=== PATIENT | female | born 1965 | race Caucasian/White ===

== ENCOUNTER → 2017-01-03 | Outpatient (CLI) | payer OTHER ==
[~2017-01-03] MED LIST: ATV/1 PO; CHLO25CA10 PO; CLBCRM30 EXT; CLOB-85 TOP; CYAN100073 PO; CYAN100T PO; CYM/30 PO; DSY100 PO; DSY50 PO; DULO60CA44 PO; FLUT0.15 NAE; FLV1 PO; GABA-113 PO; LEVO25TA5 PO; MULTTAB5 PO; NALT50TA16 PO; NRN100 PO; POTA10TA32 PO; RANITAB6 PO
[2017-01-03 14:45] LABS: BASO % 0.6 %; BASO ABS # 0.04 K/uL (0-0.2); COMPLETE YES; EOS % 10.4 %; HEMATOCRIT 35.8 % (37-47); IG% 0.1 %; LYMPH % 29.5 %; LYMPH ABS # 1.98 K/uL (1.2-3.4); MEAN CELL VOLUME 86.1 fL (80-100); MEAN CORPUSCULAR HEMOGLOBIN 28.4 pg (25-34); MEAN PLATELET VOLUME 9.8 fL (7.4-10.4); MONO % 8.9 %; NEUT % 50.5 %; PLATELET COUNT 247 K/uL (130-400); RED BLOOD COUNT 4.16 M/uL (4.2-5.4); WHITE BLOOD COUNT 6.71 K/uL (4.8-10.8)
[2017-01-03 15:01] LABS: ALT/SGPT 25 U/L (12-78); BLOOD UREA NITROGEN 6 mg/dl (7-18); BUN/CREATININE RATIO 8.1 (10-20); CARBON DIOXIDE 29 mmol/L (21-32); CHLORIDE 104 mmol/L (98-107); CREATININE 0.75 mg/dl (0.60-1.20); GLUCOSE 104 mg/dl (70-99); POTASSIUM 4.2 mmol/L (3.5-5.1); SODIUM 139 mmol/L (136-145)
[2017-01-03 15:11] LABS: ALB/GLOB RATIO 1.1 (0.9-2); ALKALINE PHOSPHATASE 92 U/L (45-117); AST/SGOT 20 U/L (15-37)
== END | disposition home or self-care (01) ==
LOC: C.LAB1850 12:28
PROVIDERS: ATTEND Internal Medicine
DX: E03.9 Hypothyroidism, unspecified (principal); E55.9 Vitamin D deficiency, unspecified; G62.9 Polyneuropathy, unspecified; M21.961 Unspecified acquired deformity of right lower leg

== ENCOUNTER → 2017-01-07 | Outpatient (CLI) | payer OTHER | END | disposition home or self-care (01) | LOC: C.LAB 15:52 | DX: Z02.83 Encounter for blood-alcohol and blood-drug test (principal) ==

== ENCOUNTER → 2017-01-09 | Outpatient (CLI) | payer OTHER ==
--- NOTE | 2017-01-09 13:26 | DIAGNOSTIC IMAGING REPORT ---
Soft tissue neck ULTRASOUND HISTORY: Nodule mass COMPARISON: None. FINDINGS: Relatively large a radiographic area of isoechoic echogenicity measures approximate 14 x 3 cm. This is at the site of clinically palpable nodularity. It is suggestive of lipoma. IMPRESSION: Lipoma of the posterior neck Electronically signed by: Jalen Farah M.D. 01/09/2017 1:24 PM Dictated Date/Time: 01/09/2017 1:18 PM
== END | disposition home or self-care (01) ==
PROVIDERS: ATTEND Internal Medicine
DX: D17.0 Benign lipomatous neoplasm of skin and subcutaneous tissue of head, face and neck (principal)

== ENCOUNTER 2017-01-31 21:11 | Emergency (ER) | payer OTHER ==
[~2017-01-31] VITALS: Ht 165.1 cm; Wt 62.9 kg
[~2017-01-31 21:11] MED LIST changes: -ATV/1 PO; -CHLO25CA10 PO; -CYAN100073 PO; -CYM/30 PO; -DSY50 PO; -NRN100 PO; -RANITAB6 PO
[2017-01-31 21:29] VITALS: TEMP 36.8
[2017-01-31] MEDS ORDERED: SODIUM CHLORIDE 0.9% 1000ML 1,000 ML IV STA (21:53)
--- NOTE | 2017-01-31 21:54 | EMERGENCY ROOM VISIT NOTE ---
History Report prepared by Marcelloibtabatha: Zackery Carrera Under the Supervision of: Dr. Franky Vizcarra D.O. First contact with patient: 21:48 Chief Complaint: ALCOHOL OVERDOSE Stated Complaint: ALCOHOL Nursing Triage Summary: Arrived via ALS. Patient crying. Info received from EMS who received info from patients mother who is no longer able to care for patient. Patient has been in several rehabs and came back home to live with mother recently. Patient bought alcohol on friday and has not been out of her bedroom since. Patient appears to be intoxicated currently. History of Present Illness The patient is a 51 year old female who presents to the Emergency Room with complaints of an acute alcohol overdose that occurred tonight. Nursing notes indicate that the patient came to the ED because her mother can no longer take care of her. The patient has a history of alcoholism and has been in rehab numerous times. The patient refuses to answer further questions. History is limited secondary to noncooperation. Source of History: nursing staff History Limited By: other (noncooperation) Onset: tonight Position: other (global) Quality: other (alcohol overdose) Timing: other (acute) Review of Systems ROS is limited secondary to noncooperation. Past Medical & Surgical Medical Problems: (1) Alcohol use disorder (2) Alcoholism (3) Anxiety (4) Hypothyroidism (5) Major depressive disorder, recurrent episode with anxious distress (6) Neuropathy (7) Nicotine dependence (8) Psoriasis (9) Urinary tract infection (10) Vitamin D deficiency Family History FH: cancer FH: heart disease Hypertension Social History Smoking Status: Current Every Day Smoker Alcohol Use: heavy Marital Status: Occupation Status: unemployed Current/Historical Medications Unable to Obtain Active Prescriptions or Reported Meds Allergies Coded Allergies: Haloperidol (Verified Allergy, Severe, MAKES PT ACT OUT,EFFECTS PERSONALITY, 08/15/16) Lorazepam (Verified Allergy, Severe, AFFECTS THE WAY SHE ACTS, 08/15/16) Physical Exam Vital Signs Date Time Temp Pulse Resp B/P Pulse Ox O2 Delivery O2 Flow Rate FiO2 01/31/17 22:22 108 128/99 112 146/86 01/31/17 22:06 96 Room Air 01/31/17 22:06 95 Room Air 01/31/17 21:29 36.8 109 15 148/98 96 Room Air 01/31/17 21:27 103 Physical Exam GENERAL: Avoidant, nonconversant, noncooperative. Smells of alcohol. HENT: Normocephalic, atraumatic. Oropharynx unremarkable. EYES: Normal conjunctiva. Sclera non-icteric. NECK: Supple. No nuchal rigidity. FROM. No JVD. RESPIRATORY: Clear to auscultation. CARDIAC: Tachycardic, normal rhythm. Extremities warm and well perfused. Pulses equal. ABDOMEN: Soft, non-distended. No tenderness to palpation. No rebound or guarding. No masses. RECTAL: Deferred. MUSCULOSKELETAL: Chest examination reveals no tenderness. The back is symmetrical on inspection without obvious abnormality. There is no CVA tenderness to palpation. No joint edema. LOWER EXTREMITIES: Calves are equal size bilaterally and non-tender. No edema. No discoloration. NEURO: Normal sensorium. No sensory or motor deficits noted. SKIN: No rash or jaundice noted. Medical Decision & Procedures Laboratory Results 01/31/17 20:56 Red Blood Count 5.34, Mean Corpuscular Volume 83.1, Mean Corpuscular Hemoglobin 28.7, Mean Corpuscular Hemoglobin Concent 34.5, Mean Platelet Volume 8.4, Neutrophils (%) (Auto) 44.2, Lymphocytes (%) (Auto) 47.8, Monocytes (%) (Auto) 5.1, Eosinophils (%) (Auto) 1.2, Basophils (%) (Auto) 1.4, Neutrophils # (Auto) 4.35, Lymphocytes # (Auto) 4.71, Monocytes # (Auto) 0.50, Eosinophils # (Auto) 0.12, Basophils # (Auto) 0.14 01/31/17 20:56 Test 01/31/17 20:56 01/31/17 22:09 01/31/17 22:30 White Blood Count 9.85 K/uL (4.8-10.8) Red Blood Count 5.34 M/uL (4.2-5.4) Hemoglobin 15.3 g/dL (12.0-16.0) Hematocrit 44.4 % (37-47) Mean Corpuscular Volume 83.1 fL (80-100) Mean Corpuscular Hemoglobin 28.7 pg (25-34) Mean Corpuscular Hemoglobin Concent 34.5 g/dl (32-36) Platelet Count 309 K/uL (130-400) Mean Platelet Volume 8.4 fL (7.4-10.4) Neutrophils (%) (Auto) 44.2 % Lymphocytes (%) (Auto) 47.8 % Monocytes (%) (Auto) 5.1 % Eosinophils (%) (Auto) 1.2 % Basophils (%) (Auto) 1.4 % Neutrophils # (Auto) 4.35 K/uL (1.4-6.5) Lymphocytes # (Auto) 4.71 K/uL (1.2-3.4) Monocytes # (Auto) 0.50 K/uL (0.11-0.59) Eosinophils # (Auto) 0.12 K/uL (0-0.5) Basophils # (Auto) 0.14 K/uL (0-0.2) RDW Standard Deviation 49.0 fL (36.4-46.3) RDW Coefficient of Variation 16.3 % (11.5-14.5) Immature Granulocyte % (Auto) 0.3 % Immature Granulocyte # (Auto) 0.03 K/uL (0.00-0.02) Anion Gap 16.0 mmol/L (3-11) Est Creatinine Clear Calc Drug Dose 78.8 ml/min Estimated GFR () 105.3 Estimated GFR (Non- 90.8 BUN/Creatinine Ratio 14.5 (10-20) Calcium Level 8.9 mg/dl (8.5-10.1) Total Bilirubin 0.6 mg/dl (0.2-1) Direct Bilirubin 0.2 mg/dl (0-0.2) Aspartate Amino Transf (AST/SGOT) 26 U/L (15-37) Alanine Aminotransferase (ALT/SGPT) 22 U/L (12-78) Alkaline Phosphatase 124 U/L (45-117) Total Protein 8.0 gm/dl (6.4-8.2) Albumin 3.9 gm/dl (3.4-5.0) Bedside Glucose 82 mg/dl (70-90) Ethyl Alcohol mg/dL 320.0 mg/dl (0-3) Laboratory results reviewed by me Medications Administered Medications (Trade) Dose Ordered Sig/Gisselle Route Start Time Stop Time Status Last Admin Dose Admin Sodium Chloride (Nss 1000ml) 1,000 ml @ 999 mls/hr Q1H1M STAT IV 01/31/17 21:53 01/31/17 22:53 DC 01/31/17 22:31 999 MLS/HR ECG Indication: tachycardia Rate (beats per minute): 105 Rhythm: sinus tachycardia Findings: no acute ischemic change, no ectopy, other (normal axis normal intervals) ED Course 2149: The patient was evaluated in room A4b. A complete history and physical exam was performed. 2152: NSS 1000 ml @ 999 mls/hr. 0030: Patient was seen by the manager case management. She does not wish to go to rehab but is willing to see a drug and alcohol counselor. 0038: Per manager case management, the patient did not give permission to call her mother or . 0045: Checked on the patient and discussed her options. Medical Decision Differential diagnosis includes psychiatric, alcohol intoxication, alcohol abuse , drug abuse. Patient in no current distress no suicidal or homicidal ideation. Reassessment patient is now alert speaking to me has called her mother and her mother will take her back home. Patient will follow-up with alcohol rehabilitation counselor on Friday. Patient has been seen by Judith our manager case management Impression Primary Impression: Alcohol use disorder Additional Impressions: Alcohol abuse Alcohol use with intoxication Scribe Attestation The scribe's documentation has been prepared under my direction and personally reviewed by me in its entirety. I confirm that the note above accurately reflects all work, treatment, procedures, and medical decision making performed by me. Departure Information Dispostion Home / Self-Care Prescriptions Unable to Obtain Active Prescriptions or Reported Meds Referrals RV. Mobley MD (PCP) Patient Instructions Alcohol Abuse - [facility], Alcohol Intoxication - [facility], [facility] Health Problem Qualifiers
[2017-01-31 22:05] VITALS: Ht 165.1 cm; Wt 62.9 kg
[2017-01-31 22:06] VITALS: O2SAT 96
[2017-01-31 22:18] LABS: BASO % 1.4 %; BASO ABS # 0.14 K/uL (0-0.2); COMPLETE YES; EOS % 1.2 %; HEMATOCRIT 44.4 % (37-47); IG% 0.3 %; LYMPH % 47.8 %; LYMPH ABS # 4.71 K/uL (1.2-3.4); MEAN CELL VOLUME 83.1 fL (80-100); MEAN CORPUSCULAR HEMOGLOBIN 28.7 pg (25-34); MEAN CORPUSCULAR HGB CONC 34.5 g/dl (32-36); MEAN PLATELET VOLUME 8.4 fL (7.4-10.4); MONO % 5.1 %; NEUT % 44.2 %; PLATELET COUNT 309 K/uL (130-400); RED BLOOD COUNT 5.34 M/uL (4.2-5.4); WHITE BLOOD COUNT 9.85 K/uL (4.8-10.8)
[2017-01-31 22:23] LABS: BUN/CREATININE RATIO 14.5 (10-20); CREATININE 0.76 mg/dl (0.60-1.20); POTASSIUM 3.6 mmol/L (3.5-5.1)
[2017-01-31 22:54] LABS: CALCIUM 8.9 mg/dl (8.5-10.1)
[2017-02-01 01:13] VITALS: BP 139/91; PULSE 117; O2SAT 93
== END 2017-02-01 01:15 | disposition home or self-care (01) ==
LOC: EDBD 21:11 → C.EDA 21:12
DX: F10.129 Alcohol abuse with intoxication, unspecified (principal); Y90.8 Blood alcohol level of 240 mg/100 ml or more; R00.0 Tachycardia, unspecified; E03.9 Hypothyroidism, unspecified; F32.9 Major depressive disorder, single episode, unspecified; F41.9 Anxiety disorder, unspecified; F17.200 Nicotine dependence, unspecified, uncomplicated; Z87.440 Personal history of urinary (tract) infections; Z88.8 Allergy status to other drugs, medicaments and biological substances; Z80.9 Family history of malignant neoplasm, unspecified; Z82.49 Family history of ischemic heart disease and other diseases of the circulatory system

== ENCOUNTER 2017-06-13 21:22 | Inpatient (IN) | payer OTHER ==
[~2017-06-13] VITALS: Ht 167.6 cm; Wt 61.5 kg
[2017-06-13] MEDS ORDERED: LORAZEPAM 2 MG/ML 1 ML VIAL IV ONE ×2 (21:25)
--- NOTE | 2017-06-13 22:13 | EMERGENCY ROOM VISIT NOTE ---
History Report prepared by Eliot: August Rod Under the Supervision of: Dr. Franky Vizcarra D.O. First contact with patient: 22:04 Chief Complaint: MENTAL HEALTH EVALUATION Stated Complaint: ALCOHOL OVERDOSE/SUICIDAL STATEMENTS History of Present Illness The patient is a 51 year old female who presents to the Emergency Room for a mental health evaluation. This HPI is limited secondary to the patient's intoxication. She has a past medical history of alcoholism with a past 3 month stay in [facility]. Tonight, she had 3 glasses of chardonnay and asked her mother to take her to the ER. She wants to stop drinking because she believes that she is drinking too much and wants to drink all the time. She notes a suicidal ideation 1 year ago, but she denies any tonight as well as homicidal ideations. She denies any drug use. Source of History: patient History Limited By: intoxication Onset: this evening Position: other (Mental Health) Symptom Intensity: moderate (intoxication) Quality: other (Mental health evaluation) Timing: constant Note: She denies any homicidal ideation or suicidal ideation. Review of Systems ROS is limited secondary to the patient's intoxication. Past Medical & Surgical Medical Problems: (1) Alcohol use disorder (2) Alcoholism (3) Anxiety (4) Hypothyroidism (5) Major depressive disorder, recurrent episode with anxious distress (6) Neuropathy (7) Nicotine dependence (8) Psoriasis (9) Urinary tract infection (10) Vitamin D deficiency Family History FH: cancer FH: heart disease Hypertension Social History Smoking Status: Current Every Day Smoker Alcohol Use: heavy Marital Status: Occupation Status: unemployed Current/Historical Medications Unable to Obtain Active Prescriptions or Reported Meds Allergies Coded Allergies: Haloperidol (Verified Allergy, Severe, MAKES PT ACT OUT,EFFECTS PERSONALITY, 08/15/16) Lorazepam (Verified Allergy, Severe, AFFECTS THE WAY SHE ACTS, 08/15/16) Physical Exam Vital Signs Date Time Temp Pulse Resp B/P (MAP) Pulse Ox O2 Delivery O2 Flow Rate FiO2 06/14/17 02:38 95 18 138/71 96 Room Air 06/14/17 00:30 110 18 142/82 94 Room Air 06/13/17 21:37 89 06/13/17 21:33 37.0 97 14 148/103 94 Room Air Physical Exam GENERAL: Awake, alert, intoxicated-appearing, in no distress HENT: Normocephalic, atraumatic. Oropharynx unremarkable. EYES: Normal conjunctiva. Sclera non-icteric. NECK: Supple. No nuchal rigidity. FROM. No JVD. RESPIRATORY: Clear to auscultation. CARDIAC: Regular rate, normal rhythm. Extremities warm and well perfused. Pulses equal. ABDOMEN: Soft, non-distended. No tenderness to palpation. No rebound or guarding. No masses. RECTAL: Deferred. MUSCULOSKELETAL: Chest examination reveals no tenderness. The back is symmetrical on inspection without obvious abnormality. There is no CVA tenderness to palpation. No joint edema. LOWER EXTREMITIES: Calves are equal size bilaterally and non-tender. No edema. No discoloration. NEURO: Normal sensorium. No sensory or motor deficits noted. SKIN: No rash or jaundice noted. PSYCH: Notes SI 1 year ago, mildly anxious, does not make direct eye contact, alcohol on breath. Medical Decision & Procedures Laboratory Results 06/13/17 22:35 Red Blood Count 4.67, Mean Corpuscular Volume 88.4, Mean Corpuscular Hemoglobin 30.6, Mean Corpuscular Hemoglobin Concent 34.6, Mean Platelet Volume 9.8, Neutrophils (%) (Auto) 64.3, Lymphocytes (%) (Auto) 27.6, Monocytes (%) (Auto) 5.4, Eosinophils (%) (Auto) 0.8, Basophils (%) (Auto) 1.5, Neutrophils # (Auto) 3.08, Lymphocytes # (Auto) 1.32, Monocytes # (Auto) 0.26, Eosinophils # (Auto) 0.04, Basophils # (Auto) 0.07 06/13/17 22:35 Test 06/13/17 00:00 06/13/17 22:35 Urine Color YELLOW Urine Appearance CLOUDY (CLEAR) Urine pH 5.5 (4.5-7.5) Urine Specific Carbon 1.014 (1.000-1.030) Urine Protein 1+ (NEG) Urine Glucose (UA) NEG (NEG) Urine Ketones NEG (NEG) Urine Occult Blood NEG (NEG) Urine Nitrite NEG (NEG) Urine Bilirubin NEG (NEG) Urine Urobilinogen NEG (NEG) Urine Leukocyte Esterase NEG (NEG) Urine WBC (Auto) 1-5 /hpf (0-5) Urine RBC (Auto) 0-4 /hpf (0-4) Urine Hyaline Casts (Auto) 0 /lpf (0-5) Urine Epithelial Cells (Auto) >30 /lpf (0-5) Urine Bacteria (Auto) NEG (NEG) Urine Opiates Screen NEG (NEG) Urine Methadone, Qualitative NEG (NEG) Urine Barbiturates NEG (NEG) Urine Phencyclidine (PCP) Level NEG (NEG) Ur Amphetamine/Methamphetamine NEG (NEG) MDMA (Ecstasy) Screen NEG (NEG) Urine Benzodiazepines Screen NEG (NEG) Urine Cocaine Metabolite NEG (NEG) Urine Marijuana (THC) NEG (NEG) White Blood Count 4.79 K/uL (4.8-10.8) Red Blood Count 4.67 M/uL (4.2-5.4) Hemoglobin 14.3 g/dL (12.0-16.0) Hematocrit 41.3 % (37-47) Mean Corpuscular Volume 88.4 fL (80-100) Mean Corpuscular Hemoglobin 30.6 pg (25-34) Mean Corpuscular Hemoglobin Concent 34.6 g/dl (32-36) Platelet Count 94 K/uL (130-400) Mean Platelet Volume 9.8 fL (7.4-10.4) Neutrophils (%) (Auto) 64.3 % Lymphocytes (%) (Auto) 27.6 % Monocytes (%) (Auto) 5.4 % Eosinophils (%) (Auto) 0.8 % Basophils (%) (Auto) 1.5 % Neutrophils # (Auto) 3.08 K/uL (1.4-6.5) Lymphocytes # (Auto) 1.32 K/uL (1.2-3.4) Monocytes # (Auto) 0.26 K/uL (0.11-0.59) Eosinophils # (Auto) 0.04 K/uL (0-0.5) Basophils # (Auto) 0.07 K/uL (0-0.2) RDW Standard Deviation 59.7 fL (36.4-46.3) RDW Coefficient of Variation 18.6 % (11.5-14.5) Immature Granulocyte % (Auto) 0.4 % Immature Granulocyte # (Auto) 0.02 K/uL (0.00-0.02) Platelet Estimate DECREASED Red Blood Cell Morphology Unremarkable Anion Gap 14.0 mmol/L (3-11) Est Creatinine Clear Calc Drug Dose 90.2 ml/min Estimated GFR () 116.8 Estimated GFR (Non- 100.8 BUN/Creatinine Ratio 12.9 (10-20) Calcium Level 8.8 mg/dl (8.5-10.1) Total Bilirubin 0.7 mg/dl (0.2-1) Aspartate Amino Transf (AST/SGOT) 191 U/L (15-37) Alanine Aminotransferase (ALT/SGPT) 95 U/L (12-78) Alkaline Phosphatase 169 U/L (45-117) Total Protein 7.8 gm/dl (6.4-8.2) Albumin 3.9 gm/dl (3.4-5.0) Globulin 3.9 gm/dl (2.5-4.0) Albumin/Globulin Ratio 1.0 (0.9-2) Thyroid Stimulating Hormone (TSH) 1.770 uIu/ml (0.300-4.500) Salicylates Level 2.0 mg/dl (2.8-20) Acetaminophen Level < 2 ug/ml (10-30) Ethyl Alcohol mg/dL 371.0 mg/dl (0-3) Laboratory results reviewed by me Medications Administered Medications (Trade) Dose Ordered Sig/Gisselle Route Start Time Stop Time Status Last Admin Dose Admin Ondansetron HCl (Zofran Odt) 4 mg STK-MED ONCE .ROUTE 06/14/17 02:15 06/14/17 02:16 DC 06/14/17 02:16 4 MG ED Course 2204: The patient was evaluated in room A10. A complete history and physical exam was performed. 0215: Ordered Ondansetron HCl 4 mg .ROUTE 0630: The patient was signed out to Dr. Marlow at the change in shifts. Medical Decision Differential diagnoses include alcohol intoxication, alcohol abuse, substance abuse, dehydration, suicidal ideation, and psychiatric disorder. Remained stable condition throughout out emergency room evaluation 5:45 AM resting in no distress. Patient will be evaluated by the crisis counselor for further treatment Medication Reconcilliation Current Medication List: was personally reviewed by me Blood Pressure Screening Patient's blood pressure: Elevated blood pressure Blood pressure disposition: Elevated BP felt to be situational Impression Primary Impression: Alcohol use disorder Additional Impression: Depression Scribe Attestation The scribe's documentation has been prepared under my direction and personally reviewed by me in its entirety. I confirm that the note above accurately reflects all work, treatment, procedures, and medical decision making performed by me. Departure Information Dispostion Still a Patient Prescriptions Unable to Obtain Active Prescriptions or Reported Meds Referrals RV. Mobley MD (PCP) Forms HOME CARE DOCUMENTATION FORM, IMPORTANT VISIT INFORMATION Patient Instructions [facility] Health Problem Qualifiers
[2017-06-13 23:18] LABS: BUN/CREATININE RATIO 12.9 (10-20); CALCIUM 8.8 mg/dl (8.5-10.1); CREATININE 0.69 mg/dl (0.60-1.20); POTASSIUM 3.9 mmol/L (3.5-5.1)
[2017-06-13 23:27] LABS: HEMATOCRIT 41.3 % (37-47); MEAN CELL VOLUME 88.4 fL (80-100); MEAN CORPUSCULAR HEMOGLOBIN 30.6 pg (25-34); MEAN CORPUSCULAR HGB CONC 34.6 g/dl (32-36); MEAN PLATELET VOLUME 9.8 fL (7.4-10.4); PLATELET COUNT 94 K/uL (130-400); RED BLOOD COUNT 4.67 M/uL (4.2-5.4); WHITE BLOOD COUNT 4.79 K/uL (4.8-10.8)
[2017-06-13 23:29] LABS: THYROID STIMULATING HORMONE 1.77 uIu/ml (0.300-4.500)
[2017-06-13 23:30] LABS: ACETAMINOPHEN < 2 ug/ml (10-30); BASO % 1.5 %; BASO ABS # 0.07 K/uL (0-0.2); COMPLETE YES; EOS % 0.8 %; IG% 0.4 %; LYMPH % 27.6 %; LYMPH ABS # 1.32 K/uL (1.2-3.4); MONO % 5.4 %; NEUT % 64.3 %; PLT ESTIMATE DECREASED
[2017-06-13 23:58] LABS: MANUAL MICROSCOPIC REQUIRED? NO; REVIEW REQ? NO; URINE APPEARANCE CLOUDY (CLEAR); URINE BILIRUBIN NEG (NEG); URINE COLOR YELLOW; URINE EPITHELIAL CELL AUTO >30 /lpf (0-5); URINE NITRITE NEG (NEG); URINE PH 5.5 (4.5-7.5); URINE SPECIFIC GRAVITY 1.014 (1.000-1.030); UROBILINOGEN NEG (NEG); ZZUR CULT IF INDIC CLEAN CATCH NO
[2017-06-14 00:17] LABS: BENZODIAZEPINE, URINE NEG (NEG); COCAINE,URINE NEG (NEG); PHENCYCLIDINE, URINE NEG (NEG)
[2017-06-14] MEDS ORDERED: ONDANSETRON 4MG OD TAB ONE ×2 (02:15→06:29)
[2017-06-14] MEDS ORDERED: GABA-113 PO (07:37)
[2017-06-14] MEDS ORDERED: LORAZEPAM 1 MG TAB SL STA (07:40)
--- NOTE | 2017-06-14 08:13 | EMERGENCY ROOM VISIT NOTE ---
ED Visit Note First contact with patient: 07:40 51-year-old female with depression was signed off to me from Dr. Vizcarra at change of shift. I reexamined the patient at 08:00. The patient remains depressed but denies suicidal or homicidal ideation. The patient complains of nausea and anxiety. The patient was given Ativan and Zofran. Patient is awaiting further psychiatric evaluation and possible admission. The patient was reevaluated at 2:15. The patient is not suicidal or homicidal. She understands that she needs some help with alcohol and has agreed to a search for a rehabilitation program. The patient was signed out to Dr. Beltrán at change of shift.
[2017-06-14] MEDS ORDERED: ONDANSETRON 4MG OD TAB PO ONE (08:15)
[2017-06-14] MEDS ORDERED: NICOTINE 21 MG/24 HR TDSY ONE (11:14)
[2017-06-14] MEDS ORDERED: PROMETHAZINE HCL 25 MG TAB PO ONE (12:30)
[2017-06-14] MEDS ORDERED: ONDANSETRON 4 MG TAB PO ONE (15:15)
[2017-06-14] MEDS ORDERED: LORAZEPAM 2 MG/ML 1 ML VIAL IV ONE (15:23)
[2017-06-14] MEDS ORDERED: LORAZEPAM 2 MG/ML 1 ML VIAL IV STA (15:23)
[2017-06-14] MEDS ORDERED: MULTI-VITAMIN INFUSION INJ 10 ML, FoLIC ACID INJ 1 MG, THIAMINE HCL INJ 100 MG in SODIU... IV STA (15:53)
--- NOTE | 2017-06-14 15:53 | EMERGENCY ROOM VISIT NOTE ---
ED Visit Note This patient was signed out to me by Dr. Marlow on around 3 PM, at the end of his shift. The patient was awaiting placement at a alcohol and drug rehabilitation facility. The patient, shortly after he left had a tonic-clonic seizure. She was treated with 2 mg of IV Ativan. She was given a banana bag. She will be admitted to the medical service. I spoke with Dr. Leyva about the patient. The patient did not suffer any adverse consequence related to the seizure. She was not injured.
[2017-06-14] MEDS ORDERED: MAGNESIUM HYDROXIDE SUSP 30 ML UDC PO PRN (17:00)
[2017-06-14] MEDS ORDERED: ONDANSETRON INJ 2 MG/ML 2 ML VIAL IV PRN (17:00)
[2017-06-14] MEDS ORDERED: ALUMINUM/MAGNESIUM/SIMETH (MAALOX MAX) 30 ML UDC PO PRN (17:00)
[2017-06-14] MEDS ORDERED: POLYETHYLENE (MIRALAX) 17 GM PACK PO PRN (17:00)
--- NOTE | 2017-06-14 17:29 | History and Physical ---
History & Physical Date & Time of Service: Jun 14, 2017 at 17:09 Chief Complaint: Alcohol Overdose/Suicidal Statements Primary Care Physician: RV. Mobley MD History of Present Illness Source: patient 51 y/o F extensive Hx of ETOH abuse, hypothyroid, neuropathy and possible hep C and uterine CA. Transported to hospital at [facility] due to ETOH abuse, depression and reported suicidal ideation. The pt was assigned to mental health and had stayed in the ER for an extended period as placement was attempted. Several hours after arrival however, she had a witnessed generalized seizure. Admission to medicine was then requested. She denied any current medical issues aside form alcohol abuse and neuropathy. She is a poor historian. She does not recall having a seizure and denies any current symptoms. She admits depression but denies any suicidal ideation. Past Medical/Surgical History Medical Problems: (1) Alcoholism Status: Chronic (2) Anxiety Status: Chronic (3) Neuropathy Status: Chronic (4) Psoriasis Status: Chronic (5) Urinary tract infection Status: Resolved Family History FH: cancer FH: heart disease Hypertension Social History Smoking Status: Current Every Day Smoker Marital Status: Occupational Status: unemployed Allergies Coded Allergies: No Known Allergies (Unverified , 06/14/17) Home Medications Unable to Obtain Active Prescriptions or Reported Meds Review of Systems Constitutional: No fever, No chills, No sweats Eyes: No worsening of vision ENT: No hearing loss, No unusual epistaxis, No nasal symptoms Respiratory: No cough, No sputum, No wheezing Cardiovascular: No chest pain, No orthopnea, No PND Abdomen: No pain, No nausea, No vomiting Musculoskeletal: No joint pain Genitourinary - Female: No dysuria, No urinary frequency Neurologic: + problem reported (Witnessed weizure as above), No memory loss, No paralysis, No weakness Psychiatric: + depression symptoms, + anhedonism, + anxiety, + insomnia, + substance abuse Endocrine: No fatigue Hematologic / Lymphatic: No abnormal bleeding/bruising Integumentary: No rash Allergic / Immunologic: No environmental allergies Physical Exam Vital Signs Date Time Temp Pulse Resp B/P (MAP) Pulse Ox O2 Delivery O2 Flow Rate FiO2 06/14/17 16:30 109 18 131/89 94 Room Air 06/14/17 16:00 109 22 139/94 95 Room Air 06/14/17 15:26 106 18 175/98 99 Nasal Cannula 1.0 06/14/17 15:26 107 06/14/17 14:00 103 18 98 Room Air 06/14/17 12:11 105 20 122/82 99 Room Air 06/14/17 10:46 110 06/14/17 09:49 120 18 141/91 98 Room Air 06/14/17 06:35 80 18 125/76 99 Room Air 06/14/17 04:30 87 18 118/78 98 Room Air 06/14/17 02:38 95 18 138/71 96 Room Air 06/14/17 00:30 110 18 142/82 94 Room Air 06/13/17 21:37 89 06/13/17 21:33 37.0 97 14 148/103 94 Room Air General Appearance: WD/WN, no apparent distress Head: normocephalic Eyes: normal inspection ENT: normal ENT inspection, pharynx normal Neck: supple, no JVD Respiratory/Chest: chest non-tender, lungs clear, normal breath sounds Cardiovascular: regular rate, rhythm, no edema, no gallop Abdomen/GI: normal bowel sounds, non tender, soft Back: normal inspection, no CVA tenderness, no muscle spasm, normal range of motion Extremities/Musculoskelatal: normal inspection Neurologic/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: 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 tested, no motor/sensory deficits, alert, normal mood/affect, normal reflexes, oriented x 3 Skin: normal color, warm/dry, no rash Diagnostics Laboratory Results Results Past 24 Hours Test 06/13/17 22:35 06/14/17 15:29 06/14/17 17:05 Range/Units White Blood Count 4.79 4.8-10.8 K/uL Red Blood Count 4.67 4.2-5.4 M/uL Hemoglobin 14.3 12.0-16.0 g/dL Hematocrit 41.3 37-47 % Mean Corpuscular Volume 88.4 80-100 fL Mean Corpuscular Hemoglobin 30.6 25-34 pg Mean Corpuscular Hemoglobin Concent 34.6 32-36 g/dl Platelet Count 94 130-400 K/uL Mean Platelet Volume 9.8 7.4-10.4 fL Neutrophils (%) (Auto) 64.3 % Lymphocytes (%) (Auto) 27.6 % Monocytes (%) (Auto) 5.4 % Eosinophils (%) (Auto) 0.8 % Basophils (%) (Auto) 1.5 % Neutrophils # (Auto) 3.08 1.4-6.5 K/uL Lymphocytes # (Auto) 1.32 1.2-3.4 K/uL Monocytes # (Auto) 0.26 0.11-0.59 K/uL Eosinophils # (Auto) 0.04 0-0.5 K/uL Basophils # (Auto) 0.07 0-0.2 K/uL RDW Standard Deviation 59.7 36.4-46.3 fL RDW Coefficient of Variation 18.6 11.5-14.5 % Immature Granulocyte % (Auto) 0.4 % Immature Granulocyte # (Auto) 0.02 0.00-0.02 K/uL Platelet Estimate DECREASED Red Blood Cell Morphology Unremarkable Sodium Level 137 136-145 mmol/L Potassium Level 3.9 3.5-5.1 mmol/L Chloride Level 99 98-107 mmol/L Carbon Dioxide Level 24 21-32 mmol/L Anion Gap 14.0 3-11 mmol/L Blood Urea Nitrogen 9 7-18 mg/dl Creatinine 0.69 0.60-1.20 mg/dl Est Creatinine Clear Calc Drug Dose 90.2 ml/min Estimated GFR () 116.8 Estimated GFR (Non- 100.8 BUN/Creatinine Ratio 12.9 10-20 Random Glucose 99 70-99 mg/dl Calcium Level 8.8 8.5-10.1 mg/dl Total Bilirubin 0.7 0.2-1 mg/dl Aspartate Amino Transf (AST/SGOT) 191 15-37 U/L Alanine Aminotransferase (ALT/SGPT) 95 12-78 U/L Alkaline Phosphatase 169 45-117 U/L Total Protein 7.8 6.4-8.2 gm/dl Albumin 3.9 3.4-5.0 gm/dl Globulin 3.9 2.5-4.0 gm/dl Albumin/Globulin Ratio 1.0 0.9-2 Thyroid Stimulating Hormone (TSH) 1.770 0.300-4.500 uIu/ml Salicylates Level 2.0 2.8-20 mg/dl Acetaminophen Level < 2 10-30 ug/ml Ethyl Alcohol mg/dL 371.0 0-3 mg/dl Bedside Glucose 197 70-90 mg/dl Impression Assessment and Plan 51 y/o F extensive Hx of ETOH abuse, hypothyroid, neuropathy and possible hep C and uterine CA. Transported to hospital at [facility] due to ETOH abuse, depression and reported suicidal ideation. The pt was assigned to mental health and had stayed in the ER for an extended period as placement was attempted. Several hours after arrival however, she had a witnessed generalized seizure. Admission to medicine was then requested. She denied any current medical issues aside form alcohol abuse and neuropathy. She is a poor historian. She does not recall having a seizure and denies any current symptoms. She admits depression but denies any suicidal ideation. Per family, she has not complied with any medications recently 1) ETOH withdrawal with seizure. Pt placed on TID Librium, Ativan as needed. Will receive IVF, daily banana bag. Will likely need placement for inpatient therapy. We have restarted her Rosa Isela as abrupt cessation may have contributed to her withdrawal. 2) Suicidal ideation - as reported by family. Pt placed on 1 to 1 - mental health eval pending. 3) Hypothyroidism is reported on previous admission - TSH is WNL - can f/u as outpt. 4) Neuropathy - restarted Gabapentin at 100 TID 5) Reported uterine CA and Hep C per family - does not appear on previous records - will be screened and can f/u with PCP on discharge. 6) High glu - may be result of seizure - check A1c - Q6h POC without coverage requested as we have not placed glu in IVF and she is at risk of hypoglycemia. Full code - SCDs Total time for this admit including review of labs, meds, records - discussion with pt and ER attending - 34 min Level of Care Telemetry Resuscitation Status FULL RESUSCITATION VTE Prophylaxis VTE Risk Assessment Done? Y/N: Yes Risk Level: Low Given or contraindicated: SCD's
[2017-06-14 18:15] VITALS: BP 132/87; PULSE 106; TEMP 38.3; O2SAT 94
[2017-06-14 18:24] VITALS: BP 132/87; PULSE 106; TEMP 38.3; O2SAT 94; Ht 167.6 cm; Wt 61.5 kg
[2017-06-14] MEDS ORDERED: NSS + 20MEQ KCL 1000ML 1,000 ML IV SCH (19:00)
[2017-06-14] MEDS: LORAZEPAM 2 MG/ML 1 ML VIAL IV PRN ×2 (19:33→22:35)
[2017-06-14] MEDS ORDERED: IV FLUIDS COMPLETED PRN (20:30)
[2017-06-14] MEDS: CHLORDIAZEPOXIDE 10 MG CAP PO SCH (20:37)
[2017-06-14] MEDS: GABAPENTIN 100 MG CAP PO SCH (20:37)
[2017-06-14 22:58] VITALS: BP 128/93; PULSE 110; TEMP 37.1; O2SAT 95
[2017-06-15 03:07] VITALS: BP 127/83; PULSE 111; TEMP 37.3; O2SAT 96
[2017-06-15] MEDS ORDERED: GABAPENTIN 100 MG CAP PO STA (03:11)
[2017-06-15 07:04] VITALS: BP 132/90; PULSE 95; TEMP 37; O2SAT 97
[2017-06-15] MEDS: CHLORDIAZEPOXIDE 10 MG CAP PO SCH ×3 (07:29→20:19)
[2017-06-15] MEDS: GABAPENTIN 100 MG CAP PO SCH ×3 (07:30→20:09)
[2017-06-15] MEDS ORDERED: NICOTINE 21 MG/24 HR TDSY TD SCH (09:00)
[2017-06-15] MEDS: LORAZEPAM 2 MG/ML 1 ML VIAL IV PRN ×4 (09:27→23:40)
[2017-06-15] MEDS: ACETAMINOPHEN 325 MG TAB PO PRN ×2 (09:27→15:15)
[2017-06-15] MEDS: MULTI-VITAMIN INFUSION INJ 10 ML, THIAMINE HCL INJ 100 MG, FoLIC ACID INJ 1 MG in SODIU... IV SCH (09:30)
[2017-06-15] MEDS: NICOTINE 21 MG/24 HR TDSY TD SCH (10:10)
[2017-06-15 11:09] VITALS: BP 128/88; PULSE 97; TEMP 36.8; O2SAT 98
--- NOTE | 2017-06-15 13:31 | Progress Note ---
Subjective Date of Service: Jun 15, 2017. Subjective pt is awake and alert and non shakey , she is looking for support and help and agreeable to speak to psychiatry, no focal complaints requests nicotine patch Problem List Medical Problems: (1) Alcohol abuse Status: Acute (2) Alcohol use with intoxication Status: Acute (3) Alcoholism Status: Chronic (4) Anxiety Status: Chronic (5) Depression Status: Acute (6) Medication refill Status: Acute (7) Mood disorder Status: Acute (8) Psoriasis Status: Chronic (9) Suicidal thoughts Status: Acute Review of Systems Constitutional: No fever, No chills Respiratory: No cough, No shortness of breath, No dyspnea on exertion Cardiac: No chest pain, No orthopnea Objective Vital Signs Date Time Temp Pulse Resp B/P (MAP) Pulse Ox O2 Delivery O2 Flow Rate FiO2 06/15/17 07:04 37.0 95 16 132/90 (104) 97 Room Air 06/15/17 04:03 Room Air 06/15/17 03:07 37.3 111 16 127/83 (98) 96 Room Air 06/15/17 00:00 Room Air 06/14/17 22:58 37.1 110 16 128/93 (105) 95 Room Air 06/14/17 20:00 Room Air 06/14/17 18:24 38.3 106 22 132/87 94 Room Air 06/14/17 18:15 38.3 106 22 132/87 (102) 94 Room Air 06/14/17 17:49 101 19 143/88 95 06/14/17 16:30 109 18 131/89 94 Room Air 06/14/17 16:00 109 22 139/94 95 Room Air 06/14/17 15:26 106 18 175/98 99 Nasal Cannula 1.0 06/14/17 15:26 107 06/14/17 14:00 103 18 98 Room Air 06/14/17 12:11 105 20 122/82 99 Room Air 06/14/17 10:46 110 06/14/17 09:49 120 18 141/91 98 Room Air Physical Exam General Appearance: WD/WN, no apparent distress Eyes: PERRL, EOMI Respiratory/Chest: chest non-tender, lungs clear, normal breath sounds Cardiovascular: regular rate, rhythm, no murmur Abdomen: normal bowel sounds, non tender, soft Extremities: no pedal edema, no calf tenderness Laboratory Results Last 24 Hours Test 06/14/17 15:29 06/14/17 17:05 06/14/17 19:51 06/15/17 06:38 Bedside Glucose 197 mg/dl 106 mg/dl 133 mg/dl Assessment and Plan 51 y/o F extensive Hx of ETOH abuse here at request of family for help with detox and support during withdrawal, had seizure in ER, hypothyroid, neuropathy and possible hep C and uterine CA. ETOH withdrawal with seizure. TID Librium, Ativan for breakthru symptoms. gabapentin also Suicidal ideation - as reported by family. - mental health eval pending. pt 9/ 10 says she was just talking nonsense Hypothyroidism is reported on previous admission - TSH is WNL - f/u as outpt. Neuropathy - restarted Gabapentin at 100 TIDalso will help with withdrawal symptoms and Sz Reported uterine CA and Hep C per family - does not appear on previous records - will be screened High glu - may be result of seizure -follow
[2017-06-15 16:00] VITALS: BP 146/102; PULSE 89; TEMP 36.9; O2SAT 100
--- NOTE | 2017-06-15 17:17 | Psychiatric Progress Notes ---
Psychiatric Progress Note Date of Service Jun 15, 2017. Notes please see dictated consult Dx: etoh use d/o; etoh induced mood disorder, provisional recs: - pt denying SI but clearly poorly functioning at home and primacy intervention should be etoh cessation. she agrees to inpatient rehab but stipulates (rather illogically and concretely) that she will only go to a program in [place]. - minicog evidenced likely cognitive impairment and she showed visuospatial deficit and executive dysfunction on interview. may be consequence of long standing etoh abuse, post ictal delirium, or etoh withdrawal. - please consider AWSS gabapentin protocol
[2017-06-15 20:03] VITALS: BP 158/107; PULSE 102; TEMP 37; O2SAT 100
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
[2017-06-15] MEDS ORDERED: DiphenhydrAMINE HCL 50 MG/ML VIAL IV STA (23:04)
[2017-06-15 23:37] VITALS: BP 145/98; PULSE 84; TEMP 37.1; O2SAT 99
[2017-06-16] VITALS (7 sets, daily range): BP systolic 129–154; BP diastolic 90–107; PULSE 81–95; TEMP 36.3–37; O2SAT 99–100
[2017-06-16] MEDS: ACETAMINOPHEN 325 MG TAB PO PRN (00:31)
--- NOTE | 2017-06-16 04:56 | Progress Note ---
Progress Note Date of Service Jun 16, 2017. Progress Note Called by RN as patient is having right sided chest pain. EKG and CXR ordered before arrival. Subjective: Pain right sided only, severity 8/10, worse on inspiration and palpation, very painful when she moves, no radiation, no diaphoresis, shortness of breath (although struggling to take a deep breath in. Objective: Vital signs reviewed and within normal limits. She has not desaturated since the start of the pain. CTA, HS1+2, no murmurs, pain is reproducible on palpation (no skin changes or bruising) CXR - no pneumothorax, consolidation or rib fracture seen on the right side. Suspect old rib fractures on left side as patient not having pain there. EKG: similar to previous, RR 82 bpm Assessment & Plan MSK chest pain (likely as a result of trauma during seizure) - treat with ibuprofen, acetaminophen as required. Monitor - if getting worse consider workup for PE but currently no desaturation , calves SNT b/l and not tachycardic
[2017-06-16 06:18] LABS: HEMATOCRIT 31.5 % (37-47); MEAN CELL VOLUME 92.9 fL (80-100); MEAN CORPUSCULAR HEMOGLOBIN 30.1 pg (25-34); MEAN CORPUSCULAR HGB CONC 32.4 g/dl (32-36); MEAN PLATELET VOLUME 9.9 fL (7.4-10.4); PLATELET COUNT 30 K/uL (130-400); RED BLOOD COUNT 3.39 M/uL (4.2-5.4)
[2017-06-16 06:19] LABS: BASO % 0.8 %; BASO ABS # 0.02 K/uL (0-0.2); COMPLETE YES; EOS % 3.6 %; IG% 0.4 %; LARGE PLATELETS 3+; MONO % 6.4 %; NEUT % 60.8 %; PLT ESTIMATE DECREASED
[2017-06-16 06:29] LABS: BUN/CREATININE RATIO 6.7 (10-20); CALCIUM 8.3 mg/dl (8.5-10.1); CREATININE 0.86 mg/dl (0.60-1.20); POTASSIUM 3.3 mmol/L (3.5-5.1)
--- NOTE | 2017-06-16 06:34 | DIAGNOSTIC IMAGING REPORT ---
CHEST ONE VIEW PORTABLE CLINICAL HISTORY: Atypical chest pain COMPARISON STUDY: 08/15/2016 FINDINGS: The cardiac and mediastinal contours are normal. There is no evidence of focal pulmonary consolidation. There is no evidence of failure. No pleural effusions are visualized.[Old left-sided rib fractures are evident. IMPRESSION: No active disease in the chest. Electronically signed by: Blas Schuler M.D. 06/16/2017 6:33 AM Dictated Date/Time: 06/16/2017 6:32 AM
--- NOTE | 2017-06-16 06:47 | DIAGNOSTIC IMAGING REPORT ---
RIGHT RIBS UNILATERAL 4 VIEWS CLINICAL HISTORY: Right-sided rib pain COMPARISON STUDY: No previous studies for comparison. FINDINGS: There is acute fracture of the right ninth posterior lateral rib. There is a right second rib deformity which likely is old. Old healed fractures of the right 10th and 11th and 12th ribs are also evident. No pneumothorax is visualized. There are upper abdominal calcifications. The distribution raises the possibility of chronic pancreatitis. IMPRESSION: 1. Acute fracture of the right ninth rib. No evidence of pneumothorax. 2. Upper abdominal calcifications is a distribution raising the possibility of chronic pancreatitis. Electronically signed by: Blas Schuler M.D. 06/16/2017 6:46 AM Dictated Date/Time: 06/16/2017 6:42 AM
[2017-06-16 06:49] LABS: ESTIMATED AVERAGE GLUCOSE 108 mg/dl; HA1C FLAG Normal (Normal)
--- NOTE | 2017-06-16 08:14 | Hospitalist Progress Note ---
Hospitalist Progress Note Date of Service Jun 16, 2017. (Alba Fall, CECIL) Subjective Pt evaluation today including: conversation w/ patient, physical exam, chart review, lab review, review of studies, review of inpatient medication list Patient seen and evaluated. NSR with occ. PVCs on monitor. No further seizure activity or anxiousness/tremors. When she wakes up she answers appropriately and verbalizes no needs. Reports that the CP from this AM is better but more on her side. She easily falls back asleep. Possibly related to Librium? Would like to go to [place] for rehab. Additional Comments: Limited ROS due to falling asleep. Reports R rib/side pain. Denies N/V. (Alba Fall, CECIL) Medications Current Inpatient Medications Medications (Trade) Dose Ordered Sig/Gisselle Route Start Time Stop Time Status Last Admin Dose Admin Gabapentin (Neurontin Cap) 100 mg TID PO 06/14/17 21:00 07/14/17 20:59 06/16/17 09:32 100 MG Acetaminophen (Tylenol Tab) 650 mg Q4H PRN PO 06/14/17 17:00 07/14/17 16:59 06/16/17 00:31 650 MG Al Hydrox/Mg Hydrox/Simethicone (Maalox Max Susp) 15 ml Q4H PRN PO 06/14/17 17:00 07/14/17 16:59 06/14/17 22:35 15 ML Magnesium Hydroxide (Milk Of Magnesia Susp) 30 ml Q12H PRN PO 06/14/17 17:00 07/14/17 16:59 Ondansetron HCl (Zofran Inj) 4 mg Q6H PRN IV 06/14/17 17:00 07/14/17 16:59 Polyethylene (Miralax Powder Packet) 17 gm DAILY PRN PO 06/14/17 17:00 07/14/17 16:59 Lorazepam (Ativan Inj) 1 mg Q2H PRN IV 06/14/17 17:00 07/14/17 16:59 06/15/17 23:40 1 MG Lorazepam (Ativan Inj) 2 mg Q2H PRN IV 06/14/17 17:00 07/14/17 16:59 06/15/17 20:19 2 MG Multivitamins 10 ml/Thiamine HCl 100 mg/Folic Acid 1 mg/Sodium Chloride 1,011.2 ml @ 200 mls/ hr DAILY IV 06/15/17 09:00 07/15/17 08:59 06/16/17 09:33 200 MLS/HR Miscellaneous (Iv Fluids Completed) 1 ea PRN PRN N/A 06/14/17 20:30 06/14/18 20:29 Nicotine (Nicoderm Cq 21MG Patch) 1 patch QAM TD 06/15/17 09:45 07/15/17 09:44 06/16/17 09:33 1 PATCH Miscellaneous (Remove Nicoderm Patch) 1 ea HS N/A 06/15/17 21:00 07/15/17 20:59 06/15/17 20:19 1 EA Chlordiazepoxide (Librium Cap) 10 mg BID PO 06/16/17 21:00 07/14/17 20:59 UNV (Alba Fall PA-C) Objective Vital Signs Date Time Temp Pulse Resp B/P (MAP) Pulse Ox O2 Delivery O2 Flow Rate FiO2 06/16/17 07:36 36.6 95 20 140/97 (111) 99 Room Air 06/16/17 04:00 Room Air 06/16/17 03:56 37.0 83 17 129/93 (105) 99 Room Air 06/16/17 00:01 Room Air 06/15/17 23:37 37.1 84 17 145/98 (114) 99 Room Air 06/15/17 20:03 37.0 102 18 158/107 (124) 100 Room Air 06/15/17 20:00 Room Air 06/15/17 16:00 36.9 89 18 146/102 (117) 100 Room Air 06/15/17 16:00 Room Air 06/15/17 12:00 Room Air 06/15/17 11:09 36.8 97 20 128/88 (101) 98 Room Air (Alba Fall PA-C) Physical Exam General Appearance: no apparent distress Eyes: sclerae normal ENT: hearing grossly normal Neck: supple, no JVD, trachea midline Respiratory/Chest: lungs clear, normal breath sounds, no respiratory distress, no accessory muscle use Cardiovascular: regular rate, rhythm, no gallop, no murmur Abdomen: normal bowel sounds, non tender, soft Neurologic/Psychiatric: alert, oriented x 3, + pertinent finding (sleepy) Skin: normal color, warm/dry (Alba Fall PA-C) Laboratory Results Last 24 Hours Test 06/16/17 05:23 White Blood Count 2.50 K/uL Red Blood Count 3.39 M/uL Hemoglobin 10.2 g/dL Hematocrit 31.5 % Mean Corpuscular Volume 92.9 fL Mean Corpuscular Hemoglobin 30.1 pg Mean Corpuscular Hemoglobin Concent 32.4 g/dl Platelet Count 30 K/uL Mean Platelet Volume 9.9 fL Neutrophils (%) (Auto) 60.8 % Lymphocytes (%) (Auto) 28.0 % Monocytes (%) (Auto) 6.4 % Eosinophils (%) (Auto) 3.6 % Basophils (%) (Auto) 0.8 % Neutrophils # (Auto) 1.52 K/uL Lymphocytes # (Auto) 0.70 K/uL Monocytes # (Auto) 0.16 K/uL Eosinophils # (Auto) 0.09 K/uL Basophils # (Auto) 0.02 K/uL RDW Standard Deviation 59.2 fL RDW Coefficient of Variation 17.6 % Immature Granulocyte % (Auto) 0.4 % Immature Granulocyte # (Auto) 0.01 K/uL Platelet Estimate DECREASED Large Platelets 3+ Sodium Level 140 mmol/L Potassium Level 3.3 mmol/L Chloride Level 106 mmol/L Carbon Dioxide Level 25 mmol/L Anion Gap 9.0 mmol/L Blood Urea Nitrogen 6 mg/dl Creatinine 0.86 mg/dl Est Creatinine Clear Calc Drug Dose 72.4 ml/min Estimated GFR () 90.7 Estimated GFR (Non- 78.2 BUN/Creatinine Ratio 6.7 Random Glucose 229 mg/dl Calcium Level 8.3 mg/dl Total Bilirubin 1.0 mg/dl Direct Bilirubin 0.4 mg/dl Aspartate Amino Transf (AST/SGOT) 133 U/L Alanine Aminotransferase (ALT/SGPT) 85 U/L Alkaline Phosphatase 144 U/L Total Protein 6.2 gm/dl Albumin 3.1 gm/dl (Alba Fall PA-C) Assessment and Plan Ms. Chiu is a 51 y/o female with PMHx of ETOH Abuse with request for detox and withdrawal support, Hypothyroidism, Neuropathy, Possible Hep C, and Possible Uterine CA. Had witnessed withdrawal seizure in ED ETOH Withdrawal with Seizure: - Daily banana bag - Librium 10 mg BID and taper down with Ativan PRN Suicidal Ideation: - Currently denying SI Thrombocytopenia: - Platelets dropped to 30 with repeat 38 - denies known issues with this - No active bleeding, petechiae, or purpura observed - Possibly from ETOH/Liver disease - no U/S present for liver evaluation - is anemic but fits normocytic/normochromic but given ETOH use may be B12/folate deficiency Hypothyroidism: - Seen on previous admission - TSH now WNL - monitor as outpatient Neuropathy: - Gabapentin 100 mg TID Hyperglycemia: - Random glucose 229 today with A1c 5.4 - continue to monitor DVT Prophylaxis: No chemical means given thrombocytopenia Code Status: FULL RESUSCITATION Disposition: - Per behavioral health - patient now stating she would like to return home - is poorly functioning at home - [address] [facility] stay due to: other (ETOH rehab) Discharge planning: other (ETOH rehab) (Alba Fall, PADeirdreC) Reviewed: Pt Seen/Exam by Me (Trista Swartz, ) History Pt is very anxious and paces the room per nursing. Pt denies feeling any soft of withdrawal. Tolerating PO without issue. Pt had no issues with inpt rehab in [place] during our discussion, however seen by CM just after and is now stating that she wants to go home Agree with HPI/ROS as noted. (Trista Swartz, DO) General Appearance: WD/WN, no apparent distress Respiratory: normal breath sounds, no respiratory distress Cardiovascular: normal peripheral pulses, regular rate, rhythm Gastrointestinal: non tender, soft Neurologic/Psychiatric: alert, oriented x 3 Skin Characteristics: normal color, warm/dry (Trista Swartz, ) Assessment/Plan Agree with plan as outlined above Alcohol related seizures, has not had any since Pt initially requested inpt rehab in [place], however had declined this to CM after agreeing to it with me just prior Psych feels that if pt is not agreeable to inpt rehab, she will need to have inpt psych tx (Trista Swartz, DO)
[2017-06-16] MEDS ORDERED: POTASSIUM CHLORIDE 10 MEQ TABCR PO ONE (08:45)
--- NOTE | 2017-06-16 09:14 | Psychiatric Progress Notes ---
Psychiatric Progress Note Date of Service Jun 16, 2017. Notes ID: Patient reviewed with liaison nurse. Reviewed initial consultation by Dr. Sharma dated 06/15 and 302 petitioning statement no chart from medic. CC: "I just want to go home" HPI: Reviewed with patient that she had made suicidal statements in the context of intoxication and that a decision will need to be made re: disposition when she is medically cleared. Currently her H&H and platelets have dropped from admission and she remains on Librium. Reviewed with patient Dr. Sharma's recommendation for inpatient ETOH rehab and she is not agreeable to that at this time. Reviewed with her that if she is not being discharged to a structured inpatient treatment program, team recommendation will likely be for a few days of inpatient monitoring on a psychiatry unit, preferably on a voluntary commitment. She agains denies SI and shows no evidence of cutting on her arms (old scar). ROS: denies tremors/anxiety, sleep was disrupted, taking PO Vital Signs Past 12 Hours Date Time Temp Pulse Resp B/P (MAP) Pulse Ox O2 Delivery O2 Flow Rate FiO2 06/16/17 07:36 36.6 95 20 140/97 (111) 99 Room Air 06/16/17 04:00 Room Air 06/16/17 03:56 37.0 83 17 129/93 (105) 99 Room Air 06/16/17 00:01 Room Air 06/15/17 23:37 37.1 84 17 145/98 (114) 99 Room Air MSE: alert, somewhat guarded, affect appears depressed, disheveled, minimizing her drinking and the fact she seized. Indifference re: finding out she has a rib fracture, unsure if fell or bumped into counter. Thoughts processes are concrete. 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 There is no evidence of psychosis. Current Inpatient Medications Medications (Trade) Dose Ordered Sig/Gisselle Route Start Time Stop Time Status Last Admin Dose Admin Gabapentin (Neurontin Cap) 100 mg TID PO 06/14/17 21:00 07/14/17 20:59 06/15/17 20:09 100 MG Acetaminophen (Tylenol Tab) 650 mg Q4H PRN PO 06/14/17 17:00 07/14/17 16:59 9/11/17 00:31 650 MG Al Hydrox/Mg Hydrox/Simethicone (Maalox Max Susp) 15 ml Q4H PRN PO 06/14/17 17:00 07/14/17 16:59 06/14/17 22:35 15 ML Magnesium Hydroxide (Milk Of Magnesia Susp) 30 ml Q12H PRN PO 06/14/17 17:00 07/14/17 16:59 Ondansetron HCl (Zofran Inj) 4 mg Q6H PRN IV 06/14/17 17:00 07/14/17 16:59 Polyethylene (Miralax Powder Packet) 17 gm DAILY PRN PO 06/14/17 17:00 07/14/17 16:59 Chlordiazepoxide (Librium Cap) 10 mg TID PO 06/14/17 21:00 07/14/17 20:59 06/15/17 20:19 10 MG Lorazepam (Ativan Inj) 1 mg Q2H PRN IV 06/14/17 17:00 07/14/17 16:59 06/15/17 23:40 1 MG Lorazepam (Ativan Inj) 2 mg Q2H PRN IV 06/14/17 17:00 07/14/17 16:59 06/15/17 20:19 2 MG Multivitamins 10 ml/Thiamine HCl 100 mg/Folic Acid 1 mg/Sodium Chloride 1,011.2 ml @ 200 mls/ hr DAILY IV 06/15/17 09:00 07/15/17 08:59 06/15/17 09:30 200 MLS/HR Miscellaneous (Iv Fluids Completed) 1 ea PRN PRN N/A 06/14/17 20:30 06/14/18 20:29 Nicotine (Nicoderm Cq 21MG Patch) 1 patch QAM TD 06/15/17 09:45 07/15/17 09:44 06/15/17 10:10 1 PATCH Miscellaneous (Remove Nicoderm Patch) 1 ea HS N/A 06/15/17 21:00 07/15/17 20:59 06/15/17 20:19 1 EA Dx: etoh use d/o; etoh induced mood disorder recs: - pt denying SI but clearly poorly functioning at home and primacy intervention should be etoh cessation. She is inconsistent regarding going to rehab as says "this is rehab", reviewed that she is being detox'd on telemetry. I do not anticipate patient would be medically cleared today given review of labs. She is agreeable to our service communicating with her mother as family input important to determination of whether or not she is ultimately commitable. She should not be allowed to leave the hospital AMA as 302 petition remains on chart and dispo uncertain.
[2017-06-16] MEDS: CHLORDIAZEPOXIDE 10 MG CAP PO SCH ×2 (09:32→19:45)
[2017-06-16] MEDS: GABAPENTIN 100 MG CAP PO SCH ×3 (09:32→19:46)
[2017-06-16] MEDS: MULTI-VITAMIN INFUSION INJ 10 ML, THIAMINE HCL INJ 100 MG, FoLIC ACID INJ 1 MG in SODIU... IV SCH (09:33)
[2017-06-16] MEDS: NICOTINE 21 MG/24 HR TDSY TD SCH (09:33)
[2017-06-16 09:50] LABS: HEMATOCRIT 31.5 % (37-47); MEAN CELL VOLUME 93.2 fL (80-100); MEAN CORPUSCULAR HEMOGLOBIN 30.2 pg (25-34); MEAN CORPUSCULAR HGB CONC 32.4 g/dl (32-36); RED BLOOD COUNT 3.38 M/uL (4.2-5.4); WHITE BLOOD COUNT 2.52 K/uL (4.8-10.8)
[2017-06-16 09:53] LABS: MEAN PLATELET VOLUME 11.2 fL (7.4-10.4); PLATELET COUNT 38 K/uL (130-400)
[2017-06-16 10:03] LABS: INR 0.9 (0.9-1.1)
[2017-06-16] MEDS: LORAZEPAM 2 MG/ML 1 ML VIAL IV PRN (13:58)
[2017-06-16] MEDS ORDERED: NURSING VERBAL MED ORDER ONE (17:30)
[2017-06-16] MEDS ORDERED: LOPERAMIDE HCL 2 MG CAP PO SCH (17:30)
[2017-06-17] MEDS ORDERED: LORAZEPAM INJ 2 MG in SYRINGE 1 ML IV PRN (00:30)
[2017-06-17] MEDS: ACETAMINOPHEN 325 MG TAB PO PRN ×3 (00:32→13:31)
[2017-06-17] MEDS: LORAZEPAM INJ 1 MG in SYRINGE 0.5 ML IV PRN ×2 (00:39→20:02)
[2017-06-17 07:37] LABS: HEMATOCRIT 35.3 % (37-47); MEAN CELL VOLUME 93.4 fL (80-100); MEAN CORPUSCULAR HEMOGLOBIN 29.9 pg (25-34); MEAN PLATELET VOLUME 10.1 fL (7.4-10.4); PLATELET COUNT 68 K/uL (130-400); RED BLOOD COUNT 3.78 M/uL (4.2-5.4)
[2017-06-17 08:08] LABS: BUN/CREATININE RATIO 8.4 (10-20); CALCIUM 9.5 mg/dl (8.5-10.1); CREATININE 0.63 mg/dl (0.60-1.20); POTASSIUM 3.5 mmol/L (3.5-5.1)
[2017-06-17] MEDS: GABAPENTIN 100 MG CAP PO SCH ×3 (08:22→19:59)
[2017-06-17] MEDS: CHLORDIAZEPOXIDE 10 MG CAP PO SCH ×2 (08:23→19:59)
[2017-06-17] MEDS: NICOTINE 21 MG/24 HR TDSY TD SCH (08:23)
[2017-06-17 08:29] VITALS: BP 117/84; PULSE 89; TEMP 36.4; O2SAT 99
[2017-06-17] MEDS: MULTI-VITAMIN INFUSION INJ 10 ML, THIAMINE HCL INJ 100 MG, FoLIC ACID INJ 1 MG in SODIU... IV SCH (09:58)
--- NOTE | 2017-06-17 14:58 | Hospitalist Progress Note ---
Hospitalist Progress Note Date of Service Jun 17, 2017. (Alba Fall PA-C) Subjective Pt evaluation today including: conversation w/ patient, physical exam, chart review, lab review, review of studies, conversation w/ curriculum consultant (Psych liasion ), review of inpatient medication list Patient seen and evaluated. No acute events overnight. Ambulating halls and verbalizes no complaints. Appears calm, denies anxiety, and is without tremor. No seizure activity noted. Had a long conversation about care outside of the hospital. Is still adamant about no ETOH rehab. Expresses understanding that she has not been taking care of herself and hasn't been eating well at home. She denies SI. States she feels well and understands drinking is a problem and would like to stop. Patient is competent to make decisions for herself. She does have a POA and co- POA who want her to have treatment. Discussed with patient that she should discuss with her family about options if they are supportive. Unsure if she has good relationships with her family. Did ask the patient if she would like me to talk to her family and give them an update and she stated "I will have to think about it". Constitutional: No fever, No chills, No fatigue Respiratory: No shortness of breath Cardiovascular: No chest pain Abdomen: No pain, No nausea, No vomiting, No diarrhea, No constipation Female : No dysuria Psychiatric: + substance abuse, No anxiety Heme: No abnormal bleeding/bruising Skin: No rash, No bleeding (Alba Fall, SKYLERC) Medications Current Inpatient Medications Medications (Trade) Dose Ordered Sig/Gisselle Route Start Time Stop Time Status Last Admin Dose Admin Gabapentin (Neurontin Cap) 100 mg TID PO 06/14/17 21:00 07/14/17 20:59 06/17/17 13:33 100 MG Acetaminophen (Tylenol Tab) 650 mg Q4H PRN PO 06/14/17 17:00 07/14/17 16:59 06/17/17 13:31 650 MG Al Hydrox/Mg Hydrox/Simethicone (Maalox Max Susp) 15 ml Q4H PRN PO 06/14/17 17:00 07/14/17 16:59 06/14/17 22:35 15 ML Magnesium Hydroxide (Milk Of Magnesia Susp) 30 ml Q12H PRN PO 06/14/17 17:00 07/14/17 16:59 Ondansetron HCl (Zofran Inj) 4 mg Q6H PRN IV 06/14/17 17:00 07/14/17 16:59 Polyethylene (Miralax Powder Packet) 17 gm DAILY PRN PO 06/14/17 17:00 07/14/17 16:59 Lorazepam (Ativan Inj) 1 mg Q2H PRN IV 06/14/17 17:00 07/14/17 16:59 06/15/17 23:40 1 MG Lorazepam (Ativan Inj) 2 mg Q2H PRN IV 06/14/17 17:00 07/14/17 16:59 06/16/17 13:58 2 MG Multivitamins 10 ml/Thiamine HCl 100 mg/Folic Acid 1 mg/Sodium Chloride 1,011.2 ml @ 200 mls/ hr DAILY IV 06/15/17 09:00 07/15/17 08:59 06/17/17 09:58 200 MLS/HR Miscellaneous (Iv Fluids Completed) 1 ea PRN PRN N/A 06/14/17 20:30 06/14/18 20:29 Nicotine (Nicoderm Cq 21MG Patch) 1 patch QAM TD 06/15/17 09:45 07/15/17 09:44 06/17/17 08:23 1 PATCH Miscellaneous (Remove Nicoderm Patch) 1 ea HS N/A 06/15/17 21:00 07/15/17 20:59 06/16/17 21:26 1 EA Chlordiazepoxide (Librium Cap) 10 mg BID PO 06/16/17 20:00 07/14/17 20:59 06/17/17 08:23 10 MG Lorazepam 1 mg/ Syringe 1 ml @ 1 mls/min Q2H PRN IV 06/17/17 00:30 07/17/17 00:29 06/17/17 00:39 1 MLS/MIN Lorazepam 2 mg/ Syringe 2 ml @ 1 mls/min Q2H PRN IV 06/17/17 00:30 07/17/17 00:29 (Alba Fall, CECIL) Objective Vital Signs Date Time Temp Pulse Resp B/P (MAP) Pulse Ox O2 Delivery O2 Flow Rate FiO2 06/17/17 10:29 Room Air 06/17/17 08:29 36.4 89 16 117/84 (95) 99 Room Air 06/17/17 00:00 Room Air 06/16/17 23:19 36.4 84 18 140/90 (107) 100 06/16/17 17:32 36.3 85 16 141/93 (109) 100 Room Air 06/16/17 17:09 36.4 81 18 100 1.0 06/16/17 16:00 Room Air 06/16/17 15:34 36.4 81 18 154/107 (123) 100 Room Air (Alba Fall PA-C) Physical Exam General Appearance: no apparent distress, + thin Eyes: sclerae normal ENT: hearing grossly normal Neck: supple, no JVD, trachea midline Respiratory/Chest: lungs clear, normal breath sounds, no respiratory distress, no accessory muscle use Cardiovascular: regular rate, rhythm, no gallop, no murmur Abdomen: normal bowel sounds, non tender, soft Extremities: no pedal edema Neurologic/Psychiatric: alert, oriented x 3 Skin: normal color, warm/dry, no rash (Alba Fall, SKYLERC) Laboratory Results Last 24 Hours Test 06/17/17 06:58 White Blood Count 4.00 K/uL Red Blood Count 3.78 M/uL Hemoglobin 11.3 g/dL Hematocrit 35.3 % Mean Corpuscular Volume 93.4 fL Mean Corpuscular Hemoglobin 29.9 pg Mean Corpuscular Hemoglobin Concent 32.0 g/dl RDW Standard Deviation 59.1 fL RDW Coefficient of Variation 17.3 % Platelet Count 68 K/uL Mean Platelet Volume 10.1 fL Sodium Level 141 mmol/L Potassium Level 3.5 mmol/L Chloride Level 109 mmol/L Carbon Dioxide Level 26 mmol/L Anion Gap 6.0 mmol/L Blood Urea Nitrogen 5 mg/dl Creatinine 0.63 mg/dl Est Creatinine Clear Calc Drug Dose 98.8 ml/min Estimated GFR () 120.4 Estimated GFR (Non- 103.9 BUN/Creatinine Ratio 8.4 Random Glucose 106 mg/dl Calcium Level 9.5 mg/dl (Alba Fall PA-C) Assessment and Plan Ms. Chiu is a 51 y/o female with PMHx of ETOH Abuse with request for detox and withdrawal support, Hypothyroidism, Neuropathy, Possible Hep C, and Possible Uterine CA. Had witnessed withdrawal seizure in ED ETOH Withdrawal with Seizure: - Daily banana bag - Librium 10 mg BID and taper down with Ativan PRN Suicidal Ideation: - Currently denying SI Pancytopenic: - Platelets slowly improving - No active bleeding, petechiae, or purpura observed - Likely from ETOH/Liver disease - no U/S present for liver evaluation - is anemic but fits normocytic/normochromic but given ETOH use may be B12/folate deficiency Hypothyroidism: - Seen on previous admission - TSH now WNL - monitor as outpatient Neuropathy: - Gabapentin 100 mg TID Hyperglycemia: - Random glucose 229 today with A1c 5.4 - continue to monitor DVT Prophylaxis: No chemical means given thrombocytopenia Code Status: FULL RESUSCITATION Disposition: - Medically is optimal for D/C with recheck CBC in next few days - Socially - patient refuses inpatient ETOH rehab and is not suicidal and is competent to make decisions but family requesting treatment Discharge planning: uncertain (Alba Fall, PADeirdreC) Reviewed: Pt Seen/Exam by Me (Trista Swartz, ) History Pt is feeling much improved. She has been ambulating in the halls all day and "eating like a pig". No further diarrhea. No shaking. Anxiety is better. "I' ve got it together, girl." Denies that her SI threats on admission were of true intent. Does not want to pursue inpt rehab due to perception that it did not help her in the past. Does not feel she needs inpt psych care. (Trista Swartz, DO) General Appearance: WD/WN, no apparent distress Respiratory: normal breath sounds, no respiratory distress Cardiovascular: normal peripheral pulses, regular rate, rhythm Gastrointestinal: non tender, soft Extremities: non-tender, no pedal edema Neurologic/Psychiatric: alert, normal mood/affect, oriented x 3 Skin Characteristics: normal color, warm/dry (Trista Swartz, ) Assessment/Plan Agree with plan as outlined above Alcohol related seizures, has not had any since Pt initially requested inpt rehab in [place], however now declines this and inpt psych tx Psych is assessing pt in the AM Diarrhea yesterday has resolved, cdiff neg Pt advised that only 1 person can be designated POA and that the most recently signed paperwork is that which will be honored. Requesting new forms and nursing to provide. Advised her to discuss this with her sister and mother so that people are aware of status. (Trista Swartz, DO)
[2017-06-17 15:07] VITALS: BP 139/98; PULSE 78; TEMP 36.8; O2SAT 99
--- NOTE | 2017-06-17 18:39 | Psychiatric Progress Notes ---
Psychiatric Progress Note Date of Service Jun 17, 2017. Notes ID: Patient reviewed with liaison nurse. Reviewed initial consultation by Dr. Sharma dated 06/15 and 302 petitioning statement no chart from medic. CC: "I need to move away from my family" HPI: Days on her spoke with patient's family. Patient's mother is not willing to have patient return home. Patient continues to be unwilling to agree to our recommendation of inpatient ETOH rehab. Patient continues to deny suicidal ideation. She denies any history of suicide attempts. She does admit that she does not recall things that happened when she is intoxicated. Patient reports that she had seen Dr. Parra for psychiatric treatment however she does not remember the last time she was there and does not have a follow-up appointment. Patient reports that he prescribed gabapentin. She agreed to sign a release for Dr. Parra. He minimizes any symptoms of depression she deflects blame to her family and talks about their alcohol abuse instead of her own. Strongly encouraged her to consider inpatient treatment as she is unlikely to be successful in her attempt at sobriety if she returns home. She is also not willing for inpatient mental health treatment and states "I do not want any inpatient treatment of any kind." She agains denies SI and shows no evidence of cutting on her arms (old scar). Reviewed with patient that her mother told our liaison nurse that she is not willing to have the patient return to her home. Patient say she will live with a friend, Kya, but says that friend does not know she is in the hospital and doesn't know if she is willing to have patient stay at her home. ROS: denies tremors/anxiety, sleep was disrupted, taking PO, ambulating in the johnson. Date Time Temp Pulse Resp B/P (MAP) Pulse Ox O2 Delivery O2 Flow Rate FiO2 06/17/17 16:00 Room Air 06/17/17 15:07 36.8 78 18 139/98 (112) 99 Room Air 06/17/17 10:29 Room Air 06/17/17 08:29 36.4 89 16 117/84 (95) 99 Room Air 06/17/17 00:00 Room Air 06/16/17 23:19 36.4 84 18 140/90 (107) 100 MSE: alert, very guarded, affect flat, disheveled, minimizing her drinking and the fact she seized. Indifference re: finding out she has a rib fracture, unsure if fell or bumped into counter. Thoughts processes are concrete and appear slow. 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 There is no evidence of psychosis. Insight and judgement are impaired. Current Inpatient Medications Medications (Trade) Dose Ordered Sig/Gisselle Route Start Time Stop Time Status Last Admin Dose Admin Gabapentin (Neurontin Cap) 100 mg TID PO 06/14/17 21:00 07/14/17 20:59 06/17/17 13:33 100 MG Acetaminophen (Tylenol Tab) 650 mg Q4H PRN PO 06/14/17 17:00 07/14/17 16:59 06/17/17 13:31 650 MG Al Hydrox/Mg Hydrox/Simethicone (Maalox Max Susp) 15 ml Q4H PRN PO 06/14/17 17:00 07/14/17 16:59 06/14/17 22:35 15 ML Magnesium Hydroxide (Milk Of Magnesia Susp) 30 ml Q12H PRN PO 06/14/17 17:00 07/14/17 16:59 Ondansetron HCl (Zofran Inj) 4 mg Q6H PRN IV 06/14/17 17:00 07/14/17 16:59 Polyethylene (Miralax Powder Packet) 17 gm DAILY PRN PO 06/14/17 17:00 07/14/17 16:59 Lorazepam (Ativan Inj) 1 mg Q2H PRN IV 06/14/17 17:00 07/14/17 16:59 06/15/17 23:40 1 MG Lorazepam (Ativan Inj) 2 mg Q2H PRN IV 06/14/17 17:00 07/14/17 16:59 06/16/17 13:58 2 MG Multivitamins 10 ml/Thiamine HCl 100 mg/Folic Acid 1 mg/Sodium Chloride 1,011.2 ml @ 200 mls/ hr DAILY IV 06/15/17 09:00 07/15/17 08:59 06/17/17 09:58 200 MLS/HR Miscellaneous (Iv Fluids Completed) 1 ea PRN PRN N/A 06/14/17 20:30 9/9/18 20:29 Nicotine (Nicoderm Cq 21MG Patch) 1 patch QAM TD 06/15/17 09:45 07/15/17 09:44 06/17/17 08:23 1 PATCH Miscellaneous (Remove Nicoderm Patch) 1 ea HS N/A 06/15/17 21:00 07/15/17 20:59 06/16/17 21:26 1 EA Chlordiazepoxide (Librium Cap) 10 mg BID PO 06/16/17 20:00 07/14/17 20:59 06/17/17 08:23 10 MG Lorazepam 1 mg/ Syringe 1 ml @ 1 mls/min Q2H PRN IV 06/17/17 00:30 07/17/17 00:29 06/17/17 00:39 1 MLS/MIN Lorazepam 2 mg/ Syringe 2 ml @ 1 mls/min Q2H PRN IV 06/17/17 00:30 07/17/17 00:29 Dx: etoh use d/o; etoh induced mood disorder Impression: Patient is minimizing the extent of her alcohol use and the problems it has caused in her life. He will not answer questions about the quantity. She answers questions by talking about others alcohol use including her mother's sister and . She expresses the desire to stop using alcohol but has no plan as to how she will manage this. recs: - pt denying SI but clearly poorly functioning at home and primacy intervention should be etoh cessation. She is denying depression or suicidality. Recommend a family meeting including mother, sister, medical team and social work to encourage patient to follow recommendation for inpatient ETOH rehab. She did agree to sign an CARRIE for Dr. Parra who she has seen since living in [place] although she didn't remember when she last there and it is unclear if she remains an active patient of his. She should not be allowed to leave the hospital AMA as 302 petition remains on chart and dispo uncertain.
[2017-06-17 23:14] VITALS: BP 150/92; PULSE 72; TEMP 37; O2SAT 100
[2017-06-18] MEDS: LORAZEPAM INJ 1 MG in SYRINGE 0.5 ML IV PRN (00:16)
[2017-06-18] MEDS: GABAPENTIN 100 MG CAP PO SCH ×3 (08:33→20:28)
[2017-06-18] MEDS: NICOTINE 21 MG/24 HR TDSY TD SCH (08:35)
[2017-06-18] MEDS: CHLORDIAZEPOXIDE 10 MG CAP PO SCH (08:38)
[2017-06-18] MEDS: MULTI-VITAMIN INFUSION INJ 10 ML, THIAMINE HCL INJ 100 MG, FoLIC ACID INJ 1 MG in SODIU... IV SCH (08:38)
[2017-06-18 09:00] VITALS: BP 149/96; PULSE 83; TEMP 36.6; O2SAT 100
--- NOTE | 2017-06-18 12:16 | Psychiatric Progress Notes ---
Psychiatric Progress Note Date of Service Jun 18, 2017. Notes ID: Case reviewed with psychiatric liaison nurse, records reviewed, and discussed with Dr. Swartz. CC: "Just tired." Interval History: Patient continues to receive both chlordiazepoxide and lorazepam for alcohol withdrawal. Her mother spoke with the liaison nurse yesterday and reported that the patient has been living with her since December after a stint in rehab for alcohol, as she had nowhere to go after leaving rehab. The rest of the family is expressing anger/frustration that mother took the patient in. It went well at [facility], but then the patient began sneaking around, hiding alcohol around the house, and has been drinking heavily for the past several months. Her mother stated that on , the patient stated that she wanted to cut her wrists, and that the patient had taken a steak knife from the kitchen, which she later found in the bathroom. The patient has been seen by multiple psychiatric clinicians daily for the past 3 days, and has consistently denied symptoms of depression and SI. She admitted to Dr. Sharma on 06/15 that she made suicidal statements to her mother, but says she was just trying to upset her mother, denied plan or intent to harm herself, and showed her wrists which had not lacerations or bush on them. Today, she says her mood is "good," denies feeling depressed, and denies SI. She tells me she is in the hospital for "malnutrition, and I hit my head." When informed that she is being treated for alcohol withdrawal, she acts surprised. She was informed of her alcohol withdrawal symptoms and treatments thus far, as well as the recommendations for inpatient rehab for her alcoholism, and the reasoning for that. She continues to refuse this, and refuses IOP as well. She is willing to return to see Dr. Parra. She does not think she needs inpatient mental health treatment and is not interested in that. She is aware that she cannot return to live with her mother, but has not talked to her about it. She says she plans to get her things from her mother's house and maybe stay with a friend. ROS: denies depression, anxiety, charan, psychosis; sleep was disrupted. MSE: WNWD WF appearing stated age. Awoken from sleep, but alert and able to answer questions, although not a reliable historian. Affect stable, tired appearing, congruent with stated mood. Denies SI, HI, AVH, paranoia. Thoughts are goal directed, concrete. Insight and judgement are impaired. Diagnoses: Alcohol use disorder (primary) Rule out alcohol induced mood disorder Impression: Patient is minimizing the extent of her alcohol use and the problems it has caused in her life. There may also be an element of cognitive dysfunction as a result of her drinking and/or past head injuries. She demonstrates extremely poor insight into her substance abuse, but has capacity to refuse treatment recommendations for rehab. She has consistently denied mood symptoms and SI for 4 days in a row, and is unlikely to benefit from an inpatient psychiatric admission, as the primary goal would be to get her to rehab, which she continues to refuse. She does not have a good discharge plan, and would recommend a family meeting with primary team, older adult social work specialist, and her family to address this. We have requested records from Dr. Parra but have not yet received them. She is willing to return to see him, and will ask the liaison nurse to contact his office and determine if an appointment can be scheduled.
[2017-06-18] MEDS ORDERED: LORAZEPAM INJ 0.5 MG in SYRINGE 0.75 ML IV PRN (14:30)
[2017-06-18] MEDS ORDERED: LORAZEPAM 2 MG/ML 1 ML VIAL IV PRN (14:30)
[2017-06-18] MEDS ORDERED: LORAZEPAM IV PRN (14:30)
[2017-06-18 14:45] VITALS: BP 133/85; PULSE 83; TEMP 36.6; O2SAT 100
--- NOTE | 2017-06-18 16:53 | Hospitalist Progress Note ---
Hospitalist Progress Note Date of Service Jun 18, 2017. (Alba Fall PA-C) Subjective Pt evaluation today including: conversation w/ patient, conversation w/ family , physical exam, chart review, lab review, review of studies, review of inpatient medication list Patient seen and evaluated. Permission given to discuss everything with her mother. Patient is calm, without tremor, no seizure activity, and stable. Will check ammonia levels given ETOH use. Will continue taper of Librium. Patient states she feels "sid" and feels great. Emphasized that she should reach out to her mother and friend that she states she would stay with. Had a 45 minute conversation with her mother Joan James over the phone. Mother is extremely upset and frustrated and struggling to deal with her daughters ETOH problem. Mother feels that she cannot have her return to her house and expresses that her daughter is causing a lot of issues for her between damage to the house and causing her to not see family due to them not wanting to bring their children around the patient. Explained that patient is competent to make her own decisions, whether good or bad, and cannot be forced into treatment. Explained that POA is only active if patient cannot make that decision or is deemed incompetent. Verbalized understanding but is concerned for patient's well -being. Patient is stable from a medical standpoint to be discharge tomorrow vs the next day. May be reasonable to keep while tapering Librium to reduce abuse. Constitutional: No fever, No chills, No fatigue Respiratory: No shortness of breath Cardiovascular: No chest pain, No palpitations Abdomen: No pain, No nausea, No vomiting, No diarrhea Female : No dysuria Psychiatric: + substance abuse, No depression symptoms, No anxiety Heme: No abnormal bleeding/bruising (Alba Fall PA-C) Medications Current Inpatient Medications Medications (Trade) Dose Ordered Sig/Gisselle Route Start Time Stop Time Status Last Admin Dose Admin Gabapentin (Neurontin Cap) 100 mg TID PO 06/14/17 21:00 07/14/17 20:59 06/18/17 14:15 100 MG Acetaminophen (Tylenol Tab) 650 mg Q4H PRN PO 06/14/17 17:00 07/14/17 16:59 06/17/17 13:31 650 MG Al Hydrox/Mg Hydrox/Simethicone (Maalox Max Susp) 15 ml Q4H PRN PO 06/14/17 17:00 07/14/17 16:59 06/14/17 22:35 15 ML Magnesium Hydroxide (Milk Of Magnesia Susp) 30 ml Q12H PRN PO 06/14/17 17:00 07/14/17 16:59 Ondansetron HCl (Zofran Inj) 4 mg Q6H PRN IV 06/14/17 17:00 07/14/17 16:59 Polyethylene (Miralax Powder Packet) 17 gm DAILY PRN PO 06/14/17 17:00 07/14/17 16:59 Lorazepam (Ativan Inj) 1 mg Q2H PRN IV 06/14/17 17:00 07/14/17 16:59 06/15/17 23:40 1 MG Lorazepam (Ativan Inj) 2 mg Q2H PRN IV 06/14/17 17:00 07/14/17 16:59 06/16/17 13:58 2 MG Multivitamins 10 ml/Thiamine HCl 100 mg/Folic Acid 1 mg/Sodium Chloride 1,011.2 ml @ 200 mls/ hr DAILY IV 06/15/17 09:00 07/15/17 08:59 06/18/17 08:38 200 MLS/HR Miscellaneous (Iv Fluids Completed) 1 ea PRN PRN N/A 06/14/17 20:30 06/14/18 20:29 Nicotine (Nicoderm Cq 21MG Patch) 1 patch QAM TD 06/15/17 09:45 07/15/17 09:44 06/18/17 08:35 1 PATCH Miscellaneous (Remove Nicoderm Patch) 1 ea HS N/A 06/15/17 21:00 07/15/17 20:59 06/17/17 20:42 1 EA Lorazepam 2 mg/ Syringe 2 ml @ 1 mls/min Q2H PRN IV 06/17/17 00:30 07/17/17 00:29 Chlordiazepoxide (Librium Cap) 5 mg BID PO 06/18/17 20:00 07/14/17 20:59 Lorazepam (Ativan Inj) 0.5 mg Q4H PRN IV 06/18/17 14:30 07/18/17 14:29 Lorazepam 0.5 mg/ Syringe 1 ml @ 1 mls/min Q4H PRN IV 06/18/17 14:30 07/18/17 14:29 (Alba Fall PA-C) Objective Vital Signs Date Time Temp Pulse Resp B/P (MAP) Pulse Ox O2 Delivery O2 Flow Rate FiO2 06/18/17 16:00 Room Air 06/18/17 14:45 36.6 83 20 133/85 (101) 100 Room Air 06/18/17 09:00 36.6 83 18 149/96 (113) 100 Room Air 06/18/17 08:30 Room Air 06/18/17 00:00 Room Air 06/17/17 23:14 37.0 72 18 150/92 (111) 100 Room Air (Alba Fall PA-C) Physical Exam General Appearance: no apparent distress, + thin, + pertinent finding (calm; no tremor) Eyes: sclerae normal ENT: hearing grossly normal Respiratory/Chest: lungs clear, normal breath sounds, no respiratory distress, no accessory muscle use Cardiovascular: regular rate, rhythm, no gallop, no murmur Abdomen: normal bowel sounds, non tender, soft Extremities: no pedal edema, no calf tenderness Neurologic/Psychiatric: alert, oriented x 3 Skin: normal color, warm/dry (Alba Fall PA-C) Laboratory Results Last 24 Hours Test 06/18/17 16:22 06/18/17 16:23 (Alba Fall PA-C) Assessment and Plan Ms. Chiu is a 51 y/o female with PMHx of ETOH Abuse with request for detox and withdrawal support, Hypothyroidism, Neuropathy, Possible Hep C, and Possible Uterine CA. Had witnessed withdrawal seizure in ED ETOH Withdrawal with Seizure: - Daily banana bag - Librium 5 mg BID and taper down with Ativan PRN - recommend avoiding further Ativan Suicidal Ideation: - Currently denying SI Pancytopenic: - Platelets slowly improving - No active bleeding, petechiae, or purpura observed - Likely from ETOH/Liver disease - no U/S present for liver evaluation - is anemic but fits normocytic/normochromic but given ETOH use may be B12/folate deficiency Hypothyroidism: - Seen on previous admission - TSH now WNL - monitor as outpatient Neuropathy: - Gabapentin 100 mg TID Hyperglycemia: - Random glucose 229 today with A1c 5.4 - continue to monitor DVT Prophylaxis: No chemical means given thrombocytopenia Code Status: FULL RESUSCITATION Disposition: - Medically is optimal for D/C would be reasonable to keep while finishing Librium taper to prevent misuse - Socially - patient refuses inpatient ETOH rehab and is not suicidal and is competent to make decisions but family requesting treatment - Discussed with mother (permission given today by patient) - stated she is medically suitable; mother expressed concern which is reasonably founded - Patient does not appear to be realistic about her problems and minimalizes them but is not a direct harm to herself or others and can decide for herself - should give resources of shelters in case she has nowhere to go Discharge planning: home (Alba Fall PA-C) Reviewed: Pt Seen/Exam by Me (Trista Swartz DO) History Pt is ambulating well. Ongoing PO intake. Feels well. Still declining rehab. Agree with HPI/ROS as noted. (Trista Swartz DO) General Appearance: WD/WN, no apparent distress Respiratory: normal breath sounds, no respiratory distress Cardiovascular: normal peripheral pulses, regular rate, rhythm Gastrointestinal: non tender, soft Extremities: non-tender, no pedal edema Neurologic/Psychiatric: alert, oriented x 3 Skin Characteristics: normal color, warm/dry (Trista Swartz DO) Assessment/Plan Agree with plan as outlined above Alcohol related seizures, has not had any since Pt initially requested inpt rehab in [place], however now declines this and inpt psych tx Psych feels she needs inpt rehab, but does not meet for involuntary inpt psych care and pt will not consent to voluntary Diarrhea yesterday has resolved, cdiff neg Pt advised that only 1 person can be designated POA and that the most recently signed paperwork is that which will be honored. Requesting new forms and nursing to provide. Advised her to discuss this with her sister and mother so that people are aware of status. After discussing with psych earlier, it is noted to me that pt seems to have higher level of cognitive impairment that waxes and wanes. Ammonia WNL LFTs WNL B12, folate, B1 WNL Thrombocytopenia: appears chronic ?? HIV, will need to discuss testing with pt (Trista Swartz DO)
[2017-06-18] MEDS: CHLORDIAZEPOXIDE 5 MG CAP PO SCH (20:28)
[2017-06-18] MEDS ORDERED: LORAZEPAM 2 MG/ML 1 ML VIAL IV STA (20:42)
[2017-06-18] MEDS ORDERED: LORAZEPAM INJ 0.5 MG in SYRINGE 0.75 ML IV STA (20:49)
[2017-06-18 23:56] VITALS: BP 161/108; PULSE 75; TEMP 37; O2SAT 100
[2017-06-19 00:10] VITALS: BP 159/97
[2017-06-19 07:20] VITALS: BP 148/99; PULSE 93; TEMP 36.8; O2SAT 97
[2017-06-19 08:30] VITALS: O2SAT 97
[2017-06-19] MEDS: GABAPENTIN 100 MG CAP PO SCH (08:33)
[2017-06-19] MEDS: MULTI-VITAMIN INFUSION INJ 10 ML, THIAMINE HCL INJ 100 MG, FoLIC ACID INJ 1 MG in SODIU... IV SCH (08:33)
[2017-06-19] MEDS: NICOTINE 21 MG/24 HR TDSY TD SCH (08:33)
[2017-06-19] MEDS: CHLORDIAZEPOXIDE 5 MG CAP PO SCH (08:37)
[2017-06-19] MEDS ORDERED: BENZOCAINE 20% (ORAJEL) 11.9 GM TUBE MT PRN (12:00)
[2017-06-19] MEDS ORDERED: CYM/30 PO (12:37)
[2017-06-19] MEDS ORDERED: NRN100 PO (12:37)
[2017-06-19] MEDS ORDERED: CYAN100073 PO (12:43)
[2017-06-19] MEDS ORDERED: FLV1 PO (12:43)
--- NOTE | 2017-06-19 12:47 | Discharge Instructions ---
Discharge Instructions Date of Service Jun 19, 2017. Admission Reason for Admission: Alcohol Withdrawal, Suicidal Ideation Discharge Discharge Diagnosis / Problem: Alcohol Withdrawal and Seizure Discharge Goals Goal(s): Decrease discomfort, Improve function, Increase independence Activity Recommendations Activity Limitations: resume your previous activity Driving or Machine Use: Do not drive while drinking alcohol or other substances . Instructions / Follow-Up Instructions / Follow-Up Alcohol Abuse: - Please sustain from all alcohol or other substances. Please contact the resources provided to get into rehab and programs to help you be successful. - You are also supplied with a number for [facility] who can help you if needed. - Please get re-established with your psychiatrist and keep your appointments - See your family doctor in 7-10 days. - Do not drink or drive. - Avoid places that serve alcohol or when others are drinking to help reduce temptation to drink. - Remember to take care of yourself and to eat well and to talk with someone to help you be successful. Suicidal Thoughts: - If you have thoughts of harming yourself please call CRISIS or 911 and get help. Current Hospital Diet Patient's current hospital diet: Regular Diet Discharge Diet Recommended Diet: Regular Diet Pending Studies Studies pending at discharge: no Laboratory Results Hemoglobin A1c Test 06/13/17 22:35 Range/Units Estimated Average Glucose 108 mg/dl Hemoglobin A1c 5.4 4.5-5.6 % Medical Emergencies . Who to Call and When: Medical Emergencies: If at any time you feel your situation is an emergency, please call 911 immediately. . Non-Emergent Contact Non-Emergency issues call your: Primary Care Provider Call Non-Emergent contact if: you have a fever, your pain is concerning you, you have any medication questions . . "Provider Documentation" section prepared by Alba Fall. . VTE Core Measure Inpt VTE Proph given/why not?: SCD's
[2017-06-19 13:14] VITALS: BP 148/99; PULSE 93; TEMP 36.8; O2SAT 97
--- NOTE | 2017-06-19 16:59 | Discharge Summary ---
Discharge Summary Date of Service Jun 19, 2017. (Alba Fall PA-C) Discharge Summary Admission Date: Jun 16, 2017 at 10:24 Discharge Date: Jun 19, 2017 Principal Diagnosis: Alcohol Withdrawal with Seizure; Suicidal Ideation Problems/Secondary Diagnoses: 1. ETOH Abuse 2. ETOH Withdrawal with Seizure 3. Elevated LFTs 2/2 ETOH Use 4. Pancytopenia Procedures: CHEST ONE VIEW PORTABLE FINDINGS: The cardiac and mediastinal contours are normal. There is no evidence of focal pulmonary consolidation. There is no evidence of failure. No pleural effusions are visualized.[Old left-sided rib fractures are evident. IMPRESSION: No active disease in the chest. RIGHT RIBS UNILATERAL 4 VIEWS FINDINGS: There is acute fracture of the right ninth posterior lateral rib. There is a right second rib deformity which likely is old. Old healed fractures of the right 10th and 11th and 12th ribs are also evident. No pneumothorax is visualized. There are upper abdominal calcifications. The distribution raises the possibility of chronic pancreatitis. IMPRESSION: 1. Acute fracture of the right ninth rib. No evidence of pneumothorax. 2. Upper abdominal calcifications is a distribution raising the possibility of chronic pancreatitis. Consultations: 1. Psychiatry (Alba Fall PA-C) Medication Reconciliation New Medications: Cyanocobalamin (B12) 1,000 Mcg Tab 1 TAB PO DAILY for 14 Days Folic Acid (Folic Acid) 1 Mg Tab 1 MG PO DAILY for 14 Days Continued Medications: Duloxetine HCl (Cymbalta) 30 Mg Cap 60 MG PO DAILY, CAP 5 Refills Gabapentin (Gabapentin) 100 Mg Cap 300 MG PO TID Discharge Exam Review of Systems: Constitutional: No fever, No chills Eyes: No worsening of vision ENT: + problem reported (sore on L side of tongue), No nasal symptoms, No sore throat, No trouble swallowing Respiratory: No cough, No shortness of breath Cardiovascular: No chest pain, No palpitations Abdomen: No pain, No nausea, No vomiting, No diarrhea, No constipation Musculoskeletal: No swelling, No calf pain Genitourinary - Female: No dysuria Psychiatric: + substance abuse, No depression symptoms, No anxiety Hematologic / Lymphatic: No abnormal bleeding/bruising Integumentary: No rash Physical Exam: General Appearance: no apparent distress, + thin, + pertinent finding ( disheveled) Eyes: sclerae normal ENT: hearing grossly normal Neck: supple, no JVD, trachea midline Respiratory/Chest: lungs clear, normal breath sounds, no respiratory distress, no accessory muscle use Cardiovascular: regular rate, rhythm, no gallop, no murmur Abdomen / GI: normal bowel sounds, non tender, soft Extremities: no calf tenderness, no pedal edema Neurologic/Psychiatric: alert, normal mood/affect, oriented x 3 Skin: normal color, warm/dry (Alba Fall, CECIL) Hospital Course ADMISSION: 51 y/o F extensive Hx of ETOH abuse, hypothyroid, neuropathy and possible hep C and uterine CA. Transported to hospital at [facility] due to ETOH abuse, depression and reported suicidal ideation. The pt was assigned to mental [facility] and had stayed in the ER for an extended period as placement was attempted. Several hours after arrival however, she had a witnessed generalized seizure. Admission to medicine was then requested. She denied any current medical issues aside form alcohol abuse and neuropathy. She is a poor historian. She does not recall having a seizure and denies any current symptoms. She admits depression but denies any suicidal ideation. HOSPITAL COURSE: Ms. Chiu was admitted due to ETOH abuse with witnessed withdrawal seizure in the ED. Patient was initiated on Librium with subsequent taper prior to discharge. Ativan IV was implemented for increased agitation/ withdrawal symptoms. No further seizure activity occurred. Psychiatry was consulted for additional assistance. During intoxication, patient made suicidal comments and gestures but upon sobriety has denied these feelings. She have been visited by multiple psychiatric and medical providers and has not expressed further suicidal thoughts or actions. For her safety she was placed on 1:1 observation which was able to be lifted prior to D/C. Initially, patient stated she had to think about letting us talk to family members. She finally granted permission and a long discussion was had with her mother Joan James. Patient did initially request inpatient ETOH abuse but later decided against this. Patient's sister is POA however patient has capacity to make decisions regardless of her substance abuse or poor judgment. This was expressed to the family. Psychiatry's input is that the patient is minimizing her problems and question some cognitive dysfunction in the setting of her drinking and previous TBI. She does appear to have poor insight and judgment but the capacity to refuse further treatment. On day of D/C, patient is calm without evidence of withdrawal and is pleasant. She did speak to her mother who agreed to pick her up from the hospital. Patient expressed desire to change and to enter rehab but not from our facility. Patient is optimal for discharge from a medical standpoint. Medical recommendations of ETOH rehab was discussed on numerous occasions and would be the ideal intervention. Again, patient is currently no harm to self or directly of others and has capacity to refuse further intervention. The current plan was discussed with her mother Joan James who expressed fear and reasonable concern. Patient is at high risk for readmission given her substance abuse and a possible chance of not following through with outpatient treatment. DISPOSITION: - She would largely benefit from inpatient alcohol treatment - she was provided with contact information for facilities and [facility]. -- Prior to D/C patient was calling the numbers provided to her and expressed she wanted to discuss with her mother and also have her mother accompany her to these facilities. She ultimately did not want to go from the hospital to a facility. - Patient may benefit from further imaging of her liver. This was not performed in-hospital and patient's ammonia level was WNL and does not appear to be contributing to her condition at this time - She is to get re-established with Dr. Parra if possible or another behavioral health specialist. - Follow-up appointment was established with her PCP -- Of note, patient reporting a painful sore on the L side of her tongue that she believes she burnt her tongue - it is non-bleeding and may be from B12/ folate deficiency - would recommend monitoring - Recommendations for possible neuropsychiatric evaluation in setting of previous TBI or further evaluation of cognitive abilities Total Time Spent: Greater than 30 minutes This includes examination of the patient, discharge planning, medication reconciliation, and communication with other providers. (Alba Fall, SKYLERC) Discharge Instructions Please refer to the electronic Patient Visit Report (Discharge Instructions) for additional information. (Alba Fall PA-C) Follow-Up I reviewed above note and examined patient. Physical Exam: General Appearance: no apparent distress, + thin, + pertinent finding ( disheveled) Eyes: sclerae normal ENT: hearing grossly normal Neck: supple, no JVD, trachea midline Respiratory/Chest: lungs clear, normal breath sounds, no respiratory distress, no accessory muscle use Cardiovascular: regular rate, rhythm, no gallop, no murmur Abdomen / GI: normal bowel sounds, non tender, soft Extremities: no calf tenderness, no pedal edema Neurologic/Psychiatric: alert, normal mood/affect, oriented x 3 Skin: normal color, warm/dry I agree with the above note done by APC. Case was discussed with APC and patient. (Barrett Martinez M.D.) Additional Copies To RV. Mobley MD; Avinash Parra M.D.
[2017-06-24 10:33] LABS: SYNTHETIC CANNABINOIDS QL URIN NEGATIVE (Negative)
== END 2017-06-19 13:55 | disposition home or self-care (01) | DRG 897 ==
LOC: EDBD 21:22 → C.EDA 21:24 → C.2E 06-14 17:04 → EDBEDREQ 06-14 17:14 → ENRESERV 06-14 17:25 → OBSVTOIN 06-16 10:24 → CANRESERV 06-16 16:41 → ENRESERV 06-16 16:41 → CANRESERV 06-16 16:43 → ENRESERV 06-16 16:43 → C.4E 06-16 17:18
PROVIDERS: ADMIT Internal Medicine; ATTEND Family Medicine
DX: F10.239 Alcohol dependence with withdrawal, unspecified (principal); G40.89 Other seizures; D61.818 Other pancytopenia; R45.851 Suicidal ideations; F33.9 Major depressive disorder, recurrent, unspecified; F10.24 Alcohol dependence with alcohol-induced mood disorder; R07.89 Other chest pain; R73.9 Hyperglycemia, unspecified; G62.9 Polyneuropathy, unspecified; E03.9 Hypothyroidism, unspecified; F17.200 Nicotine dependence, unspecified, uncomplicated; Z79.899 Other long term (current) drug therapy; Z82.49 Family history of ischemic heart disease and other diseases of the circulatory system; Z87.440 Personal history of urinary (tract) infections; Z81.1 Family history of alcohol abuse and dependence

== ENCOUNTER 2017-06-26 14:10 | Inpatient (IN) | payer OTHER ==
[~2017-06-26] VITALS: Ht 168.9 cm; Wt 64.1 kg
[~2017-06-26 14:10] MED LIST changes: -CLBCRM30 EXT; -CLOB-85 TOP; +CYAN100073 PO; -CYAN100T PO; +CYM/30 PO; -DSY100 PO; -DULO60CA44 PO; -FLUT0.15 NAE; -GABA-113 PO; -LEVO25TA5 PO; -MULTTAB5 PO; -NALT50TA16 PO; +NRN100 PO; -POTA10TA32 PO
[2017-06-26] MEDS ORDERED: SODIUM CHLORIDE 0.9% 500ML 500 ML IV STA (14:43)
[2017-06-26] MEDS ORDERED: MULTI-VITAMIN INFUSION INJ 10 ML, THIAMINE HCL INJ 100 MG, FoLIC ACID INJ 1 MG in SODIU... IV ONE (14:45)
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
[2017-06-26 14:56] LABS: BASO % 3.2 %; BASO ABS # 0.16 K/uL (0-0.2); COMPLETE YES; EOS % 1.4 %; HEMATOCRIT 49.7 % (37-47); IG% 0.4 %; LYMPH % 32.1 %; LYMPH ABS # 1.62 K/uL (1.2-3.4); MEAN CELL VOLUME 92.4 fL (80-100); MEAN CORPUSCULAR HEMOGLOBIN 30.3 pg (25-34); MEAN CORPUSCULAR HGB CONC 32.8 g/dl (32-36); MEAN PLATELET VOLUME 8.9 fL (7.4-10.4); MONO % 4.2 %; NEUT % 58.7 %; PLATELET COUNT 486 K/uL (130-400); RED BLOOD COUNT 5.38 M/uL (4.2-5.4); WHITE BLOOD COUNT 5.04 K/uL (4.8-10.8)
[2017-06-26] MEDS ORDERED: OPTIRAY 320 IV PRN (15:00)
[2017-06-26 15:06] LABS: PROTHROMBIN TIME (PATIENT) 10.5 SECONDS (9.0-12.0)
--- NOTE | 2017-06-26 15:07 | DIAGNOSTIC IMAGING REPORT ---
SINGLE VIEW CHEST CLINICAL HISTORY: Alcohol intoxication. Suspected aspiration. FINDINGS: An AP, portable, upright chest radiograph is compared to study dated 06/16/2017. The examination is degraded by portable technique and patient rotation. The cardiomediastinal silhouette is unremarkable. The lungs and pleural spaces are clear. No pneumothorax is seen. There are healed left-sided rib fractures. IMPRESSION: No acute cardiopulmonary abnormality. Electronically signed by: Lauro Nj M.D. 06/26/2017 3:05 PM Dictated Date/Time: 06/26/2017 3:01 PM
[2017-06-26 15:18] LABS: ACETAMINOPHEN < 2 ug/ml (10-30)
[2017-06-26 15:23] LABS: BLOOD UREA NITROGEN 11 mg/dl (7-18); CALCIUM 9.3 mg/dl (8.5-10.1); CARBON DIOXIDE 26 mmol/L (21-32); CHLORIDE 99 mmol/L (98-107); CREATININE 0.74 mg/dl (0.60-1.20); GLUCOSE 81 mg/dl (70-99); MAGNESIUM 2.3 mg/dl (1.8-2.4); SODIUM 141 mmol/L (136-145)
[2017-06-26 15:43] LABS: ALKALINE PHOSPHATASE 234 U/L (45-117); ALT/SGPT 107 U/L (12-78); AST/SGOT 91 U/L (15-37)
--- NOTE | 2017-06-26 16:14 | DIAGNOSTIC IMAGING REPORT ---
CT HEAD WITHOUT CONTRAST (CT) CLINICAL HISTORY: Head pain status post trauma COMPARISON STUDY: No previous studies for comparison. TECHNIQUE: Axial CT of the brain is performed from the vertex to the skull base. IV contrast was not administered for this examination. A dose lowering technique was utilized adhering to the principles of ALARA. CT DOSE: FINDINGS: No intra or extra-axial mass lesions are visualized. There is no CT evidence of acute cortical infarction. There is no evidence of midline shift. There is no acute hemorrhage. No calvarial fractures are visualized. There is a nonspecific 8 mm dural based calcification within the anterior aspect of the right middle cranial fossa. There is also a 8 mm dural based calcification within the right frontal region. Old tiny calcified meningiomas cannot be excluded. There is no evidence of pathologic ventricular dilatation. There is no evidence of acute sinusitis IMPRESSION: 1. No acute intracranial findings 2. No evidence of acute intracranial injury 3. Nonspecific subcentimeter dural-based calcifications within the right anterior temporal region and right frontal region. Electronically signed by: Blas Schuler M.D. 06/26/2017 4:13 PM Dictated Date/Time: 06/26/2017 4:10 PM
--- NOTE | 2017-06-26 16:22 | DIAGNOSTIC IMAGING REPORT ---
CT ABD/PELVIS IV CONTRAST ONLY CLINICAL HISTORY: Abdominal pain status post trauma. Ethanol intoxication. COMPARISON STUDY: None. TECHNIQUE: Following the IV administration of 120 mL of Optiray-320, CT scan of the abdomen and pelvis was performed from the lung bases to the proximal femurs. Images are reviewed in the axial, sagittal, and coronal planes. IV contrast was administered without complication. A dose lowering technique was utilized adhering to the principles of ALARA. CT DOSE: 847.61 mGy.cm FINDINGS: Lower chest: There are minor basilar atelectatic changes Liver: There is mild hepatic steatosis. No focal masses are visualized. There is no evidence of acute hepatic injury. Gallbladder: There is mild hyperenhancement of the gallbladder wall. No focal masses are visualized. Spleen: Normal in size and attenuation. Pancreas: There are pancreatic calcifications suggesting chronic pancreatitis. There is mild dilatation of the pancreatic duct within the head and neck. This a nonspecific finding which could be secondary to chronic pancreatitis. There are 2 cystic lesions within the uncinate process measuring 10 mm and 8 mm respectively. These likely represent either IPMNs, or the sequela of pancreatitis. 12 month follow-up is recommended. Adrenal glands: Unremarkable. Kidneys: There is symmetric renal cortical enhancement. The kidneys are normal in size without hydronephrosis. Bowel: There are no transition zones to indicate bowel obstruction. There is colonic diverticulosis. There are no acute inflammatory changes. There is no mesenteric fluid. There are no extraluminal air collections. Peritoneum: There is minimal pelvic fluid. No free air is visualized. Vasculature: The abdominal aorta is normal in course and caliber. Adenopathy: None. Pelvic viscera: The bladder, and pelvic viscera are unremarkable. Skeletal structures: There are age-indeterminate fractures of the right 10th and 11th and 12th ribs. IMPRESSION: 1. Nondisplaced fractures of the right 10th 11th and 12th ribs, possibly old 2. No evidence of solid organ injury 3. Pancreatic calcifications consistent with chronic pancreatitis. 4. Mild dilatation of pancreatic duct within the head and neck. 2 cystic lesions within the uncinate process measuring 10 mm and 8 mm respectively. These likely represent either IPMNs or the sequela of pancreatitis. 12 month follow-up is recommended. 5. Hepatic steatosis Electronically signed by: Blas Schuler M.D. 06/26/2017 4:21 PM Dictated Date/Time: 06/26/2017 4:15 PM
[2017-06-26 16:24] LABS: BENZODIAZEPINE, URINE POS (NEG); COCAINE,URINE NEG (NEG); PHENCYCLIDINE, URINE NEG (NEG)
[2017-06-26 16:40] LABS: URINE APPEARANCE CLEAR (CLEAR); URINE BILIRUBIN NEG (NEG); URINE COLOR DK YELLOW; URINE NITRITE NEG (NEG); URINE PH 5.5 (4.5-7.5); URINE SPECIFIC GRAVITY 1.024 (1.000-1.030); UROBILINOGEN NEG (NEG)
[2017-06-26 16:42] LABS: MANUAL MICROSCOPIC REQUIRED? NO; REVIEW REQ? NO
[2017-06-26] MEDS ORDERED: LORAZEPAM 2 MG/ML 1 ML VIAL IV STA (17:53)
[2017-06-26] MEDS ORDERED: CHLORDIAZEPOXIDE 25 MG CAP PO ONE (18:00)
[2017-06-26] MEDS: ONDANSETRON INJ 2 MG/ML 2 ML VIAL IV PRN (18:36)
[2017-06-26] MEDS ORDERED: IV FLUIDS COMPLETED PRN (19:00)
--- NOTE | 2017-06-26 19:33 | History and Physical ---
History & Physical Date & Time of Service: Jun 26, 2017 at 18:34 Chief Complaint: Alcohol Overdose Primary Care Physician: RV. Mobley MD History of Present Illness Source: patient Pt is a 51 yo female with a history of alcoholism who presents to the ER with complaints of an alcohol overdose. Pt was reported to be found by housekeeping passed out in her room at the [facility] where she has been staying since she had a fight with her mom last week and was kicked out. Pt states she has been depressed since her divorce this past year. She was recently admitted for alcohol abuse where she also had a withdrawal seizure. Pt was instructed to seek out rehab but never complied. Upon questioning pt denies having any alcohol, and reports her last drink was over a month ago. Pt denies any fevers, chills, abd pain, chest pain or shortness of breath. Past Medical/Surgical History Medical Problems: (1) Alcoholism Status: Chronic (2) Anxiety Status: Chronic (3) Neuropathy Status: Chronic (4) Psoriasis Status: Chronic (5) Urinary tract infection Status: Resolved Family History FH: cancer FH: heart disease Hypertension Social History Smoking Status: Current Every Day Smoker Alcohol Use: heavy Drug Use: none Marital Status: Housing status: lives alone Occupational Status: unemployed Allergies Coded Allergies: No Known Allergies (Unverified , 06/14/17) Home Medications Scheduled Gabapentin (Gabapentin), 300 MG PO TID Review of Systems Constitutional: + weakness, + fatigue, No fever, No chills Eyes: No worsening of vision, No eye pain, No redness, No discharge Respiratory: No cough, No sputum, No wheezing, No shortness of breath, No dyspnea on exertion Cardiovascular: No chest pain, No orthopnea, No PND, No edema Abdomen: No pain, No nausea, No vomiting, No diarrhea Genitourinary - Female: No dysuria, No urinary frequency, No urinary urgency, No urinary incontinence Neurologic: No memory loss, No paralysis, No weakness, No numbness/tingling Psychiatric: No depression symptoms, No anhedonism, No anxiety, No insomnia Endocrine: No fatigue, No excessive thirst, No excessive urination Integumentary: No rash, No itch Allergic / Immunologic: No environmental allergies, No seasonal allergies Physical Exam Vital Signs Date Time Temp Pulse Resp B/P (MAP) Pulse Ox O2 Delivery O2 Flow Rate FiO2 06/26/17 18:01 103 129/78 06/26/17 17:45 93 15 96 06/26/17 17:01 121/75 06/26/17 16:45 99 15 06/26/17 16:15 94 14 107/64 96 Room Air 06/26/17 16:12 107/64 06/26/17 15:45 102 14 97 06/26/17 15:40 101 19 97 06/26/17 15:10 100 21 98 06/26/17 14:40 100 15 93 06/26/17 14:34 93 Room Air 06/26/17 14:24 36.6 104 14 111/92 96 Room Air 06/26/17 14:22 105 06/26/17 14:20 111/92 General Appearance: WD/WN, no apparent distress Head: normocephalic, atraumatic Eyes: normal inspection, PERRL, EOMI, sclerae normal Neck: supple, no adenopathy, thyroid normal, no JVD Respiratory/Chest: chest non-tender, lungs clear, normal breath sounds, no respiratory distress Cardiovascular: no edema, no gallop, no JVD, + tachycardia Abdomen/GI: normal bowel sounds, non tender, soft, no organomegaly Back: normal inspection, no CVA tenderness, no muscle spasm, normal range of motion Extremities/Musculoskelatal: normal inspection, no calf tenderness, normal capillary refill, no pedal edema Neurologic/Psych: alert, normal mood/affect, normal reflexes, oriented x 3 Skin: normal color, warm/dry, no rash Lymphatic: no adenopathy Diagnostics Laboratory Results Results Past 24 Hours Test 06/26/17 14:29 06/26/17 15:40 06/26/17 15:45 06/26/17 18:14 Range/Units White Blood Count 5.04 4.8-10.8 K/uL Red Blood Count 5.38 4.2-5.4 M/uL Hemoglobin 16.3 12.0-16.0 g/dL Hematocrit 49.7 37-47 % Mean Corpuscular Volume 92.4 80-100 fL Mean Corpuscular Hemoglobin 30.3 25-34 pg Mean Corpuscular Hemoglobin Concent 32.8 32-36 g/dl Platelet Count 486 130-400 K/uL Mean Platelet Volume 8.9 7.4-10.4 fL Neutrophils (%) (Auto) 58.7 % Lymphocytes (%) (Auto) 32.1 % Monocytes (%) (Auto) 4.2 % Eosinophils (%) (Auto) 1.4 % Basophils (%) (Auto) 3.2 % Neutrophils # (Auto) 2.96 1.4-6.5 K/uL Lymphocytes # (Auto) 1.62 1.2-3.4 K/uL Monocytes # (Auto) 0.21 0.11-0.59 K/uL Eosinophils # (Auto) 0.07 0-0.5 K/uL Basophils # (Auto) 0.16 0-0.2 K/uL RDW Standard Deviation 59.4 36.4-46.3 fL RDW Coefficient of Variation 17.6 11.5-14.5 % Immature Granulocyte % (Auto) 0.4 % Immature Granulocyte # (Auto) 0.02 0.00-0.02 K/uL Prothrombin Time 10.5 9.0-12.0 SECONDS Prothromb Time International Ratio 1.0 0.9-1.1 Activated Partial Thromboplast Time 26.9 21.0-31.0 SECONDS Partial Thromboplastin Ratio 1.0 Sodium Level 141 136-145 mmol/L Potassium Level 4.0 3.5-5.1 mmol/L Chloride Level 99 98-107 mmol/L Carbon Dioxide Level 26 21-32 mmol/L Anion Gap 16.0 3-11 mmol/L Blood Urea Nitrogen 11 7-18 mg/dl Creatinine 0.74 0.60-1.20 mg/dl Est Creatinine Clear Calc Drug Dose 84.1 ml/min Estimated GFR () 108.7 Estimated GFR (Non- 93.8 BUN/Creatinine Ratio 15.0 10-20 Random Glucose 81 70-99 mg/dl Calcium Level 9.3 8.5-10.1 mg/dl Magnesium Level 2.3 1.8-2.4 mg/dl Total Bilirubin 0.5 0.2-1 mg/dl Direct Bilirubin 0.2 0-0.2 mg/dl Aspartate Amino Transf (AST/SGOT) 91 15-37 U/L Alanine Aminotransferase (ALT/SGPT) 107 12-78 U/L Alkaline Phosphatase 234 45-117 U/L Total Creatine Kinase 40 26-192 U/L Troponin I < 0.015 0-0.045 ng/ml Total Protein 8.7 6.4-8.2 gm/dl Albumin 4.1 3.4-5.0 gm/dl Lipase 58 73-393 U/L Thyroid Stimulating Hormone (TSH) 0.550 0.300-4.500 uIu/ml Free Thyroxine 0.81 0.80-1.60 ng/dl Salicylates Level 1.9 2.8-20 mg/dl Acetaminophen Level < 2 10-30 ug/ml Ethyl Alcohol mg/dL 403.0 0-3 mg/dl Urine Color DK YELLOW Urine Appearance CLEAR CLEAR Urine pH 5.5 4.5-7.5 Urine Specific [place] 1.024 1.000-1.030 Urine Protein 1+ NEG Urine Glucose (UA) NEG NEG Urine Ketones 1+ NEG Urine Occult Blood NEG NEG Urine Nitrite NEG NEG Urine Bilirubin NEG NEG Urine Urobilinogen NEG NEG Urine Leukocyte Esterase NEG NEG Urine WBC (Auto) 0 0-5 /hpf Urine RBC (Auto) 0-4 0-4 /hpf Urine Hyaline Casts (Auto) 0 0-5 /lpf Urine Epithelial Cells (Auto) 10-20 0-5 /lpf Urine Bacteria (Auto) NEG NEG Urine Opiates Screen NEG NEG Urine Methadone, Qualitative NEG NEG Urine Barbiturates NEG NEG Urine Phencyclidine (PCP) Level NEG NEG Ur Amphetamine/Methamphetamine NEG NEG MDMA (Ecstasy) Screen NEG NEG Urine Benzodiazepines Screen POS NEG Urine Cocaine Metabolite NEG NEG Urine Marijuana (THC) NEG NEG Ammonia 29.0 11-32 umol/L Impression Assessment and Plan Pt is a 51 yo female who presents to ER with alcohol intoxication, worsening confusion Metabolic encephalopathy secondary to alcohol intoxication - Will place on obs tele at this time due to withdrawal seizure on last admission. Alcohol level noted to be 403. Will start on librium 25 mg PO TID in addition to ativan per protocol. Banana bag given in ER. Will also check B12, folate. Pt denies any active suicidal ideation. Pt states she will look into detox programs. Case management consulted for discharge planning. Depression with substance abuse - Will consult psychiatry Neuropathy - Cont on neurontin Pt is FULL CODE VTE Prophylaxis VTE Risk Assessment Done? Y/N: Yes Risk Level: Moderate
[2017-06-26 20:00] VITALS: BP 115/70; PULSE 106; TEMP 36.6; O2SAT 94; Ht 168.9 cm; Wt 64.1 kg
[2017-06-26] MEDS: GABAPENTIN 300 MG CAP PO SCH (21:14)
[2017-06-26] MEDS: CHLORDIAZEPOXIDE 25 MG CAP PO SCH (21:14)
[2017-06-26] MEDS: LORAZEPAM 2 MG/ML 1 ML VIAL IV PRN ×2 (21:19→23:23)
[2017-06-26 23:00] VITALS: BP 115/74; PULSE 109; TEMP 37.2; O2SAT 93
[2017-06-27] VITALS (7 sets, daily range): BP systolic 119–149; BP diastolic 75–93; PULSE 66–115; TEMP 36.6–37; O2SAT 93–97
[2017-06-27] MEDS ORDERED: NURSING VERBAL MED ORDER ONE (00:45)
[2017-06-27] MEDS ORDERED: LORAZEPAM 2 MG/ML 1 ML VIAL IV STA (00:47)
[2017-06-27] MEDS: ONDANSETRON INJ 2 MG/ML 2 ML VIAL IV PRN (00:54)
[2017-06-27 07:08] LABS: BASO % 0.8 %; BASO ABS # 0.03 K/uL (0-0.2); COMPLETE YES; EOS % 1.1 %; HEMATOCRIT 32.6 % (37-47); IG% 0.3 %; LYMPH % 19.2 %; LYMPH ABS # 0.71 K/uL (1.2-3.4); MEAN CELL VOLUME 90.6 fL (80-100); MEAN CORPUSCULAR HEMOGLOBIN 30.8 pg (25-34); MEAN PLATELET VOLUME 8.9 fL (7.4-10.4); MONO % 5.4 %; NEUT % 73.2 %; PLATELET COUNT 281 K/uL (130-400); WHITE BLOOD COUNT 3.69 K/uL (4.8-10.8)
[2017-06-27 07:23] LABS: BUN/CREATININE RATIO 11.2 (10-20); CALCIUM 8.3 mg/dl (8.5-10.1); CREATININE 0.84 mg/dl (0.60-1.20); POTASSIUM 3.7 mmol/L (3.5-5.1)
[2017-06-27] MEDS: GABAPENTIN 300 MG CAP PO SCH ×3 (07:59→20:36)
[2017-06-27] MEDS: CHLORDIAZEPOXIDE 25 MG CAP PO SCH ×3 (07:59→20:36)
[2017-06-27] MEDS: LORAZEPAM 2 MG/ML 1 ML VIAL IV PRN (08:00)
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
[2017-06-27] MEDS ORDERED: EUCERIN CR 120 GM JAR EXT ONE (16:13)
--- NOTE | 2017-06-27 16:33 | Progress Note ---
Subjective Date of Service: Jun 27, 2017. Subjective Pt evaluation today including: conversation w/ patient, physical exam, chart review, lab review, conversation w/ information security consultant, review of inpatient medication list feeling better not shaky no racing heart no anxiety denies SI. notes to me that she was sober for probably months before this episode (records and psychiatry recollection of recent events of course show this to not be the case) notes she's worried about if her won't take her back. notes that he drinks too "and at least i've admitted that i have a problem, he's just rum-coke -rum-coke and doesn't think he has anything wrong" when asked about goals she notes that she wants to get back to her house in [place] and that she would then be busy doing laundry, taking care of the pool, playing tennis with friends etc. when asked about if that were not able to happen, her back up plan is that she would hope her would buy her a house so she could have a place to live. later after discussions with psych and case management, she is amenable to rehab Problem List Medical Problems: (1) Alcohol abuse Status: Acute (2) Alcohol abuse Status: Acute (3) Alcohol use with intoxication Status: Acute (4) Alcoholism Status: Chronic (5) Anxiety Status: Chronic (6) Change in mental status Status: Acute (7) Dehydration Status: Acute (8) Depression Status: Acute (9) History of seizures Status: Acute (10) Medication refill Status: Acute (11) Mood disorder Status: Acute (12) Psoriasis Status: Chronic (13) Suicidal thoughts Status: Acute Review of Systems related to nursing that her skin was itchy, otherwise all other ROS otherwise negative except for as above Objective Vital Signs Date Time Temp Pulse Resp B/P (MAP) Pulse Ox O2 Delivery O2 Flow Rate FiO2 06/27/17 15:15 36.6 66 18 144/90 (108) 97 Room Air 06/27/17 11:34 36.8 86 16 133/83 (100) 97 Room Air 06/27/17 11:18 36.9 94 16 97 06/27/17 08:00 Room Air 06/27/17 07:47 36.9 94 16 128/81 (97) 97 Room Air 06/27/17 04:00 36.9 115 16 119/75 (90) 93 Room Air 06/27/17 04:00 Room Air 06/26/17 23:59 Room Air 06/26/17 23:00 37.2 109 18 115/74 (88) 93 Room Air 06/26/17 20:00 36.6 106 18 115/70 94 Room Air 06/26/17 18:01 103 129/78 06/26/17 17:45 93 15 96 06/26/17 17:01 121/75 06/26/17 16:45 99 15 Physical Exam General Appearance: no apparent distress Eyes: EOMI ENT: hearing grossly normal Neck: trachea midline Respiratory/Chest: no respiratory distress, no accessory muscle use Extremities: normal range of motion Neurologic/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: 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, alert Skin: normal color, + pertinent finding (fairly dry) Laboratory Results Last 24 Hours Test 06/26/17 20:24 06/27/17 06:14 Vitamin B12 Level 939 pg/mL Folate > 24.00 ng/mL White Blood Count 3.69 K/uL Red Blood Count 3.60 M/uL Hemoglobin 11.1 g/dL Hematocrit 32.6 % Mean Corpuscular Volume 90.6 fL Mean Corpuscular Hemoglobin 30.8 pg Mean Corpuscular Hemoglobin Concent 34.0 g/dl Platelet Count 281 K/uL Mean Platelet Volume 8.9 fL Neutrophils (%) (Auto) 73.2 % Lymphocytes (%) (Auto) 19.2 % Monocytes (%) (Auto) 5.4 % Eosinophils (%) (Auto) 1.1 % Basophils (%) (Auto) 0.8 % Neutrophils # (Auto) 2.70 K/uL Lymphocytes # (Auto) 0.71 K/uL Monocytes # (Auto) 0.20 K/uL Eosinophils # (Auto) 0.04 K/uL Basophils # (Auto) 0.03 K/uL RDW Standard Deviation 57.1 fL RDW Coefficient of Variation 17.2 % Immature Granulocyte % (Auto) 0.3 % Immature Granulocyte # (Auto) 0.01 K/uL Sodium Level 135 mmol/L Potassium Level 3.7 mmol/L Chloride Level 98 mmol/L Carbon Dioxide Level 29 mmol/L Anion Gap 8.0 mmol/L Blood Urea Nitrogen 9 mg/dl Creatinine 0.84 mg/dl Est Creatinine Clear Calc Drug Dose 75.6 ml/min Estimated GFR () 93.3 Estimated GFR (Non- 80.5 BUN/Creatinine Ratio 11.2 Random Glucose 199 mg/dl Calcium Level 8.3 mg/dl Assessment and Plan Pt is a 51 yo female who presents to ER with alcohol intoxication, worsening confusion Metabolic encephalopathy secondary to alcohol intoxication - -improved. no signs of withdrawal -- although if she has been binging more lately than chronic drinking, lower risk for withdrawal; conversely if she has been drinking heavily/frequently again it would be too soon for withdrawal -willing and desirous of going to rehab --> case management working on assistance. because she expresses a desire to get/stay sober, and with her frail social support situation, it does not appear in her best interest to dc home w continued work on rehab as outpt --> this appears quite likely for failure. keep inpatient for now, although stable for med/surg alcohol overdose -due to stress + chronic pattern of behavior. repeatedly (and reliably) denies SI Depression with substance abuse - for rehab Neuropathy - Cont on neurontin dry skin - eucerin DVT proph - ambulation
[2017-06-27] MEDS: EUCERIN CR 120 GM JAR EXT SCH ×3 (16:39→20:36)
[2017-06-27] MEDS: NICOTINE 14 MG/24 HR TDSY TD SCH (21:40)
[2017-06-27] MEDS ORDERED: hydrOXYzine HCL 10 MG TAB PO STA (22:25)
[2017-06-28 05:21] VITALS: PULSE 112
[2017-06-28 07:33] VITALS: BP 115/77; PULSE 89; TEMP 36.4; O2SAT 100
[2017-06-28 09:00] VITALS: O2SAT 100
[2017-06-28] MEDS: EUCERIN CR 120 GM JAR EXT SCH ×4 (09:24→20:40)
[2017-06-28] MEDS: GABAPENTIN 300 MG CAP PO SCH ×3 (09:24→20:40)
[2017-06-28] MEDS: NICOTINE 14 MG/24 HR TDSY TD SCH (09:25)
[2017-06-28] MEDS: CHLORDIAZEPOXIDE 25 MG CAP PO SCH ×3 (09:34→20:39)
[2017-06-28] MEDS ORDERED: LORAZEPAM 1 MG TAB PO STA (12:07)
[2017-06-28 14:49] VITALS: BP 133/87; PULSE 76; TEMP 36.3; O2SAT 100
--- NOTE | 2017-06-28 17:19 | Progress Note ---
Subjective Date of Service: Jun 28, 2017. Subjective Pt evaluation today including: conversation w/ patient, physical exam, chart review, review of inpatient medication list feeling tearful and depressed today. wants to make a change, just scared. wants to go to rehab, hasn't called yet because she's tearful and scared and deosnt wnt to break down crying during phone interview no other new complaints not shaky, not tachycardic Problem List Medical Problems: (1) Alcohol abuse Status: Acute (2) Alcohol abuse Status: Acute (3) Alcohol use with intoxication Status: Acute (4) Alcoholism Status: Chronic (5) Anxiety Status: Chronic (6) Change in mental status Status: Acute (7) Dehydration Status: Acute (8) Depression Status: Acute (9) History of seizures Status: Acute (10) Medication refill Status: Acute (11) Mood disorder Status: Acute (12) Psoriasis Status: Chronic (13) Suicidal thoughts Status: Acute Review of Systems all other ROS otherwise negative except for as above Objective Vital Signs Date Time Temp Pulse Resp B/P (MAP) Pulse Ox O2 Delivery O2 Flow Rate FiO2 06/28/17 14:49 36.3 76 18 133/87 (102) 100 Room Air 06/28/17 09:00 100 Room Air 06/28/17 07:33 36.4 89 18 115/77 (90) 100 Room Air 06/27/17 23:58 37.0 80 18 149/93 (111) 97 Room Air 06/27/17 23:20 Room Air Physical Exam General Appearance: no apparent distress Eyes: EOMI ENT: hearing grossly normal Neck: trachea midline Respiratory/Chest: no respiratory distress, no accessory muscle use 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 no signs of withdrawal -willing and desirous of going to rehab -->encouraged her to call. stable for rehab once set up alcohol overdose -due to stress + chronic pattern of behavior. repeatedly (and reliably) denies SI Depression with substance abuse - for rehab, for now, gave empathy and support Neuropathy - Cont on neurontin dry skin - eucerin has helped DVT proph - ambulation
[2017-06-28] MEDS: LORAZEPAM 1MG IV PHA DISPENSED IV PRN ×2 (20:01→23:59)
[2017-06-28 22:41] VITALS: BP 144/93; PULSE 87; TEMP 37; O2SAT 99
[2017-06-29 07:21] VITALS: BP 121/85; PULSE 86; TEMP 36.6; O2SAT 98
[2017-06-29] MEDS: CHLORDIAZEPOXIDE 25 MG CAP PO SCH ×3 (07:45→20:30)
[2017-06-29] MEDS: EUCERIN CR 120 GM JAR EXT SCH ×4 (07:46→20:30)
[2017-06-29] MEDS: GABAPENTIN 300 MG CAP PO SCH ×3 (07:46→20:30)
[2017-06-29] MEDS: NICOTINE 14 MG/24 HR TDSY TD SCH (07:47)
[2017-06-29 08:00] VITALS: O2SAT 98
[2017-06-29 14:58] VITALS: BP 143/92; PULSE 86; TEMP 36.7; O2SAT 96
[2017-06-29 17:00] VITALS: O2SAT 98
[2017-06-29] MEDS: TRAZODONE HCL 50 MG TAB PO SCH (20:31)
[2017-06-29 20:35] LABS: HYDROXYETHYLFLURAZEPAM CONF NEGATIVE NG/ML (CUTOFF=50); HYDROXYMIDAZOLAM NEGATIVE NG/ML (CUTOFF=50); HYDROXYTRIAZOLAM CONF NEGATIVE NG/ML (CUTOFF=50); TEMAZEPAM CONF NEGATIVE NG/ML (CUTOFF=50)
[2017-06-29 22:34] VITALS: BP 147/95; PULSE 78; TEMP 36.8; O2SAT 98
[2017-06-29] MEDS: LORAZEPAM 1MG IV PHA DISPENSED IV PRN (23:38)
[2017-06-30 07:59] VITALS: BP 124/80; PULSE 82; TEMP 36.4; O2SAT 94
[2017-06-30] MEDS: EUCERIN CR 120 GM JAR EXT SCH ×4 (08:25→20:55)
[2017-06-30] MEDS: NICOTINE 14 MG/24 HR TDSY TD SCH (08:25)
[2017-06-30] MEDS: CHLORDIAZEPOXIDE 25 MG CAP PO SCH ×3 (08:25→20:54)
[2017-06-30] MEDS: GABAPENTIN 300 MG CAP PO SCH ×3 (08:25→20:54)
[2017-06-30 11:02] VITALS: O2SAT 94
[2017-06-30] MEDS: LORAZEPAM 1MG IV PHA DISPENSED IV PRN (13:43)
[2017-06-30 14:30] VITALS: BP 121/84; PULSE 86; TEMP 36.4; O2SAT 100
[2017-06-30] MEDS ORDERED: ATV/1 PO (16:32)
[2017-06-30] MEDS ORDERED: CHLO25CA10 PO ×2 (16:32)
[2017-06-30] MEDS ORDERED: DSY50 PO (16:32)
--- NOTE | 2017-06-30 16:40 | Discharge Instructions ---
Discharge Instructions Date of Service Jun 30, 2017. Admission Reason for Admission: Alcohol Abuse, Change In Mental Status Discharge Discharge Diagnosis / Problem: Alcohol abuse Discharge Goals Goal(s): Decrease discomfort, Improve function, Diagnostic testing, Therapeutic intervention Activity Recommendations Activity Level: Up Ad Malia . Additional Information Patient informed of condition: Yes Advance Directives: No DNR: No Level of Care: Other (Substance abuse rehab) Communicable Disease: No Prognosis: Stable Instructions / Follow-Up Instructions / Follow-Up The patient was admitted to the hospital after being found in her hotel room with an alcohol overdose. The patient was started on Librium 25 mg by mouth three times a day and as needed Ativan. The patient did not have any seizures and did not have any withdrawal symptoms aside from anxiety. The patient was evaluated by psychiatry but did not meet inpatient psych criteria. She is medically stable and ready for discharge to [facility]. Medications: *Continue Librium taper with Librium 25 mg by mouth twice daily for 2 days, then 25 mg by mouth once daily for 1 day, then stop. *Ativan 1 mg by mouth up to every 6 hours as needed for anxiety. *Trazodone 50 by mouth at bedtime as needed for insomnia. *Continue home gabapentin 300 mg by mouth three times a day. Follow up: *Abdomen/pelvis CT scan had revealed cystic lesions on the pancreas. Follow up with gastroenterology and a follow up MRI of the pancreas in 12 months is recommended. *Follow up with primary care provider in 1 week regarding hospital stay. Please seek medical attention if the patient experiences fevers, chills, sweats , seizures, chest pain, shortness of breath, nausea, vomiting, numbness or tingling. Current Hospital Diet Patient's current hospital diet: Regular Diet Discharge Diet Recommended Diet: Regular Diet Pending Studies Studies pending at discharge: no Laboratory Results Hemoglobin A1c Test 06/13/17 22:35 Range/Units Estimated Average Glucose 108 mg/dl Hemoglobin A1c 5.4 4.5-5.6 % Medical Emergencies . Who to Call and When: Medical Emergencies: If at any time you feel your situation is an emergency, please call 911 immediately. . Non-Emergent Contact Non-Emergency issues call your: Primary Care Provider Call Non-Emergent contact if: you have a fever, you have any medication questions . Past History Medical & Surgical History: (1) Alcohol abuse (2) Neuropathy . "Provider Documentation" section prepared by Sharlene Prado. . Core Measure Problem Core Measures: None
--- NOTE | 2017-06-30 16:51 | Hospitalist Progress Note ---
Hospitalist Progress Note Date of Service Jun 30, 2017. (Sharlene Prado ., SKYLERC) Subjective Pt evaluation today including: conversation w/ patient, physical exam, chart review, lab review, review of inpatient medication list Pain: None PO Intake: Tolerating PO diet Voiding: no voiding problems Patient is very anxious. She is attempting to track down her personal items that were left at her hotel but was told that someone else had picked up her belongings, and now she does not know where they could be. She denies any physical complaints, but complains of "being emotional" and anxious today. The patient denies fevers, chills, sweats, chest pain, palpitations, claudication, cough, wheezing, shortness of breath, nausea, vomiting, abdominal pain, dysuria , hematuria, urinary retention, paralysis, weakness, numbness and tingling. Additional Comments: See HPI for pertinent positives and negatives. All other systems reviewed and negative. (Sharlene Prado ., ISSA-C) Objective Vital Signs Date Time Temp Pulse Resp B/P (MAP) Pulse Ox O2 Delivery O2 Flow Rate FiO2 06/30/17 14:30 36.4 86 18 121/84 (96) 100 Room Air 06/30/17 11:02 94 Room Air 06/30/17 08:30 Room Air 06/30/17 07:59 36.4 82 18 124/80 (95) 94 Room Air 06/30/17 00:47 Room Air 06/29/17 22:34 36.8 78 16 147/95 (112) 98 Room Air 06/29/17 21:24 Room Air 06/29/17 17:00 98 Room Air (Sharlene Prado, ISSA-C) Physical Exam Notes: General appearance: Well-developed, well-nourished, no apparent distress Head: Normocephalic, atraumatic Eyes: Normal inspection, PERRL, EOMI ENT: Normal ENT inspection, hearing grossly normal, pharynx normal Neck: Supple, no JVD, trachea midline Respiratory/Chest: Lungs clear to auscultation, normal breath sounds, no respiratory distress Cardiovascular: Regular rate & rhythm, no gallop, no murmur Abdomen/GI: Normal bowel sounds, non-tender, soft Extremities/Musculoskeletal: Normal inspection, no calf tenderness, no pedal edema Neurological/Psych: +Anxious, at times tearful. Alert, oriented x 3 Skin: Normal color, warm/dry, no rash (Sharlene Prado ., SKYLERC) Assessment and Plan 51 y/o female with a history of alcohol abuse and neuropathy who presents to ER with alcohol intoxication, worsening confusion. Metabolic encephalopathy secondary to alcohol intoxication--resolved -Admit to telemetry due to h/o seizure previous admission. Stable, transferred to med/surg -No s/s of withdrawal except anxiety which is directed towards her being able to get a hold of her belongings, phone, money, etc. -Accepted to inpt rehab at [facility]. Transport tomorrow Alcohol overdose -Due to stress + chronic pattern of behavior. Denies SI -Taper Librium to 25 mg PO BID x 2 days, then 25 mg PO qd x 1 day, then stop -D/C IV Ativan -Ativan 1 mg PO q6h prn anxiety. Will discharge w/3 day supply -Repeat LFTs in am. Likely elevated due to ETOH Depression with substance abuse, insomnia -Trazodone 50 mg PO qhs prn insomnia Neuropathy -Continue gabapentin 300 mg PO TID Cystic lesions on pancreas -Shown on a/p CT. 2 cystic lesions likely either IPMNs or sequela of pancreatitis. 12 month follow up with pancreas MRI recommend, as well as GI follow up DVT prophylaxis -Encourage ambulation Code Status -Level I, FULL RESUSCITATION STATUS (Sharlene Prado ., SKYLERC) Reviewed: Pt Seen/Exam by Me (Becca Irby MD) History Physician Operations Program Manager Supervision Note: I interviewed and examined the patient. Discussed with ISSA Prado and agree with findings and plan as documented in the note. Any exceptions or clarifications are listed here: Pt anxious about going to rehab as she has none of her personal belongings, but says she is committed to going. No tremors, no other signs of withdrawal. Vitals reviewed Anxious, NAD, AAOx3 RRR no mgr CTAB no wcr Abd +BS soft NT ND Ext no edema 51 yo female with EtOH dependence, h/o seizures from EtOH withdrawal, here for EtOH detox and plans for rehab placement tomorrow -taper down Librium, ativan prn use -continue gabapentin as chronic med -encouraged smoking cessation Documented By: Becca Irby (Becca Irby MD)
[2017-06-30] MEDS: LORAZEPAM 1 MG TAB PO PRN (20:54)
[2017-06-30] MEDS: TRAZODONE HCL 50 MG TAB PO SCH (20:55)
[2017-06-30 23:46] VITALS: BP 118/76; PULSE 84; TEMP 36.6; O2SAT 93
[2017-07-01] MEDS: LORAZEPAM 1 MG TAB PO PRN (07:18)
[2017-07-01] MEDS: ONDANSETRON INJ 2 MG/ML 2 ML VIAL IV PRN (07:18)
[2017-07-01 08:00] VITALS: BP 113/80; PULSE 91; TEMP 36.6; O2SAT 95
[2017-07-01] MEDS ORDERED: RANITAB6 PO (08:35)
[2017-07-01] MEDS: EUCERIN CR 120 GM JAR EXT SCH (09:00)
[2017-07-01] MEDS ORDERED: RANITIDINE HCL 150 MG TAB PO SCH (09:00)
[2017-07-01] MEDS: CHLORDIAZEPOXIDE 25 MG CAP PO SCH (09:33)
[2017-07-01] MEDS: NICOTINE 14 MG/24 HR TDSY TD SCH (09:34)
[2017-07-01] MEDS: GABAPENTIN 300 MG CAP PO SCH (09:34)
[2017-07-01 09:54] VITALS: BP 113/80; PULSE 91; TEMP 36.6; O2SAT 95
--- NOTE | 2017-07-01 23:18 | Discharge Summary ---
"Discharge Summary Date of Service Jul 01, 2017. Discharge Summary Admission Date: Jun 30, 2017 at 13:42 Discharge Date: Jul 01, 2017 Discharge Disposition: Rehab (Alcohol rehab) Principal Diagnosis: Alcohol withdrawal/detoxification Problems/Secondary Diagnoses: Alcohol dependence with h/o seizure Anxiety Psoriasis Peripheral neuropathy Toxic encephalopathy secondary to alcohol intoxication Alcohol overdose Depression insomnia Cystic lesions on pancreas- likely either IPMNs or sequelae of pancreatitis Current smoker Hepatic steatosis Elevated transaminases Procedures: 1) CT ABD/PELVIS IV CONTRAST ONLY CLINICAL HISTORY: Abdominal pain status post trauma. Ethanol intoxication. COMPARISON STUDY: None. TECHNIQUE: Following the IV administration of 120 mL of Optiray-320, CT scan of the abdomen and pelvis was performed from the lung bases to the proximal femurs. Images are reviewed in the axial, sagittal, and coronal planes. IV contrast was administered without complication. A dose lowering technique was utilized adhering to the principles of ALARA. CT DOSE: 847.61 mGy.cm FINDINGS: Lower chest: There are minor basilar atelectatic changes Liver: There is mild hepatic steatosis. No focal masses are visualized. There is no evidence of acute hepatic injury. Gallbladder: There is mild hyperenhancement of the gallbladder wall. No focal masses are visualized. Spleen: Normal in size and attenuation. Pancreas: There are pancreatic calcifications suggesting chronic pancreatitis. There is mild dilatation of the pancreatic duct within the head and neck. This a nonspecific finding which could be secondary to chronic pancreatitis. There are 2 cystic lesions within the uncinate process measuring 10 mm and 8 mm respectively. These likely represent either IPMNs, or the sequela of pancreatitis. 12 month follow-up is recommended. Adrenal glands: Unremarkable. Kidneys: There is symmetric renal cortical enhancement. The kidneys are normal in size without hydronephrosis. Bowel: There are no transition zones to indicate bowel obstruction. There is colonic diverticulosis. There are no acute inflammatory changes. There is no mesenteric fluid. There are no extraluminal air collections. Peritoneum: There is minimal pelvic fluid. No free air is visualized. Vasculature: The abdominal aorta is normal in course and caliber. Adenopathy: None. Pelvic viscera: The bladder, and pelvic viscera are unremarkable. Skeletal structures: There are age-indeterminate fractures of the right 10th and 11th and 12th ribs. IMPRESSION: 1. Nondisplaced fractures of the right 10th 11th and 12th ribs, possibly old 2. No evidence of solid organ injury 3. Pancreatic calcifications consistent with chronic pancreatitis. 4. Mild dilatation of pancreatic duct within the head and neck. 2 cystic lesions within the uncinate process measuring 10 mm and 8 mm respectively. These likely represent either IPMNs or the sequela of pancreatitis. 12 month follow-up is recommended. 5. Hepatic steatosis Consultations: Psychiatry Medication Reconciliation New Medications: Chlordiazepoxide (Librium) 25 Mg Cap 25 MG PO BID for 2 Days, #4 CAP Chlordiazepoxide (Librium) 25 Mg Cap 25 MG PO DAILY for 1 Day, #1 CAP Take on 07/03 Lorazepam (Ativan) 1 Mg Tab 1 MG PO Q6H PRN for Anxiety for 3 Days, #12 TAB Ranitidine Hcl (Zantac 150 Maximum Streng) 150 Mg Tab 1 TAB PO BID for 30 Days, #60 TAB Trazodone HCl (Trazodone HCl) 50 Mg Tab 50 MG PO HS PRN for Insomnia for 30 Days, #30 TAB Continued Medications: Gabapentin (Gabapentin) 100 Mg Cap 300 MG PO TID Referrals At Discharge Follow up Referrals: Family Practice Referral - Within 1 Week with RV. Mobley MD Discharge Exam Pt feeling excited to go to rehab. No complaints. Physical Exam|: Vitals reviewed NAD, AAOx3 RRR no mgr CTAB no wcr Abd +BS soft NT ND Ext no edema Review of Systems: Constitutional: No fever, No chills Eyes: No problem reported ENT: No problem reported Respiratory: No shortness of breath Cardiovascular: No chest pain Abdomen: + problem reported (mild dyspepsia with anxiety about leaving today ), No pain, No nausea, No vomiting Musculoskeletal: No problem reported Genitourinary - Female: No problem reported Neurologic: No problem reported Psychiatric: + anxiety, + substance abuse Hematologic / Lymphatic: No problem reported Integumentary: No problem reported Hospital Course This pt is a 51 y/o female with a history of alcohol dependence and withdrawal seizures, anxiety disorder, and peripheral neuropathy who presents to ER with alcohol intoxication, worsening confusion. Acute toxic encephalopathy secondary to alcohol intoxication--resolved -Admitted to telemetry due to h/o seizure previous admission. Stable, transferred to med/surg -No s/s of withdrawal except anxiety -Seen by Psychiatry and no inpatient Psychiatric stay is necessary -Accepted to inpt rehab at [facility] Alcohol overdose, Elevated transaminases, Hepatic steatosis -Due to stress + chronic pattern of behavior. Denies SI -Taper Librium to 25 mg PO BID x 2 days, then 25 mg PO qd x 1 day, then stop -Ativan 1 mg PO q6h prn anxiety. Will discharge w/3 day supply -Repeat LFTs trending downward with abstinence from EtOH-likely from alcohol- induced hepatitis Depression with substance abuse, insomnia -started Trazodone 50 mg PO qhs prn insomnia Neuropathy-stable -Continue gabapentin 300 mg PO TID Cystic lesions on pancreas -Shown on CT Abd/pel- 2 cystic lesions likely either IPMNs or sequelae of chronic pancreatitis. 12 month follow up with pancreas MRI recommend, as well as GI follow up Current Smoker -encouraged smoking cessation, nicotine patch prn Discharged to inpatient rehab Total Time Spent: Greater than 30 minutes This includes examination of the patient, discharge planning, medication reconciliation, and communication with other providers. Discharge Instructions Please refer to the electronic Patient Visit Report (Discharge Instructions) for additional information. Follow-Up PCP within 1 week after discharge from rehab Additional Copies To RV. Mobley MD"
== END 2017-07-01 11:05 | DRG 917 ==
LOC: EDBD 14:10 → C.EDC 14:16 → C.2T 18:14 → ENRESERV 18:40 → EDBEDREQ 18:41 → ENRESERV 06-27 11:01 → C.MS2W 06-27 11:37 → OBSVTOIN 06-30 13:42
PROVIDERS: ADMIT Hospitalist; ATTEND Family Medicine
DX: T51.0X1A Toxic effect of ethanol, accidental (unintentional), initial encounter (principal); G92 Toxic encephalopathy; F10.220 Alcohol dependence with intoxication, uncomplicated; E03.9 Hypothyroidism, unspecified; G62.9 Polyneuropathy, unspecified; F32.9 Major depressive disorder, single episode, unspecified; Z79.899 Other long term (current) drug therapy; F17.200 Nicotine dependence, unspecified, uncomplicated; K76.0 Fatty (change of) liver, not elsewhere classified; G47.00 Insomnia, unspecified

== ENCOUNTER → 2017-09-01 | Outpatient (CLI) | payer OTHER ==
[~2017-09-01] MED LIST changes: -CYAN100073 PO; -CYM/30 PO; +DSY50 PO; -FLV1 PO
[2017-09-01 13:39] LABS: BASO % 0.4 %; BASO ABS # 0.02 K/uL (0-0.2); COMPLETE YES; EOS % 5.5 %; HEMATOCRIT 37.2 % (37-47); IG% 0.2 %; LYMPH ABS # 1.46 K/uL (1.2-3.4); MEAN CELL VOLUME 89.9 fL (80-100); MEAN CORPUSCULAR HEMOGLOBIN 29.5 pg (25-34); MEAN CORPUSCULAR HGB CONC 32.8 g/dl (32-36); MEAN PLATELET VOLUME 10.3 fL (7.4-10.4); MONO % 8.4 %; NEUT % 55.5 %; PLATELET COUNT 217 K/uL (130-400); RED BLOOD COUNT 4.14 M/uL (4.2-5.4); WHITE BLOOD COUNT 4.87 K/uL (4.8-10.8)
[2017-09-01 13:56] LABS: ALT/SGPT 29 U/L (12-78); AMYLASE 34 U/L (25-115); BLOOD UREA NITROGEN 6 mg/dl (7-18); BUN/CREATININE RATIO 8.3 (10-20); CALCIUM 9.3 mg/dl (8.5-10.1); CARBON DIOXIDE 23 mmol/L (21-32); CHLORIDE 105 mmol/L (98-107); CHOLESTEROL 190 mg/dl (0-200); CREATININE 0.74 mg/dl (0.60-1.20); GLUCOSE 117 mg/dl (70-99); POTASSIUM 3.9 mmol/L (3.5-5.1); SODIUM 138 mmol/L (136-145); TRIGLYCERIDES 119 mg/dl (0-150); VERY LOW DENSITY LIPOPROT CALC 24 mg/dl
[2017-09-01 14:05] LABS: ALKALINE PHOSPHATASE 118 U/L (45-117); AST/SGOT 23 U/L (15-37); CHOLESTEROL/HDL RATIO 3.7; HDL CHOLESTEROL 52 mg/dl; LDL CHOLESTEROL CALCULATED 114 mg/dl
== END | disposition home or self-care (01) ==
LOC: C.LAB1850 10:00
PROVIDERS: ATTEND Physician Assistant
DX: R94.6 Abnormal results of thyroid function studies (principal); E55.9 Vitamin D deficiency, unspecified

== ENCOUNTER 2017-11-27 00:03 | Inpatient (IN) | payer OTHER ==
[~2017-11-27] VITALS: Ht 167.6 cm; Wt 67.1 kg
[2017-11-27] VITALS (18 sets, daily range): BP systolic 102–149; BP diastolic 56–81; PULSE 95–129; TEMP 36.6–37.1; O2SAT 95–100; Ht 167.6 cm; Wt 67.1 kg
[2017-11-27] MEDS ORDERED: SODIUM CHLORIDE 0.9% 1000ML 1,000 ML IV STA (00:11)
[2017-11-27] MEDS ORDERED: SODIUM CHLORIDE 0.9% 1000ML 2,000 ML IV STA (00:11)
[2017-11-27] MEDS ORDERED: OCTREOTIDE IV BOLUS & DRIP IV STA (00:21)
[2017-11-27] MEDS ORDERED: THIAMINE HCL INJ 200 MG in SODIUM CHLORIDE 0.9% 50ML 50 ML IV STA (00:28)
[2017-11-27] MEDS ORDERED: PANTOprazole INJ 80 MG in DEXTROSE 5% 100ML IV STA (00:31)
[2017-11-27] MEDS ORDERED: OCTREOTIDE BOLUS FROM BAG IV STA (00:32)
[2017-11-27 00:38] LABS: ISTAT CREATININE 2.8 mg/dl (0.6-1.3); ISTAT IONIZED CALCIUM 0.86 mmol/l (1.12-1.32); ISTAT POTASSIUM 6.5 mEq/L (3.3-5.0)
[2017-11-27] MEDS ORDERED: OCTREOTIDE ACETATE INJ 500 MCG in NSS 100ML IV SCH (00:45)
[2017-11-27] MEDS: PANTOprazole INJ 40 MG in DEXTROSE 5% 100ML IV SCH ×2 (00:47→06:25)
[2017-11-27 00:48] LABS: HEMATOCRIT 43.3 % (37-47); HEMOGLOBIN 14.8 g/dL (12.0-16.0); MEAN CELL VOLUME 85.6 fL (80-100); MEAN CORPUSCULAR HEMOGLOBIN 29.2 pg (25-34); MEAN CORPUSCULAR HGB CONC 34.2 g/dl (32-36); MEAN PLATELET VOLUME 9.5 fL (7.4-10.4); PLATELET COUNT 236 K/uL (130-400); RED CELL DISTRIBUTION WIDTH CV 16.3 % (11.5-14.5); RED CELL DISTRIBUTION WIDTH SD 51.1 fL (36.4-46.3); WHITE BLOOD COUNT 16.89 K/uL (4.8-10.8)
[2017-11-27 00:58] LABS: PTT PATIENT 23.4 SECONDS (21.0-31.0)
[2017-11-27] MEDS ORDERED: PIPERACILLIN/TAZOBACTAM 4.5 GM/100ML D5W IV STA (01:00)
[2017-11-27] MEDS ORDERED: NovoLIN-R INSULIN PER UNIT CHARGE IV STA (01:03)
[2017-11-27] MEDS ORDERED: DEXTROSE 50% 50 ML SYR IV STA (01:03)
[2017-11-27] MEDS ORDERED: HYDR25CA PO (01:07)
[2017-11-27] MEDS ORDERED: BISM262S7 PO (01:08)
[2017-11-27 01:10] LABS: ALBUMIN 3.6 gm/dl (3.4-5.0); ALKALINE PHOSPHATASE 204 U/L (45-117); ALT/SGPT 91 U/L (12-78); BLOOD UREA NITROGEN 35 mg/dl (7-18); CALCIUM 8.1 mg/dl (8.5-10.1); CARBON DIOXIDE 11 mmol/L (21-32); CREATININE 2.87 mg/dl (0.60-1.20); GLUCOSE 136 mg/dl (70-99); LIPASE 280 U/L (73-393); TOTAL PROTEIN 7.8 gm/dl (6.4-8.2)
[2017-11-27 01:19] LABS: BASO % 0.2 %; BASO ABS # 0.03 K/uL (0-0.2); EOS % 0.1 %; EOS ABS # 0.01 K/uL (0-0.5); IG# 0.12 K/uL (0.00-0.02); LYMPH % 10.3 %; LYMPH ABS # 1.74 K/uL (1.2-3.4); MONO % 5.3 %; NEUT % 83.4 %; NEUT ABS # 14.09 K/uL (1.4-6.5)
[2017-11-27 01:25] LABS: POTASSIUM 4.4 mmol/L (3.5-5.1); SODIUM 139 mmol/L (136-145)
[2017-11-27 01:30] LABS: AST/SGOT 211 U/L (15-37)
[2017-11-27 01:58] LABS: CKMB 28.8 ng/ml (0.5-3.6)
[2017-11-27] MEDS ORDERED: ALBUT/IPRATROP 3MG/0.5MG NEB 3 ML VIAL INH PRN (02:45)
[2017-11-27] MEDS ORDERED: ICU PROTOCOL FOR HYPERGLYCEMIA PRN (02:45)
[2017-11-27] MEDS ORDERED: DEXTROSE 50% 50 ML SYR IV PRN (02:45)
[2017-11-27] MEDS ORDERED: GLUCOSE 40% GEL 15 GM TUBE PO PRN (02:45)
[2017-11-27] MEDS ORDERED: GLUCAGON FOR INJ 1 MG VIAL SQ PRN (02:45)
[2017-11-27] MEDS ORDERED: ACETAMINOPHEN 325 MG TAB PO PRN (02:45)
[2017-11-27] MEDS ORDERED: GLUCOSE 10 TABS/TUBE PO PRN (02:45)
[2017-11-27] MEDS ORDERED: LORAZEPAM 2 MG/ML 1 ML VIAL IV PRN (02:45)
[2017-11-27] MEDS ORDERED: PIPERACILL/TAZOBAC CONSULT ACTIVE PRN (03:15)
[2017-11-27 03:53] LABS: HEMATOCRIT 36.6 % (37-47); HEMOGLOBIN 12.2 g/dL (12.0-16.0); MEAN CELL VOLUME 86.1 fL (80-100); MEAN CORPUSCULAR HEMOGLOBIN 28.7 pg (25-34); MEAN CORPUSCULAR HGB CONC 33.3 g/dl (32-36); MEAN PLATELET VOLUME 9.6 fL (7.4-10.4); PLATELET COUNT 151 K/uL (130-400); RED CELL DISTRIBUTION WIDTH CV 15.8 % (11.5-14.5); RED CELL DISTRIBUTION WIDTH SD 50.1 fL (36.4-46.3); WHITE BLOOD COUNT 16.22 K/uL (4.8-10.8)
[2017-11-27] MEDS ORDERED: MULTI-VITAMIN INFUSION INJ 10 ML, THIAMINE HCL INJ 100 MG, FoLIC ACID INJ 1 MG in SODIU... IV ONE (04:00)
[2017-11-27 04:18] LABS: BASO % 0.1 %; BASO ABS # 0.02 K/uL (0-0.2); IG# 0.09 K/uL (0.00-0.02); LYMPH % 11.5 %; LYMPH ABS # 1.87 K/uL (1.2-3.4); MONO % 6.4 %; MONO ABS # 1.04 K/uL (0.11-0.59); NEUT % 81.4 %
--- NOTE | 2017-11-27 04:19 | Critical Care Consultation ---
Critical Care Consultation Date of Consultation: Nov 27, 2017. Attending Physician: Adelso Younger M.D. Reason for Consultation: 51-year-old female with history of chronic alcohol abuse presenting with concerns for hematemesis currently receiving octreotide and Protonix drips. Concern for aspiration event with hypoxia in the emergency department. History of Present Illness Patient is a 51-year-old female with a significant past medical history of chronic alcohol abuse, anxiety, and depression presenting to the emergency department after reportedly being found laying in her bedroom covered with dark brown emesis. Patient is a known alcoholic with previously unsuccessful cessation interventions. She was evaluated in the emergency department for concerns for possible upper GI bleed. She received Protonix drip and bolus, octreotide drip, IV Zosyn, 2 L normal saline, thiamine, and supplemental O2 as there was concern for aspiration as she did develop some hypoxia while in the emergency department requiring nonrebreather. Patient was found to have an elevated white blood cell count of greater than 16,000. Her H&H was stable. Initial [id number] potassium was found to be elevated at 6.5. Provider noted concerns for peak T waves on EKG. Because of this, the patient received 10 units of IV insulin and an amp of D50. GI was consult by phone and his agreement with treatment plan and close monitoring. Upon my evaluation in the emergency department, the patient is visibly intoxicated and smells of alcohol. She reports that she has been drinking for the past 2-3 years fairly heavily. She reports that it is related to a divorce. She reports that she drinks approximately 3-4 glasses of wine per day. This evening, she admits to drinking one half of a fifth of vodka. She admits to drinking straight. When questioned if she was drinking heavily in an attempt to harm herself, specifically kill herself, she reports adamantly that she was not attempting to kill herself. After taking this evening, she reports that her mother sat down with her to have an extensive conversation that was very involved. She became nauseous and started vomiting. At that point, the patient's mother elected to call EMS against the patient's wishes. Patient was concerned for her insurance coverage for ambulance ride. Regardless, the patient had vomited multiple times and was found with brown vomit on herself. She was also found to be incontinent of urine. Patient reports that she does remember vomiting and describes the vomit as brown. She reports that she also had drank a Slim fast today which she reports is a staple of her diet. She denies any ongoing GI symptoms for the last few days. She denies falling or striking her head. She reports no discomfort at this time. She currently denies any headaches, blurry vision, chest pain, palpitations, shortness of breath, pleuritic pain, cesar hematemesis, hematochezia, melena, hematuria, or dysuria. Patient is an alcoholic who is been seen in this facility on multiple occasions. She has had withdrawal seizures in the past. She denies any other illicit substance use. She lives with her mother. Past Medical/Surgical History Medical Problems: (1) Alcohol use disorder (2) Alcohol withdrawal (3) Alcohol withdrawal seizure (4) Alcoholism (5) Anxiety (6) Hematemesis without nausea (7) Hypothyroidism (8) Major depressive disorder, recurrent episode with anxious distress (9) Neuropathy (10) Nicotine dependence (11) Psoriasis (12) Suicidal ideation (13) Urinary tract infection (14) Vitamin D deficiency Family History FH: cancer FH: heart disease Hypertension Noncontributory Social History Smoking Status: Current Every Day Smoker Smokeless Tobacco Use: No Alcohol Use: heavy Drug Use: none Marital Status: Housing Status: lives with family Occupation Status: unemployed Allergies Coded Allergies: No Known Allergies (Unverified , 06/14/17) Home Medications Scheduled Gabapentin (Gabapentin), 300 MG PO TID Scheduled PRN Bismuth Subsalicylate (Pepto-Bismol), 15 ML PO TID PRN for GI Upset Hydroxyzine Pamoate (Vistaril), 1 CAP PO TID PRN for Anxiety Current Inpatient Medications Current Inpatient Medications Medications (Trade) Dose Ordered Sig/Gisselle Route Start Time Stop Time Status Last Admin Dose Admin Pantoprazole Sodium 40 mg/ Dextrose 100 ml @ 20 mls/hr Q5H IV 11/27/17 00:45 12/27/17 00:44 11/27/17 00:47 20 MLS/HR Acetaminophen (Tylenol Tab) 650 mg Q4H PRN PO 11/27/17 02:45 12/27/17 02:44 Albuterol/ Ipratropium (Duoneb) 3 ml Q6R PRN INH 11/27/17 02:45 12/27/17 02:44 Miscellaneous Information (Icu Protocol For Hyperglycemia) 1 ea PRN PRN N/A 11/27/17 02:45 11/29/17 02:44 Glucose (Glucose 40% Gel) 15-30 GRAMS 15 GRAMS... UD PRN PO 11/27/17 02:45 12/27/17 02:44 Glucose (Glucose Chew Tab) 4-8 Tablets 4 Tabl... UD PRN PO 11/27/17 02:45 12/27/17 02:44 Dextrose (Dextrose 50% 50ML Syringe) 25-50ML OF 50% DW IV FOR... UD PRN IV 11/27/17 02:45 12/27/17 02:44 Glucagon (Glucagon Inj) 1 mg UD PRN SQ 11/27/17 02:45 12/27/17 02:44 Multivitamins 10 ml/Thiamine HCl 100 mg/Folic Acid 1 mg/Sodium Chloride 1,011.2 ml @ 500 mls/ hr Q2H2M ONCE IV 11/27/17 04:00 11/27/17 06:01 Thiamine HCl 100 mg/Syringe 10 ml @ 2 mls/min Q24H IV 11/28/17 02:00 12/28/17 01:59 Lorazepam (Ativan Inj) 1 mg ONE PRN IV 11/27/17 02:45 Piperacillin Sod/ Tazobactam Sod 3.375 gm/Dextrose 115 ml @ 28.75 mls/ hr Q8H IV 11/27/17 08:00 12/04/17 07:59 Miscellaneous Information (Consult) 1 ea UD PRN N/A 11/27/17 03:15 12/27/17 03:14 Review of Systems A complete 10-point Review of Systems was discussed with the patient, with pertinent positives and negatives listed in the History of Present Illness. All remaining Review of Systems questions can be considered negative unless otherwise specified. Physical Exam Date Time Temp Pulse Resp B/P (MAP) Pulse Ox O2 Delivery O2 Flow Rate FiO2 11/27/17 02:22 117 15 100 Nasal Cannula 4.0 11/27/17 02:16 114/66 11/27/17 02:15 Nasal Cannula 4.0 11/27/17 02:07 122 14 100 11/27/17 02:02 128/44 11/27/17 01:56 125 25 97 Non-Rebreather 12.0 11/27/17 01:45 106/58 11/27/17 01:41 116 19 99 11/27/17 01:31 91/60 11/27/17 01:26 117 19 100 11/27/17 01:17 100/61 11/27/17 01:11 119 12 98 11/27/17 01:06 90/64 11/27/17 01:03 118 21 97 Non-Rebreather 12.0 11/27/17 00:59 36.7 117 28 94/64 95 Nasal Cannula 2.0 11/27/17 00:53 106 15 97 Nasal Cannula 5.0 11/27/17 00:50 Non-Rebreather 12.0 11/27/17 00:43 111 19 83 11/27/17 00:35 Nasal Cannula 5.0 11/27/17 00:33 112 14 83 Room Air 11/27/17 00:23 117 23 98 Room Air 11/27/17 00:15 Nasal Cannula 2.0 11/27/17 00:15 117 11/27/17 00:10 94/64 VITAL SIGNS - Vital signs and nursing notes were reviewed. GENERAL - 51-year-old female appearing older than her stated age who is in no acute distress. Smells of alcohol. Slurred speech, but communicates well with provider and answers questions appropriately. SKIN - Without rashes, erythema, or ecchymosis. HEAD - NC/AT. EYES - PERRL with EOMI bilaterally. Sclera anicteric. Palpebral conjunctiva pink and moist with no injection noted. EARS - No deformities of external structures noted on gross examination bilaterally. NOSE - Midline and without cyanosis. MOUTH/OROPHARYNX - Without perioral cyanosis. Buccal mucosa pink and moist and without leukoplakia. Good dentition noted. NECK - Neck with FROM. Supple to palpation. No lymphadenopathy noted. No nuchal rigidity. LUNGS - Chest wall symmetric without accessory muscle use, intercostals retractions, or central cyanosis. Normal vesicular breath sounds CTA B/L. No wheezes, rales, or rhonchi appreciated. CARDIAC - RRR with S1/S2. No murmur, rubs, or gallops appreciated. ABDOMEN - Abdominal contour flat without pulsations or visible masses. BS normoactive all four quadrants. No tenderness, palpable masses, hepatosplenomegaly, or ascites noted. EXTREMITIES - No clubbing or peripheral cyanosis. No pretibial edema present. +3 /5 radial and dorsalis pedis pulses palpated throughout. +5/5 strength noted in UE/LE bilaterally. NEUROLOGIC - Cranial nerves II through XII grossly intact. PSYCH - A&Ox3 and cooperates fully with examiner despite obvious state of intoxication. Pt is very pleasant and interacts well with examiner. Denies any suicidal or homicidal ideations at this point. Laboratory Results Last 24 Hours Test 11/27/17 00:23 11/27/17 00:26 11/27/17 01:36 11/27/17 02:44 White Blood Count 16.89 K/uL Red Blood Count 5.06 M/uL Hemoglobin 14.8 g/dL Hematocrit 43.3 % Mean Corpuscular Volume 85.6 fL Mean Corpuscular Hemoglobin 29.2 pg Mean Corpuscular Hemoglobin Concent 34.2 g/dl Platelet Count 236 K/uL Mean Platelet Volume 9.5 fL Neutrophils (%) (Auto) 83.4 % Lymphocytes (%) (Auto) 10.3 % Monocytes (%) (Auto) 5.3 % Eosinophils (%) (Auto) 0.1 % Basophils (%) (Auto) 0.2 % Neutrophils # (Auto) 14.09 K/uL Lymphocytes # (Auto) 1.74 K/uL Monocytes # (Auto) 0.90 K/uL Eosinophils # (Auto) 0.01 K/uL Basophils # (Auto) 0.03 K/uL RDW Standard Deviation 51.1 fL RDW Coefficient of Variation 16.3 % Immature Granulocyte % (Auto) 0.7 % Immature Granulocyte # (Auto) 0.12 K/uL Prothrombin Time 10.3 SECONDS Prothromb Time International Ratio 1.0 Activated Partial Thromboplast Time 23.4 SECONDS Partial Thromboplastin Ratio 0.9 Sodium Level 139 mmol/L Potassium Level 4.4 mmol/L Chloride Level 93 mmol/L Carbon Dioxide Level 11 mmol/L Anion Gap 35.0 mmol/L 29.0 mmol/L Blood Urea Nitrogen 35 mg/dl Creatinine 2.87 mg/dl Estimated GFR () 21.1 Estimated GFR (Non- 18.2 BUN/Creatinine Ratio 12.3 Random Glucose 136 mg/dl Calcium Level 8.1 mg/dl Magnesium Level 2.8 mg/dl Total Bilirubin 1.0 mg/dl Direct Bilirubin 0.6 mg/dl Aspartate Amino Transf (AST/SGOT) 211 U/L Alanine Aminotransferase (ALT/SGPT) 91 U/L Alkaline Phosphatase 204 U/L Total Creatine Kinase 1230 U/L Creatine Kinase MB 28.8 ng/ml Creatine Kinase MB Ratio 2.3 Troponin I < 0.015 ng/ml Total Protein 7.8 gm/dl Albumin 3.6 gm/dl Lipase 280 U/L Ethyl Alcohol mg/dL 333.4 mg/dl Bedside Hemoglobin 16.7 g/dl Bedside Hematocrit 49 % Bedside Sodium 136 mEq/L Bedside Potassium 6.5 mEq/L Bedside Chloride 100 mEq/L Bedside Total CO2 16 mEq/l Bedside Blood Urea Nitrogen 53 mg/dl Bedside Creatinine 2.8 mg/dl Bedside Glucose (other) 126 mg/dl Bedside Ionized Calcium (Bri) 0.86 mmol/l Diagnostic Results Radiological imaging and reports were reviewed by myself. Assessment & Plan (1) Anxiety (2) Depression (3) Alcohol dependence with acute alcoholic intoxication with complication (4) Hematemesis (5) Acute alcohol intoxication (6) High anion gap metabolic acidosis (7) LIAM (acute kidney injury) (8) Alcohol use disorder (9) Neuropathy (10) Alcohol withdrawal seizure Reason Critically Ill: 51-year-old female with history of chronic alcohol abuse presenting with concerns for hematemesis currently receiving octreotide and Protonix drips. Concern for aspiration event with hypoxia in the emergency department. Neuro - * CAM ICU: NEGATIVE * Alcohol Dependence with Acute Intoxication: * EtOH 333.4 mg/dL * History of withdraw seizure during previous visit. * Will institute CIWA protocols. * Daily Banana bag/Thiamine/Folate * Will restart Gabapentin when more alert. * Ativan PRN withdraw s/s. * Anxiety/Depression: * Adamant that she did not drink in an effort to harm, specifically kill, herself. * Continue home medications. * Assess from a psych standpoint when less intoxicated. Cardiac - * No h/o Cardiac disease. * Will monitor on telemetry in the setting of ??UGIB. Respiratory - * Hypoxia in the setting of EtOH intoxication and vomiting: * Presumed to be aspiration pneumonitis. * Received IV Zosyn in the ED. Will continue. * Supplemental O2 PRN. * Serial CXRs. * Nebs GI - * Possible Hematemesis in an intoxicated patient: * Noted to have dark brown emesis present by EMS. * Rectal exam was Hemoccult NEGATIVE. * Per ED provider, Guaiac study of dried brown vomit on patient's shoulder was Hemoccult POSITIVE. * Started on Octreotide gtt and Protonix bolus/gtt - will continue until GI able to evaluated. * No known h/o varices. * Will US liver w/ attention to the portal system and liver density. * Notes suggestive of possible h/o Hep C, however was unable to assess this in the records. Did add Hepatitis panel for completion. * In treating down the path of UGIB w/ current emphasis on ??Variceal bleed, will continue Zosyn which should prophylactically cover for SBP pending further evaluation. * Will guaiac all stools. * Appreciate GI consultation. RENAL/LYTES - * Hyperkalemia: * Point of care testing demonstrated K+ of 6.5. ED provider with concerns of peaked T's on EKG. Treated with insulin/glucose. * Lab K+ drawn at a similar time found to be 4.4. * Will repeat PRPs q4h in the acute phase. * Will watch K+ closely 2/2 aggressive treatment in the ED and risk for Hypokalemia and subsequent dysrhythmias. * Acute Kidney Injury: * Likely 2/2 dehydration, poor diet, vomiting, etc. * Will hydrate aggressively. * Will recheck PRP prior to IVFs 2/2 c/o need to replace K+ * High Anion Gap Metabolic Acidosis: * Likely 2/2 acute alcohol intoxication. * Will confirm w/ addition of labs - osmolality, lactic acid, salicylates, etc. * Plan to rule out other possible sources as well, particularly in a mentally fragile individual w/ prior h/o suicidality. - * No Campos at this point. Will consider if necessary. ENDO - * No h/o DM. * Reported h/o Hypothyroidism, however no medications on record: * Will check TSH. HEME - * Stable H&H: * Will trend q4h in the setting of ??UGIB/variceal bleed. ID - * Possible aspiration event: * Zosyn. Will continue with this for dual coverage for SBP prophylaxis. * Added blood cultures for completeness. * Will check ProCal. * Lactate likely unhelpful in the acute setting as this is expected to be elevated from EtOH in High Anion Gap Metabolic Acidosis. LINES/IV ACCESS - * PIVs intact. * Will assess need for CVL in the event that patient requires pressors or more gtts. DVT PROPHYLAXIS - * Hold on chemoprophylaxis in the setting of ??UGIB. * SCDs. I have personally spent 45 minutes of critical care time in the direct management of this patient. This is a life/limb threatening event. This includes time spent evaluating patient, direct bedside care, chart review, placing orders, interpretation of diagnostic studies, discussion with consultants, patient, and family members, as well as other required patient management activities. This time is exclusive of all separately billable procedures, and teaching time and separate from and in addition to any other critical care service time. Thank you for this consultation allow us to be part of this patient's care. Please refer to my attending physician's documentation for any further recommendations. Attending addendum, The patient was seen, examined independently, for further details refer to my colleague noted above, agree with assessment and plan my colleague Michael De Santiago. Physical exam revealed a middle-age female, somewhat apprehended, denies any shortness of breath, no pain, waxing and waning in confusion, no tremor, S1-S2 regular rate and rhythm, lungs are clear, abdomen is benign, no edema. Neurologically she is oriented but tremulous. Tachycardia noted. Labs were reviewed as well as imaging. Impression: #1 DT. Although the patient denies being in withdrawal in the past but she does have seizures related to alcohol withdrawal in the past. #2 depression. #3 persistent nausea and vomiting. Related to recent alcohol ingestion. Plan: #1 continue with IV hydration. #2 oral intake was tolerable. #3 I will start the patient on phenobarbital and stated of benzodiazepine. #4 no need for GI bleeding workup as patient hematocrit has been stable and no evidence of GI bleed. #5 continue GI prophylaxis only and DVT prophylaxis as well. #6 case discussed with psychiatric, appreciate their input, the patient refused their assessment and plan. We'll monitor the patient for additional 24 hours and then transfer her to regular floor. Case discussed with the staff on rounds and details. Critical care time spent with the patient was 60 minutes. Problem Qualifiers (1) Hematemesis: Nausea presence: unspecified Qualified Codes: K92.0 - Hematemesis (2) Acute alcohol intoxication: Complication of substance-induced condition: with unspecified complication Qualified Codes: F10.929 - Alcohol use, unspecified with intoxication, unspecified (3) Alcohol withdrawal seizure: Complication of substance-induced condition: with unspecified complication Qualified Codes: F10.239 - Alcohol dependence with withdrawal, unspecified; R56.9 - Unspecified convulsions
--- NOTE | 2017-11-27 04:23 | EMERGENCY ROOM VISIT NOTE ---
History First contact with patient: 00:05 Chief Complaint: RESPIRATORY DISTRESS Stated Complaint: ALCOHOL USE DISORDER, HEMATEMESIS WITHOUT NAUSEA Nursing Triage Summary: Pt is recovering alcoholic, started drinking again a week ago. EMS was called and pt was found lying in bedroom covered in possible emesis, dark brown. Pt alert and oriented but confused to events, she states she hasn't drank alcohol, other fluids, or eaten in 4-5 days. Periphery cold to touch. Incontinent of urine. EMS reports orthostatic dizziness and systolic BP in 80's en route. Pt complains of thirst. History of Present Illness The patient is a 51 year old female who presents to the Emergency Room with complaints of vomiting with alcohol intoxication. Patient states she has been drinking heavily for years. Patient was sober for a few weeks but then has been drinking again these past few days heavily. Patient states she was vomiting and felt weak and called EMS. Patient states her emesis was dark brown in nature. Patient denies any blood in her emesis or black or bloody stools. Patient states she has not been eating much. She has had withdrawal seizures from alcohol in the past. No known esophageal varices. Patient denies chest pain, dyspnea, abdominal pain, back pain, fever, chills. Patient states she feels quite weak. EMS states that the patient was found covered in dark brown emesis and there was more in the household and bathroom. They report the odor of alcohol. Review of Systems An 10 system review of systems was completed with positives and pertinent negatives listed in the HPI. Past Medical/Surgical History Medical Problems: (1) Acute alcohol intoxication (2) LIAM (acute kidney injury) (3) Alcohol dependence with acute alcoholic intoxication with complication (4) Alcohol use disorder (5) Alcohol withdrawal (6) Alcohol withdrawal seizure (7) Alcoholism (8) Anxiety (9) Anxiety (10) Depression (11) Hematemesis (12) Hematemesis without nausea (13) High anion gap metabolic acidosis (14) Hypothyroidism (15) Major depressive disorder, recurrent episode with anxious distress (16) Neuropathy (17) Nicotine dependence (18) Psoriasis (19) Suicidal ideation (20) Urinary tract infection (21) Vitamin D deficiency Family History FH: cancer FH: heart disease Hypertension Social History Smoking Status: Current Every Day Smoker Alcohol Use: heavy Drug Use: none Marital Status: Housing Status: lives with family Occupation Status: unemployed Current/Historical Medications Scheduled Gabapentin (Gabapentin), 300 MG PO TID Scheduled PRN Bismuth Subsalicylate (Pepto-Bismol), 15 ML PO TID PRN for GI Upset Hydroxyzine Pamoate (Vistaril), 1 CAP PO TID PRN for Anxiety Physical Exam Vital Signs Date Time Temp Pulse Resp B/P (MAP) Pulse Ox O2 Delivery O2 Flow Rate FiO2 11/27/17 02:02 128/44 11/27/17 01:56 125 25 97 Non-Rebreather 12.0 11/27/17 01:45 106/58 11/27/17 01:41 116 19 99 11/27/17 01:31 91/60 11/27/17 01:26 117 19 100 11/27/17 01:17 100/61 11/27/17 01:11 119 12 98 11/27/17 01:06 90/64 11/27/17 01:03 118 21 97 Non-Rebreather 12.0 11/27/17 00:59 36.7 117 28 94/64 95 Nasal Cannula 2.0 11/27/17 00:53 106 15 97 Nasal Cannula 5.0 11/27/17 00:50 Non-Rebreather 12.0 11/27/17 00:43 111 19 83 11/27/17 00:35 Nasal Cannula 5.0 11/27/17 00:33 112 14 83 Room Air 11/27/17 00:23 117 23 98 Room Air 11/27/17 00:15 Nasal Cannula 2.0 11/27/17 00:15 117 11/27/17 00:10 94/64 Physical Exam VITALS: Vitals are noted on the nurse's note and reviewed by myself. Vital signs hypotensive and tachycardic GENERAL: White female pale with dark brown emesis covering her shirt and face with EtOH odor, in acute distress SKIN: The skin was without rashes, erythema, edema, or bruising. There is no tenting of the skin. Capillary reflex less than 2 seconds. HEAD: Normocephalic atraumatic. EARS: External auditory canals clear, tympanic membranes pearly song without erythema or effusion bilaterally. EYES: Pupils equal round and reactive to light and accommodation. Conjunctivae with injection, sclerae without icterus. Extraocular movements intact. NOSE: Patent, turbinates without inflammation or discharge. No sinus tenderness. MOUTH: Mucous membranes dry without erythema or exudate. Uvula midline. Airway patent. Tongue does not deviate. NECK: Supple without nuchal rigidity. No lymphadenopathy. No thyromegaly. Cervical spine is nontender. No JVD. HEART: Tachycardic rate and rhythm LUNGS: Clear to auscultation bilaterally without wheezes, rales or rhonchi. No retractions or accessory muscle use. ABDOMEN: Positive bowel sounds x 4. Normal tympanic percussion. Soft, nontender, without masses or organomegaly. Christopher sign negative. No guarding or rebound tenderness. MUSCULOSKELETAL: No muscle atrophy, erythema, or edema noted. Full range of motion without joint tenderness in all extremities. No tenderness to palpation. Normal gait. Strength 5/5 throughout. NEURO: Patient was alert and oriented to person place and time. No focal neurological deficits. Medical Decision & Procedures Laboratory Results Test 11/27/17 00:23 11/27/17 00:26 11/27/17 01:36 Immature Granulocyte % (Auto) 0.7 % White Blood Count 16.89 K/uL (4.8-10.8) Red Blood Count 5.06 M/uL (4.2-5.4) Hemoglobin 14.8 g/dL (12.0-16.0) Hematocrit 43.3 % (37-47) Mean Corpuscular Volume 85.6 fL (80-100) Mean Corpuscular Hemoglobin 29.2 pg (25-34) Mean Corpuscular Hemoglobin Concent 34.2 g/dl (32-36) Platelet Count 236 K/uL (130-400) Mean Platelet Volume 9.5 fL (7.4-10.4) Neutrophils (%) (Auto) 83.4 % Lymphocytes (%) (Auto) 10.3 % Monocytes (%) (Auto) 5.3 % Eosinophils (%) (Auto) 0.1 % Basophils (%) (Auto) 0.2 % Neutrophils # (Auto) 14.09 K/uL (1.4-6.5) Lymphocytes # (Auto) 1.74 K/uL (1.2-3.4) Monocytes # (Auto) 0.90 K/uL (0.11-0.59) Eosinophils # (Auto) 0.01 K/uL (0-0.5) Basophils # (Auto) 0.03 K/uL (0-0.2) Immature Granulocyte # (Auto) 0.12 K/uL (0.00-0.02) Prothrombin Time 10.3 SECONDS (9.0-12.0) Prothromb Time International Ratio 1.0 (0.9-1.1) Activated Partial Thromboplast Time 23.4 SECONDS (21.0-31.0) Partial Thromboplastin Ratio 0.9 Total Bilirubin 1.0 mg/dl (0.2-1) Direct Bilirubin 0.6 mg/dl (0-0.2) Aspartate Amino Transf (AST/SGOT) 211 U/L (15-37) Alanine Aminotransferase (ALT/SGPT) 91 U/L (12-78) Alkaline Phosphatase 204 U/L (45-117) Total Creatine Kinase 1230 U/L (26-192) Creatine Kinase MB 28.8 ng/ml (0.5-3.6) Troponin I < 0.015 ng/ml (0-0.045) Total Protein 7.8 gm/dl (6.4-8.2) Albumin 3.6 gm/dl (3.4-5.0) Ethyl Alcohol mg/dL 333.4 mg/dl (0-3) Bedside Hemoglobin 16.7 g/dl (12.0-16.0) Bedside Hematocrit 49 % (37-47) Bedside Sodium 136 mEq/L (135-144) Bedside Potassium 6.5 mEq/L (3.3-5.0) Bedside Chloride 100 mEq/L (101-112) Bedside Total CO2 16 mEq/l (24-31) Bedside Blood Urea Nitrogen 53 mg/dl (7-18) Bedside Creatinine 2.8 mg/dl (0.6-1.3) Bedside Glucose (other) 126 mg/dl (70-99) Bedside Ionized Calcium (Bri) 0.86 mmol/l (1.12-1.32) Creatine Kinase MB Ratio (0-3.0) Medications Administered Medications (Trade) Dose Ordered Sig/Gisselle Route Start Time Stop Time Status Last Admin Dose Admin Sodium Chloride 2,000 ml @ 999 mls/hr Q2H1M STAT IV 11/27/17 00:11 11/27/17 02:11 DC 11/27/17 00:30 999 MLS/HR Sodium Chloride 1,000 ml @ 125 mls/hr Q8H STAT IV 11/27/17 00:11 11/27/17 03:26 DC 11/27/17 01:29 125 MLS/HR Octreotide Acetate (Sandostatin Iv Bolus & Drip) 1 ea NOW STAT IV 11/27/17 00:21 11/27/17 00:23 DC 11/27/17 00:21 1 EA Pantoprazole Sodium 80 mg/ Dextrose 120 ml @ 480 mls/hr NOW STAT IV 11/27/17 00:31 11/27/17 00:45 DC 11/27/17 00:47 480 MLS/HR Pantoprazole Sodium 40 mg/ Dextrose 100 ml @ 20 mls/hr Q5H IV 11/27/17 00:45 12/27/17 00:44 11/27/17 00:47 20 MLS/HR Thiamine HCl 200 mg/Sodium Chloride 52 ml @ 208 mls/hr NOW STAT IV 11/27/17 00:28 11/27/17 00:42 DC 11/27/17 00:55 208 MLS/HR Octreotide Acetate 500 mcg/ Sodium Chloride 105 ml @ 10 mls/hr [id number] IV 11/27/17 00:45 11/27/17 03:27 DC 11/27/17 00:46 10 MLS/HR Piperacillin Sod/ Tazobactam Sod (Zosyn Iv) 4.5 gm NOW STAT IV 11/27/17 01:00 11/27/17 01:01 DC 11/27/17 01:29 4.5 GM Insulin Human Regular (novoLIN-R U-100 PER UNIT) 10 units NOW STAT IV 11/27/17 01:03 11/27/17 01:06 DC 11/27/17 01:21 10 UNITS Dextrose (Dextrose 50% 50ML Syringe) 50 ml NOW STAT IV 11/27/17 01:03 11/27/17 01:06 DC 11/27/17 01:27 50 ML ED Course Prior records/ancillary studies reviewed. Triage Nursing notes reviewed. Additional history obtained from the EMS. The patient's history was concerning for possible gastrointestinal bleeding. Differential diagnosis: Etiologies such as diverticulosis, AVM, coagulopathy, colitis, inflammatory bowel disease, malignancy, Lupe-Celaya tear, esophagitis, peptic ulcer disease , variceal bleed, gastritis, epistaxis, fissure, hemorrhoids, as well as others were entertained. Physical exam: As above. The patients vital signs were hypotensive and tachycardic. ER treatment provided: 3 IVs were initiated, 2 L of normal saline, Protonix drip, octreotide, thiamine , insulin, glucose On reassessment the patient felt better. Diagnostics interpreted by me: ECG: Normal sinus, normal intervals, mild hyperacute T waves in the lateral leads, no QRS widening, rate of 111. Impression sinus tachycardia with mild hyperacute T waves in the lateral leads interpreted by myself and my attending The labs revealed i-STAT potassium was 6.5 creatinine was 2.8. Repeat blood work showed improved potassium after IV fluids are initiated and blood work was drawn from a different IV site Alcohol 334 Normal coags. Leukocytosis. Stable H&H Patient was typed and crossmatched and consented to blood transfusion if needed Imaging studies: Chest x-ray with no acute consolidation, pneumothorax Frear my interpretation Consultation: A consultation was placed with the rn otolaryngology Michael PARSONS and he came and evaluated the patient. The patient was admitted to Dr. Younger, hospitalist. The case was discussed and diagnostics were reviewed. The patient was evaluated in the ER for further treatment. I also consulted GI, Dr. Smith, and agrees with current treatment and will evaluate the patient in the morning. He approves of the Protonix, octreotide, IV fluids and transfusion if warranted. This appears to be consistent with acute GI bleed with acute renal failure with alcohol intoxication who was hypotensive and tachycardic. Patient also had initial hyperkalemia and was treated with hydration and insulin and glucose. Patient was also hypoxic. There was concern of possible aspiration. She is given Zosyn. Patient had great improvement after being medicated as above. She became more alert. Vital signs did improve. Patient was reassessed multiple times. Prior charts were reviewed. Patient has been here multiple times for alcohol overdose. She is a known alcoholic. She was typed and crossmatched for blood if needed for the hematemesis. Initial H&H are stable. Patient does not have acute abdomen on exam. Patient denies any chest pain or dyspnea. By the evaluation outlined above emergent etiologies such as esophageal perforation, coagulopathy, gastritis, epistaxis, malignancy, inflammatory bowel disease, as well as others were deemed relatively unlikely. My attending also did evaluate this patient as I made him aware of how ill this patient was immediately. The pt informed about the findings as listed above. All questions were answered and pleased with the treatment. case reviewed with my Attending. Medical Decision As above Medication Reconcilliation Current Medication List: was personally reviewed by me Blood Pressure Screening Patient's blood pressure: Low blood pressure Impression Primary Impression: Upper GI bleed Additional Impressions: Alcohol dependence with acute alcoholic intoxication with complication Acute renal failure Dehydration Hyperkalemia Critical Care I have personally spent greater than 30 minutes of critical care time in the direct management of this patient. This includes bedside care, interpretation of diagnostic studies, and testing, discussion with consultants, patient, and family members, and other required patient management activities. This 30 minutes is in excess of all separately billable procedures. Departure Information Dispostion Still a Patient Condition FAIR Referrals RV. Mobley MD (PCP) Forms HOME CARE DOCUMENTATION FORM, IMPORTANT VISIT INFORMATION Patient Instructions COPD - [facility], Croup - [facility], Asthma - [facility], My [facility] Health Problem Qualifiers
[2017-11-27 04:35] LABS: CALCIUM 6.7 mg/dl (8.5-10.1); CREATININE 2.12 mg/dl (0.60-1.20); PHOSPHORUS 5.9 mg/dl (2.5-4.9); POTASSIUM 3.9 mmol/L (3.5-5.1)
--- NOTE | 2017-11-27 06:17 | DIAGNOSTIC IMAGING REPORT ---
CHEST ONE VIEW PORTABLE CLINICAL HISTORY: gi bleed dysphagia COMPARISON STUDY: 06/26/2017 FINDINGS: The bones soft tissues and hemidiaphragms are normal. The cardiomediastinal silhouette is normal. The lungs are clear. The pulmonary vasculature is normal. Linear density lateral aspect right hemithorax felt to represent overlap artifact IMPRESSION: Negative chest. The above report was generated using voice recognition software. It may contain grammatical, syntax or spelling errors. Electronically signed by: Jalen Farah M.D. 11/27/2017 6:16 AM Dictated Date/Time: 11/27/2017 6:15 AM
[2017-11-27] MEDS ORDERED: ONDANSETRON INJ 2 MG/ML 2 ML VIAL ONE (06:22)
[2017-11-27] MEDS ORDERED: ONDANSETRON INJ 2 MG/ML 2 ML VIAL IV PRN (06:30)
--- NOTE | 2017-11-27 06:38 | DIAGNOSTIC IMAGING REPORT ---
(LIVER) ABDOMEN LIMITED CLINICAL HISTORY: eval portal vein, liver density in EtOH pt pain. Nausea. TECHNIQUE: Ultrasound COMPARISON STUDY: CT 06/26/2017 FINDINGS: Heterogeneous liver suggesting fatty infiltration possibly of early cirrhotic change. Mild distention of the gallbladder. Trace amount of gallbladder sludge. No shadowing gallstones. Poor visibility of the pancreas due to overlying bowel content. Right kidney is negative for process. IMPRESSION: 1. Nonvisualization of the pancreas due to overlying bowel content. 2. Heterogeneous liver suggesting mild fatty infiltration behind with potential early cirrhotic change. 3. Hepatic and portal venous structures are patent. 4. Mild gallbladder distention with a trace amount of gallbladder sludge. The above report was generated using voice recognition software. It may contain grammatical, syntax or spelling errors. Electronically signed by: Jalen Farah M.D. 11/27/2017 6:37 AM Dictated Date/Time: 11/27/2017 6:33 AM
[2017-11-27] MEDS: NORMOSOL R 1,000 ML IV SCH ×3 (07:16→20:55)
[2017-11-27] MEDS ORDERED: PIPERACILL/TAZOBAC IV 3.375 GM in DEXTROSE 5% 100ML 100 ML IV SCH (08:00)
[2017-11-27] MEDS ORDERED: PROCHLORPERAZINE INJ 10 MG in SYRINGE 8 ML IV PRN (08:30)
[2017-11-27 08:40] LABS: HEP C IGG 13 YRS+OLDER_RFLX NEG (NEG)
[2017-11-27 08:51] LABS: HEMATOCRIT 31.3 % (37-47); HEMOGLOBIN 10.7 g/dL (12.0-16.0)
[2017-11-27] MEDS ORDERED: FoLIC ACID INJ 1 MG in SYRINGE 9.8 ML IV SCH (09:00)
[2017-11-27 09:15] LABS: CALCIUM 6.6 mg/dl (8.5-10.1); CREATININE 1.6 mg/dl (0.60-1.20); POTASSIUM 4.2 mmol/L (3.5-5.1)
[2017-11-27] MEDS: PANTOprazole INJ 40 MG in SYRINGE 0 ML IV SCH ×2 (10:36→20:54)
[2017-11-27] MEDS: PHENOBARBITAL SOD IV SCH ×3 (10:36→20:54)
--- NOTE | 2017-11-27 10:42 | Gastrointestinal Consultation ---
Gastrointestinal Consultation Date of Consultation: Nov 27, 2017 Attending Physician: Dr. Hoover Consulting Physician: Dr. Causey Reason for Consultation: question UGI bleed in alcoholic patient History of Present Illness Patient is a 51 year old female patient who is a [place], lives in the [facility] and is currently staying with her mother during a divorce. She admits to intermittent drinking too much, including recently. She was brought to [facility] at the insistence of her mother, because she was intoxicated and weak. She was also having vomiting and dry heaves which continue after admission. She vomited brown liquid which she attributes to having drank chocolate Slim Fast. She denies any epigastric pain, hematemesis, melena or hematochezia. She has never had a GI bleed and has never undergone any endoscopy procedures. She denies frequent NSAID use. On arrival, Hb was 14, and today is 12. BUN on arrival was 35, today 27. Creatinine on arrival was 2.87 and today is 1.6. She is seen and examined in the ICU. She is awake, alert, oriented, a detailed historian. She is tachycardic in the 120's and is dry heaving. She asks to eat and drink, telling me that in the she has had similar nausea/vomiting when withdrawing from alcohol and eating/drinking helps the nausea. Past Medical/Surgical History Medical Problems: (1) Acute alcohol intoxication Status: Acute (2) Acute renal failure Status: Acute (3) LIAM (acute kidney injury) Status: Acute (4) Alcohol abuse Status: Acute (5) Alcohol abuse Status: Acute (6) Alcohol dependence with acute alcoholic intoxication with complication Status: Acute (7) Alcohol use disorder Status: Chronic (8) Alcohol use with intoxication Status: Acute (9) Alcoholism Status: Chronic (10) Anxiety Status: Chronic (11) Anxiety Status: Chronic (12) Change in mental status Status: Acute (13) Dehydration Status: Acute (14) Dehydration Status: Acute (15) Depression Status: Acute (16) Depression Status: Chronic (17) Hematemesis Status: Acute (18) High anion gap metabolic acidosis Status: Acute (19) History of seizures Status: Acute (20) Hyperkalemia Status: Acute (21) Medication refill Status: Acute (22) Mood disorder Status: Acute (23) Neuropathy Status: Chronic (24) Psoriasis Status: Chronic (25) Suicidal thoughts Status: Acute (26) Upper GI bleed Status: Acute Past Medical History: Increased alcohol intake. Peripheral neuropathy, prescribed Gabapentin. Past Surgical History: Dental surgery Family History FH: cancer FH: heart disease Hypertension Social History Smoking Status: Current Every Day Smoker Alcohol Use: heavy Drug Use: none Marital Status: Housing Status: lives with family Occupation Status: unemployed Allergies Coded Allergies: No Known Allergies (Unverified , 06/14/17) Current Medications Home Meds and Scripts Medications Dose Route/Sig Max Daily Dose Days Date Category Pepto-Bismol (Bismuth Subsalicylate) 262 Mg/15 Ml Leonela 15 Ml PO TID PRN 11/27/17 Reported Vistaril (Hydroxyzine Pamoate) 25 Mg Cap 1 Cap PO TID PRN 30 11/27/17 Reported Gabapentin 100 Mg Cap 300 Mg PO TID 06/19/17 Reported Review of Systems Constitutional: + weakness, + fatigue, No fever, No chills, No sweats, No weight loss Eyes: No eye pain, No redness ENT: No sore throat, No trouble swallowing, No pain on swallowing Respiratory: No cough, No wheezing, No shortness of breath, No dyspnea on exertion Cardiac: No chest pain, No edema, No palpitations Abdomen: + see HPI, + nausea, + vomiting Female : No dysuria Neuro: No memory loss, No weakness, No numbness/tingling, No vertigo, No balance problems Psych: No depression symptoms, No anxiety, No insomnia Heme: No abnormal bleeding/bruising, No night sweats Endo: + fatigue, No excessive thirst, No excessive urination Skin: + problem reported (open areas on her heels from wearing ill fitting shoes), No rash, No itch, No new/changing skin lesions, No jaundice Physical Exam Date Time Temp Pulse Resp B/P (MAP) Pulse Ox O2 Delivery O2 Flow Rate FiO2 11/27/17 10:10 122 18 124/64 (84) 95 Room Air 2.0 11/27/17 10:10 122 14 124/68 95 11/27/17 09:04 129 18 112/62 11/27/17 08:00 Room Air 11/27/17 08:00 95 Room Air 11/27/17 08:00 37.0 127 20 111/81 95 11/27/17 08:00 37.0 127 20 111/81 (91) 95 Room Air 11/27/17 07:00 118 20 95 11/27/17 05:00 120 22 102/66 (78) 97 Room Air 11/27/17 04:00 120 22 109/56 (73) 99 Room Air 11/27/17 04:00 99 Room Air 11/27/17 03:00 120 20 102/62 (75) 100 Room Air 2.0 11/27/17 02:50 37.1 115 18 102/62 100 Nasal Cannula 2.0 11/27/17 02:22 117 15 100 Nasal Cannula 4.0 11/27/17 02:16 114/66 11/27/17 02:15 Nasal Cannula 4.0 11/27/17 02:07 122 14 100 11/27/17 02:02 128/44 11/27/17 01:56 125 25 97 Non-Rebreather 12.0 11/27/17 01:45 106/58 11/27/17 01:41 116 19 99 11/27/17 01:31 91/60 11/27/17 01:26 117 19 100 11/27/17 01:17 100/61 11/27/17 01:11 119 12 98 11/27/17 01:06 90/64 11/27/17 01:03 118 21 97 Non-Rebreather 12.0 11/27/17 00:59 36.7 117 28 94/64 95 Nasal Cannula 2.0 11/27/17 00:53 106 15 97 Nasal Cannula 5.0 11/27/17 00:50 Non-Rebreather 12.0 11/27/17 00:43 111 19 83 11/27/17 00:35 Nasal Cannula 5.0 11/27/17 00:33 112 14 83 Room Air 11/27/17 00:23 117 23 98 Room Air 11/27/17 00:15 Nasal Cannula 2.0 11/27/17 00:15 117 11/27/17 00:10 94/64 General Appearance: + mild distress Eyes: normal inspection, EOMI Neck: supple, no adenopathy, thyroid normal Respiratory/Chest: chest non-tender, lungs clear, normal breath sounds, no accessory muscle use, + decreased breath sounds (at the bases) Cardiovascular: regular rate, rhythm, no JVD, no murmur Abdomen: normal bowel sounds, non tender, soft, no organomegaly Extremities: normal inspection, no pedal edema, normal capillary refill Neurologic/Psych: alert, normal mood/affect, oriented x 3 Skin: normal color, no jaundice, warm/dry, no rash, + pertinent finding ( dressings over her heals) Laboratory Results Last 24 Hours Test 11/27/17 00:23 11/27/17 00:26 11/27/17 01:36 11/27/17 03:30 White Blood Count 16.89 K/uL Red Blood Count 5.06 M/uL Hemoglobin 14.8 g/dL Hematocrit 43.3 % Mean Corpuscular Volume 85.6 fL Mean Corpuscular Hemoglobin 29.2 pg Mean Corpuscular Hemoglobin Concent 34.2 g/dl Platelet Count 236 K/uL Mean Platelet Volume 9.5 fL Neutrophils (%) (Auto) 83.4 % Lymphocytes (%) (Auto) 10.3 % Monocytes (%) (Auto) 5.3 % Eosinophils (%) (Auto) 0.1 % Basophils (%) (Auto) 0.2 % Neutrophils # (Auto) 14.09 K/uL Lymphocytes # (Auto) 1.74 K/uL Monocytes # (Auto) 0.90 K/uL Eosinophils # (Auto) 0.01 K/uL Basophils # (Auto) 0.03 K/uL RDW Standard Deviation 51.1 fL RDW Coefficient of Variation 16.3 % Immature Granulocyte % (Auto) 0.7 % Immature Granulocyte # (Auto) 0.12 K/uL Prothrombin Time 10.3 SECONDS Prothromb Time International Ratio 1.0 Activated Partial Thromboplast Time 23.4 SECONDS Partial Thromboplastin Ratio 0.9 Sodium Level 139 mmol/L Potassium Level 4.4 mmol/L Chloride Level 93 mmol/L Carbon Dioxide Level 11 mmol/L Anion Gap 35.0 mmol/L 29.0 mmol/L Blood Urea Nitrogen 35 mg/dl Creatinine 2.87 mg/dl Estimated GFR () 21.1 Estimated GFR (Non- 18.2 BUN/Creatinine Ratio 12.3 Random Glucose 136 mg/dl Calcium Level 8.1 mg/dl Magnesium Level 2.8 mg/dl Total Bilirubin 1.0 mg/dl Direct Bilirubin 0.6 mg/dl Aspartate Amino Transf (AST/SGOT) 211 U/L Alanine Aminotransferase (ALT/SGPT) 91 U/L Alkaline Phosphatase 204 U/L Total Creatine Kinase 1230 U/L Creatine Kinase MB 28.8 ng/ml Creatine Kinase MB Ratio 2.3 Troponin I < 0.015 ng/ml Total Protein 7.8 gm/dl Albumin 3.6 gm/dl Lipase 280 U/L Ethyl Alcohol mg/dL 333.4 mg/dl Bedside Hemoglobin 16.7 g/dl Bedside Hematocrit 49 % Bedside Sodium 136 mEq/L Bedside Potassium 6.5 mEq/L Bedside Chloride 100 mEq/L Bedside Total CO2 16 mEq/l Bedside Blood Urea Nitrogen 53 mg/dl Bedside Creatinine 2.8 mg/dl Bedside Glucose (other) 126 mg/dl Bedside Ionized Calcium (Bri) 0.86 mmol/l Lactic Acid Level 6.0 mmol/L Hepatitis B Surface Antigen NEG Hepatitis C Antibody NEG Test 11/27/17 03:40 11/27/17 04:17 11/27/17 06:17 11/27/17 08:44 White Blood Count 16.22 K/uL Red Blood Count 4.25 M/uL Hemoglobin 12.2 g/dL 10.7 g/dL Hematocrit 36.6 % 31.3 % Mean Corpuscular Volume 86.1 fL Mean Corpuscular Hemoglobin 28.7 pg Mean Corpuscular Hemoglobin Concent 33.3 g/dl Platelet Count 151 K/uL Mean Platelet Volume 9.6 fL Neutrophils (%) (Auto) 81.4 % Lymphocytes (%) (Auto) 11.5 % Monocytes (%) (Auto) 6.4 % Eosinophils (%) (Auto) 0.0 % Basophils (%) (Auto) 0.1 % Neutrophils # (Auto) 13.20 K/uL Lymphocytes # (Auto) 1.87 K/uL Monocytes # (Auto) 1.04 K/uL Eosinophils # (Auto) 0.00 K/uL Basophils # (Auto) 0.02 K/uL RDW Standard Deviation 50.1 fL RDW Coefficient of Variation 15.8 % Immature Granulocyte % (Auto) 0.6 % Immature Granulocyte # (Auto) 0.09 K/uL Sodium Level 139 mmol/L 139 mmol/L Potassium Level 3.9 mmol/L 4.2 mmol/L Chloride Level 101 mmol/L 106 mmol/L Carbon Dioxide Level 14 mmol/L 12 mmol/L Anion Gap 24.0 mmol/L 21.0 mmol/L Blood Urea Nitrogen 33 mg/dl 27 mg/dl Creatinine 2.12 mg/dl 1.60 mg/dl Est Creatinine Clear Calc Drug Dose 29.4 ml/min 38.9 ml/min Estimated GFR () 30.5 42.8 Estimated GFR (Non- 26.3 36.9 BUN/Creatinine Ratio 15.4 16.6 Random Glucose 204 mg/dl 192 mg/dl Osmolality 367 mOsm/kg Calcium Level 6.7 mg/dl 6.6 mg/dl Phosphorus Level 5.9 mg/dl Magnesium Level 2.1 mg/dl Lipase 285 U/L Vitamin B12 Level 639 pg/mL Folate > 24.00 ng/mL Thyroid Stimulating Hormone (TSH) 0.438 uIu/ml Chemistry Specimen Hemolysis Salicylates Level 2.2 mg/dl Acetaminophen Level < 2 ug/ml Blood Gas Sample Site L Radial Bedside Blood Gas pH (LAB) 7.26 Bedside Blood Gas pCO2 (LAB) 26 mmHg Bedside Blood Gas pO2 (LAB) 110 mmHg Bedside Blood Gas HCO3 (LAB) 12 meq/L Bedside Blood Gas Total CO2 12 mEq/l Bedside Blood Gas Base Excess (LAB) -16.0 meq/L Bedside Blood Gas O2 Saturation 98.0 % Archie Test Pass Oxygen Delivery Device Cannula Bedside Glucose 207 mg/dl Lactic Acid Level 2.8 mmol/L RUQ US 11/26/17: 1. Nonvisualization of the pancreas due to overlying bowel content. 2. Heterogeneous liver suggesting mild fatty infiltration behind with potential early cirrhotic change. 3. Hepatic and portal venous structures are patent. 4. Mild gallbladder distention with a trace amount of gallbladder sludge Impression Patient is a 51 year old female who is detoxing from alcohol. She has nausea/ vomiting. It is likely that she has alcoholic gastritis and/or esophagitis which sometimes cause small amts of gastric bleeding, however it is unlikely that she has a significant GI bleed (hemoglobin remains in the normal range; there is a compensatory raise in Cr as well as the mild increase in the BUN; denies melena). Plan 1. BID PPI. 2. Clear liquids po. 3. Monitor Hb/Hct daily. 4. Regarding possible cirrhosis on US, normal blood indices argues against this , however, for long term care pharmacist survival, most important is for her to completely abstain from alcohol. After she is able to abstain for several months, then she should establish care with a medical charge entry specialist or scrap metal burner to follow her fatty liver disease and w/u for possible cirrhosis. I performed a history and physical examination of the patient. I have discussed the patient's case, impression and plan with UBALDO Rojas. Her note reflects my findings and plan. No signs of active GI bleeding. Endoscopy will not add to her care at this point. Connor Causey MD
[2017-11-27 10:52] LABS: HEMATOCRIT 31.9 % (37-47); HEMOGLOBIN 10.9 g/dL (12.0-16.0)
[2017-11-27] MEDS ORDERED: THIAMINE HCL IV SCH (11:00)
[2017-11-27] MEDS ORDERED: SODIUM CHLORIDE 0.9% IV SCH (11:00)
[2017-11-27] MEDS ORDERED: FOLIC ACID IV SCH (11:00)
[2017-11-27 11:15] LABS: CALCIUM 6.8 mg/dl (8.5-10.1); CREATININE 1.52 mg/dl (0.60-1.20); POTASSIUM 3.9 mmol/L (3.5-5.1)
[2017-11-27 11:29] LABS: CKMB 76.5 ng/ml (0.5-3.6)
--- NOTE | 2017-11-27 11:38 | Psychiatric Consultation ---
Consultation Date of Consultation Nov 27, 2017. Identifying Data 51-year-old female with a long history of alcohol dependence and depression as well as treatment noncompliance who is admitted to the ICU with alcohol intoxication and vomiting. Psychiatry was consulted for depression. Chief Complaint "I'm not depressed ". History of Present Illness The patient is well known to us from multiple previous consultations, last seen in June 2017 when she was also admitted medically for alcohol withdrawal. She was also briefly on our behavioral health unit in 2016 for depression and suicidality in the context of severe alcohol abuse. She was started on antidepressants and referred for outpatient follow-up, but was not compliant with medications or treatment. At the time of her last consultation, recommendations were to treat her alcohol withdrawal and then go to inpatient rehab, which she refused. She has never been compliant with mental health treatment or medications, and continues to drink heavily. She presented to the emergency room overnight after her mother found her in her room covered in brown vomit. She is admitted to the ICU, and has been seen by GI. On admission , white blood cells were elevated, she was hyperkalemic, and alcohol level was 333.4. Unfortunately, a drug screen was not obtained, so it is not known if there are other substances contributing to her intoxication. Past Psychiatric History Current OP Treatment: no current treatment Prior OP Treatment: psychiatrist, therapist Prior Psych Hospitalizations: [facility] (One brief admission in 2016 for depression and suicidality in the context of alcohol abuse) Past Medication Trials Include but not limited to duloxetine, gabapentin, trazodone, naltrexone Allergies Allergies: Coded Allergies: No Known Allergies (Unverified , 06/14/17) Home Medications Scheduled Gabapentin (Gabapentin), 300 MG PO TID Scheduled PRN Bismuth Subsalicylate (Pepto-Bismol), 15 ML PO TID PRN for GI Upset Hydroxyzine Pamoate (Vistaril), 1 CAP PO TID PRN for Anxiety Family History FH: cancer FH: heart disease Hypertension History of Suicide: No History of Substance Abuse: Yes (Mother with history of alcoholism) Psychiatric History: No Alcohol Use Alcohol Use In Past 12 Months: Yes Long history of heavy drinking, with multiple admissions for alcohol intoxication/withdrawal, withdrawal seizures and DTs. Has had several inpatient rehabs, unclear if she completed any of them. Smoking Use Smoking Status: Current Every Day Smoker Substance History Unknown, no drug screen available. In the past, has used cannabis and NyQuil. Personal History Lives in: [place] with mother Childhood: Oldest of 5 children. Siblings live in [place], [place], and [place]. 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 Examination Vital Signs Vital Signs Past 12 Hours Date Time Temp Pulse Resp B/P (MAP) Pulse Ox O2 Delivery O2 Flow Rate FiO2 11/27/17 10:10 122 18 124/64 (84) 95 Room Air 2.0 11/27/17 10:10 122 14 124/68 95 11/27/17 09:04 129 18 112/62 11/27/17 08:00 Room Air 11/27/17 08:00 95 Room Air 11/27/17 08:00 37.0 127 20 111/81 95 11/27/17 08:00 37.0 127 20 111/81 (91) 95 Room Air 11/27/17 07:00 118 20 95 11/27/17 05:00 120 22 102/66 (78) 97 Room Air 11/27/17 04:00 120 22 109/56 (73) 99 Room Air 11/27/17 04:00 99 Room Air 11/27/17 03:00 120 20 102/62 (75) 100 Room Air 2.0 11/27/17 02:50 37.1 115 18 102/62 100 Nasal Cannula 2.0 11/27/17 02:22 117 15 100 Nasal Cannula 4.0 11/27/17 02:16 114/66 11/27/17 02:15 Nasal Cannula 4.0 11/27/17 02:07 122 14 100 11/27/17 02:02 128/44 11/27/17 01:56 125 25 97 Non-Rebreather 12.0 11/27/17 01:45 106/58 11/27/17 01:41 116 19 99 11/27/17 01:31 91/60 11/27/17 01:26 117 19 100 11/27/17 01:17 100/61 11/27/17 01:11 119 12 98 11/27/17 01:06 90/64 11/27/17 01:03 118 21 97 Non-Rebreather 12.0 11/27/17 00:59 36.7 117 28 94/64 95 Nasal Cannula 2.0 11/27/17 00:53 106 15 97 Nasal Cannula 5.0 11/27/17 00:50 Non-Rebreather 12.0 11/27/17 00:43 111 19 83 11/27/17 00:35 Nasal Cannula 5.0 11/27/17 00:33 112 14 83 Room Air 11/27/17 00:23 117 23 98 Room Air 11/27/17 00:15 Nasal Cannula 2.0 11/27/17 00:15 117 11/27/17 00:10 94/64 Laboratory Results Last 24 Hours Test 11/27/17 00:23 11/27/17 00:26 11/27/17 01:36 11/27/17 03:30 White Blood Count 16.89 K/uL Red Blood Count 5.06 M/uL Hemoglobin 14.8 g/dL Hematocrit 43.3 % Mean Corpuscular Volume 85.6 fL Mean Corpuscular Hemoglobin 29.2 pg Mean Corpuscular Hemoglobin Concent 34.2 g/dl Platelet Count 236 K/uL Mean Platelet Volume 9.5 fL Neutrophils (%) (Auto) 83.4 % Lymphocytes (%) (Auto) 10.3 % Monocytes (%) (Auto) 5.3 % Eosinophils (%) (Auto) 0.1 % Basophils (%) (Auto) 0.2 % Neutrophils # (Auto) 14.09 K/uL Lymphocytes # (Auto) 1.74 K/uL Monocytes # (Auto) 0.90 K/uL Eosinophils # (Auto) 0.01 K/uL Basophils # (Auto) 0.03 K/uL RDW Standard Deviation 51.1 fL RDW Coefficient of Variation 16.3 % Immature Granulocyte % (Auto) 0.7 % Immature Granulocyte # (Auto) 0.12 K/uL Prothrombin Time 10.3 SECONDS Prothromb Time International Ratio 1.0 Activated Partial Thromboplast Time 23.4 SECONDS Partial Thromboplastin Ratio 0.9 Sodium Level 139 mmol/L Potassium Level 4.4 mmol/L Chloride Level 93 mmol/L Carbon Dioxide Level 11 mmol/L Anion Gap 35.0 mmol/L 29.0 mmol/L Blood Urea Nitrogen 35 mg/dl Creatinine 2.87 mg/dl Estimated GFR () 21.1 Estimated GFR (Non- 18.2 BUN/Creatinine Ratio 12.3 Random Glucose 136 mg/dl Calcium Level 8.1 mg/dl Magnesium Level 2.8 mg/dl Total Bilirubin 1.0 mg/dl Direct Bilirubin 0.6 mg/dl Aspartate Amino Transf (AST/SGOT) 211 U/L Alanine Aminotransferase (ALT/SGPT) 91 U/L Alkaline Phosphatase 204 U/L Total Creatine Kinase 1230 U/L Creatine Kinase MB 28.8 ng/ml Creatine Kinase MB Ratio 2.3 Troponin I < 0.015 ng/ml Total Protein 7.8 gm/dl Albumin 3.6 gm/dl Lipase 280 U/L Ethyl Alcohol mg/dL 333.4 mg/dl Bedside Hemoglobin 16.7 g/dl Bedside Hematocrit 49 % Bedside Sodium 136 mEq/L Bedside Potassium 6.5 mEq/L Bedside Chloride 100 mEq/L Bedside Total CO2 16 mEq/l Bedside Blood Urea Nitrogen 53 mg/dl Bedside Creatinine 2.8 mg/dl Bedside Glucose (other) 126 mg/dl Bedside Ionized Calcium (Bri) 0.86 mmol/l Lactic Acid Level 6.0 mmol/L Hepatitis B Surface Antigen NEG Hepatitis C Antibody NEG Test 11/27/17 03:40 11/27/17 04:17 11/27/17 06:17 11/27/17 08:44 White Blood Count 16.22 K/uL Red Blood Count 4.25 M/uL Hemoglobin 12.2 g/dL 10.7 g/dL Hematocrit 36.6 % 31.3 % Mean Corpuscular Volume 86.1 fL Mean Corpuscular Hemoglobin 28.7 pg Mean Corpuscular Hemoglobin Concent 33.3 g/dl Platelet Count 151 K/uL Mean Platelet Volume 9.6 fL Neutrophils (%) (Auto) 81.4 % Lymphocytes (%) (Auto) 11.5 % Monocytes (%) (Auto) 6.4 % Eosinophils (%) (Auto) 0.0 % Basophils (%) (Auto) 0.1 % Neutrophils # (Auto) 13.20 K/uL Lymphocytes # (Auto) 1.87 K/uL Monocytes # (Auto) 1.04 K/uL Eosinophils # (Auto) 0.00 K/uL Basophils # (Auto) 0.02 K/uL RDW Standard Deviation 50.1 fL RDW Coefficient of Variation 15.8 % Immature Granulocyte % (Auto) 0.6 % Immature Granulocyte # (Auto) 0.09 K/uL Sodium Level 139 mmol/L 139 mmol/L Potassium Level 3.9 mmol/L 4.2 mmol/L Chloride Level 101 mmol/L 106 mmol/L Carbon Dioxide Level 14 mmol/L 12 mmol/L Anion Gap 24.0 mmol/L 21.0 mmol/L Blood Urea Nitrogen 33 mg/dl 27 mg/dl Creatinine 2.12 mg/dl 1.60 mg/dl Est Creatinine Clear Calc Drug Dose 29.4 ml/min 38.9 ml/min Estimated GFR () 30.5 42.8 Estimated GFR (Non- 26.3 36.9 BUN/Creatinine Ratio 15.4 16.6 Random Glucose 204 mg/dl 192 mg/dl Osmolality 367 mOsm/kg Calcium Level 6.7 mg/dl 6.6 mg/dl Phosphorus Level 5.9 mg/dl Magnesium Level 2.1 mg/dl Lipase 285 U/L Vitamin B12 Level 639 pg/mL Folate > 24.00 ng/mL Thyroid Stimulating Hormone (TSH) 0.438 uIu/ml Chemistry Specimen Hemolysis Salicylates Level 2.2 mg/dl Acetaminophen Level < 2 ug/ml Blood Gas Sample Site L Radial Bedside Blood Gas pH (LAB) 7.26 Bedside Blood Gas pCO2 (LAB) 26 mmHg Bedside Blood Gas pO2 (LAB) 110 mmHg Bedside Blood Gas HCO3 (LAB) 12 meq/L Bedside Blood Gas Total CO2 12 mEq/l Bedside Blood Gas Base Excess (LAB) -16.0 meq/L Bedside Blood Gas O2 Saturation 98.0 % Archie Test Pass Oxygen Delivery Device Cannula Bedside Glucose 207 mg/dl Lactic Acid Level 2.8 mmol/L Test 11/27/17 10:41 Hemoglobin 10.9 g/dL Hematocrit 31.9 % Sodium Level 137 mmol/L Potassium Level 3.9 mmol/L Chloride Level 103 mmol/L Carbon Dioxide Level 14 mmol/L Anion Gap 20.0 mmol/L Blood Urea Nitrogen 25 mg/dl Creatinine 1.52 mg/dl Est Creatinine Clear Calc Drug Dose 41.0 ml/min Estimated GFR () 45.5 Estimated GFR (Non- 39.3 BUN/Creatinine Ratio 16.5 Random Glucose 189 mg/dl Calcium Level 6.8 mg/dl Creatine Kinase MB Ratio Mental Examination During interview pt is: cooperative, other (Alert, oriented Hospital himself) Appearance: other (Naked, covered in feces) Eye contact is: good Motor behavior is: no abnormal motor movements Speech: normal in rate, rhythm & volume Affect: euthymic Mood is: other ("I am fine, I just drank") Thought process: goal directed Thought content: reality based without delusions Suicidal thought are: denied Homicidal thoughts are: denied Hallucinations: denies auditory, denies visual Cognition: language grossly intact Intelligence estimated to be: average Insight: impaired Judgement: impaired Impression / Recommendations Impression 51-year-old white female with a long history of severe alcohol dependence as well as depression and noncompliance with treatment who is admitted for intoxication and vomiting. She is denying symptoms of depression and does not want psychiatric intervention. Her primary problem continues to be her severe alcoholism and refusal to get treatment or stop drinking. Unfortunately, she cannot be forced into treatment for this, and she is not interested in seeking help for her substance abuse at this time. She denies depression, doesn't want to follow up with outpatient mental health care, and has never been compliant with treatment. She gives no indication that she is willing to change her behavior. Recommendations (1) Major depressive disorder, recurrent episode with anxious distress Patient denies current depressive symptoms, and does not want psychiatric intervention at this time. I will ask the liaison nurse to contact her mother, whom she lives with, for collateral information about her mood and substance abuse. I encouraged the patient to notify staff if she changes her mind and would like to pursue psychiatric treatment. She does not meet any criteria for inpatient behavioral health admission. (2) Acute alcohol intoxication Severe alcohol use disorder, with a history of withdrawal, DTs, and seizures. Medical treatment of withdrawal per the primary team. Would recommend getting a drug screen, to ensure that there are not other substances in her system that may be affected by treatment for withdrawal or place her at risk for other medical complications. Primary recommendation is for inpatient rehab, which she is refusing. She is a high risk of from her alcoholism if she continues to drink in this manner, and may benefit from ongoing education by all of her physicians about the negative effects of her drinking on her body and the likely outcomes. Unfortunately in [place], it is not possible to involuntarily commit people to rehab or any other form of substance abuse treatment.
[2017-11-27 16:09] LABS: HEMATOCRIT 31.2 % (37-47); HEMOGLOBIN 10.6 g/dL (12.0-16.0)
[2017-11-27 16:29] LABS: CREATININE 1.56 mg/dl (0.60-1.20); POTASSIUM 3.6 mmol/L (3.5-5.1)
[2017-11-27 19:53] LABS: CKMB 83.2 ng/ml (0.5-3.6)
--- NOTE | 2017-11-27 20:22 | Progress Note ---
Progress Note Date of Service Nov 27, 2017. Progress Note seen in f/u from early am admit doing much better eating feeling hollie notes only relapsed with drinking for a short time EtOH abuse - supportive care follow for any significant withdrawal since she wants to quit again otherwise as per Dr Mckenna/Dr Romero
[2017-11-27] MEDS: GABAPENTIN 300 MG CAP PO SCH (20:53)
[2017-11-27] MEDS: CHLORDIAZEPOXIDE 25 MG CAP PO SCH (20:53)
--- NOTE | 2017-11-27 22:14 | Family Medicine Progress Note ---
Progress Note Date of Service Nov 27, 2017. Subjective Pt evaluation today including: conversation w/ patient, physical exam, chart review, lab review, review of studies Pain: No pain reported this morning Voiding: no voiding problems, no incontinence Patient evaluated in the afternoon and states that she had only resumed drinking for a few weeks. She denies any agitation, anxiety, or tremor at this time and would like to stop drinking. She says she does not want to throw her life away and dwell over her ex-. Constitutional: No fever, No chills, No fatigue Respiratory: No cough, No wheezing, No shortness of breath Cardiovascular: No chest pain, No palpitations Abdomen: No pain, No nausea, No vomiting, No diarrhea, No constipation Neurologic: + numbness/tingling Medications Current Inpatient Medications Medications (Trade) Dose Ordered Sig/Gisselle Route Start Time Stop Time Status Last Admin Dose Admin Acetaminophen (Tylenol Tab) 650 mg Q4H PRN PO 11/27/17 02:45 12/27/17 02:44 Albuterol/ Ipratropium (Duoneb) 3 ml Q6R PRN INH 11/27/17 02:45 12/27/17 02:44 Miscellaneous Information ([facility] Protocol For Hyperglycemia) 1 ea PRN PRN N/A 11/27/17 02:45 11/29/17 02:44 Glucose (Glucose 40% Gel) 15-30 GRAMS 15 GRAMS... UD PRN PO 11/27/17 02:45 12/27/17 02:44 Glucose (Glucose Chew Tab) 4-8 Tablets 4 Tabl... UD PRN PO 11/27/17 02:45 12/27/17 02:44 Dextrose (Dextrose 50% 50ML Syringe) 25-50ML OF 50% DW IV FOR... UD PRN IV 11/27/17 02:45 12/27/17 02:44 Glucagon (Glucagon Inj) 1 mg UD PRN SQ 11/27/17 02:45 12/27/17 02:44 Lorazepam (Ativan Inj) 1 mg ONE PRN IV 11/27/17 02:45 Parenteral Electrolyte Solution 1,000 ml @ 200 mls/hr Q5H IV 11/27/17 05:00 12/27/17 04:59 11/27/17 20:55 200 MLS/HR Ondansetron HCl (Zofran Inj) 4 mg Q6H PRN IV 11/27/17 06:30 12/27/17 06:29 Phenobarbital Sodium 65 mg/ Syringe 5 ml @ 1.667 mls/ min Q6H IV 11/27/17 10:00 12/27/17 09:59 11/27/17 20:54 1.667 MLS/MIN Prochlorperazine Edisylate 10 mg/ Syringe 10 ml @ 5 mls/min Q4H PRN IV 11/27/17 08:30 12/27/17 08:29 11/27/17 09:23 5 MLS/MIN Thiamine HCl 500 mg/Folic Acid 1 mg/Sodium Chloride 55.2 ml @ 110 mls/hr Q24H IV 11/27/17 11:00 12/27/17 10:59 11/27/17 12:42 110 MLS/HR Pantoprazole Sodium 40 mg/ Syringe 10 ml @ 5 mls/min DAILY@ IV 11/27/17 10:00 12/27/17 09:59 11/27/17 20:54 5 MLS/MIN Chlordiazepoxide (Librium Cap) 50 mg BID PO 11/27/17 21:00 12/27/17 20:59 11/27/17 20:53 50 MG Gabapentin (Neurontin Cap) 300 mg TID PO 11/27/17 21:00 12/27/17 20:59 11/27/17 20:53 300 MG Objective Vital Signs Date Time Temp Pulse Resp B/P (MAP) Pulse Ox O2 Delivery O2 Flow Rate FiO2 11/27/17 20:00 98 Room Air 11/27/17 20:00 37.0 103 20 149/78 (101) 98 Room Air 11/27/17 17:00 102 20 140/76 (97) 98 Room Air 11/27/17 16:00 97 Room Air 11/27/17 16:00 37.1 111 18 147/73 (97) 97 Room Air 11/27/17 15:01 107 16 131/77 (99) 97 11/27/17 15:00 112 21 97 11/27/17 14:00 105 18 97 11/27/17 14:00 36.9 113 31 132/75 (94) 97 Room Air 11/27/17 13:00 109 2/22/18 12:00 36.6 100 25 137/74 95 11/27/17 12:00 99 Room Air 11/27/17 12:00 36.6 100 20 137/74 (95) 100 Room Air 11/27/17 11:00 107 11/27/17 10:10 122 18 124/64 (84) 95 Room Air 2.0 11/27/17 10:10 122 14 124/68 95 11/27/17 09:04 129 18 112/62 11/27/17 08:00 Room Air 11/27/17 08:00 95 Room Air 11/27/17 08:00 37.0 127 20 111/81 95 11/27/17 08:00 37.0 127 20 111/81 (91) 95 Room Air 11/27/17 07:00 118 20 95 11/27/17 05:00 120 22 102/66 (78) 97 Room Air 11/27/17 04:00 120 22 109/56 (73) 99 Room Air 11/27/17 04:00 99 Room Air 11/27/17 03:00 120 20 102/62 (75) 100 Room Air 2.0 11/27/17 02:50 37.1 115 18 102/62 100 Nasal Cannula 2.0 11/27/17 02:22 117 15 100 Nasal Cannula 4.0 11/27/17 02:16 114/66 11/27/17 02:15 Nasal Cannula 4.0 11/27/17 02:07 122 14 100 11/27/17 02:02 128/44 11/27/17 01:56 125 25 97 Non-Rebreather 12.0 11/27/17 01:45 106/58 11/27/17 01:41 116 19 99 11/27/17 01:31 91/60 11/27/17 01:26 117 19 100 11/27/17 01:17 100/61 11/27/17 01:11 119 12 98 11/27/17 01:06 90/64 11/27/17 01:03 118 21 97 Non-Rebreather 12.0 11/27/17 00:59 36.7 117 28 94/64 95 Nasal Cannula 2.0 11/27/17 00:53 106 15 97 Nasal Cannula 5.0 11/27/17 00:50 Non-Rebreather 12.0 11/27/17 00:43 111 19 83 11/27/17 00:35 Nasal Cannula 5.0 11/27/17 00:33 112 14 83 Room Air 11/27/17 00:23 117 23 98 Room Air 11/27/17 00:15 Nasal Cannula 2.0 11/27/17 00:15 117 11/27/17 00:10 94/64 Physical Exam General Appearance: no apparent distress, + pertinent finding (disheveled) Eyes: normal inspection, sclerae normal Respiratory/Chest: chest non-tender, lungs clear, normal breath sounds, no respiratory distress, no accessory muscle use Cardiovascular: regular rate, rhythm, no edema, no murmur Abdomen: normal bowel sounds, non tender, soft Extremities: no calf tenderness Neurologic/Psychiatric: alert, normal mood/affect, oriented x 3 Laboratory Results Results Past 24 Hours Test 11/27/17 00:23 11/27/17 00:26 11/27/17 01:36 11/27/17 03:30 Range/Units White Blood Count 16.89 4.8-10.8 K/uL Red Blood Count 5.06 4.2-5.4 M/uL Hemoglobin 14.8 12.0-16.0 g/dL Hematocrit 43.3 37-47 % Mean Corpuscular Volume 85.6 80-100 fL Mean Corpuscular Hemoglobin 29.2 25-34 pg Mean Corpuscular Hemoglobin Concent 34.2 32-36 g/dl Platelet Count 236 130-400 K/uL Mean Platelet Volume 9.5 7.4-10.4 fL Neutrophils (%) (Auto) 83.4 % Lymphocytes (%) (Auto) 10.3 % Monocytes (%) (Auto) 5.3 % Eosinophils (%) (Auto) 0.1 % Basophils (%) (Auto) 0.2 % Neutrophils # (Auto) 14.09 1.4-6.5 K/uL Lymphocytes # (Auto) 1.74 1.2-3.4 K/uL Monocytes # (Auto) 0.90 0.11-0.59 K/uL Eosinophils # (Auto) 0.01 0-0.5 K/uL Basophils # (Auto) 0.03 0-0.2 K/uL RDW Standard Deviation 51.1 36.4-46.3 fL RDW Coefficient of Variation 16.3 11.5-14.5 % Immature Granulocyte % (Auto) 0.7 % Immature Granulocyte # (Auto) 0.12 0.00-0.02 K/uL Prothrombin Time 10.3 9.0-12.0 SECONDS Prothromb Time International Ratio 1.0 0.9-1.1 Activated Partial Thromboplast Time 23.4 21.0-31.0 SECONDS Partial Thromboplastin Ratio 0.9 Sodium Level 139 136-145 mmol/L Potassium Level 4.4 3.5-5.1 mmol/L Chloride Level 93 98-107 mmol/L Carbon Dioxide Level 11 21-32 mmol/L Anion Gap 35.0 29.0 16-25 mmol/L Blood Urea Nitrogen 35 7-18 mg/dl Creatinine 2.87 0.60-1.20 mg/dl Estimated GFR () 21.1 Estimated GFR (Non- 18.2 BUN/Creatinine Ratio 12.3 10-20 Random Glucose 136 70-99 mg/dl Calcium Level 8.1 8.5-10.1 mg/dl Magnesium Level 2.8 1.8-2.4 mg/dl Total Bilirubin 1.0 0.2-1 mg/dl Direct Bilirubin 0.6 0-0.2 mg/dl Aspartate Amino Transf (AST/SGOT) 211 15-37 U/L Alanine Aminotransferase (ALT/SGPT) 91 12-78 U/L Alkaline Phosphatase 204 45-117 U/L Total Creatine Kinase 1230 26-192 U/L Creatine Kinase MB 28.8 0.5-3.6 ng/ml Creatine Kinase MB Ratio 2.3 0-3.0 Troponin I < 0.015 0-0.045 ng/ml Total Protein 7.8 6.4-8.2 gm/dl Albumin 3.6 3.4-5.0 gm/dl Lipase 280 73-393 U/L Ethyl Alcohol mg/dL 333.4 0-3 mg/dl Bedside Hemoglobin 16.7 12.0-16.0 g/dl Bedside Hematocrit 49 37-47 % Bedside Sodium 136 135-144 mEq/L Bedside Potassium 6.5 3.3-5.0 mEq/L Bedside Chloride 100 101-112 mEq/L Bedside Total CO2 16 24-31 mEq/l Bedside Blood Urea Nitrogen 53 7-18 mg/dl Bedside Creatinine 2.8 0.6-1.3 mg/dl Bedside Glucose (other) 126 70-99 mg/dl Bedside Ionized Calcium (Bri) 0.86 1.12-1.32 mmol/l Lactic Acid Level 6.0 0.4-2.0 mmol/L Hepatitis B Surface Antigen NEG NEG Hepatitis C Antibody NEG NEG Test 11/27/17 03:40 11/27/17 04:17 11/27/17 06:17 11/27/17 08:44 Range/Units White Blood Count 16.22 4.8-10.8 K/uL Red Blood Count 4.25 4.2-5.4 M/uL Hemoglobin 12.2 10.7 12.0-16.0 g/dL Hematocrit 36.6 31.3 37-47 % Mean Corpuscular Volume 86.1 80-100 fL Mean Corpuscular Hemoglobin 28.7 25-34 pg Mean Corpuscular Hemoglobin Concent 33.3 32-36 g/dl Platelet Count 151 130-400 K/uL Mean Platelet Volume 9.6 7.4-10.4 fL Neutrophils (%) (Auto) 81.4 % Lymphocytes (%) (Auto) 11.5 % Monocytes (%) (Auto) 6.4 % Eosinophils (%) (Auto) 0.0 % Basophils (%) (Auto) 0.1 % Neutrophils # (Auto) 13.20 1.4-6.5 K/uL Lymphocytes # (Auto) 1.87 1.2-3.4 K/uL Monocytes # (Auto) 1.04 0.11-0.59 K/uL Eosinophils # (Auto) 0.00 0-0.5 K/uL Basophils # (Auto) 0.02 0-0.2 K/uL RDW Standard Deviation 50.1 36.4-46.3 fL RDW Coefficient of Variation 15.8 11.5-14.5 % Immature Granulocyte % (Auto) 0.6 % Immature Granulocyte # (Auto) 0.09 0.00-0.02 K/uL Sodium Level 139 139 136-145 mmol/L Potassium Level 3.9 4.2 3.5-5.1 mmol/L Chloride Level 101 106 98-107 mmol/L Carbon Dioxide Level 14 12 21-32 mmol/L Anion Gap 24.0 21.0 3-11 mmol/L Blood Urea Nitrogen 33 27 7-18 mg/dl Creatinine 2.12 1.60 0.60-1.20 mg/dl Est Creatinine Clear Calc Drug Dose 29.4 38.9 ml/min Estimated GFR () 30.5 42.8 Estimated GFR (Non- 26.3 36.9 BUN/Creatinine Ratio 15.4 16.6 10-20 Random Glucose 204 192 70-99 mg/dl Osmolality 367 280-300 mOsm/kg Calcium Level 6.7 6.6 8.5-10.1 mg/dl Phosphorus Level 5.9 2.5-4.9 mg/dl Magnesium Level 2.1 1.8-2.4 mg/dl Lipase 285 73-393 U/L Vitamin B12 Level 639 211-911 pg/mL Folate > 24.00 >5.38 ng/mL Thyroid Stimulating Hormone (TSH) 0.438 0.300-4.500 uIu/ml Chemistry Specimen Hemolysis Salicylates Level 2.2 2.8-20 mg/dl Acetaminophen Level < 2 10-30 ug/ml Blood Gas Sample Site L Radial Bedside Blood Gas pH (LAB) 7.26 7.35-7.45 Bedside Blood Gas pCO2 (LAB) 26 35-46 mmHg Bedside Blood Gas pO2 (LAB) 110 80-95 mmHg Bedside Blood Gas HCO3 (LAB) 12 19-24 meq/L Bedside Blood Gas Total CO2 12 24-31 mEq/l Bedside Blood Gas Base Excess (LAB) -16.0 -9-1.8 meq/L Bedside Blood Gas O2 Saturation 98.0 90-95 % Archie Test Pass Oxygen Delivery Device Cannula Bedside Glucose 207 70-90 mg/dl Lactic Acid Level 2.8 0.4-2.0 mmol/L Test 11/27/17 10:09 11/27/17 10:41 11/27/17 15:44 11/27/17 18:35 Range/Units Bedside Glucose 210 70-90 mg/dl Hemoglobin 10.9 10.6 12.0-16.0 g/dL Hematocrit 31.9 31.2 37-47 % Sodium Level 137 135 136-145 mmol/L Potassium Level 3.9 3.6 3.5-5.1 mmol/L Chloride Level 103 101 98-107 mmol/L Carbon Dioxide Level 14 17 21-32 mmol/L Anion Gap 20.0 17.0 3-11 mmol/L Blood Urea Nitrogen 25 20 7-18 mg/dl Creatinine 1.52 1.56 0.60-1.20 mg/dl Est Creatinine Clear Calc Drug Dose 41.0 39.9 ml/min Estimated GFR () 45.5 44.1 Estimated GFR (Non- 39.3 38.1 BUN/Creatinine Ratio 16.5 12.9 10-20 Random Glucose 189 342 70-99 mg/dl Calcium Level 6.8 7.0 8.5-10.1 mg/dl Total Creatine Kinase 3105 4156 26-192 U/L Creatine Kinase MB 76.5 83.2 0.5-3.6 ng/ml Creatine Kinase MB Ratio 2.5 2.0 0-3.0 Troponin I 0.036 0.064 0-0.045 ng/ml Beta-Hydroxybutyric Acid 45.55 0.2-2.81 mg/dL Test 11/27/17 19:40 11/27/17 19:44 Range/Units Urine Opiates Screen NEG NEG Urine Methadone, Qualitative NEG NEG Urine Barbiturates POS NEG Urine Phencyclidine (PCP) Level NEG NEG Ur Amphetamine/Methamphetamine NEG NEG MDMA (Ecstasy) Screen NEG NEG Urine Benzodiazepines Screen NEG NEG Urine Cocaine Metabolite NEG NEG Urine Marijuana (THC) NEG NEG Microbiology Results 11/27/17 Blood Culture, Received Pending 11/27/17 Blood Culture, Received Pending 11/27/17 MRSA DNA Surveillance Screen - Final, Complete Specimen Negative for MRSA by DNA Probe Assessment and Plan GI Bleed/ Hematemesis - EMS initially reported dark brown vomitus and when vomit was tested on Hemoccult test strip it was positive - Hemoglobin has remained stable since admission and no signs of GI bleeding at this time - Protonix drip - Octreotide discontinued - Zofran as needed for nausea - Hemoccult pending - Daily CBC Aspiration Pneumonitis - CXR: No acute findings - 1 dose of Zosyn in ICU - Satting well on room air with no respiratory distress Chronic Alcoholism/ Alcohol withdrawal - Ethyl Alcohol 333.4 - Librium 50mg PO BID - Phenobarbital - Daily Banana Bag - Thiamine 500mg - Folic Acid 1mg - Liver US: Heterogeneous liver suggesting mild fatty infiltration behind with potential early cirrhotic change - AST/ALT 211/91, Alk phos 204 - B12 wnl - History of withdrawal seizures - [facility] protocol - Librium 50mg TID Hypokalemia/ Hypochloremia --> Resolved - K initially 6.5 --> Currently 3.6 - Given Insulin and Dextrose in the ED to correct - Chloride initially 91 --> Currently 103 - Parenteral Electrolyte Solution @ 200mls/hr Lactic Acidosis - 2/2 Alcohol Intake - Lactic Acid 6.0 on presentation --> Improved to 2.8 - Bicarbonate of 11 on presentation --> Improved to 17 - Beta Hydroxybutyric Acid - 45.44 (elevated) - Parenteral Electrolyte Solution @ 200mls/hr LIAM - Creatinine on presentation 2.87 --> Improved to 1.56 with hydration - Parenteral Electrolyte Solution @ 200mls/hr Major Depressive Disorder - Previous suicide attempts with inpatient psychiatric admission at [facility] - Non compliant with medications after discharge - Previously on Cymbalta and Trazodone in the past - Psych liaison contacted and will get involved with treatment after withdrawal is compete DVT - SCDs Code Status - Full Resuscitation Resident Tracking Resident Involvement: Resident Care Provided Care Provided: Adult Hospital Medicine
[2017-11-28] VITALS (9 sets, daily range): BP systolic 123–138; BP diastolic 75–94; PULSE 72–97; TEMP 36.9–37; O2SAT 96–100
[2017-11-28] MEDS: NORMOSOL R 1,000 ML IV SCH ×2 (01:25→06:48)
[2017-11-28] MEDS ORDERED: THIAMINE HCL INJ 100 MG in SYRINGE 9 ML IV SCH (02:00)
[2017-11-28] MEDS: PHENOBARBITAL SOD IV SCH (04:09)
[2017-11-28 05:08] LABS: HEPATITIS A IGM TC 51813E NON-REACTIVE (NON-REACTIVE); HEPATITIS B CORE IGM TC51854R NON-REACTIVE (NON-REACTIVE)
[2017-11-28 06:22] LABS: INR 0.9 (0.9-1.1); PTT PATIENT 23.8 SECONDS (21.0-31.0)
[2017-11-28] MEDS ORDERED: PHARMACY GLYCEMIC MGMT CONSULT STA (06:35)
[2017-11-28 06:36] LABS: HEMATOCRIT 30.6 % (37-47); HEMOGLOBIN 10.6 g/dL (12.0-16.0); MEAN CELL VOLUME 83.2 fL (80-100); MEAN CORPUSCULAR HEMOGLOBIN 28.8 pg (25-34); MEAN CORPUSCULAR HGB CONC 34.6 g/dl (32-36); MEAN PLATELET VOLUME 9.3 fL (7.4-10.4); PLATELET COUNT 81 K/uL (130-400); RED CELL DISTRIBUTION WIDTH CV 15.7 % (11.5-14.5); RED CELL DISTRIBUTION WIDTH SD 47.9 fL (36.4-46.3); WHITE BLOOD COUNT 5.05 K/uL (4.8-10.8)
[2017-11-28 06:37] LABS: BASO % 0.2 %; BASO ABS # 0.01 K/uL (0-0.2); EOS % 0.6 %; EOS ABS # 0.03 K/uL (0-0.5); IG# 0.01 K/uL (0.00-0.02); LYMPH % 22.6 %; LYMPH ABS # 1.14 K/uL (1.2-3.4); MONO % 4.6 %; MONO ABS # 0.23 K/uL (0.11-0.59); NEUT % 71.8 %; NEUT ABS # 3.63 K/uL (1.4-6.5)
[2017-11-28] MEDS ORDERED: DEXTROSE 50% 50 ML SYR IV PRN (06:45)
[2017-11-28] MEDS ORDERED: GLUCOSE 40% GEL 15 GM TUBE PO PRN (06:45)
[2017-11-28] MEDS ORDERED: GLUCAGON FOR INJ 1 MG VIAL SQ PRN (06:45)
[2017-11-28] MEDS ORDERED: GLUCOSE 10 TABS/TUBE PO PRN (06:45)
[2017-11-28 06:55] LABS: ALBUMIN 2.8 gm/dl (3.4-5.0); CALCIUM 7.9 mg/dl (8.5-10.1); CREATININE 1.36 mg/dl (0.60-1.20); PHOSPHORUS 0.7 mg/dl (2.5-4.9); POTASSIUM 2.7 mmol/L (3.5-5.1); TOTAL PROTEIN 6.1 gm/dl (6.4-8.2)
[2017-11-28] MEDS ORDERED: POTASSIUM CHLORIDE 10 MEQ TABCR PO STA (07:27)
[2017-11-28] MEDS: GABAPENTIN 300 MG CAP PO SCH ×3 (07:28→21:56)
[2017-11-28] MEDS: CHLORDIAZEPOXIDE 25 MG CAP PO SCH (07:29)
[2017-11-28] MEDS: PANTOprazole INJ 40 MG in SYRINGE 0 ML IV SCH ×2 (07:29→22:18)
--- NOTE | 2017-11-28 07:29 | Family Medicine Progress Note ---
Progress Note Date of Service Nov 28, 2017. Subjective Pt evaluation today including: conversation w/ patient, physical exam Voiding: no voiding problems, no incontinence No issues Wants to eat more solid foods Has not been sleeping well due to hunger Denies agitation, tremors, seizures No nursing concerns overnight Additional Comments: A 10 point review of systems was negative unless stated above. Medications Current Inpatient Medications Medications (Trade) Dose Ordered Sig/Gisselle Route Start Time Stop Time Status Last Admin Dose Admin Acetaminophen (Tylenol Tab) 650 mg Q4H PRN PO 11/27/17 02:45 12/27/17 02:44 Albuterol/ Ipratropium (Duoneb) 3 ml Q6R PRN INH 11/27/17 02:45 12/27/17 02:44 Miscellaneous Information ([facility] Protocol For Hyperglycemia) 1 ea PRN PRN N/A 11/27/17 02:45 11/29/17 02:44 Glucose (Glucose 40% Gel) 15-30 GRAMS 15 GRAMS... UD PRN PO 11/27/17 02:45 12/27/17 02:44 Glucose (Glucose Chew Tab) 4-8 Tablets 4 Tabl... UD PRN PO 11/27/17 02:45 12/27/17 02:44 Dextrose (Dextrose 50% 50ML Syringe) 25-50ML OF 50% DW IV FOR... UD PRN IV 11/27/17 02:45 12/27/17 02:44 Glucagon (Glucagon Inj) 1 mg UD PRN SQ 11/27/17 02:45 12/27/17 02:44 Lorazepam (Ativan Inj) 1 mg ONE PRN IV 11/27/17 02:45 Ondansetron HCl (Zofran Inj) 4 mg Q6H PRN IV 11/27/17 06:30 12/27/17 06:29 Prochlorperazine Edisylate 10 mg/ Syringe 10 ml @ 5 mls/min Q4H PRN IV 11/27/17 08:30 12/27/17 08:29 11/27/17 09:23 5 MLS/MIN Thiamine HCl 500 mg/Folic Acid 1 mg/Sodium Chloride 55.2 ml @ 110 mls/hr Q24H IV 11/27/17 11:00 12/27/17 10:59 11/27/17 12:42 110 MLS/HR Pantoprazole Sodium 40 mg/ Syringe 10 ml @ 5 mls/min DAILY@09,21 IV 11/27/17 10:00 12/27/17 09:59 11/28/17 07:29 5 MLS/MIN Gabapentin (Neurontin Cap) 300 mg TID PO 11/27/17 21:00 12/27/17 20:59 11/28/17 07:28 300 MG Insulin Aspart (novoLOG ASPART) SLIDING SCALE If C... ACHS SC 11/28/17 11:00 12/28/17 10:59 Phenobarbital (Phenobarbital Tab) 32.4 mg TID PO 11/28/17 09:00 12/28/17 08:59 11/28/17 08:50 32.4 MG Potassium Phosphate 30 mmol/ Sodium Chloride 510 ml @ 88 mls/hr Q8H IV 11/28/17 08:30 11/29/17 06:18 11/28/17 08:38 88 MLS/HR Sodium Chloride 1,000 ml @ 200 mls/hr Q5H IV 11/28/17 09:00 12/28/17 08:59 11/28/17 09:00 200 MLS/HR Objective Vital Signs Date Time Temp Pulse Resp B/P (MAP) Pulse Ox O2 Delivery O2 Flow Rate FiO2 11/28/17 10:00 83 18 129/90 (103) Room Air 11/28/17 08:00 Room Air 11/28/17 08:00 72 18 136/92 (107) 96 Room Air 11/28/17 06:23 79 20 131/76 (94) 98 Room Air 11/28/17 04:00 Room Air 11/28/17 04:00 36.9 80 20 136/84 (101) 100 Room Air 11/28/17 02:00 97 18 123/75 (91) 98 Room Air 11/28/17 00:01 37.0 93 20 124/84 (97) 98 Room Air 11/27/17 23:59 Room Air 11/27/17 22:00 37.0 95 22 137/73 (94) 97 Room Air 11/27/17 20:00 98 Room Air 11/27/17 20:00 37.0 103 20 149/78 (101) 98 Room Air 11/27/17 17:00 102 20 140/76 (97) 98 Room Air 11/27/17 16:00 97 Room Air 11/27/17 16:00 37.1 111 18 147/73 (97) 97 Room Air 11/27/17 15:01 107 16 131/77 (99) 97 11/27/17 15:00 112 21 97 11/27/17 14:00 105 18 97 11/27/17 14:00 36.9 113 31 132/75 (94) 97 Room Air 11/27/17 13:00 109 11/27/17 12:00 36.6 100 25 137/74 95 11/27/17 12:00 99 Room Air 11/27/17 12:00 36.6 100 20 137/74 (95) 100 Room Air Physical Exam General Appearance: WD/WN, no apparent distress, + pertinent finding (slightly nervous appearing) Eyes: normal inspection, EOMI ENT: hearing grossly normal, pharynx normal Neck: supple, no adenopathy, no JVD Respiratory/Chest: lungs clear, no respiratory distress Cardiovascular: regular rate, rhythm, no gallop, no murmur Abdomen: normal bowel sounds, non tender, soft Extremities: non-tender, no pedal edema Neurologic/Psychiatric: alert, normal mood/affect, oriented x 3 Skin: normal color, warm/dry, no rash Lymphatic: no adenopathy Laboratory Results Last 24 Hours Test 11/27/17 15:44 11/27/17 18:35 11/27/17 19:40 11/28/17 05:30 Hemoglobin 10.6 g/dL Hematocrit 31.2 % Sodium Level 135 mmol/L Potassium Level 3.6 mmol/L Chloride Level 101 mmol/L Carbon Dioxide Level 17 mmol/L Anion Gap 17.0 mmol/L Blood Urea Nitrogen 20 mg/dl Creatinine 1.56 mg/dl Est Creatinine Clear Calc Drug Dose 39.9 ml/min Estimated GFR () 44.1 Estimated GFR (Non- 38.1 BUN/Creatinine Ratio 12.9 Random Glucose 342 mg/dl Calcium Level 7.0 mg/dl Beta-Hydroxybutyric Acid 45.55 mg/dL Total Creatine Kinase 4156 U/L Creatine Kinase MB 83.2 ng/ml Creatine Kinase MB Ratio 2.0 Troponin I 0.064 ng/ml Urine Opiates Screen NEG Urine Methadone, Qualitative NEG Urine Barbiturates POS Urine Phencyclidine (PCP) Level NEG Ur Amphetamine/Methamphetamine NEG MDMA (Ecstasy) Screen NEG Urine Benzodiazepines Screen NEG Urine Cocaine Metabolite NEG Urine Marijuana (THC) NEG Stool Occult Blood NEGATIVE Test 11/28/17 05:47 11/28/17 06:18 11/28/17 08:01 White Blood Count 5.05 K/uL Red Blood Count 3.68 M/uL Hemoglobin 10.6 g/dL Hematocrit 30.6 % Mean Corpuscular Volume 83.2 fL Mean Corpuscular Hemoglobin 28.8 pg Mean Corpuscular Hemoglobin Concent 34.6 g/dl Platelet Count 81 K/uL Mean Platelet Volume 9.3 fL Neutrophils (%) (Auto) 71.8 % Lymphocytes (%) (Auto) 22.6 % Monocytes (%) (Auto) 4.6 % Eosinophils (%) (Auto) 0.6 % Basophils (%) (Auto) 0.2 % Neutrophils # (Auto) 3.63 K/uL Lymphocytes # (Auto) 1.14 K/uL Monocytes # (Auto) 0.23 K/uL Eosinophils # (Auto) 0.03 K/uL Basophils # (Auto) 0.01 K/uL RDW Standard Deviation 47.9 fL RDW Coefficient of Variation 15.7 % Immature Granulocyte % (Auto) 0.2 % Immature Granulocyte # (Auto) 0.01 K/uL Platelet Estimate DECREASED Prothrombin Time 9.9 SECONDS Prothromb Time International Ratio 0.9 Activated Partial Thromboplast Time 23.8 SECONDS Partial Thromboplastin Ratio 0.9 Sodium Level 137 mmol/L Potassium Level 2.7 mmol/L Chloride Level 100 mmol/L Carbon Dioxide Level 26 mmol/L Anion Gap 11.0 mmol/L Blood Urea Nitrogen 8 mg/dl Creatinine 1.36 mg/dl Est Creatinine Clear Calc Drug Dose 45.8 ml/min Estimated GFR () 52.1 Estimated GFR (Non- 44.9 BUN/Creatinine Ratio 6.1 Random Glucose 258 mg/dl Estimated Average Glucose 157 mg/dl Hemoglobin A1c 7.1 % Calcium Level 7.9 mg/dl Phosphorus Level 0.7 mg/dl Magnesium Level 2.3 mg/dl Total Bilirubin 0.9 mg/dl Direct Bilirubin 0.3 mg/dl Aspartate Amino Transf (AST/SGOT) 236 U/L Alanine Aminotransferase (ALT/SGPT) 105 U/L Alkaline Phosphatase 126 U/L Total Protein 6.1 gm/dl Albumin 2.8 gm/dl Lipase 85 U/L Bedside Glucose 299 mg/dl Total Creatine Kinase 3702 U/L Troponin I 0.031 ng/ml Assessment and Plan 51 year old female with chronic alcoholism, who presents with suspected GI bleed. Hb is stable without intervention. Patient is currently being observed for withdrawal symptoms. Last drink suspected to have been 2-3 days ago. Upper GI Bleed/ Hematemesis - Per GI, unlikely upper GI bleed or if so likely self-limited. Endoscopy has been deferred. Source not definite In the setting of EtOH abuse, would highly suspect gastritis - Hb 14 on arrival; has dropped down to 10 but is remaining stable without intervention - No new episodes of vomiting, or melena - Continue Protonix BID; continue IV today; start PO tomorrow - Zofran as needed for nausea - Continue trending CBC Chronic Alcoholism/ Alcohol withdrawal, with previous Hx of DTs - Ethyl Alcohol 333.4 on arrival - Thiamine 500mg; Folic Acid 1mg; Multivitamin daily - Liver US: Heterogeneous liver suggesting mild fatty infiltration behind with potential early cirrhotic change - AST/ALT 211/91; reflective of EtOH related hepatitis - Lorazepam per CIWA protocol; Librium not given due to transaminitis - Last drink 2-3 days ago: is still well within window of alcoholic hallucinosis , seizures and delirium tremens Hypokalemia - K 2.7 - 30 mmol KPhos x 3 ordered by ICU - Will repeat BMP in PM Rhabdomyolysis - Very mild; CK 3000 today; slightly improved from 4000 yesterday - Continue to follow; No evidence of worsening LIAM, in fact it is improving - Possibly due to immobility prior finding Thrombocytopenia - 80s today - Likely multifactorial: EtOH abuse, acute illness - Trend - No evidence of bleeding Hyperglycemia / New diagnosis of Type 2 Diabetes mellitus - Noted BSGs in the 200-300 - HbA1c checked 7.1; new evidence of T2DM - Will add SSI - Consider discharge on Metformin vs Lifestyle modification x 3 months and re- assessment Elevated Troponin - Transient elevation at 0.06, has come down to 0.03 - Never reports having had chest pain - Suspect supply/demand Acute Kidney Injury - Continues to improve; down to 1.3 today; still elevated compared to baseline 0.7 - Continue gentle IV hydration with NSS at 75; will also encourage PO fluid intake - Follow daily BMP Transaminitis with Fatty Liver with Cirrhosis - AST > ALT - Noted on Liver U/S - Likely due to fatty liver - Negative Viral Hepatitis Panel - Trend Major Depressive Disorder - Psych liaison contacted and will get involved with treatment after withdrawal is compete DVT - SCDs - Hold pharmacological prophylaxis given suspected bleed and thrombocytopenia Code Status - Full Resuscitation Disposition - Transfer out of ICU to Med/Surg Resident Physician Supervision Note: I interviewed and examined the patient. Discussed with Dr. Stephen and agree with findings and plan as documented in the note. Any exceptions or clarifications are listed here: None Documented By: Jelani Gabriel eating feeling better no shakes vitals noted nad breathing unlabored EtOH abuse/ intoxication - appearing more stable from all of above, no s/s withdrawal, replace lytes hopefully home tomorrow Continued [facility] stay due to: other (monitor for withdrawals) Discharge planning: home, uncertain
--- NOTE | 2017-11-28 08:08 | DIAGNOSTIC IMAGING REPORT ---
SINGLE VIEW CHEST CLINICAL HISTORY: GI bleeding. FINDINGS: An AP, portable, upright chest radiograph is compared to study dated 11/27/2017. The examination is degraded by portable technique and patient rotation. The cardiomediastinal silhouette is unremarkable. There is minimal bibasilar atelectasis. The lungs and pleural spaces are otherwise clear. No pneumothorax is seen. The skeletal structures appear osteopenic. There are healed left-sided rib fractures. IMPRESSION: No acute cardiopulmonary abnormality and no significant change from yesterday. Electronically signed by: Lauro Nj M.D. 11/28/2017 8:07 AM Dictated Date/Time: 11/28/2017 8:05 AM
[2017-11-28] MEDS: POTASSIUM PHOSPHATE INJ 30 MMOL in SODIUM CHLORIDE 0.9% 500ML 500 ML IV SCH ×3 (08:38→23:22)
[2017-11-28] MEDS: PHENOBARBITAL 32.4 MG TAB PO SCH ×2 (08:50→14:37)
[2017-11-28] MEDS ORDERED: SODIUM CHLORIDE 0.9% 1000ML 1,000 ML IV SCH (09:00)
--- NOTE | 2017-11-28 10:03 | Gastroenterology Progress Note ---
Progress Note Date of Service: Nov 28, 2017 Subjective Pt evaluation today including: conversation w/ patient, physical exam, chart review, lab review, review of studies, review of inpatient medication list Ms. Chiu is a 51 yr old admitted with alcohol intoxication. GI was consulted for ? hematemesis which pt maintains was vomiting up chocolate Slim Fast. Hb on arrival 12.2, today 10.2, w/o any blood transfusions. Cr was 2.8 yesterday , 1.3 today. US with fatty liver, possible early cirrhosis, no evidence of obstruction. Trasaminases yesterday and today moderately elevated with AST>ALT consistent with alcoholic liver disease. This morning she is awake, alert, sitting up in a chair at the bedside. The agitation present yesterday seems to be resolved today. She has not had vomiting since yesterday. She reports one formed brown BM since yesterday. She ate a regular diet this morning. Review of Systems Constitutional: No fever ENT: No hearing loss Respiratory: No cough Cardiac: No chest pain Abdomen: No pain, No nausea, No vomiting, No diarrhea, No constipation, No GI bleeding, No dysphagia, No odynophagia Musculoskeletal: No joint pain Female : No dysuria Neuro: No memory loss Psych: No depression symptoms Heme: No abnormal bleeding/bruising Endo: No fatigue Skin: No rash Medications Current Inpatient Medications Medications (Trade) Dose Ordered Sig/Gisselle Route Start Time Stop Time Status Last Admin Dose Admin Acetaminophen (Tylenol Tab) 650 mg Q4H PRN PO 11/27/17 02:45 12/27/17 02:44 Albuterol/ Ipratropium (Duoneb) 3 ml Q6R PRN INH 11/27/17 02:45 12/27/17 02:44 Miscellaneous Information (Icu Protocol For Hyperglycemia) 1 ea PRN PRN N/A 11/27/17 02:45 11/29/17 02:44 Glucose (Glucose 40% Gel) 15-30 GRAMS 15 GRAMS... UD PRN PO 11/27/17 02:45 12/27/17 02:44 Glucose (Glucose Chew Tab) 4-8 Tablets 4 Tabl... UD PRN PO 11/27/17 02:45 12/27/17 02:44 Dextrose (Dextrose 50% 50ML Syringe) 25-50ML OF 50% DW IV FOR... UD PRN IV 11/27/17 02:45 12/27/17 02:44 Glucagon (Glucagon Inj) 1 mg UD PRN SQ 11/27/17 02:45 12/27/17 02:44 Lorazepam (Ativan Inj) 1 mg ONE PRN IV 11/27/17 02:45 Ondansetron HCl (Zofran Inj) 4 mg Q6H PRN IV 11/27/17 06:30 12/27/17 06:29 Prochlorperazine Edisylate 10 mg/ Syringe 10 ml @ 5 mls/min Q4H PRN IV 11/27/17 08:30 12/27/17 08:29 11/27/17 09:23 5 MLS/MIN Thiamine HCl 500 mg/Folic Acid 1 mg/Sodium Chloride 55.2 ml @ 110 mls/hr Q24H IV 11/27/17 11:00 12/27/17 10:59 11/27/17 12:42 110 MLS/HR Pantoprazole Sodium 40 mg/ Syringe 10 ml @ 5 mls/min DAILY@ IV 11/27/17 10:00 12/27/17 09:59 11/28/17 07:29 5 MLS/MIN Gabapentin (Neurontin Cap) 300 mg TID PO 11/27/17 21:00 12/27/17 20:59 11/28/17 07:28 300 MG Insulin Aspart (novoLOG ASPART) SLIDING SCALE If C... ACHS SC 11/28/17 06:45 12/28/17 06:44 UNV Glucose (Glucose 40% Gel) 15-30 GRAMS 15 GRAMS... UD PRN PO 11/28/17 06:45 12/28/17 06:44 Glucose (Glucose Chew Tab) 4-8 Tablets 4 Tabl... UD PRN PO 11/28/17 06:45 12/28/17 06:44 Dextrose (Dextrose 50% 50ML Syringe) 25-50ML OF 50% DW IV FOR... UD PRN IV 11/28/17 06:45 12/28/17 06:44 Glucagon (Glucagon Inj) 1 mg UD PRN SQ 11/28/17 06:45 12/28/17 06:44 Phenobarbital (Phenobarbital Tab) 32.4 mg TID PO 11/28/17 09:00 12/28/17 08:59 11/28/17 08:50 32.4 MG Potassium Phosphate 30 mmol/ Sodium Chloride 510 ml @ 88 mls/hr Q8H IV 11/28/17 08:30 11/29/17 06:18 11/28/17 08:38 88 MLS/HR Sodium Chloride 1,000 ml @ 200 mls/hr Q5H IV 11/28/17 09:00 12/28/17 08:59 Objective Vital Signs Date Time Temp Pulse Resp B/P (MAP) Pulse Ox O2 Delivery O2 Flow Rate FiO2 11/28/17 06:23 79 20 131/76 (94) 98 Room Air 11/28/17 04:00 Room Air 11/28/17 04:00 36.9 80 20 136/84 (101) 100 Room Air 11/28/17 02:00 97 18 123/75 (91) 98 Room Air 11/28/17 00:01 37.0 93 20 124/84 (97) 98 Room Air 11/27/17 23:59 Room Air 11/27/17 22:00 37.0 95 22 137/73 (94) 97 Room Air 11/27/17 20:00 98 Room Air 11/27/17 20:00 37.0 103 20 149/78 (101) 98 Room Air 11/27/17 17:00 102 20 140/76 (97) 98 Room Air 11/27/17 16:00 97 Room Air 11/27/17 16:00 37.1 111 18 147/73 (97) 97 Room Air 11/27/17 15:01 107 16 131/77 (99) 97 11/27/17 15:00 112 21 97 11/27/17 14:00 105 18 97 11/27/17 14:00 36.9 113 31 132/75 (94) 97 Room Air 11/27/17 13:00 109 11/27/17 12:00 36.6 100 25 137/74 95 11/27/17 12:00 99 Room Air 11/27/17 12:00 36.6 100 20 137/74 (95) 100 Room Air 11/27/17 11:00 107 11/27/17 10:10 122 18 124/64 (84) 95 Room Air 2.0 11/27/17 10:10 122 14 124/68 95 Physical Exam General Appearance: no apparent distress ENT: pharynx normal Neck: no JVD Respiratory/Chest: lungs clear Cardiovascular: regular rate, rhythm, no JVD, no murmur Abdomen: normal bowel sounds, non tender, soft Extremities: non-tender Neurologic/Psych: alert, normal mood/affect, oriented x 3 Skin: normal color, no jaundice, warm/dry, no rash Laboratory Results Last 24 Hours Test 11/27/17 10:09 11/27/17 10:41 11/27/17 15:44 11/27/17 18:35 Bedside Glucose 210 mg/dl Hemoglobin 10.9 g/dL 10.6 g/dL Hematocrit 31.9 % 31.2 % Sodium Level 137 mmol/L 135 mmol/L Potassium Level 3.9 mmol/L 3.6 mmol/L Chloride Level 103 mmol/L 101 mmol/L Carbon Dioxide Level 14 mmol/L 17 mmol/L Anion Gap 20.0 mmol/L 17.0 mmol/L Blood Urea Nitrogen 25 mg/dl 20 mg/dl Creatinine 1.52 mg/dl 1.56 mg/dl Est Creatinine Clear Calc Drug Dose 41.0 ml/min 39.9 ml/min Estimated GFR () 45.5 44.1 Estimated GFR (Non- 39.3 38.1 BUN/Creatinine Ratio 16.5 12.9 Random Glucose 189 mg/dl 342 mg/dl Calcium Level 6.8 mg/dl 7.0 mg/dl Total Creatine Kinase 3105 U/L 4156 U/L Creatine Kinase MB 76.5 ng/ml 83.2 ng/ml Creatine Kinase MB Ratio 2.5 2.0 Troponin I 0.036 ng/ml 0.064 ng/ml Beta-Hydroxybutyric Acid 45.55 mg/dL Test 11/27/17 19:40 11/28/17 05:30 11/28/17 05:47 11/28/17 06:18 Urine Opiates Screen NEG Urine Methadone, Qualitative NEG Urine Barbiturates POS Urine Phencyclidine (PCP) Level NEG Ur Amphetamine/Methamphetamine NEG MDMA (Ecstasy) Screen NEG Urine Benzodiazepines Screen NEG Urine Cocaine Metabolite NEG Urine Marijuana (THC) NEG Stool Occult Blood NEGATIVE White Blood Count 5.05 K/uL Red Blood Count 3.68 M/uL Hemoglobin 10.6 g/dL Hematocrit 30.6 % Mean Corpuscular Volume 83.2 fL Mean Corpuscular Hemoglobin 28.8 pg Mean Corpuscular Hemoglobin Concent 34.6 g/dl Platelet Count 81 K/uL Mean Platelet Volume 9.3 fL Neutrophils (%) (Auto) 71.8 % Lymphocytes (%) (Auto) 22.6 % Monocytes (%) (Auto) 4.6 % Eosinophils (%) (Auto) 0.6 % Basophils (%) (Auto) 0.2 % Neutrophils # (Auto) 3.63 K/uL Lymphocytes # (Auto) 1.14 K/uL Monocytes # (Auto) 0.23 K/uL Eosinophils # (Auto) 0.03 K/uL Basophils # (Auto) 0.01 K/uL RDW Standard Deviation 47.9 fL RDW Coefficient of Variation 15.7 % Immature Granulocyte % (Auto) 0.2 % Immature Granulocyte # (Auto) 0.01 K/uL Platelet Estimate DECREASED Prothrombin Time 9.9 SECONDS Prothromb Time International Ratio 0.9 Activated Partial Thromboplast Time 23.8 SECONDS Partial Thromboplastin Ratio 0.9 Sodium Level 137 mmol/L Potassium Level 2.7 mmol/L Chloride Level 100 mmol/L Carbon Dioxide Level 26 mmol/L Anion Gap 11.0 mmol/L Blood Urea Nitrogen 8 mg/dl Creatinine 1.36 mg/dl Est Creatinine Clear Calc Drug Dose 45.8 ml/min Estimated GFR () 52.1 Estimated GFR (Non- 44.9 BUN/Creatinine Ratio 6.1 Random Glucose 258 mg/dl Calcium Level 7.9 mg/dl Phosphorus Level 0.7 mg/dl Magnesium Level 2.3 mg/dl Total Bilirubin 0.9 mg/dl Direct Bilirubin 0.3 mg/dl Aspartate Amino Transf (AST/SGOT) 236 U/L Alanine Aminotransferase (ALT/SGPT) 105 U/L Alkaline Phosphatase 126 U/L Total Protein 6.1 gm/dl Albumin 2.8 gm/dl Lipase 85 U/L Bedside Glucose 299 mg/dl Test 11/28/17 08:01 11/28/17 09:45 Total Creatine Kinase 3702 U/L Troponin I 0.031 ng/ml Assessment and Plan Ms. Chiu is a 51 yr old female detoxing from alcohol. Imaging and LFTs are consistent with fatty liver/fibrosis vs. early cirrhosis. Her relatively stable Hb 12.2 ->10.9 and lack of further questionable hematemesis suggested no active or no significant active GI bleeding. Plan: 1. Would defer endoscopy. 2. Alcohol cessation. Pt indicates she is ready to stop drinking, that it is "poison, and not a good poison." Encouraged formal counselling and support such as AA. 3. Pt encouraged to make an OP GI f/u (after alcohol cessation) to w/u for cirrhosis including setting up for OP EGD, she is unsure if she would like to do this here in [place] or in [place]. I performed a history and physical examination of the patient. I have discussed the patient's case, impression and plan with UBALDO Rojas. Her note reflects my findings and plan. The most important thing she can do is to stop ETOH. Connor Causey MD
[2017-11-28 10:21] LABS: HEMOGLOBIN A1C 7.1 % (4.5-5.6)
[2017-11-28] MEDS ORDERED: THIAMINE HCL 100 MG TAB PO ONE (11:20)
[2017-11-28] MEDS ORDERED: FLINTSTONES COMPLETE CHEWABLE TAB PO ONE (11:20)
[2017-11-28] MEDS: INSULIN ASPART 100 UNITS/ML 3 ML PEN SC SCH ×3 (12:29→22:14)
[2017-11-28] MEDS ORDERED: POTASSIUM PHOS 3 MMOL/1 ML INFUSION IV SCH (14:00)
[2017-11-28 15:42] LABS: CALCIUM 8.1 mg/dl (8.5-10.1); POTASSIUM 3.1 mmol/L (3.5-5.1)
[2017-11-28 17:07] LABS: CREATININE 0.95 mg/dl (0.60-1.20); PHOSPHORUS 1.8 mg/dl (2.5-4.9)
--- NOTE | 2017-11-28 18:02 | Critical Care Progress Note ---
Critical Care Progress Note Date of Service Nov 28, 2017. Attending Dr. Ryan Subjective The patient continued to improve, she is more alert following commands, her chief complaint is her neuropathy in the lower extreme it is, no events overnight, no seizures, and no tremor. She is ambulatory. And tolerating oral intake. Objective Physical exam on 11/28/2017, stable vital signs, no fever, lungs are clear, heart examination S1 and S2 regular rate and rhythm, abdomen is benign, no tremor, neurologically she is nonfocal. A data reviewed which are consistent with improving rhabdomyolysis with declining CPK, improved renal function, resolved acidosis, no new imaging. Assessment & Plan #1 DT, improving. #2 peripheral neuropathy secondary to EtOH abuse. #3 alcoholism. #4 stress-related binge alcohol drinking according to the patient. #5 history of seizure disorder possibly related to alcohol, not on treatment and no recurrence. #6 rhabdomyolysis, etiology is possibly immobility when she was obtunded. #7 new onset diabetes. Plan: #1 I will change phenobarbital to oral 32 mg 3 times a day. Taper accordingly by half a dose or by frequency every day. #2 continue with thiamine and folic acid for total of 5 days. #3 continue with IV fluid until CPK is normalized. #4 oral intake. #5 physical therapy. #6 DVT and GI prophylaxis. #7 stop Librium. #8 diabetes education. #9 glucose control. #10 discussed with the staff on rounds and details. #[address] Stephen input, acceptance of this case earlier floor. #12 the patient needs significant counseling given her social stress and recurrence of alcohol binge drinking. Thank you, will follow as needed. Data Medications: Current Inpatient Medications Medications (Trade) Dose Ordered Sig/Gisselle Route Start Time Stop Time Status Last Admin Dose Admin Acetaminophen (Tylenol Tab) 650 mg Q4H PRN PO 11/27/17 02:45 12/27/17 02:44 Albuterol/ Ipratropium (Duoneb) 3 ml Q6R PRN INH 11/27/17 02:45 12/27/17 02:44 Miscellaneous Information ([facility] Protocol For Hyperglycemia) 1 ea PRN PRN N/A 11/27/17 02:45 11/29/17 02:44 Glucose (Glucose 40% Gel) 15-30 GRAMS 15 GRAMS... UD PRN PO 11/27/17 02:45 3/24/18 02:44 Glucose (Glucose Chew Tab) 4-8 Tablets 4 Tabl... UD PRN PO 11/27/17 02:45 12/27/17 02:44 Dextrose (Dextrose 50% 50ML Syringe) 25-50ML OF 50% DW IV FOR... UD PRN IV 11/27/17 02:45 12/27/17 02:44 Glucagon (Glucagon Inj) 1 mg UD PRN SQ 11/27/17 02:45 12/27/17 02:44 Lorazepam (Ativan Inj) 1 mg ONE PRN IV 11/27/17 02:45 Ondansetron HCl (Zofran Inj) 4 mg Q6H PRN IV 11/27/17 06:30 12/27/17 06:29 Prochlorperazine Edisylate 10 mg/ Syringe 10 ml @ 5 mls/min Q4H PRN IV 11/27/17 08:30 12/27/17 08:29 11/27/17 09:23 5 MLS/MIN Pantoprazole Sodium 40 mg/ Syringe 10 ml @ 5 mls/min DAILY@ IV 11/27/17 10:00 11/28/17 23:59 11/28/17 07:29 5 MLS/MIN Gabapentin (Neurontin Cap) 300 mg TID PO 11/27/17 21:00 12/27/17 20:59 11/28/17 14:37 300 MG Insulin Aspart (novoLOG ASPART) SLIDING SCALE If C... ACHS SC 11/28/17 11:00 12/28/17 10:59 11/28/17 12:29 6 UNITS Potassium Phosphate 30 mmol/ Sodium Chloride 510 ml @ 88 mls/hr Q8H IV 11/28/17 08:30 11/29/17 08:00 11/28/17 16:12 88 MLS/HR Folic Acid (Folvite Tab) 1 mg QAM PO 11/29/17 09:00 12/29/17 08:59 Thiamine HCl (Vitamin B-1 Tab) 100 mg QAM PO 11/29/17 09:00 12/29/17 08:59 Multivitamins (Flintstones Complete Tab) 1 tab QAM PO 11/29/17 09:00 12/29/17 08:59 Pantoprazole Sodium (Protonix Tab) 40 mg BID PO 11/29/17 09:00 12/29/17 08:59 I & O: 24-Hour Column 11/29/17 07:59 Intake Total 2232 ml Balance 2232 ml Vital Signs: Date Time Temp Pulse Resp B/P (MAP) Pulse Ox O2 Delivery O2 Flow Rate FiO2 11/28/17 16:00 78 18 Room Air 11/28/17 16:00 Room Air 11/28/17 12:38 75 18 138/94 (109) Room Air 11/28/17 12:00 Room Air 11/28/17 10:00 83 18 129/90 (103) Room Air 11/28/17 08:00 Room Air 11/28/17 08:00 Room Air 11/28/17 08:00 72 18 136/92 (107) 96 Room Air 11/28/17 06:23 79 20 131/76 (94) 98 Room Air 11/28/17 04:00 Room Air 11/28/17 04:00 36.9 80 20 136/84 (101) 100 Room Air 11/28/17 02:00 97 18 123/75 (91) 98 Room Air 11/28/17 00:01 37.0 93 20 124/84 (97) 98 Room Air 11/27/17 23:59 Room Air 11/27/17 22:00 37.0 95 22 137/73 (94) 97 Room Air 11/27/17 20:00 98 Room Air 11/27/17 20:00 37.0 103 20 149/78 (101) 98 Room Air Laboratory Results: Last 24 Hours Test 11/27/17 18:35 11/27/17 19:40 11/28/17 05:30 11/28/17 05:47 Total Creatine Kinase 4156 U/L Creatine Kinase MB 83.2 ng/ml Creatine Kinase MB Ratio 2.0 Troponin I 0.064 ng/ml Urine Opiates Screen NEG Urine Methadone, Qualitative NEG Urine Barbiturates POS Urine Phencyclidine (PCP) Level NEG Ur Amphetamine/Methamphetamine NEG MDMA (Ecstasy) Screen NEG Urine Benzodiazepines Screen NEG Urine Cocaine Metabolite NEG Urine Marijuana (THC) NEG Stool Occult Blood NEGATIVE White Blood Count 5.05 K/uL Red Blood Count 3.68 M/uL Hemoglobin 10.6 g/dL Hematocrit 30.6 % Mean Corpuscular Volume 83.2 fL Mean Corpuscular Hemoglobin 28.8 pg Mean Corpuscular Hemoglobin Concent 34.6 g/dl Platelet Count 81 K/uL Mean Platelet Volume 9.3 fL Neutrophils (%) (Auto) 71.8 % Lymphocytes (%) (Auto) 22.6 % Monocytes (%) (Auto) 4.6 % Eosinophils (%) (Auto) 0.6 % Basophils (%) (Auto) 0.2 % Neutrophils # (Auto) 3.63 K/uL Lymphocytes # (Auto) 1.14 K/uL Monocytes # (Auto) 0.23 K/uL Eosinophils # (Auto) 0.03 K/uL Basophils # (Auto) 0.01 K/uL RDW Standard Deviation 47.9 fL RDW Coefficient of Variation 15.7 % Immature Granulocyte % (Auto) 0.2 % Immature Granulocyte # (Auto) 0.01 K/uL Platelet Estimate DECREASED Prothrombin Time 9.9 SECONDS Prothromb Time International Ratio 0.9 Activated Partial Thromboplast Time 23.8 SECONDS Partial Thromboplastin Ratio 0.9 Sodium Level 137 mmol/L Potassium Level 2.7 mmol/L Chloride Level 100 mmol/L Carbon Dioxide Level 26 mmol/L Anion Gap 11.0 mmol/L Blood Urea Nitrogen 8 mg/dl Creatinine 1.36 mg/dl Est Creatinine Clear Calc Drug Dose 45.8 ml/min Estimated GFR () 52.1 Estimated GFR (Non- 44.9 BUN/Creatinine Ratio 6.1 Random Glucose 258 mg/dl Estimated Average Glucose 157 mg/dl Hemoglobin A1c 7.1 % Calcium Level 7.9 mg/dl Phosphorus Level 0.7 mg/dl Magnesium Level 2.3 mg/dl Total Bilirubin 0.9 mg/dl Direct Bilirubin 0.3 mg/dl Aspartate Amino Transf (AST/SGOT) 236 U/L Alanine Aminotransferase (ALT/SGPT) 105 U/L Alkaline Phosphatase 126 U/L Total Protein 6.1 gm/dl Albumin 2.8 gm/dl Lipase 85 U/L Test 11/28/17 06:18 11/28/17 08:01 11/28/17 11:29 11/28/17 14:55 Bedside Glucose 299 mg/dl 255 mg/dl Total Creatine Kinase 3702 U/L Troponin I 0.031 ng/ml Sodium Level 140 mmol/L Potassium Level 3.1 mmol/L Chloride Level 102 mmol/L Carbon Dioxide Level 29 mmol/L Anion Gap 9.0 mmol/L Blood Urea Nitrogen 5 mg/dl Creatinine 0.95 mg/dl Est Creatinine Clear Calc Drug Dose 65.5 ml/min Estimated GFR () 80.4 Estimated GFR (Non- 69.4 BUN/Creatinine Ratio 5.6 Random Glucose 93 mg/dl Calcium Level 8.1 mg/dl Phosphorus Level 1.8 mg/dl Test 11/28/17 16:09 Bedside Glucose 99 mg/dl
[2017-11-29 00:01] VITALS: BP 122/71; PULSE 69; TEMP 36.2; O2SAT 100
[2017-11-29 07:18] VITALS: BP_SYST 150; BP_SYST 158; BP_DIAS 83; BP_DIAS 90; PULSE 66; TEMP 36.3; O2SAT 99
--- NOTE | 2017-11-29 07:25 | DIAGNOSTIC IMAGING REPORT ---
CHEST ONE VIEW PORTABLE CLINICAL HISTORY: Dehydration. Follow-up possible pneumonia. COMPARISON STUDY: Chest radiograph November 28, 2017. FINDINGS: Lung volumes are normal. No pneumothorax or pleural effusion is noted. Pulmonary vascularity is normal. Cardiac size is normal. Mediastinal contours are normal. There are multiple old left rib fractures. IMPRESSION: No acute cardiopulmonary findings. Electronically signed by: Bola Ivey M.D. 11/29/2017 7:23 AM Dictated Date/Time: 11/29/2017 7:22 AM
[2017-11-29] MEDS: GABAPENTIN 300 MG CAP PO SCH ×3 (07:58→20:36)
[2017-11-29] MEDS: PANTOprazole SOD 40 MG TAB PO SCH ×2 (07:58→20:37)
[2017-11-29] MEDS: THIAMINE HCL 100 MG TAB PO SCH (07:59)
[2017-11-29] MEDS: FLINTSTONES COMPLETE CHEWABLE TAB PO SCH (07:59)
[2017-11-29 08:26] VITALS: O2SAT 99
[2017-11-29 08:36] LABS: WHITE BLOOD COUNT 4.12 K/uL (4.8-10.8)
[2017-11-29 08:37] LABS: HEMATOCRIT 32.8 % (37-47); HEMOGLOBIN 11.3 g/dL (12.0-16.0); MEAN CELL VOLUME 82.8 fL (80-100); MEAN CORPUSCULAR HEMOGLOBIN 28.5 pg (25-34); RED CELL DISTRIBUTION WIDTH CV 15.6 % (11.5-14.5)
[2017-11-29 08:39] LABS: ALBUMIN 3.3 gm/dl (3.4-5.0); ALT/SGPT 125 U/L (12-78); BLOOD UREA NITROGEN 4 mg/dl (7-18); CALCIUM 7.9 mg/dl (8.5-10.1); CARBON DIOXIDE 29 mmol/L (21-32); CREATININE 0.84 mg/dl (0.60-1.20); GLUCOSE 184 mg/dl (70-99); POTASSIUM 3.4 mmol/L (3.5-5.1); SODIUM 136 mmol/L (136-145)
[2017-11-29 08:47] LABS: ALKALINE PHOSPHATASE 143 U/L (45-117); AST/SGOT 218 U/L (15-37); CKMB 18.3 ng/ml (0.5-3.6); PHOSPHORUS 2.9 mg/dl (2.5-4.9); TOTAL PROTEIN 6.7 gm/dl (6.4-8.2)
[2017-11-29 08:53] LABS: MEAN CORPUSCULAR HGB CONC 34.5 g/dl (32-36); MEAN PLATELET VOLUME 9.4 fL (7.4-10.4); PLATELET COUNT 62 K/uL (130-400)
[2017-11-29] MEDS: INSULIN ASPART 100 UNITS/ML 3 ML PEN SC SCH ×4 (08:56→20:40)
--- NOTE | 2017-11-29 09:18 | Family Medicine Progress Note ---
Progress Note Date of Service Nov 29, 2017. Subjective Pt evaluation today including: conversation w/ patient, physical exam, chart review, lab review, review of studies, review of inpatient medication list Pain: None No acute events overnight. No question or concerns. No chest pain, abdominal pain, nausea or vomiting. Having regular normal BM, no melena or blood. No tremors, agitation, sweating. She notes a generalized underlying anxiety. Having problems with sleeping but no worse than usual. Unaware of sleep hygiene. Medications Current Inpatient Medications Medications (Trade) Dose Ordered Sig/Gisselle Route Start Time Stop Time Status Last Admin Dose Admin Acetaminophen (Tylenol Tab) 650 mg Q4H PRN PO 11/27/17 02:45 12/27/17 02:44 Albuterol/ Ipratropium (Duoneb) 3 ml Q6R PRN INH 11/27/17 02:45 12/27/17 02:44 Glucose (Glucose 40% Gel) 15-30 GRAMS 15 GRAMS... UD PRN PO 11/27/17 02:45 12/27/17 02:44 Glucose (Glucose Chew Tab) 4-8 Tablets 4 Tabl... UD PRN PO 11/27/17 02:45 12/27/17 02:44 Dextrose (Dextrose 50% 50ML Syringe) 25-50ML OF 50% DW IV FOR... UD PRN IV 11/27/17 02:45 12/27/17 02:44 Glucagon (Glucagon Inj) 1 mg UD PRN SQ 11/27/17 02:45 12/27/17 02:44 Lorazepam (Ativan Inj) 1 mg ONE PRN IV 11/27/17 02:45 Ondansetron HCl (Zofran Inj) 4 mg Q6H PRN IV 11/27/17 06:30 12/27/17 06:29 Prochlorperazine Edisylate 10 mg/ Syringe 10 ml @ 5 mls/min Q4H PRN IV 11/27/17 08:30 12/27/17 08:29 11/27/17 09:23 5 MLS/MIN Gabapentin (Neurontin Cap) 300 mg TID PO 11/27/17 21:00 12/27/17 20:59 11/29/17 07:58 300 MG Insulin Aspart (novoLOG ASPART) SLIDING SCALE If C... ACHS SC 11/28/17 11:00 12/28/17 10:59 11/29/17 08:56 4 UNITS Folic Acid (Folvite Tab) 1 mg QAM PO 11/29/17 08:00 12/29/17 08:59 11/29/17 07:59 1 MG Thiamine HCl (Vitamin B-1 Tab) 100 mg QAM PO 11/29/17 08:00 12/29/17 08:59 11/29/17 07:59 100 MG Multivitamins (Flintstones Complete Tab) 1 tab QAM PO 11/29/17 08:00 12/29/17 08:59 11/29/17 07:59 1 TAB Pantoprazole Sodium (Protonix Tab) 40 mg BID PO 11/29/17 08:00 12/29/17 08:59 11/29/17 07:58 40 MG Objective Vital Signs Date Time Temp Pulse Resp B/P (MAP) Pulse Ox O2 Delivery O2 Flow Rate FiO2 11/29/17 08:26 99 Room Air 11/29/17 07:18 36.3 66 18 158/90 (112) 99 Room Air 150/83 (105) 11/29/17 00:01 36.2 69 22 122/71 (88) 100 Room Air 11/28/17 18:00 36.9 78 18 96 11/28/17 16:00 78 18 Room Air 11/28/17 16:00 Room Air 11/28/17 12:38 75 18 138/94 (109) Room Air 11/28/17 12:00 Room Air 11/28/17 10:00 83 18 129/90 (103) Room Air Physical Exam General Appearance: WD/WN, no apparent distress Eyes: PERRL, EOMI Respiratory/Chest: chest non-tender, lungs clear, normal breath sounds, no respiratory distress Cardiovascular: regular rate, rhythm, no murmur Abdomen: normal bowel sounds, non tender, soft Extremities: no pedal edema, no calf tenderness Neurologic/Psychiatric: alert, oriented x 3, + pertinent finding (no tremor, sweating or agitation) Skin: normal color, warm/dry, no rash Laboratory Results 11/29/17 08:18 11/29/17 07:42 Test 11/29/17 07:42 11/29/17 07:46 11/29/17 08:18 Anion Gap 7.0 mmol/L (3-11) Est Creatinine Clear Calc Drug Dose 74.1 ml/min Estimated GFR () 93.3 Estimated GFR (Non- 80.5 BUN/Creatinine Ratio 4.5 (10-20) Calcium Level 7.9 mg/dl (8.5-10.1) Phosphorus Level 2.9 mg/dl (2.5-4.9) Magnesium Level 1.8 mg/dl (1.8-2.4) Total Bilirubin 0.9 mg/dl (0.2-1) Direct Bilirubin 0.3 mg/dl (0-0.2) Aspartate Amino Transf (AST/SGOT) 218 U/L (15-37) Alanine Aminotransferase (ALT/SGPT) 125 U/L (12-78) Alkaline Phosphatase 143 U/L (45-117) Creatine Kinase MB 18.3 ng/ml (0.5-3.6) Creatine Kinase MB Ratio (0-3.0) Troponin I < 0.015 ng/ml (0-0.045) Total Protein 6.7 gm/dl (6.4-8.2) Albumin 3.3 gm/dl (3.4-5.0) Bedside Glucose 209 mg/dl (70-90) Red Blood Count 3.96 M/uL (4.2-5.4) Mean Corpuscular Volume 82.8 fL (80-100) Mean Corpuscular Hemoglobin 28.5 pg (25-34) Mean Corpuscular Hemoglobin Concent 34.5 g/dl (32-36) RDW Standard Deviation 47.0 fL (36.4-46.3) RDW Coefficient of Variation 15.6 % (11.5-14.5) Mean Platelet Volume 9.4 fL (7.4-10.4) Assessment and Plan 51 year old female with chronic alcoholism, who presents with suspected GI bleed. Hgb stable without intervention. Patient is currently being observed for withdrawal symptoms. Alcohol 333 on admission. Upper GI Bleed/ Hematemesis - Per GI, unlikely upper GI bleed or if so likely self-limited. Endoscopy has been deferred. Source not definite - In the setting of EtOH abuse, would highly suspect gastritis - No new episodes of vomiting, or melena - Continue pantoprazole 40 mg PO BID - Zofran as needed for nausea Chronic Alcoholism/ Alcohol withdrawal, with previous Hx of DTs - Ethyl Alcohol 333.4 on arrival - Thiamine 100mg; stop Folic Acid due to elevated levels; Multivitamin daily - Lorazepam per [facility] protocol; Librium not given due to transaminitis Hypokalemia - replace as needed, repeat as outpatient in 1 week Thrombocytopenia - 61 today - secondary to alcohol, continue to trend as outpatient (occurred on previous admission plt down to 30) - Trend as outpatient in 1-2 days post discharge Rhabdomyolysis - very mild - repeat in 1 week or if symptomatic as outpatient on discharge Type 2 Diabetes mellitus - new diagnosis, HbA1C 7.1 - Start metformin 500mg PO daily - insulin sliding scale while in hospital Elevated Troponin - Transient elevation at 0.06, has come down to 0.03 - Not ACS - no chest pain Acute Kidney Injury - resolved Transaminitis with Fatty Liver with Cirrhosis - Negative Viral Hepatitis Panel - repeat as outpatient in 1 week Major Depressive Disorder - Psych liaison contacted and will get involved with treatment after withdrawal is compete. Follow up with PCP. Will hold off trazodone at present given lower seizure threshold. DVT - SCDs - Hold pharmacological prophylaxis given suspected bleed and thrombocytopenia Code Status - Full Resuscitation Disposition - Medically stable for discharge. However currently homeless therefore will work with psych liaison and case management Resident Physician Supervision Note: I interviewed and examined the patient. Discussed with Dr. Willis and agree with findings and plan as documented in the note. Any exceptions or clarifications are listed here: None Documented By: Jelani Garbiel phsyically feeling better worried about where she'll go, encouraged her to reach out to mother vitals noted nad breathing unlabored no pallor or icterus EtOH intoxication - improved, no withdrawal, stable for discharge but can't ethically discharge to homelessness - awaiting further input from case management/psych nurse and encouraged her to call mother. hopefully home today Resident Tracking Resident Involvement: Resident Care Provided Care Provided: Adult Hospital Medicine
[2017-11-29] MEDS ORDERED: FLV1 PO (12:25)
[2017-11-29] MEDS ORDERED: THM100 PO (12:25)
[2017-11-29] MEDS ORDERED: GLC/500 PO (12:25)
[2017-11-29] MEDS ORDERED: PANT40TA PO (12:25)
--- NOTE | 2017-11-29 12:43 | Discharge Instructions ---
Discharge Instructions Date of Service Nov 29, 2017. Admission Reason for Admission: Alcohol Use Disorder, Hematemesis Without Nausea Discharge Discharge Diagnosis / Problem: Alcohol overdose, blood in vomit Discharge Goals Goal(s): Improve disease control Activity Recommendations Activity Limitations: resume your previous activity Lifting Limitations: none . Instructions / Follow-Up Instructions / Follow-Up You were admitted in [facility] from to 29 October after vomiting and heavy alcohol drinking. The vomit tested positive for blood however your hemoglobin levels have been stable. No endoscopy was performed. You have been started on a medication to reduce your stomach acid and protect your stomach lining ( pantoprazole). Please follow up with your primary care provider regarding this to see whether it needs to continue beyond 14 days. Alcohol intoxication - no withdrawal symptoms. Follow up with outpatient rehabilitation ([place]). Type 2 diabetes - incidentally you blood glucose levels were noticed to be elevated and subsequent HbA1C showed you have diabetes. You have been started on metformin for this. Please gradually increase the dose as prescribed. If you have an diarrhea, abdominal pain or nausea this may be due to the metformin and you should call your primary care provider for further advice. Major depressive disorder - you were evaluated by psychiatry regarding this, no medications recommend while mia through withdrawal. Follow up with your primary care provider. Current Hospital Diet Patient's current hospital diet: Diabetes Type 2 Diet Discharge Diet Recommended Diet: Diabetes Type 2 Diet Pending Studies Studies pending at discharge: no Laboratory Results Hemoglobin A1c Test 11/28/17 05:47 Range/Units Estimated Average Glucose 157 mg/dl Hemoglobin A1c 7.1 H 4.5-5.6 % Lipid Panel Test 09/01/17 10:56 Range/Units Triglycerides Level 119 0-150 mg/dl Cholesterol Level 190 0-200 mg/dl HDL Cholesterol 52 mg/dl Cholesterol/HDL Ratio 3.7 LDL Cholesterol, Calculated 114 mg/dl Medical Emergencies . Who to Call and When: Medical Emergencies: If at any time you feel your situation is an emergency, please call 911 immediately. . Non-Emergent Contact Non-Emergency issues call your: Primary Care Provider . . "Provider Documentation" section prepared by Alfonso Willis. . VTE Core Measure Inpt VTE Proph given/why not?: Contraindicated (hematemesis)
[2017-11-29 16:00] VITALS: O2SAT 99
[2017-11-29 16:07] VITALS: BP_SYST 152; BP_SYST 173; BP_DIAS 108; BP_DIAS 98; PULSE 73; TEMP 36.3; O2SAT 98
[2017-11-29] MEDS ORDERED: POTASSIUM CHLORIDE 20 MEQ TABCR PO ONE (18:30)
[2017-11-29 23:49] VITALS: BP 135/96; PULSE 84; TEMP 36.6; O2SAT 98
[2017-11-30] MEDS: FLINTSTONES COMPLETE CHEWABLE TAB PO SCH (07:52)
[2017-11-30] MEDS: PANTOprazole SOD 40 MG TAB PO SCH (07:52)
[2017-11-30] MEDS: GABAPENTIN 300 MG CAP PO SCH ×2 (07:52→14:02)
[2017-11-30] MEDS: THIAMINE HCL 100 MG TAB PO SCH (07:52)
[2017-11-30 07:54] VITALS: BP 123/89; PULSE 76; TEMP 36.6; O2SAT 100
[2017-11-30] MEDS ORDERED: POTASSIUM CHLORIDE 20 MEQ TABCR PO SCH (08:00)
[2017-11-30 08:06] LABS: HEMATOCRIT 35.7 % (37-47); HEMOGLOBIN 12.4 g/dL (12.0-16.0); MEAN CELL VOLUME 84.6 fL (80-100); MEAN CORPUSCULAR HEMOGLOBIN 29.4 pg (25-34); MEAN CORPUSCULAR HGB CONC 34.7 g/dl (32-36); RED CELL DISTRIBUTION WIDTH CV 15.6 % (11.5-14.5); RED CELL DISTRIBUTION WIDTH SD 48.4 fL (36.4-46.3); WHITE BLOOD COUNT 4.78 K/uL (4.8-10.8)
[2017-11-30 08:09] LABS: MEAN PLATELET VOLUME 9.9 fL (7.4-10.4); PLATELET COUNT 66 K/uL (130-400)
[2017-11-30 08:45] LABS: ALBUMIN 3.3 gm/dl (3.4-5.0); CALCIUM 8.8 mg/dl (8.5-10.1); CREATININE 0.77 mg/dl (0.60-1.20); PHOSPHORUS 2.6 mg/dl (2.5-4.9); POTASSIUM 4.1 mmol/L (3.5-5.1); TOTAL PROTEIN 6.8 gm/dl (6.4-8.2)
[2017-11-30] MEDS: INSULIN ASPART 100 UNITS/ML 3 ML PEN SC SCH ×2 (08:58→12:30)
--- NOTE | 2017-11-30 09:24 | Family Medicine Progress Note ---
Progress Note Date of Service Nov 30, 2017. Subjective Pt evaluation today including: conversation w/ patient, physical exam, chart review, lab review, review of studies, review of inpatient medication list Voiding: no voiding problems No acute issues overnight. Having problems sleeping but this is a chronic issue. No question or concerns. She called her mother last night and she will come and pick her up today around 3pm. All Other Systems: Reviewed and Negative Medications Current Inpatient Medications Medications (Trade) Dose Ordered Sig/Gisselle Route Start Time Stop Time Status Last Admin Dose Admin Acetaminophen (Tylenol Tab) 650 mg Q4H PRN PO 11/27/17 02:45 12/27/17 02:44 Albuterol/ Ipratropium (Duoneb) 3 ml Q6R PRN INH 11/27/17 02:45 12/27/17 02:44 Glucose (Glucose 40% Gel) 15-30 GRAMS 15 GRAMS... UD PRN PO 11/27/17 02:45 12/27/17 02:44 Glucose (Glucose Chew Tab) 4-8 Tablets 4 Tabl... UD PRN PO 11/27/17 02:45 12/27/17 02:44 Dextrose (Dextrose 50% 50ML Syringe) 25-50ML OF 50% DW IV FOR... UD PRN IV 11/27/17 02:45 12/27/17 02:44 Glucagon (Glucagon Inj) 1 mg UD PRN SQ 11/27/17 02:45 12/27/17 02:44 Lorazepam (Ativan Inj) 1 mg ONE PRN IV 11/27/17 02:45 Ondansetron HCl (Zofran Inj) 4 mg Q6H PRN IV 11/27/17 06:30 12/27/17 06:29 Prochlorperazine Edisylate 10 mg/ Syringe 10 ml @ 5 mls/min Q4H PRN IV 11/27/17 08:30 12/27/17 08:29 11/27/17 09:23 5 MLS/MIN Gabapentin (Neurontin Cap) 300 mg TID PO 11/27/17 21:00 12/27/17 20:59 11/30/17 07:52 300 MG Insulin Aspart (novoLOG ASPART) SLIDING SCALE If C... ACHS SC 11/28/17 11:00 12/28/17 10:59 11/30/17 08:58 3 UNITS Thiamine HCl (Vitamin B-1 Tab) 100 mg QAM PO 11/29/17 08:00 12/29/17 08:59 11/30/17 07:52 100 MG Multivitamins (Flintstones Complete Tab) 1 tab QAM PO 11/29/17 08:00 12/29/17 08:59 11/30/17 07:52 1 TAB Pantoprazole Sodium (Protonix Tab) 40 mg BID PO 11/29/17 08:00 12/29/17 08:59 11/30/17 07:52 40 MG Potassium Chloride (Klor-Con Tab) 20 meq QAM PO 11/30/17 08:00 12/30/17 07:59 11/30/17 07:52 20 MEQ Objective Vital Signs Date Time Temp Pulse Resp B/P (MAP) Pulse Ox O2 Delivery O2 Flow Rate FiO2 11/30/17 07:54 36.6 76 21 123/89 (100) 100 Room Air 11/29/17 23:49 36.6 84 18 135/96 (109) 98 Room Air 11/29/17 23:25 Room Air 11/29/17 16:07 36.3 73 16 173/108 (129) 98 Room Air 152/98 (116) 11/29/17 16:00 99 Room Air Physical Exam General Appearance: WD/WN, no apparent distress Eyes: normal inspection Respiratory/Chest: no respiratory distress, no accessory muscle use Cardiovascular: regular rate, rhythm, no murmur Abdomen: normal bowel sounds, non tender, soft Extremities: no pedal edema, no calf tenderness Neurologic/Psychiatric: no motor/sensory deficits (grossly normal, no tremors) , alert, oriented x 3 Laboratory Results 11/30/17 07:51 11/30/17 07:51 Test 11/29/17 17:30 11/30/17 07:51 11/30/17 08:05 Stool Occult Blood NEGATIVE (NEGATIVE) Red Blood Count 4.22 M/uL (4.2-5.4) Mean Corpuscular Volume 84.6 fL (80-100) Mean Corpuscular Hemoglobin 29.4 pg (25-34) Mean Corpuscular Hemoglobin Concent 34.7 g/dl (32-36) RDW Standard Deviation 48.4 fL (36.4-46.3) RDW Coefficient of Variation 15.6 % (11.5-14.5) Mean Platelet Volume 9.9 fL (7.4-10.4) Anion Gap 8.0 mmol/L (3-11) Est Creatinine Clear Calc Drug Dose 80.9 ml/min Estimated GFR () 103.6 Estimated GFR (Non- 89.4 BUN/Creatinine Ratio 8.4 (10-20) Calcium Level 8.8 mg/dl (8.5-10.1) Phosphorus Level 2.6 mg/dl (2.5-4.9) Magnesium Level 2.1 mg/dl (1.8-2.4) Total Bilirubin 1.0 mg/dl (0.2-1) Direct Bilirubin 0.3 mg/dl (0-0.2) Aspartate Amino Transf (AST/SGOT) 122 U/L (15-37) Alanine Aminotransferase (ALT/SGPT) 113 U/L (12-78) Alkaline Phosphatase 147 U/L (45-117) Total Creatine Kinase 666 U/L (26-192) Total Protein 6.8 gm/dl (6.4-8.2) Albumin 3.3 gm/dl (3.4-5.0) Bedside Glucose 178 mg/dl (70-90) Assessment and Plan 51 year old female with chronic alcoholism, who presents with suspected GI bleed. Hgb stable without intervention. Patient is currently being observed for withdrawal symptoms. Alcohol 333 on admission. Upper GI Bleed/ Hematemesis - Per GI, unlikely upper GI bleed or if so likely self-limited. Endoscopy has been deferred. Source not definite - In the setting of EtOH abuse, would highly suspect gastritis - No new episodes of vomiting, or melena - Continue pantoprazole 40 mg PO BID - Zofran as needed for nausea Chronic Alcoholism/ Alcohol withdrawal, with previous Hx of DTs - Ethyl Alcohol 333.4 on arrival - Thiamine 100mg; stop Folic Acid due to elevated levels; Multivitamin daily - Lorazepam per [facility] protocol Hypokalemia - replace as needed, repeat as outpatient in 1 week Thrombocytopenia - 66 today - secondary to alcohol, continue to trend as outpatient (occurred on previous admission plt down to 30) - Trend as outpatient in 1 week. Rhabdomyolysis - very mild - resolved Type 2 Diabetes mellitus - new diagnosis, HbA1C 7.1 - Start metformin 500mg PO daily - insulin sliding scale while in hospital Elevated Troponin - Transient elevation at 0.06, has come down to 0.03 - Not ACS - no chest pain Acute Kidney Injury - resolved Transaminitis with Fatty Liver with Cirrhosis - Negative Viral Hepatitis Panel - trend is down, repeat as outpatient in 1 week Major Depressive Disorder - Psych liaison contacted and will get involved with treatment after withdrawal is compete. Follow up with PCP. Will hold off trazodone at present given lower seizure threshold. DVT - SCDs - Hold pharmacological prophylaxis given suspected bleed and thrombocytopenia Code Status - Full Resuscitation Disposition - Medically stable for discharge. Plan home later this afternoon.
[2017-11-30 11:12] VITALS: BP 123/89; PULSE 76; TEMP 36.6; O2SAT 100
--- NOTE | 2017-11-30 14:40 | Discharge Summary ---
Discharge Summary Date of Service Nov 30, 2017. Discharge Summary Admission Date: Nov 27, 2017 at 02:04 Discharge Date: Nov 29, 2017 Discharge Disposition: Home Principal Diagnosis: Hematemesis, alcohol intoxication Problems/Secondary Diagnoses: (1) Alcohol use disorder Status: Chronic (2) Alcoholism Status: Chronic (3) Anxiety Status: Chronic (4) Anxiety Status: Chronic (5) Depression Status: Chronic (6) Neuropathy Status: Chronic (7) Psoriasis Status: Chronic Consultations: Gastroenterology Medication Reconciliation New Medications: Metformin Hcl (Glucophage) 500 Mg Tab 500 MG PO UD for 21 Days, #42 TAB 1 tab daily for 1 week then 1 tab BID for 1 week then 2 tabs QAM and 1 tab QPM for 1 week Pantoprazole (Protonix) 40 Mg Tab 40 MG PO DAILY, #14 TAB Folic Acid (Folic Acid) 1 Mg Tab 1 MG PO QAM for 30 Days, #30 TAB Thiamine HCl (Vitamin B-1) 100 Mg Tab 100 MG PO QAM for 30 Days, #30 TAB Continued Medications: Bismuth Subsalicylate (Pepto-Bismol) 262 Mg/15 Ml Leonela 15 ML PO TID PRN for GI Upset Gabapentin (Gabapentin) 100 Mg Cap 300 MG PO TID Hydroxyzine Pamoate (Vistaril) 25 Mg Cap 1 CAP PO TID PRN for Anxiety for 30 Days, #90 CAP Discharge Exam please see note from 11/30/17 Hospital Course 51 year old female with chronic alcoholism, who presents with suspected GI bleed. Hgb stable without intervention. Alcohol 333 on admission. Refused inpatient rehabilitation. [facility] Upper GI Bleed/ Hematemesis - Per GI, unlikely upper GI bleed or if so likely self-limited. Endoscopy has been deferred. Source not definite - In the setting of EtOH abuse, would highly suspect gastritis - No new episodes of vomiting, or melena - Continue pantoprazole 40 mg PO daily for 14 days and follow up with primary care provider Chronic Alcoholism/ Alcohol withdrawal, with previous Hx of DTs - Ethyl Alcohol 333.4 on arrival - Thiamine 100mg; stop Folic Acid due to elevated levels; Multivitamin daily - no signs of withdrawal on discharge. Outpatient rehabilitation information given. Hypokalemia - replace as needed, recommend repeat as outpatient in 1 week Thrombocytopenia - 66 today - secondary to alcohol, continue to trend as outpatient (occurred on previous admission plt down to 30) - Trend is up. Recommend repeating in 1 week after discharge Rhabdomyolysis - very mild - resolved. No follow up labs required Type 2 Diabetes mellitus - new diagnosis, HbA1C 7.1 - Start metformin 500mg PO daily and up titrate as outpatient - insulin sliding scale while in hospital, now stopped Elevated Troponin - Transient elevation at 0.06, has come down to 0.03 - Not ACS - no chest pain Acute Kidney Injury - resolved Transaminitis with Fatty Liver with sign of early cirrhosis on US - Negative Viral Hepatitis Panel - trend is down, repeat as outpatient in 1 week Major Depressive Disorder - Psych liaison contacted and will get involved with treatment after withdrawal is compete. Follow up with PCP. Will hold off trazodone at present given lower seizure threshold. Total Time Spent: Less than 30 minutes This includes examination of the patient, discharge planning, medication reconciliation, and communication with other providers. Discharge Instructions Please refer to the electronic Patient Visit Report (Discharge Instructions) for additional information. Follow-Up PCP within the next week. Additional Copies To RV. Mobley MD
[2017-11-30] MEDS ORDERED: NRN300 PO (15:11)
[2017-11-30] MEDS ORDERED: NAPR1TAB9 PO (15:11)
--- NOTE | 2017-12-09 06:47 | History and Physical ---
History & Physical Date & Time of Service: Dec 09, 2017 at 06:45 Chief Complaint: Alcohol Use Disorder, Hematemesis Without Nausea Primary Care Physician: RV. Mobley MD History of Present Illness Source: patient, hospital records The patient was admitted by communication from emergency department staff to ICU staff for alcohol use disorder and withdrawal. Family History FH: cancer FH: heart disease Hypertension Social History Smoking Status: Current Every Day Smoker Smokeless Tobacco Use: No Alcohol Use: heavy Drug Use: none Marital Status: Housing status: lives alone Occupational Status: unemployed Allergies Coded Allergies: No Known Allergies (Unverified , 06/14/17) Home Medications Scheduled Gabapentin (Gabapentin), 300 MG PO TID Metformin Hcl (Glucophage), 500 MG PO UD Pantoprazole (Protonix), 40 MG PO DAILY Thiamine HCl (Vitamin B-1), 100 MG PO QAM Scheduled PRN Bismuth Subsalicylate (Pepto-Bismol), 15 ML PO TID PRN for GI Upset Hydroxyzine Pamoate (Vistaril), 1 CAP PO TID PRN for Anxiety Naproxen (Aleve), 220 MG PO BID PRN for Pain Physical Exam Performed by the emergency department staff and ICU staff. Impression Assessment and Plan The patient was admitted a direct communication from the emergency department staff to ICU staff. Complete care of the patient was undertaken by ICU staff. Consultation by ICU ISSA De Santiago will serve as H&P. Advanced Directives Existing Advance Directive: No Existing Living Will: No Existing Power of Handle Sewer: No Resuscitation Status VTE Prophylaxis Will order VTE Prophylaxis: Yes
== END 2017-11-30 15:36 | disposition home or self-care (01) | DRG 896 ==
LOC: EDBD 00:03 → C.EDB 00:05 → C.MSICU 02:04 → ENRESERV 02:09 → C.4E 11-28 18:07
PROVIDERS: ADMIT Hospitalist; ATTEND Family Medicine
DX: F10.239 Alcohol dependence with withdrawal, unspecified (principal); K29.21 Alcoholic gastritis with bleeding; J69.0 Pneumonitis due to inhalation of food and vomit; N17.9 Acute kidney failure, unspecified; E87.2 Acidosis; K92.0 Hematemesis; F33.9 Major depressive disorder, recurrent, unspecified; M62.82 Rhabdomyolysis; E11.9 Type 2 diabetes mellitus without complications; E03.9 Hypothyroidism, unspecified; F41.9 Anxiety disorder, unspecified; F17.200 Nicotine dependence, unspecified, uncomplicated; L40.9 Psoriasis, unspecified; E86.0 Dehydration; E87.5 Hyperkalemia; Y90.8 Blood alcohol level of 240 mg/100 ml or more; E87.6 Hypokalemia; E87.8 Other disorders of electrolyte and fluid balance, not elsewhere classified; D69.6 Thrombocytopenia, unspecified; R74.0 Nonspecific elevation of levels of transaminase and lactic acid dehydrogenase [LDH]; Z80.9 Family history of malignant neoplasm, unspecified; Z82.49 Family history of ischemic heart disease and other diseases of the circulatory system

== ENCOUNTER 2018-02-11 10:32 | Inpatient (IN) | payer OTHER ==
[~2018-02-11] VITALS: Ht 167.6 cm; Wt 66.8 kg
[~2018-02-11 10:32] MED LIST changes: +BISM262S7 PO; -DSY50 PO; +HYDR25CA PO; -NRN100 PO; +NRN300 PO; +PANT40TA PO; +THM100 PO
[2018-02-11] MEDS ORDERED: MULTI-VITAMIN INFUSION INJ 10 ML, THIAMINE HCL INJ 100 MG, FoLIC ACID INJ 1 MG in SODIU... IV STA (10:52)
--- NOTE | 2018-02-11 10:52 | EMERGENCY ROOM VISIT NOTE ---
History Report prepared by Eliot: Ky Alexander Under the Supervision of: Dr. Patrice Becerra M.D. First contact with patient: 10:47 Chief Complaint: LETHARGIC Stated Complaint: MENTAL HEALTH History of Present Illness This HPI is limited due to the altered mental status. The patient is a 52 year old female who presents to the Emergency Room with concerns over her mental status. Per hospital nursing staff, the patient's mother states that she has not eaten in over 3 days. The mother is concerned about the patient's depression. She is currently on house arrest, and the mother found the patient with an empty bottle of alcohol this morning. The patient makes no complaints of pain at this time. Source of History: EMS, nursing staff History Limited By: AMS Position: head Quality: other (AMS) Review of Systems See HPI for pertinent positives & negatives. A total of 10 systems reviewed and were otherwise negative. Past Medical & Surgical Medical Problems: (1) Alcohol use disorder (2) Alcohol withdrawal (3) Alcohol withdrawal seizure (4) Alcoholism (5) Anxiety (6) Anxiety (7) Depression (8) Hematemesis without nausea (9) Hypothyroidism (10) Major depressive disorder, recurrent episode with anxious distress (11) Neuropathy (12) Nicotine dependence (13) Psoriasis (14) Suicidal ideation (15) Urinary tract infection (16) Vitamin D deficiency Family History FH: cancer FH: heart disease Hypertension Social History Smoking Status: Current Every Day Smoker Alcohol Use: heavy Drug Use: none Marital Status: Housing Status: lives with family Occupation Status: unemployed Current/Historical Medications Scheduled B-Complex Vitamins (Vitamin B Complex), 1 TAB PO DAILY Duloxetine Hcl (Cymbalta), 60 MG PO DAILY Folic Acid (Folic Acid), 1 MG PO DAILY Gabapentin (Neurontin), 300 MG PO TID Metformin HCl (Metformin HCl), 500 MG PO BID Pancrelipase (Lipase-Protease- (Zenpep), 1 CAP PO TIDM Pantoprazole (Protonix), 40 MG PO DAILY Scheduled PRN Hydroxyzine Pamoate (Vistaril), 50 MG PO BID PRN for Anxiety Allergies Coded Allergies: No Known Allergies (Unverified , 02/11/18) Physical Exam Vital Signs Date Time Temp Pulse Resp B/P (MAP) Pulse Ox O2 Delivery O2 Flow Rate FiO2 02/11/18 16:00 110 16 147/101 95 Room Air 02/11/18 14:18 97 16 127/74 95 Room Air 02/11/18 13:26 105 02/11/18 11:00 96 Room Air 02/11/18 10:46 36.9 93 18 119/93 98 Room Air 02/11/18 10:45 93 Physical Exam GENERAL: Awake, alert, well-appearing, in no acute distress HENT: Normocephalic, atraumatic. Oropharynx unremarkable. EYES: Normal conjunctiva. Sclera non-icteric. NECK: Supple. No nuchal rigidity. FROM. No JVD. RESPIRATORY: Clear to auscultation. CARDIAC: Regular rate, normal rhythm. Extremities warm and well perfused. Pulses equal. ABDOMEN: Soft, non-distended. No tenderness to palpation. No rebound or guarding. No masses. RECTAL: Deferred. MUSCULOSKELETAL: Chest examination reveals no tenderness. The back is symmetrical on inspection without obvious abnormality. There is no CVA tenderness to palpation. No joint edema. LOWER EXTREMITIES: Calves are equal size bilaterally and non-tender. No edema. No discoloration. NEURO: Normal sensorium. No sensory or motor deficits noted. SKIN: No rash or jaundice noted. Medical Decision & Procedures ER Provider Diagnostic Interpretation: Radiology results as stated below per my review and radiologist interpretation: CHEST ONE VIEW PORTABLE CLINICAL HISTORY: Pt c/o AMS dyspnea COMPARISON STUDY: 11/29/2017 FINDINGS: The bones soft tissues and hemidiaphragms are normal. The cardiomediastinal silhouette is normal. The lungs are clear. The pulmonary vasculature is normal. IMPRESSION: Negative chest. The above report was generated using voice recognition software. It may contain grammatical, syntax or spelling errors. Electronically signed by: Jalen Farah M.D. 02/11/2018 11:30 AM Dictated Date/Time: 02/11/2018 11:29 AM L HAND MIN 3 VIEWS ROUTINE HISTORY: 52 years-old Female Pt c/o left hand pain acute left hand pain COMPARISON: None available TECHNIQUE: 3 views of the left hand FINDINGS: The bones appear mildly demineralized. Corticated bone fragment measuring 5 mm is seen within the expected region of the ulnar styloid suggesting healed remote fracture. There is mild radiocarpal with mild to moderate triscaphe and first carpometacarpal osteoarthritis. Mild degenerative changes are seen throughout the metacarpophalangeal and interphalangeal joints. There is no acute fracture, dislocation or opaque foreign body. Mildly diminutive size of the fifth middle phalanx incidentally noted. IMPRESSION: 1. No acute fracture or dislocation. 2. Degenerative changes as above. The above report was generated using voice recognition software. It may contain grammatical, syntax or spelling errors. Electronically signed by: Joseph Rich M.D. 02/11/2018 11:18 AM Dictated Date/Time: 02/11/2018 11:16 AM Laboratory Results 02/11/18 11:15 Red Blood Count 5.47, Mean Corpuscular Volume 87.8, Mean Corpuscular Hemoglobin 30.5, Mean Corpuscular Hemoglobin Concent 34.8, Mean Platelet Volume 8.9, Neutrophils (%) (Auto) 50.3, Lymphocytes (%) (Auto) 40.7, Monocytes (%) (Auto) 3.6, Eosinophils (%) (Auto) 4.3, Basophils (%) (Auto) 0.9, Neutrophils # (Auto) 2.21, Lymphocytes # (Auto) 1.79, Monocytes # (Auto) 0.16, Eosinophils # (Auto) 0.19, Basophils # (Auto) 0.04 Test 02/11/18 00:00 02/11/18 11:15 02/11/18 16:11 Urine Color DK YELLOW Urine Appearance CLEAR (CLEAR) Urine pH 6.5 (4.5-7.5) Urine Specific [place] 1.025 (1.000-1.030) Urine Protein 2+ (NEG) Urine Glucose (UA) NEG (NEG) Urine Ketones 1+ (NEG) Urine Occult Blood NEG (NEG) Urine Nitrite NEG (NEG) Urine Bilirubin NEG (NEG) Urine Urobilinogen NEG (NEG) Urine Leukocyte Esterase NEG (NEG) Urine WBC (Auto) 1-5 /hpf (0-5) Urine RBC (Auto) 0-4 /hpf (0-4) Urine Hyaline Casts (Auto) 1-5 /lpf (0-5) Urine Epithelial Cells (Auto) >30 /lpf (0-5) Urine Bacteria (Auto) NEG (NEG) Urine Opiates Screen NEG (NEG) Urine Methadone, Qualitative NEG (NEG) Urine Barbiturates NEG (NEG) Urine Phencyclidine (PCP) Level NEG (NEG) Ur Amphetamine/Methamphetamine NEG (NEG) MDMA (Ecstasy) Screen NEG (NEG) Urine Benzodiazepines Screen NEG (NEG) Urine Cocaine Metabolite NEG (NEG) Urine Marijuana (THC) NEG (NEG) White Blood Count 4.40 K/uL (4.8-10.8) Red Blood Count 5.47 M/uL (4.2-5.4) Hemoglobin 16.7 g/dL (12.0-16.0) Hematocrit 48.0 % (37-47) Mean Corpuscular Volume 87.8 fL (80-100) Mean Corpuscular Hemoglobin 30.5 pg (25-34) Mean Corpuscular Hemoglobin Concent 34.8 g/dl (32-36) Platelet Count 164 K/uL (130-400) Mean Platelet Volume 8.9 fL (7.4-10.4) Neutrophils (%) (Auto) 50.3 % Lymphocytes (%) (Auto) 40.7 % Monocytes (%) (Auto) 3.6 % Eosinophils (%) (Auto) 4.3 % Basophils (%) (Auto) 0.9 % Neutrophils # (Auto) 2.21 K/uL (1.4-6.5) Lymphocytes # (Auto) 1.79 K/uL (1.2-3.4) Monocytes # (Auto) 0.16 K/uL (0.11-0.59) Eosinophils # (Auto) 0.19 K/uL (0-0.5) Basophils # (Auto) 0.04 K/uL (0-0.2) RDW Standard Deviation 54.4 fL (36.4-46.3) RDW Coefficient of Variation 16.8 % (11.5-14.5) Immature Granulocyte % (Auto) 0.2 % Immature Granulocyte # (Auto) 0.01 K/uL (0.00-0.02) Prothrombin Time 10.0 SECONDS (9.0-12.0) Prothromb Time International Ratio 1.0 (0.9-1.1) Activated Partial Thromboplast Time 25.7 SECONDS (21.0-31.0) Partial Thromboplastin Ratio 1.0 Total Bilirubin 0.4 mg/dl (0.2-1) Direct Bilirubin 0.1 mg/dl (0-0.2) Aspartate Amino Transf (AST/SGOT) 38 U/L (15-37) Alanine Aminotransferase (ALT/SGPT) 29 U/L (12-78) Alkaline Phosphatase 120 U/L (45-117) Total Creatine Kinase 65 U/L (26-192) Total Protein 8.6 gm/dl (6.4-8.2) Albumin 4.5 gm/dl (3.4-5.0) Lipase 45 U/L (73-393) Salicylates Level 3.4 mg/dl (2.8-20) Acetaminophen Level < 2 ug/ml (10-30) Ethyl Alcohol mg/dL 265.0 mg/dl (0-3) Labs reviewed by ED physician. Medications Administered Medications (Trade) Dose Ordered Sig/Gisselle Route Start Time Stop Time Status Last Admin Dose Admin Multivitamins 10 ml/Thiamine HCl 100 mg/Folic Acid 1 mg/Sodium Chloride 1,011.2 ml @ 500 mls/ hr Q2H2M STAT IV 02/11/18 10:52 02/11/18 12:53 DC 02/11/18 12:03 500 MLS/HR Clonidine HCl (Teoevpxh-Iml-7 0.1mg/24hr Patch) 1 patch NOW STAT TD 02/11/18 10:59 02/11/18 11:00 DC 02/11/18 12:03 1 PATCH Thiamine HCl (Vitamin B-1 Inj) 100 mg NOW STAT IM 02/11/18 14:31 02/11/18 15:15 DC 02/11/18 16:32 100 MG Acetaminophen (Tylenol Tab) 650 mg Q4H PRN PO 02/11/18 14:45 03/13/18 14:44 02/12/18 07:35 650 MG Al Hydrox/Mg Hydrox/Simethicone (Maalox Max Susp) 15 ml Q4H PRN PO 02/11/18 14:45 03/13/18 14:44 02/12/18 10:25 15 ML Ondansetron HCl (Zofran Inj) 4 mg Q6H PRN IV 02/11/18 14:45 03/13/18 14:44 02/12/18 07:43 4 MG Lorazepam (Ativan Inj) 1 mg Q2H PRN IV 02/11/18 14:45 03/13/18 14:44 02/12/18 10:26 1 MG Lorazepam 1 mg/ Syringe 1 ml @ 1 mls/min Q2H PRN IV 02/11/18 16:15 03/13/18 16:14 02/12/18 01:54 1 MLS/MIN ECG Per My Interpretation Indication: altered mental status Rate (beats per minute): 95 Rhythm: normal sinus Findings: other (Normal axis, No RAMON/STD) ED Course 1049: Past medical records reviewed. The patient was evaluated in room A4B. A complete history and physical examination was performed. 1052: Ordered Banana Bad 1011.2 mL IV 1059: Ordered Clonidine HCl 1 patch TD. 1325: Dr. Alireza Leyva was made aware of the patient for admission. Medical Decision Differential diagnosis: Etiologies such as mood disorder, infection, hypoglycemia, electrolyte abnormalities, cardiac sources, intracerebral event, toxicologic, neurologic, as well as others were entertained. This is a 52-year-old female who presents the emergency department complaining of altered mental status. The patient's mother believes that the patient was try to kill herself with alcohol this morning. She was found to have an alcohol level of over 400. For this reason the patient was given a banana bag. As this patient has a history of acute alcohol withdrawal with seizures she was placed on a clonidine patch and discussed with the hospitalist service. Mother was in agreement with the treatment plan. Medication Reconcilliation Current Medication List: was personally reviewed by me Blood Pressure Screening Patient's blood pressure: Normal blood pressure Consults Consulting Physician: Dr. Le[place] [facility] [place]. Alireza Leyva was made aware of the patient for admission. Impression Primary Impression: Alcohol abuse Scribe Attestation The scribe's documentation has been prepared under my direction and personally reviewed by me in its entirety. I confirm that the note above accurately reflects all work, treatment, procedures, and medical decision making performed by me. Departure Information Dispostion Being Evaluated By Hospitalist RV. Gonzalez MD (PCP) Patient Instructions [facility]
[2018-02-11] MEDS ORDERED: HYDR50CA2 PO (10:55)
[2018-02-11] MEDS ORDERED: FLV1 PO (10:55)
[2018-02-11] MEDS ORDERED: DULO60CA44 PO (10:55)
[2018-02-11] MEDS ORDERED: B-COTAB18 PO (10:55)
[2018-02-11] MEDS ORDERED: GABA-1218 PO (10:55)
[2018-02-11] MEDS ORDERED: PANC1CAP16 PO (10:55)
[2018-02-11] MEDS ORDERED: GLC500 PO (10:55)
[2018-02-11] MEDS ORDERED: PANT40TA PO (10:55)
[2018-02-11] MEDS ORDERED: CLONIDINE HCL 0.1 MG/24 HR TRANSDERM SYS TD STA (10:59)
--- NOTE | 2018-02-11 11:19 | DIAGNOSTIC IMAGING REPORT ---
L HAND MIN 3 VIEWS ROUTINE HISTORY: 52 years-old Female Pt c/o left hand pain acute left hand pain COMPARISON: None available TECHNIQUE: 3 views of the left hand FINDINGS: The bones appear mildly demineralized. Corticated bone fragment measuring 5 mm is seen within the expected region of the ulnar styloid suggesting healed remote fracture. There is mild radiocarpal with mild to moderate triscaphe and first carpometacarpal osteoarthritis. Mild degenerative changes are seen throughout the metacarpophalangeal and interphalangeal joints. There is no acute fracture, dislocation or opaque foreign body. Mildly diminutive size of the fifth middle phalanx incidentally noted. IMPRESSION: 1. No acute fracture or dislocation. 2. Degenerative changes as above. The above report was generated using voice recognition software. It may contain grammatical, syntax or spelling errors. Electronically signed by: Joseph Rich M.D. 02/11/2018 11:18 AM Dictated Date/Time: 02/11/2018 11:16 AM
--- NOTE | 2018-02-11 11:31 | DIAGNOSTIC IMAGING REPORT ---
CHEST ONE VIEW PORTABLE CLINICAL HISTORY: Pt c/o AMS dyspnea COMPARISON STUDY: 11/29/2017 FINDINGS: The bones soft tissues and hemidiaphragms are normal. The cardiomediastinal silhouette is normal. The lungs are clear. The pulmonary vasculature is normal. IMPRESSION: Negative chest. The above report was generated using voice recognition software. It may contain grammatical, syntax or spelling errors. Electronically signed by: Jalen Farah M.D. 02/11/2018 11:30 AM Dictated Date/Time: 02/11/2018 11:29 AM
[2018-02-11 11:34] LABS: BASO % 0.9 %; BASO ABS # 0.04 K/uL (0-0.2); EOS % 4.3 %; EOS ABS # 0.19 K/uL (0-0.5); HEMOGLOBIN 16.7 g/dL (12.0-16.0); IG# 0.01 K/uL (0.00-0.02); LYMPH % 40.7 %; LYMPH ABS # 1.79 K/uL (1.2-3.4); MEAN CELL VOLUME 87.8 fL (80-100); MEAN CORPUSCULAR HEMOGLOBIN 30.5 pg (25-34); MEAN CORPUSCULAR HGB CONC 34.8 g/dl (32-36); MEAN PLATELET VOLUME 8.9 fL (7.4-10.4); MONO % 3.6 %; MONO ABS # 0.16 K/uL (0.11-0.59); NEUT % 50.3 %; NEUT ABS # 2.21 K/uL (1.4-6.5); PLATELET COUNT 164 K/uL (130-400); RED CELL DISTRIBUTION WIDTH CV 16.8 % (11.5-14.5); RED CELL DISTRIBUTION WIDTH SD 54.4 fL (36.4-46.3)
[2018-02-11 11:44] LABS: PTT PATIENT 25.7 SECONDS (21.0-31.0)
[2018-02-11 12:00] LABS: ALBUMIN 4.5 gm/dl (3.4-5.0); CREATININE 0.92 mg/dl (0.60-1.20)
[2018-02-11 12:03] LABS: TOTAL PROTEIN 8.6 gm/dl (6.4-8.2)
--- NOTE | 2018-02-11 13:00 | DIAGNOSTIC IMAGING REPORT ---
HEAD CT NONCONTRAST CT DOSE: 537.48 mGy.cm HISTORY: Altered mental status. TECHNIQUE: Multiaxial CT images of the head were performed without the use of intravenous contrast. Automated exposure control was utilized for this study. A dose lowering technique was utilized adhering to the principles of ALARA. Comparison: Head CT 06/26/2017. Findings: A few scattered small dural calcifications remain unchanged. This is of doubtful clinical significance. The paranasal sinuses and mastoid air cells are clear. The calvarium and skull base are intact. There is a 2 cm focus of encephalomalacia within the right temporal lobe on image 8. This is similar to the prior study and likely represents sequela of an old infarct or old trauma. There is no mass, hematoma, midline shift, or acute infarct. Impression: No significant change compared to the prior study. No acute intracranial abnormality. Electronically signed by: Delano Murry M.D. 02/11/2018 12:59 PM Dictated Date/Time: 02/11/2018 12:53 PM
[2018-02-11] MEDS ORDERED: THIAMINE HCL 100 MG/ML 2 ML VIAL IM STA (14:31)
[2018-02-11] MEDS ORDERED: POLYETHYLENE (MIRALAX) 17 GM PACK PO PRN (14:45)
[2018-02-11] MEDS ORDERED: MAGNESIUM HYDROXIDE SUSP 30 ML UDC PO PRN (14:45)
[2018-02-11] MEDS ORDERED: ALUMINUM/MAGNESIUM/SIMETH (MAALOX MAX) 30 ML UDC PO PRN (14:45)
[2018-02-11] MEDS ORDERED: LORAZEPAM 2 MG/ML 1 ML VIAL IV PRN (14:45)
--- NOTE | 2018-02-11 15:28 | History and Physical ---
History & Physical Date & Time of Service: February 11, 2018 at 15:27 Chief Complaint: Mental Health Primary Care Physician: RV. Mobley MD History of Present Illness Source: patient 51 y/o F extensive Hx of ETOH abuse, withdrawal seizures, neuropathy, uterine CA , pancreatic insufficiency, possibly hep C, DM II. She has been admitted multiple times for alcohol intoxication. She presents via EMS as she was found essentially unconscious by her mother. She was lying on the floor next to an empty bottle of an unspecified alcoholic beverage. Her mother states that she believes that the pt was attempting suicide by alcohol, however, the pt herself regained her mentation after a few hours in the ER and denies any suicidal ideation. She has vomited a few times in the ER. She denies additional symptoms of CP, SOB, dysuria, KEENE or fever. No abnormalities are noted on initial labs aside form an alcohol level 450. Past Medical/Surgical History 1) ETOH dependence and abuse 2) Pancreatic insufficiency 3) DM II 4) Alcohol withdrawal seizures 5) Major depressive disorder 6) Hepatitis C 7) Uterine CA Family History FH: cancer FH: heart disease Hypertension Mother with history of alcoholism Social History Smokes 10 cigarettes daily Drinks excessive quantities of alcohol daily Smoking Status: Current Every Day Smoker Drug Use: none Marital Status: Housing status: lives alone Occupational Status: unemployed Allergies Coded Allergies: No Known Allergies (Unverified , 02/11/18) Home Medications Scheduled B-Complex Vitamins (Vitamin B Complex), 1 TAB PO DAILY Duloxetine Hcl (Cymbalta), 60 MG PO DAILY Folic Acid (Folic Acid), 1 MG PO DAILY Gabapentin (Neurontin), 300 MG PO TID Metformin HCl (Metformin HCl), 500 MG PO BID Pancrelipase (Lipase-Protease- (Zenpep), 1 CAP PO TIDM Pantoprazole (Protonix), 40 MG PO DAILY Scheduled PRN Hydroxyzine Pamoate (Vistaril), 50 MG PO BID PRN for Anxiety Review of Systems Constitutional: No fever, No chills, No sweats Eyes: No worsening of vision ENT: No hearing loss, No unusual epistaxis, No nasal symptoms Respiratory: No cough, No wheezing Cardiovascular: No chest pain, No orthopnea, No PND Abdomen: No pain, No vomiting Musculoskeletal: No joint pain Genitourinary - Female: No dysuria, No urinary frequency, No urinary urgency Neurologic: + problem reported (Poorly responsive on arrival to the ER) Psychiatric: + depression symptoms Endocrine: No fatigue Hematologic / Lymphatic: No abnormal bleeding/bruising Integumentary: No rash Allergic / Immunologic: No environmental allergies Physical Exam Vital Signs Date Time Temp Pulse Resp B/P (MAP) Pulse Ox O2 Delivery O2 Flow Rate FiO2 02/11/18 14:18 97 16 127/74 95 Room Air 02/11/18 13:26 105 02/11/18 11:00 96 Room Air 02/11/18 10:46 36.9 93 18 119/93 98 Room Air 02/11/18 10:45 93 General Appearance: WD/WN, no apparent distress, + pertinent finding (Slightly tremerous, middle-aged F - cooperative) Head: normocephalic Eyes: normal inspection ENT: normal ENT inspection, pharynx normal Neck: supple, no JVD Respiratory/Chest: chest non-tender, lungs clear, normal breath sounds Cardiovascular: regular rate, rhythm, no edema, no gallop Abdomen/GI: normal bowel sounds, non tender, soft Back: normal inspection, no CVA tenderness Extremities/Musculoskelatal: normal inspection, no calf tenderness, normal capillary refill Neurologic/Psych: game artist II-XII nml as tested, no motor/sensory deficits, alert Skin: normal color Diagnostics Laboratory Results Results Past 24 Hours Test 02/11/18 10:52 02/11/18 11:15 Range/Units White Blood Count 4.40 4.8-10.8 K/uL Red Blood Count 5.47 4.2-5.4 M/uL Hemoglobin 16.7 12.0-16.0 g/dL Hematocrit 48.0 37-47 % Mean Corpuscular Volume 87.8 80-100 fL Mean Corpuscular Hemoglobin 30.5 25-34 pg Mean Corpuscular Hemoglobin Concent 34.8 32-36 g/dl Platelet Count 164 130-400 K/uL Mean Platelet Volume 8.9 7.4-10.4 fL Neutrophils (%) (Auto) 50.3 % Lymphocytes (%) (Auto) 40.7 % Monocytes (%) (Auto) 3.6 % Eosinophils (%) (Auto) 4.3 % Basophils (%) (Auto) 0.9 % Neutrophils # (Auto) 2.21 1.4-6.5 K/uL Lymphocytes # (Auto) 1.79 1.2-3.4 K/uL Monocytes # (Auto) 0.16 0.11-0.59 K/uL Eosinophils # (Auto) 0.19 0-0.5 K/uL Basophils # (Auto) 0.04 0-0.2 K/uL RDW Standard Deviation 54.4 36.4-46.3 fL RDW Coefficient of Variation 16.8 11.5-14.5 % Immature Granulocyte % (Auto) 0.2 % Immature Granulocyte # (Auto) 0.01 0.00-0.02 K/uL Prothrombin Time 10.0 9.0-12.0 SECONDS Prothromb Time International Ratio 1.0 0.9-1.1 Activated Partial Thromboplast Time 25.7 21.0-31.0 SECONDS Partial Thromboplastin Ratio 1.0 Sodium Level 140 136-145 mmol/L Potassium Level 4.0 3.5-5.1 mmol/L Chloride Level 99 98-107 mmol/L Carbon Dioxide Level 32 21-32 mmol/L Anion Gap 9.0 3-11 mmol/L Blood Urea Nitrogen 10 7-18 mg/dl Creatinine 0.92 0.60-1.20 mg/dl Est Creatinine Clear Calc Drug Dose 66.9 ml/min Estimated GFR () 83.0 Estimated GFR (Non- 71.6 BUN/Creatinine Ratio 10.6 10-20 Random Glucose 109 70-99 mg/dl Calcium Level 9.0 8.5-10.1 mg/dl Total Bilirubin 0.4 0.2-1 mg/dl Direct Bilirubin 0.1 0-0.2 mg/dl Aspartate Amino Transf (AST/SGOT) 38 15-37 U/L Alanine Aminotransferase (ALT/SGPT) 29 12-78 U/L Alkaline Phosphatase 120 45-117 U/L Total Creatine Kinase 65 26-192 U/L Total Protein 8.6 6.4-8.2 gm/dl Albumin 4.5 3.4-5.0 gm/dl Lipase 45 73-393 U/L Salicylates Level 3.4 2.8-20 mg/dl Acetaminophen Level < 2 10-30 ug/ml Ethyl Alcohol mg/dL 449.1 0-3 mg/dl Impression Assessment and Plan 51 y/o F extensive Hx of ETOH abuse, withdrawal seizures, neuropathy, uterine CA , pancreatic insufficiency, possibly hep C, DM II. She has been admitted multiple times for alcohol intoxication. She presents via EMS as she was found essentially unconscious by her mother. She was lying on the floor next to an empty bottle of an unspecified alcoholic beverage. Her mother states that she believes that the pt was attempting suicide by alcohol, however, the pt herself regained her mentation after a few hours in the ER and denies any suicidal ideation. She has vomited a few times in the ER. She denies additional symptoms of CP, SOB, dysuria, KEENE or fever. No abnormalities are noted on initial labs aside form an alcohol level of 450. 1) Alcohol intoxication - the pt is AAO x 3 and we are currently pending a mental health eval and a repeat ETOH level. The pt does not want to be hospitalized and is not interested in rehab. Should she remain we will provided aggresive IVF, thiamine, folate, PO Librium and IV Ativan as needed for withdrawal. 2) DM - placed on SS only as she is at risk of hypoglycemia 3) Pancreatic insufficiency - cont supplemental enzymes with meals 4) Neuropathy - cont Gabapentin, Cymbalta Full code - SCDs Total time for this admit including review of labs, meds, imaging, records - discussion with pt and ER attending - 36 min Resuscitation Status VTE Prophylaxis Will order VTE Prophylaxis: Yes Reason no Mechanical VTE Order: Treatment not indicated
[2018-02-11] MEDS ORDERED: GLUCOSE 40% GEL 15 GM TUBE PO PRN (16:15)
[2018-02-11] MEDS ORDERED: LORAZEPAM INJ 1 MG in SYRINGE 0.5 ML IV PRN (16:15)
[2018-02-11] MEDS ORDERED: LORAZEPAM INJ 2 MG in SYRINGE 1 ML IV PRN (16:15)
[2018-02-11] MEDS ORDERED: GLUCOSE 10 TABS/TUBE PO PRN (16:15)
[2018-02-11] MEDS ORDERED: CARBOHYDRATES FOR HYPOGLYCEMIA PO PRN (16:15)
[2018-02-11] MEDS ORDERED: DEXTROSE 50% 50 ML SYR IV PRN (16:15)
[2018-02-11] MEDS ORDERED: GLUCAGON FOR INJ 1 MG VIAL IM PRN (16:15)
[2018-02-11] MEDS: LORAZEPAM 2 MG/ML 1 ML VIAL IV PRN ×2 (16:16→20:05)
[2018-02-11] MEDS: ONDANSETRON INJ 2 MG/ML 2 ML VIAL IV PRN (16:16)
[2018-02-11] MEDS ORDERED: IV FLUIDS COMPLETED PRN (17:00)
[2018-02-11] MEDS ORDERED: CHLORDIAZEPOXIDE 25 MG CAP PO ONE (17:15)
[2018-02-11 17:40] VITALS: BP 142/84; PULSE 93; TEMP 37.6; O2SAT 96; BMI 21.0
[2018-02-11] MEDS: NSS + 20MEQ KCL 1000ML 1,000 ML IV SCH (18:33)
[2018-02-11] MEDS: INSULIN ASPART 100 UNITS/ML 3 ML PEN SC SCH ×2 (18:37→23:56)
[2018-02-11 19:25] VITALS: BP 129/90; PULSE 119; O2SAT 95
[2018-02-11 20:00] VITALS: O2SAT 95
[2018-02-11] MEDS: PANCREAZE (LIPASE 10,500U) CAP PO SCH (20:05)
[2018-02-11] MEDS: GABAPENTIN 300 MG CAP PO SCH (20:53)
[2018-02-11] MEDS: CHLORDIAZEPOXIDE 25 MG CAP PO SCH (22:40)
[2018-02-12] VITALS (10 sets, daily range): BP systolic 147–166; BP diastolic 95–108; PULSE 89–105; TEMP 36.7–37.3; O2SAT 92–99; Ht 167.6 cm; Wt 66.8 kg
[2018-02-12] MEDS: NSS + 20MEQ KCL 1000ML 1,000 ML IV SCH (00:40)
[2018-02-12] MEDS: ACETAMINOPHEN 325 MG TAB PO PRN ×2 (01:54→07:35)
[2018-02-12] MEDS: INSULIN ASPART 100 UNITS/ML 3 ML PEN SC SCH ×4 (05:42→22:03)
[2018-02-12 07:07] LABS: CALCIUM 7.8 mg/dl (8.5-10.1); CREATININE 0.77 mg/dl (0.60-1.20); POTASSIUM 3.8 mmol/L (3.5-5.1)
[2018-02-12] MEDS: PANCREAZE (LIPASE 10,500U) CAP PO SCH ×3 (07:34→17:01)
[2018-02-12] MEDS: GABAPENTIN 300 MG CAP PO SCH ×2 (07:36→14:10)
[2018-02-12] MEDS: ONDANSETRON INJ 2 MG/ML 2 ML VIAL IV PRN (07:43)
[2018-02-12] MEDS: DULOXETINE HCL 60 MG CAP PO SCH (08:50)
[2018-02-12] MEDS: PANTOprazole SOD 40 MG TAB PO SCH (08:50)
[2018-02-12] MEDS: CHLORDIAZEPOXIDE 25 MG CAP PO SCH ×3 (08:50→21:18)
[2018-02-12] MEDS: VITAMIN B COMPLEX TAB PO SCH (08:50)
[2018-02-12] MEDS ORDERED: THIAMINE HCL 100 MG/ML 2 ML VIAL IM SCH (09:00)
[2018-02-12] MEDS: FoLIC ACID INJ 1 MG in SYRINGE 9.8 ML IV SCH (09:04)
--- NOTE | 2018-02-12 10:16 | Hospitalist Progress Note ---
Hospitalist Progress Note Date of Service February 12, 2018. (Pamela Sosa ., UBALDO) Subjective Pt evaluation today including: conversation w/ patient, physical exam, chart review, lab review, conversation w/ senior telecommunications consultant (Dr. Frances from psych), review of inpatient medication list Voiding: no voiding problems Ms. Chiu is alert and oriented. She denies any tremors. She has been feeling very depressed, going through a divorce and moving in with her mother as well as a number of other stressors. She says that she binge drinks when she is stressed and that she drinks anywhere from a couple glasses to a bottle of wine per day. She denies any suicidal feelings or intent to harm herself. She said she would like to stop drinking. She requests to see mental health and would like to establish outpatient. She has been in an outpatient program for DUI. She also requests to see the outreach educator. She is complaining of painful bilateral lower extremity neuropathy. ROS Constitutional: no chills, aches, sweats or fever Respiratory: no sob,cough, sputum, or wheezing Cardiac: no chest pain, palpitations, edema, orthopnea or lightheadedness GI: no abdominal pain, nausea, vomiting, diarrhea or constipation : no dysuria or hesitancy Extremities: see HPI Skin: no rash All other systems reviewed and negative (Pamela Sosa .UBALDO) Medications Medications Administered Medications (Trade) Dose Ordered Sig/Gisselle Route Start Time Stop Time Status Last Admin Dose Admin Multivitamins 10 ml/Thiamine HCl 100 mg/Folic Acid 1 mg/Sodium Chloride 1,011.2 ml @ 500 mls/ hr Q2H2M STAT IV 02/11/18 10:52 02/11/18 12:53 DC 02/11/18 12:03 500 MLS/HR Clonidine HCl (Qbcedrav-Wii-7 0.1mg/24hr Patch) 1 patch NOW STAT TD 02/11/18 10:59 02/11/18 11:00 DC 02/11/18 12:03 1 PATCH Duloxetine HCl (Cymbalta Cap) 60 mg DAILY PO 02/12/18 09:00 03/14/18 08:59 02/12/18 08:50 60 MG Gabapentin (Neurontin Cap) 300 mg TID PO 02/11/18 21:00 03/13/18 20:59 02/12/18 07:36 300 MG Pantoprazole Sodium (Protonix Tab) 40 mg DAILY PO 02/12/18 09:00 03/14/18 08:59 02/12/18 08:50 40 MG Vitamin B Complex (Vitamin B Complex) 1 tab DAILY PO 02/12/18 09:00 03/14/18 08:59 02/12/18 08:50 1 TAB Amylase/Lipase/ Protease (Pancreaze (Lipase 10,500U) Cap) 1 cap TIDM PO 02/11/18 18:30 03/13/18 18:29 02/12/18 07:34 1 CAP Potassium Chloride/Sodium Chloride 1,000 ml @ 150 mls/hr Q6H40M IV 02/11/18 18:00 02/12/18 07:19 DC 02/12/18 00:40 150 MLS/HR Thiamine HCl (Vitamin B-1 Inj) 100 mg QAM IM 02/12/18 09:00 03/14/18 08:59 02/12/18 08:51 100 MG Thiamine HCl (Vitamin B-1 Inj) 100 mg NOW STAT IM 02/11/18 14:31 02/11/18 15:15 DC 02/11/18 16:32 100 MG Folic Acid 1 mg/ Syringe 10 ml @ 5 mls/min QAM IV 02/12/18 09:00 03/14/18 08:59 02/12/18 09:04 5 MLS/MIN Acetaminophen (Tylenol Tab) 650 mg Q4H PRN PO 02/11/18 14:45 03/13/18 14:44 02/12/18 07:35 650 MG Ondansetron HCl (Zofran Inj) 4 mg Q6H PRN IV 02/11/18 14:45 03/13/18 14:44 02/12/18 07:43 4 MG Lorazepam (Ativan Inj) 1 mg Q2H PRN IV 02/11/18 14:45 03/13/18 14:44 02/11/18 20:05 1 MG Lorazepam 1 mg/ Syringe 1 ml @ 1 mls/min Q2H PRN IV 02/11/18 16:15 03/13/18 16:14 02/12/18 01:54 1 MLS/MIN Chlordiazepoxide (Librium Cap) 25 mg NOW ONCE PO 02/11/18 17:15 02/11/18 17:29 DC 02/11/18 18:33 25 MG Chlordiazepoxide (Librium Cap) 25 mg TID PO 02/11/18 21:00 03/13/18 20:59 02/12/18 08:50 25 MG (Pamela Sosa CRNP) Objective Vital Signs Date Time Temp Pulse Resp B/P (MAP) Pulse Ox O2 Delivery O2 Flow Rate FiO2 02/12/18 07:48 37.1 91 20 147/95 (112) 92 Room Air 02/12/18 04:17 37.0 89 18 154/96 (115) 95 Room Air 02/12/18 04:00 95 Room Air 02/12/18 00:17 37.3 102 18 159/97 (117) 95 Room Air 02/12/18 00:01 95 Room Air 02/11/18 20:00 95 Room Air 02/11/18 19:25 119 16 129/90 (103) 95 Room Air 02/11/18 17:40 37.6 93 20 142/84 96 Room Air 02/11/18 17:17 107 16 156/100 96 02/11/18 16:00 110 16 147/101 95 Room Air 02/11/18 14:18 97 16 127/74 95 Room Air 02/11/18 13:26 105 02/11/18 11:00 96 Room Air 02/11/18 10:46 36.9 93 18 119/93 98 Room Air 02/11/18 10:45 93 (Pamela Sosa CRNP) Physical Exam Notes: General: no distress Eyes: normal inspection, PERLL Respiratory: chest non tender, clear to auscultation, normal breath sounds, no respiratory distress, no accessory muscle use Cardiac: regular rate and rhythm, no rub or gallop, no murmur, no edema, no jvd GI/: active bowel sounds, no abd pain or tenderness, soft, non distended Extremities: normal range of motion, normal strength, non tender Neuro/Psych: alert and oriented x 3, normal mood and affect Skin: normal color, dry, flaking skin over scalp and ears, large soft protrusion over upper spine that is non tender to palpation (Pamela Sosa CRNP) Laboratory Results Last 24 Hours Test 02/11/18 11:15 02/11/18 16:11 02/11/18 18:36 02/11/18 20:31 White Blood Count 4.40 K/uL Red Blood Count 5.47 M/uL Hemoglobin 16.7 g/dL Hematocrit 48.0 % Mean Corpuscular Volume 87.8 fL Mean Corpuscular Hemoglobin 30.5 pg Mean Corpuscular Hemoglobin Concent 34.8 g/dl Platelet Count 164 K/uL Mean Platelet Volume 8.9 fL Neutrophils (%) (Auto) 50.3 % Lymphocytes (%) (Auto) 40.7 % Monocytes (%) (Auto) 3.6 % Eosinophils (%) (Auto) 4.3 % Basophils (%) (Auto) 0.9 % Neutrophils # (Auto) 2.21 K/uL Lymphocytes # (Auto) 1.79 K/uL Monocytes # (Auto) 0.16 K/uL Eosinophils # (Auto) 0.19 K/uL Basophils # (Auto) 0.04 K/uL RDW Standard Deviation 54.4 fL RDW Coefficient of Variation 16.8 % Immature Granulocyte % (Auto) 0.2 % Immature Granulocyte # (Auto) 0.01 K/uL Prothrombin Time 10.0 SECONDS Prothromb Time International Ratio 1.0 Activated Partial Thromboplast Time 25.7 SECONDS Partial Thromboplastin Ratio 1.0 Sodium Level 140 mmol/L Potassium Level 4.0 mmol/L Chloride Level 99 mmol/L Carbon Dioxide Level 32 mmol/L Anion Gap 9.0 mmol/L Blood Urea Nitrogen 10 mg/dl Creatinine 0.92 mg/dl Est Creatinine Clear Calc Drug Dose 66.9 ml/min Estimated GFR () 83.0 Estimated GFR (Non- 71.6 BUN/Creatinine Ratio 10.6 Random Glucose 109 mg/dl Calcium Level 9.0 mg/dl Total Bilirubin 0.4 mg/dl Direct Bilirubin 0.1 mg/dl Aspartate Amino Transf (AST/SGOT) 38 U/L Alanine Aminotransferase (ALT/SGPT) 29 U/L Alkaline Phosphatase 120 U/L Total Creatine Kinase 65 U/L Total Protein 8.6 gm/dl Albumin 4.5 gm/dl Lipase 45 U/L Salicylates Level 3.4 mg/dl Acetaminophen Level < 2 ug/ml Ethyl Alcohol mg/dL 449.1 mg/dl 265.0 mg/dl Bedside Glucose 162 mg/dl 259 mg/dl Test 02/11/18 23:55 02/12/18 05:40 02/12/18 06:01 Bedside Glucose 154 mg/dl 112 mg/dl Sodium Level 140 mmol/L Potassium Level 3.8 mmol/L Chloride Level 103 mmol/L Carbon Dioxide Level 30 mmol/L Anion Gap 7.0 mmol/L Blood Urea Nitrogen 10 mg/dl Creatinine 0.77 mg/dl Est Creatinine Clear Calc Drug Dose 81.4 ml/min Estimated GFR () 102.9 Estimated GFR (Non- 88.8 BUN/Creatinine Ratio 13.3 Random Glucose 105 mg/dl Calcium Level 7.8 mg/dl Magnesium Level 1.9 mg/dl (Pamela Sosa ., UBALDO) Assessment and Plan 51 y/o F extensive Hx of ETOH abuse, withdrawal seizures, neuropathy, uterine CA , pancreatic insufficiency, possibly hep C, DM II. She has been admitted multiple times for alcohol intoxication. She presents via EMS as she was found essentially unconscious by her mother. She was lying on the floor next to an empty bottle of an unspecified alcoholic beverage. Her mother states that she believes that the pt was attempting suicide by alcohol, however, the pt herself regained her mentation after a few hours in the ER and denies any suicidal ideation. Alcohol intoxication, withdrawal, depression - on admission, patient's blood alcohol was 449 the pt is AAO x 3 - patient's mother filled out a 302 request however no 302 warrant was issued - will keep on file in case necessary later in detox process - patient reports that she "wants everything to be fixed". She agrees to further treatment and expresses wish to stop drinking. - continue IVF, thiamine, folate, PO Librium and IV Ativan as needed for withdrawal. - Consult psych - will add gabapentin withdrawal protocol per psych rec as patient has history of seizure with withdrawal, reduce lorazepam to 1mg q4h prn, continue Libium DM II without insulin use - placed on SS only as she is at risk of hypoglycemia - continue to hold home metformin - outreach educator per patient request - last A1c in November was 7.1 Pancreatic insufficiency - cont supplemental enzymes with meals Neuropathy - cont Gabapentin, Cymbalta Psoriasis - patient was taking clobetasol at home but that is non formulary - will provide topical betamethasone daily Full code - SCDs Total time for this admit including review of labs, meds, imaging, records - discussion with pt and ER attending - 36 min (Pamela Sosa, UBALDO) Reviewed: Pt Seen/Exam by Me (Becca Irby MD) History LOGISTICS ADMINISTRATOR supervision Note: I interviewed and examined the patient. Discussed with UBALDO Sosa and agree with findings and plan as documented in the note. Any exceptions or clarifications are listed here: Patient has no complaints. She denies anxiety or tremor. No nausea or vomiting. Telemetry was sinus tachycardia Vitals reviewed Gen: AAOx3, NAD HEENT: anicteric sclerae, EOMI CV: RRR no mgr nl S1S2 Pulm: CTAB no wcr Abd: +BS soft NT ND no masses or hernias Ext: no edema, 2+ DP pulses Skin: warm/dry This patient is a 52-year-old female with history of alcohol dependence with history of seizures, anxiety and major depressive disorder, psoriasis, peripheral neuropathy, multiple admissions for alcohol intoxication and detoxification, chronic pancreatitis and pancreatic insufficiency, pancreatic cysts, alcoholic fatty liver, and diabetes mellitus type 2, here with alcohol intoxication and toxic encephalopathy, here for alcohol detox. -We will increase as needed Ativan to every 2 hours as needed given her significant dependence on alcohol and history of withdrawal seizures -Continue Librium and taper down -Continue gabapentin and taper down -For her diabetes, metformin may not be the best choice for her, likely secondary to chronic pancreatitis from alcohol use-will tighten down her correction factor and add on carbohydrate coverage with sliding scale and calculate need for long-term insulin given her pancreatic insufficiency -Peripheral neuropathy-fairly significant and long-standing, will check B12 level -Alcoholic fatty liver and mild elevation of LFTs-follow LFTs, encourage alcohol cessation, check folate level, continue thiamine, folate supplementation -Appreciate psychiatric consultation Documented By: Becca Irby (Becca Irby MD)
[2018-02-12] MEDS: LORAZEPAM 2 MG/ML 1 ML VIAL IV PRN ×2 (10:26→18:29)
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
[2018-02-12] MEDS ORDERED: GABAPENTIN 600 MG TAB PO SCH (14:45)
[2018-02-12] MEDS ORDERED: LORAZEPAM 2 MG/ML 1 ML VIAL IV PRN (14:45)
[2018-02-12] MEDS ORDERED: GABAPENTIN 1200MG LOADING DOSE PO SCH (16:00)
[2018-02-12] MEDS: GABAPENTIN 600MG Q6H DOSE PO SCH (21:59)
[2018-02-13] VITALS (7 sets, daily range): BP systolic 137–172; BP diastolic 92–112; PULSE 83–98; TEMP 36.4–36.9; O2SAT 93–100
[2018-02-13] MEDS: LORAZEPAM 2 MG/ML 1 ML VIAL IV PRN ×3 (00:23→21:42)
[2018-02-13] MEDS: GABAPENTIN 600MG Q6H DOSE PO SCH (05:32)
[2018-02-13 07:34] LABS: HEMOGLOBIN 12.2 g/dL (12.0-16.0); MEAN CELL VOLUME 89.6 fL (80-100); MEAN CORPUSCULAR HEMOGLOBIN 29.5 pg (25-34); MEAN PLATELET VOLUME 9.5 fL (7.4-10.4); PLATELET COUNT 63 K/uL (130-400); RED CELL DISTRIBUTION WIDTH CV 16.4 % (11.5-14.5); RED CELL DISTRIBUTION WIDTH SD 53.9 fL (36.4-46.3); WHITE BLOOD COUNT 2.43 K/uL (4.8-10.8)
[2018-02-13 07:35] LABS: BASO % 0.4 %; BASO ABS # 0.01 K/uL (0-0.2); EOS % 4.9 %; EOS ABS # 0.12 K/uL (0-0.5); LYMPH % 26.3 %; LYMPH ABS # 0.64 K/uL (1.2-3.4); MONO % 3.7 %; MONO ABS # 0.09 K/uL (0.11-0.59); NEUT % 64.7 %; NEUT ABS # 1.57 K/uL (1.4-6.5)
[2018-02-13 08:12] LABS: ALBUMIN 3.3 gm/dl (3.4-5.0); CALCIUM 8.2 mg/dl (8.5-10.1); CREATININE 0.86 mg/dl (0.60-1.20); POTASSIUM 3.7 mmol/L (3.5-5.1); TOTAL PROTEIN 6.8 gm/dl (6.4-8.2)
[2018-02-13] MEDS: FoLIC ACID INJ 1 MG in SYRINGE 9.8 ML IV SCH (08:16)
[2018-02-13] MEDS: CHLORDIAZEPOXIDE 25 MG CAP PO SCH ×3 (08:16→20:15)
[2018-02-13] MEDS: DULOXETINE HCL 60 MG CAP PO SCH (08:17)
[2018-02-13] MEDS: VITAMIN B COMPLEX TAB PO SCH (08:17)
[2018-02-13] MEDS: PANCREAZE (LIPASE 10,500U) CAP PO SCH ×3 (08:17→16:07)
[2018-02-13] MEDS: PANTOprazole SOD 40 MG TAB PO SCH (08:18)
[2018-02-13] MEDS: BETAMETHASONE DIP AUG (DIPROLENE) 0.05% OINT 15 GM TUBE EXT SCH (08:19)
[2018-02-13] MEDS: INSULIN ASPART 100 UNITS/ML 3 ML PEN SC SCH ×4 (08:23→20:16)
[2018-02-13] MEDS ORDERED: THIAMINE HCL 100 MG/ML 2 ML VIAL IV SCH (09:00)
[2018-02-13] MEDS ORDERED: THIAMINE HCL INJ 100 MG in SYRINGE 9 ML IV SCH (09:00)
--- NOTE | 2018-02-13 11:22 | Psychiatric Progress Notes ---
Psychiatric Progress Note Date of Service February 13, 2018. Notes ID: Patient reviewed with liaison nurse. Initial consult reviewed, seen by Dr. Frances on 02/12. Known to me from previous admissions for ETOH detox CC: "I just need to talk" HPI: patient remains resistant to rehab but recognizes depression as contributing factor to her self-medicating. significant risk factors given divorce, somewhat conflictual relationship with mother, lack of housing options. ROS: denies tremor, hx of withdrawal seizure, reports hyperglycemia Vital Signs Past 12 Hours Date Time Temp Pulse Resp B/P (MAP) Pulse Ox O2 Delivery O2 Flow Rate FiO2 02/13/18 08:05 Room Air 02/13/18 06:43 36.9 89 21 162/103 (122) 93 Room Air 02/13/18 05:29 36.8 96 19 162/106 (124) 97 Room Air 02/13/18 04:00 Room Air 02/12/18 23:59 Room Air 02/12/18 23:27 37.1 92 19 156/102 (120) 97 Room Air 155/100 (118) MSE: alert, cooperative, depressed and tearful, thoughts organized. Although denies suicidal ideation currently admits that life lacks structure and support and has difficulty coping without drinking. No johnson/del. Insight and judgement vary. Last 24 Hours Test 02/12/18 11:20 02/12/18 16:22 02/12/18 21:00 02/13/18 06:42 Bedside Glucose 187 mg/dl 152 mg/dl 188 mg/dl White Blood Count 2.43 K/uL Red Blood Count 4.13 M/uL Hemoglobin 12.2 g/dL Hematocrit 37.0 % Mean Corpuscular Volume 89.6 fL Mean Corpuscular Hemoglobin 29.5 pg Mean Corpuscular Hemoglobin Concent 33.0 g/dl Platelet Count 63 K/uL Mean Platelet Volume 9.5 fL Neutrophils (%) (Auto) 64.7 % Lymphocytes (%) (Auto) 26.3 % Monocytes (%) (Auto) 3.7 % Eosinophils (%) (Auto) 4.9 % Basophils (%) (Auto) 0.4 % Neutrophils # (Auto) 1.57 K/uL Lymphocytes # (Auto) 0.64 K/uL Monocytes # (Auto) 0.09 K/uL Eosinophils # (Auto) 0.12 K/uL Basophils # (Auto) 0.01 K/uL RDW Standard Deviation 53.9 fL RDW Coefficient of Variation 16.4 % Immature Granulocyte % (Auto) 0.0 % Immature Granulocyte # (Auto) 0.00 K/uL Platelet Estimate DECREASED Sodium Level 136 mmol/L Potassium Level 3.7 mmol/L Chloride Level 102 mmol/L Carbon Dioxide Level 28 mmol/L Anion Gap 6.0 mmol/L Blood Urea Nitrogen 5 mg/dl Creatinine 0.86 mg/dl Est Creatinine Clear Calc Drug Dose 71.6 ml/min Estimated GFR () 90.0 Estimated GFR (Non- 77.7 BUN/Creatinine Ratio 5.9 Random Glucose 238 mg/dl Calcium Level 8.2 mg/dl Total Bilirubin 0.9 mg/dl Aspartate Amino Transf (AST/SGOT) 73 U/L Alanine Aminotransferase (ALT/SGPT) 49 U/L Alkaline Phosphatase 115 U/L Total Protein 6.8 gm/dl Albumin 3.3 gm/dl Globulin 3.5 gm/dl Albumin/Globulin Ratio 0.9 Vitamin B12 Level 457 pg/mL Folate > 24.00 ng/mL Test 02/13/18 07:09 Bedside Glucose 258 mg/dl Imp: major depressive disorder and ETOH dependence admit with ALICE >400, currently on Neurontin loading for hospital detox protocol Plan: I agree with Dr. Frances's assessment that cannot be committed under [place] mental health law for statements made while intoxicated. She would benefit from inpatient mental health admission and seems agreeable to a 201 when medically cleared. 302 petition can remain on chart. I agree that patient should not be allowed to leave the hospital AMA without safety planning/ outpatient therapy follow-up if ultimately changes her mind re: inpatient care.
--- NOTE | 2018-02-13 12:49 | Hospitalist Progress Note ---
Hospitalist Progress Note Date of Service February 13, 2018. (Pamela Sosa ., UBALDO) Subjective Pt evaluation today including: conversation w/ patient, physical exam, chart review, lab review, review of inpatient medication list Voiding: no voiding problems Ms. Chiu has no complaints though she says she does not know how she was feeling because she just woke up. She denies any tremors. ROS Constitutional: no chills, aches, sweats or fever Respiratory: no sob,cough, sputum, or wheezing Cardiac: no chest pain, palpitations, edema, orthopnea or lightheadedness GI: no abdominal pain, nausea, vomiting, diarrhea or constipation : no dysuria or hesitancy Extremities: no joint pain or weakness Skin: no rash All other systems reviewed and negative (Pamela Sosa .UBALDO) Medications Medications Administered Medications (Trade) Dose Ordered Sig/Gisselle Route Start Time Stop Time Status Last Admin Dose Admin Multivitamins 10 ml/Thiamine HCl 100 mg/Folic Acid 1 mg/Sodium Chloride 1,011.2 ml @ 500 mls/ hr Q2H2M STAT IV 02/11/18 10:52 02/11/18 12:53 DC 02/11/18 12:03 500 MLS/HR Clonidine HCl (Btcilkat-Dmy-9 0.1mg/24hr Patch) 1 patch NOW STAT TD 02/11/18 10:59 02/11/18 11:00 DC 02/11/18 12:03 1 PATCH Duloxetine HCl (Cymbalta Cap) 60 mg DAILY PO 02/12/18 09:00 03/14/18 08:59 02/13/18 08:17 60 MG Gabapentin (Neurontin Cap) 300 mg TID PO 02/11/18 21:00 03/13/18 20:59 Future Hold 02/12/18 14:10 300 MG Pantoprazole Sodium (Protonix Tab) 40 mg DAILY PO 02/12/18 09:00 03/14/18 08:59 02/13/18 08:18 40 MG Vitamin B Complex (Vitamin B Complex) 1 tab DAILY PO 02/12/18 09:00 03/14/18 08:59 02/13/18 08:17 1 TAB Amylase/Lipase/ Protease (Pancreaze (Lipase 10,500U) Cap) 1 cap TIDM PO 02/11/18 18:30 03/13/18 18:29 02/13/18 11:50 1 CAP Potassium Chloride/Sodium Chloride 1,000 ml @ 150 mls/hr Q6H40M IV 02/11/18 18:00 02/12/18 07:19 DC 02/12/18 00:40 150 MLS/HR Thiamine HCl (Vitamin B-1 Inj) 100 mg QAM IM 02/12/18 09:00 02/12/18 17:16 DC 02/12/18 08:51 100 MG Thiamine HCl (Vitamin B-1 Inj) 100 mg NOW STAT IM 02/11/18 14:31 02/11/18 15:15 DC 02/11/18 16:32 100 MG Folic Acid 1 mg/ Syringe 10 ml @ 5 mls/min QAM IV 02/12/18 09:00 03/14/18 08:59 02/13/18 08:16 5 MLS/MIN Acetaminophen (Tylenol Tab) 650 mg Q4H PRN PO 02/11/18 14:45 03/13/18 14:44 02/12/18 07:35 650 MG Al Hydrox/Mg Hydrox/Simethicone (Maalox Max Susp) 15 ml Q4H PRN PO 02/11/18 14:45 03/13/18 14:44 02/12/18 10:25 15 ML Ondansetron HCl (Zofran Inj) 4 mg Q6H PRN IV 02/11/18 14:45 03/13/18 14:44 02/12/18 07:43 4 MG Lorazepam (Ativan Inj) 1 mg Q2H PRN IV 02/11/18 14:45 02/12/18 14:43 DC 02/12/18 10:26 1 MG Lorazepam 1 mg/ Syringe 1 ml @ 1 mls/min Q2H PRN IV 02/11/18 16:15 02/12/18 14:43 DC 02/12/18 01:54 1 MLS/MIN Chlordiazepoxide (Librium Cap) 25 mg NOW ONCE PO 02/11/18 17:15 02/11/18 17:29 DC 02/11/18 18:33 25 MG Chlordiazepoxide (Librium Cap) 25 mg TID PO 02/11/18 21:00 03/13/18 20:59 02/13/18 08:16 25 MG Betamethasone Dipropion Augmented (Diprolene .05% Oint) 1 appln DAILY EXT 02/13/18 09:00 03/15/18 08:59 02/13/18 08:19 1 APPLN Gabapentin (Neurontin Tab) 1,200 mg TODAY@1600 PO 02/12/18 16:00 02/12/18 16:01 DC 02/12/18 16:05 1,200 MG Gabapentin (Neurontin Tab) 600 mg 0600,2200 PO 02/12/18 22:00 02/13/18 06:01 DC 02/13/18 05:32 600 MG Lorazepam (Ativan Inj) 1 mg Q2H PRN IV 02/12/18 17:30 03/14/18 14:44 02/13/18 00:23 1 MG Insulin Aspart (novoLOG ASPART) SLIDING SCALE G... ACHS SC 02/12/18 21:00 03/13/18 17:59 02/13/18 08:23 4 UNITS Thiamine HCl 100 mg/Syringe 10 ml @ 2 mls/min QAM IV 02/13/18 09:00 03/15/18 08:59 02/13/18 08:17 2 MLS/MIN (Pamela Sosa, UBALDO) Objective Vital Signs Date Time Temp Pulse Resp B/P (MAP) Pulse Ox O2 Delivery O2 Flow Rate FiO2 02/13/18 12:00 Room Air 02/13/18 11:41 36.7 98 20 157/92 (113) 99 Room Air 02/13/18 08:05 Room Air 02/13/18 06:43 36.9 89 21 162/103 (122) 93 Room Air 02/13/18 05:29 36.8 96 19 162/106 (124) 97 Room Air 02/13/18 04:00 Room Air 02/12/18 23:59 Room Air 02/12/18 23:27 37.1 92 19 156/102 (120) 97 Room Air 155/100 (118) 02/12/18 20:00 Room Air 02/12/18 19:33 36.7 105 20 147/96 (113) 99 Room Air 02/12/18 16:01 37.1 99 20 166/95 (118) 95 Room Air 02/12/18 16:00 95 Room Air (Pamela Sosa CRNP) Physical Exam Notes: General: no distress Eyes: normal inspection, PERLL Respiratory: chest non tender, clear to auscultation, normal breath sounds, no respiratory distress, no accessory muscle use Cardiac: regular rate and rhythm, no rub or gallop, no murmur, no edema, no jvd GI/: active bowel sounds, no abd pain or tenderness, soft, non distended Extremities: normal range of motion, normal strength, non tender Neuro/Psych: alert and oriented x 3, normal mood and affect Skin: normal color, dry, psoriatic scalp (Pamela Sosa CRNP) Laboratory Results Last 24 Hours Test 02/12/18 16:22 02/12/18 21:00 02/13/18 06:42 02/13/18 07:09 Bedside Glucose 152 mg/dl 188 mg/dl 258 mg/dl White Blood Count 2.43 K/uL Red Blood Count 4.13 M/uL Hemoglobin 12.2 g/dL Hematocrit 37.0 % Mean Corpuscular Volume 89.6 fL Mean Corpuscular Hemoglobin 29.5 pg Mean Corpuscular Hemoglobin Concent 33.0 g/dl Platelet Count 63 K/uL Mean Platelet Volume 9.5 fL Neutrophils (%) (Auto) 64.7 % Lymphocytes (%) (Auto) 26.3 % Monocytes (%) (Auto) 3.7 % Eosinophils (%) (Auto) 4.9 % Basophils (%) (Auto) 0.4 % Neutrophils # (Auto) 1.57 K/uL Lymphocytes # (Auto) 0.64 K/uL Monocytes # (Auto) 0.09 K/uL Eosinophils # (Auto) 0.12 K/uL Basophils # (Auto) 0.01 K/uL RDW Standard Deviation 53.9 fL RDW Coefficient of Variation 16.4 % Immature Granulocyte % (Auto) 0.0 % Immature Granulocyte # (Auto) 0.00 K/uL Platelet Estimate DECREASED Sodium Level 136 mmol/L Potassium Level 3.7 mmol/L Chloride Level 102 mmol/L Carbon Dioxide Level 28 mmol/L Anion Gap 6.0 mmol/L Blood Urea Nitrogen 5 mg/dl Creatinine 0.86 mg/dl Est Creatinine Clear Calc Drug Dose 71.6 ml/min Estimated GFR () 90.0 Estimated GFR (Non- 77.7 BUN/Creatinine Ratio 5.9 Random Glucose 238 mg/dl Calcium Level 8.2 mg/dl Total Bilirubin 0.9 mg/dl Aspartate Amino Transf (AST/SGOT) 73 U/L Alanine Aminotransferase (ALT/SGPT) 49 U/L Alkaline Phosphatase 115 U/L Total Protein 6.8 gm/dl Albumin 3.3 gm/dl Globulin 3.5 gm/dl Albumin/Globulin Ratio 0.9 Vitamin B12 Level 457 pg/mL Folate > 24.00 ng/mL Test 02/13/18 11:06 Bedside Glucose 78 mg/dl (Pamela Sosa ., UBALDO) Assessment and Plan 51 y/o F extensive Hx of ETOH abuse, withdrawal seizures, neuropathy, uterine CA , pancreatic insufficiency, possibly hep C, DM II. She has been admitted multiple times for alcohol intoxication. She presents via EMS as she was found essentially unconscious by her mother. She was lying on the floor next to an empty bottle of an unspecified alcoholic beverage. Her mother states that she believes that the pt was attempting suicide by alcohol, however, the pt herself regained her mentation after a few hours in the ER and denies any suicidal ideation. Alcohol intoxication, withdrawal, depression, htn - on admission, patient's blood alcohol was 449 the pt is AAO x 3 - patient's mother filled out a 302 request however no 302 warrant was issued - will keep on file in case necessary later in detox process - psych was in contact with patient's chief investment officer with patient's permission - patient reported that she "wants everything to be fixed". She agrees to further treatment and expresses wish to stop drinking. - continue IVF, thiamine, folate, PO Librium and IV Ativan as needed for withdrawal. - Consult psych - continue gabapentin withdrawal protocol per psych rec as patient has history of seizure with withdrawal, lorazepam to 1mg q2h prn, and Libium - prn clonidine for SBP > 180 or DBP > 100 DM II without insulin use - ss, bsgs ac & hs - continue to hold home metformin - unit educator per patient request - last A1c in November was 7.1 Pancreatic insufficiency - cont supplemental enzymes with meals Neuropathy - cont Gabapentin, Cymbalta Psoriasis - patient was taking clobetasol at home but that is non formulary - will provide topical betamethasone daily Full code - SCDs (Pamela Sosa ., UBALDO) Reviewed: Pt Seen/Exam by Me (Becca Irby MD) History OFFICE SERVICES ASSOCIATE supervision Note: I interviewed and examined the patient. Discussed with UBALDO Sosa and agree with findings and plan as documented in the note. Any exceptions or clarifications are listed here: Patient has no complaints. She denies anxiety or tremor. No nausea or vomiting. Blood pressures have been elevated today. She is asking about follow -up psychiatry care Telemetry was sinus tachycardia Vitals reviewed Gen: AAOx3, NAD HEENT: anicteric sclerae, EOMI CV: RRR no mgr nl S1S2 Pulm: CTAB no wcr Abd: +BS soft NT ND no masses or hernias Ext: no edema, 2+ DP pulses Skin: Severe seborrheic dermatitis of the scalp and face This patient is a 52-year-old female with history of alcohol dependence with history of seizures, anxiety and major depressive disorder, psoriasis, peripheral neuropathy, multiple admissions for alcohol intoxication and detoxification, chronic pancreatitis and pancreatic insufficiency, pancreatic cysts, alcoholic fatty liver, and diabetes mellitus type 2, here with alcohol intoxication and toxic encephalopathy, here for alcohol detox. -Continue Ativan to every 2 hours as needed given her significant dependence on alcohol and history of withdrawal seizures -Continue Librium and taper down eventually, continue at current dose given hypertension and tachycardia -Continue gabapentin and taper down as per protocol -For her diabetes, metformin may not be the best choice for her, likely secondary to chronic pancreatitis from alcohol use-will tighten down her correction factor and add on carbohydrate coverage with sliding scale and calculate need for long-term insulin given her pancreatic insufficiency -Peripheral neuropathy-fairly significant and long-standing, B12 level is normal -Alcoholic fatty liver and mild elevation of LFTs, thrombocytopenia- transaminases continue to be mildly elevated, platelets have now dropped to 62k which has occurred previously. She has evidence of early cirrhosis by imaging and alcoholic fatty liver but no splenomegaly on CT scan from 6 months ago-we will continue to follow LFTs and CBC, encourage alcohol cessation, continue thiamine, folate supplementation -Appreciate psychiatric consultation-possible plan for inpatient psychiatry when medically stable -Clonidine added for as needed use, continue benzodiazepines as needed -Severe seborrheic dermatitis of the scalp and face-add on ketoconazole cream, ketoconazole shampoo is not available here but would recommend dandruff shampoo -Expect discharge in likely 2 days Documented By: Becca Irby (Becca Irby MD)
[2018-02-13] MEDS ORDERED: CLONIDINE HCL 0.1 MG TAB PO PRN ×2 (13:30→17:30)
[2018-02-13] MEDS: GABAPENTIN 600MG Q8H DOSE PO SCH ×2 (14:31→20:15)
[2018-02-13] MEDS ORDERED: KETOCONAZOLE 2% CR 15 GM TUBE EXT ONE (18:33)
[2018-02-13] MEDS: ACETAMINOPHEN 325 MG TAB PO PRN (23:35)
[2018-02-14] VITALS (7 sets, daily range): BP systolic 143–170; BP diastolic 93–116; PULSE 74–87; TEMP 36.3–36.6; O2SAT 98–100
[2018-02-14] MEDS: ACETAMINOPHEN 325 MG TAB PO PRN (03:48)
[2018-02-14] MEDS: GABAPENTIN 600MG Q8H DOSE PO SCH (05:23)
[2018-02-14 06:40] LABS: HEMATOCRIT 37.1 % (37-47); HEMOGLOBIN 12.5 g/dL (12.0-16.0); MEAN CELL VOLUME 89.2 fL (80-100); MEAN CORPUSCULAR HGB CONC 33.7 g/dl (32-36); RED CELL DISTRIBUTION WIDTH CV 16.3 % (11.5-14.5); RED CELL DISTRIBUTION WIDTH SD 53.3 fL (36.4-46.3); WHITE BLOOD COUNT 3.52 K/uL (4.8-10.8)
[2018-02-14 06:46] LABS: MEAN PLATELET VOLUME 10.3 fL (7.4-10.4); PLATELET COUNT 74 K/uL (130-400)
[2018-02-14 07:05] LABS: ALBUMIN 3.8 gm/dl (3.4-5.0); CREATININE 0.83 mg/dl (0.60-1.20); POTASSIUM 4.1 mmol/L (3.5-5.1)
[2018-02-14 07:08] LABS: TOTAL PROTEIN 7.9 gm/dl (6.4-8.2)
[2018-02-14 07:38] LABS: BASO % 0.6 %; BASO ABS # 0.02 K/uL (0-0.2); EOS % 4.8 %; EOS ABS # 0.17 K/uL (0-0.5); IG# 0.01 K/uL (0.00-0.02); LYMPH % 34.1 %; MONO % 5.7 %; NEUT % 54.5 %; NEUT ABS # 1.92 K/uL (1.4-6.5)
[2018-02-14] MEDS: CHLORDIAZEPOXIDE 25 MG CAP PO SCH ×2 (07:49→13:40)
[2018-02-14] MEDS: PANTOprazole SOD 40 MG TAB PO SCH (07:49)
[2018-02-14] MEDS: INSULIN ASPART 100 UNITS/ML 3 ML PEN SC SCH ×2 (07:49→11:00)
[2018-02-14] MEDS: PANCREAZE (LIPASE 10,500U) CAP PO SCH ×2 (07:50→11:45)
[2018-02-14] MEDS: VITAMIN B COMPLEX TAB PO SCH (07:50)
[2018-02-14] MEDS: DULOXETINE HCL 60 MG CAP PO SCH (07:50)
[2018-02-14] MEDS: BETAMETHASONE DIP AUG (DIPROLENE) 0.05% OINT 15 GM TUBE EXT SCH (07:51)
[2018-02-14] MEDS ORDERED: KETOCONAZOLE 2% CR 15 GM TUBE EXT SCH (09:00)
[2018-02-14] MEDS ORDERED: DEXTROSE 5% IV SCH (09:00)
[2018-02-14] MEDS ORDERED: THIAMINE HCL IV SCH (09:00)
[2018-02-14] MEDS ORDERED: CEROVITE ADV FORMULA TAB PO SCH (09:00)
[2018-02-14] MEDS: FoLIC ACID INJ 1 MG in SYRINGE 9.8 ML IV SCH (09:12)
[2018-02-14] MEDS: LORAZEPAM 2 MG/ML 1 ML VIAL IV PRN (11:15)
[2018-02-14] MEDS ORDERED: NRN400 PO (16:24)
[2018-02-14] MEDS ORDERED: LBR25 PO (16:24)
[2018-02-14] MEDS ORDERED: THM100 PO (16:24)
--- NOTE | 2018-02-14 16:42 | Discharge Instructions ---
Discharge Instructions Date of Service February 14, 2018. Admission Reason for Admission: Alcohol Dependence with Alcohol Intoxication Discharge Discharge Diagnosis / Problem: Alcohol dependence Discharge Goals Goal(s): Learn about illness, Diagnostic testing, Therapeutic intervention Activity Recommendations Activity Limitations: resume your previous activity . Instructions / Follow-Up Instructions / Follow-Up 1. The healthcare team strongly recommends that you stop drinking all forms of alcohol. 100% abstinence is recommended. 2. You will likely develop cirrhosis of the liver from ongoing alcohol use if you are unable to quit/abstain. 3. We support your desire to pursue outpatient counseling for your alcohol problem; a list of services in the [facility] has been provided to you. 4. We have INCREASED your gabapentin to 400mg three times a day. This will help your neuropathy and also prevent alcohol withdrawal. New prescription provided. 5. The metformin for your diabetes is ONLY safe if you are not drinking alcohol. Please discontinue the metformin if you continue to drink alcohol. If you stop the metformin please see your family doctor right away to discuss alternative medications. 6. To prevent alcohol withdrawal we have been giving you librium ( Chlordiazepoxide) in the hospital. If you remain sober please complete a "librium taper." Start this TONIGHT, 02/14/18. Take 1 tablet three times a day for 3 days, then 1 tablet twice a day for 3 days , then 1 tablet once a day for 3 days, then stop. If you relapse and begin drinking alcohol again please STOP the librium immediately. 7. DO NOT DRINK AND DRIVE; DO NOT DRINK AND OPERATE HEAVY MACHINERY. 8. We recommend thiamine supplementation for 1 month to replenish your vitamin levels. 9. DO NOT TAKE PQOT-GMK-ITDRDLD TYLENOL AT ANY TIME. 10. Follow-up - see Dr. Hoover within 3 days of discharge 11. Return to [facility] if - * you desire inpatient mental health treatment and/or inpatient alcohol treatment * you have severe alcohol withdrawal symptoms that are not responding to your medications (severe tremors, severe anxiety, profuse sweating, diarrhea, palpitations/tachycardia, etc) * fever over 100.4 degrees * yellow color of your skin or eyes * severe abdominal pain * any other concerns Current Hospital Diet Patient's current hospital diet: Diabetes Type 2 Diet Discharge Diet Recommended Diet: Diabetes Type 2 Diet Procedures Procedures Performed: CAT scan of the brain chest x-ray hand x-ray, left - no fractures seen Pending Studies Studies pending at discharge: no Laboratory Results Hemoglobin A1c Test 11/28/17 05:47 Range/Units Estimated Average Glucose 157 mg/dl Hemoglobin A1c 7.1 H 4.5-5.6 % Medical Emergencies . Who to Call and When: Medical Emergencies: If at any time you feel your situation is an emergency, please call 911 immediately. . Non-Emergent Contact Non-Emergency issues call your: Primary Care Provider Call Non-Emergent contact if: temperature is above 100.5, your pain is not controlled, your pain is worsening, your pain is unusual for you, your pain is concerning you, you have any medication questions . . "Provider Documentation" section prepared by Alfonso Valencia. .
[2018-02-14] MEDS ORDERED: GABAPENTIN 600MG Q12H DOSE PO SCH (18:00)
--- NOTE | 2018-02-14 18:18 | Discharge Summary ---
Discharge Summary Date of Service February 14, 2018. Discharge Summary Admission Date: February 11, 2018 at 17:11 Discharge Date: February 14, 2018 Discharge Disposition: Acute care facility ([facility] ) Principal Diagnosis: alcohol intoxication Problems/Secondary Diagnoses: 1. alcohol-induced pancytopenia 2. abnormal LFTs 2nd to alcohol 3. alcohol dependence 4. h/o alcohol withdrawal seizures 5. pancreatic insufficiency 6. diabetes mellitus, type 1 vs type 2 7. h/o uterine cancer 8. h/o major depression 9. peripheral neuropathy, question alcohol-induced 10. toxic encephalopathy - resolved 11. mild alcohol withdrawal 12. psoriasis Procedures: 1. CT head - Findings: A few scattered small dural calcifications remain unchanged. This is of doubtful clinical significance. The paranasal sinuses and mastoid air cells are clear. The calvarium and skull base are intact. There is a 2 cm focus of encephalomalacia within the right temporal lobe on image 8. This is similar to the prior study and likely represents sequela of an old infarct or old trauma. There is no mass, hematoma, midline shift, or acute infarct. Impression: No significant change compared to the prior study. No acute intracranial abnormality. 2. left hand x-rays negative for fracture 3. chest x-ray without infiltrates Consultations: psychiatry Medication Reconciliation New Medications: Thiamine HCl (Vitamin B-1) 100 Mg Tab 200 MG PO BID for 30 Days, #120 TABS 0 Refills Chlordiazepoxide (Chlordiazepoxide HCl) 25 Mg Cap 25 MG PO DIRECTED, #18 CAP 0 Refills 1 capsule TID x 3 days, then 1 capsule BID x 3 days, then 1 capsule daily x 3 days. Changed Medications: Gabapentin (Gabapentin) 400 Mg Cap 400 MG PO TID, #90 CAP 0 Refills (Changed from: Gabapentin (Neurontin) 300 Mg Cap 300 Mg PO TID) Continued Medications: B-Complex Vitamins (Vitamin B Complex) 1 Tab Tab 1 TAB PO DAILY Duloxetine Hcl (Cymbalta) 60 Mg Cap 60 MG PO DAILY, CAP Folic Acid (Folic Acid) 1 Mg Tab 1 MG PO DAILY Hydroxyzine Pamoate (Vistaril) 50 Mg Cap 50 MG PO BID PRN for Anxiety, CAP PRN ITCH Metformin HCl (Metformin HCl) 500 Mg Tab 500 MG PO BID Pancrelipase (Lipase-Protease- (Zenpep) 1 Cap Cap 1 CAP PO TIDM Pantoprazole (Protonix) 40 Mg Tab 40 MG PO DAILY, #30 TAB Discharge Exam Physical Exam: General Appearance: no apparent distress, + pertinent finding (looks older than stated age; no signs of withdrawal or intoxication) ENT: pharynx normal Neck: no JVD Respiratory/Chest: lungs clear, no respiratory distress, no accessory muscle use Cardiovascular: regular rate, rhythm, no gallop, no murmur, normal peripheral pulses Abdomen / GI: normal bowel sounds, non tender, soft, + hepatomegaly (mild, about 2cm below costal margin; but nontender) Extremities: no pedal edema Neurologic/Psychiatric: alert, normal mood/affect, oriented x 3, + pertinent finding (no tremors) Skin: + rash (seborrhea of scalp) Hospital Course HISTORY OF PRESENT ILLNESS: 51 y/o F extensive Hx of ETOH abuse, withdrawal seizures, neuropathy, uterine CA , pancreatic insufficiency, DM II. She has been admitted multiple times for alcohol intoxication. She presents via EMS as she was found essentially unconscious by her mother. She was lying on the floor next to an empty bottle of an unspecified alcoholic beverage. Her mother states that she believes that the pt was attempting suicide by alcohol, however, the pt herself regained her mentation after a few hours in the ER and denies any suicidal ideation. She has vomited a few times in the ER. She denies additional symptoms of CP, SOB, dysuria, KEENE or fever. No abnormalities are noted on initial labs aside form an alcohol level 450. HOSPITAL COURSE: The patient was given supportive care for her alcohol intoxication. She had toxic encephalopathy related to the alcohol which resolved quickly after admission. She was seen by psychiatry for her depression and her mother's concern that she was trying to attempt suicide by alcohol. However, after much discussion, the patient was NOT suicidal and denied any recent suicidal/homicidal ideation or attempt. The patient was placed on gabapentin for alcohol withdrawal prophylaxis, librium , ativan PRN, and multivitamin/thiamine/folic acid. The patient had mild, at worst, alcohol withdrawal symptoms during her stay. Ms. Chiu initially was agreeable to voluntary admission to the inpatient psychiatric unit following her medical stay. She also initially voiced that she wished to quit alcohol use. On 02/14/18 the patient changed her mind about voluntary admission to the psychiatric unit. She reported she was ready to be discharged. There were also no grounds to file a 302 involuntary commitment. The patient was alert, oriented, and appeared to be of sound mind & with capacity. During this stay the patient had consented for the psychiatric team to contact her donor relations officer. Apparently the patient had violated her probation in the recent past. Thus, on the afternoon of 02/14/18, the donor relations officer was contacted and at that time a warrant for her arrest was submitted. The patient was subsequently discharged into the custody of her probation officers. At discharge the following were recommended - 1. increase in her gabapentin to 400mg TID (had been taking 300mg TID for neuropathy) 2. STOPPING the metformin if she were to resume alcohol consumption and speaking with her PCP about alternatives 3. librium taper 4. thiamine 200mg BID x 1 month 5. 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 These stayed stable during her stay. She also had pancytopenia likely also due to her drinking alcohol. LFTs and CBC will need to be checked at time of hospital follow-up. Total Time Spent: Greater than 30 minutes This includes examination of the patient, discharge planning, medication reconciliation, and communication with other providers. Discharge Instructions Please refer to the electronic Patient Visit Report (Discharge Instructions) for additional information. Follow-Up see Dr. Hoover within 3 days Additional Copies To RV. Mobley MD
[2018-02-14] MEDS ORDERED: THIAMINE HCL INJ 200 MG in SODIUM CHLORIDE 0.9% 50ML 50 ML IV SCH (21:00)
[2018-02-16] MEDS ORDERED: GABAPENTIN 600MG X1 DOSE PO SCH (06:00)
== END 2018-02-14 17:39 | disposition home or self-care (01) | DRG 896 ==
LOC: EDBD 10:32 → C.EDA 10:33 → ENRESERV 15:03 → C.2T 17:11
PROVIDERS: ADMIT Internal Medicine; ATTEND Internal Medicine
DX: F10.220 Alcohol dependence with intoxication, uncomplicated (principal); G92 Toxic encephalopathy; F33.9 Major depressive disorder, recurrent, unspecified; K86.1 Other chronic pancreatitis; D61.818 Other pancytopenia; F41.9 Anxiety disorder, unspecified; E03.9 Hypothyroidism, unspecified; F17.200 Nicotine dependence, unspecified, uncomplicated; Y90.8 Blood alcohol level of 240 mg/100 ml or more; E11.9 Type 2 diabetes mellitus without complications; K86.89 Other specified diseases of pancreas; G62.9 Polyneuropathy, unspecified; F10.239 Alcohol dependence with withdrawal, unspecified; L40.9 Psoriasis, unspecified; K70.0 Alcoholic fatty liver; Z91.19 Patient's noncompliance with other medical treatment and regimen; Z87.440 Personal history of urinary (tract) infections; Z85.54 Personal history of malignant neoplasm of ureter; Z79.84 Long term (current) use of oral hypoglycemic drugs; Z80.9 Family history of malignant neoplasm, unspecified; Z82.49 Family history of ischemic heart disease and other diseases of the circulatory system

== ENCOUNTER 2019-03-04 13:21 | Inpatient (IN) ==
[2019-03-04] MEDS ORDERED: PROPOFOL IV EMULSION 10 MG/ML 20 ML VIAL IV ONE ×2 (13:27→16:40)
[2019-03-04] MEDS ORDERED: fentaNYL citrate 100 MCG/2 ML VIAL IV STA (13:29)
[2019-03-04] MEDS ORDERED: PROPOFOL IV EMULSION 10 MG/ML 20 ML VIAL IV STA (13:29)
[2019-03-04] MEDS ORDERED: fentaNYL citrate 100 MCG/2 ML VIAL ONE ×3 (13:29→17:14)
[2019-03-04] MEDS ORDERED: SODIUM CHLORIDE 0.9% 1000ML 1,000 ML IV SCH ×2 (13:30→20:29)
[2019-03-04] MEDS ORDERED: ONDANSETRON INJ 2 MG/ML 2 ML VIAL ONE ×2 (13:33→16:40)
[2019-03-04] MEDS ORDERED: CEFAZOLIN 1000MG 1,000 MG/7.5 ML SYR IV STA ×2 (13:36→14:02)
--- NOTE | 2019-03-04 13:52 | XRay Report ---
XR ankle LT 2V CLINICAL HISTORY: ankle fx dislocation trauma. Pain. COMPARISON: None. DISCUSSION: Fracture dislocation left ankle. The talus is displaced medially. There is also medial di splacement of the fibula in relation to the talus. The inferior aspect of the fibula is immediately superior to the talar dome. Considerable soft tissue edema IMPRESSION: Bimalleolar fracture dislocation The above report was generated using voice recognition software. It may contain grammatical, syntax or spelling errors. Electronically signed by: Jalen Farah M.D. 03/04/2019 1:50 PM
[2019-03-04] MEDS ORDERED: HYDROmorphone INJ 1 MG/ML SYRINGE ONE (14:00)
[2019-03-04] MEDS ORDERED: DIPHTHERIA/TETANUS/PERTUSSIS 0.5 ML SYR/VIAL IM ONE (14:02)
[2019-03-04] MEDS ORDERED: LORazepam 2 MG/4 ML VIAL ONE (14:02)
[2019-03-04] MEDS ORDERED: LORazepam 1 MG/2 ML VIAL IV STA (14:03)
[2019-03-04] MEDS ORDERED: HYDROmorphone INJ 1 MG/ML SYRINGE IV STA (14:03)
[2019-03-04 14:32] LABS: Basophils # (auto) 0.02 K/uL (0-0.2); Basophils % (auto) 0.2 %; Hematocrit (blood only) 31.7 % (37-47); Hemoglobin 11.1 g/dL (12.0-16.0); Immature Granulocytes # (auto) 0.04 K/uL (0.00-0.02); Immature Granulocytes % (auto) 0.4 %; Lymphocytes # (auto) 0.73 K/uL (1.2-3.4); Lymphocytes % (auto) 7.2 %; Mean Corpuscular Volume 84.3 fL (80-100); Mean Platelet Volume 8.9 fL (7.4-10.4); Monocytes # (auto) 0.76 K/uL (0.11-0.59); Monocytes % (auto) 7.5 %; Neutrophils # (auto) 8.58 K/uL (1.4-6.5); Neutrophils % (auto) 84.7 %; Platelet Count 254 K/uL (130-400); RDW Coefficient of Variation 16.3 % (11.5-14.5); RDW Standard Deviation 49.8 fL (36.4-46.3); Red Blood Count 3.76 M/uL (4.2-5.4); White Blood Count 10.13 K/uL (4.8-10.8)
--- NOTE | 2019-03-04 14:46 | XRay Report ---
LEFT ANKLE 3 VIEWS CLINICAL HISTORY: Postreduction examination. FINDINGS: 3 views of the left ankle are compared to study performed earlier the same day 03/04/2019. T he skeletal structures are well mineralized. The examination is performed through a cast, obscuring f ine bony detail. Again seen is a comminuted and distracted oblique fracture through the lateral malle olus. There is approximately 1.5 cm of lateral distraction of the talus at the tibiotalar articulatio n. There is also dorsal subluxation of the talus. There is also likely a posterior malleolar fracture of the tibia. There is a joint effusion. Soft tissue edema is present around the ankle. Subcutaneous emphysema suggesting open fracture. IMPRESSION: Again seen is fracture/dislocation at the ankle joint, with significantly improved align ment status post reduction. See above. Electronically signed by: Lauro Nj M.D. 03/04/2019 2:45 PM
[2019-03-04 14:48] LABS: Partial Thromboplastin Ratio 0.9; Partial Thromboplastin Time 25.1 Seconds (21.0-31.0); Prothrombin Time 9.9 Seconds (9.0-12.0)
[2019-03-04] MEDS ORDERED: LORazepam 2 MG/4 ML VIAL IV STA (15:20)
[2019-03-04] MEDS ORDERED: IOVERSOL 100ml IV PRN (15:22)
[2019-03-04] MEDS ORDERED: MULTI-VITAMIN INFUSION 10 ML, THIAMINE HCL 100 MG, FOLIC ACID 1 MG in SODIUM CHLORIDE 0... IV SCH (15:30)
--- NOTE | 2019-03-04 15:30 | Emergency Department Note ---
ED Visit Note I was asked by Dr. Garcia to perform reduction of this patient's open left ankle fracture. Please see her notes for further details regarding the patient's visit. Sedation was performed by Dr. Garcia. When the patient was appropriately sedated, saline was used to flush the wound to remove large foreign bodies and debris. Traction was then applied to the left foot in order to reduce the joint into anatomical alignment. Postreduction x-rays were performed and did show interval reduction of the joint. Ortho-Glass splint was applied by the ED liquified natural gas technician while the joint was held in alignment by myself. Patient tolerated the procedure well and there were no complications. : Bimalleolar ankle fracture Qualifiers: Encounter type: initial encounter Fracture type: open Laterality: left
--- NOTE | 2019-03-04 15:37 | CT Scan Report ---
HEAD CT NONCONTRAST CT DOSE: HISTORY: trauma TECHNIQUE: Multiaxial CT images of the head were performed without the use of intravenous contrast. A utomated exposure control was utilized for this study. A dose lowering technique was utilized adheri ng to the principles of ALARA. Comparison: Head CT 02/11/2018. Findings: The paranasal sinuses and mastoid air cells are clear. The calvarium and skull base are int act. The ventricles and sulci are within normal limits. There is no mass, hematoma, midline shift, or acute infarct. Focal area of encephalomalacia within the right temporal lobe remains unchanged. Impression: No significant change compared to the prior study. No acute intracranial abnormality. Electronically signed by: Delano Murry M.D. 03/04/2019 3:35 PM
--- NOTE | 2019-03-04 15:38 | CT Scan Report ---
CT SCAN OF THE CERVICAL SPINE CLINICAL HISTORY: Trauma. COMPARISON STUDY: No priors. TECHNIQUE: CT scan of the cervical spine is performed from the skull base to the upper thoracic spine . Images are reviewed in the axial, sagittal, and coronal planes. IV contrast was not administered fo r this examination. A dose lowering technique was utilized adhering to the principles of ALARA. CT DOSE: 1965.14 mGy.cm FINDINGS: Skeletal structures: The skeletal structures are osteopenic. There is no evidence of fracture or subl uxation involving the cervical spine. Vertebral body height and alignment are maintained. There is st raightening of the cervical lordosis with mild reversal centered at C4. Anterior osteophytes are seen throughout. The odontoid process and lateral masses are intact. The atlantoaxial articulation is pre served noting productive degenerative change. The spinous processes appear intact. There is mild to m oderate multilevel cervical spondylosis. Uncovertebral and facet arthropathy contribute to neural for aminal narrowing at several levels. There is a minimal and age indeterminant superior endplate compre ssion deformity of T1. Intervertebral discs: There is moderate disc space narrowing at C5-C6. Mild disc space narrowing is s een at the remaining cervical levels. Central canal: A posterior disc osteophyte complex at C5-C6 may contribute to mild acquired compromis e of the central canal. Soft tissues: The prevertebral and paraspinous soft tissues are within normal limits. There is athero sclerotic calcification of the carotid bulbs. Calvarium: The visualized calvarium at the skull base appears intact. Brain parenchyma: Partially visualized brain parenchyma the skull base is within normal limits. Sinuses and mastoids: The visualized paranasal sinuses are clear. The mastoid air cells are well pneu matized. Lung apices: Clear as visualized. IMPRESSION: 1. There is no evidence of fracture or subluxation involving the cervical spine. 2. There is a minimal and age indeterminant superior endplate compression deformity of T1. Correlate for point tenderness. 3. Osteopenia and spondylotic change as above. Electronically signed by: Lauro Nj M.D. 03/04/2019 3:36 PM
--- NOTE | 2019-03-04 15:46 | CT Scan Report ---
CHEST CT WITH CONTRAST CT DOSE: HISTORY: trauma TECHNIQUE: Multiaxial CT images of the chest were performed following the intravenous administration of contrast. A dose lowering technique was utilized adhering to the principles of ALARA. COMPARISON: None. FINDINGS: The central airways are patent. No pneumothorax. No pleural effusions. No focal lung consol idations. Multiple old, healed bilateral rib fractures. No acute fractures identified within the ches t. No mediastinal hematoma. The heart is normal in size. Small hiatus hernia. Mild thickening of the distal esophagus. No mediastinal or hilar lymphadenopathy. The main pulmonary arteries are patent. No rmal caliber thoracic aorta. Mild superior endplate compression deformities at T1, T6, T9. These are technically age-indeterminate but likely old given the lack of paravertebral soft tissue swelling. IMPRESSION: 1. Mild superior endplate compression deformities at T1, T6, T9. These are technically age-indetermi eric but likely old given the lack of paravertebral soft tissue swelling. 2. Otherwise, no acute process within the chest. 3. Small hiatus hernia with mild thickening of the distal esophagus. This may represent a nonspecific esophagitis. Electronically signed by: Delano Murry M.D. 03/04/2019 3:45 PM
--- NOTE | 2019-03-04 15:51 | CT Scan Report ---
CT SCAN OF THE ABDOMEN AND PELVIS WITH IV CONTRAST CLINICAL HISTORY: Trauma. COMPARISON STUDY: Abdominal CT dated 06/26/2017. TECHNIQUE: Following the IV administration of 95 cc of Optiray 320, CT scan of the abdomen and pelvi s is performed from the lung bases to the proximal femora. Images are reviewed in the axial, sagittal , and coronal planes. IV contrast was administered without complication. A dose lowering technique wa s utilized adhering to the principles of ALARA. FINDINGS: Lung bases: The heart is normal in size and without pericardial effusion. There are coronary artery c alcifications. A small hiatal hernia is noted. There are circumferential wall thickening in the dista l esophagus. No airspace consolidation, pleural effusion, or pneumothorax is seen at the lung bases. Liver: The contrast-enhanced liver is normal in size and contour. The liver demonstrates diffusely di minished attenuation consistent with hepatic steatosis. There is no intrahepatic biliary ductal dilat ation. The hepatic veins and portal veins are patent. Gallbladder: Unremarkable. Spleen: Normal in size and attenuation. Pancreas: The pancreas is atrophic. There is diffuse parenchymal calcification consistent with chroni c pancreatitis. There is also chronic dilatation of the pancreatic duct. Adrenal glands: Unremarkable. Kidneys: The contrast enhanced kidneys demonstrate mild cortical atrophy and are without hydronephros is. The kidneys enhance symmetrically. Abdominal vasculature: The abdominal aorta is normal in course and caliber noting moderate to advance d atherosclerotic calcification. Bowel: There is mild colonic diverticulosis without CT evidence of acute diverticulitis. No bowel obs truction is seen. The appendix is well-visualized and normal. There are tethered loops of adjacent l eft colon identified in the left lower quadrant on image #[id number]. This is unchanged from 06/26/2017, and may represent postinflammatory change with colocolonic fistula secondary to previous diverticulitis. Peritoneum: There is no intraperitoneal free air or abdominal ascites. Lymphadenopathy: None. Pelvic viscera: The bladder is decompressed around a Campos catheter and not well evaluated. Foci of i ntraluminal gas are likely related to instrumentation. The uterus is normal as imaged. A 5.3 cm cyst is noted in the right ovary on image #[id number]. Additional follicles are seen bilaterally. A dilated tubul ar structure in the right adnexa may represent hydrosalpinx. Skeletal structures: The skeletal structures are osteopenic. The lumbosacral spine and bony pelvis ap pear intact. There is a mild and age indeterminant superior endplate compression deformity of T9. The re are healed bilateral rib fractures. No lytic or blastic lesions are seen. IMPRESSION: 1. There is no evidence of solid organ injury in the abdomen or pelvis. 2. There is mild colonic diverticulosis without CT evidence of acute diverticulitis. 3. There are tethered loops of the left colon identified in the left lower quadrant, likely represent postinflammatory change with possible colocolonic fistula. This is unchanged from 06/26/2017 and may be related to previous diverticulitis. Nonemergent GI follow-up is recommended. 4. A dilated tubular structure in the right adnexa likely represents hydrosalpinx. 5. There is a 5.3 cm simple appearing right ovarian cyst. 6. Changes of chronic pancreatitis are similar to previous. 7. There is a small hiatal hernia, with circumferential wall thickening seen in the distal esophagus. Correlate clinically for evidence of esophagitis. 8. Hepatic steatosis. 9. Additional findings as above. Electronically signed by: Lauro Nj M.D. 03/04/2019 3:49 PM
--- NOTE | 2019-03-04 16:00 | CT Scan Report ---
CT SCAN OF THE LEFT ANKLE WITHOUT IV CONTRAST CLINICAL HISTORY: Left ankle fracture/dislocation. COMPARISON STUDY: Radiographs of left ankle dated 03/04/2019. TECHNIQUE: CT scan of the left ankle is performed from the distal tibia and fibula to the foot. Imag es are reviewed in the axial, sagittal, and coronal planes. IV contrast was not administered for this examination. 3-D reformats are created and assessed. A dose lowering technique was utilized adherin g to the principles of ALARA. CT DOSE: 165.84 mGy.cm FINDINGS: The examination is performed through a cast. The skeletal structures are well mineralized. There is a comminuted spiral fracture of the lateral malleolus with numerous distracted fragments. Th ere are avulsed fracture fragments arising from the posterolateral aspect aspect of the posterior tib ial plafond. There may also be tiny avulsed fragments arising from the medial malleolus, with numerou s small fragments identified within the joint space. There is 1.4 cm of lateral distraction of the ta sravanthi at the tibiotalar articulation. The talus and calcaneus appear intact. There is an ankle joint ef fusion. Significant soft tissue edema is present around the ankle and the hindfoot. There are numerou s foci of superficial and deep soft tissue gas, likely representing open fracture. The Achilles tendo n is intact as imaged. No large hematoma is identified. IMPRESSION: 1. Left ankle fracture/dislocation as above. 2. Numerous foci of subcutaneous gas suggest open fracture. Electronically signed by: Lauro Nj M.D. 03/04/2019 3:59 PM
--- NOTE | 2019-03-04 16:00 | Orthopedic Consultation ---
Date of Consultation March 04, 2019 Assessment & Plan (1) Bimalleolar ankle fracture: The patient sustained a fracture dislocation of the left ankle. She had a 12 cm dorsal laceration on the medial side ankle and the ankle joint was open to the environment for unknown period of time. Per the patient it was this morning but with her known alcohol abuse this information is unreliable as uncertain how long she was trying with her fracture dislocation. The ankle was irrigated by the emergency room attending physician and then ankle was reduced and splinted. The surgical plan will be for irrigation debridement of the ankle joint closure of the laceration and then spanning external fixation. I would recommend extremity sensation at this time as we are uncertain how long the wound was open we will want to ensure there is not any contamination and placement of any screws. She will need staged fixation at a later date. Risk benefits alternatives of surgery were discussed with the patient and her mother and they wish to proceed. History of Present Illness Reason for Consultation: Open left ankle fracture History of Present Illness The patient is a 53-year-old female with known history of alcohol abuse. Her mother checks on her daily. She was checked on yesterday and was okay. The mother checked on the patient again this afternoon and found the patient with a fractured and dislocated ankle block on the floor. Patient states that she tripped over her dog tripped over the stairs. She was unable to call for help as her cell phone apparently had . It is unknown how long she was actually down and the injury actually open. Allergies Allergy/AdvReac Type Severity Reaction Status Date / Time No Known Allergies Allergy Verified 03/04/19 14:51 Home Medications Home Medications Medication Instructions Recorded Confirmed Type duloxetine [Cymbalta] 60 mg PO QAM 08/13/18 03/04/19 History folic acid 1 mg PO QAM 08/13/18 03/04/19 History gabapentin 300 mg PO TID 08/13/18 03/04/19 History hydroxyzine pamoate [Vistaril] 50 mg PO BID PRN 08/13/18 03/04/19 History vitamin B complex 1 tab PO QAM 08/13/18 03/04/19 History ascorbic acid (vitamin C) [Vitamin 100 mg PO QAM 02/22/19 03/04/19 History C] cholecalciferol (vitamin D3) 5,000 unit PO QAM 02/22/19 03/04/19 History [Vitamin D3] cyanocobalamin (vitamin B-12) 1,000 mcg PO QAM 02/22/19 03/04/19 History [Vitamin B-12] duloxetine 20 mg PO DAILY 02/22/19 03/04/19 History ergocalciferol (vitamin D2) 50,000 unit PO WK 02/22/19 03/04/19 History [Vitamin D2] [id number] [Creon] 1 cap PO TIDM 02/22/19 03/04/19 History Patient History Medical History Anxiety (Chronic) HAS UPCOMING LALA WITH PSYCH Depression (Chronic) HAS UPCOMING LALA WITH PSYCH Neuropathy (Chronic) OF FEET Nicotine dependence (Chronic) Alcohol withdrawal seizure (Resolved) NOT REPORTED BY PATIENT AT TIME OF PAT CALL - NOTED IN EMR PREVIOUSLY Abnormal TSH Abnormal blood sugar A1C LEVELS FLUCTUATE Bowel habit changes STARTED 1 YR AGO/LOOSE STOOLS AFTER EATING Chronic pancreatitis Cirrhosis of liver "COMPROMISED LIVER" Diabetes mellitus TYPE 2 "SECONDARY" History of alcohol consumption History of dizziness 2 WEEKS AGO, DIZZINESS AND NAUSEA, DENIES FEVER - HAS FULLY RESOLVED/EDU PROVIDED History of fracture TAILBONE - FLARES UP WITH WEATHER CHANGES IPMN (intraductal papillary mucinous neoplasm) Insomnia Lipoma No family history of adverse response to anesthesia Pancreatic insufficiency Polycystic ovarian syndrome Vitamin D deficiency Surgical History History of tooth extraction Family History Other Family history of breast cancer in mother Family history of breast cancer in sister Social History Preferred Language: Ukrainian Communication Ability: Effective Beliefs That Will Affect Care: None marital status: Current Living Situation: Alone Feels Safe at Home: Yes Smoking Status: Current every day smoker Tobacco Type: cigarettes Cigarettes Per Day: 1PPD - ADVISED NPO Hx Alcohol Use: Yes Alcohol type: wine Hx Substance Use: No Physical Exam Constitutional: She is awake and responding to questions Eyes: PERRL, conjunctivae normal, anicteric sclerae Neck: Supple Respiratory: Clear Cardiovascular: Regular rate and rhythm Musculoskeletal: Left lower extremity: The ankle is splinted. Light touch sensation in the large and small toes was intact. Cap refill is less than 2 seconds. She is able to wiggle the toes. There is a dressed wound on the medial side. Measures about 12 cm in size Results & Data Vital Signs (Past 12 Hours) Vital Signs Temp Pulse Resp BP Pulse Ox 03/04/19 15:50 105 H 164/97 H 97 03/04/19 15:45 106 H 179/101 H 98 03/04/19 15:41 106 H 99 03/04/19 15:40 106 H 187/103 H 99 03/04/19 15:35 105 H 169/94 H 96 03/04/19 15:32 107 H 165/102 H 95 03/04/19 15:31 117 H 03/04/19 15:00 111 H 168/100 H 98 03/04/19 14:55 108 H 177/100 H 100 03/04/19 14:51 105 H 100 03/04/19 14:50 107 H 170/100 H 100 03/04/19 14:46 103 H 167/97 H 100 03/04/19 14:41 105 H 100 03/04/19 14:40 102 H 177/106 H 100 03/04/19 14:35 103 H 178/100 H 100 03/04/19 14:31 101 H 100 03/04/19 14:30 105 H 180/124 H 100 03/04/19 14:25 101 H 174/98 H 100 03/04/19 14:21 104 H 100 03/04/19 14:20 103 H 176/109 H 100 03/04/19 14:16 103 H 175/110 H 100 03/04/19 14:11 108 H 167/101 H 100 03/04/19 14:10 109 H 100 03/04/19 14:05 113 H 166/107 H 03/04/19 14:01 106 H 99 03/04/19 14:00 112 H 158/100 H 62 L 03/04/19 13:55 119 H 163/103 H 98 03/04/19 13:51 128 H 72 L 03/04/19 13:50 105 H 144/92 H 96 03/04/19 13:45 114 H 172/113 H 03/04/19 13:41 109 H 03/04/19 13:40 103 H 175/105 H 03/04/19 13:35 108 H 158/115 H 03/04/19 13:34 113 H 148/115 H 03/04/19 13:32 112 H 03/04/19 13:31 116 H 21 172/136 H 03/04/19 13:26 118 H 20 150/112 H 03/04/19 13:20 37.3 C 117 H 24 150/112 H 93 (1) Bimalleolar ankle fracture Encounter type: initial encounter Fracture type: open Laterality: left
[2019-03-04] MEDS ORDERED: BACITRACIN INJ 50,000 UNIT VIAL ONE (16:23)
--- NOTE | 2019-03-04 16:24 | Anesthesiology Consultation ---
Date of Service March 04, 2019 Assessment & Plan (1) Encounter for pre-operative examination: Chart Review Chart Review: Acceptable Risk for Surgery and Patient NOT seen in Pre Admission Testing Consults Requested none History Surgery Operation Date: 03/04/19 14:40 Proposed Procedures p Left Ankle Incision and Drainage, Exfix Application - Riki Dao MD s External Fixator Application - Riki Dao MD Height/Weight Height: 5 ft 6 in Weight: 65 kg Allergies Allergy/AdvReac Type Severity Reaction Status Date / Time No Known Allergies Allergy Verified 03/04/19 14:51 Medications Home Medications Medication Instructions Recorded Confirmed Last Taken duloxetine [Cymbalta] 60 mg PO QAM 08/13/18 03/04/19 03/04/19 folic acid 1 mg PO QAM 08/13/18 03/04/19 03/03/19 gabapentin 300 mg PO TID 08/13/18 03/04/19 03/03/19 hydroxyzine pamoate [Vistaril] 50 mg PO BID PRN 08/13/18 03/04/19 Unknown vitamin B complex 1 tab PO QAM 08/13/18 03/04/19 03/03/19 ascorbic acid (vitamin C) [Vitamin 100 mg PO QAM 02/22/19 03/04/19 03/03/19 C] cholecalciferol (vitamin D3) 5,000 unit PO QAM 02/22/19 03/04/19 03/03/19 [Vitamin D3] cyanocobalamin (vitamin B-12) 1,000 mcg PO QAM 02/22/19 03/04/19 03/03/19 [Vitamin B-12] duloxetine 20 mg PO DAILY 02/22/19 03/04/19 03/03/19 ergocalciferol (vitamin D2) 50,000 unit PO WK 02/22/19 03/04/19 02/26/19 [Vitamin D2] [id number] [Creon] 1 cap PO TIDM 02/22/19 03/04/19 03/03/19 Active Medications Generic Name Dose Route Start Last Admin Trade Name Freq PRN Reason Stop Dose Admin Ioversol 95 ml 03/04/19 15:22 03/04/19 15:22 Optiray 320 100ml IV 03/08/19 15:21 95 ml ONCE PRN Administration Interaction Checking Past Medical History Medical History Anxiety (Chronic) HAS UPCOMING LALA WITH PSYCH Depression (Chronic) HAS UPCOMING LALA WITH PSYCH Neuropathy (Chronic) OF FEET Nicotine dependence (Chronic) Alcohol withdrawal seizure (Resolved) NOT REPORTED BY PATIENT AT TIME OF PAT CALL - NOTED IN EMR PREVIOUSLY Abnormal TSH Abnormal blood sugar A1C LEVELS FLUCTUATE Bowel habit changes STARTED 1 YR AGO/LOOSE STOOLS AFTER EATING Chronic pancreatitis Cirrhosis of liver "COMPROMISED LIVER" Diabetes mellitus TYPE 2 "SECONDARY" History of alcohol consumption History of dizziness 2 WEEKS AGO, DIZZINESS AND NAUSEA, DENIES FEVER - HAS FULLY RESOLVED/EDU PROVIDED History of fracture TAILBONE - FLARES UP WITH WEATHER CHANGES IPMN (intraductal papillary mucinous neoplasm) Insomnia Lipoma No family history of adverse response to anesthesia Pancreatic insufficiency Polycystic ovarian syndrome Vitamin D deficiency Exercise / Class Metabolic Activity III < 4 Walking/Shop/Light housework Past Family History Family History Other Family history of breast cancer in mother Family history of breast cancer in sister Past Surgical History Surgical History History of tooth extraction Past Anesthesia History No Hx of Anesthesia Complications and No Family Hx of Anesthesia Complications History of PONV No Hx of PONV and No Hx of Motion Sickness Social History Smoking Status: Current every day smoker tobacco type: cigarettes Smoking cigarettes per day: 1PPD - ADVISED NPO Hx Alcohol Use: Yes Alcohol type: wine Hx Substance Use: No substance use type: does not use Physical Exam Vital Signs Last Vital Signs Temp 37.3 C 03/04/19 13:20 Pulse 105 H 03/04/19 15:50 Resp 21 03/04/19 13:31 BP 164/97 H 03/04/19 15:50 Pulse Ox 97 03/04/19 15:50 Testing Laboratory Results 03/04/19 14:24 03/04/19 03/04/19 03/04/19 14:24 14:24 14:54 PT 9.9 INR 1.0 APTT 25.1 Blood Type Cancelled B Negative Antibody Screen Cancelled NEGATIVE Electrocardiogram Date: 03/04/19 Findings: + ST @ (108) Poor data quality, interpretation may be adversely affected Sinus tachycardia Possible Left atrial enlargement Nonspecific ST abnormality Abnormal ECG When compared with ECG of 13-AUG-2018 14:22, No significant change was found Other Testing March 04, 2019. CHEST CT WITH CONTRAST CT DOSE: HISTORY: trauma TECHNIQUE: Multiaxial CT images of the chest were performed following the intravenous administration of contrast. A dose lowering technique was utilized adhering to the principles of ALARA. COMPARISON: None. FINDINGS: The central airways are patent. No pneumothorax. No pleural effusions. No focal lung consolidations. Multiple old, healed bilateral rib fractures. No acute fractures identified within the chest. No mediastinal hematoma. The heart is normal in size. Small hiatus hernia. Mild thickening of the distal esophagus. No mediastinal or hilar lymphadenopathy. The main pulmonary arteries are patent. Normal caliber thoracic aorta. Mild superior endplate compression deformities at T1, T6, T9. These are technically age-indeterminate but likely old given the lack of paravertebral soft tissue swelling. IMPRESSION: 1. Mild superior endplate compression deformities at T1, T6, T9. These are technically age-indeterminate but likely old given the lack of paravertebral sof t tissue swelling. 2. Otherwise, no acute process within the chest. 3. Small hiatus hernia with mild thickening of the distal esophagus. This may represent a nonspecific esophagitis.
--- NOTE | 2019-03-04 16:26 | Emergency Department Note ---
Entered by Aileen Nuñez acting as a scribe for History of Present Illness General Chief complaint: Fall Stated complaint: fall/ open ankle fx Source: patient, family and EMS Mode of arrival: EMS Limitations: no limitations History of Present Illness Provider complaint: fall Onset (ago): hour(s) (last night) Location: ankle and left Pain Consistency: + other (episode) Quality: + other (tripped) Associated symptoms: + other (ankle injury) Treatments prior to arrival: other (Fentanyl and Zofran) The patient is a 53 year old female with a past medical history of alcohol abuse that presents to the ER via EMS following a fall that occurred last night. The patient reports that she tripped over her dog and fell down her stairs at home, injuring her left ankle. She states that her cellphone had no battery so she was unable to call for help. EMS notes that the patient was found lying on the floor by her mother. EMS also reports that they gave the patient Fentanyl and Zofran en route. The patient states that she had some crackers and water earlier today. The mother notes that the patient has a history of alcohol abuse and has not drank alcohol for 2 days. Mother believes that the incident did occur approximately 12 to 15 hours ago. She does not believe she fell down the stairs rather tripped over the dog at the bottom of the stairs and landed there. Mother states there is a good amount of blood throughout the house. Home Medications Home Medications Medication Instructions Recorded Confirmed Type duloxetine [Cymbalta] 60 mg PO QAM 08/13/18 03/04/19 History folic acid 1 mg PO QAM 08/13/18 03/04/19 History gabapentin 300 mg PO TID 08/13/18 03/04/19 History hydroxyzine pamoate [Vistaril] 50 mg PO BID PRN 08/13/18 03/04/19 History vitamin B complex 1 tab PO QAM 08/13/18 03/04/19 History ascorbic acid (vitamin C) [Vitamin 100 mg PO QAM 02/22/19 03/04/19 History C] cholecalciferol (vitamin D3) 5,000 unit PO QAM 02/22/19 03/04/19 History [Vitamin D3] cyanocobalamin (vitamin B-12) 1,000 mcg PO QAM 02/22/19 03/04/19 History [Vitamin B-12] duloxetine 20 mg PO DAILY 02/22/19 03/04/19 History ergocalciferol (vitamin D2) 50,000 unit PO WK 02/22/19 03/04/19 History [Vitamin D2] [id number] [Creon] 1 cap PO TIDM 02/22/19 03/04/19 History Allergies Allergy/AdvReac Type Severity Reaction Status Date / Time No Known Allergies Allergy Verified 03/04/19 14:51 Past Med/Surg History Medical History Anxiety (Chronic) HAS UPCOMING LALA WITH PSYCH Depression (Chronic) HAS UPCOMING LALA WITH PSYCH Neuropathy (Chronic) OF FEET Nicotine dependence (Chronic) Alcohol withdrawal seizure (Resolved) NOT REPORTED BY PATIENT AT TIME OF PAT CALL - NOTED IN EMR PREVIOUSLY Abnormal TSH Abnormal blood sugar A1C LEVELS FLUCTUATE Bowel habit changes STARTED 1 YR AGO/LOOSE STOOLS AFTER EATING Chronic pancreatitis Cirrhosis of liver "COMPROMISED LIVER" Diabetes mellitus TYPE 2 "SECONDARY" History of alcohol consumption History of dizziness 2 WEEKS AGO, DIZZINESS AND NAUSEA, DENIES FEVER - HAS FULLY RESOLVED/EDU PROVIDED History of fracture TAILBONE - FLARES UP WITH WEATHER CHANGES IPMN (intraductal papillary mucinous neoplasm) Insomnia Lipoma No family history of adverse response to anesthesia Pancreatic insufficiency Polycystic ovarian syndrome Vitamin D deficiency Surgical History History of tooth extraction Family History Other Family history of breast cancer in mother Family history of breast cancer in sister Social History Preferred Language: Ukrainian Communication Ability: Effective Beliefs That Will Affect Care: None marital status: Current Living Situation: Alone Other Information That Helps Us Care for You: No Feels Safe at Home: Yes Smoking Status: Current every day smoker Tobacco Type: cigarettes Cigarettes Per Day: 1PPD - ADVISED NPO Do You Dip or Chew Tobacco: No Second Hand Exposure: Yes Tobacco Cessation Education Requested by Patient: No Hx Alcohol Use: Yes Alcohol type: wine Hx Substance Use: No Review of Systems See HPI for pertinent positives & negatives. and A total of 10 systems reviewed and were otherwise negative Physical Exam Vital Signs Vital Signs - 24 hr 03/04/19 15:31 03/04/19 15:32 03/04/19 15:35 Temperature Temperature Source End-Tidal CO2 Pulse Rate 117 H 107 H 105 H Pulse Rate [Apical] Pulse Rate from SpO2 Sensor 108 H 105 H Pulse Rhythm [Apical] Respiratory Rate Respiratory Effort / Characteristics Respiratory Depth Respiratory Pattern Blood Pressure 165/102 H 169/94 H Blood Pressure [Right Arm] Blood Pressure Mean 123 119 Blood Pressure Mean [Right Arm] Blood Pressure Position [Right Arm] Pulse Oximetry 95 96 Oxygen Delivery Method Room Air Room Air Oxygen Flow Rate 03/04/19 15:40 03/04/19 15:41 03/04/19 15:45 Temperature Temperature Source End-Tidal CO2 Pulse Rate 106 H 106 H 106 H Pulse Rate [Apical] Pulse Rate from SpO2 Sensor 106 H 106 H 106 H Pulse Rhythm [Apical] Respiratory Rate Respiratory Effort / Characteristics Respiratory Depth Respiratory Pattern Blood Pressure 187/103 H 179/101 H Blood Pressure [Right Arm] Blood Pressure Mean 131 127 Blood Pressure Mean [Right Arm] Blood Pressure Position [Right Arm] Pulse Oximetry 99 99 98 Oxygen Delivery Method Room Air Room Air Room Air Oxygen Flow Rate 03/04/19 15:50 03/04/19 16:30 03/04/19 18:32 Temperature 36.4 C L 36.2 C L Temperature Source Temporal Artery Scan Temporal Artery Scan End-Tidal CO2 20 Pulse Rate 105 H Pulse Rate [Apical] 106 H 85 Pulse Rate from SpO2 Sensor 106 H Pulse Rhythm [Apical] Regular Regular Respiratory Rate 18 12 Respiratory Effort / Characteristics Non-Labored Non-Labored Respiratory Depth Normal Normal Respiratory Pattern Regular Regular Blood Pressure 164/97 H Blood Pressure [Right Arm] 170/102 H 170/100 H Blood Pressure Mean 119 Blood Pressure Mean [Right Arm] 124 123 Blood Pressure Position [Right Arm] Sitting Lying Pulse Oximetry 97 98 100 Oxygen Delivery Method Room Air Room Air Oxymask Oxygen Flow Rate 5 03/04/19 18:40 03/04/19 18:50 03/04/19 19:00 Temperature Temperature Source End-Tidal CO2 Pulse Rate Pulse Rate [Apical] 83 79 75 Pulse Rate from SpO2 Sensor Pulse Rhythm [Apical] Regular Regular Regular Respiratory Rate 14 16 16 Respiratory Effort / Characteristics Non-Labored Non-Labored Non-Labored Respiratory Depth Normal Normal Normal Respiratory Pattern Regular Regular Regular Blood Pressure Blood Pressure [Right Arm] 171/107 H 177/105 H 158/103 H Blood Pressure Mean Blood Pressure Mean [Right Arm] 128 129 121 Blood Pressure Position [Right Arm] Lying Lying Lying Pulse Oximetry 100 97 94 Oxygen Delivery Method Oxymask Oxymask Oxymask Oxygen Flow Rate 5 5 5 03/04/19 19:10 03/04/19 19:20 Temperature Temperature Source End-Tidal CO2 Pulse Rate Pulse Rate [Apical] 75 82 Pulse Rate from SpO2 Sensor Pulse Rhythm [Apical] Regular Regular Respiratory Rate 16 16 Respiratory Effort / Characteristics Non-Labored Non-Labored Respiratory Depth Normal Normal Respiratory Pattern Regular Regular Blood Pressure Blood Pressure [Right Arm] 168/125 H 168/93 H Blood Pressure Mean Blood Pressure Mean [Right Arm] 139 118 Blood Pressure Position [Right Arm] Lying Lying Pulse Oximetry 96 96 Oxygen Delivery Method Oxymask Oxymask Oxygen Flow Rate 5 5 Vital signs reviewed. General: Thin and malnoursihed appearing. HEENT: No scleral icterus, PERRLA, neck supple. Atraumatic. Cardiovascular: Regular rate and rhythm, no extra sounds. Pulmonary: Clear to auscultation bilaterally, normal work of breathing. Abdomen: Soft, nontender, nondistended, positive bowel sounds. Musculoskeletal: No peripheral edema. Gross deformity with open fracture of the left ankle, 12 cm medial malleolus laceration with the mortise exposed. No palpable pulse over the dorsalis pedis but toes are pink and foot is warm. Neurologic: Patient awake alert and oriented x 3, full strength in all 4 extremities. Cranial nerves 2 through 12 grossly intact. Skin: Warm, dry, no rash Procedures Procedural Sedation Indication: fracture/dislocation reduction ASA Class: II (ETOH dependent) Time of Last PO Intake: 07:00 (somewhat unclear, but many hours since crackers and water) Preparation: child monitor applied, pulse oximeter, capnometry used, supplemental O2 applied, suction/airway equipment at bedside and IV secured Fentanyl: IV IV Propofol dose (mg): 250 Patient Tolerated Procedure: well Complications: none Course 1323: Past medical records reviewed. The patient was evaluated in room A2. A complete history and physical examination was performed. 1340: Fracture reduction performed. 1356: I discussed the patient's case with Dr. Erickson - Orthopedic Surgery. 1411: I reviewed the patient's case with Shivam Talbert PA-C [facility]. 1430: I discussed the patient's case with Dr. Dao Orthopedic Surgery. 1500: I reviewed the patient's case with Dr. Carrillo - [facility] Hospitalist. Administered Medications Acetaminophen (Tylenol) 1,000 mg PO Q8 ARPIT Stop: 04/03/19 21:59 Last Admin: 03/05/19 06:10 Dose: 1,000 mg Documented by: [id number] Admin: 03/04/19 21:38 Dose: 1,000 mg Documented by: [id number] Lipase/Protease/Amylase (Pancreaze (Lipase 4200u)) 1 cap PO AC ARPIT Stop: 04/03/19 20:59 Last Admin: 03/05/19 12:21 Dose: 1 cap Documented by: [id number] Admin: 03/05/19 08:28 Dose: 1 cap Documented by: [id number] Admin: 03/04/19 21:38 Dose: 1 cap Documented by: [id number] Aspirin (Ecotrin Ectab) 81 mg PO BID ARPIT Stop: 04/04/19 08:59 Last Admin: 03/05/19 08:35 Dose: 81 mg Documented by: [id number] Docusate Sodium (Colace) 100 mg PO BID ARPIT Stop: 04/03/19 20:59 Last Admin: 03/05/19 08:28 Dose: 100 mg Documented by: [id number] Admin: 03/04/19 21:38 Dose: 100 mg Documented by: [id number] Duloxetine HCl (Cymbalta) 60 mg PO QAM ARPIT Stop: 04/04/19 08:59 Last Admin: 03/05/19 08:28 Dose: 60 mg Documented by: [id number] Folic Acid (Folvite) 1 mg PO QAM ARPIT Stop: 04/04/19 08:59 Last Admin: 03/05/19 08:28 Dose: 1 mg Documented by: [id number] Gabapentin (Neurontin) 300 mg PO TID ARPIT Stop: 04/03/19 20:59 Last Admin: 03/05/19 08:28 Dose: 300 mg Documented by: [id number] Admin: 03/04/19 21:38 Dose: 300 mg Documented by: [id number] Hydromorphone HCl (Dilaudid) 0.5 mg IV Q4H PRN PRN Reason: Pain Stop: 03/18/19 20:28 Last Admin: 03/04/19 21:07 Dose: 0.5 mg Documented by: [id number] Multivitamins (Multivitamin Tab) 1 tab PO QAM [facility] Stop: 04/04/19 08:59 Last Admin: 03/05/19 08:28 Dose: 1 tab Documented by: [id number] Oxycodone HCl (Roxicodone Immediate Rel) 5 - 10 mg PO Q4H PRN PRN Reason: Pain Stop: 03/18/19 20:28 Last Admin: 03/05/19 04:58 Dose: 10 mg Documented by: [id number] Sennosides (Senokot) 17.2 mg PO HS [facility] Stop: 04/03/19 20:59 Last Admin: 03/04/19 21:38 Dose: 17.2 mg Documented by: [id number] Discontinued Medications Bacitracin (Bacitracin) Confirm Administered Dose 100,000 units .ROUTE .STK-MED ONE Stop: 03/04/19 16:24 Last Admin: 03/04/19 17:40 Dose: 100,000 units Documented by: [id number] Diphtheria/Pertussis/Tetanus Vacc (Adacel) 0.5 ml IM .ONCE ONE Stop: 03/04/19 14:03 Last Admin: 03/04/19 14:43 Dose: 0.5 ml Documented by: [id number] Fentanyl Citrate (Fentanyl Citrate) Confirm Administered Dose 100 mcg .ROUTE .STK-MED ONE Stop: 03/04/19 13:30 Last Admin: 03/04/19 14:40 Dose: 100 mcg Documented by: [id number] Fentanyl Citrate (Fentanyl Citrate) 100 mcg IV NOW STA Stop: 03/04/19 13:30 Last Admin: 03/04/19 14:41 Dose: Not Given Documented by: [id number] Gentamicin Sulfate (Garamycin) Confirm Administered Dose 40 mg .ROUTE .STK-MED ONE Stop: 03/04/19 17:30 Last Admin: 03/04/19 17:30 Dose: 80 mg Documented by: [id number] Hydralazine HCl (Hydralazine Hcl) 5 mg IV NOW ONE Stop: 03/04/19 19:10 Last Admin: 03/04/19 19:12 Dose: 5 mg Documented by: [id number] Hydralazine HCl (Hydralazine Hcl) Confirm Administered Dose 20 mg .ROUTE .STK- MED ONE Stop: 03/04/19 19:10 Last Admin: 03/04/19 21:01 Dose: Not Given Documented by: [id number] Hydromorphone HCl (Dilaudid) Confirm Administered Dose 1 mg .ROUTE .STK-MED ONE Stop: 03/04/19 14:01 Last Admin: 03/04/19 14:42 Dose: 1 mg Documented by: [id number] Hydromorphone HCl (Dilaudid) 1 mg IV NOW STA Stop: 03/04/19 14:04 Last Admin: 03/04/19 15:00 Dose: 1 mg Documented by: [id number] Sodium Chloride (Nss 1000ml) 1,000 mls @ 999 mls/hr IV .Q1H1M ARPIT Stop: 03/04/19 14:30 Last Infusion: 03/04/19 23:44 Dose: 0 mls/hr Documented by: [id number] Admin: 03/04/19 14:41 Dose: 999 mls/hr Documented by: [id number] Cefazolin Sodium (Ancef 1000mg) 1,000 mg in 7.5 mls @ 2.5 mls/min IV NOW STA Stop: 03/04/19 13:38 Last Admin: 03/04/19 14:42 Dose: 2.5 mls/min Documented by: [id number] Lorazepam (Ativan) 1 mg in 2 mls @ 2 mls/min IV NOW STA Stop: 03/04/19 14:04 Last Admin: 03/04/19 14:44 Dose: 1 mls/min Documented by: [id number] Cefazolin Sodium (Ancef 1000mg) 1,000 mg in 7.5 mls @ 2.5 mls/min IV NOW STA Stop: 03/04/19 14:04 Last Admin: 03/04/19 14:44 Dose: 2.5 mls/min Documented by: [id number] Lorazepam (Ativan) 2 mg in 4 mls @ 4 mls/min IV NOW STA Stop: 03/04/19 15:21 Last Admin: 03/04/19 16:04 Dose: 4 mls/min Documented by: [id number] Multivitamins 10 ml/ Thiamine HCl 100 mg/ Folic Acid 1 mg/Sodium Chloride 1,011.2 mls @ 1,011.2 mls/hr IV .Q1H ARPIT Stop: 03/04/19 16:29 Last Admin: 03/04/19 21:00 Dose: Not Given Documented by: [id number] Cefazolin Sodium (Ancef 1000mg) 1,000 mg in 7.5 mls @ 2.5 mls/min IV ONCE ONE Stop: 03/04/19 17:40 Last Admin: 03/04/19 17:10 Dose: 2.5 mls/min Documented by: [id number] Cefazolin Sodium (Ancef 1000mg) 1,000 mg in 7.5 mls @ 2.5 mls/min IV Q8H ARPIT; Protocol Stop: 03/05/19 10:02 Last Admin: 03/05/19 10:45 Dose: 2.5 mls/min Documented by: [id number] Admin: 03/05/19 01:33 Dose: 2.5 mls/min Documented by: [id number] Sodium Chloride (Nss 1000ml) 1,000 mls @ 100 mls/hr IV .Q10H ARPIT Stop: 03/05/19 17:28 Last Infusion: 03/05/19 10:08 Dose: 0 mls/hr Documented by: [id number] Admin: 03/04/19 21:07 Dose: 100 mls/hr Documented by: [id number] Ioversol (Optiray 320 100ml) 95 ml IV ONCE PRN PRN Reason: Interaction Checking Stop: 03/08/19 15:21 Last Admin: 03/04/19 15:22 Dose: 95 ml Documented by: [id number] Labetalol HCl (Normodyne) 5 mg IV Q5M PRN PRN Reason: PACU Use-SBP>160 or DBP>100 Stop: 03/04/19 22:07 Last Admin: 03/04/19 18:57 Dose: 5 mg Documented by: [id number] Cosigned by: [id number] Admin: 03/04/19 18:52 Dose: 5 mg Documented by: [id number] Cosigned by: [id number] Admin: 03/04/19 18:47 Dose: 5 mg Documented by: [id number] Cosigned by: [id number] Lorazepam (Ativan) Confirm Administered Dose 2 mg .ROUTE .STK-MED ONE Stop: 03/04/19 14:03 Last Admin: 03/04/19 14:47 Dose: Not Given Documented by: [id number] Ondansetron HCl (Zofran) Confirm Administered Dose 4 mg .ROUTE .STK-MED ONE Stop: 03/04/19 13:34 Last Admin: 03/04/19 14:42 Dose: 4 mg Documented by: [id number] Propofol (Diprivan) Confirm Administered Dose 200 mg IV .STK-MED ONE Stop: 03/04/19 13:28 Last Admin: 03/04/19 14:39 Dose: 200 mg Documented by: [id number] Cosigned by: [id number] Propofol (Diprivan) 100 mg IV NOW STA Stop: 03/04/19 13:30 Last Admin: 03/04/19 14:40 Dose: 100 mg Documented by: [id number] Cosigned by: [id number] Medical Decision Making Differential Diagnosis Differential diagnosis includes: fracture, dislocation, neurovascular compromise, compartment syndrome, soft tissue injury, as well as others were entertained. Medical Records Attestation: I reviewed the patient's medical records. Home Medications Current Medication List: was personally reviewed by me Laboratory Data Attestation: I reviewed the patient's lab results. Result diagrams: 03/05/19 06:46 03/05/19 06:46 Lab Results 03/04/19 03/04/19 03/04/19 Range/Units 14:24 14:24 14:24 WBC 10.13 (4.8-10.8) K/uL RBC 3.76 L (4.2-5.4) M/uL Hgb 11.1 L (12.0-16.0) g/dL Hct 31.7 L (37-47) % MCV 84.3 (80-100) fL MCH 29.5 (25-34) pg MCHC 35.0 (32-36) g/dL RDW Std Deviation 49.8 H (36.4-46.3) fL RDW Coeff of Ethel 16.3 H (11.5-14.5) % Plt Count 254 (130-400) K/uL MPV 8.9 (7.4-10.4) fL Immature Gran % (Auto) 0.4 % Neut % (Auto) 84.7 % Lymph % (Auto) 7.2 % [place] % (Auto) 7.5 % Eos % (Auto) 0.0 % Baso % (Auto) 0.2 % Immature Gran # (Auto) 0.04 H (0.00-0.02) K/uL Neut # (Auto) 8.58 H (1.4-6.5) K/uL Lymph # (Auto) 0.73 L (1.2-3.4) K/uL [place] # (Auto) 0.76 H (0.11-0.59) K/uL Eos # (Auto) 0.00 (0-0.5) K/uL Baso # (Auto) 0.02 (0-0.2) K/uL PT 9.9 (9.0-12.0) Seconds INR 1.0 (0.9-1.1) APTT 25.1 (21.0-31.0) Seconds PTT Ratio 0.9 Blood Type Cancelled Antibody Screen Cancelled 03/04/19 Range/Units 14:54 WBC (4.8-10.8) K/uL RBC (4.2-5.4) M/uL Hgb (12.0-16.0) g/dL Hct (37-47) % MCV (80-100) fL MCH (25-34) pg MCHC (32-36) g/dL RDW Std Deviation (36.4-46.3) fL RDW Coeff of Ethel (11.5-14.5) % Plt Count (130-400) K/uL MPV (7.4-10.4) fL Immature Gran % (Auto) % Neut % (Auto) % Lymph % (Auto) % [place] % (Auto) % Eos % (Auto) % Baso % (Auto) % Immature Gran # (Auto) (0.00-0.02) K/uL Neut # (Auto) (1.4-6.5) K/uL Lymph # (Auto) (1.2-3.4) K/uL [place] # (Auto) (0.11-0.59) K/uL Eos # (Auto) (0-0.5) K/uL Baso # (Auto) (0-0.2) K/uL PT (9.0-12.0) Seconds INR (0.9-1.1) APTT (21.0-31.0) Seconds PTT Ratio Blood Type B Negative Antibody Screen NEGATIVE Imaging Data Radiologist's Impression: Radiology results as stated below per my review and the radiologist's interpretation: XR ankle LT 2V CLINICAL HISTORY: ankle fx dislocation trauma. Pain. COMPARISON: None. DISCUSSION: Fracture dislocation left ankle. The talus is displaced medially. There is also medial displacement of the fibula in relation to the talus. The inferior aspect of the fibula is immediately superior to the talar dome. Considerable soft tissue edema IMPRESSION: Bimalleolar fracture dislocation The above report was generated using voice recognition software. It may contain grammatical, syntax or spelling errors. Electronically signed by: Jalen Farah M.D. 03/04/2019 1:50 PM LEFT ANKLE 3 VIEWS CLINICAL HISTORY: Postreduction examination. FINDINGS: 3 views of the left ankle are compared to study performed earlier the same day 03/04/2019. The skeletal structures are well mineralized. The ex amination is performed through a cast, obscuring fine bony detail. Again seen is a comminuted and distracted oblique fracture through the lateral malleolus. There is approximately 1.5 cm of lateral distraction of the talus at the tibiotalar articulation. There is also dorsal subluxation of the talus. There is also likely a posterior malleolar fracture of the tibia. There is a joint effusion. Soft tissue edema is present around the ankle. Subcutaneous emphysema suggesting open fracture. IMPRESSION: Again seen is fracture/dislocation at the ankle joint, with significantly improved alignment status post reduction. See above. Electronically signed by: Lauro Nj M.D. 03/04/2019 2:[address] SCAN OF THE ABDOMEN AND PELVIS WITH IV CONTRAST CLINICAL HISTORY: Trauma. COMPARISON STUDY: Abdominal CT dated 06/26/2017. TECHNIQUE: Following the IV administration of 95 cc of Optiray 320, CT scan of the abdomen and pelvis is performed from the lung bases to the proximal femora. Images are reviewed in the axial, sagittal, and coronal planes. IV contrast was administered without complication. A dose lowering technique was utilized adhering to the principles of ALARA. FINDINGS: Lung bases: The heart is normal in size and without pericardial effusion. There are coronary artery calcifications. A small hiatal hernia is noted. There are circumferential wall thickening in the distal esophagus. No airspace consolidation, pleural effusion, or pneumothorax is seen at the lung bases. Liver: The contrast-enhanced liver is normal in size and contour. The liver demonstrates diffusely diminished attenuation consistent with hepatic steatosis. There is no intrahepatic biliary ductal dilatation. The hepatic veins and portal veins are patent. Gallbladder: Unremarkable. Spleen: Normal in size and attenuation. Pancreas: The pancreas is atrophic. There is diffuse parenchymal calcification consistent with chronic pancreatitis. There is also chronic dilatation of the pancreatic duct. Adrenal glands: Unremarkable. Kidneys: The contrast enhanced kidneys demonstrate mild cortical atrophy and are without hydronephrosis. The kidneys enhance symmetrically. Abdominal vasculature: The abdominal aorta is normal in course and caliber noting moderate to advanced atherosclerotic calcification. Bowel: There is mild colonic diverticulosis without CT evidence of acute diverticulitis. No bowel obstruction is seen. The appendix is well-visualized and normal. There are tethered loops of adjacent left colon identified in the left lower quadrant on image #[id number]. This is unchanged from 06/26/2017, and may represent postinflammatory change with colocolonic fistula secondary to previous diverticulitis. Peritoneum: There is no intraperitoneal free air or abdominal ascites. Lymphadenopathy: None. Pelvic viscera: The bladder is decompressed around a Campos catheter and not well evaluated. Foci of intraluminal gas are likely related to instrumentation. The uterus is normal as imaged. A 5.3 cm cyst is noted in the right ovary on image #[id number]. Additional follicles are seen bilaterally. A dilated tubular structure in the right adnexa may represent hydrosalpinx. Skeletal structures: The skeletal structures are osteopenic. The lumbosacral spine and bony pelvis appear intact. There is a mild and age indeterminant superior endplate compression deformity of T9. There are healed bilateral rib fractures. No lytic or blastic lesions are seen. IMPRESSION: 1. There is no evidence of solid organ injury in the abdomen or pelvis. 2. There is mild colonic diverticulosis without CT evidence of acute diverticulitis. 3. There are tethered loops of the left colon identified in the left lower quadrant, likely represent postinflammatory change with possible colocolonic fistula. This is unchanged from 06/26/2017 and may be related to previous diverticulitis. Nonemergent GI follow-up is recommended. 4. A dilated tubular structure in the right adnexa likely represents hydrosalpinx. 5. There is a 5.3 cm simple appearing right ovarian cyst. 6. Changes of chronic pancreatitis are similar to previous. 7. There is a small hiatal hernia, with circumferential wall thickening seen in the distal esophagus. Correlate clinically for evidence of esophagitis. 8. Hepatic steatosis. 9. Additional findings as above. Electronically signed by: Lauro Nj M.D. 03/04/2019 3:49 PM Dictated: 03/04/19 1536 Transcribed: 03/04/[address] SCAN OF THE CERVICAL SPINE CLINICAL HISTORY: Trauma. COMPARISON STUDY: No priors. TECHNIQUE: CT scan of the cervical spine is performed from the skull base to the upper thoracic spine. Images are reviewed in the axial, sagittal, and coronal planes. IV contrast was not administered for this examination. A dose lowering technique was utilized adhering to the principles of ALARA. CT DOSE: 1965.14 mGy.cm FINDINGS: Skeletal structures: The skeletal structures are osteopenic. There is no evidence of fracture or subluxation involving the cervical spine. Vertebral body height and alignment are maintained. There is straightening of the cervical lo rdosis with mild reversal centered at C4. Anterior osteophytes are seen throughout. The odontoid process and lateral masses are intact. The atlantoaxial articulation is preserved noting productive degenerative change. The spinous processes appear intact. There is mild to moderate multilevel cervical spondylosis. Uncovertebral and facet arthropathy contribute to neural foraminal narrowing at several levels. There is a minimal and age indeterminant superior endplate compression deformity of T1. Intervertebral discs: There is moderate disc space narrowing at C5-C6. Mild disc space narrowing is seen at the remaining cervical levels. Central canal: A posterior disc osteophyte complex at C5-C6 may contribute to mild acquired compromise of the central canal. Soft tissues: The prevertebral and paraspinous soft tissues are within normal limits. There is atherosclerotic calcification of the carotid bulbs. Calvarium: The visualized calvarium at the skull base appears intact. Brain parenchyma: Partially visualized brain parenchyma the skull base is within normal limits. Sinuses and mastoids: The visualized paranasal sinuses are clear. The mastoid air cells are well pneumatized. Lung apices: Clear as visualized. IMPRESSION: 1. There is no evidence of fracture or subluxation involving the cervical spine. 2. There is a minimal and age indeterminant superior endplate compression de formity of T1. Correlate for point tenderness. 3. Osteopenia and spondylotic change as above. Electronically signed by: Lauro Nj M.D. 03/04/2019 3:36 PM Dictated: 03/04/19 1531 Transcribed: 03/04/[address] WITH CONTRAST CT DOSE: HISTORY: trauma TECHNIQUE: Multiaxial CT images of the chest were performed following the intravenous administration of contrast. A dose lowering technique was utilized adhering to the principles of ALARA. COMPARISON: None. FINDINGS: The central airways are patent. No pneumothorax. No pleural effusions. No focal lung consolidations. Multiple old, healed bilateral rib fractures. No acute fractures identified within the chest. No mediastinal hematoma. The heart is normal in size. Small hiatus hernia. Mild thickening of the distal esophagus. No mediastinal or hilar lymphadenopathy. The main pulmonary arteries are patent. Normal caliber thoracic aorta. Mild superior endplate compression deformities at T1, T6, T9. These are technically age-indeterminate but likely old given the lack of paravertebral soft tissue swelling. IMPRESSION: 1. Mild superior endplate compression deformities at T1, T6, T9. These are technically age-indeterminate but likely old given the lack of paravertebral soft tissue swelling. 2. Otherwise, no acute process within the chest. 3. Small hiatus hernia with mild thickening of the distal esophagus. This may represent a nonspecific esophagitis. Electronically signed by: Delano Murry M.D. 03/04/2019 3:[address]AST CT DOSE: HISTORY: trauma TECHNIQUE: Multiaxial CT images of the head were performed without the use of intravenous contrast. Automated exposure control was utilized for this study. A dose lowering technique was utilized adhering to the principles of ALARA. Comparison: Head CT 02/11/2018. Findings: The paranasal sinuses and mastoid air cells are clear. The calvarium and skull base are intact. The ventricles and sulci are within normal limits. T here is no mass, hematoma, midline shift, or acute infarct. Focal area of encephalomalacia within the right temporal lobe remains unchanged. Impression: No significant change compared to the prior study. No acute intracranial abnormality. Electronically signed by: Delano Murry M.D. 03/04/2019 3:35 PM Dictated: 03/04/19 1530 Transcribed: 03/04/[address] SCAN OF THE LEFT ANKLE WITHOUT IV CONTRAST CLINICAL HISTORY: Left ankle fracture/dislocation. COMPARISON STUDY: Radiographs of left ankle dated 03/04/2019. TECHNIQUE: CT scan of the left ankle is performed from the distal tibia and fibula to the foot. Images are reviewed in the axial, sagittal, and coronal planes. IV contrast was not administered for this examination. 3-D reformats are created and assessed. A dose lowering technique was utilized adhering to the principles of ALARA. CT DOSE: 165.84 mGy.cm FINDINGS: The examination is performed through a cast. The skeletal structures are well mineralized. There is a comminuted spiral fracture of the lateral malleolus with numerous distracted fragments. There are avulsed fracture fragments arising from the posterolateral aspect aspect of the posterior tibial plafond. There may also be tiny avulsed fragments arising from the medial malleolus, with numerous small fragments identified within the joint space. There is 1.4 cm of lateral distraction of the talus at the tibiotalar articulation. The talus and calcaneus appear intact. There is an ankle joint effusion. Significant soft tissue edema is present around the ankle and the hindfoot. There are numerous foci of superficial and deep soft tissue gas, likely representing open fracture. The Achilles tendon is intact as imaged. No large hematoma is identified. IMPRESSION: 1. Left ankle fracture/dislocation as above. 2. Numerous foci of subcutaneous gas suggest open fracture. Electronically signed by: Lauro Nj M.D. 03/04/2019 3:59 PM Dictated: 03/04/19 1552 Transcribed: 03/04/19 1552 ECG Data Attestation: I personally reviewed and interpreted this ECG as follows: Indication: tachycardia Rate (beats per minute): 108 Rhythm: sinus rhythm Findings: no acute ischemic change and no ectopy Blood Pressure Blood Pressure Findings: Elevated blood pressure Blood Pressure Disposition: further management by hospitalist SAMY Owens This patient was evaluated and appeared to be in no significant distress. IV access was obtained and laboratory work was drawn. The patient was placed on the child monitor and found to be slightly tachycardic and hypertensive. Patient has gross deformity of the left ankle with 90 degrees of angulation and the entire mortise is exposed. Apparently this has been situation for about 12 hours. A call to orthopedics was placed but not returned quickly. The patient's status was felt to be acute and would benefit from reduction. Patient's tetanus status is updated, she was given 2 g of IV Ancef. Patient was sedated, the ankle was irrigated at bedside and large debris removed. The ankle was reduced by Margarita Willams PA-C as I performed the conscious sedation. Please see my notes for documentation. Patient was placed in a sugar tong and posterior splint. Postreduction films were obtained. Patient will obviously need definitive management in the operating room. Orthopedics did return the call, Dr. Erickson. Dr. Dao and Shivam Talbert PA-C responded to the patient's bedside. Patient did receive multiple doses of IV narcotic medication including fentanyl and Dilaudid for pain. She did receive IV Ativan for apparent alcohol withdrawal as well as a banana bag. Internal medicine service was also consulted for the patient's medical management. Patient was transferred to the operating room. CT imaging of the head, C-spine, chest, abdomen pelvis reveals age-indeterminate endplate fractures in the spine but no evidence of solid organ injury. I did have a discussion with the patient's mother regarding the patient's status. She is aware of the plan and agrees. Impression & Plan Bimalleolar ankle fracture, Open ankle fracture, Alcohol dependence Critical Care Time I have personally spent greater than 30 minutes of critical care time in the direct management of this patient. This includes bedside care, interpretation of diagnostic studies, and testing, discussion with consultants, patient, and family members, and other required patient management activities. This 30 minutes is in excess of all separately billable procedures. Critical Care Time: Yes Discharge Plan Visit Data *Final* Discharge Date/Time: 03/04/19 16:12 Chief Complaint: Fall Stated Complaint: fall/ open ankle fx ED Provider: Kaila Garcia Discharge Problem: Bimalleolar ankle fracture, Open ankle fracture, Alcohol dependence Patient Disposition: Admitted As Inpatient Discharge Instructions Interventions: ED Discharge Assessment Last Done: 03/04/19 16:12 The scribe's documentation has been prepared under my direction and personally reviewed by me in its entirety. I confirm that the note above accurately reflects all work, treatment, procedures, and medical decision making performed by me.
--- NOTE | 2019-03-04 16:30 | History & Physical Report ---
Date of Service March 04, 2019 Assessment & Plan (1) Depression: Continue Cymbalta 80 mg a day (2) Pancreatic insufficiency: Consider pancreatic replacement enzymes (3) Bimalleolar ankle fracture: Patient is taken emergently to the OR for washout orthopedics will direct the need for antibiotics and DVT prevention (4) Alcohol use: Patient has had previous alcohol withdrawal in the past reportedly she is not a daily drinker and only occasional drinker however clinical intuition is concerned that this may be under reported. We will continue to watch the patient in a monitored setting due to some hypertension present on presentation using PRN medications such as clonidine to blunt her hypertensive response. If she appears to enter into withdrawal she is currently on Neurontin we will add escalating doses of benzodiazepines. History of Present Illness Primary Care Provider: Ana Lilia Madrid MD Patient presents with an open fracture dislocation of her left ankle. Reportedly she was struck by her pet dog and was on the ground for period of time. There is some mention from different providers this may benefit 2 days although her mother corroborates this is just been today. Patient has a history of alcohol abuse she says she still does drink but not to excess. She states she is able to have a day or 2 without drinking without any withdrawal signs or symptoms. She typically drinks 1 to 2 glasses of wine a day. She has a previou s history of pancreatic insufficiency which she takes supplementation and hepatic steatosis. Also been mentions of some diabetes in the past although she is not on any formal treatment at this time. She does suffer from depression taking duloxetine Currently she is being evaluated for possible washout of her open fracture dislocation of her left ankle. Likely this will be a two-stage procedure first with washout and then secondarily will possibly be for stabilization with hardware once the risk of infection has been reduced Allergies Allergy/AdvReac Type Severity Reaction Status Date / Time No Known Allergies Allergy Verified 03/04/19 14:51 Home Medications Home Medications Medication Instructions Recorded Confirmed Type duloxetine [Cymbalta] 60 mg PO QAM 08/13/18 03/04/19 History folic acid 1 mg PO QAM 08/13/18 03/04/19 History gabapentin 300 mg PO TID 08/13/18 03/04/19 History hydroxyzine pamoate [Vistaril] 50 mg PO BID PRN 08/13/18 03/04/19 History vitamin B complex 1 tab PO QAM 08/13/18 03/04/19 History ascorbic acid (vitamin C) [Vitamin 100 mg PO QAM 02/22/19 03/04/19 History C] cholecalciferol (vitamin D3) 5,000 unit PO QAM 02/22/19 03/04/19 History [Vitamin D3] cyanocobalamin (vitamin B-12) 1,000 mcg PO QAM 02/22/19 03/04/19 History [Vitamin B-12] duloxetine 20 mg PO DAILY 02/22/19 03/04/19 History ergocalciferol (vitamin D2) 50,000 unit PO WK 02/22/19 03/04/19 History [Vitamin D2] [id number] [Creon] 1 cap PO TIDM 02/22/19 03/04/19 History Past Med/Surg History Medical History Anxiety (Chronic) HAS UPCOMING LALA WITH PSYCH Depression (Chronic) HAS UPCOMING LALA WITH PSYCH Neuropathy (Chronic) OF FEET Nicotine dependence (Chronic) Alcohol withdrawal seizure (Resolved) NOT REPORTED BY PATIENT AT TIME OF PAT CALL - NOTED IN EMR PREVIOUSLY Abnormal TSH Abnormal blood sugar A1C LEVELS FLUCTUATE Bowel habit changes STARTED 1 YR AGO/LOOSE STOOLS AFTER EATING Chronic pancreatitis Cirrhosis of liver "COMPROMISED LIVER" Diabetes mellitus TYPE 2 "SECONDARY" History of alcohol consumption History of dizziness 2 WEEKS AGO, DIZZINESS AND NAUSEA, DENIES FEVER - HAS FULLY RESOLVED/EDU PROVIDED History of fracture TAILBONE - FLARES UP WITH WEATHER CHANGES IPMN (intraductal papillary mucinous neoplasm) Insomnia Lipoma No family history of adverse response to anesthesia Pancreatic insufficiency Polycystic ovarian syndrome Vitamin D deficiency Surgical History History of tooth extraction Family History Other Family history of breast cancer in mother Family history of breast cancer in sister Social History Preferred Language: Croatian Communication Ability: Effective Beliefs That Will Affect Care: None marital status: Current Living Situation: Alone Other Information That Helps Us Care for You: No Feels Safe at Home: Yes Smoking Status: Current every day smoker Tobacco Type: cigarettes Cigarettes Per Day: 1PPD - ADVISED NPO Do You Dip or Chew Tobacco: No Second Hand Exposure: Yes Tobacco Cessation Education Requested by Patient: No Hx Alcohol Use: Yes Alcohol type: wine Hx Substance Use: No Review of Systems Review of Systems: ROS: Patient has been sedated for her fracture reduction. He is covered with scratches on her arms and legs No double vision blurry vision Some does have some slurring of speech which is likely from medications used to reduce her fracture No palpitations, chest pain or pressure No Wheezing or breathing issues No abdominal pain nausea vomiting diarrhea changes in appetite or weight No burning urine urine frequency or changes in color Significant left ankle pain Large laceration of her left lateral ankle No unusual bruising or bleeding Some minor chronic daily back pain but no numbness or loss of strength No changes in memory or confusion Physical Exam Physical Exam: The patient appeared altered for medications Vital signs as documented. Head exam is unremarkable. normocephalic, atraumatic Neck is without jugular venous distension, thyromegaly, or lymphademopathy Lungs are clear to auscultation and percussion. Cardiac exam reveals Rhythm is regular. First and second heart sounds normal. Abdominal exam reveals normal bowel sounds, no masses, no organomegaly Extremities are scratches about her arms and legs. There is a form foot brace or splint on her left ankle Neurologic exam is A&Ox3, she is somewhat sedated from medications. She is able to wiggle her left toes she claims to have good sensation on that side also Skin is warm Dry with various scratches and open areas plus crusted blood on her right foot likely from her left foot Results & Data Vital Signs (Past 12 Hours) Vital Signs Temp Pulse Resp BP Pulse Ox 03/04/19 15:50 105 H 164/97 H 97 03/04/19 15:45 106 H 179/101 H 98 03/04/19 15:41 106 H 99 03/04/19 15:40 106 H 187/103 H 99 03/04/19 15:35 105 H 169/94 H 96 03/04/19 15:32 107 H 165/102 H 95 03/04/19 15:31 117 H 03/04/19 15:00 111 H 168/100 H 98 03/04/19 14:55 108 H 177/100 H 100 03/04/19 14:51 105 H 100 03/04/19 14:50 107 H 170/100 H 100 03/04/19 14:46 103 H 167/97 H 100 03/04/19 14:41 105 H 100 03/04/19 14:40 102 H 177/106 H 100 03/04/19 14:35 103 H 178/100 H 100 03/04/19 14:31 101 H 100 03/04/19 14:30 105 H 180/124 H 100 03/04/19 14:25 101 H 174/98 H 100 03/04/19 14:21 104 H 100 03/04/19 14:20 103 H 176/109 H 100 03/04/19 14:16 103 H 175/110 H 100 03/04/19 14:11 108 H 167/101 H 100 03/04/19 14:10 109 H 100 03/04/19 14:05 113 H 166/107 H 03/04/19 14:01 106 H 99 03/04/19 14:00 112 H 158/100 H 62 L 03/04/19 13:55 119 H 163/103 H 98 03/04/19 13:51 128 H 72 L 03/04/19 13:50 105 H 144/92 H 96 03/04/19 13:45 114 H 172/113 H 03/04/19 13:41 109 H 03/04/19 13:40 103 H 175/105 H 03/04/19 13:35 108 H 158/115 H 03/04/19 13:34 113 H 148/115 H 03/04/19 13:32 112 H 03/04/19 13:31 116 H 21 172/136 H 03/04/19 13:26 118 H 20 150/112 H 03/04/19 13:20 37.3 C 117 H 24 150/[address] scan of her head is unremarkable CT scan of her chest shows T1 6 and 9 indeterminate thoracic compression fractures, hiatal hernia, CT abdomen pelvis shows a 5.3 cm right ovarian cyst right hydrosalpinx and steatosis. (1) Bimalleolar ankle fracture Encounter type: initial encounter Fracture type: open Laterality: left
[2019-03-04] MEDS ORDERED: PHENYLEPHRINE 100MCG/ML 5ML SYR ONE (16:40)
[2019-03-04] MEDS ORDERED: ePHEDrine sulfate 50 MG/ML SYR ONE (16:40)
[2019-03-04] MEDS ORDERED: DEXAMETHASONE SOD INJ 4 MG/ML VIAL ONE (16:40)
[2019-03-04] MEDS ORDERED: NEOSTIGMINE METHYLSULFATE 5 MG/5 ML SYR ONE (16:40)
[2019-03-04] MEDS ORDERED: ROCURONIUM BROMIDE 10 MG/ML 5 ML VIAL ONE (16:40)
[2019-03-04] MEDS ORDERED: GLYCOPYRROLATE 0.2 MG/ML VIAL ONE (16:40)
[2019-03-04] MEDS ORDERED: LIDOCAINE HCL 2% 2 ML VIAL/AMP(20MG/ML) INFIL ONE (16:40)
[2019-03-04] MEDS ORDERED: LARYING-O-JET KIT (LTA) ONE (16:41)
[2019-03-04] MEDS ORDERED: ATROPINE SULFATE 0.1 MG/ML 10ML SYR IV PRN (17:06)
[2019-03-04] MEDS ORDERED: HYDROmorphone INJ 1 MG/ML SYRINGE IV PRN (17:06)
[2019-03-04] MEDS ORDERED: ONDANSETRON INJ 2 MG/ML 2 ML VIAL IV PRN ×2 (17:06→20:29)
[2019-03-04] MEDS ORDERED: CEFAZOLIN 250 MG/ML 1 GM VIAL ONE (17:17)
[2019-03-04] MEDS ORDERED: GENTAMICIN SULFATE 40 MG/ML 2 ML VIAL ONE (17:29)
[2019-03-04] MEDS ORDERED: CEFAZOLIN 1000MG 1,000 MG/7.5 ML SYR IV ONE (17:38)
--- NOTE | 2019-03-04 18:40 | Operative Report ---
Post Operative Report Pre & Post Diagnosis Operation Date: 03/04/19 14:40 Pre-Op Diagnosis: Open Left bimalleolar ankle Fracture, complex laceration medially Post-Op Diagnosis: Open Left bimalleolar ankle Fracture, complex laceration medially measuring 12 cm Procedure Operation Date: 03/04/19 14:40 Actual Procedures p Left Ankle irrigation and debridement, External Fixator Application(Left) bimalleolar ankle fracture, repair 12 cm laceration- Riki Dao MD Surgeon Riki Dao MD Regulatory Affairs Portfolio Leader Glen Sharma PA-C Estimated Blood Loss 5 Findings Consistent with Post-Op Diagnosis Specimens None Drains None Anesthesia Type General Complications none Disposition Accompanied Patient To Recovery: No Disposition: Recovery Room Indications The patient is a 53-year-old female who has a known history of alcohol abuse. Her mother checks on her daily. Mother checked on her yesterday and the patient was okay. She checked on her again this afternoon and found the patient down with a open fracture dislocation of the ankle. Is unknown how long patient was down. Patient herself states that happened earlier this morning after tripping over her dog and tripping over onto the stairs. Given the nature of the injury and the indeterminate timeframe of the open wound we elected to proceed with irrigation debridement and placement of external fixator Description of Procedure Risks benefits and alternatives of surgery including but not limited to infection, DVT, pain, stiffness, nonunion, need for revision surgery, damage to blood vessels damage to nerves or risks of anesthesia were discussed with the patient and she wished to proceed. Patient was identified in the laterality was confirmed and marked. A well-padded tourniquet was applied and then the limb was prepped and draped in standard manner with Betadine. The limb was exsanguinated and the tourniquet was inflated. There was a transverse laceration over the distal aspect of the ankle over the medial malleolus. The medial malleolus itself was exposed out of the wound. There was subluxation of the posterior tibialis tendon into the joint space. The deltoid ligament was torn and appeared to be contaminated with hair. The patient has a known dog and it may be from the dog. This region was thoroughly debrided sharply down to the level of bone. The wound edges were freshened with a knife. Any other particulate debris was sharply debrided out down to level of bone. There was some scattered hair and dirt type debris in various places along the medial malleolus. I redislocated the ankle to ensure there was not any particulate matter within the joint itself and I did not see anything like that. The wound was then thoroughly irrigated with bacitracin impregnated pulse lavage will total of 9 L of saline. The ankle was then reduced taking care to move the tendon structures back out of the joint in order to get appropriate reduction. Then under fluoroscopic guidance I placed a 6-0calcaneal pin through the calcaneus through a stab incision and then placed to. I confirmed placement on AP and lateral fluoroscopy views. I then placed 5-0 2 pins into the tibia through stab incisions. Pin clamps were then placed onto the pins proximally. I then connected a bar on the lateral side of the tibia to the calcaneal pin laterally. I then reduce the ankle and locked the pins and clamps into place. The laceration was then repaired with interrupted 2-0 nylon. I then placed an additional bar onto the medial side secured in the same fashion. I confirmed reduction of the ankle with AP, mortise, lateral views with fluoroscopy. The stab incisions were closed with interrupted 3-0 nylon suture. A sterile dressing was applied. All needle and sponge counts were correct at the end of the procedure. The patient was transferred to the PACU in stable condition without apparent complication. The PA-C was necessary for assistance with procedure for assistance in positioning, prepping, draping, retraction and closure. I attest to the content of the Intraoperative Record and any orders documented therein. Any exceptions are noted below.
[2019-03-04] MEDS: LABETALOL HCL IV 5 MG/ML 20ML IV PRN ×3 (18:47→18:57)
[2019-03-04] MEDS ORDERED: HydrALAZINE HCL 20 MG/ML VIAL ONE (19:09)
[2019-03-04] MEDS ORDERED: HydrALAZINE HCL 20 MG/ML VIAL IV ONE (19:09)
--- NOTE | 2019-03-04 19:37 | Fluoroscopy Report ---
FL ankle LT 2V CLINICAL HISTORY: LEFT ANKLE FX COMPARISON STUDY: 03/04/2019 FLUOROSCOPY TIME: 20 seconds. NUMBER OF FLUOROSCOPIC IMAGES: 3 FINDINGS: 3 intraoperative fluoroscopic spot images are provided for interpretation. There is an exte rnal fixator device. There is a calcaneal pain. There is a distal fibular fracture. The ankle mortise appears in near-anatomic alignment. IMPRESSION: Fluoroscopic spot images demonstrating interval reduction of the ankle subluxation. Ther e is been placement of a calcaneal pin as part of an external fixation device. Electronically signed by: Blas Schuler M.D. 03/04/2019 7:35 PM
--- NOTE | 2019-03-04 19:37 | Anesthesiology Progress Note ---
Date of Service March 04, 2019 Anesthesia Post Procedure Vital Signs Vital Signs: Temp Pulse Pulse Resp BP BP Pulse Ox 03/04/19 19:30 94 H 16 169/101 H 96 03/04/19 19:20 82 16 168/93 H 96 03/04/19 19:10 75 16 168/125 H 96 03/04/19 19:00 75 16 158/103 H 94 03/04/19 18:50 79 16 177/105 H 97 03/04/19 18:40 83 14 171/107 H 100 03/04/19 18:32 36.2 C L 85 12 170/100 H 100 03/04/19 16:30 36.4 C L 106 H 18 170/102 H 98 03/04/19 15:50 105 H 164/97 H 97 03/04/19 15:45 106 H 179/101 H 98 03/04/19 15:41 106 H 99 03/04/19 15:40 106 H 187/103 H 99 03/04/19 15:35 105 H 169/94 H 96 03/04/19 15:32 107 H 165/102 H 95 03/04/19 15:31 117 H 03/04/19 15:00 111 H 168/100 H 98 03/04/19 14:55 108 H 177/100 H 100 03/04/19 14:51 105 H 100 03/04/19 14:50 107 H 170/100 H 100 03/04/19 14:46 103 H 167/97 H 100 03/04/19 14:41 105 H 100 03/04/19 14:40 102 H 177/106 H 100 03/04/19 14:35 103 H 178/100 H 100 03/04/19 14:31 101 H 100 03/04/19 14:30 105 H 180/124 H 100 03/04/19 14:25 101 H 174/98 H 100 03/04/19 14:21 104 H 100 03/04/19 14:20 103 H 176/109 H 100 03/04/19 14:16 103 H 175/110 H 100 03/04/19 14:11 108 H 167/101 H 100 03/04/19 14:10 109 H 100 03/04/19 14:05 113 H 166/107 H 98 03/04/19 14:01 106 H 99 03/04/19 14:00 112 H 158/100 H 98 03/04/19 13:55 119 H 163/103 H 98 03/04/19 13:51 128 H 99 03/04/19 13:50 105 H 144/92 H 96 03/04/19 13:45 114 H 172/113 H 99 03/04/19 13:41 109 H 99 03/04/19 13:40 103 H 22 175/105 H 94 03/04/19 13:35 108 H 158/115 H 99 03/04/19 13:34 113 H 148/115 H 94 03/04/19 13:32 112 H 03/04/19 13:31 116 H 21 172/136 H 03/04/19 13:26 118 H 20 150/112 H 03/04/19 13:20 37.3 C 117 H 24 150/112 H 93 Pain Intensity Left Ankle: Pain Intensity: 4 Transfer of Care Handoff Completed per policy Notes Mental Status: alert / awake / arousable Patient Amnestic to Procedure: Yes Nausea / Vomiting: adequately controlled Pain: adequately controlled Airway Patency, RR, SpO2: stable & adequate BP & HR: stable & adequate Hydration State: stable & adequate Anesthetic Complications: no major complications apparent
[2019-03-04] MEDS ORDERED: MAGNESIUM HYDROXIDE SUSP 30 ML UDC PO PRN (20:29)
[2019-03-04] MEDS ORDERED: cloNIDine HCl 0.1 MG TAB PO PRN (20:29)
[2019-03-04] MEDS ORDERED: HydrALAZINE HCL 20 MG/ML VIAL IV PRN (20:29)
[2019-03-04] MEDS ORDERED: NALOXONE HCL 0.4 MG/1 ML VIAL/CARP IV PRN (20:29)
[2019-03-04] MEDS ORDERED: LORazepam 0.5 MG/1 ML VIAL IV PRN (20:29)
[2019-03-04] MEDS ORDERED: BISACODYL 10 MG SUPP PR PRN (20:29)
[2019-03-04] MEDS: HYDROmorphone INJ 0.5 MG/0.5 ML SYR IV PRN (21:07)
[2019-03-04] MEDS: SODIUM CHLORIDE 0.9% 1000ML 1,000 ML IV SCH (21:07)
[2019-03-04] MEDS: GABAPENTIN 300 MG CAP PO SCH (21:38)
[2019-03-04] MEDS: PANCREAZE (LIPASE 4,200U) CAP PO SCH (21:38)
[2019-03-04] MEDS: DOCUSATE SODIUM 100 MG CAP PO SCH (21:38)
[2019-03-04] MEDS: SENNA 8.6 MG TAB PO SCH (21:38)
[2019-03-04] MEDS: ACETAMINOPHEN 500 MG TAB PO SCH (21:38)
[2019-03-05] MEDS: CEFAZOLIN 1000MG 1,000 MG/7.5 ML SYR IV SCH ×2 (01:33→10:45)
[2019-03-05] MEDS: OXYCODONE HCL IR 5 MG TAB (IMMEDIATE RELEASE) PO PRN ×2 (04:58→17:01)
[2019-03-05] MEDS: ACETAMINOPHEN 500 MG TAB PO SCH ×3 (06:10→21:54)
[2019-03-05 07:10] LABS: Hemoglobin 9.9 g/dL (12.0-16.0); Mean Corpuscular Hgb Conc 34.1 g/dL (32-36); Mean Corpuscular Volume 86.3 fL (80-100); Mean Platelet Volume 9.5 fL (7.4-10.4); Platelet Count 171 K/uL (130-400); RDW Coefficient of Variation 16.7 % (11.5-14.5); RDW Standard Deviation 52.8 fL (36.4-46.3); Red Blood Count 3.36 M/uL (4.2-5.4); White Blood Count 11.44 K/uL (4.8-10.8)
--- NOTE | 2019-03-05 07:11 | Orthopedic Progress Note ---
Date of Service March 05, 2019 Assessment & Plan (1) Bimalleolar ankle fracture: POD#1 Ankle irrigation and debridement, External Fixator Application(Left) bimalleolar ankle fracture, repair 12 cm laceration -Pain management -PT/OT- NWB LLE -DVT prophylaxis-SCDs, Aspirin 81mg BID Subjective Patient is POD#1 from I&D and Ex fix application. Doing well, pain is controlled. No other complaints. Denies chest pain, sob, dizziness. Review of Systems Review of Systems: All systems reviewed & are unremarkable except as noted in HPI & below Physical Exam Physical Exam: Dressing is c/d/i. Toes are mobile. Sensation is intact. Cap refill <3s. Results & Data Vital Signs (Past 12 Hours) Vital Signs Temp Pulse Pulse Pulse Resp BP BP 03/05/19 04:00 36.8 C 92 H 18 159/83 H 03/05/19 00:00 36.8 C 88 19 153/92 H 03/04/19 21:59 92 H 155/91 H 03/04/19 21:30 91 H 157/93 H 03/04/19 20:59 93 H 138/88 03/04/19 20:50 95 H 03/04/19 20:33 36.9 C 93 H 14 169/102 H 03/04/19 19:50 88 16 159/96 H 03/04/19 19:40 36.5 C 85 16 161/102 H 03/04/19 19:30 94 H 16 169/101 H 03/04/19 19:20 82 16 168/93 H 03/04/19 19:10 75 16 168/125 H Pulse Ox 03/05/19 04:00 100 03/05/19 00:00 98 03/04/19 21:59 96 03/04/19 21:30 98 03/04/19 20:59 90 03/04/19 20:50 03/04/19 20:33 100 03/04/19 19:50 96 03/04/19 19:40 96 03/04/19 19:30 96 03/04/19 19:20 96 03/04/19 19:10 96 (1) Bimalleolar ankle fracture Encounter type: initial encounter Fracture type: open Laterality: left
[2019-03-05 07:42] LABS: BUN Creatinine Ratio 14.2 (10-20); Calcium 8.2 mg/dl (8.5-10.1); Creatinine Clr Calc Pharmacy 76.1 ml/min; Est GFR (African American) 97.6; Est GFR (Non-African American) 84.2; Potassium 3.8 mmol/L (3.5-5.1)
[2019-03-05] MEDS: PANCREAZE (LIPASE 4,200U) CAP PO SCH ×3 (08:28→16:02)
[2019-03-05] MEDS: MULTIVITAMIN TAB PO SCH (08:28)
[2019-03-05] MEDS: FOLIC ACID 1 MG TAB PO SCH (08:28)
[2019-03-05] MEDS: DOCUSATE SODIUM 100 MG CAP PO SCH ×2 (08:28→20:40)
[2019-03-05] MEDS: DULOXETINE HCL 60 MG CAP PO SCH (08:28)
[2019-03-05] MEDS: GABAPENTIN 300 MG CAP PO SCH ×3 (08:28→20:40)
[2019-03-05] MEDS: ASPIRIN 81 MG ECTAB PO SCH ×2 (08:35→20:40)
--- NOTE | 2019-03-05 15:25 | Emergency Department Note ---
Pre Sedation Assessment Vital Signs Temp Pulse Pulse Resp BP BP Pulse Ox 03/04/19 19:20 82 16 168/93 H 96 03/04/19 19:10 75 16 168/125 H 96 03/04/19 19:00 75 16 158/103 H 94 03/04/19 18:50 79 16 177/105 H 97 03/04/19 18:40 83 14 171/107 H 100 03/04/19 18:32 36.2 C L 85 12 170/100 H 100 03/04/19 16:30 36.4 C L 106 H 18 170/102 H 98 03/04/19 15:50 105 H 164/97 H 97 03/04/19 15:45 106 H 179/101 H 98 03/04/19 15:41 106 H 99 03/04/19 15:40 106 H 187/103 H 99 03/04/19 15:35 105 H 169/94 H 96 03/04/19 15:32 107 H 165/102 H 95 03/04/19 15:31 117 H Pre-Sedation Airway Assessment Smoking Status: Current every day smoker Hx Sleep Apnea: No Short, Thick Neck: No Thyromental Distance: > or= 3.5 Finger Breadths Mallampati Class: II ASA: ASA2 NPO Status Date of Last Intake of Fluids: 03/03/19 Last Oral Intake of Fluids Comment: can not recall but thinks > 12h Notes The planned sedation has been discussed with the patient. Informed Consent was obtained. I have identified the patient, determined the appropriateness of sedation and have assessed the patient immediately prior to the procedure. All medicine(s) and interventions are by my order. : Bimalleolar ankle fracture Qualifiers: Encounter type: initial encounter Fracture type: open Open fracture type: open type III Laterality: left Qualified Code(s): S82.842C - Displaced bimalleolar fracture of left lower leg, initial encounter for open fracture type IIIA, IIIB, or IIIC Open ankle fracture Qualifiers: Encounter type: initial encounter Open fracture type: open type III Laterality: left Qualified Code(s): S82.892C - Other fracture of left lower leg, initial encounter for open fracture type IIIA, IIIB, or IIIC Alcohol dependence Qualifiers: Substance use status: other alcohol-induced disorder Qualified Code(s): F10.288 - Alcohol dependence with other alcohol-induced disorder
[2019-03-05] MEDS: DULOXETINE HCL 20 MG CAP PO SCH (15:26)
--- NOTE | 2019-03-05 15:26 | Emergency Department Note ---
Post Sedation Assessment Vital Signs Temp Pulse Pulse Resp BP BP Pulse Ox 03/04/19 19:20 82 16 168/93 H 96 03/04/19 19:10 75 16 168/125 H 96 03/04/19 19:00 75 16 158/103 H 94 03/04/19 18:50 79 16 177/105 H 97 03/04/19 18:40 83 14 171/107 H 100 03/04/19 18:32 36.2 C L 85 12 170/100 H 100 03/04/19 16:30 36.4 C L 106 H 18 170/102 H 98 03/04/19 15:50 105 H 164/97 H 97 03/04/19 15:45 106 H 179/101 H 98 03/04/19 15:41 106 H 99 03/04/19 15:40 106 H 187/103 H 99 03/04/19 15:35 105 H 169/94 H 96 03/04/19 15:32 107 H 165/102 H 95 03/04/19 15:31 117 H Recovery Score Activity: Moves 4 extremities Respiration: Deep Breath/Cough Circulation: +/-20% PreAnes Value Consciousness: Arouseable (by name) Oxygen Saturation: O2 needed for >90% Post Anesthesia Score: 8 Discharge Sedation Level of Care: Phase I Unexpected Event: None Post Sedation Plan On clinical assessment, the patient appears to have tolerated the sedation without complications. Patient is recovering as anticipated. Patient was evaluated by orthopedic surgery and require the operating room for definitive management. Sedation Data Sedation Times Sedation Start Date: 03/04/19 Procedure Times Procedure Start Time:: 13:45 Procedure End Time: 14:08 Specimens Specimens Obtained: No : Bimalleolar ankle fracture Qualifiers: Encounter type: initial encounter Fracture type: open Open fracture type: open type III Laterality: left Qualified Code(s): S82.842C - Displaced bimalleolar fracture of left lower leg, initial encounter for open fracture type IIIA, IIIB, or IIIC Open ankle fracture Qualifiers: Encounter type: initial encounter Open fracture type: open type III Laterality: left Qualified Code(s): S82.892C - Other fracture of left lower leg, initial encounter for open fracture type IIIA, IIIB, or IIIC Alcohol dependence Qualifiers: Substance use status: other alcohol-induced disorder Qualified Code(s): F10.288 - Alcohol dependence with other alcohol-induced disorder
[2019-03-05] MEDS: HYDROmorphone INJ 0.5 MG/0.5 ML SYR IV PRN ×3 (15:27→20:34)
--- NOTE | 2019-03-05 16:59 | Hospitalist Progress Note ---
Date of Service March 05, 2019 Assessment & Plan (1) Depression: Continue Cymbalta 80 mg a day (2) Pancreatic insufficiency: Consider pancreatic replacement enzymes (3) Bimalleolar ankle fracture: Patient was taken emergently to the OR for washout orthopedics External fixator device is in place the patient was on aspirin for DVT prevention (4) Alcohol use: Patient has had previous alcohol withdrawal in the past reportedly she is not a daily drinker and only occasional drinker however clinical intuition is concerned that this may be under reported. Patient is tremulous and tachycardic although not hypertensive will begin low- dose chlordiazepoxide at this time and follow for overt withdrawal. She remains on gabapentin with PRN hydralazine and clonidine for blood pressure control Subjective Patient is slightly tremulous however overall she is in physical condition her hypertension is resolved still unclear whether she is tremulous based upon her overall psychological make-up that she is recently had a fairly significant stressor event being and moving back to [place]. Or this could be the beginnings of alcohol withdrawal. She is not hypertensive as mentioned but she is slightly tachycardic there is an external fixator device on her leg her laceration has been closed Review of Systems Review of Systems: ROS: Tremulous and shaky at times No double vision blurry vision No problems with speech or swallowing No palpitations, chest pain or pressure No Wheezing or breathing issues No abdominal pain nausea vomiting diarrhea changes in appetite or weight No burning urine urine frequency or changes in color Significant left lower leg pain No skin rashes or oral lesions laceration repair Catching bruising about her arms and legs No focused back pain or numbness or loss of strength No changes in memory or confusion Physical Exam Physical Exam: The patient appeared tremulous Vital signs as documented. Head exam is unremarkable. normocephalic, atraumatic Neck is without jugular venous distension, thyromegaly, or lymphademopathy Lungs are clear to auscultation and percussion. Cardiac exam reveals Rhythm is regular. First and second heart sounds normal. Abdominal exam reveals normal bowel sounds, no masses, no organomegaly Extremities left leg with external fixator device upon that she can wiggle her toes and sensation her leg is uncomfortable Neurologic exam is A&Ox3, no focal deficits, strength is equal bilateral she has some tremor Psychologically seems neither anxious or depressed Skin is warm Dry with various bruises of different ages about her arms and legs consistent with scratching she states from her pets Results & Data Vital Signs (Past 12 Hours) Vital Signs Temp Pulse Resp BP Pulse Ox 03/05/19 15:04 36.6 C 106 H 18 119/75 96 03/05/19 12:49 100 03/05/19 12:00 108 H 28 H 122/87 100 03/05/19 08:42 36.9 C 92 H 22 100 03/05/19 08:25 36.9 C (1) Bimalleolar ankle fracture Encounter type: initial encounter Fracture type: open Laterality: left Open fracture type: open type III Qualified Code(s): S82.842C - Displaced bimalleolar fracture of left lower leg, initial encounter for open fracture type IIIA, IIIB, or IIIC
[2019-03-05] MEDS: SENNA 8.6 MG TAB PO SCH (20:40)
[2019-03-05] MEDS: ONDANSETRON INJ 2 MG/ML 2 ML VIAL IV PRN (23:45)
[2019-03-06] MEDS: OXYCODONE HCL IR 5 MG TAB (IMMEDIATE RELEASE) PO PRN ×3 (00:53→15:52)
[2019-03-06] MEDS ORDERED: PROMETHAZINE HCL 6.25 MG in SODIUM CHLORIDE 0.9% 50 ML IV STA (03:17)
[2019-03-06] MEDS ORDERED: LORazepam 2 MG/4 ML VIAL IV PRN (03:24)
[2019-03-06] MEDS ORDERED: LORazepam 3 MG/6 ML VIAL IV PRN (03:24)
[2019-03-06] MEDS ORDERED: LORazepam 1 MG/2 ML VIAL IV PRN (03:24)
[2019-03-06] MEDS ORDERED: ATIVAN IV ALCOHOL WITHDRAWL IV SCH (03:30)
[2019-03-06] MEDS: THIAMINE HCL 100 MG TAB PO SCH (03:53)
[2019-03-06 04:14] LABS: Hematocrit (blood only) 28.9 % (37-47); Hemoglobin 9.6 g/dL (12.0-16.0); Mean Corpuscular Hgb Conc 33.2 g/dL (32-36); Mean Corpuscular Volume 88.1 fL (80-100); Mean Platelet Volume 9.1 fL (7.4-10.4); Platelet Count 171 K/uL (130-400); RDW Coefficient of Variation 16.3 % (11.5-14.5); RDW Standard Deviation 52.8 fL (36.4-46.3); Red Blood Count 3.28 M/uL (4.2-5.4)
[2019-03-06 04:32] LABS: BUN Creatinine Ratio 12.2 (10-20); Calcium 8.4 mg/dl (8.5-10.1); Creatinine Clr Calc Pharmacy 64.8 ml/min; Est GFR (African American) 80.3; Est GFR (Non-African American) 69.3; Potassium 3.2 mmol/L (3.5-5.1)
[2019-03-06] MEDS: ACETAMINOPHEN 500 MG TAB PO SCH ×4 (05:50→21:29)
[2019-03-06] MEDS: HYDROmorphone INJ 0.5 MG/0.5 ML SYR IV PRN ×2 (05:55→12:04)
[2019-03-06] MEDS: PANCREAZE (LIPASE 4,200U) CAP PO SCH ×3 (08:04→16:42)
[2019-03-06] MEDS: DULOXETINE HCL 60 MG CAP PO SCH (08:05)
[2019-03-06] MEDS: ASPIRIN 81 MG ECTAB PO SCH ×2 (08:05→21:29)
[2019-03-06] MEDS: DOCUSATE SODIUM 100 MG CAP PO SCH ×2 (08:05→21:30)
[2019-03-06] MEDS: FOLIC ACID 1 MG TAB PO SCH ×2 (08:06→09:19)
[2019-03-06] MEDS: MULTIVITAMIN TAB PO SCH (08:07)
[2019-03-06] MEDS: GABAPENTIN 300 MG CAP PO SCH ×3 (08:07→21:30)
--- NOTE | 2019-03-06 08:17 | Orthopedic Progress Note ---
Date of Service March 06, 2019 Assessment & Plan (1) Bimalleolar ankle fracture: POD#2 Ankle irrigation and debridement, External Fixator Application(Left) bimalleolar ankle fracture, repair 12 cm laceration -Pain management -PT/OT- NWB LLE -DVT prophylaxis-SCDs, Aspirin 81mg BID -Will discuss case with Dr. Erickson as far as plan of care and need for additional surgery in the future. Subjective Patient seen resting in bed comfortably. She notes intermittent pain to her left ankle. No calf pain. Denies other complaints at this time. Review of Systems Review of Systems: All systems reviewed & are unremarkable except as noted in HPI & below Physical Exam Physical Exam: Dressing and external fixator in place, c/d/i. Toes are mobile and sensation intact. Cap refill <3s. No calf tenderness Results & Data Vital Signs (Past 12 Hours) Vital Signs Temp Pulse Pulse Resp BP Pulse Ox 03/06/19 06:58 36.8 C 109 H 18 151/94 H 96 03/06/19 03:50 37.1 C 101 H 20 138/87 03/06/19 00:00 101 H 03/05/19 23:52 36.9 C 111 H 136/82 94 (1) Bimalleolar ankle fracture Encounter type: initial encounter Fracture type: open Laterality: left Open fracture type: open type III Qualified Code(s): S82.842C - Displaced bimalleolar fracture of left lower leg, initial encounter for open fracture type IIIA, IIIB, or IIIC
[2019-03-06] MEDS: chlordiazePOXIDE HCl 25 MG CAP PO SCH ×3 (09:18→21:29)
[2019-03-06] MEDS: ONDANSETRON INJ 2 MG/ML 2 ML VIAL IV PRN (11:47)
[2019-03-06] MEDS ORDERED: METOPROLOL TARTRATE 25 MG TAB PO ONE (13:21)
--- NOTE | 2019-03-06 13:25 | Hospitalist Progress Note ---
Date of Service March 06, 2019 Assessment & Plan (1) Depression: Continue Cymbalta 80 mg a day (2) Pancreatic insufficiency: Consider pancreatic replacement enzymes (3) Bimalleolar ankle fracture: Patient was taken emergently to the OR for washout orthopedics External fixator device is in place the patient was on aspirin for DVT prevention (4) Alcohol use: Patient has had previous alcohol withdrawal in the past reportedly she is not a daily drinker and only occasional drinker however clinical intuition is concerned that this may be under reported. Patient is tremulous and tachycardic and hypertensive will begin chlordiazepoxidel. She remains on gabapentin with PRN hydralazine and we will add metoprolol scheduled but continue as needed clonidine for blood pressure control (5) Anemia: Patient's anemia is likely multifactorial not overtly macrocytic but RDW is significant for could have a mixed picture of iron deficiency and vitamin deficiency. Along with some postoperative acute blood loss anemia. Patient will have iron B12 folic acid level checked in the morning Subjective Patient looks much better after having some Librium. Although there was some discussion whether she truly was a chronic daily alcohol use or it seems like she was going through some mild withdrawal. Despite the improvement of her tremor she still remains tachycardic and hypertensive we will add a beta-erica on a scheduled dose on 03/06 Review of Systems Review of Systems: ROS: well nourished well developed. No double vision blurry vision No problems with speech or swallowing No palpitations, chest pain or pressure No Wheezing or breathing issues No abdominal pain nausea vomiting diarrhea changes in appetite or weight No burning urine urine frequency or changes in color Having some significant left-sided leg pain she is icteric external fixator device on No skin rashes or oral lesions No unusual bruising or bleeding No focused back pain or numbness or loss of strength Her tremor has improved with the addition of Librium Physical Exam Physical Exam: The patient appeared well nourished and normally developed. Vital signs as documented. Head exam is unremarkable. normocephalic, atraumatic Neck is without jugular venous distension, thyromegaly, or lymphademopathy Lungs are clear to auscultation and percussion. Cardiac exam reveals Rhythm is regular. First and second heart sounds normal. Abdominal exam reveals normal bowel sounds, no masses, no organomegaly Extremities her left extremity is wrapped there is external fixative device seen. She is good distal sensation and movement of her toes with intact capillary refill Neurologic exam is A&Ox3, no focal deficits, strength is equal bilateral Psychologically seems anxious Skin is warm Dry without bruises or lesions Results & Data Vital Signs (Past 12 Hours) Vital Signs Temp Pulse Resp BP Pulse Ox Pulse Ox 03/06/19 11:09 37.6 C H 116 H 18 142/95 H 97 03/06/19 08:40 123 H 18 133/88 95 03/06/19 08:39 95 03/06/19 06:58 36.8 C 109 H 18 151/94 H 96 03/06/19 03:50 37.1 C 101 H 20 138/87 (1) Bimalleolar ankle fracture Encounter type: initial encounter Fracture type: open Laterality: left Open fracture type: open type III Qualified Code(s): S82.842C - Displaced bimalleolar fracture of left lower leg, initial encounter for open fracture type IIIA, IIIB, or IIIC
[2019-03-06] MEDS: POTASSIUM CHLORIDE 20 MEQ TABCR PO SCH ×2 (13:41→21:30)
[2019-03-06] MEDS: DULOXETINE HCL 20 MG CAP PO SCH (13:42)
[2019-03-06] MEDS: CALCIUM CARBONATE 500 MG CHEWABLE TAB PO PRN (15:52)
[2019-03-06] MEDS: SENNA 8.6 MG TAB PO SCH (21:29)
[2019-03-06] MEDS: PANTOprazole 40 MG TAB PO SCH (21:51)
[2019-03-07] MEDS: ONDANSETRON INJ 2 MG/ML 2 ML VIAL IV PRN ×2 (00:43→09:15)
[2019-03-07] MEDS: HYDROmorphone INJ 0.5 MG/0.5 ML SYR IV PRN ×3 (02:23→21:47)
[2019-03-07] MEDS: ACETAMINOPHEN 500 MG TAB PO SCH ×3 (05:25→21:47)
[2019-03-07 05:51] LABS: Hematocrit (blood only) 29.4 % (37-47); Hemoglobin 9.8 g/dL (12.0-16.0); Mean Corpuscular Hgb Conc 33.3 g/dL (32-36); Mean Corpuscular Volume 87.8 fL (80-100); Mean Platelet Volume 9.5 fL (7.4-10.4); Platelet Count 192 K/uL (130-400); RDW Standard Deviation 51.5 fL (36.4-46.3); Red Blood Count 3.35 M/uL (4.2-5.4); White Blood Count 9.34 K/uL (4.8-10.8)
[2019-03-07 06:23] LABS: BUN Creatinine Ratio 11.6 (10-20); Calcium 9.2 mg/dl (8.5-10.1); Creatinine Clr Calc Pharmacy 77.1 ml/min; Est GFR (African American) 99.1; Est GFR (Non-African American) 85.5; Potassium 3.1 mmol/L (3.5-5.1)
[2019-03-07] MEDS: PANCREAZE (LIPASE 4,200U) CAP PO SCH ×3 (08:10→17:48)
[2019-03-07] MEDS ORDERED: VANCOMYCIN CONSULT ACTIVE PRN (08:42)
[2019-03-07] MEDS: MULTIVITAMIN TAB PO SCH (09:08)
[2019-03-07] MEDS: FOLIC ACID 1 MG TAB PO SCH ×2 (09:09→10:20)
[2019-03-07] MEDS: THIAMINE HCL 100 MG TAB PO SCH (09:09)
[2019-03-07] MEDS: POTASSIUM CHLORIDE 20 MEQ TABCR PO SCH ×3 (09:10→22:40)
[2019-03-07] MEDS: GABAPENTIN 300 MG CAP PO SCH ×3 (09:11→21:47)
[2019-03-07] MEDS: chlordiazePOXIDE HCl 25 MG CAP PO SCH ×3 (09:13→21:46)
[2019-03-07] MEDS: DOCUSATE SODIUM 100 MG CAP PO SCH ×2 (09:13→21:47)
[2019-03-07] MEDS: CALCIUM CARBONATE 500 MG CHEWABLE TAB PO PRN (09:14)
[2019-03-07] MEDS ORDERED: VANCOMYCIN HCL 1,500 MG in SODIUM CHLORIDE 0.9% 500 ML IV ONE (09:15)
[2019-03-07] MEDS: FERROUS SULFATE 325 MG TAB PO SCH ×2 (09:18→17:48)
[2019-03-07] MEDS: DULOXETINE HCL 60 MG CAP PO SCH (09:22)
[2019-03-07] MEDS: PANTOprazole 40 MG TAB PO SCH ×2 (09:29→21:46)
--- NOTE | 2019-03-07 10:17 | Orthopedic Progress Note ---
Date of Service March 07, 2019 Assessment & Plan (1) Bimalleolar ankle fracture: POD#3 Ankle irrigation and debridement, External Fixator Application(Left) bimalleolar ankle fracture, repair 12 cm laceration -Pain management -PT/OT- NWB LLE -DVT prophylaxis-SCDs, Aspirin 81mg BID -Will discuss case with Dr. Erickson. Patient does have a seroma that has formed medial aspect of calcaneus. Having increased erythema in her foot. Was started on Cefepime by Med service. New dressing applied today. Subjective POD#3 left ankle I&D and application of ex fix. Doing well overall, however having increased erythema of foot. Was nauseous earlier. Started on Cefepime. Review of Systems Review of Systems: All systems reviewed & are unremarkable except as noted in HPI & below Physical Exam Physical Exam: Dressing removed with moderate serous drainage. Has developed fluid collection medial ankle fracture blister vs seroma. Increasing erythema in foot. Laceration is well approximated with mild drainage and minimal purulence. Toes mobile, sensation and n/v status intact. No calf tenderness. Results & Data Vital Signs (Past 12 Hours) Vital Signs Temp Pulse Pulse Resp BP Pulse Ox 03/07/19 07:42 37.3 C 103 H 16 133/83 95 03/07/19 03:42 37.1 C 95 H 14 127/84 95 03/06/19 23:34 92 H 03/06/19 22:58 37.5 C 94 H 14 133/84 94 (1) Bimalleolar ankle fracture Encounter type: initial encounter Fracture type: open Laterality: left Open fracture type: open type III Qualified Code(s): S82.842C - Displaced bimalleolar fracture of left lower leg, initial encounter for open fracture type IIIA, IIIB, or IIIC
[2019-03-07] MEDS: ASPIRIN 81 MG ECTAB PO SCH ×2 (10:23→21:47)
[2019-03-07] MEDS: CEFEPIME 2,000 MG in SYRINGE 7.5 ML IV SCH ×2 (10:24→17:51)
--- NOTE | 2019-03-07 10:49 | Pharmacy Report ---
Pharmacy Abx Initial Consult - Date of Service March 07, 2019 - Pharmacy Dosing Scope Date of Consult: 03/07/19 Consultation requested by: Dr. Capps Pharmacy is consulted to initiate Vancomycin IV dosing therapy, order appropriate labs and adjust drug dose/frequency. - Subjective The patient is a 53 year old F admitted on 03/04/19 19:23. - Objective Height: 5 ft 6 in Weight: 65.4 kg Vital Signs (Past 12hrs): Vital Signs Temp Pulse Pulse Resp BP Pulse Ox 03/07/19 07:42 37.3 C 103 H 16 133/83 95 03/07/19 03:42 37.1 C 95 H 14 127/84 95 03/06/19 23:34 92 H 03/06/19 22:58 37.5 C 94 H 14 133/84 94 Lab Results (24hrs): Laboratory Tests (24 Hours) 03/07/19 03/07/19 05:19 05:19 WBC 9.34 Creatinine 0.79 Est Cr Clr Drug Dosing 77.1 Micro Results: 03/07/19 10:09 Aerobic Blood Culture - Pending Blood Anaerobic Blood Culture - Pending - Assessment & Plan Assessment 53 year old F admitted for open ankle fracture on 03/04. * Renal function at baseline * Blood culture pending * ID consulted Plan Vancomycin for treatment of SST Vancomycin IV * Estimated PK Parameters: Vd 0.7 L/kg, Deejay 0.068 hr-1, t1/2 10 hr * Loading dose: 1500 mg (23 mg/kg) * Maintenance dose: 1000 mg IV (15 mg/kg) every 12 hours * Goal trough level : 15 to 20 mcg/mL * Trough/Random level ordered for 03/09/19 @0730 Pt also on Cefepime 2gm q8h Pharmacy will continue to follow and will adjust dose/frequency as necessary. Thank you.
[2019-03-07] MEDS: SODIUM CHLORIDE 0.9% 1000ML 1,000 ML IV SCH (11:16)
--- NOTE | 2019-03-07 13:43 | Hospitalist Progress Note ---
Date of Service March 07, 2019 Assessment & Plan (1) Bimalleolar ankle fracture: Patient was taken emergently to the OR for washout orthopedics External fixator device is in place the patient was on aspirin for DVT prevention Decreasing pain in the morning of 03/07 the patient was instituted on vancomycin and cefepime. Blood cultures were obtained. I do not believe intraoperative wound cultures were obtained if the surgery to drain any fluid regarding the seroma near her ankle wound culture would be beneficial (2) Depression: Continue Cymbalta 80 mg a day because of anxiety Librium scheduled dosing was also added (3) Pancreatic insufficiency: Consider pancreatic replacement enzymes if issues at time of discharge (4) Alcohol use: Patient has had previous alcohol withdrawal in the past reportedly she is not a daily drinker and only occasional drinker however clinical intuition is concerned that this may be under reported. Patient's tremulousness and tachycardia have improved with the institution of Librium She remains on gabapentin with PRN hydralazine and we did add metoprolol scheduled plus continue as needed clonidine for blood pressure contr ol (5) Anemia: Patient's anemia is likely multifactorial not overtly macrocytic but RDW is significant for could have a mixed picture of iron deficiency and vitamin deficiency. Along with some postoperative acute blood loss anemia. Patient will have iron B12 folic acid level checked in the morning (6) DVT prophylaxis: Surgery is chosen twice daily aspirin for DVT prevention Subjective She is complaining of increasing left foot and ankle pain. The patient has had progression of discoloration of her foot concerning for infection. Patient does not have elevation of her white count but local signs and symptoms of the site were consideration and antibiotics were initiated and escalated. Her vital signs remained more stable she remains on scheduled benzodiazepines at this time Review of Systems Review of Systems: ROS: well nourished well developed. No double vision blurry vision No problems with speech or swallowing No palpitations, chest pain or pressure No Wheezing or breathing issues No abdominal pain nausea vomiting diarrhea changes in appetite or weight No burning urine urine frequency or changes in color Increasing pain of her left foot and discoloration of the skin No unusual bruising or bleeding No focused back pain or numbness or loss of strength No changes in memory or confusion Physical Exam Physical Exam: The patient appeared well nourished and normally developed. Less tremulous and anxious appearing Vital signs as documented. Head exam is unremarkable. normocephalic, atraumatic Neck is without jugular venous distension, thyromegaly, or lymphademopathy Lungs are clear to auscultation and percussion. Cardiac exam reveals Rhythm is regular. First and second heart sounds normal. Abdominal exam reveals normal bowel sounds, no masses, no organomegaly Extremities discoloration spreading of the dorsum of her left foot orthopedics did undress the foot and there is a seroma at the surgical site and bruising and erythema about the foot Neurologic exam is A&Ox3, no focal deficits, strength is equal bilateral Psychologically seems anxious Results & Data Vital Signs (Past 12 Hours) Vital Signs Temp Pulse Resp BP Pulse Ox 03/07/19 11:14 37.6 C H 104 H 20 114/76 96 03/07/19 07:42 37.3 C 103 H 16 133/83 95 03/07/19 03:42 37.1 C 95 H 14 127/84 95 (1) Bimalleolar ankle fracture Encounter type: initial encounter Fracture type: open Laterality: left Open fracture type: open type III Qualified Code(s): S82.842C - Displaced bimalleolar fracture of left lower leg, initial encounter for open fracture type IIIA, IIIB, or IIIC
[2019-03-07] MEDS: DULOXETINE HCL 20 MG CAP PO SCH (15:12)
[2019-03-07] MEDS: VANCOMYCIN HCL 1,000 MG in SODIUM CHLORIDE 0.9% 250 ML IV SCH (19:11)
[2019-03-07] MEDS: SENNA 8.6 MG TAB PO SCH (21:46)
[2019-03-08] MEDS: CEFEPIME 2,000 MG in SYRINGE 7.5 ML IV SCH ×3 (03:00→17:14)
[2019-03-08] MEDS: ONDANSETRON INJ 2 MG/ML 2 ML VIAL IV PRN ×2 (03:46→18:44)
[2019-03-08 05:52] LABS: Hematocrit (blood only) 28.8 % (37-47); Hemoglobin 9.6 g/dL (12.0-16.0); Mean Corpuscular Hgb Conc 33.3 g/dL (32-36); Mean Corpuscular Volume 88.3 fL (80-100); Mean Platelet Volume 9.1 fL (7.4-10.4); Platelet Count 172 K/uL (130-400); RDW Coefficient of Variation 16.4 % (11.5-14.5); RDW Standard Deviation 52.9 fL (36.4-46.3); Red Blood Count 3.26 M/uL (4.2-5.4); White Blood Count 6.43 K/uL (4.8-10.8)
[2019-03-08] MEDS: ACETAMINOPHEN 500 MG TAB PO SCH ×3 (06:04→22:06)
[2019-03-08 06:34] LABS: BUN Creatinine Ratio 15.6 (10-20); Calcium 9.5 mg/dl (8.5-10.1); Creatinine Clr Calc Pharmacy 65.5 ml/min; Est GFR (African American) 81.3; Est GFR (Non-African American) 70.2; Potassium 2.9 mmol/L (3.5-5.1)
[2019-03-08] MEDS: PANCREAZE (LIPASE 4,200U) CAP PO SCH ×3 (07:36→17:11)
[2019-03-08] MEDS: PANTOprazole 40 MG TAB PO SCH ×2 (07:36→19:53)
[2019-03-08] MEDS: VANCOMYCIN HCL 1,000 MG in SODIUM CHLORIDE 0.9% 250 ML IV SCH ×2 (07:36→19:45)
[2019-03-08] MEDS ORDERED: POTASSIUM CHLORIDE 20 MEQ TABCR PO STA ×2 (08:09→18:02)
[2019-03-08] MEDS ORDERED: PROMETHAZINE HCL 12.5 MG in SODIUM CHLORIDE 0.9% 50 ML IV PRN (08:51)
[2019-03-08] MEDS: POTASSIUM CHLORIDE 40 MEQ in SODIUM CHLORIDE 0.9% 1000ML 1,000 ML IV SCH ×2 (09:25→19:45)
[2019-03-08] MEDS: POTASSIUM CHLORIDE / WTR 10 MEQ/100 ML PLCT IV SCH ×2 (09:25→14:20)
--- NOTE | 2019-03-08 10:45 | Infectious Disease Consult ---
Date of Consultation March 08, 2019 Assessment & Plan (1) Open ankle fracture: would continue IV abx for now, pending cultures, if negative would give 10 days Augmentin post d/c due to open fracture. ? low grade fever due to etoh dependence also. (2) Alcohol dependence: History of Present Illness Attending Physician: Becca Irby MD pt admitted due to fall and open fracture left ankle. was taken to OR for fixa tion, tolerated well. walking in halls with PT prior to my eval. overall states she is doing well. pain is improving. no f/c. no drainage or bleeding from wound. eating well. denies cp, sob, cough, no n/v/d, no abd pain, no gu symptoms. had temp 37.6 on 03/06, 37.7 on 03/07, placed on emperic cefepime and vanco due to open fracture. blood cultures obtained on 03/07, pending, no OR cultures. Ct abd, head, chest, c spine all negative. wbc initially 11, now 6. overall feeling better, has h/o etoh abuse Allergies Allergy/AdvReac Type Severity Reaction Status Date / Time No Known Allergies Allergy Verified 03/04/19 14:51 Home Medications Home Medications Medication Instructions Recorded Confirmed Type duloxetine [Cymbalta] 60 mg PO QAM 08/13/18 03/04/19 History folic acid 1 mg PO QAM 08/13/18 03/04/19 History gabapentin 300 mg PO TID 08/13/18 03/04/19 History hydroxyzine pamoate [Vistaril] 50 mg PO BID PRN 08/13/18 03/04/19 History vitamin B complex 1 tab PO QAM 08/13/18 03/04/19 History ascorbic acid (vitamin C) [Vitamin 100 mg PO QAM 02/22/19 03/04/19 History C] cholecalciferol (vitamin D3) 5,000 unit PO QAM 02/22/19 03/04/19 History [Vitamin D3] cyanocobalamin (vitamin B-12) 1,000 mcg PO QAM 02/22/19 03/04/19 History [Vitamin B-12] duloxetine 20 mg PO DAILY 02/22/19 03/04/19 History ergocalciferol (vitamin D2) 50,000 unit PO WK 02/22/19 03/04/19 History [Vitamin D2] [id number] [Creon] 1 cap PO TIDM 02/22/19 03/04/19 History Patient History Medical History Anxiety (Chronic) HAS UPCOMING LALA WITH PSYCH Depression (Chronic) HAS UPCOMING LALA WITH PSYCH Neuropathy (Chronic) OF FEET Nicotine dependence (Chronic) Alcohol withdrawal seizure (Resolved) NOT REPORTED BY PATIENT AT TIME OF PAT CALL - NOTED IN EMR PREVIOUSLY Abnormal TSH Abnormal blood sugar A1C LEVELS FLUCTUATE Bowel habit changes STARTED 1 YR AGO/LOOSE STOOLS AFTER EATING Chronic pancreatitis Cirrhosis of liver "COMPROMISED LIVER" Diabetes mellitus TYPE 2 "SECONDARY" History of alcohol consumption History of dizziness 2 WEEKS AGO, DIZZINESS AND NAUSEA, DENIES FEVER - HAS FULLY RESOLVED/EDU PROVIDED History of fracture TAILBONE - FLARES UP WITH WEATHER CHANGES IPMN (intraductal papillary mucinous neoplasm) Insomnia Lipoma No family history of adverse response to anesthesia Pancreatic insufficiency Polycystic ovarian syndrome Vitamin D deficiency Surgical History History of tooth extraction Family History Other Family history of breast cancer in mother Family history of breast cancer in sister Social History Preferred Language: [place] Communication Ability: Effective Beliefs That Will Affect Care: None marital status: Current Living Situation: Alone Other Information That Helps Us Care for You: No Feels Safe at Home: Yes Smoking Status: Current every day smoker Tobacco Type: cigarettes Cigarettes Per Day: 1PPD - ADVISED NPO Do You Dip or Chew Tobacco: No Second Hand Exposure: Yes Tobacco Cessation Education Requested by Patient: No Hx Alcohol Use: Yes Alcohol type: wine Hx Substance Use: No Review of Systems Review of Systems: All systems reviewed & are unremarkable except as noted in HPI & below Physical Exam Constitutional: WD/WN, vitals as above Eyes: PERRL, conjunctivae normal, anicteric sclerae ENMT: external ear and nose normal, oropharynx normal Neck: normal visual inspection Respiratory: normal respiratory effort, lungs clear to auscultation Cardiovascular: RRR, no murmur, no edema Gastrointestinal (Abdomen): normal bowel sounds, soft, nontender, no hepatosplenomegaly Musculoskeletal: no cyanosis or clubbing, extremities motor strength 5/5 Skin: no rashes, warm and dry lle dressing c/d/i Psychiatric: A+Ox3, euthymic affect Results & Data Vital Signs (Past 12 Hours) Vital Signs Temp Pulse Pulse Resp BP BP Pulse Ox 03/08/19 07:43 37.5 C 102 H 16 114/74 94 03/08/19 04:09 37.0 C 110 H 16 119/78 93 03/07/19 23:29 37.0 C 117 H 16 117/76 95 03/07/19 23:07 113 H (1) Alcohol dependence Substance use status: other alcohol-induced disorder Qualified Code(s): F10.288 - Alcohol dependence with other alcohol-induced disorder (2) Open ankle fracture Encounter type: initial encounter Laterality: left Open fracture type: open type III Qualified Code(s): S82.892C - Other fracture of left lower leg, initial encounter for open fracture type IIIA, IIIB, or IIIC
--- NOTE | 2019-03-08 12:58 | Hospitalist Progress Note ---
Date of Service March 08, 2019 Assessment & Plan (1) Bimalleolar ankle fracture: - Following fall at home; s/p ankle irrigation and debridement, external fixator application bimalleolar ankle fracture and repair of 12 cm laceration. - Blood cultures were negative; did have open wound -- wound culture was not obtained intraoperatively. - Continue Cefepime/Vancomycin for empiric coverage - will likely need to complete 7-10 day course. - NWB as tolerated on LLE. - DVT ppx: Asprin 81 mg BID. - PT/OT -- pt. will need rehab placement; discharge to rehab pending improvement in labs. (2) Anemia: - B12 level WNL, folate level was 18.68. - Iron studies c/w iron deficiency anemia. - Continue folic acid, thiamine and ferrous sulfate. - Monitor CBC closely, transfuse for hgb <7. (3) Metabolic alkalosis: - Likely related to severe nausea/vomiting. - Started NS + 40 mEq KCl at 100 cc/hr. - Zofran and Phenergan prn N/V (monitor QTc closely with serial EKGs) - Repeat BMP is pending at 5 pm. (4) Alcohol use: - H/o ETOH withdrawal during previous admissions; most recently reports she is only an occasional drinker. - ETOH level was not obtained at admission. - No evidence of severe withdrawal but pt. is tachycardic and tremulous. - Librium 25 mg TID, Gabapentin 300 mg TID scheduled. - Clonidine and Hydralazine prn ETOH induced HTN; Ativan prn. - Continue thiamine and folic acid. (5) Depression: - Continue Cymbalta as prescribed. (6) Pancreatic insufficiency: - Pancreatic enzyme replacement AC. (7) Electrolyte abnormality: - K level 2.9 in setting of N/V -- ordered KCl 40 mEq PO. - NS + 40 mEq KCl at 100 cc/hr. - Repeat labs this evening. (8) DVT prophylaxis: - Aspirin 81 mg BID. Dispo: PCU in post op period; will remain inpt, continue IV abx and PT/OT. Discharge to rehab following clinical improvement -- will need close follow up with orthopedics. Supervising Physician Co-Signing Physician Notes PA Supervision Note: I did not personally see or examine the patient today, but I verified all jay points of [facility] Kelley's assessment and plan with the following exceptions/addit ions: None Subjective Pt is doing well this morning during rounds. She states pain in left foot is well controlled, rates it as a 5/10 on pain scale. Pt. was nauseous this morning, stated that she has had persistent N/V throughout course of this admission. Has been receiving Zofran prn with minimal improvement. Refused morning meds due to nausea. Nurse administered tums followed by episode of vomiting. Pt. did take Protonix without difficulty. Nausea resolved by rounds (around 10 am) and she took the rest of her PO AM meds. The overnight nurse did report that the patient was gagging herself in an attempt to vomit. ?Psych history -- consider psych consult if necessary. She is having regular BMs. Denies chest pain, SOB, abd pain. Review of Systems Review of Systems: All systems reviewed & are unremarkable except as noted in HPI & below Constitutional: no fever, no chills, no fatigue, no weakness and no anorexia Respiratory: no cough, no dyspnea, no dyspnea on exertion and no wheezing Cardiovascular: no chest pain, no palpitations and no edema Gastrointestinal: + nausea and + vomiting; no abdominal pain, no constipation and no diarrhea/loose stools Genitourinary: no difficulty urinating Musculoskeletal: + joint pain; no back pain Integumentary: no non-healing lesions Allergy / Immunological: no rash Physical Exam Physical Exam: General: Resting comfortably in no apparent distress HEENT: NC/AT; PERRLA with EOMI; [place] conjunctiva, MMM. No erythema of posterior pharynx Neck: Supple and nontender Cardiac: RRR Lungs: CTA bilaterally Abdomen: Bowel normoactive X 4; Nontender to palpation Extremities: Warm. No edema present Neuro: No focal weakness Skin: No rash; did not visualize surgical site, dressing in place. Results & Data Vital Signs (Past 12 Hours) Vital Signs Temp Pulse Pulse Resp BP BP Pulse Ox 03/08/19 12:06 105 H 03/08/19 11:47 37.1 C 101 H 17 118/78 91 03/08/19 07:43 37.5 C 102 H 16 114/74 94 03/08/19 04:09 37.0 C 110 H 16 119/78 93 Laboratory Results 03/08/19 03/08/19 03/08/19 Range/Units 05:32 05:32 05:32 WBC 6.43 (4.8-10.8) K/uL RBC 3.26 L (4.2-5.4) M/uL Hgb 9.6 L (12.0-16.0) g/dL Hct 28.8 L (37-47) % MCV 88.3 (80-100) fL MCH 29.4 (25-34) pg MCHC 33.3 (32-36) g/dL RDW Std Deviation 52.9 H (36.4-46.3) fL RDW Coeff of Ethel 16.4 H (11.5-14.5) % Plt Count 172 (130-400) K/uL MPV 9.1 (7.4-10.4) fL Sodium 131 L (136-145) mmol/L Potassium 2.9 L (3.5-5.1) mmol/L Chloride 85 L (98-107) mmol/L Carbon Dioxide 42 H* (21-32) mmol/L Anion Gap 4.0 (3-11) BUN 15 D (7-18) mg/dl Creatinine 0.93 (0.6-1.2) mg/dl Est Cr Clr Drug Dosing 65.5 ml/min Est GFR ( Amer) 81.3 Est GFR (Non-Af Amer) 70.2 BUN/Creatinine Ratio 15.6 (10-20) Glucose 182 H (70-99) mg/dl Calcium 9.5 (8.5-10.1) mg/dl Magnesium 2.3 (1.8-2.4) mg/dl (1) Bimalleolar ankle fracture Encounter type: initial encounter Fracture type: open Laterality: left Open fracture type: open type III Qualified Code(s): S82.842C - Displaced bimalleolar fracture of left lower leg, initial encounter for open fracture type IIIA, IIIB, or IIIC
[2019-03-08] MEDS ORDERED: POTASSIUM CHLORIDE 20 MEQ TABCR PO ONE ×3 (13:00→21:00)
--- NOTE | 2019-03-08 13:24 | Orthopedic Progress Note ---
Date of Service March 08, 2019 Assessment & Plan (1) Bimalleolar ankle fracture: POD#4 Ankle irrigation and debridement, External Fixator Application(Left) bimalleolar ankle fracture, repair 12 cm laceration -Pain management -PT/OT- NWB LLE -DVT prophylaxis-SCDs, Aspirin 81mg BID -Dressing changed today. Fx blister at the medial ankle was ruptured. No obvious signs of worsening infection today. Discussed later removal of ex fix and ORIF of the bimalleolar ankle fx with the patient and with medicine. -D/C planning--may hold on D/C to continue IV antibiotics and prepare for ORIF if the procedure can be done this week. Subjective Left ankle pain is still significant but states over the past few hours in the AM, her pain was improved. Physical Exam Constitutional: WD/WN, vitals as above Musculoskeletal: Left ankle: ex fix in place. Mild erythema of the dorsal foot. Medial ankle fx blister measuring ~6 cm. The area was prepped with betadine x 2 and the distal aspect was ruptured to express the serosanguinous fluid. Skin over the blister kept in place. The Medial ankle laceration is well approximated. No erythema. No drainage. Psychiatric: A+Ox3, euthymic affect Results & Data Vital Signs (Past 12 Hours) Vital Signs Temp Pulse Pulse Resp BP BP Pulse Ox 03/08/19 12:06 105 H 03/08/19 11:47 37.1 C 101 H 17 118/78 91 03/08/19 07:43 37.5 C 102 H 16 114/74 94 03/08/19 04:09 37.0 C 110 H 16 119/78 93 (1) Bimalleolar ankle fracture Encounter type: initial encounter Fracture type: open Laterality: left Open fracture type: open type III Qualified Code(s): S82.842C - Displaced bimalleolar fracture of left lower leg, initial encounter for open fracture type IIIA, IIIB, or IIIC
[2019-03-08] MEDS: HYDROmorphone INJ 0.5 MG/0.5 ML SYR IV PRN ×2 (13:34→20:07)
[2019-03-08] MEDS: DULOXETINE HCL 60 MG CAP PO SCH (14:18)
[2019-03-08] MEDS: POTASSIUM CHLORIDE 20 MEQ TABCR PO SCH (14:19)
[2019-03-08] MEDS: chlordiazePOXIDE HCl 25 MG CAP PO SCH ×3 (14:29→19:53)
[2019-03-08] MEDS: GABAPENTIN 300 MG CAP PO SCH ×3 (14:29→19:53)
[2019-03-08] MEDS: THIAMINE HCL 100 MG TAB PO SCH (14:30)
[2019-03-08] MEDS: FOLIC ACID 1 MG TAB PO SCH (14:30)
[2019-03-08] MEDS: MULTIVITAMIN TAB PO SCH (14:31)
[2019-03-08] MEDS: ASPIRIN 81 MG ECTAB PO SCH ×2 (14:31→19:54)
[2019-03-08] MEDS: DOCUSATE SODIUM 100 MG CAP PO SCH ×2 (14:31→19:53)
[2019-03-08] MEDS: DULOXETINE HCL 20 MG CAP PO SCH (14:31)
[2019-03-08] MEDS: FERROUS SULFATE 325 MG TAB PO SCH ×2 (14:32→17:11)
[2019-03-08 17:56] LABS: BUN Creatinine Ratio 18.5 (10-20); Calcium 8.9 mg/dl (8.5-10.1); Creatinine Clr Calc Pharmacy 67.7 ml/min; Est GFR (African American) 84.6
[2019-03-08 18:09] LABS: Ferritin 103.5 ng/ml (8-388)
[2019-03-08] MEDS: SENNA 8.6 MG TAB PO SCH (19:53)
[2019-03-09] MEDS: CEFEPIME 2,000 MG in SYRINGE 7.5 ML IV SCH ×3 (00:49→18:12)
[2019-03-09] MEDS: ONDANSETRON INJ 2 MG/ML 2 ML VIAL IV PRN ×2 (00:49→14:33)
[2019-03-09] MEDS: POTASSIUM CHLORIDE 40 MEQ in SODIUM CHLORIDE 0.9% 1000ML 1,000 ML IV SCH ×2 (05:30→15:47)
[2019-03-09] MEDS: ACETAMINOPHEN 500 MG TAB PO SCH ×3 (06:30→21:25)
[2019-03-09] MEDS ORDERED: VANCOMYCIN TROUGH ONE (07:30)
[2019-03-09 07:57] LABS: Hematocrit (blood only) 27.8 % (37-47); Hemoglobin 9.1 g/dL (12.0-16.0); Mean Corpuscular Hgb Conc 32.7 g/dL (32-36); Mean Corpuscular Volume 88.5 fL (80-100); Mean Platelet Volume 9.6 fL (7.4-10.4); Platelet Count 232 K/uL (130-400); RDW Coefficient of Variation 16.3 % (11.5-14.5); Red Blood Count 3.14 M/uL (4.2-5.4); White Blood Count 4.04 K/uL (4.8-10.8)
[2019-03-09 08:37] LABS: BUN Creatinine Ratio 17.5 (10-20); Calcium 9.3 mg/dl (8.5-10.1); Creatinine Clr Calc Pharmacy 69.2 ml/min; Est GFR (African American) 86.9; Magnesium 2.3 mg/dl (1.8-2.4); Potassium 3.7 mmol/L (3.5-5.1)
[2019-03-09] MEDS: THIAMINE HCL 100 MG TAB PO SCH (08:55)
[2019-03-09] MEDS: MULTIVITAMIN TAB PO SCH (08:56)
[2019-03-09] MEDS: GABAPENTIN 300 MG CAP PO SCH ×3 (08:56→20:11)
[2019-03-09] MEDS: chlordiazePOXIDE HCl 25 MG CAP PO SCH ×3 (08:56→20:14)
[2019-03-09] MEDS: PANTOprazole 40 MG TAB PO SCH ×2 (08:56→20:11)
[2019-03-09] MEDS: FERROUS SULFATE 325 MG TAB PO SCH ×2 (08:57→18:11)
[2019-03-09] MEDS: DOCUSATE SODIUM 100 MG CAP PO SCH ×2 (08:57→20:11)
[2019-03-09] MEDS: ASPIRIN 81 MG ECTAB PO SCH ×2 (08:57→20:11)
[2019-03-09] MEDS: DULOXETINE HCL 60 MG CAP PO SCH (08:57)
[2019-03-09] MEDS: PANCREAZE (LIPASE 4,200U) CAP PO SCH ×3 (08:57→15:47)
[2019-03-09] MEDS: VANCOMYCIN HCL 1,000 MG in SODIUM CHLORIDE 0.9% 250 ML IV SCH ×2 (08:58→21:25)
[2019-03-09] MEDS: FOLIC ACID 1 MG TAB PO SCH (08:59)
[2019-03-09] MEDS: OXYCODONE HCL IR 5 MG TAB (IMMEDIATE RELEASE) PO PRN ×3 (09:02→23:33)
[2019-03-09] MEDS: CALCIUM CARBONATE 500 MG CHEWABLE TAB PO PRN ×2 (11:22→21:45)
[2019-03-09] MEDS: HYDROmorphone INJ 0.5 MG/0.5 ML SYR IV PRN ×2 (11:22→18:18)
--- NOTE | 2019-03-09 12:17 | Hospitalist Progress Note ---
Date of Service March 09, 2019 Assessment & Plan (1) Bimalleolar ankle fracture: - Following fall at home; s/p ankle irrigation and debridement, external fixator application bimalleolar ankle fracture and repair of 12 cm laceration. - Blood cultures negative; did have open wound -- wound culture was not obtained intraoperatively. - Dilaudid IV and Oxycodone prn pain. - Cefepime/Vancomycin for empiric coverage; will convert to PO Keflex if MRSA swab is negative. - DVT ppx with Asprin 81 mg BID. - NWB on LLE; PT/OT recommending inpt rehab as pt lives alone. - deli department manager is following, plan for rehab placement over next 24-48 hours. (2) Nausea and vomiting: - May be self-induced related to underlying psych issues (gags herself at night after eating large amount of food) vs. medication induced vs. GI related. - Per pt, she is scheduled for an outpatient EGD this summer. Will need to f/u for procedure after resolution of acute issues. - Ativan, Zofran and Phenergan prn N/V. - IV fluids at 100 cc/hr. - PPI BID. - Consider GI consult if N/V is persistent; can also consider psych consult if there is high concern for eating disorder, otherwise should be addressed as outpatient. (3) Metabolic alkalosis: - Likely related to severe nausea/vomiting; now improving. - NS + 40 mEq KCl at 100 cc/hr. - Monitor repeat BMP at 16:00. (4) Anemia: - B12 level WNL, folate level was 18.68. - Iron studies c/w iron deficiency anemia. - Continue folic acid, thiamine and ferrous sulfate. - Monitor CBC frequently. (5) Alcohol use: - H/o ETOH withdrawal during previous admissions; most recently reports she is an occasional drinker. - ETOH level was not obtained at admission. - No evidence of severe withdrawal; tachycardia and tremors improved. - Librium 25 mg TID scheduled. - Clonidine and Hydralazine prn ETOH induced HTN; Ativan prn. - Continue thiamine and folic acid. (6) Depression: - Continue Cymbalta as prescribed. (7) Pancreatic insufficiency: - Pancreatic enzyme replacement AC. (8) Electrolyte abnormality: - No additional replacement required; continue IV fluids with KCl 40 mEq. - Monitor labs daily. (9) DVT prophylaxis: - Aspirin 81 mg BID. Dispo: Downgrade to med/surg, no indication for telemetry; discharge to rehab pending placement, likely over next 24-48 hours. Supervising Physician Co-Signing Physician Notes PA Supervision Note: I did not personally see or examine the patient today, but I verified all jay p oints of [facility] Kelley's assessment and plan with the following exceptions/additions: None Subjective Pt. had nausea overnight with vomiting. Nurse reported that patient was gagging herself to initiate vomiting. Nausea had improved throughout the day yesterday then returned overnight. Nurse also reported that patient was eating large amounts of food in the room. She initially denied nausea at home but later reported that she has an EGD scheduled this month due to N/V at home. Pain in foot is uncontrolled this morning, received Oxycodone with minimal relief. Plan for rehab placement -- discussed with registered nurse hh case manager. Review of Systems Review of Systems: All systems reviewed & are unremarkable except as noted in HPI & below Constitutional: no fever, no chills, no fatigue, no weakness and no anorexia Respiratory: no cough, no dyspnea, no dyspnea on exertion and no wheezing Cardiovascular: no chest pain, no palpitations and no edema Gastrointestinal: + nausea and + vomiting; no abdominal pain, no constipation and no diarrhea/loose stools Genitourinary: no difficulty urinating Musculoskeletal: + joint pain (Left foot ); no back pain Integumentary: no non-healing lesions Allergy / Immunological: no rash Physical Exam Physical Exam: General: Resting comfortably in no apparent distress HEENT: NC/AT; PERRLA with EOMI; [place] conjunctiva, MMM. No erythema of posterior pharynx Neck: Supple and nontender Cardiac: RRR Lungs: CTA bilaterally Abdomen: Bowel normoactive X 4; Nontender to palpation Extremities: Warm. No edema present Neuro: No focal weakness Skin: No rash; surgical site with dressing in place. Results & Data Vital Signs (Past 12 Hours) Vital Signs Temp Pulse Resp BP BP Pulse Ox 03/09/19 11:32 37.6 C H 102 H 16 122/80 99 03/09/19 07:13 37.0 C 102 H 17 124/83 97 03/09/19 04:00 37.3 C 100 H 16 123/83 93 Laboratory Results 03/09/19 03/09/19 03/09/19 Range/Units 07:21 07:21 07:21 WBC 4.04 L (4.8-10.8) K/uL RBC 3.14 L (4.2-5.4) M/uL Hgb 9.1 L (12.0-16.0) g/dL Hct 27.8 L (37-47) % MCV 88.5 (80-100) fL MCH 29.0 (25-34) pg MCHC 32.7 (32-36) g/dL RDW Std Deviation 53.0 H (36.4-46.3) fL RDW Coeff of Etehl 16.3 H (11.5-14.5) % Plt Count 232 (130-400) K/uL MPV 9.6 (7.4-10.4) fL Sodium 135 L (136-145) mmol/L Potassium 3.7 D (3.5-5.1) mmol/L Chloride 92 L (98-107) mmol/L Carbon Dioxide 37 H (21-32) mmol/L Anion Gap 6.0 (3-11) BUN 15 (7-18) mg/dl Creatinine 0.88 (0.6-1.2) mg/dl Est Cr Clr Drug Dosing 69.2 ml/min Est GFR ( Amer) 86.9 Est GFR (Non-Af Amer) 75.0 BUN/Creatinine Ratio 17.5 (10-20) Glucose 171 H (70-99) mg/dl Calcium 9.3 (8.5-10.1) mg/dl Magnesium 2.3 (1.8-2.4) mg/dl Iron (35-150) mcg/dl Transferrin (200-360) mg/dl Transferrin % Sat (15-50) % Ferritin (8-388) ng/ml Vancomycin Trough 12.9 (See Comment) mcg/ml 03/08/19 Range/Units 17:16 WBC (4.8-10.8) K/uL RBC (4.2-5.4) M/uL Hgb (12.0-16.0) g/dL Hct (37-47) % MCV (80-100) fL MCH (25-34) pg MCHC (32-36) g/dL RDW Std Deviation (36.4-46.3) fL RDW Coeff of Ethel (11.5-14.5) % Plt Count (130-400) K/uL MPV (7.4-10.4) fL Sodium 132 L (136-145) mmol/L Potassium 3.0 L (3.5-5.1) mmol/L Chloride 87 L (98-107) mmol/L Carbon Dioxide 41 H* (21-32) mmol/L Anion Gap 4.0 (3-11) BUN 17 (7-18) mg/dl Creatinine 0.90 (0.6-1.2) mg/dl Est Cr Clr Drug Dosing 67.7 ml/min Est GFR ( Amer) 84.6 Est GFR (Non-Af Amer) 73.0 BUN/Creatinine Ratio 18.5 (10-20) Glucose 167 H (70-99) mg/dl Calcium 8.9 (8.5-10.1) mg/dl Magnesium (1.8-2.4) mg/dl Iron 14 L (35-150) mcg/dl Transferrin 186 L (200-360) mg/dl Transferrin % Sat 5 L (15-50) % Ferritin 103.5 (8-388) ng/ml Vancomycin Trough (See Comment) mcg/ml (1) Bimalleolar ankle fracture Encounter type: initial encounter Fracture type: open Laterality: left Open fracture type: open type III Qualified Code(s): S82.842C - Displaced bimalleolar fracture of left lower leg, initial encounter for open fracture type IIIA, IIIB, or IIIC
--- NOTE | 2019-03-09 13:28 | Pharmacy Report ---
Pharmacy Abx Dose Short Note - Date of Service March 09, 2019 - Assessment & Plan Assessment 53 year old F receiving vancomycin for treatment of SST- open ankle fracture Day # 3 of antimicrobial therapy. Plan Vancomycin * Trough level of 12.9 mcg/mL is therapeutic for SST, however given open fracture would like to aim for higher trough of at least 15 * Change dose to 1000 mg q10 H * Goal trough level for 15-20 mcg/mL * Trough ordered for 03/11 @0230 Pharmacy will continue to follow and will adjust dose/frequency as necessary. Thank you.
[2019-03-09] MEDS: DULOXETINE HCL 20 MG CAP PO SCH (15:47)
[2019-03-09 16:40] LABS: BUN Creatinine Ratio 16.8 (10-20); Calcium 8.7 mg/dl (8.5-10.1); Creatinine Clr Calc Pharmacy 74.3 ml/min; Est GFR (African American) 94.7; Est GFR (Non-African American) 81.7; Potassium 3.9 mmol/L (3.5-5.1)
--- NOTE | 2019-03-09 19:23 | Orthopedic Progress Note ---
Date of Service March 09, 2019 Assessment & Plan (1) Bimalleolar ankle fracture: POD#5 Ankle irrigation and debridement, External Fixator Application(Left) bimalleolar ankle fracture, repair 12 cm laceration -Pain management -PT/OT- NWB LLE -DVT prophylaxis-SCDs, Aspirin 81mg BID -Ice/elevation -Dressing changed today. Fx blister at the medial ankle was ruptured. No obvious signs of worsening infection today. -Wound care recs appreciated for blood blisters -D/C planning Subjective Post Operative Progress Note Patient seen sitting in chair at bedside, comfortable, denies complaints, pain well controlled, no acute issues. Review of Systems Review of Systems: All systems reviewed & are unremarkable except as noted in HPI & below Constitutional: as per Subjective / HPI Physical Exam Physical Exam: LLE NVSI +EHL/FHL SILT grossly, +2 DP pulse, compartments soft NT, dressing cdi. Constitutional: WD/WN, vitals as above Results & Data Vital Signs (Past 12 Hours) Vital Signs Temp Pulse Resp BP BP Pulse Ox 03/09/19 16:21 36.9 C 105 H 16 115/80 96 03/09/19 13:55 95 H 16 124/83 92 03/09/19 11:32 37.6 C H 102 H 16 122/80 99 (1) Bimalleolar ankle fracture Encounter type: initial encounter Fracture type: open Laterality: left Open fracture type: open type III Qualified Code(s): S82.842C - Displaced bimalleolar fracture of left lower leg, initial encounter for open fracture type IIIA, IIIB, or IIIC
[2019-03-09] MEDS: SENNA 8.6 MG TAB PO SCH (20:11)
[2019-03-10] MEDS: POTASSIUM CHLORIDE 40 MEQ in SODIUM CHLORIDE 0.9% 1000ML 1,000 ML IV SCH ×3 (01:29→22:25)
[2019-03-10] MEDS: CEFEPIME 2,000 MG in SYRINGE 7.5 ML IV SCH ×3 (01:29→18:22)
[2019-03-10] MEDS: ACETAMINOPHEN 500 MG TAB PO SCH ×2 (06:12→14:21)
[2019-03-10] MEDS: VANCOMYCIN HCL 1,000 MG in SODIUM CHLORIDE 0.9% 250 ML IV SCH ×2 (06:12→18:22)
[2019-03-10] MEDS: OXYCODONE HCL IR 5 MG TAB (IMMEDIATE RELEASE) PO PRN ×2 (06:13→10:47)
[2019-03-10 07:54] LABS: Hematocrit (blood only) 25.5 % (37-47); Hemoglobin 8.4 g/dL (12.0-16.0); Mean Corpuscular Hgb Conc 32.9 g/dL (32-36); Mean Corpuscular Volume 87.6 fL (80-100); Platelet Count 208 K/uL (130-400); RDW Coefficient of Variation 15.8 % (11.5-14.5); RDW Standard Deviation 51.1 fL (36.4-46.3); Red Blood Count 2.91 M/uL (4.2-5.4); White Blood Count 4.18 K/uL (4.8-10.8)
[2019-03-10 08:21] LABS: BUN Creatinine Ratio 17.5 (10-20); Calcium 8.5 mg/dl (8.5-10.1); Creatinine Clr Calc Pharmacy 77.1 ml/min; Est GFR (African American) 99.1; Est GFR (Non-African American) 85.5; Magnesium 1.9 mg/dl (1.8-2.4); Potassium 4.7 mmol/L (3.5-5.1)
[2019-03-10] MEDS: HYDROmorphone INJ 0.5 MG/0.5 ML SYR IV PRN ×3 (08:22→23:42)
[2019-03-10] MEDS: PANCREAZE (LIPASE 4,200U) CAP PO SCH ×3 (08:22→17:33)
[2019-03-10] MEDS: FERROUS SULFATE 325 MG TAB PO SCH ×2 (08:22→17:33)
[2019-03-10] MEDS: THIAMINE HCL 100 MG TAB PO SCH (09:06)
[2019-03-10] MEDS: PANTOprazole 40 MG TAB PO SCH (09:06)
[2019-03-10] MEDS: DOCUSATE SODIUM 100 MG CAP PO SCH (09:06)
[2019-03-10] MEDS: MULTIVITAMIN TAB PO SCH (09:06)
[2019-03-10] MEDS: GABAPENTIN 300 MG CAP PO SCH ×2 (09:06→14:21)
[2019-03-10] MEDS: DULOXETINE HCL 60 MG CAP PO SCH (09:06)
[2019-03-10] MEDS: FOLIC ACID 1 MG TAB PO SCH (09:07)
[2019-03-10] MEDS: ASPIRIN 81 MG ECTAB PO SCH (09:07)
[2019-03-10] MEDS: chlordiazePOXIDE HCl 25 MG CAP PO SCH ×2 (09:07→14:21)
[2019-03-10] MEDS ORDERED: COUGH DROP (SUGAR FREE) LOZ 24 LOZ/1 BOX BUCCAL PRN (11:36)
--- NOTE | 2019-03-10 13:03 | XRay Report ---
XR KUB/Abdomen 1 view CLINICAL HISTORY: 53 years-old Female presenting with abdominal distension. TECHNIQUE: Single supine view of the abdomen was obtained. COMPARISON: CT from 03/04/2019. FINDINGS: Marked stool burden in the left colon. Pathologically distended small bowel in the right mid abdomen with an apparent diameter of up to 5.6 cm though this is likely affected by magnification. Pancreatic calcifications likely indicate a history of chronic pancreatitis. Osseous structures normal. Lung bases clear. IMPRESSION: 1. Findings highly suspicious for small bowel obstruction. Recommend CT for further violation. 2. Marked stool burden in the left colon. 3. This appearance is markedly different than the most recent CT. The report will be called/faxed according to standard departmental protocol. Electronically signed by: Riki Escobedo M.D. 03/10/2019 1:02 PM
--- NOTE | 2019-03-10 14:05 | Orthopedic Progress Note ---
Date of Service March 10, 2019 Assessment & Plan (1) Bimalleolar ankle fracture: POD#6 Ankle irrigation and debridement, External Fixator Application(Left) bimalleolar ankle fracture, repair 12 cm laceration -Pain management -PT/OT- NWB LLE -DVT prophylaxis-SCDs, Aspirin 81mg BID -Ice/elevation -Daily dressing changes. Will need to continue to watch the wound for skin necrosis/infection. Plans will be for continued elevation/wound checks. -Wound care recs appreciated for blisters -Continue IV antibx. Subjective POD 6 Pt lying in bed awake and alert. Currently having pin care and dressing change by the nursing staff. States she has a lot of abdominal distention over the last few day. States last BM was 2 + days ago? Foot pain controlled currently. Having some burning pain at the site of the incision. No other complaints. Physical Exam Physical Exam: Pin sites appear benign. Ankle/Foot with swelling. Mild erythema at the incision. Mild serous drainage noted. Proximal portion of the incision appears to be demarcating. Large skin blister noted below the wound that is mostly translucent with some bloody serum in the posterior portion. Moving the toes well. Cap refill less than 2 seconds. Has decreased sensation in the toes at this time. Results & Data Vital Signs (Past 12 Hours) Vital Signs Temp Pulse Resp BP Pulse Ox 03/10/19 07:50 37 C 90 18 140/90 98 (1) Bimalleolar ankle fracture Encounter type: initial encounter Fracture type: open Laterality: left Open fracture type: open type III Qualified Code(s): S82.842C - Displaced bim alleolar fracture of left lower leg, initial encounter for open fracture type IIIA, IIIB, or IIIC
[2019-03-10] MEDS: DULOXETINE HCL 20 MG CAP PO SCH (14:20)
--- NOTE | 2019-03-10 14:29 | Hospitalist Progress Note ---
Date of Service March 10, 2019 Assessment & Plan (1) Bimalleolar ankle fracture: - Following fall at home; s/p ankle irrigation and debridement, external fixator application bimalleolar ankle fracture and repair of 12 cm laceration. - Blood cultures negative; did have open wound -- wound culture was not obtained intraoperatively. - Dilaudid IV and Oxycodone prn pain. - Cefepime/Vancomycin for empiric coverage; convert to Augmentin per ID rec at dc - DVT ppx with Asprin 81 mg BID - will need to use alternative while NPO for SBO - hold ASA and use enoxaparin for now - NWB on LLE; PT/OT recommending inpt rehab as pt lives alone. - industrial safety and health manager is following, plan for rehab placement - per surgery - patient with significant drainage from blistering. Will need to monitor skin for necrosis. Will likely need to return to the OR on Friday as she will probably still be here due to new SBO (2) SBO (small bowel obstruction): As seen on KUB today, follow up CT 03/10 ordered showing: IMPRESSION: 1. Findings are consistent with a small bowel obstruction. A transition point is identified in the mid pelvis, and this is likely on the basis of adhesions. 2. No intraperitoneal free air is seen. No focally thick walled bowel loops are identified, and there is no pneumatosis intestinalis or portal venous gas. 3. Again seen are are tethered loops of the left colon identified in the left lower quadrant, likely representing postinflammatory change with possible colocolonic fistula. This is unchanged from 06/26/2017 and may be related to previous diverticulitis. Nonemergent GI follow-up is again recommended. 4. A dilated tubular structure in the right adnexa likely represents hydrosalpinx. 5. Changes of chronic pancreatitis are similar to previous. 6. There is trace perihepatic fluid and a trace left pleural effusion. -Could have had previous diverticulitis with possible fistula formation seen on CT with subsequent adhesive disease - NG tube to LIS - Surgical consult appreciated -Continue IV fluids -Hold all oral medications and replace with IV when able to (3) Nausea and vomiting: - May have an element of underlying psych issues (gags herself at night after eating large amount of food), however, today found to have SBO - Per pt, she is scheduled for an outpatient EGD this summer. Will need to f/u for procedure after resolution of acute issues. - Ativan, Zofran and Phenergan prn N/V. - NSS 40K at 100 cc/hr. - PPI BID - will change to famotidine IV push due to NPO status (4) Metabolic alkalosis: - Likely related to severe nausea/vomiting; now improving. - NS + 40 mEq KCl at 100 cc/hr. - labs am (5) Anemia: - B12 level WNL, folate level was 18.68. - Iron studies c/w iron deficiency anemia. - Continue folic acid, thiamine and ferrous sulfate when able to take po, could change to IV if necessary - Monitor CBC frequently. (6) Alcohol use: - H/o ETOH withdrawal during previous admissions; most recently reports she is an occasional drinker. - ETOH level was not obtained at admission. - No evidence of severe withdrawal; tachycardia and tremors improved. - Librium 25 mg TID scheduled - npo due to SBO, can utilize prn ativan if necessary - Clonidine and Hydralazine prn ETOH induced HTN; Ativan prn. - Thiamine and Folic acid replacement held for now for npo status (7) Depression: - Continue Cymbalta as prescribed. (8) Pancreatic insufficiency: - Pancreatic enzyme replacement AC. (9) Electrolyte abnormality: - No additional replacement required; continue IV fluids with KCl 40 mEq. - Monitor labs daily. (10) DVT prophylaxis: - Hold Aspirin 81 mg BID while NPO and give enoxaparin Supervising Physician Co-Signing Physician Notes UBALDO Supervision note: I have personally seen and examined the patient and discussed and verified the jay points of the history and physical along with the plan with UBALDO Sosa with the following exceptions and/or additions: Patient seen today in conjunction with the general surgeon on-call and discussed her case at length with the patient and her mother at bedside. NG tube took a while to get in as per nursing as the patient had persistent vomiting of green fluid. As I was standing in the room talking with the patient and her mother along with the surgeon, she filled a 1 L canister from her NG tube to low intermittent suction within a 10-minute period. Patient had relief of her nausea with placement of the tube and had no further abdominal distention. She is also complaining of dry mouth and pain in the foot that had surgery in it. Vitals reviewed Ill-appearing, pale Hypoactive bowel sounds, soft nontender nondistended, NG tube in place draining copious thick bilious fluid Extremities with left ankle with dressing in place and external fixator in place, 2+ nonpitting edema of the dorsum of the left foot 53-year-old female with history of alcohol dependence, chronic pancreatic insufficiency, here with open left bimalleolar ankle fracture requiring surgical washout and fixation, now with SBO -Appreciate general surgery consultation -I have held all of her oral medications, start banana bag daily, Librium should suffice as a has a long half-life for alcohol withdrawal but can give Ativan as needed, change vancomycin and cefepime to Unasyn for narrower coverage (plan was to switch to p.o. Augmentin anyway), duloxetine cannot be replaced with an IV medicine-watch for withdrawal from this medication -Follow clinically for resolution of SBO, may end up needing surgery if does not resolve on its own All care discussed at length with the patient and her mother at bedside for 30 minutes Subjective Ms. Chiu is feeling very bloated and that her belly is distended today. No nausea or vomiting. She is a bit concerned about the drainage around her surgic al site. She denies any numbness or tingling around the foot. Review of Systems Review of Systems: All systems reviewed & are unremarkable except as noted in HPI & below Physical Exam Physical Exam: General: no distress Eyes: normal inspection, PERLL Respiratory: chest non tender, clear to auscultation, normal breath sounds, no respiratory distress, no accessory muscle use Cardiac: regular rate and rhythm, no rub or gallop, no murmur, no edema, no jvd GI/: active bowel sounds, tender, distended abdomen Extremities: normal range of motion, normal strength, non tender Neuro/Psych: alert and oriented x 3, normal mood and affect Skin: normal color, dry Results & Data Vital Signs (Past 12 Hours) Vital Signs Temp Pulse Resp BP Pulse Ox 03/10/19 07:50 37 C 90 18 140/90 98 (1) Bimalleolar ankle fracture Encounter type: initial encounter Fracture type: open Laterality: left Open fracture type: open type III Qualified Code(s): S82.842C - Displaced bimalleolar fracture of left lower leg, initial encounter for open fracture type IIIA, IIIB, or IIIC
--- NOTE | 2019-03-10 14:42 | Surgery Consultation ---
Date of Consultation March 10, 2019 Assessment & Plan (1) SBO (small bowel obstruction): Ms. Chiu is a 53 yo female with incomplete prior history available, but likely alcoholic cirrhosis, chronic pancreatitis and likely pancreatic insufficiency who was admitted with an orthopedic injury and now has a small bowel obstruction. Though she has no prior surgical history, which in most circumstances would be concerning for malignancy as the cause, she does have findings consistent with chronic pancreatitis, which raises the possibility of adhesions from a prior episode of severe pancreatitis. 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 In review of the CT scan today there appears to be an SBO, but also the stomach is very greatly enlarged and given other chronic symptoms should keep gastroparesis in the differential as well as partial gastric outlet obstruction - Attempt conservative management of SBO with strict NPO, NGT to suction, and IVF - Pt was evaluated later this evening at the time NGT was inserted, and she had an episode of emesis prior which was at least 200 ml and NGT immediately had 1200 ml of thicken output. - Will need GI evaluation (possibly as an outpatient) for possible cirrhosis, chronic pancreatitis, and possible pancreatic insufficiency - If she needed surgery would request risk stratification/evaluation of potential severity of cirrhosis prior to proceeding with surgery - Recommend colonoscopy (in this situation I believe Cologuard is insufficient in evaluation of underlying etiologies), and likely EGD and EUS once this acute issue has resolved - Recommend SCDs and VTE chemoprophylaxis History of Present Illness Reason for Consultation: Concern for SBO Attending Physician: Becca Irby MD History of Present Illness The patient is a 53 yo female with suspected alcoholic cirrhosis (she has not completed workup), continued alcohol use (though states this has decreased compared to the past, does not drink every night but when she does can be as much as a bottle of wine) and is difficult to piece all information together as she is seen at multiple locations, who was admitted with and underwent surgery for a bimalleolar ankle fracture. Over the past couple of days she has had emesis. She would binge eat and then vomit, sometimes forcefully and other times spontaneously. She does have a history of bulimia. She describes emesis as a "forest green." Her last BM was 2 days ago and was normal. She also reports a 1 month history of nausea and sometimes vomits at home. She also has a BM 10-15 min after most meals. She states she is scheduled for an EUS and EGD. She has never had a colonoscopy but recently sent stool for Cologuard testing. She does take creon. Uncertain if she has had any pancreatic testing and she does not know of any prior episodes of pancreatitis. Though given the above description and reviewing imaging of her pancreas is atrophic and has calcifications consistent with chronic pancreatitis and prior MRI shows IPMNs. KUB was obtained and shows markedly distended bowel concerning for an obstruction. The patient has no prior abdominal surgeries. No known history of diverticulitis. Prior CT scans have shown "tethered loops of the left colon identified in the left lower quadrant, likely representing postinflammatory change with possible colocolonic fistula." Allergies Allergy/AdvReac Type Severity Reaction Status Date / Time No Known Allergies Allergy Verified 03/04/19 14:51 Home Medications Home Medications Medication Instructions Recorded Confirmed Type duloxetine [Cymbalta] 60 mg PO QAM 08/13/18 03/04/19 History folic acid 1 mg PO QAM 08/13/18 03/04/19 History gabapentin 300 mg PO TID 08/13/18 03/04/19 History hydroxyzine pamoate [Vistaril] 50 mg PO BID PRN 08/13/18 03/04/19 History vitamin B complex 1 tab PO QAM 08/13/18 03/04/19 History ascorbic acid (vitamin C) [Vitamin 100 mg PO QAM 02/22/19 03/04/19 History C] cholecalciferol (vitamin D3) 5,000 unit PO QAM 02/22/19 03/04/19 History [Vitamin D3] cyanocobalamin (vitamin B-12) 1,000 mcg PO QAM 02/22/19 03/04/19 History [Vitamin B-12] duloxetine 20 mg PO DAILY 02/22/19 03/04/19 History ergocalciferol (vitamin D2) 50,000 unit PO WK 02/22/19 03/04/19 History [Vitamin D2] [id number] [Creon] 1 cap PO TIDM 02/22/19 03/04/19 History Patient History Medical History Anxiety (Chronic) HAS UPCOMING LALA WITH PSYCH Depression (Chronic) HAS UPCOMING LALA WITH PSYCH Neuropathy (Chronic) OF FEET Nicotine dependence (Chronic) Alcohol withdrawal seizure (Resolved) NOT REPORTED BY PATIENT AT TIME OF PAT CALL - NOTED IN EMR PREVIOUSLY Abnormal TSH Abnormal blood sugar A1C LEVELS FLUCTUATE Bowel habit changes STARTED 1 YR AGO/LOOSE STOOLS AFTER EATING Chronic pancreatitis Cirrhosis of liver "COMPROMISED LIVER" Diabetes mellitus TYPE 2 "SECONDARY" History of alcohol consumption History of dizziness 2 WEEKS AGO, DIZZINESS AND NAUSEA, DENIES FEVER - HAS FULLY RESOLVED/EDU PROVIDED History of fracture TAILBONE - FLARES UP WITH WEATHER CHANGES IPMN (intraductal papillary mucinous neoplasm) Insomnia Lipoma No family history of adverse response to anesthesia Pancreatic insufficiency Polycystic ovarian syndrome Vitamin D deficiency Surgical History History of tooth extraction Family History Other Family history of breast cancer in mother Family history of breast cancer in sister Social History Preferred Language: Lebanese Communication Ability: Effective Tube Fitter Required: No Beliefs That Will Affect Care: None marital status: Current Living Situation: Alone Other Information That Helps Us Care for You: No Feels Safe at Home: Yes Smoking Status: Current every day smoker Tobacco Type: cigarettes Cigarettes Per Day: 1PPD - ADVISED NPO Second Hand Exposure: Yes Hx Alcohol Use: Yes Alcohol type: wine Hx Substance Use: No Review of Systems Constitutional: no fever and no chills Ear, Nose, Mouth, Throat: "hoarse voice" Respiratory: no cough and no dyspnea Cardiovascular: no chest pain and no dyspnea Gastrointestinal: See HPI Genitourinary: no dysuria Physical Exam Constitutional: no acute distress Eyes: PERRL, conjunctivae normal, anicteric sclerae ENMT: external ear and nose normal, oropharynx normal Neck: normal visual inspection Respiratory: normal respiratory effort Cardiovascular: Rate/Rhythm: regular rate and regular rhythm Gastrointestinal (Abdomen): Distended, firm (R>L), diffuse tenderness, no rebound or guarding Musculoskeletal: LLE in ex fix, edematous foot Neurologic: alert Results & Data Vital Signs (Past 12 Hours) Vital Signs Temp Pulse Resp BP Pulse Ox 03/10/19 07:50 37 C 90 18 140/90 98 Laboratory Results 03/10/19 03/10/19 Range/Units 07:31 07:31 WBC 4.18 L (4.8-10.8) K/uL RBC 2.91 L (4.2-5.4) M/uL Hgb 8.4 L (12.0-16.0) g/dL Hct 25.5 L (37-47) % MCV 87.6 (80-100) fL MCH 28.9 (25-34) pg MCHC 32.9 (32-36) g/dL RDW Std Deviation 51.1 H (36.4-46.3) fL RDW Coeff of Ethel 15.8 H (11.5-14.5) % Plt Count 208 (130-400) K/uL MPV 9.0 (7.4-10.4) fL Sodium 135 L (136-145) mmol/L Potassium 4.7 D (3.5-5.1) mmol/L Chloride 103 (98-107) mmol/L Carbon Dioxide 27 (21-32) mmol/L Anion Gap 5.0 (3-11) BUN 14 (7-18) mg/dl Creatinine 0.79 (0.6-1.2) mg/dl Est Cr Clr Drug Dosing 77.1 ml/min Est GFR ( Amer) 99.1 Est GFR (Non-Af Amer) 85.5 BUN/Creatinine Ratio 17.5 (10-20) Glucose 108 H (70-99) mg/dl Calcium 8.5 (8.5-10.1) mg/dl Magnesium 1.9 (1.8-2.4) mg/dl Diagnostic Findings (03/10/19) KUB: FINDINGS: Marked stool burden in the left colon. Pathologically distended small bowel in the right mid abdomen with an apparent diameter of up to 5.6 cm though this is likely affected by magnification. Pancreatic calcifications likely indicate a history of chronic pancreatitis. Osseous structures normal. Lung bases clear. IMPRESSION: 1. Findings highly suspicious for small bowel obstruction. Recommend CT for further violation. 2. Marked stool burden in the left colon. 3. This appearance is markedly different than the most recent CT. (03/10/19) CT Abdomen/Pelvis with PO Contrast: FINDINGS: Lung bases: The heart is normal in size and without pericardial effusion. There are coronary artery calcifications. A small hiatal hernia is noted. There is mild circumferential wall thickening in the distal esophagus. There is a trace left pleural effusion with associated left basilar atelectasis. Liver: The contrast-enhanced liver is normal in size, contour, and attenuation. There is no intrahepatic biliary ductal dilatation. The hepatic veins and portal veins are patent. Gallbladder: Unremarkable. Spleen: Normal in size and attenuation. Pancreas: The pancreas is atrophic. There is diffuse parenchymal calcification consistent with chronic pancreatitis. There is also chronic dilatation of the pancreatic duct. Adrenal glands: Unremarkable. Kidneys: The contrast enhanced kidneys demonstrate mild cortical atrophy and are without hydronephrosis. The kidneys enhance symmetrically. Abdominal vasculature: The abdominal aorta is normal in course and caliber noting moderate to advanced atherosclerotic calcification. Bowel: The stomach and proximal small bowel are distended and fluid-filled. Small bowel loops measure up to 4.5 cm in diameter. There is a focal transition point identified in the pelvic midline on image #305, and the appearance is consistent with a small bowel obstruction. The distal small bowel is decompressed. No focally thick walled bowel loops are identified. There is no pneumatosis intestinalis or portal venous gas. There is mild colonic diverticulosis without CT evidence of acute diverticulitis. The appendix is well-visualized and normal. There are tethered loops of adjacent left colon identified in the left lower quadrant on image #311. This is unchanged from 06/26/2017, and may represent postinflammatory change with colocolonic fistula secondary to previous diverticulitis. Peritoneum: There is trace perihepatic fluid. No intraperitoneal free air is seen. Lymphadenopathy: None. Pelvic viscera: There is gas within the bladder lumen. The bladder is otherwise normal as imaged. The uterus is normal as imaged. There is a 5. 7 cm cystic structure within or adjacent to the right ovary with adjacent tubular structures. Small follicles are seen in the left ovary. Skeletal structures: The skeletal structures are osteopenic. The lumbosacral spine and bony pelvis appear intact. There is a mild and age indeterminant sup erior endplate compression deformity of T9. There are healed bilateral rib fractures. No lytic or blastic lesions are seen. IMPRESSION: 1. Findings are consistent with a small bowel obstruction. A transition point is identified in the mid pelvis, and this is likely on the basis of adhesions. 2. No intraperitoneal free air is seen. No focally thick walled bowel loops are identified, and there is no pneumatosis intestinalis or portal venous gas. 3. Again seen are are tethered loops of the left colon identified in the left lower quadrant, likely representing postinflammatory change with possible colocolonic fistula. This is unchanged from 06/26/2017 and may be related to previous diverticulitis. Nonemergent GI follow-up is again recommended. 4. A dilated tubular structure in the right adnexa likely represents hydrosalpinx. 5. Changes of chronic pancreatitis are similar to previous. 6. There is trace perihepatic fluid and a trace left pleural effusion. 7. Additional findings as above.
[2019-03-10] MEDS ORDERED: IOVERSOL 100ml IV PRN (16:03)
--- NOTE | 2019-03-10 16:25 | CT Scan Report ---
CT SCAN OF THE ABDOMEN AND PELVIS WITH IV CONTRAST CLINICAL HISTORY: Generalized abdominal pain. Nausea. COMPARISON STUDY: Abdominal CT dated scans dated 03/10/2019 and 06/26/2017. TECHNIQUE: Following the IV administration of 90 cc of Optiray 320, CT scan of the abdomen and pelvi s is performed from the lung bases to the proximal femora. Images are reviewed in the axial, sagittal , and coronal planes. IV contrast was administered without complication. Oral contrast was utilized. A dose lowering technique was utilized adhering to the principles of ALARA. FINDINGS: Lung bases: The heart is normal in size and without pericardial effusion. There are coronary artery c alcifications. A small hiatal hernia is noted. There is mild circumferential wall thickening in the d istal esophagus. There is a trace left pleural effusion with associated left basilar atelectasis. Liver: The contrast-enhanced liver is normal in size, contour, and attenuation. There is no intrahepa tic biliary ductal dilatation. The hepatic veins and portal veins are patent. Gallbladder: Unremarkable. Spleen: Normal in size and attenuation. Pancreas: The pancreas is atrophic. There is diffuse parenchymal calcification consistent with chroni c pancreatitis. There is also chronic dilatation of the pancreatic duct. Adrenal glands: Unremarkable. Kidneys: The contrast enhanced kidneys demonstrate mild cortical atrophy and are without hydronephros is. The kidneys enhance symmetrically. Abdominal vasculature: The abdominal aorta is normal in course and caliber noting moderate to advance d atherosclerotic calcification. Bowel: The stomach and proximal small bowel are distended and fluid-filled. Small bowel loops measure up to 4.5 cm in diameter. There is a focal transition point identified in the pelvic midline on imag e #305, and the appearance is consistent with a small bowel obstruction. The distal small bowel is de compressed. No focally thick walled bowel loops are identified. There is no pneumatosis intestinalis or portal venous gas. There is mild colonic diverticulosis without CT evidence of acute diverticuliti s. The appendix is well-visualized and normal. There are tethered loops of adjacent left colon ident ified in the left lower quadrant on image #311. This is unchanged from 06/26/2017, and may represent p ostinflammatory change with colocolonic fistula secondary to previous diverticulitis. Peritoneum: There is trace perihepatic fluid. No intraperitoneal free air is seen. Lymphadenopathy: None. Pelvic viscera: There is gas within the bladder lumen. The bladder is otherwise normal as imaged. The uterus is normal as imaged. There is a 5. 7 cm cystic structure within or adjacent to the right ovar y with adjacent tubular structures. Small follicles are seen in the left ovary. Skeletal structures: The skeletal structures are osteopenic. The lumbosacral spine and bony pelvis ap pear intact. There is a mild and age indeterminant superior endplate compression deformity of T9. The re are healed bilateral rib fractures. No lytic or blastic lesions are seen. IMPRESSION: 1. Findings are consistent with a small bowel obstruction. A transition point is identified in the mi d pelvis, and this is likely on the basis of adhesions. 2. No intraperitoneal free air is seen. No focally thick walled bowel loops are identified, and there is no pneumatosis intestinalis or portal venous gas. 3. Again seen are are tethered loops of the left colon identified in the left lower quadrant, likely representing postinflammatory change with possible colocolonic fistula. This is unchanged from 017 and may be related to previous diverticulitis. Nonemergent GI follow-up is again recommended. 4. A dilated tubular structure in the right adnexa likely represents hydrosalpinx. 5. Changes of chronic pancreatitis are similar to previous. 6. There is trace perihepatic fluid and a trace left pleural effusion. 7. Additional findings as above. Electronically signed by: Lauro Nj M.D. 03/10/2019 4:24 PM
[2019-03-10] MEDS ORDERED: ENOXAPARIN INJ 40 MG/0.4 ML SYR SQ SCH (17:15)
[2019-03-10] MEDS ORDERED: SODIUM CHLORIDE 0.9% 1000ML 1,000 ML IV SCH (17:15)
[2019-03-10] MEDS: ONDANSETRON INJ 2 MG/ML 2 ML VIAL IV PRN (18:38)
[2019-03-10] MEDS ORDERED: CHLORASEPTIC 1.4% SOLN 180 ML BTL MT PRN (20:06)
[2019-03-10] MEDS: FAMOTIDINE 20 MG in SYRINGE 3 ML IV SCH (21:49)
[2019-03-10] MEDS: BETAMETHASONE VAL 0.1% CR 15 GM EXT SCH (21:49)
[2019-03-10] MEDS: AMPICILLIN/SULBACTAM SOD 3,000 MG in 0.9 % SODIUM CHLORIDE 100 ML IV SCH (21:49)
[2019-03-11] MEDS ORDERED: MoRPHine SULFATE 4 MG/ML 1 ML CARP\\VIAL IV PRN (02:02)
[2019-03-11] MEDS: POTASSIUM CHLORIDE 40 MEQ in SODIUM CHLORIDE 0.9% 1000ML 1,000 ML IV SCH ×2 (02:09→15:30)
[2019-03-11] MEDS ORDERED: VANCOMYCIN TROUGH ONE (02:30)
[2019-03-11] MEDS: AMPICILLIN/SULBACTAM SOD 3,000 MG in 0.9 % SODIUM CHLORIDE 100 ML IV SCH ×4 (03:51→21:54)
[2019-03-11] MEDS: HYDROmorphone INJ 0.5 MG/0.5 ML SYR IV PRN ×5 (06:39→21:54)
[2019-03-11] MEDS ORDERED: ACETAMINOPHEN 65 ML IV ONE (07:15)
[2019-03-11 07:35] LABS: Hematocrit (blood only) 29.5 % (37-47); Hemoglobin 9.5 g/dL (12.0-16.0); Mean Corpuscular Hgb Conc 32.2 g/dL (32-36); Mean Corpuscular Volume 87.8 fL (80-100); Mean Platelet Volume 9.2 fL (7.4-10.4); Platelet Count 360 K/uL (130-400); RDW Coefficient of Variation 16.3 % (11.5-14.5); Red Blood Count 3.36 M/uL (4.2-5.4); White Blood Count 8.92 K/uL (4.8-10.8)
[2019-03-11 08:01] LABS: Albumin Level 2.2 gm/dl (3.4-5.0); BUN Creatinine Ratio 12.5 (10-20); Bilirubin Direct 0.1 mg/dl (0-0.2); Calcium 8.5 mg/dl (8.5-10.1); Creatinine Clr Calc Pharmacy 68.4 ml/min; Est GFR (African American) 85.8; Magnesium 1.8 mg/dl (1.8-2.4); Potassium 4.3 mmol/L (3.5-5.1)
[2019-03-11 08:04] LABS: Bilirubin,Total 0.5 mg/dl (0.2-1); Phosphorus 2.7 mg/dl (2.5-4.9); Total Protein 6.1 gm/dl (6.4-8.2)
[2019-03-11] MEDS: MULTI-VITAMIN INFUSION 10 ML, THIAMINE HCL 100 MG, FOLIC ACID 1 MG in SODIUM CHLORIDE 0... IV SCH (08:51)
[2019-03-11] MEDS: FAMOTIDINE 20 MG in SYRINGE 3 ML IV SCH ×2 (08:51→21:55)
[2019-03-11] MEDS ORDERED: MULTI-VITAMIN INFUSION 10 ML, THIAMINE HCL 100 MG, FOLIC ACID 1 MG in SODIUM CHLORIDE 0... IV SCH (09:00)
[2019-03-11] MEDS ORDERED: FAMOTIDINE 20MG/5ML IV PUSH IV SCH (09:00)
[2019-03-11] MEDS ORDERED: FAMOTIDINE 20 MG in SYRINGE 3 ML IV SCH (09:00)
[2019-03-11] MEDS: BETAMETHASONE VAL 0.1% CR 15 GM EXT SCH ×2 (09:13→21:55)
[2019-03-11] MEDS ORDERED: LORazepam 0.5 MG/1 ML VIAL IV PRN (09:58)
--- NOTE | 2019-03-11 10:54 | Psychiatric Consultation ---
Date of Consultation March 11, 2019 Impression / Recommendations (1) Depression: Gem is a 53 year old female with a PMH of peripheral neuropathy, depression, alcohol abuse and chronic pancreatitis that presented to [facility] after experiencing a fall at home. She suffered a fracture of her left ankle which has been surgically stabilized and now she has a SBO post operatively. We were asked to see her due to her history of depression and alcohol dependence. Patient currently is not conveying any symptoms of SI and or worsening depression. She does note that her mood is worse since being in the hospital but she has insight in understanding that this is secondary to her current medical s ituation. She does convey symptoms of intermittent charan but due to her current heavy alcohol abuse it would not meet criteria for bipolar disorder. She likely does have a component of a substance induced mood disorder and the mainstay of treatment for this would be cessation of the substance being abused. When spoken to this morning she refuses any suggestions of going to alcohol rehab after her medical conditions are stabilized. I also suggested AA which she notes "is a waste of time." At this point we do not suggest making any alterations to her medication regimen. Her duloxetine does not come in IV form and unfortunately there are no IV antidepressant medications. Symptoms of cymbalta discontinuation include worsening anxiety, irritability, dizziness, headaches and electric shock like sensations in the brain. It would be advisable to restart the patient on her home cymbalta regimen as soon as she is able to tolerate oral medication. She can continue the ativan 0.5mg IV q6 for anxiety symptoms but we would suggest not sending her on this when discharged from the hospital secondary to her heavy alcohol use. We suggest that the patient continue to follow up with her PCP and therapist upon discharge. Please don't hesitate to contact the psychiatry team with any further questions. I discussed this case with Dr. Frances. She helped in coordinating the management plan for the patient above. Psych History Chief Complaint "I am just feeling very overwhelmed". History of Present Illness Gem is a 53 year old female with a PMH of peripheral neuropathy, depression, alcohol abuse and chronic pancreatitis that presented to [facility] after experiencing a fall at home. She suffered a fracture of her left ankle which has been surgically stabilized and now she has a SBO post operatively. We were asked to see her due to her history of depression and alcohol dependence. When speaking to the patient this morning she says her mood had been "generally pretty good" prior to this ankle fracture she had. She says her mood has been lower than usual since being in the hospital but she says "this is for obvious reasons." She notes she has difficulty sleeping and only sleeps 3 hours a night as she has trouble falling asleep as well as staying asleep but notes she has been like this for most of her adult life. She does deny any SI or attempts at harming herself in the past. She notes that she does have difficulty concentrating when trying to do tasks at home as she feels like her mind is constantly racing. She doesn't have many hobbies but notes she has a good support network in [place] whom she stays in contact with. She is close to her mother who lives 7 minute walk from her. She notes that over the past few months she has been feeling overwhelmed by having to do basic household/financial tasks as she never had to do any of these things prior to her divorce. She specifies difficulty with balancing finances. She notes she used to have panic attacks many years ago but has not had them since moving to [place]. Every few weeks she says she feels that she has a ton of energy and is able to do a lot of chores around the house and is able to stay for days at a time without any need for sleep. She says she has been like this since her divorce and she wonders if she is manic depressive. She denies any hallucinations, phobias, or delusions. Her current stressors include the fact that she he is currently on probation due to a DUI and she is scheduled to see a counsellor once a month and see her DUI officer once a week. She is no longer able to drive and therefore has trouble getting to and from her therapy appointments which are located in [place]. She says she hates living in [place] but originally moved here due to the fact that her mother was sick and needed more support. According to the patients records she has been seen in consult for psychiatric illness approximately 3 times in the past 3 years for depression and alcohol abuse. She has been admitted to the [facility] on one occasion. She was being planned to go to alcohol rehab but refused to go at the last minute and was therefore discharge with outpatient follow up. The patient notes that she has been to [facility] for one month but she says that being there did not help her at all because "they focused more on drug abuse problems and not as much on alcohol." She has never seen an outpatient psychiatrist and she has been prescribed cymbalta by her PCP. She says she takes 60mg in the morning and 20mg in the afternoon. She has never been on any other psychiatric medication except for hydroxyzine which she takes on a prn basis 2-3 times a week. She notes that her mother was an alcoholic but denies any significant family history of mental health problems. She denies any family hx of suicide. The patient grew up in [place]. She ended up marrying her high school sweet-heart and they moved to [place] in there . She notes that the lived a "high-flying libertarian lifestyle". 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 He filed for divorce three years ago and the divorce became official in July 2019. She says this was a shock to her and did not see it coming. She denies any hx of physical abuse, sexual abuse ore extramarital affairs. They both have always been heavy drinkers and says that when they lived together they would both be drinking every single day but they were never "the type of people to wake up and have a drink". She notes that she only drinks wine and will drink anywhere from 2 glasses a day up to 2 bottles a day. She denies any hx of drug use and she smokes 1/2 pack of cigarettes. She has never had any children but tried to conceive in her late thirties but was unable to due to PCOS and she did not want to try IVF. Allergies Allergy/AdvReac Type Severity Reaction Status Date / Time No Known Allergies Allergy Verified 03/04/19 14:51 Home Medications Home Medications Medication Instructions Recorded Confirmed Type duloxetine [Cymbalta] 60 mg PO QAM 08/13/18 03/04/19 History folic acid 1 mg PO QAM 08/13/18 03/04/19 History gabapentin 300 mg PO TID 08/13/18 03/04/19 History hydroxyzine pamoate [Vistaril] 50 mg PO BID PRN 08/13/18 03/04/19 History vitamin B complex 1 tab PO QAM 08/13/18 03/04/19 History ascorbic acid (vitamin C) [Vitamin 100 mg PO QAM 02/22/19 03/04/19 History C] cholecalciferol (vitamin D3) 5,000 unit PO QAM 02/22/19 03/04/19 History [Vitamin D3] cyanocobalamin (vitamin B-12) 1,000 mcg PO QAM 02/22/19 03/04/19 History [Vitamin B-12] duloxetine 20 mg PO DAILY 02/22/19 03/04/19 History ergocalciferol (vitamin D2) 50,000 unit PO WK 02/22/19 03/04/19 History [Vitamin D2] [id number] [Creon] 1 cap PO TIDM 02/22/19 03/04/19 History Personal History Beliefs That Will Affect Care: None Patient History Medical History Anxiety (Chronic) HAS UPCOMING LALA WITH PSYCH Depression (Chronic) HAS UPCOMING LALA WITH PSYCH Neuropathy (Chronic) OF FEET Nicotine dependence (Chronic) Alcohol withdrawal seizure (Resolved) NOT REPORTED BY PATIENT AT TIME OF PAT CALL - NOTED IN EMR PREVIOUSLY Abnormal TSH Abnormal blood sugar A1C LEVELS FLUCTUATE Bowel habit changes STARTED 1 YR AGO/LOOSE STOOLS AFTER EATING Chronic pancreatitis Cirrhosis of liver "COMPROMISED LIVER" Diabetes mellitus TYPE 2 "SECONDARY" History of alcohol consumption History of dizziness 2 WEEKS AGO, DIZZINESS AND NAUSEA, DENIES FEVER - HAS FULLY RESOLVED/EDU PROVIDED History of fracture TAILBONE - FLARES UP WITH WEATHER CHANGES IPMN (intraductal papillary mucinous neoplasm) Insomnia Lipoma No family history of adverse response to anesthesia Pancreatic insufficiency Polycystic ovarian syndrome Vitamin D deficiency Surgical History History of tooth extraction Family History Other Family history of breast cancer in mother Family history of breast cancer in sister Social History Preferred Language: American Communication Ability: Effective Kitchen Runner Required: No Beliefs That Will Affect Care: None marital status: Current Living Situation: Alone Other Information That Helps Us Care for You: No Feels Safe at Home: Yes Smoking Status: Current every day smoker Tobacco Type: cigarettes Cigarettes Per Day: 1PPD - ADVISED NPO Second Hand Exposure: Yes Hx Alcohol Use: Yes Alcohol type: wine Hx Substance Use: No Physical Exam Mental Examination: Appearance: Unkempt Eye Contact: Maintains Eye Contact Motor Behavior: Unremarkable Speech: Normal Mood: Sad Thought Process: Intact Thought Content: Intact Hallucinations: None Insight: Good Judgement: Fair Vital Signs (Past 24 Hours): Last Vital Signs Temp 37.2 C 03/11/19 07:34 Pulse 108 H 03/11/19 07:34 Resp 16 03/11/19 07:34 BP 126/80 03/11/19 07:34 Pulse Ox 98 03/11/19 07:34 Review of Systems All systems reviewed & are unremarkable except as noted in HPI & below Results & Data Medications Administered Lipase/Protease/Amylase (Pancreaze (Lipase 4200u)) 1 cap PO AC ARPIT Stop: 04/03/19 20:59 Last Admin: 03/10/19 17:33 Dose: Not Given Documented by: [id number] Admin: 03/10/19 11:28 Dose: 1 cap Documented by: [id number] Admin: 03/10/19 08:22 Dose: 1 cap Documented by: [id number] Admin: 03/09/19 15:47 Dose: 1 cap Documented by: [id number] Admin: 03/09/19 11:23 Dose: 1 cap Documented by: [id number] Admin: 03/09/19 08:57 Dose: 1 cap Documented by: [id number] Admin: 03/08/19 17:11 Dose: 1 cap Documented by: [id number] Admin: 03/08/19 14:20 Dose: Not Given Documented by: [id number] Admin: 03/08/19 07:36 Dose: 1 cap Documented by: [id number] Admin: 03/07/19 17:48 Dose: 1 cap Documented by: [id number] Admin: 03/07/19 12:38 Dose: 1 cap Documented by: [id number] Admin: 03/07/19 08:10 Dose: 1 cap Documented by: [id number] Admin: 03/06/19 16:42 Dose: 1 cap Documented by: [id number] Admin: 03/06/19 13:41 Dose: 1 cap Documented by: [id number] Admin: 03/06/19 08:04 Dose: 1 cap Documented by: [id number] Admin: 03/05/19 16:02 Dose: 1 cap Documented by: [id number] Admin: 03/05/19 12:21 Dose: 1 cap Documented by: [id number] Admin: 03/05/19 08:28 Dose: 1 cap Documented by: [id number] Admin: 03/04/19 21:38 Dose: 1 cap Documented by: [id number] Aspirin (Ecotrin Ectab) 81 mg PO BID ARPIT Stop: 04/04/19 08:59 Last Admin: 03/10/19 09:07 Dose: 81 mg Documented by: [id number] Admin: 03/09/19 20:11 Dose: 81 mg Documented by: [id number] Admin: 03/09/19 08:57 Dose: 81 mg Documented by: [id number] Admin: 03/08/19 19:54 Dose: 81 mg Documented by: [id number] Admin: 03/08/19 14:31 Dose: 81 mg Documented by: [id number] Admin: 03/07/19 21:47 Dose: 81 mg Documented by: [id number] Admin: 03/07/19 10:23 Dose: 81 mg Documented by: [id number] Admin: 03/06/19 21:29 Dose: 81 mg Documented by: [id number] Admin: 03/06/19 08:05 Dose: 81 mg Documented by: [id number] Admin: 03/05/19 20:40 Dose: 81 mg Documented by: [id number] Admin: 03/05/19 08:35 Dose: 81 mg Documented by: [id number] Betamethasone Valerate (Valisone 0.1%) 1 appln EXT BID ARPIT Stop: 03/20/19 20:59 Last Admin: 03/11/19 09:13 Dose: 1 appln Documented by: [id number] Admin: 03/10/19 21:49 Dose: 1 appln Documented by: [id number] Calcium Carbonate (Tums) 1,000 mg PO Q6H PRN PRN Reason: Indigestion Stop: 04/05/19 13:44 Last Admin: 03/09/19 21:45 Dose: 1,000 mg Documented by: [id number] Admin: 03/09/19 11:22 Dose: 1,000 mg Documented by: [id number] Admin: 03/07/19 09:14 Dose: 1,000 mg Documented by: [id number] Admin: 03/06/19 15:52 Dose: 1,000 mg Documented by: [id number] Chlordiazepoxide HCl (Librium) 25 mg PO TID ARPIT Stop: 04/05/19 08:59 Last Admin: 03/10/19 14:21 Dose: Not Given Documented by: [id number] Admin: 03/10/19 09:07 Dose: 25 mg Documented by: [id number] Admin: 03/09/19 20:14 Dose: 25 mg Documented by: [id number] Admin: 03/09/19 14:33 Dose: 25 mg Documented by: [id number] Admin: 03/09/19 08:56 Dose: 25 mg Documented by: [id number] Admin: 03/08/19 19:53 Dose: 25 mg Documented by: [id number] Admin: 03/08/19 14:31 Dose: 25 mg Documented by: [id number] Admin: 03/08/19 14:29 Dose: Not Given Documented by: [id number] Admin: 03/07/19 21:46 Dose: 25 mg Documented by: [id number] Admin: 03/07/19 15:11 Dose: 25 mg Documented by: [id number] Admin: 03/07/19 09:13 Dose: 25 mg Documented by: [id number] Admin: 03/06/19 21:29 Dose: 25 mg Documented by: [id number] Admin: 03/06/19 13:51 Dose: 25 mg Documented by: [id number] Admin: 03/06/19 09:18 Dose: 25 mg Documented by: [id number] Docusate Sodium (Colace) 100 mg PO BID ARPIT Stop: 04/03/19 20:59 Last Admin: 03/10/19 09:06 Dose: 100 mg Documented by: [id number] Admin: 03/09/19 20:11 Dose: 100 mg Documented by: [id number] Admin: 03/09/19 08:57 Dose: 100 mg Documented by: [id number] Admin: 03/08/19 19:53 Dose: 100 mg Documented by: [id number] Admin: 03/08/19 14:31 Dose: 100 mg Documented by: [id number] Admin: 03/07/19 21:47 Dose: 100 mg Documented by: [id number] Admin: 03/07/19 09:13 Dose: 100 mg Documented by: [id number] Admin: 03/06/19 21:30 Dose: 100 mg Documented by: [id number] Admin: 03/06/19 08:05 Dose: 100 mg Documented by: [id number] Admin: 03/05/19 20:40 Dose: 100 mg Documented by: [id number] Admin: 03/05/19 08:28 Dose: 100 mg Documented by: [id number] Admin: 03/04/19 21:38 Dose: 100 mg Documented by: [id number] Duloxetine HCl (Cymbalta) 20 mg PO DAILY@1400 [facility] Stop: 04/04/19 13:59 Last Admin: 03/10/19 14:20 Dose: Not Given Documented by: [id number] Admin: 03/09/19 15:47 Dose: 20 mg Documented by: [id number] Admin: 03/08/19 14:31 Dose: 20 mg Documented by: [id number] Admin: 03/07/19 15:12 Dose: 20 mg Documented by: [id number] Admin: 03/06/19 13:42 Dose: 20 mg Documented by: [id number] Admin: 03/05/19 15:26 Dose: 20 mg Documented by: [id number] Duloxetine HCl (Cymbalta) [facility] Stop: 04/04/19 08:59 Last Admin: 03/10/19 09:06 Dose: 60 mg Documented by: [id number] Admin: 03/09/19 08:57 Dose: 60 mg Documented by: [id number] Admin: 03/08/19 14:18 Dose: Not Given Documented by: [id number] Admin: 03/07/19 09:22 Dose: 60 mg Documented by: [id number] Admin: 03/06/19 08:05 Dose: 60 mg Documented by: [id number] Admin: 03/05/19 08:28 Dose: 60 mg Documented by: [id number] Enoxaparin Sodium (Lovenox) [facility] Stop: 04/09/19 17:14 Last Admin: 03/10/19 18:45 Dose: 40 mg Documented by: [id number] Ferrous Sulfate (Feosol) 325 mg PO BIDM [facility] Stop: 04/06/19 07:59 Last Admin: 03/10/19 17:33 Dose: Not Given Documented by: [id number] Admin: 03/10/19 08:22 Dose: 325 mg Documented by: [id number] Admin: 03/09/19 18:11 Dose: 325 mg Documented by: [id number] Admin: 03/09/19 08:57 Dose: 325 mg Documented by: [id number] Admin: 03/08/19 17:11 Dose: 325 mg Documented by: [id number] Admin: 03/08/19 14:32 Dose: Not Given Documented by: [id number] Admin: 03/07/19 17:48 Dose: 325 mg Documented by: [id number] Admin: 03/07/19 09:18 Dose: 325 mg Documented by: [id number] Folic Acid (Folvite) 1 mg PO QAM ARPIT Stop: 04/04/19 08:59 Last Admin: 03/10/19 09:07 Dose: 1 mg Documented by: [id number] Admin: 03/09/19 08:59 Dose: 1 mg Documented by: [id number] Admin: 03/08/19 14:30 Dose: 1 mg Documented by: [id number] Admin: 03/07/19 09:09 Dose: 1 mg Documented by: [id number] Admin: 03/06/19 08:06 Dose: 1 mg Documented by: [id number] Admin: 03/05/19 08:28 Dose: 1 mg Documented by: [id number] Gabapentin (Neurontin) 300 mg PO TID ARPIT Stop: 04/03/19 20:59 Last Admin: 03/10/19 14:21 Dose: Not Given Documented by: [id number] Admin: 03/10/19 09:06 Dose: 300 mg Documented by: [id number] Admin: 03/09/19 20:11 Dose: 300 mg Documented by: [id number] Admin: 03/09/19 14:33 Dose: 300 mg Documented by: [id number] Admin: 03/09/19 08:56 Dose: 300 mg Documented by: [id number] Admin: 03/08/19 19:53 Dose: 300 mg Documented by: [id number] Admin: 03/08/19 14:30 Dose: 300 mg Documented by: [id number] Admin: 03/08/19 14:29 Dose: Not Given Documented by: [id number] Admin: 03/07/19 21:47 Dose: 300 mg Documented by: [id number] Admin: 03/07/19 15:11 Dose: 300 mg Documented by: [id number] Admin: 03/07/19 09:11 Dose: 300 mg Documented by: [id number] Admin: 03/06/19 21:30 Dose: 300 mg Documented by: [id number] Admin: 03/06/19 13:42 Dose: 300 mg Documented by: [id number] Admin: 03/06/19 08:07 Dose: 300 mg Documented by: [id number] Admin: 03/05/19 20:40 Dose: 300 mg Documented by: [id number] Admin: 03/05/19 15:26 Dose: 300 mg Documented by: [id number] Admin: 03/05/19 08:28 Dose: 300 mg Documented by: [id number] Admin: 03/04/19 21:38 Dose: 300 mg Documented by: [id number] Hydromorphone HCl (Dilaudid) 0.5 mg IV Q3H PRN PRN Reason: Pain Stop: 03/18/19 20:28 Last Admin: 03/11/19 10:44 Dose: 0.5 mg Documented by: [id number] Promethazine HCl 12.5 mg/ (Sodium Chloride) 50.5 mls @ 202 mls/hr IV Q6H PRN PRN Reason: Nausea And Vomiting Stop: 04/07/19 08:50 Last Infusion: 03/08/19 19:57 Dose: 0 mls/hr Documented by: [id number] Admin: 03/08/19 19:30 Dose: 202 mls/hr Documented by: [id number] Potassium Chloride 40 meq/ (Sodium Chloride) 1,020 mls @ 100 mls/hr IV .[id number] ARPIT Stop: 04/07/19 08:59 Last Infusion: 03/11/19 10:43 Dose: 100 mls/hr Documented by: [id number] Infusion: 03/11/19 08:51 Dose: 0 mls/hr Documented by: [id number] Infusion: 03/11/19 04:35 Dose: 100 mls/hr Documented by: [id number] Infusion: 03/11/19 03:52 Dose: 0 mls/hr Documented by: [id number] Admin: 03/11/19 02:09 Dose: 100 mls/hr Documented by: [id number] Infusion: 03/11/19 01:09 Dose: 100 mls/hr Documented by: [id number] Infusion: 03/10/19 23:40 Dose: 100 mls/hr Documented by: [id number] Admin: 03/10/19 22:25 Dose: Not Given Documented by: [id number] Infusion: 03/10/19 21:49 Dose: 0 mls/hr Documented by: [id number] Infusion: 03/10/19 17:00 Dose: 100 mls/hr Documented by: [id number] Infusion: 03/10/19 15:50 Dose: 0 mls/hr Documented by: [id number] Admin: 03/10/19 11:56 Dose: 100 mls/hr Documented by: [id number] Infusion: 03/10/19 11:41 Dose: 100 mls/hr Documented by: [id number] Admin: 03/10/19 01:29 Dose: 100 mls/hr Documented by: [id number] Infusion: 03/10/19 01:29 Dose: 100 mls/hr Documented by: [id number] Admin: 03/09/19 15:47 Dose: 100 mls/hr Documented by: [id number] Infusion: 03/09/19 15:42 Dose: 100 mls/hr Documented by: [id number] Admin: 03/09/19 05:30 Dose: 100 mls/hr Documented by: [id number] Infusion: 03/09/19 05:30 Dose: 100 mls/hr Documented by: [id number] Admin: 03/08/19 19:45 Dose: 100 mls/hr Documented by: [id number] Infusion: 03/08/19 19:37 Dose: 100 mls/hr Documented by: [id number] Admin: 03/08/19 09:25 Dose: 100 mls/hr Documented by: [id number] Famotidine 20 mg/ Syringe 5 mls @ 2.5 mls/min IV BID ARPIT Stop: 04/09/19 20:59 Last Admin: 03/11/19 08:51 Dose: 2.5 mls/min Documented by: [id number] Admin: 03/10/19 21:49 Dose: 2.5 mls/min Documented by: [id number] Ampicillin Sodium/Sulbactam Sodium 3,000 mg/ Sodium Chloride 108 mls @ 200 mls/hr IV Q6H ARPIT; Protocol Stop: 03/20/19 20:59 Last Infusion: 03/11/19 09:25 Dose: 0 mls/hr Documented by: [id number] Admin: 03/11/19 08:52 Dose: 200 mls/hr Documented by: [id number] Infusion: 03/11/19 04:35 Dose: 0 mls/hr Documented by: [id number] Admin: 03/11/19 03:51 Dose: 200 mls/hr Documented by: [id number] Infusion: 03/10/19 23:39 Dose: 0 mls/hr Documented by: [id number] Admin: 03/10/19 21:49 Dose: 200 mls/hr Documented by: [id number] Multivitamins 10 ml/ Thiamine HCl 100 mg/ Folic Acid 1 mg/Sodium Chloride 1,011.2 mls @ 999 mls/hr IV Q24H ARPIT Stop: 03/17/19 10:01 Last Infusion: 03/11/19 09:52 Dose: 0 mls/hr Documented by: [id number] Admin: 03/11/19 08:51 Dose: 999 mls/hr Documented by: [id number] Ioversol (Optiray 320 100ml) 90 ml IV ONCE PRN PRN Reason: Interaction Checking Stop: 03/14/19 16:02 Last Admin: 03/10/19 16:04 Dose: 90 ml Documented by: [id number] Multivitamins (Multivitamin Tab) 1 tab PO QAM ARPIT Stop: 04/04/19 08:59 Last Admin: 03/10/19 09:06 Dose: 1 tab Documented by: [id number] Admin: 03/09/19 08:56 Dose: 1 tab Documented by: [id number] Admin: 03/08/19 14:31 Dose: 1 tab Documented by: [id number] Admin: 03/07/19 09:08 Dose: 1 tab Documented by: [id number] Admin: 03/06/19 08:07 Dose: 1 tab Documented by: [id number] Admin: 03/05/19 08:28 Dose: 1 tab Documented by: [id number] Ondansetron HCl (Zofran) 4 mg IV Q6H PRN PRN Reason: Nausea Stop: 04/03/19 20:28 Last Admin: 03/10/19 18:38 Dose: 4 mg Documented by: [id number] Admin: 03/09/19 14:33 Dose: 4 mg Documented by: [id number] Admin: 03/09/19 00:49 Dose: 4 mg Documented by: [id number] Admin: 03/08/19 18:44 Dose: 4 mg Documented by: [id number] Admin: 03/08/19 03:46 Dose: 4 mg Documented by: [id number] Admin: 03/07/19 09:15 Dose: 4 mg Documented by: [id number] Admin: 03/07/19 00:43 Dose: 4 mg Documented by: [id number] Admin: 03/06/19 11:47 Dose: 4 mg Documented by: [id number] Admin: 03/05/19 23:45 Dose: 4 mg Documented by: [id number] Pantoprazole Sodium (Protonix) 40 mg PO BID ARPIT Stop: 04/05/19 20:59 Last Admin: 03/10/19 09:06 Dose: 40 mg Documented by: [id number] Admin: 03/09/19 20:11 Dose: 40 mg Documented by: [id number] Admin: 03/09/19 08:56 Dose: 40 mg Documented by: [id number] Admin: 03/08/19 19:53 Dose: 40 mg Documented by: [id number] Admin: 03/08/19 07:36 Dose: 40 mg Documented by: [id number] Admin: 03/07/19 21:46 Dose: 40 mg Documented by: [id number] Admin: 03/07/19 09:29 Dose: 40 mg Documented by: [id number] Admin: 03/06/19 21:51 Dose: 40 mg Documented by: [id number] Phenol (Chloraseptic 1.4% [place]) 2 sprays MT Q2H PRN PRN Reason: Sore Throat Stop: 04/09/19 20:05 Last Admin: 03/10/19 21:07 Dose: 2 sprays Documented by: [id number] Sennosides (Senokot) 17.2 mg PO HS ARPIT Stop: 04/03/19 20:59 Last Admin: 03/09/19 20:11 Dose: 17.2 mg Documented by: [id number] Admin: 03/08/19 19:53 Dose: 17.2 mg Documented by: [id number] Admin: 03/07/19 21:46 Dose: 17.2 mg Documented by: [id number] Admin: 03/06/19 21:29 Dose: 17.2 mg Documented by: [id number] Admin: 03/05/19 20:40 Dose: 17.2 mg Documented by: [id number] Admin: 03/04/19 21:38 Dose: 17.2 mg Documented by: [id number] Thiamine HCl (Vitamin B-1) 100 mg PO QAM ARPIT Stop: 04/05/19 03:23 Last Admin: 03/10/19 09:06 Dose: 100 mg Documented by: [id number] Admin: 03/09/19 08:55 Dose: 100 mg Documented by: [id number] Admin: 03/08/19 14:30 Dose: 100 mg Documented by: [id number] Admin: 03/07/19 09:09 Dose: 100 mg Documented by: [id number] Admin: 03/06/19 03:53 Dose: 100 mg Documented by: [id number]
--- NOTE | 2019-03-11 11:44 | Surgery Progress Note ---
Date of Service March 11, 2019 Assessment & Plan (1) SBO (small bowel obstruction): Ms. Chiu is a 53 yo female with incomplete prior history available, but likely alcoholic cirrhosis, chronic pancreatitis and likely pancreatic insufficiency who was admitted with an orthopedic injury and now has a small bowel obstruction. Though she has no prior surgical history, which in most circumstances would be concerning for malignancy as the cause, she does have findings consistent with chronic pancreatitis, which raises the possibility of adhesions from a prior episode of severe pancreatitis. 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 -afebrile, vss - NGT with 1750 cc output since placement - abdomen is soft, nondistended on today's examination - abdominal pain resolved Plan: continue conservative management of SBO with strict NPO, NGT to suction, and IVF Will need GI evaluation (possibly as an outpatient) for possible cirrhosis, chronic pancreatitis, and possible pancreatic insufficiency - If she needed surgery would request risk stratification/evaluation of potential severity of cirrhosis prior to proceeding with surgery - Recommend colonoscopy (in this situation I believe Cologuard is insufficient in evaluation of underlying etiologies), and likely EGD and EUS once this acute issue has resolved - Recommend SCDs and VTE chemoprophylaxis Dr. Conley has seen and examined pt, agrees with above Supervising Physician Co-Signing Physician Notes I have seen and evaluated the patient and reviewed the medical record. I agree with the documentation as provided in this note by Trista Bruner PA-C. Subjective feeling better today no abdominal pain, no nausea passed small amount of gas this morning, no bowel movement sinus pressure and headache, worse with NG tube "starving" Physical Exam Constitutional: WD/WN, vitals as above Respiratory: normal respiratory effort; no respiratory distress Gastrointestinal (Abdomen): Inspection/Auscultation: abdomen normal to inspection; abdomen not distended Percussion/Palpation: abdomen soft; abdomen nontender, no guarding and abdomen not rigid NGT with thick bilious/brown output Skin: no rashes, warm and dry Psychiatric: A+Ox3, euthymic affect Results & Data Vital Signs (Past 12 Hours) Vital Signs Temp Pulse Resp BP Pulse Ox 06/06/19 07:34 37.2 C 108 H 16 126/80 98 03/11/19 07:02 36.7 C 120 H 18 132/79 97 Laboratory Results 03/11/19 03/11/19 03/11/19 Range/Units 07:15 07:15 07:15 WBC 8.92 (4.8-10.8) K/uL RBC 3.36 L (4.2-5.4) M/uL Hgb 9.5 L (12.0-16.0) g/dL Hct 29.5 L (37-47) % MCV 87.8 (80-100) fL MCH 28.3 (25-34) pg MCHC 32.2 (32-36) g/dL RDW Std Deviation 52.0 H (36.4-46.3) fL RDW Coeff of Ethel 16.3 H (11.5-14.5) % Plt Count 360 D (130-400) K/uL MPV 9.2 (7.4-10.4) fL Sodium 136 (136-145) mmol/L Potassium 4.3 (3.5-5.1) mmol/L Chloride 103 (98-107) mmol/L Carbon Dioxide 24 (21-32) mmol/L Anion Gap 8.0 (3-11) BUN 11 (7-18) mg/dl Creatinine 0.89 (0.6-1.2) mg/dl Est Cr Clr Drug Dosing 68.4 ml/min Est GFR ( Amer) 85.8 Est GFR (Non-Af Amer) 74.0 BUN/Creatinine Ratio 12.5 (10-20) Glucose 114 H (70-99) mg/dl Lactate 1.0 (0.4-2.0) mmol/L Calcium 8.5 (8.5-10.1) mg/dl Phosphorus 2.7 (2.5-4.9) mg/dl Magnesium 1.8 (1.8-2.4) mg/dl Total Bilirubin 0.5 (0.2-1) mg/dl Direct Bilirubin 0.1 (0-0.2) mg/dl AST 11 L (15-37) U/L ALT 14 (12-78) U/L Alkaline Phosphatase 85 (45-117) U/L Total Protein 6.1 L (6.4-8.2) gm/dl Albumin 2.2 L (3.4-5.0) gm/dl
--- NOTE | 2019-03-11 11:51 | Hospitalist Progress Note ---
Date of Service March 11, 2019 Assessment & Plan (1) Bimalleolar ankle fracture: - Following fall at home; s/p ankle irrigation and debridement, external fixator application bimalleolar ankle fracture and repair of 12 cm laceration on 03/04/19. - Blood cultures were negative. - Dilaudid 0.5 mg IV q3hr prn pain. - Unasyn IV for empiric coverage (also for abd coverage in setting of SBO) - DVT ppx: Lovenox; Holding Aspirin due to NPO status. - NWB on LLE; will need rehab placement at discharge. - Per orthopedics, will likely need to return to the OR on Friday for surgery. (2) SBO (small bowel obstruction): - CT A/P showed SBO with transition point in the mid pelvis -- likely related to adhesions. - General surgery consulted, appreciate input. - NG tube placed to low intermittent suction. - Strict NPO; IV fluids at 100 cc/hr. - Unasyn IV for empiric coverage. - Holding all oral medications; IV meds ordered if possible. (3) Nausea and vomiting: - May have an element of underlying bulimia nervosa; acute nausea/vomiting is related to small bowel obstruction. - Will need GI evaluation as outpatient, including EGD/EUS and colonoscopy. - Ativan, Zofran and Phenergan prn N/V. - IV fluids at 100 cc/hr; strict NPO. (4) Metabolic alkalosis: - Likely related to severe nausea/vomiting; now resolved. - IV fluids at 100 cc/hr. (5) Facial pain: - Likely related to NG tube placement. - CT of sinuses negative for acute abnormalities. - Dilaudid IV prn pain. - Encouraged pt. to keep NG tube in place and utilize pain medication if needed. (6) Anemia: - B12 WNL; Folate 18.68. - Iron studies c/w iron deficiency anemia. - Continue folic acid, thiamine and ferrous sulfate -- holding for now due to NPO status. (7) Alcohol use: - H/o ETOH withdrawal during previous admissions; most recently reports she is an occasional drinker. - No evidence of withdrawal; tachycardia is mild, tremors resolved. - Holding Librium due to NPO status; Ativan IV prn. - Holding Thiamine/Folic acid due to NPO status; Banana bag q24hr IV. (8) Depression: - Holding Cymbalta due to NPO status. (9) Pancreatic insufficiency: - Pancreatic enzyme replacement on hold due to NPO status. - Will need GI work up as outpatient. (10) Chronic pancreatitis: - Noted on CT A/P; will need outpatient GI work up with EGD/EUS. (11) Electrolyte abnormality: - IV fluids with KCl 40 mEq; no additional replacement required. (12) DVT prophylaxis: - Holding Aspirin due to NPO status; Lovenox also on hold for possible procedure on 03/12/19. Dispo: Med/surg; low threshold to re-upgrade to telemetry due to tachycardia. Ortho following, may require re-intervention. General surgery also following for SBO. Supervising Physician Co-Signing Physician Notes PA Supervision Note: I did not personally see or examine the patient today, but I verified all jay points of ISSA Kelley's assessment and plan with the following exceptions/additions: None Subjective Pt. complains of severe pain in bilateral sinuses following NG tube insertion. She also has mild pain in throat/esophagus related to NG tube. Denies abdominal pain; is passing gas but has not had a BM yet. Has increased NG tube output, will monitor. General surgery following, appreciate input. Review of Systems Review of Systems: All systems reviewed & are unremarkable except as noted in HPI & below Constitutional: no fever, no chills, no fatigue and no weakness Respiratory: no cough, no dyspnea, no dyspnea on exertion and no wheezing Cardiovascular: no chest pain, no palpitations and no edema Gastrointestinal: + constipation; no abdominal pain, no nausea, no vomiting and no diarrhea/loose stools Genitourinary: no difficulty urinating Musculoskeletal: no back pain and no joint pain Integumentary: no non-healing lesions Allergy / Immunological: no rash Physical Exam Physical Exam: General: Resting comfortably in no apparent distress HEENT: NC/AT; PERRLA with EOMI; [place] conjunctiva, MMM. +Right sided NG tube, dark brown output. Neck: Supple and nontender Cardiac: Tachycardic, regular rhythm. Lungs: CTA bilaterally Abdomen: Bowel normoactive X 4; Nontender to palpation Extremities: Warm. No edema present Neuro: No focal weakness Skin: No rash Results & Data Vital Signs (Past 12 Hours) Vital Signs Temp Pulse Resp BP BP Pulse Ox 03/11/19 07:34 37.2 C 108 H 16 126/80 98 03/11/19 07:02 36.7 C 120 H 18 132/79 97 03/10/19 23:34 36.9 C 114 H 14 157/90 H 97 Laboratory Results 03/11/19 03/11/19 03/11/19 Range/Units 07:15 07:15 07:15 WBC 8.92 (4.8-10.8) K/uL RBC 3.36 L (4.2-5.4) M/uL Hgb 9.5 L (12.0-16.0) g/dL Hct 29.5 L (37-47) % MCV 87.8 (80-100) fL MCH 28.3 (25-34) pg MCHC 32.2 (32-36) g/dL RDW Std Deviation 52.0 H (36.4-46.3) fL RDW Coeff of Ethel 16.3 H (11.5-14.5) % Plt Count 360 D (130-400) K/uL MPV 9.2 (7.4-10.4) fL Sodium 136 (136-145) mmol/L Potassium 4.3 (3.5-5.1) mmol/L Chloride 103 (98-107) mmol/L Carbon Dioxide 24 (21-32) mmol/L Anion Gap 8.0 (3-11) BUN 11 (7-18) mg/dl Creatinine 0.89 (0.6-1.2) mg/dl Est Cr Clr Drug Dosing 68.4 ml/min Est GFR ( Amer) 85.8 Est GFR (Non-Af Amer) 74.0 BUN/Creatinine Ratio 12.5 (10-20) Glucose 114 H (70-99) mg/dl Lactate 1.0 (0.4-2.0) mmol/L Calcium 8.5 (8.5-10.1) mg/dl Phosphorus 2.7 (2.5-4.9) mg/dl Magnesium 1.8 (1.8-2.4) mg/dl Total Bilirubin 0.5 (0.2-1) mg/dl Direct Bilirubin 0.1 (0-0.2) mg/dl AST 11 L (15-37) U/L ALT 14 (12-78) U/L Alkaline Phosphatase 85 (45-117) U/L Total Protein 6.1 L (6.4-8.2) gm/dl Albumin 2.2 L (3.4-5.0) gm/dl (1) Bimalleolar ankle fracture Encounter type: initial encounter Fracture type: open Laterality: left Open fracture type: open type III Qualified Code(s): S82.842C - Displaced bimalleolar fracture of left lower leg, initial encounter for open fracture type IIIA, IIIB, or IIIC
--- NOTE | 2019-03-11 14:17 | Orthopedic Progress Note ---
Date of Service March 11, 2019 Assessment & Plan (1) Bimalleolar ankle fracture: POD#7 Ankle irrigation and debridement, External Fixator Application(Left) bimalleolar ankle fracture, repair 12 cm laceration -Pain management -PT/OT- NWB LLE -DVT prophylaxis-SCDs, Aspirin 81mg BID -Ice/elevation -Daily dressing changes. Will need to continue to watch the wound for skin necrosis/infection. Plans will be for continued elevation/wound checks. -Wound care recs appreciated for blisters -Continue IV antibx. -Question for need of an irrigation and debridement. We will have Dr. Erickson review the wound. Continue n.p.o. status Subjective Patient awake and alert. Nursing staff currently present doing pin care and changing dressing. Wound care team also present to document with photos and to redress wound. Patient was recently developed SBO being treated conservatively. She states she feels much better today. States that her distention in her belly has gone down quite a bit. No bowel movement yet but she is passing flatus. She states that her pain is about the same today in the left ankle. No new complaints with this. Physical Exam Physical Exam: Ex-fix in place. Pin sites look benign. Sutured wound line continues to remain intact. Small area near the suture at the anterior portion that has a pinpoint area of purulence. Wound care swabbed the area and is planning to send for culture. The skin blister below the incision appears about the same. Continues with moderate swelling of the dorsum of the foot but is still able to move her toes well without discomfort. She continues to have some decreased sensation to the toes. Small skin blisters on the superior side of the wound are unchanged. Superior portion of the wound border does not appear to be getting any darker at this time. Results & Data Vital Signs (Past 12 Hours) Vital Signs Temp Pulse Resp BP BP Pulse Ox 03/11/19 11:51 36.9 C 99 H 16 139/86 99 03/11/19 07:34 37.2 C 108 H 16 126/80 98 03/11/19 07:02 36.7 C 120 H 18 132/79 97 (1) Bimalleolar ankle fracture Encounter type: initial encounter Fracture type: open Laterality: left Open fracture type: open type III Qualified Code(s): S82.842C - Displaced bimalleolar fracture of left lower leg, initial encounter for open fracture type IIIA, IIIB, or IIIC
--- NOTE | 2019-03-11 15:00 | Infectious Disease Progress Nt ---
Date of Service March 11, 2019 Assessment & Plan (1) Open ankle fracture: would continue IV abx for now, pending cultures, if negative would give 10 days Augmentin post d/c due to open fracture. If patient requires OR, please send culture. (2) Alcohol dependence: Subjective remains on emperic unasyn, ? need for additional OR, daily wound checks continue, has developed SBO as well. surgery following, blood cultures negative, afebrile. wbc nml. Results & Data Vital Signs (Past 12 Hours) Vital Signs Temp Pulse Resp BP BP Pulse Ox 03/11/19 11:51 36.9 C 99 H 16 139/86 99 03/11/19 07:34 37.2 C 108 H 16 126/80 98 03/11/19 07:02 36.7 C 120 H 18 132/79 97 Laboratory Results Microbiology 03/07/19 10:09 Blood Aerobic Blood Culture - Preliminary No growth in Aerobic bottle after 48 hours. 03/07/19 10:09 Blood Anaerobic Blood Culture - Preliminary No growth in Anaerobic bottle after 48 hours. 03/07/19 10:40 Blood Aerobic Blood Culture - Preliminary No growth in Aerobic bottle after 48 hours. 03/07/19 10:40 Blood Anaerobic Blood Culture - Preliminary No growth in Anaerobic bottle after 48 hours. (1) Alcohol dependence Substance use status: other alcohol-induced disorder Qualified Code(s): F1 0.288 - Alcohol dependence with other alcohol-induced disorder (2) Open ankle fracture Encounter type: initial encounter Laterality: left Open fracture type: open type III Qualified Code(s): S82.892C - Other fracture of left lower leg, initial encounter for open fracture type IIIA, IIIB, or IIIC
--- NOTE | 2019-03-11 15:29 | CT Scan Report ---
CT SCAN OF THE PARANASAL SINUSES CLINICAL HISTORY: Sinus pain and congestion. COMPARISON STUDY: CT of the brain dated 03/04/2019. TECHNIQUE: High-resolution CT scan of the paranasal sinuses is performed. Images are reviewed in the axial, sagittal, and coronal planes. IV contrast was not administered for this examination. A dose lowering technique was utilized adhering to the principles of ALARA. CT DOSE: 635.79 mGy.cm FINDINGS: An enteric tube is in place. Maxillary antra: Trace dependent mucosal thickening is seen within the maxillary antra. Anterior ethmoid sinuses: Clear. Posterior ethmoid sinuses: Clear. Sphenoid sinuses: Clear. Frontal sinuses: Clear. Ostiomeatal complexes: Patent bilaterally. Frontoethmoidal and sphenoethmoidal recesses: Patent bilaterally. Carotid arteries: The carotid arteries are covered and without septal attachments. Ethmoid roofs: The ethmoid roofs are symmetric. Nasal turbinates: Normal in appearance. Nasal septum: There is leftward deviation of the bony nasal septum. Optic nerves: Covered. Orbits: The bony orbits are intact. Orbital contents are normal in appearance. Calvarium: The imaged calvarium is normal in appearance Mastoid air cells: Well pneumatized. Brain parenchyma: Partially visualized brain parenchyma is within normal limits. IMPRESSION: No paranasal sinus disease is identified. This is unchanged from the 03/04/2019 CT of the brain. Electronically signed by: Lauro Nj M.D. 03/11/2019 3:27 PM
[2019-03-11] MEDS: ENOXAPARIN INJ 40 MG/0.4 ML SYR SQ SCH (15:32)
[2019-03-12] MEDS: HYDROmorphone INJ 0.5 MG/0.5 ML SYR IV PRN ×7 (01:23→22:17)
[2019-03-12] MEDS: AMPICILLIN/SULBACTAM SOD 3,000 MG in 0.9 % SODIUM CHLORIDE 100 ML IV SCH ×4 (03:36→20:40)
[2019-03-12] MEDS: POTASSIUM CHLORIDE 40 MEQ in SODIUM CHLORIDE 0.9% 1000ML 1,000 ML IV SCH ×2 (03:36→18:45)
[2019-03-12 06:48] LABS: Hematocrit (blood only) 25.4 % (37-47); Hemoglobin 8.2 g/dL (12.0-16.0); Mean Corpuscular Hgb Conc 32.3 g/dL (32-36); Mean Corpuscular Volume 87.9 fL (80-100); Mean Platelet Volume 8.9 fL (7.4-10.4); Platelet Count 301 K/uL (130-400); RDW Coefficient of Variation 16.5 % (11.5-14.5); RDW Standard Deviation 53.1 fL (36.4-46.3); Red Blood Count 2.89 M/uL (4.2-5.4); White Blood Count 8.06 K/uL (4.8-10.8)
[2019-03-12 07:24] LABS: BUN Creatinine Ratio 9.2 (10-20); Calcium 8.1 mg/dl (8.5-10.1); Creatinine Clr Calc Pharmacy 98.2 ml/min; Est GFR (African American) 119.3; Est GFR (Non-African American) 102.9; Magnesium 1.7 mg/dl (1.8-2.4); Potassium 4.2 mmol/L (3.5-5.1)
[2019-03-12] MEDS: FAMOTIDINE 20 MG in SYRINGE 3 ML IV SCH ×2 (08:52→20:40)
[2019-03-12] MEDS: ENOXAPARIN INJ 40 MG/0.4 ML SYR SQ SCH (08:53)
[2019-03-12] MEDS: BETAMETHASONE VAL 0.1% CR 15 GM EXT SCH ×2 (08:55→20:33)
[2019-03-12] MEDS: MULTI-VITAMIN INFUSION 10 ML, THIAMINE HCL 100 MG, FOLIC ACID 1 MG in SODIUM CHLORIDE 0... IV SCH (09:49)
[2019-03-12] MEDS: MAGNESIUM SULFATE / D5W 1 GM/100 ML BAG IV SCH ×2 (10:20→12:17)
--- NOTE | 2019-03-12 12:24 | XRay Report ---
KUB HISTORY: Follow-up small bowel obstruction. COMPARISON: KUB 03/10/2019. FINDINGS: Multiple mildly dilated gas-filled loops of small bowel are seen within the abdomen consist ent with a small bowel obstruction. This has improved. The bowel is dilated up to 4.2 cm. Nasogastric tube is curled within the proximal stomach. No renal calculi. No ureteral calculi. No pneumoperiton eum or pneumatosis. IMPRESSION: 1. Improving small bowel obstruction. 2. Nasogastric tube curled within the proximal stomach. Electronically signed by: Delano Murry M.D. 03/12/2019 12:23 PM
--- NOTE | 2019-03-12 12:43 | Orthopedic Progress Note ---
Date of Service March 12, 2019 Assessment & Plan (1) Bimalleolar ankle fracture: POD#8 Ankle irrigation and debridement, External Fixator Application(Left) bimalleolar ankle fracture, repair 12 cm laceration -Pain management -PT/OT- NWB LLE -DVT prophylaxis-SCDs, Aspirin 81mg BID -Ice/elevation -Daily dressing changes. Will need to continue to watch the wound for skin necrosis/infection. Plans will be for continued elevation/wound checks. -Wound care recs appreciated for blisters -Continue IV antibx. -Continue NPO status. Dressing changed with wound nurse and optifoam dressings placed on the laceration and blisters for ease of evaluating wounds. Will discuss case with Dr. Erickson for possible repeat I & D of the medial ankle laceration. Subjective remains on emperic unasyn States her left ankle is stable. No increase in pain. Her concern today is the NG tube and wanting to have it removed. Physical Exam Constitutional: WD/WN, vitals as above Musculoskeletal: Left ankle: Ex fix in place. Pin sites are clean and dry. Medial ankle has a large fx blister. No purulence. The sutured laceration is stable and well approximated. There is mild purulence from the central portion of the wound. Psychiatric: A+Ox3, euthymic affect Results & Data Vital Signs (Past 12 Hours) Vital Signs Temp Pulse Resp BP Pulse Ox 03/12/19 06:52 36.8 C 96 H 16 143/88 H 99 03/12/19 03:49 36.8 C 100 H 16 143/89 H 97 (1) Bimalleolar ankle fracture Encounter type: initial encounter Fracture type: open Laterality: left Open fracture type: open type III Qualified Code(s): S82.842C - Displaced bimalleolar fracture of left lower leg, initial encounter for open fracture type IIIA, IIIB, or IIIC
--- NOTE | 2019-03-12 12:51 | Hospitalist Progress Note ---
Date of Service March 12, 2019 Assessment & Plan (1) Bimalleolar ankle fracture: - Following fall at home; s/p ankle irrigation and debridement, external fixator application bimalleolar ankle fracture and repair of 12 cm laceration on 03/04/19. - Blood cultures negative; wound culture from 03/11/19 is positive for gram negative bacilli. - Dilaudid 0.5 mg IV q3hr prn pain. - Unasyn IV (also for abd coverage in setting of SBO) - DVT ppx: Lovenox; Holding Aspirin due to NPO status. - NWB on LLE; plan for rehab placement once medically stable. - Ortho following; will be re-evaluated by Dr. Erickson today to determine if pt. will require repeat intervention. (2) SBO (small bowel obstruction): - CT A/P showed SBO with transition point in the mid pelvis -- likely related to adhesions. - Had large BMs this morning, abd pain improved. KUB showed improving SBO. - General surgery consulted, appreciate input. - NG tube - will clamp tube and remove later today if pt. is tolerating. - Strict NPO; IV fluids at 100 cc/hr. - Unasyn IV for empiric coverage. - Holding all oral medications. (3) Nausea and vomiting: - May have an element of underlying bulimia nervosa; acute nausea/vomiting is related to small bowel obstruction. - Will need GI evaluation as outpatient, including EGD/EUS and colonoscopy. - Ativan, Zofran and Phenergan prn N/V. - IV fluids at 100 cc/hr; strict NPO. (4) Metabolic alkalosis: - Likely related to severe nausea/vomiting; now completely resolved. - IV fluids at 100 cc/hr. (5) Facial pain: - Likely related to NG tube placement. - CT of sinuses negative. - Encouraged pt. to utilize pain medication if needed. (6) Anemia: - Trend frequently as inpatient. - Iron studies c/w iron deficiency anemia. - Continue folic acid, thiamine and ferrous sulfate -- holding for now due to NPO status. (7) Alcohol use: - H/o ETOH withdrawal during previous admissions; most recently reports she is an occasional drinker. - No evidence of withdrawal. - Holding Librium due to NPO status; Ativan IV prn. - Holding Thiamine/Folic acid due to NPO status; Banana bag q24hr IV. (8) Depression: - Holding Cymbalta due to NPO status. (9) Pancreatic insufficiency: - Pancreatic enzyme replacement on hold due to NPO status. - Will need GI work up as outpatient. (10) Chronic pancreatitis: - Noted on CT A/P; will need outpatient GI work up with EGD/EUS. (11) Hydrosalpinx: - Noted on CT A/P. - Follow up as outpatient. (12) Electrolyte abnormality: - IV fluids with KCl 40 mEq. - Mag level 1.7 -- ordered Mag sulfate 2 gm IV. (13) DVT prophylaxis: - Holding Aspirin due to NPO status; Lovenox q24hr. Dispo: Med/surg; Ortho following, may require re-intervention. General surgery also following for SBO. Supervising Physician Co-Signing Physician Notes PA Supervision Note: I did not personally see or examine the patient today, but I verified all jay points of ISSA Kelley's assessment and plan with the following exceptions/additions: None Subjective Pt. is stable overall. She has NG tube in place -- is very irritated by NG tube presence and insisting on having it removed. Pt. is threatening to pull NG tube out if it is not removed today. Pain from NG tube is located in her sinuses along with throat. Denies abd pain, nausea. She did have 5 large BMs this morning. Discussed with surgery, will clamp NG tube then remove later today. Right foot is stable, orthopedics following. If no repeat intervention is planned within near future, will be discharged to rehab. Review of Systems Review of Systems: All systems reviewed & are unremarkable except as noted in HPI & below Constitutional: no fever, no chills, no fatigue and no weakness Ear, Nose, Mouth, Throat: + facial pain (Related to NG tube ) and + sinus pain/pressure Respiratory: no cough, no dyspnea, no dyspnea on exertion and no wheezing Cardiovascular: no chest pain, no palpitations and no edema Gastrointestinal: no abdominal pain, no nausea, no vomiting and no constipation Genitourinary: no difficulty urinating Musculoskeletal: + joint pain; no back pain Integumentary: no non-healing lesions Allergy / Immunological: no rash Physical Exam Physical Exam: General: Resting comfortably in no apparent distress HEENT: NC/AT; PERRLA with EOMI; [place] conjunctiva, MMM. +Right sided NG tube. Neck: Supple and nontender Cardiac: RRR Lungs: CTA bilaterally Abdomen: Bowel normoactive X 4; Nontender to palpation Extremities: Warm. No edema present. Ex fix in place on LLE, did not visualize skin under dressing. Neuro: No focal weakness Skin: Mild erythema noted on left jang area -- will monitor. Results & Data Vital Signs (Past 12 Hours) Vital Signs Temp Pulse Resp BP Pulse Ox 03/12/19 06:52 36.8 C 96 H 16 143/88 H 99 03/12/19 03:49 36.8 C 100 H 16 143/89 H 97 Laboratory Results 03/12/19 03/12/19 Range/Units 06:28 06:28 WBC 8.06 (4.8-10.8) K/uL RBC 2.89 L (4.2-5.4) M/uL Hgb 8.2 L (12.0-16.0) g/dL Hct 25.4 L (37-47) % MCV 87.9 (80-100) fL MCH 28.4 (25-34) pg MCHC 32.3 (32-36) g/dL RDW Std Deviation 53.1 H (36.4-46.3) fL RDW Coeff of Ethel 16.5 H (11.5-14.5) % Plt Count 301 (130-400) K/uL MPV 8.9 (7.4-10.4) fL Sodium 139 (136-145) mmol/L Potassium 4.2 (3.5-5.1) mmol/L Chloride 108 H (98-107) mmol/L Carbon Dioxide 24 (21-32) mmol/L Anion Gap 7.0 (3-11) BUN 6 L D (7-18) mg/dl Creatinine 0.62 (0.6-1.2) mg/dl Est Cr Clr Drug Dosing 98.2 ml/min Est GFR ( Amer) 119.3 Est GFR (Non-Af Amer) 102.9 BUN/Creatinine Ratio 9.2 L (10-20) Glucose 84 (70-99) mg/dl Calcium 8.1 L (8.5-10.1) mg/dl Magnesium 1.7 L (1.8-2.4) mg/dl (1) Bimalleolar ankle fracture Encounter type: initial encounter Fracture type: open Laterality: left Open fracture type: open type III Qualified Code(s): S82.842C - Displaced bimalleolar fracture of left lower leg, initial encounter for open fracture type IIIA, IIIB, or IIIC
--- NOTE | 2019-03-12 15:45 | Surgery Progress Note ---
Date of Service March 12, 2019 Assessment & Plan (1) SBO (small bowel obstruction): Ms. Chiu is a 53 yo female with incomplete prior history available, but likely alcoholic cirrhosis, chronic pancreatitis and likely pancreatic insufficiency who was admitted with an orthopedic injury and now has a small bowel obstruction. Though she has no prior surgical history, which in most circumstances would be concerning for malignancy as the cause, she does have findings consistent with chronic pancreatitis, which raises the possibility of adhesions from a prior episode of severe pancreatitis. 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 SBO - resolved - afebrile, vss - NGT with 1200cc last 24 hours, 50 cc in last shift - abdomen is soft, nondistended on today's examination - abdominal pain resolved - return of bowel function Plan: Okay from surgical standpoint for clear liquid diet once cleared by ortho (possibly for procedure today) Once tolerates clear liquids advance as tolerated Will need GI evaluation (possibly as an outpatient) for possible cirrhosis, chronic pancreatitis, and possible pancreatic insufficiency - Recommend colonoscopy (in this situation I believe Cologuard is insufficient in evaluation of underlying etiologies), and likely EGD and EUS once this acute issue has resolved - Recommend SCDs and VTE chemoprophylaxis - Continue medical management Dr. Conley has seen and examined pt, agrees with above Supervising Physician Co-Signing Physician Notes I have seen and evaluated the patient and reviewed the medical record. I agree with the documentation as provided in this note by Trista Bruner PA-C. Subjective feeling good, NGT just removed passing gas and having multiple formed bowel movements no nausea or vomiting "Starving" Physical Exam Constitutional: WD/WN, vitals as above no acute distress and not ill appearing Respiratory: normal respiratory effort; no respiratory distress Gastrointestinal (Abdomen): Inspection/Auscultation: abdomen normal to inspection; abdomen not distended Percussion/Palpation: abdomen soft; abdomen nontender, no guarding and abdomen not rigid Skin: no rashes, warm and dry Psychiatric: A+Ox3, euthymic affect Results & Data Vital Signs (Past 12 Hours) Vital Signs Temp Pulse Pulse Resp BP BP Pulse Ox 03/12/19 15:18 36.8 C 102 H 18 133/85 99 03/12/19 13:08 36.5 C 92 H 16 125/84 98 03/12/19 06:52 36.8 C 96 H 16 143/88 H 99 03/12/19 03:49 36.8 C 100 H 16 143/89 H 97 Laboratory Results 03/12/19 03/12/19 Range/Units 06:28 06:28 WBC 8.06 (4.8-10.8) K/uL RBC 2.89 L (4.2-5.4) M/uL Hgb 8.2 L (12.0-16.0) g/dL Hct 25.4 L (37-47) % MCV 87.9 (80-100) fL MCH 28.4 (25-34) pg MCHC 32.3 (32-36) g/dL RDW Std Deviation 53.1 H (36.4-46.3) fL RDW Coeff of Ethel 16.5 H (11.5-14.5) % Plt Count 301 (130-400) K/uL MPV 8.9 (7.4-10.4) fL Sodium 139 (136-145) mmol/L Potassium 4.2 (3.5-5.1) mmol/L Chloride 108 H (98-107) mmol/L Carbon Dioxide 24 (21-32) mmol/L Anion Gap 7.0 (3-11) BUN 6 L D (7-18) mg/dl Creatinine 0.62 (0.6-1.2) mg/dl Est Cr Clr Drug Dosing 98.2 ml/min Est GFR ( Amer) 119.3 Est GFR (Non-Af Amer) 102.9 BUN/Creatinine Ratio 9.2 L (10-20) Glucose 84 (70-99) mg/dl Calcium 8.1 L (8.5-10.1) mg/dl Magnesium 1.7 L (1.8-2.4) mg/dl
[2019-03-12] MEDS ORDERED: HYDROmorphone INJ 0.5 MG/0.5 ML SYR IV STA (22:05)
[2019-03-12] MEDS ORDERED: COUGH DROP (SUGAR FREE) LOZ 24 LOZ/1 BOX BUCCAL PRN (22:39)
[2019-03-13] MEDS: POTASSIUM CHLORIDE 40 MEQ in SODIUM CHLORIDE 0.9% 1000ML 1,000 ML IV SCH ×2 (00:52→05:59)
[2019-03-13] MEDS: HYDROmorphone INJ 0.5 MG/0.5 ML SYR IV PRN ×4 (01:24→15:45)
[2019-03-13] MEDS: AMPICILLIN/SULBACTAM SOD 3,000 MG in 0.9 % SODIUM CHLORIDE 100 ML IV SCH (03:37)
[2019-03-13 07:28] LABS: Hematocrit (blood only) 25.8 % (37-47); Hemoglobin 8.3 g/dL (12.0-16.0); Mean Corpuscular Hgb Conc 32.2 g/dL (32-36); Mean Corpuscular Volume 87.5 fL (80-100); Mean Platelet Volume 9.1 fL (7.4-10.4); Platelet Count 359 K/uL (130-400); RDW Coefficient of Variation 16.7 % (11.5-14.5); RDW Standard Deviation 52.9 fL (36.4-46.3); Red Blood Count 2.95 M/uL (4.2-5.4); White Blood Count 9.01 K/uL (4.8-10.8)
[2019-03-13 07:56] LABS: BUN Creatinine Ratio 2.3 (10-20); Calcium 7.8 mg/dl (8.5-10.1); Creatinine Clr Calc Pharmacy 83.4 ml/min; Magnesium 1.9 mg/dl (1.8-2.4); Potassium 4.2 mmol/L (3.5-5.1)
--- NOTE | 2019-03-13 08:09 | Surgery Progress Note ---
Date of Service March 13, 2019 Assessment & Plan (1) SBO (small bowel obstruction): SBO completely resolved Can begin to advance diet with n.p.o. status as determined by orthopedic plans for additional surgical intervention Subjective Denies abdominal pain Has had multiple bowel movements and passing flatus Denies nausea and vomiting Tolerating clear liquids Physical Exam Gastrointestinal (Abdomen): Inspection/Auscultation: abdomen normal to inspection; abdomen not distended Percussion/Palpation: abdomen soft; abdomen nontender Results & Data Vital Signs (Past 12 Hours) Vital Signs Temp Pulse Resp BP BP Pulse Ox 03/13/19 07:12 36.8 C 86 16 149/88 H 99 03/12/19 23:15 36.8 C 102 H 155/81 H 99
[2019-03-13] MEDS ORDERED: PANTOprazole 40 MG TAB PO SCH (09:00)
--- NOTE | 2019-03-13 10:17 | Orthopedic Progress Note ---
Date of Service March 13, 2019 Assessment & Plan (1) Bimalleolar ankle fracture: POD#9 Ankle irrigation and debridement, External Fixator Application(Left) bimalleolar ankle fracture, repair 12 cm laceration -Pain management -PT/OT- NWB LLE -DVT prophylaxis-SCDs, Aspirin 81mg BID -Ice/elevation -Daily dressing changes. Will need to continue to watch the wound for skin necrosis/infection. Plans will be for continued elevation/wound checks. -Wound care recs appreciated for blisters -Continue IV antibx. -Dressing change today. Patient may eat today but will have her NPO after midnight tonight for possible I & D of the laceration tomorrow. Subjective Denies abdominal pain Has had multiple bowel movements and passing flatus Denies nausea and vomiting Tolerating clear liquids Left ankle pain is stable. No significant complaints. Physical Exam Constitutional: WD/WN, vitals as above Musculoskeletal: Left ankle: ex fix in place. The optifoam dressing appears to have held in moisture from the wound. Will have nursing change dressing to adaptic and gauze. No gross purulence at this time, but there may be some from the central aspect of the laceration wound. No erythema. Most of the drainage appears to be serous. Psychiatric: A+Ox3, euthymic affect Results & Data Vital Signs (Past 12 Hours) Vital Signs Temp Pulse Resp BP BP Pulse Ox 03/13/19 07:12 36.8 C 86 16 149/88 H 99 03/12/19 23:15 36.8 C 102 H 155/81 H 99 (1) Bimalleolar ankle fracture Encounter type: initial encounter Fracture type: open Laterality: left Open fracture type: open type III Qualified Code(s): S82.842C - Displaced bimalleolar fracture of left lower leg, initial encounter for open fracture type IIIA, IIIB, or IIIC
[2019-03-13] MEDS: CEFEPIME 2,000 MG in SYRINGE 7.5 ML IV SCH ×2 (11:45→17:04)
[2019-03-13] MEDS: BETAMETHASONE VAL 0.1% CR 15 GM EXT SCH ×2 (11:45→21:32)
[2019-03-13] MEDS: PANTOprazole 40 MG TAB PO SCH ×2 (12:51→21:37)
[2019-03-13] MEDS: ASPIRIN 81 MG ECTAB PO SCH (12:51)
[2019-03-13] MEDS: PANCREAZE (LIPASE 4,200U) CAP PO SCH ×2 (12:51→15:52)
[2019-03-13] MEDS: FOLIC ACID 1 MG TAB PO SCH (12:51)
[2019-03-13] MEDS: GABAPENTIN 300 MG CAP PO SCH ×3 (12:51→21:36)
[2019-03-13] MEDS: MULTIVITAMIN TAB PO SCH (12:51)
[2019-03-13] MEDS: DULOXETINE HCL 60 MG CAP PO SCH (12:51)
[2019-03-13] MEDS: THIAMINE HCL 100 MG TAB PO SCH (12:51)
[2019-03-13] MEDS: OXYCODONE HCL IR 5 MG TAB (IMMEDIATE RELEASE) PO PRN ×2 (13:58→21:52)
--- NOTE | 2019-03-13 15:14 | Hospitalist Progress Note ---
Date of Service March 13, 2019 Assessment & Plan (1) Bimalleolar ankle fracture: - Following fall at home; s/p ankle irrigation and debridement, external fixator application bimalleolar ankle fracture and repair of 12 cm laceration on 03/04/19. - Blood cultures negative; wound culture from 03/11/19 +Klebsiella and Enterobacter. - Convert Unasyn to Cefepime per wound culture sensitivities. - DVT ppx: Aspirin 81 mg BID - hold for procedure. - Dilaudid IV and Oxycodone prn pain. - NWB on LLE; plan for rehab placement once medically stable. - Ortho following, plan for I&D of laceration on Friday03/14/19. (2) SBO (small bowel obstruction): - CT A/P showed SBO with transition point in the mid pelvis -- likely related to adhesions. - NG tube removed on 03/12; having regular BMs, SBO resolved. - General surgery consulted, appreciate input. - Advance to regular diet this evening. - Resumed PO meds. (3) Nausea and vomiting: - Acute nausea/vomiting was related to small bowel obstruction. - Will need GI evaluation as outpatient, including EGD/EUS and colonoscopy. - May also have a component of underlying bulimia nervosa per family member. - Now resolved, tolerating diet. (4) Metabolic alkalosis: - Related to severe nausea/vomiting; now completely resolved. (5) Anemia: - Trend frequently. - Iron studies c/w iron deficiency anemia. - Continue folic acid, thiamine and ferrous sulfate. (6) Alcohol use: - H/o ETOH withdrawal during previous admissions; most recently reports she is an occasional drinker. - No evidence of acute withdrawal. - Ativan IV prn. - Thiamine/Folic acid. (7) Depression: - Continue Cymbalta as prescribed. (8) Pancreatic insufficiency: - Pancreatic enzyme replacement. - Will need GI work up as outpatient. (9) Chronic pancreatitis: - Noted on CT A/P; will need outpatient GI work up with EGD/EUS. 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 - Follow up as outpatient. (11) Electrolyte abnormality: - Monitor daily, replace as needed. (12) DVT prophylaxis: - Aspirin -- holding for procedure on 03/14/19. Dispo: Med/surg; Ortho following, plan for I&D on 03/14. Will need rehab placement at discharge. Subjective Pt. is doing well. Has had multiple large BMs -- denies abd distention, pain, nausea/vomiting. Tolerating diet -- will advance to regular diet for dinner. Has pain in left foot, plan for repeat procedure on 03/14/19 per ortho. Review of Systems Review of Systems: All systems reviewed & are unremarkable except as noted in HPI & below Constitutional: no fever, no chills, no fatigue, no weakness and no anorexia Respiratory: no cough, no dyspnea, no dyspnea on exertion and no wheezing Cardiovascular: no chest pain, no palpitations and no edema Gastrointestinal: no abdominal pain, no nausea, no vomiting, no constipation and no diarrhea/loose stools Genitourinary: no difficulty urinating Musculoskeletal: + joint pain; no back pain Integumentary: + non-healing lesions (Left foot lesions ) Allergy / Immunological: no rash Physical Exam Physical Exam: General: Resting comfortably in no apparent distress HEENT: NC/AT; PERRLA with EOMI; [place] conjunctiva, MMM. Neck: Supple and nontender Cardiac: RRR Lungs: CTA bilaterally Abdomen: Bowel normoactive X 4; Nontender to palpation Extremities: Warm. No edema present. Ex fix in place on LLE. Neuro: No focal weakness Skin: No rash noted. Results & Data Vital Signs (Past 12 Hours) Vital Signs Temp Pulse Resp BP Pulse Ox 03/13/19 07:12 36.8 C 86 16 149/88 H 99 Laboratory Results 03/13/19 03/13/19 Range/Units 06:57 06:57 WBC 9.01 (4.8-10.8) K/uL RBC 2.95 L (4.2-5.4) M/uL Hgb 8.3 L (12.0-16.0) g/dL Hct 25.8 L (37-47) % MCV 87.5 (80-100) fL MCH 28.1 (25-34) pg MCHC 32.2 (32-36) g/dL RDW Std Deviation 52.9 H (36.4-46.3) fL RDW Coeff of Ethel 16.7 H (11.5-14.5) % Plt Count 359 (130-400) K/uL MPV 9.1 (7.4-10.4) fL Sodium 135 L (136-145) mmol/L Potassium 4.2 (3.5-5.1) mmol/L Chloride 106 (98-107) mmol/L Carbon Dioxide 22 (21-32) mmol/L Anion Gap 7.0 (3-11) BUN 2 L (7-18) mg/dl Creatinine 0.73 (0.6-1.2) mg/dl Est Cr Clr Drug Dosing 83.4 ml/min Est GFR ( Amer) 109.0 Est GFR (Non-Af Amer) 94.0 BUN/Creatinine Ratio 2.3 L (10-20) Glucose 141 H (70-99) mg/dl Calcium 7.8 L (8.5-10.1) mg/dl Magnesium 1.9 (1.8-2.4) mg/dl (1) Bimalleolar ankle fracture Encounter type: initial encounter Fracture type: open Laterality: left Open fracture type: open type III Qualified Code(s): S82.842C - Displaced bimalleolar fracture of left lower leg, initial encounter for open fracture type IIIA, IIIB, or IIIC
[2019-03-13] MEDS: DULOXETINE HCL 20 MG CAP PO SCH (15:51)
[2019-03-13] MEDS: FERROUS SULFATE 325 MG TAB PO SCH (15:52)
[2019-03-14] MEDS: HYDROmorphone INJ 0.5 MG/0.5 ML SYR IV PRN ×4 (01:31→19:33)
[2019-03-14] MEDS: CEFEPIME 2,000 MG in SYRINGE 7.5 ML IV SCH ×3 (01:32→17:37)
[2019-03-14 06:49] LABS: Hematocrit (blood only) 25.9 % (37-47); Hemoglobin 8.5 g/dL (12.0-16.0); Mean Corpuscular Hgb Conc 32.8 g/dL (32-36); Mean Corpuscular Volume 87.2 fL (80-100); Mean Platelet Volume 8.8 fL (7.4-10.4); Platelet Count 393 K/uL (130-400); RDW Coefficient of Variation 17.1 % (11.5-14.5); RDW Standard Deviation 53.8 fL (36.4-46.3); Red Blood Count 2.97 M/uL (4.2-5.4); White Blood Count 9.92 K/uL (4.8-10.8)
[2019-03-14 07:13] LABS: BUN Creatinine Ratio 4.5 (10-20); Calcium 8.3 mg/dl (8.5-10.1); Creatinine Clr Calc Pharmacy 82.3 ml/min; Est GFR (African American) 107.2; Est GFR (Non-African American) 92.5; Magnesium 1.7 mg/dl (1.8-2.4); Potassium 4.2 mmol/L (3.5-5.1)
--- NOTE | 2019-03-14 08:02 | Orthopedic Progress Note ---
Date of Service March 14, 2019 Assessment & Plan (1) Bimalleolar ankle fracture: POD#10 Ankle irrigation and debridement, External Fixator Application(Left) bimalleolar ankle fracture, repair 12 cm laceration -Pain management -PT/OT- NWB LLE -DVT prophylaxis-SCDs, Aspirin 81mg BID -Ice/elevation -Daily dressing changes. Will need to continue to watch the wound for skin necrosis/infection. Plans will be for continued elevation/wound checks. -Wound care recs appreciated for blisters -Continue IV antibx. -Plan for I & D today. Subjective Denies abdominal pain Has had multiple bowel movements and passing flatus Denies nausea and vomiting Tolerating clear liquids Worsened ankle pain last night. States she had a bad night. Physical Exam Constitutional: WD/WN, vitals as above Musculoskeletal: Left ankle: Stable ex fix. The medial ankle laceration is stable. Some improvement from yesterday but I believe the dressing change from Optifoam helped. Some central purulence noted. Psychiatric: A+Ox3, euthymic affect Results & Data Vital Signs (Past 12 Hours) Vital Signs Temp Pulse Pulse Resp BP Pulse Ox 03/14/19 06:50 36.7 C 92 H 19 123/80 98 03/13/19 23:03 36.7 C 98 H 16 126/79 99 (1) Bimalleolar ankle fracture Encounter type: initial encounter Fracture type: open Laterality: left Open fracture type: open type III Qualified Code(s): S82.842C - Displaced bimalleolar fracture of left lower leg, initial encounter for open fracture type IIIA, IIIB, or IIIC
[2019-03-14] MEDS: PANCREAZE (LIPASE 4,200U) CAP PO SCH ×3 (08:16→15:18)
[2019-03-14] MEDS: GABAPENTIN 300 MG CAP PO SCH ×3 (08:16→21:14)
[2019-03-14] MEDS: FERROUS SULFATE 325 MG TAB PO SCH ×2 (08:16→17:38)
[2019-03-14] MEDS ORDERED: MAGNESIUM OXIDE 400 MG TAB PO ONE (08:25)
[2019-03-14] MEDS ORDERED: MAGNESIUM SULFATE / D5W 1 GM/100 ML BAG IV ONE (08:31)
--- NOTE | 2019-03-14 08:35 | Anesthesiology Consultation ---
Date of Service March 14, 2019 Assessment & Plan (1) Encounter for pre-operative examination: Chart Review Chart Review: Acceptable Risk for Surgery and Patient NOT seen in Pre Admission Testing Consults Requested none ASA ASA3 Proposed Anesthesia Anesthesia Type: General Risk / Benefits Reviewed With: PT / POA / Parent / Guardian, Accepts Plan and Informed Consent Obtained History Surgery Operation Date: 03/04/19 14:40 Proposed Procedures p Left Ankle Incision and Drainage, Exfix Application - Riki Dao MD s External Fixator Application - Riki Dao MD Operation Date: 03/13/19 10:00 Proposed Procedures p Incision and Drainage Left Ankle(Left) - Farhan Erickson DO Operation Date: 03/14/19 10:00 Proposed Procedures p Incision and Drainage Left Ankle(Left) - Farhan Erickson DO Height/Weight Height: 5 ft 6 in Weight: 64 kg Allergies Allergy/AdvReac Type Severity Reaction Status Date / Time No Known Allergies Allergy Verified 03/04/19 14:51 Medications Home Medications Medication Instructions Recorded Confirmed Last Taken duloxetine [Cymbalta] 60 mg PO QAM 08/13/18 03/04/19 03/04/19 folic acid 1 mg PO QAM 08/13/18 03/04/19 03/03/19 gabapentin 300 mg PO TID 08/13/18 03/04/19 03/03/19 hydroxyzine pamoate [Vistaril] 50 mg PO BID PRN 08/13/18 03/04/19 Unknown vitamin B complex 1 tab PO QAM 08/13/18 03/04/19 03/03/19 ascorbic acid (vitamin C) [Vitamin 100 mg PO QAM 02/22/19 03/04/19 03/03/19 C] cholecalciferol (vitamin D3) 5,000 unit PO QAM 02/22/19 03/04/19 03/03/19 [Vitamin D3] cyanocobalamin (vitamin B-12) 1,000 mcg PO QAM 02/22/19 03/04/19 03/03/19 [Vitamin B-12] duloxetine 20 mg PO DAILY 02/22/19 03/04/19 03/03/19 ergocalciferol (vitamin D2) 50,000 unit PO WK 05/20/19 05/30/19 05/24/19 [Vitamin D2] [id number] [Creon] 1 cap PO TIDM 02/22/19 03/04/19 03/03/19 Active Medications Generic Name Dose Route Start Last Admin Trade Name Freq PRN Reason Stop Dose Admin Lipase/Protease/Amylase 1 cap 03/04/19 21:00 03/14/19 08:16 Pancreaze (Lipase 4200u) PO 04/03/19 20:59 Not Given AC ARPIT Aspirin 81 mg 03/05/19 09:00 03/13/19 12:51 Ecotrin Ectab PO 04/04/19 08:59 81 mg BID ARPIT Administration Betamethasone Valerate 1 appln 03/10/19 21:00 03/13/19 21:32 Valisone 0.1% EXT 03/20/19 20:59 Not Given BID ARPIT Calcium Carbonate 1,000 mg 03/06/19 13:45 03/09/19 21:45 Tums PO 04/05/19 13:44 1,000 mg Q6H PRN Administration Indigestion Chlordiazepoxide HCl 25 mg 03/06/19 09:00 03/10/19 14:21 Librium PO 04/05/19 08:59 Not Given TID ARPIT Duloxetine HCl 20 mg 03/05/19 14:00 03/13/19 15:51 Cymbalta PO 04/04/19 13:59 Not Given DAILY@1400 ARPIT Duloxetine HCl 60 mg 03/05/19 09:00 03/13/19 12:51 Cymbalta PO 04/04/19 08:59 60 mg QAM ARPIT Administration Ferrous Sulfate 325 mg 03/07/19 08:00 03/14/19 08:16 Feosol PO 04/06/19 07:59 Not Given BIDM ARPIT Folic Acid 1 mg 03/05/19 09:00 03/13/19 12:51 Folvite PO 04/04/19 08:59 1 mg QAM ARPIT Administration Gabapentin 300 mg 03/04/19 21:00 03/14/19 08:16 Neurontin PO 04/03/19 20:59 Not Given TID ARPIT Hydromorphone HCl 0.5 mg 03/11/19 09:57 03/14/19 09:16 Dilaudid IV 03/18/19 20:28 0.5 mg Q3H PRN Administration Pain Promethazine HCl 12.5 mg/ 50.5 mls @ 202 mls/hr 03/08/19 08:51 03/08/19 19:57 Sodium Chloride IV 04/07/19 08:50 Infused Q6H PRN Infusion Nausea And Vomiting Lorazepam 0.5 mg in 1 mls @ 0.5 mls/min 03/11/19 09:58 03/12/19 23:58 Ativan IV 04/10/19 09:57 0.5 mls/min Q6H PRN Administration Anxiety Cefepime HCl 2,000 mg/ Syringe 20 mls @ 5.5 mls/min 03/13/19 10:00 03/14/19 01:32 IV 03/23/19 09:59 5.5 mls/min Q8H ARPIT Administration Protocol Ioversol 90 ml 03/10/19 16:03 03/10/19 16:04 Optiray 320 100ml IV 03/14/19 16:02 90 ml ONCE PRN Administration Interaction Checking Multivitamins 1 tab 03/05/19 09:00 03/13/19 12:51 Multivitamin Tab PO 04/04/19 08:59 1 tab QAM ARPIT Administration Ondansetron HCl 4 mg 03/04/19 20:29 03/10/19 18:38 Zofran IV 04/03/19 20:28 4 mg Q6H PRN Administration Nausea Oxycodone HCl 5 mg 03/13/19 08:58 03/13/19 21:52 Roxicodone Immediate Rel PO 03/27/19 08:57 5 mg Q6H PRN Administration Pain Pantoprazole Sodium 40 mg 03/06/19 21:00 03/13/19 21:37 Protonix PO 04/05/19 20:59 40 mg BID ARPIT Administration Phenol 2 sprays 03/10/19 20:06 03/10/19 21:07 Chloraseptic 1.4% [place] 04/09/19 20:05 2 sprays Q2H PRN Administration Sore Throat Thiamine HCl 100 mg 03/06/19 03:24 03/13/19 12:51 Vitamin B-1 PO 04/05/19 03:23 100 mg QAM ARPIT Administration NPO Date Last Intake of Fluids: 03/13/19 Time Last Intake of Fluids: 23:55 Date Last Intake of Solids: 03/13/19 Time Last Intake of Solids: 23:55 Past Medical History Medical History Hydrosalpinx Chronic pancreatitis SBO (small bowel obstruction) (Resolved) Resolving Bimalleolar ankle fracture (Acute) Anxiety (Chronic) HAS UPCOMING LALA WITH PSYCH Chronic pancreatitis (Chronic) Cirrhosis of liver (Chronic) "COMPROMISED LIVER" Depression (Chronic) HAS UPCOMING LALA WITH PSYCH Diabetes mellitus (Chronic) TYPE 2 "SECONDARY" History of alcohol consumption (Chronic) Neuropathy (Chronic) OF FEET Nicotine dependence (Chronic) Pancreatic insufficiency (Chronic) Polycystic ovarian syndrome (Chronic) Alcohol withdrawal seizure (Resolved) NOT REPORTED BY PATIENT AT TIME OF PAT CALL - NOTED IN EMR PREVIOUSLY Abnormal TSH Abnormal blood sugar A1C LEVELS FLUCTUATE Bowel habit changes STARTED 1 YR AGO/LOOSE STOOLS AFTER EATING History of dizziness 2 WEEKS AGO, DIZZINESS AND NAUSEA, DENIES FEVER - HAS FULLY RESOLVED/EDU PROVIDED History of fracture TAILBONE - FLARES UP WITH WEATHER CHANGES IPMN (intraductal papillary mucinous neoplasm) Insomnia Lipoma Vitamin D deficiency Exercise / Class Metabolic Activity III < 4 Walking/Shop/Light housework Past Family History Family History Other Family history of breast cancer in mother Family history of breast cancer in sister Past Surgical History Surgical History History of ankle surgery 02/2019 left ankle ex fix, grade 2 view with MAC 3 and 7.0 ETT History of tooth extraction No family history of adverse response to anesthesia Past Anesthesia History No Hx of Anesthesia Complications and No Family Hx of Anesthesia Complications History of PONV No Hx of PONV and No Hx of Motion Sickness Social History Smoking Status: Current every day smoker tobacco type: cigarettes Smoking cigarettes per day: 1PPD - ADVISED NPO Do You Dip or Chew Tobacco: No Hx Alcohol Use: Yes Alcohol type: wine alcohol intake frequency: other Alcohol Intake Frequency Comment: binge drinker Hx Substance Use: No substance use type: does not use Review of Systems Patient denies active symptoms of GERD. Denies sx of n/v Negative for chest pain or shortness of breath. Physical Exam Vital Signs Last Vital Signs Temp 36.7 C 03/14/19 06:50 Pulse 92 H 03/14/19 06:50 Resp 19 03/14/19 06:50 BP 123/80 03/14/19 06:50 Pulse Ox 98 03/14/19 06:50 Constitutional not obese ENMT Mouth: no TMJ abnormality and oral opening not small Thyromental Distance: > or= 3.5 Finger Breadths Mallampati Class: II Mouth / Teeth: 1. Chipped 2. Implant Neck normal visual inspection; neck extension not limited Respiratory normal respiratory effort Auscultation: lungs clear to auscultation bilaterally Cardiovascular Rate/Rhythm: regular rate and regular rhythm Heart Sounds: no murmur Neurologic moves all extremities Motor/Sensory: no sensory deficit Psychiatric Orientation: alert and oriented x 3 Testing Laboratory Results 03/14/19 06:16 03/14/19 06:16 03/11/19 14:10 Gram Stain - Final Ankle,Left Wound Culture - Final Klebsiella oxytoca Enterobacter cloacae 03/07/19 10:09 Aerobic Blood Culture - Final Blood No growth in Aerobic bottle after 5 days. Anaerobic Blood Culture - Final No growth in Anaerobic bottle after 5 days. 03/07/19 10:40 Aerobic Blood Culture - Final Blood No growth in Aerobic bottle after 5 days. Anaerobic Blood Culture - Final No growth in Anaerobic bottle after 5 days. Electrocardiogram Date: 03/04/19 Findings: + ST @ (108) Poor data quality, interpretation may be adversely affected Sinus tachycar hilario Possible Left atrial enlargement Nonspecific ST abnormality Abnormal ECG When compared with ECG of 13-AUG-2018 14:22, No significant change was found Other Testing March 04, 2019. CHEST CT WITH CONTRAST CT DOSE: HISTORY: trauma TECHNIQUE: Multiaxial CT images of the chest were performed following the intravenous administration of contrast. A dose lowering technique was utilized adhering to the principles of ALARA. COMPARISON: None. FINDINGS: The central airways are patent. No pneumothorax. No pleural effusions. No focal lung consolidations. Multiple old, healed bilateral rib fractures. No acute fractures identified within the chest. No mediastinal hematoma. The heart is normal in size. Small hiatus hernia. Mild thickening of the distal esophagus. No mediastinal or hilar lymphadenopathy. The main pulmonary arteries are p atent. Normal caliber thoracic aorta. Mild superior endplate compression deformities at T1, T6, T9. These are technically age-indeterminate but likely old given the lack of paravertebral soft tissue swelling. IMPRESSION: 1. Mild superior endplate compression deformities at T1, T6, T9. These are technically age-indeterminate but likely old given the lack of paravertebral soft tissue swelling. 2. Otherwise, no acute process within the chest. 3. Small hiatus hernia with mild thickening of the distal esophagus. This may represent a nonspecific esophagitis.
[2019-03-14] MEDS ORDERED: SUCCINYLCHOLINE CHLORIDE 20 MG/ML 10 ML VIAL ONE (09:48)
[2019-03-14] MEDS ORDERED: ROCURONIUM BROMIDE 10 MG/ML 5 ML VIAL ONE (09:48)
[2019-03-14] MEDS ORDERED: MIDAZOLAM HCL 1 MG/ML 2ML VIAL ONE (09:49)
[2019-03-14] MEDS ORDERED: PROPOFOL IV EMULSION 10 MG/ML 20 ML VIAL IV ONE (09:49)
[2019-03-14] MEDS ORDERED: ONDANSETRON INJ 2 MG/ML 2 ML VIAL ONE (09:49)
[2019-03-14] MEDS ORDERED: LIDOCAINE HCL 2% 2 ML VIAL/AMP(20MG/ML) INFIL ONE (09:49)
[2019-03-14] MEDS ORDERED: fentaNYL citrate 100 MCG/2 ML VIAL ONE (09:49)
[2019-03-14] MEDS ORDERED: BACITRACIN INJ 50,000 UNIT VIAL ONE (09:58)
[2019-03-14] MEDS ORDERED: BUPIVACAINE 0.5 % 5 MG/1 ML MPF 30ML VIAL ONE (09:58)
[2019-03-14] MEDS ORDERED: ATROPINE SULFATE 0.1 MG/ML 10ML SYR IV PRN (11:06)
[2019-03-14] MEDS ORDERED: ePHEDrine sulfate 50 MG/ML AMP IV PRN (11:06)
[2019-03-14] MEDS ORDERED: ONDANSETRON INJ 2 MG/ML 2 ML VIAL IV PRN (11:06)
[2019-03-14] MEDS ORDERED: HYDROmorphone INJ 1 MG/ML SYRINGE IV PRN (11:06)
[2019-03-14] MEDS ORDERED: fentaNYL citrate 100 MCG/2 ML VIAL IV PRN (11:06)
--- NOTE | 2019-03-14 11:13 | Post Operative Brief Note ---
Immediate Post Op Note v1 Date of Surgery March 14, 2019 Pre & Post Diagnosis Operation Date: 03/04/19 14:40 Pre-Op Diagnosis: Open Left Ankle Fracture Post-Op Diagnosis: Open Left Ankle Fracture Operation Date: 03/13/19 10:00 <No data on this case meets the specified criteria> Operation Date: 03/14/19 10:00 Pre-Op Diagnosis: Left ankle infection Post-Op Diagnosis: Left ankle infection Procedure Operation Date: 03/04/19 14:40 Actual Procedures p Left Ankle Incision and Drainage, External Fixator Application(Left) - Riki Dao MD Operation Date: 03/13/19 10:00 <No data on this case meets the specified criteria> Operation Date: 03/14/19 10:00 Actual Procedures p Incision and Drainage Left Ankle, Application of Wound Vac(Left) - James Gonsales MD Surgeon James Gonsales MD General Cargo Clerk Glen Sharma PA-C Estimated Blood Loss 0 Findings Consistent with Post-Op Diagnosis Anesthesia Type General
--- NOTE | 2019-03-14 11:49 | Surgery Progress Note ---
Date of Service March 14, 2019 Assessment & Plan (1) SBO (small bowel obstruction): Small bowel obstruction if present has now completely resolved Tolerating regular diet having bowel movements We will sign off. Please let us know if we can be of further assistance Subjective Denies abdominal pain Denies nausea and vomiting Tolerating regular diet Physical Exam Gastrointestinal (Abdomen): Inspection/Auscultation: normal bowel sounds; abdomen not distended Percussion/Palpation: abdomen soft; abdomen nontender Results & Data Vital Signs (Past 12 Hours) Vital Signs Temp Pulse Pulse Resp BP BP Pulse Ox 03/14/19 11:40 74 19 137/91 100 03/14/19 11:30 74 14 126/85 100 03/14/19 11:21 36.4 C L 74 14 114/82 100 03/14/19 06:50 36.7 C 92 H 19 123/80 98
--- NOTE | 2019-03-14 12:24 | Anesthesiology Progress Note ---
Date of Service March 14, 2019 Anesthesia Post Procedure Vital Signs Vital Signs: Temp Pulse Pulse Pulse Resp BP BP 03/14/19 11:52 36.4 C L 81 14 121/72 03/14/19 11:40 74 19 137/91 03/14/19 11:30 74 14 126/85 03/14/19 11:21 36.4 C L 74 14 114/82 03/14/19 06:50 36.7 C 92 H 19 123/80 03/13/19 23:03 36.7 C 98 H 16 126/79 03/13/19 15:14 36.6 C 84 16 135/74 Pulse Ox 03/14/19 11:52 99 03/14/19 11:40 100 03/14/19 11:30 100 03/14/19 11:21 100 03/14/19 06:50 98 03/13/19 23:03 99 03/13/19 15:14 98 Pain Intensity Left Ankle: Pain Intensity: 3 Left Arm: Pain Intensity: 0 Left Leg: Pain Intensity: 5 Transfer of Care Handoff Completed per policy Notes Mental Status: alert / awake / arousable and participated in evaluation Patient Amnestic to Procedure: Yes Nausea / Vomiting: adequately controlled Pain: adequately controlled Airway Patency, RR, SpO2: stable & adequate BP & HR: stable & adequate Hydration State: stable & adequate Anesthetic Complications: no major complications apparent and Pt Satisfied with anesthetic care
[2019-03-14] MEDS: PANTOprazole 40 MG TAB PO SCH ×2 (13:27→21:14)
[2019-03-14] MEDS: THIAMINE HCL 100 MG TAB PO SCH (13:28)
[2019-03-14] MEDS: FOLIC ACID 1 MG TAB PO SCH (13:28)
[2019-03-14] MEDS: DULOXETINE HCL 20 MG CAP PO SCH ×2 (13:28→14:41)
[2019-03-14] MEDS: MULTIVITAMIN TAB PO SCH (13:28)
[2019-03-14] MEDS: DULOXETINE HCL 60 MG CAP PO SCH (13:29)
[2019-03-14] MEDS: BETAMETHASONE VAL 0.1% CR 15 GM EXT SCH ×2 (13:29→22:03)
[2019-03-14] MEDS: OXYCODONE HCL IR 5 MG TAB (IMMEDIATE RELEASE) PO PRN ×2 (13:37→17:41)
[2019-03-14] MEDS: chlordiazePOXIDE HCl 25 MG CAP PO SCH ×2 (13:38→22:03)
--- NOTE | 2019-03-14 14:52 | Ultrasound Report ---
US venous doppler LE LT HISTORY: 53 years-old Female Rule out DVT acute pain and swelling of the left lower extremity COMPARISON: None available TECHNIQUE: Multiple real-time sonographic images of the left lower extremity the venous structures we re obtained assessing grayscale appearance, color and spectral flow FINDINGS: Normal flow, compressibility, phasicity and augmentation of the left lower extremity the venous struc tures. Moderate subcutaneous edema IMPRESSION: No sonographic evidence of deep venous thrombosis. The above report was generated using voice recognition software. It may contain grammatical, syntax o r spelling errors. Electronically signed by: Joseph Rich M.D. 03/14/2019 2:49 PM
--- NOTE | 2019-03-14 16:35 | Hospitalist Progress Note ---
Date of Service March 14, 2019 Assessment & Plan (1) Bimalleolar ankle fracture: - Following fall at home; s/p left ankle irrigation and debridement, external fixator application bimalleolar ankle fracture and repair of 12 cm laceration on 03/04/19. - S/p I&D this morning by orthopedics, repeat intra op wound cultures pending. - C/o LLE pain and edema -- doppler was negative for DVT. - Blood cultures negative; wound culture from 03/11/19 +Klebsiella and Enterobacter. - Continue Cefepime per wound culture sensitivities. - DVT ppx: Aspirin 81 mg BID - Dilaudid IV and Oxycodone prn pain. - NWB on LLE; plan for rehab placement over next few days (?[facility]) (2) SBO (small bowel obstruction): - CT A/P showed SBO with transition point in the mid pelvis -- likely related to adhesions. - NG tube removed on 03/12; SBO now resolved. - General surgery consulted, appreciate input. - Tolerating regular diet, resumed PO meds. (3) Nausea and vomiting: - Acute nausea/vomiting was related to small bowel obstruction. - Will need GI evaluation including EGD/EUS and colonoscopy as outpatient. - May also have a component of underlying bulimia nervosa per family member. - Now resolved, tolerating diet. (4) Metabolic alkalosis: - Related to severe nausea/vomiting; now completely resolved. (5) Anemia: - Trend frequently. - Iron studies c/w iron deficiency anemia. - Continue folic acid, thiamine and ferrous sulfate. (6) Alcohol use: - H/o ETOH withdrawal during previous admissions; most recently reports she is an occasional drinker. - No evidence of acute withdrawal. - Ativan IV prn. - Thiamine/Folic acid. (7) Depression: - Continue Cymbalta as prescribed. (8) Pancreatic insufficiency: - Pancreatic enzyme replacement. - Will need GI work up as outpatient. (9) Chronic pancreatitis: - Noted on CT A/P; will need outpatient GI work up with EGD/EUS. 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 - Follow up as outpatient. (11) Electrolyte abnormality: - Monitor daily, replace as needed. - Mag level 1.7 -- received mag sulfate 1 gm IV. (12) DVT prophylaxis: - Aspirin BID. Dispo: Med/surg; s/p I&D today. Pt. will likely be stable for discharge to acute rehab over next 1-2 days. Supervising Physician Co-Signing Physician Notes PA Supervision Note: I did not personally see or examine the patient today, but I verified all jay points of ISSA Kelley's assessment and plan with the following exceptions/additions: None Subjective Pt. is doing well s/p I&D this morning. Is having regular BMs -- multiple large BMs yesterday. Denies N/V, abd distention. Pt. does complain of pain and swelling in left leg, specifically in the left calf and thigh area. Doppler was negative for DVT. Review of Systems Review of Systems: All systems reviewed & are unremarkable except as noted in HPI & below Constitutional: no fever, no chills, no fatigue, no weakness and no anorexia Respiratory: no cough, no dyspnea, no dyspnea on exertion and no wheezing Cardiovascular: + edema (L leg ) and + calf pain (L leg ); no chest pain and no palpitations Gastrointestinal: no abdominal pain, no nausea, no vomiting and no constipation Genitourinary: no difficulty urinating Musculoskeletal: + swelling (Left leg ); no back pain and no joint pain Integumentary: no non-healing lesions Allergy / Immunological: no rash Physical Exam Physical Exam: General: Resting comfortably in no apparent distress HEENT: NC/AT; PERRLA with EOMI; [place] conjunctiva, MMM. Neck: Supple and nontender Cardiac: RRR Lungs: CTA bilaterally Abdomen: Bowel normoactive X 4; Nontender to palpation Extremities: Warm. No edema present. Ex fix in place on LLE, dressing was not removed for exam. Neuro: No focal weakness Skin: No rash noted. Results & Data Vital Signs (Past 12 Hours) Vital Signs Temp Pulse Pulse Pulse Pulse Resp BP 03/14/19 14:37 36.4 C L 112 H 20 131/74 03/14/19 13:44 75 16 133/86 03/14/19 12:49 36.6 C 75 18 112/77 03/14/19 12:20 36.7 C 94 H 18 03/14/19 11:52 36.4 C L 81 14 03/14/19 11:40 74 19 06/09/19 11:30 74 14 03/14/19 11:21 36.4 C L 74 14 03/14/19 06:50 36.7 C 92 H 19 BP BP Pulse Ox 03/14/19 14:37 96 03/14/19 13:44 100 03/14/19 12:49 100 03/14/19 12:20 162/79 H 97 03/14/19 11:52 121/72 99 03/14/19 11:40 137/91 100 03/14/19 11:30 126/85 100 03/14/19 11:21 114/82 100 03/14/19 06:50 123/80 98 Laboratory Results 03/14/19 03/14/19 Range/Units 06:16 06:16 WBC 9.92 (4.8-10.8) K/uL RBC 2.97 L (4.2-5.4) M/uL Hgb 8.5 L (12.0-16.0) g/dL Hct 25.9 L (37-47) % MCV 87.2 (80-100) fL MCH 28.6 (25-34) pg MCHC 32.8 (32-36) g/dL RDW Std Deviation 53.8 H (36.4-46.3) fL RDW Coeff of Ethel 17.1 H (11.5-14.5) % Plt Count 393 (130-400) K/uL MPV 8.8 (7.4-10.4) fL Sodium 139 (136-145) mmol/L Potassium 4.2 (3.5-5.1) mmol/L Chloride 106 (98-107) mmol/L Carbon Dioxide 29 (21-32) mmol/L Anion Gap 4.0 (3-11) BUN 3 L (7-18) mg/dl Creatinine 0.74 (0.6-1.2) mg/dl Est Cr Clr Drug Dosing 82.3 ml/min Est GFR ( Amer) 107.2 Est GFR (Non-Af Amer) 92.5 BUN/Creatinine Ratio 4.5 L (10-20) Glucose 101 H (70-99) mg/dl Calcium 8.3 L (8.5-10.1) mg/dl Magnesium 1.7 L (1.8-2.4) mg/dl (1) Bimalleolar ankle fracture Encounter type: initial encounter Fracture type: open Laterality: left Open fracture type: open type III Qualified Code(s): S82.842C - Displaced bimalleolar fracture of left lower leg, initial encounter for open fracture type IIIA, IIIB, or IIIC
[2019-03-14] MEDS: ONDANSETRON INJ 2 MG/ML 2 ML VIAL IV PRN (21:07)
[2019-03-14] MEDS: ASPIRIN 81 MG ECTAB PO SCH (22:03)
[2019-03-15] MEDS: CEFEPIME 2,000 MG in SYRINGE 7.5 ML IV SCH ×3 (02:22→17:43)
[2019-03-15] MEDS: OXYCODONE HCL IR 5 MG TAB (IMMEDIATE RELEASE) PO PRN ×4 (02:47→23:41)
[2019-03-15] MEDS: HYDROmorphone INJ 0.5 MG/0.5 ML SYR IV PRN ×3 (03:47→17:52)
[2019-03-15] MEDS: CALCIUM CARBONATE 500 MG CHEWABLE TAB PO PRN (04:02)
[2019-03-15 06:27] LABS: Hematocrit (blood only) 27.3 % (37-47); Hemoglobin 8.9 g/dL (12.0-16.0); Mean Corpuscular Hgb Conc 32.6 g/dL (32-36); Mean Corpuscular Volume 87.5 fL (80-100); Platelet Count 424 K/uL (130-400); RDW Coefficient of Variation 17.5 % (11.5-14.5); RDW Standard Deviation 54.9 fL (36.4-46.3); Red Blood Count 3.12 M/uL (4.2-5.4); White Blood Count 10.05 K/uL (4.8-10.8)
[2019-03-15 06:57] LABS: BUN Creatinine Ratio 8.4 (10-20); Calcium 8.6 mg/dl (8.5-10.1); Creatinine Clr Calc Pharmacy 69.2 ml/min; Est GFR (African American) 86.9; Magnesium 1.8 mg/dl (1.8-2.4); Potassium 4.4 mmol/L (3.5-5.1)
--- NOTE | 2019-03-15 07:17 | Operative Report ---
DATE OF OPERATION: 03/14/2019 PREOPERATIVE DIAGNOSIS: Left ankle infection. POSTOPERATIVE DIAGNOSES: Left ankle infection plus left ankle necrotic skin. PROCEDURE: 1. Left ankle irrigation and debridement and infection. 2. Left ankle excisional debridement of skin. 3. Left ankle application of VAC. SURGEON: Artemio Gonsales MD. HUMAN RESOURCES SUPERVISOR: None. ANESTHESIA: General. FINDINGS: 1. A 3 x 2 area of necrotic skin. 2. Mild amount of drainage from the ankle joint, but no evidence of gross purulence in the ankle joint. 3. The patient had subcutaneous fluid pocket separate from the area of necrotic skin, 2 cm inferior to the open wound. INDICATIONS: Female, status post I and D of ankle fracture. She presents with persistent drainage and worsening of wound. She presents for irrigation and debridement, other work as indicated. The risks and benefits have been discussed including, but not limited to, risk of infection, nerve injury, stiffness, loss of motion, failure to improve, etc. Reasonable outcomes and options of treatment were discussed. An explanation of appropriate alternatives to the procedure that may be advantageous were discussed and their risks and benefits, as well as the risks and benefits of not proceeding with treatment. I offered to answer any additional inquiries concerning the treatment involved. All the patient's questions were answered. The patient is agreeable, understanding of the treatment plan and alternatives, and wishes to proceed with the treatment plan. DESCRIPTION OF OPERATION: I removed the patient's sutures, open wound was inspected. There was evidence of superficial skin necrosis of an area about 3 x 2 cm. This was mostly superior to the previous open wound. I performed excisional debridement of skin and subcutaneous tissue with a knife and scalpel, removing devitalized tissue. I then opened the previous wound and inspected the deeper tissues. I bluntly probed into the ankle joint. There was evidence of small amount of fluid, but no gross pus into the ankle joint. I did send the fluid in the ankle joint region for cultures. This is the first set of cultures that I set. The patient had area of subcutaneous fluctuance 2 cm distal to the open incision. I put a small poke hole in that area and drained out fluid. This did appear to have an infectious quality and was sent for cultures, this was a second set of cultures I took. I partially closed the skin over the lateral aspect of the previous incision and I elected to proceed with excisional debridment. about 3 x 2 cm. A VAC sponge was cut to fit and I placed a VAC adherent over the sponge and then I placed a VAC on 125 mmHg of suction. This resulted in a good suction with a low leak. I placed a soft dressing on the second more superficial area to allow this to drain. The patient was placed in soft dressings and sent to PACU in stable condition. Postoperative plan will be continued VAC changes by wound care. We will monitor cultures. I attest to the content of the Intraoperative Record and any orders documented therein. Any exceptions are noted below. JESSICAD
[2019-03-15] MEDS: GABAPENTIN 300 MG CAP PO SCH ×3 (08:35→20:34)
[2019-03-15] MEDS: PANTOprazole 40 MG TAB PO SCH ×2 (08:35→20:34)
[2019-03-15] MEDS: PANCREAZE (LIPASE 4,200U) CAP PO SCH ×3 (08:35→17:43)
[2019-03-15] MEDS: THIAMINE HCL 100 MG TAB PO SCH (08:36)
[2019-03-15] MEDS: FERROUS SULFATE 325 MG TAB PO SCH ×2 (08:36→17:43)
[2019-03-15] MEDS: ASPIRIN 81 MG ECTAB PO SCH ×2 (08:36→20:35)
[2019-03-15] MEDS: FOLIC ACID 1 MG TAB PO SCH (08:36)
[2019-03-15] MEDS: MULTIVITAMIN TAB PO SCH (08:36)
[2019-03-15] MEDS: BETAMETHASONE VAL 0.1% CR 15 GM EXT SCH ×2 (08:36→20:35)
[2019-03-15] MEDS: DULOXETINE HCL 60 MG CAP PO SCH (08:36)
[2019-03-15] MEDS: chlordiazePOXIDE HCl 25 MG CAP PO SCH ×2 (08:38→20:37)
--- NOTE | 2019-03-15 11:39 | Hospitalist Progress Note ---
Date of Service March 15, 2019 Assessment & Plan (1) Bimalleolar ankle fracture: - S/P fall at home; S/P L I&D, external fixator application for bimalleolar ankle fx and repair of 12 cm laceration on 03/04 and now S/P I&D on 03/14 - Initial cx with klebsiella oxytoca and enterobacter cloacae with cx from 02/11 with gram neg organisms; BCx NGTD - Continues with LLE edema - doppler neg for DVT - Continue Cefepime at current time - await repeat Cx for any Abx adjustments - DVT prophylaxis: ASA 81 mg BID - Pain control - NWB on LLE - planning on rehab possibly at [facility] - Orthopedics following - appreciate input and surgical management Present on Admission?: Yes (2) SBO (small bowel obstruction): - CT with SBO with transition point in mid pelvis - likely secondary to adhesions - NGT removed 03/12; SBO now resolved and tolerating diet - If ongoing issues could have GI evaluation with EGD/EUS/Colonoscopy as outpatient; family mentioned possible element of bulimia nervosa - Gen Surg consulted - appreciate input - did S/O at this time Present on Admission?: Yes (3) Metabolic alkalosis: - Related to severe nausea/vomiting; now completely resolved. (4) Anemia: - STABLE - Iron studies support FAYE; likely though multifactorial given ETOH use - Continue folic acid, thiamine and ferrous sulfate. Present on Admission?: Yes (5) Alcohol use: - 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; reports she is an occasional drinker - No signs of active withdrawal at this time; Ativan PRN; Thiamine/Folic acid - Will begin Librium taper - will do 25 mg BID and likely can go to daily on 03/16 and taper further Present on Admission?: Yes (6) Depression: - Continue Cymbalta 60 mg daily Present on Admission?: Yes (7) Chronic pancreatitis: - With pancreatic insufficiency; should have GI F/U as outpatient - could ocnsider EGD/EUS - Continue pancreatic enzymes Present on Admission?: Yes (8) Hydrosalpinx: - Noted on CT; F/U as outpatient (9) DVT prophylaxis: - Aspirin BID. Disposition: Await any further orthopedic needs and repeat cx development; possible to [facility] this week Subjective Reports feeling well this morning. Continues with intermittent pain but controlled. Ambulating the hallways this AM with therapy. In good spirits today. States she feels well but is having intermittent diarrhea but denies cramping sensation or ill feeling. States she isn't sure why her heart rate is staying elevated as she doesn't feel anxious and feels about her normal self. Review of Systems Constitutional: no fever, no chills, no fatigue and no weakness Respiratory: no cough and no dyspnea Cardiovascular: + edema (L foot); no chest pain Gastrointestinal: + diarrhea/loose stools; no abdominal pain, no nausea, no vomiting and no constipation Genitourinary: no dysuria Musculoskeletal: + joint pain (L ankle) Integumentary: no rash Neurologic: no loss of sensation Physical Exam Constitutional: WD/WN, vitals as above Eyes: + anicteric sclerae Neck: trachea midline Respiratory: normal respiratory effort, lungs clear to auscultation Cardiovascular: Rate/Rhythm: regular rhythm and + tachycardic Heart Sounds: no murmur Extremities: + pedal edema (L) Gastrointestinal (Abdomen): Inspection/Auscultation: normal bowel sounds Percussion/Palpation: abdomen soft; abdomen nontender Musculoskeletal: Head/Neck/Chest: normocephalic and head atraumatic LLE with external fixation device attaching inferior to knee and into L ankle. JOHANNY wrap applied with wound vac in place; cap refill immediate; evidence of pedal edema Skin: no rashes, warm and dry Neurologic: moves all extremities Psychiatric: A+Ox3, euthymic affect Results & Data Vital Signs (Past 12 Hours) Vital Signs Temp Pulse Pulse Resp BP Pulse Ox 03/15/19 10:47 106 H 03/15/19 07:40 37.1 C 116 H 116 H 20 110/76 100 (1) Bimalleolar ankle fracture Encounter type: initial encounter Fracture type: open Laterality: left Open fracture type: open type III Qualified Code(s): S82.842C - Displaced bimalleolar fracture of left lower leg, initial encounter for open fracture type IIIA, IIIB, or IIIC
[2019-03-15] MEDS: DULOXETINE HCL 20 MG CAP PO SCH (12:27)
--- NOTE | 2019-03-15 12:40 | Orthopedic Progress Note ---
Date of Service March 15, 2019 Assessment & Plan (1) Bimalleolar ankle fracture: POD#11 Ankle irrigation and debridement, External Fixator Application(Left) bimalleolar ankle fracture, repair 12 cm laceration -Pain management -PT/OT- NWB LLE -DVT prophylaxis-SCDs, Aspirin 81mg BID -Ice/elevation -Wound care recs appreciated for blisters -Continue IV antibx. POD #1 s/p repeat I & D left ankle, application wound vac. --await final cultures of new cultures during second procedure. Patient seen and examined, agree with above assessment and plan. Subjective Doing better today. No new complaints. Physical Exam Constitutional: WD/WN, vitals as above Musculoskeletal: Ankle: + skin erythema (mild left ankle erythema around the medial laceration--improved); no ecchymosis left ankle: ex fix in place. Wound vac in place and functioning. Improved swelling. Psychiatric: A+Ox3, euthymic affect Results & Data Vital Signs (Past 12 Hours) Vital Signs Temp Pulse Pulse Resp BP Pulse Ox 03/15/19 10:47 106 H 03/15/19 07:40 37.1 C 116 H 116 H 20 110/76 100 (1) Bimalleolar ankle fracture Encounter type: initial encounter Fracture type: open Laterality: left Open fracture type: open type III Qualified Code(s): S82.842C - Displaced bimalleolar fracture of left lower leg, initial encounter for open fracture type IIIA, IIIB, or IIIC
--- NOTE | 2019-03-15 13:37 | Infectious Disease Progress Nt ---
Date of Service March 15, 2019 Assessment & Plan (1) Open ankle fracture: continue cefepime for now, await OR culture results, suspect will be the same on 03/11 cultures. continue wound care. (2) Alcohol dependence: Subjective pt s/p OR, cultures growing gnr x 2. superficial culture done on 03/11 grew Enterobacter and K. oxytoca, I to augmentin, now on cefepime, tolerating well. afebrile. vac in place. wbc 10 Results & Data Vital Signs (Past 12 Hours) Vital Signs Temp Pulse Pulse Resp BP Pulse Ox 03/15/19 10:47 106 H 03/15/19 07:40 37.1 C 116 H 116 H 20 110/76 100 Laboratory Results Microbiology 03/14/19 10:45 Ankle,Left Gram Stain - Final 03/14/19 10:45 Ankle,Left Aerobic and Anaerobic Culture - Preliminary Gram negative bacilli Gram negative bacilli#2 03/14/19 11:04 Ankle,Left Gram Stain - Final 03/14/19 11:04 Ankle,Left Aerobic and Anaerobic Culture - Preliminary Gram negative bacilli 03/11/19 14:10 Ankle,Left Gram Stain - Final 03/11/19 14:10 Ankle,Left Wound Culture - Final Klebsiella oxytoca Enterobacter cloacae 03/07/19 10:09 Blood Aerobic Blood Culture - Final No growth in Aerobic bottle after 5 days. 03/07/19 10:09 Blood Anaerobic Blood Culture - Final No growth in Anaerobic bottle after 5 days. 03/07/19 10:40 Blood Aerobic Blood Culture - Final No growth in Aerobic bottle after 5 days. 03/07/19 10:40 Blood Anaerobic Blood Culture - Final No growth in Anaerobic bottle after 5 days. (1) Alcohol dependence Substance use status: other alcohol-induced disorder Qualified Code(s): F10.288 - Alcohol dependence with other alcohol-induced disorder (2) Open ankle fracture Encounter type: initial encounter Laterality: left Open fracture type: open type III Qualified Code(s): S82.892C - Other fracture of left lower leg, initial encounter for open fracture type IIIA, IIIB, or IIIC
[2019-03-16] MEDS: CEFEPIME 2,000 MG in SYRINGE 7.5 ML IV SCH (01:56)
[2019-03-16] MEDS: HYDROmorphone INJ 0.5 MG/0.5 ML SYR IV PRN ×4 (02:04→23:51)
[2019-03-16] MEDS: THIAMINE HCL 100 MG TAB PO SCH (09:39)
[2019-03-16] MEDS: PANCREAZE (LIPASE 4,200U) CAP PO SCH ×3 (09:39→18:12)
[2019-03-16] MEDS: FERROUS SULFATE 325 MG TAB PO SCH ×2 (09:39→18:12)
[2019-03-16] MEDS: chlordiazePOXIDE HCl 25 MG CAP PO SCH (09:39)
[2019-03-16] MEDS: ASPIRIN 81 MG ECTAB PO SCH ×2 (09:39→21:05)
[2019-03-16] MEDS: FOLIC ACID 1 MG TAB PO SCH (09:39)
[2019-03-16] MEDS: DULOXETINE HCL 60 MG CAP PO SCH (09:40)
[2019-03-16] MEDS: GABAPENTIN 300 MG CAP PO SCH ×3 (09:40→21:04)
[2019-03-16] MEDS: PANTOprazole 40 MG TAB PO SCH ×2 (09:40→21:04)
[2019-03-16] MEDS: MULTIVITAMIN TAB PO SCH (09:40)
[2019-03-16] MEDS: BETAMETHASONE VAL 0.1% CR 15 GM EXT SCH ×2 (09:40→21:04)
--- NOTE | 2019-03-16 09:42 | Orthopedic Progress Note ---
Date of Service March 16, 2019 Assessment & Plan (1) Bimalleolar ankle fracture: POD#12 Ankle irrigation and debridement, External Fixator Application(Left) bimalleolar ankle fracture, repair 12 cm laceration -Pain management -PT/OT- NWB LLE -DVT prophylaxis-SCDs, Aspirin 81mg BID -Ice/elevation -Wound care recs appreciated for blisters -Continue IV antibx. POD #2 s/p repeat I & D left ankle, application wound vac. --await final cultures of new cultures during second procedure. due to increase in her posterior calf/thigh pain will order repeat US to eval for DVT prior to ordering any type of muscle relaxers. Subjective having c/o pain in her calf and posterior thigh. states they are "like muscle spasms" Physical Exam Physical Exam: Vital Signs Temp Pulse Resp BP BP Pulse Ox 03/16/19 08:20 36.7 C 92 H 19 105/70 99 03/15/19 23:21 36.8 C 102 H 16 117/72 98 03/15/19 15:58 37 C 116 H 16 121/79 96 03/15/19 10:47 106 H Intake and Output 03/15/19 03/16/19 03/16/19 22:59 06:59 14:59 Intake Total 600 / 1420 300 / 300 Balance 600 / 1419 300 / 300 Intake: Oral 600 / 1420 300 / 300 Other: # Unmeasured Voi ds 2 1 Constitutional: WD/WN, vitals as above no acute distress Musculoskeletal: Left Ankle: + erythema, ex fix in place no signs of drainage from pin sites. Wound vac in place and functioning. Improved swelling. has tightness posterior calf and posterior thigh. she is able to wiggle her toes and sensation intact to light touch, moderate swelling dorsum of her foot. Psychiatric: Orientation: alert and oriented x 3 Results & Data Vital Signs (Past 12 Hours) Vital Signs Temp Pulse Resp BP Pulse Ox 03/16/19 08:20 36.7 C 92 H 19 105/70 99 03/15/19 23:21 36.8 C 102 H 16 117/72 98 (1) Bimalleolar ankle fracture Encounter type: initial encounter Fracture type: open Laterality: left Open fracture type: open type III Qualified Code(s): S82.842C - Displaced bimalleolar fracture of left lower leg, initial encounter for open fracture type IIIA, IIIB, or IIIC
[2019-03-16] MEDS: OXYCODONE HCL IR 5 MG TAB (IMMEDIATE RELEASE) PO PRN ×2 (10:54→21:15)
[2019-03-16] MEDS: ERTAPENEM SODIUM 1,000 MG in SODIUM CHLORIDE 0.9% 50 ML IV SCH (10:55)
--- NOTE | 2019-03-16 12:57 | Ultrasound Report ---
US venous doppler LE LT HISTORY: 53 years-old Female calf pain acute pain and swelling of the left lower leg COMPARISON: Duplex venous Doppler study 03/14/2019 TECHNIQUE: Multiple real-time sonographic images of the left lower extremity deep venous structures w ere obtained assessing grayscale appearance, color and spectral flow FINDINGS: Moderate edema of the subcutaneous tissues. Normal flow, compressibility, phasicity and augmentation of the left lower extremity deep venous structures. IMPRESSION: No sonographic evidence of deep venous thrombosis. The above report was generated using voice recognition software. It may contain grammatical, syntax o r spelling errors. Electronically signed by: Joseph Rich M.D. 03/16/2019 12:56 PM
[2019-03-16] MEDS: DULOXETINE HCL 20 MG CAP PO SCH (13:31)
--- NOTE | 2019-03-16 13:50 | Infectious Disease Progress Nt ---
Date of Service March 16, 2019 Assessment & Plan (1) Open ankle fracture: agree with change to ertapenem, will need picc line, blood cultures negative. would give 4 weeks with likelyhood of bone involvement. will need weekly cbc,cmp,esr while on abx. (2) Alcohol dependence: Subjective pt seen in followup, changed from cefepime to ertapenem today due to OR cultures growing ESBL+ K. oxytoca. she previously had sensitive klebsiella and enter obacter growing from superficial culture, both sensitive to cefepime. afebrile. min pain in ankle, ORIF, dressing intact ,vac in place. no abd pain, no n/v/d, no cp, sob, cough. blood cultures from admission negative to date. Review of Systems Review of Systems: All systems reviewed & are unremarkable except as noted in HPI & below Physical Exam Constitutional: WD/WN, vitals as above Eyes: PERRL, conjunctivae normal, anicteric sclerae ENMT: external ear and nose normal, oropharynx normal Neck: normal visual inspection Respiratory: normal respiratory effort, lungs clear to auscultation Cardiovascular: RRR, no murmur, no edema Gastrointestinal (Abdomen): normal bowel sounds, soft, nontender, no hepatosplenomegaly Musculoskeletal: no cyanosis or clubbing, extremities motor strength 5/5 Skin: no rashes, warm and dry Psychiatric: A+Ox3, euthymic affect Results & Data Vital Signs (Past 12 Hours) Vital Signs Temp Pulse Resp BP Pulse Ox 03/16/19 08:20 36.7 C 92 H 19 105/70 99 Laboratory Results Microbiology 03/14/19 11:04 Ankle,Left Gram Stain - Final 03/14/19 11:04 Ankle,Left Aerobic and Anaerobic Culture - Preliminary Klebsiella oxytoca 03/14/19 10:45 Ankle,Left Gram Stain - Final 03/14/19 10:45 Ankle,Left Aerobic and Anaerobic Culture - Preliminary Enterobacter cloacae Klebsiella oxytoca ESBL 03/11/19 14:10 Ankle,Left Gram Stain - Final 03/11/19 14:10 Ankle,Left Wound Culture - Final Klebsiella oxytoca Enterobacter cloacae 03/07/19 10:09 Blood Aerobic Blood Culture - Final No growth in Aerobic bottle after 5 days. 03/07/19 10:09 Blood Anaerobic Blood Culture - Final No growth in Anaerobic bottle after 5 days. 03/07/19 10:40 Blood Aerobic Blood Culture - Final No growth in Aerobic bottle after 5 days. 03/07/19 10:40 Blood Anaerobic Blood Culture - Final No growth in Anaerobic bottle after 5 days. (1) Alcohol dependence Substance use status: other alcohol-induced disorder Qualified Code(s): F10.288 - Alcohol dependence with other alcohol-induced disorder (2) Open ankle fracture Encounter type: initial encounter Laterality: left Open fracture type: open type III Qualified Code(s): S82.892C - Other fracture of left lower leg, initial encounter for open fracture type IIIA, IIIB, or IIIC
--- NOTE | 2019-03-16 14:57 | Hospitalist Progress Note ---
Date of Service March 16, 2019 Assessment & Plan (1) Bimalleolar ankle fracture: - S/P fall at home; S/P L I&D, external fixator application for bimalleolar ankle fx and repair of 12 cm laceration on 03/04 and now S/P I&D on 03/14 - Initial cx with klebsiella oxytoca and enterobacter cloacae with cx from 02/11 with klebsiella oxytoca and a ESBL Klebsiella oxytoca; BCx NGTD - Continues with LLE edema - doppler neg for DVT - Convert Cefepime to Ertapenem given MDR Klebsiella - will ultimately need PICC and approx. 4 weeks ABx as discussed with ID - DVT prophylaxis: ASA 81 mg BID - Pain control - NWB on LLE - planning on rehab possibly at [facility] - Orthopedics following - appreciate input and surgical management (2) SBO (small bowel obstruction): - CT with SBO with transition point in mid pelvis - likely secondary to adhesions - NGT removed 03/12; SBO now resolved and tolerating diet - If ongoing issues could have GI evaluation with EGD/EUS/Colonoscopy as outpatient; family mentioned possible element of bulimia nervosa - Gen Surg consulted - appreciate input - did S/O at this time (3) Metabolic alkalosis: - Related to severe nausea/vomiting; now completely resolved. (4) Anemia: - STABLE - Iron studies support FAYE; likely though multifactorial given ETOH use - Continue folic acid, thiamine and ferrous sulfate. (5) Alcohol use: - 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; reports she is an occasional drinker - No signs of active withdrawal at this time; Ativan PRN; Thiamine/Folic acid - Will begin Librium taper - will do 25 mg BID and likely can go to daily on 03/16 and taper further (6) Depression: - Continue Cymbalta 60 mg daily (7) Chronic pancreatitis: - With pancreatic insufficiency; should have GI F/U as outpatient - could ocnsider EGD/EUS - Continue pancreatic enzymes (8) Hydrosalpinx: - Noted on CT; F/U as outpatient (9) DVT prophylaxis: - Aspirin BID. Disposition: Await any further orthopedic needs and repeat cx development; possible to [facility] this week Subjective Reports feeling well today. Reports some spasm-like pain in the L thigh and feelings of knots. U/S did not reveal DVT. Wound Cx now with ESBL Klebsiella and converted Abx to Ertapenem. Verbalizes no other complaints. Review of Systems Constitutional: no fever and no chills Respiratory: no cough and no dyspnea Cardiovascular: no chest pain Gastrointestinal: no abdominal pain, no nausea, no vomiting, no constipation and no diarrhea/loose stools Genitourinary: no dysuria Musculoskeletal: + joint pain (L ankle/foot) and + swelling (LLE) + spasm- like pain in L thigh Physical Exam Constitutional: WD/WN, vitals as above Eyes: + anicteric sclerae Neck: trachea midline Respiratory: normal respiratory effort, lungs clear to auscultation Cardiovascular: Rate/Rhythm: regular rate and regular rhythm Heart Sounds: no murmur Extremities: + pedal edema (L) Gastrointestinal (Abdomen): Inspection/Auscultation: normal bowel sounds Percussion/Palpation: abdomen soft; abdomen nontender Musculoskeletal: Head/Neck/Chest: normocephalic and head atraumatic L ankle and lower extremity with external fixator in place with wound vac placement; pedal edema and edema extending to knee; able to move toes Skin: no rashes, warm and dry Neurologic: moves all extremities Psychiatric: A+Ox3, euthymic affect Results & Data Vital Signs (Past 12 Hours) Vital Signs Temp Pulse Resp BP Pulse Ox 03/16/19 08:20 36.7 C 92 H 19 105/70 99 (1) Bimalleolar ankle fracture Encounter type: initial encounter Fracture type: open Laterality: left Open fracture type: open type III Qualified Code(s): S82.842C - Displaced bimalleolar fracture of left lower leg, initial encounter for open fracture type IIIA, IIIB, or IIIC
--- NOTE | 2019-03-16 16:48 | Psychiatric Progress Note ---
Date of Service March 16, 2019 Impression / Recommendations (1) Depression: 53-year-old female seen initially on psychiatric consult service on 03/11/19 to evaluate for depression and alcohol abuse. Pt was maintained on her current medication regimen as there was no significant change in symptoms reported. Inpatient D&A rehabilitation was recommended to the patient who was not interested. This provider reviewed the patient's current medication regimen - which includes home prescription for hydroxyzine. Pt was agreeable to resuming the medication as needed for anxiety. Pt was also agreeable to a small titration of her duloxetine to 60mg qAM and 30mg in the afternoon. Risks and benefits were reviewed. Pt verbalized understanding and was agreeable to changes discussed. We reviewed areas these medication changes may be beneficial; however, patient was encouraged to pursue recommendations for outpatient therapy and psychiatric medication management. Pt denies SI or other acute psychiatric concerns. No indication for inpatient psychiatric hospitalization. Dr. Nora Frances was directly involved in review and discussion of the patient's case and participated in medical decision making regarding treatment recommendations. Interval History Identifying Information 53-year-old female with PMH of peripheral neuropathy, depression, alcohol abuse, and chronic pancreatitis who presented to the ED with a bimalleolar ankle fracture now s/p irrigation, debridement, and external fixator application. Psychiatric consultation initially completed on 03/11/19 for depression and alcohol dependence. Seen today for follow-up visit. Chief Complaint "Oh yeah, I had called and asked for someone to come see me. Now you're here." Review of Systems Notes Constitutional: reports anxiety and restlessness Cardiovascular: denied Respiratory: denied Gastrointestinal: denied Neurological: denied Musculoskeletal: reports left lower leg pain Psychiatric: denies symptoms other than stated above Total of at least 10 systems reviewed, pertinent positives as above and in HPI. Subjective Subjective Patient case was reviewed and discussed with psychiatric nurse liaison and supervising psychiatrist. It was reported that patient had called the [facility] unit phone around midnight last evening and requested to schedule an appointment with psychiatry - stating her mood was "flexing". She was informed that we have been following along with her case and that someone would meet with her today. Pt was seen today to discuss her concerns and review medications. Pt states that she has been feeling somewhat overwhelmed. She states she had been feeling she was turning her life around after her divorce, becoming more independent, and is now frustrated that her injury will limit her from pursuing this progress further. Reviewed medication history with the patient, who was agreeable to small titration of her duloxetine to 90mg from her current 80mg dose. She is also prescribed hydroxyzine at home for anxiety, but uses it minimally. She does believe it is helpful for anxiety. Reviewed our plan to provide patient with outpatient resources for therapy and psychiatric providers - as it will be difficult to schedule appointments when she will be completing physical rehabilitation as an inpatient. Pt was pleased to hear that she would be connected with these resources, and recognized that some of her concerns may be better addressed in the therapy setting. Pt denies SI/HI or other acute psychiatric concerns. She denies other needs at this time. Procedures Performed Operation Date: 03/04/19 14:40 Actual Procedures p Left Ankle Incision and Drainage, External Fixator Application(Left) - Riki Dao MD Operation Date: 03/13/19 10:00 <No data on this case meets the specified criteria> Operation Date: 03/14/19 10:00 Actual Procedures p Incision and Drainage Left Ankle, Application of Wound Vac(Left) - James Gonsales MD Physical Exam Psychiatric Orientation: alert, oriented x 3 and cooperative Apperance: appropriately dressed (in hospital gown) and appropriately groomed Eye Contact: good eye contact Motor Behavior: no abnormal motor movements observed while sitting up in bed Speech: normal rate/rhythm/volume of speech Affect is mildly labile - overall euthymic affect, but some episodes of tearfulness with reviewing her relationship history with this provider "Just overwhelmed, I'm not even sure" Thought Process: goal directed thought process and clear/coherent thought process Thought Content: reality based without delusions Suicidal Thoughts: denies suicidal thoughts Homicidal Thoughts: denies homicidal thoughts Hallucinations: no auditory hallucinations and no visual hallucinations Cognition: remote memory grossly intact, attention grossly intact and language grossly intact Estimated Intelligence: consistent with education level Insight: + fair insight Judgement: + fair judgement Vital Signs (Past 24 Hours) Last Vital Signs Temp 36.8 C 03/16/19 16:05 Pulse 92 H 03/16/19 16:05 Resp 16 03/16/19 16:05 BP 113/72 03/16/19 16:05 Pulse Ox 99 03/16/19 16:05 Results & Data Current Inpatient Medications Current Inpatient Medications: Current Inpatient Medications Lipase/Protease/Amylase (Pancreaze (Lipase 4200u)) 1 cap PO AC [facility] Stop: 04/03/19 20:59 Last Admin: 03/16/19 13:31 Dose: 1 cap Documented by: Aspirin (Ecotrin Ectab) 81 mg PO BID [facility] Stop: 04/04/19 08:59 Last Admin: 03/16/19 09:39 Dose: 81 mg Documented by: Baclofen (Lioresal) 10 mg PO TID PRN PRN Reason: Muscle Spasm Stop: 04/15/19 13:59 Betamethasone Valerate (Valisone 0.1%) 1 appln EXT BID [facility] Stop: 03/20/19 20:59 Last Admin: 03/16/19 09:40 Dose: 1 appln Documented by: Bisacodyl (Dulcolax) 10 mg LA DAILY PRN PRN Reason: Constipation Stop: 04/03/19 20:28 Calcium Carbonate (Tums) 1,000 mg PO Q6H PRN PRN Reason: Indigestion Stop: 04/05/19 13:44 Last Admin: 03/15/19 04:02 Dose: 1,000 mg Documented by: Chlordiazepoxide HCl (Librium) 25 mg PO BID [facility] Stop: 04/14/19 20:59 Last Admin: 03/16/19 09:39 Dose: 25 mg Documented by: Duloxetine HCl (Cymbalta) 20 mg PO DAILY@1400 [facility] Stop: 04/04/19 13:59 Last Admin: 03/16/19 13:31 Dose: 20 mg Documented by: Duloxetine HCl (Cymbalta) 60 mg PO QAM [facility] Stop: 04/04/19 08:59 Last Admin: 03/16/19 09:40 Dose: 60 mg Documented by: Ferrous Sulfate (Feosol) 325 mg PO BIDM [facility] Stop: 04/06/19 07:59 Last Admin: 03/16/19 09:39 Dose: 325 mg Documented by: Folic Acid (Folvite) 1 mg PO QAM [facility] Stop: 04/04/19 08:59 Last Admin: 03/16/19 09:39 Dose: 1 mg Documented by: Gabapentin (Neurontin) 300 mg PO TID [facility] Stop: 04/03/19 20:59 Last Admin: 03/16/19 13:31 Dose: 300 mg Documented by: Hydromorphone HCl (Dilaudid) 0.5 mg IV Q3H PRN PRN Reason: Pain Stop: 03/18/19 20:28 Last Admin: 03/16/19 06:47 Dose: 0.5 mg Documented by: Promethazine HCl 12.5 mg/ (Sodium Chloride) 50.5 mls @ 202 mls/hr IV Q6H PRN PRN Reason: Nausea And Vomiting Stop: 04/07/19 08:50 Last Infusion: 03/08/19 19:57 Dose: Infused Documented by: Lorazepam (Ativan) 0.5 mg in 1 mls @ 0.5 mls/min IV Q6H PRN PRN Reason: Anxiety Stop: 04/10/19 09:57 Last Admin: 03/12/19 23:58 Dose: 0.5 mls/min Documented by: Ertapenem 1,000 mg/ Sodium (Chloride) 60 mls @ 100 mls/hr IV Q24H [facility]; Protocol Stop: 03/26/19 09:59 Last Infusion: 03/16/19 12:12 Dose: Infused Documented by: Menthol (Nice) 1 ramiro BUCCAL PRN PRN PRN Reason: Cough Stop: 04/11/19 22:38 Multivitamins (Multivitamin Tab) 1 tab PO [facility] Stop: 04/04/19 08:59 Last Admin: 03/16/19 09:40 Dose: 1 tab Documented by: Ondansetron HCl (Zofran) 4 mg IV Q6H PRN PRN Reason: Nausea Stop: 04/03/19 20:28 Last Admin: 03/14/19 21:07 Dose: 4 mg Documented by: Oxycodone HCl (Roxicodone Immediate Rel) 5 mg PO Q6H PRN PRN Reason: Pain Stop: 03/27/19 08:57 Last Admin: 03/16/19 10:54 Dose: 5 mg Documented by: Pantoprazole Sodium (Protonix) 40 mg PO BID [facility] Stop: 04/05/19 20:59 Last Admin: 03/16/19 09:40 Dose: 40 mg Documented by: Phenol (Chloraseptic 1.4% Jackson) 2 sprays MT Q2H PRN PRN Reason: Sore Throat Stop: 04/09/19 20:05 Last Admin: 03/10/19 21:07 Dose: 2 sprays Documented by: Thiamine HCl (Vitamin B-1) 100 mg PO [facility] Stop: 04/05/19 03:23 Last Admin: 03/16/19 09:39 Dose: 100 mg Documented by: CPT Code CPT Code 57656
[2019-03-17] MEDS: OXYCODONE HCL IR 5 MG TAB (IMMEDIATE RELEASE) PO PRN ×3 (03:36→21:53)
[2019-03-17 07:42] LABS: Hematocrit (blood only) 28.2 % (37-47); Hemoglobin 9.1 g/dL (12.0-16.0); Mean Corpuscular Hgb Conc 32.3 g/dL (32-36); Mean Corpuscular Volume 87.3 fL (80-100); Mean Platelet Volume 8.6 fL (7.4-10.4); Platelet Count 486 K/uL (130-400); RDW Standard Deviation 54.4 fL (36.4-46.3); Red Blood Count 3.23 M/uL (4.2-5.4); White Blood Count 9.02 K/uL (4.8-10.8)
[2019-03-17] MEDS: HYDROmorphone INJ 0.5 MG/0.5 ML SYR IV PRN ×2 (07:46→18:06)
[2019-03-17 08:21] LABS: Calcium 8.8 mg/dl (8.5-10.1); Creatinine Clr Calc Pharmacy 71.7 ml/min; Est GFR (African American) 90.7; Est GFR (Non-African American) 78.2; Potassium 3.7 mmol/L (3.5-5.1)
[2019-03-17] MEDS ORDERED: chlordiazePOXIDE HCl 25 MG CAP PO SCH (09:00)
[2019-03-17] MEDS: FERROUS SULFATE 325 MG TAB PO SCH ×2 (09:12→17:11)
[2019-03-17] MEDS: ASPIRIN 81 MG ECTAB PO SCH ×2 (09:12→21:41)
[2019-03-17] MEDS: PANCREAZE (LIPASE 4,200U) CAP PO SCH ×3 (09:13→17:11)
[2019-03-17] MEDS: FOLIC ACID 1 MG TAB PO SCH (09:13)
[2019-03-17] MEDS: DULOXETINE HCL 60 MG CAP PO SCH (09:13)
[2019-03-17] MEDS: MULTIVITAMIN TAB PO SCH (09:14)
[2019-03-17] MEDS: PANTOprazole 40 MG TAB PO SCH ×2 (09:14→21:41)
[2019-03-17] MEDS: GABAPENTIN 300 MG CAP PO SCH ×3 (09:14→21:40)
[2019-03-17] MEDS: THIAMINE HCL 100 MG TAB PO SCH (09:14)
[2019-03-17] MEDS: ERTAPENEM SODIUM 1,000 MG in SODIUM CHLORIDE 0.9% 50 ML IV SCH (11:02)
[2019-03-17] MEDS: BETAMETHASONE VAL 0.1% CR 15 GM EXT SCH ×2 (11:07→21:40)
[2019-03-17] MEDS: BACLOFEN 10 MG TAB PO PRN (12:14)
--- NOTE | 2019-03-17 12:44 | Orthopedic Progress Note ---
Date of Service March 17, 2019 Assessment & Plan (1) Bimalleolar ankle fracture: POD#13 Ankle irrigation and debridement, External Fixator Application(Left) bimalleolar ankle fracture, repair 12 cm laceration -Pain management -PT/OT- NWB LLE -DVT prophylaxis-SCDs, Aspirin 81mg BID -elevation -Continue wound care per Wound Care Team -Continue IV antibx. POD #3 s/p repeat I & D left ankle, application wound vac. --Follow Culture results. Antibx as per ID/Med team Repeat US neg for DVT Pt now questioning why she needs to go to [facility] rehab. Feels she is getting around well and could do all of her daily ADL's herself etc. Will have to discuss with PT/OT and Med service. No further surgery needed at this time. Will need to continue daily dressing changes and follow up with wound care regularly. Plan for f/u with Dr Erickson next week. Dr Patrick to see patient later today. Subjective Pt sitting up in bed at the bedside. No new complaints. Pain controlled. Denies SOB,CP,LH. Stating she would rather not go to rehab facility. Feels she is doing well enough to go home and receive IV antibx, services for dressing changes/wound checks. Physical Exam Physical Exam: Dressings C/D/I. No overt erythema noted of the foot and proximal to the ankle. No overt erythema around pin sites. Wound images noted from this AM done by Wound Care nursing. Wound vac removed and left off due to skin maceration. Wound cleansed and redressed at that time. Wound area looks better overall. No overt pururlence. Obvious skin loss from I&D that was needed. Skin blister that was distal to the incision was removed. Results & Data Vital Signs (Past 12 Hours) Vital Signs Temp Pulse Resp BP Pulse Ox 03/17/19 07:53 36.4 C L 94 H 18 103/72 96 Laboratory Results [address] [place] [address] / Director: Riki Norwood M.D. Clinical Laboratory Report Name: NANCY CORREA Acct: [id number] Status: ADM IN : 1965 [facility] Date: 03/04/19 Age: 53 Sex: F Dis Date: Loc: Medical/Surgical/Ortho [address] [place] [address]/Bed: N378-2 Spec: [id number] Collected: 03/14/19 Received: 03/14/19-[address]: Artemio Gonsales MD Copy To: Brenden Mayo MD Covaleski, Thomas E., MD Tussey, Natalie B., MD Barter, Bradley A., D.O. Pell, Melissa C., MD Self, Referred Yolanda Conley MD Source: Ankle,Left OV Order: Ordered: Aer/Dahiana Cult/Sm Comments: Reason for Exam Surgical Procedure Comment Microbiology #1& #2- Left ankle culture Procedure Result Verified Site Gram Stain Final 03/15/19 Gram Stain Result Moderate WBCs Seen No Organisms Seen Aero/Dahiana Cult Preliminary 03/17/19-899 Organism 1 Enterobacter cloacae Quantity Few Sens Sensitivities to Follow +MixWound Plus Low Counts of Probable Skin Yasmin Organism 2 Klebsiella oxytoca ESBL Quantity Few Sens Sensitivities to Follow Sensitivity results indicate an organism with an Extended Spectrum Beta Lactamase. This is considered a Multidrug Resistant Organism. Phoned to PHAN Laurent on 03/16/19 at 0920 by Alba Workman. Results were verbalized back. E cloacae ESBL K oxy RX M.I.C. RX [facility].I[facility]C. --- --------- --- --------- Amikacin S <=16 S <=16 Ampicillin R >16 Amp/Sul R >16/8 Cefazolin R >16 Cefepime S <=4 R >16 Cefotaxime S <=2 R >32 Cefoxitin S <=8 Ceftriaxone S <=1 R >32 Cefuroxime R >16 Ciprofloxacin S <=1 S <=1 Ertapenem S <=1 S <=1 Gentamicin S <=4 S <=4 Imipenem S <=1 S <=1 Levofloxacin S <=2 S <=2 Tobramycin S <=4 S <=4 Trimeth/Sulfa S <=2/38 S <=2/38 Pip/Tazo S <=16 R >64 S = SENSITIVE I = INTERMEDIATE R = RESISTANT me: NANCY CORREA Acct: [id number] Status: ADM IN : 1965 [facility] Date: 03/04/19 Age: 53 Sex: F Dis Date: Loc: Medical/Surgical/Ortho [address] [place] [address] Rm/Bed: N378-2 Spec: [id number] Collected: 03/11/19 Received: 03/11/[address]: Shivam Talbert, PADeirdreC Copy To: Brenden Mayo MD Covaleski, Thomas E., Becca Kaiser, MD Erickson, Cherelle Clark Melissa C., Self, Yolanda Gonzalez MD Source: Ankle,Left OV Order: Ordered: Surf Wnd Cul/Sm Comments: Reason for Exam PURULENT DRAINAGE Procedure Result Verified Site Gram Stain Final 03/12/19075 Gram Stain Result Many WBCs Seen No Organisms Seen Surface Wound Culture Final 03/13/19-1236 Organism 1 Klebsiella oxytoca Quantity Few Sens Sensitivities to Follow +MixWound Plus Low Counts of Probable Skin Yasmin Organism 2 Enterobacter cloacae Quantity Few Sens Sensitivities to Follow Kleb oxyto E cloacae RX M.I.C. RX M.I.C. --- --------- --- --------- Amikacin S <=16 S <=16 Amp/Sul I 16/8 Cefazolin R >16 Cefepime S <=4 S <=4 Cefotaxime S <=2 I 32 Cefoxitin S <=8 Ceftriaxone S <=1 R 32 Cefuroxime S <=4 Ciprofloxacin S <=1 S <=1 Ertapenem S <=1 S <=1 Gentamicin S <=4 S <=4 Imipenem S <=1 S <=1 Levofloxacin S <=2 S <=2 Tobramycin S <=4 S <=4 Trimeth/Sulfa S <=2/38 S <=2/38 Pip/Tazo S <=16 S <=16 S = SENSITIVE I = INTERMEDIATE R = RESISTANT (1) Bimalleolar ankle fracture Encounter type: initial encounter Fracture type: open Laterality: left Open fracture type: open type III Qualified Code(s): S82.842C - Displaced bimalleolar fracture of left lower leg, initial encounter for open fracture type IIIA, IIIB, or IIIC
[2019-03-17] MEDS: DULOXETINE HCL 30 MG CAP PO SCH (13:31)
--- NOTE | 2019-03-17 16:23 | Hospitalist Progress Note ---
Date of Service March 17, 2019 Assessment & Plan (1) Bimalleolar ankle fracture: - S/P fall at home; S/P L I&D, external fixator application for bimalleolar ankle fx and repair of 12 cm laceration on 03/04 and now S/P I&D on 03/14 - Initial cx with klebsiella oxytoca and enterobacter cloacae with cx from 02/11 with klebsiella oxytoca and a ESBL Klebsiella oxytoca; BCx NGTD - Continues with LLE edema - doppler neg for DVT - Convert Cefepime to Ertapenem given MDR Klebsiella - will ultimately need PICC and approx. 4 weeks ABx as discussed with ID - DVT prophylaxis: ASA 81 mg BID - Pain control - NWB on LLE - planning on rehab possibly at [facility] vs home with services -- Insurance policy requires daily nurse visits which may not be possible due to staffing of agencies, may need rehab vs SNF for medication abilities - Orthopedics following - appreciate input and surgical management - discussed with Shivam Talbert - currently no plans for further surgical intervention until improvement with skin pending assessment tomorrow, when skin improves will have further intervention (2) SBO (small bowel obstruction): - CT with SBO with transition point in mid pelvis - likely secondary to adhesions - NGT removed 03/12; SBO now resolved and tolerating diet - If ongoing issues could have GI evaluation with EGD/EUS/Colonoscopy as outpatient; family mentioned possible element of bulimia nervosa - Gen Surg consulted - appreciate input - did S/O at this time (3) Metabolic alkalosis: - Related to severe nausea/vomiting; now completely resolved. (4) Anemia: - STABLE - Iron studies support FAYE; likely though multifactorial given ETOH use - Continue folic acid, thiamine and ferrous sulfate. (5) Alcohol use: - 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; reports she is an occasional drinker - No signs of active withdrawal at this time; Ativan PRN; Thiamine/Folic acid - Librium utilized and now discontinued - monitor for any rebound issues while now off this medication (6) Depression: - Continue Cymbalta 60 mg daily; additional dose of 30 mg added; Vistaril PRN - Discussed concerns with her mother today - there has been difficulty finding a good therapist/psychiatrist the patient can continue with and mother feels that she really needs ETOH help -- Patient continue to decline ETOH rehab and this may be difficult to arrange at this time due to her medical issues however would definitely benefit from therapy/rehab/close follow-up (7) Chronic pancreatitis: - With pancreatic insufficiency; should have GI F/U as outpatient - could consider EGD/EUS - Continue pancreatic enzymes (8) Hydrosalpinx: - Noted on CT; F/U as outpatient (9) DVT prophylaxis: - Aspirin BID. Disposition: Pending wound assessment tomorrow likely will not need further surgical intervention at this time under wound heals; rehab vs SNF vs home - will need PICC line and close wound follow-up regardless of location. Could consider MTU for daily Abx but not convenient for family or patient; Given her ETOH abuse history disposition is difficult in general given the level of injury she sustained and the need for prolonged IV Abx Subjective Patient is more sleepy today. Does wake up to answer questions but then falls back asleep. States her leg is less spasm-like today. Patient gave permission to talk with mother yesterday and did call her today since I could not reach her yesterday. Updated on current plan. Discussed with orthopedics today in regards to their plan. Review of Systems Review of Systems: ROS limited due to sedation/sleepiness. Reports less spasm- like pain in the L thigh. Pain intermittent in foot but pain medication controlling. States her mood seems to fluctuate some. Physical Exam Constitutional: WD/WN, vitals as above Eyes: + anicteric sclerae Neck: trachea midline Respiratory: normal respiratory effort, lungs clear to auscultation Cardiovascular: Rate/Rhythm: regular rate and regular rhythm Heart Sounds: no murmur Extremities: + pedal edema (L) Gastrointestinal (Abdomen): Inspection/Auscultation: normal bowel sounds Percussion/Palpation: abdomen soft; abdomen nontender Musculoskeletal: Head/Neck/Chest: normocephalic and head atraumatic ex ternal fixator device on LLE Skin: no rashes, warm and dry (other than in MS section) Neurologic: moves all extremities Psychiatric: A+Ox3, euthymic affect Results & Data Vital Signs (Past 12 Hours) Vital Signs Temp Pulse Resp BP BP Pulse Ox 03/17/19 15:30 36.4 C L 105 H 18 111/78 100 03/17/19 07:53 36.4 C L 94 H 18 103/72 96 (1) Bimalleolar ankle fracture Encounter type: initial encounter Fracture type: open Laterality: left Open fracture type: open type III Qualified Code(s): S82.842C - Displaced bimalleolar fracture of left lower leg, initial encounter for open fracture type IIIA, IIIB, or IIIC
[2019-03-18] MEDS: HYDROmorphone INJ 0.5 MG/0.5 ML SYR IV PRN ×3 (00:10→19:09)
[2019-03-18] MEDS: OXYCODONE HCL IR 5 MG TAB (IMMEDIATE RELEASE) PO PRN ×3 (07:05→22:30)
[2019-03-18] MEDS: PANCREAZE (LIPASE 4,200U) CAP PO SCH ×3 (08:50→16:56)
[2019-03-18] MEDS: FERROUS SULFATE 325 MG TAB PO SCH ×2 (08:51→16:55)
[2019-03-18] MEDS: ASPIRIN 81 MG ECTAB PO SCH ×2 (08:52→20:50)
[2019-03-18] MEDS: DULOXETINE HCL 60 MG CAP PO SCH (08:52)
[2019-03-18] MEDS: GABAPENTIN 300 MG CAP PO SCH ×3 (08:53→20:50)
[2019-03-18] MEDS: BETAMETHASONE VAL 0.1% CR 15 GM EXT SCH ×2 (08:53→20:51)
[2019-03-18] MEDS: MULTIVITAMIN TAB PO SCH (08:53)
[2019-03-18] MEDS: PANTOprazole 40 MG TAB PO SCH ×2 (08:53→20:49)
[2019-03-18] MEDS: FOLIC ACID 1 MG TAB PO SCH (08:53)
[2019-03-18] MEDS: THIAMINE HCL 100 MG TAB PO SCH (08:54)
[2019-03-18] MEDS: ERTAPENEM SODIUM 1,000 MG in SODIUM CHLORIDE 0.9% 50 ML IV SCH (10:19)
[2019-03-18] MEDS: DULOXETINE HCL 30 MG CAP PO SCH (13:18)
--- NOTE | 2019-03-18 13:19 | Orthopedic Progress Note ---
Date of Service March 18, 2019 Assessment & Plan (1) Bimalleolar ankle fracture: POD#14 Ankle irrigation and debridement, External Fixator Application(Left) bimalleolar ankle fracture, repair 12 cm laceration -Pain management -PT/OT- NWB LLE -DVT prophylaxis-SCDs, Aspirin 81mg BID -elevation -Continue wound care per Wound Care Team -Continue IV antibx. POD #4 s/p repeat I & D left ankle, application wound vac. --Follow Culture results. Antibx as per ID/Med team Will discuss with Dr Erickson/Feliberto. Question need for second I&D of the ankle wound. Repeat US neg for DVT Pt now questioning why she needs to go to [facility]. Feels she is getting around well and could do all of her daily ADL's herself etc. Will have to discuss with PT/OT and Med service. No further surgery needed at this time. Will need to continue daily dressing changes and follow up with wound care reg ularly. Plan for f/u with Dr Erickson next week. Dr Patrick to see patient later today. Subjective Pt lying in bed awake, alert. No overt complaints. Wound Care Team present to do dressing change. Physical Exam Physical Exam: Dressings taken down. Noted by WC team that there was a fair amount of drainage noted. Noted area that was debrided with some yellow slough in areas. Area along the original suture line now with increased swelling and softness/drainage and small amount of purulence. Erythema noted aournd the portion of the open wound. Continues with foot swelling but seems less tender. Results & Data Vital Signs (Past 12 Hours) Vital Signs Temp Pulse Resp BP Pulse Ox 03/18/19 08:05 36.6 C 92 H 16 116/82 96 (1) Bimalleolar ankle fracture Encounter type: initial encounter Fracture type: open Laterality: left Open fracture type: open type III Qualified Code(s): S82.842C - Displaced bimalleolar fracture of left lower leg, initial encounter for open fracture type IIIA, IIIB, or IIIC
--- NOTE | 2019-03-18 17:38 | Hospitalist Progress Note ---
Date of Service March 18, 2019 Assessment & Plan (1) Bimalleolar ankle fracture: - S/P fall at home; S/P L I&D, external fixator application for bimalleolar ankle fx and repair of 12 cm laceration on 03/04 and now S/P I&D on 03/14; now may require additional washout - Initial cx with klebsiella oxytoca and enterobacter cloacae with cx from 02/11 with klebsiella oxytoca and a ESBL Klebsiella oxytoca; BCx NGTD - Continues with LLE edema - doppler neg for DVT - Continue Ertapenem given MDR Klebsiella - will ultimately need PICC and approx. 4 weeks ABx as discussed with ID (approx. April 13) - DVT prophylaxis: ASA 81 mg BID - Pain control - NWB on LLE - Orthopedics following - appreciate input and surgical management - discussed with Shivam Talbert - possible further washout and placed NPO at midnight (2) SBO (small bowel obstruction): - CT with SBO with transition point in mid pelvis - likely secondary to adhesions - NGT removed 03/12; SBO resolved and tolerating diet - If ongoing issues could have GI evaluation with EGD/EUS/Colonoscopy as outpa tient; family mentioned possible element of bulimia nervosa - Gen Surg consulted - appreciate input - did S/O at this time (3) Anemia: - STABLE - Iron studies support FAYE; likely though multifactorial given ETOH use - Continue folic acid, thiamine and ferrous sulfate. (4) Alcohol use: - 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; reports she is an occasional drinker - No signs of active withdrawal at this time; Ativan PRN; Thiamine/Folic acid - Librium utilized and now discontinued - monitor for any rebound issues while now off this medication (5) Depression: - Continue Cymbalta 60 mg daily; additional dose of 30 mg added; Vistaril PRN - Discussed concerns with her mother on 03/17 - there has been difficulty finding a good therapist/psychiatrist the patient can continue with and mother feels that she really needs ETOH help -- Patient continue to decline ETOH rehab and this may be difficult to arrange at this time due to her medical issues however would definitely benefit from therapy/rehab/close follow-up - Psychiatry provided patient with list of outpatient providers (6) Pancreatic insufficiency: - Pancreatic enzyme replacement. - Will need GI work up as outpatient. (7) Chronic pancreatitis: - With pancreatic insufficiency; should have GI F/U as outpatient - could consider EGD/EUS - Continue pancreatic enzymes (8) Hydrosalpinx: - Noted on CT; F/U as outpatient (9) DVT prophylaxis: - Aspirin BID. Disposition: Possible repeat washout maybe tomorrow - will need PICC line and close wound follow-up - likely will need SNF for treatment -- Could consider MTU for daily Abx but not convenient for family or patient; Given her ETOH abuse history disposition is difficult in general given the level of injury she sustained and the need for prolonged IV Abx Subjective Reports doing well but intermittent pain in the foot. States the oral medication doesn't work as well as the IV medications and may need to make adjustments to the orals to maximize pain to reduce IV medication. Given her ETOH use/addiction will need to monitor overuse of medications. Reports she does want to go to rehab and understands the likely long road ahead. Possible will need washout again. Review of Systems Constitutional: no fever and no chills Respiratory: no cough and no dyspnea Cardiovascular: no chest pain and no palpitations Gastrointestinal: no abdominal pain, no nausea, no vomiting, no constipation and no diarrhea/loose stools Genitourinary: no dysuria Musculoskeletal: + joint pain (L ankle/foot) and + swelling (LLE) + spasm- like pain in L thigh Integumentary: continued wound due to open fracture Physical Exam Constitutional: WD/WN, vitals as above Eyes: + anicteric sclerae Neck: trachea midline Respiratory: normal respiratory effort, lungs clear to auscultation Cardiovascular: Rate/Rhythm: regular rate and regular rhythm Heart Sounds: no murmur Extremities: + pedal edema (L) Gastrointestinal (Abdomen): Inspection/Auscultation: normal bowel sounds Percussion/Palpation: abdomen soft; abdomen nontender Musculoskeletal: Head/Neck/Chest: normocephalic and head atraumatic open fracture site with [address] at approximated aspect of laceration; visible vein in opened area of incision without bleeding; no necrosis but yellow sloughing Skin: no rashes, warm and dry (other than in MS section) Neurologic: moves all extremities Psychiatric: A+Ox3, euthymic affect Results & Data Vital Signs (Past 12 Hours) Vital Signs Temp Pulse Resp BP BP Pulse Ox 03/18/19 15:29 36.7 C 96 H 19 127/83 95 03/18/19 08:05 36.6 C 92 H 16 116/82 96 PG Care Time/CCT Total # of Minutes Spent Total Time Spent with Patient: Total time spent is greater than 50% in coordination of care (as documented) at patient's floor/unit and/or counseling patient: (1) Bimalleolar ankle fracture Encounter type: initial encounter Fracture type: open Laterality: left Open fracture type: open type III Qualified Code(s): S82.842C - Displaced bimalleolar fracture of left lower leg, initial encounter for open fracture type IIIA, IIIB, or IIIC
[2019-03-19] MEDS: MoRPHine SULFATE 4 MG/ML 1 ML CARP\\VIAL IV PRN (02:00)
[2019-03-19] MEDS: OXYCODONE HCL IR 5 MG TAB (IMMEDIATE RELEASE) PO PRN ×3 (06:45→23:42)
[2019-03-19] MEDS: DULOXETINE HCL 60 MG CAP PO SCH (07:40)
[2019-03-19] MEDS: FOLIC ACID 1 MG TAB PO SCH (07:40)
[2019-03-19] MEDS: FERROUS SULFATE 325 MG TAB PO SCH ×2 (07:40→18:16)
[2019-03-19] MEDS: PANCREAZE (LIPASE 4,200U) CAP PO SCH ×3 (07:40→17:18)
[2019-03-19] MEDS: ASPIRIN 81 MG ECTAB PO SCH ×2 (07:40→20:49)
[2019-03-19] MEDS: MULTIVITAMIN TAB PO SCH (07:41)
[2019-03-19] MEDS: GABAPENTIN 300 MG CAP PO SCH ×3 (07:41→20:49)
[2019-03-19] MEDS: PANTOprazole 40 MG TAB PO SCH ×2 (07:41→20:48)
[2019-03-19] MEDS: THIAMINE HCL 100 MG TAB PO SCH (07:42)
[2019-03-19] MEDS: BETAMETHASONE VAL 0.1% CR 15 GM EXT SCH ×2 (07:42→20:48)
[2019-03-19] MEDS: ERTAPENEM SODIUM 1,000 MG in SODIUM CHLORIDE 0.9% 50 ML IV SCH (10:59)
--- NOTE | 2019-03-19 12:08 | History & Physical Bridge Note ---
Date of Service March 19, 2019 History & Physical Bridge Note I have examined the patient, reviewed the History & Physical and in the interval since the performance of the History & Physical I have noted the following changes of clinical significance: no changes noted
--- NOTE | 2019-03-19 13:24 | Anesthesiology Consultation ---
Date of Service March 19, 2019 Assessment & Plan Chart Review Chart Review: Acceptable Risk for Surgery and Patient NOT seen in Pre Admission Testing Consults Requested none ASA ASA4 Proposed Anesthesia Anesthesia Type: General Risk / Benefits Reviewed With: PT / POA / Parent / Guardian, Accepts Plan and Informed Consent Obtained History Surgery Operation Date: 03/04/19 14:40 Proposed Procedures p Left Ankle Incision and Drainage, Exfix Application - Riki Dao MD s External Fixator Application - Riki Dao MD Operation Date: 03/13/19 10:00 Proposed Procedures p Incision and Drainage Left Ankle(Left) - Farhan Erickson DO Operation Date: 03/14/19 10:00 Proposed Procedures p Incision and Drainage Left Ankle(Left) - Farhan Erickson DO Operation Date: 03/19/19 14:10 Proposed Procedures p Repeat Incision and Drainage of Left Ankle Wound - Riki Dao MD Height/Weight Height: 5 ft 6 in Weight: 64 kg Allergies Allergy/AdvReac Type Severity Reaction Status Date / Time No Known Allergies Allergy Verified 03/04/19 14:51 Medications Home Medications Medication Instructions Recorded Confirmed Last Taken duloxetine [Cymbalta] 60 mg PO QAM 08/13/18 03/04/19 03/04/19 folic acid 1 mg PO QAM 08/13/18 03/04/19 03/03/19 gabapentin 300 mg PO TID 08/13/18 03/04/19 03/03/19 hydroxyzine pamoate [Vistaril] 50 mg PO BID PRN 08/13/18 03/04/19 Unknown vitamin B complex 1 tab PO QAM 08/13/18 03/04/19 03/03/19 ascorbic acid (vitamin C) [Vitamin 100 mg PO QAM 02/22/19 03/04/19 03/03/19 C] cholecalciferol (vitamin D3) 5,000 unit PO QAM 02/22/19 03/04/19 03/03/19 [Vitamin D3] cyanocobalamin (vitamin B-12) 1,000 mcg PO QAM 02/22/19 03/04/19 03/03/19 [Vitamin B-12] duloxetine 20 mg PO DAILY 02/22/19 03/04/19 03/03/19 ergocalciferol (vitamin D2) 50,000 unit PO WK 02/22/19 03/04/19 02/26/19 [Vitamin D2] [id number] [Creon] 1 cap PO TIDM 02/22/19 03/04/19 03/03/19 naproxen sodium 220 mg tablet PO tab 03/16/19 03/16/19 Unknown Active Medications Generic Name Dose Route Start Last Admin Trade Name Freq PRN Reason Stop Dose Admin Lipase/Protease/Amylase 1 cap 03/04/19 21:00 03/19/19 10:58 Pancreaze (Lipase 4200u) PO 04/03/19 20:59 Not Given AC ARPIT Aspirin 81 mg 03/05/19 09:00 03/19/19 07:40 Ecotrin Ectab PO 04/04/19 08:59 81 mg BID ARPIT Administration Baclofen 10 mg 03/16/19 13:53 03/17/19 12:14 Lioresal PO 04/15/19 13:59 10 mg TID PRN Administration Muscle Spasm Betamethasone Valerate 1 appln 03/10/19 21:00 03/19/19 07:42 Valisone 0.1% EXT 03/20/19 20:59 Not Given BID ARPIT Calcium Carbonate 1,000 mg 03/06/19 13:45 03/15/19 04:02 Tums PO 04/05/19 13:44 1,000 mg Q6H PRN Administration Indigestion Duloxetine HCl 60 mg 03/05/19 09:00 03/19/19 07:40 Cymbalta PO 04/04/19 08:59 60 mg QAM ARPIT Administration Duloxetine HCl 30 mg 03/17/19 14:00 03/18/19 13:18 Cymbalta PO 04/16/19 13:59 30 mg DAILY@1400 ARPIT Administration Ferrous Sulfate 325 mg 03/07/19 08:00 03/19/19 07:40 Feosol PO 04/06/19 07:59 Not Given BIDM ARPIT Folic Acid 1 mg 03/05/19 09:00 03/19/19 07:40 Folvite PO 04/04/19 08:59 1 mg QAM ARPIT Administration Gabapentin 300 mg 03/04/19 21:00 03/19/19 07:41 Neurontin PO 04/03/19 20:59 300 mg TID ARPIT Administration Promethazine HCl 12.5 mg/ 50.5 mls @ 202 mls/hr 03/08/19 08:51 03/08/19 19:57 Sodium Chloride IV 04/07/19 08:50 Infused Q6H PRN Infusion Nausea And Vomiting Lorazepam 0.5 mg in 1 mls @ 0.5 mls/min 03/11/19 09:58 03/12/19 23:58 Ativan IV 04/10/19 09:57 0.5 mls/min Q6H PRN Administration Anxiety Ertapenem 1,000 mg/ Sodium 60 mls @ 100 mls/hr 03/16/19 10:00 03/19/19 11:37 Chloride IV 03/26/19 09:59 Infused Q24H ARPIT Infusion Protocol Morphine Sulfate 4 mg 03/19/19 00:20 03/19/19 02:00 Morphine Sulfate IV 04/02/19 00:19 4 mg Q3H PRN Administration Pain Multivitamins 1 tab 03/05/19 09:00 03/19/19 07:41 Multivitamin Tab PO 04/04/19 08:59 1 tab QAM ARPIT Administration Ondansetron HCl 4 mg 03/04/19 20:29 03/14/19 21:07 Zofran IV 04/03/19 20:28 4 mg Q6H PRN Administration Nausea Oxycodone HCl 5 - 10 mg 03/18/19 15:26 03/19/19 06:45 Roxicodone Immediate Rel PO 03/27/19 08:57 10 mg Q6H PRN Administration Pain Pantoprazole Sodium 40 mg 03/06/19 21:00 03/19/19 07:41 Protonix PO 04/05/19 20:59 40 mg BID ARPIT Administration Phenol 2 sprays 03/10/19 20:06 03/10/19 21:07 Chloraseptic 1.4% [place] 04/09/19 20:05 2 sprays Q2H PRN Administration Sore Throat Thiamine HCl 100 mg 03/06/19 03:24 03/19/19 07:42 Vitamin B-1 PO 04/05/19 03:23 100 mg QAM ARPIT Administration NPO Date Last Intake of Fluids: 03/18/19 Time Last Intake of Fluids: 23:00 Last Intake of Fluids Comment: sips of water with pills this am Date Last Intake of Solids: 03/18/19 Time Last Intake of Solids: 23:00 Past Medical History Medical History Abnormal TSH (Acute) Deformity of both feet (Acute) Depression with anxiety (Acute) Dizziness (Acute) Encephalomalacia (Acute) Exocrine pancreatic insufficiency (Acute) IPMN (intraductal papillary mucinous neoplasm) (Acute) Insomnia (Acute) Lipoma (Acute) Liver cirrhosis, alcoholic (Acute) Loose bowel movement (Acute) Peripheral neuropathy (Acute) Psoriasis (Acute) Secondary diabetes mellitus (Acute) Vitamin D deficiency (Acute) Hydrosalpinx Chronic pancreatitis (Chronic) SBO (small bowel obstruction) (Resolved) Resolving Bimalleolar ankle fracture (Acute) Anxiety (Chronic) HAS UPCOMING LALA WITH PSYCH Chronic pancreatitis (Chronic) Cirrhosis of liver (Chronic) "COMPROMISED LIVER" Depression (Chronic) HAS UPCOMING LALA WITH PSYCH Diabetes mellitus (Chronic) TYPE 2 "SECONDARY" History of alcohol consumption (Chronic) Neuropathy (Chronic) OF FEET Nicotine dependence (Chronic) Pancreatic insufficiency (Chronic) Polycystic ovarian syndrome (Chronic) Alcohol withdrawal seizure (Resolved) NOT REPORTED BY PATIENT AT TIME OF PAT CALL - NOTED IN EMR PREVIOUSLY Abnormal TSH Abnormal blood sugar A1C LEVELS FLUCTUATE Bowel habit changes STARTED 1 YR AGO/LOOSE STOOLS AFTER EATING History of dizziness 2 WEEKS AGO, DIZZINESS AND NAUSEA, DENIES FEVER - HAS FULLY RESOLVED/EDU PROVIDED History of fracture TAILBONE - FLARES UP WITH WEATHER CHANGES IPMN (intraductal papillary mucinous neoplasm) Insomnia Lipoma Vitamin D deficiency Exercise / Class Metabolic Activity IV < 2 Limit ADL/Bedbound Past Family History Family History Other Family history of breast cancer in mother Family history of breast cancer in sister Past Surgical History Surgical History History of ankle surgery 02/2019 left ankle ex fix, grade 2 view with MAC 3 and 7.0 ETT History of tooth extraction No family history of adverse response to anesthesia Past Anesthesia History No Hx of Anesthesia Complications and No Family Hx of Anesthesia Complications History of PONV No Hx of PONV and No Hx of Motion Sickness Social History Smoking Status: Current every day smoker tobacco type: cigarettes Smoking cigarettes per day: 1PPD - ADVISED NPO Do You Dip or Chew Tobacco: No Hx Alcohol Use: Yes Alcohol type: wine alcohol intake frequency: other Alcohol Intake Frequency Comment: binge drinker Hx Substance Use: No substance use type: does not use Physical Exam Vital Signs Last Vital Signs Temp 36.6 C 03/19/19 11:55 Pulse 88 03/19/19 11:55 Resp 20 03/19/19 11:55 BP 121/82 03/19/19 11:55 Pulse Ox 94 03/19/19 11:55 Constitutional not obese ENMT Mouth: + poor dentition Thyromental Distance: > or= 3.5 Finger Breadths Mallampati Class: II Neck normal visual inspection and trachea midline; neck extension not limited Respiratory normal respiratory effort Auscultation: lungs clear to auscultation bilaterally Cardiovascular Rate/Rhythm: regular rate and regular rhythm Heart Sounds: no murmur Vessels: no carotid bruit Musculoskeletal Spine: normal cervical ROM Neurologic moves all extremities Motor/Sensory: no sensory deficit Psychiatric Orientation: alert and oriented x 3 Testing Laboratory Results 03/17/19 07:23 03/17/19 07:23 03/14/19 11:04 Gram Stain - Final Ankle,Left Aerobic and Anaerobic Culture - Final Klebsiella oxytoca 03/14/19 10:45 Gram Stain - Final Ankle,Left Aerobic and Anaerobic Culture - Preliminary Enterobacter cloacae Klebsiella oxytoca ESBL 03/11/19 14:10 Gram Stain - Final Ankle,Left Wound Culture - Final Klebsiella oxytoca Enterobacter cloacae 03/07/19 10:09 Aerobic Blood Culture - Final Blood No growth in Aerobic bottle after 5 days. Anaerobic Blood Culture - Final No growth in Anaerobic bottle after 5 days. 03/07/19 10:40 Aerobic Blood Culture - Final Blood No growth in Aerobic bottle after 5 days. Anaerobic Blood Culture - Final No growth in Anaerobic bottle after 5 days. Electrocardiogram Date: 03/08/19 Findings: + ST @ (107)
--- NOTE | 2019-03-19 13:36 | Hospitalist Progress Note ---
Date of Service March 19, 2019 Assessment & Plan (1) Bimalleolar ankle fracture: - S/P fall at home; S/P L I&D, external fixator application for bimalleolar ankle fx and repair of 12 cm laceration on 03/04 and now S/P I&D on 03/14; possibly addition washout on 03/19 - Initial cx with klebsiella oxytoca and enterobacter cloacae with cx from 02/11 with klebsiella oxytoca and a ESBL Klebsiella oxytoca; BCx NGTD - Continues with LLE edema - doppler neg for DVT - Continue Ertapenem given MDR Klebsiella - will ultimately need PICC and approx. 4 weeks ABx as discussed with ID (approx. April 13) - DVT prophylaxis: ASA 81 mg BID - Pain control - NWB on LLE - Orthopedics following - appreciate input and surgical management (2) SBO (small bowel obstruction): - CT with SBO with transition point in mid pelvis - likely secondary to adhesions - NGT removed 03/12; SBO resolved and tolerating diet - If ongoing issues could have GI evaluation with EGD/EUS/Colonoscopy as outpatient; family mentioned possible element of bulimia nervosa - Gen Surg consulted - appreciate input - did S/O (3) Anemia: - STABLE - Iron studies support FAYE; likely though multifactorial given ETOH use - Continue folic acid, thiamine and ferrous sulfate (4) Alcohol use: - 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; reports she is an occasional drinker - No signs of active withdrawal at this time; Ativan PRN; Thiamine/Folic acid - Librium utilized and now discontinued - monitor for any rebound issues while now off this medication (5) Depression: - Continue Cymbalta 60 mg daily; additional dose of 30 mg added; Vistaril PRN - Discussed concerns with her mother on 03/17 - there has been difficulty finding a good therapist/psychiatrist the patient can continue with and mother feels that she really needs ETOH help -- Patient continue to decline ETOH rehab and this may be difficult to arrange at this time due to her medical issues however would definitely benefit from therapy/rehab/close follow-up - Psychiatry provided patient with list of outpatient providers (6) Pancreatic insufficiency: - Pancreatic enzyme replacement. - Will need GI work up as outpatient. (7) Hydrosalpinx: - Noted on CT; F/U as outpatient (8) DVT prophylaxis: - Aspirin BID. Disposition: Possible repeat washout maybe today - will need PICC line and close wound follow-up - likely will need SNF for treatment -- Could consider [facility]U for daily Abx but not convenient for family or patient; Given her ETOH abuse history disposition is difficult in general given the level of injury she sustained and the need for prolonged IV Abx Subjective Patient for possible surgery today for washout of ankle/foot. Reports feeling fatigued due to NPO status. States she didn't eat in 2 days by choice? but now is hungry Reports ongoing pain in the foot. States she is nauseous from not having food but denies vomiting. Moving her bowels and passing flatus. Review of Systems Review of Systems: ROS limited due to sedation/sleepiness. Reports less spasm- like pain in the L thigh. Pain intermittent in foot but pain medication controlling. States her mood seems to fluctuate some. Constitutional: + fatigue; no fever and no chills Respiratory: no cough and no dyspnea Cardiovascular: no chest pain, no palpitations and no lightheadedness Gastrointestinal: + nausea; no abdominal pain, no vomiting, no constipation and no diarrhea/loose stools Genitourinary: no dysuria Musculoskeletal: + joint pain (L ankle/foot) and + swelling (LLE) Integumentary: continued wound due to open fracture - L foot Physical Exam Constitutional: WD/WN, vitals as above Eyes: + anicteric sclerae Neck: trachea midline Respiratory: normal respiratory effort, lungs clear to auscultation Cardiovascular: Rate/Rhythm: regular rate and regular rhythm Heart Sounds: no murmur Extremities: + pedal edema (L) Gastrointestinal (Abdomen): Inspection/Auscultation: normal bowel sounds Percussion/Palpation: abdomen soft; abdomen nontender Musculoskeletal: Head/Neck/Chest: normocephalic and head atraumatic dressing applied to L foot - reviewed wound photo from 03/19 with yellow slough present Skin: no rashes, warm and dry (other than in MS section) Neurologic: moves all extremities Psychiatric: A+Ox3, euthymic affect Results & Data Vital Signs (Past 12 Hours) Vital Signs Temp Pulse Pulse Resp BP BP Pulse Ox 03/19/19 11:55 36.6 C 88 20 121/82 94 03/19/19 07:44 36.7 C 100 H 16 102/71 98 PG Care Time/CCT Total # of Minutes Spent Total Time Spent with Patient: Total time spent is greater than 50% in coordination of care (as documented) at patient's floor/unit and/or counseling patient: (1) Bimalleolar ankle fracture Encounter type: initial encounter Fracture type: open Laterality: left Open fracture type: open type III Qualified Code(s): S82.842C - Displaced bimalleolar fracture of left lower leg, initial encounter for open fracture type IIIA, IIIB, or IIIC
[2019-03-19] MEDS: DULOXETINE HCL 30 MG CAP PO SCH (13:53)
[2019-03-19] MEDS ORDERED: ONDANSETRON INJ 2 MG/ML 2 ML VIAL IV PRN ×3 (14:46→16:57)
[2019-03-19] MEDS ORDERED: HYDROmorphone INJ 1 MG/ML SYRINGE IV PRN ×2 (14:46→16:01)
[2019-03-19] MEDS ORDERED: ATROPINE SULFATE 0.1 MG/ML 10ML SYR IV PRN ×2 (14:46→16:01)
[2019-03-19] MEDS ORDERED: PROMETHAZINE HCL 12.5 MG in SODIUM CHLORIDE 0.9% 50 ML IV PRN (14:46)
[2019-03-19] MEDS ORDERED: LABETALOL HCL IV 5 MG/ML 20ML IV PRN ×2 (14:46→16:01)
[2019-03-19] MEDS ORDERED: FLUMAZENIL 0.1 MG/1 ML 10 ML VIAL IV PRN (14:46)
[2019-03-19] MEDS ORDERED: NALOXONE HCL 0.4 MG/1 ML VIAL/CARP IV PRN (14:46)
[2019-03-19] MEDS: VANCOMYCIN HCL 1,000 MG/270 ML BAG IV SCH (14:46)
[2019-03-19] MEDS ORDERED: ePHEDrine sulfate 50 MG/ML AMP IV PRN (14:46)
[2019-03-19] MEDS ORDERED: BACITRACIN INJ 50,000 UNIT VIAL ONE (15:03)
[2019-03-19] MEDS ORDERED: VANCOMYCIN CONSULT ACTIVE PRN (15:18)
--- NOTE | 2019-03-19 15:46 | Operative Report ---
Post Operative Report Pre & Post Diagnosis Operation Date: 03/19/19 14:10 Pre-Op Diagnosis: infected left ankle wound Post-Op Diagnosis: infected left ankle wound Procedure Operation Date: 03/19/19 14:10 Actual Procedures p Repeat Incision and Drainage of Left Ankle Wound(Left) - Riki Dao MD Surgeon Riki Dao MD [employer] Sh[employer] PA-C Estimated Blood Loss 2 Findings Consistent with Post-Op Diagnosis Specimens Wound culture Drains None Anesthesia Type General Complications none Disposition Accompanied Patient To Recovery: No Disposition: Recovery Room Indications The patient is a 53-year-old female approximately 2 weeks ago sustained an open fracture dislocation of the left ankle. It is uncertain how long she was down before she was found. It is supposed it was at least 8 to 12 hours. At the time of her initial presentation she underwent irrigation treatment and external fixation placement. At the time of debridement there is found felt to be a dog hair in the wound. She suddenly developed worsening infection in the left ankle wound and she went underwent irrigation and debridement last weekend. She has grown resistant Klebsiella from her wound. Despite IV antibiotic treatment she has been having worsening of the wound. She presents for irrigation debridement once again. Description of Procedure Risks benefits and alternatives of surgery including but not limited to infection, DVT, pain, stiffness, need for revision surgery, damage to blood vessels damage to nerves or risks of anesthesia were discussed with the patient and she wished to proceed. Patient was identified in the laterality was confirmed and marked. A well-padded tourniquet was applied and then the limb was prepped and draped in standard manner with Betadine. The limb was exsanguinated and the tourniquet was inflated. We kept her in her external fixator. The wound appeared to be infected particularly distally. The previous suture material was removed. The region where previously had open injury a fair amount of her skin has sloughed off and . Some of the veins are visible including the saphenous vein. There was some purulent material on the more distal aspect of the wound that was sharply debrided down to the level of bone. The bone of the medial malleolus is exposed and periosteum is visible. The joint is exposed and visible as well. I used a knife to sharply debride some of the wound edges to establish a bleeding response. I sent some tissue for culture as well as a swab of the joint for culture. The wound was then thoroughly irrigated with 9 mL of saline with Pulsavac. The more anterior portion of the wound was closed once again with interrupted 2- 0 nylon but the vast majority of the wound was open and and Acticoat dressing was placed. Sterile dressings applied and the tourniquet was released. All needle and sponge counts were correct at the end of the procedure patient was transferred to the PACU in stable condition without apparent complication. The PA-C was necessary for assistance with procedure for assistance in positioning, prepping, draping, retraction and closure. I attest to the content of the Intraoperative Record and any orders documented therein. Any exceptions are noted below.
--- NOTE | 2019-03-19 16:39 | Anesthesiology Progress Note ---
Date of Service March 19, 2019 Anesthesia Post Procedure Vital Signs Vital Signs: Temp Pulse Pulse Pulse Resp BP BP 03/19/19 16:30 36.4 C L 94 H 20 116/85 03/19/19 16:20 96 H 16 140/96 03/19/19 16:10 95 H 24 133/102 H 03/19/19 16:00 89 17 118/99 03/19/19 15:50 89 17 135/92 03/19/19 15:40 89 17 131/89 03/19/19 15:36 36.2 C L 95 H 16 140/92 03/19/19 11:55 36.6 C 88 20 121/82 03/19/19 07:44 36.7 C 100 H 16 102/71 03/18/19 23:28 36.7 C 98 H 18 136/86 Pulse Ox 03/19/19 16:30 94 03/19/19 16:20 94 03/19/19 16:10 96 03/19/19 16:00 97 03/19/19 15:50 97 03/19/19 15:40 97 03/19/19 15:36 97 03/19/19 11:55 94 03/19/19 07:44 98 03/18/19 23:28 98 Pain Intensity Left Ankle: Pain Intensity: 3 Left Arm: Pain Intensity: 0 Left Leg: Pain Intensity: 6 Left Foot: Pain Intensity: 3 Transfer of Care Handoff Completed per policy Notes Mental Status: alert / awake / arousable Patient Amnestic to Procedure: Yes Nausea / Vomiting: adequately controlled Pain: adequately controlled Airway Patency, RR, SpO2: stable & adequate BP & HR: stable & adequate Hydration State: stable & adequate Anesthetic Complications: no major complications apparent
[2019-03-19] MEDS ORDERED: MAGNESIUM HYDROXIDE SUSP 30 ML UDC PO PRN (16:57)
[2019-03-19] MEDS ORDERED: METOCLOPRAMIDE HCL INJ 5 MG/ML 2 ML VIAL IV PRN (16:57)
[2019-03-19] MEDS ORDERED: BISACODYL 10 MG SUPP PR PRN (16:57)
[2019-03-19] MEDS: SODIUM CHLORIDE 0.9% 1000ML 1,000 ML IV SCH (17:32)
[2019-03-19] MEDS ORDERED: VANCOMYCIN HCL 1000MG/20ML VIAL IV ONE (19:59)
[2019-03-19] MEDS ORDERED: fentaNYL citrate 100 MCG/2 ML VIAL IV ONE (19:59)
[2019-03-19] MEDS ORDERED: BACITRACIN INJ 50,000 UNIT VIAL IM ONE (19:59)
[2019-03-19] MEDS ORDERED: MIDAZOLAM HCL 1 MG/ML 2ML VIAL IV ONE (19:59)
[2019-03-19] MEDS ORDERED: ONDANSETRON INJ 2 MG/ML 2 ML VIAL IV ONE (19:59)
[2019-03-19] MEDS ORDERED: PROPOFOL IV EMULSION 10 MG/ML 20 ML VIAL IV ONE (19:59)
[2019-03-19] MEDS ORDERED: LIDOCAINE HCL 2% 2 ML VIAL/AMP(20MG/ML) INFIL ONE (19:59)
[2019-03-19] MEDS: SENNA 8.6 MG TAB PO SCH (20:48)
[2019-03-19] MEDS: DOCUSATE SODIUM 100 MG CAP PO SCH (20:48)
[2019-03-19] MEDS: BACLOFEN 10 MG TAB PO PRN (23:44)
[2019-03-20] MEDS: SODIUM CHLORIDE 0.9% 1000ML 1,000 ML IV SCH (03:54)
[2019-03-20 05:23] LABS: Hematocrit (blood only) 28.5 % (37-47); Hemoglobin 8.8 g/dL (12.0-16.0); Mean Corpuscular Hgb Conc 30.9 g/dL (32-36); Mean Corpuscular Volume 89.3 fL (80-100); Mean Platelet Volume 8.6 fL (7.4-10.4); Platelet Count 535 K/uL (130-400); RDW Coefficient of Variation 16.6 % (11.5-14.5); RDW Standard Deviation 54.9 fL (36.4-46.3); Red Blood Count 3.19 M/uL (4.2-5.4); White Blood Count 7.84 K/uL (4.8-10.8)
[2019-03-20 06:02] LABS: BUN Creatinine Ratio 11.2 (10-20); Calcium 7.4 mg/dl (8.5-10.1); Creatinine Clr Calc Pharmacy 82.3 ml/min; Est GFR (African American) 107.2; Est GFR (Non-African American) 92.5; Potassium 3.7 mmol/L (3.5-5.1)
[2019-03-20] MEDS: VANCOMYCIN HCL 1,000 MG/270 ML BAG IV SCH (06:04)
[2019-03-20] MEDS: OXYCODONE HCL IR 5 MG TAB (IMMEDIATE RELEASE) PO PRN ×3 (06:15→20:56)
[2019-03-20] MEDS: MoRPHine SULFATE 4 MG/ML 1 ML CARP\\VIAL IV PRN ×2 (07:32→16:02)
[2019-03-20] MEDS: MULTIVITAMIN TAB PO SCH (08:26)
[2019-03-20] MEDS: DOCUSATE SODIUM 100 MG CAP PO SCH ×2 (08:26→20:54)
[2019-03-20] MEDS: PANTOprazole 40 MG TAB PO SCH ×2 (08:26→20:55)
[2019-03-20] MEDS: ASPIRIN 81 MG ECTAB PO SCH ×2 (08:26→20:55)
[2019-03-20] MEDS: THIAMINE HCL 100 MG TAB PO SCH (08:26)
[2019-03-20] MEDS: FOLIC ACID 1 MG TAB PO SCH (08:26)
[2019-03-20] MEDS: PANCREAZE (LIPASE 4,200U) CAP PO SCH ×3 (08:26→17:21)
[2019-03-20] MEDS: DULOXETINE HCL 60 MG CAP PO SCH (08:26)
[2019-03-20] MEDS: FERROUS SULFATE 325 MG TAB PO SCH ×2 (08:26→17:21)
[2019-03-20] MEDS: GABAPENTIN 300 MG CAP PO SCH ×3 (08:26→20:54)
[2019-03-20] MEDS: BETAMETHASONE VAL 0.1% CR 15 GM EXT SCH (08:27)
--- NOTE | 2019-03-20 08:41 | Orthopedic Progress Note ---
Date of Service March 20, 2019 Assessment & Plan (1) Bimalleolar ankle fracture: POD#15 Ankle irrigation and debridement, External Fixator Application(Left) bimalleolar ankle fracture, repair 12 cm laceration -Pain management -PT/OT- NWB LLE -DVT prophylaxis-SCDs, Aspirin 81mg BID -elevation -Continue wound care per Wound Care Team -Continue IV antibx. POD #5 s/p repeat I & D left ankle, application wound vac. POD#1 s/p repeat I&D left ankle (Third washout) - bone of medial malleolus is now becoming exposed, joint is exposed. I discussed the case with Plastics and they stated wound would likely need a free flap and that cannot be done here. She will need to be transfered to tertiary care facilitity for definitive wound closure - continue IV abx Will discuss with Dr Erickson/Feliberto. Question need for second I&D of the ankle wound. Repeat US neg for DVT Pt now questioning why she needs to go to [facility]. Feels she is getting around well and could do all of her daily ADL's herself etc. Will have to discuss with PT/OT and Med service. No further surgery needed at this time. Will need to continue daily dressing changes and follow up with wound care regularly. Plan for f/u with Dr Erickson next week. Dr Patrick to see patient later today. Physical Exam Physical Exam: dressing in tact exfix stable, toes warm, pink cr<2 Results & Data Vital Signs (Past 12 Hours) Vital Signs Temp Pulse Pulse Resp BP Pulse Ox 03/20/19 07:47 37.2 C 98 H 15 102/66 98 03/20/19 04:00 37.1 C 106 H 14 112/72 100 03/19/19 23:25 36.6 C 103 H 14 121/77 100 (1) Bimalleolar ankle fracture Encounter type: initial encounter Fracture type: open Laterality: left Open fracture type: open type III Qualified Code(s): S82.842C - Displaced bimalleolar fracture of left lower leg, initial encounter for open fracture type IIIA, IIIB, or IIIC
[2019-03-20] MEDS ORDERED: MULTIVITAMIN TAB PO SCH (09:00)
[2019-03-20] MEDS: ERTAPENEM SODIUM 1,000 MG in SODIUM CHLORIDE 0.9% 50 ML IV SCH (09:51)
[2019-03-20] MEDS: BACLOFEN 10 MG TAB PO PRN (10:45)
[2019-03-20] MEDS: DULOXETINE HCL 30 MG CAP PO SCH (12:57)
--- NOTE | 2019-03-20 14:11 | Hospitalist Progress Note ---
Date of Service March 20, 2019 Assessment & Plan (1) Bimalleolar ankle fracture: - S/P fall at home; S/P L I&D, external fixator application for bimalleolar ankle fx and repair of 12 cm laceration on 03/04 and now S/P I&D on 03/14 and again on 03/19 - Initial cx with klebsiella oxytoca and enterobacter cloacae with cx from 02/11 with klebsiella oxytoca and a ESBL Klebsiella oxytoca; Cx from 03/19 with gram neg bacilli; BCx NGTD - Continues with LLE edema - doppler neg for DVT - Continue Ertapenem given MDR Klebsiella - will ultimately need PICC and approx. 4 weeks ABx as discussed with ID (approx. April 13) - DVT prophylaxis: ASA 81 mg BID - Pain control - NWB on LLE - Orthopedics following - appreciate input and surgical management - will require flap for skin closure due to debridement to bone - will need transfer to tertiary care facility (2) SBO (small bowel obstruction): - This was likely in the setting of adhesions; treated conservatively with NGT/bowel rest; Remains resolved and tolerating diet - If ongoing issues could have GI evaluation with EGD/EUS/Colonoscopy as outpatient; family mentioned possible element of bulimia nervosa - Gen Surg consulted - appreciate input - did S/O (3) Anemia: - STABLE - Iron studies support FAYE; likely though multifactorial given ETOH use - Continue folic acid, thiamine and ferrous sulfate (4) Alcohol use: - 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; reports she is an occasional drinker - No signs of active withdrawal at this time; Ativan PRN; Thiamine/Folic acid - Librium utilized and now discontinued - monitor for any rebound issues while now off this medication (5) Depression: - Continue Cymbalta 60 mg daily; additional dose of 30 mg added; Vistaril PRN - Discussed concerns with her mother on 03/17 - there has been difficulty finding a good therapist/psychiatrist the patient can continue with and mother feels that she really needs ETOH help -- Patient continue to decline ETOH rehab and this may be difficult to arrange at this time due to her medical issues however would definitely benefit from therapy/rehab/close follow-up - Had a lengthy discussion with patient about mental health and she states she feels like she is a calm individual without anxiety or depression however she experiences "monkey brain" where her thoughts seem to swing back and forth - Psychiatry provided patient with list of outpatient providers (6) Pancreatic insufficiency: - Pancreatic enzyme replacement. - Will need GI work up as outpatient. (7) Hydrosalpinx: - Noted on CT; F/U as outpatient (8) DVT prophylaxis: - Aspirin BID. Disposition: Will need PICC line and close wound follow-up after flap closure - likely will need SNF for treatment ue to insurance limitations -- Due to the need of a flap she will need to transfer to tertiary care for this - will explore which facilities can accommodate and will transfer to tertiary care Subjective Reports continued pain in the ankle. Had a long discussion about pain medications as the goal to avoid Diluadid use as she states it helps her pain but is helping her relax too and would be safer to use her Vistaril for anxiety/depression than Dilaudid. Unfortunately pain is going to be an ongoing issue for her. Otherwise feeling well today, ambulating well. She does express some frustration with the length of recovery needs and states she wishes she could just have her foot amputated. Review of Systems Constitutional: no fever and no chills Respiratory: no cough and no dyspnea Cardiovascular: no chest pain and no palpitations Gastrointestinal: no abdominal pain, no nausea, no vomiting, no constipation and no diarrhea/loose stools Genitourinary: no dysuria Musculoskeletal: + joint pain (L ankle/foot) and + swelling (LLE) spasm- like pain in L thigh Neurologic: no tingling and no numbness Physical Exam Constitutional: WD/WN, vitals as above Eyes: + anicteric sclerae Neck: trachea midline Respiratory: normal respiratory effort, lungs clear to auscultation Cardiovascular: Rate/Rhythm: regular rate and regular rhythm Heart Sounds: no murmur Extremities: + pedal edema (L) Gastrointestinal (Abdomen): Inspection/Auscultation: normal bowel sounds Percussion/Palpation: abdomen soft; abdomen nontender Musculoskeletal: Head/Neck/Chest: normocephalic and head atraumatic LLE with external fixator placed and JOHANNY wrap C/D/I to open wound region. Skin: no rashes, warm and dry (other than in MS section) Neurologic: moves all extremities Psychiatric: A+Ox3, euthymic affect Results & Data Vital Signs (Past 12 Hours) Vital Signs Temp Pulse Pulse Resp BP Pulse Ox 03/20/19 12:02 37.1 C 88 15 118/80 100 03/20/19 07:47 37.2 C 98 H 15 102/66 98 03/20/19 04:00 37.1 C 106 H 14 112/72 100 PG Care Time/CCT Total # of Minutes Spent Total Time Spent with Patient: Total time spent is greater than 50% in coordination of care (as documented) at patient's floor/unit and/or counseling patient: (1) Bimalleolar ankle fracture Encounter type: initial encounter Fracture type: open Laterality: left Open fracture type: open type III Qualified Code(s): S82.842C - Displaced bimalleolar fracture of left lower leg, initial encounter for open fracture type IIIA, IIIB, or IIIC
[2019-03-20] MEDS: SENNA 8.6 MG TAB PO SCH (20:56)
[2019-03-21] MEDS: MoRPHine SULFATE 4 MG/ML 1 ML CARP\\VIAL IV PRN ×2 (00:57→16:38)
[2019-03-21] MEDS: ASPIRIN 81 MG ECTAB PO SCH (08:40)
[2019-03-21] MEDS: MULTIVITAMIN TAB PO SCH (08:40)
[2019-03-21] MEDS: FERROUS SULFATE 325 MG TAB PO SCH ×2 (08:40→16:01)
[2019-03-21] MEDS: FOLIC ACID 1 MG TAB PO SCH (08:40)
[2019-03-21] MEDS: PANCREAZE (LIPASE 4,200U) CAP PO SCH ×3 (08:40→16:00)
[2019-03-21] MEDS: DULOXETINE HCL 60 MG CAP PO SCH (08:40)
[2019-03-21] MEDS: DOCUSATE SODIUM 100 MG CAP PO SCH (08:40)
[2019-03-21] MEDS: GABAPENTIN 300 MG CAP PO SCH ×2 (08:40→12:52)
[2019-03-21] MEDS: PANTOprazole 40 MG TAB PO SCH (08:40)
[2019-03-21] MEDS: THIAMINE HCL 100 MG TAB PO SCH (08:40)
[2019-03-21] MEDS: ERTAPENEM SODIUM 1,000 MG in SODIUM CHLORIDE 0.9% 50 ML IV SCH (09:33)
[2019-03-21] MEDS: OXYCODONE HCL IR 5 MG TAB (IMMEDIATE RELEASE) PO PRN ×2 (09:59→16:00)
--- NOTE | 2019-03-21 12:10 | Orthopedic Progress Note ---
Date of Service March 21, 2019 Assessment & Plan (1) Bimalleolar ankle fracture: POD#17 Ankle irrigation and debridement, External Fixator Application(Left) bimalleolar ankle fracture, repair 12 cm laceration -Pain management -PT/OT- NWB LLE -DVT prophylaxis-SCDs, Aspirin 81mg BID -elevation -Continue wound care per Wound Care Team -Continue IV antibx. POD #7 s/p repeat I & D left ankle, application wound vac. POD#2 s/p repeat I&D left ankle (Third washout) - bone of medial malleolus is now becoming exposed, joint is exposed. I discussed the case with Plastics and they stated wound would likely need a free flap and that cannot be done here. She will need to be transfered to tertiary care [facility] for definitive wound closure - continue IV abx -She had a fall out of bed this morning. There was some increased bloody drainage from the wound. I inspected the region. She may have had a slight shifting to the reduction as the medial malleolus is a little bit more prominent through the wound and it was previously. The only way to address this would be to take her to the operating room and revise the placement of the external fixator but it would not change the management necessary which is flap coverage over the wound itself. Currently the wound appears to be relatively clean there is some mild bloody drainage from the distal aspect of the wound at this time the periosteum of the medial malleolus is exposed and some of the fibers of the deltoid ligament are visible through the wound. She is being set up for transfer to [place] for flap coverage and will be transferred either today or tomorrow. No changes in her care for now. Will discuss with Dr Erickson/Feliberto. Question need for second I&D of the ankle wound. Repeat US neg for DVT Pt now questioning why she needs to go to [facility]. Feels she is getting around well and could do all of her daily ADL's herself etc. Will have to discuss with PT/OT and Med service. No further surgery needed at this time. Will need to continue daily dressing changes and follow up with wound care regularly. Plan for f/u with Dr Erickson next week. Dr Patrick to see patient later today. Subjective Pt lying in bed awake, alert. The patient fell out of bed. She states that she was having a couple coffee and she spilled it onto herself and was startled from hot coffee try to place it on the tray balance on her bedside table which slid out from on her and she fell out of bed. She has had some increased pain and bleeding from her wound Physical Exam Physical Exam: Left ankle wound: The medial malleolus is slightly more prominent than was previously. The surrounding wound is relatively clean. There is some mild granulation tissue. There is increased bloody drainage from the more distal aspect of the wound. It appears as though the reduction may have shifted slightly. Results & Data Vital Signs (Past 12 Hours) Vital Signs Temp Pulse Pulse Resp BP Pulse Ox 03/21/19 07:22 36.5 C 93 H 17 107/73 98 03/21/19 06:23 36.7 C 102 H 18 124/83 95 (1) Bimalleolar ankle fracture Encounter type: initial encounter Fracture type: open Laterality: left Open fracture type: open type III Qualified Code(s): S82.842C - Displaced bimalleolar fracture of left lower leg, initial encounter for open fracture type IIIA, IIIB, or IIIC
[2019-03-21] MEDS: DULOXETINE HCL 30 MG CAP PO SCH (12:52)
[2019-03-21] MEDS: BACLOFEN 10 MG TAB PO PRN (15:41)
[2019-03-21] MEDS ORDERED: HYDROmorphone INJ 0.5 MG/0.5 ML SYR IV ONE (16:54)
--- NOTE | 2019-03-21 17:30 | Discharge Summary ---
Date of Service March 21, 2019 Admission HPI Per Admitting Provider Patient presents with an open fracture dislocation of her left ankle. Reportedly she was struck by her pet dog and was on the ground for period of time. There is some mention from different providers this may benefit 2 days although her mother corroborates this is just been today. Patient has a history of alcohol abuse she says she still does drink but not to excess. She states she is able to have a day or 2 without drinking without any withdrawal signs or symptoms. She typically drinks 1 to 2 glasses of wine a day. She has a previous history of pancreatic insufficiency which she takes supplementation and hepatic steatosis. Also been mentions of some diabetes in the past although she is not on any formal treatment at this time. She does suffer from depression taking duloxetine Currently she is being evaluated for possible washout of her open fracture dislocation of her left ankle. Likely this will be a two-stage procedure first with washout and then secondarily will possibly be for stabilization with hardware once the risk of infection has been reduced Principal Diagnosis Open L Ankle Fracture with Delayed Healing and Multiple Organisms to include MDR Klebsiella oxytoca Discharge Exam Constitutional WD/WN, vitals as above Eyes + anicteric sclerae Neck trachea midline Respiratory normal respiratory effort, lungs clear to auscultation Cardiovascular Rate/Rhythm: regular rate and regular rhythm Heart Sounds: no murmur Extremities: + pedal edema (L) Gastrointestinal (Abdomen) Inspection/Auscultation: normal bowel sounds Percussion/Palpation: abdomen soft; abdomen nontender Musculoskeletal Head/Neck/Chest: normocephalic and head atraumatic external fixator in place with JOHANNY wrap to wound which was not removed by myself Skin no rashes, warm and dry (other than in MS section) Neurologic moves all extremities Psychiatric A+Ox3, euthymic affect Discharge Data Allergies Allergy/AdvReac Type Severity Reaction Status Date / Time No Known Allergies Allergy Verified 03/04/19 14:51 Consultations 03/04/19 13:57 Consult Orthopedic Surgery Stat 03/04/19 15:41 ED Decision to Admit Stat 03/04/19 20:29 Consult Case Management - Discharge Planning Routine Consult Case Management - Discharge Planning Routine 03/07/19 08:44 Consult Infectious Diseases Routine 03/10/19 13:30 Consult General Surgery Routine 03/10/19 19:58 Consult Psychiatry Routine 03/19/19 16:57 Consult Case Management - Discharge Planning Routine 03/21/19 15:35 Burn CD for patient Routine Procedures Performed Operation Date: 03/04/19 14:40 Actual Procedures p Left Ankle Incision and Drainage, External Fixator Application(Left) - Riki Dao MD Operation Date: 03/13/19 10:00 <No data on this case meets the specified criteria> Operation Date: 03/14/19 10:00 Actual Procedures p Incision and Drainage Left Ankle, Application of Wound Vac(Left) - James Gonsales MD Operation Date: 03/19/19 14:10 Actual Procedures p Repeat Incision and Drainage of Left Ankle Wound(Left) - Riki Dao MD Ordered Studies 03/04/19 FL ankle LT 2V Routine FL fluoroscopy <1hr Routine 03/04/19 14:06 CT abd pelvis IV con only Stat CT cervical spine wo con Stat CT chest w con Stat CT head/brain wo con Stat 03/04/19 14:07 CT tib/fib LT wo con Stat 03/10/19 13:33 CT abd pelvis oral and IV con Routine 03/11/19 13:40 CT sinus wo con Routine 03/14/19 13:37 US venous doppler LE LT Urgent 03/16/19 09:39 US venous doppler LE LT Urgent Hospital Course (1) Bimalleolar ankle fracture: - S/P fall at home; S/P L I&D, external fixator application for bimalleolar ankle fx and repair of 12 cm laceration on 03/04 and now S/P I&D on 03/14 and again on 03/19 - Initial cx with klebsiella oxytoca and enterobacter cloacae with cx from 02/11 with klebsiella oxytoca and a ESBL Klebsiella oxytoca; Cx from 03/19 now with additional enterococcus; BCx NGTD - Continues with LLE edema - doppler neg for DVT - Continue Ertapenem given MDR Klebsiella - did relay the new Cx results in [facility] instructions as this populated on day of D/C and Ertapenem would not be good coverage for the now Enterococcus and will need to add a penicillin/vanco/dapto alternative - will ultimately need PICC and approx. 4 weeks ABx as discussed with ID (approx. April 13) - DVT prophylaxis: ASA 81 mg BID - NWB on LLE - Orthopedics followed - will require free flap for skin closure due to debridement to bone - will transfer to [facility] and discussed with Plastics Dr. Glen Garcia who will also contact trauma ortho (2) SBO (small bowel obstruction): - This was likely in the setting of adhesions; treated conservatively with NGT/bowel rest; Remains resolved and tolerating diet - If ongoing issues could have GI evaluation with EGD/EUS/Colonoscopy as outpatient; family mentioned possible element of bulimia nervosa - Gen Surg consulted - no surgical intervention was necessary (3) Anemia: - STABLE (baseline 8.3-9.6) - Iron studies support FAYE; likely though multifactorial given ETOH use - Continue folic acid, thiamine and ferrous sulfate (4) Alcohol use: - 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; reports she is an occasional drinker - No signs of active withdrawal at this time; Ativan PRN; Thiamine/Folic acid - Librium utilized and now discontinued (5) Depression: - Continue Cymbalta 60 mg daily; additional dose of 30 mg added; Vistaril PRN - Discussed concerns with her mother on 03/17 - there has been difficulty finding a good therapist/psychiatrist the patient can continue with and mother feels that she really needs ETOH help -- Patient continue to decline ETOH rehab and this may be difficult to arrange at this time due to her medical issues however would definitely benefit from therapy/rehab/close follow-up - Had a lengthy discussion with patient about mental health and she states she feels like she is a calm individual without anxiety or depression however she experiences "monkey brain" where her thoughts seem to swing back and forth - Psychiatry provided patient with list of outpatient providers (6) Pancreatic insufficiency: - Pancreatic enzyme replacement. - Will need GI work up as outpatient. (7) Hydrosalpinx: - Noted on CT; F/U as outpatient (8) DVT prophylaxis: - Aspirin BID. Disposition: Will need PICC line and close wound follow-up after flap closure - likely will need SNF for treatment due to insurance limitations in regards to IV infusions -- She will transfer to [facility] for free flap vs other intervention and upon wound improvement ultimate removal of external fixator and fracture repair Total Time Total Time Spent Total Time Spent (In Minutes): Greater than 30 minutes Discharge Plan Discharge Items Patient Disposition: Transfer Acute Care Hospital Reason For Visit: OPEN ANKLE DISLOCATION,POSSIBLE ALCOHOL WITHDRAWAL Discharge Diagnosis: Open Ankle Fracture Discharge Goals: Decrease discomfort, Improve function and Prevent disease Activity: Per 'Additional Instructions' section Weightbearing: Left non-weightbearing Non-emergency contact: Primary Care Provider and Surgeon Call non-emergency contact if: you have any medication questions, your symptoms worsen and you have a fever Follow-up/Referrals: Ana Lilia Madrid MD [Primary Care Provider] - Farhan Erickson DO [Surgeon] - Diet: Regular Addtl Provider Instructions: Bimalleolar ankle fracture: - S/P fall at home possible 8-12 hours open fracture before seeking care some dog hair was found in wound; S/P L I&D, external fixator application for bimalleolar ankle fx and repair of 12 cm laceration on 03/04 and now S/P I&D on 03/14 and again on 03/19 - Initial cx with klebsiella oxytoca and enterobacter cloacae with cx from 02/11 with klebsiella oxytoca and a ESBL Klebsiella oxytoca; Cx from 03/19 with gram neg bacilli and gram + cocci - so far one with streptococcus awaiting further sensitivities; BCx NGTD - Continues with LLE edema - doppler neg for DVT - Initially treated with Cefepime but converted to Ertapenem given MDR Klebsiella and awaiting sensitivities for gram + organism which if pansensitive the Ertapenem should cover - will ultimately need PICC and approx. 4 weeks ABx as discussed with ID (approx. April 13) - maybe longer pending course of skin grafting - DVT prophylaxis: ASA 81 mg BID - Pain control - had a long discussion about Dilaudid as this has been the most beneficial but states this also helps her relax and she does express concerns of addition and does have ETOH addiction - difficulty is likely pain will be an ongoing issue but would like to reduce addiction potential - NWB on LLE - Orthopedics following -- will require free flap for skin closure due to debridement to bone - further intervention per Plastics/Trauma Ortho - On 03/21 patient slid out of bed after spilling coffee on her self and using the bedside table to stop her which rolled out from her. Orthopedics assessed and there may be some slight shifting to the reduction as the medial malleolus is a bit more prominent through the wound - however they report the management would not change at this time as the first plan is for the flap then to repair the injury and remove external fixator pending wound improvement - New wound cultures from washout on 03/19 - show enterobacter cloacae and streptococcus species and the other culture with enterococcus faecalis which Ertapenem may only have limited or no activity against enterococci and may need further antibiotic adjustments - pansensitive on cx - could consider penicillins/vanc/dapto SBO (small bowel obstruction): - This was likely in the setting of adhesions; treated conservatively with NGT/bowel rest; Remains resolved and tolerating diet - If ongoing issues could have GI evaluation with EGD/EUS/Colonoscopy as out patient; family mentioned possible element of bulimia nervosa and she has dealt with this in the past - Gen Surg consulted - - did S/O as no surgical needs present Anemia: - STABLE (Baseline 8.3-9.6) - Iron studies support FAYE; likely though multifactorial given ETOH use - Continue folic acid, thiamine and ferrous sulfate (4) Alcohol use: - 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; reports she is an occasional drinker now -- Discussion with family suggests this is still more prevalent of an issue than patient expresses - No signs of active withdrawal at this time and is more than 2 weeks from last drink; Can use Ativan PRN; Thiamine/Folic acid - Librium utilized and now discontinued during hospital stay Depression: - Continue Cymbalta 60 mg daily with recent additional dose of 30 mg added per psychiatry; Vistaril PRN - Discussed concerns with her mother on 03/17 - there has been difficulty finding a good therapist/psychiatrist the patient can continue with and mother feels that she really needs ETOH help -- Patient continue to decline ETOH rehab and this may be difficult to arrange at this time due to her medical issues however would definitely benefit from therapy/rehab/close follow-up - Had a lengthy discussion with patient about mental health and she states she feels like she is a calm individual without anxiety or depression however she experiences "monkey brain" where her thoughts seem to swing back and forth - unfortunately her ETOH abuse has likely impeded true diagnosis of mental health conditions and maybe with sobriety this can be more thoroughly assessed as acute medical issues stabilize - Psychiatry provided patient with list of outpatient providers in area Pancreatic insufficiency/Chronic Pancreatitis: - No acute issues - Pancreatic enzyme replacement. - Will need GI work up as outpatient. Hydrosalpinx: - Noted on CT; F/U as outpatient DVT prophylaxis: - Aspirin BID. Disposition: Will need PICC line and close wound follow-up after flap closure - likely will need SNF for treatment due to insurance limitations -- Insurance policy states she needs a visiting nurse daily for IV infusions at home which most nursing agencies cannot accommodate; She could use our medical treatment unit however this is inconvenient and a risk given ETOH abuse; [facility] cannot accept patient; her other choice was [facility] which may be able to accommodate, for now she will transfer to [facility] for free skin flap Prescriptions: New ferrous sulfate 325 mg (65 mg iron) Tablet,Delayed Release (Dr/Ec) 325 mg PO BIDM Qty: 0 RF: 0 thiamine HCl (vitamin B1) [Vitamin B-1] 100 mg Tablet 100 mg PO QAM Qty: 0 RF: 0 aspirin [Ecotrin Low Strength] 81 mg Tablet,Delayed Release (Dr/Ec) 81 mg PO BID Qty: 0 RF: 0 Continued hydroxyzine pamoate [Vistaril] 50 mg Capsule 50 mg PO BID PRN (Reason: Anxiety) RF: 0 gabapentin 300 mg Capsule 300 mg PO TID RF: 0 vitamin B complex Tablet 1 tab PO QAM RF: 0 folic acid 1 mg Tablet 1 mg PO QAM RF: 0 duloxetine [Cymbalta] 60 mg Capsule,Delayed Release(Dr/Ec) 60 mg PO QAM RF: 0 Creon 6,000-19,000 -30,000 unit Capsule,Delayed Release(Dr/Ec) 1 cap PO TIDM RF: 0 cyanocobalamin (vitamin B-12) [Vitamin B-12] 1,000 mcg Tablet 1,000 mcg PO QAM RF: 0 Vitamin C 100 mg Tablet 100 mg PO QAM RF: 0 ergocalciferol (vitamin D2) [Vitamin D2] 50,000 unit Capsule 50,000 unit PO WK RF: 0 cholecalciferol (vitamin D3) [Vitamin D3] 5,000 unit Tablet 5,000 unit PO QAM RF: 0 Changed duloxetine 20 mg Capsule,Delayed Release(Dr/Ec) 30 mg PO DAILY Qty: 0 RF: 0 Discontinued naproxen sodium 220 mg tablet PO RF: 0 Stand-Alone Forms: [facility] Discharge Orders: Discharge Order (Routine); Ordered 03/21/19 Ordered By: Alba Fall Admission Data Admit Date/Time: 03/04/19 19:23 Attending Provider: Ritchie Mckeon Admit Provider: Mike Capps Primary Care Provider: Ana Lilia Madrdi V. Other Providers: Yolanda Conley ; Nora Frances ; Brenden Mayo ; Mike Capps ; Farhan Erickson Service: Telemetry Other Interventions: Discharge Summary Assessment (RN) Last Done: 03/21/19 16:29 Pending Studies at Discharge: No
[2019-03-21] MEDS ORDERED: HYDROmorphone INJ 0.5 MG/0.5 ML SYR ONE (19:41)
== END 2019-03-21 20:00 | disposition short-term general hospital (02) | DRG 493 ==
LOC: ED 13:21 → OR 16:12 → SUATTDRO 19:23 → 2S 19:23 → 3N 03-09 12:15

== ENCOUNTER 2019-08-12 16:31 | Inpatient (IN) ==
[2019-08-12 17:19] LABS: Basophils # (auto) 0.06 K/uL (0-0.2); Basophils % (auto) 0.9 %; Eosinophils # (auto) 0.04 K/uL (0-0.5); Eosinophils % (auto) 0.6 %; Hematocrit (blood only) 43.7 % (37-47); Hemoglobin 15.4 g/dL (12.0-16.0); Immature Granulocytes # (auto) 0.02 K/uL (0.00-0.02); Immature Granulocytes % (auto) 0.3 %; Lymphocytes % (auto) 33.8 %; Mean Corpuscular Hemoglobin 30.7 pg (25-34); Mean Corpuscular Hgb Conc 35.2 g/dL (32-36); Mean Corpuscular Volume 87.1 fL (80-100); Mean Platelet Volume 9.3 fL (7.4-10.4); Monocytes # (auto) 0.28 K/uL (0.11-0.59); Monocytes % (auto) 4.3 %; Neutrophils % (auto) 60.1 %; Platelet Count 236 K/uL (130-400); RDW Coefficient of Variation 16.2 % (11.5-14.5); RDW Standard Deviation 51.8 fL (36.4-46.3); Red Blood Count 5.02 M/uL (4.2-5.4)
--- NOTE | 2019-08-12 17:22 | XRay Report ---
XR chest 1V portable CLINICAL HISTORY: Acute change in mental status COMPARISON STUDY: 02/11/2018 FINDINGS: The cardiac and mediastinal contours are normal. There is no evidence of focal pulmonary co nsolidation. There is no evidence of failure. No pleural effusions are visualized.[There is minor rig ht medial basilar atelectasis/scarring. There are old left-sided rib fractures. IMPRESSION: No active disease in the chest. Electronically signed by: Blas Schuler M.D. 08/12/2019 5:20 PM
--- NOTE | 2019-08-12 17:23 | XRay Report ---
XR pelvis 1-2V routine CLINICAL HISTORY: Pelvic pain status post trauma COMPARISON: None. DISCUSSION: No fractures or dislocations are visualized. There is no SI joint diastases. There is no symphysis diastases. IMPRESSION: No fractures identified. Electronically signed by: Blas Schuler M.D. 08/12/2019 5:21 PM
[2019-08-12 17:43] LABS: Alanine Aminotransferase 34 U/L (12-78); Albumin Level 3.8 gm/dl (3.4-5.0); Aspartate Aminotransferase 42 U/L (15-37); BUN Creatinine Ratio 12.8 (10-20); Blood Urea Nitrogen 10 mg/dl (7-18); Calcium 9.3 mg/dl (8.5-10.1); Carbon Dioxide 24 mmol/L (21-32); Chloride 97 mmol/L (98-107); Est GFR (African American) 102.2; Est GFR (Non-African American) 88.2; Glucose 128 mg/dl (70-99); Lipase 40 U/L (73-393); Potassium 3.8 mmol/L (3.5-5.1); Sodium 136 mmol/L (136-145)
[2019-08-12 17:45] LABS: Acetaminophen < 2 ug/ml (10-30)
[2019-08-12 17:46] LABS: Salicylate 2.8 mg/dl (2.8-20)
[2019-08-12 17:54] LABS: Albumin Globulin Ratio 0.9 (0.9-2); Alkaline Phosphatase 131 U/L (45-117); Bilirubin,Total 0.5 mg/dl (0.2-1); Creatine Kinase 40 U/L (26-192); Globulin 4.2 gm/dl (2.5-4.0); Magnesium 2.3 mg/dl (1.8-2.4)
[2019-08-12 17:55] LABS: Pregnancy Test, Serum Negative (Negative)
--- NOTE | 2019-08-12 18:01 | CT Scan Report ---
CT head/brain wo con CLINICAL HISTORY: Acute change in mental status COMPARISON STUDY: 03/04/2019 TECHNIQUE: Axial CT of the brain is performed from the vertex to the skull base. IV contrast was not administered for this examination. A dose lowering technique was utilized adhering to the principles of ALARA. CT DOSE: FINDINGS: No intra or extra-axial mass lesions are visualized. There is no CT evidence of acute cortical infarc tion. There is no evidence of midline shift. There is no acute hemorrhage. No calvarial fractures ar e visualized. There are minimal white matter hypodensities likely on a small vessel basis. There is no evidence of pathologic ventricular dilatation. There is no evidence of acute sinusitis IMPRESSION: No acute intracranial findings Electronically signed by: Blas Schuler M.D. 08/12/2019 6:00 PM
--- NOTE | 2019-08-12 18:03 | CT Scan Report ---
CT OF THE CERVICAL SPINE CLINICAL HISTORY: Acute change in mental status. Neck pain. Possible trauma. COMPARISON STUDY: 03/04/2019 CT DOSE: 935.32 mGy.cm TECHNIQUE: CT scan of the cervical spine was performed from the skull base to the thoracic inlet. Aisha ges are reviewed in the axial, sagittal, and coronal planes. IV contrast was not administered for thi s examination. A dose lowering technique was utilized adhering to the principles of ALARA. FINDINGS: The visualized portions of the lung apices reveal no evidence of pneumothorax. The prevertebral soft tissues are normal. No fractures or subluxations are visualized. There are multilevel degenerative changes IMPRESSION: No evidence of acute fracture or traumatic subluxation. Electronically signed by: Blas Schuler M.D. 08/12/2019 6:02 PM
[2019-08-12] MEDS ORDERED: ONDANSETRON INJ 2 MG/ML 2 ML VIAL ONE (19:52)
[2019-08-12] MEDS ORDERED: DiphenhydrAMINE HCL 50 MG/ML VIAL IV STA (20:47)
[2019-08-12] MEDS ORDERED: METOCLOPRAMIDE HCL INJ 5 MG/ML 2 ML VIAL IV ONE (20:47)
[2019-08-12] MEDS ORDERED: SODIUM CHLORIDE 0.9% 1000ML 1,000 ML IV ONE (21:22)
[2019-08-12] MEDS ORDERED: LORazepam 1 MG/2 ML VIAL IV STA (21:22)
[2019-08-13 00:02] LABS: Appearance Urine Turbid (Clear); Bacteria Urine Automated 4+ (Negative); Bilirubin Urine Negative (Negative); Blood Urine 2+ (Negative); Color Urine Yellow; Epithelial Cell Urine Auto >30 /lpf (0-5); Glucose Urine UA 1+ (Negative); Ketones Urine 1+ (Negative); Leukocyte Esterase Urine 3+ (Negative); Nitrite Urine Negative (Negative); Protein Urine 2+ (Negative); Urobilinogen Urine Negative (Negative); WBC Urine Automated >30 /hpf (0-5); pH Urine 5.5 (4.5-7.5)
[2019-08-13 00:16] LABS: Amphetamines+Metham, Urine Neg (Neg); Barbiturates, Urine Neg (Neg); Benzodiazepine, Urine Neg (Neg); Cocaine, Urine Neg (Neg); MDMA (Ecstacy), Urine Neg (Neg); Methadone, Urine Neg (Neg); Opiate, Urine Neg (Neg); Phencyclidine, Urine Neg (Neg)
[2019-08-13 00:19] LABS: Cast Urine Automated 0 /lpf (0-5); RBC Urine Automated 0-4 /hpf (0-4)
--- NOTE | 2019-08-13 00:36 | Emergency Department Note ---
Entered by Nelly Valle acting as a scribe for Sohan Barcenas History of Present Illness General Chief complaint: Mental Health Evaluation Stated complaint: OVERDOSE, INTENTIONAL Time Seen by Provider: 08/12/19 16:40 Source: patient and EMS History of Present Illness Onset (ago): minute(s) (prior to arrival) Location: head (general) Pain Consistency: + other (episode) Quality: + other (suicide attempt) Associated symptoms: + other (drug overdose, alcohol use, left leg pain) The patient is a 53 year old female who presents to the Emergency Room following an episode of a suicide attempt occurring just prior to arrival. EMS reports the patient's mother called 911 because she had not heard from her. EMS reports the patient recently either got or broke up with her boyfriend. EMS reports they found the patient sitting on the couch, intoxicated, covered in urine and vomit, and surrounded by burned cigarette buds. EMS states the patient kept repeating she wanted to . EMS notes the patient states she was going to kill herself by drinking a bunch of ammonia. The patient states she tried to overdose on her gabapentin. She notes she was drinking alcohol. The patient reports left leg pain. The patient's pills brought from home included hydroxyzine, trazodone, Mobic, Duloxetine, cyclobenzaprine, Pantoprazole, and Jardiance. Home Medications Home Medications Medication Instructions Recorded Confirmed Type duloxetine 20 mg capsule,delayed 20 mg PO DAILY cap 06/13/19 08/12/19 History release duloxetine 60 mg capsule,delayed 60 mg PO QAM 06/13/19 08/12/19 History release trazodone 50 mg tablet 50 mg PO HS #30 tab 06/18/19 08/12/19 Rx cholecalciferol (vitamin D3) 1,000 1,000 units PO DAILY 06/23/19 08/12/19 History unit capsule cyclobenzaprine 10 mg tablet 10 mg PO BID PRN tab 06/23/19 08/12/19 History ferrous sulfate 325 mg (65 mg 325 mg PO Q OTHER DAY tab 06/23/19 08/12/19 History iron) tablet,delayed release folic acid 400 mcg tablet 400 mcg PO DAILY 06/23/19 08/12/19 History multivitamin tablet 1 tab PO DAILY 06/23/19 08/12/19 History vitamin E (dl, acetate) 400 unit 400 units PO DAILY 06/23/19 08/12/19 History capsule hydroxyzine pamoate 25 mg capsule 25 mg PO DAILY PRN #20 cap 06/24/19 08/12/19 History empagliflozin 10 mg tablet 10 mg PO DAILY #30 tab 06/25/19 08/12/19 Rx gabapentin 300 mg capsule 300 mg PO TID #270 cap 07/19/19 08/12/19 Rx cyanocobalamin (vitamin B-12) 1,000 mcg PO DAILY 08/12/19 08/12/19 History [Vitamin B-12] [id number] [Creon] 1 cap PO TIDM 08/12/19 08/12/19 History pantoprazole [Protonix] 40 mg PO DAILY PRN 08/12/19 08/12/19 History Allergies Allergy/AdvReac Type Severity Reaction Status Date / Time haloperidol [From Haldol] AdvReac Unknown Verified 08/12/19 19:33 Past Med/Surg History Medical History Abnormal TSH (Acute) Depression with anxiety (Acute) Dizziness (Chronic) Encephalomalacia (Acute) Exocrine pancreatic insufficiency (Acute) IPMN (intraductal papillary mucinous neoplasm) (Acute) Insomnia (Acute) Lipoma (Acute) Liver cirrhosis, alcoholic (Acute) Loose bowel movement (Acute) Peripheral neuropathy (Acute) Psoriasis (Acute) Secondary diabetes mellitus (Acute) Vitamin D deficiency (Acute) Hydrosalpinx Chronic pancreatitis (Chronic) Anxiety (Chronic) HAS UPCOMING LALA WITH PSYCH Chronic pancreatitis (Chronic) Cirrhosis of liver (Chronic) "COMPROMISED LIVER" Depression (Chronic) HAS UPCOMING LALA WITH PSYCH Diabetes mellitus (Chronic) TYPE 2 "SECONDARY" History of alcohol consumption (Chronic) Neuropathy (Chronic) OF FEET Nicotine dependence (Chronic) Pancreatic insufficiency (Chronic) Polycystic ovarian syndrome (Chronic) Alcohol withdrawal seizure (Resolved) NOT REPORTED BY PATIENT AT TIME OF PAT CALL - NOTED IN EMR PREVIOUSLY Bimalleolar ankle fracture (Resolved) Deformity of both feet (Resolved) SBO (small bowel obstruction) (Resolved) Resolving Abnormal TSH Abnormal blood sugar A1C LEVELS FLUCTUATE Bowel habit changes STARTED 1 YR AGO/LOOSE STOOLS AFTER EATING History of dizziness 2 WEEKS AGO, DIZZINESS AND NAUSEA, DENIES FEVER - HAS FULLY RESOLVED/EDU PROVIDED History of fracture TAILBONE - FLARES UP WITH WEATHER CHANGES IPMN (intraductal papillary mucinous neoplasm) Insomnia Lipoma Vitamin D deficiency Surgical History History of ankle surgery 02/2019 left ankle ex fix, grade 2 view with MAC 3 and 7.0 ETT History of tooth extraction No family history of adverse response to anesthesia Family History Other Family history of breast cancer in mother Family history of breast cancer in sister Social History Preferred Language: Tristanian Communication Ability: Effective [employer]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 and A total of 10 systems reviewed and were otherwise negative Physical Exam Vital Signs Vital Signs - 24 hr 08/12/19 16:35 08/12/19 17:11 08/12/19 17:30 Temperature 37 C Temperature Source Oral Sepsis Recent Fever Within 48 Hours No Sepsis New/Unexplained Change in Mental Status No Sepsis Action Taken by Nursing No Action Required Pulse Rate 104 H 105 H 106 H Pulse Rate [Apical] Pulse Rhythm Regular Pulse Rhythm [Apical] Pulse Strength Normal Pulse Strength [Apical] Respiratory Rate 18 16 20 Respiratory Effort / Characteristics Non-Labored Spontaneous Respiratory Depth Normal Respiratory Pattern Regular Blood Pressure 148/94 H 126/91 154/101 H Blood Pressure [Right Arm] Blood Pressure Mean 112 102 118 Blood Pressure Mean [Right Arm] Blood Pressure Position Sitting Blood Pressure Position [Right Arm] Pulse Oximetry 95 Oxygen Delivery Method Room Air 08/12/19 17:57 08/12/19 18:00 08/12/19 18:02 Temperature Temperature Source Sepsis Recent Fever Within 48 Hours Sepsis New/Unexplained Change in Mental Status Sepsis Action Taken by Nursing Pulse Rate 110 H 111 H 111 H Pulse Rate [Apical] Pulse Rhythm Pulse Rhythm [Apical] Pulse Strength Pulse Strength [Apical] Respiratory Rate 20 14 Respiratory Effort / Characteristics Respiratory Depth Respiratory Pattern Blood Pressure 150/98 H 150/101 H Blood Pressure [Right Arm] Blood Pressure Mean 115 117 Blood Pressure Mean [Right Arm] Blood Pressure Position Blood Pressure Position [Right Arm] Pulse Oximetry 95 94 Oxygen Delivery Method 08/12/19 18:18 08/12/19 19:06 08/12/19 19:39 Temperature Temperature Source Sepsis Recent Fever Within 48 Hours Sepsis New/Unexplained Change in Mental Status Sepsis Action Taken by Nursing Pulse Rate 137 H Pulse Rate [Apical] 101 H 117 H Pulse Rhythm Pulse Rhythm [Apical] Regular Pulse Strength Pulse Strength [Apical] Normal Respiratory Rate 22 16 Respiratory Effort / Characteristics Non-Labored Spontaneous Respiratory Depth Normal Respiratory Pattern Regular Blood Pressure Blood Pressure [Right Arm] 151/101 H 149/94 H Blood Pressure Mean Blood Pressure Mean [Right Arm] 117 112 Blood Pressure Position Blood Pressure Position [Right Arm] Sitting Pulse Oximetry 97 97 Oxygen Delivery Method Room Air 08/12/19 19:41 08/12/19 20:00 08/12/19 20:30 Temperature Temperature Source Sepsis Recent Fever Within 48 Hours Sepsis New/Unexplained Change in Mental Status Sepsis Action Taken by Nursing Pulse Rate 120 H 116 H 141 H Pulse Rate [Apical] Pulse Rhythm Pulse Rhythm [Apical] Pulse Strength Pulse Strength [Apical] Respiratory Rate 15 13 17 Respiratory Effort / Characteristics Respiratory Depth Respiratory Pattern Blood Pressure 149/94 H 142/97 H 162/121 H Blood Pressure [Right Arm] Blood Pressure Mean 112 112 134 Blood Pressure Mean [Right Arm] Blood Pressure Position Blood Pressure Position [Right Arm] Pulse Oximetry Oxygen Delivery Method 08/12/19 21:00 08/12/19 21:30 08/12/19 21:35 Temperature Temperature Source Sepsis Recent Fever Within 48 Hours Sepsis New/Unexplained Change in Mental Status Sepsis Action Taken by Nursing Pulse Rate 123 H 115 H 118 H Pulse Rate [Apical] Pulse Rhythm Pulse Rhythm [Apical] Pulse Strength Pulse Strength [Apical] Respiratory Rate 18 18 17 Respiratory Effort / Characteristics Respiratory Depth Respiratory Pattern Blood Pressure 156/104 H Blood Pressure [Right Arm] Blood Pressure Mean 121 Blood Pressure Mean [Right Arm] Blood Pressure Position Blood Pressure Position [Right Arm] Pulse Oximetry 96 Oxygen Delivery Method 08/12/19 22:40 Temperature Temperature Source Sepsis Recent Fever Within 48 Hours Sepsis New/Unexplained Change in Mental Status Sepsis Action Taken by Nursing Pulse Rate Pulse Rate [Apical] 118 H Pulse Rhythm Pulse Rhythm [Apical] Regular Pulse Strength Pulse Strength [Apical] Normal Respiratory Rate 16 Respiratory Effort / Characteristics Non-Labored Spontaneous Respiratory Depth Normal Respiratory Pattern Regular Blood Pressure Blood Pressure [Right Arm] 134/97 Blood Pressure Mean Blood Pressure Mean [Right Arm] 109 Blood Pressure Position Blood Pressure Position [Right Arm] Pulse Oximetry 96 Oxygen Delivery Method Room Air GENERAL: She is dirty, unkempt, and crying. HENT: Exam performed. Head: Normocephalic and atraumatic. Right Ear: External ear normal. No mastoid tenderness. Left Ear: External ear normal. No mastoid tenderness. Mouth/Throat: The oropharynx is clear and moist. No trismus in the jaw. No dental abscesses or uvula swelling. No oropharyngeal exudate or tonsillar abscesses. EYES: Conjunctivae and EOM are normal. Pupils are equal, round, and reactive to light. Right eye exhibits no discharge. Left eye exhibits no discharge. No scleral icterus. NECK: Normal range of motion. Neck supple. No JVD present. No spinous process tenderness present. No carotid bruit present. No rigidity. No tracheal deviation and normal range of motion present. No Brudzinski's sign and no Kernig's sign noted. CV: Tachycardic rate, regular rhythm, normal heart sounds and intact distal pulses. There is no peripheral edema. Palpable radial pulses bue. PULM/CHEST: Effort normal and breath sounds normal. No respiratory distress. No stridor. She has no wheezes. She has no rales. Chest Wall: She exhibits no tenderness. ABD: The abdomen is soft. Bowel sounds are normal. She has no distension. No mass is present. There is no tenderness. There is no rebound, no guarding, no Christopher's sign and no tenderness at McBurney's point. Rovsig negative MUSC/SKEL: Left-sided BKA. Normal range of motion. There is no peripheral edema, tenderness or deformity. LYMPH: No cervical adenopathy. NEURO: She is alert and oriented to person, place, and time. She has normal s trength. No cranial nerve deficit or sensory deficit. Coordination and gait normal. GCS eye subscore is 4. GCS verbal subscore is 5. GCS motor subscore is 6. cerbellar tests wnl. SKIN: Skin is warm and dry. She is not diaphoretic. PSYCH: She is crying, with a flat affect. She has positive SI. Course 1650: Past medical records reviewed. The patient was evaluated in room B07. A complete history and physical exam was performed. 1720: I spoke with Mikaela from [employer]. She states if the QRS interval is greater than 120 to give the patient 2 amps of bicarb, and if the QTC is greater than 500 give 2 grams of magnesium. Administered Medications Discontinued Medications Diphenhydramine HCl (Benadryl) 25 mg IV NOW STA Stop: 08/12/19 20:48 Last Admin: 08/12/19 20:53 Dose: 25 mg Documented by: [id number] Lorazepam (Ativan) 1 mg in 2 mls @ 2 mls/min IV NOW STA Stop: 08/12/19 21:23 Last Admin: 08/12/19 21:35 Dose: 2 mls/min Documented by: [id number] Sodium Chloride (Nss 1000ml) 1,000 mls @ 999 mls/hr IV .Q1H1M ONE Stop: 08/12/19 22:22 Last Infusion: 08/12/19 22:26 Dose: 0 mls/hr Documented by: [id number] Admin: 08/12/19 21:35 Dose: 999 mls/hr Documented by: [id number] Metoclopramide HCl (Reglan) 5 mg IV ONE ONE Stop: 08/12/19 20:48 Last Admin: 08/12/19 20:53 Dose: 5 mg Documented by: [id number] Ondansetron HCl (Zofran) Confirm Administered Dose 4 mg .ROUTE .STK-MED ONE Stop: 08/12/19 19:53 Last Admin: 08/12/19 19:54 Dose: 4 mg Documented by: [id number] Medical Decision Making Medical Records Attestation: I reviewed the patient's medical records. Home Medications Current Medication List: was personally reviewed by me Laboratory Data Attestation: I reviewed the patient's lab results. Result diagrams: 08/12/19 17:06 08/12/19 17:05 Lab Results 08/12/19 08/12/19 08/12/19 Range/Units 17:05 17:05 17:05 WBC (4.8-10.8) K/uL RBC (4.2-5.4) M/uL Hgb (12.0-16.0) g/dL Hct (37-47) % MCV (80-100) fL MCH (25-34) pg MCHC (32-36) g/dL RDW Std Deviation (36.4-46.3) fL RDW Coeff of Ethel (11.5-14.5) % Plt Count (130-400) K/uL MPV (7.4-10.4) fL Immature Gran % (Auto) % Neut % (Auto) % Lymph % (Auto) % [place] % (Auto) % Eos % (Auto) % Baso % (Auto) % Immature Gran # (Auto) (0.00-0.02) K/uL Neut # (Auto) (1.4-6.5) K/uL Lymph # (Auto) (1.2-3.4) K/uL [place] # (Auto) (0.11-0.59) K/uL Eos # (Auto) (0-0.5) K/uL Baso # (Auto) (0-0.2) K/uL Sodium 136 (136-145) mmol/L Potassium 3.8 (3.5-5.1) mmol/L Chloride 97 L (98-107) mmol/L Carbon Dioxide 24 (21-32) mmol/L Anion Gap 15.0 H (3-11) BUN 10 (7-18) mg/dl Creatinine 0.77 (0.6-1.2) mg/dl Est Cr Clr Drug Dosing Not Reportable Est GFR ( Amer) 102.2 Est GFR (Non-Af Amer) 88.2 BUN/Creatinine Ratio 12.8 (10-20) Glucose 128 H (70-99) mg/dl POC Glucose (70-99) Calcium 9.3 (8.5-10.1) mg/dl Magnesium 2.3 (1.8-2.4) mg/dl Total Bilirubin 0.5 (0.2-1) mg/dl AST 42 H (15-37) U/L ALT 34 (12-78) U/L Alkaline Phosphatase 131 H (45-117) U/L Ammonia (11-32) umol/L Total Creatine Kinase 40 Cancelled (26-192) U/L Total Protein 8.0 (6.4-8.2) gm/dl Albumin 3.8 (3.4-5.0) gm/dl Globulin 4.2 H (2.5-4.0) gm/dl Albumin/Globulin Ratio 0.9 (0.9-2) Lipase 40 L (73-393) U/L TSH 1.270 (0.300-4.500) uIu/ml HCG, Qual Negative (Negative) Urine Color Urine Appearance (Clear) Urine pH (4.5-7.5) Ur Specific [place] (1.000-1.030) Urine Protein (Negative) Urine Glucose (UA) (Negative) Urine Ketones (Negative) Urine Blood (Negative) Urine Nitrite (Negative) Urine Bilirubin (Negative) Urine Urobilinogen (Negative) Ur Leukocyte Esterase (Negative) Urine WBC (Auto) (0-5) /hpf Urine RBC (Auto) (0-4) /hpf U Hyaline Cast (Auto) (0-5) /lpf U Epithel Cells (Auto) (0-5) /lpf Urine Bacteria (Auto) (Negative) Urine Yeast Salicylates (2.8-20) mg/dl Urine Opiates Screen (Neg) Ur Methadone, Qual (Neg) Acetaminophen (10-30) ug/ml Urine Barbiturates (Neg) Ur Phencyclidine (PCP) (Neg) U Amphetamin/Meth Scrn (Neg) MDMA (Ecstasy) Screen (Neg) U Benzodiazepines Scrn (Neg) Ur Cocaine Metabolite (Neg) U Marijuana (THC) Screen (Neg) Ethyl Alcohol mg/dL (0-3) mg/dl 08/12/19 08/12/19 08/12/19 Range/Units 17:05 17:06 17:06 WBC 6.50 (4.8-10.8) K/uL RBC 5.02 (4.2-5.4) M/uL Hgb 15.4 (12.0-16.0) g/dL Hct 43.7 (37-47) % MCV 87.1 (80-100) fL MCH 30.7 (25-34) pg MCHC 35.2 (32-36) g/dL RDW Std Deviation 51.8 H (36.4-46.3) fL RDW Coeff of Ethel 16.2 H (11.5-14.5) % Plt Count 236 (130-400) K/uL MPV 9.3 (7.4-10.4) fL Immature Gran % (Auto) 0.3 % Neut % (Auto) 60.1 % Lymph % (Auto) 33.8 % [place] % (Auto) 4.3 % Eos % (Auto) 0.6 % Baso % (Auto) 0.9 % Immature Gran # (Auto) 0.02 (0.00-0.02) K/uL Neut # (Auto) 3.90 (1.4-6.5) K/uL Lymph # (Auto) 2.20 (1.2-3.4) K/uL [place] # (Auto) 0.28 (0.11-0.59) K/uL Eos # (Auto) 0.04 (0-0.5) K/uL Baso # (Auto) 0.06 (0-0.2) K/uL Sodium (136-145) mmol/L Potassium (3.5-5.1) mmol/L Chloride (98-107) mmol/L Carbon Dioxide (21-32) mmol/L Anion Gap (3-11) BUN (7-18) mg/dl Creatinine (0.6-1.2) mg/dl Est Cr Clr Drug Dosing Est GFR ( Amer) Est GFR (Non-Af Amer) BUN/Creatinine Ratio (10-20) Glucose (70-99) mg/dl POC Glucose (70-99) Calcium (8.5-10.1) mg/dl Magnesium Cancelled (1.8-2.4) mg/dl Total Bilirubin (0.2-1) mg/dl AST (15-37) U/L ALT (12-78) U/L Alkaline Phosphatase (45-117) U/L Ammonia (11-32) umol/L Total Creatine Kinase (26-192) U/L Total Protein (6.4-8.2) gm/dl Albumin (3.4-5.0) gm/dl Globulin (2.5-4.0) gm/dl Albumin/Globulin Ratio (0.9-2) Lipase (73-393) U/L TSH (0.300-4.500) uIu/ml HCG, Qual (Negative) Urine Color Urine Appearance (Clear) Urine pH (4.5-7.5) Ur Specific [place] (1.000-1.030) Urine Protein (Negative) Urine Glucose (UA) (Negative) Urine Ketones (Negative) Urine Blood (Negative) Urine Nitrite (Negative) Urine Bilirubin (Negative) Urine Urobilinogen (Negative) Ur Leukocyte Esterase (Negative) Urine WBC (Auto) (0-5) /hpf Urine RBC (Auto) (0-4) /hpf U Hyaline Cast (Auto) (0-5) /lpf U Epithel Cells (Auto) (0-5) /lpf Urine Bacteria (Auto) (Negative) Urine Yeast Salicylates 2.8 (2.8-20) mg/dl Urine Opiates Screen (Neg) Ur Methadone, Qual (Neg) Acetaminophen < 2 L (10-30) ug/ml Urine Barbiturates (Neg) Ur Phencyclidine (PCP) (Neg) U Amphetamin/Meth Scrn (Neg) MDMA (Ecstasy) Screen (Neg) U Benzodiazepines Scrn (Neg) Ur Cocaine Metabolite (Neg) U Marijuana (THC) Screen (Neg) Ethyl Alcohol mg/dL (0-3) mg/dl 08/12/19 08/12/19 08/12/19 Range/Units 17:06 17:06 20:31 WBC (4.8-10.8) K/uL RBC (4.2-5.4) M/uL Hgb (12.0-16.0) g/dL Hct (37-47) % MCV (80-100) fL MCH (25-34) pg MCHC (32-36) g/dL RDW Std Deviation (36.4-46.3) fL RDW Coeff of Ethel (11.5-14.5) % Plt Count (130-400) K/uL MPV (7.4-10.4) fL Immature Gran % (Auto) % Neut % (Auto) % Lymph % (Auto) % [place] % (Auto) % Eos % (Auto) % Baso % (Auto) % Immature Gran # (Auto) (0.00-0.02) K/uL Neut # (Auto) (1.4-6.5) K/uL Lymph # (Auto) (1.2-3.4) K/uL [place] # (Auto) (0.11-0.59) K/uL Eos # (Auto) (0-0.5) K/uL Baso # (Auto) (0-0.2) K/uL Sodium (136-145) mmol/L Potassium (3.5-5.1) mmol/L Chloride (98-107) mmol/L Carbon Dioxide (21-32) mmol/L Anion Gap (3-11) BUN (7-18) mg/dl Creatinine (0.6-1.2) mg/dl Est Cr Clr Drug Dosing Est GFR ( Amer) Est GFR (Non-Af Amer) BUN/Creatinine Ratio (10-20) Glucose (70-99) mg/dl POC Glucose 166 H (70-99) Calcium (8.5-10.1) mg/dl Magnesium (1.8-2.4) mg/dl Total Bilirubin (0.2-1) mg/dl AST (15-37) U/L ALT (12-78) U/L Alkaline Phosphatase (45-117) U/L Ammonia 22.0 (11-32) umol/L Total Creatine Kinase (26-192) U/L Total Protein (6.4-8.2) gm/dl Albumin (3.4-5.0) gm/dl Globulin (2.5-4.0) gm/dl Albumin/Globulin Ratio (0.9-2) Lipase (73-393) U/L TSH (0.300-4.500) uIu/ml HCG, Qual (Negative) Urine Color Urine Appearance (Clear) Urine pH (4.5-7.5) Ur Specific [place] (1.000-1.030) Urine Protein (Negative) Urine Glucose (UA) (Negative) Urine Ketones (Negative) Urine Blood (Negative) Urine Nitrite (Negative) Urine Bilirubin (Negative) Urine Urobilinogen (Negative) Ur Leukocyte Esterase (Negative) Urine WBC (Auto) (0-5) /hpf Urine RBC (Auto) (0-4) /hpf U Hyaline Cast (Auto) (0-5) /lpf U Epithel Cells (Auto) (0-5) /lpf Urine Bacteria (Auto) (Negative) Urine Yeast Salicylates (2.8-20) mg/dl Urine Opiates Screen (Neg) Ur Methadone, Qual (Neg) Acetaminophen (10-30) ug/ml Urine Barbiturates (Neg) Ur Phencyclidine (PCP) (Neg) U Amphetamin/Meth Scrn (Neg) MDMA (Ecstasy) Screen (Neg) U Benzodiazepines Scrn (Neg) Ur Cocaine Metabolite (Neg) U Marijuana (THC) Screen (Neg) Ethyl Alcohol mg/dL 417.2 H (0-3) mg/dl 08/12/19 08/12/19 Range/Units 23:45 23:45 WBC (4.8-10.8) K/uL RBC (4.2-5.4) M/uL Hgb (12.0-16.0) g/dL Hct (37-47) % MCV (80-100) fL MCH (25-34) pg MCHC (32-36) g/dL RDW Std Deviation (36.4-46.3) fL RDW Coeff of Ethel (11.5-14.5) % Plt Count (130-400) K/uL MPV (7.4-10.4) fL Immature Gran % (Auto) % Neut % (Auto) % Lymph % (Auto) % [place] % (Auto) % Eos % (Auto) % Baso % (Auto) % Immature Gran # (Auto) (0.00-0.02) K/uL Neut # (Auto) (1.4-6.5) K/uL Lymph # (Auto) (1.2-3.4) K/uL [place] # (Auto) (0.11-0.59) K/uL Eos # (Auto) (0-0.5) K/uL Baso # (Auto) (0-0.2) K/uL Sodium (136-145) mmol/L Potassium (3.5-5.1) mmol/L Chloride (98-107) mmol/L Carbon Dioxide (21-32) mmol/L Anion Gap (3-11) BUN (7-18) mg/dl Creatinine (0.6-1.2) mg/dl Est Cr Clr Drug Dosing Est GFR ( Amer) Est GFR (Non-Af Amer) BUN/Creatinine Ratio (10-20) Glucose (70-99) mg/dl POC Glucose (70-99) Calcium (8.5-10.1) mg/dl Magnesium (1.8-2.4) mg/dl Total Bilirubin (0.2-1) mg/dl AST (15-37) U/L ALT (12-78) U/L Alkaline Phosphatase (45-117) U/L Ammonia (11-32) umol/L Total Creatine Kinase (26-192) U/L Total Protein (6.4-8.2) gm/dl Albumin (3.4-5.0) gm/dl Globulin (2.5-4.0) gm/dl Albumin/Globulin Ratio (0.9-2) Lipase (73-393) U/L TSH (0.300-4.500) uIu/ml HCG, Qual (Negative) Urine Color Yellow Urine Appearance Turbid A (Clear) Urine pH 5.5 (4.5-7.5) Ur Specific [place] 1.020 (1.000-1.030) Urine Protein 2+ H (Negative) Urine Glucose (UA) 1+ H (Negative) Urine Ketones 1+ H (Negative) Urine Blood 2+ H (Negative) Urine Nitrite Negative (Negative) Urine Bilirubin Negative (Negative) Urine Urobilinogen Negative (Negative) Ur Leukocyte Esterase 3+ H (Negative) Urine WBC (Auto) >30 H (0-5) /hpf Urine RBC (Auto) 0-4 (0-4) /hpf U Hyaline Cast (Auto) 0 (0-5) /lpf U Epithel Cells (Auto) >30 H (0-5) /lpf Urine Bacteria (Auto) 4+ H (Negative) Urine Yeast Not Reportable Salicylates (2.8-20) mg/dl Urine Opiates Screen Neg (Neg) Ur Methadone, Qual Neg (Neg) Acetaminophen (10-30) ug/ml Urine Barbiturates Neg (Neg) Ur Phencyclidine (PCP) Neg (Neg) U Amphetamin/Meth Scrn Neg (Neg) MDMA (Ecstasy) Screen Neg (Neg) U Benzodiazepines Scrn Neg (Neg) Ur Cocaine Metabolite Neg (Neg) U Marijuana (THC) Screen Neg (Neg) Ethyl Alcohol mg/dL (0-3) mg/dl Imaging Data Radiologist's Impression: Radiology results as stated below per my review and the radiologist's interpretation: CT OF THE CERVICAL SPINE CLINICAL HISTORY: Acute change in mental status. Neck pain. Possible trauma. COMPARISON STUDY: 03/04/2019 CT DOSE: 935.32 mGy.cm TECHNIQUE: CT scan of the cervical spine was performed from the skull base to the thoracic inlet. Images are reviewed in the axial, sagittal, and coronal planes. IV contrast was not administered for this examination. A dose lowering technique was utilized adhering to the principles of ALARA. FINDINGS: The visualized portions of the lung apices reveal no evidence of pneumothorax. The prevertebral soft tissues are normal. No fractures or subluxations are visualized. There are multilevel degenerative changes IMPRESSION: No evidence of acute fracture or traumatic subluxation. Electronically signed by: Blas Schuler M.D. 08/12/2019 6:[address] head/brain wo con CLINICAL HISTORY: Acute change in mental status COMPARISON STUDY: 03/04/2019 TECHNIQUE: Axial CT of the brain is performed from the vertex to the skull base. IV contrast was not administered for this examination. A dose lowering technique was utilized adhering to the principles of ALARA. CT DOSE: FINDINGS: No intra or extra-axial mass lesions are visualized. There is no CT evidence of acute cortical infarction. There is no evidence of midline shift. There is no acute hemorrhage. No calvarial fractures are visualized. There are minimal white matter hypodensities likely on a small vessel basis. There is no evidence of pathologic ventricular dilatation. There is no evidence of acute sinusitis IMPRESSION: No acute intracranial findings Electronically signed by: Blas Schuler M.D. 08/12/2019 6:00 PM XR chest 1V portable CLINICAL HISTORY: Acute change in mental status COMPARISON STUDY: 02/11/2018 FINDINGS: The cardiac and mediastinal contours are normal. There is no evidence of focal pulmonary consolidation. There is no evidence of failure. No pleural effusions are visualized.[There is minor right medial basilar atelectasis/scarring. There are old left-sided rib fractures. IMPRESSION: No active disease in the chest. Electronically signed by: Blas Schuler M.D. 08/12/2019 5:20 PM XR pelvis 1-2V routine CLINICAL HISTORY: Pelvic pain status post trauma COMPARISON: None. DISCUSSION: No fractures or dislocations are visualized. There is no SI joint diastases. There is no symphysis diastases. IMPRESSION: No fractures identified. Electronically signed by: Blas Schuler M.D. 08/12/2019 5:21 PM ECG Data Attestation: I personally reviewed and interpreted this ECG as follows: Indication: + other (overdose) Rate (beats per minute): 104 Rhythm: + sinus rhythm ECG ST segments: no ST depression and no ST elevation ECG Findings: + Other (CO, QRS, and QTC intervals are within normal limits) Blood Pressure Blood Pressure Findings: Elevated blood pressure Blood Pressure Disposition: Referred to patients primary care provider SAMY Narrative Observation note: Indication: Alcohol intoxication Patient, with past medical history of BKA, diabetes, depression, fibromyalgia, was seen in the emergency department for alcohol intoxication, depression, suicidal ideation was first seen at 1650 hrs and the observation time began at 1730 hrs and was necessary in order to determine sobriety and avoid unnecessary admission . 2100: Patient having multiple episodes of vomiting in the emergency department. Multiple rounds of antibiotics given in the emergency department. 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 Case signed out to Dr. Garcia. Patient will be sober at approximately 6 AM. Impression & Plan Alcohol use, Depression Discharge Plan Visit Data Chief Complaint: Mental Health Evaluation Stated Complaint: OVERDOSE, INTENTIONAL ED Provider: Sohan Barcenas Discharge Problem: Alcohol use, Depression Patient Disposition: Still a Patient Forms Stand Alone Forms: [facility], Suicide Prevention Resources Prescriptions Prescriptions: No Action Jardiance 10 mg tablet 10 mg PO DAILY Qty: 30 RF: 5 gabapentin 300 mg capsule 300 mg PO TID Qty: 270 RF: 1 duloxetine 20 mg capsule,delayed release(DR/EC) 20 mg PO DAILY RF: 0 trazodone 50 mg tablet 50 mg PO HS Qty: 30 RF: 5 hydroxyzine pamoate 25 mg capsule 25 mg PO DAILY PRN (Reason: anxiety/itchiness) Qty: 20 RF: 0 ferrous sulfate 325 mg (65 mg iron) tablet,delayed release (DR/EC) 325 mg PO Q OTHER DAY RF: 0 cholecalciferol (vitamin D3) 1,000 unit capsule 1,000 units PO DAILY RF: 0 folic acid 400 mcg tablet 400 mcg PO DAILY RF: 0 vitamin E (dl, acetate) 400 unit capsule 400 units PO DAILY RF: 0 multivitamin tablet 1 tab PO DAILY RF: 0 cyclobenzaprine 10 mg tablet 10 mg PO BID PRN (Reason: muscle spasm) RF: 0 duloxetine [Cymbalta] 60 mg capsule,delayed release(DR/EC) 60 mg PO QAM RF: 0 pantoprazole [Protonix] 40 mg tablet,delayed release (DR/EC) 40 mg PO DAILY PRN (Reason: Acid Reflux) RF: 0 Creon 6,000-19,000 -30,000 unit capsule,delayed release(DR/EC) 1 cap PO TIDM RF: 0 cyanocobalamin (vitamin B-12) [Vitamin B-12] 1,000 mcg Tablet 1,000 mcg PO DAILY RF: 0 Referrals Referrals: Ana Lilia Madrid MD [Primary Care Provider] - The scribe's documentation has been prepared under my direction and personally reviewed by me in its entirety. I confirm that the note above accurately reflects all work, treatment, procedures, and medical decision making performed by me.
[2019-08-13] MEDS ORDERED: DiphenhydrAMINE HCL 50 MG/ML VIAL IV STA (02:56)
[2019-08-13] MEDS ORDERED: LORazepam 1 MG/2 ML VIAL IV STA ×2 (02:56→09:58)
[2019-08-13] MEDS ORDERED: METOCLOPRAMIDE HCL INJ 5 MG/ML 2 ML VIAL IV ONE (02:56)
--- NOTE | 2019-08-13 03:42 | Emergency Department Note ---
ED Visit Note I received this patient in signout at the change of shift from Dr. Barcenas, pending a more sober state for mental health evaluation. Patient was given additional IV Benadryl, IV Ativan and IV Reglan for continued vomiting. Patient was first seen at 1440 in observation began at 1500 and was necessary in order to determine sobriety. Patient did receive additional 2 mg of IV Ativan for persistent tachycardia/alcohol withdrawal. Upon reevaluation, 16 hours of observation revealed that the patient should be medically clear for mental health assessment. Case was signed out to Dr. Umaña at the change of shift pending final disposition. .
[2019-08-13] MEDS ORDERED: LORazepam 2 MG/4 ML VIAL IV STA (05:50)
[2019-08-13] MEDS ORDERED: MULTI-VITAMIN INFUSION 10 ML, THIAMINE HCL 100 MG, FOLIC ACID 1 MG in SODIUM CHLORIDE 0... IV ONE (09:58)
[2019-08-13] MEDS ORDERED: THIAMINE HCL 100 MG in SYRINGE 9 ML IV STA (09:58)
[2019-08-13] MEDS ORDERED: cefTRIAXone SODIUM 2,000 MG/70 ML BAG IV STA (10:00)
--- NOTE | 2019-08-13 10:06 | History & Physical Report ---
Date of Service August 13, 2019 Assessment & Plan (1) Alcohol use: (2) Alcohol withdrawal: (3) Depression: (4) Suicidal ideations: -Admit to [facility] with telemetry -Sinus tachycardic on EKG and at bedside, monitor for signs of alcohol withdrawal -Ativan withdrawal protocol in place -Patient has received Ativan IV times several doses (total of 5 mg IV) since being in the ER overnight for anxiety/withdrawal. At this point the patient tells me that she does not feel diaphoretic, anxious, cardiac palpitations, nauseous or have other symptoms. Patient notes that her main complaint is the phantom pain s/p amputation -Suicidal precautions, one-to-one bedside sitter -Psychiatry evaluation requested while admitted. -States she follows with counselor, Pili, as outpatient however has not seen her in several weeks due to social situations. Patient cannot recall psychiatrist name. -Continue Cymbalta 80 mg daily, trazodone 50 mg HS, hydroxyzine 25 daily prn (5) Liver cirrhosis, alcoholic: -Chronic secondary to EtOH use/abuse (6) Diabetes mellitus type 2 in nonobese: -DM diet - Last A1C in Jun 2019, =7.5, no need to recheck -Hold Jardiance -Monitor glucose with repeat BMP now, has been elevated since admission, no morning meds administered. -ISS with Accu-Cheks ACHS pending results (7) Exocrine pancreatic insufficiency: -Continue Creon 1 P.o. TID (8) Chronic pancreatitis: - Stable, no abdominal complaints, tolerating PO intake at bedside without difficulty (9) Peripheral neuropathy: -Allow gabapentin in hospital setting, threat to overdose prior to arrival was made to overdose on this medication. Psychiatry to eval as above. (10) Psoriasis: - Stable (11) UTI (urinary tract infection): - UA appears infected, await UCx, started on ceftriaxone IV, await sensitivities and transition to p.o. antibiotic as appropriate -No urinary tract symptoms (12) DVT prophylaxis: -teds, ambulatory with nursing supervision CODE: Full Dispo: From home, lives with mother who is currently admitted to our facility, medical clearance prior to possible d/c to psychiatry service pending their eval. Will require close psych follow up as outpatient. History of Present Illness Primary Care Provider: Ana Lilia Madrid,MD This is a 53 yo F with PMHx of anemia, depression, anxiety and alcohol abuse who presented to the ER on 08/12, and was kept overnight due to an elevated ALICE over 400. She was found by EMS yesterday after her mother called 911 because she had not heard from her. Her mother is currently hospitalized here at our facility for other medical reasons. Patient notes that she drank an entire box of wine yesterday, because she wanted to forget about everything and needed a break. She reports she has been in very stressful family situations recently with an impending divorce and court hearings, buying a town home, not being able to drive her own stick shift car due to her recent amputation of the LLE and attempting to sell it, as well as chronic phantom pain from this surgery. She reports yesterday she did vomit and smokes cigarettes occasionally, up to 1 ppd when she is feeling stressed out. She reports that the LLE phantom pain and RLE neuropathy is significant and that nobody will give her pain medication for this. Per ER documentation, EMS report indicated that the patient "just wanted to "and was going to kill herself by drinking ammonia. Documentation also notes that she stated she tried to overdose on gabapentin. The patient is being admitted for alcohol withdrawal as she is tachycardic and has an elevated BP of 150/102. Allergies Allergy/AdvReac Type Severity Reaction Status Date / Time haloperidol [From Haldol] AdvReac Unknown Verified 08/12/19 19:33 Home Medications Home Medications Medication Instructions Recorded Confirmed Type duloxetine 20 mg capsule,delayed 20 mg PO DAILY cap 06/13/19 08/12/19 History release duloxetine 60 mg capsule,delayed 60 mg PO QAM 06/13/19 08/12/19 History release trazodone 50 mg tablet 50 mg PO HS #30 tab 06/18/19 08/12/19 Rx cholecalciferol (vitamin D3) 1,000 1,000 units PO DAILY 06/23/19 08/12/19 History unit capsule cyclobenzaprine 10 mg tablet 10 mg PO BID PRN tab 06/23/19 08/12/19 History ferrous sulfate 325 mg (65 mg 325 mg PO Q OTHER DAY tab 06/23/19 08/12/19 History iron) tablet,delayed release folic acid 400 mcg tablet 400 mcg PO DAILY 06/23/19 08/12/19 History multivitamin tablet 1 tab PO DAILY 06/23/19 08/12/19 History vitamin E (dl, acetate) 400 unit 400 units PO DAILY 06/23/19 08/12/19 History capsule hydroxyzine pamoate 25 mg capsule 25 mg PO DAILY PRN #20 cap 06/24/19 08/12/19 History empagliflozin 10 mg tablet 10 mg PO DAILY #30 tab 06/25/19 08/12/19 Rx gabapentin 300 mg capsule 300 mg PO TID #270 cap 07/19/19 08/12/19 Rx cyanocobalamin (vitamin B-12) 1,000 mcg PO DAILY 08/12/19 08/12/19 History [Vitamin B-12] [id number] [Creon] 1 cap PO TIDM 08/12/19 08/12/19 History pantoprazole [Protonix] 40 mg PO DAILY PRN 08/12/19 08/12/19 History Past Med/Surg History Medical History Abnormal TSH (Acute) Depression with anxiety (Acute) Dizziness (Chronic) Encephalomalacia (Acute) Exocrine pancreatic insufficiency (Acute) IPMN (intraductal papillary mucinous neoplasm) (Acute) Insomnia (Acute) Lipoma (Acute) Liver cirrhosis, alcoholic (Acute) Loose bowel movement (Acute) Peripheral neuropathy (Acute) Psoriasis (Acute) Secondary diabetes mellitus (Acute) Vitamin D deficiency (Acute) Hydrosalpinx Chronic pancreatitis (Chronic) Anxiety (Chronic) HAS UPCOMING LALA WITH PSYCH Chronic pancreatitis (Chronic) Cirrhosis of liver (Chronic) "COMPROMISED LIVER" Depression (Chronic) HAS UPCOMING LALA WITH PSYCH Diabetes mellitus (Chronic) TYPE 2 "SECONDARY" History of alcohol consumption (Chronic) Neuropathy (Chronic) OF FEET Nicotine dependence (Chronic) Pancreatic insufficiency (Chronic) Polycystic ovarian syndrome (Chronic) Alcohol withdrawal seizure (Resolved) NOT REPORTED BY PATIENT AT TIME OF PAT CALL - NOTED IN EMR PREVIOUSLY Bimalleolar ankle fracture (Resolved) Deformity of both feet (Resolved) SBO (small bowel obstruction) (Resolved) Resolving Abnormal TSH Abnormal blood sugar A1C LEVELS FLUCTUATE Bowel habit changes STARTED 1 YR AGO/LOOSE STOOLS AFTER EATING History of dizziness 2 WEEKS AGO, DIZZINESS AND NAUSEA, DENIES FEVER - HAS FULLY RESOLVED/EDU PROVIDED History of fracture TAILBONE - FLARES UP WITH WEATHER CHANGES IPMN (intraductal papillary mucinous neoplasm) Insomnia Lipoma Vitamin D deficiency Surgical History History of ankle surgery 02/2019 left ankle ex fix, grade 2 view with MAC 3 and 7.0 ETT History of tooth extraction No family history of adverse response to anesthesia Family History Other Family history of breast cancer in mother Family history of breast cancer in sister Social History Preferred Language: [place] Communication Ability: Effective Proteomics Scientist Required: No marital status: Current Living Situation: Parent Feels Safe at Home: Yes Safety Concerns: Feels Safe At This Time Smoking Status: Current every day smoker Tobacco Type: cigarettes ; Cigarettes Per Day: 10 ; Second Hand Exposure: Yes ; Tobacco Cessation Education Requested by Patient: No Hx Alcohol Use: Yes Alcohol type: wine Hx Substance Use: No Review of Systems Review of Systems: Constitutional: No fever, sweats or chills Eyes: No diplopia, no worsening or blurred vision ENT: normal hearing, no trouble swallowing Respiratory: No cough, sputum, dyspnea at rest or on exertion Cardiovascular: No chest pain, tightness or palpitations Abdomen: No pain, nausea, vomiting, diarrhea or constipation Musculoskeletal: Pain as per HPI, no calf pain, swelling Neurologic: No weakness, numbness/tingling, + neuropathy as per HPI, phantom pain as per HPI, no balance problems Psychiatric: Hx of anxiety and depression on medication Skin: No rash or itch Physical Exam Physical Exam: General: awake, alert, no apparent distress, + diaphoretic to touch, smells of alcohol Head: Normocephalic, atraumatic ENT: PERRL, EOMI, no pharyngeal exudate, mucous membranes moist Chest: Clear to auscultation, on room air, no adventitious breath sounds Cardiac: Sinus tach, HR = 101 at bedside, no murmur, no JVD, normal peripheral pulses, good capillary refill Abdominal: NABS x 4 quadrants, soft, nontender to palpation, no rebound, guarding or tenderness Extremities: RLE BKA, otherwise no peripheral edema or erythema, L calf nontender to palpation Psych: Depressed mood and dulled affect Neuro: AAO x 3, no gross motor deficits, speech is clear, no peripheral sensory deficits Skin: no rash or erythema Constitutional: WD/WN, vitals as above Eyes: normal visual mcgraw by confrontation and + anicteric sclerae Neck: normal visual inspection and trachea midline Respiratory: normal respiratory effort, lungs clear to auscultation Cardiovascular: Rate/Rhythm: regular rate and regular rhythm Gastrointestinal (Abdomen): Inspection/Auscultation: abdomen not distended Percussion/Palpation: abdomen soft; abdomen nontender Musculoskeletal: Head/Neck/Chest: normocephalic and head atraumatic Neg for peripheral LE edema, + pedal pulses Skin: no rashes, warm and dry Neurologic: awake; not confused Speech / Cognition: normal speech Psychiatric: A+Ox3, euthymic affect Very pleasant and conversant, smiling Lymphatic: Exam as done by Trista Swartz, Results & Data Vital Signs (Past 12 Hours) Vital Signs Pulse Resp BP Pulse Ox 08/13/19 07:27 107 H 20 150/102 H 95 08/13/19 05:02 106 H 16 137/96 95 08/13/19 03:15 113 H 18 128/97 95 08/13/19 01:44 105 H 18 145/84 H 95 08/12/19 22:40 118 H 16 134/97 96 ECG Additional Comments: 12-AUG-2019 17:25:23 [facility]-EDSTAT ROUTINE RETRIEVAL Sinus tachycardia Otherwise normal ECG When compared with ECG of 08-MAR-2019 09:00, No significant change was found 25mm/s 10mm/mV 150Hz 9.0.9 12SL 241 SIDDHARTHA: 3 Referred by: REFERRED SELF Unconfirmed Vent. rate 104 BPM MD interval 134 ms QRS duration 84 ms QT/QTc 352/462 ms P-R-T axes 70 72 75 Code Status & VTE Plan Code Status Full code Supervising Physician Co-Signing Physician Notes Pt seen and examined by me. Denies chest pain or SOB. Tolerating PO without issue. She states she is feeling much better than earlier today. She is hungry and awaiting dinner. Denies UTI sx. Agree with HPI/ROS as noted by PA See above for my exam in PE section Agree with plan as outlined above SI vs SA (unclear) with + EtOH levels on arrival Psych eval pending UA noted, pt is asx Started on ceftriaxone in the ED, will hold pending cx given asx with + leuk est and neg nitrites PG Care Time/CCT Total # of Minutes Spent Total Time Spent with Patient: Total time spent is greater than 50% in coordination of care (as documented) at patient's floor/unit and/or counseling patient:
[2019-08-13] MEDS ORDERED: ONDANSETRON INJ 2 MG/ML 2 ML VIAL IV PRN (10:12)
[2019-08-13] MEDS ORDERED: ACETAMINOPHEN 325 MG TAB PO PRN (10:12)
[2019-08-13] MEDS ORDERED: ATIVAN IV ALCOHOL WITHDRAWL IV SCH (10:15)
[2019-08-13] MEDS ORDERED: LORAZEPAM 1MG IV ACTIVE PROTOCOL IV PRN (11:15)
[2019-08-13] MEDS ORDERED: FOLIC ACID 400 MCG TAB PO SCH (11:15)
[2019-08-13] MEDS ORDERED: MULTIVITAMIN TAB PO SCH (11:15)
[2019-08-13] MEDS ORDERED: LORAZEPAM 2MG IV ACTIVE PROTOCOL IV PRN (11:15)
[2019-08-13] MEDS ORDERED: LORAZEPAM 3MG IV ACTIVE PROTOCOL IV PRN (11:15)
[2019-08-13] MEDS ORDERED: PANTOprazole 40 MG TAB PO PRN (11:17)
[2019-08-13] MEDS ORDERED: CARBOHYDRATES FOR HYPOGLYCEMIA PO PRN (11:17)
[2019-08-13] MEDS ORDERED: GLUCAGON FOR INJ 1 MG VIAL SQ PRN (11:17)
[2019-08-13] MEDS ORDERED: GLUCOSE 40% GEL 15 GM TUBE PO PRN (11:17)
[2019-08-13] MEDS ORDERED: CYCLOBENZAPRINE HCL 10 MG TAB PO PRN (11:17)
[2019-08-13] MEDS ORDERED: DEXTROSE 50% 50 ML SYRINGE IV PRN (11:17)
[2019-08-13] MEDS ORDERED: GLUCOSE 10 TABS/TUBE PO PRN (11:17)
[2019-08-13] MEDS ORDERED: NON-FORMULARY MEDICATION (Empagliflozin [Jardiance] 10 MG) PO SCH (11:17)
[2019-08-13 11:32] LABS: Basophils # (auto) 0.02 K/uL (0-0.2); Basophils % (auto) 0.3 %; Eosinophils # (auto) 0.02 K/uL (0-0.5); Eosinophils % (auto) 0.3 %; Hematocrit (blood only) 39.2 % (37-47); Hemoglobin 13.8 g/dL (12.0-16.0); Lymphocytes # (auto) 0.88 K/uL (1.2-3.4); Lymphocytes % (auto) 12.7 %; Mean Corpuscular Hemoglobin 30.7 pg (25-34); Mean Corpuscular Hgb Conc 35.2 g/dL (32-36); Mean Corpuscular Volume 87.1 fL (80-100); Mean Platelet Volume 9.4 fL (7.4-10.4); Monocytes # (auto) 0.35 K/uL (0.11-0.59); Monocytes % (auto) 5.1 %; Neutrophils # (auto) 5.65 K/uL (1.4-6.5); Neutrophils % (auto) 81.6 %; Platelet Count 154 K/uL (130-400); RDW Coefficient of Variation 15.9 % (11.5-14.5); RDW Standard Deviation 51.5 fL (36.4-46.3); White Blood Count 6.92 K/uL (4.8-10.8)
[2019-08-13 11:47] LABS: BUN Creatinine Ratio 15.6 (10-20); Calcium 9.5 mg/dl (8.5-10.1); Creatinine Clr Calc Pharmacy 74.8 ml/min; Est GFR (African American) 93.3; Est GFR (Non-African American) 80.5; Potassium 3.6 mmol/L (3.5-5.1)
[2019-08-13] MEDS: THIAMINE HCL 100 MG TAB PO SCH (12:36)
[2019-08-13] MEDS: GABAPENTIN 300 MG CAP PO SCH ×2 (12:48→20:09)
[2019-08-13] MEDS: PANCREAZE (LIPASE 10,500U) CAP PO SCH ×2 (12:48→18:09)
[2019-08-13] MEDS: DULOXETINE HCL 20 MG CAP PO SCH (12:48)
[2019-08-13] MEDS ORDERED: DULOXETINE HCL 20 MG CAP PO STA (13:12)
[2019-08-13] MEDS: INSULIN ASPART 100 UNITS/ML 3 ML PEN SC SCH ×3 (14:01→21:43)
--- NOTE | 2019-08-13 15:40 | Psychiatric Consultation ---
Date of Consultation August 13, 2019 Impression / Recommendations Impression 53-year-old female admitted medically on 08/13/18 after being brought to the ED by police with a blood alcohol of 417. It is reported that patient's mother, who is reportedly also admitted to the hospital, had not heard from the patient in a period of time and requested the police perform a wellness check. Patient was found at home, intoxicated, and had reportedly verbalized suicidal ideation with a specific plan. After patient had been declared sober, her blood pressure and pulse are concerning for possible alcohol withdrawal. Patient was admitted medically for continued observation. Psychiatric consultation is requested to evaluate the patient for alcohol withdrawal and depression. She was last seen on our service on 03/16/2019 for similar concerns. Patient has a long history of alcohol abuse, and admits that she had too much to drink last evening due to "just wanting to feel heartbroken about a breakup" and "I needed to uncheck for a day." Patient denies any suicidal or homicidal ideation, stating that she is not having any thoughts to harm herself or end her life. Patient denies any significant symptoms of depression or anxiety, and feels that her current medication regimen has been effective for management of the symptoms. She states that her psychiatric medications are prescribed by her PCP, and that she needs with a therapist on an outpatient basis. We will attempt to see if patient is agreeable to signing a release for her therapist, to gather collateral information. Patient states that her mother expressed initial concern, but is unwilling to sign a release for us to gather collateral from her mother. At this point time, patient feels that there is nothing that we can offer her from a psychiatric standpoint. She is declining inpatient drug and alcohol rehabilitation as well as outpatient D&A counseling. It is unclear if patient is minimizing symptoms or is being entirely truthful with these reports; however, she herself is not verbalizing concerns that would warrant an inpatient psychiatric admission at this time. We will continue to follow and the patient's case, and gather information as able. At this time, there does not seem to be grounds to uphold the 302 warrant, as she is denying SI/HI, A/V hallucinations, and symptoms of acute psychosis. Dr. Franky Rodrigues was directly involved in review and discussion of the patient's case and participated in medical decision making regarding treatment recommendations. Psych History Identifying Data 53-year-old female admitted medically on 08/13/2019 for medical treatment of alcohol withdrawal. Patient had police sent to her home for a wellness check last evening, and was found intoxicated. BAL was 417 in the ED on arrival. Psychiatric consultation is requested to evaluate the patient for alcohol withdrawal and depression. Information is gathered from hospital documentation, 302 petitioning statement, and the patient herself. Chief Complaint "I am doing good. I am just still in a lot of pain." History of Present Illness Gem Chiu is a 53-year-old female admitted medically on 08/13/2019. It is reported that patient's mother is currently hospitalized as well, and when she had not heard from her daughter, she requested a wellness check. Police arrived on the scene, to find the patient intoxicated. It is reported the patient had verbalized suicidal ideation with plan to "drink ammonia." [address] warrant was completed by an officer in order to bring patient for hospital evaluation. Pt was found to be hypertensive and tachycardic in the ED, and was admitted medically due to concern for alcohol withdrawal. Pt was last seen on psychiatric consult service on 03/16/19 for similar concerns. Psychiatric consultation is requested to evaluate patient for alcohol withdrawal and depression. Patient's reliability is unclear, as it is possible she may be minimizing both her alcohol use and the severity of her mental health symptoms. 302 Petitioning statement reads: "On 08/12/2019 @1545 hrs, I was dispatched to check the welfare of Gem Chiu. On scene, I was presented with an intoxicated female on a couch sitting in her own urine and vomit. Apple admitted to drinking alcohol and taking pills as well. Apple stated 4 times she wanted to . When I asked her how she was going to do it, Apple stated, "I'm going to drink ammonia." Apple admitted to not eating for 3 days. Due to her physical state and statement of self-harm, I believe the patient needs treatment." On presentation to the ED, patient's blood alcohol level was 417. Patient is cooperative with psychiatric evaluation, and tells this provider that she is "I am good, just still in a lot of pain." Patient shares with this provider that "I got drunk and my mom called to do a wellness check." The patient states that she was drinking prior to being brought to the hospital, as she had recently broken up with her boyfriend due to his involvement in a "bad court situation, I did it for the kids." Patient states "I just needed to uncheck for a while, let my heart be broken." She denies to this provider intent to harm herself or end her life when she began drinking alcohol. She denies knowledge of any suicidal ideation while intoxicated, and is denying suicidal or homicidal ideation at this time. Patient states that she has had a few stressful situations occur recently. She states that her mother is admitted to the hospital presently, and that she also has been in the middle of a move. Patient states that she bought a house, and is planning to live independently. Patient feels this will be a positive experience for her; however, states that her mood has been somewhat stressful. Patient states she returned to alcohol use in order to "take the edge off, and be able to sleep." Patient states that yesterday was the first time she had consumed alcohol in "several weeks." Patient denies feeling as though her alcohol consumption has been a problem recently, and denies feeling as though any formal drug or alcohol inpatient or outpatient treatment is necessary at this time. Patient states that her family doctor prescribes her medications, and that she meets with a therapist on a routine basis. Patient denies any perceived safety concerns surrounding the idea of returning home after medical clearance. Patient feels that her medications have been working effectively to manage her mood and anxiety, and denies feeling as though adjustments need to be made at this time. Patient states that she takes hydroxyzine for anxiety, "I have not even really needed it." Patient's only physical concern at this time is "phantom limb" pain. Pt denies SI, HI, SIB, A/V hallucinations, paranoia, charan/hypomania, other symptoms more suggestive of a bipolar presentation, OCD, PTSD, eating disorder, and other specific psychiatric symptoms. Past Psychiatric History Current Psychiatric Diagnosis: Alcohol abuse, depression Outpatient Services: Reports seeing a therapist - Pili - at [facility] Previous Psych Admissions: Reportedly has one previous psychiatric admission Allergies Allergy/AdvReac Type Severity Reaction Status Date / Time haloperidol [From Haldol] AdvReac Unknown Verified 08/12/19 19:33 Home Medications Home Medications Medication Instructions Recorded Confirmed Type duloxetine 20 mg capsule,delayed 20 mg PO DAILY cap 06/13/19 08/12/19 History release duloxetine 60 mg capsule,delayed 60 mg PO QAM 06/13/19 08/12/19 History release trazodone 50 mg tablet 50 mg PO HS #30 tab 06/18/19 08/12/19 Rx cholecalciferol (vitamin D3) 1,000 1,000 units PO DAILY 06/23/19 08/12/19 History unit capsule cyclobenzaprine 10 mg tablet 10 mg PO BID PRN tab 06/23/19 08/12/19 History ferrous sulfate 325 mg (65 mg 325 mg PO Q OTHER DAY tab 06/23/19 08/12/19 History iron) tablet,delayed release folic acid 400 mcg tablet 400 mcg PO DAILY 06/23/19 08/12/19 History multivitamin tablet 1 tab PO DAILY 06/23/19 08/12/19 History vitamin E (dl, acetate) 400 unit 400 units PO DAILY 06/23/19 08/12/19 History capsule hydroxyzine pamoate 25 mg capsule 25 mg PO DAILY PRN #20 cap 06/24/19 08/12/19 History empagliflozin 10 mg tablet 10 mg PO DAILY #30 tab 06/25/19 08/12/19 Rx gabapentin 300 mg capsule 300 mg PO TID #270 cap 07/19/19 08/12/19 Rx cyanocobalamin (vitamin B-12) 1,000 mcg PO DAILY 08/12/19 08/12/19 History [Vitamin B-12] [id number] [Creon] 1 cap PO TIDM 08/12/19 08/12/19 History pantoprazole [Protonix] 40 mg PO DAILY PRN 08/12/19 08/12/19 History Substance Abuse History Pt states, prior to last evening, she had not consumed alcohol in several weeks. She reports having consumed a box of wine. States she has not been drinking alcohol routinely. Denies any concerns related to drug or alcohol use Personal History Living Arrangements: Home (living with mother, stating she is moving soon) Employment Status: Disabled Marital Status: Single Patient History Medical History Abnormal TSH (Acute) Depression with anxiety (Acute) Dizziness (Chronic) Encephalomalacia (Acute) Exocrine pancreatic insufficiency (Acute) IPMN (intraductal papillary mucinous neoplasm) (Acute) Insomnia (Acute) Lipoma (Acute) Liver cirrhosis, alcoholic (Acute) Loose bowel movement (Acute) Peripheral neuropathy (Acute) Psoriasis (Acute) Secondary diabetes mellitus (Acute) Vitamin D deficiency (Acute) Hydrosalpinx Chronic pancreatitis (Chronic) Anxiety (Chronic) HAS UPCOMING LALA WITH PSYCH Chronic pancreatitis (Chronic) Cirrhosis of liver (Chronic) "COMPROMISED LIVER" Depression (Chronic) HAS UPCOMING LALA WITH PSYCH Diabetes mellitus (Chronic) TYPE 2 "SECONDARY" History of alcohol consumption (Chronic) Neuropathy (Chronic) OF FEET Nicotine dependence (Chronic) Pancreatic insufficiency (Chronic) Polycystic ovarian syndrome (Chronic) Alcohol withdrawal seizure (Resolved) NOT REPORTED BY PATIENT AT TIME OF PAT CALL - NOTED IN EMR PREVIOUSLY Bimalleolar ankle fracture (Resolved) Deformity of both feet (Resolved) SBO (small bowel obstruction) (Resolved) Resolving Abnormal TSH Abnormal blood sugar A1C LEVELS FLUCTUATE Bowel habit changes STARTED 1 YR AGO/LOOSE STOOLS AFTER EATING History of dizziness 2 WEEKS AGO, DIZZINESS AND NAUSEA, DENIES FEVER - HAS FULLY RESOLVED/EDU PROVIDED History of fracture TAILBONE - FLARES UP WITH WEATHER CHANGES IPMN (intraductal papillary mucinous neoplasm) Insomnia Lipoma Vitamin D deficiency Surgical History History of ankle surgery 02/2019 left ankle ex fix, grade 2 view with MAC 3 and 7.0 ETT History of tooth extraction No family history of adverse response to anesthesia Family History Other Family history of breast cancer in mother Family history of breast cancer in sister Social History Preferred Language: Bermudian Communication Ability: Effective Reference Services Head Required: No marital status: Current Living Situation: Parent Feels Safe at Home: Yes Safety Concerns: Feels Safe At This Time Smoking Status: Current every day smoker Tobacco Type: cigarettes ; Cigarettes Per Day: 10 ; Second Hand Exposure: Yes ; Tobacco Cessation Education Requested by Patient: No Hx Alcohol Use: Yes Alcohol type: wine Hx Substance Use: No Physical Exam Psychiatric: Orientation: alert, oriented x 3 and cooperative (Superficially) Apperance: appropriately dressed (Wearing hospital gown), + disheveled and appeared stated age; + inappropriately groomed (Hair appears greasy and messy) Eye Contact: good eye contact Motor Behavior: no abnormal motor movements (Observed while laying in bed) Speech: normal rate/rhythm/volume of speech (Pleasant tone) Affect: + blunted affect (But smiling appropriately at times, appearing superficially pleasant) Mood: no depressed mood and no anxious mood "I have been fine, it was a breakup. I just needed a chance to be a little sad." Thought Process: goal directed thought process, clear/coherent thought process and thought association intact Thought Content: reality based without delusions; no hopelessness and no worthlessness Suicidal Thoughts: denies suicidal thoughts, denies suicidal plan and denies suicidal intent Homicidal Thoughts: denies homicidal thoughts Hallucinations: no auditory hallucinations and no visual hallucinations Cognition: remote memory grossly intact, attention grossly intact and language grossly intact Insight: + fair insight Judgement: + fair judgement Vital Signs (Past 24 Hours): Last Vital Signs Temp 37.1 C 08/13/19 12:06 Pulse 110 H 08/13/19 13:36 Resp 20 08/13/19 13:36 BP 140/67 08/13/19 13:36 Pulse Ox 95 08/13/19 13:36 Review of Systems Constitutional: denied Cardiovascular: denied Respiratory: denied Gastrointestinal: denied Neurological: reporting "phantom limb" pain of amputated left leg Psychiatric: denies symptoms other than stated above Total of at least 10 systems reviewed, pertinent positives as above and in HPI. Results & Data Medications Administered Lipase/Protease/Amylase (Pancreaze (Lipase 10,500u)) 1 cap PO TIDM [facility] Stop: 09/12/19 11:59 Last Admin: 08/13/19 12:48 Dose: 1 cap Documented by: [id number] Duloxetine HCl (Cymbalta) 20 mg PO DAILY@1400 ARPIT Stop: 09/12/19 13:59 Last Admin: 08/13/19 12:48 Dose: 20 mg Documented by: [id number] Gabapentin (Neurontin) 300 mg PO TID [facility] Stop: 09/12/19 13:59 Last Admin: 08/13/19 12:48 Dose: 300 mg Documented by: [id number] Insulin Aspart (Novolog Flexpen) 0 units SC ACHS [facility] Stop: 09/12/19 11:29 Last Admin: 08/13/19 14:01 Dose: Not Given Documented by: [id number] Cosigned by: [id number] Thiamine HCl (Vitamin B-1) 100 mg PO [facility] Stop: 09/12/19 11:14 Last Admin: 08/13/19 12:36 Dose: 100 mg Documented by: [id number] Coding Level of Care Code 76687 [facility] [[email or web address]] Intl Hosp Care Lvl 2
[2019-08-13] MEDS ORDERED: TRAZODONE HCL 50 MG TAB PO SCH (21:00)
[2019-08-13] MEDS ORDERED: IBUPROFEN 200 MG TAB PO PRN (21:33)
--- NOTE | 2019-08-14 03:03 | Emergency Department Note ---
ED Visit Note The patient was taken in signout from Radha at the change of shift. Patient was seen initially by Dr. Barcenas. Please see that note for details. The patient was pending clinical sobriety for psychiatry evaluation and placement for suicidal statements. However, patient was evaluated by 3s and concerned for high risk of etoh withdrawal. Recommending medical admission for stabilization of etoh withdrawal prior to psychiatric evaluation/treatment. Case was discussed with ALEJANDRINA Benavides PAC, who will evaluate the patient for admission. .
[2019-08-14 06:15] LABS: Hematocrit (blood only) 38.1 % (37-47); Hemoglobin 12.7 g/dL (12.0-16.0); Mean Corpuscular Hemoglobin 30.1 pg (25-34); Mean Corpuscular Hgb Conc 33.3 g/dL (32-36); Mean Corpuscular Volume 90.3 fL (80-100); Mean Platelet Volume 10.2 fL (7.4-10.4); Platelet Count 121 K/uL (130-400); RDW Coefficient of Variation 15.7 % (11.5-14.5); RDW Standard Deviation 51.8 fL (36.4-46.3); Red Blood Count 4.22 M/uL (4.2-5.4); White Blood Count 3.81 K/uL (4.8-10.8)
[2019-08-14 06:44] LABS: Albumin Level 3.2 gm/dl (3.4-5.0); BUN Creatinine Ratio 17.2 (10-20); Calcium 9.2 mg/dl (8.5-10.1); Est GFR (African American) 84.6; Potassium 3.6 mmol/L (3.5-5.1)
[2019-08-14 06:52] LABS: Albumin Globulin Ratio 0.9 (0.9-2); Globulin 3.6 gm/dl (2.5-4.0); Total Protein 6.8 gm/dl (6.4-8.2)
[2019-08-14] MEDS: GABAPENTIN 300 MG CAP PO SCH ×2 (07:54→14:03)
[2019-08-14] MEDS: THIAMINE HCL 100 MG TAB PO SCH (07:54)
[2019-08-14] MEDS: PANCREAZE (LIPASE 10,500U) CAP PO SCH ×2 (07:54→12:11)
[2019-08-14] MEDS: INSULIN ASPART 100 UNITS/ML 3 ML PEN SC SCH ×2 (07:59→12:11)
[2019-08-14] MEDS ORDERED: CYANOCOBALAMIN 500 MCG TABLET (VITAMIN B-12) PO SCH (09:00)
[2019-08-14] MEDS ORDERED: DULOXETINE HCL 60 MG CAP PO SCH (09:00)
[2019-08-14] MEDS ORDERED: CHOLECALCIFEROL 1,000 UNITS TAB PO SCH (09:00)
[2019-08-14] MEDS ORDERED: TOCOPHERYL, DL-ALPHA 400 UNITS CAP PO SCH (09:00)
[2019-08-14] MEDS ORDERED: MULTIVITAMIN TAB PO SCH (09:00)
[2019-08-14] MEDS ORDERED: EMPAGLIFLOZIN PO SCH (09:00)
[2019-08-14] MEDS ORDERED: FOLIC ACID 400 MCG TAB PO SCH (09:00)
[2019-08-14] MEDS ORDERED: FERROUS SULFATE 325 MG TAB PO SCH (09:00)
[2019-08-14 12:19] VITALS: BP 145/94; PULSE 98; TEMP 98.2; O2SAT 97
[2019-08-14] MEDS: DULOXETINE HCL 20 MG CAP PO SCH (14:03)
--- NOTE | 2019-08-14 20:16 | Discharge Summary ---
Date of Service August 14, 2019 Admission HPI Per Admitting Provider Gem Chiu is a 53-year-old female admitted medically on 08/13/2019. It is reported that patient's mother is currently hospitalized as well, and when she had not heard from her daughter, she requested a wellness check. Police arrived on the scene, to find the patient intoxicated. It is reported the patient had verbalized suicidal ideation with plan to "drink ammonia." [address] warrant was completed by an officer in order to bring patient for hospital evaluation. Pt was found to be hypertensive and tachycardic in the ED, and was admitted medically due to concern for alcohol withdrawal. Pt was last seen on psychiatric consult service on 03/16/19 for similar concerns. Psychiatric consultation is requested to evaluate patient for alcohol withdrawal and depression. Patient's reliability is unclear, as it is possible she may be minimizing both her alcohol use and the severity of her mental health symptoms. 302 Petitioning statement reads: "On 08/12/2019 @1545 hrs, I was dispatched to check the welfare of Gem Chiu. On scene, I was presented with an intoxicated female on a couch sitting in her own urine and vomit. Apple admitted to drinking alcohol and taking pills as well. Apple stated 4 times she wanted to . When I asked her how she was going to do it, Apple stated, "I'm going to drink ammonia." Apple admitted to not eating for 3 days. Due to her physical state and statement of self-harm, I believe the patient needs treatment." On presentation to the ED, patient's blood alcohol level was 417. Patient is cooperative with psychiatric evaluation, and tells this provider that she is "I am good, just still in a lot of pain." Patient shares with this provider that "I got drunk and my mom called to do a wellness check." The patient states that she was drinking prior to being brought to the hospital, as she had recently broken up with her boyfriend due to his involvement in a "bad court situation, I did it for the kids." Patient states "I just needed to uncheck for a while, let my heart be broken." She denies to this provider intent to harm herself or end her life when she began drinking alcohol. She denies knowledge of any suicidal ideation while intoxicated, and is denying suicidal or homicidal ideation at this time. Patient states that she has had a few stressful situations occur recently. She states that her mother is admitted to the hospital presently, and that she also has been in the middle of a move. Patient states that she bought a house, and is planning to live independently. Patient feels this will be a positive experience for her; however, states that her mood has been somewhat stressful. Patient states she returned to alcohol use in order to "take the edge off, and be able to sleep." Patient states that yesterday was the first time she had consumed alcohol in "several weeks." Patient denies feeling as though her alcohol consumption has been a problem recently, and denies feeling as though any formal drug or alcohol inpatient or outpatient treatment is necessary at this time. Patient states that her family doctor prescribes her medications, and that she meets with a therapist on a rout ine basis. Patient denies any perceived safety concerns surrounding the idea of returning home after medical clearance. Patient feels that her medications have been working effectively to manage her mood and anxiety, and denies feeling as though adjustments need to be made at this time. Patient states that she takes hydroxyzine for anxiety, "I have not even really needed it." Patient's only ph ysical concern at this time is "phantom limb" pain. Pt denies SI, HI, SIB, A/V hallucinations, paranoia, charan/hypomania, other symptoms more suggestive of a bipolar presentation, OCD, PTSD, eating disorder, and other specific psychiatric symptoms. Admission Exam Per Admitting Provider Physical Exam: General: awake, alert, no apparent distress, + diaphoretic to touch, smells of alcohol Head: Normocephalic, atraumatic ENT: PERRL, EOMI, no pharyngeal exudate, mucous membranes moist Chest: Clear to auscultation, on room air, no adventitious breath sounds Cardiac: Sinus tach, HR = 101 at bedside, no murmur, no JVD, normal peripheral pulses, good capillary refill Abdominal: NABS x 4 quadrants, soft, nontender to palpation, no rebound, guarding or tenderness Extremities: RLE BKA, otherwise no peripheral edema or erythema, L calf nontender to palpation Psych: Depressed mood and dulled affect Neuro: AAO x 3, no gross motor deficits, speech is clear, no peripheral sensory deficits Skin: no rash or erythema Constitutional: WD/WN, vitals as above Eyes: normal visual mcgraw by confrontation and + anicteric sclerae Neck: normal visual inspection and trachea midline Respiratory: normal respiratory effort, lungs clear to auscultation Cardiovascular: Rate/Rhythm: regular rate and regular rhythm Gastrointestinal (Abdomen): Inspection/Auscultation: abdomen not distended Percussion/Palpation: abdomen soft; abdomen nontender Musculoskeletal: Head/Neck/Chest: normocephalic and head atraumatic Neg for peripheral LE edema, + pedal pulses Skin: no rashes, warm and dry Neurologic: awake; not confused Speech / Cognition: normal speech Psychiatric: A+Ox3, euthymic affect Very pleasant and conversant, smiling Principal Diagnosis Alcohol use Alcohol withdrawal Depression Suicidal ideation liver cirrhosis exocrine pancreatic insufficiency chronic pancreatitis Peripheral neuropathy Psoraisis Discharge Exam Constitutional: lying in bed, NAD Neuro: Alert and oriented CV: RRR, s1 s2 nl, no m/r/g Resp: CTAB Abd: soft nTTP, +BS Skin: w/d/i Ext: left leg amputation well healed scar Discharge Data Allergies Allergy/AdvReac Type Severity Reaction Status Date / Time haloperidol [From Haldol] AdvReac Unknown Verified 08/12/19 19:33 Consultations 08/13/19 10:00 ED Decision to Admit Stat 08/13/19 10:13 Consult Case Management - Discharge Planning Routine Consult Psychiatry Routine 08/13/19 13:53 Consult Behavioral Health Liaison Routine Ordered Studies 08/12/19 16:55 CT head/brain wo con Stat No intra or extra-axial mass lesions are visualized. There is no CT evidence of acute cortical infarction. There is no evidence of midline shift. There is no acute hemorrhage. No calvarial fractures are visualized. There are minimal white matter hypodensities likely on a small vessel basis. There is no evidence of pathologic ventricular dilatation. There is no evidence of acute sinusitis IMPRESSION: No evidence of acute intracranial abnormalities. 08/12/19 16:56 CT cervical spine wo con Stat FINDINGS: The visualized portions of the lung apices reveal no evidence of pneumothorax. The prevertebral soft tissues are normal. No fractures or subluxations are visualized. There are multilevel degenerative changes IMPRESSION: No evidence of acute fracture or traumatic subluxation. Hospital Course (1) Suicidal ideations: 53 yo F w/ PMHx. anemia, depression, anxiety, alcohol abuse with ALICE >400 and suicidal ideation with a plan Suicidal ideation with a plan - While intoxicated the patient was asked by the officer who came to her house if she had a plan for suicide and she disclosed that she was going to drink ammonia. - [address], initiated by campus police officer responding to wellness check request - Patient was not suicidal while inpatient as explained to the psychiatric team: Patient has a long history of alcohol abuse, and admits that she had too much to drink last evening due to "just wanting to feel heartbroken about a breakup" and "I needed to uncheck for a day." Patient denies any suicidal or homicidal ideation, stating that she is not having any thoughts to harm herself or end her life. Patient denies any significant symptoms of depression or anxiety, and feels that her current medication regimen has been effective for management of the symptoms. - Patient is followed by her PCP and has outpatient therapist. - Follow up with outpatient therapist 08/19 Alcohol use disorder - patient has liver cirrhosis and chronic pancreatitis likely 2/2 chronic alcohol use disorder - The Ativan protocol was in place for the patient when they were admitted - On day of discharge, AWSS scores 1 and 0. Did not require ativan and was no longer in active withdrawal. Diabetes mellitus type II - A1c 7.5 in June - home empagliflozin held while admitted. Blood sugars well controlled here. Restart empagliflozin on discharge. Psoriasis - patient had active lesions on her head - discussed outpatient evaluation and treatment with dermatology given that she has failed multiple topical treatments, contact information given for local dermatology practices. (2) Depression with anxiety: (3) Alcohol use: (4) Alcohol withdrawal: (5) UTI (urinary tract infection): (6) DVT prophylaxis: (7) Diabetes mellitus type 2 in nonobese: (8) Liver cirrhosis, alcoholic: (9) Peripheral neuropathy: (10) Psoriasis: Total Time Total Time Spent Total Time Spent (In Minutes): Discharge Plan Discharge Items Patient Disposition: Home - Self-Care Reason For Visit: ALCOHOL WITHDRAWL Discharge Diagnosis: Alcohol use disorder Activity: Per Instructions section Non-emergency contact: Primary Care Provider Call non-emergency contact if: your symptoms worsen Follow-up/Referrals: Ana Lilia Madrid MD [Primary Care Provider] - Diet: Regular Addtl Attending Provider Instructions: You were admitted to the hospital for excessive drinking and suicidal ideation. While you were in the hospital we monitored to ensure you were not suffering from withdrawal from alcohol. You did not think that inpatient or outpatient therapy was needed at this time. If you feel that you need inpatient or outpatient alcohol treatment it will be important to address this with either your primary care doctor or your therapist. We believe that you should cut down on your alcohol intake, or ideally quit drinking as you are causing serious terminal press operator damage to your body, specifically your liver. While in the hospital you were evaluated by psychiatry, they discussed with you options to address your suicidal ideations. You had stated that you were having a lot of stress including a recent breakup and a move. You would like to continue to follow up with your PCP and therapist in [place] and we support you in doing this. It will be important to see your therapist as soon as possible to address the stresses that you were experiencing and develop a strategy to help you cope. You stated that you have a strong support system and we encourage for you to reach out to those who you feel support you and to come to your PCP, therapist, or the ER if you need to be evaluated further for thoughts of hurting yourself. There are no changes that we made during your hospitalization. You had asked about outpatient Dermatology in the area. The following are numbers to several local Dermatology clinics: - [facility] - [facility] - [facility] You can schedule with them to further evaluate and treat you psoriasis. Return precautions include if you are experiencing thoughts of hurting your self or others. If have any thoughts of suicide you need to return to the emergency room to be evaluated. Pending Studies at Discharge: Yes Studies:: urine culture Stand-Alone Forms: My [facility] [employer]ro[employer], Smoking Cessation, Suicide Prevention Resources Medications and DC Order Prescriptions: Continued Jardiance 10 mg tablet 10 mg PO DAILY Qty: 30 RF: 5 gabapentin 300 mg capsule 300 mg PO TID Qty: 270 RF: 1 duloxetine 20 mg capsule,delayed release(DR/EC) 20 mg PO DAILY RF: 0 trazodone 50 mg tablet 50 mg PO HS Qty: 30 RF: 5 hydroxyzine pamoate 25 mg capsule 25 mg PO DAILY PRN (Reason: anxiety/itchiness) Qty: 20 RF: 0 ferrous sulfate 325 mg (65 mg iron) tablet,delayed release (DR/EC) 325 mg PO Q OTHER DAY RF: 0 cholecalciferol (vitamin D3) 1,000 unit capsule 1,000 units PO DAILY RF: 0 folic acid 400 mcg tablet 400 mcg PO DAILY RF: 0 vitamin E (dl, acetate) 400 unit capsule 400 units PO DAILY RF: 0 multivitamin tablet 1 tab PO DAILY RF: 0 cyclobenzaprine 10 mg tablet 10 mg PO BID PRN (Reason: muscle spasm) RF: 0 duloxetine [Cymbalta] 60 mg capsule,delayed release(DR/EC) 60 mg PO QAM RF: 0 pantoprazole [Protonix] 40 mg tablet,delayed release (DR/EC) 40 mg PO DAILY PRN (Reason: Acid Reflux) RF: 0 Creon 6,000-19,000 -30,000 unit capsule,delayed release(DR/EC) 1 cap PO TIDM RF: 0 cyanocobalamin (vitamin B-12) [Vitamin B-12] 1,000 mcg Tablet 1,000 mcg PO DAILY RF: 0 Discharge Orders: Discharge Order (Routine); Ordered 08/14/19 Ordered By: Jameel Pope Admission Data Admit Date/Time: 08/13/19 10:12 Attending Provider: Love Jay Admit Provider: Trista Swartz Primary Care Provider: Ana Lilia Madrid V. Other Providers: Evelia George ; Trsita Swartz Other Interventions: Discharge Summary Assessment (RN) Last Done: 08/14/19 15:46 DC Date/Time DO NOT enter until pt leaves facility: 08/14/19 17:28 Supervising Physician Co-Signing Physician Notes Patient seen and examined with PGY-1 Dr. Boyer. Agree with history, exam findings, assessment and plan of care as outlined. In brief, Ms. Chiu is a 53 year old female with hx of alcohol use, chronic pancreatic insufficiency, DM, liver cirrhosis, peripheral neuropathy, depression, and anxiety admitted with ETOH intoxication and suicidal ideation. 302 initiated by campus police officer who responded to wellness check requested by patient's mother. On day of discharge, she does not endorse SI and is not actively withdrawing from ETOH. She was seen and evaluated by psych liaison. Does not require inpatient psychiatric treatment. She has an appt with therapist on . Her chronic issues were stable. Home medications continued. Follow up with PCP within 1-2 weeks. 45 minutes spent discharge planning/coordinating care for this patient. Resident Activity Tracking Resident Involvement: Resident Care Provided Care Provided: [facility]
== END 2019-08-14 17:28 | disposition home or self-care (01) | DRG 897 ==
LOC: ED 16:31 → 2N 08-13 10:12 → SUATTDRO 08-13 10:12 → 2N 08-13 10:48

== ENCOUNTER 2019-12-27 13:22 | Inpatient (IN) ==
[2019-12-27] MEDS ORDERED: ONDANSETRON INJ 2 MG/ML 2 ML VIAL IV STA (13:43)
[2019-12-27] MEDS ORDERED: SODIUM CHLORIDE 0.9% 1000ML 1,000 ML IV SCH (13:45)
--- NOTE | 2019-12-27 13:56 | Emergency Department Note ---
ED Provider Note NAME: NANCY CORREA AGE: 54 SEX: F : 1965 ARRIVES VIA: Ambulance INFORMANT: [Patient][ems] ED PROVIDER(S): [Lauro Porter MD] CHIEF COMPLAINT: Confusion HISTORY OF PRESENT ILLNESS: The patient is a 54-year-old female who presents by EMS for confusion. She was last seen 2 days ago. She does carry a history of alcoholism. She was found slumped over and was confused. The patient denies any pain, she complains of being thirsty. She denies being short of breath. No further history obtainable as the patient is a very poor historian and appears to have an altered mental state. REVIEW OF SYSTEMS: Unobtainable given the mental state. PMHx/PSHx: See Below SOCIAL HISTORY: See Below. PHYSICAL EXAM: GENERAL: Patient is in mild distress. HEENT: No acute trauma, normocephalic atraumatic, mucous membranes dry, there is some dark vomitus on the left side of her mouth, no nasal congestion, no scleral icterus. NECK: No stridor, no adenopathy, no meningismus, trachea is midline. LUNGS: Clear to auscultation bilaterally, no wheeze, no rhonchi, breath sounds equal. HEART: Mildly tachycardic, regular rhythm, no murmur. ABDOMEN: Soft, nontender, bowel sounds positive, no hernias, no peritonitis. EXTREMITIES: No cyanosis or edema, left below the knee amputation. No evidence for gross deformities to any of the extremities. NEUROLOGIC: Confused, awake, does follow some simple commands and is able to answer some simple questions. Moves all extremities. SKIN: No rash, no jaundice, no diaphoresis. Pale. DIFFERENTIAL DIAGNOSIS: Infection, dehydration, metabolic abnormality, hypo/hyperglycemia, electrolyte disturbance, anemia, hypoxia, cardiac sources, intracerebral event, toxicologic, neurologic, as well as other pathologies. EMERGENCY DEPARTMENT COURSE/PROCEDURES: ECG: Indication is confusion and possible syncope. EKG shows a sinus tachycardia with a rate of 109. The QTc is 511. There is some artifact present. No ST elevation, no PVCs. Continuous Cardiac Monitoring: An order was placed for continuous cardiac monitoring. The monitor shows a rate of 102 with sinus tachycardia. Critical Care Note: I have personally spent greater than 54 minutes of critical care time in the direct management of this patient. This includes bedside care, interpretation of diagnostic studies, and testing, discussion with consultants, patient, and family members, and other required patient management activities. This 54 minutes is in excess of all separately billable procedures. MEDICAL DECISION MAKING: There is a moderate leukocytosis, this could be consistent with infection or just the stress of her presentation. There is a normal hemoglobin. Platelet count is normal. No coagulopathy. ABG shows a metabolic acidosis with a pH of 7.12. Bicarb was 4. Renal panel testing shows a low sodium, low potassium, low CO2. She has a blood sugar elevated 830. Creatinine is high at 1.73 consistent with dehydration. Lactic acid level is still pending. There were a few subtle liver enzyme elevations. Total CK was only 239, no significant rhabdomyolysis. The patient appeared to be in a euthyroid state. Alcohol level was undetectable. EKG showed a sinus tachycardia, no acute ischemia. Cardiac enzyme testing x1 is not consistent with acute cardiac injury. Urinalysis is pending. Brain CT shows no acute bleed or mass-effect. Chest film shows a possible pneumonia versus some atelectasis. The patient presents dehydrated, she has been vomiting. She was confused, she was tachycardic. The patient was aggressively managed. She received IV saline, 1 L. She was given 1 L of IV lactated Ringer's. She was given oral potassium, 2 bags of potassium were given IV. She received IV Zofran for nausea, she was given IV Zosyn as antibiotic coverage. The patient is in need of a hospital stay. She is quite ill. I did speak with the ICU attending, I spoke with case management. I talked to the patient about the need for a hospital stay. The on-call hospitalist has been consulted. In short, the patient has a metabolic acidosis, she is quite dehydrated. She has multiple electrolyte abnormalities that require correction. She may have a pneumonia. The mental status change is from her metabolic abnormalities. Impression & Plan Metabolic acidosis, Acute hyperglycemia, Hypokalemia, Altered mental status, Acute dehydration, Vomiting Past Med/Surg History Medical History Abnormal blood sugar A1C LEVELS FLUCTUATE Abnormal TSH Alcohol intoxication (Inactive) RESOLVED PER PATIENT Alcohol withdrawal seizure (Resolved) NOT REPORTED BY PATIENT AT TIME OF PAT CALL - LAST EPISODE OVER A YEAR AGO Anxiety (Chronic) Unable to establish regular follow-up with psychiatry Bimalleolar ankle fracture (Resolved) Bowel habit changes RESOLVED Chronic pancreatitis (Chronic) Cirrhosis of liver (Chronic) "COMPROMISED LIVER" Depression (Chronic) Unable to establish regular follow-up with psychiatry Diabetes mellitus (Chronic) TYPE 2 "SECONDARY" Encephalomalacia (Acute) Exocrine pancreatic insufficiency (Acute) History of alcohol consumption (Chronic) History of dizziness NOT CURRENTLY History of fracture TAILBONE - FLARES UP WITH WEATHER CHANGES Hydrosalpinx PT UNAWARE Hypothyroidism told this 10 yrs ago> no meds Insomnia IPMN (intraductal papillary mucinous neoplasm) Lipoma NECK Liver cirrhosis, alcoholic (Acute) Nausea & vomiting (Inactive) RESOLVED Neuropathy (Chronic) OF FOOT Nicotine dependence (Chronic) Pancreatic insufficiency (Chronic) Peripheral neuropathy (Acute) RESOLVING PER PATIENT Polycystic ovarian syndrome (Chronic) Psoriasis (Acute) SBO (small bowel obstruction) (Resolved) Resolved Vitamin D deficiency Surgical History Amputation of left lower extremity TO APPROX MID CALF History of ankle surgery 02/2019 left ankle ex fix, grade 2 view with MAC 3 and 7.0 ETT History of tooth extraction Family History Uncle Diabetes Mother Breast cancer Sister Breast cancer Father Prostate cancer Other Family history of breast cancer in mother Family history of breast cancer in sister Denies family history of Ovarian cancer Myocardial infarction Colorectal cancer Social History Preferred Language: Uzbek Communication Ability: Effective Visual Impairment: No Limitations Contract Negotiation Manager Required: No Beliefs That Will Affect Care: None marital status: Current Living Situation: Alone Feels Safe at Home: Yes Smoking Status: Current every day smoker Tobacco Type: cigarettes ; packs per day: 0.75 ; Cigarettes Per Day: 15 CIGS PER DAY ; Second Hand Exposure: Yes ; Hx Alcohol Use: Yes Alcohol type: wine Hx Substance Use: No Results & Data (ED) Vital Signs Vital Signs - 24 hr 12/27/19 13:30 12/27/19 13:56 12/27/19 14:16 Temperature 36.8 C Temperature Source Rectal Pulse Rate 110 H Pulse Rate [Finger] 109 H Respiratory Rate 21 26 H Respiratory Effort / Characteristics Non-Labored Respiratory Depth Normal Blood Pressure 114/94 Blood Pressure [Right Arm] 106/72 Blood Pressure Mean 100 Blood Pressure Mean [Right Arm] 83 Pulse Oximetry 100 100 100 Oxygen Delivery Method Room Air Room Air Room Air Sepsis Recent Fever Within 48 Hours No Sepsis New/Unexplained Change in Mental Status No Sepsis Action Taken by Nursing No Action Required 12/27/19 15:00 12/27/19 15:16 12/27/19 16:00 Temperature Temperature Source Pulse Rate Pulse Rate [Finger] 106 H 106 H 102 H Respiratory Rate 30 H 26 H 20 Respiratory Effort / Characteristics Non-Labored Respiratory Depth Normal Blood Pressure Blood Pressure [Right Arm] 121/86 115/89 119/86 Blood Pressure Mean Blood Pressure Mean [Right Arm] 97 97 97 Pulse Oximetry 100 100 100 Oxygen Delivery Method Room Air Room Air Sepsis Recent Fever Within 48 Hours Sepsis New/Unexplained Change in Mental Status Sepsis Action Taken by Assisted Medications Current Medication List: was personally reviewed by me Laboratory Data Attestation: I reviewed the patient's lab results. Result diagrams: 12/27/19 13:53 12/27/19 13:53 Lab Results 12/27/19 12/27/19 12/27/19 Range/Units 13:53 13:53 13:53 WBC 14.11 H (4.8-10.8) K/uL RBC 4.15 L (4.2-5.4) M/uL Hgb 13.1 (12.0-16.0) g/dL Hct 39.8 (37-47) % MCV 95.9 (80-100) fL MCH 31.6 (25-34) pg MCHC 32.9 (32-36) g/dL RDW Std Deviation 47.2 H (36.4-46.3) fL RDW Coeff of Ethel 13.4 (11.5-14.5) % Plt Count 235 (130-400) K/uL MPV 10.2 (7.4-10.4) fL Immature Gran % (Auto) 0.4 % Neut % (Auto) 90.8 % Lymph % (Auto) 2.6 % Preble % (Auto) 6.1 % Eos % (Auto) 0.0 % Baso % (Auto) 0.1 % Immature Gran # (Auto) 0.05 H (0.00-0.02) K/uL Neut # (Auto) 12.83 H (1.4-6.5) K/uL Lymph # (Auto) 0.36 L (1.2-3.4) K/uL Preble # (Auto) 0.86 H (0.11-0.59) K/uL Eos # (Auto) 0.00 (0-0.5) K/uL Baso # (Auto) 0.01 (0-0.2) K/uL Absolute Nucleated RBC 0.02 H (0-0) K/uL Nucleated RBC % (auto) 0.2 % PT 10.1 (9.0-12.0) Seconds INR 1.0 (0.9-1.1) APTT 27.5 (21.0-31.0) Seconds PTT Ratio 1.0 ABG pH (7.35-7.45) ABG pCO2 (35-46) mmHg ABG pO2 (80-95) mmHg ABG HCO3 (19-24) mmol/L ABG O2 Saturation (90-95) % ABG Base Excess (-9-1.8) mEq/L Archie Test (Pos) Barometric Pressure mm/Hg Oxygen Given Sodium 122 L (136-145) mmol/L Potassium 2.6 L (3.5-5.1) mmol/L Chloride 75 L (98-107) mmol/L Carbon Dioxide 6 L* (21-32) mmol/L Anion Gap 41.0 H (3-11) BUN 52 H (7-18) mg/dl Creatinine 1.73 H (0.6-1.2) mg/dl Est Cr Clr Drug Dosing 33.5 ml/min Est GFR ( Amer) 38.1 Est GFR (Non-Af Amer) 32.9 BUN/Creatinine Ratio 30.2 H (10-20) Glucose 830 H* (70-99) mg/dl POC Glucose (70-99) mg/dl Lactate Calcium 8.6 (8.5-10.1) mg/dl Magnesium 3.0 H (1.8-2.4) mg/dl Total Bilirubin 0.9 (0.2-1) mg/dl AST 19 (15-37) U/L ALT 30 (12-78) U/L Alkaline Phosphatase 126 H (45-117) U/L Total Creatine Kinase 239 H (26-192) U/L Troponin I < 0.015 (0-0.045) ng/ml Total Protein 7.3 (6.4-8.2) gm/dl Albumin 3.3 L (3.4-5.0) gm/dl Globulin 4.0 (2.5-4.0) gm/dl Albumin/Globulin Ratio 0.8 L (0.9-2) Beta-Hydroxybutyric Acd (0.2-2.81) mg/dl TSH 0.859 (0.300-4.500) uIu/ml Ethyl Alcohol mg/dL (0-3) mg/dl 12/27/19 12/27/19 12/27/19 Range/Units 13:53 14:39 14:52 WBC (4.8-10.8) K/uL RBC (4.2-5.4) M/uL Hgb (12.0-16.0) g/dL Hct (37-47) % MCV (80-100) fL MCH (25-34) pg MCHC (32-36) g/dL RDW Std Deviation (36.4-46.3) fL RDW Coeff of Ethel (11.5-14.5) % Plt Count (130-400) K/uL MPV (7.4-10.4) fL Immature Gran % (Auto) % Neut % (Auto) % Lymph % (Auto) % Preble % (Auto) % Eos % (Auto) % Baso % (Auto) % Immature Gran # (Auto) (0.00-0.02) K/uL Neut # (Auto) (1.4-6.5) K/uL Lymph # (Auto) (1.2-3.4) K/uL Preble # (Auto) (0.11-0.59) K/uL Eos # (Auto) (0-0.5) K/uL Baso # (Auto) (0-0.2) K/uL Absolute Nucleated RBC (0-0) K/uL Nucleated RBC % (auto) % PT (9.0-12.0) Seconds INR (0.9-1.1) APTT (21.0-31.0) Seconds PTT Ratio ABG pH 7.12 L* (7.35-7.45) ABG pCO2 12 L (35-46) mmHg ABG pO2 125 H (80-95) mmHg ABG HCO3 4 L (19-24) mmol/L ABG O2 Saturation 98.1 H (90-95) % ABG Base Excess -23.4 L (-9-1.8) mEq/L Archie Test Pos (Pos) Barometric Pressure 733.4 mm/Hg Oxygen Given ROOM AIR Sodium (136-145) mmol/L Potassium (3.5-5.1) mmol/L Chloride (98-107) mmol/L Carbon Dioxide (21-32) mmol/L Anion Gap (3-11) BUN (7-18) mg/dl Creatinine (0.6-1.2) mg/dl Est Cr Clr Drug Dosing ml/min Est GFR ( Amer) Est GFR (Non-Af Amer) BUN/Creatinine Ratio (10-20) Glucose (70-99) mg/dl POC Glucose (70-99) mg/dl Lactate Cancelled Calcium (8.5-10.1) mg/dl Magnesium (1.8-2.4) mg/dl Total Bilirubin (0.2-1) mg/dl AST (15-37) U/L ALT (12-78) U/L Alkaline Phosphatase (45-117) U/L Total Creatine Kinase (26-192) U/L Troponin I (0-0.045) ng/ml Total Protein (6.4-8.2) gm/dl Albumin (3.4-5.0) gm/dl Globulin (2.5-4.0) gm/dl Albumin/Globulin Ratio (0.9-2) Beta-Hydroxybutyric Acd (0.2-2.81) mg/dl TSH (0.300-4.500) uIu/ml Ethyl Alcohol mg/dL < 3.0 (0-3) mg/dl 12/27/19 Range/Units 16:02 WBC (4.8-10.8) K/uL RBC (4.2-5.4) M/uL Hgb (12.0-16.0) g/dL Hct (37-47) % MCV (80-100) fL MCH (25-34) pg MCHC (32-36) g/dL RDW Std Deviation (36.4-46.3) fL RDW Coeff of Ethel (11.5-14.5) % Plt Count (130-400) K/uL MPV (7.4-10.4) fL Immature Gran % (Auto) % Neut % (Auto) % Lymph % (Auto) % Preble % (Auto) % Eos % (Auto) % Baso % (Auto) % Immature Gran # (Auto) (0.00-0.02) K/uL Neut # (Auto) (1.4-6.5) K/uL Lymph # (Auto) (1.2-3.4) K/uL Preble # (Auto) (0.11-0.59) K/uL Eos # (Auto) (0-0.5) K/uL Baso # (Auto) (0-0.2) K/uL Absolute Nucleated RBC (0-0) K/uL Nucleated RBC % (auto) % PT (9.0-12.0) Seconds INR (0.9-1.1) APTT (21.0-31.0) Seconds PTT Ratio ABG pH (7.35-7.45) ABG pCO2 (35-46) mmHg ABG pO2 (80-95) mmHg ABG HCO3 (19-24) mmol/L ABG O2 Saturation (90-95) % ABG Base Excess (-9-1.8) mEq/L Archie Test (Pos) Barometric Pressure mm/Hg Oxygen Given Sodium (136-145) mmol/L Potassium (3.5-5.1) mmol/L Chloride (98-107) mmol/L Carbon Dioxide (21-32) mmol/L Anion Gap (3-11) BUN (7-18) mg/dl Creatinine (0.6-1.2) mg/dl Est Cr Clr Drug Dosing ml/min Est GFR ( Amer) Est GFR (Non-Af Amer) BUN/Creatinine Ratio (10-20) Glucose (70-99) mg/dl POC Glucose > 600 H* (70-99) mg/dl Lactate Calcium (8.5-10.1) mg/dl Magnesium (1.8-2.4) mg/dl Total Bilirubin (0.2-1) mg/dl AST (15-37) U/L ALT (12-78) U/L Alkaline Phosphatase (45-117) U/L Total Creatine Kinase (26-192) U/L Troponin I (0-0.045) ng/ml Total Protein (6.4-8.2) gm/dl Albumin (3.4-5.0) gm/dl Globulin (2.5-4.0) gm/dl Albumin/Globulin Ratio (0.9-2) Beta-Hydroxybutyric Acd (0.2-2.81) mg/dl TSH (0.300-4.500) uIu/ml Ethyl Alcohol mg/dL (0-3) mg/dl Administered Medications Discontinued Medications Sodium Chloride (Nss 1000ml) 1,000 mls @ 999 mls/hr IV .Q1H1M ARPIT Stop: 12/27/19 14:45 Last Infusion: 12/27/19 15:20 Dose: 0 mls/hr Documented by: [id number] Admin: 12/27/19 14:20 Dose: 999 mls/hr Documented by: [id number] Piperacillin Sod/Tazobactam Sod (Zosyn) 4.5 gm in 120 mls @ 240 mls/hr IV NOW ONE Stop: 12/27/19 14:43 Last Infusion: 12/27/19 15:20 Dose: 0 mls/hr Documented by: [id number] Admin: 12/27/19 14:48 Dose: 240 mls/hr Documented by: [id number] Lactated Ringer's (Lr) 1,000 mls @ 999 mls/hr IV .Q1H1M STA Stop: 12/27/19 15:45 Last Infusion: 12/27/19 16:02 Dose: 0 mls/hr Documented by: [id number] Admin: 12/27/19 14:58 Dose: 999 mls/hr Documented by: [id number] Potassium Chloride (K Cory / Wtr) 10 meq in 100 mls @ 100 mls/hr IV ONE ONE Stop: 12/27/19 15:44 Last Infusion: 12/27/19 15:59 Dose: 0 mls/hr Documented by: [id number] Admin: 12/27/19 14:58 Dose: 100 mls/hr Documented by: [id number] Potassium Chloride (K Cory / Wtr) 10 meq in 100 mls @ 100 mls/hr IV ONE ONE Stop: 12/27/19 15:45 Last Infusion: 12/27/19 16:02 Dose: 0 mls/hr Documented by: [id number] Admin: 12/27/19 15:05 Dose: 100 mls/hr Documented by: [id number] Ondansetron HCl (Zofran) 4 mg IV NOW STA Stop: 12/27/19 13:44 Last Admin: 12/27/19 14:58 Dose: 4 mg Documented by: [id number] Potassium Chloride (Kisha Ciel Elix) 40 meq PO NOW STA Stop: 12/27/19 15:02 Last Admin: 12/27/19 15:06 Dose: 40 meq Documented by: [id number] Imaging Data Radiologist's Impression: XR chest 1V portable HISTORY: 54 years-old Female weakness acute weakness COMPARISON: Chest radiograph 08/12/2019 TECHNIQUE: Portable AP view of the chest FINDINGS: Cardiomediastinal and hilar silhouettes are within normal limits. No pn eumothorax, pleural effusion or overt pulmonary edema. Degenerative changes of the shoulders and spine. Healed remote left-sided rib fractures. Ill-defined opacities project over the lateral left lung base including a 1.2 cm nodular focus. IMPRESSION: Ill-defined opacities of the left lung base including a 1.2 cm nodular focus are new from comparison and may reflect an infectious or inflammatory pneumonitis. A one month follow-up chest radiograph is recommended to document resolution. CT head/brain wo con CLINICAL HISTORY: 54 years-old Female presenting with confusion. TECHNIQUE: Multidetector CT imaging of the head was performed without the use of intravenous contrast. IV contrast: None. One or more dose lowering techniques were used consistent with the principles of ALARA (as low as reasonably achievable), including automatic exposure control, mA or kV adjustment to individual patient size, and/or use of iterative reconstruction. COMPARISON: 08/22/2019. CT DOSE (mGy.cm): The estimated cumulative dose is 537.48 mGy.cm. FINDINGS: Demand Equipment Repairer topogram: Unremarkable. Ventricles and sulci normal in size. No hemorrhage. Brain parenchyma normal in appearance with preserved song-white differentiation. No acute territorial infarct. No mass effect or midline shift. No extra-axial fluid collection. Paranasal sinuses and mastoid air cells clear. Calvarium intact. IMPRESSION: 1. No acute intracranial abnormality. Blood Pressure Blood Pressure Findings: Normal blood pressure Blood Pressure Disposition: further management by hospitalist Discharge Plan Visit Data Chief Complaint: Illness ED Provider: Lauro Porter Discharge Problem: Metabolic acidosis, Acute hyperglycemia, Hypokalemia, Altered mental status, Acute dehydration, Vomiting Patient Disposition: Being Evaluated by Hospitalist Condition: Serious Forms Stand Alone Forms: [facility] Prescriptions Prescriptions: No Action gabapentin 300 mg capsule 300 mg PO TID Qty: 270 RF: 1 cyclobenzaprine 10 mg tablet 10 mg PO BID PRN (Reason: muscle spasm) Qty: 20 RF: 0 duloxetine [Cymbalta] 60 mg capsule,delayed release(DR/EC) 60 mg PO QAM Qty: 30 RF: 5 Creon 6,000-19,000 -30,000 unit capsule,delayed release(DR/EC) 1 cap PO TID Qty: 90 RF: 1 clobetasol 0.05 % foam 1 appln TOP BID Qty: 100 RF: 1 guselkumab [Tremfya] 100 mg/mL auto-injector See Rx Instructions .ROUTE .COMPLEX Qty: 1 RF: 0 trazodone 50 mg tablet 50 mg PO HS Qty: 30 RF: 5 buspirone 5 mg tablet 5 mg PO BID Qty: 60 RF: 5 ferrous sulfate 325 mg (65 mg iron) tablet,delayed release (DR/EC) 325 mg PO Q OTHER DAY RF: 0 cholecalciferol (vitamin D3) 1,000 unit capsule 1,000 units PO PM RF: 0 folic acid 400 mcg tablet 400 mcg PO PM RF: 0 vitamin E (dl, acetate) 400 unit capsule 400 units PO PM RF: 0 multivitamin tablet 1 tab PO PM RF: 0 cephalexin [Keflex] 500 mg capsule 500 mg PO QID 10 Days Qty: 40 RF: 0 nystatin 100,000 unit/gram ointment 1 appln TOP TID Qty: 30 RF: 0 clobetasol 0.05 % shampoo 1 appln TOP DAILY PRN (Reason: Rash) RF: 0 Jardiance 10 mg tablet 10 mg PO QAM RF: 0 hydroxyzine pamoate [Vistaril] 25 mg capsule 25 mg PO DAILY PRN (Reason: anxiety/itchiness) RF: 0 duloxetine [Cymbalta] 20 mg capsule,delayed release(DR/EC) 20 mg PO QPM RF: 0 pantoprazole [Protonix] 40 mg tablet,delayed release (DR/EC) 40 mg PO DAILY PRN (Reason: Acid Reflux) RF: 0 cyanocobalamin (vitamin B-12) [Vitamin B-12] 1,000 mcg Tablet 1,000 mcg PO PM RF: 0 ondansetron 4 mg tablet,disintegrating 4 mg PO Q6 PRN (Reason: nausea and vomiting) Qty: 14 RF: 0 Referrals Referrals: Ana Lilia Madrid MD [Primary Care Provider] - Discharge Problem: Altered mental status Qualifiers: Altered mental status type: unspecified Qualified Code(s): R41.82 - Altered mental status, unspecified Vomiting Qualifiers: Vomiting type: unspecified Vomiting Intractability: non-intractable Nausea presence: unspecified Qualified Code(s): R11.10 - Vomiting, unspecified
[2019-12-27 14:11] LABS: Hematocrit (blood only) 39.8 % (37-47); Hemoglobin 13.1 g/dL (12.0-16.0); Mean Corpuscular Hemoglobin 31.6 pg (25-34); Mean Corpuscular Hgb Conc 32.9 g/dL (32-36); Mean Corpuscular Volume 95.9 fL (80-100); Mean Platelet Volume 10.2 fL (7.4-10.4); Nucleated RBC # (auto) 0.02 K/uL (0-0); Nucleated RBC % (auto) 0.2 %; Platelet Count 235 K/uL (130-400); RDW Coefficient of Variation 13.4 % (11.5-14.5); RDW Standard Deviation 47.2 fL (36.4-46.3); Red Blood Count 4.15 M/uL (4.2-5.4); White Blood Count 14.11 K/uL (4.8-10.8)
--- NOTE | 2019-12-27 14:12 | XRay Report ---
XR chest 1V portable HISTORY: 54 years-old Female weakness acute weakness COMPARISON: Chest radiograph 08/12/2019 TECHNIQUE: Portable AP view of the chest FINDINGS: Cardiomediastinal and hilar silhouettes are within normal limits. No pneumothorax, pleural effusion o r overt pulmonary edema. Degenerative changes of the shoulders and spine. Healed remote left-sided ri b fractures. Ill-defined opacities project over the lateral left lung base including a 1.2 cm nodular focus. IMPRESSION: Ill-defined opacities of the left lung base including a 1.2 cm nodular focus are new from comparison and may reflect an infectious or inflammatory pneumonitis. A one month follow-up chest ra diograph is recommended to document resolution. ACT 112: Negative or not required by law. The above report was generated using voice recognition software. It may contain grammatical, syntax o r spelling errors. Electronically signed by: Joseph Rich M.D. 12/27/2019 2:11 PM
[2019-12-27] MEDS ORDERED: PIPERACILL/TAZOBAC CONSULT ACTIVE PRN ×2 (14:14→17:41)
[2019-12-27] MEDS ORDERED: PIPERACILLIN/TAZOBACTAM 4.5 GM/120 ML BAG IV ONE (14:14)
--- NOTE | 2019-12-27 14:17 | CT Scan Report ---
CT head/brain wo con CLINICAL HISTORY: 54 years-old Female presenting with confusion. TECHNIQUE: Multidetector CT imaging of the head was performed without the use of intravenous contrast . IV contrast: None. One or more dose lowering techniques were used consistent with the principles of ALARA (as low as reasonably achievable), including automatic exposure control, mA or kV adjustment t o individual patient size, and/or use of iterative reconstruction. COMPARISON: 08/22/2019. CT DOSE (mGy.cm): The estimated cumulative dose is 537.48 mGy.cm. FINDINGS: Recreation Aide topogram: Unremarkable. Ventricles and sulci normal in size. No hemorrhage. Brain parenchyma normal in appearance with preser sharan song-white differentiation. No acute territorial infarct. No mass effect or midline shift. No ext ra-axial fluid collection. Paranasal sinuses and mastoid air cells clear. Calvarium intact. IMPRESSION: 1. No acute intracranial abnormality. ACT 112: Negative or not required by law. Electronically signed by: Riki Escobedo M.D. 12/27/2019 2:16 PM
[2019-12-27 14:20] LABS: Partial Thromboplastin Time 27.5 Seconds (21.0-31.0); Prothrombin Time 10.1 Seconds (9.0-12.0)
[2019-12-27 14:32] LABS: Basophils # (auto) 0.01 K/uL (0-0.2); Basophils % (auto) 0.1 %; Immature Granulocytes # (auto) 0.05 K/uL (0.00-0.02); Immature Granulocytes % (auto) 0.4 %; Lymphocytes # (auto) 0.36 K/uL (1.2-3.4); Lymphocytes % (auto) 2.6 %; Monocytes # (auto) 0.86 K/uL (0.11-0.59); Monocytes % (auto) 6.1 %; Neutrophils # (auto) 12.83 K/uL (1.4-6.5); Neutrophils % (auto) 90.8 %
[2019-12-27 14:37] LABS: Alanine Aminotransferase 30 U/L (12-78); Albumin Globulin Ratio 0.8 (0.9-2); Albumin Level 3.3 gm/dl (3.4-5.0); Alkaline Phosphatase 126 U/L (45-117); Aspartate Aminotransferase 19 U/L (15-37); BUN Creatinine Ratio 30.2 (10-20); Bilirubin,Total 0.9 mg/dl (0.2-1); Blood Urea Nitrogen 52 mg/dl (7-18); Calcium 8.6 mg/dl (8.5-10.1); Carbon Dioxide 6 mmol/L (21-32); Chloride 75 mmol/L (98-107); Creatine Kinase 239 U/L (26-192); Creatinine Clr Calc Pharmacy 33.5 ml/min; Est GFR (African American) 38.1; Est GFR (Non-African American) 32.9; Glucose 830 mg/dl (70-99); Potassium 2.6 mmol/L (3.5-5.1); Sodium 122 mmol/L (136-145); Thyroid Stimulating Hormone 0.859 uIu/ml (0.300-4.500); Total Protein 7.3 gm/dl (6.4-8.2); Troponin I < 0.015 ng/ml (0-0.045)
[2019-12-27] MEDS ORDERED: POTASSIUM CHLORIDE / WTR 10 MEQ/100 ML PLCT IV ONE ×3 (14:45→16:01)
[2019-12-27] MEDS ORDERED: LACTATED RINGER'S 1,000 ML IV STA (14:45)
[2019-12-27] MEDS ORDERED: POTASSIUM CHLORIDE 20 MEQ/15 ML UDC PO STA (15:01)
[2019-12-27 15:08] LABS: Base Excess ABG -23.4 mEq/L (-9-1.8); HCO3 ABG 4 mmol/L (19-24); Oxygen Saturation ABG 98.1 % (90-95); PCO2 ABG 12 mmHg (35-46); PO2 ABG 125 mmHg (80-95)
[2019-12-27 15:14] LABS: Allen Test Pos (Pos)
[2019-12-27 15:16] LABS: pH ABG 7.12 (7.35-7.45)
[2019-12-27] MEDS ORDERED: THIAMINE HCL 200 MG in SODIUM CHLORIDE 0.9% 50 ML IV STA (16:03)
--- NOTE | 2019-12-27 16:08 | History & Physical Report ---
Date of Service December 27, 2019 Assessment & Plan (1) DKA (diabetic ketoacidoses): Labs and clinical presentation all c/w severe DKA. Patient with known chronic pancreatitis/pancreatic insufficiency all c/w T1DM. s/p 2 L of boluses in ER; 2 additional boluses given in ER prior to transfer to ICU. Following such will give fluids at a rate at least 1.5 maintenance. Replete low K. Serial BMP, pH, mag, phos q4h. Start insulin infusion per protocol. Check A1c. D/c all prior DM meds. Will need dividend clerk and DM education during this admission. The importance of etoh abstinence will be needed in light of T1DM. No obvious infectious cause of DKA but will check flu PCR and follow blood cultures. Zosyn empirically while awaiting blood cx's. Check u/a once colbert is placed. Will Rx her DKA in the ICU; care d/w Dr Tobias. (2) Acute kidney injury: 2nd to massive volume depletion in setting of DKA. Serial BMPs. Place colbert. IVF as above. (3) Hyponatremia: corrected Na level ~134 based on high blood sugars [id number] is significantly volume depleted at presentation s/p volume resuscitation in ER serial labs IV fluids - defer selection of such to ICU attending (4) Metabolic encephalopathy: 2nd to DKA. Cannot rule out other toxins (medications, illicit drugs, etc). Check tox screen. HOLD gabapentin. HOLD trazodone. Treat DKA. (5) Hypokalemia: severe. received 40meq PO KCL in ER. received 20meq IV KCL in ER. give additional 10meq of IV KCL now. Check BMPs serially. add KCL to fluids. (6) Metabolic acidosis: 2nd to DKA. awaiting lactic acid level. etoh level undetectable. serial pH levels and BMP. (7) History of left below knee amputation: 2nd to foot infection several years ago (8) Depression with anxiety: HOLD po meds from home due to altered MS (9) Exocrine pancreatic insufficiency: once taking a diet resume pancrease (10) Liver cirrhosis, alcoholic: by report check ammonia level in light of altered mental status (11) Psoriasis: on biological agent chronically for such, per med list this places her even more immunocompromised above and beyond her chronic alcohol use, T1DM, etc. (12) Alcohol dependence: per mother no alcohol in 1-2 months? place on etoh withdrawal protocol as precautionary measure. thiamine 200mg IV now followed by 200mg IV BID. folic acid daily. (13) Tobacco dependence: nicoderm patch (14) DVT prophylaxis: suggest heparin 5000 units SC BID total critical care time 70 minutes pt's mother updated by phone History of Present Illness Chief Complaint: altered mental status Primary Care Provider: Ana Lilia Madrid MD 54yo female with alcoholism, tobacco dependence, chronic pancreatitis/pancreatic insufficiency, ?cirrhosis, and diabetes mellitus who presents from home after being found by police with altered mental status and covered with vomit. The patient's mother lives in the [place] area and hadn't heard from the patient in 2 days. Thus, the patient's mother called the police to investigate. Upon arrival to [facility] ER the patient was altered and found to have significant metabolic derangements including severe metabolic acidosis and evidence of DKA. She was also hyponatremic and severely hypokalemic with acute kidney injury. The patient was too altered to provide any meaningful history or ROS. Following admission I contacted the patient's mother who provided some basic information. Patient's mother confirmed that she continues to smoke - possibly 1 ppd or more. She was drinking alcohol up until 1-2 months ago but is uncertain if she is currently drinking. Allergies Allergy/AdvReac Type Severity Reaction Status Date / Time haloperidol [From Haldol] AdvReac Unknown Verified 12/17/19 09:26 Home Medications Home Medications Medication Instructions Recorded Confirmed Type trazodone 50 mg tablet 50 mg PO HS #30 tab 06/18/19 12/17/19 Rx cholecalciferol (vitamin D3) 25 1,000 units PO PM 06/23/19 12/17/19 History mcg (1,000 unit) capsule ferrous sulfate 325 mg (65 mg 325 mg PO Q OTHER DAY tab 06/23/19 12/17/19 History iron) tablet,delayed release folic acid 400 mcg tablet 400 mcg PO PM 06/23/19 12/17/19 History multivitamin 1 tab PO PM 06/23/19 12/17/19 History vitamin E (dl, acetate) 400 unit 400 units PO PM 06/23/19 12/17/19 History capsule gabapentin 300 mg capsule 300 mg PO TID #270 cap 07/19/19 12/17/19 Rx cyanocobalamin (vitamin B-12) 1,000 mcg PO PM 08/12/19 12/17/19 History [Vitamin B-12] pantoprazole [Protonix] 40 mg PO DAILY PRN 08/12/19 12/17/19 History cyclobenzaprine 10 mg tablet 10 mg PO BID PRN #20 tab 08/30/19 12/17/19 Rx duloxetine 60 mg capsule,delayed 60 mg PO QAM #30 cap 08/30/19 12/17/19 Rx release idqavs-uqejwdle-zgwamzm 1 cap PO TID #90 cap 08/30/19 12/17/19 Rx 6,000-19,000-30,000 unit capsule,delayed rel ondansetron 4 mg PO Q6 PRN #14 tab 10/15/19 12/17/19 Rx buspirone 5 mg tablet 5 mg PO BID #60 tab 10/19/19 12/17/19 Rx Jardiance 10 mg PO QAM 10/29/19 12/17/19 History clobetasol 1 appln TOP DAILY PRN 10/29/19 12/17/19 History clobetasol 0.05 % topical foam 1 appln TOP BID #100 gm 11/01/19 12/17/19 Rx duloxetine [Cymbalta] 20 mg PO QPM 11/05/19 12/17/19 History hydroxyzine pamoate [Vistaril] 25 mg PO DAILY PRN 11/05/19 12/17/19 History guselkumab 100 mg/mL subcutaneous See Rx Instructions .ROUTE 12/03/19 12/17/19 Rx auto-injector .COMPLEX #1 milliliter cephalexin 500 mg capsule 500 mg PO QID 10 Days #40 cap 12/17/19 12/17/19 Rx nystatin 100,000 unit/gram topical 1 appln TOP TID #30 gm 12/17/19 12/17/19 Rx ointment Past Med/Surg History Medical History Abnormal blood sugar A1C LEVELS FLUCTUATE Abnormal TSH Alcohol intoxication (Inactive) RESOLVED PER PATIENT Alcohol withdrawal seizure (Resolved) NOT REPORTED BY PATIENT AT TIME OF PAT CALL - LAST EPISODE OVER A YEAR AGO Anxiety (Chronic) Unable to establish regular follow-up with psychiatry Bimalleolar ankle fracture (Resolved) Bowel habit changes RESOLVED Chronic pancreatitis (Chronic) Cirrhosis of liver (Chronic) "COMPROMISED LIVER" Depression (Chronic) Unable to establish regular follow-up with psychiatry Diabetes mellitus (Chronic) TYPE 2 "SECONDARY" Encephalomalacia (Acute) Exocrine pancreatic insufficiency (Acute) History of alcohol consumption (Chronic) History of dizziness NOT CURRENTLY History of fracture TAILBONE - FLARES UP WITH WEATHER CHANGES Hydrosalpinx PT UNAWARE Hypothyroidism told this 10 yrs ago> no meds Insomnia IPMN (intraductal papillary mucinous neoplasm) Lipoma NECK Liver cirrhosis, alcoholic (Acute) Nausea & vomiting (Inactive) RESOLVED Neuropathy (Chronic) OF FOOT Nicotine dependence (Chronic) Pancreatic insufficiency (Chronic) Peripheral neuropathy (Acute) RESOLVING PER PATIENT Polycystic ovarian syndrome (Chronic) Psoriasis (Acute) SBO (small bowel obstruction) (Resolved) Resolved Vitamin D deficiency Surgical History Amputation of left lower extremity TO APPROX MID CALF History of ankle surgery 02/2019 left ankle ex fix, grade 2 view with MAC 3 and 7.0 ETT History of tooth extraction Family History Uncle Diabetes Mother Breast cancer Sister Breast cancer Father Prostate cancer Other Family history of breast cancer in mother Family history of breast cancer in sister Denies family history of Ovarian cancer Myocardial infarction Colorectal cancer Social History (Updated 12/27/19 @ 19:17 by Alfonso Valencia) Preferred Language: Trinidadian Communication Ability: Impaired Visual Impairment: No Limitations Biomass Production Manager Required: No Beliefs That Will Affect Care: None marital status: marital status details: no children Current Living Situation: Alone current occupational status: disabled Other Information That Helps Us Care for You: No Feels Safe at Home: Declines to Answer Smoking Status: Current every day smoker Tobacco Type: cigarettes ; packs per day: 0.75 ; Cigarettes Per Day: 15 CIGS PER DAY ; Second Hand Exposure: Yes ; Hx Alcohol Use: Yes (uncertain amount ) Alcohol type: wine Hx Substance Use: No Review of Systems Review of Systems: Unobtainable due to cognitive status Physical Exam Constitutional: + acute distress (coughing, even moaning at times ), + ill appearing and + frail appearing; + not well developed and + not well nourished Eyes: + anicteric sclerae and PERRL; no nystagmus ENMT: Mouth: + dry oral mucous membranes and + malodorous breath (fruity odor ) Neck: trachea midline, no thyromegaly Respiratory: normal respiratory effort, lungs clear to auscultation Cardiovascular: Rate/Rhythm: regular rhythm and + tachycardic Heart Sounds: normal S1 and normal S2; no murmur Vessels: no JVD Extremities: + abnormal capillary refill (3 sec or more; cool extremities to touch ) and no edema Gastrointestinal (Abdomen): Inspection/Auscultation: + abdomen distended Percussion/Palpation: abdomen nontender, no guarding and no hepatosplenomegaly Musculoskeletal: left AKA Skin: + pallor Neurologic: + confused; no focal motor deficits Psychiatric: Orientation: + not alert and + not oriented x 3 Results & Data Vital Signs (Past 12 Hours) Vital Signs Temp Pulse Pulse Resp BP BP Pulse Ox 12/27/19 16:00 102 H 20 119/86 100 12/27/19 15:16 106 H 26 H 115/89 100 12/27/19 15:00 106 H 30 H 121/86 100 12/27/19 14:16 109 H 26 H 106/72 100 12/27/19 13:56 100 12/27/19 13:30 36.8 C 110 H 21 114/94 100 Laboratory Results Laboratory Results - last 24 hr 12/27/19 12/27/19 12/27/19 13:53 13:53 13:53 WBC 14.11 H RBC 4.15 L Hgb 13.1 Hct 39.8 MCV 95.9 MCH 31.6 MCHC 32.9 RDW Std Deviation 47.2 H RDW Coeff of Ethel 13.4 Plt Count 235 MPV 10.2 Immature Gran % (Auto) 0.4 Neut % (Auto) 90.8 Lymph % (Auto) 2.6 [place] % (Auto) 6.1 Eos % (Auto) 0.0 Baso % (Auto) 0.1 Immature Gran # (Auto) 0.05 H Neut # (Auto) 12.83 H Lymph # (Auto) 0.36 L [place] # (Auto) 0.86 H Eos # (Auto) 0.00 Baso # (Auto) 0.01 Absolute Nucleated RBC 0.02 H Nucleated RBC % (auto) 0.2 PT 10.1 INR 1.0 APTT 27.5 PTT Ratio 1.0 ABG pH ABG pCO2 ABG pO2 ABG HCO3 ABG O2 Saturation ABG Base Excess Archie Test VBG pH Barometric Pressure Oxygen Given Sodium 122 L Potassium 2.6 L Chloride 75 L Carbon Dioxide 6 L* Anion Gap 41.0 H BUN 52 H Creatinine 1.73 H Est Cr Clr Drug Dosing 33.5 Est GFR ( Amer) 38.1 Est GFR (Non-Af Amer) 32.9 BUN/Creatinine Ratio 30.2 H Glucose 830 H* POC Glucose Estimat Average Glucose Hemoglobin A1c Lactate Calcium 8.6 Phosphorus Magnesium 3.0 H Total Bilirubin 0.9 AST 19 ALT 30 Alkaline Phosphatase 126 H Ammonia Total Creatine Kinase 239 H Troponin I < 0.015 Total Protein 7.3 Albumin 3.3 L Globulin 4.0 Albumin/Globulin Ratio 0.8 L Beta-Hydroxybutyric Acd TSH 0.859 Urine Color Urine Appearance Urine pH Ur Specific Latty Urine Protein Urine Glucose (UA) Urine Ketones Urine Blood Urine Nitrite Urine Bilirubin Urine Urobilinogen Ur Leukocyte Esterase Urine RBC Urine WBC Ur Epithelial Cells Urine Bacteria Hyaline Casts Urine Opiates Screen Ur Methadone, Qual Urine Barbiturates Ur Phencyclidine (PCP) U Amphetamin/Meth Scrn MDMA (Ecstasy) Screen U Benzodiazepines Scrn Ur Cocaine Metabolite U Marijuana (THC) Screen Ethyl Alcohol mg/dL Influenza Type A (PCR) Influenza Type B (PCR) 12/27/19 12/27/19 12/27/19 13:53 13:53 14:39 WBC RBC Hgb Hct MCV MCH MCHC RDW Std Deviation RDW Coeff of Ethel Plt Count MPV Immature Gran % (Auto) Neut % (Auto) Lymph % (Auto) [place] % (Auto) Eos % (Auto) Baso % (Auto) Immature Gran # (Auto) Neut # (Auto) Lymph # (Auto) [place] # (Auto) Eos # (Auto) Baso # (Auto) Absolute Nucleated RBC Nucleated RBC % (auto) PT INR APTT PTT Ratio ABG pH ABG pCO2 ABG pO2 ABG HCO3 ABG O2 Saturation ABG Base Excess Archie Test VBG pH Barometric Pressure Oxygen Given Sodium Potassium Chloride Carbon Dioxide Anion Gap BUN Creatinine Est Cr Clr Drug Dosing Est GFR ( Amer) Est GFR (Non-Af Amer) BUN/Creatinine Ratio Glucose POC Glucose Estimat Average Glucose Pending Hemoglobin A1c Pending Lactate Cancelled Calcium Phosphorus Magnesium Total Bilirubin AST ALT Alkaline Phosphatase Ammonia Total Creatine Kinase Troponin I Total Protein Albumin Globulin Albumin/Globulin Ratio Beta-Hydroxybutyric Acd TSH Urine Color Urine Appearance Urine pH Ur Specific Latty Urine Protein Urine Glucose (UA) Urine Ketones Urine Blood Urine Nitrite Urine Bilirubin Urine Urobilinogen Ur Leukocyte Esterase Urine RBC Urine WBC Ur Epithelial Cells Urine Bacteria Hyaline Casts Urine Opiates Screen Ur Methadone, Qual Urine Barbiturates Ur Phencyclidine (PCP) U Amphetamin/Meth Scrn MDMA (Ecstasy) Screen U Benzodiazepines Scrn Ur Cocaine Metabolite U Marijuana (THC) Screen Ethyl Alcohol mg/dL < 3.0 Influenza Type A (PCR) Influenza Type B (PCR) 12/27/19 12/27/19 12/27/19 14:52 16:02 16:23 WBC RBC Hgb Hct MCV MCH MCHC RDW Std Deviation RDW Coeff of Ethel Plt Count MPV Immature Gran % (Auto) Neut % (Auto) Lymph % (Auto) [place] % (Auto) Eos % (Auto) Baso % (Auto) Immature Gran # (Auto) Neut # (Auto) Lymph # (Auto) [place] # (Auto) Eos # (Auto) Baso # (Auto) Absolute Nucleated RBC Nucleated RBC % (auto) PT INR APTT PTT Ratio ABG pH 7.12 L* ABG pCO2 12 L ABG pO2 125 H ABG HCO3 4 L ABG O2 Saturation 98.1 H ABG Base Excess -23.4 L Archie Test Pos VBG pH Barometric Pressure 733.4 Oxygen Given ROOM AIR Sodium Potassium Chloride Carbon Dioxide Anion Gap BUN Creatinine Est Cr Clr Drug Dosing Est GFR ( Amer) Est GFR (Non-Af Amer) BUN/Creatinine Ratio Glucose POC Glucose > 600 H* Estimat Average Glucose Hemoglobin A1c Lactate Calcium Phosphorus Magnesium Total Bilirubin AST ALT Alkaline Phosphatase Ammonia Total Creatine Kinase Troponin I Total Protein Albumin Globulin Albumin/Globulin Ratio Beta-Hydroxybutyric Acd TSH Urine Color Yellow Urine Appearance Clear Urine pH 5.5 Ur Specific Latty 1.025 Urine Protein 1+ H Urine Glucose (UA) 2+ H Urine Ketones 3+ H Urine Blood 2+ H Urine Nitrite Negative Urine Bilirubin Negative Urine Urobilinogen Negative Ur Leukocyte Esterase Negative Urine RBC 10-30 H Urine WBC 0-5 Ur Epithelial Cells 0-5 Urine Bacteria Negative Hyaline Casts 0-5 Urine Opiates Screen Ur Methadone, Qual Urine Barbiturates Ur Phencyclidine (PCP) U Amphetamin/Meth Scrn MDMA (Ecstasy) Screen U Benzodiazepines Scrn Ur Cocaine Metabolite U Marijuana (THC) Screen Ethyl Alcohol mg/dL Influenza Type A (PCR) Influenza Type B (PCR) 12/27/19 12/27/19 12/27/19 16:23 16:25 16:26 WBC RBC Hgb Hct MCV MCH MCHC RDW Std Deviation RDW Coeff of Ethel Plt Count MPV Immature Gran % (Auto) Neut % (Auto) Lymph % (Auto) [place] % (Auto) Eos % (Auto) Baso % (Auto) Immature Gran # (Auto) Neut # (Auto) Lymph # (Auto) [place] # (Auto) Eos # (Auto) Baso # (Auto) Absolute Nucleated RBC Nucleated RBC % (auto) PT INR APTT PTT Ratio ABG pH ABG pCO2 ABG pO2 ABG HCO3 ABG O2 Saturation ABG Base Excess Archie Test VBG pH Barometric Pressure Oxygen Given Sodium Potassium Chloride Carbon Dioxide Anion Gap BUN Creatinine Est Cr Clr Drug Dosing Est GFR ( Amer) Est GFR (Non-Af Amer) BUN/Creatinine Ratio Glucose POC Glucose Estimat Average Glucose Hemoglobin A1c Lactate Calcium Phosphorus Magnesium Total Bilirubin AST ALT Alkaline Phosphatase Ammonia 36.0 H Total Creatine Kinase Troponin I Total Protein Albumin Globulin Albumin/Globulin Ratio Beta-Hydroxybutyric Acd TSH Urine Color Urine Appearance Urine pH Ur Specific Latty Urine Protein Urine Glucose (UA) Urine Ketones Urine Blood Urine Nitrite Urine Bilirubin Urine Urobilinogen Ur Leukocyte Esterase Urine RBC Urine WBC Ur Epithelial Cells Urine Bacteria Hyaline Casts Urine Opiates Screen Neg Ur Methadone, Qual Neg Urine Barbiturates Neg Ur Phencyclidine (PCP) Neg U Amphetamin/Meth Scrn Neg MDMA (Ecstasy) Screen Neg U Benzodiazepines Scrn Neg Ur Cocaine Metabolite Neg U Marijuana (THC) Screen Neg Ethyl Alcohol mg/dL Influenza Type A (PCR) Neg for Influ A Influenza Type B (PCR) Neg for Influ B 12/27/19 12/27/19 12/27/19 16:26 16:26 18:11 WBC RBC Hgb Hct MCV MCH MCHC RDW Std Deviation RDW Coeff of Ethel Plt Count MPV Immature Gran % (Auto) Neut % (Auto) Lymph % (Auto) [place] % (Auto) Eos % (Auto) Baso % (Auto) Immature Gran # (Auto) Neut # (Auto) Lymph # (Auto) [place] # (Auto) Eos # (Auto) Baso # (Auto) Absolute Nucleated RBC Nucleated RBC % (auto) PT INR APTT PTT Ratio ABG pH ABG pCO2 ABG pO2 ABG HCO3 ABG O2 Saturation ABG Base Excess Archie Test VBG pH Barometric Pressure Oxygen Given Sodium 128 L Potassium 4.0 D Chloride 88 L Carbon Dioxide 6 L* Anion Gap 34.0 H BUN 55 H Creatinine 1.36 H D Est Cr Clr Drug Dosing 42.6 Est GFR ( Amer) 51.0 Est GFR (Non-Af Amer) 44.0 BUN/Creatinine Ratio 40.2 H Glucose 750 H* POC Glucose > 600 H* Estimat Average Glucose Hemoglobin A1c Lactate 1.5 Calcium 7.7 L Phosphorus 5.4 H Magnesium 2.4 Total Bilirubin AST ALT Alkaline Phosphatase Ammonia Total Creatine Kinase Troponin I Total Protein Albumin Globulin Albumin/Globulin Ratio Beta-Hydroxybutyric Acd 161.88 H TSH Urine Color Urine Appearance Urine pH Ur Specific Latty Urine Protein Urine Glucose (UA) Urine Ketones Urine Blood Urine Nitrite Urine Bilirubin Urine Urobilinogen Ur Leukocyte Esterase Urine RBC Urine WBC Ur Epithelial Cells Urine Bacteria Hyaline Casts Urine Opiates Screen Ur Methadone, Qual Urine Barbiturates Ur Phencyclidine (PCP) U Amphetamin/Meth Scrn MDMA (Ecstasy) Screen U Benzodiazepines Scrn Ur Cocaine Metabolite U Marijuana (THC) Screen Ethyl Alcohol mg/dL Influenza Type A (PCR) Influenza Type B (PCR) 12/27/19 12/27/19 12/27/19 18:13 18:13 18:13 WBC RBC Hgb Hct MCV MCH MCHC RDW Std Deviation RDW Coeff of Ethel Plt Count MPV Immature Gran % (Auto) Neut % (Auto) Lymph % (Auto) [place] % (Auto) Eos % (Auto) Baso % (Auto) Immature Gran # (Auto) Neut # (Auto) Lymph # (Auto) [place] # (Auto) Eos # (Auto) Baso # (Auto) Absolute Nucleated RBC Nucleated RBC % (auto) PT INR APTT PTT Ratio ABG pH ABG pCO2 ABG pO2 ABG HCO3 ABG O2 Saturation ABG Base Excess Archie Test VBG pH 7.05 L Barometric Pressure Oxygen Given Sodium Potassium Chloride Carbon Dioxide Anion Gap BUN Creatinine Est Cr Clr Drug Dosing Est GFR ( Amer) Est GFR (Non-Af Amer) BUN/Creatinine Ratio Glucose POC Glucose > 600 H* Estimat Average Glucose Hemoglobin A1c Lactate Calcium Phosphorus 3.7 D Magnesium 2.3 Total Bilirubin AST ALT Alkaline Phosphatase Ammonia Total Creatine Kinase Troponin I Total Protein Albumin Globulin Albumin/Globulin Ratio Beta-Hydroxybutyric Acd TSH Urine Color Urine Appearance Urine pH Ur Specific Latty Urine Protein Urine Glucose (UA) Urine Ketones Urine Blood Urine Nitrite Urine Bilirubin Urine Urobilinogen Ur Leukocyte Esterase Urine RBC Urine WBC Ur Epithelial Cells Urine Bacteria Hyaline Casts Urine Opiates Screen Ur Methadone, Qual Urine Barbiturates Ur Phencyclidine (PCP) U Amphetamin/Meth Scrn MDMA (Ecstasy) Screen U Benzodiazepines Scrn Ur Cocaine Metabolite U Marijuana (THC) Screen Ethyl Alcohol mg/dL Influenza Type A (PCR) Influenza Type B (PCR) 12/27/19 18:13 WBC RBC Hgb Hct MCV MCH MCHC RDW Std Deviation RDW Coeff of Ethel Plt Count MPV Immature Gran % (Auto) Neut % (Auto) Lymph % (Auto) [place] % (Auto) Eos % (Auto) Baso % (Auto) Immature Gran # (Auto) Neut # (Auto) Lymph # (Auto) [place] # (Auto) Eos # (Auto) Baso # (Auto) Absolute Nucleated RBC Nucleated RBC % (auto) PT INR APTT PTT Ratio ABG pH ABG pCO2 ABG pO2 ABG HCO3 ABG O2 Saturation ABG Base Excess Archie Test VBG pH Barometric Pressure Oxygen Given Sodium Potassium Chloride Carbon Dioxide Anion Gap BUN Creatinine Est Cr Clr Drug Dosing Est GFR ( Amer) Est GFR (Non-Af Amer) BUN/Creatinine Ratio Glucose Pending POC Glucose Estimat Average Glucose Hemoglobin A1c Lactate Calcium Phosphorus Magnesium Total Bilirubin AST ALT Alkaline Phosphatase Ammonia Total Creatine Kinase Troponin I Total Protein Albumin Globulin Albumin/Globulin Ratio Beta-Hydroxybutyric Acd TSH Urine Color Urine Appearance Urine pH Ur Specific Latty Urine Protein Urine Glucose (UA) Urine Ketones Urine Blood Urine Nitrite Urine Bilirubin Urine Urobilinogen Ur Leukocyte Esterase Urine RBC Urine WBC Ur Epithelial Cells Urine Bacteria Hyaline Casts Urine Opiates Screen Ur Methadone, Qual Urine Barbiturates Ur Phencyclidine (PCP) U Amphetamin/Meth Scrn MDMA (Ecstasy) Screen U Benzodiazepines Scrn Ur Cocaine Metabolite U Marijuana (THC) Screen Ethyl Alcohol mg/dL Influenza Type A (PCR) Influenza Type B (PCR) Diagnostic Findings cxr - 1.2 nodular density left base EKG - my reading - sinus tachycardia, QTc prolongation, no ST changes flu pending Code Status & VTE Plan Code Status uncertain; full code until we can address with patient VTE Prophylaxis Plan VTE Prophylaxis will be ordered: Yes Critical Care Time Critical Care Time: Yes Total Critical Care Time: 70 PG Care Time/CCT Total # of Minutes Spent Total Time Spent with Patient: Total time spent is greater than 50% in coordination of care (as documented) at patient's floor/unit and/or counseling patient: Critical Care Time: Yes Total Critical Care Time: 70 Coding Level of Care Code None Diagnoses DKA (diabetic ketoacidoses) E10.11 Diabetes mellitus type: type 1 Diabetes mellitus complication detail: with coma Acute kidney injury N17.9 Hyponatremia E87.1 Metabolic encephalopathy G93.41 Hypokalemia E87.6 Metabolic acidosis E87.2 History of left below knee amputation Z89.512 Depression with anxiety F41.8 Exocrine pancreatic insufficiency K86.81 Liver cirrhosis, alcoholic K70.30 Psoriasis L40.9 Alcohol dependence F10.20 Tobacco dependence F17.200 DVT prophylaxis Z29.9 Additional Codes Critical Care Time - Critical Care Time: Yes ([id number]) (1) DKA (diabetic ketoacidoses) Diabetes mellitus type: type 1 Diabetes mellitus complication detail: with coma Qualified Code(s): E10.11 - Type 1 diabetes mellitus with ketoacidosis with coma
[2019-12-27] MEDS ORDERED: NSS + 20MEQ KCL 20 MEQ/1,000 ML BAG IV SCH (16:23)
--- NOTE | 2019-12-27 16:29 | Electrocardiogram Report ---
Test Reason : Blood Pressure : / mmHG Vent. Rate : 109 BPM Atrial Rate : 109 BPM P-R Int : 132 ms QRS Dur : 090 ms QT Int : 380 ms P-R-T Axes : 075 065 071 degrees QTc Int : 511 ms Poor data quality, interpretation may be adversely affected Sinus tachycardia Biatrial enlargement Abnormal ECG When compared with ECG of 15-OCT-2019 13:37, Premature atrial complexes are no longer Present QT has lengthened Confirmed by Artemio Olson ([id number] on 12/27/2019 4:29:38 PM Referred By: Confirmed By:Clive Olson
--- NOTE | 2019-12-27 16:30 | Critical Care Consultation ---
Date of Consultation December 27, 2019 Assessment & Plan (1) Metabolic acidosis: Impression: 54-year-old female with history of diabetes and alcohol abuse admitted with diabetic ketoacidosis, acute renal failure, and severe hypokalemia. Recommendations: 1. Severe DKA: Suspect related to medical noncompliance although with her elevated white count cannot exclude infection. History of pancreatitis in the past. Will check labs. Continue aggressive crystalloid replacement with an additional 2 L. She may require up to 8 L depending on clinical response. Initiate insulin infusion. Continue insulin infusion pending closure of anion gap, resolution of the patient's mental status/encephalopathy, and long-acting insulin initiated. Check hemoglobin A1c and beta hydroxybutyrate. 2. Profound hypokalemia: Continue aggressive repletion protocols. Suspect fairly profound total body potassium deficit given her acidosis. 3. Metabolic acidosis: Secondary to DKA. Lactate is pending. Should improve with correction of the patient's DKA. 4. Acute kidney injury: I suspect related to hypoperfusion and prerenal state. Will follow with fluid resuscitation. If she fails to correct, additional evaluation will be undertaken. She is at risk for ATN and diabetic nephropathy however her baseline creatinine appeared normal. 5. Leukocytosis: Suspect reactive to the patient's underlying DKA. Continue to follow for now. I do not see an indication to continue antimicrobial therapy cu rrently. 6. Noncaloric clears until the patient is off the insulin infusion. 7. Encephalopathy: Suspect toxic metabolic. Continue to follow mental status. No indication for acute imaging or lumbar puncture currently. 8. History of alcohol abuse: According to the patient's primary care notes, she has been free of alcohol products since October. Will observe for signs of alcohol withdrawal. Thiamine and folate replacement. Additional recommendations will based on patient's response to therapy and additional diagnostic data. (2) Acute hyperglycemia: (3) Altered mental status: (4) Renal insufficiency: History of Present Illness History of Present Illness Asked by hospitalist to assist with critical care management of this patient admitted with acute renal insufficiency, DKA/hyperosmolar nonketotic state, acidosis and hypokalemia. History is obtained from review electronic medical record as the patient is obtunded and unable to provide any pertinent history. Patient is a 54-year-old female with a history of type 2 diabetes. She also has an extensive history of alcohol abuse. She apparently was found at home covered in vomitus after a family member called for a police safety evaluation at home. She was brought to the emergency room. She is found to be altered. Blood glucose was markedly elevated and she had a variety of metabolic abnormalities. She was administered antibiotics for presumed pneumonia based on chest x-ray finding. She received 2 L of crystalloid. She was admitted to the hospitalist service. Due to her metabolic disarray, critical care monitoring was recommended for close monitoring of electrolytes and her mental status. She is hemodynamically stable. No family accompanies her and no additional history is available. Allergies Allergy/AdvReac Type Severity Reaction Status Date / Time haloperidol [From Haldol] AdvReac Unknown Verified 12/17/19 09:26 Home Medications Home Medications Medication Instructions Recorded Confirmed Type trazodone 50 mg tablet 50 mg PO HS #30 tab 06/18/19 12/17/19 Rx cholecalciferol (vitamin D3) 25 1,000 units PO PM 06/23/19 12/17/19 History mcg (1,000 unit) capsule ferrous sulfate 325 mg (65 mg 325 mg PO Q OTHER DAY tab 06/23/19 12/17/19 History iron) tablet,delayed release folic acid 400 mcg tablet 400 mcg PO PM 06/23/19 12/17/19 History multivitamin 1 tab PO PM 06/23/19 12/17/19 History vitamin E (dl, acetate) 400 unit 400 units PO PM 06/23/19 12/17/19 History capsule gabapentin 300 mg capsule 300 mg PO TID #270 cap 07/19/19 12/17/19 Rx cyanocobalamin (vitamin B-12) 1,000 mcg PO PM 08/12/19 12/17/19 History [Vitamin B-12] pantoprazole [Protonix] 40 mg PO DAILY PRN 08/12/19 12/17/19 History cyclobenzaprine 10 mg tablet 10 mg PO BID PRN #20 tab 08/30/19 12/17/19 Rx duloxetine 60 mg capsule,delayed 60 mg PO QAM #30 cap 08/30/19 12/17/19 Rx release zmepjc-sefwmvjr-ihidbrn 1 cap PO TID #90 cap 08/30/19 12/17/19 Rx 6,000-19,000-30,000 unit capsule,delayed rel ondansetron 4 mg PO Q6 PRN #14 tab 10/15/19 12/17/19 Rx buspirone 5 mg tablet 5 mg PO BID #60 tab 10/19/19 12/17/19 Rx Jardiance 10 mg PO QAM 10/29/19 12/17/19 History clobetasol 1 appln TOP DAILY PRN 10/29/19 12/17/19 History clobetasol 0.05 % topical foam 1 appln TOP BID #100 gm 11/01/19 12/17/19 Rx duloxetine [Cymbalta] 20 mg PO QPM 11/05/19 12/17/19 History hydroxyzine pamoate [Vistaril] 25 mg PO DAILY PRN 11/05/19 12/17/19 History guselkumab 100 mg/mL subcutaneous See Rx Instructions .ROUTE 12/03/19 12/17/19 Rx auto-injector .COMPLEX #1 milliliter cephalexin 500 mg capsule 500 mg PO QID 10 Days #40 cap 12/17/19 12/17/19 Rx nystatin 100,000 unit/gram topical 1 appln TOP TID #30 gm 12/17/19 12/17/19 Rx ointment Patient History Medical History Abnormal blood sugar A1C LEVELS FLUCTUATE Abnormal TSH Alcohol intoxication (Inactive) RESOLVED PER PATIENT Alcohol withdrawal seizure (Resolved) NOT REPORTED BY PATIENT AT TIME OF PAT CALL - LAST EPISODE OVER A YEAR AGO Anxiety (Chronic) Unable to establish regular follow-up with psychiatry Bimalleolar ankle fracture (Resolved) Bowel habit changes RESOLVED Chronic pancreatitis (Chronic) Cirrhosis of liver (Chronic) "COMPROMISED LIVER" Depression (Chronic) Unable to establish regular follow-up with psychiatry Diabetes mellitus (Chronic) TYPE 2 "SECONDARY" Encephalomalacia (Acute) Exocrine pancreatic insufficiency (Acute) History of alcohol consumption (Chronic) History of dizziness NOT CURRENTLY History of fracture TAILBONE - FLARES UP WITH WEATHER CHANGES Hydrosalpinx PT UNAWARE Hypothyroidism told this 10 yrs ago> no meds Insomnia IPMN (intraductal papillary mucinous neoplasm) Lipoma NECK Liver cirrhosis, alcoholic (Acute) Nausea & vomiting (Inactive) RESOLVED Neuropathy (Chronic) OF FOOT Nicotine dependence (Chronic) Pancreatic insufficiency (Chronic) Peripheral neuropathy (Acute) RESOLVING PER PATIENT Polycystic ovarian syndrome (Chronic) Psoriasis (Acute) SBO (small bowel obstruction) (Resolved) Resolved Vitamin D deficiency Surgical History Amputation of left lower extremity TO APPROX MID CALF History of ankle surgery 02/2019 left ankle ex fix, grade 2 view with MAC 3 and 7.0 ETT History of tooth extraction Family History Uncle Diabetes Mother Breast cancer Sister Breast cancer Father Prostate cancer Other Family history of breast cancer in mother Family history of breast cancer in sister Denies family history of Ovarian cancer Myocardial infarction Colorectal cancer Social History Preferred Language: Icelandic Communication Ability: Effective Visual Impairment: No Limitations Business Management Manager Required: No Beliefs That Will Affect Care: None marital status: Current Living Situation: Alone Feels Safe at Home: Yes Smoking Status: Current every day smoker Tobacco Type: cigarettes ; packs per day: 0.75 ; Cigarettes Per Day: 15 CIGS PER DAY ; Second Hand Exposure: Yes ; Hx Alcohol Use: Yes Alcohol type: wine Hx Substance Use: No Review of Systems Review of Systems: Unobtainable due to reduced consciousness Physical Exam Constitutional: + ill appearing and + thin ENMT: Dry mucous membranes. Neck: trachea midline, no thyromegaly Respiratory: normal respiratory effort, lungs clear to auscultation Cardiovascular: RRR, no murmur, no edema Gastrointestinal (Abdomen): normal bowel sounds, soft, nontender, no hepatosplenomegaly Musculoskeletal: Patient is status post left below the knee amputation Skin: no rashes, warm and dry Neurologic: Nonfocal exam Lymphatic: no cervical lymphadenopathy Results & Data ([facility]) Vital Signs (Past 12 Hours) Vital Signs Temp Pulse Pulse Resp BP BP Pulse Ox 12/27/19 16:00 102 H 20 119/86 100 12/27/19 15:16 106 H 26 H 115/89 100 12/27/19 15:00 106 H 30 H 121/86 100 12/27/19 14:16 109 H 26 H 106/72 100 12/27/19 13:56 100 12/27/19 13:30 36.8 C 110 H 21 114/94 100 Laboratory Results 12/27/19 13:53 12/27/19 13:53 12/27/19 14:52 ABG pH 7.12 L* ABG pCO2 12 L ABG pO2 125 H ABG HCO3 4 L ABG O2 Saturation 98.1 H ABG Base Excess -23.4 L blood alcohol level undetectable Diagnostic Findings Chest x-ray from today was independently reviewed and compared to prior chest x- ray from August 2019. There are nondisplaced posterior rib fractures on the left. A nodular density is identified in the left lower lobe likely representing a nipple shadow. No obvious airspace opacity or pleural effusion or other abnormality identified. Coding Level of Care Code Critical Care 1st 30-74 mins Diagnoses Metabolic acidosis E87.2 Acute hyperglycemia R73.9 Altered mental status R41.82 Altered mental status type: unspecified Renal insufficiency N28.9 Comment 42 minutes critical care time evaluating managing patient with potential life- threatening illness (1) Altered mental status Altered mental status type: unspecified Qualified Code(s): R41.82 - Altered mental status, unspecified
[2019-12-27] MEDS ORDERED: DKA GOAL RANGE 150-250 mg/dl ONE ×2 (16:33→17:41)
[2019-12-27 16:37] LABS: Appearance Urine Clear (Clear); Blood Urine 2+ (Negative); Color Urine Yellow; Glucose Urine UA 2+ (Negative); Ketones Urine 3+ (Negative); Leukocyte Esterase Urine Negative (Negative); Nitrite Urine Negative (Negative); Protein Urine 1+ (Negative); Specific Gravity Urine 1.025 (1.000-1.030); Urobilinogen Urine Negative (Negative); pH Urine 5.5 (4.5-7.5)
[2019-12-27 16:45] LABS: Bilirubin Urine Negative (Negative); Ictotest Urine Negative (Negative)
[2019-12-27 16:46] LABS: Epithelial Cell Urine 0-5 /lpf (0-5); Hyaline Casts Urine 0-5 /lpf (0-5)
[2019-12-27 16:48] LABS: Bacteria Urine Negative (Negative); WBC Urine 0-5 /hpf (0-5)
[2019-12-27] MEDS ORDERED: GLUCOSE 10 TABS/TUBE PO PRN (17:00)
[2019-12-27] MEDS ORDERED: GLUCOSE 40% GEL 15 GM TUBE PO PRN (17:00)
[2019-12-27] MEDS ORDERED: NovoLIN-R BOLUS FROM BAG IV ONE (17:00)
[2019-12-27] MEDS ORDERED: GLUCAGON FOR INJ 1 MG VIAL IM PRN (17:00)
[2019-12-27] MEDS ORDERED: DEXTROSE 50% 50 ML SYRINGE IV PRN (17:00)
[2019-12-27 17:02] LABS: BUN Creatinine Ratio 40.2 (10-20); Calcium 7.7 mg/dl (8.5-10.1); Creatinine Clr Calc Pharmacy 42.6 ml/min; Magnesium 2.4 mg/dl (1.8-2.4); Phosphorus 5.4 mg/dl (2.5-4.9)
[2019-12-27 17:13] LABS: Amphetamines+Metham, Urine Neg (Neg); Barbiturates, Urine Neg (Neg); Benzodiazepine, Urine Neg (Neg); Cocaine, Urine Neg (Neg); MDMA (Ecstacy), Urine Neg (Neg); Methadone, Urine Neg (Neg); Opiate, Urine Neg (Neg); Phencyclidine, Urine Neg (Neg)
[2019-12-27] MEDS: INSULIN REGULAR 250 UNITS in SODIUM CHLORIDE 0.9% 247.5 ML IV SCH ×2 (17:14→17:15)
[2019-12-27 17:21] LABS: Beta-Hydroxybutyrate 161.88 mg/dl (0.2-2.81)
[2019-12-27 17:23] LABS: Influenza A virus by PCR Neg for Influ A (Neg); Influenza B virus by PCR Neg for Influ B (Neg)
[2019-12-27] MEDS ORDERED: INSULIN ASPART 100 UNITS/ML 3 ML PEN SC SCH (17:41)
[2019-12-27] MEDS ORDERED: DC ALL PREVIOUSLY ORDERED DIABETES MEDS ONE (17:41)
[2019-12-27] MEDS ORDERED: INSULIN REGULAR 250 UNITS in SODIUM CHLORIDE 0.9% 247.5 ML IV SCH (17:41)
[2019-12-27] MEDS ORDERED: PHARMACY GLYCEMIC MGMT CONSULT PRN (18:04)
[2019-12-27] MEDS: LACTATED RINGER'S 1,000 ML IV SCH (18:05)
[2019-12-27 18:52] LABS: Magnesium 2.3 mg/dl (1.8-2.4)
[2019-12-27 19:05] LABS: Phosphorus 3.7 mg/dl (2.5-4.9)
[2019-12-27] MEDS: POTASSIUM CHLORIDE PWD 20 MEQ PACK PO SCH ×2 (19:22→22:37)
[2019-12-27] MEDS: PIPERACILLIN/TAZOBACTAM 4.5 GM in DEXTROSE 5% 100 ML IV SCH (19:25)
[2019-12-27] MEDS: NICOTINE 21 MG/24 HR TDSY TD SCH (19:25)
[2019-12-27] MEDS: FOLIC ACID 1 MG in SYRINGE 9.8 ML IV SCH (19:25)
[2019-12-27] MEDS: INSULIN ASPART 100 UNITS/ML 3 ML PEN SC SCH (20:49)
[2019-12-27 21:01] LABS: Beta-Hydroxybutyrate 150.09 mg/dl (0.2-2.81)
[2019-12-27 21:06] LABS: BUN Creatinine Ratio 45.2 (10-20); Calcium 7.8 mg/dl (8.5-10.1); Creatinine Clr Calc Pharmacy 44.2 ml/min; Est GFR (African American) 53.4
[2019-12-27 21:18] LABS: Phosphorus 1.5 mg/dl (2.5-4.9)
[2019-12-27] MEDS: THIAMINE HCL 200 MG in SODIUM CHLORIDE 0.9% 50 ML IV SCH (21:25)
[2019-12-27 21:58] LABS: Magnesium 2.3 mg/dl (1.8-2.4); Potassium 3.6 mmol/L (3.5-5.1)
[2019-12-27] MEDS ORDERED: POTASSIUM PHOS 3 MMOL/1 ML INFUSION IV STA (22:19)
[2019-12-27 22:32] LABS: Beta-Hydroxybutyrate 125.7 mg/dl (0.2-2.81)
[2019-12-27] MEDS: POTASSIUM CHLORIDE / WTR 10 MEQ/100 ML PLCT IV SCH ×2 (22:37→23:43)
[2019-12-27] MEDS ORDERED: POTASSIUM PHOSPHATE 24 MMOL in SODIUM CHLORIDE 0.9% 500 ML IV ONE (22:45)
[2019-12-28] MEDS ORDERED: PIPERACILLIN/TAZOBACTAM 3.375 GM in DEXTROSE 5% 100 ML IV SCH
[2019-12-28] MEDS ORDERED: PANTOprazole 80 MG in DEXTROSE 5% 100 ML IV ONE (00:39)
[2019-12-28] MEDS ORDERED: PANTOPRAZOLE BOLUS/DRIP 1 EA IV STA (00:39)
[2019-12-28] MEDS ORDERED: METOCLOPRAMIDE HCL INJ 5 MG/ML 2 ML VIAL IV ONE (00:44)
[2019-12-28] MEDS ORDERED: SODIUM CHLORIDE 0.9% 250 ML IV PRN ×2 (01:08→04:57)
[2019-12-28 01:09] LABS: BUN Creatinine Ratio 40.6 (10-20); Calcium 7.9 mg/dl (8.5-10.1); Creatinine Clr Calc Pharmacy 38.8 ml/min; Est GFR (African American) 45.7; Est GFR (Non-African American) 39.4; Magnesium 2.1 mg/dl (1.8-2.4); Phosphorus 0.6 mg/dl (2.5-4.9); Potassium 5.6 mmol/L (3.5-5.1)
[2019-12-28 01:11] LABS: Hematocrit (blood only) 18.8 % (37-47); Hemoglobin 6.5 g/dL (12.0-16.0)
[2019-12-28] MEDS: PANTOprazole 40 MG in DEXTROSE 5% 100 ML IV SCH ×5 (01:12→20:13)
--- NOTE | 2019-12-28 01:12 | Communication Note ---
Date of Service: December 28, 2019 At approximately 0030, I was approached by nursing staff and informed the patient had coffee-ground emesis. Upon assessment, the patient does have a smal l amount of coffee-ground emesis on her gown with concerning red tinge around the borders. Patient has been baseline hypotensive throughout the night, but has been maintaining maps to this point. Her blood pressures appear to drop. Heart rate has seemed to escalate into the 120s to 130s. Immediate orders were placed for repeat H&H as well as type and screen. H&H was found to have a substantial drop from 13.1/39.8 to 6.5/18.8. Immediately, orders were placed for transfusion of packed red cells. I did reach out to hospitalist service who presented to the ICU to help obtain blood consent. 0118 -did reach out to the patient's mother who is listed as her point of contact (Joan - [phone]). I informed her of the situation and discussed need for emergent transfusion. She provides consent to myself as well as Dr. Nelson. Additionally, I did discuss further procedures including central line, arterial line, and intubation if necessary. She verbally consents to all emergent procedures as necessary. While waiting for blood to arrive at bedside, orders were placed for albumin as well as crystalloid bolus. Orders were placed for pressors. Patient was provided 2 A of bicarb as well as calcium chloride. Her potassium was previously noted at 5.7. While this may be related to error in drawing as other labs from draw noticed hemolysis, must consider this accurate in the current setting. With the addition of pressors as well as the above-mentioned medications, the patient did have normalization of her hemodynamic status. An arterial line had been placed by myself emergently at bedside. At this point, the patient was noted to be more obtunded and was having bloody secretions from the mouth. I spoke with anesthesia who kindly reported to the bedside. The patient was emergently intubated without issue. She remained hemodynamically stable throughout and did not drop her saturations. Spoke with on-call [facility] city routeman. Explained current situation. He suggests continued resuscitative efforts and he will reassess patient in the next few hours for need for emergent upper endoscopy. I agree that patient still requires some resuscitative efforts prior to performing endoscopy. During intubation, I was able to appreciate coffee-ground material in the epiglottic region. We will continue to resuscitate with blood products. RIGHT IJ CVL was placed by myself. Chest x-ray demonstrates no acute findings post procedure. Orders placed for sedation as well as repeat laboratory assessment. Patient remains hemodynamically stable at this time. I have personally spent 85 minutes of critical care time in the direct management of this patient. This is a life/limb threatening event. This includes time spent evaluating patient, direct bedside care, chart review, placing orders, interpretation of diagnostic studies, discussion with consultants, patient, and family members, as well as other required patient management activities. This time is exclusive of all separately billable procedures, and teaching time and separate from and in addition to any other critical care service time. Coding Level of Care Code Critical Care 1st 30-74 mins Time Spent (min) 85
[2019-12-28 01:15] LABS: Gastric Occult Blood Positive (Negative)
[2019-12-28] MEDS ORDERED: OCTREOTIDE ACETATE 500 MCG in 0.9 % SODIUM CHLORIDE 100 ML IV SCH (01:15)
[2019-12-28] MEDS ORDERED: OCTREOTIDE ACETATE 50 MCG in SYRINGE 9.5 ML IV STA (01:15)
[2019-12-28 01:16] LABS: pH Gastric Fluid 3
[2019-12-28] MEDS ORDERED: PHENYLEPHRINE 100MCG/ML 5ML SYR IV PRN (01:50)
[2019-12-28] MEDS ORDERED: STAT IV Infusion **Titration per Protocol STA ×3 (02:47→05:42)
--- NOTE | 2019-12-28 02:52 | Procedure Note ---
Procedure Note Date of Service December 28, 2019 Procedure: Pin Drafting Machine Operator Indwelling Peripherally Inserted IV Catheter Placement Attending: Dr. Tobias APC: Michael De Santiago PA-C Indication: Need for IV Access, Poor Vascular Access Anesthesia: None Verbal consent was obtained from patient prior to performing the procedure. A time-out was completed verifying correct patient, procedure, site, positioning, and implant(s) or special equipment if applicable. Utilizing bedside ultrasound, vascularity of the LEFT upper extremity was assessed. Vessel size was noted for appropriate catheter selection and skin was marked with gentle pressure. Patients LEFT upper extremity was prepped and draped in the usual sterile fashion utilizing chlorhexidine. Ultrasound guidance was used to aid needle placement. An 18 g Endurance Catheter was introduced into the LEFT brachial vein under direct ultrasound guidance. Guide wire was easily deployed without resistance. Catheter was threaded over the guide wire without resistance and the entire apparatus was removed intact. Good venous blood return was noted in the catheter. The IV catheter was easily flushed with sterile saline flush. Sterile clave was attached to the end of the catheter and good blood return was again noted. Tourniquet was released. StatLock device and sterile dressing were applied. The patient tolerated the procedure well. Blood Loss: Minimal Complications: None Procedural Ultrasound Guidance: Procedure Date: 12/28/2019 Indication: Poor Vascular Access Attending: Dr. Tobias APC: Michael De Santiago PA-C Artery/Veins Identified: YES Access confirmed in Vein with ultrasound: YES Complications: NONE Patient tolerated procedure: WELL Coding
--- NOTE | 2019-12-28 02:53 | Procedure Note ---
Procedure Note Date of Service December 28, 2019 Procedure: Internal Jugular Central Line Placement Attending: Dr. Tobias APC: Michael De Santiago PA-C Indication: Central Drug Administration, Poor Venous Access, Multiple Lab Draws Necessary, etc. Anesthesia: Lidocaine 1% Emergent consent implied in the setting of poor vascular access and need for multiple medications in the upper GI bleed patient as well as patient requiring continued sedation with intubation. Patient's mother verbally consents over the phone for any/all life-saving procedures necessary at this time. A time-out was completed verifying correct patient, procedure, site, positioning, and implants(s) or special equipment if applicable. Patients RIGHT Neck was cleansed and draped in the typical sterile fashion using Chloraprep. The Internal Jugular Vein and Carotid Artery were identified using ultrasound. The superficial tissue was anesthetized using 3.0 mL of 1% lidocaine without epinephrine under direct visualization with the ultrasound. After adequate anesthetization was achieved, the Internal Jugular vein was cannulated under direct ultrasound guidance using an introducer needle on a syringe. Good venous blood return was maintained prior to removal of syringe from introducer needle. Using Seldinger Technique, a guide wire was advanced through the introducer needle without resistance. The introducer needle was removed and ultrasound images were obtained of the guide wire within the Internal Jugular Vein and saved to the patients medical record. The dilator was advanced to the vessel without resistance. No skin ruy was made. The dilator was exchanged for the triple lumen catheter which was advanced into the vessel without resistance. The guide wire was removed intact from the catheter without issue. Claves were placed on each catheter tip with confirmation of good blood flow from each lumen. Each port was easily flushed with sterile saline. The catheter was placed at 15 cm and sutured in place. BioPatch was applied to the catheter and a sterile Tegaderm dressing was applied over the catheter with careful attention to sterility. Patient tolerated procedure well. No immediate complications were met. Post procedure x-ray was completed, placement was appropriate and no pneumothorax was noted. Images obtained are saved for permanent record Procedural Ultrasound Guidance: Procedure Date: 12/28/2019 Indication: Pressors, Multiple Medications, Poor peripheral vascular access, Frequent lab draws Attending: Dr. Tobias APC: Michael De Santiago PA-C Artery AND Vein visualized: YES Compressible Vein: YES Guidewire or Short Catheter seen in vein prior to dilation: YES Line confirmed in Vein with ultrasound: YES Images obtained are saved for permanent record. Coding CPT Codes Tubes, Drains, and Vasc Access - Tubes, Drains, and Vasc Access: [id number] Insertion Of Non-tunneled Catheter Age 5 Yrs> ([id number]) Tubes, Drains, and Vasc Access - Tubes, Drains, and Vasc Access: [id number] Ultrasound Guidance For Vascular ([id number]) [facility] [place] Procedure Codes (Charges) Tubes, Drains, and Vasc Access Procedure 2: Tubes, Drains, and Vasc Access: [id number] Insertion Of Non-tunneled Catheter Age 5 Yrs> Procedure 3: Tubes, Drains, and Vasc Access: [id number] Ultrasound Guidance For Vascular
--- NOTE | 2019-12-28 02:53 | Procedure Note ---
Procedure Note Date of Service December 28, 2019 APC: Michael De Santiago PA-C. Attending: Dr. Tobias A time-out was completed verifying correct patient, procedure, site, positioning. Patient was evaluated and required intubation for airway protection in the setting of UBIG. Sedative agent used: Etomidate Paralysis agent used: Rocuronium Emergent consent was implied given patients rapidly declining clinical status and need for airway protection The patient was prepared in the appropriate fashion. Sedation was achieved utilizing etomidate and rocuronium, per Dr. Morales administration. The patient was easily ventilated using [id number] to achieve adequate oxygenation. A grade 1 view with moderate amounts of coffee-ground material were noted in the oropharynx and occluding the view of the vocal cords. Suctioning was performed with mild improvement of view. A 7.5 Sinhala endotracheal tube was placed using Glidescope to 24 cm at the lip. The stylette was removed and balloon was inflated with 10mL of air. Appropriate Colorimetric change was appreciated. Bilateral breath sounds were heard without air sounds in the abdomen. Dr. Morales was present for the entire procedure. Post Intubation Chest X-ray confirms placement without pneumothorax. Patient tolerated the procedure well and there were no immediate complications. Coding CPT Codes Resuscitation - Resuscitation: [id number] Endotracheal Intubation, emergency ([id number]) [facility] [place] Procedure Codes (Charges) Resuscitation Resuscitation: [id number] Endotracheal Intubation, emergency
--- NOTE | 2019-12-28 02:53 | Procedure Note ---
Procedure Note Date of Service December 28, 2019 Procedure: Arterial Line Placement Attending: Dr. Tobias APC: Michael De Santiago PA-C Indication: Monitoring on Pressors Anesthesia: Lidocaine 1% Emergent consent implied in the setting of rapid decompensation and need for close hemodynamic monitoring in the upper GI bleed patient who is unable to provide consent. Patient's mother is point of contact and provides verbal consent for any/all procedures. A time-out was completed verifying correct patient, procedure, site, positioning, and implant(s) or special equipment if applicable. Allens test was performed to ensure adequate perfusion. Patients RIGHT wrist was prepped and draped in the usual sterile fashion. Ultrasound guidance was used to aid needle placement. A 20g Arrow arterial line was introduced into the RIGHT Radial artery. Catheter was threaded, and the needle was removed with appropriate blood return. Good waveform was observed. The patient tolerated the procedure well. Confirmation of placement with ultrasound. Blood Loss: Minimal Complications: None Procedural Ultrasound Guidance: Procedure Date: 12/28/2019 Indication: Pressors, ABGs, Lab Draws Attending: Dr. Tobias APC: Michael De Santiago PA-C Artery Identified: YES Line confirmed in Artery with ultrasound: YES Complications: NONE Patient tolerated procedure: WELL Coding CPT Codes Tubes, Drains, and Vasc Access - Tubes, Drains, and Vasc Access: [id number] Place Catheter In Artery ([id number]) [facility] [place] Procedure Codes (Charges) Tubes, Drains, and Vasc Access Procedure 1: Tubes, Drains, and Vasc Access: [id number] Place Catheter In Artery
[2019-12-28] MEDS ORDERED: PROPOFOL IV EMULSION 10 MG/ML 100 ML VIAL IV ONE (02:58)
[2019-12-28] MEDS: LACTATED RINGER'S 1,000 ML IV SCH ×4 (03:03→17:19)
[2019-12-28] MEDS: NOREPINEPHRINE (Adult) 8 MG in DEXTROSE 5% 500 ML IV SCH ×2 (03:05→08:54)
[2019-12-28] MEDS: POTASSIUM CHLORIDE PWD 20 MEQ PACK PO SCH ×2 (03:06→08:28)
[2019-12-28] MEDS: propofoL 1,000 MG/100 ML VIAL IV SCH ×3 (03:09→21:49)
[2019-12-28] MEDS ORDERED: PNEUMOCOCCAL Polysaccharide Vaccine 25mcg/0.5mL vial/Syr IM ONE (03:15)
[2019-12-28] MEDS: ALBUMIN 25% 50 ML IV SCH ×2 (03:19→03:20)
[2019-12-28] MEDS: PIPERACILLIN/TAZOBACTAM 4.5 GM in DEXTROSE 5% 100 ML IV SCH ×3 (03:25→20:13)
[2019-12-28] MEDS: fentaNYL citrate 100 MCG/2 ML VIAL IV PRN ×4 (03:54→23:58)
[2019-12-28 04:39] LABS: Base Excess ABG -5.8 mEq/L (-9-1.8); HCO3 ABG 19 mmol/L (19-24); Oxygen Saturation ABG 99.3 % (90-95); PCO2 ABG 32 mmHg (35-46); PO2 ABG 161 mmHg (80-95); pH ABG 7.38 (7.35-7.45)
[2019-12-28 04:41] LABS: INR 1.3 (0.9-1.1)
[2019-12-28 04:43] LABS: Allen Test POS (Pos)
[2019-12-28 04:53] LABS: Hematocrit (blood only) 21.8 % (37-47); Hemoglobin 7.8 g/dL (12.0-16.0); Mean Corpuscular Hgb Conc 35.8 g/dL (32-36); Mean Corpuscular Volume 83.8 fL (80-100); Mean Platelet Volume 9.3 fL (7.4-10.4); Platelet Count 82 K/uL (130-400); RDW Coefficient of Variation 14.4 % (11.5-14.5); RDW Standard Deviation 44.2 fL (36.4-46.3); White Blood Count 5.92 K/uL (4.8-10.8)
[2019-12-28 04:54] LABS: Albumin Level 2.1 gm/dl (3.4-5.0); BUN Creatinine Ratio 49.2 (10-20); Bilirubin Direct 0.4 mg/dl (0-0.2); Bilirubin,Total 1.3 mg/dl (0.2-1); Calcium 8.1 mg/dl (8.5-10.1); Creatinine Clr Calc Pharmacy 45.2 ml/min; Est GFR (African American) 54.9; Est GFR (Non-African American) 47.4; Immature Granulocytes # (auto) 0.01 K/uL (0.00-0.02); Immature Granulocytes % (auto) 0.2 %; Lymphocytes # (auto) 0.74 K/uL (1.2-3.4); Lymphocytes % (auto) 12.5 %; Magnesium 1.7 mg/dl (1.8-2.4); Monocytes # (auto) 0.42 K/uL (0.11-0.59); Monocytes % (auto) 7.1 %; Neutrophils # (auto) 4.75 K/uL (1.4-6.5); Neutrophils % (auto) 80.2 %; Phosphorus 0.7 mg/dl (2.5-4.9); Platelet Estimate Decreased (Normal); Potassium 4.3 mmol/L (3.5-5.1); RBC Morphology Unremarkable
[2019-12-28 04:59] LABS: Total Protein 3.8 gm/dl (6.4-8.2)
[2019-12-28] MEDS: PROPOFOL BOLUS FROM BAG IV PRN ×2 (05:03→06:30)
[2019-12-28] MEDS ORDERED: CALCIUM CHLORIDE 10% 1,000 MG in SODIUM CHLORIDE 0.9% 50 ML IV STA ×2 (05:11→09:03)
[2019-12-28] MEDS ORDERED: VASOPRESSIN 20 UNITS in 0.9 % SODIUM CHLORIDE 100 ML IV SCH (05:15)
[2019-12-28 05:28] LABS: Beta-Hydroxybutyrate 53.24 mg/dl (0.2-2.81)
[2019-12-28 05:57] LABS: Estimated Average Glucose 381 mg/dl; Hemoglobin A1C 14.9 % (4.5-5.6)
[2019-12-28] MEDS: PHENYLEPHRINE HCL 20 MG in DEXTROSE 5% 500 ML IV SCH ×2 (06:05→18:14)
--- NOTE | 2019-12-28 06:17 | Gastrointestinal Consultation ---
Date of Consultation December 28, 2019 Assessment & Plan (1) Hematemesis: Emergent bedside EGD History of Present Illness Attending Physician: Alfonso Valencia 54 yrs old female patient presented with DKA, currently intubated in the ICU on 3 vasopressors, GI consulted for drop in H/H and coffee ground material in NG tube with suspect of massive UGIB. Spoke to her mother and consent obtained for EGD. Allergies Allergy/AdvReac Type Severity Reaction Status Date / Time haloperidol [From Haldol] AdvReac Unknown Verified 12/17/19 09:26 Home Medications Home Medications Medication Instructions Recorded Confirmed Type trazodone 50 mg tablet 50 mg PO HS #30 tab 06/18/19 12/17/19 Rx cholecalciferol (vitamin D3) 25 1,000 units PO PM 06/23/19 12/17/19 History mcg (1,000 unit) capsule ferrous sulfate 325 mg (65 mg 325 mg PO Q OTHER DAY tab 06/23/19 12/17/19 History iron) tablet,delayed release folic acid 400 mcg tablet 400 mcg PO PM 06/23/19 12/17/19 History multivitamin 1 tab PO PM 06/23/19 12/17/19 History vitamin E (dl, acetate) 400 unit 400 units PO PM 06/23/19 12/17/19 History capsule gabapentin 300 mg capsule 300 mg PO TID #270 cap 07/19/19 12/17/19 Rx cyanocobalamin (vitamin B-12) 1,000 mcg PO PM 08/12/19 12/17/19 History [Vitamin B-12] pantoprazole [Protonix] 40 mg PO DAILY PRN 08/12/19 12/17/19 History cyclobenzaprine 10 mg tablet 10 mg PO BID PRN #20 tab 08/30/19 12/17/19 Rx duloxetine 60 mg capsule,delayed 60 mg PO QAM #30 cap 08/30/19 12/17/19 Rx release fhhafd-urrdmgps-pgaglar 1 cap PO TID #90 cap 08/30/19 12/17/19 Rx 6,000-19,000-30,000 unit capsule,delayed rel ondansetron 4 mg PO Q6 PRN #14 tab 10/15/19 12/17/19 Rx buspirone 5 mg tablet 5 mg PO BID #60 tab 10/19/19 12/17/19 Rx Jardiance 10 mg PO QAM 10/29/19 12/17/19 History clobetasol 1 appln TOP DAILY PRN 10/29/19 12/17/19 History clobetasol 0.05 % topical foam 1 appln TOP BID #100 gm 11/01/19 12/17/19 Rx duloxetine [Cymbalta] 20 mg PO QPM 11/05/19 12/17/19 History hydroxyzine pamoate [Vistaril] 25 mg PO DAILY PRN 11/05/19 12/17/19 History guselkumab 100 mg/mL subcutaneous See Rx Instructions .ROUTE 12/03/19 12/17/19 Rx auto-injector .COMPLEX #1 milliliter cephalexin 500 mg capsule 500 mg PO QID 10 Days #40 cap 12/17/19 12/17/19 Rx nystatin 100,000 unit/gram topical 1 appln TOP TID #30 gm 12/17/19 12/17/19 Rx ointment Patient History Medical History Abnormal blood sugar A1C LEVELS FLUCTUATE Abnormal TSH Alcohol intoxication (Inactive) RESOLVED PER PATIENT Alcohol withdrawal seizure (Resolved) NOT REPORTED BY PATIENT AT TIME OF PAT CALL - LAST EPISODE OVER A YEAR AGO Anxiety (Chronic) Unable to establish regular follow-up with psychiatry Bimalleolar ankle fracture (Resolved) Bowel habit changes RESOLVED Chronic pancreatitis (Chronic) Cirrhosis of liver (Chronic) "COMPROMISED LIVER" Depression (Chronic) Unable to establish regular follow-up with psychiatry Diabetes mellitus (Chronic) TYPE 2 "SECONDARY" Encephalomalacia (Acute) Exocrine pancreatic insufficiency (Acute) History of alcohol consumption (Chronic) History of dizziness NOT CURRENTLY History of fracture TAILBONE - FLARES UP WITH WEATHER CHANGES Hydrosalpinx PT UNAWARE Hypothyroidism told this 10 yrs ago> no meds Insomnia IPMN (intraductal papillary mucinous neoplasm) Lipoma NECK Liver cirrhosis, alcoholic (Acute) Nausea & vomiting (Inactive) RESOLVED Neuropathy (Chronic) OF FOOT Nicotine dependence (Chronic) Pancreatic insufficiency (Chronic) Peripheral neuropathy (Acute) RESOLVING PER PATIENT Polycystic ovarian syndrome (Chronic) Psoriasis (Acute) SBO (small bowel obstruction) (Resolved) Resolved Vitamin D deficiency Surgical History Amputation of left lower extremity TO APPROX MID [place] History of ankle surgery 02/2019 left ankle ex fix, grade 2 view with MAC 3 and 7.0 ETT History of tooth extraction Family History Uncle Diabetes Mother Breast cancer Sister Breast cancer Father Prostate cancer Other Family history of breast cancer in mother Family history of breast cancer in sister Denies family history of Ovarian cancer Myocardial infarction Colorectal cancer Social History (Updated 12/27/19 @ 19:17 by Alfonso Valencia) Preferred Language: Greenlandic Communication Ability: Impaired Visual Impairment: No Limitations 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 Internship Required: No Beliefs That Will Affect Care: None marital status: marital status details: no children Current Living Situation: Alone current occupational status: disabled Other Information That Helps Us Care for You: No Feels Safe at Home: Declines to Answer Smoking Status: Current every day smoker Tobacco Type: cigarettes ; packs per day: 0.75 ; Cigarettes Per Day: 15 CIGS PER DAY ; Second Hand Exposure: Yes ; Hx Alcohol Use: Yes (uncertain amount ) Alcohol type: wine Hx Substance Use: No Review of Systems Review of Systems: Unobtainable due to endotracheal tube Physical Exam Respiratory: normal respiratory effort, lungs clear to auscultation Cardiovascular: RRR, no murmur, no edema Gastrointestinal (Abdomen): normal bowel sounds, soft, nontender, no hepatosplenomegaly Results & Data ([facility]) Vital Signs (Past 12 Hours) Vital Signs Temp Pulse Pulse Resp BP Pulse Ox 12/28/19 05:34 134 H 80/61 L 100 12/28/19 05:07 37.7 C H 126 H 28 H 81/53 L 100 12/28/19 05:00 128 H 23 100 12/28/19 04:33 130 H 89/63 L 100 12/28/19 04:32 133 H 72/54 L 100 12/28/19 04:30 126 H 100 12/28/19 04:16 124 H 95/64 L 100 12/28/19 04:05 120 H 92/63 L 100 12/28/19 04:01 118 H 99/62 L 100 12/28/19 04:00 37.7 C H 133 H 28 H 78/53 L 100 12/28/19 03:48 128 H 100 12/28/19 03:47 127 H 84/66 L 100 12/28/19 03:45 130 H 100 12/28/19 03:30 114 H 100 12/28/19 03:15 109 H 100 12/28/19 03:01 121 H 100 12/28/19 03:00 121 H 113/68 100 12/28/19 02:46 125 H 133/75 12/28/19 02:45 126 H 12/28/19 02:44 128 H 147/113 H 12/28/19 02:42 129 H 126/75 12/28/19 02:40 122 H 128/74 12/28/19 02:38 123 H 134/74 12/28/19 02:36 127 H 152/80 H 12/28/19 02:34 121 H 152/86 H 100 12/28/19 02:33 120 H 20 152/86 H 100 12/28/19 02:32 120 H 150/79 H 100 12/28/19 02:31 119 H 100 12/28/19 02:30 116 H 142/80 H 100 12/28/19 02:28 113 H 141/76 H 100 12/28/19 02:26 111 H 138/75 100 12/28/19 02:24 110 H 133/74 100 12/28/19 02:22 110 H 147/77 H 100 12/28/19 02:20 110 H 131/81 100 12/28/19 02:18 111 H 149/82 H 100 12/28/19 02:16 111 H 152/85 H 12/28/19 02:15 111 H 100 12/28/19 02:14 108 H 160/82 H 100 12/28/19 02:12 111 H 145/85 H 100 12/28/19 02:10 112 H 27 H 96/77 L 100 12/28/19 02:08 113 H 25 H 117/73 100 12/28/19 02:06 117 H 23 122/72 12/28/19 02:03 120 H 24 126/73 100 12/28/19 02:02 110 H 29 H 99/69 L 12/28/19 02:01 109 H 21 12/28/19 02:00 109 H 28 H 100/58 L 12/28/19 01:58 110 H 23 98/50 L 12/28/19 01:57 111 H 33 H 77/59 L 97 12/28/19 01:55 112 H 22 77/59 L 12/28/19 01:53 113 H 22 87/52 L 100 12/28/19 01:48 132 H 26 H 72/46 L 100 12/28/19 01:46 122 H 28 H 100 12/28/19 01:45 125 H 30 H 65/47 L 100 12/28/19 01:30 125 H 44 H 88 L 12/28/19 01:15 125 H 40 H 51 L 12/28/19 01:08 127 H 37 H 77/44 L 92 12/28/19 01:00 128 H 41 H 100 12/28/19 00:53 130 H 36 H 84/57 L 95 12/28/19 00:36 125 H 27 H 77/49 L 99 12/28/19 00:28 126 H 22 80/50 L 100 12/28/19 00:25 125 H 22 71/49 L 100 12/28/19 00:22 130 H 15 93/69 L 100 12/28/19 00:21 127 H 26 H 77/54 L 100 12/27/19 23:24 122 H 29 H 83/57 L 100 12/27/19 22:52 118 H 29 H 87/53 L 99 12/27/19 21:29 118 H 28 H 87/56 L 100 12/27/19 20:25 120 H 26 H 83/52 L 100 12/27/19 19:25 114 H 24 83/60 L 98 12/27/19 19:10 114 H 12/27/19 18:27 108 H 20 98 12/27/19 18:26 110 H 24 105/49 L 99 Laboratory Results Laboratory Results - last 24 hr 12/27/19 12/27/19 12/27/19 13:53 13:53 13:53 WBC 14.11 H RBC 4.15 L Hgb 13.1 Hct 39.8 MCV 95.9 MCH 31.6 MCHC 32.9 RDW Std Deviation 47.2 H RDW Coeff of Ethel 13.4 Plt Count 235 MPV 10.2 Immature Gran % (Auto) 0.4 Neut % (Auto) 90.8 Lymph % (Auto) 2.6 Garvin % (Auto) 6.1 Eos % (Auto) 0.0 Baso % (Auto) 0.1 Immature Gran # (Auto) 0.05 H Neut # (Auto) 12.83 H Lymph # (Auto) 0.36 L Garvin # (Auto) 0.86 H Eos # (Auto) 0.00 Baso # (Auto) 0.01 Absolute Nucleated RBC 0.02 H Nucleated RBC % (auto) 0.2 Platelet Estimate RBC Morphology PT 10.1 INR 1.0 APTT 27.5 PTT Ratio 1.0 ABG pH ABG pCO2 ABG pO2 ABG HCO3 ABG O2 Saturation ABG Base Excess Archie Test VBG pH Barometric Pressure Oxygen Given Sodium 122 L Potassium 2.6 L Chloride 75 L Carbon Dioxide 6 L* Anion Gap 41.0 H BUN 52 H Creatinine 1.73 H Est Cr Clr Drug Dosing 33.5 Est GFR ( Amer) 38.1 Est GFR (Non-Af Amer) 32.9 BUN/Creatinine Ratio 30.2 H Glucose 830 H* POC Glucose POC Glucose (other) Estimat Average Glucose Hemoglobin A1c Lactate Calcium 8.6 Phosphorus Magnesium 3.0 H Total Bilirubin 0.9 Direct Bilirubin AST 19 ALT 30 Alkaline Phosphatase 126 H Ammonia Total Creatine Kinase 239 H Troponin I < 0.015 Total Protein 7.3 Albumin 3.3 L Globulin 4.0 Albumin/Globulin Ratio 0.8 L Beta-Hydroxybutyric Acd TSH 0.859 Urine Color Urine Appearance Urine pH Ur Specific Thaxton Urine Protein Urine Glucose (UA) Urine Ketones Urine Blood Urine Nitrite Urine Bilirubin Urine Urobilinogen Ur Leukocyte Esterase Urine RBC Urine WBC Ur Epithelial Cells Urine Bacteria Hyaline Casts Nasal Screen MRSA (PCR) Gastric Fluid pH Gastric Occult Blood Salicylates Urine Opiates Screen Ur Methadone, Qual Acetaminophen Urine Barbiturates Ur Phencyclidine (PCP) U Amphetamin/Meth Scrn MDMA (Ecstasy) Screen U Benzodiazepines Scrn Ur Cocaine Metabolite U Marijuana (THC) Screen Ethyl Alcohol mg/dL Influenza Type A (PCR) Influenza Type B (PCR) Blood Type Antibody Screen Crossmatch 12/27/19 12/27/19 12/27/19 13:53 13:53 14:39 WBC RBC Hgb Hct MCV MCH MCHC RDW Std Deviation RDW Coeff of Ehtel Plt Count MPV Immature Gran % (Auto) Neut % (Auto) Lymph % (Auto) Garvin % (Auto) Eos % (Auto) Baso % (Auto) Immature Gran # (Auto) Neut # (Auto) Lymph # (Auto) Garvin # (Auto) Eos # (Auto) Baso # (Auto) Absolute Nucleated RBC Nucleated RBC % (auto) Platelet Estimate RBC Morphology PT INR APTT PTT Ratio ABG pH ABG pCO2 ABG pO2 ABG HCO3 ABG O2 Saturation ABG Base Excess Archie Test VBG pH Barometric Pressure Oxygen Given Sodium Potassium Chloride Carbon Dioxide Anion Gap BUN Creatinine Est Cr Clr Drug Dosing Est GFR ( Amer) Est GFR (Non-Af Amer) BUN/Creatinine Ratio Glucose POC Glucose POC Glucose (other) Estimat Average Glucose 381 Hemoglobin A1c 14.9 H Lactate Cancelled Calcium Phosphorus Magnesium Total Bilirubin Direct Bilirubin AST ALT Alkaline Phosphatase Ammonia Total Creatine Kinase Troponin I Total Protein Albumin Globulin Albumin/Globulin Ratio Beta-Hydroxybutyric Acd TSH Urine Color Urine Appearance Urine pH Ur Specific Th[place]xton Urine Protein Urine Glucose (UA) Urine Ketones Urine Blood Urine Nitrite Urine Bilirubin Urine Urobilinogen Ur Leukocyte Esterase Urine RBC Urine WBC Ur Epithelial Cells Urine Bacteria Hyaline Casts Nasal Screen MRSA (PCR) Gastric Fluid pH Gastric Occult Blood Salicylates Urine Opiates Screen Ur Methadone, Qual Acetaminophen Urine Barbiturates Ur Phencyclidine (PCP) U Amphetamin/Meth Scrn MDMA (Ecstasy) Screen U Benzodiazepines Scrn Ur Cocaine Metabolite U Marijuana (THC) Screen Ethyl Alcohol mg/dL < 3.0 Influenza Type A (PCR) Influenza Type B (PCR) Blood Type Antibody Screen Crossmatch 12/27/19 12/27/19 12/27/19 14:52 16:02 16:23 WBC RBC Hgb Hct MCV MCH MCHC RDW Std Deviation RDW Coeff of Ethel Plt Count MPV Immature Gran % (Auto) Neut % (Auto) Lymph % (Auto) Garvin % (Auto) Eos % (Auto) Baso % (Auto) Immature Gran # (Auto) Neut # (Auto) Lymph # (Auto) Garvin # (Auto) Eos # (Auto) Baso # (Auto) Absolute Nucleated RBC Nucleated RBC % (auto) Platelet Estimate RBC Morphology PT INR APTT PTT Ratio ABG pH 7.12 L* ABG pCO2 12 L ABG pO2 125 H ABG HCO3 4 L ABG O2 Saturation 98.1 H ABG Base Excess -23.4 L Archie Test Pos VBG pH Barometric Pressure 733.4 Oxygen Given ROOM AIR Sodium Potassium Chloride Carbon Dioxide Anion Gap BUN Creatinine Est Cr Clr Drug Dosing Est GFR ( Amer) Est GFR (Non-Af Amer) BUN/Creatinine Ratio Glucose POC Glucose > 600 H* POC Glucose (other) Estimat Average Glucose Hemoglobin A1c Lactate Calcium Phosphorus Magnesium Total Bilirubin Direct Bilirubin AST ALT Alkaline Phosphatase Ammonia Total Creatine Kinase Troponin I Total Protein Albumin Globulin Albumin/Globulin Ratio Beta-Hydroxybutyric Acd TSH Urine Color Yellow Urine Appearance Clear Urine pH 5.5 Ur Specific Thaxton 1.025 Urine Protein 1+ H Urine Glucose (UA) 2+ H Urine Ketones 3+ H Urine Blood 2+ H Urine Nitrite Negative Urine Bilirubin Negative Urine Urobilinogen Negative Ur Leukocyte Esterase Negative Urine RBC 10-30 H Urine WBC 0-5 Ur Epithelial Cells 0-5 Urine Bacteria Negative Hyaline Casts 0-5 Nasal Screen MRSA (PCR) Gastric Fluid pH Gastric Occult Blood Salicylates Urine Opiates Screen Ur Methadone, Qual Acetaminophen Urine Barbiturates Ur Phencyclidine (PCP) U Amphetamin/Meth Scrn MDMA (Ecstasy) Screen U Benzodiazepines Scrn Ur Cocaine Metabolite U Marijuana (THC) Screen Ethyl Alcohol mg/dL Influenza Type A (PCR) Influenza Type B (PCR) Blood Type Antibody Screen Crossmatch 12/27/19 12/27/19 12/27/19 16:23 16:25 16:26 WBC RBC Hgb Hct MCV MCH MCHC RDW Std Deviation RDW Coeff of Ethel Plt Count MPV Immature Gran % (Auto) Neut % (Auto) Lymph % (Auto) Garvin % (Auto) Eos % (Auto) Baso % (Auto) Immature Gran # (Auto) Neut # (Auto) Lymph # (Auto) Garvin # (Auto) Eos # (Auto) Baso # (Auto) Absolute Nucleated RBC Nucleated RBC % (auto) Platelet Estimate RBC Morphology PT INR APTT PTT Ratio ABG pH ABG pCO2 ABG pO2 ABG HCO3 ABG O2 Saturation ABG Base Excess Archie Test VBG pH Barometric Pressure Oxygen Given Sodium Potassium Chloride Carbon Dioxide Anion Gap BUN Creatinine Est Cr Clr Drug Dosing Est GFR ( Amer) Est GFR (Non-Af Amer) BUN/Creatinine Ratio Glucose POC Glucose POC Glucose (other) Estimat Average Glucose Hemoglobin A1c Lactate Calcium Phosphorus Magnesium Total Bilirubin Direct Bilirubin AST ALT Alkaline Phosphatase Ammonia 36.0 H Total Creatine Kinase Troponin I Total Protein Albumin Globulin Albumin/Globulin Ratio Beta-Hydroxybutyric Acd TSH Urine Color Urine Appearance Urine pH Ur Specific [place]xton Urine Protein Urine Glucose (UA) Urine Ketones Urine Blood Urine Nitrite Urine Bilirubin Urine Urobilinogen Ur Leukocyte Esterase Urine RBC Urine WBC Ur Epithelial Cells Urine Bacteria Hyaline Casts Nasal Screen MRSA (PCR) Gastric Fluid pH Gastric Occult Blood Salicylates Urine Opiates Screen Neg Ur Methadone, Qual Neg Acetaminophen Urine Barbiturates Neg Ur Phencyclidine (PCP) Neg U Amphetamin/Meth Scrn Neg MDMA (Ecstasy) Screen Neg U Benzodiazepines Scrn Neg Ur Cocaine Metabolite Neg U Marijuana (THC) Screen Neg Ethyl Alcohol mg/dL Influenza Type A (PCR) Neg for Influ A Influenza Type B (PCR) Neg for Influ B Blood Type Antibody Screen Crossmatch 12/27/19 12/27/19 12/27/19 16:26 16:26 18:11 WBC RBC Hgb Hct MCV MCH MCHC RDW Std Deviation RDW Coeff of Ethel Plt Count MPV Immature Gran % (Auto) Neut % (Auto) Lymph % (Auto) Garvin % (Auto) Eos % (Auto) Baso % (Auto) Immature Gran # (Auto) Neut # (Auto) Lymph # (Auto) Garvin # (Auto) Eos # (Auto) Baso # (Auto) Absolute Nucleated RBC Nucleated RBC % (auto) Platelet Estimate RBC Morphology PT INR APTT PTT Ratio ABG pH ABG pCO2 ABG pO2 ABG HCO3 ABG O2 Saturation ABG Base Excess Archie Test VBG pH Barometric Pressure Oxygen Given Sodium 128 L Potassium 4.0 D Chloride 88 L Carbon Dioxide 6 L* Anion Gap 34.0 H BUN 55 H Creatinine 1.36 H D Est Cr Clr Drug Dosing 42.6 Est GFR ( Amer) 51.0 Est GFR (Non-Af Amer) 44.0 BUN/Creatinine Ratio 40.2 H Glucose 750 H* POC Glucose > 600 H* POC Glucose (other) Estimat Average Glucose Hemoglobin A1c Lactate 1.5 Calcium 7.7 L Phosphorus 5.4 H Magnesium 2.4 Total Bilirubin Direct Bilirubin AST ALT Alkaline Phosphatase Ammonia Total Creatine Kinase Troponin I Total Protein Albumin Globulin Albumin/Globulin Ratio Beta-Hydroxybutyric Acd 161.88 H TSH Urine Color Urine Appearance Urine pH Ur Specific [place] Urine Protein Urine Glucose (UA) Urine Ketones Urine Blood Urine Nitrite Urine Bilirubin Urine Urobilinogen Ur Leukocyte Esterase Urine RBC Urine WBC Ur Epithelial Cells Urine Bacteria Hyaline Casts Nasal Screen MRSA (PCR) Gastric Fluid pH Gastric Occult Blood Salicylates Urine Opiates Screen Ur Methadone, Qual Acetaminophen Urine Barbiturates Ur Phencyclidine (PCP) U Amphetamin/Meth Scrn MDMA (Ecstasy) Screen U Benzodiazepines Scrn Ur Cocaine Metabolite U Marijuana (THC) Screen Ethyl Alcohol mg/dL Influenza Type A (PCR) Influenza Type B (PCR) Blood Type Antibody Screen Crossmatch 12/27/19 12/27/19 12/27/19 18:13 18:13 18:13 WBC RBC Hgb Hct MCV MCH MCHC RDW Std Deviation RDW Coeff of Ethel Plt Count MPV Immature Gran % (Auto) Neut % (Auto) Lymph % (Auto) Garvin % (Auto) Eos % (Auto) Baso % (Auto) Immature Gran # (Auto) Neut # (Auto) Lymph # (Auto) Garvin # (Auto) Eos # (Auto) Baso # (Auto) Absolute Nucleated RBC Nucleated RBC % (auto) Platelet Estimate RBC Morphology PT INR APTT PTT Ratio ABG pH ABG pCO2 ABG pO2 ABG HCO3 ABG O2 Saturation ABG Base Excess Archie Test VBG pH 7.05 L Barometric Pressure Oxygen Given Sodium Potassium Chloride Carbon Dioxide Anion Gap BUN Creatinine Est Cr Clr Drug Dosing Est GFR ( Amer) Est GFR (Non-Af Amer) BUN/Creatinine Ratio Glucose POC Glucose > 600 H* POC Glucose (other) Estimat Average Glucose Hemoglobin A1c Lactate Calcium Phosphorus 3.7 D Magnesium 2.3 Total Bilirubin Direct Bilirubin AST ALT Alkaline Phosphatase Ammonia Total Creatine Kinase Troponin I Total Protein Albumin Globulin Albumin/Globulin Ratio Beta-Hydroxybutyric Acd TSH Urine Color Urine Appearance Urine pH Ur Specific Th[place] Urine Protein Urine Glucose (UA) Urine Ketones Urine Blood Urine Nitrite Urine Bilirubin Urine Urobilinogen Ur Leukocyte Esterase Urine RBC Urine WBC Ur Epithelial Cells Urine Bacteria Hyaline Casts Nasal Screen MRSA (PCR) Gastric Fluid pH Gastric Occult Blood Salicylates Urine Opiates Screen Ur Methadone, Qual Acetaminophen Urine Barbiturates Ur Phencyclidine (PCP) U Amphetamin/Meth Scrn MDMA (Ecstasy) Screen U Benzodiazepines Scrn Ur Cocaine Metabolite U Marijuana (THC) Screen Ethyl Alcohol mg/dL Influenza Type A (PCR) Influenza Type B (PCR) Blood Type Antibody Screen Crossmatch 12/27/19 12/27/19 12/27/19 18:13 19:15 20:20 WBC RBC Hgb Hct MCV MCH MCHC RDW Std Deviation RDW Coeff of Ethel Plt Count MPV Immature Gran % (Auto) Neut % (Auto) Lymph % (Auto) Garvin % (Auto) Eos % (Auto) Baso % (Auto) Immature Gran # (Auto) Neut # (Auto) Lymph # (Auto) Garvin # (Auto) Eos # (Auto) Baso # (Auto) Absolute Nucleated RBC Nucleated RBC % (auto) Platelet Estimate RBC Morphology PT INR APTT PTT Ratio ABG pH ABG pCO2 ABG pO2 ABG HCO3 ABG O2 Saturation ABG Base Excess Archie Test VBG pH Barometric Pressure Oxygen Given Sodium 136 D Potassium Chloride 99 Carbon Dioxide 7 L* Anion Gap 30.0 H BUN 59 H Creatinine 1.31 H Est Cr Clr Drug Dosing 44.2 Est GFR ( Amer) 53.4 Est GFR (Non-Af Amer) 46.0 BUN/Creatinine Ratio 45.2 H Glucose 673 H* 568 H* POC Glucose POC Glucose (other) Estimat Average Glucose Hemoglobin A1c Lactate Calcium 7.8 L Phosphorus 1.5 L* D Magnesium Total Bilirubin Direct Bilirubin AST ALT Alkaline Phosphatase Ammonia Total Creatine Kinase Troponin I Total Protein Albumin Globulin Albumin/Globulin Ratio Beta-Hydroxybutyric Acd 150.09 H TSH Urine Color Urine Appearance Urine pH Ur Specific [place] Urine Protein Urine Glucose (UA) Urine Ketones Urine Blood Urine Nitrite Urine Bilirubin Urine Urobilinogen Ur Leukocyte Esterase Urine RBC Urine WBC Ur Epithelial Cells Urine Bacteria Hyaline Casts Nasal Screen MRSA (PCR) Negative Gastric Fluid pH Gastric Occult Blood Salicylates Urine Opiates Screen Ur Methadone, Qual Acetaminophen Urine Barbiturates Ur Phencyclidine (PCP) U Amphetamin/Meth Scrn MDMA (Ecstasy) Screen U Benzodiazepines Scrn Ur Cocaine Metabolite U Marijuana (THC) Screen Ethyl Alcohol mg/dL Influenza Type A (PCR) Influenza Type B (PCR) Blood Type Antibody Screen Crossmatch 12/27/19 12/27/19 12/27/19 21:21 21:21 21:44 WBC RBC Hgb Hct MCV MCH MCHC RDW Std Deviation RDW Coeff of Ethel Plt Count MPV Immature Gran % (Auto) Neut % (Auto) Lymph % (Auto) Garvin % (Auto) Eos % (Auto) Baso % (Auto) Immature Gran # (Auto) Neut # (Auto) Lymph # (Auto) Garvin # (Auto) Eos # (Auto) Baso # (Auto) Absolute Nucleated RBC Nucleated RBC % (auto) Platelet Estimate RBC Morphology PT INR APTT PTT Ratio ABG pH ABG pCO2 ABG pO2 ABG HCO3 ABG O2 Saturation ABG Base Excess Archie Test VBG pH 7.29 L Barometric Pressure Oxygen Given Sodium Potassium 3.6 Chloride Carbon Dioxide Anion Gap BUN Creatinine Est Cr Clr Drug Dosing Est GFR ( Amer) Est GFR (Non-Af Amer) BUN/Creatinine Ratio Glucose 495 H* POC Glucose 471 H* POC Glucose (other) Estimat Average Glucose Hemoglobin A1c Lactate Calcium Phosphorus 1.0 L* Magnesium 2.3 Total Bilirubin Direct Bilirubin AST ALT Alkaline Phosphatase Ammonia Total Creatine Kinase Troponin I Total Protein Albumin Globulin Albumin/Globulin Ratio Beta-Hydroxybutyric Acd 125.70 H TSH Urine Color Urine Appearance Urine pH Ur Specific [place] Urine Protein Urine Glucose (UA) Urine Ketones Urine Blood Urine Nitrite Urine Bilirubin Urine Urobilinogen Ur Leukocyte Esterase Urine RBC Urine WBC Ur Epithelial Cells Urine Bacteria Hyaline Casts Nasal Screen MRSA (PCR) Gastric Fluid pH Gastric Occult Blood Salicylates Urine Opiates Screen Ur Methadone, Qual Acetaminophen Urine Barbiturates Ur Phencyclidine (PCP) U Amphetamin/Meth Scrn MDMA (Ecstasy) Screen U Benzodiazepines Scrn Ur Cocaine Metabolite U Marijuana (THC) Screen Ethyl Alcohol mg/dL Influenza Type A (PCR) Influenza Type B (PCR) Blood Type Antibody Screen Crossmatch 12/27/19 12/27/19 12/28/19 22:49 23:45 00:23 WBC RBC Hgb Hct MCV MCH MCHC RDW Std Deviation RDW Coeff of Ethel Plt Count MPV Immature Gran % (Auto) Neut % (Auto) Lymph % (Auto) Garvin % (Auto) Eos % (Auto) Baso % (Auto) Immature Gran # (Auto) Neut # (Auto) Lymph # (Auto) Garvin # (Auto) Eos # (Auto) Baso # (Auto) Absolute Nucleated RBC Nucleated RBC % (auto) Platelet Estimate RBC Morphology PT INR APTT PTT Ratio ABG pH ABG pCO2 ABG pO2 ABG HCO3 ABG O2 Saturation ABG Base Excess Archie Test VBG pH Barometric Pressure Oxygen Given Sodium 136 Potassium 5.6 H D Chloride 101 Carbon Dioxide 11 L Anion Gap 24.0 H BUN 61 H Creatinine 1.49 H Est Cr Clr Drug Dosing 38.8 Est GFR ( Amer) 45.7 Est GFR (Non-Af Amer) 39.4 BUN/Creatinine Ratio 40.6 H Glucose 370 H* POC Glucose 465 H* 439 H* POC Glucose (other) Estimat Average Glucose Hemoglobin A1c Lactate Calcium 7.9 L Phosphorus 0.6 L* Magnesium 2.1 Total Bilirubin Direct Bilirubin AST ALT Alkaline Phosphatase Ammonia Total Creatine Kinase Troponin I Total Protein Albumin Globulin Albumin/Globulin Ratio Beta-Hydroxybutyric Acd TSH Urine Color Urine Appearance Urine pH Ur Specific [place] Urine Protein Urine Glucose (UA) Urine Ketones Urine Blood Urine Nitrite Urine Bilirubin Urine Urobilinogen Ur Leukocyte Esterase Urine RBC Urine WBC Ur Epithelial Cells Urine Bacteria Hyaline Casts Nasal Screen MRSA (PCR) Gastric Fluid pH Gastric Occult Blood Salicylates Urine Opiates Screen Ur Methadone, Qual Acetaminophen Urine Barbiturates Ur Phencyclidine (PCP) U Amphetamin/Meth Scrn MDMA (Ecstasy) Screen U Benzodiazepines Scrn Ur Cocaine Metabolite U Marijuana (THC) Screen Ethyl Alcohol mg/dL Influenza Type A (PCR) Influenza Type B (PCR) Blood Type Antibody Screen Crossmatch 12/28/19 12/28/19 12/28/19 00:23 00:50 00:50 WBC RBC Hgb 6.5 L* D Hct 18.8 L* MCV MCH MCHC RDW Std Deviation RDW Coeff of Ethel Plt Count MPV Immature Gran % (Auto) Neut % (Auto) Lymph % (Auto) Garvin % (Auto) Eos % (Auto) Baso % (Auto) Immature Gran # (Auto) Neut # (Auto) Lymph # (Auto) Garvin # (Auto) Eos # (Auto) Baso # (Auto) Absolute Nucleated RBC Nucleated RBC % (auto) Platelet Estimate RBC Morphology PT INR APTT PTT Ratio ABG pH ABG pCO2 ABG pO2 ABG HCO3 ABG O2 Saturation ABG Base Excess Archie Test VBG pH 7.29 L Barometric Pressure Oxygen Given Sodium Potassium Chloride Carbon Dioxide Anion Gap BUN Creatinine Est Cr Clr Drug Dosing Est GFR ( Amer) Est GFR (Non-Af Amer) BUN/Creatinine Ratio Glucose POC Glucose POC Glucose (other) Estimat Average Glucose Hemoglobin A1c Lactate Calcium Phosphorus Magnesium Total Bilirubin Direct Bilirubin AST ALT Alkaline Phosphatase Ammonia Total Creatine Kinase Troponin I Total Protein Albumin Globulin Albumin/Globulin Ratio Beta-Hydroxybutyric Acd TSH Urine Color Urine Appearance Urine pH Ur Specific Thaxton Urine Protein Urine Glucose (UA) Urine Ketones Urine Blood Urine Nitrite Urine Bilirubin Urine Urobilinogen Ur Leukocyte Esterase Urine RBC Urine WBC Ur Epithelial Cells Urine Bacteria Hyaline Casts Nasal Screen MRSA (PCR) Gastric Fluid pH Gastric Occult Blood Salicylates Urine Opiates Screen Ur Methadone, Qual Acetaminophen Urine Barbiturates Ur Phencyclidine (PCP) U Amphetamin/Meth Scrn MDMA (Ecstasy) Screen U Benzodiazepines Scrn Ur Cocaine Metabolite U Marijuana (THC) Screen Ethyl Alcohol mg/dL Influenza Type A (PCR) Influenza Type B (PCR) Blood Type B Negative Antibody Screen NEGATIVE Crossmatch See Detail 12/28/19 12/28/19 12/28/19 00:50 00:52 02:17 WBC RBC Hgb Hct MCV MCH MCHC RDW Std Deviation RDW Coeff of Ethel Plt Count MPV Immature Gran % (Auto) Neut % (Auto) Lymph % (Auto) Garvin % (Auto) Eos % (Auto) Baso % (Auto) Immature Gran # (Auto) Neut # (Auto) Lymph # (Auto) Garvin # (Auto) Eos # (Auto) Baso # (Auto) Absolute Nucleated RBC Nucleated RBC % (auto) Platelet Estimate RBC Morphology PT INR APTT PTT Ratio ABG pH ABG pCO2 ABG pO2 ABG HCO3 ABG O2 Saturation ABG Base Excess Archie Test VBG pH Barometric Pressure Oxygen Given Sodium Potassium Chloride Carbon Dioxide Anion Gap BUN Creatinine Est Cr Clr Drug Dosing Est GFR ( Amer) Est GFR (Non-Af Amer) BUN/Creatinine Ratio Glucose POC Glucose 396 H* POC Glucose (other) 309 H Estimat Average Glucose Hemoglobin A1c Lactate Calcium Phosphorus Magnesium Total Bilirubin Direct Bilirubin AST ALT Alkaline Phosphatase Ammonia Total Creatine Kinase Troponin I Total Protein Albumin Globulin Albumin/Globulin Ratio Beta-Hydroxybutyric Acd TSH Urine Color Urine Appearance Urine pH Ur Specific Thaxton Urine Protein Urine Glucose (UA) Urine Ketones Urine Blood Urine Nitrite Urine Bilirubin Urine Urobilinogen Ur Leukocyte Esterase Urine RBC Urine WBC Ur Epithelial Cells Urine Bacteria Hyaline Casts Nasal Screen MRSA (PCR) Gastric Fluid pH 3 Gastric Occult Blood Positive A Salicylates Urine Opiates Screen Ur Methadone, Qual Acetaminophen Urine Barbiturates Ur Phencyclidine (PCP) U Amphetamin/Meth Scrn MDMA (Ecstasy) Screen U Benzodiazepines Scrn Ur Cocaine Metabolite U Marijuana (THC) Screen Ethyl Alcohol mg/dL Influenza Type A (PCR) Influenza Type B (PCR) Blood Type Antibody Screen Crossmatch 03/24/20 03/24/20 03/24/20 04:18 04:18 04:18 WBC 5.92 RBC 2.60 L Hgb 7.8 L Hct 21.8 L MCV 83.8 D MCH 30.0 MCHC 35.8 RDW Std Deviation 44.2 RDW Coeff of Ethel 14.4 Plt Count 82 L D MPV 9.3 Immature Gran % (Auto) 0.2 Neut % (Auto) 80.2 Lymph % (Auto) 12.5 Garvin % (Auto) 7.1 Eos % (Auto) 0.0 Baso % (Auto) 0.0 Immature Gran # (Auto) 0.01 Neut # (Auto) 4.75 Lymph # (Auto) 0.74 L Garvin # (Auto) 0.42 Eos # (Auto) 0.00 Baso # (Auto) 0.00 Absolute Nucleated RBC Nucleated RBC % (auto) Platelet Estimate Decreased L RBC Morphology Unremarkable PT INR APTT PTT Ratio ABG pH ABG pCO2 ABG pO2 ABG HCO3 ABG O2 Saturation ABG Base Excess Archie Test VBG pH Barometric Pressure Oxygen Given Sodium 142 Potassium 4.3 D Chloride 109 H Carbon Dioxide 20 L Anion Gap 13.0 H BUN 63 H Creatinine 1.28 H Est Cr Clr Drug Dosing 45.2 Est GFR ( Amer) 54.9 Est GFR (Non-Af Amer) 47.4 BUN/Creatinine Ratio 49.2 H Glucose 335 H* POC Glucose POC Glucose (other) Estimat Average Glucose Hemoglobin A1c Lactate Calcium 8.1 L Phosphorus 0.7 L* Magnesium 1.7 L Total Bilirubin 1.3 H Direct Bilirubin 0.4 H AST 51 H ALT 33 Alkaline Phosphatase 46 Ammonia Total Creatine Kinase Troponin I Total Protein 3.8 L D Albumin 2.1 L Globulin Albumin/Globulin Ratio Beta-Hydroxybutyric Acd 53.24 H TSH Urine Color Urine Appearance Urine pH Ur Specific Thaxton Urine Protein Urine Glucose (UA) Urine Ketones Urine Blood Urine Nitrite Urine Bilirubin Urine Urobilinogen Ur Leukocyte Esterase Urine RBC Urine WBC Ur Epithelial Cells Urine Bacteria Hyaline Casts Nasal Screen MRSA (PCR) Gastric Fluid pH Gastric Occult Blood Salicylates 3.0 Urine Opiates Screen Ur Methadone, Qual Acetaminophen 7 L Urine Barbiturates Ur Phencyclidine (PCP) U Amphetamin/Meth Scrn MDMA (Ecstasy) Screen U Benzodiazepines Scrn Ur Cocaine Metabolite U Marijuana (THC) Screen Ethyl Alcohol mg/dL Influenza Type A (PCR) Influenza Type B (PCR) Blood Type Antibody Screen Crossmatch 12/28/19 12/28/19 12/28/19 04:18 04:18 04:18 WBC RBC Hgb Hct MCV MCH MCHC RDW Std Deviation RDW Coeff of Ethel Plt Count MPV Immature Gran % (Auto) Neut % (Auto) Lymph % (Auto) Garvin % (Auto) Eos % (Auto) Baso % (Auto) Immature Gran # (Auto) Neut # (Auto) Lymph # (Auto) Garvin # (Auto) Eos # (Auto) Baso # (Auto) Absolute Nucleated RBC Nucleated RBC % (auto) Platelet Estimate RBC Morphology PT 14.0 H INR 1.3 H APTT PTT Ratio ABG pH ABG pCO2 ABG pO2 ABG HCO3 ABG O2 Saturation ABG Base Excess Archie Test VBG pH Barometric Pressure Oxygen Given Sodium Potassium Chloride Carbon Dioxide Anion Gap BUN Creatinine Est Cr Clr Drug Dosing Est GFR ( Amer) Est GFR (Non-Af Amer) BUN/Creatinine Ratio Glucose POC Glucose POC Glucose (other) Estimat Average Glucose Hemoglobin A1c Lactate 1.9 Calcium Phosphorus Magnesium Total Bilirubin Direct Bilirubin AST ALT Alkaline Phosphatase Ammonia 101.0 H Total Creatine Kinase Troponin I Total Protein Albumin Globulin Albumin/Globulin Ratio Beta-Hydroxybutyric Acd TSH Urine Color Urine Appearance Urine pH Ur Specific Thaxton Urine Protein Urine Glucose (UA) Urine Ketones Urine Blood Urine Nitrite Urine Bilirubin Urine Urobilinogen Ur Leukocyte Esterase Urine RBC Urine WBC Ur Epithelial Cells Urine Bacteria Hyaline Casts Nasal Screen MRSA (PCR) Gastric Fluid pH Gastric Occult Blood Salicylates Urine Opiates Screen Ur Methadone, Qual Acetaminophen Urine Barbiturates Ur Phencyclidine (PCP) U Amphetamin/Meth Scrn MDMA (Ecstasy) Screen U Benzodiazepines Scrn Ur Cocaine Metabolite U Marijuana (THC) Screen Ethyl Alcohol mg/dL Influenza Type A (PCR) Influenza Type B (PCR) Blood Type Antibody Screen Crossmatch 12/28/19 04:18 WBC RBC Hgb Hct MCV MCH MCHC RDW Std Deviation RDW Coeff of Ethel Plt Count MPV Immature Gran % (Auto) Neut % (Auto) Lymph % (Auto) Garvin % (Auto) Eos % (Auto) Baso % (Auto) Immature Gran # (Auto) Neut # (Auto) Lymph # (Auto) Garvin # (Auto) Eos # (Auto) Baso # (Auto) Absolute Nucleated RBC Nucleated RBC % (auto) Platelet Estimate RBC Morphology PT INR APTT PTT Ratio ABG pH 7.38 ABG pCO2 32 L ABG pO2 161 H ABG HCO3 19 ABG O2 Saturation 99.3 H ABG Base Excess -5.8 Archie Test POS VBG pH Barometric Pressure 734.6 Oxygen Given 40% Sodium Potassium Chloride Carbon Dioxide Anion Gap BUN Creatinine Est Cr Clr Drug Dosing Est GFR ( Amer) Est GFR (Non-Af Amer) BUN/Creatinine Ratio Glucose POC Glucose POC Glucose (other) Estimat Average Glucose Hemoglobin A1c Lactate Calcium Phosphorus Magnesium Total Bilirubin Direct Bilirubin AST ALT Alkaline Phosphatase Ammonia Total Creatine Kinase Troponin I Total Protein Albumin Globulin Albumin/Globulin Ratio Beta-Hydroxybutyric Acd TSH Urine Color Urine Appearance Urine pH Ur Specific Thaxton Urine Protein Urine Glucose (UA) Urine Ketones Urine Blood Urine Nitrite Urine Bilirubin Urine Urobilinogen Ur Leukocyte Esterase Urine RBC Urine WBC Ur Epithelial Cells Urine Bacteria Hyaline Casts Nasal Screen MRSA (PCR) Gastric Fluid pH Gastric Occult Blood Salicylates Urine Opiates Screen Ur Methadone, Qual Acetaminophen Urine Barbiturates Ur Phencyclidine (PCP) U Amphetamin/Meth Scrn MDMA (Ecstasy) Screen U Benzodiazepines Scrn Ur Cocaine Metabolite U Marijuana (THC) Screen Ethyl Alcohol mg/dL Influenza Type A (PCR) Influenza Type B (PCR) Blood Type Antibody Screen Crossmatch
[2019-12-28] MEDS ORDERED: METOCLOPRAMIDE HCL INJ 5 MG/ML 2 ML VIAL IV STA (06:47)
[2019-12-28] MEDS ORDERED: METOCLOPRAMIDE HCL INJ 5 MG/ML 2 ML VIAL ONE (06:48)
--- NOTE | 2019-12-28 07:02 | XRay Report ---
XR chest 1V portable CLINICAL HISTORY: 54 years-old Female presenting with s/p tube/RIGHT IJ. TECHNIQUE: Portable upright AP view of the chest was obtained. COMPARISON: 12/27/2019. FINDINGS: Endotracheal tube now in place terminating over 5 cm from the anastacia. Interval placement of a right i nternal jugular central venous catheter, which terminates at the lower SVC. Numerous overlying snack steward al leads to grating image quality. Cardiomediastinal silhouette normal. Significant interval increase in peripheral and basilar predomin ant left lung opacities. Suture margin is noted at the right lung base and right perihilar region. No pleural effusion or pneumothorax is appreciable. Old posterior left rib fractures. Upper abdomen no rmal. IMPRESSION: 1. Appropriately positioned lines and tubes. 2. Significantly increased left basilar infiltrates concerning for pneumonia. This should be followe d. 3. Postsurgical changes of the right lung base. ACT 112: Negative or not required by law. Electronically signed by: Riki Escobedo M.D. 12/28/2019 7:00 AM
--- NOTE | 2019-12-28 07:05 | Ultrasound Report ---
US duplex portal hepatic veins CLINICAL HISTORY: GI bleed. COMPARISON STUDY: None. FINDINGS: The hepatic and portal veins are patent and demonstrate normal direction of flow. The splen ic vein is not visualized due to overlying bowel gas. IMPRESSION: Patent hepatic and portal veins. ACT 112: Negative or not required by law. Electronically signed by: Delano Murry M.D. 12/28/2019 7:04 AM
--- NOTE | 2019-12-28 07:27 | GI REPORT ---
Patient Name: Gem Chiu Procedure Date: 12/28/2019 5:49 AM Date of : 1965 Admit Type: Inpatient Age: 54 Gender: Female Attending MD: Luis Dodson MD Procedure: Upper GI endoscopy Providers: Luis Dodson MD Referring MD: Alfonso Valencia Indications: Hematemesis, Suspected upper gastrointestinal bleeding Medicines: Propofol per Anesthesia Complications: No immediate complications. Estimated Blood Loss: Estimated blood loss: none. Procedure: Pre-Anesthesia Assessment: - Prior to the procedure, a History and Physical was performed, and patient medications, allergies and sensitivities were reviewed. The patient's tolerance of previous anesthesia was reviewed. - The patient is unable to give consent secondary to the patient's altered mental status. The alternatives, risks and benefits of the procedure were discussed at length with the patient's mother. The patient's proxy verbalized understanding of the risks as well as the alternatives and wished to proceed with the procedure. - Patient identification and proposed procedure were verified prior to the procedure by the physician and the nurse. The procedure was verified in the procedure room. - Pre-procedure physical examination revealed no contraindications to sedation. - Airway Examination: orotracheal intubation. After obtaining informed consent, the endoscope was passed under direct vision. Throughout the procedure, the patient's blood pressure, pulse, and oxygen saturations were monitored continuously. The Endoscope was introduced through the mouth, and advanced to the second part of duodenum. The upper GI endoscopy was accomplished without difficulty. The patient tolerated the procedure well. Findings: Diffuse severe mucosal and submucosal injury from 21 cm to 36 cm from the incisors characterized by black discoloration and sloughing were found in the middle third and lower third of the esophagus. 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 A small hiatal hernia was present. GEJ at 37 cm from the incisors. One superficial esophageal ulcer with active rapid oozing blood was found at the gastroesophageal junction. Area was successfully injected with 3 mL of a 1:10,000 solution of epinephrine for hemostasis. Coagulation for hemostasis using bipolar probe was successful. Hematin (altered blood/zronur-iaojag-bfyp material) and multiple large blood clots found in the gastric fundus. The duodenal bulb and second portion of the duodenum were normal. Impression: - 14 cm segment of black esophagus with superficial (mucosal/submucosal layer) necrosis. This is suggestive of caustic esophagitis or alcohol related injury. - Small hiatal hernia. - Actively bleeding superficial ulcer at the GEJ. Injected with Epi and treated with bipolar cautery with successful control of bleeding.. - Hematin/ Red blood and multiple large blood clots in the gastric fundus. - Normal duodenal bulb and second portion of the duodenum. Recommendation: - ICU for ongoing care. - No NG/OG tube placement for 3-4 days due to risk of perforation. - IV ABx. - IV PPI drip for 3 days then PO BID if patient is extubated otherwise IV pushes. - Close monitoring for sign of progressive injury/ spontaneous perforation. - Repeat EGD in 2-3 months to check healing and evaluate for stricture formation. - EGD every 2-3 years after 10 years from now for cancer surveillance if patient confirms caustic ingestion. Luis Dodson MD 12/28/2019 7:27:05 AM This report has been signed electronically. Note Initiated On: 12/28/2019 5:49 AM Number of Addenda: 0 I attest to the content of the Intraoperative Record and orders documented therein, exceptions below {[id number]}
[2019-12-28] MEDS: NICOTINE 21 MG/24 HR TDSY TD SCH (08:29)
[2019-12-28] MEDS: INSULIN ASPART 100 UNITS/ML 3 ML PEN SC SCH ×4 (08:29→20:15)
[2019-12-28] MEDS: THIAMINE HCL 200 MG in SODIUM CHLORIDE 0.9% 50 ML IV SCH ×2 (08:30→20:14)
--- NOTE | 2019-12-28 08:57 | Critical Care Progress Note ---
Date of Service December 28, 2019 Assessment & Plan (1) Metabolic acidosis: Impression: 54-year-old female with history of diabetes and alcohol abuse admitted with diabetic ketoacidosis, acute renal failure, and severe hypokalemia. 24-hour events: Patient mated to the ICU. She developed hypotension and acute blood loss anemia due to an upper GI bleed during the night. She was intubated. Central and arterial lines were placed. Endoscopy was performed which revealed a bleeding vessel at the GE junction. Findings were also potentially consistent with caustic ingestion with grade 3B esophagitis and distal sloughing. She is continued on antibiotics. She required multiple pressors although these are being significantly weaned. She is currently receiving FFP. Recommendations: 1. Severe DKA: Continue insulin infusion for now. Anion gap is closing. Given the severity of her illness we will continue insulin for now. Suspect etiology was noncompliance. Will transition to long-acting and sliding scale insulin once stable. 2. Profound hypokalemia: Now repleted. Continue to follow 3. Metabolic acidosis: Lactate resolving. 4. Acute kidney injury: Consistent with prerenal state as it is correcting with volume resuscitation 5. GI bleed: Findings on endoscopy were concerning for potential caustic ingestion. We are unable to obtain any pertinent history from the patient. No nasogastric or orogastric tube will be placed due to risk of perforation. Will require repeat endoscopy in 2 to 4 weeks. Continue serial hemoglobin and hematocrit. Will reassess thrombocytopenia. Check fibrinogen as well as repeat coagulation panel. Target hemoglobin between 8 and 10 given acute bleeding, platelets greater than 75,000, and fibrinogen greater than 200 with INR less than 1.4. Will replace calcium. Continue broad-spectrum antibiotics in the form of Zosyn given risk of mediastinitis. We will hold off on antifungal agents currently. If the patient should deteriorate, consideration for surgical evaluation of the mediastinum with potential esophagectomy may be appropriate. If she stabilizes, will consider getting a CT of the chest without contrast to evaluate for potential extension into the mediastinal space 6. History of alcohol abuse: Continue thiamine and folate. Will need to observe for signs and symptoms of alcohol withdrawal. 7. Acute hypoxemic respiratory failure: Secondary to acute blood loss anemia. Continue mechanical ventilation for now. Blood gas is reassuring. 8. Hypovolemic shock due to acute blood loss: We are significantly weaning vasopressors currently. Continue aggressive volume resuscitation currently. Wean mateusz-to off. We will then focus on discontinuing vasopressin and lastly Levophed. Check cortisol. 9. Questionable aspiration pneumonia: Should be covered by Zosyn for now. Follow radiograph Patient is critically ill at this point time with significant possibility of clinical deterioration and loss of life or limb. No family is immediately ranjit ilable. Additional critical care time, 50 minutes (2) Acute hyperglycemia: (3) Altered mental status: (4) Renal insufficiency: Review of Systems Review of Systems: Unobtainable due to endotracheal tube Physical Exam Constitutional: + thin and + mechanically ventilated Intubated and sedated Neck: trachea midline, no thyromegaly Respiratory: normal respiratory effort, lungs clear to auscultation Cardiovascular: RRR, no murmur, no edema Gastrointestinal (Abdomen): normal bowel sounds, soft, nontender, no hepatosplenomegaly Musculoskeletal: Left below the knee amputation Skin: no rashes, warm and dry Lymphatic: no cervical lymphadenopathy Results & Data ([facility]) Vital Signs (Past 12 Hours) Vital Signs Temp Pulse Resp BP Pulse Ox 12/28/19 08:15 37.8 C H 107 H 20 148/68 H 12/28/19 07:47 37.8 C H 110 H 20 134/73 12/28/19 07:30 37.8 C H 113 H 20 131/77 99 12/28/19 07:16 37.8 C H 110 H 26 H 101/72 99 12/28/19 07:14 37.8 C H 120 H 20 101/70 100 12/28/19 07:03 122 H 27 H 98 12/28/19 06:09 37.7 C H 117 H 20 116/75 100 12/28/19 05:39 37.7 C H 121 H 28 H 71/46 L 100 12/28/19 05:34 134 H 80/61 L 100 12/28/19 05:24 37.7 C H 135 H 24 77/57 L 100 12/28/19 05:07 37.7 C H 126 H 28 H 81/53 L 100 12/28/19 05:00 128 H 23 100 12/28/19 04:33 130 H 89/63 L 100 12/28/19 04:32 133 H 72/54 L 100 12/28/19 04:30 126 H 100 12/28/19 04:16 124 H 95/64 L 100 12/28/19 04:05 120 H 92/63 L 100 12/28/19 04:01 118 H 99/62 L 100 12/28/19 04:00 37.7 C H 133 H 28 H 78/53 L 100 12/28/19 03:48 128 H 100 12/28/19 03:47 127 H 84/66 L 100 12/28/19 03:45 130 H 100 12/28/19 03:30 114 H 100 12/28/19 03:15 109 H 100 12/28/19 03:01 121 H 100 12/28/19 03:00 121 H 113/68 100 12/28/19 02:46 125 H 133/75 12/28/19 02:45 126 H 12/28/19 02:44 128 H 147/113 H 12/28/19 02:42 129 H 126/75 12/28/19 02:40 122 H 128/74 12/28/19 02:38 123 H 134/74 12/28/19 02:36 127 H 152/80 H 12/28/19 02:34 121 H 152/86 H 100 12/28/19 02:33 120 H 20 152/86 H 100 12/28/19 02:32 120 H 150/79 H 100 12/28/19 02:31 119 H 100 12/28/19 02:30 116 H 142/80 H 100 12/28/19 02:28 113 H 141/76 H 100 12/28/19 02:26 111 H 138/75 100 12/28/19 02:24 110 H 133/74 100 12/28/19 02:22 110 H 147/77 H 100 12/28/19 02:20 110 H 131/81 100 12/28/19 02:18 111 H 149/82 H 100 12/28/19 02:16 111 H 152/85 H 12/28/19 02:15 111 H 100 12/28/19 02:14 108 H 160/82 H 100 12/28/19 02:12 111 H 145/85 H 100 12/28/19 02:10 112 H 27 H 96/77 L 100 12/28/19 02:08 113 H 25 H 117/73 100 12/28/19 02:06 117 H 23 122/72 12/28/19 02:03 120 H 24 126/73 100 12/28/19 02:02 110 H 29 H 99/69 L 12/28/19 02:01 109 H 21 12/28/19 02:00 109 H 28 H 100/58 L 12/28/19 01:58 110 H 23 98/50 L 12/28/19 01:57 111 H 33 H 77/59 L 97 12/28/19 01:55 112 H 22 77/59 L 12/28/19 01:53 113 H 22 87/52 L 100 12/28/19 01:48 132 H 26 H 72/46 L 100 12/28/19 01:46 122 H 28 H 100 12/28/19 01:45 125 H 30 H 65/47 L 100 12/28/19 01:30 125 H 44 H 88 L 12/28/19 01:15 125 H 40 H 51 L 12/28/19 01:08 127 H 37 H 77/44 L 92 12/28/19 01:00 128 H 41 H 100 12/28/19 00:53 130 H 36 H 84/57 L 95 12/28/19 00:36 125 H 27 H 77/49 L 99 12/28/19 00:28 126 H 22 80/50 L 100 12/28/19 00:25 125 H 22 71/49 L 100 12/28/19 00:22 130 H 15 93/69 L 100 12/28/19 00:21 127 H 26 H 77/54 L 100 12/27/19 23:24 122 H 29 H 83/57 L 100 12/27/19 22:52 118 H 29 H 87/53 L 99 12/27/19 21:29 118 H 28 H 87/56 L 100 Laboratory Results 12/28/19 04:18 12/28/19 04:18 Beta hydroxybutyrate elevated at 50 Lactate 1.9 Calcium 8.1 Albumin 2.1 Diagnostic Findings Chest x-ray from today was independently reviewed. Endotracheal tube is slightly high. Central line appears to be in good position. No pneumothorax. There is progressive airspace opacity at the left lung base without pleural ef fusion. Coding Level of Care Code Critical Care 1st 30-74 mins Diagnoses Metabolic acidosis E87.2 Acute hyperglycemia R73.9 Altered mental status R41.82 Altered mental status type: unspecified Renal insufficiency N28.9 Time Spent (min) 50 Comment 50 minutes critical care time evaluating life-threatening illness (1) Altered mental status Altered mental status type: unspecified Qualified Code(s): R41.82 - Altered mental status, unspecified
[2019-12-28 09:02] LABS: Hematocrit (blood only) 21.7 % (37-47); Hemoglobin 7.9 g/dL (12.0-16.0); Mean Corpuscular Hemoglobin 29.5 pg (25-34); Nucleated RBC # (auto) 0.02 K/uL (0-0); Nucleated RBC % (auto) 0.3 %; RDW Coefficient of Variation 14.8 % (11.5-14.5); RDW Standard Deviation 43.4 fL (36.4-46.3); Red Blood Count 2.68 M/uL (4.2-5.4); White Blood Count 7.39 K/uL (4.8-10.8)
[2019-12-28 09:04] LABS: Mean Corpuscular Hgb Conc 36.4 g/dL (32-36); Mean Platelet Volume 9.6 fL (7.4-10.4); Platelet Count 72 K/uL (130-400)
[2019-12-28] MEDS ORDERED: NORMOSOL-R 2,000 ML IV ONE (09:20)
[2019-12-28 09:25] LABS: INR 1.2 (0.9-1.1); Prothrombin Time 12.3 Seconds (9.0-12.0)
[2019-12-28] MEDS ORDERED: D5W AND LACTATED RINGERS 1,000 ML IV SCH (09:25)
[2019-12-28 09:36] LABS: Basophilic Stippling 1+; Basophils # (auto) 0.01 K/uL (0-0.2); Basophils % (auto) 0.1 %; Hypogranular Neutrophils 1+; Immature Granulocytes # (auto) 0.04 K/uL (0.00-0.02); Immature Granulocytes % (auto) 0.5 %; Lymphocytes # (auto) 1.14 K/uL (1.2-3.4); Lymphocytes % (auto) 15.4 %; Monocytes # (auto) 0.49 K/uL (0.11-0.59); Monocytes % (auto) 6.6 %; Neutrophils # (auto) 5.71 K/uL (1.4-6.5); Neutrophils % (auto) 77.4 %
[2019-12-28] MEDS ORDERED: ICU ELECTROLYTE REPLACEMENT PROTOCOL PRN (09:38)
[2019-12-28 09:42] LABS: BUN Creatinine Ratio 43.3 (10-20); Calcium 8.3 mg/dl (8.5-10.1); Est GFR (African American) 48.8; Est GFR (Non-African American) 42.1; Magnesium 1.6 mg/dl (1.8-2.4); Potassium 3.2 mmol/L (3.5-5.1)
[2019-12-28 09:55] LABS: Phosphorus 0.6 mg/dl (2.5-4.9)
--- NOTE | 2019-12-28 10:34 | Pharmacy Report ---
Glycemic Control Consultation - Date of Service December 28, 2019 - Scope Scope: Glycemic Pharmacist consulted for glycemic control and to write orders per [facility] inpatient glycemic control protocol. - Objective Weight: 57.2 kg Accuchecks BSG (last 24hrs): 12/27/19 12/27/19 12/27/19 13:53 16:02 16:26 Glucose 830 H* 750 H* POC Glucose > 600 H* POC Glucose (other) 12/27/19 12/27/19 12/27/19 18:11 18:13 18:13 Glucose 673 H* POC Glucose > 600 H* > 600 H* POC Glucose (other) 12/27/19 12/27/19 12/27/19 20:20 21:21 21:44 Glucose 568 H* 495 H* POC Glucose 471 H* POC Glucose (other) 12/27/19 12/27/19 12/28/19 22:49 23:45 00:23 Glucose 370 H* POC Glucose 465 H* 439 H* POC Glucose (other) 12/28/19 12/28/19 12/28/19 00:50 02:17 03:40 Glucose POC Glucose 396 H* POC Glucose (other) 309 H 330 H 12/28/19 12/28/19 12/28/19 04:18 05:52 07:27 Glucose 335 H* POC Glucose POC Glucose (other) 294 H 295 H 12/28/19 12/28/19 08:12 08:53 Glucose 259 H POC Glucose POC Glucose (other) 276 H Laboratory Data (last 24hrs): 12/27/19 12/27/19 12/27/19 13:53 16:26 18:13 Potassium 2.6 L 4.0 D Carbon Dioxide 6 L* 6 L* Anion Gap 41.0 H 34.0 H Creatinine 1.73 H 1.36 H D Est Cr Clr Drug Dosing 33.5 42.6 Beta-Hydroxybutyric Acd 161.88 H 150.09 H 12/27/19 12/27/19 12/28/19 20:20 21:21 00:23 Potassium 3.6 5.6 H D Carbon Dioxide 7 L* 11 L Anion Gap 30.0 H 24.0 H Creatinine 1.31 H 1.49 H Est Cr Clr Drug Dosing 44.2 38.8 Beta-Hydroxybutyric Acd 125.70 H 12/28/19 12/28/19 04:18 08:53 Potassium 4.3 D 3.2 L D Carbon Dioxide 20 L 25 Anion Gap 13.0 H 9.0 Creatinine 1.28 H 1.41 H Est Cr Clr Drug Dosing 45.2 41.0 Beta-Hydroxybutyric Acd 53.24 H HbA1c: Hemoglobin A1c 14.9 % (4.5-5.6) H 12/27/19 13:53 - Recent Pertinent Medications Outpatient Anti-diabetic Regimen: * Jardiance 10 mg PO Daily * A1c = 14.9% on 12/27/2019 The patient is currently receiving: * IV insulin infusion: Currently running at 9.2 units/hour * Prandial insulin: Per insulin infusion calculator * Oral Agents: on hold Risk Factors for Insulin Resistance: * Infection: * Zosyn empirically * Pressors: * Levophed @ 0.2 mcg/kg/hr * Sae-synephrine & Vasopressin on hold * IVF: * LR @ 125 cc/hr * Protonix gtt in D5 * Levophed in D5 * Sae-synephrine & Vasopressin on hold * Diet: * NPO * Mechanical Ventilation: * Yes - Assessment & Plan Assessment & Plan: ASSESSMENT: * 54 yo F admitted secondary to DKA, later found to have UGIB and became hypotensive requiring intubation * Upon presentation: BSG 830 mg/dL, Serum Bicarb 6 mmol/L, Anion Gap 41, Potassium 2.6 mmol/L, Beta-hydroxybutyric acid 161.88 mg/dL, ABG 7.12/12/125/98 * Patient's laboratory values have improved following fluid resuscitation, electrolyte replacement and initiation of insulin infusion * Most recent labs show closed anion gap, serum bicarb 25 mmol/L, K 3.2 mmol/L, and BSG 246 mg/dL * Patient is in goal BSG range for DKA of 150-250 mg/dL; however, dextrose containing fluids not started as patient is receiving adequate amounts of dextrose from other gtts, will continue to monitor * Electrolyte supplementation to be guided via ICU electrolyte replacement protocol * With patient to remain NPO for several days secondary to assumed caustic agent ingestion and critical status, will continue with insulin gtt PLAN FOR INPATIENT GLYCEMIC CONTROL: * Continue IV insulin infusion per DKA protocol * ADJUSTED: Goal Range 110 - 180 mg/dl * In the critical care setting, continuous IV insulin infusion has been shown to be the best method for achieving glycemic targets. * Plan to transition patient to SQ basal-bolus insulin once she is more stable *If transition to SQ basal-bolus insulin is needed while glycemic management [facility] is not present, would recommend: * Lantus Scale BID: Please overlap Lantus with insulin drip for 6 hours * 5 units (for BSG < 110 mg/dL) * 10 units (for BSG 110-180 mg/dL) * 14 units (for BSG > 180 mg/dL) * Novolog ACHS (or Q6H if NPO) * Goal Range 120 - 150 mg/dL * Correction Factor: 1 unit for every 40 mg/dL above goal range * Carbohydrate Ratio: 1 unit for every 14 g of CHO * Please note that the plan above was derived based on current level of insulin resistance and hospital stress. These recommendations are appropriate for inpatient admission only. Plan of care upon discharge will need to be reassessed to avoid potential outpatient hypo/hyperglycemia. Thank you.
[2019-12-28] MEDS ORDERED: SODIUM PHOSPHATE 3 MMOL/1 ML 5 ML VIAL IV STA ×2 (10:40→21:37)
[2019-12-28] MEDS ORDERED: SODIUM PHOSPHATE 30 MMOL in SODIUM CHLORIDE 0.9% 500 ML IV ONE (11:00)
[2019-12-28] MEDS: POTASSIUM CHLORIDE / WTR 20 MEQ/100 ML PLCT IV SCH ×6 (11:14→23:58)
[2019-12-28] MEDS: MAGNESIUM SULFATE / D5W 1 GM/100 ML BAG IV SCH ×2 (11:32→12:38)
[2019-12-28 12:55] LABS: iSTAT Art Bld Gas pCO2 Correct 32 mmHg (35-46); iSTAT Art Bld Gas pH Corrected 7.323 (7.35-7.45); iSTAT Arterial Blood Gas HCO3 17 meg/L (19-24); iSTAT Arterial Blood Gas pCO2 32 mmHg (35-46); iSTAT Arterial Blood Gas pH 7.32 (7.35-7.45); iSTAT Arterial Blood Gas pO2 267 mmHg (80-95); iSTAT Arterial Blood Gas pO2 C 266; iSTAT Carbon Dioxide 17 mmol/L (24-31); iSTAT FiO2 60 %; iSTAT Hematocrit < 15 % (37-47); iSTAT Potassium 3.4 mmol/L (3.3-5.0); iSTAT Site Art Line; iSTAT Sodium 139 mmol/L (135-144)
[2019-12-28 12:55] LABS: iSTAT Art Bld Gas pCO2 Correct 15 mmHg (35-46); iSTAT Art Bld Gas pH Corrected 7.339 (7.35-7.45); iSTAT Arterial Blood Gas HCO3 8 meg/L (19-24); iSTAT Arterial Blood Gas pCO2 15 mmHg (35-46); iSTAT Arterial Blood Gas pH 7.34 (7.35-7.45); iSTAT Arterial Blood Gas pO2 150 mmHg (80-95); iSTAT Arterial Blood Gas pO2 C 150; iSTAT Carbon Dioxide 9 mmol/L (24-31); iSTAT Hematocrit < 15 % (37-47); iSTAT Potassium 5.2 mmol/L (3.3-5.0); iSTAT Site Art Line; iSTAT Sodium 133 mmol/L (135-144)
[2019-12-28 13:57] LABS: BUN Creatinine Ratio 42.6 (10-20); Calcium 8.5 mg/dl (8.5-10.1); Creatinine Clr Calc Pharmacy 46.7 ml/min; Est GFR (Non-African American) 49.2; Magnesium 2.5 mg/dl (1.8-2.4); Potassium 3.2 mmol/L (3.5-5.1)
[2019-12-28 14:10] LABS: Phosphorus 1.2 mg/dl (2.5-4.9)
--- NOTE | 2019-12-28 14:56 | CT Scan Report ---
CT chest wo con CT DOSE: 389.11 mGy.cm HISTORY: Pain. Dyspnea. possible caustic ingestion, eval for mediastinitis TECHNIQUE: Multiaxial CT images of the chest were performed without contrast. A dose lowering techni que was utilized adhering to the principles of ALARA. COMPARISON: 03/04/2019 FINDINGS: Mediastinum is unremarkable. No evidence for infiltrative change. Several small reactive no layton are present. I aeration of the lung parenchyma shows ground grass parenchymal infiltrates of the left upper as wel l as left lower lobe regions. This is associated with a small left pleural effusion. There is a trace amount pleural fluid right base associated with mild pleural thickening. There are m inimal peribronchial changes of the right hemithorax. Subtle peripheral groundglass infiltrative pereyra ges right upper lobe are present anteriorly. IMPRESSION: 1. Negative evaluation of the mediastinum. 2. Endotracheal tube 4.5 cm above the anastacia. 3. Diffuse groundglass infiltrates peripheral aspect of the left upper as well as left lower lobes. 4. Minimal groundglass peripheral infiltrative changes anterior aspect right upper lobe. 5. Small left pleural effusion with minimal right pleural effusion. 6. It is of note is made of potential early body wall anasarca. ACT 112: Negative or not required by law. The above report was generated using voice recognition software. It may contain grammatical, syntax or spelling errors. Electronically signed by: Jalen Farah M.D. 12/28/2019 2:54 PM
[2019-12-28] MEDS: INSULIN REGULAR 250 UNITS in SODIUM CHLORIDE 0.9% 247.5 ML IV SCH (17:16)
[2019-12-28] MEDS: FOLIC ACID 1 MG in SYRINGE 9.8 ML IV SCH (18:11)
--- NOTE | 2019-12-28 19:49 | Hospitalist Progress Note ---
Date of Service December 28, 2019 Assessment & Plan (1) Hemorrhagic shock: 2nd to severe caustic esophageal injury. s/p 3 units PRBCs. PPI drip in place. s/p FFP x 1 as well. On pressors (levophed). With fevers cannot rule out component of septic shock but less likely. Cortisol wnl. (2) Acute respiratory failure with hypoxia: 2nd to aspiration? However, patient had cough in ER yesterday during my assessment. Was patient developing respiratory illness even before last pm's events? Remains on IV zosyn. Blood cx's negative to date. s/p intubation last pm - defer vent management to ICU attending. CT chest pending. (3) Acute blood loss anemia: 2nd to upper GI bleeding from esophageal caustic injury (see EGD report). s/p 3 units PRBCs. serial CBCs. supportive care for shock. PPI drip. 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 other?)? 2nd to alcohol abuse? high risk of perforation - no enteric tube. PPI drip. appreciate GI assistance. (5) DKA (diabetic ketoacidoses): severe DKA at presentation. biochemically improved with insulin infusion and ongoing supportive care. defer management to critical care team & pharmacy glycemic team. 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 No obvious infectious cause of DKA but will check flu PCR and follow blood cultures. Zosyn empirically while awaiting blood cx's. Check u/a once colbert is placed. Will Rx her DKA in the ICU; care d/w Dr Tobias. (6) Acute kidney injury: 2nd to massive volume depletion in setting of DKA. Improved. BMP in am. (7) Hyponatremia: resolved was 2nd to massive volume depletion at presentation (8) Metabolic encephalopathy: 2nd to DKA. Cannot rule out other toxins that contributed to hospital presentation (medications, illicit drugs, etc). Cannot rule out component of hepatic encephalopathy as ammonia levels have been high. Now on sedation for vent. (9) Hypokalemia: severe at presentation but improved. (10) Metabolic acidosis: 2nd to DKA. resolved. (11) History of left below knee amputation: 2nd to foot infection several years ago (12) Depression with anxiety: HOLD po meds from home (13) Exocrine pancreatic insufficiency: once taking a diet off the vent resume pancrease (14) Liver cirrhosis, alcoholic: ammonia levels elevated once off the vent likely will need lactulose (15) Psoriasis: on biological agent chronically for such, per med list this places her even more immunocompromised above and beyond her chronic alcohol use, T1DM, etc. (16) Alcohol dependence: per mother no alcohol in 1-2 months? on sedation for vent which will treat any underlying withdrawal, if present. thiamine 200mg IV BID. folic acid daily. (17) Tobacco dependence: nicoderm patch (18) DVT prophylaxis: chemical means contraindicated due to GI bleed SCD on right leg appreciate critical care assistance Admission and Anticipated Discharge Date Admission Date: December 27, 2019 Subjective events of overnight noted. coffee-ground emesis with possible aspiration leading to intubation/mech ventilation. s/p EGD this am - severe caustic injury to large portion of esophagus - etoh? ingestion? now with low-grade fevers, hypotension requiring pressors, need for PRBCs, etc. Review of Systems Review of Systems: Unobtainable due to endotracheal tube Physical Exam Constitutional: + thin and + frail appearing; no acute distress intubated, sedated ENMT: ETT in place Neck: right IJ CVC clean Respiratory: no respiratory distress Auscultation: + diminished lung sounds (b/l bases, otherwise CTA b/l ) Cardiovascular: Rate/Rhythm: regular rhythm and + tachycardic Heart Sounds: normal S1, normal S2 and + murmur (3/6 LLSB ) Vessels: no JVD Extremities: no edema (right leg ) Gastrointestinal (Abdomen): normal bowel sounds, soft, nontender, no hepatosplenomegaly Musculoskeletal: left BKA Skin: + pallor Results & Data ([facility]) Vital Signs (Past 12 Hours) Vital Signs Temp Pulse Pulse Resp BP BP BP 12/28/19 19:00 118 H 20 112/64 12/28/19 16:00 111 H 12/28/19 15:08 123 H 28 H 12/28/19 14:00 123 H 28 H 12/28/19 13:31 120 H 12/28/19 13:30 121 H 84/57 L 12/28/19 13:16 123 H 12/28/19 13:15 124 H 93/61 L 12/28/19 13:01 120 H 12/28/19 13:00 116 H 98/57 L 12/28/19 12:46 115 H 12/28/19 12:45 115 H 106/67 12/28/19 12:31 116 H 12/28/19 12:30 115 H 104/61 12/28/19 12:16 114 H 12/28/19 12:15 114 H 112/60 12/28/19 12:01 112 H 12/28/19 12:00 112 H 104/56 L 12/28/19 11:46 112 H 12/28/19 11:45 111 H 119/64 12/28/19 11:32 114 H 12/28/19 11:30 115 H 116/65 12/28/19 11:16 123 H 108/75 12/28/19 11:15 121 H 12/28/19 11:10 115 H 28 H 12/28/19 11:00 121 H 88/56 L 12/28/19 10:46 121 H 12/28/19 10:45 120 H 110/68 12/28/19 10:31 116 H 12/28/19 10:30 116 H 109/62 12/28/19 10:16 112 H 12/28/19 10:15 112 H 126/67 12/28/19 10:00 116 H 145/76 H 12/28/19 09:46 109 H 12/28/19 09:45 110 H 156/83 H 12/28/19 09:31 113 H 12/28/19 09:30 115 H 140/83 12/28/19 09:16 112 H 12/28/19 09:15 113 H 143/78 H 12/28/19 09:11 37.7 C H 114 H 22 149/82 H 12/28/19 09:01 110 H 12/28/19 09:00 111 H 149/82 H 12/28/19 08:46 109 H 12/28/19 08:45 111 H 154/87 H 12/28/19 08:31 110 H 12/28/19 08:30 112 H 170/90 H 12/28/19 08:15 37.8 C H 105 H 20 148/68 H 12/28/19 08:14 106 H 149/85 H 12/28/19 08:09 107 H 151/83 H 12/28/19 08:04 110 H 150/91 H 12/28/19 08:00 37.8 C H 109 H 117 H 20 126/80 133/72 12/28/19 07:59 109 H 134/79 12/28/19 07:54 110 H 138/84 12/28/19 07:49 111 H 130/83 Pulse Ox 12/28/19 19:00 95 12/28/19 16:00 12/28/19 15:08 99 12/28/19 14:00 99 12/28/19 13:31 100 12/28/19 13:30 100 12/28/19 13:16 100 12/28/19 13:15 100 12/28/19 13:01 100 12/28/19 13:00 100 12/28/19 12:46 100 12/28/19 12:45 100 12/28/19 12:31 100 12/28/19 12:30 100 12/28/19 12:16 100 12/28/19 12:15 100 12/28/19 12:01 100 12/28/19 12:00 100 12/28/19 11:46 100 12/28/19 11:45 100 12/28/19 11:32 100 12/28/19 11:30 100 12/28/19 11:16 100 12/28/19 11:15 100 12/28/19 11:10 99 12/28/19 11:00 100 12/28/19 10:46 100 12/28/19 10:45 100 12/28/19 10:31 100 12/28/19 10:30 100 12/28/19 10:16 100 12/28/19 10:15 100 12/28/19 10:00 100 12/28/19 09:46 100 12/28/19 09:45 100 12/28/19 09:31 100 12/28/19 09:30 100 12/28/19 09:16 100 12/28/19 09:15 100 12/28/19 09:11 99 12/28/19 09:01 100 12/28/19 09:00 100 12/28/19 08:46 100 12/28/19 08:45 100 12/28/19 08:31 100 12/28/19 08:30 100 12/28/19 08:15 100 12/28/19 08:14 100 12/28/19 08:09 100 12/28/19 08:04 100 12/28/19 08:00 100 12/28/19 07:59 100 12/28/19 07:54 100 12/28/19 07:49 100 Laboratory Results Laboratory Results - last 24 hr 12/27/19 12/27/19 12/27/19 13:53 18:13 19:15 WBC RBC Hgb POC Hgb Hct POC Hct MCV MCH MCHC RDW Std Deviation RDW Coeff of Ethel Plt Count MPV Immature Gran % (Auto) Neut % (Auto) Lymph % (Auto) [place] % (Auto) Eos % (Auto) Baso % (Auto) Immature Gran # (Auto) Neut # (Auto) Lymph # (Auto) [place] # (Auto) Eos # (Auto) Baso # (Auto) Absolute Nucleated RBC Nucleated RBC % (auto) Hypogranular Neuts Platelet Estimate RBC Morphology Basophilic Stippling PT INR Sample Site POC pH POC pCO2 POC pO2 POC HCO3 POC Total CO2 POC Base Excess ABG pH ABG pH (Temp Correct) ABG pCO2 ABG pCO2 (Temp Corrct ABG pO2 POC ABG pO2 at Pt Temp ABG HCO3 ABG O2 Saturation ABG Base Excess Archie Test VBG pH Barometric Pressure Oxygen Given O2 Delivery Device POC O2 Rate Minute Ventilation POC FiO2 Tidal Volume PEEP POC Sodium Sodium POC Potassium Potassium Chloride Carbon Dioxide Anion Gap BUN Creatinine Est Cr Clr Drug Dosing Est GFR ( Amer) Est GFR (Non-Af Amer) BUN/Creatinine Ratio Glucose 673 H* POC Glucose POC Glucose (other) Estimat Average Glucose 381 Hemoglobin A1c 14.9 H Lactate Calcium Phosphorus Magnesium Total Bilirubin Direct Bilirubin AST ALT Alkaline Phosphatase Ammonia Total Protein Albumin Beta-Hydroxybutyric Acd 150.09 H Random Cortisol Nasal Screen MRSA (PCR) Negative Gastric Fluid pH Gastric Occult Blood Salicylates Acetaminophen Blood Type Antibody Screen Crossmatch 12/27/19 12/27/19 12/27/19 20:20 21:21 21:21 WBC RBC Hgb POC Hgb Hct POC Hct MCV MCH MCHC RDW Std Deviation RDW Coeff of Ethel Plt Count MPV Immature Gran % (Auto) Neut % (Auto) Lymph % (Auto) [place] % (Auto) Eos % (Auto) Baso % (Auto) Immature Gran # (Auto) Neut # (Auto) Lymph # (Auto) [place] # (Auto) Eos # (Auto) Baso # (Auto) Absolute Nucleated RBC Nucleated RBC % (auto) Hypogranular Neuts Platelet Estimate RBC Morphology Basophilic Stippling PT INR Sample Site POC pH POC pCO2 POC pO2 POC HCO3 POC Total CO2 POC Base Excess ABG pH ABG pH (Temp Correct) ABG pCO2 ABG pCO2 (Temp Corrct ABG pO2 POC ABG pO2 at Pt Temp ABG HCO3 ABG O2 Saturation ABG Base Excess Archie Test VBG pH 7.29 L Barometric Pressure Oxygen Given O2 Delivery Device POC O2 Rate Minute Ventilation POC FiO2 Tidal Volume PEEP POC Sodium Sodium 136 D POC Potassium Potassium 3.6 Chloride 99 Carbon Dioxide 7 L* Anion Gap 30.0 H BUN 59 H Creatinine 1.31 H Est Cr Clr Drug Dosing 44.2 Est GFR ( Amer) 53.4 Est GFR (Non-Af Amer) 46.0 BUN/Creatinine Ratio 45.2 H Glucose 568 H* 495 H* POC Glucose POC Glucose (other) Estimat Average Glucose Hemoglobin A1c Lactate Calcium 7.8 L Phosphorus 1.5 L* D 1.0 L* Magnesium 2.3 Total Bilirubin Direct Bilirubin AST ALT Alkaline Phosphatase Ammonia Total Protein Albumin Beta-Hydroxybutyric Acd 125.70 H Random Cortisol Nasal Screen MRSA (PCR) Gastric Fluid pH Gastric Occult Blood Salicylates Acetaminophen Blood Type Antibody Screen Crossmatch 12/27/19 12/27/19 12/27/19 21:44 22:49 23:45 WBC RBC Hgb POC Hgb Hct POC Hct MCV MCH MCHC RDW Std Deviation RDW Coeff of Ethel Plt Count MPV Immature Gran % (Auto) Neut % (Auto) Lymph % (Auto) [place] % (Auto) Eos % (Auto) Baso % (Auto) Immature Gran # (Auto) Neut # (Auto) Lymph # (Auto) [place] # (Auto) Eos # (Auto) Baso # (Auto) Absolute Nucleated RBC Nucleated RBC % (auto) Hypogranular Neuts Platelet Estimate RBC Morphology Basophilic Stippling PT INR Sample Site POC pH POC pCO2 POC pO2 POC HCO3 POC Total CO2 POC Base Excess ABG pH ABG pH (Temp Correct) ABG pCO2 ABG pCO2 (Temp Corrct ABG pO2 POC ABG pO2 at Pt Temp ABG HCO3 ABG O2 Saturation ABG Base Excess Archie Test VBG pH Barometric Pressure Oxygen Given O2 Delivery Device POC O2 Rate Minute Ventilation POC FiO2 Tidal Volume PEEP POC Sodium Sodium POC Potassium Potassium Chloride Carbon Dioxide Anion Gap BUN Creatinine Est Cr Clr Drug Dosing Est GFR ( Amer) Est GFR (Non-Af Amer) BUN/Creatinine Ratio Glucose POC Glucose 471 H* 465 H* 439 H* POC Glucose (other) Estimat Average Glucose Hemoglobin A1c Lactate Calcium Phosphorus Magnesium Total Bilirubin Direct Bilirubin AST ALT Alkaline Phosphatase Ammonia Total Protein Albumin Beta-Hydroxybutyric Acd Random Cortisol Nasal Screen MRSA (PCR) Gastric Fluid pH Gastric Occult Blood Salicylates Acetaminophen Blood Type Antibody Screen Crossmatch 12/28/19 12/28/19 12/28/19 00:23 00:23 00:50 WBC RBC Hgb POC Hgb Hct POC Hct MCV MCH MCHC RDW Std Deviation RDW Coeff of Ethel Plt Count MPV Immature Gran % (Auto) Neut % (Auto) Lymph % (Auto) [place] % (Auto) Eos % (Auto) Baso % (Auto) Immature Gran # (Auto) Neut # (Auto) Lymph # (Auto) [place] # (Auto) Eos # (Auto) Baso # (Auto) Absolute Nucleated RBC Nucleated RBC % (auto) Hypogranular Neuts Platelet Estimate RBC Morphology Basophilic Stippling PT INR Sample Site POC pH POC pCO2 POC pO2 POC HCO3 POC Total CO2 POC Base Excess ABG pH ABG pH (Temp Correct) ABG pCO2 ABG pCO2 (Temp Corrct ABG pO2 POC ABG pO2 at Pt Temp ABG HCO3 ABG O2 Saturation ABG Base Excess Archie Test VBG pH 7.29 L Barometric Pressure Oxygen Given O2 Delivery Device POC O2 Rate Minute Ventilation POC FiO2 Tidal Volume PEEP POC Sodium Sodium 136 POC Potassium Potassium 5.6 H D Chloride 101 Carbon Dioxide 11 L Anion Gap 24.0 H BUN 61 H Creatinine 1.49 H Est Cr Clr Drug Dosing 38.8 Est GFR ( Amer) 45.7 Est GFR (Non-Af Amer) 39.4 BUN/Creatinine Ratio 40.6 H Glucose 370 H* POC Glucose POC Glucose (other) Estimat Average Glucose Hemoglobin A1c Lactate Calcium 7.9 L Phosphorus 0.6 L* Magnesium 2.1 Total Bilirubin Direct Bilirubin AST ALT Alkaline Phosphatase Ammonia Total Protein Albumin Beta-Hydroxybutyric Acd Random Cortisol Nasal Screen MRSA (PCR) Gastric Fluid pH Gastric Occult Blood Salicylates Acetaminophen Blood Type B Negative Antibody Screen NEGATIVE Crossmatch See Detail 12/28/19 12/28/19 12/28/19 00:50 00:50 00:52 WBC RBC Hgb 6.5 L* D POC Hgb Hct 18.8 L* POC Hct MCV MCH MCHC RDW Std Deviation RDW Coeff of Ethel Plt Count MPV Immature Gran % (Auto) Neut % (Auto) Lymph % (Auto) [place] % (Auto) Eos % (Auto) Baso % (Auto) Immature Gran # (Auto) Neut # (Auto) Lymph # (Auto) [place] # (Auto) Eos # (Auto) Baso # (Auto) Absolute Nucleated RBC Nucleated RBC % (auto) Hypogranular Neuts Platelet Estimate RBC Morphology Basophilic Stippling PT INR Sample Site POC pH POC pCO2 POC pO2 POC HCO3 POC Total CO2 POC Base Excess ABG pH ABG pH (Temp Correct) ABG pCO2 ABG pCO2 (Temp Corrct ABG pO2 POC ABG pO2 at Pt Temp ABG HCO3 ABG O2 Saturation ABG Base Excess Archie Test VBG pH Barometric Pressure Oxygen Given O2 Delivery Device POC O2 Rate Minute Ventilation POC FiO2 Tidal Volume PEEP POC Sodium Sodium POC Potassium Potassium Chloride Carbon Dioxide Anion Gap BUN Creatinine Est Cr Clr Drug Dosing Est GFR ( Amer) Est GFR (Non-Af Amer) BUN/Creatinine Ratio Glucose POC Glucose 396 H* POC Glucose (other) Estimat Average Glucose Hemoglobin A1c Lactate Calcium Phosphorus Magnesium Total Bilirubin Direct Bilirubin AST ALT Alkaline Phosphatase Ammonia Total Protein Albumin Beta-Hydroxybutyric Acd Random Cortisol Nasal Screen MRSA (PCR) Gastric Fluid pH 3 Gastric Occult Blood Positive A Salicylates Acetaminophen Blood Type Antibody Screen Crossmatch 12/28/19 12/28/19 12/28/19 01:45 02:17 02:26 WBC RBC Hgb POC Hgb TNP TNP Hct POC Hct < 15 L* < 15 L* MCV MCH MCHC RDW Std Deviation RDW Coeff of Ethel Plt Count MPV Immature Gran % (Auto) Neut % (Auto) Lymph % (Auto) [place] % (Auto) Eos % (Auto) Baso % (Auto) Immature Gran # (Auto) Neut # (Auto) Lymph # (Auto) [place] # (Auto) Eos # (Auto) Baso # (Auto) Absolute Nucleated RBC Nucleated RBC % (auto) Hypogranular Neuts Platelet Estimate RBC Morphology Basophilic Stippling PT INR Sample Site Art Line Art Line POC pH 7.34 L 7.32 L POC pCO2 15 L 32 L POC pO2 150 H 267 H POC HCO3 8 L 17 L POC Total CO2 9 L* 17 L POC Base Excess -18.0 L -10.0 L ABG pH ABG pH (Temp Correct) 7.339 L 7.323 L ABG pCO2 ABG pCO2 (Temp Corrct 15 L 32 L ABG pO2 POC ABG pO2 at Pt Temp 150 266 ABG HCO3 ABG O2 Saturation ABG Base Excess Archie Test NA NA VBG pH Barometric Pressure Oxygen Given O2 Delivery Device SimpleMask Ventilator POC O2 Rate 20 Minute Ventilation 8.0 POC FiO2 60 Tidal Volume 400 PEEP 5 POC Sodium 133 L 139 Sodium POC Potassium 5.2 H 3.4 Potassium Chloride Carbon Dioxide Anion Gap BUN Creatinine Est Cr Clr Drug Dosing Est GFR ( Amer) Est GFR (Non-Af Amer) BUN/Creatinine Ratio Glucose POC Glucose POC Glucose (other) 309 H Estimat Average Glucose Hemoglobin A1c Lactate Calcium Phosphorus Magnesium Total Bilirubin Direct Bilirubin AST ALT Alkaline Phosphatase Ammonia Total Protein Albumin Beta-Hydroxybutyric Acd Random Cortisol Nasal Screen MRSA (PCR) Gastric Fluid pH Gastric Occult Blood Salicylates Acetaminophen Blood Type Antibody Screen Crossmatch 12/28/19 12/28/19 12/28/19 03:40 04:18 04:18 WBC RBC Hgb POC Hgb Hct POC Hct MCV MCH MCHC RDW Std Deviation RDW Coeff of Ethel Plt Count MPV Immature Gran % (Auto) Neut % (Auto) Lymph % (Auto) [place] % (Auto) Eos % (Auto) Baso % (Auto) Immature Gran # (Auto) Neut # (Auto) Lymph # (Auto) [place] # (Auto) Eos # (Auto) Baso # (Auto) Absolute Nucleated RBC Nucleated RBC % (auto) Hypogranular Neuts Platelet Estimate RBC Morphology Basophilic Stippling PT INR Sample Site POC pH POC pCO2 POC pO2 POC HCO3 POC Total CO2 POC Base Excess ABG pH ABG pH (Temp Correct) ABG pCO2 ABG pCO2 (Temp Corrct ABG pO2 POC ABG pO2 at Pt Temp ABG HCO3 ABG O2 Saturation ABG Base Excess Archie Test VBG pH Barometric Pressure Oxygen Given O2 Delivery Device POC O2 Rate Minute Ventilation POC FiO2 Tidal Volume PEEP POC Sodium Sodium 142 POC Potassium Potassium 4.3 D Chloride 109 H Carbon Dioxide 20 L Anion Gap 13.0 H BUN 63 H Creatinine 1.28 H Est Cr Clr Drug Dosing 45.2 Est GFR ( Amer) 54.9 Est GFR (Non-Af Amer) 47.4 BUN/Creatinine Ratio 49.2 H Glucose 335 H* POC Glucose POC Glucose (other) 330 H Estimat Average Glucose Hemoglobin A1c Lactate Calcium 8.1 L Phosphorus 0.7 L* Magnesium 1.7 L Total Bilirubin 1.3 H Direct Bilirubin 0.4 H AST 51 H ALT 33 Alkaline Phosphatase 46 Ammonia Total Protein 3.8 L D Albumin 2.1 L Beta-Hydroxybutyric Acd 53.24 H Random Cortisol Nasal Screen MRSA (PCR) Gastric Fluid pH Gastric Occult Blood Salicylates 3.0 Acetaminophen 7 L Blood Type Antibody Screen Crossmatch 12/28/19 12/28/19 12/28/19 04:18 04:18 04:18 WBC 5.92 RBC 2.60 L Hgb 7.8 L POC Hgb Hct 21.8 L POC Hct MCV 83.8 D MCH 30.0 MCHC 35.8 RDW Std Deviation 44.2 RDW Coeff of Ethel 14.4 Plt Count 82 L D MPV 9.3 Immature Gran % (Auto) 0.2 Neut % (Auto) 80.2 Lymph % (Auto) 12.5 [place] % (Auto) 7.1 Eos % (Auto) 0.0 Baso % (Auto) 0.0 Immature Gran # (Auto) 0.01 Neut # (Auto) 4.75 Lymph # (Auto) 0.74 L [place] # (Auto) 0.42 Eos # (Auto) 0.00 Baso # (Auto) 0.00 Absolute Nucleated RBC Nucleated RBC % (auto) Hypogranular Neuts Platelet Estimate Decreased L RBC Morphology Unremarkable Basophilic Stippling PT 14.0 H INR 1.3 H Sample Site POC pH POC pCO2 POC pO2 POC HCO3 POC Total CO2 POC Base Excess ABG pH ABG pH (Temp Correct) ABG pCO2 ABG pCO2 (Temp Corrct ABG pO2 POC ABG pO2 at Pt Temp ABG HCO3 ABG O2 Saturation ABG Base Excess Archie Test VBG pH Barometric Pressure Oxygen Given O2 Delivery Device POC O2 Rate Minute Ventilation POC FiO2 Tidal Volume PEEP POC Sodium Sodium POC Potassium Potassium Chloride Carbon Dioxide Anion Gap BUN Creatinine Est Cr Clr Drug Dosing Est GFR ( Amer) Est GFR (Non-Af Amer) BUN/Creatinine Ratio Glucose POC Glucose POC Glucose (other) Estimat Average Glucose Hemoglobin A1c Lactate 1.9 Calcium Phosphorus Magnesium Total Bilirubin Direct Bilirubin AST ALT Alkaline Phosphatase Ammonia Total Protein Albumin Beta-Hydroxybutyric Acd Random Cortisol Nasal Screen MRSA (PCR) Gastric Fluid pH Gastric Occult Blood Salicylates Acetaminophen Blood Type Antibody Screen Crossmatch 12/28/19 12/28/19 12/28/19 04:18 04:18 04:18 WBC RBC Hgb POC Hgb Hct POC Hct MCV MCH MCHC RDW Std Deviation RDW Coeff of Ethel Plt Count MPV Immature Gran % (Auto) Neut % (Auto) Lymph % (Auto) [place] % (Auto) Eos % (Auto) Baso % (Auto) Immature Gran # (Auto) Neut # (Auto) Lymph # (Auto) [place] # (Auto) Eos # (Auto) Baso # (Auto) Absolute Nucleated RBC Nucleated RBC % (auto) Hypogranular Neuts Platelet Estimate RBC Morphology Basophilic Stippling PT INR Sample Site POC pH POC pCO2 POC pO2 POC HCO3 POC Total CO2 POC Base Excess ABG pH 7.38 ABG pH (Temp Correct) ABG pCO2 32 L ABG pCO2 (Temp Corrct ABG pO2 161 H POC ABG pO2 at Pt Temp ABG HCO3 19 ABG O2 Saturation 99.3 H ABG Base Excess -5.8 Archie Test POS VBG pH Barometric Pressure 734.6 Oxygen Given 40% O2 Delivery Device POC O2 Rate Minute Ventilation POC FiO2 Tidal Volume PEEP POC Sodium Sodium POC Potassium Potassium Chloride Carbon Dioxide Anion Gap BUN Creatinine Est Cr Clr Drug Dosing Est GFR ( Amer) Est GFR (Non-Af Amer) BUN/Creatinine Ratio Glucose POC Glucose POC Glucose (other) Estimat Average Glucose Hemoglobin A1c Lactate Calcium Phosphorus Magnesium Total Bilirubin Direct Bilirubin AST ALT Alkaline Phosphatase Ammonia 101.0 H Total Protein Albumin Beta-Hydroxybutyric Acd Random Cortisol 35.78 Nasal Screen MRSA (PCR) Gastric Fluid pH Gastric Occult Blood Salicylates Acetaminophen Blood Type Antibody Screen Crossmatch 12/28/19 12/28/19 12/28/19 05:52 07:27 08:12 WBC RBC Hgb POC Hgb Hct POC Hct MCV MCH MCHC RDW Std Deviation RDW Coeff of Ethel Plt Count MPV Immature Gran % (Auto) Neut % (Auto) Lymph % (Auto) [place] % (Auto) Eos % (Auto) Baso % (Auto) Immature Gran # (Auto) Neut # (Auto) Lymph # (Auto) [place] # (Auto) Eos # (Auto) Baso # (Auto) Absolute Nucleated RBC Nucleated RBC % (auto) Hypogranular Neuts Platelet Estimate RBC Morphology Basophilic Stippling PT INR Sample Site POC pH POC pCO2 POC pO2 POC HCO3 POC Total CO2 POC Base Excess ABG pH ABG pH (Temp Correct) ABG pCO2 ABG pCO2 (Temp Corrct ABG pO2 POC ABG pO2 at Pt Temp ABG HCO3 ABG O2 Saturation ABG Base Excess Archie Test VBG pH Barometric Pressure Oxygen Given O2 Delivery Device POC O2 Rate Minute Ventilation POC FiO2 Tidal Volume PEEP POC Sodium Sodium POC Potassium Potassium Chloride Carbon Dioxide Anion Gap BUN Creatinine Est Cr Clr Drug Dosing Est GFR ( Amer) Est GFR (Non-Af Amer) BUN/Creatinine Ratio Glucose POC Glucose POC Glucose (other) 294 H 295 H 276 H Estimat Average Glucose Hemoglobin A1c Lactate Calcium Phosphorus Magnesium Total Bilirubin Direct Bilirubin AST ALT Alkaline Phosphatase Ammonia Total Protein Albumin Beta-Hydroxybutyric Acd Random Cortisol Nasal Screen MRSA (PCR) Gastric Fluid pH Gastric Occult Blood Salicylates Acetaminophen Blood Type Antibody Screen Crossmatch 12/28/19 12/28/19 12/28/19 08:53 08:53 08:53 WBC 7.39 RBC 2.68 L Hgb 7.9 L POC Hgb Hct 21.7 L POC Hct MCV 81.0 MCH 29.5 MCHC 36.4 H RDW Std Deviation 43.4 RDW Coeff of Ethel 14.8 H Plt Count 72 L MPV 9.6 Immature Gran % (Auto) 0.5 Neut % (Auto) 77.4 Lymph % (Auto) 15.4 [place] % (Auto) 6.6 Eos % (Auto) 0.0 Baso % (Auto) 0.1 Immature Gran # (Auto) 0.04 H Neut # (Auto) 5.71 Lymph # (Auto) 1.14 L [place] # (Auto) 0.49 Eos # (Auto) 0.00 Baso # (Auto) 0.01 Absolute Nucleated RBC 0.02 H Nucleated RBC % (auto) 0.3 Hypogranular Neuts 1+ Platelet Estimate RBC Morphology Basophilic Stippling 1+ PT INR Sample Site POC pH POC pCO2 POC pO2 POC HCO3 POC Total CO2 POC Base Excess ABG pH ABG pH (Temp Correct) ABG pCO2 ABG pCO2 (Temp Corrct ABG pO2 POC ABG pO2 at Pt Temp ABG HCO3 ABG O2 Saturation ABG Base Excess Archie Test VBG pH 7.49 H Barometric Pressure Oxygen Given O2 Delivery Device POC O2 Rate Minute Ventilation POC FiO2 Tidal Volume PEEP POC Sodium Sodium 142 POC Potassium Potassium 3.2 L D Chloride 108 H Carbon Dioxide 25 Anion Gap 9.0 BUN 61 H Creatinine 1.41 H Est Cr Clr Drug Dosing 41.0 Est GFR ( Amer) 48.8 Est GFR (Non-Af Amer) 42.1 BUN/Creatinine Ratio 43.3 H Glucose 259 H POC Glucose POC Glucose (other) Estimat Average Glucose Hemoglobin A1c Lactate Calcium 8.3 L Phosphorus 0.6 L* Magnesium 1.6 L Total Bilirubin Direct Bilirubin AST ALT Alkaline Phosphatase Ammonia Total Protein Albumin Beta-Hydroxybutyric Acd Random Cortisol Nasal Screen MRSA (PCR) Gastric Fluid pH Gastric Occult Blood Salicylates Acetaminophen Blood Type Antibody Screen Crossmatch 12/28/19 12/28/19 12/28/19 09:01 09:02 09:59 WBC RBC Hgb POC Hgb Hct POC Hct MCV MCH MCHC RDW Std Deviation RDW Coeff of Ethel Plt Count MPV Immature Gran % (Auto) Neut % (Auto) Lymph % (Auto) [place] % (Auto) Eos % (Auto) Baso % (Auto) Immature Gran # (Auto) Neut # (Auto) Lymph # (Auto) [place] # (Auto) Eos # (Auto) Baso # (Auto) Absolute Nucleated RBC Nucleated RBC % (auto) Hypogranular Neuts Platelet Estimate RBC Morphology Basophilic Stippling PT 12.3 H INR 1.2 H Sample Site POC pH POC pCO2 POC pO2 POC HCO3 POC Total CO2 POC Base Excess ABG pH ABG pH (Temp Correct) ABG pCO2 ABG pCO2 (Temp Corrct ABG pO2 POC ABG pO2 at Pt Temp ABG HCO3 ABG O2 Saturation ABG Base Excess Archie Test VBG pH Barometric Pressure Oxygen Given O2 Delivery Device POC O2 Rate Minute Ventilation POC FiO2 Tidal Volume PEEP POC Sodium Sodium POC Potassium Potassium Chloride Carbon Dioxide Anion Gap BUN Creatinine Est Cr Clr Drug Dosing Est GFR ( Amer) Est GFR (Non-Af Amer) BUN/Creatinine Ratio Glucose POC Glucose POC Glucose (other) 246 H 183 H Estimat Average Glucose Hemoglobin A1c Lactate Calcium Phosphorus Magnesium Total Bilirubin Direct Bilirubin AST ALT Alkaline Phosphatase Ammonia Total Protein Albumin Beta-Hydroxybutyric Acd Random Cortisol Nasal Screen MRSA (PCR) Gastric Fluid pH Gastric Occult Blood Salicylates Acetaminophen Blood Type Antibody Screen Crossmatch 12/28/19 12/28/19 12/28/19 10:56 12:01 12:58 WBC RBC Hgb POC Hgb Hct POC Hct MCV MCH MCHC RDW Std Deviation RDW Coeff of Ethel Plt Count MPV Immature Gran % (Auto) Neut % (Auto) Lymph % (Auto) [place] % (Auto) Eos % (Auto) Baso % (Auto) Immature Gran # (Auto) Neut # (Auto) Lymph # (Auto) [place] # (Auto) Eos # (Auto) Baso # (Auto) Absolute Nucleated RBC Nucleated RBC % (auto) Hypogranular Neuts Platelet Estimate RBC Morphology Basophilic Stippling PT INR Sample Site POC pH POC pCO2 POC pO2 POC HCO3 POC Total CO2 POC Base Excess ABG pH ABG pH (Temp Correct) ABG pCO2 ABG pCO2 (Temp Corrct ABG pO2 POC ABG pO2 at Pt Temp ABG HCO3 ABG O2 Saturation ABG Base Excess Archie Test VBG pH Barometric Pressure Oxygen Given O2 Delivery Device POC O2 Rate Minute Ventilation POC FiO2 Tidal Volume PEEP POC Sodium Sodium POC Potassium Potassium Chloride Carbon Dioxide Anion Gap BUN Creatinine Est Cr Clr Drug Dosing Est GFR ( Amer) Est GFR (Non-Af Amer) BUN/Creatinine Ratio Glucose POC Glucose 134 H POC Glucose (other) 139 H 117 H Estimat Average Glucose Hemoglobin A1c Lactate Calcium Phosphorus Magnesium Total Bilirubin Direct Bilirubin AST ALT Alkaline Phosphatase Ammonia Total Protein Albumin Beta-Hydroxybutyric Acd Random Cortisol Nasal Screen MRSA (PCR) Gastric Fluid pH Gastric Occult Blood Salicylates Acetaminophen Blood Type Antibody Screen Crossmatch 12/28/19 12/28/19 12/28/19 13:19 13:19 14:02 WBC RBC Hgb POC Hgb Hct POC Hct MCV MCH MCHC RDW Std Deviation RDW Coeff of Ethel Plt Count MPV Immature Gran % (Auto) Neut % (Auto) Lymph % (Auto) [place] % (Auto) Eos % (Auto) Baso % (Auto) Immature Gran # (Auto) Neut # (Auto) Lymph # (Auto) [place] # (Auto) Eos # (Auto) Baso # (Auto) Absolute Nucleated RBC Nucleated RBC % (auto) Hypogranular Neuts Platelet Estimate RBC Morphology Basophilic Stippling PT INR Sample Site POC pH POC pCO2 POC pO2 POC HCO3 POC Total CO2 POC Base Excess ABG pH ABG pH (Temp Correct) ABG pCO2 ABG pCO2 (Temp Corrct ABG pO2 POC ABG pO2 at Pt Temp ABG HCO3 ABG O2 Saturation ABG Base Excess Archie Test VBG pH 7.60 H Barometric Pressure Oxygen Given O2 Delivery Device POC O2 Rate Minute Ventilation POC FiO2 Tidal Volume PEEP POC Sodium Sodium 142 POC Potassium Potassium 3.2 L Chloride 110 H Carbon Dioxide 27 Anion Gap 5.0 BUN 53 H Creatinine 1.24 H Est Cr Clr Drug Dosing 46.7 Est GFR ( Amer) 57.0 Est GFR (Non-Af Amer) 49.2 BUN/Creatinine Ratio 42.6 H Glucose 125 H POC Glucose 127 H POC Glucose (other) Estimat Average Glucose Hemoglobin A1c Lactate Calcium 8.5 Phosphorus 1.2 L* Magnesium 2.5 H Total Bilirubin Direct Bilirubin AST ALT Alkaline Phosphatase Ammonia Total Protein Albumin Beta-Hydroxybutyric Acd Random Cortisol Nasal Screen MRSA (PCR) Gastric Fluid pH Gastric Occult Blood Salicylates Acetaminophen Blood Type Antibody Screen Crossmatch 12/28/19 12/28/19 12/28/19 15:11 16:50 18:04 WBC RBC Hgb POC Hgb Hct POC Hct MCV MCH MCHC RDW Std Deviation RDW Coeff of Ethel Plt Count MPV Immature Gran % (Auto) Neut % (Auto) Lymph % (Auto) [place] % (Auto) Eos % (Auto) Baso % (Auto) Immature Gran # (Auto) Neut # (Auto) Lymph # (Auto) [place] # (Auto) Eos # (Auto) Baso # (Auto) Absolute Nucleated RBC Nucleated RBC % (auto) Hypogranular Neuts Platelet Estimate RBC Morphology Basophilic Stippling PT INR Sample Site POC pH POC pCO2 POC pO2 POC HCO3 POC Total CO2 POC Base Excess ABG pH ABG pH (Temp Correct) ABG pCO2 ABG pCO2 (Temp Corrct ABG pO2 POC ABG pO2 at Pt Temp ABG HCO3 ABG O2 Saturation ABG Base Excess Archie Test VBG pH Barometric Pressure Oxygen Given O2 Delivery Device POC O2 Rate Minute Ventilation POC FiO2 Tidal Volume PEEP POC Sodium Sodium POC Potassium Potassium Chloride Carbon Dioxide Anion Gap BUN Creatinine Est Cr Clr Drug Dosing Est GFR ( Amer) Est GFR (Non-Af Amer) BUN/Creatinine Ratio Glucose POC Glucose 126 H POC Glucose (other) 106 H 99 Estimat Average Glucose Hemoglobin A1c Lactate Calcium Phosphorus Magnesium Total Bilirubin Direct Bilirubin AST ALT Alkaline Phosphatase Ammonia Total Protein Albumin Beta-Hydroxybutyric Acd Random Cortisol Nasal Screen MRSA (PCR) Gastric Fluid pH Gastric Occult Blood Salicylates Acetaminophen Blood Type Antibody Screen Crossmatch PG Care Time/CCT Total # of Minutes Spent Total Time Spent with Patient: Total time spent is greater than 50% in coordination of care (as documented) at patient's floor/unit and/or counseling patient: Coding Level of Care Code 15894 Subseq Hosp Care Lvl 1 Diagnoses Hemorrhagic shock R57.8 Acute respiratory failure with hypoxia J96.01 Acute blood loss anemia D62 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 Encounter type: initial encounter DKA (diabetic ketoacidoses) E10.11 Diabetes mellitus complication detail: with coma Diabetes mellitus type: type 1 Acute kidney injury N17.9 Hyponatremia E87.1 Metabolic encephalopathy G93.41 Hypokalemia E87.6 Metabolic acidosis E87.2 History of left below knee amputation Z89.512 Depression with anxiety F41.8 Exocrine pancreatic insufficiency 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 Liver cirrhosis, alcoholic K70.30 Ascites presence: without ascites Psoriasis L40.9 Alcohol dependence F10.20 Complication of substance-induced condition: uncomplicated Tobacco dependence F17.200 DVT prophylaxis Z29.9 (1) Alcohol dependence Complication of substance-induced condition: uncomplicated (2) DKA (diabetic ketoacidoses) Diabetes mellitus complication detail: with coma Diabetes mellitus type: type 1 Qualified Code(s): E10.11 - Type 1 diabetes mellitus with ketoacidosis with coma (3) Liver cirrhosis, alcoholic Ascites presence: without ascites Qualified Code(s): K70.30 - Alcoholic cirrhosis of liver without ascites (4) Caustic esophageal injury Encounter type: initial encounter Qualified Code(s): T28.6XXA - Corrosion of esophagus, initial encounter
[2019-12-28 21:30] LABS: Calcium 7.9 mg/dl (8.5-10.1); Creatinine Clr Calc Pharmacy 47.8 ml/min; Est GFR (African American) 58.7; Est GFR (Non-African American) 50.7; Hematocrit (blood only) 20.5 % (37-47); Hemoglobin 7.5 g/dL (12.0-16.0); Mean Corpuscular Hgb Conc 36.6 g/dL (32-36); Mean Corpuscular Volume 79.2 fL (80-100); Platelet Count 50 K/uL (130-400); Potassium 3.1 mmol/L (3.5-5.1); RDW Coefficient of Variation 15.6 % (11.5-14.5); Red Blood Count 2.59 M/uL (4.2-5.4); White Blood Count 6.22 K/uL (4.8-10.8)
[2019-12-28 21:33] LABS: Phosphorus 1.8 mg/dl (2.5-4.9)
[2019-12-28 21:41] LABS: Eosinophils # (auto) 0.13 K/uL (0-0.5); Eosinophils % (auto) 2.1 %; Immature Granulocytes # (auto) 0.02 K/uL (0.00-0.02); Immature Granulocytes % (auto) 0.3 %; Lymphocytes # (auto) 0.87 K/uL (1.2-3.4); Monocytes # (auto) 0.25 K/uL (0.11-0.59); Neutrophils # (auto) 4.95 K/uL (1.4-6.5); Neutrophils % (auto) 79.6 %
[2019-12-28] MEDS ORDERED: SODIUM PHOSPHATE 21 MMOL in SODIUM CHLORIDE 0.9% 500 ML IV ONE (21:45)
[2019-12-29] MEDS: fentaNYL citrate 100 MCG/2 ML VIAL IV PRN ×7 (02:51→23:53)
[2019-12-29] MEDS: PANTOprazole 40 MG in DEXTROSE 5% 100 ML IV SCH ×5 (03:09→21:53)
[2019-12-29] MEDS: LACTATED RINGER'S 1,000 ML IV SCH ×3 (03:10→19:24)
[2019-12-29] MEDS: PIPERACILLIN/TAZOBACTAM 4.5 GM in DEXTROSE 5% 100 ML IV SCH ×3 (03:11→19:25)
[2019-12-29 04:37] LABS: Hematocrit (blood only) 18.6 % (37-47); Mean Corpuscular Hgb Conc 37.6 g/dL (32-36); Mean Corpuscular Volume 79.8 fL (80-100); Mean Platelet Volume 9.5 fL (7.4-10.4); Platelet Count 46 K/uL (130-400); RDW Coefficient of Variation 15.8 % (11.5-14.5); RDW Standard Deviation 45.9 fL (36.4-46.3); Red Blood Count 2.33 M/uL (4.2-5.4); White Blood Count 6.86 K/uL (4.8-10.8)
[2019-12-29 04:41] LABS: INR 1.1 (0.9-1.1); Prothrombin Time 11.3 Seconds (9.0-12.0)
[2019-12-29 04:47] LABS: Albumin Level 1.7 gm/dl (3.4-5.0); BUN Creatinine Ratio 34.7 (10-20); Bilirubin Direct 0.4 mg/dl (0-0.2); Calcium 7.5 mg/dl (8.5-10.1); Creatinine Clr Calc Pharmacy 48.6 ml/min; Est GFR (African American) 59.9; Est GFR (Non-African American) 51.7; Potassium 2.9 mmol/L (3.5-5.1)
[2019-12-29 04:53] LABS: Bilirubin,Total 0.7 mg/dl (0.2-1); Total Protein 3.8 gm/dl (6.4-8.2)
[2019-12-29 05:05] LABS: Basophils # (auto) 0.01 K/uL (0-0.2); Basophils % (auto) 0.1 %; Echinocytes 1+; Eosinophils # (auto) 0.15 K/uL (0-0.5); Eosinophils % (auto) 2.2 %; Immature Granulocytes # (auto) 0.03 K/uL (0.00-0.02); Immature Granulocytes % (auto) 0.4 %; Lymphocytes # (auto) 0.95 K/uL (1.2-3.4); Lymphocytes % (auto) 13.8 %; Monocytes # (auto) 0.32 K/uL (0.11-0.59); Monocytes % (auto) 4.7 %; Neutrophils % (auto) 78.8 %
[2019-12-29 05:50] LABS: iSTAT Art Bld Gas pCO2 Correct 27 mmHg (35-46); iSTAT Art Bld Gas pH Corrected 7.507 (7.35-7.45); iSTAT Arterial Blood Gas HCO3 21 meg/L (19-24); iSTAT Arterial Blood Gas pCO2 26 mmHg (35-46); iSTAT Arterial Blood Gas pH 7.52 (7.35-7.45); iSTAT Arterial Blood Gas pO2 75 mmHg (80-95); iSTAT Arterial Blood Gas pO2 C 80; iSTAT Carbon Dioxide 22 mmol/L (24-31); iSTAT FiO2 30 %; iSTAT Hematocrit 16 % (37-47); iSTAT Hemoglobin 5.4 g/dl (12.0-16.0); iSTAT Site Art Line; iSTAT Sodium 142 mmol/L (135-144)
[2019-12-29] MEDS ORDERED: SODIUM CHLORIDE 0.9% 250 ML IV PRN ×4 (05:59→09:47)
[2019-12-29] MEDS: propofoL 1,000 MG/100 ML VIAL IV SCH ×5 (06:23→21:06)
[2019-12-29] MEDS: POTASSIUM CHLORIDE / WTR 20 MEQ/100 ML PLCT IV SCH ×8 (06:24→23:35)
--- NOTE | 2019-12-29 07:05 | XRay Report ---
XR chest 1V portable CLINICAL HISTORY: 54 years-old Female presenting with f/u. TECHNIQUE: Portable upright AP view of the chest was obtained. COMPARISON: 12/28/2019. FINDINGS: Endotracheal tube remains within the upper thoracic trachea terminating approximately 6 cm from the c catherine. Right internal jugular central venous catheter terminates in the lower SVC, unchanged. Numerou s overlying external leads degrade image quality. Cardiomediastinal silhouette normal. Normal lung volumes. Significant interval decrease in left basil ar infiltrate.. No large effusion or pneumothorax. Osseous structures normal. Upper abdomen normal. IMPRESSION: 1. Appropriately positioned line and tube. 2. Significant interval decrease in left basilar infiltrate. Attention on follow-up. ACT 112: Negative or not required by law. Electronically signed by: Riki Escobedo M.D. 12/29/2019 7:04 AM
[2019-12-29] MEDS ORDERED: CALCIUM CHLORIDE 10% 1,000 MG in SODIUM CHLORIDE 0.9% 50 ML IV STA ×3 (08:34→17:47)
--- NOTE | 2019-12-29 08:42 | Critical Care Progress Note ---
Date of Service December 29, 2019 Assessment & Plan (1) Metabolic acidosis: Impression: 54-year-old female with history of diabetes and alcohol abuse admitted with diabetic ketoacidosis, acute renal failure, and severe hypokalemia. 24-hour events: Pressors were weaned off. She has had a slow decrease in hemoglobin and hematocrit and was transfused 1 unit of packed cells early this morning. When sedation is lightened, she becomes tachypneic and restless. Recommendations: 1. Severe DKA: Continue insulin infusion for now. Anion gap is closed. Given the severity of her illness we will continue insulin for now. Suspect etiology was noncompliance. Will transition to long-acting and sliding scale insulin once stable, although somewhat problematic given the fact the patient cannot really have enteric feeding or take p.o. May need to continue while she is on the mechanical ventilator 2. Profound hypokalemia: Replacement protocol initiated. 3. Metabolic acidosis: Lactate resolved. 4. Acute kidney injury: Consistent with prerenal state as it is correcting with volume resuscitation 5. GI bleed: Findings on endoscopy were concerning for potential caustic ingestion although somewhat unclear as typically caustic ingestions would involve the entire esophagus not the distal third. No nasogastric or orogastric tube will be placed due to risk of perforation. Will require repeat endoscopy in 2 to 4 weeks. She continues to have a slow decrease in hemoglobin and hematocrit an additional unit of packed cells will be administered this morning. We will check fibrinogen. Given ongoing bleeding and low platelet count, 1 unit of platelets will also be administered. Continue serial hemoglobin and hematocrit. Target hemoglobin between 8 and 10 given acute bleeding, platelets greater than 50,000, and fibrinogen greater than 200 with INR less than 1.4. Will replace calcium. Continue broad-spectrum antibiotics in the form of Zosyn given risk of mediastinitis. We will hold off on antifungal agents currently. Random cortisol was normal at 35. No indication for replacement steroids. May benefit from albumin support if remains hemodynamically unstable. 6. History of alcohol abuse: Continue thiamine and folate. Will need to observe for signs and symptoms of alcohol withdrawal. 7. Acute hypoxemic respiratory failure: Secondary to acute blood loss anemia and possible aspiration. Continue mechanical ventilation for now. Blood gas shows respiratory alkalosis. Decrease respiratory rate to 15. The arterial line does have some evidence of blistering and unclear if this is a reaction to adhesive tape from the dressing. She is hemodynamically stable, the arterial line will be discontinued. We may need to replace it depending on her stability but will hold off for now. She does have some peripheral parenchymal abnormalities identified on CT scan which could be aspiration or pneumonia. This should be covered by piperacillin and tazobactam 8. Hypovolemic shock due to acute blood loss: Now resolved. She does have a low-grade fever currently. Continue antibiotics for now 9. Questionable aspiration pneumonia: Should be covered by Zosyn for now. Follow radiograph Patient is critically ill at this point time with significant possibility of clinical deterioration and loss of life or limb. No family is immediately available. Critical care time up to this point 47 minutes (2) Acute hyperglycemia: (3) Altered mental status: (4) Renal insufficiency: Subjective Remains intubated and sedated. Review of Systems Review of Systems: Unobtainable due to endotracheal tube Physical Exam Constitutional: + thin and + mechanically ventilated ENMT: Mild oozing from the lips. Neck: trachea midline, no thyromegaly Respiratory: normal respiratory effort, lungs clear to auscultation Cardiovascular: RRR, no murmur, no edema Gastrointestinal (Abdomen): normal bowel sounds, soft, nontender, no hepatosplenomegaly Skin: no rashes, warm and dry Lymphatic: no cervical lymphadenopathy Results & Data ([facility]) Vital Signs (Past 12 Hours) Vital Signs Temp Pulse Resp BP Pulse Ox 12/29/19 07:30 108 H 99 12/29/19 07:15 113 H 98 12/29/19 07:06 105 H 22 99 12/29/19 07:00 109 H 99 12/29/19 06:50 112 H 98/59 L 100 12/29/19 06:45 111 H 98 12/29/19 06:34 38.0 C H 111 H 22 102/63 97 12/29/19 06:30 113 H 99 12/29/19 06:16 113 H 98 12/29/19 06:00 112 H 98 12/29/19 05:50 105 H 102/63 98 12/29/19 05:45 113 H 97 12/29/19 05:40 113 H 20 98 12/29/19 05:30 113 H 97 12/29/19 05:00 112 H 19 97 12/29/19 04:00 105 H 20 116/81 96 12/29/19 02:52 112 H 20 100/58 L 96 12/29/19 02:32 105 H 20 98 12/29/19 02:00 105 H 20 108/62 98 12/29/19 01:00 107 H 20 101/61 98 12/29/19 00:00 113 H 20 109/66 98 12/28/19 23:00 109 H 20 99 12/28/19 22:00 111 H 20 133/73 99 12/28/19 21:00 119 H 20 115/67 98 Laboratory Results 12/29/19 04:21 12/29/19 04:21 Fibrinogen pending. Calcium low Diagnostic Findings Chest x-ray from today was independently reviewed and compared to yesterday's film. The previously noted left basilar airspace opacity appears improved today. Endotracheal tube and internal jugular line remain in good position. No new infiltrates. CT of the chest from 12/28/2019 was reviewed. No mediastinal air or mediastinal abnormality identified. There are some patchy parenchymal opacities in the periphery of the lung. No overt consolidation. Coding Level of Care Code Critical Care 1st 30-74 mins Diagnoses Metabolic acidosis E87.2 Acute hyperglycemia R73.9 Altered mental status R41.82 Altered mental status type: unspecified Renal insufficiency N28.9 Time Spent (min) 47 (1) Altered mental status Altered mental status type: unspecified Qualified Code(s): R41.82 - Altered mental status, unspecified
[2019-12-29] MEDS: THIAMINE HCL 200 MG in SODIUM CHLORIDE 0.9% 50 ML IV SCH ×2 (09:08→21:01)
[2019-12-29] MEDS: INSULIN ASPART 100 UNITS/ML 3 ML PEN SC SCH ×4 (09:08→20:12)
[2019-12-29 10:41] LABS: Fibrinogen 356 mg/dl (184-400)
--- NOTE | 2019-12-29 11:47 | Pharmacy Report ---
Pharmacy Glycemic Short Note 2 - Date of Service December 29, 2019 - Glycemic Short BSG Results (Last 24 hours): 12/28/19 12/28/19 12/28/19 09:01 09:59 10:56 Glucose POC Glucose POC Glucose (other) 246 H 183 H 139 H 12/28/19 12/28/19 12/28/19 12:01 12:58 13:19 Glucose 125 H POC Glucose 134 H POC Glucose (other) 117 H 12/28/19 12/28/19 12/28/19 14:02 15:11 16:50 Glucose POC Glucose 127 H 126 H POC Glucose (other) 106 H 12/28/19 12/28/19 12/28/19 18:04 19:18 20:24 Glucose POC Glucose POC Glucose (other) 99 97 97 12/28/19 12/28/19 12/28/19 21:02 21:58 22:59 Glucose 105 H POC Glucose POC Glucose (other) 105 H 114 H 12/29/19 12/29/19 12/29/19 00:08 01:15 03:17 Glucose POC Glucose POC Glucose (other) 130 H 133 H 131 H 12/29/19 12/29/19 12/29/19 04:21 06:33 08:02 Glucose 140 H POC Glucose 227 H POC Glucose (other) 182 H 12/29/19 12/29/19 12/29/19 09:15 10:09 11:07 Glucose POC Glucose 183 H 183 H 137 H POC Glucose (other) OUTPATIENT ANTIDIABETIC REGIMEN: * Jardiance 10 mg PO Daily * A1c = 14.9% on 12/27/2019 ASSESSMENT: 12/29/19: * Patient remains on mechanical ventilation, DKA has resolved * Given critical status and fact that she is NPO for the next several days, will continue to managed T2DM with insulin infusion * Insulin gtt was fairly consistent at 1.0 units/hr overnight, BSG increased this AM up to 227 mg/dL * Currently, the insulin gtt is running at 0.8 units/hr * Patient remains hypokalemic despite aggressive potassium replacement * Plan to start 40 mEq IV KCl BID in addition to ICU electrolyte replacement protocol 12/28/19: * 54 yo F admitted secondary to DKA, later found to have UGIB and became hypotensive requiring intubation * Upon presentation: BSG 830 mg/dL, Serum Bicarb 6 mmol/L, Anion Gap 41, Potassium 2.6 mmol/L, Beta-hydroxybutyric acid 161.88 mg/dL, ABG 7.12/12/125/98 * Patient's laboratory values have improved following fluid resuscitation, electrolyte replacement and initiation of insulin infusion * Most recent labs show closed anion gap, serum bicarb 25 mmol/L, K 3.2 mmol/L, and BSG 246 mg/dL * Patient is in goal BSG range for DKA of 150-250 mg/dL; however, dextrose containing fluids not started as patient is receiving adequate amounts of dextrose from other gtts, will continue to monitor * Electrolyte supplementation to be guided via ICU electrolyte replacement protocol * With patient to remain NPO for several days secondary to assumed caustic agent ingestion and critical status, will continue with insulin gtt PLAN FOR INPATIENT GLYCEMIC CONTROL: * Hold outpatient oral diabetes medications * Continue IV insulin infusion per insulin infusion calculator *If transition to SQ basal-bolus insulin is needed while glycemic management [facility] is not present, would recommend: * Lantus Scale: Please overlap Lantus with insulin drip for 6 hours (GIVE FULL 24 HR DOSE X 1) * 10 units (for BSG < 110 mg/dL) * 16 units (for BSG 110-180 mg/dL) * 22 units (for BSG > 180 mg/dL) * Novolog ACHS (or Q6H if NPO) * Goal Range 120 - 150 mg/dL * Correction Factor: 1 unit for every 35 mg/dL above goal range * Carbohydrate Ratio: 1 unit for every 11 g of CHO PLAN FOR DISCHARGE: * to be determined
--- NOTE | 2019-12-29 12:37 | Gastroenterology Progress Note ---
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 - Continue IV ABX - Continue close monitoring for signs of progressive injury or spontaneous perforation - Will need repeat EGD in 2-3 months to evaluate for healing and check for stricture formation (2) Acute blood loss anemia: - Trend H&H, transfuse PRN - No overt GIB at present with brown stools (3) Alcohol dependence: - Etiology of elevated transaminases not clear this AM, but given the AST/ALT ratio, may be related to h/o ETOH abuse vs medications (DILI) vs viral etiology - Can check acute hepatitis panel - Trend LFTs, INR, albumin, glucose levels daily - Avoid Tylenol, NSAIDs, ETOH, hepatotoxins (4) Acute respiratory failure with hypoxia: - Management per primary/critical care service Admission and Anticipated Discharge Date Admission Date: December 27, 2019 Supervising Physician Co-Signing Physician Notes Continue high dose PPI. Subjective Pt's chart was reviewed; due to concern over coronavirus pandemic, chart was reviewed but pt not seen. Overnight she's had a slow decrease in HGB and HCT; this AM ordered additional pRBC transfusion along with platelets; BUN is improving. Transaminases noted to be acutely elevated this in with AST/ALT ratio of nearly 2:1 (AST 323, ALT 178); bilirubin 0.4 with normal ALP; renal function improving. Remains hypokalemic. BM this AM was liquid brown; no s/s GIB. She remains critically ill, intubated in the ICU. Tylenol level was noted to be 7 on admission. Results & Data ([facility]) Vital Signs (Past 12 Hours) Vital Signs Temp Pulse Resp BP Pulse Ox 12/29/19 12:03 37.5 C 98 H 16 125/80 99 12/29/19 11:40 37.4 C 97 H 16 127/82 99 12/29/19 11:20 37.5 C 99 H 18 128/82 99 12/29/19 11:15 97 H 18 98 12/29/19 10:50 37.7 C H 100 H 16 119/76 98 12/29/19 10:47 100 H 119/76 98 12/29/19 10:35 37.9 C H 103 H 17 121/80 98 12/29/19 10:32 103 H 121/80 98 12/29/19 10:17 37.9 C H 102 H 23 113/78 98 12/29/19 10:02 101 H 97/73 L 99 12/29/19 09:47 100 H 119/75 99 12/29/19 09:32 102 H 123/76 98 12/29/19 09:17 105 H 105/67 98 12/29/19 09:02 110 H 104/69 97 12/29/19 09:00 38.1 C H 109 H 20 111/70 97 12/29/19 08:50 109 H 111/70 97 12/29/19 08:40 15 12/29/19 08:00 100 H 12/29/19 07:50 110 H 114/70 98 12/29/19 07:30 108 H 99 12/29/19 07:15 113 H 98 12/29/19 07:06 105 H 22 99 12/29/19 07:00 109 H 99 12/29/19 06:50 112 H 98/59 L 100 12/29/19 06:45 111 H 98 12/29/19 06:40 38.0 C H 112 H 19 97/53 L 98 12/29/19 06:34 38.0 C H 111 H 22 102/63 97 12/29/19 06:30 113 H 99 12/29/19 06:16 113 H 98 12/29/19 06:00 112 H 98 12/29/19 05:50 105 H 102/63 98 12/29/19 05:45 113 H 97 12/29/19 05:40 113 H 20 98 12/29/19 05:30 113 H 97 12/29/19 05:00 112 H 19 97 12/29/19 04:00 105 H 20 116/81 96 12/29/19 02:52 112 H 20 100/58 L 96 12/29/19 02:32 105 H 20 98 12/29/19 02:00 105 H 20 108/62 98 12/29/19 01:00 107 H 20 101/61 98 Laboratory Results 12/29/19 12/29/19 12/29/19 Range/Units 12:01 11:07 10:20 WBC (4.8-10.8) K/uL RBC (4.2-5.4) M/uL Hgb (12.0-16.0) g/dL POC Hgb Hct (37-47) % POC Hct (37-47) % MCV (80-100) fL MCH (25-34) pg MCHC (32-36) g/dL RDW Std Deviation (36.4-46.3) fL RDW Coeff of Ethel (11.5-14.5) % Plt Count (130-400) K/uL MPV (7.4-10.4) fL Immature Gran % (Auto) % Neut % (Auto) % Lymph % (Auto) % [place] % (Auto) % Eos % (Auto) % Baso % (Auto) % Immature Gran # (Auto) (0.00-0.02) K/uL Neut # (Auto) (1.4-6.5) K/uL Lymph # (Auto) (1.2-3.4) K/uL [place] # (Auto) (0.11-0.59) K/uL Eos # (Auto) (0-0.5) K/uL Baso # (Auto) (0-0.2) K/uL Echinocytes PT (9.0-12.0) Seconds INR (0.9-1.1) Fibrinogen 356 (184-400) mg/dl Sample Site POC pH (7.35-7.45) POC pCO2 (35-46) mmHg POC pO2 (80-95) mmHg POC HCO3 (19-24) francisco/L POC Total CO2 (24-31) mmol/L POC Base Excess (-9-1.8) francisco/L ABG pH (Temp Correct) (7.35-7.45) ABG pCO2 (Temp Corrct (35-46) mmHg POC ABG pO2 at Pt Temp Archie Test VBG pH (7.36-7.41) O2 Delivery Device POC O2 Rate Minute Ventilation POC FiO2 % Tidal Volume PEEP POC Sodium (135-144) mmol/L Sodium (136-145) mmol/L POC Potassium (3.3-5.0) mmol/L Potassium (3.5-5.1) mmol/L Chloride (98-107) mmol/L Carbon Dioxide (21-32) mmol/L Anion Gap (3-11) BUN (7-18) mg/dl Creatinine (0.6-1.2) mg/dl Est Cr Clr Drug Dosing ml/min Est GFR ( Amer) Est GFR (Non-Af Amer) BUN/Creatinine Ratio (10-20) Glucose (70-99) mg/dl POC Glucose 135 H 137 H (70-99) mg/dl POC Glucose (other) (70-99) mg/dl Calcium (8.5-10.1) mg/dl Phosphorus (2.5-4.9) mg/dl Magnesium (1.8-2.4) mg/dl Total Bilirubin (0.2-1) mg/dl Direct Bilirubin (0-0.2) mg/dl AST (15-37) U/L ALT (12-78) U/L Alkaline Phosphatase (45-117) U/L Ammonia (11-32) umol/L Total Protein (6.4-8.2) gm/dl Albumin (3.4-5.0) gm/dl Blood Type Antibody Screen Crossmatch 12/29/19 12/29/19 12/29/19 Range/Units 10:09 09:15 08:02 WBC (4.8-10.8) K/uL RBC (4.2-5.4) M/uL Hgb (12.0-16.0) g/dL POC Hgb Hct (37-47) % POC Hct (37-47) % MCV (80-100) fL MCH (25-34) pg MCHC (32-36) g/dL RDW Std Deviation (36.4-46.3) fL RDW Coeff of Ethel (11.5-14.5) % Plt Count (130-400) K/uL MPV (7.4-10.4) fL Immature Gran % (Auto) % Neut % (Auto) % Lymph % (Auto) % [place] % (Auto) % Eos % (Auto) % Baso % (Auto) % Immature Gran # (Auto) (0.00-0.02) K/uL Neut # (Auto) (1.4-6.5) K/uL Lymph # (Auto) (1.2-3.4) K/uL [place] # (Auto) (0.11-0.59) K/uL Eos # (Auto) (0-0.5) K/uL Baso # (Auto) (0-0.2) K/uL Echinocytes PT (9.0-12.0) Seconds INR (0.9-1.1) Fibrinogen (184-400) mg/dl Sample Site POC pH (7.35-7.45) POC pCO2 (35-46) mmHg POC pO2 (80-95) mmHg POC HCO3 (19-24) francisco/L POC Total CO2 (24-31) mmol/L POC Base Excess (-9-1.8) francisco/L ABG pH (Temp Correct) (7.35-7.45) ABG pCO2 (Temp Corrct (35-46) mmHg POC ABG pO2 at Pt Temp Archie Test VBG pH (7.36-7.41) O2 Delivery Device POC O2 Rate Minute Ventilation POC FiO2 % Tidal Volume PEEP POC Sodium (135-144) mmol/L Sodium (136-145) mmol/L POC Potassium (3.3-5.0) mmol/L Potassium (3.5-5.1) mmol/L Chloride (98-107) mmol/L Carbon Dioxide (21-32) mmol/L Anion Gap (3-11) BUN (7-18) mg/dl Creatinine (0.6-1.2) mg/dl Est Cr Clr Drug Dosing ml/min Est GFR ( Amer) Est GFR (Non-Af Amer) BUN/Creatinine Ratio (10-20) Glucose (70-99) mg/dl POC Glucose 183 H 183 H 227 H (70-99) mg/dl POC Glucose (other) (70-99) mg/dl Calcium (8.5-10.1) mg/dl Phosphorus (2.5-4.9) mg/dl Magnesium (1.8-2.4) mg/dl Total Bilirubin (0.2-1) mg/dl Direct Bilirubin (0-0.2) mg/dl AST (15-37) U/L ALT (12-78) U/L Alkaline Phosphatase (45-117) U/L Ammonia (11-32) umol/L Total Protein (6.4-8.2) gm/dl Albumin (3.4-5.0) gm/dl Blood Type Antibody Screen Crossmatch 12/29/19 12/29/19 12/29/19 Range/Units 06:33 05:34 04:21 WBC (4.8-10.8) K/uL RBC (4.2-5.4) M/uL Hgb (12.0-16.0) g/dL POC Hgb 5.4 L* Hct (37-47) % POC Hct 16 L* (37-47) % MCV (80-100) fL MCH (25-34) pg MCHC (32-36) g/dL RDW Std Deviation (36.4-46.3) fL RDW Coeff of Ethel (11.5-14.5) % Plt Count (130-400) K/uL MPV (7.4-10.4) fL Immature Gran % (Auto) % Neut % (Auto) % Lymph % (Auto) % [place] % (Auto) % Eos % (Auto) % Baso % (Auto) % Immature Gran # (Auto) (0.00-0.02) K/uL Neut # (Auto) (1.4-6.5) K/uL Lymph # (Auto) (1.2-3.4) K/uL [place] # (Auto) (0.11-0.59) K/uL Eos # (Auto) (0-0.5) K/uL Baso # (Auto) (0-0.2) K/uL Echinocytes PT (9.0-12.0) Seconds INR (0.9-1.1) Fibrinogen (184-400) mg/dl Sample Site Art Line POC pH 7.52 H* (7.35-7.45) POC pCO2 26 L (35-46) mmHg POC pO2 75 L (80-95) mmHg POC HCO3 21 (19-24) francisco/L POC Total CO2 22 L (24-31) mmol/L POC Base Excess -1.0 (-9-1.8) francisco/L ABG pH (Temp Correct) 7.507 H* (7.35-7.45) ABG pCO2 (Temp Corrct 27 L (35-46) mmHg POC ABG pO2 at Pt Temp 80 Archie Test NA VBG pH (7.36-7.41) O2 Delivery Device Ventilator POC O2 Rate 20 Minute Ventilation 8.0 POC FiO2 30 % Tidal Volume 400 PEEP 5 POC Sodium 142 (135-144) mmol/L Sodium (136-145) mmol/L POC Potassium 3.0 L (3.3-5.0) mmol/L Potassium (3.5-5.1) mmol/L Chloride (98-107) mmol/L Carbon Dioxide (21-32) mmol/L Anion Gap (3-11) BUN (7-18) mg/dl Creatinine (0.6-1.2) mg/dl Est Cr Clr Drug Dosing ml/min Est GFR ( Amer) Est GFR (Non-Af Amer) BUN/Creatinine Ratio (10-20) Glucose (70-99) mg/dl POC Glucose (70-99) mg/dl POC Glucose (other) 182 H (70-99) mg/dl Calcium (8.5-10.1) mg/dl Phosphorus (2.5-4.9) mg/dl Magnesium (1.8-2.4) mg/dl Total Bilirubin (0.2-1) mg/dl Direct Bilirubin (0-0.2) mg/dl AST (15-37) U/L ALT (12-78) U/L Alkaline Phosphatase (45-117) U/L Ammonia 21.0 (11-32) umol/L Total Protein (6.4-8.2) gm/dl Albumin (3.4-5.0) gm/dl Blood Type Antibody Screen Crossmatch 12/29/19 12/29/19 12/29/19 Range/Units 04:21 04:21 04:21 WBC 6.86 (4.8-10.8) K/uL RBC 2.33 L (4.2-5.4) M/uL Hgb 7.0 L (12.0-16.0) g/dL POC Hgb Hct 18.6 L* (37-47) % POC Hct (37-47) % MCV 79.8 L (80-100) fL MCH 30.0 (25-34) pg MCHC 37.6 H (32-36) g/dL RDW Std Deviation 45.9 (36.4-46.3) fL RDW Coeff of Ethel 15.8 H (11.5-14.5) % Plt Count 46 L (130-400) K/uL MPV 9.5 (7.4-10.4) fL Immature Gran % (Auto) 0.4 % Neut % (Auto) 78.8 % Lymph % (Auto) 13.8 % [place] % (Auto) 4.7 % Eos % (Auto) 2.2 % Baso % (Auto) 0.1 % Immature Gran # (Auto) 0.03 H (0.00-0.02) K/uL Neut # (Auto) 5.40 (1.4-6.5) K/uL Lymph # (Auto) 0.95 L (1.2-3.4) K/uL [place] # (Auto) 0.32 (0.11-0.59) K/uL Eos # (Auto) 0.15 (0-0.5) K/uL Baso # (Auto) 0.01 (0-0.2) K/uL Echinocytes 1+ PT 11.3 (9.0-12.0) Seconds INR 1.1 (0.9-1.1) Fibrinogen (184-400) mg/dl Sample Site POC pH (7.35-7.45) POC pCO2 (35-46) mmHg POC pO2 (80-95) mmHg POC HCO3 (19-24) franicsco/L POC Total CO2 (24-31) mmol/L POC Base Excess (-9-1.8) francisco/L ABG pH (Temp Correct) (7.35-7.45) ABG pCO2 (Temp Corrct (35-46) mmHg POC ABG pO2 at Pt Temp Archie Test VBG pH (7.36-7.41) O2 Delivery Device POC O2 Rate Minute Ventilation POC FiO2 % Tidal Volume PEEP POC Sodium (135-144) mmol/L Sodium 144 (136-145) mmol/L POC Potassium (3.3-5.0) mmol/L Potassium 2.9 L (3.5-5.1) mmol/L Chloride 114 H (98-107) mmol/L Carbon Dioxide 23 (21-32) mmol/L Anion Gap 7.0 (3-11) BUN 41 H (7-18) mg/dl Creatinine 1.19 (0.6-1.2) mg/dl Est Cr Clr Drug Dosing 48.6 ml/min Est GFR ( Amer) 59.9 Est GFR (Non-Af Amer) 51.7 BUN/Creatinine Ratio 34.7 H (10-20) Glucose 140 H (70-99) mg/dl POC Glucose (70-99) mg/dl POC Glucose (other) (70-99) mg/dl Calcium 7.5 L (8.5-10.1) mg/dl Phosphorus 4.0 D (2.5-4.9) mg/dl Magnesium 2.0 (1.8-2.4) mg/dl Total Bilirubin 0.7 D (0.2-1) mg/dl Direct Bilirubin 0.4 H (0-0.2) mg/dl AST 323 H (15-37) U/L ALT 178 H (12-78) U/L Alkaline Phosphatase 48 (45-117) U/L Ammonia (11-32) umol/L Total Protein 3.8 L (6.4-8.2) gm/dl Albumin 1.7 L (3.4-5.0) gm/dl Blood Type Antibody Screen Crossmatch 12/29/19 12/29/19 12/29/19 Range/Units 03:17 01:15 00:08 WBC (4.8-10.8) K/uL RBC (4.2-5.4) M/uL Hgb (12.0-16.0) g/dL POC Hgb Hct (37-47) % POC Hct (37-47) % MCV (80-100) fL MCH (25-34) pg MCHC (32-36) g/dL RDW Std Deviation (36.4-46.3) fL RDW Coeff of Ethel (11.5-14.5) % Plt Count (130-400) K/uL MPV (7.4-10.4) fL Immature Gran % (Auto) % Neut % (Auto) % Lymph % (Auto) % [place] % (Auto) % Eos % (Auto) % Baso % (Auto) % Immature Gran # (Auto) (0.00-0.02) K/uL Neut # (Auto) (1.4-6.5) K/uL Lymph # (Auto) (1.2-3.4) K/uL [place] # (Auto) (0.11-0.59) K/uL Eos # (Auto) (0-0.5) K/uL Baso # (Auto) (0-0.2) K/uL Echinocytes PT (9.0-12.0) Seconds INR (0.9-1.1) Fibrinogen (184-400) mg/dl Sample Site POC pH (7.35-7.45) POC pCO2 (35-46) mmHg POC pO2 (80-95) mmHg POC HCO3 (19-24) francisco/L POC Total CO2 (24-31) mmol/L POC Base Excess (-9-1.8) francisco/L ABG pH (Temp Correct) (7.35-7.45) ABG pCO2 (Temp Corrct (35-46) mmHg POC ABG pO2 at Pt Temp Archie Test VBG pH (7.36-7.41) O2 Delivery Device POC O2 Rate Minute Ventilation POC FiO2 % Tidal Volume PEEP POC Sodium (135-144) mmol/L Sodium (136-145) mmol/L POC Potassium (3.3-5.0) mmol/L Potassium (3.5-5.1) mmol/L Chloride (98-107) mmol/L Carbon Dioxide (21-32) mmol/L Anion Gap (3-11) BUN (7-18) mg/dl Creatinine (0.6-1.2) mg/dl Est Cr Clr Drug Dosing ml/min Est GFR ( Amer) Est GFR (Non-Af Amer) BUN/Creatinine Ratio (10-20) Glucose (70-99) mg/dl POC Glucose (70-99) mg/dl POC Glucose (other) 131 H 133 H 130 H (70-99) mg/dl Calcium (8.5-10.1) mg/dl Phosphorus (2.5-4.9) mg/dl Magnesium (1.8-2.4) mg/dl Total Bilirubin (0.2-1) mg/dl Direct Bilirubin (0-0.2) mg/dl AST (15-37) U/L ALT (12-78) U/L Alkaline Phosphatase (45-117) U/L Ammonia (11-32) umol/L Total Protein (6.4-8.2) gm/dl Albumin (3.4-5.0) gm/dl Blood Type Antibody Screen Crossmatch 12/28/19 12/28/19 12/28/19 Range/Units 22:59 21:58 21:02 WBC (4.8-10.8) K/uL RBC (4.2-5.4) M/uL Hgb (12.0-16.0) g/dL POC Hgb Hct (37-47) % POC Hct (37-47) % MCV (80-100) fL MCH (25-34) pg MCHC (32-36) g/dL RDW Std Deviation (36.4-46.3) fL RDW Coeff of Ethel (11.5-14.5) % Plt Count (130-400) K/uL MPV (7.4-10.4) fL Immature Gran % (Auto) % Neut % (Auto) % Lymph % (Auto) % [place] % (Auto) % Eos % (Auto) % Baso % (Auto) % Immature Gran # (Auto) (0.00-0.02) K/uL Neut # (Auto) (1.4-6.5) K/uL Lymph # (Auto) (1.2-3.4) K/uL [place] # (Auto) (0.11-0.59) K/uL Eos # (Auto) (0-0.5) K/uL Baso # (Auto) (0-0.2) K/uL Echinocytes PT (9.0-12.0) Seconds INR (0.9-1.1) Fibrinogen (184-400) mg/dl Sample Site POC pH (7.35-7.45) POC pCO2 (35-46) mmHg POC pO2 (80-95) mmHg POC HCO3 (19-24) francisco/L POC Total CO2 (24-31) mmol/L POC Base Excess (-9-1.8) francisco/L ABG pH (Temp Correct) (7.35-7.45) ABG pCO2 (Temp Corrct (35-46) mmHg POC ABG pO2 at Pt Temp Archie Test VBG pH (7.36-7.41) O2 Delivery Device POC O2 Rate Minute Ventilation POC FiO2 % Tidal Volume PEEP POC Sodium (135-144) mmol/L Sodium 144 (136-145) mmol/L POC Potassium (3.3-5.0) mmol/L Potassium 3.1 L (3.5-5.1) mmol/L Chloride 112 H (98-107) mmol/L Carbon Dioxide 25 (21-32) mmol/L Anion Gap 6.0 (3-11) BUN 45 H (7-18) mg/dl Creatinine 1.21 H (0.6-1.2) mg/dl Est Cr Clr Drug Dosing 47.8 ml/min Est GFR ( Amer) 58.7 Est GFR (Non-Af Amer) 50.7 BUN/Creatinine Ratio 37.0 H (10-20) Glucose 105 H (70-99) mg/dl POC Glucose (70-99) mg/dl POC Glucose (other) 114 H 105 H (70-99) mg/dl Calcium 7.9 L (8.5-10.1) mg/dl Phosphorus 1.8 L (2.5-4.9) mg/dl Magnesium 2.0 (1.8-2.4) mg/dl Total Bilirubin (0.2-1) mg/dl Direct Bilirubin (0-0.2) mg/dl AST (15-37) U/L ALT (12-78) U/L Alkaline Phosphatase (45-117) U/L Ammonia (11-32) umol/L Total Protein (6.4-8.2) gm/dl Albumin (3.4-5.0) gm/dl Blood Type Antibody Screen Crossmatch 12/28/19 12/28/19 12/28/19 Range/Units 21:02 20:24 19:18 WBC 6.22 (4.8-10.8) K/uL RBC 2.59 L (4.2-5.4) M/uL Hgb 7.5 L (12.0-16.0) g/dL POC Hgb Hct 20.5 L* (37-47) % POC Hct (37-47) % MCV 79.2 L (80-100) fL MCH 29.0 (25-34) pg MCHC 36.6 H (32-36) g/dL RDW Std Deviation 45.0 (36.4-46.3) fL RDW Coeff of Ethel 15.6 H (11.5-14.5) % Plt Count 50 L (130-400) K/uL MPV 10.0 (7.4-10.4) fL Immature Gran % (Auto) 0.3 % Neut % (Auto) 79.6 % Lymph % (Auto) 14.0 % [place] % (Auto) 4.0 % Eos % (Auto) 2.1 % Baso % (Auto) 0.0 % Immature Gran # (Auto) 0.02 (0.00-0.02) K/uL Neut # (Auto) 4.95 (1.4-6.5) K/uL Lymph # (Auto) 0.87 L (1.2-3.4) K/uL [place] # (Auto) 0.25 (0.11-0.59) K/uL Eos # (Auto) 0.13 (0-0.5) K/uL Baso # (Auto) 0.00 (0-0.2) K/uL Echinocytes PT (9.0-12.0) Seconds INR (0.9-1.1) Fibrinogen (184-400) mg/dl Sample Site POC pH (7.35-7.45) POC pCO2 (35-46) mmHg POC pO2 (80-95) mmHg POC HCO3 (19-24) francisco/L POC Total CO2 (24-31) mmol/L POC Base Excess (-9-1.8) francisco/L ABG pH (Temp Correct) (7.35-7.45) ABG pCO2 (Temp Corrct (35-46) mmHg POC ABG pO2 at Pt Temp Archie Test VBG pH (7.36-7.41) O2 Delivery Device POC O2 Rate Minute Ventilation POC FiO2 % Tidal Volume PEEP POC Sodium (135-144) mmol/L Sodium (136-145) mmol/L POC Potassium (3.3-5.0) mmol/L Potassium (3.5-5.1) mmol/L Chloride (98-107) mmol/L Carbon Dioxide (21-32) mmol/L Anion Gap (3-11) BUN (7-18) mg/dl Creatinine (0.6-1.2) mg/dl Est Cr Clr Drug Dosing ml/min Est GFR ( Amer) Est GFR (Non-Af Amer) BUN/Creatinine Ratio (10-20) Glucose (70-99) mg/dl POC Glucose (70-99) mg/dl POC Glucose (other) 97 97 (70-99) mg/dl Calcium (8.5-10.1) mg/dl Phosphorus (2.5-4.9) mg/dl Magnesium (1.8-2.4) mg/dl Total Bilirubin (0.2-1) mg/dl Direct Bilirubin (0-0.2) mg/dl AST (15-37) U/L ALT (12-78) U/L Alkaline Phosphatase (45-117) U/L Ammonia (11-32) umol/L Total Protein (6.4-8.2) gm/dl Albumin (3.4-5.0) gm/dl Blood Type Antibody Screen Crossmatch 12/28/19 12/28/19 12/28/19 Range/Units 18:04 16:50 15:11 WBC (4.8-10.8) K/uL RBC (4.2-5.4) M/uL Hgb (12.0-16.0) g/dL POC Hgb Hct (37-47) % POC Hct (37-47) % MCV (80-100) fL MCH (25-34) pg MCHC (32-36) g/dL RDW Std Deviation (36.4-46.3) fL RDW Coeff of Ethel (11.5-14.5) % Plt Count (130-400) K/uL MPV (7.4-10.4) fL Immature Gran % (Auto) % Neut % (Auto) % Lymph % (Auto) % [place] % (Auto) % Eos % (Auto) % Baso % (Auto) % Immature Gran # (Auto) (0.00-0.02) K/uL Neut # (Auto) (1.4-6.5) K/uL Lymph # (Auto) (1.2-3.4) K/uL [place] # (Auto) (0.11-0.59) K/uL Eos # (Auto) (0-0.5) K/uL Baso # (Auto) (0-0.2) K/uL Echinocytes PT (9.0-12.0) Seconds INR (0.9-1.1) Fibrinogen (184-400) mg/dl Sample Site POC pH (7.35-7.45) POC pCO2 (35-46) mmHg POC pO2 (80-95) mmHg POC HCO3 (19-24) francisco/L POC Total CO2 (24-31) mmol/L POC Base Excess (-9-1.8) francisco/L ABG pH (Temp Correct) (7.35-7.45) ABG pCO2 (Temp Corrct (35-46) mmHg POC ABG pO2 at Pt Temp Archie Test VBG pH (7.36-7.41) O2 Delivery Device POC O2 Rate Minute Ventilation POC FiO2 % Tidal Volume PEEP POC Sodium (135-144) mmol/L Sodium (136-145) mmol/L POC Potassium (3.3-5.0) mmol/L Potassium (3.5-5.1) mmol/L Chloride (98-107) mmol/L Carbon Dioxide (21-32) mmol/L Anion Gap (3-11) BUN (7-18) mg/dl Creatinine (0.6-1.2) mg/dl Est Cr Clr Drug Dosing ml/min Est GFR ( Amer) Est GFR (Non-Af Amer) BUN/Creatinine Ratio (10-20) Glucose (70-99) mg/dl POC Glucose 126 H (70-99) mg/dl POC Glucose (other) 99 106 H (70-99) mg/dl Calcium (8.5-10.1) mg/dl Phosphorus (2.5-4.9) mg/dl Magnesium (1.8-2.4) mg/dl Total Bilirubin (0.2-1) mg/dl Direct Bilirubin (0-0.2) mg/dl AST (15-37) U/L ALT (12-78) U/L Alkaline Phosphatase (45-117) U/L Ammonia (11-32) umol/L Total Protein (6.4-8.2) gm/dl Albumin (3.4-5.0) gm/dl Blood Type Antibody Screen Crossmatch 12/28/19 12/28/19 12/28/19 Range/Units 14:02 13:19 13:19 WBC (4.8-10.8) K/uL RBC (4.2-5.4) M/uL Hgb (12.0-16.0) g/dL POC Hgb Hct (37-47) % POC Hct (37-47) % MCV (80-100) fL MCH (25-34) pg MCHC (32-36) g/dL RDW Std Deviation (36.4-46.3) fL RDW Coeff of Ethel (11.5-14.5) % Plt Count (130-400) K/uL MPV (7.4-10.4) fL Immature Gran % (Auto) % Neut % (Auto) % Lymph % (Auto) % [place] % (Auto) % Eos % (Auto) % Baso % (Auto) % Immature Gran # (Auto) (0.00-0.02) K/uL Neut # (Auto) (1.4-6.5) K/uL Lymph # (Auto) (1.2-3.4) K/uL [place] # (Auto) (0.11-0.59) K/uL Eos # (Auto) (0-0.5) K/uL Baso # (Auto) (0-0.2) K/uL Echinocytes PT (9.0-12.0) Seconds INR (0.9-1.1) Fibrinogen (184-400) mg/dl Sample Site POC pH (7.35-7.45) POC pCO2 (35-46) mmHg POC pO2 (80-95) mmHg POC HCO3 (19-24) francisco/L POC Total CO2 (24-31) mmol/L POC Base Excess (-9-1.8) francisco/L ABG pH (Temp Correct) (7.35-7.45) ABG pCO2 (Temp Corrct (35-46) mmHg POC ABG pO2 at Pt Temp Archie Test VBG pH 7.60 H (7.36-7.41) O2 Delivery Device POC O2 Rate Minute Ventilation POC FiO2 % [place] Volume PEEP POC Sodium (135-144) mmol/L Sodium 142 (136-145) mmol/L POC Potassium (3.3-5.0) mmol/L Potassium 3.2 L (3.5-5.1) mmol/L Chloride 110 H (98-107) mmol/L Carbon Dioxide 27 (21-32) mmol/L Anion Gap 5.0 (3-11) BUN 53 H (7-18) mg/dl Creatinine 1.24 H (0.6-1.2) mg/dl Est Cr Clr Drug Dosing 46.7 ml/min Est GFR ( Amer) 57.0 Est GFR (Non-Af Amer) 49.2 BUN/Creatinine Ratio 42.6 H (10-20) Glucose 125 H (70-99) mg/dl POC Glucose 127 H (70-99) mg/dl POC Glucose (other) (70-99) mg/dl Calcium 8.5 (8.5-10.1) mg/dl Phosphorus 1.2 L* (2.5-4.9) mg/dl Magnesium 2.5 H (1.8-2.4) mg/dl Total Bilirubin (0.2-1) mg/dl Direct Bilirubin (0-0.2) mg/dl AST (15-37) U/L ALT (12-78) U/L Alkaline Phosphatase (45-117) U/L Ammonia (11-32) umol/L Total Protein (6.4-8.2) gm/dl Albumin (3.4-5.0) gm/dl Blood Type Antibody Screen Crossmatch 12/28/19 12/28/19 12/28/19 Range/Units 12:58 12:01 10:56 WBC (4.8-10.8) K/uL RBC (4.2-5.4) M/uL Hgb (12.0-16.0) g/dL POC Hgb Hct (37-47) % POC Hct (37-47) % MCV (80-100) fL MCH (25-34) pg MCHC (32-36) g/dL RDW Std Deviation (36.4-46.3) fL RDW Coeff of Ethel (11.5-14.5) % Plt Count (130-400) K/uL MPV (7.4-10.4) fL Immature Gran % (Auto) % Neut % (Auto) % Lymph % (Auto) % [place] % (Auto) % Eos % (Auto) % Baso % (Auto) % Immature Gran # (Auto) (0.00-0.02) K/uL Neut # (Auto) (1.4-6.5) K/uL Lymph # (Auto) (1.2-3.4) K/uL [place] # (Auto) (0.11-0.59) K/uL Eos # (Auto) (0-0.5) K/uL Baso # (Auto) (0-0.2) K/uL Echinocytes PT (9.0-12.0) Seconds INR (0.9-1.1) Fibrinogen (184-400) mg/dl Sample Site POC pH (7.35-7.45) POC pCO2 (35-46) mmHg POC pO2 (80-95) mmHg POC HCO3 (19-24) francisco/L POC Total CO2 (24-31) mmol/L POC Base Excess (-9-1.8) francisco/L ABG pH (Temp Correct) (7.35-7.45) ABG pCO2 (Temp Corrct (35-46) mmHg POC ABG pO2 at Pt Temp [place] Test VBG pH (7.36-7.41) O2 Delivery Device POC O2 Rate Minute Ventilation POC FiO2 % [place] Volume PEEP POC Sodium (135-144) mmol/L Sodium (136-145) mmol/L POC Potassium (3.3-5.0) mmol/L Potassium (3.5-5.1) mmol/L Chloride (98-107) mmol/L Carbon Dioxide (21-32) mmol/L Anion Gap (3-11) BUN (7-18) mg/dl Creatinine (0.6-1.2) mg/dl Est Cr Clr Drug Dosing ml/min Est GFR ( Amer) Est GFR (Non-Af Amer) BUN/Creatinine Ratio (10-20) Glucose (70-99) mg/dl POC Glucose 134 H (70-99) mg/dl POC Glucose (other) 117 H 139 H (70-99) mg/dl Calcium (8.5-10.1) mg/dl Phosphorus (2.5-4.9) mg/dl Magnesium (1.8-2.4) mg/dl Total Bilirubin (0.2-1) mg/dl Direct Bilirubin (0-0.2) mg/dl AST (15-37) U/L ALT (12-78) U/L Alkaline Phosphatase (45-117) U/L Ammonia (11-32) umol/L Total Protein (6.4-8.2) gm/dl Albumin (3.4-5.0) gm/dl Blood Type Antibody Screen Crossmatch 12/28/19 12/28/19 12/28/19 Range/Units 09:59 09:01 02:26 WBC (4.8-10.8) K/uL RBC (4.2-5.4) M/uL Hgb (12.0-16.0) g/dL POC Hgb TNP Hct (37-47) % POC Hct < 15 L* (37-47) % MCV (80-100) fL MCH (25-34) pg MCHC (32-36) g/dL RDW Std Deviation (36.4-46.3) fL RDW Coeff of Ethel (11.5-14.5) % Plt Count (130-400) K/uL MPV (7.4-10.4) fL Immature Gran % (Auto) % Neut % (Auto) % Lymph % (Auto) % [place] % (Auto) % Eos % (Auto) % Baso % (Auto) % Immature Gran # (Auto) (0.00-0.02) K/uL Neut # (Auto) (1.4-6.5) K/uL Lymph # (Auto) (1.2-3.4) K/uL [place] # (Auto) (0.11-0.59) K/uL Eos # (Auto) (0-0.5) K/uL Baso # (Auto) (0-0.2) K/uL Echinocytes PT (9.0-12.0) Seconds INR (0.9-1.1) Fibrinogen (184-400) mg/dl Sample Site Art Line POC pH 7.32 L (7.35-7.45) POC pCO2 32 L (35-46) mmHg POC pO2 267 H (80-95) mmHg POC HCO3 17 L (19-24) francisco/L POC Total CO2 17 L (24-31) mmol/L POC Base Excess -10.0 L (-9-1.8) francisco/L ABG pH (Temp Correct) 7.323 L (7.35-7.45) ABG pCO2 (Temp Corrct 32 L (35-46) mmHg POC ABG pO2 at Pt Temp 266 Archie Test NA VBG pH (7.36-7.41) O2 Delivery Device Ventilator POC O2 Rate 20 Minute Ventilation 8.0 POC FiO2 60 % [place] Volume 400 PEEP 5 POC Sodium 139 (135-144) mmol/L Sodium (136-145) mmol/L POC Potassium 3.4 (3.3-5.0) mmol/L Potassium (3.5-5.1) mmol/L Chloride (98-107) mmol/L Carbon Dioxide (21-32) mmol/L Anion Gap (3-11) BUN (7-18) mg/dl Creatinine (0.6-1.2) mg/dl Est Cr Clr Drug Dosing ml/min Est GFR ( Amer) Est GFR (Non-Af Amer) BUN/Creatinine Ratio (10-20) Glucose (70-99) mg/dl POC Glucose (70-99) mg/dl POC Glucose (other) 183 H 246 H (70-99) mg/dl Calcium (8.5-10.1) mg/dl Phosphorus (2.5-4.9) mg/dl Magnesium (1.8-2.4) mg/dl Total Bilirubin (0.2-1) mg/dl Direct Bilirubin (0-0.2) mg/dl AST (15-37) U/L ALT (12-78) U/L Alkaline Phosphatase (45-117) U/L Ammonia (11-32) umol/L Total Protein (6.4-8.2) gm/dl Albumin (3.4-5.0) gm/dl Blood Type Antibody Screen Crossmatch 12/28/19 12/28/19 Range/Units 01:45 00:50 WBC (4.8-10.8) K/uL RBC (4.2-5.4) M/uL Hgb (12.0-16.0) g/dL POC Hgb TNP Hct (37-47) % POC Hct < 15 L* (37-47) % MCV (80-100) fL MCH (25-34) pg MCHC (32-36) g/dL RDW Std Deviation (36.4-46.3) fL RDW Coeff of Ethel (11.5-14.5) % Plt Count (130-400) K/uL MPV (7.4-10.4) fL Immature Gran % (Auto) % Neut % (Auto) % Lymph % (Auto) % [place] % (Auto) % Eos % (Auto) % Baso % (Auto) % Immature Gran # (Auto) (0.00-0.02) K/uL Neut # (Auto) (1.4-6.5) K/uL Lymph # (Auto) (1.2-3.4) K/uL [place] # (Auto) (0.11-0.59) K/uL Eos # (Auto) (0-0.5) K/uL Baso # (Auto) (0-0.2) K/uL Echinocytes PT (9.0-12.0) Seconds INR (0.9-1.1) Fibrinogen (184-400) mg/dl Sample Site Art Line POC pH 7.34 L (7.35-7.45) POC pCO2 15 L (35-46) mmHg POC pO2 150 H (80-95) mmHg POC HCO3 8 L (19-24) francisco/L POC Total CO2 9 L* (24-31) mmol/L POC Base Excess -18.0 L (-9-1.8) franc[place]/L ABG pH (Temp Correct) 7.339 L (7.35-7.45) ABG pCO2 (Temp Corrct 15 L (35-46) mmHg POC ABG pO2 at Pt Temp 150 Archie Test NA VBG pH (7.36-7.41) O2 Delivery Device SimpleMask POC O2 Rate Minute Ventilation POC FiO2 % Tidal Volume PEEP POC Sodium 133 L (135-144) mmol/L Sodium (136-145) mmol/L POC Potassium 5.2 H (3.3-5.0) mmol/L Potassium (3.5-5.1) mmol/L Chloride (98-107) mmol/L Carbon Dioxide (21-32) mmol/L Anion Gap (3-11) BUN (7-18) mg/dl Creatinine (0.6-1.2) mg/dl Est Cr Clr Drug Dosing ml/min Est GFR ( Amer) Est GFR (Non-Af Amer) BUN/Creatinine Ratio (10-20) Glucose (70-99) mg/dl POC Glucose (70-99) mg/dl POC Glucose (other) (70-99) mg/dl Calcium (8.5-10.1) mg/dl Phosphorus (2.5-4.9) mg/dl Magnesium (1.8-2.4) mg/dl Total Bilirubin (0.2-1) mg/dl Direct Bilirubin (0-0.2) mg/dl AST (15-37) U/L ALT (12-78) U/L Alkaline Phosphatase (45-117) U/L Ammonia (11-32) umol/L Total Protein (6.4-8.2) gm/dl Albumin (3.4-5.0) gm/dl Blood Type B Negative Antibody Screen NEGATIVE Crossmatch See Detail (1) Alcohol dependence Complication of substance-induced condition: uncomplicated (2) Caustic esophageal injury Encounter type: initial encounter Qualified Code(s): T28.6XXA - Corrosion of esophagus, initial encounter
--- NOTE | 2019-12-29 16:48 | Hospitalist Progress Note ---
Date of Service December 29, 2019 Assessment & Plan (1) Hemorrhagic shock: Improving slowly. 2nd to severe caustic esophageal injury. s/p 5 units PRBCs. s/p FFP & platelets. PPI drip in place. Now off pressors. With fevers cannot rule out that she had had a component of septic shock but less likely. Cortisol wnl. (2) Acute respiratory failure with hypoxia: Suspect 2nd to aspiration event (coffee-ground emesis). However, patient had cough in ER yesterday during my assessment. Was she developing a respiratory illness even prior to aspiration event? Remains on IV zosyn. Blood cx's negative to date. hospital day #2 of intubation/mech ventilation. (3) Aspiration pneumonia: suspected/likely. day #[address] chest with ground glass opacities. Cont mech ventilation & supportive care. (4) Acute blood loss anemia: 2nd to upper GI bleeding from esophageal caustic injury (see EGD report). s/p 5 units PRBCs. serial CBCs. PPI drip and supportive care. (5) Caustic esophageal injury: 2nd to ingestion (bleach? other?)? 2nd to alcohol abuse? high risk of perforation - no enteric tube. PPI drip. appreciate GI assistance. blood product supportive care. (6) DKA (diabetic ketoacidoses): severe DKA at presentation. resolved with insulin infusion and ongoing supportive care. defer management to critical care team & pharmacy glycemic team. 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 (7) Acute kidney injury: 2nd to massive volume depletion in setting of DKA. resolving. BMP in am. (8) Hyponatremia: resolved was 2nd to massive volume depletion at presentation (9) Metabolic encephalopathy: 2nd to DKA. Cannot rule out other toxins that contributed to hospital presentation (medications, illicit drugs, etc). Cannot rule out component of hepatic encephalopathy as ammonia levels had been high. Now on sedation for vent. (10) Hypokalemia: ongoing. ICU replacement protocol. (11) Metabolic acidosis: 2nd to DKA and shock. Resolved. (12) History of left below knee amputation: 2nd to foot infection several years ago (13) Depression with anxiety: HOLDING po meds from home due to lack of enteric tube (14) Exocrine pancreatic insufficiency: once taking a diet off the vent resume pancrease (15) Liver cirrhosis, alcoholic: (16) Psoriasis: on biological agent chronically for such, per med list this places her even more immunocompromised above and beyond her chronic alcohol use, T1DM, etc. (17) Alcohol dependence: per mother no alcohol in 1-2 months? on sedation for vent which will treat any underlying withdrawal, if present. thiamine 200mg IV BID. folic acid daily. (18) Tobacco dependence: nicoderm patch - resume once out of ICU (19) DVT prophylaxis: chemical means contraindicated due to GI bleed SCD on right leg appreciate critical care assistance updated mother extensively by phone - 12/29/2019 Admission and Anticipated Discharge Date Admission Date: December 27, 2019 Subjective events of last 24 hours noted continues to require PRBCs and other blood products [facility]w Dr Tobias Review of Systems Review of Systems: Unobtainable due to endotracheal tube Physical Exam Constitutional: + ill appearing, + thin and + frail appearing; + not well developed and + not well nourished ENMT: ETT in place; dried blood on lips Respiratory: no respiratory distress Auscultation: + diminished lung sounds (b/l bases, otherwise CTA b/l ) Cardiovascular: Rate/Rhythm: regular rate and + tachycardic Heart Sounds: normal S1, normal S2 and + murmur (3/6 LLSB ) Vessels: no JVD Extremities: + vascular access device (right IJ - clean ); no edema (right leg ) Gastrointestinal (Abdomen): Inspection/Auscultation: + abdomen distended (mild) Percussion/Palpation: + abdomen tender (epigastric region ); no hepatosplenomegaly Musculoskeletal: restraints in place - b/l arms Skin: + pallor Results & Data Results & Data ([facility]) Vital Signs (Past 12 Hours) Vital Signs Temp Pulse Resp BP Pulse Ox 12/29/19 16:01 90 15 97 12/29/19 15:00 37.5 C 89 16 105/70 98 12/29/19 14:47 91 H 121/80 100 12/29/19 14:06 37.2 C 95 H 16 105/72 98 12/29/19 13:47 96 H 109/70 98 12/29/19 13:10 96 H 15 98 12/29/19 13:06 37.4 C 97 H 16 108/67 97 12/29/19 13:02 96 H 108/67 98 12/29/19 12:36 37.4 C 98 H 16 110/70 98 12/29/19 12:32 96 H 120/72 97 12/29/19 12:21 37.5 C 100 H 16 121/78 99 12/29/19 12:17 101 H 121/78 98 12/29/19 12:03 37.5 C 98 H 16 125/80 99 12/29/19 12:02 101 H 125/80 99 12/29/19 11:47 98 H 127/82 99 12/29/19 11:40 37.4 C 97 H 16 127/82 99 12/29/19 11:32 99 H 127/82 99 12/29/19 11:20 37.5 C 99 H 18 128/82 99 12/29/19 11:17 99 H 128/82 99 12/29/19 11:15 97 H 18 98 12/29/19 11:02 101 H 129/82 99 12/29/19 10:50 37.7 C H 100 H 16 119/76 98 12/29/19 10:47 100 H 119/76 98 12/29/19 10:35 37.9 C H 103 H 17 121/80 98 12/29/19 10:32 103 H 121/80 98 12/29/19 10:17 37.9 C H 102 H 23 113/78 98 12/29/19 10:02 101 H 97/73 L 99 12/29/19 09:47 100 H 119/75 99 12/29/19 09:32 102 H 123/76 98 12/29/19 09:17 105 H 105/67 98 12/29/19 09:02 110 H 104/69 97 12/29/19 09:00 38.1 C H 109 H 20 111/70 97 12/29/19 08:50 109 H 111/70 97 12/29/19 08:40 15 12/29/19 08:00 100 H 12/29/19 07:50 110 H 114/70 98 12/29/19 07:30 108 H 99 12/29/19 07:15 113 H 98 12/29/19 07:06 105 H 22 99 12/29/19 07:00 109 H 99 12/29/19 06:50 112 H 98/59 L 100 03/25/20 06:45 111 H 98 12/29/19 06:40 38.0 C H 112 H 19 97/53 L 98 12/29/19 06:34 38.0 C H 111 H 22 102/63 97 12/29/19 06:30 113 H 99 12/29/19 06:16 113 H 98 12/29/19 06:00 112 H 98 12/29/19 05:50 105 H 102/63 98 12/29/19 05:45 113 H 97 12/29/19 05:40 113 H 20 98 12/29/19 05:30 113 H 97 12/29/19 05:00 112 H 19 97 PG Care Time/CCT Total # of Minutes Spent Total Time Spent with Patient: Total time spent is greater than 50% in coordination of care (as documented) at patient's floor/unit and/or counseling patient: Coding Level of Care Code 31577 Subseq Hosp Care Lvl 1 Diagnoses Hemorrhagic shock R57.8 Acute respiratory failure with hypoxia J96.01 Aspiration pneumonia J69.0 Aspiration pneumonia type: due to vomit Laterality: bilateral Lung location: unspecified part of lung Acute blood loss anemia D62 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 Encounter type: initial encounter DKA (diabetic ketoacidoses) E10.11 Diabetes mellitus type: type 1 Diabetes mellitus complication detail: with coma Acute kidney injury N17.9 Hyponatremia E87.1 Metabolic encephalopathy G93.41 Hypokalemia E87.6 Metabolic acidosis E87.2 History of left below knee amputation Z89.512 Depression with anxiety F41.8 Exocrine pancreatic insufficiency K86.81 Liver cirrhosis, alcoholic K70.30 Ascites presence: without ascites Psoriasis L40.9 Alcohol dependence F10.20 Complication of substance-induced condition: uncomplicated Tobacco dependence F17.200 DVT prophylaxis Z29.9 (1) Caustic esophageal injury Encounter type: initial encounter Qualified Code(s): T28.6XXA - Corrosion of esophagus, initial encounter (2) DKA (diabetic ketoacidoses) Diabetes mellitus type: type 1 Diabetes mellitus complication detail: with coma Qualified Code(s): E10.11 - Type 1 diabetes mellitus with ketoacidosis with coma (3) Liver cirrhosis, alcoholic Ascites presence: without ascites Qualified Code(s): K70.30 - Alcoholic cirrhosis of liver without ascites (4) Alcohol dependence Complication of substance-induced condition: uncomplicated (5) Aspiration pneumonia Aspiration pneumonia type: due to vomit Laterality: bilateral Lung location: unspecified part of lung Qualified Code(s): J69.0 - Pneumonitis due to inhalation of food and vomit
[2019-12-29 17:15] LABS: Hematocrit (blood only) 26.1 % (37-47); Hemoglobin 9.2 g/dL (12.0-16.0); Mean Corpuscular Hemoglobin 28.8 pg (25-34); Mean Corpuscular Hgb Conc 35.2 g/dL (32-36); Mean Corpuscular Volume 81.8 fL (80-100); RDW Coefficient of Variation 15.9 % (11.5-14.5); RDW Standard Deviation 47.4 fL (36.4-46.3); Red Blood Count 3.19 M/uL (4.2-5.4); White Blood Count 5.36 K/uL (4.8-10.8)
[2019-12-29 17:16] LABS: Mean Platelet Volume 9.8 fL (7.4-10.4); Platelet Count 45 K/uL (130-400)
[2019-12-29 17:34] LABS: BUN Creatinine Ratio 28.6 (10-20); Calcium 8.4 mg/dl (8.5-10.1); Creatinine Clr Calc Pharmacy 58.2 ml/min; Est GFR (African American) 67.4; Est GFR (Non-African American) 58.2; Potassium 3.2 mmol/L (3.5-5.1)
[2019-12-29] MEDS: FOLIC ACID 1 MG in SYRINGE 9.8 ML IV SCH (19:22)
[2019-12-29] MEDS: INSULIN REGULAR 250 UNITS in SODIUM CHLORIDE 0.9% 247.5 ML IV SCH (20:07)
[2019-12-29 22:55] LABS: Hematocrit (blood only) 25.2 % (37-47); Mean Corpuscular Hgb Conc 35.7 g/dL (32-36); Mean Corpuscular Volume 81.3 fL (80-100); RDW Coefficient of Variation 16.2 % (11.5-14.5); RDW Standard Deviation 47.2 fL (36.4-46.3)
[2019-12-29 22:59] LABS: Mean Platelet Volume 10.5 fL (7.4-10.4); Platelet Count 47 K/uL (130-400)
[2019-12-29 23:14] LABS: Basophils # (auto) 0.01 K/uL (0-0.2); Basophils % (auto) 0.2 %; Dohle Bodies 1+; Echinocytes 1+; Eosinophils % (auto) 3.6 %; Immature Granulocytes # (auto) 0.02 K/uL (0.00-0.02); Immature Granulocytes % (auto) 0.4 %; Lymphocytes # (auto) 0.94 K/uL (1.2-3.4); Lymphocytes % (auto) 17.1 %; Monocytes # (auto) 0.21 K/uL (0.11-0.59); Monocytes % (auto) 3.8 %; Neutrophils # (auto) 4.12 K/uL (1.4-6.5); Neutrophils % (auto) 74.9 %
[2019-12-29 23:27] LABS: BUN Creatinine Ratio 26.6 (10-20); Calcium 8.6 mg/dl (8.5-10.1); Creatinine Clr Calc Pharmacy 60.5 ml/min; Est GFR (African American) 70.5; Est GFR (Non-African American) 60.9
[2019-12-30] MEDS ORDERED: FUROSEMIDE 20 MG in SYRINGE 0 ML IV ONE (00:15)
[2019-12-30] MEDS ORDERED: ALBUMIN 25% 50 ML IV ONE (00:15)
[2019-12-30] MEDS ORDERED: FUROSEMIDE 40 MG/4 ML VIAL IV ONE (00:30)
[2019-12-30] MEDS: PANTOprazole 40 MG in DEXTROSE 5% 100 ML IV SCH ×4 (02:59→18:51)
[2019-12-30] MEDS: propofoL 1,000 MG/100 ML VIAL IV SCH ×2 (03:17→21:47)
[2019-12-30] MEDS: PIPERACILLIN/TAZOBACTAM 4.5 GM in DEXTROSE 5% 100 ML IV SCH ×3 (04:10→19:55)
[2019-12-30 04:14] LABS: Hematocrit (blood only) 27.7 % (37-47); Hemoglobin 9.8 g/dL (12.0-16.0); Mean Corpuscular Hemoglobin 28.7 pg (25-34); Mean Corpuscular Hgb Conc 35.4 g/dL (32-36); RDW Coefficient of Variation 16.2 % (11.5-14.5); RDW Standard Deviation 47.4 fL (36.4-46.3); Red Blood Count 3.42 M/uL (4.2-5.4); White Blood Count 7.02 K/uL (4.8-10.8)
[2019-12-30 04:20] LABS: Mean Platelet Volume 10.7 fL (7.4-10.4); Platelet Count 56 K/uL (130-400)
[2019-12-30 04:33] LABS: BUN Creatinine Ratio 23.9 (10-20); Calcium 8.7 mg/dl (8.5-10.1); Creatinine Clr Calc Pharmacy 55.7 ml/min; Est GFR (African American) 63.8; Est GFR (Non-African American) 55.1; Magnesium 1.8 mg/dl (1.8-2.4); Phosphorus 3.9 mg/dl (2.5-4.9); Potassium 3.4 mmol/L (3.5-5.1)
[2019-12-30 04:41] LABS: Basophils # (auto) 0.01 K/uL (0-0.2); Basophils % (auto) 0.1 %; Echinocytes 1+; Eosinophils # (auto) 0.19 K/uL (0-0.5); Eosinophils % (auto) 2.7 %; Immature Granulocytes # (auto) 0.05 K/uL (0.00-0.02); Immature Granulocytes % (auto) 0.7 %; Lymphocytes # (auto) 0.89 K/uL (1.2-3.4); Lymphocytes % (auto) 12.7 %; Monocytes # (auto) 0.28 K/uL (0.11-0.59); Neutrophils % (auto) 79.8 %
[2019-12-30] MEDS: fentaNYL citrate 100 MCG/2 ML VIAL IV PRN (05:11)
[2019-12-30] MEDS ORDERED: MAGNESIUM SULFATE / D5W 1 GM/100 ML BAG IV ONE (05:31)
[2019-12-30] MEDS: POTASSIUM CHLORIDE / WTR 20 MEQ/100 ML PLCT IV SCH ×4 (06:04→11:34)
[2019-12-30 06:11] LABS: iSTAT Allen Test Pass; iSTAT Art Bld Gas pCO2 Correct 27 mmHg (35-46); iSTAT Art Bld Gas pH Corrected 7.539 (7.35-7.45); iSTAT Arterial Blood Gas HCO3 23 meg/L (19-24); iSTAT Arterial Blood Gas pCO2 26 mmHg (35-46); iSTAT Arterial Blood Gas pH 7.55 (7.35-7.45); iSTAT Arterial Blood Gas pO2 56 mmHg (80-95); iSTAT Arterial Blood Gas pO2 C 59; iSTAT Carbon Dioxide 24 mmol/L (24-31); iSTAT FiO2 30 %; iSTAT Hematocrit 24 % (37-47); iSTAT Hemoglobin 8.2 g/dl (12.0-16.0); iSTAT Potassium 2.9 mmol/L (3.3-5.0); iSTAT Site L Radial; iSTAT Sodium 141 mmol/L (135-144)
--- NOTE | 2019-12-30 07:43 | XRay Report ---
XR chest 1V portable CLINICAL HISTORY: 54 years-old Female presenting with f/u. TECHNIQUE: Portable upright AP view of the chest was obtained. COMPARISON: 12/29/2019. FINDINGS: Right internal jugular central venous catheter terminates at the lower SVC. Endotracheal tube termina nguyen in the midthoracic trachea over 4 cm from the anastacia. Several external leads project over the tho rax to grating evaluation. Cardiomediastinal silhouette normal. Minimal left basilar opacity. Several prominent skin folds project over the left lower lung. No large pleural effusion or pneumothorax. Os seous structures normal. Upper abdomen normal. IMPRESSION: 1. Lines and tubes appropriately positioned. 2. Residual left basilar infiltrate. Attention on follow-up. ACT 112: Negative or not required by law. Electronically signed by: Riki Escobedo M.D. 12/30/2019 7:42 AM
[2019-12-30] MEDS: INSULIN ASPART 100 UNITS/ML 3 ML PEN SC SCH ×4 (07:46→21:42)
[2019-12-30] MEDS: THIAMINE HCL 200 MG in SODIUM CHLORIDE 0.9% 50 ML IV SCH ×2 (08:58→20:16)
--- NOTE | 2019-12-30 10:32 | Critical Care Progress Note ---
Date of Service December 30, 2019 Assessment & Plan (1) Metabolic acidosis: Impression: 54-year-old female with history of diabetes and alcohol abuse admitted with diabetic ketoacidosis, acute renal failure, and severe hypokalemia. 24-hour events: SBT this morning was reassuring. The patient was awake and following commands. She was extubated and is down to nasal cannula. She did receive packed cells and platelets yesterday. Hemoglobin remained stable with no evidence of ongoing bleeding. Recommendations: 1. Severe DKA: Now resolved. Will initiate Lantus and sliding scale insulin. Will need to adjust as the patient increase his oral intake. See below 2. Profound hypokalemia: Replacement protocol initiated. 3. Metabolic acidosis: Lactate resolved. 4. Acute kidney injury: Consistent with prerenal state as it is correcting with volume resuscitation. Discontinue Campos catheter. 5. GI bleed: Discussed with GI. Findings may represent "black esophagus". Apparently this can be seen in patients with severe DKA and acidosis. Represents mucosal ischemia. Her hemoglobin is been stable. Okay to initiate clear liquid diet per GI. If she does well over the next 2 to 3 days, may consider advancing diet to full liquids. Will get swallow study today. If she does okay we will add Carafate to her regiment and change IV PPI to oral PPI this evening. Okay to get out of bed to chair. PT and OT consults requested. Speech therapy evaluation also requested 6. History of alcohol abuse: Continue thiamine and folate. Will need to observe for signs and symptoms of alcohol withdrawal. 7. Acute hypoxemic respiratory failure: Possible pneumonia. Continue Zosyn for now 8. Hypovolemic shock due to acute blood loss: Now resolved. 9. Questionable aspiration pneumonia: Should be covered by Zosyn for now. Follow radiograph If the patient does well, she can likely transfer to the floor later today or tomorrow. Discussed with ICU nurse and on critical care rounds. (2) Acute hyperglycemia: (3) Altered mental status: (4) Renal insufficiency: Subjective Patient now awake alert and conversant. She was extubated this morning after SBT. She admits to drinking alcohol but no other caustic ingestions. She denies any chest pain. No difficulty swallowing or odynophagia. She actually is asking to eat now. She is been hemodynamically stable and is now off all pressor agents. She is coughing slightly. Review of Systems Review of Systems: Negative except as noted in HPI Physical Exam Constitutional: well developed and + thin; no acute distress Neck: trachea midline, no thyromegaly Respiratory: normal respiratory effort, lungs clear to auscultation Cardiovascular: RRR, no murmur, no edema Gastrointestinal (Abdomen): normal bowel sounds, soft, nontender, no hepatosplenomegaly Skin: no rashes, warm and dry Lymphatic: no cervical lymphadenopathy Results & Data ([facility]) Vital Signs (Past 12 Hours) Vital Signs Pulse Resp BP Pulse Ox 12/30/19 09:21 97 H 99/58 L 95 12/30/19 08:22 109 H 101/74 97 12/30/19 07:20 94 H 106/66 95 12/30/19 07:14 110 H 19 98 12/30/19 07:00 98 H 12/30/19 06:21 99 H 105/59 L 96 12/30/19 05:35 91 H 14 98 12/30/19 05:20 100 H 114/69 90 12/30/19 04:20 94 H 115/72 99 12/30/19 03:20 101 H 103/65 95 12/30/19 03:14 98 H 106/69 99 12/30/19 02:20 89 109/75 99 12/30/19 01:55 91 H 15 96 12/30/19 01:52 92 H 108/67 98 12/30/19 01:20 85 105/65 98 12/30/19 00:49 83 95/63 L 99 12/30/19 00:20 85 94/61 L 97 12/29/19 23:20 86 15 98/63 L 98 Laboratory Results 12/30/19 03:55 12/30/19 03:54 Coding Level of Care Code 97543 Subseq Hosp Care Lvl 3 Diagnoses Metabolic acidosis E87.2 Acute hyperglycemia R73.9 Altered mental status R41.82 Altered mental status type: unspecified Renal insufficiency N28.9 (1) Altered mental status Altered mental status type: unspecified Qualified Code(s): R41.82 - Altered mental status, unspecified
[2019-12-30] MEDS: INSULIN GLARGINE SOLOSTAR 100 UNITS/ML 3 ML PEN SC SCH (10:58)
[2019-12-30] MEDS: SUCRALFATE 1 GM/10 ML UDC PO SCH ×3 (11:39→21:39)
--- NOTE | 2019-12-30 12:06 | Gastroenterology Progress Note ---
Date of Service December 30, 2019 Assessment & Plan Admission and Anticipated Discharge Date Admission Date: December 27, 2019 Subjective Patient was seen and examined today, she is extubated, alert and oriented, off all vasopressors. Doing well and denies any GI symptoms, no chest pain. Tolerating her saliva. CT scan yesterday with no mediastinitis or signs of perforation. She denies drinking anything other than alcohol. Impression: Given no caustic ingestion, her EGD findings are consistent with Acute esophageal necrosis/ Black esophagus. This is a diffuse circumferential black appearance of the esophageal mucosa that affects the distal esophagus and stops at the gastroesophageal junction. Common etiology is infection (CMV, HSV, K.pneumonia, [place]), hyperglycemia, diabetic ketoacidosis, prolonged vomiting following alcohol binging, cocaine use, alcoholic hepatitis and lactic acidosis. These predisposing factors causes an element of hypoperfusion/low vascular state followed by acid reflux causing direct injury. Recommend: Continue IV PPI drip for today then change tomorrow to PO 40 mg BID for 3 months. Start PO Liquid Carafate QID for 4 weeks. If fever persists would start her on IV Antifungal therapy. Start a trial of clear liquids today. If tolerates then can advance very slowly tomorrow to full liquids then soft diet afterwards. Avoid NG tube placement. Needs repeat EGD in 4-6 weeks to check healing and check for stricture formation. Continue ABx course. Needs GES as OP to r/o Gastroparesis. Continue to monitor for signs of delayed esophageal perforation (chest pain/ back pain, etc ...). Recall GI if needed. Results & Data ([facility]) Vital Signs (Past 12 Hours) Vital Signs Pulse Resp BP Pulse Ox 12/30/19 09:21 97 H 99/58 L 95 12/30/19 08:22 109 H 101/74 97 12/30/19 07:20 94 H 106/66 95 12/30/19 07:14 110 H 19 98 12/30/19 07:00 98 H 12/30/19 06:21 99 H 105/59 L 96 12/30/19 05:35 91 H 14 98 12/30/19 05:20 100 H 114/69 90 12/30/19 04:20 94 H 115/72 99 12/30/19 03:20 101 H 103/65 95 12/30/19 03:14 98 H 106/69 99 12/30/19 02:20 89 109/75 99 12/30/19 01:55 91 H 15 96 12/30/19 01:52 92 H 108/67 98 12/30/19 01:20 85 105/65 98 12/30/19 00:49 83 95/63 L 99 12/30/19 00:20 85 94/61 L 97
--- NOTE | 2019-12-30 13:24 | Family Medicine Progress Note ---
Date of Service December 30, 2019 Assessment & Plan (1) Hemorrhagic shock: Hemorrhagic shock: improved secondary to caustic esophageal injury/black esophagus ?from chronic alcohol abuse received transfusion support--5u PRBCs, FFP and platelets Off pressors With fevers cannot rule out a component of septic shock but less likely. Aspiration pneumonia: suspected/likely. day #5 of zosyn. blood cultures are negative to date. CT chest with ground glass opacities. Weaned off vent and now on room air Speech consult--currently npo except sips and chips due to failed bedside swallow. Acute respiratory failure with hypoxia: resolved Suspect 2nd to aspiration event (coffee-ground emesis). See above Acute blood loss anemia: Due to upper GI bleeding from esophageal caustic injury (see EGD report). s/p 5 units PRBCs. serial CBCs. PPI drip and supportive care. Caustic esophageal injury: likely secondary to alcohol abuse. Continue PPI gtt, no enteric tube due to high risk of perforation Will need repeat EGD in several weeks to verify healing. 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 severe DKA at presentation, now off insulin gtt Appreciate glycemic consult recs Acute kidney injury: improving 2nd to massive volume depletion in setting of DKA. Follow Cr and electrolytes Hyponatremia: resolved was 2nd to massive volume depletion at presentation Hypokalemia: ongoing. replete based on daily levels Check mag daily as well and replete as necessary Metabolic encephalopathy: 2nd to DKA. Cannot rule out other toxins that contributed to hospital presentation (medications, illicit drugs, etc). Cannot rule out component of hepatic encephalopathy as ammonia levels had been high. Monitor mental status and watch for any signs of alcohol withdrawal Metabolic acidosis: resolved 2nd to DKA and shock. History of left below knee amputation: 2nd to foot infection several years ago Depression with anxiety: HOLDING po meds from home, failed bedside swallow Exocrine pancreatic insufficiency: once taking a diet, resume pancrease Liver cirrhosis, alcoholic: Psoriasis: on biological agent chronically for such, per med list this places her even more immunocompromised above and beyond her chronic alcohol use, T1DM, etc. Alcohol dependence: per mother no alcohol in 1-2 months? Continue Withdrawal Protocol. Ativan ordered PRN. - no gabapentin since she is not able to take PO meds safely at this time thiamine 200mg IV BID. folic acid daily. Tobacco dependence: nicoderm patch - resume once out of ICU FEN: NPO, ice chips only DVT ppx: SCDs CODE status: FULL Dispo: pending clinical improvement (2) Acute respiratory failure with hypoxia: (3) Aspiration pneumonia: (4) Acute blood loss anemia: (5) Caustic esophageal injury: (6) DKA (diabetic ketoacidoses): (7) Acute kidney injury: (8) Hyponatremia: (9) Metabolic encephalopathy: (10) Hypokalemia: (11) Metabolic acidosis: (12) History of left below knee amputation: (13) Depression with anxiety: (14) Exocrine pancreatic insufficiency: (15) Liver cirrhosis, alcoholic: (16) Psoriasis: (17) Alcohol dependence: (18) Tobacco dependence: (19) DVT prophylaxis: Admission and Anticipated Discharge Date Admission Date: December 27, 2019 Subjective Seen in the ICU this morning soon after extubation. She is having some difficulty speaking. Reports that she feels constipated, but does not have any other complaints. Physical Exam Constitutional: + ill appearing, + thin and + frail appearing; + not well developed and + not well nourished Eyes: + anicteric sclerae and PERRL; no nystagmus ENMT: Mouth: + dry oral mucous membranes and + malodorous breath (fruity odor ) Neck: trachea midline, no thyromegaly Respiratory: normal respiratory effort, lungs clear to auscultation no respiratory distress Auscultation: + diminished lung sounds (b/l bases, otherwise CTA b/l ) On room air Cardiovascular: Rate/Rhythm: regular rate and + tachycardic Heart Sounds: normal S1, normal S2 and + murmur (3/6 LLSB ) Vessels: no JVD Extremities: + vascular access device (right IJ - clean ); no edema (right leg ) Gastrointestinal (Abdomen): normal bowel sounds, soft, nontender, no hepatosplenomegaly Inspection/Auscultation: + abdomen distended (mild) Percussion/Palpation: + abdomen tender (epigastric region ); no hepatosplenomegaly Skin: + pallor Neurologic: + confused; no focal motor deficits Psychiatric: Orientation: + not alert and + not oriented x 3 Results & Data ([facility]) Vital Signs (Past 12 Hours) Vital Signs Temp Pulse Resp BP Pulse Ox 12/30/19 11:56 37.8 C H 97 H 17 104/59 L 97 12/30/19 11:00 101 H 12/30/19 10:21 97 H 105/54 L 94 12/30/19 09:21 97 H 99/58 L 95 12/30/19 08:22 109 H 101/74 97 12/30/19 07:20 94 H 106/66 95 12/30/19 07:14 110 H 19 98 12/30/19 07:00 98 H 12/30/19 06:21 99 H 105/59 L 96 12/30/19 05:35 91 H 14 98 12/30/19 05:20 100 H 114/69 90 12/30/19 04:20 94 H 115/72 99 12/30/19 03:20 101 H 103/65 95 12/30/19 03:14 98 H 106/69 99 12/30/19 02:20 89 109/75 99 12/30/19 01:55 91 H 15 96 12/30/19 01:52 92 H 108/67 98 PG Care Time/CCT Total # of Minutes Spent Total Time Spent with Patient: Total time spent is greater than 50% in coordination of care (as documented) at patient's floor/unit and/or counseling patient: Coding Level of Care Code 09441 Subseq Hosp Care Lvl 3 Diagnoses Hemorrhagic shock R57.8 Acute respiratory failure with hypoxia J96.01 Aspiration pneumonia J69.0 Aspiration pneumonia type: due to vomit Laterality: bilateral Lung location: unspecified part of lung Acute blood loss anemia D62 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 Encounter type: initial encounter DKA (diabetic ketoacidoses) E10.11 Diabetes mellitus complication detail: with coma Diabetes mellitus type: type 1 Acute kidney injury N17.9 Hyponatremia E87.1 Metabolic encephalopathy G93.41 Hypokalemia E87.6 Metabolic acidosis E87.2 History of left below knee amputation Z89.512 Depression with anxiety F41.8 Exocrine pancreatic insufficiency K86.81 Liver cirrhosis, alcoholic K70.30 Ascites presence: without ascites Psoriasis L40.9 Alcohol dependence F10.20 Complication of substance-induced condition: uncomplicated Tobacco dependence F17.200 DVT prophylaxis Z29.9 (1) Alcohol dependence Complication of substance-induced condition: uncomplicated (2) DKA (diabetic ketoacidoses) Diabetes mellitus complication detail: with coma Diabetes mellitus type: type 1 Qualified Code(s): E10.11 - Type 1 diabetes mellitus with ketoacidosis with coma (3) Liver cirrhosis, alcoholic Ascites presence: without ascites Qualified Code(s): K70.30 - Alcoholic cirrhosis of liver without ascites (4) Aspiration pneumonia Aspiration pneumonia type: due to vomit Laterality: bilateral Lung location: unspecified part of lung Qualified Code(s): J69.0 - Pneumonitis due to inhalation of food and vomit (5) Caustic esophageal injury Encounter type: initial encounter Qualified Code(s): T28.6XXA - Corrosion of esophagus, initial encounter
--- NOTE | 2019-12-30 13:40 | Pharmacy Report ---
Pharmacy Glycemic Short Note 2 - Date of Service December 30, 2019 - Glycemic Short BSG Results (Last 24 hours): 12/29/19 12/29/19 12/29/19 14:16 15:20 16:25 Glucose POC Glucose 112 H 113 H 110 H 12/29/19 12/29/19 12/29/19 17:05 17:52 19:03 Glucose 107 H POC Glucose 109 H 107 H 12/29/19 12/29/19 12/29/19 20:02 21:00 22:06 Glucose POC Glucose 118 H 127 H 131 H 12/29/19 12/30/19 12/30/19 22:46 00:06 01:50 Glucose 128 H POC Glucose 115 H 125 H 12/30/19 12/30/19 12/30/19 03:44 03:54 05:45 Glucose 180 H POC Glucose 160 H 212 H 12/30/19 12/30/19 12/30/19 07:00 08:01 09:07 Glucose POC Glucose 247 H 224 H 202 H 12/30/19 12/30/19 12/30/19 10:16 11:14 12:46 Glucose POC Glucose 185 H 157 H 153 H OUTPATIENT ANTIDIABETIC REGIMEN: * Jardiance 10 mg PO Daily * A1c = 14.9% on 12/27/2019 ASSESSMENT: 12/30/19: * Patient extubated this AM, did not pass swallow evaluation * Protonix gtt to d/c just after midnight * Insulin gtt running consistently at 0.5 units/hr overnight, back up to 0.7 units/hr this AM for BSG of 212 mg/dL * Given improvement in clinical status and stopping of protonix gtt, will tr ansition to SQ basal-bolus insulin * Basal based off estimated daily basal needs from gtt, bolus based off weight and stress of 2 * Received 10 units of Lantus at 1100 and overlapped with insulin gtt for > 2 hours, drip just shut off at 1315 12/29/19: * Patient remains on mechanical ventilation, DKA has resolved * Given critical status and fact that she is NPO for the next several days, will continue to managed T2DM with insulin infusion * Insulin gtt was fairly consistent at 1.0 units/hr overnight, BSG increased this AM up to 227 mg/dL * Currently, the insulin gtt is running at 0.8 units/hr * Patient remains hypokalemic despite aggressive potassium replacement * Plan to start 40 mEq IV KCl BID in addition to ICU electrolyte replacement protocol 12/28/19: * 54 yo F admitted secondary to DKA, later found to have UGIB and became hypotensive requiring intubation * Upon presentation: BSG 830 mg/dL, Serum Bicarb 6 mmol/L, Anion Gap 41, Potassium 2.6 mmol/L, Beta-hydroxybutyric acid 161.88 mg/dL, ABG 7.12/12/125/98 * Patient's laboratory values have improved following fluid resuscitation, electrolyte replacement and initiation of insulin infusion * Most recent labs show closed anion gap, serum bicarb 25 mmol/L, K 3.2 mmol/L, and BSG 246 mg/dL * Patient is in goal BSG range for DKA of 150-250 mg/dL; however, dextrose containing fluids not started as patient is receiving adequate amounts of de xtrose from other gtts, will continue to monitor * Electrolyte supplementation to be guided via ICU electrolyte replacement protocol * With patient to remain NPO for several days secondary to assumed caustic agent ingestion and critical status, will continue with insulin gtt PLAN FOR INPATIENT GLYCEMIC CONTROL: * Hold outpatient oral diabetes medications * Basal Insulin: * Lantus 10 units SQ AM * Novolog Q4H * Goal Range 120 - 160 mg/dL * Correction Factor: 1 unit for every 30 mg/dL above goal range * Carbohydrate Ratio: 1 unit for every 12 g of CHO PLAN FOR DISCHARGE: * Patient will require insulin upon discharge
[2019-12-30] MEDS ORDERED: DOCUSATE SODIUM 100 MG CAP PO PRN (16:10)
[2019-12-30] MEDS ORDERED: LORazepam 1 MG/2 ML VIAL IV PRN (18:26)
[2019-12-30] MEDS: FOLIC ACID 1 MG in SYRINGE 9.8 ML IV SCH (18:31)
[2019-12-30] MEDS: COUGH DROP (SUGAR FREE) LOZ 24 LOZ/1 BOX BUCCAL PRN ×4 (18:36→23:13)
[2019-12-31] MEDS: INSULIN ASPART 100 UNITS/ML 3 ML PEN SC SCH ×5 (00:51→21:11)
[2019-12-31] MEDS: PIPERACILLIN/TAZOBACTAM 4.5 GM in DEXTROSE 5% 100 ML IV SCH ×2 (04:21→12:19)
[2019-12-31 05:29] LABS: Hematocrit (blood only) 26.7 % (37-47); Hemoglobin 9.1 g/dL (12.0-16.0); Mean Corpuscular Hemoglobin 28.3 pg (25-34); Mean Corpuscular Hgb Conc 34.1 g/dL (32-36); Mean Corpuscular Volume 82.9 fL (80-100); Nucleated RBC # (auto) 0.04 K/uL (0-0); Nucleated RBC % (auto) 0.5 %; RDW Coefficient of Variation 16.2 % (11.5-14.5); RDW Standard Deviation 48.3 fL (36.4-46.3); Red Blood Count 3.22 M/uL (4.2-5.4); White Blood Count 7.55 K/uL (4.8-10.8)
[2019-12-31 05:39] LABS: Basophils # (auto) 0.03 K/uL (0-0.2); Basophils % (auto) 0.4 %; Eosinophils # (auto) 0.21 K/uL (0-0.5); Eosinophils % (auto) 2.8 %; Immature Granulocytes # (auto) 0.14 K/uL (0.00-0.02); Immature Granulocytes % (auto) 1.9 %; Lymphocytes # (auto) 1.25 K/uL (1.2-3.4); Lymphocytes % (auto) 16.6 %; Monocytes # (auto) 1.22 K/uL (0.11-0.59); Monocytes % (auto) 16.2 %; Neutrophils % (auto) 62.1 %; Platelet Count 80 K/uL (130-400)
[2019-12-31 06:05] LABS: BUN Creatinine Ratio 15.7 (10-20); Calcium 7.8 mg/dl (8.5-10.1); Creatinine Clr Calc Pharmacy 65.8 ml/min; Est GFR (African American) 86.3; Est GFR (Non-African American) 74.5; Magnesium 1.8 mg/dl (1.8-2.4); Phosphorus 3.3 mg/dl (2.5-4.9)
[2019-12-31] MEDS ORDERED: PANTOprazole 40 MG in SYRINGE 0 ML IV SCH (09:00)
--- NOTE | 2019-12-31 09:23 | Pharmacy Report ---
Pharmacy Glycemic Short Note 2 - Date of Service December 31, 2019 - Glycemic Short BSG Results (Last 24 hours): 12/30/19 12/30/19 12/30/19 09:07 10:16 11:14 Glucose POC Glucose 202 H 185 H 157 H 12/30/19 12/30/19 12/30/19 12:46 16:23 21:40 Glucose POC Glucose 153 H 165 H 139 H 12/31/19 12/31/19 12/31/19 00:44 03:59 05:10 Glucose 181 H POC Glucose 133 H 160 H 12/31/19 08:01 Glucose POC Glucose 199 H OUTPATIENT ANTIDIABETIC REGIMEN: * Jardiance 10 mg PO Daily * A1c = 14.9% on 12/27/2019 ASSESSMENT: 12/31/19: * Patient was extubated yesterday, did not pass swallow eval, speech therapy to reassess today, NPO except ice chips * Patient was transitioned off insulin gtt to basal-bolus regimen early yesterday afternoon * BSGs Ranging 133 - 199 mg/dL since transition, received 10 units basal yesterday, no novolog received * Fasting BSGs continue to be elevated, 199 mg/dL this AM * Will continue with current regimen while patient is NPO * Clears started this afternoon, AM BSG was never covered 12/30/19: * 54 yo F admitted 12/27/19 secondary to DKA, later found to have UGIB and became hypotensive requiring intubation * Patient extubated this AM, did not pass swallow evaluation * Protonix gtt to d/c just after midnight * Insulin gtt running consistently at 0.5 units/hr overnight, back up to 0.7 units/hr this AM for BSG of 212 mg/dL * Given improvement in clinical status and stopping of protonix gtt, will transition to SQ basal-bolus insulin * Basal based off estimated daily basal needs from gtt, bolus based off weight and stress of 2 * Received 10 units of Lantus at 1100 and overlapped with insulin gtt for > 2 hours, drip just shut off at 1315 PLAN FOR INPATIENT GLYCEMIC CONTROL: * Hold outpatient oral diabetes medications * Basal Insulin: * Lantus 10 units SQ AM * Novolog Q6H while NPO * Goal Range 120 - 160 mg/dL * Correction Factor: 1 unit for every 30 mg/dL above goal range * Carbohydrate Ratio: 1 unit for every 12 g of CHO PLAN FOR DISCHARGE: * Patient will require insulin upon discharge. Would recommend Lantus 10 units SQ daily to start. May require bolus insulin in future. * Recommend d/c Jardiance given DKA. Re-trial of Metformin would be recommended with 1000 mg ER daily. DPP4i not recommended secondary to h/o pancreatitis. Sulfonylureas not recommended due to hypoglycemia risk with insulin regimen.
[2019-12-31] MEDS: SUCRALFATE 1 GM/10 ML UDC PO SCH ×4 (10:52→21:11)
[2019-12-31] MEDS: INSULIN GLARGINE SOLOSTAR 100 UNITS/ML 3 ML PEN SC SCH (10:58)
[2019-12-31] MEDS: THIAMINE HCL 200 MG in SODIUM CHLORIDE 0.9% 50 ML IV SCH (11:07)
[2019-12-31] MEDS ORDERED: POTASSIUM CHLORIDE / WTR 20 MEQ/100 ML PLCT IV ONE (11:15)
[2019-12-31] MEDS ORDERED: INSULIN ASPART 100 UNITS/ML 3 ML PEN SC SCH (12:00)
[2019-12-31] MEDS: AMOXICILLIN/CLAVULANATE 875 MG TAB PO SCH (17:23)
[2019-12-31 17:53] LABS: Hematocrit (blood only) 27.3 % (37-47); Hemoglobin 9.2 g/dL (12.0-16.0)
--- NOTE | 2019-12-31 18:16 | Family Medicine Progress Note ---
Date of Service December 31, 2019 Assessment & Plan (1) Hemorrhagic shock: 54 y/o female h/o alcohol abuse, DMI presents with GI bleed with hemorrhagic shock, DKA Hemorrhagic shock 2/2 GIB s/p 5u PRBC, FFP and PLT - stable H/H - continue daily trend Aspiration pneumonia - pip/tazo day #6 - transition to PO augmentin to complete 10 day course. Speech evaluation complete, on clears. Aspiration precautions reviewed. 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 Transition to PO thiamine. Depression/anxiety - restart home medications if continues to tolerate PO tomorrow Exocrine pancreatic insufficiency - can resume pancrease DKA w/ metabolic encephalopathy - resolved LIAM - resolved Acute hypoxic respiratory failure w/ hypoxia - resolved, tolerating room air Hyponatremia - resolved (2/2 hypovolemia) Psoriasis - with biologic FEN - clears DVT PPX - SCD FULL CODE Admission and Anticipated Discharge Date Admission Date: December 27, 2019 Subjective Pt seen and evaluated at bedside. Still feeling hoarse with stable, nonproductive cough without shortness of breath. Appetite is returning and looking forward to clears today. Did have 1x large melanotic bowel movement in the afternoon with stable H/H. Review of Systems Constitutional: + fatigue; no fever and no chills Respiratory: + cough; no dyspnea and no wheezing Cardiovascular: no chest pain, no palpitations and no edema Gastrointestinal: + melena; no abdominal pain, no nausea, no vomiting and no constipation Genitourinary: no dysuria and no urinary frequency Integumentary: no rash Physical Exam Constitutional: WD/WN, vitals as above Respiratory: normal respiratory effort, lungs clear to auscultation Cardiovascular: RRR, no murmur, no edema Heart Sounds: normal S1 and normal S2 Gastrointestinal (Abdomen): normal bowel sounds, soft, nontender, no hepatosplenomegaly Skin: no rashes, warm and dry Psychiatric: A+Ox3, euthymic affect Speech: normal rate/rhythm/volume of speech Results & Data ([facility]) Vital Signs (Past 12 Hours) Vital Signs Temp Pulse Pulse Resp BP BP Pulse Ox 12/31/19 16:00 100 H 12/31/19 15:22 37.2 C 97 H 20 99/64 L 90 12/31/19 08:00 37.0 C 101 H 18 91/60 L 93 12/31/19 07:00 108 H
[2019-12-31] MEDS: FOLIC ACID 1 MG TAB PO SCH (19:27)
[2019-12-31] MEDS: PANTOprazole 40 MG TAB PO SCH (21:12)
[2020-01-01] MEDS: INSULIN ASPART 100 UNITS/ML 3 ML PEN SC SCH ×5 (01:42→21:11)
[2020-01-01 05:43] LABS: Basophils # (auto) 0.02 K/uL (0-0.2); Basophils % (auto) 0.4 %; Eosinophils # (auto) 0.16 K/uL (0-0.5); Eosinophils % (auto) 3.1 %; Hematocrit (blood only) 27.2 % (37-47); Hemoglobin 9.1 g/dL (12.0-16.0); Immature Granulocytes # (auto) 0.12 K/uL (0.00-0.02); Immature Granulocytes % (auto) 2.3 %; Lymphocytes # (auto) 1.16 K/uL (1.2-3.4); Lymphocytes % (auto) 22.3 %; Mean Corpuscular Hemoglobin 28.7 pg (25-34); Mean Corpuscular Hgb Conc 33.5 g/dL (32-36); Mean Corpuscular Volume 85.8 fL (80-100); Mean Platelet Volume 9.6 fL (7.4-10.4); Monocytes # (auto) 1.21 K/uL (0.11-0.59); Monocytes % (auto) 23.2 %; Neutrophils # (auto) 2.54 K/uL (1.4-6.5); Neutrophils % (auto) 48.7 %; Platelet Count 113 K/uL (130-400); RDW Coefficient of Variation 16.1 % (11.5-14.5); RDW Standard Deviation 50.3 fL (36.4-46.3); Red Blood Count 3.17 M/uL (4.2-5.4); White Blood Count 5.21 K/uL (4.8-10.8)
[2020-01-01 06:19] LABS: BUN Creatinine Ratio 7.4 (10-20); Calcium 7.7 mg/dl (8.5-10.1); Creatinine Clr Calc Pharmacy 94.9 ml/min; Est GFR (African American) 119.1; Est GFR (Non-African American) 102.8; Magnesium 1.9 mg/dl (1.8-2.4); Phosphorus 1.9 mg/dl (2.5-4.9); Potassium 2.4 mmol/L (3.5-5.1)
[2020-01-01] MEDS ORDERED: POTASSIUM CHLORIDE PWD 20 MEQ PACK PO ONE (06:37)
[2020-01-01] MEDS: SUCRALFATE 1 GM/10 ML UDC PO SCH ×4 (07:55→21:07)
[2020-01-01] MEDS: AMOXICILLIN/CLAVULANATE 875 MG TAB PO SCH ×2 (07:56→17:41)
[2020-01-01] MEDS: THIAMINE HCL 100 MG TAB PO SCH (07:56)
[2020-01-01] MEDS: FOLIC ACID 1 MG TAB PO SCH (07:56)
[2020-01-01] MEDS: PANTOprazole 40 MG TAB PO SCH ×2 (07:56→21:09)
[2020-01-01] MEDS: INSULIN GLARGINE SOLOSTAR 100 UNITS/ML 3 ML PEN SC SCH (07:58)
--- NOTE | 2020-01-01 08:47 | Pharmacy Report ---
Glycemic Control Progress Note - Date of Service January 01, 2020 - Scope Glycemic Pharmacist consulted for glycemic control to write orders per [facility] inpatient glycemic control protocol. - Objective Accuchecks BSG(last 24 hours):: 12/31/19 12/31/19 12/31/19 12:08 16:51 20:13 Glucose POC Glucose 198 H 198 H 166 H 01/01/20 01/01/20 05:23 07:35 Glucose 177 H POC Glucose 161 H HbA1c:: Hemoglobin A1c 14.9 % (4.5-5.6) H 12/27/19 13:53 - Recent Pertinent Medications The patient is currently receiving: * Basal insulin: Lantus 10 units every 24 hours * Correctional Insulin: Novolog Correction per scale ACHS Goal Range: Low 120 mg/dL - High 160 mg/dL Correction Factor: 30 mg/dL/unit * Prandial insulin: Per carb ratio of 1 unit per 12 grams CHO consumed - Outpatient Anti-Diabetic Meds Jardiance 10 mg PO daily - Assessment & Plan ASSESSMENT: * See progress note from 12/28/2019 for more background info, in short: * Pt receiving SQ basal bolus insulin regimen for hyperglycemia secondary to baseline DM (outpatient regimen on hold) and infection (currently on Augmentin for possible aspiration pneumonia). * Patient is currently receiving an average of 18 units of insulin per day * 10 units of basal insulin * 8 units of prandial/correctional insulin * BSGs ranging 166 - 199 mg/dl over the past 24hrs * Changes needed to insulin regimen: * AM Fasting BSG = 161 mg/dl. This is in goal range for patient based on inpatient targets and co-morbidities. Therefore Basal insulin will be continued at 10 units daily. * Post-prandial BSGs are reasonable considering HbA1C and presenting illness. Current parameters kept patient stable yesterday. * Total daily dose = ~15-20 units. PLAN FOR INPATIENT GLYCEMIC CONTROL: * Continuing Lantus 10 units SQ daily * Continuing correction factor of 30 mg/dl/unit * Continuing carb ratio of 1 unit per 12 grams CHO consumed * Continuing goal range of Low 120 mg/dL - High 160 mg/dL RECOMMENDATIONS FOR DISCHARGE: * TBD --- will become clearer as patient's diet improves Thank you.
[2020-01-01] MEDS: POTASSIUM CHLORIDE / WTR 10 MEQ/100 ML PLCT IV SCH ×6 (08:58→18:40)
--- NOTE | 2020-01-01 11:46 | Family Medicine Progress Note ---
Date of Service January 01, 2020 Assessment & Plan (1) Hemorrhagic shock: 54 y/o female h/o alcohol abuse, DMI presents with GI bleed with hemorrhagic shock, DKA Hypokalemia - 2.4 - EKG without acute changes - replete 40meq IV today, recheck at 1200 Aspiration pneumonia - pip/tazo x 6, Augmentin day #1 - PO augmentin to complete 10 day course. Speech evaluation complete, on clears. Aspiration precautions reviewed. 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 Type 1 diabetes - continue present regimen, glycemic consultation appreciated Alcohol dependence - withdrawal protocol - ativan PRN. Transition to PO thiamine. Depression/anxiety - restart home medications Exocrine pancreatic insufficiency - can resume pancrease DKA w/ metabolic encephalopathy - resolved LIAM - resolved Acute hypoxic respiratory failure w/ hypoxia - resolved, tolerating room air Hyponatremia - resolved (2/2 hypovolemia) Psoriasis - with biologic FEN - clears DVT PPX - SCD FULL CODE Admission and Anticipated Discharge Date Admission Date: December 27, 2019 Subjective Pt seen and examined at bedside. Pt seen and examined at bedside. Tolerating liquid diet well without new onset abdominal pain, n/v/d/c. Melanotic BM overnight. Review of Systems Constitutional: no fever, no chills and no fatigue Respiratory: no cough, no dyspnea and no wheezing Cardiovascular: no chest pain, no palpitations and no edema Gastrointestinal: + melena; no abdominal pain, no nausea, no vomiting, no constipation and no diarrhea/loose stools Neurologic: no tingling, no numbness and no headache(s) Physical Exam Constitutional: WD/WN, vitals as above Respiratory: normal respiratory effort, lungs clear to auscultation Cardiovascular: RRR, no murmur, no edema Heart Sounds: normal S1 and normal S2 Gastrointestinal (Abdomen): normal bowel sounds, soft, nontender, no hepatosplenomegaly Psychiatric: A+Ox3, euthymic affect Speech: normal rate/rhythm/volume of speech Results & Data ([facility]) Vital Signs (Past 12 Hours) Vital Signs Temp Pulse Pulse Resp BP BP Pulse Ox 01/01/20 11:43 36.9 C 94 H 20 101/67 94 01/01/20 07:34 92 H 01/01/20 07:00 37 C 88 20 111/71 94 01/01/20 03:51 37.4 C 83 20 109/69 94 01/01/20 00:00 97 H
[2020-01-01 12:35] LABS: BUN Creatinine Ratio 4.5 (10-20); Calcium 7.3 mg/dl (8.5-10.1); Creatinine Clr Calc Pharmacy 77.2 ml/min; Est GFR (African American) 104.7; Est GFR (Non-African American) 90.4
--- NOTE | 2020-01-01 12:57 | Electrocardiogram Report ---
Test Reason : Blood Pressure : / mmHG Vent. Rate : 103 BPM Atrial Rate : 103 BPM P-R Int : 132 ms QRS Dur : 074 ms QT Int : 342 ms P-R-T Axes : 075 079 098 degrees QTc Int : 448 ms Sinus tachycardia Abnormal ECG When compared with ECG of 27-DEC-2019 13:27, Nonspecific T wave abnormality now evident in Inferior leads T wave inversion now evident in Anterior leads QT has shortened Confirmed by Pete Dimas ([id number]) on 01/01/2020 12:57:13 PM Referred By: REFERRED SELF Confirmed By:Pete Dimas
[2020-01-01] MEDS: CARBOHYDRATES FOR HYPOGLYCEMIA PO PRN ×2 (16:40→17:23)
[2020-01-01] MEDS: GABAPENTIN 300 MG CAP PO SCH (21:07)
[2020-01-01] MEDS: DULOXETINE HCL 20 MG CAP PO SCH (21:07)
[2020-01-01] MEDS ORDERED: BENZONATATE 100 MG CAPSULE PO PRN (22:57)
[2020-01-02 06:29] LABS: Basophils # (auto) 0.02 K/uL (0-0.2); Basophils % (auto) 0.4 %; Eosinophils # (auto) 0.14 K/uL (0-0.5); Eosinophils % (auto) 2.9 %; Hematocrit (blood only) 26.5 % (37-47); Hemoglobin 8.8 g/dL (12.0-16.0); Immature Granulocytes # (auto) 0.07 K/uL (0.00-0.02); Immature Granulocytes % (auto) 1.5 %; Lymphocytes # (auto) 1.37 K/uL (1.2-3.4); Lymphocytes % (auto) 28.8 %; Mean Corpuscular Hemoglobin 28.8 pg (25-34); Mean Corpuscular Hgb Conc 33.2 g/dL (32-36); Mean Corpuscular Volume 86.6 fL (80-100); Mean Platelet Volume 9.7 fL (7.4-10.4); Monocytes # (auto) 1.04 K/uL (0.11-0.59); Monocytes % (auto) 21.9 %; Neutrophils # (auto) 2.11 K/uL (1.4-6.5); Neutrophils % (auto) 44.5 %; Platelet Count 178 K/uL (130-400); RDW Coefficient of Variation 16.4 % (11.5-14.5); RDW Standard Deviation 50.9 fL (36.4-46.3); Red Blood Count 3.06 M/uL (4.2-5.4); White Blood Count 4.75 K/uL (4.8-10.8)
[2020-01-02 06:42] LABS: INR 1.1 (0.9-1.1); Prothrombin Time 11.5 Seconds (9.0-12.0)
[2020-01-02] MEDS: GUAIFENESIN/DEXTROM SYRUP 100MG/10MG 5ML UDC PO PRN ×2 (06:55→20:34)
[2020-01-02 07:03] LABS: BUN Creatinine Ratio 4.1 (10-20); Calcium 7.8 mg/dl (8.5-10.1); Creatinine Clr Calc Pharmacy 125.8 ml/min; Est GFR (African American) 130.7; Est GFR (Non-African American) 112.8; Magnesium 1.8 mg/dl (1.8-2.4); Phosphorus 2.1 mg/dl (2.5-4.9); Potassium 2.7 mmol/L (3.5-5.1)
[2020-01-02] MEDS: FOLIC ACID 1 MG TAB PO SCH (08:14)
[2020-01-02] MEDS: DULOXETINE HCL 60 MG CAP PO SCH (08:14)
[2020-01-02] MEDS: SUCRALFATE 1 GM/10 ML UDC PO SCH ×4 (08:14→20:34)
[2020-01-02] MEDS: AMOXICILLIN/CLAVULANATE 875 MG TAB PO SCH ×2 (08:14→17:11)
[2020-01-02] MEDS: THIAMINE HCL 100 MG TAB PO SCH (08:15)
[2020-01-02] MEDS: PANTOprazole 40 MG TAB PO SCH ×2 (08:15→20:38)
[2020-01-02] MEDS: GABAPENTIN 300 MG CAP PO SCH ×3 (08:15→20:35)
[2020-01-02] MEDS: INSULIN ASPART 100 UNITS/ML 3 ML PEN SC SCH ×4 (08:18→20:35)
[2020-01-02] MEDS: INSULIN GLARGINE SOLOSTAR 100 UNITS/ML 3 ML PEN SC SCH (08:19)
[2020-01-02] MEDS: POTASSIUM CHLORIDE / WTR 10 MEQ/100 ML PLCT IV SCH ×4 (09:08→12:15)
--- NOTE | 2020-01-02 10:02 | Pharmacy Report ---
Glycemic Control Progress Note - Date of Service January 02, 2020 - Scope Glycemic Pharmacist consulted for glycemic control to write orders per [facility] inpatient glycemic control protocol. - Objective Accuchecks BSG(last 24 hours):: 01/01/20 01/01/20 01/01/20 11:25 11:27 11:49 Glucose 259 H POC Glucose 303 H* 278 H 01/01/20 01/01/20 01/01/20 16:34 16:56 17:00 Glucose POC Glucose 62 L* 33 L* 25 L* 01/01/20 01/01/20 01/01/20 17:12 17:17 17:34 Glucose POC Glucose 99 63 L* 100 H 01/01/20 01/01/20 01/01/20 17:52 17:54 17:56 Glucose POC Glucose 318 H* 208 H 231 H 01/01/20 01/01/20 01/01/20 17:58 18:35 20:01 Glucose POC Glucose 281 H 290 H 182 H 01/02/20 01/02/20 06:15 07:30 Glucose 153 H POC Glucose 125 H HbA1c:: Hemoglobin A1c 14.9 % (4.5-5.6) H 12/27/19 13:53 - Recent Pertinent Medications The patient is currently receiving: * Basal insulin: Lantus 10 units every 24 hours * Correctional Insulin: Novolog Correction per scale ACHS Goal Range: Low 120 mg/dL - High 160 mg/dL Correction Factor: 30 mg/dL/unit * Prandial insulin: Per carb ratio of 1 unit per 12 grams CHO consumed - Outpatient Anti-Diabetic Meds Jardiance 10 mg PO daily - Assessment & Plan ASSESSMENT: * See progress note from 12/27/2019 for more background info, in short: * Pt receiving SQ basal bolus insulin regimen for hyperglycemia secondary to baseline DM (outpatient regimen on hold). Patient on Augmentin for aspiration pneumonia. * Patient is currently receiving an average of 34 units of insulin per day * 10 units of basal insulin * 24 units of prandial/correctional insulin * BSGs ranging 25 - 278 mg/dl over the past 24hrs * Changes needed to insulin regimen: * AM Fasting BSG = 125 mg/dl. This is in goal range for patient based on inpatient targets and co-morbidities. Since fasting BSGs have been decreasing, decrease basal insulin by 20% to 8 units. * Post-prandial BSGs struggled yesterday. Patient had a significant low at 1630 which may have been due to stacking or overcorrection. Interestingly, patient received even more insulin at dinner with a BSG of 182 mg/dL afterwards. Loosen CF and CR. Up goal range. Goal is to have patient around 200 mg/dL for now. She is very insulin sensitive. * Total daily dose = ? units. Changing currently. PLAN FOR INPATIENT GLYCEMIC CONTROL: * Decreasing Lantus to 8 units SQ daily * LOOSENING correction factor to 45 mg/dl/unit * LOOSENING carb ratio to 1 unit per 12 grams CHO consumed * LOOSENING goal range to Low 140 mg/dL - High 180 mg/dL * Please note that the plan above was derived based on current level of insulin resistance and hospital stress. These recommendations are appropriate for inpatient admission only. Plan of care upon discharge will need to be reassessed to avoid potential outpatient hypo/hyperglycemia. Thank you.
--- NOTE | 2020-01-02 15:40 | Family Medicine Progress Note ---
Date of Service January 02, 2020 Assessment & Plan (1) Hemorrhagic shock: 54 y/o female h/o alcohol abuse, DMI presents with GI bleed with hemorrhagic shock, DKA Diarrhea - C. diff testing ordered. Can use immodium if C. diff negative. Hypokalemia - 2.7 - EKG without acute changes - replete 40meq IV today, recheck at 1500 and replete if needed. Aspiration pneumonia - pip/tazo x 6, Augmentin day #2 - PO augmentin to complete 10 day course. Speech evaluation complete, on clears. Aspiration precautions reviewed. 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 Type 1 diabetes with neuropathy - continue present regimen including gabapentin, glycemic consultation appreciated Alcohol dependence - withdrawal protocol - ativan PRN. Continue PO thiamine Depression/anxiety - continue duloxetine, buspirone Exocrine pancreatic insufficiency - continue pancrease DKA w/ metabolic encephalopathy - resolved LIAM - resolved Acute hypoxic respiratory failure w/ hypoxia - resolved, tolerating room air Hyponatremia - resolved (2/2 hypovolemia) Psoriasis - with biologic FEN - clears DVT PPX - SCD FULL CODE Admission and Anticipated Discharge Date Admission Date: December 27, 2019 Subjective Pt seen and examined at bedside. Persistent diarrheal illness with some incontinence of stool with coughing which is new from previous. Improvement of persistent, minimally productive cough without fever. Review of Systems Constitutional: no fever, no chills and no fatigue Respiratory: no cough, no dyspnea and no wheezing Cardiovascular: no chest pain, no palpitations and no lightheadedness Gastrointestinal: + diarrhea/loose stools; no abdominal pain, no nausea, no vomiting and no constipation Physical Exam Constitutional: WD/WN, vitals as above no acute distress Respiratory: normal respiratory effort; no respiratory distress Auscultation: + rales; no wheezes Cardiovascular: RRR, no murmur, no edema Heart Sounds: normal S1 and normal S2 Gastrointestinal (Abdomen): normal bowel sounds, soft, nontender, no hepatosplenomegaly Skin: no rashes, warm and dry Results & Data ([facility]) Vital Signs (Past 12 Hours) Vital Signs Temp Pulse Pulse Resp BP Pulse Ox 01/02/20 15:05 36.8 C 105 H 18 99/67 L 97 01/02/20 11:15 37.0 C 91 H 18 103/69 96 01/02/20 09:28 96 H 01/02/20 07:15 36.4 C L 80 18 111/72 97 01/02/20 04:16 37.1 C 89 20 109/74 95
[2020-01-02 16:09] LABS: BUN Creatinine Ratio 2.3 (10-20); Calcium 7.8 mg/dl (8.5-10.1); Creatinine Clr Calc Pharmacy 87.7 ml/min; Est GFR (African American) 116.1; Est GFR (Non-African American) 100.1; Potassium 3.1 mmol/L (3.5-5.1)
[2020-01-02] MEDS ORDERED: POTASSIUM PHOS 3 MMOL/1 ML INFUSION IV STA (16:46)
[2020-01-02] MEDS ORDERED: POTASSIUM CHLORIDE / WTR 10 MEQ/100 ML PLCT IV ONE (17:00)
[2020-01-02] MEDS ORDERED: POTASSIUM PHOSPHATE 15 MMOL in SODIUM CHLORIDE 0.9% 250 ML IV ONE (18:00)
[2020-01-02 20:35] LABS: Cdiff Antigen Negative; Cdiff Toxin A+B Negative Cdiff Toxin (Negative)
[2020-01-02] MEDS: DULOXETINE HCL 20 MG CAP PO SCH (20:35)
[2020-01-03] MEDS ORDERED: LOPERAMIDE HCL 2 MG CAP PO PRN (02:32)
[2020-01-03 06:12] LABS: Hematocrit (blood only) 27.2 % (37-47); Hemoglobin 8.8 g/dL (12.0-16.0); Mean Corpuscular Hemoglobin 28.3 pg (25-34); Mean Corpuscular Hgb Conc 32.4 g/dL (32-36); Mean Corpuscular Volume 87.5 fL (80-100); Mean Platelet Volume 9.9 fL (7.4-10.4); Platelet Count 272 K/uL (130-400); RDW Coefficient of Variation 16.5 % (11.5-14.5); RDW Standard Deviation 51.4 fL (36.4-46.3); Red Blood Count 3.11 M/uL (4.2-5.4); White Blood Count 4.89 K/uL (4.8-10.8)
[2020-01-03 06:38] LABS: Basophils # (auto) 0.02 K/uL (0-0.2); Basophils % (auto) 0.4 %; Eosinophils # (auto) 0.13 K/uL (0-0.5); Eosinophils % (auto) 2.7 %; Giant Platelets 1+; Immature Granulocytes # (auto) 0.06 K/uL (0.00-0.02); Immature Granulocytes % (auto) 1.2 %; Lymphocytes # (auto) 1.69 K/uL (1.2-3.4); Lymphocytes % (auto) 34.6 %; Monocytes # (auto) 0.71 K/uL (0.11-0.59); Monocytes % (auto) 14.5 %; Neutrophils # (auto) 2.28 K/uL (1.4-6.5); Neutrophils % (auto) 46.6 %; Toxic Granulation 1+
[2020-01-03 06:40] LABS: BUN Creatinine Ratio 3.4 (10-20); Calcium 7.9 mg/dl (8.5-10.1); Creatinine Clr Calc Pharmacy 98.1 ml/min; Est GFR (African American) 120.4; Est GFR (Non-African American) 103.9; Magnesium 1.7 mg/dl (1.8-2.4); Potassium 3.1 mmol/L (3.5-5.1)
[2020-01-03 06:48] LABS: Phosphorus 2.9 mg/dl (2.5-4.9)
[2020-01-03] MEDS: GABAPENTIN 300 MG CAP PO SCH ×3 (08:35→20:53)
[2020-01-03] MEDS: THIAMINE HCL 100 MG TAB PO SCH (08:35)
[2020-01-03] MEDS: PANTOprazole 40 MG TAB PO SCH ×2 (08:35→20:53)
[2020-01-03] MEDS: SUCRALFATE 1 GM/10 ML UDC PO SCH ×4 (08:35→20:52)
[2020-01-03] MEDS: DULOXETINE HCL 60 MG CAP PO SCH (08:35)
[2020-01-03] MEDS: FOLIC ACID 1 MG TAB PO SCH (08:35)
[2020-01-03] MEDS: INSULIN GLARGINE SOLOSTAR 100 UNITS/ML 3 ML PEN SC SCH (08:39)
[2020-01-03] MEDS: INSULIN ASPART 100 UNITS/ML 3 ML PEN SC SCH ×4 (08:39→21:55)
[2020-01-03] MEDS: MAGNESIUM SULFATE / D5W 1 GM/100 ML BAG IV SCH ×3 (09:55→11:52)
[2020-01-03] MEDS: POTASSIUM CHLORIDE 20 MEQ/15 ML UDC PO SCH ×3 (09:55→20:53)
--- NOTE | 2020-01-03 10:08 | Pharmacy Report ---
Pharmacy Glycemic Short Note 2 - Date of Service January 03, 2020 - Glycemic Short BSG Results (Last 24 hours): 01/02/20 01/02/20 01/02/20 11:23 15:41 16:43 Glucose 184 H POC Glucose 188 H 150 H 01/02/20 01/03/20 01/03/20 20:16 05:36 07:31 Glucose 172 H POC Glucose 140 H 140 H OUTPATIENT ANTIDIABETIC REGIMEN: * Jardiance 10 mg PO daily * A1c = 14.9% on 12/27/2019 ASSESSMENT: * 54 yo F with mixed type 1 / type 2 diabetes. Was only on Jardiance monotherapy as outpatient, but patient may have late-onset type 1 diabetes as well 2nd chronic pancreatitis/pancreatic insufficiency * Admitted 12/27/19 2nd DKA, caustic esophageal injury/GIB. Hospital course notable for hemorrhagic shock, aspiration PNA, acute respiratory failure, and LIAM. * Stressors * Patient is currently extubated * Seven day course of antibiotics for aspiration PNA completed 01/01 * T1DM ordered * No repeat hypoglycemia noted since severe hypoglycemic episode 12/31 * BSG's ranging 125-188 mg/dL yesterday with one BSG >180 mg/dL * Three day trend where lunch BSG >180 mg/dL. However, hesitant to tighten CR much 2nd hypoglycemic event on 01/01 potentially precipitated from a tighter CR. Will very slightly tighten CR at breakfast only to help prevent lunch BSG >180 mg/dL PLAN FOR INPATIENT GLYCEMIC CONTROL: * Hold outpatient oral diabetes medications * Basal Insulin * Lantus 8-10 units SQ AM based on BSG - see MAR for details * Novolog ACHS * Goal Range 120 - 160 mg/dL * Correction Factor: 45 mg/dL/unit * Carbohydrate Ratio: 11 gCHO/unit at breakfast, 12 gCHO/unit at all other checks Recommendations for discharge: * Patient will require insulin upon discharge. * Would recommend Basaglar 10 units SQ daily to start * Humalog ACHS * 2 units with low CHO meal, 4 units with high CHO meal * Correction as follows (~CF 50 mg/dL/unit for ease of calculating/remembering) * BSG 150-199 mg/dL: 1 unit * BSG 200-249 mg/dL: 2 units * BSG 250-299 mg/dL: 3 units * BSG 300-349 mg/dL: 4 units * BSG 350 mg/dL or greater: 5 units and call provider * Recommend d/c Jardiance given DKA * Re-trial of metformin may be reasonable, starting at 500 mg ER po daily * DPP4 not recommended secondary to h/o pancreatitis * Sulfonylureas not recommended due to hypoglycemia risk with insulin regimen * Prescriptions needed (per information systems security officer) * Basaglar Frandy * Humalog Kwikpen * BD Cee insulin pen needles - 90 per box * OneTouch Verio test strips to check 4x/day * OneTouch Delica Lancets to check 4x/day
[2020-01-03] MEDS: GUAIFENESIN/DEXTROM SYRUP 100MG/10MG 5ML UDC PO PRN ×2 (11:52→22:02)
--- NOTE | 2020-01-03 12:59 | Hospitalist Progress Note ---
Date of Service January 03, 2020 Assessment & Plan (1) Caustic esophageal injury: EGD on 12/28/2019 showed a 14 cm segment of black esophagus with superficial (mucosal/submucosal layer) necrosis which is suggestive of caustic esophagitis or alcohol related injury. - Was on IV PPI x 72 hours - Now on PPI PO BID -> Will need to have repeat EGD in 2-3 months to check for strictures and healing, then every 2-3 years after 10 years. - No further signs of bleeding - Continue sucralfate (2) Aspiration pneumonia: No major breathing concerns today. STADIUM ATTENDANT evaluated on 12/30/2019, and had concerns. Presently she is tolerating a soft, bite-sized diet. - Finished Augmentin on 01/01 - Monitor (3) Hemorrhagic shock: Due to bleeding from the esophagus injury. - S/p 5u PRBC, FFP and PLT - Resolved (4) Alcohol dependence: Heavy history of alcohol abuse. - Outside of withdrawal window - Continue thiamine PO - Continue Pancrease (5) Diabetes mellitus type 2 in nonobese: Presented with DKA on 12/26. She has pancreatic insufficiency from her alcohol intake. - Needing ~ 8 units of long-acting insulin daily - Sliding scale insulin (6) Depression with anxiety: Presently mood is good in the room. - Continue duloxetine, buspirone (7) Psoriasis: No present issues. - Outpatient follow up (8) DVT prophylaxis: SCD - Holding heparin for bleeding Admission and Anticipated Discharge Date Admission Date: December 27, 2019 Subjective Feels well today. Slept well overall. No major concerns at present. Reports no fevers/chills, chest pain, shortness of breath, abdominal pain, nausea, or vomiting. Physical Exam Constitutional: WD/WN, vitals as above Eyes: EOM intact bilaterally; no conjunctival abnormality ENMT: external ear and nose normal, oropharynx normal Neck: trachea midline, no thyromegaly normal visual inspection Respiratory: normal respiratory effort, lungs clear to auscultation no respiratory distress Cardiovascular: RRR, no murmur, no edema Gastrointestinal (Abdomen): Inspection/Auscultation: abdomen normal to inspection; abdomen not distended Musculoskeletal: no cyanosis or clubbing, extremities motor strength 5/5 Skin: no rashes, warm and dry Neurologic: moves all extremities and awake Psychiatric: Orientation: alert, oriented to person and cooperative Results & Data Results & Data ([facility]) Vital Signs (Past 12 Hours) Vital Signs Temp Pulse Pulse Resp BP BP Pulse Ox 01/03/20 11:29 98 H 01/03/20 11:21 37.1 C 85 18 104/69 95 01/03/20 07:16 36.3 C L 92 H 18 106/73 93 01/03/20 04:00 36.7 C 102 H 20 107/75 96 PG Care Time/CCT Total # of Minutes Spent Total Time Spent with Patient: Total time spent is greater than 50% in coordination of care (as documented) at patient's floor/unit and/or counseling patient: Coding Level of Care Code 97677 Subseq Hosp Care Lvl 3 Diagnoses 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 Encounter type: initial encounter Aspiration pneumonia J69.0 Aspiration pneumonia type: due to vomit Laterality: bilateral Lung location: unspecified part of lung Hemorrhagic shock R57.8 Alcohol dependence F10.20 Complication of substance-induced condition: uncomplicated Diabetes mellitus type 2 in nonobese E11.9 Depression with anxiety F41.8 Psoriasis L40.9 DVT prophylaxis Z29.9 (1) Caustic esophageal injury Encounter type: initial encounter Qualified Code(s): T28.6XXA - Corrosion of esophagus, initial encounter (2) Alcohol dependence Complication of substance-induced condition: uncomplicated (3) Aspiration pneumonia Aspiration pneumonia type: due to vomit Laterality: bilateral Lung location: unspecified part of lung Qualified Code(s): J69.0 - Pneumonitis due to inhalation of food and vomit
[2020-01-03] MEDS: DULOXETINE HCL 20 MG CAP PO SCH (20:52)
[2020-01-04 06:24] LABS: Basophils # (auto) 0.02 K/uL (0-0.2); Basophils % (auto) 0.3 %; Eosinophils # (auto) 0.09 K/uL (0-0.5); Eosinophils % (auto) 1.3 %; Hematocrit (blood only) 27.1 % (37-47); Hemoglobin 9.1 g/dL (12.0-16.0); Immature Granulocytes # (auto) 0.06 K/uL (0.00-0.02); Immature Granulocytes % (auto) 0.8 %; Lymphocytes # (auto) 1.97 K/uL (1.2-3.4); Lymphocytes % (auto) 27.4 %; Mean Corpuscular Hemoglobin 28.8 pg (25-34); Mean Corpuscular Hgb Conc 33.6 g/dL (32-36); Mean Corpuscular Volume 85.8 fL (80-100); Mean Platelet Volume 9.7 fL (7.4-10.4); Monocytes # (auto) 0.63 K/uL (0.11-0.59); Monocytes % (auto) 8.8 %; Neutrophils # (auto) 4.43 K/uL (1.4-6.5); Neutrophils % (auto) 61.4 %; Platelet Count 321 K/uL (130-400); RDW Coefficient of Variation 16.3 % (11.5-14.5); RDW Standard Deviation 49.3 fL (36.4-46.3); Red Blood Count 3.16 M/uL (4.2-5.4)
[2020-01-04 07:00] LABS: Albumin Level 2.1 gm/dl (3.4-5.0); BUN Creatinine Ratio 3.7 (10-20); Calcium 7.8 mg/dl (8.5-10.1); Creatinine Clr Calc Pharmacy 107.2 ml/min; Magnesium 2.1 mg/dl (1.8-2.4); Potassium 3.5 mmol/L (3.5-5.1)
[2020-01-04 07:03] LABS: Albumin Globulin Ratio 0.7 (0.9-2); Bilirubin,Total 0.4 mg/dl (0.2-1); Globulin 3.1 gm/dl (2.5-4.0); Phosphorus 2.8 mg/dl (2.5-4.9); Total Protein 5.2 gm/dl (6.4-8.2)
[2020-01-04] MEDS ORDERED: INSULIN ASPART 100 UNITS/ML 3 ML PEN SC SCH (07:30)
[2020-01-04] MEDS: SUCRALFATE 1 GM/10 ML UDC PO SCH ×2 (07:52→11:54)
[2020-01-04] MEDS: THIAMINE HCL 100 MG TAB PO SCH (07:52)
[2020-01-04] MEDS: PANTOprazole 40 MG TAB PO SCH (07:53)
[2020-01-04] MEDS: GABAPENTIN 300 MG CAP PO SCH (07:53)
[2020-01-04] MEDS: DULOXETINE HCL 60 MG CAP PO SCH (07:53)
[2020-01-04] MEDS: FOLIC ACID 1 MG TAB PO SCH (07:54)
[2020-01-04] MEDS ORDERED: INSULIN GLARGINE SOLOSTAR 100 UNITS/ML 3 ML PEN SC SCH (09:00)
--- NOTE | 2020-01-04 09:03 | Pharmacy Report ---
Pharmacy Glycemic Short Note 2 - Date of Service January 04, 2020 - Glycemic Short BSG Results (Last 24 hours): 01/03/20 01/03/20 01/03/20 11:33 16:34 20:13 Glucose POC Glucose 236 H 161 H 128 H 01/04/20 01/04/20 05:34 07:25 Glucose 103 H POC Glucose 84 OUTPATIENT ANTIDIABETIC REGIMEN: * Jardiance 10 mg PO daily * A1c = 14.9% on 12/27/2019 ASSESSMENT: * 54 yo F with mixed type 1 / type 2 diabetes. Was only on Jardiance monotherapy as outpatient, but patient may have late-onset type 1 diabetes as well 2nd chronic pancreatitis/pancreatic insufficiency * Admitted 12/27/19 2nd DKA, caustic esophageal injury/GIB. Hospital course notable for hemorrhagic shock, aspiration PNA, acute respiratory failure, and LIAM. * Stressors * Patient is currently extubated * Seven day course of antibiotics for aspiration PNA completed 01/01 * T1DM ordered * No repeat hypoglycemia noted since severe hypoglycemic episode 12/31 * BSG's ranging 140-236 mg/dL yesterday with one BSG >180 mg/dL * Three day trend where lunch BSG >180 mg/dL. However, hesitant to tighten CR much 2nd hypoglycemic event on 01/01 potentially precipitated from a tighter CR. Will very slightly tighten CR at breakfast only to help prevent lunch BSG >180 mg/dL PLAN FOR INPATIENT GLYCEMIC CONTROL: * Hold outpatient oral diabetes medications * Basal Insulin * Lantus 5-8 units SQ AM based on BSG - see MAR for details * Novolog ACHS * Goal Range 120 - 160 mg/dL * Correction Factor: 45 mg/dL/unit * Carbohydrate Ratio: 11 g CHO/unit at breakfast, 12 g CHO/unit at all other checks Recommendations for discharge: * Patient will require insulin upon discharge. * Would recommend Basaglar 6 units SQ daily to start * Humalog ACHS * 2 units with low CHO meal, 4 units with high CHO meal * Correction in addition to prandial insulin above as follows (~CF 50 mg/dL/unit for ease of calculating/remembering) * BSG 150-199 mg/dL: 1 unit * BSG 200-249 mg/dL: 2 units * BSG 250-299 mg/dL: 3 units * BSG 300-349 mg/dL: 4 units * BSG 350 mg/dL or greater: 5 units and call provider * Recommend d/c Jardiance given DKA * Re-trial of metformin may be reasonable, starting at 500 mg ER po daily * DPP4 not recommended secondary to h/o pancreatitis * Sulfonylureas not recommended due to hypoglycemia risk with insulin regimen * Prescriptions needed (per manager diabetes) * Basaglar Frandy * Humalog Kwikpen * BD Cee insulin pen needles - 90 per box * OneTouch Verio test strips to check 4x/day * OneTouch Delica Lancets to check 4x/day
[2020-01-04] MEDS: INSULIN ASPART 100 UNITS/ML 3 ML PEN SC SCH (11:54)
--- NOTE | 2020-01-04 12:34 | Discharge Summary ---
Date of Service January 04, 2020 Admission HPI Per Admitting Provider 54yo female with alcoholism, tobacco dependence, chronic pancreatitis/pancreatic insufficiency, ?cirrhosis, and diabetes mellitus who presents from home after being found by police with altered mental status and covered with vomit. The patient's mother lives in the [place] area and hadn't heard from the patient in 2 days. Thus, the patient's mother called the police to investigate. Upon arrival to [facility] ER the patient was altered and found to have significant metabolic derangements including severe metabolic acidosis and evidence of DKA. She was also hyponatremic and severely hypokalemic with acute kidney injury. The patient was too altered to provide any meaningful history or ROS. Following admission I contacted the patient's mother who provided some basic information. Patient's mother confirmed that she continues to smoke - possibly 1 ppd or more. She was drinking alcohol up until 1-2 months ago but is uncertain if she is currently drinking. Principal Diagnosis Esophageal necrosis from alcohol intake; blood loss Discharge Exam Constitutional WD/WN, vitals as above Eyes EOM intact bilaterally; no conjunctival abnormality ENMT external ear and nose normal, oropharynx normal Neck trachea midline, no thyromegaly normal visual inspection Respiratory normal respiratory effort, lungs clear to auscultation no respiratory distress Cardiovascular RRR, no murmur, no edema Gastrointestinal (Abdomen) Inspection/Auscultation: abdomen normal to inspection; abdomen not distended Musculoskeletal no cyanosis or clubbing, extremities motor strength 5/5 Skin no rashes, warm and dry Neurologic moves all extremities and awake Psychiatric Orientation: alert, oriented to person and cooperative Discharge Data Allergies Allergy/AdvReac Type Severity Reaction Status Date / Time haloperidol [From Haldol] AdvReac Unknown Verified 12/17/19 09:26 Consultations 12/27/19 17:41 Consult Case Management - Discharge Planning Routine Consult Glass Crusher Stat 12/28/19 03:39 Consult Gastroenterology Routine Procedures Performed Operation Date: 12/28/19 05:30 Actual Procedures p EGD Hemostasis(Not Applicable) - Luis Dodson MD Ordered Studies 12/27/19 13:43 CT head/brain wo con Stat 12/28/19 01:21 US point of care ultrasound Urgent 12/28/19 03:33 US duplex portal hepatic veins Urgent 12/28/19 14:00 CT chest wo con Urgent Hospital Course (1) Caustic esophageal injury: EGD on 12/28/2019 showed a 14 cm segment of black esophagus with superficial (mucosal/submucosal layer) necrosis which is suggestive of caustic esophagitis or alcohol related injury. She strongly denied any caustic ingestion or self-harm attempt. - Was on IV PPI x 72 hours - Now on PPI PO BID -> Will need to have repeat EGD in 2-3 months to check for strictures and healing, then every 2-3 years after 10 years. - Continue sucralfate - Emphasized as strongly as I could that she cannot drink any alcohol. She was was very dismissive of her prior drinking, so I have great fear she will return to drinking once home. I did tell her alcohol intake could/would cause further bleeding. She addressed this by saying very glibly that she did not drink much, and it was probably the vomiting from gabapentin-withdrawal that caused her esophageal injury. (2) Aspiration pneumonia: No major breathing concerns today. SENIOR SECURITY ARCHITECT evaluated on 12/30/2019, and had concerns. Presently she is tolerating a soft, bite-sized diet. - Finished Augmentin on 01/01 (3) Hemorrhagic shock: Due to bleeding from the esophagus injury. - S/p 5u PRBC, FFP and PLT - Resolved -> Hgb stable at 9.1 on discharge, and slowly climbing. (4) Alcohol dependence: Heavy history of alcohol abuse. - Outside of withdrawal window - Continue thiamine PO - Continue Pancrease (5) Diabetes mellitus type 2 in nonobese: Presented with DKA on 12/26. She has pancreatic insufficiency from her alcohol intake. - Discharged on insulin and low-dose metformin: - Long-acting Basaglar insulin 10 units daily - Sliding scale insulin as detailed below in the discharge instructions: She was educated several times by the rn diabetes educator and the nursing staff on finger- sticks and insulin administration. (6) Depression with anxiety: Presently mood is good in the room. Denies any intent for self-harm or suicide intent. - Continue duloxetine, buspirone (7) Psoriasis: No present issues. - Outpatient follow up (8) DVT prophylaxis: SCD - Holding heparin for bleeding Total Time Total Time Spent Total Time Spent (In Minutes): 35 Discharge Plan Discharge Items Patient Disposition: Home - Home Health Services Reason For Visit: DKA,ALCOHOL ABUSE,ALTERED MENTAL STATUS Discharge Diagnosis: Esophageal erosion from alcohol Activity: Resume your previous activity Non-emergency contact: Primary Care Provider and Panel Instrument Repairer Call non-emergency contact if: your symptoms worsen and your pain is worsening Follow-up/Referrals: Ana Lilia Madrid MD [Primary Care Provider] - Luis Dodson MD [Hospitalist] - (Please see Dr. Dodson in 1 month for follow up.) Diet: Heart Healthy Addtl Attending Provider Instructions: You were admitted with a bleed in your esophagus that was thought to be due to erosions from alcohol use. We ended up giving you 5 units of blood which has kept your hemoglobin stable over the days prior to discharge. Please do not drink any alcohol. This most likely caused your esophageal erosions. You will need to follow up with the GI doctor (Dr. Dodson) in 1-2 months for a repeat scope of your esophagus and stomach. Please call your PCP or the GI doctor if you have any questions or concerning symptoms. For your diabetes, this is likely caused by your pancreas getting damaged by the alcohol intake. The regimen is as follows: Basaglar insulin 10 units every morning (This is a long-acting insulin that h elps meet your steady-state needs.) Humalog insulin with meals (This is a short-acting insulin that covers the carbohydrate needs when you eat.) 2 units with low carbohydrate meal, 4 units with high carbohydrate meal PLUS Correction as follows (~CF 50 mg/dL/unit for ease of calculating/remembering) * BSG 150-199 mg/dL: 1 unit * BSG 200-249 mg/dL: 2 units * BSG 250-299 mg/dL: 3 units * BSG 300-349 mg/dL: 4 units * BSG 350 mg/dL or greater: 5 units and call provider This is admittedly tricky, so you should have a low threshold to call your PCP if you have trouble. Pending Studies at Discharge: No Stand-Alone Forms: My Medminder, Smoking Cessation Medications and DC Order Prescriptions: New Basaglar KwikPen U-100 Insulin 100 unit/mL (3 mL) insulin pen 10 units SQ DAILY Qty: 15 RF: 0 insulin lispro [Humalog KwikPen Insulin] 100 unit/mL insulin pen 1 units SQ ACHS Qty: 15 RF: 0 (DME) blood sugar diagnostic [OneTouch Verio] Strip See Rx Instructions .ROUTE .MEDSUPPLY Qty: 10 RF: 0 sucralfate 100 mg/mL Suspension 10 ml PO ACHS Qty: 420 RF: 2 thiamine HCl (vitamin B1) [Vitamin B-1] 100 mg Tablet 100 mg PO DAILY Qty: 30 RF: 0 metformin 500 mg tablet extended release 24 hr 500 mg PO DAILY Qty: 30 RF: 0 Continued duloxetine [Cymbalta] 60 mg capsule,delayed release(DR/EC) 60 mg PO QAM Qty: 30 RF: 5 Creon 6,000-19,000 -30,000 unit capsule,delayed release(DR/EC) 1 cap PO TID Qty: 90 RF: 1 clobetasol 0.05 % foam 1 appln TOP BID Qty: 100 RF: 1 guselkumab [Tremfya] 100 mg/mL auto-injector See Rx Instructions .ROUTE .COMPLEX Qty: 1 RF: 0 buspirone 5 mg tablet 5 mg PO BID Qty: 60 RF: 5 ferrous sulfate 325 mg (65 mg iron) tablet,delayed release (DR/EC) 325 mg PO Q OTHER DAY RF: 0 cholecalciferol (vitamin D3) 1,000 unit capsule 1,000 units PO PM RF: 0 folic acid 400 mcg tablet 400 mcg PO PM RF: 0 multivitamin tablet 1 tab PO PM RF: 0 nystatin 100,000 unit/gram ointment 1 appln TOP TID Qty: 30 RF: 0 gabapentin 300 mg capsule 300 mg PO TID Qty: 90 RF: 1 clobetasol 0.05 % shampoo 1 appln TOP DAILY PRN (Reason: Rash) RF: 0 duloxetine [Cymbalta] 20 mg capsule,delayed release(DR/EC) 20 mg PO QPM RF: 0 cyanocobalamin (vitamin B-12) [Vitamin B-12] 1,000 mcg Tablet 1,000 mcg PO PM RF: 0 ondansetron 4 mg tablet,disintegrating 4 mg PO Q6 PRN (Reason: nausea and vomiting) Qty: 14 RF: 0 Changed pantoprazole [Protonix] 40 mg tablet,delayed release (DR/EC) 40 mg PO BID Qty: 60 RF: 0 Discontinued cyclobenzaprine 10 mg tablet 10 mg PO BID PRN (Reason: muscle spasm) Qty: 20 RF: 0 trazodone 50 mg tablet 50 mg PO HS Qty: 30 RF: 5 vitamin E (dl, acetate) 400 unit capsule 400 units PO PM RF: 0 cephalexin [Keflex] 500 mg capsule 500 mg PO QID 10 Days Qty: 40 RF: 0 Jardiance 10 mg tablet 10 mg PO QAM RF: 0 hydroxyzine pamoate [Vistaril] 25 mg capsule 25 mg PO DAILY PRN (Reason: anxiety/itchiness) RF: 0 Discharge Orders: Discharge Order (Routine); Ordered 01/04/20 Ordered By: Hussein Ortega/Other Patient Handouts: Diabetes Healthy Meals, Understanding Carbohydrates, Diabetes Eating Out Admission Data Admit Date/Time: 12/27/19 16:52 Attending Provider: Hussein Cassidy Admit Provider: Alfonso Valencia Primary Care Provider: Ana Lilia Madrid V. Other Providers: Eugene Tobias ; Luis Dodson ; [facility] Coding Level of Care Code D/C Day Management >30 mins Diagnoses 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 Encounter type: initial encounter Aspiration pneumonia J69.0 Aspiration pneumonia type: due to vomit Laterality: bilateral Lung location: unspecified part of lung Hemorrhagic shock R57.8 Alcohol dependence F10.20 Complication of substance-induced condition: uncomplicated Diabetes mellitus type 2 in nonobese E11.9 Depression with anxiety F41.8 Psoriasis L40.9 DVT prophylaxis Z29.9
== END 2020-01-04 13:34 | disposition home health service (06) | DRG 981 ==
LOC: ED 13:22 → SUATTDRO 16:52 → 1E 16:52 → 2W 12-30 14:48
DX: E11.10 Type 2 diabetes mellitus with ketoacidosis without coma; E87.1 Hypo-osmolality and hyponatremia; G93.41 Metabolic encephalopathy; Z89.512 Acquired absence of left leg below knee; K86.81 Exocrine pancreatic insufficiency; J69.0 Pneumonitis due to inhalation of food and vomit; X58.XXXS Exposure to other specified factors, sequela; R57.8 Other shock; F41.8 Other specified anxiety disorders; L40.9 Psoriasis, unspecified; E87.2 Acidosis; F10.20 Alcohol dependence, uncomplicated; N17.9 Acute kidney failure, unspecified; F17.200 Nicotine dependence, unspecified, uncomplicated; T28.6XXA Corrosion of esophagus, initial encounter; K70.30 Alcoholic cirrhosis of liver without ascites

== ENCOUNTER 2020-01-18 11:10 | Inpatient (IN) ==
[2020-01-18] MEDS ORDERED: MULTI-VITAMIN INFUSION 10 ML, THIAMINE HCL 100 MG, FOLIC ACID 1 MG in SODIUM CHLORIDE 0... IV ONE (11:40)
[2020-01-18 11:49] LABS: Appearance Urine Clear (Clear); Bilirubin Urine Negative (Negative); Blood Urine Negative (Negative); Color Urine Yellow; Glucose Urine UA Negative (Negative); Ketones Urine Negative (Negative); Leukocyte Esterase Urine Negative (Negative); Nitrite Urine Negative (Negative); Protein Urine Negative (Negative); Specific Gravity Urine 1.012 (1.000-1.030); Urobilinogen Urine Negative (Negative)
--- NOTE | 2020-01-18 12:04 | XRay Report ---
SINGLE VIEW CHEST CLINICAL HISTORY: Sepsis. FINDINGS: An AP, portable, upright chest radiograph is compared to study dated 12/30/2019 and correlat ed with chest CT dated 12/28/2019. The cardiomediastinal silhouette is unremarkable. There is mild pat calvin consolidative change at the left lung base. This is almost completely cleared from 12/30/2019. No large pleural effusion or pneumothorax is seen. There are healed left-sided rib fractures. IMPRESSION: There is minimal patchy airspace consolidation at the left lung base. This is almost comp letely cleared from 12/30/2019. ACT 112: Negative or not required by law. Electronically signed by: Lauro Nj M.D. 01/18/2020 12:02 PM
--- NOTE | 2020-01-18 12:19 | Emergency Department Note ---
Impression & Plan Toxic metabolic encephalopathy, Alcohol intoxication delirium, Elevated lactic acid level, Dehydration ED Provider Note NAME: NANCY CORREA AGE: 54 SEX: F ARRIVES VIA: Ambulance INFORMANT: Patient, ED PROVIDER(S): Mathieu Umaña MD CHIEF COMPLAINT: Altered mental status PLAN: Disposition: Admit MEDICAL DECISION MAKING: The patient is a 54-year-old woman with a past medical history of alcohol abuse/dependence, insulin-dependent diabetes, alcoholic liver cirrhosis, chronic pancreatitis, history of blood loss anemia who presents emergency department for evaluation for confusion/altered mental status in the setting of not following up with a scheduled PCP appointment with a subsequent welfare check performed today which found the patient lying on the ground in her home for an unknown period of time. The patient is unable to explain why she was lying on the ground or how long she had been lying on the ground for. On arrival the patient is ill-appearing but no acute distress, afebrile stable vital signs. She is alert to self and place and is unable to answer any questions other than to say that she is "cold". She has no focal neuro deficits. Of note, I did speak with the patient's PCP, Dr. Madrid, over the phone who expressed concern about her recurrent episodes of becoming critically ill due to her alcohol intoxication. EKG without overt acute ischemia. Chest x-ray improved from prior. WBC, 3.7, nonspecific. H/H and platelets within normal limits though possibly reflect hemoconcentration given the patient's clinical dry appearance. VBG unremarkable with pH of 7.43. Glucose 177 with Chemistry without metabolic acidosis. Lactate 6.8 and serum osmolality 403 consistent with the patient's clinically dry appearance. There is no elevated osmolar gap. Therefore toxic alcohol ingestion is not likely. Moreover, the patient has no history or concerns for such an ingestion. AST 59 consistent with the patient's alcohol abuse. CPK within normal limits. Troponin negative/undetectable. TSH within normal limits. UA without evidence of infection. Blood alcohol is 372. Given the patient is afebrile without any infectious source elevated lactate and serum osmolality is most likely related to dehydration. Blood cultures were drawn however. This most likely related to a toxic/metabolic encephalopathy due to the patient's alcohol intoxication in addition to her severe dehydration/hemoconcentration. She is considered to be high risk for eventual alcohol withdrawal. Patient was provided with banana bag in addition to normal saline hydration. Case was discussed with CHAU Maki hospitalist, who will evaluate the patient for admission. Triage Nursing notes reviewed and agree them. Additional history obtained from PCP, Dr. Madrid. Prior medical records reviewed Vital Signs: reviewed and remarkable for no significant abnormalities Differential diagnosis: Infection, hypoglycemia, electrolyte abnormalities, overdose, toxicologic, cardiac sources, intracerebral event, neurologic, trauma, as well as other pathologies. ER treatment provided: See below. Diagnostics interpreted by me: ECG: Sinus tachycardia, 105 bpm, normal axis, no ectopy, no overt ST elevation or depression. Cardiac Monitoring: An order for cardiac monitoring was placed. Sinus tachycardia, 105 bpm, no ectopy. Laboratory studies: See below Imaging studies: HEAD CT NONCONTRAST CT DOSE: 537.48 mGy.cm HISTORY: Altered mental status. TECHNIQUE: Multiaxial CT images of the head were performed without the use of intravenous contrast. Automated exposure control was utilized for this study. A dose lowering technique was utilized adhering to the principles of ALARA. Comparison: Head CT 12/27/2019. Findings: The paranasal sinuses and mastoid air cells are clear. The calvarium and skull base are intact. The ventricles and sulci are within normal limits. There is no mass, hematoma, midline shift, or acute infarct. Impression: No acute intracranial abnormality. -- SINGLE VIEW CHEST CLINICAL HISTORY: Sepsis. FINDINGS: An AP, portable, upright chest radiograph is compared to study dated 12/30/2019 and correlated with chest CT dated 12/28/2019. The cardiomediastinal silhouette is unremarkable. There is mild patchy consolidative change at the left lung base. This is almost completely cleared from 12/30/2019. No large pleural effusion or pneumothorax is seen. There are healed left-sided rib fractures. IMPRESSION: There is minimal patchy airspace consolidation at the left lung base. This is almost completely cleared from 12/30/2019. Consultation(s): Case was discussed with CHAU Maki hospitalist, who will evaluate the patient for admission. HPI: The patient is a 54-year-old woman with a past medical history of alcohol abuse/dependence, insulin-dependent diabetes, alcoholic liver cirrhosis, chronic pancreatitis, history of blood loss anemia who presents emergency department for evaluation for confusion/altered mental status in the setting of not following up with a scheduled PCP appointment with a subsequent welfare check performed today which found the patient lying on the ground in her home for an unknown period of time. The patient is unable to explain why she was lying on the g round or how long she had been lying on the ground for. ROS: Review of systems is limited secondary to patient's altered mental status. PAST MEDICAL HISTORY:See Below PAST SURGICAL HISTORY:See Below FAMILY HISTORY:See Below SOCIAL HISTORY:See Below HOME MEDICATIONS:See Below ALLERGIES:See Below VITALS:See Below PHYSICAL EXAMINATION: GENERAL: Awake, alert, ill-appearing, in no distress HENT: Normocephalic, atraumatic. Oropharynx with dry mucous membranes and otherwise unremarkable. EYES: Normal conjunctiva. Sclera non-icteric. EOMI. No nystamgus. PEARRL. NECK: Supple. No nuchal rigidity. FROM. No JVD. RESPIRATORY: Clear to auscultation. CARDIAC: Tachycardic rate, normal rhythm. Extremities warm and well perfused. Pulses equal. ABDOMEN: Soft, non-distended. No tenderness to palpation. No rebound or guarding. No masses. RECTAL: Deferred. MUSCULOSKELETAL: Chest examination reveals no tenderness. The back is symmetrical on inspection without obvious abnormality. There is no CVA tenderness to palpation. No joint edema. LOWER EXTREMITIES: LLE BKA. No edema. No discoloration. NEURO: Normal sensorium. No sensory or motor deficits noted. Alert and oriented to self and place. Mildly slurred speech. SKIN: No rash or jaundice noted. Mathieu Umaña MD Past Med/Surg History Medical History Abnormal blood sugar A1C LEVELS FLUCTUATE Abnormal TSH Alcohol intoxication (Inactive) RESOLVED PER PATIENT Alcohol withdrawal seizure (Resolved) NOT REPORTED BY PATIENT AT TIME OF PAT CALL - LAST EPISODE OVER A YEAR AGO Anxiety (Chronic) Unable to establish regular follow-up with psychiatry Bimalleolar ankle fracture (Resolved) Bowel habit changes RESOLVED Chronic pancreatitis (Chronic) Cirrhosis of liver (Chronic) "COMPROMISED LIVER" Depression (Chronic) Unable to establish regular follow-up with psychiatry Diabetes mellitus (Chronic) TYPE 2 "SECONDARY" Encephalomalacia (Acute) Exocrine pancreatic insufficiency (Acute) History of alcohol consumption (Chronic) History of dizziness NOT CURRENTLY History of fracture TAILBONE - FLARES UP WITH WEATHER CHANGES Hydrosalpinx PT UNAWARE Hypothyroidism told this 10 yrs ago> no meds Insomnia IPMN (intraductal papillary mucinous neoplasm) Lipoma NECK Liver cirrhosis, alcoholic (Acute) Nausea & vomiting (Inactive) RESOLVED Neuropathy (Chronic) OF FOOT Nicotine dependence (Chronic) Pancreatic insufficiency (Chronic) Peripheral neuropathy (Acute) RESOLVING PER PATIENT Polycystic ovarian syndrome (Chronic) Psoriasis (Acute) SBO (small bowel obstruction) (Resolved) Resolved Vitamin D deficiency Surgical History Amputation of left lower extremity TO APPROX MID CALF History of ankle surgery 02/2019 left ankle ex fix, grade 2 view with MAC 3 and 7.0 ETT History of tooth extraction Family History Uncle Diabetes Mother Breast cancer Sister Breast cancer Father Prostate cancer Other Family history of breast cancer in mother Family history of breast cancer in sister Denies family history of Ovarian cancer Myocardial infarction Colorectal cancer Social History Preferred Language: Y[place]ut Communication Ability: Effective Visual Impairment: No Limitations Mobile Homes Repairer Required: No Beliefs That Will Affect Care: None marital status: marital status details: no children Current Living Situation: Alone current occupational status: disabled Other Information That Helps Us Care for You: No Feels Safe at Home: Yes Safety Concerns: Feels Safe At This Time Smoking Status: Current every day smoker Tobacco Type: cigarettes ; packs per day: 0.75 ; Cigarettes Per Day: 15 ; Do You Dip or Chew Tobacco: No ; Second Hand Exposure: No ; Tobacco Cessation Education Requested by Patient: No Hx Alcohol Use: Yes Alcohol type: wine Hx Substance Use: No Allergies Allergies Allergy/AdvReac Type Severity Reaction Status Date / Time haloperidol [From Haldol] AdvReac Unknown Verified 01/18/20 13:27 Home Meds Home Medications Medication Instructions Recorded Confirmed cholecalciferol (vitamin D3) 25 1,000 units PO HS 06/23/19 01/18/20 mcg (1,000 unit) capsule ferrous sulfate 325 mg (65 mg 325 mg PO Q OTHER DAY tab 06/23/19 01/18/20 iron) tablet,delayed release folic acid 400 mcg tablet 400 mcg PO HS 06/23/19 01/18/20 multivitamin 1 tab PO PM 06/23/19 01/18/20 cyanocobalamin (vitamin B-12) 1,000 mcg PO HS 08/12/19 01/18/20 [Vitamin B-12] clobetasol 1 appln TOP DAILY PRN 10/29/19 01/18/20 duloxetine [Cymbalta] 20 mg PO HS 11/05/19 01/18/20 clobetasol 1 appln TOP BID PRN 01/18/20 01/18/20 Previous Rx's Medication Instructions Recorded duloxetine 60 mg capsule,delayed 60 mg PO QAM #30 cap 08/30/19 release raevyu-kzpltjko-kclbajd 1 cap PO TID #90 cap 08/30/19 6,000-19,000-30,000 unit capsule,delayed rel buspirone 5 mg tablet 5 mg PO BID #60 tab 10/19/19 guselkumab 100 mg/mL subcutaneous See Rx Instructions .ROUTE 12/03/19 auto-injector .COMPLEX #1 milliliter nystatin 100,000 unit/gram topical 1 appln TOP TID #30 gm 12/17/19 ointment blood sugar diagnostic [OneTouch #10 ea 12/31/19 Verio] insulin lispro [Humalog KwikPen 1 units SQ ACHS #15 ml 12/31/19 Insulin] gabapentin 300 mg PO TID #90 cap 01/04/20 insulin glargine [Basaglar KwikPen 6 units SQ DAILY #15 ml 01/04/20 U-100 Insulin] metformin 500 mg PO DAILY #30 tab 01/04/20 pantoprazole [Protonix] 40 mg PO BID #60 tab 01/04/20 sucralfate 10 ml PO ACHS #420 ml 01/04/20 thiamine HCl (vitamin B1) [Vitamin 100 mg PO DAILY #30 tab 01/04/20 B-1] Results & Data (ED) Vital Signs Vital Signs - 24 hr 01/18/20 11:14 01/18/20 11:16 01/18/20 11:20 Temperature Temperature Source Pulse Rate 112 H 105 H 97 H Pulse Rate from SpO2 Sensor 112 H 107 H Pulse Rhythm Pulse Strength Respiratory Rate 25 H 14 13 Respiratory Effort / Characteristics Respiratory Depth Respiratory Pattern Blood Pressure 113/82 Blood Pressure Mean 98 Blood Pressure Position Pulse Oximetry 97 98 Oxygen Delivery Method Sepsis Recent Fever Within 48 Hours Sepsis New/Unexplained Change in Mental Status Sepsis Action Taken by Nursing 01/18/20 11:30 01/18/20 11:31 01/18/20 11:34 Temperature 36.5 C Temperature Source Oral Pulse Rate 92 H 114 H 107 H Pulse Rate from SpO2 Sensor Pulse Rhythm Regular Pulse Strength Normal Respiratory Rate 13 15 20 Respiratory Effort / Characteristics Non-Labored Spontaneous Respiratory Depth Normal Respiratory Pattern Regular Blood Pressure 129/90 113/82 Blood Pressure Mean 103 92 Blood Pressure Position Sitting Pulse Oximetry 97 Oxygen Delivery Method Room Air Sepsis Recent Fever Within 48 Hours No Sepsis New/Unexplained Change in Mental Status Yes Sepsis Action Taken by Nursing No Action Required 01/18/20 11:40 01/18/20 11:41 01/18/20 11:50 Temperature Temperature Source Pulse Rate 93 H 94 H Pulse Rate from SpO2 Sensor Pulse Rhythm Pulse Strength Respiratory Rate 14 12 Respiratory Effort / Characteristics Respiratory Depth Respiratory Pattern Blood Pressure Blood Pressure Mean Blood Pressure Position Pulse Oximetry 97 Oxygen Delivery Method Room Air Sepsis Recent Fever Within 48 Hours Sepsis New/Unexplained Change in Mental Status Sepsis Action Taken by Nursing 01/18/20 12:00 01/18/20 12:12 01/18/20 12:16 Temperature Temperature Source Pulse Rate 88 Pulse Rate from SpO2 Sensor 89 Pulse Rhythm Pulse Strength Respiratory Rate 20 8 L Respiratory Effort / Characteristics Respiratory Depth Respiratory Pattern Blood Pressure 97/78 L Blood Pressure Mean 84 107 Blood Pressure Position Pulse Oximetry 95 Oxygen Delivery Method Sepsis Recent Fever Within 48 Hours Sepsis New/Unexplained Change in Mental Status Sepsis Action Taken by Nursing 01/18/20 12:20 01/18/20 12:42 01/18/20 12:43 Temperature Temperature Source Pulse Rate 91 H 109 H 91 H Pulse Rate from SpO2 Sensor 91 H 91 H Pulse Rhythm Pulse Strength Respiratory Rate 14 5 L 12 Respiratory Effort / Characteristics Respiratory Depth Respiratory Pattern Blood Pressure 109/85 Blood Pressure Mean 96 Blood Pressure Position Pulse Oximetry 98 96 Oxygen Delivery Method Sepsis Recent Fever Within 48 Hours Sepsis New/Unexplained Change in Mental Status Sepsis Action Taken by Nursing 01/18/20 12:45 01/18/20 12:50 01/18/20 13:00 Temperature Temperature Source Pulse Rate 84 88 116 H Pulse Rate from SpO2 Sensor 86 88 114 H Pulse Rhythm Pulse Strength Respiratory Rate 14 13 12 Respiratory Effort / Characteristics Respiratory Depth Respiratory Pattern Blood Pressure 134/84 140/81 Blood Pressure Mean 93 98 Blood Pressure Position Pulse Oximetry 96 96 100 Oxygen Delivery Method Sepsis Recent Fever Within 48 Hours Sepsis New/Unexplained Change in Mental Status Sepsis Action Taken by Nursing 01/18/20 13:01 01/18/20 13:10 01/18/20 13:15 Temperature Temperature Source Pulse Rate 113 H 113 H 86 Pulse Rate from SpO2 Sensor 112 H Pulse Rhythm Pulse Strength Respiratory Rate 15 14 13 Respiratory Effort / Characteristics Respiratory Depth Respiratory Pattern Blood Pressure 139/93 Blood Pressure Mean 107 Blood Pressure Position Pulse Oximetry 100 Oxygen Delivery Method Sepsis Recent Fever Within 48 Hours Sepsis New/Unexplained Change in Mental Status Sepsis Action Taken by Nursing 01/18/20 13:20 01/18/20 13:30 01/18/20 13:31 Temperature Temperature Source Pulse Rate 103 H 88 94 H Pulse Rate from SpO2 Sensor 86 97 H Pulse Rhythm Pulse Strength Respiratory Rate 22 15 14 Respiratory Effort / Characteristics Respiratory Depth Respiratory Pattern Blood Pressure 140/89 Blood Pressure Mean 95 Blood Pressure Position Pulse Oximetry 97 95 Oxygen Delivery Method Sepsis Recent Fever Within 48 Hours Sepsis New/Unexplained Change in Mental Status Sepsis Action Taken by Nursing 01/18/20 13:40 01/18/20 13:45 01/18/20 13:50 Temperature Temperature Source Pulse Rate 114 H 106 H 117 H Pulse Rate from SpO2 Sensor 113 H 106 H 117 H Pulse Rhythm Pulse Strength Respiratory Rate 14 18 14 Respiratory Effort / Characteristics Respiratory Depth Respiratory Pattern Blood Pressure 135/99 Blood Pressure Mean 104 Blood Pressure Position Pulse Oximetry 96 100 100 Oxygen Delivery Method Sepsis Recent Fever Within 48 Hours Sepsis New/Unexplained Change in Mental Status Sepsis Action Taken by Nursing 01/18/20 14:00 01/18/20 14:01 01/18/20 14:10 Temperature Temperature Source Pulse Rate 109 H 101 H 105 H Pulse Rate from SpO2 Sensor Pulse Rhythm Pulse Strength Respiratory Rate 13 10 L 14 Respiratory Effort / Characteristics Respiratory Depth Respiratory Pattern Blood Pressure 111/91 Blood Pressure Mean 95 Blood Pressure Position Pulse Oximetry Oxygen Delivery Method Sepsis Recent Fever Within 48 Hours Sepsis New/Unexplained Change in Mental Status Sepsis Action Taken by Nursing Laboratory Data Attestation: I reviewed the patient's lab results. Result diagrams: 01/18/20 12:13 01/18/20 12:13 Lab Results 01/18/20 01/18/20 01/18/20 Range/Units 11:20 11:20 12:13 WBC (4.8-10.8) K/uL RBC (4.2-5.4) M/uL Hgb (12.0-16.0) g/dL Hct (37-47) % MCV (80-100) fL MCH (25-34) pg MCHC (32-36) g/dL RDW Std Deviation (36.4-46.3) fL RDW Coeff of Ethel (11.5-14.5) % Plt Count (130-400) K/uL MPV (7.4-10.4) fL Immature Gran % (Auto) % Neut % (Auto) % Lymph % (Auto) % [place] % (Auto) % Eos % (Auto) % Baso % (Auto) % Immature Gran # (Auto) (0.00-0.02) K/uL Neut # (Auto) (1.4-6.5) K/uL Lymph # (Auto) (1.2-3.4) K/uL [place] # (Auto) (0.11-0.59) K/uL Eos # (Auto) (0-0.5) K/uL Baso # (Auto) (0-0.2) K/uL PT (9.0-12.0) Seconds INR (0.9-1.1) APTT (21.0-31.0) Seconds PTT Ratio VBG pH (7.36-7.41) VBG pCO2 (38-50) mmHg VBG pO2 mmHg VBG HCO3 mmol/L VBG O2 Saturation % VBG Base Excess mEq/L Barometric Pressure mm/Hg Sodium (136-145) mmol/L Potassium (3.5-5.1) mmol/L Chloride (98-107) mmol/L Carbon Dioxide (21-32) mmol/L Anion Gap (3-11) BUN (7-18) mg/dl Creatinine (0.6-1.2) mg/dl Est Cr Clr Drug Dosing ml/min Est GFR ( Amer) Est GFR (Non-Af Amer) BUN/Creatinine Ratio (10-20) Glucose (70-99) mg/dl Osmolality (280-300) mOsm/kg Lactate (0.4-2.0) mmol/L Calcium (8.5-10.1) mg/dl Phosphorus (2.5-4.9) mg/dl Magnesium (1.8-2.4) mg/dl Total Bilirubin (0.2-1) mg/dl AST (15-37) U/L ALT (12-78) U/L Alkaline Phosphatase (45-117) U/L Ammonia (11-32) umol/L Total Creatine Kinase (26-192) U/L Troponin I (0-0.045) ng/ml Total Protein (6.4-8.2) gm/dl Albumin (3.4-5.0) gm/dl Globulin (2.5-4.0) gm/dl Albumin/Globulin Ratio (0.9-2) TSH (0.300-4.500) uIu/ml Urine Color Yellow Urine Appearance Clear (Clear) Urine pH 7.0 (4.5-7.5) Ur Specific [place] 1.012 (1.000-1.030) Urine Protein Negative (Negative) Urine Glucose (UA) Negative (Negative) Urine Ketones Negative (Negative) Urine Blood Negative (Negative) Urine Nitrite Negative (Negative) Urine Bilirubin Negative (Negative) Urine Urobilinogen Negative (Negative) Ur Leukocyte Esterase Negative (Negative) Urine Osmolality 356 L (500-800) mOsm/kg Ethyl Alcohol mg/dL (0-3) mg/dl Blood Type B Negative Antibody Screen NEGATIVE 01/18/20 01/18/20 01/18/20 Range/Units 12:13 12:13 12:13 WBC 3.76 L (4.8-10.8) K/uL RBC 4.84 (4.2-5.4) M/uL Hgb 14.0 (12.0-16.0) g/dL Hct 43.1 (37-47) % MCV 89.0 (80-100) fL MCH 28.9 (25-34) pg MCHC 32.5 (32-36) g/dL RDW Std Deviation 57.9 H (36.4-46.3) fL RDW Coeff of Ethel 17.8 H (11.5-14.5) % Plt Count 365 (130-400) K/uL MPV 9.0 (7.4-10.4) fL Immature Gran % (Auto) 0.0 % Neut % (Auto) 35.0 % Lymph % (Auto) 54.3 % [place] % (Auto) 6.4 % Eos % (Auto) 1.1 % Baso % (Auto) 3.2 % Immature Gran # (Auto) 0.00 (0.00-0.02) K/uL Neut # (Auto) 1.32 L (1.4-6.5) K/uL Lymph # (Auto) 2.04 (1.2-3.4) K/uL [place] # (Auto) 0.24 (0.11-0.59) K/uL Eos # (Auto) 0.04 (0-0.5) K/uL Baso # (Auto) 0.12 (0-0.2) K/uL PT 11.9 (9.0-12.0) Seconds INR 1.1 (0.9-1.1) APTT 23.6 (21.0-31.0) Seconds PTT Ratio 0.8 VBG pH (7.36-7.41) VBG pCO2 (38-50) mmHg VBG pO2 mmHg VBG HCO3 mmol/L VBG O2 Saturation % VBG Base Excess mEq/L Barometric Pressure mm/Hg Sodium 141 (136-145) mmol/L Potassium 3.9 (3.5-5.1) mmol/L Chloride 100 (98-107) mmol/L Carbon Dioxide 31 (21-32) mmol/L Anion Gap 10.0 (3-11) BUN 9 (7-18) mg/dl Creatinine 0.77 (0.6-1.2) mg/dl Est Cr Clr Drug Dosing 64.2 ml/min Est GFR ( Amer) 101.5 Est GFR (Non-Af Amer) 87.5 BUN/Creatinine Ratio 12.2 (10-20) Glucose 177 H (70-99) mg/dl Osmolality (280-300) mOsm/kg Lactate (0.4-2.0) mmol/L Calcium 8.2 L (8.5-10.1) mg/dl Phosphorus 4.2 (2.5-4.9) mg/dl Magnesium 2.1 (1.8-2.4) mg/dl Total Bilirubin 0.3 (0.2-1) mg/dl AST 59 H (15-37) U/L ALT 34 (12-78) U/L Alkaline Phosphatase 173 H (45-117) U/L Ammonia (11-32) umol/L Total Creatine Kinase 28 (26-192) U/L Troponin I < 0.015 (0-0.045) ng/ml Total Protein 6.8 (6.4-8.2) gm/dl Albumin 2.5 L (3.4-5.0) gm/dl Globulin 4.3 H (2.5-4.0) gm/dl Albumin/Globulin Ratio 0.6 L (0.9-2) TSH 2.810 (0.300-4.500) uIu/ml Urine Color Urine Appearance (Clear) Urine pH (4.5-7.5) Ur Specific [place] (1.000-1.030) Urine Protein (Negative) Urine Glucose (UA) (Negative) Urine Ketones (Negative) Urine Blood (Negative) Urine Nitrite (Negative) Urine Bilirubin (Negative) Urine Urobilinogen (Negative) Ur Leukocyte Esterase (Negative) Urine Osmolality (500-800) mOsm/kg Ethyl Alcohol mg/dL (0-3) mg/dl Blood Type Antibody Screen 01/18/20 01/18/20 01/18/20 Range/Units 12:13 12:13 12:13 WBC (4.8-10.8) K/uL RBC (4.2-5.4) M/uL Hgb (12.0-16.0) g/dL Hct (37-47) % MCV (80-100) fL MCH (25-34) pg MCHC (32-36) g/dL RDW Std Deviation (36.4-46.3) fL RDW Coeff of Ethel (11.5-14.5) % Plt Count (130-400) K/uL MPV (7.4-10.4) fL Immature Gran % (Auto) % Neut % (Auto) % Lymph % (Auto) % [place] % (Auto) % Eos % (Auto) % Baso % (Auto) % Immature Gran # (Auto) (0.00-0.02) K/uL Neut # (Auto) (1.4-6.5) K/uL Lymph # (Auto) (1.2-3.4) K/uL [place] # (Auto) (0.11-0.59) K/uL Eos # (Auto) (0-0.5) K/uL Baso # (Auto) (0-0.2) K/uL PT (9.0-12.0) Seconds INR (0.9-1.1) APTT (21.0-31.0) Seconds PTT Ratio VBG pH (7.36-7.41) VBG pCO2 (38-50) mmHg VBG pO2 mmHg VBG HCO3 mmol/L VBG O2 Saturation % VBG Base Excess mEq/L Barometric Pressure mm/Hg Sodium (136-145) mmol/L Potassium (3.5-5.1) mmol/L Chloride (98-107) mmol/L Carbon Dioxide (21-32) mmol/L Anion Gap (3-11) BUN (7-18) mg/dl Creatinine (0.6-1.2) mg/dl Est Cr Clr Drug Dosing ml/min Est GFR ( Amer) Est GFR (Non-Af Amer) BUN/Creatinine Ratio (10-20) Glucose (70-99) mg/dl Osmolality 403 H* (280-300) mOsm/kg Lactate 6.8 H* (0.4-2.0) mmol/L Calcium (8.5-10.1) mg/dl Phosphorus (2.5-4.9) mg/dl Magnesium (1.8-2.4) mg/dl Total Bilirubin (0.2-1) mg/dl AST (15-37) U/L ALT (12-78) U/L Alkaline Phosphatase (45-117) U/L Ammonia (11-32) umol/L Total Creatine Kinase (26-192) U/L Troponin I (0-0.045) ng/ml Total Protein (6.4-8.2) gm/dl Albumin (3.4-5.0) gm/dl Globulin (2.5-4.0) gm/dl Albumin/Globulin Ratio (0.9-2) TSH (0.300-4.500) uIu/ml Urine Color Urine Appearance (Clear) Urine pH (4.5-7.5) Ur Specific [place] (1.000-1.030) Urine Protein (Negative) Urine Glucose (UA) (Negative) Urine Ketones (Negative) Urine Blood (Negative) Urine Nitrite (Negative) Urine Bilirubin (Negative) Urine Urobilinogen (Negative) Ur Leukocyte Esterase (Negative) Urine Osmolality (500-800) mOsm/kg Ethyl Alcohol mg/dL 372.0 H (0-3) mg/dl Blood Type Antibody Screen 01/18/20 01/18/20 Range/Units 12:13 13:35 WBC (4.8-10.8) K/uL RBC (4.2-5.4) M/uL Hgb (12.0-16.0) g/dL Hct (37-47) % MCV (80-100) fL MCH (25-34) pg MCHC (32-36) g/dL RDW Std Deviation (36.4-46.3) fL RDW Coeff of Ethel (11.5-14.5) % Plt Count (130-400) K/uL MPV (7.4-10.4) fL Immature Gran % (Auto) % Neut % (Auto) % Lymph % (Auto) % [place] % (Auto) % Eos % (Auto) % Baso % (Auto) % Immature Gran # (Auto) (0.00-0.02) K/uL Neut # (Auto) (1.4-6.5) K/uL Lymph # (Auto) (1.2-3.4) K/uL [place] # (Auto) (0.11-0.59) K/uL Eos # (Auto) (0-0.5) K/uL Baso # (Auto) (0-0.2) K/uL PT (9.0-12.0) Seconds INR (0.9-1.1) APTT (21.0-31.0) Seconds PTT Ratio VBG pH 7.43 H (7.36-7.41) VBG pCO2 48 (38-50) mmHg VBG pO2 36 mmHg VBG HCO3 31 mmol/L VBG O2 Saturation < 60.0 % VBG Base Excess 5.9 mEq/L Barometric Pressure 733.7 mm/Hg Sodium (136-145) mmol/L Potassium (3.5-5.1) mmol/L Chloride (98-107) mmol/L Carbon Dioxide (21-32) mmol/L Anion Gap (3-11) BUN (7-18) mg/dl Creatinine (0.6-1.2) mg/dl Est Cr Clr Drug Dosing ml/min Est GFR ( Amer) Est GFR (Non-Af Amer) BUN/Creatinine Ratio (10-20) Glucose (70-99) mg/dl Osmolality (280-300) mOsm/kg Lactate (0.4-2.0) mmol/L Calcium (8.5-10.1) mg/dl Phosphorus (2.5-4.9) mg/dl Magnesium (1.8-2.4) mg/dl Total Bilirubin (0.2-1) mg/dl AST (15-37) U/L ALT (12-78) U/L Alkaline Phosphatase (45-117) U/L Ammonia < 10.0 L (11-32) umol/L Total Creatine Kinase (26-192) U/L Troponin I (0-0.045) ng/ml Total Protein (6.4-8.2) gm/dl Albumin (3.4-5.0) gm/dl Globulin (2.5-4.0) gm/dl Albumin/Globulin Ratio (0.9-2) TSH (0.300-4.500) uIu/ml Urine Color Urine Appearance (Clear) Urine pH (4.5-7.5) Ur Specific [place] (1.000-1.030) Urine Protein (Negative) Urine Glucose (UA) (Negative) Urine Ketones (Negative) Urine Blood (Negative) Urine Nitrite (Negative) Urine Bilirubin (Negative) Urine Urobilinogen (Negative) Ur Leukocyte Esterase (Negative) Urine Osmolality (500-800) mOsm/kg Ethyl Alcohol mg/dL (0-3) mg/dl Blood Type Antibody Screen Administered Medications Sodium Chloride (Nss 1000ml) 1,000 mls @ 125 mls/hr IV .Q8H ARPIT Stop: 01/19/20 06:29 Last Admin: 01/18/20 17:20 Dose: 125 mls/hr Documented by: [id number] Lorazepam (Ativan) 1 mg in 2 mls @ 2 mls/min IV ONE PRN; Protocol PRN Reason: EtoH Withdrawal AWSS 6-10 Stop: 02/17/20 15:58 Last Admin: 01/18/20 16:18 Dose: 2 mls/min Documented by: [id number] Sucralfate (Carafate Tab) 1 gm PO ACHS ARPIT Stop: 02/17/20 16:29 Last Admin: 01/18/20 17:27 Dose: 1 gm Documented by: [id number] Discontinued Medications Multivitamins 10 ml/ Thiamine HCl 100 mg/ Folic Acid 1 mg/Sodium Chloride 1,011.2 mls @ 1,011.2 mls/hr IV .Q1H ONE Stop: 01/18/20 12:39 Last Infusion: 01/18/20 14:16 Dose: 0 mls/hr Documented by: [id number] Admin: 01/18/20 12:11 Dose: 1,011.2 mls/hr Documented by: [id number] Sodium Chloride (Nss 1000ml) 1,000 mls @ 999 mls/hr IV .Q1H1M ONE Stop: 01/18/20 13:57 Last Infusion: 01/18/20 16:02 Dose: 0 mls/hr Documented by: [id number] Admin: 01/18/20 13:26 Dose: 999 mls/hr Documented by: [id number] Pantoprazole Sodium 40 mg/ (Syringe) 10 mls @ 5 mls/min IV 1430 ONE Stop: 01/18/20 14:31 Last Admin: 01/18/20 14:52 Dose: 5 mls/min Documented by: [id number] Sodium Chloride (Nss 1000ml) 1,000 mls @ 999 mls/hr IV .Q1H1M ONE Stop: 01/18/20 15:21 Last Infusion: 01/18/20 17:18 Dose: 0 mls/hr Documented by: [id number] Admin: 01/18/20 16:02 Dose: 999 mls/hr Documented by: [id number] Blood Pressure Blood Pressure Findings: Low blood pressure Discharge Plan Visit Data *Final* Discharge Date/Time: 01/18/20 15:44 Chief Complaint: Altered Mental Status ED Provider: Mathieu Umaña Discharge Problem: Toxic metabolic encephalopathy, Alcohol intoxication delirium, Elevated lactic acid level, Dehydration Patient Disposition: Admitted As Inpatient Discharge Instructions Interventions: ED Discharge Assessment Last Done: 01/18/20 15:44
[2020-01-18 12:25] LABS: Hematocrit (blood only) 43.1 % (37-47); Mean Corpuscular Hemoglobin 28.9 pg (25-34); Mean Corpuscular Hgb Conc 32.5 g/dL (32-36); Platelet Count 365 K/uL (130-400); RDW Coefficient of Variation 17.8 % (11.5-14.5); RDW Standard Deviation 57.9 fL (36.4-46.3); Red Blood Count 4.84 M/uL (4.2-5.4); White Blood Count 3.76 K/uL (4.8-10.8)
[2020-01-18 12:30] LABS: Base Excess VBG 5.9 mEq/L; HCO3 VBG 31 mmol/L; PCO2 VBG 48 mmHg (38-50); PO2 VBG 36 mmHg; pH VBG 7.43 (7.36-7.41)
[2020-01-18 12:31] LABS: Oxygen Saturation VBG < 60.0 %
--- NOTE | 2020-01-18 12:40 | CT Scan Report ---
HEAD CT NONCONTRAST CT DOSE: 537.48 mGy.cm HISTORY: Altered mental status. TECHNIQUE: Multiaxial CT images of the head were performed without the use of intravenous contrast. A utomated exposure control was utilized for this study. A dose lowering technique was utilized adheri ng to the principles of ALARA. Comparison: Head CT 12/27/2019. Findings: The paranasal sinuses and mastoid air cells are clear. The calvarium and skull base are int act. The ventricles and sulci are within normal limits. There is no mass, hematoma, midline shift, or acute infarct. Impression: No acute intracranial abnormality. ACT 112: Negative or not required by law. Electronically signed by: Delano Murry M.D. 01/18/2020 12:38 PM
[2020-01-18 12:47] LABS: Alanine Aminotransferase 34 U/L (12-78); Albumin Level 2.5 gm/dl (3.4-5.0); Aspartate Aminotransferase 59 U/L (15-37); BUN Creatinine Ratio 12.2 (10-20); Blood Urea Nitrogen 9 mg/dl (7-18); Calcium 8.2 mg/dl (8.5-10.1); Carbon Dioxide 31 mmol/L (21-32); Chloride 100 mmol/L (98-107); Creatinine Clr Calc Pharmacy 64.2 ml/min; Est GFR (African American) 101.5; Est GFR (Non-African American) 87.5; Glucose 177 mg/dl (70-99); INR 1.1 (0.9-1.1); Magnesium 2.1 mg/dl (1.8-2.4); Partial Thromboplastin Ratio 0.8; Partial Thromboplastin Time 23.6 Seconds (21.0-31.0); Potassium 3.9 mmol/L (3.5-5.1); Prothrombin Time 11.9 Seconds (9.0-12.0); Sodium 141 mmol/L (136-145)
[2020-01-18] MEDS ORDERED: SODIUM CHLORIDE 0.9% 1000ML 1,000 ML IV ONE ×2 (12:57→14:21)
[2020-01-18 12:58] LABS: Albumin Globulin Ratio 0.6 (0.9-2); Alkaline Phosphatase 173 U/L (45-117); Bilirubin,Total 0.3 mg/dl (0.2-1); Creatine Kinase 28 U/L (26-192); Globulin 4.3 gm/dl (2.5-4.0); Phosphorus 4.2 mg/dl (2.5-4.9); Total Protein 6.8 gm/dl (6.4-8.2); Troponin I < 0.015 ng/ml (0-0.045)
[2020-01-18 13:26] LABS: Basophils # (auto) 0.12 K/uL (0-0.2); Basophils % (auto) 3.2 %; Eosinophils # (auto) 0.04 K/uL (0-0.5); Eosinophils % (auto) 1.1 %; Lymphocytes # (auto) 2.04 K/uL (1.2-3.4); Lymphocytes % (auto) 54.3 %; Monocytes # (auto) 0.24 K/uL (0.11-0.59); Monocytes % (auto) 6.4 %; Neutrophils # (auto) 1.32 K/uL (1.4-6.5)
--- NOTE | 2020-01-18 13:35 | History & Physical Report ---
Date of Service January 18, 2020 Assessment & Plan (1) Toxic metabolic encephalopathy: Suspect secondary to alcohol intoxication with alcohol level 372. (2) Alcohol intoxication delirium: As above. No current withdrawal. AWSS as likely to go through withdrawal during admission. Lorazepam PRN dosing as per "at risk" order set. (3) Elevated lactic acid level: Not acidotic on venous pH. Suspected secondary to alcohol use. No suspicion of sepsis. (4) Dehydration: NSS 1L bolus given in ER. Addition 1L bolus now, then 125ml/hr. Noted sudden Hgb drop after admission on last occasion and suspect she is still anemic once rehydrated and will repeat CBC approx 7pm. (5) Diabetes mellitus type 2 in nonobese: HbA1C 14.9 in setting of GI bleed. Unclear if taking insulin @ home BSG ACHS with Novolog sliding scale. Will defer basal dosing at present given current nausea. (6) Chronic pancreatitis: No current abdominal pain. Will defer restarting pancreatic enzymes at present unless she develops abdominal pain associated with eating. No abdominal pain to suggest acute pancreatitis. Lipase pending. (7) History of GI bleed: Recent admission requiring 5 units packed RBCs with esophageal necrosis from alcohol intake. Patient is pale appearing on exam on admission however Hgb 14 (suspect somewhat hemoconcentrated from dehydration). Noted fast drop in Hgb on last admission therefore will repeat CBC this evening after IV hydration to know true Hgb value. Type and screened. (8) History of left below knee amputation: Patient reports wheelchair-bound but she most drags herself on her bottom around her house. (9) DVT prophylaxis: No chemical VTE prophylaxis given recent admission for large GI bleed requiring 5 units blood transfusion. If Hgb stable this should be reconsidered. SCDs Admission and Anticipated Discharge Date Admission Date: 01/18/2020 History of Present Illness Chief Complaint: Altered mental state Primary Care Provider: Ana Lilia Madrid MD Gem Chiu is a 54 year old female with alcohol use disorder who presents to the ER after found semi-conscious by EMS after a wellness check at home. The patient is speaking in full sentences, she is pleasant and co-operative but unable to provide a history of why she is here or what happened after she was recently discharged. She reports compliance with her medications although per EMS notes she told them she is unsure whether she has been taking anything for the past week. She reports she is here because of her divorce three years ago and she is depressed because of this. She denies any alcohol use despite discussing her positive alcohol level then changes her mind that she is unsure whether she has been. Her main concern is dryness in her mouth and she requests to get out of bed (despite it being high off the ground and patient is wheelchair-bound) and that she will drag herself to the bathroom as that is where the water is. When I say I will talk to her nurse to get her something to drink she tells me I am lying She reports feeling safe to be discharged home although clearly lacks capacity to make that decision at present as unable to tell me anything about being here or what the risks are of going home. I spoke to her mother as unable to get a history from patient and her mother reports ever since she was discharged at the end of December she has not been in contact with the patient as she does not answer her phone and has been locking her door. She suspects she has been drinking alcohol since discharge but unable to confirm this. Allergies Allergy/AdvReac Type Severity Reaction Status Date / Time haloperidol [From Haldol] AdvReac Unknown Verified 01/18/20 13:27 Home Medications Home Medications Medication Instructions Recorded Confirmed Type cholecalciferol (vitamin D3) 25 1,000 units PO HS 06/23/19 01/18/20 History mcg (1,000 unit) capsule ferrous sulfate 325 mg (65 mg 325 mg PO Q OTHER DAY tab 06/23/19 01/18/20 History iron) tablet,delayed release folic acid 400 mcg tablet 400 mcg PO HS 06/23/19 01/18/20 History multivitamin 1 tab PO PM 06/23/19 01/18/20 History cyanocobalamin (vitamin B-12) 1,000 mcg PO HS 08/12/19 01/18/20 History [Vitamin B-12] duloxetine 60 mg capsule,delayed 60 mg PO QAM #30 cap 08/30/19 01/18/20 Rx release ubzrlx-xdhnitdj-xfzjepz 1 cap PO TID #90 cap 08/30/19 01/18/20 Rx 6,000-19,000-30,000 unit capsule,delayed rel buspirone 5 mg tablet 5 mg PO BID #60 tab 10/19/19 01/18/20 Rx clobetasol 1 appln TOP DAILY PRN 10/29/19 01/18/20 History duloxetine [Cymbalta] 20 mg PO HS 11/05/19 01/18/20 History guselkumab 100 mg/mL subcutaneous See Rx Instructions .ROUTE 12/03/19 01/18/20 Rx auto-injector .COMPLEX #1 milliliter nystatin 100,000 unit/gram topical 1 appln TOP TID #30 gm 12/17/19 01/18/20 Rx ointment blood sugar diagnostic [OneTouch #10 ea 12/31/19 01/07/20 Rx Verio] insulin lispro [Humalog KwikPen 1 units SQ ACHS #15 ml 12/31/19 01/18/20 Rx Insulin] gabapentin 300 mg PO TID #90 cap 01/04/20 01/18/20 Rx insulin glargine [Basaglar KwikPen 6 units SQ DAILY #15 ml 01/04/20 01/18/20 Rx U-100 Insulin] metformin 500 mg PO DAILY #30 tab 01/04/20 01/18/20 Rx pantoprazole [Protonix] 40 mg PO BID #60 tab 01/04/20 01/18/20 Rx sucralfate 10 ml PO ACHS #420 ml 01/04/20 01/18/20 Rx thiamine HCl (vitamin B1) [Vitamin 100 mg PO DAILY #30 tab 01/04/20 01/18/20 Rx B-1] clobetasol 1 appln TOP BID PRN 01/18/20 01/18/20 History Past Med/Surg History Medical History Abnormal blood sugar A1C LEVELS FLUCTUATE Abnormal TSH Alcohol intoxication (Inactive) RESOLVED PER PATIENT Alcohol withdrawal seizure (Resolved) NOT REPORTED BY PATIENT AT TIME OF PAT CALL - LAST EPISODE OVER A YEAR AGO Anxiety (Chronic) Unable to establish regular follow-up with psychiatry Bimalleolar ankle fracture (Resolved) Bowel habit changes RESOLVED Chronic pancreatitis (Chronic) Cirrhosis of liver (Chronic) "COMPROMISED LIVER" Depression (Chronic) Unable to establish regular follow-up with psychiatry Diabetes mellitus (Chronic) TYPE 2 "SECONDARY" Encephalomalacia (Acute) Exocrine pancreatic insufficiency (Acute) History of alcohol consumption (Chronic) History of dizziness NOT CURRENTLY History of fracture TAILBONE - FLARES UP WITH WEATHER CHANGES Hydrosalpinx PT UNAWARE Hypothyroidism told this 10 yrs ago> no meds Insomnia IPMN (intraductal papillary mucinous neoplasm) Lipoma NECK Liver cirrhosis, alcoholic (Acute) Nausea & vomiting (Inactive) RESOLVED Neuropathy (Chronic) OF FOOT Nicotine dependence (Chronic) Pancreatic insufficiency (Chronic) Peripheral neuropathy (Acute) RESOLVING PER PATIENT Polycystic ovarian syndrome (Chronic) Psoriasis (Acute) SBO (small bowel obstruction) (Resolved) Resolved Vitamin D deficiency Surgical History Amputation of left lower extremity TO APPROX MID CALF History of ankle surgery 02/2019 left ankle ex fix, grade 2 view with MAC 3 and 7.0 ETT History of tooth extraction Family History Uncle Diabetes Mother Breast cancer Sister Breast cancer Father Prostate cancer Other Family history of breast cancer in mother Family history of breast cancer in sister Denies family history of Ovarian cancer Myocardial infarction Colorectal cancer Social History Preferred Language: Mohawk Communication Ability: Effective Visual Impairment: No Limitations Disk Recoater Required: No Beliefs That Will Affect Care: None marital status: marital status details: no children Current Living Situation: Alone current occupational status: disabled Other Information That Helps Us Care for You: No Feels Safe at Home: Yes Safety Concerns: Feels Safe At This Time Smoking Status: Current every day smoker Tobacco Type: cigarettes ; packs per day: 0.75 ; Cigarettes Per Day: 15 ; Do You Dip or Chew Tobacco: No ; Second Hand Exposure: No ; Tobacco Cessation Education Requested by Patient: No Hx Alcohol Use: Yes Alcohol type: wine Hx Substance Use: No Review of Systems Review of Systems: All systems reviewed & are unremarkable except as noted in HPI & below Physical Exam Constitutional: well developed, + frail appearing and cooperative; + not well nourished and no acute distress Pale appearing Eyes: + conjunctival abnormality (pale), + anicteric sclerae and + nystagmus (mild on left lateral gaze, denies diplopia); normal pupil size ENMT: Ears: no external ear abnormality Nose: no external nose abnormality Respiratory: normal respiratory effort, lungs clear to auscultation Cardiovascular: Rate/Rhythm: regular rhythm and + tachycardic Heart Sounds: no murmur Extremities: normal capillary refill; no calf tenderness and no pedal edema Gastrointestinal (Abdomen): normal bowel sounds, soft, nontender, no hepatosplenomegaly Musculoskeletal: Left below knee amputation noted, well healed Skin: no rashes, warm and dry skin peeling on right hand with multiple ecchymotic circular rashes Neurologic: moves all extremities and awake; not confused (but not making much sense) Speech / Cognition: normal speech Motor/Sensory: + asterixis; no tremor and no sensory deficit Psychiatric: Orientation: alert, oriented x 3 and cooperative Apperance: + disheveled Eye Contact: + fair eye contact Motor Behavior: no abnormal motor movements Speech: normal rate/rhythm/volume of speech Affect: + anxious affect Mood: + anxious mood and + irritable mood Genitourinary: no CVA tenderness Lymphatic: no cervical or axillary lymphadenopathy Results & Data Results & Data ([facility]) Vital Signs (Past 12 Hours) Vital Signs Temp Pulse Resp BP Pulse Ox 01/18/20 12:20 91 H 14 98 01/18/20 12:16 88 8 L 95 01/18/20 12:12 20 01/18/20 12:00 97/78 L 01/18/20 11:50 94 H 12 01/18/20 11:41 97 01/18/20 11:40 93 H 14 01/18/20 11:34 36.5 C 107 H 20 113/82 97 01/18/20 11:31 114 H 15 01/18/20 11:30 92 H 13 129/90 01/18/20 11:20 97 H 13 01/18/20 11:16 105 H 14 98 01/18/20 11:14 112 H 25 H 113/[address] NONCONTRAST Impression: No acute intracranial abnormality SINGLE VIEW CHEST IMPRESSION: There is minimal patchy airspace consolidation at the left lung base. This is almost completely cleared from 12/30/2019. ECG Indication: altered mental status Rate (beats per minute): 105 Rhythm: sinus tachycardia Findings: no acute ischemic change Comparison ECG Date: from (01/01/2020) Change: no significant change Code Status & VTE Plan Code Status Full as discussed with the patient VTE Prophylaxis Plan VTE Prophylaxis will be ordered: Yes PG Care Time/CCT Total # of Minutes Spent Total Time Spent with Patient: Total time spent is greater than 50% in coordination of care (as documented) at patient's floor/unit and/or counseling patient: Coding Level of Care Code 78819 Initial Inpt Care Lvl 3 Diagnoses Toxic metabolic encephalopathy G92 Alcohol intoxication delirium F10.121 Elevated lactic acid level R79.89 Dehydration E86.0 Diabetes mellitus type 2 in nonobese E11.9 Chronic pancreatitis K86.0 Pancreatitis type: alcohol induced History of GI bleed Z87.19 History of left below knee amputation Z89.512 DVT prophylaxis Z29.9 (1) Chronic pancreatitis Pancreatitis type: alcohol induced Qualified Code(s): K86.0 - Alcohol-induced chronic pancreatitis
[2020-01-18] MEDS ORDERED: PANTOprazole 40 MG in SYRINGE 0 ML IV ONE (14:30)
[2020-01-18] MEDS ORDERED: LORazepam 1 MG/2 ML VIAL IV PRN (15:59)
[2020-01-18] MEDS ORDERED: ONDANSETRON INJ 2 MG/ML 2 ML VIAL IV PRN (15:59)
--- NOTE | 2020-01-18 16:13 | Electrocardiogram Report ---
Test Reason : Blood Pressure : / mmHG Vent. Rate : 105 BPM Atrial Rate : 105 BPM P-R Int : 142 ms QRS Dur : 064 ms QT Int : 354 ms P-R-T Axes : 079 071 079 degrees QTc Int : 467 ms Sinus tachycardia Otherwise normal ECG When compared with ECG of 01-JAN-2020 09:00, Non-specific change in ST segment in Inferior leads Nonspecific T wave abnormality no longer evident in Inferior leads T wave inversion no longer evident in Anterior leads Confirmed by Uche Reid ([id number]) on 01/18/2020 4:12:45 PM Referred By: ED Confirmed By:Uche Reid
[2020-01-18] MEDS: SODIUM CHLORIDE 0.9% 1000ML 1,000 ML IV SCH (17:20)
[2020-01-18] MEDS: SUCRALFATE 1 GM TAB PO SCH ×2 (17:27→20:14)
[2020-01-18] MEDS ORDERED: chlordiazePOXIDE ALCOHOL WITHDRAWL 50MG PO STA (17:56)
[2020-01-18] MEDS ORDERED: chlordiazePOXIDE HCl 25 MG CAP PO SCH (18:00)
[2020-01-18] MEDS ORDERED: GLUCAGON FOR INJ 1 MG VIAL SQ PRN (18:01)
[2020-01-18] MEDS ORDERED: GLUCOSE 10 TABS/TUBE PO PRN (18:01)
[2020-01-18] MEDS ORDERED: DEXTROSE 50% 50 ML SYRINGE IV PRN (18:01)
[2020-01-18] MEDS ORDERED: GLUCOSE 40% GEL 15 GM TUBE PO PRN (18:01)
[2020-01-18] MEDS: CHLORDIAZEPOXIDE 50MG STARTING DOSE PO SCH ×2 (18:49→23:08)
[2020-01-18 19:16] LABS: Hematocrit (blood only) 33.9 % (37-47); Hemoglobin 11.2 g/dL (12.0-16.0); Mean Corpuscular Hemoglobin 29.4 pg (25-34); Mean Platelet Volume 8.5 fL (7.4-10.4); Platelet Count 231 K/uL (130-400); RDW Coefficient of Variation 17.7 % (11.5-14.5); RDW Standard Deviation 57.7 fL (36.4-46.3); Red Blood Count 3.81 M/uL (4.2-5.4); White Blood Count 4.67 K/uL (4.8-10.8)
[2020-01-18 19:41] LABS: Albumin Globulin Ratio 0.6 (0.9-2); Bilirubin,Total 0.4 mg/dl (0.2-1); Calcium 6.8 mg/dl (8.5-10.1); Creatinine Clr Calc Pharmacy 68.7 ml/min; Est GFR (Non-African American) 94.9; Globulin 3.5 gm/dl (2.5-4.0); Potassium 3.4 mmol/L (3.5-5.1); Total Protein 5.5 gm/dl (6.4-8.2)
[2020-01-18] MEDS: DULOXETINE HCL 20 MG CAP PO SCH (20:15)
[2020-01-18] MEDS: CYANOCOBALAMIN 500 MCG TABLET (VITAMIN B-12) PO SCH (20:15)
[2020-01-18] MEDS: PANTOprazole 40 MG TAB PO SCH (20:16)
[2020-01-18] MEDS: FOLIC ACID 400 MCG TAB PO SCH (20:17)
[2020-01-18] MEDS: MULTIVITAMIN TAB PO SCH (20:17)
[2020-01-18] MEDS: CHOLECALCIFEROL 1,000 UNITS 25 MCG TAB PO SCH (20:18)
[2020-01-18] MEDS: GABAPENTIN 300 MG CAP PO SCH (20:19)
[2020-01-18] MEDS ORDERED: PROMETHAZINE HCL 12.5 MG in SODIUM CHLORIDE 0.9% 50 ML IV PRN (20:26)
[2020-01-18] MEDS ORDERED: CALCIUM GLUCONATE 10% 1,000 MG in SODIUM CHLORIDE 0.9% 50 ML IV ONE (20:30)
[2020-01-18] MEDS ORDERED: PHARMACY GLYCEMIC MGMT CONSULT PRN (20:38)
[2020-01-18] MEDS: INSULIN ASPART 100 UNITS/ML 3 ML PEN SC SCH (20:46)
[2020-01-18] MEDS ORDERED: POTASSIUM CHLORIDE 20 MEQ TABCR PO ONE (21:00)
[2020-01-18] MEDS ORDERED: INSULIN GLARGINE SOLOSTAR 100 UNITS/ML 3 ML PEN SC ONE (21:45)
--- NOTE | 2020-01-18 21:46 | Pharmacy Report ---
Glycemic Control Consultation - Date of Service January 18, 2020 - Scope Scope: Glycemic Pharmacist consulted for glycemic control and to write orders per [facility] inpatient glycemic control protocol. - Objective Weight: 48.7 kg Accuchecks BSG (last 24hrs): 01/18/20 01/18/20 01/18/20 12:13 16:34 19:05 Glucose 177 H 226 H POC Glucose 156 H 01/18/20 20:09 Glucose POC Glucose 270 H Laboratory Data (last 24hrs): 01/18/20 01/18/20 01/18/20 12:13 12:13 19:05 Potassium 3.9 3.4 L Carbon Dioxide 31 21 Anion Gap 10.0 8.0 Creatinine 0.77 0.72 Est Cr Clr Drug Dosing 64.2 68.7 Osmolality 403 H* - Recent Pertinent Medications Outpatient Anti-diabetic Regimen: * Lantus 4 units daily, humalog 2 units QID - per report from patient * A1c = 14.9 % 12/27/19 Risk Factors for Insulin Resistance: * Diet: clears - Assessment & Plan Assessment & Plan: ASSESSMENT: * 54 year old with alcohol intoxication delirium, dehydration, type 2 diabetes. Pharmacy consulted for glycemic management. Known to glycemic service from 12/26 admission. * Per report from nurse, patient has not taken any insulin today. BSG is 270 mg/dL at time of consult - will utilize similar novolog/lantus dosing from past admission. Per report for nurse, patient denies any nausea at this time. Patient confirms above dosing for insulin at home. Per provider report concern for compliance with medications. PLAN FOR INPATIENT GLYCEMIC CONTROL: * Basal insulin * Lantus 10 units x 1 now * Bolus insulin * NovoLog per scale ACHS or Q6hrs while NPO * Goal Range: Low 120 mg/dL - High 160 mg/dL * Correction Factor: 45 mg/dL/unit * Nutritional / Prandial insulin per carb ratio of 1 unit per 12 grams CHO consumed * Please note that the plan above was derived based on current level of insulin resistance and hospital stress. These recommendations are appropriate for inpatient admission only. Plan of care upon discharge will need to be reassessed to avoid potential outpatient hypo/hyperglycemia. Thank you.
[2020-01-18] MEDS ORDERED: ACETAMINOPHEN 500 MG TAB PO PRN (22:36)
[2020-01-18] MEDS ORDERED: KETOROLAC TROMETHAMINE 15 MG/ML VIAL IV ONE (22:38)
[2020-01-19] MEDS: INSULIN ASPART 100 UNITS/ML 3 ML PEN SC SCH ×6 (00:04→22:04)
[2020-01-19] MEDS: CARBOHYDRATES FOR HYPOGLYCEMIA PO PRN ×2 (00:06→07:30)
[2020-01-19] MEDS: SODIUM CHLORIDE 0.9% 1000ML 1,000 ML IV SCH (01:03)
[2020-01-19] MEDS: CHLORDIAZEPOXIDE 50MG STARTING DOSE PO SCH ×2 (05:50→13:30)
[2020-01-19 06:55] LABS: Basophils # (auto) 0.01 K/uL (0-0.2); Basophils % (auto) 0.3 %; Eosinophils # (auto) 0.16 K/uL (0-0.5); Eosinophils % (auto) 4.7 %; Hematocrit (blood only) 30.8 % (37-47); Lymphocytes # (auto) 1.54 K/uL (1.2-3.4); Lymphocytes % (auto) 45.6 %; Mean Corpuscular Hemoglobin 29.3 pg (25-34); Mean Corpuscular Hgb Conc 32.5 g/dL (32-36); Mean Corpuscular Volume 90.3 fL (80-100); Mean Platelet Volume 8.8 fL (7.4-10.4); Monocytes # (auto) 0.21 K/uL (0.11-0.59); Monocytes % (auto) 6.2 %; Neutrophils # (auto) 1.46 K/uL (1.4-6.5); Neutrophils % (auto) 43.2 %; Platelet Count 165 K/uL (130-400); RDW Coefficient of Variation 17.7 % (11.5-14.5); RDW Standard Deviation 58.5 fL (36.4-46.3); Red Blood Count 3.41 M/uL (4.2-5.4); White Blood Count 3.38 K/uL (4.8-10.8)
[2020-01-19 07:26] LABS: Albumin Level 1.8 gm/dl (3.4-5.0); BUN Creatinine Ratio 7.9 (10-20); Calcium 7.4 mg/dl (8.5-10.1); Creatinine Clr Calc Pharmacy 81.7 ml/min; Est GFR (African American) 114.9; Est GFR (Non-African American) 99.2; Magnesium 1.5 mg/dl (1.8-2.4); Potassium 3.6 mmol/L (3.5-5.1)
[2020-01-19 07:36] LABS: Albumin Globulin Ratio 0.6 (0.9-2); Bilirubin,Total 0.7 mg/dl (0.2-1); Globulin 2.9 gm/dl (2.5-4.0); Phosphorus 2.5 mg/dl (2.5-4.9); Total Protein 4.7 gm/dl (6.4-8.2)
[2020-01-19] MEDS: PANTOprazole 40 MG TAB PO SCH ×2 (08:08→21:08)
[2020-01-19] MEDS: SUCRALFATE 1 GM TAB PO SCH ×4 (08:08→21:10)
[2020-01-19] MEDS: DULOXETINE HCL 60 MG CAP PO SCH (08:09)
[2020-01-19] MEDS: THIAMINE HCL 100 MG TAB PO SCH (08:09)
[2020-01-19] MEDS: GABAPENTIN 300 MG CAP PO SCH ×3 (08:09→21:08)
[2020-01-19] MEDS: FERROUS SULFATE 325 MG TAB PO SCH (08:09)
--- NOTE | 2020-01-19 10:29 | Communication Note ---
Date of Service: January 19, 2020 GI note: Pt is a 54 y/o female admitted yesterday for AMS, likely related to ETOH intoxication. She was scheduled previously for repeat outpt EGD on 2019 to re-eval necrotic esophagitis, GEJ ulcer diagnosed on 12/28/2019. I spoke w pt and hospitalist - pt is willing to stay one more night and proceed with originally planned EGD tomorrow by Dr. Dodson while inpt. Please continue current doses of Protonix and Sulcrafate. Keep her NPO after midnight. Monitor for DTs
[2020-01-19] MEDS: MAGNESIUM SULFATE / D5W 1 GM/100 ML BAG IV SCH ×3 (10:45→13:35)
--- NOTE | 2020-01-19 11:54 | Hospitalist Progress Note ---
Date of Service January 19, 2020 Assessment & Plan (1) Alcohol intoxication delirium: Presented in toxic metabolic encephalopathy due to alcohol intoxication Mental status had cleared by 01/18. - AWSS as likely to go through withdrawal during admission. Lorazepam PRN dosing as per "at risk" order set -> No present withdrawals. - Will encourage cessation and provide any accepted resources as alcoholism is driving the large part of her medical issues at this time. (2) Diabetes mellitus type 2 in nonobese: HbA1C was 14.9% in setting of GI bleed. Unclear if taking insulin at home. - BSG ACHS with Novolog sliding scale. - Will defer basal dosing to DM pharmacist. - This morning, she was hypoglycemic. Will try to adjust insulin. (3) Chronic pancreatitis: No current abdominal pain. Will defer restarting pancreatic enzymes at present unless she develops abdominal pain associated with eating. - Holding at present. 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 - Plan for repeat EGD tomorrow with GI. Discussed with [facility] [employer]. - Monitor hgb -> Down to 10 today, but no evidence of ongoing bleeding. Likely hemodilutional from her dehydration. 10.0 is actually better than her discharge level 2 weeks ago. (5) History of left below knee amputation: Patient reports wheelchair-bound but she most drags herself on her bottom around her house. - Declined rehab stay last admission; will discuss with her again, though today she was interested in returning home. (6) DVT prophylaxis: No chemical VTE prophylaxis given recent admission for large GI bleed requiring 5 units blood transfusion. If Hgb stable this should be reconsidered. - SCDs Admission and Anticipated Discharge Date Admission Date: January 18, 2020 Subjective Hungry this morning. Has some leg pain that is chronic and neuropathic in nature. Reports no fevers/chills, chest pain, shortness of breath, abdominal pain, nausea, or vomiting. Physical Exam Constitutional: WD/WN, vitals as above Eyes: EOM intact bilaterally; no conjunctival abnormality ENMT: external ear and nose normal, oropharynx normal Neck: trachea midline, no thyromegaly normal visual inspection Respiratory: normal respiratory effort, lungs clear to auscultation no respiratory distress Cardiovascular: RRR, no murmur, no edema Gastrointestinal (Abdomen): Inspection/Auscultation: abdomen normal to inspection; abdomen not distended Musculoskeletal: Extremities: + extremities abnormal to inspection (Right BKA) Skin: no rashes, warm and dry Neurologic: moves all extremities and awake Psychiatric: Orientation: alert, oriented to person and cooperative Results & Data Results & Data ([facility]) Vital Signs (Past 12 Hours) Vital Signs Temp Pulse Pulse Resp BP Pulse Ox 01/19/20 11:40 37.1 C 100 H 18 160/100 H 100 01/19/20 07:49 96 H 01/19/20 07:36 37.1 C 99 H 20 151/84 H 96 01/19/20 04:30 36.8 C 105 H 18 126/82 96 PG Care Time/CCT Total # of Minutes Spent Total Time Spent with Patient: Total time spent is greater than 50% in coordination of care (as documented) at patient's floor/unit and/or counseling patient: Coding Level of Care Code 26250 Subseq Hosp Care Lvl 3 Diagnoses Alcohol intoxication delirium F10.121 Diabetes mellitus type 2 in nonobese E11.9 Chronic pancreatitis K86.0 Pancreatitis type: alcohol induced History of GI bleed Z87.19 History of left below knee amputation Z89.512 DVT prophylaxis Z29.9 (1) Chronic pancreatitis Pancreatitis type: alcohol induced Qualified Code(s): K86.0 - Alcohol-induced chronic pancreatitis
--- NOTE | 2020-01-19 13:24 | Pharmacy Report ---
Pharmacy Glycemic Short Note 2 - Date of Service January 19, 2020 - Glycemic Short BSG Results (Last 24 hours): 01/18/20 01/18/20 01/18/20 16:34 19:05 20:09 Glucose 226 H POC Glucose 156 H 270 H 01/19/20 01/19/20 01/19/20 00:00 00:21 04:04 Glucose POC Glucose 59 L* 77 74 01/19/20 01/19/20 01/19/20 06:18 07:25 07:26 Glucose 55 L POC Glucose 58 L* 59 L* 01/19/20 01/19/20 07:49 11:37 Glucose POC Glucose 120 H 94 Outpatient Anti-diabetic Regimen: * Lantus 4 units daily * Humalog 2 units QID - per report from patient * A1c = 14.9 % 12/27/19 ASSESSMENT: 01/19/20: * Ms Chiu was hypoglycemic overnight, with BSGs in the 50's. BSGs have been okay thus far today. * Carb ratio loosened to provide less prandial coverage, and will dose Lantus conservatively tonight based on BSG. 01/18/20 * 54 year old with alcohol intoxication delirium, dehydration, type 2 diabetes. Pharmacy consulted for glycemic management. Known to glycemic service from admission. * Per report from nurse, patient has not taken any insulin today. BSG is 270 mg/dL at time of consult - will utilize similar novolog/lantus dosing from past admission. Per report for nurse, patient denies any nausea at this time. Patient confirms above dosing for insulin at home. Per provider report concern for compliance with medications. PLAN FOR INPATIENT GLYCEMIC CONTROL: * Basal insulin * Lantus per scale qHS: for BSG less than 150mg/dL: give 0 units for BSG 150mg/dL or greater: give 4 units * Bolus insulin * NovoLog per scale ACHS or Q6hrs while NPO * Goal Range: Low 120 mg/dL - High 160 mg/dL * Correction Factor: 45 mg/dL/unit * Nutritional / Prandial insulin per carb ratio of 1 unit per 15 grams CHO consumed PLAN FOR DISCHARGE: * pending insulin requirements during admission
[2020-01-19] MEDS: CYANOCOBALAMIN 500 MCG TABLET (VITAMIN B-12) PO SCH (21:07)
[2020-01-19] MEDS: FOLIC ACID 400 MCG TAB PO SCH (21:10)
[2020-01-19] MEDS: DULOXETINE HCL 20 MG CAP PO SCH (21:10)
[2020-01-19] MEDS: CHOLECALCIFEROL 1,000 UNITS 25 MCG TAB PO SCH (21:11)
[2020-01-19] MEDS: MULTIVITAMIN TAB PO SCH (21:11)
[2020-01-19] MEDS: CHLORDIAZEPOXIDE 50MG 2ND DOSE PO SCH (21:12)
[2020-01-19] MEDS: INSULIN GLARGINE SOLOSTAR 100 UNITS/ML 3 ML PEN SC SCH (22:03)
[2020-01-20] MEDS: CHLORDIAZEPOXIDE 50MG 2ND DOSE PO SCH ×2 (05:10→13:16)
[2020-01-20 07:06] LABS: Hematocrit (blood only) 33.3 % (37-47); Hemoglobin 10.8 g/dL (12.0-16.0); Mean Corpuscular Hemoglobin 29.1 pg (25-34); Mean Corpuscular Hgb Conc 32.4 g/dL (32-36); Mean Corpuscular Volume 89.8 fL (80-100); Mean Platelet Volume 8.9 fL (7.4-10.4); Platelet Count 128 K/uL (130-400); RDW Standard Deviation 55.9 fL (36.4-46.3); Red Blood Count 3.71 M/uL (4.2-5.4); White Blood Count 4.98 K/uL (4.8-10.8)
[2020-01-20 07:35] LABS: Albumin Level 1.9 gm/dl (3.4-5.0); BUN Creatinine Ratio 4.3 (10-20); Calcium 7.8 mg/dl (8.5-10.1); Creatinine Clr Calc Pharmacy 82.9 ml/min; Est GFR (African American) 115.5; Est GFR (Non-African American) 99.7; Magnesium 1.9 mg/dl (1.8-2.4); Potassium 3.3 mmol/L (3.5-5.1)
[2020-01-20 07:38] LABS: Albumin Globulin Ratio 0.6 (0.9-2); Bilirubin,Total 0.8 mg/dl (0.2-1); Globulin 3.3 gm/dl (2.5-4.0); Phosphorus 2.9 mg/dl (2.5-4.9); Total Protein 5.2 gm/dl (6.4-8.2)
[2020-01-20] MEDS: INSULIN ASPART 100 UNITS/ML 3 ML PEN SC SCH ×4 (07:50→22:01)
--- NOTE | 2020-01-20 08:18 | Anesthesiology Consultation ---
Date of Service January 20, 2020 Assessment & Plan (1) Encounter for pre-operative examination: Chart Review Chart Review: Acceptable Risk for Surgery and Patient NOT seen in Pre Admission Testing Consults Requested none ASA ASA4 Proposed Anesthesia Anesthesia Type: MAC Risk / Benefits Reviewed With: PT / POA / Parent / Guardian, Accepts Plan and Informed Consent Obtained History Surgery Operation Date: 01/20/20 08:30 Proposed Procedures p Esophagogastroduodenoscopy Dr Dodson - Luis Dodson MD Height/Weight Height: 5 ft 4 in Weight: 60.5 kg Allergies Allergy/AdvReac Type Severity Reaction Status Date / Time haloperidol [From Haldol] AdvReac Unknown Verified 01/18/20 13:27 Medications Home Medications Medication Instructions Recorded Confirmed Last Taken cholecalciferol (vitamin D3) 25 1,000 units PO HS 06/23/19 01/18/20 11/04/19 20:00 mcg (1,000 unit) capsule ferrous sulfate 325 mg (65 mg 325 mg PO Q OTHER DAY tab 06/23/19 01/18/20 11/04/19 08:30 iron) tablet,delayed release folic acid 400 mcg tablet 400 mcg PO HS 06/23/19 01/18/20 11/04/19 20:30 multivitamin 1 tab PO PM 06/23/19 01/18/20 11/04/19 08:30 cyanocobalamin (vitamin B-12) 1,000 mcg PO HS 08/12/19 01/18/20 11/04/19 20:30 [Vitamin B-12] duloxetine 60 mg capsule,delayed 60 mg PO QAM #30 cap 08/30/19 01/18/20 11/04/19 09:30 release mehlod-emnwldip-vnmudii 1 cap PO TID #90 cap 08/30/19 01/18/20 11/05/19 00:00 6,000-19,000-30,000 unit capsule,delayed rel buspirone 5 mg tablet 5 mg PO BID #60 tab 10/19/19 01/18/20 11/04/19 17:30 clobetasol 1 appln TOP DAILY PRN 10/29/19 01/18/20 11/03/19 duloxetine [Cymbalta] 20 mg PO HS 11/05/19 01/18/20 11/04/19 18:00 guselkumab 100 mg/mL subcutaneous See Rx Instructions .ROUTE 12/03/19 01/18/20 Unknown auto-injector .COMPLEX #1 milliliter nystatin 100,000 unit/gram topical 1 appln TOP TID #30 gm 12/17/19 01/18/20 Unknown ointment blood sugar diagnostic [OneTouch #10 ea 12/31/19 01/07/20 Unknown Verio] insulin lispro [Humalog KwikPen 1 units SQ ACHS #15 ml 12/31/19 01/18/20 Unknown Insulin] gabapentin 300 mg PO TID #90 cap 01/04/20 01/18/20 Unknown insulin glargine [Basaglar KwikPen 6 units SQ DAILY #15 ml 01/04/20 01/18/20 Unknown U-100 Insulin] metformin 500 mg PO DAILY #30 tab 01/04/20 01/18/20 Unknown pantoprazole [Protonix] 40 mg PO BID #60 tab 01/04/20 01/18/20 Unknown sucralfate 10 ml PO ACHS #420 ml 01/04/20 01/18/20 Unknown thiamine HCl (vitamin B1) [Vitamin 100 mg PO DAILY #30 tab 01/04/20 01/18/20 Unknown B-1] clobetasol 1 appln TOP BID PRN 01/18/20 01/18/20 Unknown Active Medications Generic Name Dose Route Start Last Admin Trade Name Freq PRN Reason Stop Dose Admin Buspirone HCl 5 mg 01/18/20 21:00 01/19/20 21:08 Buspar PO 02/17/20 20:59 5 mg BID [facility] Administration Chlordiazepoxide HCl 50 mg 01/19/20 20:00 01/20/20 05:10 Librium PO 01/20/20 14:01 Not Given Q8@0600,1400,2000 [facility]PIT Protocol Cyanocobalamin 1,000 mcg 01/18/20 21:00 01/19/20 21:07 Vitamin B-12 PO 02/17/20 20:59 1,000 mcg HS ARPIT Administration Duloxetine HCl 20 mg 01/18/20 21:00 01/19/20 21:10 Cymbalta PO 02/17/20 20:59 20 mg HS [facility]PIT Administration Duloxetine HCl 60 mg 01/19/20 09:00 01/19/20 08:09 Cymbalta PO 02/18/20 08:59 60 mg QAM [facility] Administration Ferrous Sulfate 325 mg 01/19/20 09:00 01/19/20 08:09 Feosol PO 02/18/20 08:59 325 mg Q2D@0900 [facility]PIT Administration Folic Acid 400 mcg 01/18/20 21:00 01/19/20 21:10 Folvite PO 02/17/20 20:59 400 mcg HS ARPIT Administration Gabapentin 300 mg 01/18/20 21:00 01/19/20 21:08 Neurontin PO 02/17/20 20:59 300 mg TID [facility]PIT Administration Lorazepam 1 mg in 2 mls @ 2 mls/min 01/18/20 15:59 01/18/20 16:18 Ativan IV 02/17/20 15:58 2 mls/min ONE PRN Administration EtoH Withdrawal AWSS 6-10 Protocol Insulin Aspart 0 units 01/18/20 21:00 01/20/20 07:50 Novolog Flexpen SC 02/17/20 20:59 Not Given ACHS [facility]PIT Protocol Insulin Glargine 0 units 01/19/20 21:00 01/19/20 22:03 Lantus Solostar Pen SC 02/18/20 20:59 Not Given HS [facility]PIT Protocol Miscellaneous 15 - 30 gm 01/18/20 18:01 01/19/20 07:30 Carbohydrates For Hypoglycemia PO 02/17/20 18:00 30 gm UD PRN Administration Hypoglycemia Protocol Multivitamins 1 tab 01/18/20 21:00 01/19/20 21:11 Multivitamin Tab PO 02/17/20 20:59 1 tab PM [facility]PIT Administration Pantoprazole Sodium 40 mg 01/18/20 21:00 01/19/20 21:08 Protonix PO 02/17/20 20:59 40 mg BID [facility]PIT Administration Sucralfate 1 gm 01/18/20 16:30 01/19/20 21:10 Carafate Tab PO 02/17/20 16:29 1 gm ACHS ARPIT Administration Thiamine HCl 100 mg 01/19/20 09:00 01/19/20 08:09 Vitamin B-1 PO 02/18/20 08:59 100 mg DAILY [facility]PIT Administration Vitamin D 1,000 units 01/18/20 21:00 04/15/20 21:11 Vitamin D3 PO 02/17/20 20:59 1,000 units HS [facility]PIT Administration NPO Date Last Intake of Fluids: 01/19/20 Time Last Intake of Fluids: 19:30 Date Last Intake of Solids: 01/19/20 Time Last Intake of Solids: 18:00 Past Medical History Medical History Abnormal blood sugar A1C LEVELS FLUCTUATE Abnormal TSH Alcohol intoxication (Inactive) RESOLVED PER PATIENT Alcohol withdrawal seizure (Resolved) NOT REPORTED BY PATIENT AT TIME OF PAT CALL - LAST EPISODE OVER A YEAR AGO Anxiety (Chronic) Unable to establish regular follow-up with psychiatry Bimalleolar ankle fracture (Resolved) Bowel habit changes RESOLVED Chronic pancreatitis (Chronic) Cirrhosis of liver (Chronic) "COMPROMISED LIVER" Depression (Chronic) Unable to establish regular follow-up with psychiatry Diabetes mellitus (Chronic) TYPE 2 "SECONDARY" Encephalomalacia (Acute) Exocrine pancreatic insufficiency (Acute) History of alcohol consumption (Chronic) History of dizziness NOT CURRENTLY History of fracture TAILBONE - FLARES UP WITH WEATHER CHANGES Hydrosalpinx PT UNAWARE Hypothyroidism told this 10 yrs ago> no meds Insomnia IPMN (intraductal papillary mucinous neoplasm) Lipoma NECK Liver cirrhosis, alcoholic (Acute) Nausea & vomiting (Inactive) RESOLVED Neuropathy (Chronic) OF FOOT Nicotine dependence (Chronic) Pancreatic insufficiency (Chronic) Peripheral neuropathy (Acute) RESOLVING PER PATIENT Polycystic ovarian syndrome (Chronic) Psoriasis (Acute) SBO (small bowel obstruction) (Resolved) Resolved Vitamin D deficiency Exercise / Class Metabolic Activity II 4-5 Yardwork/Stairs/Walk up hill Past Family History Family History Uncle Diabetes Mother Breast cancer Sister Breast cancer Father Prostate cancer Other Family history of breast cancer in mother Family history of breast cancer in sister Denies family history of Ovarian cancer Myocardial infarction Colorectal cancer Past Surgical History Surgical History Amputation of left lower extremity TO APPROX MID CALF History of ankle surgery 02/2019 left ankle ex fix, grade 2 view with MAC 3 and 7.0 ETT History of tooth extraction Past Anesthesia History No Hx of Anesthesia Complications and No Family Hx of Anesthesia Complications History of PONV No Hx of PONV and No Hx of Motion Sickness Social History Smoking Status: Current every day smoker tobacco type: cigarettes Smoking cigarettes per day: 15 Do You Dip or Chew Tobacco: No Hx Alcohol Use: Yes Alcohol type: wine alcohol intake frequency: other Alcohol Intake Frequency Comment: ETOH level 372 Hx Substance Use: No substance use type: does not use Physical Exam Vital Signs Last Vital Signs Temp 36.9 C 01/20/20 08:02 Pulse 102 H 01/20/20 08:02 Resp 16 01/20/20 08:02 BP 137/92 01/20/20 08:02 Pulse Ox 97 01/20/20 08:02 ENMT Mouth: no dentition abnormality Thyromental Distance: > or= 3.5 Finger Breadths Mallampati Class: II Neck normal visual inspection Respiratory normal respiratory effort Auscultation: lungs clear to auscultation bilaterally Cardiovascular Rate/Rhythm: regular rate and regular rhythm Psychiatric Orientation: alert Testing Laboratory Results 01/20/20 06:56 01/20/20 06:56 PT 11.9 Seconds (9.0-12.0) 01/18/20 12:13 INR 1.1 (0.9-1.1) 01/18/20 12:13 APTT 23.6 Seconds (21.0-31.0) 01/18/20 12:13 Urine Color Yellow 01/18/20 11:20 Urine Appearance Clear (Clear) 01/18/20 11:20 Urine pH 7.0 (4.5-7.5) 01/18/20 11:20 Ur Specific [place] 1.012 (1.000-1.030) 01/18/20 11:20 Urine Protein Negative (Negative) 01/18/20 11:20 Urine Glucose (UA) Negative (Negative) 01/18/20 11:20 Urine Ketones Negative (Negative) 01/18/20 11:20 Urine Nitrite Negative (Negative) 01/18/20 11:20 Ur Leukocyte Esterase Negative (Negative) 01/18/20 11:20 Blood Type B Negative 01/18/20 12:13 Antibody Screen NEGATIVE 01/18/20 12:13 01/18/20 11:54 Aerobic Blood Culture - Preliminary Blood No growth in Aerobic bottle after 24 hours. Anaerobic Blood Culture - Final 01/18/20 12:13 Aerobic Blood Culture - Preliminary Blood No growth in Aerobic bottle after 24 hours. Anaerobic Blood Culture - Preliminary No growth in Anaerobic bottle after 24 hours. 01/20/20 01/20/20 01/19/20 07:41 02:20 20:56 POC Glucose 142 H 209 H 72
--- NOTE | 2020-01-20 08:25 | History & Physical Bridge Note ---
Date of Service January 20, 2020 History & Physical Bridge Note I have examined the patient, reviewed the History & Physical and in the interval since the performance of the History & Physical I have noted the following changes of clinical significance: no changes noted
--- NOTE | 2020-01-20 08:54 | GI REPORT ---
Patient Name: Gem Chiu Procedure Date: 01/20/2020 7:53 AM Date of : 1965 Admit Type: Inpatient Age: 54 Gender: Female Attending MD: Luis Dodson MD Procedure: Upper GI endoscopy Providers: Luis Dodson MD Referring MD: Hussein Cassidy Md Indications: Follow-up of esophagitis Medicines: Propofol per Anesthesia Complications: No immediate complications. Estimated Blood Loss: Estimated blood loss: none. Procedure: Pre-Anesthesia Assessment: - Prior to the procedure, a History and Physical was performed, and patient medications, allergies and sensitivities were reviewed. The patient's tolerance of previous anesthesia was reviewed. - The risks and benefits of the procedure and the sedation options and risks were discussed with the patient. All questions were answered and informed consent was obtained. - Patient identification and proposed procedure were verified prior to the procedure by the physician and the nurse. The procedure was verified in the procedure room. - Pre-procedure physical examination revealed no contraindications to sedation. After obtaining informed consent, the endoscope was passed under direct vision. Throughout the procedure, the patient's blood pressure, pulse, and oxygen saturations were monitored continuously. The Endoscope was introduced through the mouth, and advanced to the second part of duodenum. The upper GI endoscopy was accomplished without difficulty. The patient tolerated the procedure well. Findings: A 2 cm hiatal hernia was found. The proximal extent of the gastric folds (end of tubular esophagus) was 38 cm from the incisors. The hiatal narrowing was 40 cm from the incisors. Overall, normal mucosa was found in the entire esophagus with adequate healing of prior black esophagus, few superficial erosive areas with ongoing healing. No discrete stenosis seen however there was mild luminal narrowing related to healing of esophagitis. A guidewire was placed and the scope was withdrawn. Dilation was performed with a Savary dilator with no resistance at 12 mm, 14 mm and 15 mm and mild resistance at 18 mm. The dilation site was examined following endoscope reinsertion and showed no bleeding. The entire examined stomach was normal. The duodenal bulb and second portion of the duodenum were normal. Impression: - 2 cm hiatal hernia. - Normal mucosa was found in the entire esophagus. Prior black esophagus well healed. Esophageal dilation performed up to 18 mm. - Normal stomach. - Normal duodenal bulb and second portion of the duodenum. - No specimens collected. Recommendation: - [facility]. - Resume regular diet. - Follow an antireflux regimen. - PO PPI once daily. - Alcohol cessation. - Recall GI if needed. Luis Dodson MD 01/20/2020 8:53:41 AM This report has been signed electronically. Note Initiated On: 01/20/2020 7:53 AM Number of Addenda: 0 I attest to the content of the Intraoperative Record and orders documented therein, exceptions below {[id number]}
[2020-01-20] MEDS: SUCRALFATE 1 GM TAB PO SCH (09:11)
--- NOTE | 2020-01-20 09:13 | Anesthesiology Progress Note ---
Date of Service January 20, 2020 Anesthesia Post Procedure Vital Signs Vital Signs: Temp Pulse Pulse Resp BP Pulse Ox 01/20/20 09:00 111 H 18 123/76 94 01/20/20 08:46 109 H 18 112/67 98 01/20/20 08:02 36.9 C 102 H 16 137/92 97 01/20/20 07:19 37.0 C 109 H 18 123/81 95 01/20/20 04:00 37.5 C 105 H 18 131/86 94 01/19/20 23:00 36.8 C 101 H 18 152/90 H 96 01/19/20 22:20 107 H 01/19/20 20:08 36.8 C 98 H 16 154/93 H 97 01/19/20 16:47 96 H 01/19/20 15:04 37.2 C 101 H 16 159/98 H 98 01/19/20 12:01 155/93 H 01/19/20 11:40 37.1 C 100 H 18 160/100 H 100 Transfer of Care Handoff Completed per policy Notes Mental Status: alert / awake / arousable Patient Amnestic to Procedure: Yes Nausea / Vomiting: adequately controlled Pain: adequately controlled Airway Patency, RR, SpO2: stable & adequate BP & HR: stable & adequate Hydration State: stable & adequate Anesthetic Complications: no major complications apparent
[2020-01-20] MEDS: DULOXETINE HCL 60 MG CAP PO SCH (09:30)
[2020-01-20] MEDS: GABAPENTIN 300 MG CAP PO SCH ×3 (09:30→21:59)
[2020-01-20] MEDS: THIAMINE HCL 100 MG TAB PO SCH (09:30)
[2020-01-20] MEDS: PANTOprazole 40 MG TAB PO SCH (09:31)
--- NOTE | 2020-01-20 14:14 | Hospitalist Progress Note ---
Date of Service January 20, 2020 Assessment & Plan (1) Alcohol intoxication delirium: Presented in toxic metabolic encephalopathy due to alcohol intoxication Mental status had cleared by 01/18. - AWSS as likely to go through withdrawal during admission. Lorazepam PRN dosing as per "at risk" order set -> No present withdrawals. - Will encourage cessation and provide any accepted resources as alcoholism is driving the large part of her medical issues at this time. -> Encouraged AA. She is not interested in rehab. I told her I thought alcohol was the root of many of her medical problems and it was imperative to stop drinking. She reports that she starts to drink when she gets "triggered" which includes confrontation with her mother or stress about bills. I asked how she planned to cope with these triggers, and she discussed friend support. However without her friend being available all the time, it seems that she falls back on drinking. I tried to explore how else to avoid triggers, but she is not really able to say how she will avoid the triggers and further drinking. (2) Diabetes mellitus type 2 in nonobese: HbA1C was 14.9% in setting of GI bleed. Unclear how she is taking insulin at home. She does report that she gets confused about her insulin dosing and types at home. - BSG ACHS with Novolog sliding scale. - Will defer basal dosing to DM pharmacist. - This morning, she was hypoglycemic. Will try to adjust insulin. Goal is to use 1 long-acting injection daily to try to minimize change of hypoglycemic episodes at home. (3) Chronic pancreatitis: No current abdominal pain. Will defer restarting pancreatic enzymes at present unless she develops abdominal pain associated with eating. - Holding at present. 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 - Repeat EGD on 01/19 shows esophagitis healing well. - Monitor hgb -> Down to 10.8 today, but no evidence of ongoing bleeding. Likely hemodilutional from her dehydration. 10.8 is actually better than her discharge level 2 weeks ago. (5) History of left below knee amputation: Patient reports wheelchair-bound but she most drags herself on her bottom around her house. - Declined rehab stay last admission and this admission as well. (6) DVT prophylaxis: No chemical VTE prophylaxis given recent admission for large GI bleed requiring 5 units blood transfusion. If Hgb stable this should be reconsidered. - SCDs Admission and Anticipated Discharge Date Admission Date: January 18, 2020 Subjective Doing well, but concerned about getting home and concerned about her diabetic management. Reports no fevers/chills, chest pain, shortness of breath, abdominal pain, nausea, or vomiting. Physical Exam Constitutional: WD/WN, vitals as above Eyes: EOM intact bilaterally; no conjunctival abnormality ENMT: external ear and nose normal, oropharynx normal Neck: trachea midline, no thyromegaly normal visual inspection Respiratory: normal respiratory effort, lungs clear to auscultation no respiratory distress Cardiovascular: RRR, no murmur, no edema Gastrointestinal (Abdomen): Inspection/Auscultation: abdomen normal to inspection; abdomen not distended Musculoskeletal: Extremities: + extremities abnormal to inspection (Left BKA) Skin: no rashes, warm and dry Neurologic: moves all extremities and awake Psychiatric: Orientation: alert, oriented to person and cooperative Results & Data Results & Data ([facility]) Vital Signs (Past 12 Hours) Vital Signs Temp Pulse Pulse Resp BP Pulse Ox 01/20/20 10:16 106 H 01/20/20 09:38 36.4 C L 99 H 16 128/83 96 01/20/20 09:15 110 H 18 112/66 94 01/20/20 09:00 111 H 18 123/76 94 01/20/20 08:46 109 H 18 112/67 98 01/20/20 08:02 36.9 C 102 H 16 137/92 97 01/20/20 07:19 37.0 C 109 H 18 123/81 95 01/20/20 04:00 37.5 C 105 H 18 131/86 94 PG Care Time/CCT Total # of Minutes Spent Total Time Spent with Patient: Total time spent is greater than 50% in coordination of care (as documented) at patient's floor/unit and/or counseling patient: Coding Level of Care Code 14884 Subseq Hosp Care Lvl 3 Diagnoses Alcohol intoxication delirium F10.121 Diabetes mellitus type 2 in nonobese E11.9 Chronic pancreatitis K86.0 Pancreatitis type: alcohol induced History of GI bleed Z87.19 History of left below knee amputation Z89.512 DVT prophylaxis Z29.9 (1) Chronic pancreatitis Pancreatitis type: alcohol induced Qualified Code(s): K86.0 - Alcohol-induced chronic pancreatitis
--- NOTE | 2020-01-20 15:17 | Pharmacy Report ---
Pharmacy Glycemic Short Note 2 - Date of Service January 20, 2020 - Glycemic Short BSG Results (Last 24 hours): 01/19/20 01/19/20 01/20/20 16:33 20:56 02:20 Glucose POC Glucose 178 H 72 209 H 01/20/20 01/20/20 01/20/20 06:56 07:41 11:31 Glucose 123 H POC Glucose 142 H 125 H Outpatient Anti-diabetic Regimen: * Lantus 4 units daily * Humalog 2 units QID - per report from patient * A1c = 14.9 % 12/27/19 ASSESSMENT: 01/20/20: * Patient received 5 units of insulin yesterday, with BSGs ranging from 72-209 mg/dL in the past 24 hours. * Patient was NPO for an EGD this morning, and has now resumed diabetic diet. * Carb ratio loosened slightly today in response to BSG change after dinner coverage last evening. 01/19/20 * Ms Chiu was hypoglycemic overnight, with BSGs in the 50's. BSGs have been okay thus far today. * Carb ratio loosened to provide less prandial coverage, and will dose Lantus conservatively tonight based on BSG. 01/18/20 * 54 year old with alcohol intoxication delirium, dehydration, type 2 diabetes. Pharmacy consulted for glycemic management. Known to glycemic service from 12/26 admission. * Per report from nurse, patient has not taken any insulin today. BSG is 270 mg/dL at time of consult - will utilize similar novolog/lantus dosing from past admission. Per report for nurse, patient denies any nausea at this time. Patient confirms above dosing for insulin at home. Per provider report concern for compliance with medications. PLAN FOR INPATIENT GLYCEMIC CONTROL: * Basal insulin * Lantus per scale qHS: for BSG less than 150mg/dL: give 0 units for BSG 150mg/dL or greater: give 4 units * Bolus insulin * NovoLog per scale ACHS or Q6hrs while NPO * Goal Range: Low 120 mg/dL - High 160 mg/dL * Correction Factor: 45 mg/dL/unit * Nutritional / Prandial insulin per carb ratio of 1 unit per 20 grams CHO consumed PLAN FOR DISCHARGE: * Patient's A1c (14.9%) indicates extremely poor glycemic control as an outpatient. Suspect that this is largely d/t non-compliance, as patient does appear to be quite insulin-sensitive. * For discharge, would consider once-daily Lantus, to simplify regimen as much as possible and minimize risk of hypoglycemia. * Consider Lantus 5 units SQ daily. May slowly titrate dose upward, if needed, until adequate control is achieved. * Patient will require close f/u with outpt provider to optimize regimen.
[2020-01-20] MEDS ORDERED: LIDOCAINE HCL 2% 2 ML VIAL/AMP(20MG/ML) INFIL ONE (16:38)
[2020-01-20] MEDS ORDERED: PROPOFOL IV EMULSION 10 MG/ML 20 ML VIAL IV ONE (16:38)
[2020-01-20] MEDS: CHLORDIAZEPOXIDE 25MG 3RD DOSE PO SCH (21:56)
[2020-01-20] MEDS: CHOLECALCIFEROL 1,000 UNITS 25 MCG TAB PO SCH (21:59)
[2020-01-20] MEDS: FOLIC ACID 400 MCG TAB PO SCH (21:59)
[2020-01-20] MEDS: MULTIVITAMIN TAB PO SCH (21:59)
[2020-01-20] MEDS: CYANOCOBALAMIN 500 MCG TABLET (VITAMIN B-12) PO SCH (21:59)
[2020-01-20] MEDS: INSULIN GLARGINE SOLOSTAR 100 UNITS/ML 3 ML PEN SC SCH (22:00)
[2020-01-20] MEDS: DULOXETINE HCL 20 MG CAP PO SCH (22:00)
[2020-01-21] MEDS: CHLORDIAZEPOXIDE 25MG 3RD DOSE PO SCH ×2 (06:08→13:31)
[2020-01-21] MEDS: INSULIN ASPART 100 UNITS/ML 3 ML PEN SC SCH ×2 (08:29→12:43)
[2020-01-21] MEDS: GABAPENTIN 300 MG CAP PO SCH ×2 (08:30→13:31)
[2020-01-21] MEDS: FERROUS SULFATE 325 MG TAB PO SCH (08:31)
[2020-01-21] MEDS: THIAMINE HCL 100 MG TAB PO SCH (08:31)
[2020-01-21] MEDS: DULOXETINE HCL 60 MG CAP PO SCH (08:31)
[2020-01-21] MEDS ORDERED: PANTOprazole 40 MG TAB PO SCH (09:00)
--- NOTE | 2020-01-21 14:42 | Discharge Summary ---
Date of Service January 21, 2020 Admission HPI Per Admitting Provider Gem Chiu is a 54 year old female with alcohol use disorder who presents to the ER after found semi-conscious by EMS after a wellness check at home. The patient is speaking in full sentences, she is pleasant and co-operative but unable to provide a history of why she is here or what happened after she was recently discharged. She reports compliance with her medications although per EMS notes she told them she is unsure whether she has been taking anything for the past week. She reports she is here because of her divorce three years ago and she is depressed because of this. She denies any alcohol use despite discussing her positive alcohol level then changes her mind that she is unsure whether she has been. Her main concern is dryness in her mouth and she requests to get out of bed (despite it being high off the ground and patient is wheelchair-bound) and that she will drag herself to the bathroom as that is where the water is. When I say I will talk to her nurse to get her something to drink she tells me I am lying She reports feeling safe to be discharged home although clearly lacks capacity to make that decision at present as unable to tell me anything about being here or what the risks are of going home. I spoke to her mother as unable to get a history from patient and her mother reports ever since she was discharged at the end of December she has not been in contact with the patient as she does not answer her phone and has been locking her door. She suspects she has been drinking alcohol since discharge but unable to confirm this. Principal Diagnosis Alcohol intoxication Discharge Exam Constitutional WD/WN, vitals as above Eyes EOM intact bilaterally; no conjunctival abnormality ENMT external ear and nose normal, oropharynx normal Neck trachea midline, no thyromegaly normal visual inspection Respiratory normal respiratory effort, lungs clear to auscultation no respiratory distress Cardiovascular RRR, no murmur, no edema Gastrointestinal (Abdomen) Inspection/Auscultation: abdomen normal to inspection; abdomen not distended Musculoskeletal Extremities: + extremities abnormal to inspection (Left BKA) Skin no rashes, warm and dry Neurologic moves all extremities and awake Psychiatric Orientation: alert, oriented to person and cooperative Discharge Data Allergies Allergy/AdvReac Type Severity Reaction Status Date / Time haloperidol [From Haldol] AdvReac Unknown Verified 01/18/20 13:27 Consultations 01/18/20 13:04 ED Decision to Admit Stat 01/18/20 15:59 Consult Case Management - Discharge Planning Routine Procedures Performed Operation Date: 01/20/20 08:30 Actual Procedures p EGD Dilatation - Luis Dodson MD Ordered Studies 01/18/20 11:40 CT head/brain wo con Stat Hospital Course (1) Alcohol intoxication delirium: Presented in toxic metabolic encephalopathy due to alcohol intoxication Mental status had cleared by 01/18. - AWSS as likely to go through withdrawal during admission. Lorazepam PRN dosing as per "at risk" order set -> No present withdrawals. - Encouraged cessation and provide any accepted resources as alcoholism is driving the large part of her medical issues at this time. -> Encouraged AA. She is not interested in rehab. I told her I thought alcohol was the root of many of her medical problems and it was imperative to stop drinking. She reports that she starts to drink when she gets "triggered" which includes confrontation with her mother or stress about bills. I asked how she planned to cope with these triggers, and she discussed friend support. However without her friend being available all the time, it seems that she falls back on drinking. I tried to explore how else to avoid triggers, but she is not really able to say how she will avoid the triggers and further drinking. She is adamant that she is not going to rehab and also adamant that we not discuss her care with her mother. Despite her alcoholism, she is capable of making her own decisions. I cannot contradict her wishes even though I do not agree with her decision making. (2) Diabetes mellitus type 2 in nonobese: HbA1C was 14.9% in setting of GI bleed. Unclear how she is taking insulin at home. She does report that she gets confused about her insulin dosing and types at home. - On discharge, we simplified her regimen to 5 units of Lantus daily. Diabetes education was provided multiple times. (3) Chronic pancreatitis: No current abdominal pain. Deferred restarting pancreatic enzymes at present unless she develops abdominal pain associated with eating. - Holding at present. 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 - Repeat EGD on 01/19 shows esophagitis healing well. Tolerated mild dilation well. - Monitor hgb -> Stable and improved from her prior admission. (5) History of left below knee amputation: Patient reports wheelchair-bound but she most drags herself on her bottom around her house. - Declined rehab stay last admission and this admission as well. (6) DVT prophylaxis: No chemical VTE prophylaxis given recent admission for large GI bleed requiring 5 units blood transfusion. If Hgb stable this should be reconsidered. - SCDs Total Time Total Time Spent Total Time Spent (In Minutes): 35 Discharge Plan Discharge Items Patient Disposition: Home - Home Health Services Reason For Visit: ALTERED MENTAL STATE Discharge Diagnosis: Alcohol intoxication Activity: Resume your previous activity Non-emergency contact: Primary Care Provider and Therapist Call non-emergency contact if: your symptoms worsen Follow-up/Referrals: Ana Lilia Madrid MD [Primary Care Provider] - Diet: Carb Consistent or DM2 Addtl Attending Provider Instructions: Ms. Chiu, You were found on the floor of your home unconscious. When you arrived in the ER, you were found to have a high blood alcohol level. I believe your altered mental status was due to intoxication. As your body cleared the alcohol, you became more alert and awake. We did not find an infection or other cause for your altered mental state apart from the alcohol. The GI doctors saw you in the hospital, and you received an EGD which showed that the damage to your esophagus from the prior admission is healing well. This is great news as at times people can have permanent scarring from this. You did not have any signs of bleeding, which is good. For your diabetes, we are simplifying your diabetic regimen. We are going to do 1 long-acting insulin shot per day instead of trying to do several shots. This will simplify your regimen and hopefully prevent you from going too low or mixing up insulins. Please take 5 units of Basaglar KwikPen per day. You can keep the Humalog/lispro in your refrigerator in case we get to a point that you want to try the sliding scale again, but I would put it in a plastic bag and put it somewhere in the fridge you will not mistake it for your usual insulin. Finally, please, please stop drinking. This is the root of essentially all of your current medical issues. We spent time talking about your "triggers" and how they cause you to drink if you cannot reach out to your friend or counselor. You need to work with your counselor on how to handle these triggers on your own so that they do not cause you to drink. Your friends & counselor cannot be your rescue every time, and therefore you need to find ways to handle your stress & triggers yourself to avoid drinking. Not drinking at all is the only way I see you being able to stay healthy and out of the hospital long-term. Eventually, the alcohol will kill you if you continue binge-drinking as you are currently doing. Please consider reaching out to your counselor, AA, or other resources to find ways to deal with your triggers because we are all currently in a very stressful situation that may not get better very quickly. Please take care and feel free to come back to the hospital any time you need to. Pending Studies at Discharge: No Stand-Alone Forms: My [facility], Smoking Cessation Medications and DC Order Prescriptions: Continued duloxetine [Cymbalta] 60 mg capsule,delayed release(DR/EC) 60 mg PO QAM Qty: 30 RF: 5 Creon 6,000-19,000 -30,000 unit capsule,delayed release(DR/EC) 1 cap PO TID Qty: 90 RF: 1 guselkumab [Tremfya] 100 mg/mL auto-injector See Rx Instructions .ROUTE .COMPLEX Qty: 1 RF: 0 buspirone 5 mg tablet 5 mg PO BID Qty: 60 RF: 5 ferrous sulfate 325 mg (65 mg iron) tablet,delayed release (DR/EC) 325 mg PO Q OTHER DAY RF: 0 cholecalciferol (vitamin D3) 1,000 unit capsule 1,000 units PO HS RF: 0 folic acid 400 mcg tablet 400 mcg PO HS RF: 0 multivitamin tablet 1 tab PO PM RF: 0 nystatin 100,000 unit/gram ointment 1 appln TOP TID Qty: 30 RF: 0 (DME) blood sugar diagnostic [OneTouch Verio] Strip See Rx Instructions .ROUTE .MEDSUPPLY Qty: 10 RF: 0 sucralfate 100 mg/mL Suspension 10 ml PO ACHS Qty: 420 RF: 2 thiamine HCl (vitamin B1) [Vitamin B-1] 100 mg Tablet 100 mg PO DAILY Qty: 30 RF: 0 metformin 500 mg tablet extended release 24 hr 500 mg PO DAILY Qty: 30 RF: 0 pantoprazole [Protonix] 40 mg tablet,delayed release (DR/EC) 40 mg PO BID Qty: 60 RF: 0 gabapentin 300 mg capsule 300 mg PO TID Qty: 90 RF: 1 clobetasol 0.05 % shampoo 1 appln TOP DAILY PRN (Reason: Rash) RF: 0 duloxetine [Cymbalta] 20 mg capsule,delayed release(DR/EC) 20 mg PO HS RF: 0 cyanocobalamin (vitamin B-12) [Vitamin B-12] 1,000 mcg Tablet 1,000 mcg PO HS RF: 0 clobetasol 0.05 % foam 1 appln TOP BID PRN (Reason: .) RF: 0 Changed Basaglar KwikPen U-100 Insulin 100 unit/mL (3 mL) insulin pen 5 units SQ DAILY Qty: 15 RF: 0 Discontinued insulin lispro [Humalog KwikPen Insulin] 100 unit/mL insulin pen 1 units SQ ACHS Qty: 15 RF: 0 Discharge Orders: Discharge Order (Routine); Ordered 01/21/20 Ordered By: Hussein Cassidy Admission Data Admit Date/Time: 01/20/20 15:18 Attending Provider: Hussein Cassidy Admit Provider: Alfonso Willis Primary Care Provider: Ana Lilia Madrid V. Other Providers: Hussein Cassidy Other Interventions: Discharge Summary Assessment (RN) Last Done: 01/21/20 11:41 Coding Level of Care Code D/C Day Management >30 mins Diagnoses Alcohol intoxication delirium F10.121 Diabetes mellitus type 2 in nonobese E11.9 Chronic pancreatitis K86.0 Pancreatitis type: alcohol induced History of GI bleed Z87.19 History of left below knee amputation Z89.512 DVT prophylaxis Z29.9
[2020-01-22] MEDS ORDERED: CHLORDIAZEPOXIDE 10MG 4TH DOSE PO SCH
== END 2020-01-21 16:39 | disposition home or self-care (01) | DRG 896 ==
LOC: 2W 11:10 → ED 11:10 → SUATTDRO 14:13 → 2W 15:44

== ENCOUNTER 2020-07-06 12:27 | Inpatient (IN) ==
[2020-07-06] MEDS ORDERED: MULTI-VITAMIN INFUSION 10 ML, THIAMINE HCL 100 MG, FOLIC ACID 1 MG in SODIUM CHLORIDE 0... IV ONE (13:20)
--- NOTE | 2020-07-06 13:24 | Emergency Department Note ---
History of Present Illness General Chief complaint: Alcohol Intoxication Stated complaint: alcohol Time Seen by Provider: 07/06/20 13:11 Source: patient and other (Nurse Nation) Mode of arrival: EMS Limitations: intoxication History of Present Illness Provider complaint: Intoxication Onset (ago): hour(s) Location: head Severity: moderate Pain Consistency: + constant Quality: + other (Intoxicated) Relieved By: + none Associated symptoms: + headaches; no chest pain, no cough, no fever/chills, no nausea/vomiting and no shortness of breath This is a 54-year-old female who presents with alcohol intoxication. According to nurse Nation the patient's neighbor was concerned about her welfare and called EMS. The patient states that her command and control officer called EMS out of concern for her welfare. She is intoxicated and changes her story with different people. There is currently did get history from EMS which seems like the most reliable source of information at this time. The patient does state that she has been drinking today. She states her command and control officer is planning to get her into rehab. She drank wine today. She does state that she fell while intoxicated 2 days ago and hit her head on a table. She denies any chest pain, shortness of breath, cough or cold symptoms or known COVID exposure. She has had no fevers. She denies any other injury than her head during the fall. She denies homicidal or suicidal ideation. Home Medications Home Medications Medication Instructions Recorded Confirmed Type cholecalciferol (vitamin D3) 25 1,000 units PO HS 06/23/19 07/06/20 History mcg (1,000 unit) capsule multivitamin 1 tab PO PM 06/23/19 07/06/20 History duloxetine 60 mg capsule,delayed 60 mg PO QAM #30 cap 08/30/19 07/06/20 Rx release clobetasol 1 appln TOP DAILY PRN 10/29/19 07/06/20 History duloxetine [Cymbalta] 20 mg PO HS 11/05/19 07/06/20 History clobetasol 1 appln TOP BID PRN 01/18/20 07/06/20 History buspirone 5 mg tablet 5 mg PO BID #60 tab 02/04/20 07/06/20 Rx dstbti-wuahefmu-doaunjj 1 cap PO TID #90 cap 02/14/20 07/06/20 Rx 6,000-19,000-30,000 unit capsule,delayed rel blood sugar diagnostic ea 02/16/20 06/08/20 History gabapentin 300 mg capsule 300 mg PO TID #90 cap 04/26/20 07/06/20 Rx cyanocobalamin (vitamin B-12) 1,000 mcg PO DAILY tab 05/10/20 07/06/20 History 1,000 mcg tablet nystatin 100,000 unit/gram topical 1 appln TOP TID PRN gm 05/10/20 07/06/20 History ointment flash glucose scanning reader #1 ea 06/07/20 06/08/20 Rx flash glucose sensor #1 ea 06/07/20 06/08/20 Rx guselkumab [Tremfya] 100 mg SQ Q8WK 07/06/20 07/06/20 History ibuprofen 800 mg PO Q6H PRN 07/06/20 07/06/20 History insulin glargine U-300 conc 16 units SQ QAM 07/06/20 07/06/20 History [Toujeo SoloStar U-300 Insulin] Allergies Allergy/AdvReac Type Severity Reaction Status Date / Time haloperidol [From Haldol] AdvReac Unknown Verified 07/06/20 13:51 Past Med/Surg History Medical History Abnormal TSH Per patient treated with thyroid hormone many years earlier Acute respiratory failure with hypoxia Alcohol dependence Alcohol intoxication delirium Alcohol withdrawal seizure NOT REPORTED BY PATIENT AT TIME OF PAT CALL - LAST EPISODE OVER A YEAR AGO Aspiration pneumonia Bimalleolar ankle fracture Caustic esophageal injury Chronic pancreatitis Cirrhosis of liver "COMPROMISED LIVER" Depression with anxiety Unable to establish with psychiatrist Diabetes type 1, uncontrolled Diabetic peripheral neuropathy associated with type 1 diabetes mellitus DKA (diabetic ketoacidoses) Encephalomalacia Exocrine pancreatic insufficiency History of GI bleed History of left below knee amputation Hydrosalpinx PT UNAWARE Insomnia IPMN (intraductal papillary mucinous neoplasm) Lipoma NECK Lipoma Liver cirrhosis, alcoholic Loose bowel movement Metabolic encephalopathy Pancreatic insufficiency Polycystic ovarian syndrome Psoriasis SBO (small bowel obstruction) Resolved Tobacco dependence Vitamin D deficiency Surgical History Amputation of left lower extremity TO APPROX MID CALF History of ankle surgery 02/2019 left ankle ex fix, grade 2 view with MAC 3 and 7.0 ETT History of tooth extraction Family History Uncle Diabetes Mother Breast cancer Sister Breast cancer Father Prostate cancer Other Family history of breast cancer in mother Family history of breast cancer in sister Denies family history of Ovarian cancer Myocardial infarction Colorectal cancer Social History Smoking Status: Current every day smoker Tobacco Type: Cigarettes packs per day: 0.75; Cigarettes Per Day: 15; Second Hand Exposure: No; Hx Alcohol Use: No Hx Substance Use: Yes Preferred Language: Luxembourgish Communication Ability: Effective Visual Impairment: No Limitations Guest Services Manager Required: No Beliefs That Will Affect Care: None marital status: marital status details: no children Current Living Situation: Alone current occupational status: disabled Feels Safe at Home: Yes Assistive Devices: None Review of Systems See HPI for pertinent positives & negatives. and A total of 10 systems reviewed and were otherwise negative Physical Exam Vital Signs Vital Signs - 24 hr 07/06/20 12:49 07/06/20 14:20 07/06/20 14:30 Temperature 36.9 C Temperature Source Oral Pulse Rate 102 H 93 H Pulse Rate [Apical] Pulse Rate from SpO2 Sensor Respiratory Rate 22 14 Respiratory Effort / Characteristics Non-Labored Spontaneous Respiratory Depth Normal Respiratory Pattern Regular Blood Pressure 120/84 118/81 Blood Pressure [Left Arm] Blood Pressure Mean 96 98 Blood Pressure Mean [Left Arm] Blood Pressure Position Sitting Pulse Oximetry 95 95 Oxygen Delivery Method Room Air Room Air Sepsis Recent Fever Within 48 Hours No Sepsis New/Unexplained Change in Mental Status No Sepsis Action Taken by Nursing No Action Required 07/06/20 14:31 07/06/20 14:32 07/06/20 15:00 Temperature Temperature Source Pulse Rate 91 H 85 Pulse Rate [Apical] 91 H Pulse Rate from SpO2 Sensor 87 Respiratory Rate 15 13 14 Respiratory Effort / Characteristics Respiratory Depth Respiratory Pattern Blood Pressure 126/84 Blood Pressure [Left Arm] 118/81 Blood Pressure Mean 95 Blood Pressure Mean [Left Arm] 93 Blood Pressure Position Pulse Oximetry 92 Oxygen Delivery Method Sepsis Recent Fever Within 48 Hours Sepsis New/Unexplained Change in Mental Status Sepsis Action Taken by Nursing 07/06/20 15:30 07/06/20 16:00 07/06/20 16:30 Temperature Temperature Source Pulse Rate 90 95 H 92 H Pulse Rate [Apical] Pulse Rate from SpO2 Sensor 92 H 93 H 92 H Respiratory Rate 16 19 13 Respiratory Effort / Characteristics Respiratory Depth Respiratory Pattern Blood Pressure 130/83 128/87 132/85 Blood Pressure [Left Arm] Blood Pressure Mean 99 108 98 Blood Pressure Mean [Left Arm] Blood Pressure Position Pulse Oximetry 93 93 93 Oxygen Delivery Method Sepsis Recent Fever Within 48 Hours Sepsis New/Unexplained Change in Mental Status Sepsis Action Taken by Nursing 07/06/20 18:14 07/06/20 18:20 07/06/20 18:21 Temperature Temperature Source Pulse Rate Pulse Rate [Apical] Pulse Rate from SpO2 Sensor 113 H 101 H 100 H Respiratory Rate 18 Respiratory Effort / Characteristics Respiratory Depth Respiratory Pattern Blood Pressure 127/82 127/82 Blood Pressure [Left Arm] Blood Pressure Mean 99 97 Blood Pressure Mean [Left Arm] Blood Pressure Position Pulse Oximetry 95 96 96 Oxygen Delivery Method Sepsis Recent Fever Within 48 Hours Sepsis New/Unexplained Change in Mental Status Sepsis Action Taken by Nursing Constitutional: Vital signs reviewed. Eyes: Pupils are equal round reactive to light. Conjunctiva are noninjected. ENT: Pharynx is clear without erythema or exudate. Mucous membranes are dry. Neck supple without meningeal signs. Respiratory: Clear to auscultation bilaterally. Breath sounds are equal bilaterally. Cardiovascular: Regular rate and rhythm. No rubs or gallops. GI: Soft, nondistended and nontender. Bowel sounds are present. Musculoskeletal: Left BKA. No swelling or erythema or tenderness. Integumentary: Mild erythema and an old scab to the forehead. No increased warmth or evidence of cellulitis. Neurological: The patient is awake and alert but appears intoxicated. She moves all extremities. Cranial nerves are grossly intact. Psychiatric: Intoxicated unable to assess. Course Administered Medications Discontinued Medications Multivitamins 10 ml/ Thiamine HCl 100 mg/ Folic Acid 1 mg/Sodium Chloride 1,011.2 mls @ 1,011.2 mls/hr IV .Q1H ONE Stop: 07/06/20 14:19 Last Infusion: 07/06/20 15:30 Dose: 0 mls/hr Documented by: [id number] Admin: 07/06/20 14:17 Dose: 1,011.2 mls/hr Documented by: [id number] Nicotine (Nicotine 14 Mg/24 Hr Patch) 14 mg TD NOW STA Stop: 07/06/20 18:05 Last Admin: 07/06/20 18:18 Dose: 14 mg Documented by: [id number] Medical Decision Making Differential Diagnosis Alcohol intoxication, dehydration, ICH, contusion, metabolic derangement Medical Records Attestation: I reviewed the patient's medical records. I did perform a limited focused review of portions of the patient's old chart on the electronic medical record. The patient has had no recent pertinent visits to this hospital. Home Medications Current Medication List: was personally reviewed by me Laboratory Data Attestation: I reviewed the patient's lab results. Result diagrams: 07/06/20 14:04 07/06/20 14:04 Lab Results 07/06/20 07/06/20 07/06/20 Range/Units 12:38 14:04 14:04 WBC 3.80 L (4.8-10.8) K/uL RBC 4.46 (4.2-5.4) M/uL Hgb 13.4 (12.0-16.0) g/dL Hct 39.9 (37-47) % MCV 89.5 (80-100) fL MCH 30.0 (25-34) pg MCHC 33.6 (32-36) g/dL RDW Std Deviation 53.2 H (36.4-46.3) fL RDW Coeff of Ethel 16.4 H (11.5-14.5) % Plt Count 103 L (130-400) K/uL MPV 9.0 (7.4-10.4) fL Immature Gran % (Auto) 0.3 % Neut % (Auto) 58.6 % Lymph % (Auto) 30.0 % [place] % (Auto) 8.2 % Eos % (Auto) 1.6 % Baso % (Auto) 1.3 % Neut # (Auto) 2.23 (1.4-6.5) K/uL Lymph # (Auto) 1.14 L (1.2-3.4) K/uL [place] # (Auto) 0.31 (0.11-0.59) K/uL Eos # (Auto) 0.06 (0-0.5) K/uL Baso # (Auto) 0.05 (0-0.2) K/uL Immature Gran # (Auto) 0.01 (0.00-0.02) K/uL RBC Morphology Unremarkable Sodium 144 (136-145) mmol/L Potassium 4.2 (3.5-5.1) mmol/L Chloride 108 H (98-107) mmol/L Carbon Dioxide 30 (21-32) mmol/L Anion Gap 6.0 (3-11) BUN 7 (7-18) mg/dl Creatinine 0.64 (0.6-1.2) mg/dl Est Cr Clr Drug Dosing 84.1 ml/min Est GFR ( Amer) 117.3 Est GFR (Non-Af Amer) 101.2 BUN/Creatinine Ratio 10.8 (10-20) Glucose 137 H (70-99) mg/dl POC Glucose 204 H (70-99) mg/dl Calcium 8.4 L (8.5-10.1) mg/dl Magnesium 2.1 (1.8-2.4) mg/dl Total Bilirubin 0.4 (0.2-1) mg/dl AST 85 H (15-37) U/L ALT 49 (12-78) U/L Alkaline Phosphatase 168 H (45-117) U/L Total Protein 6.9 (6.4-8.2) gm/dl Albumin 3.4 (3.4-5.0) gm/dl Globulin 3.5 (2.5-4.0) gm/dl Albumin/Globulin Ratio 1.0 (0.9-2) Salicylates (2.8-20) mg/dl Acetaminophen (10-30) ug/ml Ethyl Alcohol mg/dL (0-3) mg/dl 07/06/20 07/06/20 Range/Units 14:04 14:04 WBC (4.8-10.8) K/uL RBC (4.2-5.4) M/uL Hgb (12.0-16.0) g/dL Hct (37-47) % MCV (80-100) fL MCH (25-34) pg MCHC (32-36) g/dL RDW Std Deviation (36.4-46.3) fL RDW Coeff of Ethel (11.5-14.5) % Plt Count (130-400) K/uL MPV (7.4-10.4) fL Immature Gran % (Auto) % Neut % (Auto) % Lymph % (Auto) % [place] % (Auto) % Eos % (Auto) % Baso % (Auto) % Neut # (Auto) (1.4-6.5) K/uL Lymph # (Auto) (1.2-3.4) K/uL [place] # (Auto) (0.11-0.59) K/uL Eos # (Auto) (0-0.5) K/uL Baso # (Auto) (0-0.2) K/uL Immature Gran # (Auto) (0.00-0.02) K/uL RBC Morphology Sodium (136-145) mmol/L Potassium (3.5-5.1) mmol/L Chloride (98-107) mmol/L Carbon Dioxide (21-32) mmol/L Anion Gap (3-11) BUN (7-18) mg/dl Creatinine (0.6-1.2) mg/dl Est Cr Clr Drug Dosing ml/min Est GFR ( Amer) Est GFR (Non-Af Amer) BUN/Creatinine Ratio (10-20) Glucose (70-99) mg/dl POC Glucose (70-99) mg/dl Calcium (8.5-10.1) mg/dl Magnesium (1.8-2.4) mg/dl Total Bilirubin (0.2-1) mg/dl AST (15-37) U/L ALT (12-78) U/L Alkaline Phosphatase (45-117) U/L Total Protein (6.4-8.2) gm/dl Albumin (3.4-5.0) gm/dl Globulin (2.5-4.0) gm/dl Albumin/Globulin Ratio (0.9-2) Salicylates 2.0 L (2.8-20) mg/dl Acetaminophen < 2 L (10-30) ug/ml Ethyl Alcohol mg/dL 394.0 H (0-3) mg/dl Imaging Data Radiologist's Impression: HEAD CT NONCONTRAST CT DOSE: 614.27 mGy.cm HISTORY: fall eval for bleed TECHNIQUE: Multiaxial CT images of the head were performed without the use of intravenous contrast. Automated exposure control was utilized for this study. A dose lowering technique was utilized adhering to the principles of ALARA. Comparison: Head CT 01/18/2020. Findings: The paranasal sinuses and mastoid air cells are clear. The calvarium and skull base are intact. The ventricles and sulci are within normal limits. There is no mass, hematoma, midline shift, or acute infarct. Small focus of encephalomalacia within the right temporal lobe on image 9 remains unchanged. This could be due to old trauma or an old infarct. Impression: No significant change compared to the prior study. No acute intracranial abnormality. ACT 112: Negative or not required by law. Electronically signed by: Delano Murry M.D. 07/06/2020 3:08 PM ECG Data Attestation: I personally reviewed and interpreted this ECG as follows: Indication: + other (Fall) Rate (beats per minute): 97 Rhythm: + normal sinus ECG [place]: + Normal ECG ST segments: no ST elevation ECG Findings: no PVCs Blood Pressure Blood Pressure Findings: Elevated blood pressure Blood Pressure Disposition: Referred to patients primary care provider Head Trauma GCS Score: 15 MDM Narrative I did evaluate the patient as noted above. The patient is presenting with a head injury which occurred 2 days ago. She also appears intoxicated. IV access was established. I did place an order for continuous cardiac monitoring. The monitor showed normal sinus rhythm at a rate of 96 bpm. I did order and personally review the patient's 12-lead EKG as described above. She has no acute ischemic changes. I did order and review the patient's blood work as noted in the electronic medical record. Serum alcohol is 394. Her white count is slightly low at 3.8. She is not anemic. Her platelet count is 103. Glucose is 137. Electrolytes are unremarkable. I did order a CT of the head. I did review the images myself as well as the radiology report as described above. There is no evidence of acute intracranial abnormality. The patient was given a banana bag IV. We did keep her in the emergency department for over 7 hours. I did reassess her several times. She is now awake and alert. She is starting to shake. She does state that she wants alcohol rehabilitation. I did discuss the test results with her. I did have the the therapeutic case manager talk to her. They attempted to place her in 15 different facilities but nobody had a bed. She does have a history of withdrawal seizures. I therefore treated her with Ativan 1 mg IV. She will be hospitalized for her withdrawal symptoms. I did discuss the case with the hospitalist and therapeutic case manager. Impression & Plan Alcohol withdrawal, Alcohol intoxication, Acute head injury, Thrombocytopenia, Leukopenia Discharge Plan Visit Data Chief Complaint: Alcohol Intoxication Stated Complaint: alcohol ED Provider: Mike Monroe Discharge Problem: Alcohol withdrawal, Alcohol intoxication, Acute head injury, Thrombocytopenia, Leukopenia Patient Disposition: Being Evaluated by Hospitalist Forms Stand Alone Forms: [facility] Prescriptions Prescriptions: No Action duloxetine [Cymbalta] 60 mg capsule,delayed release(DR/EC) 60 mg PO QAM Qty: 30 RF: 5 Creon 6,000-19,000 -30,000 unit capsule,delayed release(DR/EC) 1 cap PO TID Qty: 90 RF: 1 gabapentin 300 mg capsule 300 mg PO TID Qty: 90 RF: 1 (DME) FreeStyle Janny 14 Day Sensor Kit See Rx Instructions miscellaneous .MEDSUPPLY Qty: 1 RF: 6 (DME) FreeStyle Janny 14 Day [place] Misc See Rx Instructions miscellaneous .MEDSUPPLY Qty: 1 RF: 0 cholecalciferol (vitamin D3) 1,000 unit capsule 1,000 units PO HS RF: 0 multivitamin tablet 1 tab PO PM RF: 0 nystatin 100,000 unit/gram ointment 1 appln TOP TID PRN (Reason: Skin Irritation) RF: 0 (DME) blood sugar diagnostic [OneTouch Verio test strips] Strip See Rx Instructions .ROUTE .MEDSUPPLY RF: 0 buspirone 5 mg tablet 5 mg PO BID Qty: 60 RF: 5 Touyudi SoloStar U-300 Insulin 300 unit/mL (1.5 mL) insulin pen 16 units SQ QAM RF: 0 Tremfya 100 mg/mL auto-injector 100 mg SQ Q8WK RF: 0 ibuprofen 200 mg Tablet 800 mg PO Q6H PRN (Reason: Pain) RF: 0 clobetasol 0.05 % shampoo 1 appln TOP DAILY PRN (Reason: Rash) RF: 0 duloxetine [Cymbalta] 20 mg capsule,delayed release(DR/EC) 20 mg PO HS RF: 0 Hold Instructions: does not take cyanocobalamin (vitamin B-12) [Vitamin B-12] 1,000 mcg tablet 1,000 mcg PO DAILY RF: 0 clobetasol 0.05 % foam 1 appln TOP BID PRN (Reason: .) RF: 0 Referrals Referrals: Ana Lilia Madrid MD [Primary Care Provider] -
[2020-07-06 14:24] LABS: Basophils # (auto) 0.05 K/uL (0-0.2); Basophils % (auto) 1.3 %; Eosinophils # (auto) 0.06 K/uL (0-0.5); Eosinophils % (auto) 1.6 %; Hematocrit (blood only) 39.9 % (37-47); Hemoglobin 13.4 g/dL (12.0-16.0); Immature Granulocytes # (auto) 0.01 K/uL (0.00-0.02); Immature Granulocytes % (auto) 0.3 %; Lymphocytes # (auto) 1.14 K/uL (1.2-3.4); Mean Corpuscular Hgb Conc 33.6 g/dL (32-36); Mean Corpuscular Volume 89.5 fL (80-100); Monocytes # (auto) 0.31 K/uL (0.11-0.59); Monocytes % (auto) 8.2 %; Neutrophils # (auto) 2.23 K/uL (1.4-6.5); Neutrophils % (auto) 58.6 %; Platelet Count 103 K/uL (130-400); RDW Coefficient of Variation 16.4 % (11.5-14.5); RDW Standard Deviation 53.2 fL (36.4-46.3); Red Blood Count 4.46 M/uL (4.2-5.4)
[2020-07-06 14:45] LABS: Albumin Level 3.4 gm/dl (3.4-5.0); BUN Creatinine Ratio 10.8 (10-20); Calcium 8.4 mg/dl (8.5-10.1); Creatinine Clr Calc Pharmacy 84.1 ml/min; Est GFR (African American) 117.3; Est GFR (Non-African American) 101.2; Magnesium 2.1 mg/dl (1.8-2.4); Potassium 4.2 mmol/L (3.5-5.1)
[2020-07-06 14:46] LABS: RBC Morphology Unremarkable
[2020-07-06 14:48] LABS: Bilirubin,Total 0.4 mg/dl (0.2-1); Globulin 3.5 gm/dl (2.5-4.0); Total Protein 6.9 gm/dl (6.4-8.2)
[2020-07-06 14:51] LABS: Acetaminophen < 2 ug/ml (10-30)
--- NOTE | 2020-07-06 15:10 | CT Scan Report ---
HEAD CT NONCONTRAST CT DOSE: 614.27 mGy.cm HISTORY: fall eval for bleed TECHNIQUE: Multiaxial CT images of the head were performed without the use of intravenous contrast. A utomated exposure control was utilized for this study. A dose lowering technique was utilized adheri ng to the principles of ALARA. Comparison: Head CT 01/18/2020. Findings: The paranasal sinuses and mastoid air cells are clear. The calvarium and skull base are int act. The ventricles and sulci are within normal limits. There is no mass, hematoma, midline shift, or acute infarct. Small focus of encephalomalacia within the right temporal lobe on image 9 remains unc hanged. This could be due to old trauma or an old infarct. Impression: No significant change compared to the prior study. No acute intracranial abnormality. ACT 112: Negative or not required by law. Electronically signed by: Delano Murry M.D. 07/06/2020 3:08 PM
[2020-07-06] MEDS ORDERED: NICOTINE 14 MG/24 HR PATCH TD STA (18:04)
[2020-07-06] MEDS ORDERED: LORazepam 1 MG/2 ML VIAL IV STA (19:42)
--- NOTE | 2020-07-06 20:25 | History & Physical Report ---
Date of Service July 06, 2020 Assessment & Plan (1) Alcohol withdrawal: Alcohol withdrawal/alcohol intoxication/depression with anxiety- Alcohol level 394 upon admission Patient with tachycardia and elevated blood pressure suggesting early withdrawal. Increase buspirone from 5 mg p.o. twice daily to 10 mg p.o. twice daily Increase duloxetine from 60 mg in the morning and 20 mg in the evening to 60 mg p.o. twice daily Increase gabapentin from 300 mg p.o. 3 times daily to 600 mg p[address] on AWSS protocol with IV Ativan Present on Admission?: Yes (2) Alcohol intoxication: See above Present on Admission?: Yes (3) Diabetes type 1, uncontrolled: Continue glargine U3 100 16 units subcu every morning Placed on Accu-Cheks before meals and at bedtime with NovoLog coverage per scale Check hemoglobin A1c Present on Admission?: Yes (4) History of left below knee amputation: Patient has phantom leg pain, that seems to do better with compression stocking Present on Admission?: Yes (5) Depression with anxiety: See above Present on Admission?: Yes (6) Liver cirrhosis, alcoholic: Alcoholic liver cirrhosis/IPMN/chronic pancreatitis/indeterminate 3.1 x 2.5 cm cystic structure of pancreatic head- Most recent CT of abdomen and pelvis on 04/09/2020. Patient was to follow-up with GI for EGD or pancreatic protocol abdominal MRI, but was lost to follow-up. Order pancreatic protocol abdominal MRI Present on Admission?: Yes (7) IPMN (intraductal papillary mucinous neoplasm): See above Present on Admission?: Yes (8) Chronic pancreatitis: See above Present on Admission?: Yes (9) Exocrine pancreatic insufficiency: Continue pancreatic enzymes 1 capsule p.o. 3 times daily with meals Present on Admission?: Yes (10) Tobacco dependence: NicoDerm patch 14 mg as needed Present on Admission?: Yes History of Present Illness Chief Complaint: The patient presents to the emergency department with complaint of alcohol intoxication, and concerns regarding symptoms of withdrawal Primary Care Provider: Ana Lilia Madrid MD The patient is a 54-year-old female with a past medical history including acute head injury, thrombocytopenia, leukopenia, uncontrolled diabetes mellitus type 1, diabetic peripheral neuropathy, left BKA, IPMN, insomnia, vitamin D deficiency, depression with anxiety, history of GI bleed, right temporal lobe encephalomalacia, exocrine pancreatic insufficiency, alcoholic liver cirrhosis, psoriasis, hydrosalpinx and chronic pancreatitis. The patient's chief sales officer became concerned about the patient's health, and called EMS. Emergency department reports that the patient is had veering versions of her story, and is also reports that the patient's neighbor was one who called EMS. She states that she had a recent fall 2 days ago was drinking, and hit her head on the table, but does not feel she has any persistent problems related to that. She denies any recent travels or sick exposures including to [employer]. She has canceled her last 2 appointments with the PCP. She is concerned about withdrawal and wanted to discuss rehab. She is also concerned about her right lower extremity and foot, but she says is cold and is painful. Allergies Allergy/AdvReac Type Severity Reaction Status Date / Time haloperidol [From Haldol] AdvReac Unknown Verified 07/06/20 13:51 Home Medications Home Medications Medication Instructions Recorded Confirmed Type cholecalciferol (vitamin D3) 25 1,000 units PO HS 06/23/19 07/06/20 History mcg (1,000 unit) capsule multivitamin 1 tab PO PM 06/23/19 07/06/20 History duloxetine 60 mg capsule,delayed 60 mg PO QAM #30 cap 08/30/19 07/06/20 Rx release clobetasol 1 appln TOP DAILY PRN 10/29/19 07/06/20 History duloxetine [Cymbalta] 20 mg PO HS 11/05/19 07/06/20 History clobetasol 1 appln TOP BID PRN 01/18/20 07/06/20 History buspirone 5 mg tablet 5 mg PO BID #60 tab 02/04/20 07/06/20 Rx elbwga-uqfwfnhd-axuqseo 1 cap PO TID #90 cap 02/14/20 07/06/20 Rx 6,000-19,000-30,000 unit capsule,delayed rel blood sugar diagnostic ea 02/16/20 06/08/20 History gabapentin 300 mg capsule 300 mg PO TID #90 cap 04/26/20 07/06/20 Rx cyanocobalamin (vitamin B-12) 1,000 mcg PO DAILY tab 05/10/20 07/06/20 History 1,000 mcg tablet nystatin 100,000 unit/gram topical 1 appln TOP TID PRN gm 05/10/20 07/06/20 History ointment flash glucose scanning reader #1 ea 06/07/20 06/08/20 Rx flash glucose sensor #1 ea 06/07/20 06/08/20 Rx guselkumab [Tremfya] 100 mg SQ Q8WK 07/06/20 07/06/20 History ibuprofen 800 mg PO Q6H PRN 07/06/20 07/06/20 History insulin glargine U-300 conc 16 units SQ QAM 07/06/20 07/06/20 History [Toujeo SoloStar U-300 Insulin] Past Med/Surg History Medical History Abnormal TSH Per patient treated with thyroid hormone many years earlier Acute respiratory failure with hypoxia Alcohol dependence Alcohol intoxication delirium Alcohol withdrawal seizure NOT REPORTED BY PATIENT AT TIME OF PAT CALL - LAST EPISODE OVER A YEAR AGO Aspiration pneumonia Bimalleolar ankle fracture Caustic esophageal injury Chronic pancreatitis Cirrhosis of liver "COMPROMISED LIVER" Depression with anxiety Unable to establish with psychiatrist Diabetes type 1, uncontrolled Diabetic peripheral neuropathy associated with type 1 diabetes mellitus DKA (diabetic ketoacidoses) Encephalomalacia Exocrine pancreatic insufficiency History of GI bleed History of left below knee amputation Hydrosalpinx PT UNAWARE Insomnia IPMN (intraductal papillary mucinous neoplasm) Lipoma NECK Lipoma Liver cirrhosis, alcoholic Loose bowel movement Metabolic encephalopathy Pancreatic insufficiency Polycystic ovarian syndrome Psoriasis SBO (small bowel obstruction) Resolved Tobacco dependence Vitamin D deficiency Surgical History Amputation of left lower extremity TO APPROX MID CALF History of ankle surgery 02/2019 left ankle ex fix, grade 2 view with MAC 3 and 7.0 ETT History of tooth extraction Family History Uncle Diabetes Mother Breast cancer Sister Breast cancer Father Prostate cancer Other Family history of breast cancer in mother Family history of breast cancer in sister Denies family history of Ovarian cancer Myocardial infarction Colorectal cancer Social History Smoking Status: Former smoker Tobacco Type: Cigarettes packs per day: 0.75; Cigarettes Per Day: 15; Second Hand Exposure: No; Hx Alcohol Use: Yes Alcohol type: wine Hx Substance Use: No Preferred Language: Liberian Communication Ability: Effective Visual Impairment: No Limitations Bereavement Coordinator Required: No Beliefs That Will Affect Care: None marital status: marital status details: no children Current Living Situation: Alone current occupational status: disabled Feels Safe at Home: Yes Assistive Devices: Glasses, Walker and Wheelchair Review of Systems Review of Systems: The patient denies chest pain, palpitations, shortness of breath, dyspnea on exertion, cough, lower extremity swelling, sore throat, fevers, chills, sweats, nausea, vomiting, diarrhea , constipation, abdominal pain, pelvic pain, blood in urine or stool, dysuria, urinary frequency or urgency, loss of consciousness, abnormal bruising or bleeding, focal weakness, numbness or tingling in arms or legs, generalized arthralgias or myalgias, back or neck pain, or night sweats. The review of systems is otherwise negative other than for that already noted above, and at least 10 systems have been reviewed. Physical Exam Physical Exam: The patient is awake, alert and oriented 3, looks malnourished, scalp with severe psoriasis and hair loss, lying in bed and in otherwise no acute distress. HEENT--PERRL, EOMI, mucous membranes and oropharynx dry. Neck--supple. No JVD. No bruits. Thyroid normal, trachea midline, no adenopathy. Heart--normal S1 and S2. No murmurs, rubs or gallops. Lungs--clear bilaterally, no respiratory distress, no accessory muscle use. Abdomen--normal bowel sounds and soft. Nontender. Nondistended. Extremities--right lower extremity cool with decreased pulses. Left BKA noted and painful to touch Dermatologic--psoriasis on scalp was noted, with eczema on hands and lower extremities. Neurologic--cranial nerves II through XII grossly intact. Rheumatologic--normal range of motion. Limited left BKA Psychiatric--normal affect. Results & Data Results & Data ([facility]) Vital Signs (Past 12 Hours) Vital Signs Temp Pulse Pulse Resp BP BP Pulse Ox 07/06/20 18:21 18 127/82 96 07/06/20 18:20 127/82 96 07/06/20 18:14 95 07/06/20 16:30 92 H 13 132/85 93 07/06/20 16:00 95 H 19 128/87 93 07/06/20 15:30 90 16 130/83 93 07/06/20 15:00 85 14 126/84 92 07/06/20 14:32 91 H 13 07/06/20 14:31 91 H 15 118/81 07/06/20 14:30 93 H 14 118/81 07/06/20 14:20 95 07/06/20 12:49 98.4 F 102 H 22 120/84 95 Laboratory Results Laboratory Results WBC 3.80 K/uL (4.8-10.8) L 07/06/20 14:04 RBC 4.46 M/uL (4.2-5.4) 07/06/20 14:04 Hgb 13.4 g/dL (12.0-16.0) 07/06/20 14:04 Hct 39.9 % (37-47) 07/06/20 14:04 MCV 89.5 fL (80-100) 07/06/20 14:04 MCH 30.0 pg (25-34) 07/06/20 14:04 MCHC 33.6 g/dL (32-36) 07/06/20 14:04 RDW Std Deviation 53.2 fL (36.4-46.3) H 07/06/20 14:04 RDW Coeff of Ethel 16.4 % (11.5-14.5) H 07/06/20 14:04 Plt Count 103 K/uL (130-400) L 07/06/20 14:04 MPV 9.0 fL (7.4-10.4) 07/06/20 14:04 Immature Gran % (Auto) 0.3 % 07/06/20 14:04 Neut % (Auto) 58.6 % 07/06/20 14:04 Lymph % (Auto) 30.0 % 07/06/20 14:04 Stokes % (Auto) 8.2 % 07/06/20 14:04 Eos % (Auto) 1.6 % 07/06/20 14:04 Baso % (Auto) 1.3 % 07/06/20 14:04 Neut # (Auto) 2.23 K/uL (1.4-6.5) 07/06/20 14:04 Lymph # (Auto) 1.14 K/uL (1.2-3.4) L 07/06/20 14:04 Stokes # (Auto) 0.31 K/uL (0.11-0.59) 07/06/20 14:04 Eos # (Auto) 0.06 K/uL (0-0.5) 07/06/20 14:04 Baso # (Auto) 0.05 K/uL (0-0.2) 07/06/20 14:04 Immature Gran # (Auto) 0.01 K/uL (0.00-0.02) 07/06/20 14:04 RBC Morphology Unremarkable 07/06/20 14:04 Sodium 144 mmol/L (136-145) 07/06/20 14:04 Potassium 4.2 mmol/L (3.5-5.1) 07/06/20 14:04 Chloride 108 mmol/L (98-107) H 07/06/20 14:04 Carbon Dioxide 30 mmol/L (21-32) 07/06/20 14:04 Anion Gap 6.0 (3-11) 07/06/20 14:04 BUN 7 mg/dl (7-18) 07/06/20 14:04 Creatinine 0.64 mg/dl (0.6-1.2) 07/06/20 14:04 Est Cr Clr Drug Dosing 84.1 ml/min 07/06/20 14:04 Est GFR ( Amer) 117.3 07/06/20 14:04 Est GFR (Non-Af Amer) 101.2 07/06/20 14:04 BUN/Creatinine Ratio 10.8 (10-20) 07/06/20 14:04 Glucose 137 mg/dl (70-99) H 07/06/20 14:04 POC Glucose 179 mg/dl (70-99) H 07/06/20 21:24 Calcium 8.4 mg/dl (8.5-10.1) L 07/06/20 14:04 Magnesium 2.1 mg/dl (1.8-2.4) 07/06/20 14:04 Total Bilirubin 0.4 mg/dl (0.2-1) 07/06/20 14:04 AST 85 U/L (15-37) H 07/06/20 14:04 ALT 49 U/L (12-78) 07/06/20 14:04 Alkaline Phosphatase 168 U/L (45-117) H 07/06/20 14:04 Total Protein 6.9 gm/dl (6.4-8.2) 07/06/20 14:04 Albumin 3.4 gm/dl (3.4-5.0) 07/06/20 14:04 Globulin 3.5 gm/dl (2.5-4.0) 07/06/20 14:04 Albumin/Globulin Ratio 1.0 (0.9-2) 07/06/20 14:04 Folate > 24.00 ng/ml (>5.38) 07/06/20 22:12 Salicylates 2.0 mg/dl (2.8-20) L 07/06/20 14:04 Acetaminophen < 2 ug/ml (10-30) L 07/06/20 14:04 Ethyl Alcohol mg/dL 394.0 mg/dl (0-3) H 07/06/20 14:04 Code Status & VTE Plan Code Status Full code VTE Prophylaxis Plan VTE Prophylaxis will be ordered: Yes PG Care Time/CCT Total # of Minutes Spent Total Time Spent with Patient: Total time spent is greater than 50% in coordination of care (as documented) at patient's floor/unit and/or counseling patient: Coding Level of Care Code 49374 Initial Inpt Care Lvl 3 Diagnoses Alcohol withdrawal F10.230 Complication of substance-induced condition: uncomplicated Alcohol intoxication F10.920 Complication of substance-induced condition: uncomplicated Diabetes type 1, uncontrolled E10.65 History of left below knee amputation Z89.512 Depression with anxiety F41.8 Liver cirrhosis, alcoholic K70.30 Ascites presence: without ascites IPMN (intraductal papillary mucinous neoplasm) D49.0 Chronic pancreatitis K86.0 Pancreatitis type: alcohol induced Exocrine pancreatic insufficiency K86.81 Tobacco dependence F17.200 (1) Alcohol withdrawal Complication of substance-induced condition: uncomplicated Qualified Code(s): F10.230 - Alcohol dependence with withdrawal, uncomplicated (2) Alcohol intoxication Complication of substance-induced condition: uncomplicated Qualified Code(s): F10.920 - Alcohol use, unspecified with intoxication, uncomplicated (3) Liver cirrhosis, alcoholic Ascites presence: without ascites Qualified Code(s): K70.30 - Alcoholic cirrhosis of liver without ascites (4) Chronic pancreatitis Pancreatitis type: alcohol induced Qualified Code(s): K86.0 - Alcohol-induced chronic pancreatitis
[2020-07-06] MEDS ORDERED: GLUCOSE 10 TABS/TUBE PO PRN (21:39)
[2020-07-06] MEDS ORDERED: DEXTROSE 50% 50 ML SYRINGE IV PRN (21:39)
[2020-07-06] MEDS ORDERED: ATIVAN IV ALCOHOL WITHDRAWL IV PRN (21:39)
[2020-07-06] MEDS ORDERED: LORazepam 3 MG/6 ML VIAL IV PRN (21:39)
[2020-07-06] MEDS ORDERED: GLUCAGON FOR INJ 1 MG VIAL SQ PRN (21:39)
[2020-07-06] MEDS ORDERED: NYSTATIN OINT 15 GM TUBE EXT PRN (21:39)
[2020-07-06] MEDS ORDERED: ALUMINUM/MAGNESIUM SUSP 30 ML UDC PO PRN (21:39)
[2020-07-06] MEDS ORDERED: CARBOHYDRATES FOR HYPOGLYCEMIA PO PRN (21:39)
[2020-07-06] MEDS ORDERED: NON-FORMULARY MEDICATION (Clobetasol 1 APPLN) TOP PRN (21:39)
[2020-07-06] MEDS ORDERED: MAGNESIUM HYDROXIDE SUSP 30 ML UDC PO PRN (21:39)
[2020-07-06] MEDS ORDERED: LORazepam 2 MG/4 ML VIAL IV PRN (21:39)
[2020-07-06] MEDS ORDERED: ONDANSETRON INJ 2 MG/ML 2 ML VIAL IV PRN (21:39)
[2020-07-06] MEDS ORDERED: GLUCOSE 40% GEL 15 GM TUBE PO PRN (21:39)
[2020-07-06] MEDS: LORazepam 1 MG/2 ML VIAL IV PRN (22:17)
[2020-07-06] MEDS: NSS + 20MEQ KCL 20 MEQ/1,000 ML BAG IV SCH (22:17)
[2020-07-06] MEDS: CHOLECALCIFEROL 1,000 UNITS 25 MCG TAB PO SCH (22:26)
[2020-07-06] MEDS: INSULIN ASPART 100 UNITS/ML 3 ML PEN SC SCH (22:26)
[2020-07-06] MEDS: GABAPENTIN 300 MG CAP PO SCH (22:27)
[2020-07-06] MEDS: THIAMINE HCL 100 MG TAB PO SCH (22:27)
[2020-07-06] MEDS: MULTIVITAMIN TAB PO SCH (22:27)
[2020-07-06] MEDS: FOLIC ACID 1 MG TAB PO SCH (22:27)
[2020-07-06] MEDS: DULOXETINE HCL 60 MG CAP PO SCH (22:27)
[2020-07-07] MEDS ORDERED: ACETAMINOPHEN 325 MG TAB PO PRN (01:00)
--- NOTE | 2020-07-07 06:12 | Electrocardiogram Report ---
Test Reason : Blood Pressure : / mmHG Vent. Rate : 097 BPM Atrial Rate : 097 BPM P-R Int : 140 ms QRS Dur : 082 ms QT Int : 350 ms P-R-T Axes : 070 061 068 degrees QTc Int : 444 ms Normal sinus rhythm Normal ECG When compared with ECG of 09-APR-2020 00:54, No significant change was found Confirmed by Uche Reid ([id number]) on 07/07/2020 6:12:18 AM Referred By: REFERRED SELF Confirmed By:Uche Reid
[2020-07-07 07:00] LABS: Appearance Urine Cloudy (Clear); Bacteria Urine Automated 1+ (Negative); Bilirubin Urine Negative (Negative); Blood Urine Trace (Negative); Color Urine Yellow; Glucose Urine UA Negative (Negative); Ketones Urine Negative (Negative); Leukocyte Esterase Urine 3+ (Negative); Nitrite Urine Positive (Negative); Specific Gravity Urine 1.011 (1.000-1.030); Urobilinogen Urine Negative (Negative); WBC Urine Automated >30 /hpf (0-5); pH Urine >= 9.0 (4.5-7.5)
[2020-07-07 07:15] LABS: Amphetamines+Metham, Urine Neg (Neg); Barbiturates, Urine Neg (Neg); Benzodiazepine, Urine Neg (Neg); Cocaine, Urine Neg (Neg); MDMA (Ecstacy), Urine Neg (Neg); Methadone, Urine Neg (Neg); Opiate, Urine Neg (Neg); Phencyclidine, Urine Neg (Neg)
[2020-07-07 07:18] LABS: Protein Urine Trace (Negative); Sulfosalicylic Acid Urine Positive (Negative)
[2020-07-07] MEDS: ENOXAPARIN INJ 40 MG/0.4 ML SYR SQ SCH (07:52)
[2020-07-07] MEDS: CYANOCOBALAMIN 500 MCG TABLET (VITAMIN B-12) PO SCH (07:53)
[2020-07-07] MEDS: INSULIN ASPART 100 UNITS/ML 3 ML PEN SC SCH ×4 (07:53→20:40)
[2020-07-07] MEDS: ASPIRIN 81 MG ECTAB PO SCH (07:53)
[2020-07-07] MEDS: PANCREAZE (LIPASE 10,500U) CAP PO SCH ×3 (07:54→17:57)
[2020-07-07] MEDS: FOLIC ACID 1 MG TAB PO SCH (07:54)
[2020-07-07] MEDS: THIAMINE HCL 100 MG TAB PO SCH (07:54)
[2020-07-07] MEDS: GABAPENTIN 300 MG CAP PO SCH ×3 (07:54→20:39)
[2020-07-07] MEDS: DULOXETINE HCL 60 MG CAP PO SCH ×2 (07:55→20:37)
[2020-07-07] MEDS: NICOTINE 14 MG/24 HR PATCH TD SCH (07:57)
[2020-07-07 08:08] LABS: Estimated Average Glucose 197 mg/dl; Hemoglobin A1C 8.5 % (4.5-5.6)
[2020-07-07] MEDS ORDERED: INSULIN GLARGINE SOLOSTAR 100 UNITS/ML 3 ML PEN SC SCH (09:00)
[2020-07-07] MEDS ORDERED: NON-FORMULARY MEDICATION (Clobetasol 1 APPLN) TOP SCH (09:00)
--- NOTE | 2020-07-07 09:01 | Ultrasound Report ---
US arterial duplex LE RT CLINICAL HISTORY: cool extremity, hx of peripheral arterial disease COMPARISON STUDY: None. FINDINGS: The right ankle-brachial index measured with the posterior tibial artery was 1.1 and the do rsalis pedis artery was 0.9. No evidence for arterial occlusion. Monophasic waveforms throughout the majority of the right lower extremity arterial system with multifocal elevated peak systolic velociti es within the popliteal artery consistent with stenosis. IMPRESSION: 1. Right ankle-brachial index measured between 0.9, 1.1. 2. Monophasic waveforms of the majority of the right lower extremity arterial system consistent with diffuse atherosclerotic disease. 3. Multifocal elevated peak systolic velocities within the posterior artery consistent with areas of stenosis. ACT 112: Negative or not required by law. Electronically signed by: Delano Murry M.D. 07/07/2020 9:00 AM
[2020-07-07] MEDS: NSS + 20MEQ KCL 20 MEQ/1,000 ML BAG IV SCH (09:45)
[2020-07-07] MEDS ORDERED: GADOXETATE DISODIUM IV ONE (12:34)
[2020-07-07] MEDS: LORazepam 1 MG/2 ML VIAL IV PRN (13:01)
--- NOTE | 2020-07-07 13:23 | Magnetic Resonance Report ---
MRI OF THE ABDOMEN AND PELVIS WITH AND WITHOUT CONTRAST LIVER PROTOCOL CLINICAL HISTORY: Alcoholic cirrhosis, IPMN, pancreatic head cyst. COMPARISON STUDY: MRI of the abdomen December 28, 2018. CT of the abdomen and pelvis April 09, 2020. TECHNIQUE: Utilizing a 1.5 Nilsa magnet and dedicated coil, multiplanar, multiecho imaging of the abd omen was performed pre and postcontrast administration. Intravenous injection of 10 cc of Eovist was uneventful. Post contrast imaging was performed utilizing dynamic enhancement with 20 minute delayed phase imaging. FINDINGS: Loss of signal within the liver on out of phase sequence indicates fatty infiltration. No h epatic lesions are identified. There is mild nodularity of the liver surface, most evident within the lateral segment. This indicates cirrhosis. The main, left and right portal veins are patent. There i s no intra or extrahepatic biliary ductal dilatation. No common bile duct calculi are identified. Mil d gallbladder distention is unchanged. No gallstones are identified. Note is made of multiple suspect ed tiny peribiliary cysts. These are unchanged since MRI of December 28, 2018. Dilatation of the main pa ncreatic duct is similar to MRI of December 28, 2018. This measures 1.2 cm in caliber. A 2.6 x 2.1 cm T2 hyperintense round lesion within the pancreatic head has mildly increased in size since MRI of December 28, 2018. This has decreased in size since exam of April 09, 2020. Smaller pancreatic cystic lesions a re noted. This has no nodular enhancement. No peripancreatic infiltration or fluid is noted. The sple en, adrenal glands and kidneys are unremarkable. There is no hydronephrosis. No abdominal lymphadenop athy is present. IMPRESSION: 1. Cirrhosis. Fatty infiltration of the liver. No hepatic lesions. No biliary ductal dilatation. 2. No change in pancreatic ductal dilatation since MRI of December 28, 2018. Several cystic pancreatic l esions, the largest of which is a 2.6 x 2.1 cm pancreatic head lesion which has mildly increased in s ize since MRI of December 28, 2018 but decreased in size since CT of April 09, 2020. This favors a side br anch IPMN. Dilatation of the main pancreatic duct is likely due to chronic pancreatitis. A main duct IPMN could appear similar although is considered less likely. A follow-up MRI in one year to ensure s tability is recommended. ACT 112: Negative or not required by law. Electronically signed by: Bola Ivey M.D. 07/07/2020 1:22 PM
--- NOTE | 2020-07-07 15:30 | Hospitalist Progress Note ---
Date of Service July 07, 2020 Assessment & Plan (1) Alcohol withdrawal: 54-year-old female with a past medical history including acute head injury, thrombocytopenia, leukopenia, uncontrolled diabetes mellitus type 1, diabetic peripheral neuropathy, left BKA, IPMN, insomnia, vitamin D deficiency, depression with anxiety, history of GI bleed, right temporal lobe encephalomalacia, exocrine pancreatic insufficiency, alcoholic liver cirrhosis, psoriasis, hydrosalpinx and chronic pancreatitis. Alcohol withdrawal: - patient is high risk for alcohol withdrawal symptoms given history - alcohol level of 394 on admission - Ativan per protocol for withdrawal symptoms - continue on gabapentin 600mg TID, duloxetine 60mg BID, buspirone 10mg BID T1DM: - continue to monitor BSGs ACHS - A1c this AM 8.5 Liver cirrhosis: - Alcoholic liver cirrhosis/IPMN/chronic pancreatitis/indeterminate 3.1 x 2.5 cm cystic structure of pancreatic head - Patient was to follow-up with GI for EGD or pancreatic protocol abdominal MRI, but was lost to follow-up. - Order pancreatic protocol abdominal MRI (2) Diabetes type 1, uncontrolled: (3) History of left below knee amputation: (4) Depression with anxiety: (5) Alcohol dependence: (6) Tobacco dependence: Admission and Anticipated Discharge Date Admission Date: July 06, 2020 Supervising Physician Co-Signing Physician Notes I personally examined the patient and verified all jay points of history and exam, discussed case, and agree with decision making with Dr Thakkar. feeling ok at this time vitals noted nad heent nc at mmm breathing unlabored no accessory muscles neuro no focal deficits EtOH wtihdrawal / abuse - symptom triggered therapy for withdrawal, supportive care DM1 - insulin dispo - med surg for now, rehab on discharge Subjective Patient feels like she is doing fine this morning only requiring three rounds of ativan overnight and into the morning. Denies history of seizures from withdrawals or issues with stopping drinking before. States that she only drinks about two glasses of wine a night, but endorses that she has probably had >5 drinks in a day approximately 250 times over the last year. Review of Systems Review of Systems: All systems reviewed & are unremarkable except as noted in Subjective Physical Exam Constitutional: WD/WN, vitals as above Eyes: PERRL, conjunctivae normal, anicteric sclerae Respiratory: normal respiratory effort, lungs clear to auscultation Cardiovascular: Rate/Rhythm: regular rate and regular rhythm Heart Sounds: no gallop, no murmur and no cardiac rub Vessels: no JVD Gastrointestinal (Abdomen): normal bowel sounds, soft, nontender, no hep atosplenomegaly Neurologic: PERRL, EOMI, accommodation nl, no face palsy, no dysarthria Psychiatric: Orientation: alert and oriented x 3 Results & Data Results & Data ([facility]) Vital Signs (Past 12 Hours) Vital Signs Temp Pulse Resp BP Pulse Ox 07/07/20 11:11 37.1 C 101 H 20 187/109 H 94 07/07/20 07:56 37.5 C 106 H 20 175/99 H 90 07/07/20 04:07 36.6 C 113 H 20 161/91 H 93 Laboratory Results 07/07/20 07/07/20 07/07/20 Range/Units 16:58 12:51 07:39 POC Glucose 101 H 70 105 H (70-99) mg/dl Estimat Average Glucose mg/dl Hemoglobin A1c (4.5-5.6) % Folate (>5.38) ng/ml Urine Color Urine Appearance (Clear) Urine pH (4.5-7.5) Ur Specific Trevor (1.000-1.030) Urine Protein (Negative) Urine Glucose (UA) (Negative) Urine Ketones (Negative) Urine Blood (Negative) Urine Nitrite (Negative) Urine Bilirubin (Negative) Urine Urobilinogen (Negative) Ur Leukocyte Esterase (Negative) Urine WBC (Auto) (0-5) /hpf Urine RBC (Auto) (0-4) /hpf U Hyaline Cast (Auto) (0-5) /lpf U Epithel Cells (Auto) (0-5) /lpf Urine Bacteria (Auto) (Negative) Urine Yeast Urine Opiates Screen (Neg) Ur Methadone, Qual (Neg) Urine Barbiturates (Neg) Ur Phencyclidine (PCP) (Neg) U Amphetamin/Meth Scrn (Neg) MDMA (Ecstasy) Screen (Neg) U Benzodiazepines Scrn (Neg) Ur Cocaine Metabolite (Neg) U Marijuana (THC) Screen (Neg) 07/07/20 07/07/20 07/07/20 Range/Units 06:45 06:45 06:31 POC Glucose (70-99) mg/dl Estimat Average Glucose 197 mg/dl Hemoglobin A1c 8.5 H (4.5-5.6) % Folate (>5.38) ng/ml Urine Color Yellow Urine Appearance Cloudy A (Clear) Urine pH >= 9.0 H (4.5-7.5) Ur Specific Trevor 1.011 (1.000-1.030) Urine Protein Trace H (Negative) Urine Glucose (UA) Negative (Negative) Urine Ketones Negative (Negative) Urine Blood Trace H (Negative) Urine Nitrite Positive A (Negative) Urine Bilirubin Negative (Negative) Urine Urobilinogen Negative (Negative) Ur Leukocyte Esterase 3+ H (Negative) Urine WBC (Auto) >30 H (0-5) /hpf Urine RBC (Auto) 5-10 H (0-4) /hpf U Hyaline Cast (Auto) 1-5 (0-5) /lpf U Epithel Cells (Auto) 10-20 H (0-5) /lpf Urine Bacteria (Auto) 1+ H (Negative) Urine Yeast Not Reportable Urine Opiates Screen Neg (Neg) Ur Methadone, Qual Neg (Neg) Urine Barbiturates Neg (Neg) Ur Phencyclidine (PCP) Neg (Neg) U Amphetamin/Meth Scrn Neg (Neg) MDMA (Ecstasy) Screen Neg (Neg) U Benzodiazepines Scrn Neg (Neg) Ur Cocaine Metabolite Neg (Neg) U Marijuana (THC) Screen Neg (Neg) 07/06/20 07/06/20 Range/Units 22:12 21:24 POC Glucose 179 H (70-99) mg/dl Estimat Average Glucose mg/dl Hemoglobin A1c (4.5-5.6) % Folate > 24.00 (>5.38) ng/ml Urine Color Urine Appearance (Clear) Urine pH (4.5-7.5) Ur Specific Trevor (1.000-1.030) Urine Protein (Negative) Urine Glucose (UA) (Negative) Urine Ketones (Negative) Urine Blood (Negative) Urine Nitrite (Negative) Urine Bilirubin (Negative) Urine Urobilinogen (Negative) Ur Leukocyte Esterase (Negative) Urine WBC (Auto) (0-5) /hpf Urine RBC (Auto) (0-4) /hpf U Hyaline Cast (Auto) (0-5) /lpf U Epithel Cells (Auto) (0-5) /lpf Urine Bacteria (Auto) (Negative) Urine Yeast Urine Opiates Screen (Neg) Ur Methadone, Qual (Neg) Urine Barbiturates (Neg) Ur Phencyclidine (PCP) (Neg) U Amphetamin/Meth Scrn (Neg) MDMA (Ecstasy) Screen (Neg) U Benzodiazepines Scrn (Neg) Ur Cocaine Metabolite (Neg) U Marijuana (THC) Screen (Neg) Medications Administered Current Inpatient Medications Acetaminophen (Acetaminophen 325 Mg Tab) 650 mg PO Q4H PRN PRN Reason: pain Stop: 08/06/20 00:59 Last Admin: 07/07/20 01:44 Dose: 650 mg Documented by: Al Hydrox/Mg Hydrox/Simethicone (Aluminum/Magnesium Susp 30 Ml Udc) 15 ml PO Q4H PRN PRN Reason: Dyspepsia Stop: 08/05/20 21:38 Lipase/Protease/Amylase (Pancreaze (Lipase 10,500u) Cap) 1 cap PO TIDM [facility] Stop: 08/06/20 08:59 Last Admin: 07/07/20 17:57 Dose: 1 cap Documented by: Aspirin (Aspirin 81 Mg Ectab) 81 mg PO QAM [facility]PIT Stop: 08/06/20 08:59 Last Admin: 07/07/20 07:53 Dose: 81 mg Documented by: Buspirone HCl (Buspirone 5 Mg Tab) 10 mg PO BID ARPIT Stop: 08/05/20 21:38 Last Admin: 07/07/20 07:55 Dose: 10 mg Documented by: Cyanocobalamin (Cyanocobalamin 500 Mcg Tablet (Vitamin B-12)) 1,000 mcg PO DAILY ARPIT Stop: 08/06/20 08:59 Last Admin: 07/07/20 07:53 Dose: 1,000 mcg Documented by: Dextrose (Dextrose 50% 50 Ml Syringe) 25 - 50 ml IV UD PRN; Protocol PRN Reason: Hypoglycemia Protocol Stop: 08/05/20 21:38 Duloxetine HCl (Duloxetine Hcl 60 Mg Cap) 60 mg PO BID ARPIT Stop: 08/05/20 21:38 Last Admin: 07/07/20 07:55 Dose: 60 mg Documented by: Enoxaparin Sodium (Enoxaparin Inj 40 Mg/0.4 Ml Syr) 40 mg SQ Q24H ARPIT Stop: 08/06/20 08:59 Last Admin: 07/07/20 07:52 Dose: 40 mg Documented by: Folic Acid (Folic Acid 1 Mg Tab) 1 mg PO QAM ARPIT Stop: 08/05/20 21:38 Last Admin: 07/07/20 07:54 Dose: 1 mg Documented by: Gabapentin (Gabapentin 300 Mg Cap) 600 mg PO TID ARPIT Stop: 08/05/20 21:38 Last Admin: 07/07/20 13:02 Dose: 600 mg Documented by: Glucagon (Glucagon For Inj 1 Mg Vial) 1 mg SQ UD PRN; Protocol PRN Reason: Hypoglycemia Protocol Stop: 08/05/20 21:38 Glucose (Glucose 10 Tabs/Tube) 4 - 8 tabs PO UD PRN; Protocol PRN Reason: Hypoglycemia Protocol Stop: 08/05/20 21:38 Glucose (Glucose 40% Gel 15 Gm Tube) 15 - 30 gm PO UD PRN; Protocol PRN Reason: Hypoglycemia Protocol Stop: 08/05/20 21:38 Lorazepam (Ativan) 1 mg in 2 mls @ 2 mls/min IV UD PRN; Protocol PRN Reason: EtOH Withdrawl AWSS Score 6,7 Stop: 08/05/20 21:38 Last Admin: 07/07/20 13:01 Dose: 2 mls/min Documented by: Lorazepam (Ativan) 2 mg in 4 mls @ 4 mls/min IV UD PRN; Protocol PRN Reason: EtOH Withdrawl AWSS Score 8,9 Stop: 08/05/20 21:38 Lorazepam (Ativan) 3 mg in 6 mls @ 4 mls/min IV ONCE PRN; Protocol PRN Reason: EtOH Withdrawl AWSS Score >=10 Stop: 08/05/20 21:38 Potassium Chloride/Sodium Chloride (Normal Saline W/20 Meq Kcl) 20 meq in 1,000 mls @ 100 mls/hr IV .Q10H ARPIT Stop: 08/05/20 21:38 Last Admin: 07/07/20 09:45 Dose: 100 mls/hr Documented by: Insulin Aspart (Insulin Aspart 100 Units/Ml 3 Ml Pen) 0 units SC ACHS ARPIT Stop: 08/05/20 21:38 Last Admin: 07/07/20 13:30 Dose: Not Given Documented by: Magnesium Hydroxide (Magnesium Hydroxide Susp 30 Ml Udc) 30 ml PO Q12H PRN PRN Reason: Constipation Stop: 08/05/20 21:38 Miscellaneous (Remove Nicoderm Patch) 1 ea N/A DAILY@0859 [facility] Stop: 08/06/20 08:58 Last Admin: 07/07/20 07:57 Dose: 1 ea Documented by: Miscellaneous (Carbohydrates For Hypoglycemia ) 15 - 30 gm PO UD PRN PRN Reason: Hypoglycemia Protocol Stop: 08/05/20 21:38 Multivitamins (Multivitamin Tab) 1 tab PO PM [facility] Stop: 08/05/20 21:38 Last Admin: 07/06/20 22:27 Dose: 1 tab Documented by: Nicotine (Nicotine 14 Mg/24 Hr Patch) 14 mg TD QAM [facility] Stop: 08/06/20 08:59 Last Admin: 07/07/20 07:57 Dose: Not Given Documented by: Nystatin (Nystatin Oint 15 Gm Tube) 1 appln EXT TID PRN PRN Reason: Skin Irritation Stop: 08/05/20 21:38 Ondansetron HCl (Ondansetron Inj 2 Mg/Ml 2 Ml Vial) 4 mg IV Q6H PRN PRN Reason: Nausea Stop: 08/05/20 21:38 Thiamine HCl (Thiamine Hcl 100 Mg Tab) 100 mg PO QAM [facility]PIT Stop: 08/05/20 21:38 Last Admin: 07/07/20 07:54 Dose: 100 mg Documented by: Vitamin D (Cholecalciferol 1,000 Units 25 Mcg Tab) 1,000 units PO HS [facility] Stop: 08/05/20 21:38 Last Admin: 07/06/20 22:26 Dose: 1,000 units Documented by: Resident Activity Tracking Resident Involvement: Resident Care Provided Care Provided: Adult Hospital Medicine (1) Alcohol dependence Complication of substance-induced condition: uncomplicated (2) Alcohol withdrawal Complication of substance-induced condition: uncomplicated Qualified Code(s): F10.230 - Alcohol dependence with withdrawal, uncomplicated
--- NOTE | 2020-07-07 17:34 | Billing Data ---
Date of Service July 07, 2020 Coding Level of Care Code 81491 Subseq Hosp Care Lvl 3
[2020-07-07] MEDS: MULTIVITAMIN TAB PO SCH (20:38)
[2020-07-07] MEDS: CHOLECALCIFEROL 1,000 UNITS 25 MCG TAB PO SCH (20:39)
[2020-07-08 00:31] LABS: Cdiff Antigen Negative; Cdiff Toxin A+B Negative Cdiff Toxin (Negative)
[2020-07-08] MEDS: NSS + 20MEQ KCL 20 MEQ/1,000 ML BAG IV SCH ×2 (01:41→09:06)
[2020-07-08] MEDS ORDERED: RASPBERRY SYRUP 5 ML UDP PO SCH (06:00)
[2020-07-08] MEDS ORDERED: VANCOMYCIN HCL 125 MG/2.5ML SOLN PO SCH (06:00)
--- NOTE | 2020-07-08 07:11 | Hospitalist Progress Note ---
Date of Service July 08, 2020 Assessment & Plan Admission and Anticipated Discharge Date Admission Date: July 06, 2020 Results & Data Results & Data ([facility]) Vital Signs (Past 12 Hours) Vital Signs Temp Pulse Pulse Resp BP Pulse Ox 07/07/20 23:40 106 H 07/07/20 23:00 36.5 C 99 H 16 168/95 H 98 07/07/20 19:58 37 C 97 H 14 155/99 H 97
[2020-07-08 07:29] LABS: Hematocrit (blood only) 39.5 % (37-47); Hemoglobin 13.4 g/dL (12.0-16.0); Mean Corpuscular Hgb Conc 33.9 g/dL (32-36); Mean Corpuscular Volume 88.6 fL (80-100); RDW Coefficient of Variation 15.6 % (11.5-14.5); RDW Standard Deviation 49.7 fL (36.4-46.3); Red Blood Count 4.46 M/uL (4.2-5.4); White Blood Count 2.65 K/uL (4.8-10.8)
[2020-07-08 07:36] LABS: Prothrombin Time 10.9 Seconds (9.0-12.0)
[2020-07-08 08:01] LABS: Basophils # (auto) 0.01 K/uL (0-0.2); Basophils % (auto) 0.4 %; Eosinophils # (auto) 0.05 K/uL (0-0.5); Eosinophils % (auto) 1.9 %; Giant Platelets 1+; Immature Granulocytes # (auto) 0.02 K/uL (0.00-0.02); Immature Granulocytes % (auto) 0.8 %; Lymphocytes # (auto) 0.75 K/uL (1.2-3.4); Lymphocytes % (auto) 28.3 %; Mean Platelet Volume 10.2 fL (7.4-10.4); Monocytes # (auto) 0.18 K/uL (0.11-0.59); Monocytes % (auto) 6.8 %; Neutrophils # (auto) 1.64 K/uL (1.4-6.5); Neutrophils % (auto) 61.8 %; Platelet Count 78 K/uL (130-400); Platelet Estimate Decreased (Normal)
[2020-07-08 08:09] LABS: Albumin Globulin Ratio 0.9 (0.9-2); Albumin Level 3.5 gm/dl (3.4-5.0); BUN Creatinine Ratio 5.9 (10-20); Bilirubin,Total 1.2 mg/dl (0.2-1); Calcium 9.8 mg/dl (8.5-10.1); Creatinine Clr Calc Pharmacy 98.7 ml/min; Est GFR (African American) 119.1; Est GFR (Non-African American) 102.8; Globulin 3.8 gm/dl (2.5-4.0); Potassium 3.5 mmol/L (3.5-5.1); Total Protein 7.3 gm/dl (6.4-8.2)
[2020-07-08] MEDS: NICOTINE 14 MG/24 HR PATCH TD SCH (08:57)
[2020-07-08] MEDS: THIAMINE HCL 100 MG TAB PO SCH (08:59)
[2020-07-08] MEDS: FOLIC ACID 1 MG TAB PO SCH (08:59)
[2020-07-08] MEDS: DULOXETINE HCL 60 MG CAP PO SCH (08:59)
[2020-07-08] MEDS: CYANOCOBALAMIN 500 MCG TABLET (VITAMIN B-12) PO SCH (08:59)
[2020-07-08] MEDS: PANCREAZE (LIPASE 10,500U) CAP PO SCH (09:00)
[2020-07-08] MEDS: GABAPENTIN 300 MG CAP PO SCH (09:00)
[2020-07-08] MEDS: ASPIRIN 81 MG ECTAB PO SCH (09:00)
[2020-07-08] MEDS ORDERED: INSULIN GLARGINE SOLOSTAR 100 UNITS/ML 3 ML PEN SC SCH (09:00)
[2020-07-08] MEDS: ENOXAPARIN INJ 40 MG/0.4 ML SYR SQ SCH (09:01)
[2020-07-08] MEDS: INSULIN ASPART 100 UNITS/ML 3 ML PEN SC SCH (09:05)
--- NOTE | 2020-07-08 10:23 | Discharge Summary ---
Date of Service July 08, 2020 Admission HPI Per Admitting Provider The patient is a 54-year-old female with a past medical history including acute head injury, thrombocytopenia, leukopenia, uncontrolled diabetes mellitus type 1, diabetic peripheral neuropathy, left BKA, IPMN, insomnia, vitamin D deficiency, depression with anxiety, history of GI bleed, right temporal lobe encephalomalacia, exocrine pancreatic insufficiency, alcoholic liver cirrhosis, psoriasis, hydrosalpinx and chronic pancreatitis. The patient's sanitation officer became concerned about the patient's health, and called EMS. Emergency department reports that the patient is had veering versions of her story, and is also reports that the patient's neighbor was one who called EMS. She states that she had a recent fall 2 days ago was drinking, and hit her head on the table, but does not feel she has any persistent problems related to that. She denies any recent travels or sick exposures including to COVID. She has canceled her last 2 appointments with the PCP. She is concerned about withdrawal and wanted to discuss rehab. She is also concerned about her right lower extremity and foot, but she says is cold and is painful. Admission Exam Per Admitting Provider The patient is awake, alert and oriented 3, looks malnourished, scalp with severe psoriasis and hair loss, lying in bed and in otherwise no acute distress. HEENT--PERRL, EOMI, mucous membranes and oropharynx dry. Neck--supple. No JVD. No bruits. Thyroid normal, trachea midline, no adenopathy. Heart--normal S1 and S2. No murmurs, rubs or gallops. Lungs--clear bilaterally, no respiratory distress, no accessory muscle use. Abdomen--normal bowel sounds and soft. Nontender. Nondistended. Extremities--right lower extremity cool with decreased pulses. Left BKA noted and painful to touch Dermatologic--psoriasis on scalp was noted, with eczema on hands and lower extremities. Neurologic--cranial nerves II through XII grossly intact. Rheumatologic--normal range of motion. Limited left BKA Psychiatric--normal affect. Principal Diagnosis acute alcohol withdrawal Discharge Exam Constitutional WD/WN, vitals as above ENMT external ear and nose normal, oropharynx normal Neck normal visual inspection Respiratory normal respiratory effort, lungs clear to auscultation no respiratory distress Cardiovascular RRR, no murmur, no edema Gastrointestinal (Abdomen) normal bowel sounds, soft, nontender, no hepatosplenomegaly Musculoskeletal Extremities: + extremities abnormal to inspection (Left BKA) Skin no rashes, warm and dry Neurologic moves all extremities and awake Psychiatric A+Ox3, euthymic affect Discharge Data Allergies Allergy/AdvReac Type Severity Reaction Status Date / Time haloperidol [From Haldol] AdvReac Unknown Verified 07/06/20 13:51 Consultations 07/06/20 19:42 ED Decision to Admit Stat 07/06/20 21:39 Consult Case Management - Discharge Planning Routine Ordered Studies 07/06/20 13:20 CT head/brain wo con Stat 07/06/20 21:39 US arterial duplex LE RT Urgent 07/07/20 02:35 MR abdomen wo/w con Routine Hospital Course (1) Left against medical advice: 54 yo F PMHx thrombocytopenia, leukopenia, uncontrolled diabetes mellitus type 1, diabetic peripheral neuropathy, left BKA, breast cancer, vitamin D deficiency, depression with anxiety, GI bleed, right temporal lobe encephalomalacia, exocrine pancreatic insufficiency and chronic pancreatitis admitted for alcohol withdrawal and possible head injury, today left AMA. Left Against Medical Advice: - Today described wanting to go home. Was advised that this is against medical advice, given that her ambulatory status was unable to be assessed as PT/OT did not evaluate her. - She wanted to "be in her own bed and have a smoke if she wants". - She understood that leaving against medical advice, she could fall again due to her unsteady gait and injure herself. - No new prescriptions started. Advised to return to ER if needed for evaluation. Alcohol withdrawal: - Alcohol level of 394 on admission. - Received several doses of Ativan while admitted, however has not required Ativan overnight and is without withdrawal symptoms. - Requested resources for outpatient alcohol rehab, which were provided. T1DM: - A1c this admission 8.5. - May need titration of insulin dosing at home. Liver cirrhosis: - With history of indeterminate 3.1 x 2.5 cm cystic structure of pancreatic head. - Patient was to follow-up with GI for EGD or pancreatic protocol abdominal MRI, but was lost to follow up. - Should have follow up abdominal MRI with attention to pancreas in outpatient setting. Dispo: Home with self care, against medical advice Total Time Total Time Spent Total Time Spent (In Minutes): please see attending attestation Discharge Plan Discharge Items Patient Disposition: Against Medical Advice Reason For Visit: ALCOHOL WITHDRAWAL Discharge Diagnosis: alcohol withdrawal, hyperglycemia, ambulatory dysfunction Activity: Resume your previous activity Non-emergency contact: Primary Care Provider Call non-emergency contact if: you have any medication questions, your symptoms worsen and your rectal temperature is above 100.4 Follow-up/Referrals: Ana Lilia Madrid MD [Primary Care Provider] - Diet: Carb Count or DM1 Addtl Attending Provider Instructions: Patient left AMA due to discomfort overnight and desire to be home. Please see note. Pending Studies at Discharge: No Stand-Alone Forms: My [facility]urop[facility], Smoking Cessation Medications and DC Order Prescriptions: Continued duloxetine [Cymbalta] 60 mg capsule,delayed release(DR/EC) 60 mg PO QAM Qty: 30 RF: 5 Creon 6,000-19,000 -30,000 unit capsule,delayed release(DR/EC) 1 cap PO TID Qty: 90 RF: 1 gabapentin 300 mg capsule 300 mg PO TID Qty: 90 RF: 1 (DME) FreeStyle Janny 14 Day Sensor Kit See Rx Instructions miscellaneous .MEDSUPPLY Qty: 1 RF: 6 (DME) FreeStyle Janny 14 Day [place] Misc See Rx Instructions miscellaneous .MEDSUPPLY Qty: 1 RF: 0 cholecalciferol (vitamin D3) 1,000 unit capsule 1,000 units PO HS RF: 0 multivitamin tablet 1 tab PO PM RF: 0 nystatin 100,000 unit/gram ointment 1 appln TOP TID PRN (Reason: Skin Irritation) RF: 0 (DME) blood sugar diagnostic [OneTouch Verio test strips] Strip See Rx Instructions .ROUTE .MEDSUPPLY RF: 0 buspirone 5 mg tablet 5 mg PO BID Qty: 60 RF: 5 Toujeo SoloStar U-300 Insulin 300 unit/mL (1.5 mL) insulin pen 16 units SQ QAM RF: 0 Tremfya 100 mg/mL auto-injector 100 mg SQ Q8WK RF: 0 ibuprofen 200 mg Tablet 800 mg PO Q6H PRN (Reason: Pain) RF: 0 clobetasol 0.05 % shampoo 1 appln TOP DAILY PRN (Reason: Rash) RF: 0 duloxetine [Cymbalta] 20 mg capsule,delayed release(DR/EC) 20 mg PO HS RF: 0 Hold Instructions: does not take cyanocobalamin (vitamin B-12) [Vitamin B-12] 1,000 mcg tablet 1,000 mcg PO DAILY RF: 0 clobetasol 0.05 % foam 1 appln TOP BID PRN (Reason: .) RF: 0 Discharge Orders: Left Against Medical Advice (Routine); Ordered 07/08/20 Ordered By: Betty Patel Admission Data Admit Date/Time: 07/06/20 20:23 Attending Provider: Jelani Gabriel Admit Provider: Adelso Younger Primary Care Provider: Ana Lilia Madrid V. Other Providers: Adelso Younger ; [facility] Other Interventions: Discharge Summary Assessment (RN) Last Done: 07/08/20 10:56 Supervising Physician Co-Signing Physician Notes discussed case w dr molina, then pt left AMA prior to my being able to see her. as above Resident Activity Tracking Resident Involvement: Resident Care Provided Care Provided: Adult Hospital Medicine
== END 2020-07-08 11:40 | disposition left against medical advice (07) | DRG 894 ==
LOC: ED 12:27 → 2N 20:23 → SUATTDRO 20:23 → 2N 20:49

== ENCOUNTER 2020-10-25 15:59 | Inpatient (IN) ==
[2020-10-25] MEDS ORDERED: MULTI-VITAMIN INFUSION 10 ML, THIAMINE HCL 100 MG, FOLIC ACID 1 MG in SODIUM CHLORIDE 0... IV ONE (16:10)
--- NOTE | 2020-10-25 16:27 | Emergency Department Note ---
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 There is suspicion that she is intoxicated. She is a poor historian but denies any recent illness including fevers, chills, cough, congestion, nausea, vomiting, diarrhea. She did have a visit from her mother recently previous report who apparently recently had COVID-19. On arrival the patient is intoxicated appearing, drowsy but alert to self, place and situation she does have mild confusion regarding the details of what happened over the past 24 hours. She appears clinically dry. She has dry skin with mild desquamation without erythema, warmth or tenderness. Mild tenderness of right lower leg without deformity or bony crepitus. Left BKA. EKG without evidence of acute ischemia. CXR negative for acute cardiopulmonary or traumatic process. CT head and cspine negative for acute process. WBC, H/H, platelets wnl. INR wnl. Glucose 298. Chemistry without acidosis though with Agap 18. LFTs and electrolytes without significant abnormality. Troponin negative/undetectable. Cpk 200s. Lipase is not elevated. Ammonia wnl. Etoh 428. Covid19 RNA, NAAT negative. Repeat BSG following 2L IVF down to 223. Patient more alert on re-evaluation though mildly tremulous despite high etoh level suspicious for early withdrawal in the setting of etoh dependence. Patient given IV Ativan. Given early etoh withdrawal in the setting of hyperglycemia on verge of DKA, reasonable to admit for further management. Patient agrees. Case was discussed with Dr. Younger, [facility] hospitalist, who will evaluate the patient for admission. Triage Nursing notes reviewed and agree them. Additional history obtained from EMS Prior medical records reviewed Vital Signs: reviewed and remarkable for tachycardia. Differential diagnosis: Infection, hypoglycemia, electrolyte abnormalities, overdose, toxicologic, cardiac sources, intracerebral event, neurologic, trauma, as well as other pathologies. ER treatment provided: See below. Diagnostics interpreted by me: ECG: Sinus tachycardia, 121 bpm, no ectopy, no overt ST elevation or depression. Cardiac Monitoring: An order for continuous cardiac monitoring was placed and demonstrated Sinus tachycardia, 121 bpm, no ectopy. Laboratory studies: See below Imaging studies: XR chest 1V portable HISTORY: Atypical Chest Pain COMPARISON: Chest 01/18/2020. FINDINGS: No pneumothorax. No pleural effusions. No focal lung consolidations to suggest pneumonia. No evidence for pulmonary edema. There are old, healed bilateral rib fractures. The heart is normal in size. Mild emphysema. IMPRESSION: 1. No acute process within the chest. 2. Mild emphysema. 3. Old, healed bilateral rib fractures are again noted. XR pelvis 1-2V routine CLINICAL HISTORY: Pelvic pain. Fall. COMPARISON STUDY: Pelvis 08/12/2019. FINDINGS: No fracture or dislocation within the pelvis or hips. The sacrum is intact. Mild osteoarthritis within the bilateral hips and sacroiliac joints. Soft tissues are unremarkable. IMPRESSION: No fracture or dislocation within the pelvis or hips. ACT 112: Negative or not required by law. -- RIGHT TIBIA/FIBULA 2 VIEWS HISTORY: Right lower leg pain fall COMPARISON: None. FINDINGS: There is no fracture or dislocation. Soft tissues are unremarkable. No radiopaque foreign bodies. IMPRESSION: No fractures. - HEAD CT NONCONTRAST CT DOSE: 638.56 mGycm HISTORY: Headache. pain fall TECHNIQUE: Multiaxial CT images of the head were performed without the use of intravenous contrast. Automated exposure control was utilized for this study. A dose lowering technique was utilized adhering to the principles of ALARA. Comparison: Head CT 07/06/2020. Findings: The paranasal sinuses and mastoid air cells are clear. The calvarium and skull base are intact. The ventricles and sulci are within normal limits. There is no mass, hematoma, midline shift, or acute infarct. Stable small focus of encephalomalacia within the right temporal lobe. This could be due to old trauma or an old infarct. Impression: No significant change compared to the prior study. No acute intracranial abnormality. ACT 112: Negative or not required by law. -- CT OF THE CERVICAL SPINE CLINICAL HISTORY: Neck pain status post trauma COMPARISON STUDY: 08/12/2019 CT DOSE: 407.67 mGycm TECHNIQUE: CT scan of the cervical spine was performed from the skull base to the thoracic inlet. Images are reviewed in the axial, sagittal, and coronal planes. IV contrast was not administered for this examination. A dose lowering technique was utilized adhering to the principles of ALARA. FINDINGS: The visualized portions of the lung apices reveal no evidence of pneumothorax. The prevertebral soft tissues are normal. No fractures or subluxations are visualized. There are multilevel degenerative changes There is spinal curvature convex to the left. C1-2 rotation, is likely secondary to head positioning. IMPRESSION: 1. C1-2 rotation, likely secondary to an positioning 2. No fractures identified. Consultation(s): Case was discussed with Dr. Younger, [facility] hospitalist, who will evaluate the patient for admission. 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 There is suspicion that she is intoxicated. She is a poor historian but denies any recent illness including fevers, chills, cough, congestion, nausea, vomiting, diarrhea. She did have a visit from her mother recently previous report who apparently recently had COVID-19. ROS: See above HPI for pertinent positives & negatives. A total of 10 systems reviewed and were otherwise negative. PAST MEDICAL HISTORY:See Below PAST SURGICAL HISTORY:See Below FAMILY HISTORY:See Below SOCIAL HISTORY:See Below HOME MEDICATIONS:See Below ALLERGIES:See Below VITALS:See Below PHYSICAL EXAMINATION: GENERAL: Awake, alert, intoxicated-appearing, in no distress HENT: Normocephalic, atraumatic. Oropharynx with dry mucous membranes and otherwise unremarkable. EYES: Normal conjunctiva. Sclera non-icteric. EOMI. No nystamgus. PEARRL. NECK: Supple. No nuchal rigidity. FROM. No JVD. RESPIRATORY: Clear to auscultation. CARDIAC: Tachycardic rate, normal rhythm. Extremities warm and well perfused. Pulses equal. ABDOMEN: Soft, non-distended. No tenderness to palpation. No rebound or guarding. No masses. RECTAL: Deferred. MUSCULOSKELETAL: Chest examination reveals no tenderness. The back is symmetrical on inspection without obvious abnormality. There is no CVA tenderness to palpation. No joint edema. LOWER EXTREMITIES: Calves are equal size bilaterally and non-tender. No edema. No discoloration. Mild tenderness of anterior right lower leg. No deformity or bony crepitus. Left BKA. NEURO: Drowsy but alert to self, place and situation she does have mild confusion regarding the details of what happened over the past 24 hours. Generalized weakness throughout without focal deficits. SKIN: Dry skin with mild desquamation without erythema, warmth or tenderness. No jaundice noted. ED COURSE: Critical Care: I have personally spent greater than 35 minutes of critical care time in the dir ect management of this patient. This includes bedside care, interpretation of diagnostic studies, and testing, discussion with consultants, patient, and family members, and other required patient management activities. This 35 minutes is in excess of all separately billable procedures. Mathieu Umaña MD Past Med/Surg History Medical History Abnormal TSH Per patient treated with thyroid hormone many years earlier Acute respiratory failure with hypoxia Alcohol dependence Alcohol intoxication Alcohol intoxication delirium Alcohol withdrawal Alcohol withdrawal seizure NOT REPORTED BY PATIENT AT TIME OF PAT CALL - LAST EPISODE OVER A YEAR AGO Aspiration pneumonia Bimalleolar ankle fracture Caustic esophageal injury Chronic pancreatitis Cirrhosis of liver "COMPROMISED LIVER" Diabetic peripheral neuropathy associated with type 1 diabetes mellitus DKA (diabetic ketoacidoses) Encephalomalacia Exocrine pancreatic insufficiency History of GI bleed Hydrosalpinx PT UNAWARE IPMN (intraductal papillary mucinous neoplasm) Imaging July 2020 follow-up yearly Leukopenia Lipoma NECK Lipoma Liver cirrhosis, alcoholic Loose bowel movement Metabolic encephalopathy Pancreatic insufficiency Polycystic ovarian syndrome Psoriasis SBO (small bowel obstruction) Resolved Thrombocytopenia Tobacco dependence Vitamin D deficiency Surgical History Amputation of left lower extremity TO APPROX MID CALF History of ankle surgery 02/2019 left ankle ex fix, grade 2 view with MAC 3 and 7.0 ETT History of tooth extraction Family History Uncle Diabetes Mother Breast cancer Sister Breast cancer Father Prostate cancer Other Family history of breast cancer in mother Family history of breast cancer in sister Denies family history of Ovarian cancer Myocardial infarction Colorectal cancer Social History Smoking Status: Current every day smoker Tobacco Type: Cigarettes packs per day: 0.75; Cigarettes Per Day: 15; Second Hand Exposure: No; Tobacco Cessation Education Requested by Patient: No Hx Alcohol Use: Yes Alcohol type: wine Hx Substance Use: No Preferred Language: Indonesian Communication Ability: Effective Visual Impairment: No Limitations Airport Location Manager Required: No Beliefs That Will Affect Care: None marital status: marital status details: no children Current Living Situation: Alone current occupational status: disabled Feels Safe at Home: Yes Assistive Devices: Wheelchair Allergies Allergies Allergy/AdvReac Type Severity Reaction Status Date / Time haloperidol [From Haldol] AdvReac Unknown Unknown Verified 10/25/20 20:09 Home Meds Home Medications Medication Instructions Recorded Confirmed cholecalciferol (vitamin D3) 25 1,000 units PO HS 06/23/19 10/25/20 mcg (1,000 unit) capsule cyanocobalamin (vitamin B-12) 1,000 mcg PO DAILY tab 05/10/20 10/25/20 1,000 mcg tablet insulin glargine 100 unit/mL (3 8 unit SUBCUT QAM ml 08/17/20 10/25/20 mL) subcutaneous pen acetaminophen-codeine 1 - 2 tab PO .Q4-6HRS PRN 10/25/20 10/25/20 ascorbic acid (vitamin C) [Vitamin 500 mg PO DAILY 10/25/20 10/25/20 C] bismuth subsalicylate 2 tab PO QID PRN 10/25/20 10/25/20 [Pepto-Bismol] diphenhydramine HCl [Benadryl 25 - 50 mg PO Q6H PRN 10/25/20 10/25/20 Allergy] fluticasone propionate [Flonase] 2 spray INTRANASAL DAILY PRN 10/25/20 10/25/20 [id number] [Creon] 1 cap PO TID 10/25/20 10/25/20 Previous Rx's Medication Instructions Recorded guselkumab 100 mg/mL subcutaneous 100 mg SQ Q8WK #1 ml 07/18/20 auto-injector buspirone 10 mg tablet 10 mg PO BID #60 tab 08/15/20 duloxetine 20 mg capsule,delayed 20 mg PO HS #30 cap 08/15/20 release duloxetine 60 mg capsule,delayed 60 mg PO QAM #30 cap 08/15/20 release gabapentin 300 mg capsule 300 mg PO TID #90 cap 09/08/20 Results & Data (ED) Vital Signs Vital Signs - 24 hr 10/25/20 16:01 10/25/20 16:30 10/25/20 16:43 Temperature 36.4 C L Temperature Source Oral Pulse Rate 107 H 119 H 115 H Pulse Rate [Left Finger] Pulse Rate from SpO2 Sensor Respiratory Rate 12 23 4 L Respiratory Effort / Characteristics Respiratory Depth Blood Pressure 130/87 121/84 Blood Pressure [Left Arm] Blood Pressure Mean 101 96 Blood Pressure Mean [Left Arm] Pulse Oximetry 98 Oxygen Delivery Method Room Air Sepsis Recent Fever Within 48 Hours No Sepsis New/Unexplained Change in Mental Status No Sepsis Action Taken by Nursing No Action Required 10/25/20 16:45 10/25/20 17:00 10/25/20 17:09 Temperature Temperature Source Pulse Rate 126 H 118 H Pulse Rate [Left Finger] Pulse Rate from SpO2 Sensor Respiratory Rate 27 H 15 Respiratory Effort / Characteristics Respiratory Depth Blood Pressure Blood Pressure [Left Arm] Blood Pressure Mean Blood Pressure Mean [Left Arm] Pulse Oximetry Oxygen Delivery Method Room Air Sepsis Recent Fever Within 48 Hours Sepsis New/Unexplained Change in Mental Status Sepsis Action Taken by Nursing 10/25/20 17:15 10/25/20 17:18 10/25/20 17:30 Temperature Temperature Source Pulse Rate 128 H 120 H Pulse Rate [Left Finger] 122 H Pulse Rate from SpO2 Sensor 120 H Respiratory Rate 14 18 17 Respiratory Effort / Characteristics Non-Labored Respiratory Depth Normal Blood Pressure 143/89 H Blood Pressure [Left Arm] 131/99 Blood Pressure Mean 107 Blood Pressure Mean [Left Arm] 109 Pulse Oximetry 94 94 Oxygen Delivery Method Room Air Sepsis Recent Fever Within 48 Hours Sepsis New/Unexplained Change in Mental Status Sepsis Action Taken by Nursing 10/25/20 17:31 10/25/20 17:45 10/25/20 18:00 Temperature Temperature Source Pulse Rate 123 H 111 H 142 H Pulse Rate [Left Finger] Pulse Rate from SpO2 Sensor 124 H 111 H 144 H Respiratory Rate 14 14 13 Respiratory Effort / Characteristics Respiratory Depth Blood Pressure 107/84 Blood Pressure [Left Arm] Blood Pressure Mean 91 Blood Pressure Mean [Left Arm] Pulse Oximetry 95 94 95 Oxygen Delivery Method Sepsis Recent Fever Within 48 Hours Sepsis New/Unexplained Change in Mental Status Sepsis Action Taken by Nursing 10/25/20 18:15 10/25/20 18:30 10/25/20 18:45 Temperature Temperature Source Pulse Rate 128 H 135 H 127 H Pulse Rate [Left Finger] Pulse Rate from SpO2 Sensor 128 H 132 H 127 H Respiratory Rate 16 21 16 Respiratory Effort / Characteristics Respiratory Depth Blood Pressure 117/76 Blood Pressure [Left Arm] Blood Pressure Mean 89 Blood Pressure Mean [Left Arm] Pulse Oximetry 96 96 98 Oxygen Delivery Method Room Air Room Air Sepsis Recent Fever Within 48 Hours Sepsis New/Unexplained Change in Mental Status Sepsis Action Taken by Nursing 10/25/20 19:00 10/25/20 19:15 10/25/20 21:00 Temperature Temperature Source Pulse Rate 143 H 125 H 117 H Pulse Rate [Left Finger] Pulse Rate from SpO2 Sensor 116 H Respiratory Rate 14 17 17 Respiratory Effort / Characteristics Respiratory Depth Blood Pressure 116/78 105/67 Blood Pressure [Left Arm] Blood Pressure Mean 90 79 Blood Pressure Mean [Left Arm] Pulse Oximetry 96 Oxygen Delivery Method Room Air Sepsis Recent Fever Within 48 Hours Sepsis New/Unexplained Change in Mental Status Sepsis Action Taken by Nursing Laboratory Data Attestation: I reviewed the patient's lab results. Result diagrams: 10/25/20 20:46 10/25/20 20:46 Lab Results 10/25/20 10/25/20 10/25/20 Range/Units 16:51 16:51 16:51 WBC RBC Hgb Hct MCV MCH MCHC RDW Std Deviation RDW Coeff of Ethel Plt Count MPV Immature Gran % (Auto) Neut % (Auto) Lymph % (Auto) [place] % (Auto) Eos % (Auto) Baso % (Auto) Neut # (Auto) Lymph # (Auto) [place] # (Auto) Eos # (Auto) Baso # (Auto) Immature Gran # (Auto) Absolute Nucleated RBC Nucleated RBC % (auto) Neutrophils % (Manual) Band Neutrophils % Lymphocytes % (Manual) Prolymphocyte % Reactive Lymphs % (Man) Monocytes % (Manual) Eosinophils % (Manual) Basophils % (Manual) Metamyelocytes % (Man) Myelocytes % (Man) Promyelocytes % (Man) Blast Cells % (Manual) Plasma Cell % (Manual) Other Cells % Nucleated RBC % Neutrophils # (Manual) Band Neutrophils # Total Absolute Neuts Lymphocytes # (Manual) Prolymphocyte # Reactive Lymphs # Total Abs Lymphocytes Monocytes # (Manual) Eosinophils # (Manual) Basophils # (Manual) Metamyelocytes # (Man) Myelocytes # (Manual) Promyelocytes # (Man) Blast Cells # (Man) Plasma Cell # (Manual) Other Cells # Nucleated RBCs # (Man) Hypersegmented Neuts Hyposegmented Neuts Hypogranular Neuts Large Granular Lymphs # Lrg Granular Lymphs Hairy Cells Smudge Cells Toxic Granulation Toxic Vacuolation Dohle Bodies Chai Rods Platelet Estimate Hypogranular Platelets Clumped Platelets Giant Platelets Platelet Satelliting RBC Morphology Polychromasia Hypochromasia Poikilocytosis Basophilic Stippling Anisocytosis Microcytosis Macrocytosis Spherocytes Pappenheimer Bodies Sickle Cells Target Cells Tear Drop Cells Ovalocytes Stomatocytes Mcmahan-Humacao Bodies Echinocytes Acanthocytes (Spur) Rouleaux RBC Agglutinates Schistocytes RBC Morph Comment Sezary Cell PT INR APTT PTT Ratio Sodium 132 L (136-145) mmol/L Potassium (3.5-5.1) mmol/L Chloride 92 L (98-107) mmol/L Carbon Dioxide 22 (21-32) mmol/L Anion Gap 18.0 H (3-11) BUN 14 (7-18) mg/dl Creatinine 0.77 (0.6-1.2) mg/dl Est Cr Clr Drug Dosing 70.0 ml/min Est GFR ( Amer) 101.5 Est GFR (Non-Af Amer) 87.5 BUN/Creatinine Ratio 17.8 (10-20) Glucose 298 H (70-99) mg/dl POC Glucose (70-99) mg/dl Calcium 8.8 (8.5-10.1) mg/dl Phosphorus 4.9 (2.5-4.9) mg/dl Magnesium (1.8-2.4) mg/dl Total Bilirubin 1.1 H (0.2-1) mg/dl Direct Bilirubin (0-0.2) mg/dl AST (15-37) U/L ALT 73 (12-78) U/L Alkaline Phosphatase 203 H (45-117) U/L Ammonia Cancelled Total Creatine Kinase (26-192) U/L Troponin I < 0.015 (0-0.045) ng/ml Total Protein 8.1 (6.4-8.2) gm/dl Albumin 3.9 (3.4-5.0) gm/dl Globulin 4.2 H (2.5-4.0) gm/dl Albumin/Globulin Ratio 0.9 (0.9-2) Lipase 43 L (73-393) U/L TSH 1.400 (0.300-4.500) uIu/ml Ethyl Alcohol mg/dL 428.0 H (0-3) mg/dl COVID-19 Eval Order SARS-CoV-2, RNA, NAAT (NEGATIVE) 10/25/20 10/25/20 10/25/20 Range/Units 16:51 16:51 17:37 WBC Cancelled RBC Cancelled Hgb Cancelled Hct Cancelled MCV Cancelled MCH Cancelled MCHC Cancelled RDW Std Deviation Cancelled RDW Coeff of Ethel Cancelled Plt Count Cancelled MPV Cancelled Immature Gran % (Auto) Cancelled Neut % (Auto) Cancelled Lymph % (Auto) Cancelled [place] % (Auto) Cancelled Eos % (Auto) Cancelled Baso % (Auto) Cancelled Neut # (Auto) Cancelled Lymph # (Auto) Cancelled [place] # (Auto) Cancelled Eos # (Auto) Cancelled Baso # (Auto) Cancelled Immature Gran # (Auto) Cancelled Absolute Nucleated RBC Cancelled Nucleated RBC % (auto) Cancelled Neutrophils % (Manual) Cancelled Band Neutrophils % Cancelled Lymphocytes % (Manual) Cancelled Prolymphocyte % Cancelled Reactive Lymphs % (Man) Cancelled Monocytes % (Manual) Cancelled Eosinophils % (Manual) Cancelled Basophils % (Manual) Cancelled Metamyelocytes % (Man) Cancelled Myelocytes % (Man) Cancelled Promyelocytes % (Man) Cancelled Blast Cells % (Manual) Cancelled Plasma Cell % (Manual) Cancelled Other Cells % Cancelled Nucleated RBC % Cancelled Neutrophils # (Manual) Cancelled Band Neutrophils # Cancelled Total Absolute Neuts Cancelled Lymphocytes # (Manual) Cancelled Prolymphocyte # Cancelled Reactive Lymphs # Cancelled Total Abs Lymphocytes Cancelled Monocytes # (Manual) Cancelled Eosinophils # (Manual) Cancelled Basophils # (Manual) Cancelled Metamyelocytes # (Man) Cancelled Myelocytes # (Manual) Cancelled Promyelocytes # (Man) Cancelled Blast Cells # (Man) Cancelled Plasma Cell # (Manual) Cancelled Other Cells # Cancelled Nucleated RBCs # (Man) Cancelled Hypersegmented Neuts Cancelled Hyposegmented Neuts Cancelled Hypogranular Neuts Cancelled Large Granular Lymphs Cancelled # Lrg Granular Lymphs Cancelled Hairy Cells Cancelled Smudge Cells Cancelled Toxic Granulation Cancelled Toxic Vacuolation Cancelled Dohle Bodies Cancelled Chai Rods Cancelled Platelet Estimate Cancelled Hypogranular Platelets Cancelled Clumped Platelets Cancelled Giant Platelets Cancelled Platelet Satelliting Cancelled RBC Morphology Cancelled Polychromasia Cancelled Hypochromasia Cancelled Poikilocytosis Cancelled Basophilic Stippling Cancelled Anisocytosis Cancelled Microcytosis Cancelled Macrocytosis Cancelled Spherocytes Cancelled Pappenheimer Bodies Cancelled Sickle Cells Cancelled Target Cells Cancelled Tear Drop Cells Cancelled Ovalocytes Cancelled Stomatocytes Cancelled Mcmahan-[place] Bodies Cancelled Echinocytes Cancelled Acanthocytes (Spur) Cancelled Rouleaux Cancelled RBC Agglutinates Cancelled Schistocytes Cancelled RBC Morph Comment Cancelled Sezary Cell Cancelled PT Cancelled INR Cancelled APTT Cancelled PTT Ratio Cancelled Sodium (136-145) mmol/L Potassium (3.5-5.1) mmol/L Chloride (98-107) mmol/L Carbon Dioxide (21-32) mmol/L Anion Gap (3-11) BUN (7-18) mg/dl Creatinine (0.6-1.2) mg/dl Est Cr Clr Drug Dosing ml/min Est GFR ( Amer) Est GFR (Non-Af Amer) BUN/Creatinine Ratio (10-20) Glucose (70-99) mg/dl POC Glucose (70-99) mg/dl Calcium (8.5-10.1) mg/dl Phosphorus (2.5-4.9) mg/dl Magnesium (1.8-2.4) mg/dl Total Bilirubin (0.2-1) mg/dl Direct Bilirubin (0-0.2) mg/dl AST (15-37) U/L ALT (12-78) U/L Alkaline Phosphatase (45-117) U/L Ammonia Total Creatine Kinase (26-192) U/L Troponin I (0-0.045) ng/ml Total Protein (6.4-8.2) gm/dl Albumin (3.4-5.0) gm/dl Globulin (2.5-4.0) gm/dl Albumin/Globulin Ratio (0.9-2) Lipase (73-393) U/L TSH (0.300-4.500) uIu/ml Ethyl Alcohol mg/dL (0-3) mg/dl COVID-19 Eval [facility] SARS-CoV-2, RNA, NAAT (NEGATIVE) 10/25/20 10/25/20 10/25/20 Range/Units 17:37 20:23 20:46 WBC 9.72 RBC 4.39 Hgb 13.5 Hct 39.4 MCV 89.7 MCH 30.8 MCHC 34.3 RDW Std Deviation 53.4 H RDW Coeff of Ethel 15.9 H Plt Count 329 MPV 9.6 Immature Gran % (Auto) 0.2 Neut % (Auto) 86.1 Lymph % (Auto) 9.1 [place] % (Auto) 4.4 Eos % (Auto) 0.0 Baso % (Auto) 0.2 Neut # (Auto) 8.37 H Lymph # (Auto) 0.88 L [place] # (Auto) 0.43 Eos # (Auto) 0.00 Baso # (Auto) 0.02 Immature Gran # (Auto) 0.02 Absolute Nucleated RBC Nucleated RBC % (auto) Neutrophils % (Manual) Band Neutrophils % Lymphocytes % (Manual) Prolymphocyte % Reactive Lymphs % (Man) Monocytes % (Manual) Eosinophils % (Manual) Basophils % (Manual) Metamyelocytes % (Man) Myelocytes % (Man) Promyelocytes % (Man) Blast Cells % (Manual) Plasma Cell % (Manual) Other Cells % Nucleated RBC % Neutrophils # (Manual) Band Neutrophils # Total Absolute Neuts Lymphocytes # (Manual) Prolymphocyte # Reactive Lymphs # Total Abs Lymphocytes Monocytes # (Manual) Eosinophils # (Manual) Basophils # (Manual) Metamyelocytes # (Man) Myelocytes # (Manual) Promyelocytes # (Man) Blast Cells # (Man) Plasma Cell # (Manual) Other Cells # Nucleated RBCs # (Man) Hypersegmented Neuts Hyposegmented Neuts Hypogranular Neuts Large Granular Lymphs # Lrg Granular Lymphs Hairy Cells Smudge Cells Toxic Granulation Toxic Vacuolation Dohle Bodies Chai Rods Platelet Estimate Hypogranular Platelets Clumped Platelets Giant Platelets Platelet Satelliting RBC Morphology Polychromasia Hypochromasia Poikilocytosis Basophilic Stippling Anisocytosis Microcytosis Macrocytosis Spherocytes Pappenheimer Bodies Sickle Cells Target Cells Tear Drop Cells Ovalocytes Stomatocytes Mcmahan-Hum[place] Bodies Echinocytes Acanthocytes (Spur) Rouleaux RBC Agglutinates Schistocytes RBC Morph Comment Sezary Cell PT INR APTT PTT Ratio Sodium (136-145) mmol/L Potassium (3.5-5.1) mmol/L Chloride (98-107) mmol/L Carbon Dioxide (21-32) mmol/L Anion Gap (3-11) BUN (7-18) mg/dl Creatinine (0.6-1.2) mg/dl Est Cr Clr Drug Dosing ml/min Est GFR ( Amer) Est GFR (Non-Af Amer) BUN/Creatinine Ratio (10-20) Glucose (70-99) mg/dl POC Glucose 312 H* (70-99) mg/dl Calcium (8.5-10.1) mg/dl Phosphorus (2.5-4.9) mg/dl Magnesium (1.8-2.4) mg/dl Total Bilirubin (0.2-1) mg/dl Direct Bilirubin (0-0.2) mg/dl AST (15-37) U/L ALT (12-78) U/L Alkaline Phosphatase (45-117) U/L Ammonia Total Creatine Kinase (26-192) U/L Troponin I (0-0.045) ng/ml Total Protein (6.4-8.2) gm/dl Albumin (3.4-5.0) gm/dl Globulin (2.5-4.0) gm/dl Albumin/Globulin Ratio (0.9-2) Lipase (73-393) U/L TSH (0.300-4.500) uIu/ml Ethyl Alcohol mg/dL (0-3) mg/dl COVID-19 Eval Order SARS-CoV-2, RNA, NAAT NEGATIVE (NEGATIVE) 10/25/20 10/25/20 10/25/20 Range/Units 20:46 20:46 20:46 WBC RBC Hgb Hct MCV MCH MCHC RDW Std Deviation RDW Coeff of Ethel Plt Count MPV Immature Gran % (Auto) Neut % (Auto) Lymph % (Auto) [place] % (Auto) Eos % (Auto) Baso % (Auto) Neut # (Auto) Lymph # (Auto) [place] # (Auto) Eos # (Auto) Baso # (Auto) Immature Gran # (Auto) Absolute Nucleated RBC Nucleated RBC % (auto) Neutrophils % (Manual) Band Neutrophils % Lymphocytes % (Manual) Prolymphocyte % Reactive Lymphs % (Man) Monocytes % (Manual) Eosinophils % (Manual) Basophils % (Manual) Metamyelocytes % (Man) Myelocytes % (Man) Promyelocytes % (Man) Blast Cells % (Manual) Plasma Cell % (Manual) Other Cells % Nucleated RBC % Neutrophils # (Manual) Band Neutrophils # Total Absolute Neuts Lymphocytes # (Manual) Prolymphocyte # Reactive Lymphs # Total Abs Lymphocytes Monocytes # (Manual) Eosinophils # (Manual) Basophils # (Manual) Metamyelocytes # (Man) Myelocytes # (Manual) Promyelocytes # (Man) Blast Cells # (Man) Plasma Cell # (Manual) Other Cells # Nucleated RBCs # (Man) Hypersegmented Neuts Hyposegmented Neuts Hypogranular Neuts Large Granular Lymphs # Lrg Granular Lymphs Hairy Cells Smudge Cells Toxic Granulation Toxic Vacuolation Dohle Bodies Chai Rods Platelet Estimate Hypogranular Platelets Clumped Platelets Giant Platelets Platelet Satelliting RBC Morphology Polychromasia Hypochromasia Poikilocytosis Basophilic Stippling Anisocytosis Microcytosis Macrocytosis Spherocytes Pappenheimer Bodies Sickle Cells Target Cells Tear Drop Cells Ovalocytes Stomatocytes Mcmahan-Humacao Bodies Echinocytes Acanthocytes (Spur) Rouleaux RBC Agglutinates Schistocytes RBC Morph Comment Sezary Cell PT 10.5 INR 1.0 APTT 25.6 PTT Ratio 0.9 Sodium (136-145) mmol/L Potassium 4.5 (3.5-5.1) mmol/L Chloride (98-107) mmol/L Carbon Dioxide (21-32) mmol/L Anion Gap (3-11) BUN (7-18) mg/dl Creatinine (0.6-1.2) mg/dl Est Cr Clr Drug Dosing ml/min Est GFR ( Amer) Est GFR (Non-Af Amer) BUN/Creatinine Ratio (10-20) Glucose (70-99) mg/dl POC Glucose (70-99) mg/dl Calcium (8.5-10.1) mg/dl Phosphorus (2.5-4.9) mg/dl Magnesium 2.0 (1.8-2.4) mg/dl Total Bilirubin (0.2-1) mg/dl Direct Bilirubin 0.5 H (0-0.2) mg/dl AST 44 H (15-37) U/L ALT (12-78) U/L Alkaline Phosphatase (45-117) U/L Ammonia 19.4 Total Creatine Kinase 203 H (26-192) U/L Troponin I (0-0.045) ng/ml Total Protein (6.4-8.2) gm/dl Albumin (3.4-5.0) gm/dl Globulin (2.5-4.0) gm/dl Albumin/Globulin Ratio (0.9-2) Lipase (73-393) U/L TSH (0.300-4.500) uIu/ml Ethyl Alcohol mg/dL (0-3) mg/dl COVID-19 Eval Order SARS-CoV-2, RNA, NAAT (NEGATIVE) Administered Medications Buspirone HCl (Buspirone 5 Mg Tab) 10 mg PO BID ARPIT Stop: 11/24/20 22:39 Last Admin: 10/26/20 00:19 Dose: 10 mg Documented by: [id number] Duloxetine HCl (Duloxetine Hcl 20 Mg Cap) 20 mg PO HS ARPIT Stop: 11/24/20 22:39 Last Admin: 10/26/20 00:19 Dose: 20 mg Documented by: [id number] Sodium Chloride (Nss 1000ml) 1,000 mls @ 100 mls/hr IV .Q10H ARPIT Stop: 11/24/20 22:39 Last Infusion: 10/26/20 01:45 Dose: 100 mls/hr Documented by: [id number] Infusion: 10/26/20 01:10 Dose: 0 mls/hr Documented by: [id number] Admin: 10/26/20 00:23 Dose: 100 mls/hr Documented by: [id number] Thiamine HCl 100 mg/ Syringe 10 mls @ 2 mls/min IV QAM ARPIT Stop: 11/24/20 23:29 Last Admin: 10/26/20 00:21 Dose: 2 mls/min Documented by: [id number] Folic Acid 1 mg/ Syringe 10 mls @ 5 mls/min IV QAM ARPIT Stop: 11/24/20 23:29 Last Admin: 10/26/20 00:21 Dose: 5 mls/min Documented by: [id number] Insulin Aspart (Insulin Aspart 100 Units/Ml 3 Ml Pen) 0 units SC ACHS ARPIT Stop: 11/24/20 23:14 Last Admin: 10/26/20 00:22 Dose: 5 units Documented by: [id number] Cosigned by: [id number] Melatonin (Melatonin 3 Mg Tab) 9 mg PO HS PRN PRN Reason: Sleep Stop: 11/25/20 01:16 Last Admin: 10/26/20 01:42 Dose: 9 mg Documented by: [id number] Vitamin D (Cholecalciferol 1,000 Units 25 Mcg Tab) 1,000 units PO HS ARPIT Stop: 11/24/20 22:39 Last Admin: 10/26/20 00:18 Dose: 1,000 units Documented by: [id number] Discontinued Medications Gabapentin (Gabapentin 300 Mg Cap) 300 mg PO ONE ONE Stop: 10/26/20 01:31 Last Admin: 10/26/20 01:41 Dose: 300 mg Documented by: [id number] Multivitamins 10 ml/ Thiamine HCl 100 mg/ Folic Acid 1 mg/Sodium Chloride 1,011.2 mls @ 1,011.2 mls/hr IV .Q1H ONE Stop: 10/25/20 17:09 Last Infusion: 10/25/20 19:51 Dose: 0 mls/hr Documented by: [id number] Admin: 10/25/20 17:25 Dose: 1,011.2 mls/hr Documented by: [id number] Sodium Chloride (Nss 1000ml) 1,000 mls @ 999 mls/hr IV .Q1H1M ONE Stop: 10/25/20 19:12 Last Infusion: 10/25/20 20:00 Dose: 0 mls/hr Documented by: [id number] Admin: 10/25/20 18:56 Dose: 999 mls/hr Documented by: [id number] Famotidine (Pepcid 20mg Iv Push) 20 mg in 5 mls @ 2.5 mls/min IV NOW STA Stop: 10/25/20 19:16 Last Admin: 10/25/20 19:45 Dose: 2.5 mls/min Documented by: [id number] Prochlorperazine 5 mg/ Syringe 5 mls @ 5 mls/min IV ONE ONE Stop: 10/25/20 19:17 Last Admin: 10/25/20 19:45 Dose: 5 mls/min Documented by: [id number] Lorazepam (Ativan) 1 mg in 2 mls @ 2 mls/min IV NOW STA Stop: 10/25/20 19:32 Last Admin: 10/25/20 19:45 Dose: 2 mls/min Documented by: [id number] Insulin Human Regular 3 units/ (Syringe) 3 mls @ 30 mls/min IV NOW ONE Stop: 10/25/20 23:31 Last Admin: 10/26/20 00:20 Dose: 30 mls/min Documented by: [id number] Cosigned by: [id number] Insulin Aspart (Insulin Aspart 100 Units/Ml 3 Ml Pen) 0 units SC 0200 ARPIT Stop: 10/26/20 02:01 Last Admin: 10/26/20 01:41 Dose: 2 units Documented by: [id number] Cosigned by: [id number] Nicotine (Nicotine 21 Mg/24 Hr Tdsy) 21 mg TD NOW STA Stop: 10/25/20 18:45 Last Admin: 10/25/20 18:56 Dose: 21 mg Documented by: [id number] Prochlorperazine (Prochlorperazine 5 Mg/Ml 2 Ml Vial) Confirm Administered Dose 10 mg .ROUTE .STK-MED ONE Stop: 10/25/20 19:44 Last Admin: 10/25/20 19:52 Dose: Not Given Documented by: [id number] Discharge Plan Visit Data Chief Complaint: Illness Stated Complaint: ETOH ED Provider: Mathieu Umaña Discharge Problem: Diabetes mellitus with ketosis, Hyperglycemia, Alcohol dependence, Liver cirrhosis Patient Disposition: Admitted As Inpatient Discharge Instructions Interventions: ED Discharge Assessment Last Done: 10/25/20 22:26 Discharge Problem: Alcohol dependence Qualifiers: Substance use status: with intoxication Complication of substance-induced con dition: with unspecified complication Qualified Code(s): F10.229 - Alcohol dependence with intoxication, unspecified Liver cirrhosis Qualifiers: Hepatic cirrhosis type: alcoholic cirrhosis Ascites presence: without ascites Qualified Code(s): K70.30 - Alcoholic cirrhosis of liver without ascites
--- NOTE | 2020-10-25 16:46 | CT Scan Report ---
HEAD CT NONCONTRAST CT DOSE: 638.56 mGycm HISTORY: Headache. pain fall TECHNIQUE: Multiaxial CT images of the head were performed without the use of intravenous contrast. A utomated exposure control was utilized for this study. A dose lowering technique was utilized adheri ng to the principles of ALARA. Comparison: Head CT 07/06/2020. Findings: The paranasal sinuses and mastoid air cells are clear. The calvarium and skull base are int act. The ventricles and sulci are within normal limits. There is no mass, hematoma, midline shift, or acute infarct. Stable small focus of encephalomalacia within the right temporal lobe. This could be due to old trauma or an old infarct. Impression: No significant change compared to the prior study. No acute intracranial abnormality. ACT 112: Negative or not required by law. Electronically signed by: Delano Murry M.D. 10/25/2020 4:45 PM
--- NOTE | 2020-10-25 16:48 | CT Scan Report ---
CT OF THE CERVICAL SPINE CLINICAL HISTORY: Neck pain status post trauma COMPARISON STUDY: 08/12/2019 CT DOSE: 407.67 mGycm TECHNIQUE: CT scan of the cervical spine was performed from the skull base to the thoracic inlet. Aisha ges are reviewed in the axial, sagittal, and coronal planes. IV contrast was not administered for thi s examination. A dose lowering technique was utilized adhering to the principles of ALARA. FINDINGS: The visualized portions of the lung apices reveal no evidence of pneumothorax. The prevertebral soft tissues are normal. No fractures or subluxations are visualized. There are multilevel degenerative changes There is spinal curvature convex to the left. C1-2 rotation, is likely secondary to head positioning. IMPRESSION: 1. C1-2 rotation, likely secondary to an positioning 2. No fractures identified. ACT 112: Negative or not required by law. Electronically signed by: Blas Schuler M.D. 10/25/2020 4:46 PM
[2020-10-25 17:49] LABS: Alanine Aminotransferase 73 U/L (12-78); Albumin Globulin Ratio 0.9 (0.9-2); Albumin Level 3.9 gm/dl (3.4-5.0); Alkaline Phosphatase 203 U/L (45-117); BUN Creatinine Ratio 17.8 (10-20); Bilirubin,Total 1.1 mg/dl (0.2-1); Blood Urea Nitrogen 14 mg/dl (7-18); Calcium 8.8 mg/dl (8.5-10.1); Carbon Dioxide 22 mmol/L (21-32); Chloride 92 mmol/L (98-107); Est GFR (African American) 101.5; Est GFR (Non-African American) 87.5; Globulin 4.2 gm/dl (2.5-4.0); Glucose 298 mg/dl (70-99); Lipase 43 U/L (73-393); Phosphorus 4.9 mg/dl (2.5-4.9); Sodium 132 mmol/L (136-145); Total Protein 8.1 gm/dl (6.4-8.2); Troponin I < 0.015 ng/ml (0-0.045)
[2020-10-25] MEDS ORDERED: SODIUM CHLORIDE 0.9% 1000ML 1,000 ML IV ONE (18:12)
[2020-10-25] MEDS ORDERED: NICOTINE 21 MG/24 HR TDSY TD STA (18:44)
--- NOTE | 2020-10-25 19:06 | XRay Report ---
XR pelvis 1-2V routine CLINICAL HISTORY: Pelvic pain. Fall. COMPARISON STUDY: Pelvis 08/12/2019. FINDINGS: No fracture or dislocation within the pelvis or hips. The sacrum is intact. Mild osteoarthr itis within the bilateral hips and sacroiliac joints. Soft tissues are unremarkable. IMPRESSION: No fracture or dislocation within the pelvis or hips. ACT 112: Negative or not required by law. Electronically signed by: Delano Murry M.D. 10/25/2020 7:05 PM
--- NOTE | 2020-10-25 19:08 | XRay Report ---
XR chest 1V portable HISTORY: Atypical Chest Pain COMPARISON: Chest 01/18/2020. FINDINGS: No pneumothorax. No pleural effusions. No focal lung consolidations to suggest pneumonia. N o evidence for pulmonary edema. There are old, healed bilateral rib fractures. The heart is normal in size. Mild emphysema. IMPRESSION: 1. No acute process within the chest. 2. Mild emphysema. 3. Old, healed bilateral rib fractures are again noted. ACT 112: Negative or not required by law. Electronically signed by: Delano Murry M.D. 10/25/2020 7:07 PM
--- NOTE | 2020-10-25 19:10 | XRay Report ---
RIGHT TIBIA/FIBULA 2 VIEWS HISTORY: Right lower leg pain fall COMPARISON: None. FINDINGS: There is no fracture or dislocation. Soft tissues are unremarkable. No radiopaque foreign b odies. IMPRESSION: No fractures. ACT 112: Negative or not required by law. Electronically signed by: Delano Murry M.D. 10/25/2020 7:09 PM
[2020-10-25] MEDS ORDERED: FAMOTIDINE 20MG IV PUSH 20 MG/5 ML SYR IV STA (19:15)
[2020-10-25] MEDS ORDERED: PROCHLORPERAZINE 5 MG in SYRINGE 4 ML IV ONE (19:16)
[2020-10-25] MEDS ORDERED: LORazepam 1 MG/2 ML VIAL IV STA (19:31)
[2020-10-25] MEDS ORDERED: PROCHLORPERAZINE 5 MG/ML 2 ML VIAL ONE (19:43)
[2020-10-25 21:01] LABS: Basophils # (auto) 0.02 K/uL (0-0.2); Basophils % (auto) 0.2 %; Hematocrit (blood only) 39.4 % (37-47); Hemoglobin 13.5 g/dL (12.0-16.0); Immature Granulocytes # (auto) 0.02 K/uL (0.00-0.02); Immature Granulocytes % (auto) 0.2 %; Lymphocytes # (auto) 0.88 K/uL (1.2-3.4); Lymphocytes % (auto) 9.1 %; Mean Corpuscular Hemoglobin 30.8 pg (25-34); Mean Corpuscular Hgb Conc 34.3 g/dL (32-36); Mean Corpuscular Volume 89.7 fL (80-100); Mean Platelet Volume 9.6 fL (7.4-10.4); Monocytes # (auto) 0.43 K/uL (0.11-0.59); Monocytes % (auto) 4.4 %; Neutrophils # (auto) 8.37 K/uL (1.4-6.5); Neutrophils % (auto) 86.1 %; Platelet Count 329 K/uL (130-400); RDW Coefficient of Variation 15.9 % (11.5-14.5); RDW Standard Deviation 53.4 fL (36.4-46.3); Red Blood Count 4.39 M/uL (4.2-5.4); White Blood Count 9.72 K/uL (4.8-10.8)
[2020-10-25 21:13] LABS: Partial Thromboplastin Ratio 0.9; Partial Thromboplastin Time 25.6 Seconds (21.0-31.0); Prothrombin Time 10.5 Seconds (9.0-12.0)
--- NOTE | 2020-10-25 21:26 | History & Physical Report ---
Date of Service October 25, 2020 Assessment & Plan (1) Alcohol use disorder: Gem Chiu is a 54-year-old woman with a past medical history of alcohol abuse, liver cirrhosis, exocrine pancreatic insufficiency, neuropathy related to type 1 diabetes, encephalomalacia, history of GI bleed, psoriasis presenting to the ED after her [place] [employer] police officer found her in her apartment with altered mental status and minimally responsive. Alcohol intoxication with blood alcohol level of 428 in ED. Requires admission to medical floor for management of alcohol intoxication, alcohol withdrawal prevention, blood glucose management. Alcohol intoxication - Admit to med/surg - AWSS protocol--Ativan prn, thiamine, folate - Labs pending as per HPI--follow results - s/p banana bagx1 and 1L NS bolus in ED - Replete e-lytes as needed - IVF NSS @ 100cc/hr - Continue home vitamin B12 - CMP in AM Hyperglycemia/DM type I - IVF as above - Continued home insulin glargine dose - ISS--CF: 50, Carb ratio 1:25 - Glycemic consult placed - Carb count/T1DM diet - Glucose checks ac/hs + AM labs Liver cirrhosis - In context of AUD - MELD score of 6 pts (1.9% 3-month mortality chance) - No coagulation abnormalities on labs - Follow final LFT results Diabetic peripheral neuropathy - Continue home gabapentin 300mg PO TID Exocrine pancreatic insufficiency - Continue home Creon 1 cap PO TID Depression - Continue home duloxetine 20mg PO HS - Continue home buspirone 10mg PO BID Vitamin D deficiency - Continue home vitamin D3 1000 units PO HS History of GI bleed - Received famotidine 20mg x1 in ED - Famotidine 10mg BID while admitted for GI ppx FENGI: NSS @100 cc/hr, Carb count/T1DM diet, Famotidine as above for GI ppx DVT ppx: Lovenox 40mg SQ daily Dispo: Admit to med/surg Code Status: Full (2) Liver cirrhosis: (3) Diabetic peripheral neuropathy associated with type 1 diabetes mellitus: (4) History of GI bleed: (5) Exocrine pancreatic insufficiency: (6) Type 1 diabetes mellitus: (7) Hyperglycemia: (8) Vitamin D deficiency: History of Present Illness Chief Complaint: AMS Primary Care Provider: Ana Lilia Madrid MD Gem Chiu is a 54-year-old woman with a past medical history of alcohol abuse, liver cirrhosis, exocrine pancreatic insufficiency, neuropathy related to type 1 diabetes, encephalomalacia, history of GI bleed, psoriasis presenting to the ED after her [place] police officer found her in her apartment with altered mental status and minimally responsive. She appears intoxicated and admits to alcohol consumption, though states she last drank two bottles of wine yesterday evening. She is a poor historian and provides very limited details. She mentions that she is "starving", and says she ate "a lot of food" today. Says she took her usual insulin glargine 8 units today but cannot recall when. In ED received Ativan 1mg, banana bag x1, 1L NS bolus, Pepcid 20mg, prochlorperazine 5mg. CXR, Peliv XR, Tib/Fib XR. c-spine CT, and head Ct all were negative for acute processes/injuries. Labs showed blood alcohol of 428 mg/dL, hyponatremia, hyperglycemia of 298, anion gap of 18, decreased lipase, elevated alk phos. ALT normal. AST, Potassium, magnesium, CK pending. Allergies Allergy/AdvReac Type Severity Reaction Status Date / Time haloperidol [From Haldol] AdvReac Unknown Unknown Verified 10/25/20 20:09 Home Medications Medication Instructions Recorded Confirmed Type cholecalciferol (vitamin D3) 25 1,000 units PO HS 06/23/19 10/25/20 History mcg (1,000 unit) capsule cyanocobalamin (vitamin B-12) 1,000 mcg PO DAILY tab 05/10/20 10/25/20 History 1,000 mcg tablet guselkumab 100 mg/mL subcutaneous 100 mg SQ Q8WK #1 ml 07/18/20 10/25/20 Rx auto-injector buspirone 10 mg tablet 10 mg PO BID #60 tab 08/15/20 10/25/20 Rx duloxetine 20 mg capsule,delayed 20 mg PO HS #30 cap 08/15/20 10/25/20 Rx release duloxetine 60 mg capsule,delayed 60 mg PO QAM #30 cap 08/15/20 10/25/20 Rx release insulin glargine 100 unit/mL (3 8 unit SUBCUT QAM ml 08/17/20 10/25/20 History mL) subcutaneous pen gabapentin 300 mg capsule 300 mg PO TID #90 cap 09/08/20 10/25/20 Rx acetaminophen-codeine 1 - 2 tab PO .Q4-6HRS PRN 10/25/20 10/25/20 History ascorbic acid (vitamin C) [Vitamin 500 mg PO DAILY 10/25/20 10/25/20 History C] bismuth subsalicylate 2 tab PO QID PRN 10/25/20 10/25/20 History [Pepto-Bismol] diphenhydramine HCl [Benadryl 25 - 50 mg PO Q6H PRN 10/25/20 10/25/20 History Allergy] fluticasone propionate [Flonase] 2 spray INTRANASAL DAILY PRN 10/25/20 10/25/20 History [id number] [Creon] 1 cap PO TID 10/25/20 10/25/20 History Past Med/Surg History Medical History Abnormal TSH Per patient treated with thyroid hormone many years earlier Acute respiratory failure with hypoxia Alcohol dependence Alcohol intoxication Alcohol intoxication delirium Alcohol withdrawal Alcohol withdrawal seizure NOT REPORTED BY PATIENT AT TIME OF PAT CALL - LAST EPISODE OVER A YEAR AGO Aspiration pneumonia Bimalleolar ankle fracture Caustic esophageal injury Chronic pancreatitis Cirrhosis of liver "COMPROMISED LIVER" Diabetic peripheral neuropathy associated with type 1 diabetes mellitus DKA (diabetic ketoacidoses) Encephalomalacia Exocrine pancreatic insufficiency History of GI bleed Hydrosalpinx PT UNAWARE IPMN (intraductal papillary mucinous neoplasm) Imaging July 2020 follow-up yearly Leukopenia Lipoma NECK Lipoma Liver cirrhosis, alcoholic Loose bowel movement Metabolic encephalopathy Pancreatic insufficiency Polycystic ovarian syndrome Psoriasis SBO (small bowel obstruction) Resolved Thrombocytopenia Tobacco dependence Vitamin D deficiency Surgical History Amputation of left lower extremity TO APPROX MID CALF History of ankle surgery 02/2019 left ankle ex fix, grade 2 view with MAC 3 and 7.0 ETT History of tooth extraction Family History Uncle Diabetes Mother Breast cancer Sister Breast cancer Father Prostate cancer Other Family history of breast cancer in mother Family history of breast cancer in sister Denies family history of Ovarian cancer Myocardial infarction Colorectal cancer Social History Smoking Status: Current every day smoker Tobacco Type: Cigarettes packs per day: 0.75; Cigarettes Per Day: 15; Second Hand Exposure: No; Tobacco Cessation Education Requested by Patient: No Hx Alcohol Use: Yes Alcohol type: wine Hx Substance Use: No Preferred Language: Albanian Communication Ability: Effective Visual Impairment: No Limitations Interventional Nurse Required: No Beliefs That Will Affect Care: None marital status: marital status details: no children Current Living Situation: Alone current occupational status: disabled Feels Safe at Home: Yes Assistive Devices: Wheelchair Review of Systems Review of Systems: All systems reviewed & are unremarkable except as noted in HPI & below Physical Exam Constitutional: + intoxicated appearing and + thin Eyes: PERRL, conjunctivae normal, anicteric sclerae ENMT: Mouth: + dry oral mucous membranes Neck: trachea midline, no thyromegaly Respiratory: normal respiratory effort, lungs clear to auscultation no labored breathing Auscultation: no crackles, no rales, no rhonchi and no wheezes Cardiovascular: Rate/Rhythm: regular rhythm and + tachycardic Heart Sounds: normal S1 and normal S2 Gastrointestinal (Abdomen): normal bowel sounds, soft, nontender, no hepatosplenomegaly Musculoskeletal: Head/Neck/Chest: head atraumatic Extremities: no cyanosis and no clubbing Skin: no rashes, warm and dry Neurologic: + confused Drowsy, slurred speech Psychiatric: Orientation: alert, oriented to person and oriented to place; + not oriented to time Apperance: + disheveled Lymphatic: no cervical or axillary lymphadenopathy Results & Data Results & Data ([facility]) Vital Signs (Past 12 Hours) Vital Signs Temp Pulse Pulse Resp BP BP Pulse Ox 10/25/20 21:00 117 H 17 105/67 96 10/25/20 19:15 125 H 17 10/25/20 19:00 143 H 14 116/78 10/25/20 18:45 127 H 16 98 10/25/20 18:30 135 H 21 117/76 96 10/25/20 18:15 128 H 16 96 10/25/20 18:00 142 H 13 107/84 95 10/25/20 17:45 111 H 14 94 10/25/20 17:31 123 H 14 95 10/25/20 17:30 120 H 17 143/89 H 94 10/25/20 17:18 122 H 18 131/99 94 10/25/20 17:15 128 H 14 10/25/20 17:00 118 H 15 10/25/20 16:45 126 H 27 H 10/25/20 16:43 115 H 4 L 10/25/20 16:30 119 H 23 121/84 10/25/20 16:01 36.4 C L 107 H 12 130/87 98 Supervising Physician Co-Signing Physician Notes Attending addendum: I have physically seen this patient, have supervised the medical residents activities, and agree with the H&P unless as otherwise noted. Assessment and Plan: Alcohol abuse/alcohol intoxication- Admit to [facility] with telemetry AWSS protocol NSS 100 mils per hour Thiamine 100 mg p.o. daily Folic acid 1 mg p.o. daily Nephrocaps 1 capsule p.o. daily Vitamin B12 1000 mcg p.o. daily Follow serial CBC with differential and chemistry profile Diabetes mellitus- Continue Lantus insulin 8 units subcu every morning. Place on Accu-Cheks before meals and at bedtime with NovoLog coverage per scale Check hemoglobin A1c Exocrine pancreatic insufficiency- Continue Creon 1 capsule p.o. 3 times daily with meals Anxiety with depression- Continue buspirone and duloxetine Diabetic peripheral neuropathy- Continue gabapentin 300 mg p.o. 3 times daily Remaining orders and notations as noted Resident Activity Tracking Resident Involvement: Resident Care Provided Care Provided: Adult Hospital Medicine
[2020-10-25 21:55] LABS: Potassium 4.5 mmol/L (3.5-5.1)
[2020-10-25 22:03] LABS: Bilirubin Direct 0.5 mg/dl (0-0.2)
[2020-10-25] MEDS ORDERED: POLYETHYLENE (MIRALAX) 17 GM PACK PO PRN (22:40)
[2020-10-25] MEDS ORDERED: LORazepam 2 MG/4 ML VIAL IV PRN (22:40)
[2020-10-25] MEDS ORDERED: FLUTICASONE PROPIONATE NA SPR 16 GM BTL PRN (22:40)
[2020-10-25] MEDS ORDERED: LORazepam 1 MG/2 ML VIAL IV PRN ×2 (22:40)
[2020-10-25] MEDS ORDERED: LORazepam 3 MG/6 ML VIAL IV PRN (22:40)
[2020-10-25] MEDS ORDERED: MAGNESIUM HYDROXIDE SUSP 30 ML UDC PO PRN (22:40)
[2020-10-25] MEDS ORDERED: DEXTROSE 50% 50 ML SYRINGE IV PRN (22:40)
[2020-10-25] MEDS ORDERED: ATIVAN IV ALCOHOL WITHDRAWL IV PRN (22:40)
[2020-10-25] MEDS ORDERED: diphenhydrAMINE Capsule 25 MG CAP PO PRN (22:40)
[2020-10-25] MEDS ORDERED: ALUMINUM/MAGNESIUM SUSP 30 ML UDC PO PRN (22:40)
[2020-10-25] MEDS ORDERED: GLUCAGON FOR INJ 1 MG VIAL SQ PRN (22:40)
[2020-10-25] MEDS ORDERED: GLUCOSE 10 TABS/TUBE PO PRN (22:40)
[2020-10-25] MEDS ORDERED: BISMUTH SUBSALICYLATE 262 MG CHEW PO PRN (22:40)
[2020-10-25] MEDS ORDERED: CARBOHYDRATES FOR HYPOGLYCEMIA PO PRN (22:40)
[2020-10-25] MEDS ORDERED: GLUCOSE 40% GEL 15 GM TUBE PO PRN (22:40)
[2020-10-25] MEDS ORDERED: PHARMACY GLYCEMIC MGMT CONSULT PRN (22:57)
[2020-10-25] MEDS ORDERED: INSULIN HUMAN REGULAR PER UNIT 3 UNITS in SYRINGE 2.97 ML IV ONE (23:30)
[2020-10-26] MEDS: CHOLECALCIFEROL 1,000 UNITS 25 MCG TAB PO SCH ×2 (00:18→20:36)
[2020-10-26] MEDS: busPIRone 5 MG TAB PO SCH ×3 (00:19→20:36)
[2020-10-26] MEDS: DULoxetine HCL 20 MG CAP PO SCH ×2 (00:19→20:37)
[2020-10-26] MEDS: FOLIC ACID 1 MG in SYRINGE 9.8 ML IV SCH ×2 (00:21→08:38)
[2020-10-26] MEDS: THIAMINE HCL 100 MG in SYRINGE 9 ML IV SCH ×2 (00:21→08:39)
[2020-10-26] MEDS: INSULIN ASPART 100 UNITS/ML 3 ML PEN SC SCH ×5 (00:22→20:39)
[2020-10-26] MEDS: SODIUM CHLORIDE 0.9% 1000ML 1,000 ML IV SCH ×3 (00:23→14:35)
[2020-10-26] MEDS ORDERED: GABAPENTIN 300 MG CAP PO ONE (01:30)
[2020-10-26] MEDS: MELATONIN 3 MG TAB PO PRN (01:42)
[2020-10-26] MEDS ORDERED: INSULIN ASPART 100 UNITS/ML 3 ML PEN SC SCH (02:00)
[2020-10-26 05:37] LABS: Appearance Urine Clear (Clear); Bacteria Urine Automated Negative (Negative); Bilirubin Urine Negative (Negative); Blood Urine Negative (Negative); Color Urine Dark Yellow; Epithelial Cell Urine Auto >30 /lpf (0-5); Glucose Urine UA 3+ (Negative); Ketones Urine 3+ (Negative); Leukocyte Esterase Urine Negative (Negative); Nitrite Urine Negative (Negative); Protein Urine 2+ (Negative); Specific Gravity Urine 1.022 (1.000-1.030); Urobilinogen Urine Negative (Negative)
[2020-10-26 05:54] LABS: RBC Urine Automated 0-4 /hpf (0-4)
[2020-10-26 07:10] LABS: BUN Creatinine Ratio 16.1 (10-20); Bilirubin,Total 1.9 mg/dl (0.2-1); Calcium 7.6 mg/dl (8.5-10.1); Creatinine Clr Calc Pharmacy 70.1 ml/min; Est GFR (African American) 103.1; Est GFR (Non-African American) 88.9; Globulin 2.9 gm/dl (2.5-4.0); Potassium 4.1 mmol/L (3.5-5.1); Total Protein 5.9 gm/dl (6.4-8.2)
[2020-10-26 07:24] LABS: Beta-Hydroxybutyrate 39.09 mg/dl (0.2-2.81)
[2020-10-26] MEDS ORDERED: SODIUM CHLORIDE 0.9% 1000ML 1,000 ML IV SCH (08:31)
[2020-10-26] MEDS: GABAPENTIN 300 MG CAP PO SCH ×3 (08:35→20:35)
[2020-10-26] MEDS: ENOXAPARIN INJ 40 MG/0.4 ML SYR SQ SCH (08:36)
[2020-10-26] MEDS: FAMOTIDINE 10 MG TABLET PO SCH ×2 (08:39→20:36)
[2020-10-26] MEDS: PANCREAZE (LIPASE 10,500U) CAP PO SCH ×3 (08:39→17:11)
[2020-10-26] MEDS: DULoxetine HCL 60 MG CAP PO SCH (08:41)
[2020-10-26] MEDS: CYANOCOBALAMIN 500 MCG TABLET (VITAMIN B-12) PO SCH (08:41)
[2020-10-26] MEDS: ASCORBIC ACID 500 MG TAB PO SCH (08:42)
[2020-10-26] MEDS ORDERED: GABAPENTIN 300 MG CAP PO SCH (09:00)
[2020-10-26] MEDS ORDERED: INSULIN GLARGINE SOLOSTAR 100 UNITS/ML 3 ML PEN SQ SCH (09:00)
--- NOTE | 2020-10-26 09:56 | Medical Student Progress Note ---
Date of Service October 26, 2020 Assessment & Plan (1) Alcohol use disorder: - Pt is willing to stop drinking and would like to continue receiving care for alcohol withdrawal - Continues to be Tachycardic, which could be secondary to alcohol use or hypovolemia - Continue AWSS protocol - Continue Ativan prn - Continue thiamine, folate - Continue 100ml/hr NS - Start 1L NS Bolus l (2) Type 1 diabetes mellitus: -Elevated glucose on admission (465) -Betahydroxybutryic Acid (39.09) - Normal anion gap (12) in addition to no clinical signs that point to metabolic acidosis make suspicion for DKA low - Continue home med insulin glargine 100 units - Continue insulin sliding scale - Continue home med gabapentin 300mg TID for diabetic neuropathy - Encourage patient to adhere to insulin regimen and checking blood glucose levels regularly (3) Exocrine pancreatic insufficiency: - Secondary to chronic alcohol use - lipase 43 - Continue home med [id number] (Creon) (4) Liver cirrhosis: - Secondary to Alcohol Use Disorder - MELD score of 6 pts (1.9% 3-month mortality chance) - No coagulation abnormalities on labs (PT 10.5, INR 1.0) - AST downtrending 35 from 44, ALT wnl, Alk Phos downtrending 136 from 203 Ascites presence: without ascites Hepatic cirrhosis type: alcoholic cirrhosis Qualified Code(s): K70.30 - Alcoholic cirrhosis of liver without ascites (5) Moderate protein malnutrition: - Total protein 5.9, albumin 3.0 - Low albumin may be due to liver dx; however, in the setting of a normal PT/INR, pt is more likely to have a protein malnutrition - Continue ascorbic acid 500mg - Continue cyanocobalamin 1000mcg (6) Vitamin D deficiency: -continue cholecalciferol (vitamin D3 25mcg (7) Depression: - continue duloxetine 20mg QHS - continue duloxetine 60mg QAM - continue buspirone 10mg BID (8) DVT prophylaxis: -DVT prophylaxis: lovenox 40mg -Diabetic Diet -Dispo: anticipate discharge 1-2 days -Full Code Admission and Anticipated Discharge Date Admission Date: October 25, 2020 Supervising Attestation feeling better. no new complaints. does wnat to quit drinking - notes that she's been more up and down with drinking recently - none sometimes and then a bottle or two of wine when she does - but not regularly right now vitals noted nad heent nc at mmm breathing unlabored no accessory muscles good effort skin no rashes no pallor or icterus neuro no focal deficits EtOH abuse/concern on withdrawal -supportive care/expectant management/symptom triggered therapy --> since up/down abuse recently hopefully will not withdraw significantly this time - will follow into tomorrow to ensure she does not show worsening before transition to outpt uncontrolled DM1 -no DKA -A1c showing erratic degrees of control - anywhere from 7.2 - 14.9 in the last 2 years - so not sure if there's anythign acute about current poor control or if that has been more her normal recently -- either way no metabolic dissaray w DKA/no acidosis/etc - insulin management to improve glycemic control, but mostly outpt management will be needed - and largely suspect (and she admits to) problems w adherence due to EtOH abuse being major barrier. otherwise as above Subjective 54 yo F w/ pmh sig for alcohol abuse, liver cirrhosis, exocrine pancreatic insufficiency, and type I DM s/p BKA presented with altered mental status appearing intoxicated and mildly tremulous admitted for management of alcohol intoxication, alcohol withdrawal prevention, and hyperglycemia management. In the ED, she was given 1L NS, 1mg ativan, 20mg pepcid, 5mg prochlorperazine. Overnight, the pt was anxious and tachycardic and received 1mg ativan. Today, the patient is doing well, but is still tachycardic. Her AWSS score is 5. She is awake, alert, and oriented and understands why she is in the hospital. She states that she drinks about 2-3 alcoholic drinks/day. She states that she does eat about three meals/day from all the food groups. She also states she checks her blood sugar about five times a day. She denies having any high readings recently stating that her last elevated reading was about a week ago. She is experiencing a headache as well as some neck discomfort that she attributes to the fall she had yesterday. She denies nausea/vomitting, tremor, sweats, anxiety, agitation, tactile/visual/auditory hallucinations. Review of Systems Constitutional: denies sweats, fatigue, mailaise Eyes: denies changes in vision, seeing flashes, visual hallucinations Ear, Nose, Mouth, Throat: denies tinnitus, auditory hallucinations Respiratory: denies cough, dyspnea Cardiovascular: Additional Comments: denies palpitations, chest pain Gastrointestinal: denies N/V, abdominal pain Musculoskeletal: + pain at BKA stump Physical Exam Constitutional: + thin, cooperative and + malnourished Eyes: PERRL, conjunctivae normal, anicteric sclerae Neck: + tender lateral to CSpine Respiratory: normal respiratory effort, lungs clear to auscultation Cardiovascular: +tachycardic, normal S1, S2 Gastrointestinal (Abdomen): normal bowel sounds, soft, nontender, no hepatosplenomegaly Musculoskeletal: R. extremity normal to inspection, L. BKA stump normal to inspection Skin: desquamation of the hands and feet Neurologic: awake, alert, oriented X3; pupillary reflexes intact, no signs of tremors, normal finger to nose Psychiatric: Eye Contact: good eye contact Motor Behavior: steady gait and station Speech: normal rate/rhythm/volume of speech Affect: euthymic affect Results & Data ([facility]) Vital Signs (Past 12 Hours) Vital Signs Temp Pulse Pulse Resp BP BP Pulse Ox 10/26/20 07:30 37.3 C 126 H 18 105/60 94 10/25/20 22:41 37 C 132 H 24 107/72 98 10/25/20 22:18 131 H 14 116/64 96 Medications Administered Current Inpatient Medications Acetaminophen (Acetaminophen 325 Mg Tab) 650 mg PO Q4H PRN PRN Reason: pain Stop: 08/06/20 00:59 Last Admin: 07/07/20 01:44 Dose: 650 mg Documented by: Al Hydrox/Mg Hydrox/Simethicone (Aluminum/Magnesium Susp 30 Ml Udc) 15 ml PO Q4H PRN PRN Reason: Dyspepsia Stop: 08/05/20 21:38 Lipase/Protease/Amylase (Pancreaze (Lipase 10,500u) Cap) 1 cap PO TIDM [facility] Stop: 08/06/20 08:59 Last Admin: 07/07/20 17:57 Dose: 1 cap Documented by: Aspirin (Aspirin 81 Mg Ectab) 81 mg PO QAM [facility] Stop: 08/06/20 08:59 Last Admin: 07/07/20 07:53 Dose: 81 mg Documented by: Buspirone HCl (Buspirone 5 Mg Tab) 10 mg PO BID [facility] Stop: 08/05/20 21:38 Last Admin: 07/07/20 07:55 Dose: 10 mg Documented by: Cyanocobalamin (Cyanocobalamin 500 Mcg Tablet (Vitamin B-12)) 1,000 mcg PO DA [facility] Stop: 08/06/20 08:59 Last Admin: 07/07/20 07:53 Dose: 1,000 mcg Documented by: Dextrose (Dextrose 50% 50 Ml Syringe) 25 - 50 ml IV UD PRN; Protocol PRN Reason: Hypoglycemia Protocol Stop: 08/05/20 21:38 Duloxetine HCl (Duloxetine Hcl 60 Mg Cap) 60 mg PO BID [facility] Stop: 08/05/20 21:38 Last Admin: 07/07/20 07:55 Dose: 60 mg Documented by: Enoxaparin Sodium (Enoxaparin Inj 40 Mg/0.4 Ml Syr) 40 mg SQ Q24H [facility] Stop: 08/06/20 08:59 Last Admin: 07/07/20 07:52 Dose: 40 mg Documented by: Folic Acid (Folic Acid 1 Mg Tab) 1 mg PO QAM [facility] Stop: 08/05/20 21:38 Last Admin: 07/07/20 07:54 Dose: 1 mg Documented by: Gabapentin (Gabapentin 300 Mg Cap) 600 mg PO TID [facility] Stop: 08/05/20 21:38 Last Admin: 07/07/20 13:02 Dose: 600 mg Documented by: Glucagon (Glucagon For Inj 1 Mg Vial) 1 mg SQ UD PRN; Protocol PRN Reason: Hypoglycemia Protocol Stop: 08/05/20 21:38 Glucose (Glucose 10 Tabs/Tube) 4 - 8 tabs PO UD PRN; Protocol PRN Reason: Hypoglycemia Protocol Stop: 08/05/20 21:38 Glucose (Glucose 40% Gel 15 Gm Tube) 15 - 30 gm PO UD PRN; Protocol PRN Reason: Hypoglycemia Protocol Stop: 08/05/20 21:38 Lorazepam (Ativan) 1 mg in 2 mls @ 2 mls/min IV UD PRN; Protocol PRN Reason: EtOH Withdrawl AWSS Score 6,7 Stop: 08/05/20 21:38 Last Admin: 07/07/20 13:01 Dose: 2 mls/min Documented by: Lorazepam (Ativan) 2 mg in 4 mls @ 4 mls/min IV UD PRN; Protocol PRN Reason: EtOH Withdrawl AWSS Score 8,9 Stop: 08/05/20 21:38 Lorazepam (Ativan) 3 mg in 6 mls @ 4 mls/min IV ONCE PRN; Protocol PRN Reason: EtOH Withdrawl AWSS Score >=10 Stop: 08/05/20 21:38 Potassium Chloride/Sodium Chloride (Normal Saline W/20 Meq Kcl) 20 meq in 1,000 mls @ 100 mls/hr IV .Q10H [facility] Stop: 08/05/20 21:38 Last Admin: 07/07/20 09:45 Dose: 100 mls/hr Documented by: Insulin Aspart (Insulin Aspart 100 Units/Ml 3 Ml Pen) 0 units SC ACHS [facility] Stop: 08/05/20 21:38 Last Admin: 07/07/20 13:30 Dose: Not Given Documented by: Magnesium Hydroxide (Magnesium Hydroxide Susp 30 Ml Udc) 30 ml PO Q12H PRN PRN Reason: Constipation Stop: 08/05/20 21:38 Miscellaneous (Remove Nicoderm Patch) 1 ea N/A DAILY@0859 [facility] Stop: 08/06/20 08:58 Last Admin: 07/07/20 07:57 Dose: 1 ea Documented by: Miscellaneous (Carbohydrates For Hypoglycemia ) 15 - 30 gm PO UD PRN PRN Reason: Hypoglycemia Protocol Stop: 08/05/20 21:38 Multivitamins (Multivitamin Tab) 1 tab PO PM [facility] Stop: 08/05/20 21:38 Last Admin: 07/06/20 22:27 Dose: 1 tab Documented by: Nicotine (Nicotine 14 Mg/24 Hr Patch) [facility] Stop: 08/06/20 08:59 Last Admin: 07/07/20 07:57 Dose: Not Given Documented by: Nystatin (Nystatin Oint 15 Gm Tube) 1 appln EXT TID PRN PRN Reason: Skin Irritation Stop: 08/05/20 21:38 Ondansetron HCl (Ondansetron Inj 2 Mg/Ml 2 Ml Vial) 4 mg IV Q6H PRN PRN Reason: Nausea Stop: 08/05/20 21:38 Thiamine HCl (Thiamine Hcl 100 Mg Tab) 100 mg PO QAM [facility] Stop: 08/05/20 21:38 Last Admin: 07/07/20 07:54 Dose: 100 mg Documented by: Vitamin D (Cholecalciferol 1,000 Units 25 Mcg Tab) 1,000 units PO HS [facility] Stop: 08/05/20 21:38 Last Admin: 07/06/20 22:26 Dose: 1,000 units Documented by:
[2020-10-26] MEDS ORDERED: COUGH DROP (SUGAR FREE) LOZ 24 LOZ/1 BOX BUCCAL ONE (10:56)
[2020-10-26] MEDS: IBUPROFEN 200 MG TAB PO PRN (10:58)
[2020-10-26] MEDS: MULTIVITAMIN TAB PO SCH (12:42)
--- NOTE | 2020-10-26 13:24 | Pharmacy Report ---
Pharmacy Glycemic Short Note 2 - Date of Service October 26, 2020 - Glycemic Short BSG Results (Last 24 hours): 10/25/20 10/25/20 10/26/20 16:51 20:23 01:37 Glucose 298 H POC Glucose 312 H* 223 H 10/26/20 10/26/20 10/26/20 05:54 08:04 11:36 Glucose 308 H* POC Glucose 277 H 164 H OUTPATIENT ANTIDIABETIC REGIMEN: * Basaglar 8 units SQ qAM * HbA1c: 8.5% (07/07/20) -- updated A1c pending with tomorrow's AM labs ASSESSMENT: * Ms Chiu is a 54yo diabetic female admitted with EtOH intoxication, for withdrawal prevention and blood glucose mgmt. BSGs were elevated on admi ssion. * PMH includes alcohol abuse, liver cirrhosis, exocrine pancreatic insufficiency, neuropathy related to type 1 diabetes, encephalomalacia, history of GI bleed, psoriasis. * Pharmacy glycemic service has followed patient during past admissions, and she appears to fit a "type 1.5" diabetic picture (type 1 DM in the setting of pancreatic insufficiency). * In the past, pt has required very little insulin. PLAN FOR INPATIENT GLYCEMIC CONTROL: * Basal insulin * Lantus 8 units SQ daily * Bolus insulin * NovoLog per scale ACHS or Q6hrs while NPO * Goal Range: Low 120 mg/dL - High 160 mg/dL * Correction Factor: 40 mg/dL/unit * Nutritional / Prandial insulin per carb ratio of 1 unit per 15 grams CHO consumed PLAN FOR DISCHARGE: * pending
--- NOTE | 2020-10-26 18:00 | Billing Data ---
Date of Service October 26, 2020 Coding Level of Care Code 67282 Subseq Hosp Care Lvl 3
--- NOTE | 2020-10-26 18:00 | Billing Data ---
Date of Service October 26, 2020 Coding Level of Care Code 54064 Subseq Hosp Care Lvl 3
[2020-10-26] MEDS ORDERED: Nursing to Pharmacy Communication SCH (19:45)
[2020-10-26] MEDS ORDERED: MICONAZOLE NITRATE POWDER 43 GM EXT PRN (21:24)
[2020-10-27] MEDS: SODIUM CHLORIDE 0.9% 1000ML 1,000 ML IV SCH ×2 (00:12→09:06)
--- NOTE | 2020-10-27 02:10 | Billing Data ---
Date of Service October 27, 2020 Coding Level of Care Code 66718 Initial Inpt Care Lvl 3
[2020-10-27] MEDS: IBUPROFEN 200 MG TAB PO PRN ×3 (03:59→21:29)
--- NOTE | 2020-10-27 05:50 | Electrocardiogram Report ---
Test Reason : Blood Pressure : / mmHG Vent. Rate : 121 BPM Atrial Rate : 121 BPM P-R Int : 128 ms QRS Dur : 080 ms QT Int : 338 ms P-R-T Axes : 083 072 082 degrees QTc Int : 479 ms Sinus tachycardia Otherwise normal ECG When compared with ECG of 06-JUL-2020 14:17, No significant change was found Confirmed by Uche Reid ([id number]) on 10/27/2020 5:49:53 AM Referred By: REFERRED SELF Confirmed By:Uche Reid
[2020-10-27 06:45] LABS: Estimated Average Glucose 324 mg/dl; Hemoglobin A1C 12.9 % (4.5-5.6)
[2020-10-27 07:00] LABS: BUN Creatinine Ratio 11.4 (10-20); Calcium 8.1 mg/dl (8.5-10.1); Creatinine Clr Calc Pharmacy 96.9 ml/min; Est GFR (African American) 123.2; Est GFR (Non-African American) 106.3; Potassium 3.1 mmol/L (3.5-5.1)
[2020-10-27] MEDS: busPIRone 5 MG TAB PO SCH ×2 (08:49→21:03)
[2020-10-27] MEDS: CYANOCOBALAMIN 500 MCG TABLET (VITAMIN B-12) PO SCH (08:49)
[2020-10-27] MEDS: PANCREAZE (LIPASE 10,500U) CAP PO SCH ×3 (08:49→17:47)
[2020-10-27] MEDS: GABAPENTIN 300 MG CAP PO SCH ×3 (08:49→21:04)
[2020-10-27] MEDS: ASCORBIC ACID 500 MG TAB PO SCH (08:49)
[2020-10-27] MEDS: MULTIVITAMIN TAB PO SCH (08:50)
[2020-10-27] MEDS: FOLIC ACID 1 MG in SYRINGE 9.8 ML IV SCH (08:50)
[2020-10-27] MEDS: DULoxetine HCL 60 MG CAP PO SCH (08:50)
[2020-10-27] MEDS: ENOXAPARIN INJ 40 MG/0.4 ML SYR SQ SCH (08:50)
[2020-10-27] MEDS: THIAMINE HCL 100 MG in SYRINGE 9 ML IV SCH (08:50)
[2020-10-27] MEDS: FAMOTIDINE 10 MG TABLET PO SCH ×2 (08:50→21:04)
[2020-10-27] MEDS: INSULIN ASPART 100 UNITS/ML 3 ML PEN SC SCH ×4 (08:52→21:27)
[2020-10-27] MEDS ORDERED: INSULIN GLARGINE SOLOSTAR 100 UNITS/ML 3 ML PEN SQ SCH ×2 (09:00)
[2020-10-27] MEDS ORDERED: POTASSIUM CHLORIDE CRTAB 20 MEQ TABCR PO ONE ×2 (09:15)
--- NOTE | 2020-10-27 10:51 | Discharge Summary ---
Date of Service October 27, 2020 Admission HPI Per Admitting Provider Gem Chiu is a 54-year-old woman with a past medical history of alcohol abuse, liver cirrhosis, exocrine pancreatic insufficiency, neuropathy related to type 1 diabetes, encephalomalacia, history of GI bleed, psoriasis presenting to the ED after her earth science technical officer found her in her apartment with altered mental status and minimally responsive. She appears intoxicated and admits to alcohol consumption, though states she last drank two bottles of wine yesterday evening. She is a poor historian and provides very limited details. She mentions that she is "starving", and says she ate "a lot of food" today. Says she took her usual insulin glargine 8 units today but cannot recall when. In ED received Ativan 1mg, banana bag x1, 1L NS bolus, Pepcid 20mg, prochlorperazine 5mg. CXR, Peliv XR, Tib/Fib XR. c-spine CT, and head Ct all were negative for acute processes/injuries. Labs showed blood alcohol of 428 mg/dL, hyponatremia, hyperglycemia of 298, anion gap of 18, decreased lipase, elevated alk phos. ALT normal. AST, Potassium, magnesium, CK pending. Discharge Data Allergies Allergy/AdvReac Type Severity Reaction Status Date / Time haloperidol [From Haldol] AdvReac Unknown Unknown Verified 10/25/20 20:09 Consultations 10/25/20 19:31 ED Decision to Admit Stat Ordered Studies 10/25/20 16:14 CT cervical spine wo con Stat CT head/brain wo con Stat Hospital Course (1) Alcohol use disorder: Gem Chiu is a 54-year-old woman with a past medical history of alcohol abuse, liver cirrhosis, exocrine pancreatic insufficiency, neuropathy related to type 1 diabetes, encephalomalacia, history of GI bleed, psoriasis presenting to the ED after her earth science technical officer found her in her apartment with altered mental status and minimally responsive. Alcohol intoxication with blood alcohol level of 428 in ED. Requires admission to medical floor for management of alcohol intoxication, alcohol withdrawal prevention, blood glucose management. Alcohol intoxication - Admit to med/surg - AWSS protocol--Ativan prn, thiamine, folate - Labs pending as per HPI--follow results - s/p banana bagx1 and 1L NS bolus in ED - Replete e-lytes as needed - IVF NSS @ 100cc/hr - Continue home vitamin B12 - CMP in AM Hyperglycemia/DM type I - IVF as above - Continued home insulin glargine dose - ISS--CF: 50, Carb ratio 1:25 - Glycemic consult placed - Carb count/T1DM diet - Glucose checks ac/hs + AM labs Liver cirrhosis - In context of AUD - MELD score of 6 pts (1.9% 3-month mortality chance) - No coagulation abnormalities on labs - Follow final LFT results Diabetic peripheral neuropathy - Continue home gabapentin 300mg PO TID Exocrine pancreatic insufficiency - Continue home Creon 1 cap PO TID Depression - Continue home duloxetine 20mg PO HS - Continue home buspirone 10mg PO BID Vitamin D deficiency - Continue home vitamin D3 1000 units PO HS History of GI bleed - Received famotidine 20mg x1 in ED - Famotidine 10mg BID while admitted for GI ppx FENGI: NSS @100 cc/hr, Carb count/T1DM diet, Famotidine as above for GI ppx DVT ppx: Lovenox 40mg SQ daily Dispo: Admit to med/surg Code Status: Full (2) Alcohol intoxication: (3) Liver cirrhosis: (4) Diabetic peripheral neuropathy associated with type 1 diabetes mellitus: (5) History of GI bleed: (6) Exocrine pancreatic insufficiency: (7) Type 1 diabetes mellitus: (8) Hyperglycemia: (9) Vitamin D deficiency: Discharge Plan Discharge Items Reason For Visit: ALCOHOL INTOXICATION Medications and DC Order Prescriptions: No Action duloxetine [Cymbalta] 20 mg capsule,delayed release(DR/EC) 20 mg PO HS Qty: 30 RF: 5 Hold Instructions: does not take gabapentin 300 mg capsule 300 mg PO TID Qty: 90 RF: 1 cholecalciferol (vitamin D3) 1,000 unit capsule 1,000 units PO HS RF: 0 Tremfya 100 mg/mL auto-injector 100 mg SQ Q8WK Qty: 1 RF: 1 buspirone 10 mg tablet 10 mg PO BID Qty: 60 RF: 5 duloxetine [Cymbalta] 60 mg capsule,delayed release(DR/EC) 60 mg PO QAM Qty: 30 RF: 5 Basaglar KwikPen U-100 Insulin 100 unit/mL (3 mL) insulin pen 8 unit subcut QAM RF: 0 cyanocobalamin (vitamin B-12) [Vitamin B-12] 1,000 mcg tablet 1,000 mcg PO DAILY RF: 0 Creon 6,000-19,000 -30,000 unit capsule,delayed release(DR/EC) 1 cap PO TID RF: 0 ascorbic acid (vitamin C) [Vitamin C] 500 mg Tablet 500 mg PO DAILY RF: 0 diphenhydramine HCl [Benadryl Allergy] 25 mg Tablet 25 - 50 mg PO Q6H PRN (Reason: Allergy Symptoms) RF: 0 bismuth subsalicylate [Pepto-Bismol] 262 mg Tablet,Chewable 2 tab PO QID PRN (Reason: Diarrhea) RF: 0 fluticasone propionate [Flonase] 50 mcg/actuation [place],Suspension 2 spray INTRANASAL DAILY PRN (Reason: Allergy Symptoms) RF: 0 acetaminophen-codeine 300-30 mg tablet 1 - 2 tab PO .Q4-6HRS PRN (Reason: Pain) RF: 0 Admission Data Admit Date/Time: 10/25/20 21:15 Attending Provider: Jelani Gabriel Admit Provider: Adelso Younger Primary Care Provider: Ana Lilia Madrid V. Other Providers: Yaneth Bernard ; Adelso Younger
--- NOTE | 2020-10-27 13:47 | Pharmacy Report ---
Pharmacy Glycemic Short Note 2 - Date of Service October 27, 2020 - Glycemic Short BSG Results (Last 24 hours): 10/26/20 10/26/20 10/27/20 16:52 20:15 05:44 Glucose 189 H POC Glucose 249 H 140 H 10/27/20 10/27/20 07:30 11:23 Glucose POC Glucose 243 H 176 H OUTPATIENT ANTIDIABETIC REGIMEN: * Basaglar 8 units SQ qAM * HbA1c: 8.5% (07/07/20) -- updated A1c pending with tomorrow's AM labs ASSESSMENT: 10/27/20: * ES received 26 units of insulin yesterday, with BSGs ranging from 164- 277mg/dL. * Fasting BSG was still elevated this morning, so Lantus dose was increased. * Novolog parameters were also tightened slightly to provide additional prandial insulin. 10/26 * Ms Chiu is a 54yo diabetic female admitted with EtOH intoxication, for withdrawal prevention and blood glucose mgmt. BSGs were elevated on admission. * PMH includes alcohol abuse, liver cirrhosis, exocrine pancreatic insufficiency, neuropathy related to type 1 diabetes, encephalomalacia, histor y of GI bleed, psoriasis. * Pharmacy glycemic service has followed patient during past admissions, and she appears to fit a "type 1.5" diabetic picture (type 1 DM in the setting of pancreatic insufficiency). * In the past, pt has required very little insulin. PLAN FOR INPATIENT GLYCEMIC CONTROL: * Basal insulin * Lantus 10 units SQ daily * Bolus insulin * NovoLog per scale ACHS or Q6hrs while NPO * Goal Range: Low 120 mg/dL - High 160 mg/dL * Correction Factor: 40 mg/dL/unit * Nutritional / Prandial insulin per carb ratio of 1 unit per 13 grams CHO consumed PLAN FOR DISCHARGE: * pending
[2020-10-27] MEDS: ONDANSETRON INJ 2 MG/ML 2 ML VIAL IV PRN (14:34)
[2020-10-27 16:31] LABS: BUN Creatinine Ratio 9.2 (10-20); Calcium 8.6 mg/dl (8.5-10.1); Est GFR (African American) 116.7; Est GFR (Non-African American) 100.7; Potassium 3.5 mmol/L (3.5-5.1)
--- NOTE | 2020-10-27 16:39 | Hospitalist Progress Note ---
Date of Service October 27, 2020 Assessment & Plan (1) Alcohol use disorder: Gem Chiu is a 54-year-old woman with a past medical history of alcohol abuse, liver cirrhosis, exocrine pancreatic insufficiency, neuropathy related to type 1 diabetes, encephalomalacia, history of GI bleed, psoriasis presenting to the ED after her investment officer found her in her apartment with altered mental status and minimally responsive. Alcohol intoxication with blood alcohol level of 428 in ED. Requires admission to medical floor for management of alcohol intoxication, alcohol withdrawal management, blood glucose management. Alcohol intoxication: resolved - AWSS protocol--Ativan prn, thiamine, folate - electrolytes repleted - d/c home with folate and thiamine supplements Hyperglycemia/DM type I - glargine 8 units BID per home regimen - appreciate pharmacy's assistance in glycemic management of this complicated patient - A1c of 12.9, hx of being as low as <7 - continue diabetic education Dizziness - c/o in afternoon after notified of d/c order and vomiting up her lunch - bmp recheck shows no hypokalemia - advised to drink sugar free gatorade along with water to ensure no dilution of electrolytes Liver cirrhosis - MELD score of 6 pts (1.9% 3-month mortality) - No coagulation abnormalities on labs - child kellogg class A Diabetic peripheral neuropathy - Continue home gabapentin 300mg PO TID Exocrine pancreatic insufficiency - Continue home Creon 1 cap PO TID Depression - Continue home duloxetine 20mg PO HS - Continue home buspirone 10mg PO BID Vitamin D deficiency - Continue home vitamin D3 1000 units PO HS History of GI bleed - Received famotidine 20mg x1 in ED - Famotidine 10mg BID while admitted for GI ppx FENGI:encourage PO fluids, Carb count/T1DM diet, Famotidine as above for GI ppx DVT ppx: Lovenox 40mg SQ daily Dispo: home 10/28 AM, will be admitted to inpatient [facility] on ? Code Status: Full (2) Alcohol intoxication: (3) Liver cirrhosis: (4) Diabetic peripheral neuropathy associated with type 1 diabetes mellitus: (5) History of GI bleed: (6) Exocrine pancreatic insufficiency: (7) Type 1 diabetes mellitus: (8) Hyperglycemia: (9) Vitamin D deficiency: Admission and Anticipated Discharge Date Admission Date: October 25, 2020 Supervising Physician Co-Signing Physician Notes earlier was feeling up to going home, later more lightheaded vitals noted nad heent nc at mmm breathing unlabored no accessory muscles good effort skin no rashes no pallor or icterus neuro no focal deficits EtOH abuse/concern on withdrawal -supportive care/expectant management/symptom triggered therapy --> appearing improved overall uncontrolled DM1 -no DKA -A1c showing erratic degrees of control - anywhere from 7.2 - 14.9 in the last 2 years - so not sure if there's anything acute about current poor control or if that has been more her normal recently -- either way no metabolic disarray w DKA/no acidosis/etc - insulin management to improve glycemic control, but mostly outpt management will be needed - and largely suspect (and she admits to) problems w adherence due to EtOH abuse being major barrier. lightheaded -?anxiety vs volume related vs less likely anything withdrawal related - will observe into tomorrow otherwise as above Subjective no complaints this AM. feels well, discussed going home and doing well with alcohol sobriety and controlling blood sugars. Review of Systems Constitutional: no fever, no chills, no body aches and no fatigue Respiratory: no cough and no dyspnea Cardiovascular: no chest pain, no dyspnea and no edema Physical Exam Constitutional: + thin, cooperative and + malnourished Eyes: PERRL, conjunctivae normal, anicteric sclerae Respiratory: normal respiratory effort, lungs clear to auscultation Cardiovascular: +tachycardic, normal S1, S2 Gastrointestinal (Abdomen): normal bowel sounds, soft, nontender, no hepatosplenomegaly Skin: hands visibly peeling, though improved from yesterday. skin remains mildly hyperemic and erythematous. Neurologic: awake, alert, oriented X3; Psychiatric: Eye Contact: good eye contact Motor Behavior: steady gait and station Speech: normal rate/rhythm/volume of speech Affect: euthymic affect Results & Data Results & Data ([facility]) Vital Signs (Past 12 Hours) Vital Signs Temp Pulse Pulse Resp BP Pulse Ox 10/27/20 14:24 36.9 C 115 H 16 154/99 H 97 10/27/20 10:54 36.7 C 99 H 18 155/89 H 99 10/27/20 07:38 36.6 C 97 H 18 162/88 H 97 10/27/20 07:35 95 H Laboratory Results WBC 9.72 K/uL (4.8-10.8) 10/25/20 20:46 RBC 4.39 M/uL (4.2-5.4) 10/25/20 20:46 Hgb 13.5 g/dL (12.0-16.0) 10/25/20 20:46 Hct 39.4 % (37-47) 10/25/20 20:46 MCV 89.7 fL (80-100) 10/25/20 20:46 MCH 30.8 pg (25-34) 10/25/20 20:46 MCHC 34.3 g/dL (32-36) 10/25/20 20:46 RDW Std Deviation 53.4 fL (36.4-46.3) H 10/25/20 20:46 RDW Coeff of Ethel 15.9 % (11.5-14.5) H 10/25/20 20:46 Plt Count 329 K/uL (130-400) 10/25/20 20:46 MPV 9.6 fL (7.4-10.4) 10/25/20 20:46 Immature Gran % (Auto) 0.2 % 10/25/20 20:46 Neut % (Auto) 86.1 % 10/25/20 20:46 Lymph % (Auto) 9.1 % 10/25/20 20:46 [place] % (Auto) 4.4 % 10/25/20 20:46 Eos % (Auto) 0.0 % 10/25/20 20:46 Baso % (Auto) 0.2 % 10/25/20 20:46 Neut # (Auto) 8.37 K/uL (1.4-6.5) H 10/25/20 20:46 Lymph # (Auto) 0.88 K/uL (1.2-3.4) L 10/25/20 20:46 [place] # (Auto) 0.43 K/uL (0.11-0.59) 10/25/20 20:46 Eos # (Auto) 0.00 K/uL (0-0.5) 10/25/20 20:46 Baso # (Auto) 0.02 K/uL (0-0.2) 10/25/20 20:46 Immature Gran # (Auto) 0.02 K/uL (0.00-0.02) 10/25/20 20:46 Absolute Nucleated RBC Cancelled 10/25/20 16:51 Nucleated RBC % (auto) Cancelled 10/25/20 16:51 Neutrophils % (Manual) Cancelled 10/25/20 16:51 Band Neutrophils % Cancelled 10/25/20 16:51 Lymphocytes % (Manual) Cancelled 10/25/20 16:51 Prolymphocyte % Cancelled 10/25/20 16:51 Reactive Lymphs % (Man) Cancelled 10/25/20 16:51 Monocytes % (Manual) Cancelled 10/25/20 16:51 Eosinophils % (Manual) Cancelled 10/25/20 16:51 Basophils % (Manual) Cancelled 10/25/20 16:51 Metamyelocytes % (Man) Cancelled 10/25/20 16:51 Myelocytes % (Man) Cancelled 10/25/20 16:51 Promyelocytes % (Man) Cancelled 10/25/20 16:51 Blast Cells % (Manual) Cancelled 10/25/20 16:51 Plasma Cell % (Manual) Cancelled 10/25/20 16:51 Other Cells % Cancelled 10/25/20 16:51 Nucleated RBC % Cancelled 10/25/20 16:51 Neutrophils # (Manual) Cancelled 10/25/20 16:51 Band Neutrophils # Cancelled 10/25/20 16:51 Total Absolute Neuts Cancelled 10/25/20 16:51 Lymphocytes # (Manual) Cancelled 10/25/20 16:51 Prolymphocyte # Cancelled 10/25/20 16:51 Reactive Lymphs # Cancelled 10/25/20 16:51 Total Abs Lymphocytes Cancelled 10/25/20 16:51 Monocytes # (Manual) Cancelled 10/25/20 16:51 Eosinophils # (Manual) Cancelled 10/25/20 16:51 Basophils # (Manual) Cancelled 10/25/20 16:51 Metamyelocytes # (Man) Cancelled 10/25/20 16:51 Myelocytes # (Manual) Cancelled 10/25/20 16:51 Promyelocytes # (Man) Cancelled 10/25/20 16:51 Blast Cells # (Man) Cancelled 10/25/20 16:51 Plasma Cell # (Manual) Cancelled 10/25/20 16:51 Other Cells # Cancelled 10/25/20 16:51 Nucleated RBCs # (Man) Cancelled 10/25/20 16:51 Hypersegmented Neuts Cancelled 10/25/20 16:51 Hyposegmented Neuts Cancelled 10/25/20 16:51 Hypogranular Neuts Cancelled 10/25/20 16:51 Large Granular Lymphs Cancelled 10/25/20 16:51 # Lrg Granular Lymphs Cancelled 10/25/20 16:51 Hairy Cells Cancelled 10/25/20 16:51 Smudge Cells Cancelled 10/25/20 16:51 Toxic Granulation Cancelled 10/25/20 16:51 Toxic Vacuolation Cancelled 10/25/20 16:51 Dohle Bodies Cancelled 10/25/20 16:51 Chai Rods Cancelled 10/25/20 16:51 Platelet Estimate Cancelled 10/25/20 16:51 Hypogranular Platelets Cancelled 10/25/20 16:51 Clumped Platelets Cancelled 10/25/20 16:51 Giant Platelets Cancelled 10/25/20 16:51 Platelet Satelliting Cancelled 10/25/20 16:51 RBC Morphology Cancelled 10/25/20 16:51 Polychromasia Cancelled 10/25/20 16:51 Hypochromasia Cancelled 10/25/20 16:51 Poikilocytosis Cancelled 10/25/20 16:51 Basophilic Stippling Cancelled 10/25/20 16:51 Anisocytosis Cancelled 10/25/20 16:51 Microcytosis Cancelled 10/25/20 16:51 Macrocytosis Cancelled 10/25/20 16:51 Spherocytes Cancelled 10/25/20 16:51 Pappenheimer Bodies Cancelled 10/25/20 16:51 Sickle Cells Cancelled 10/25/20 16:51 Target Cells Cancelled 10/25/20 16:51 Tear Drop Cells Cancelled 10/25/20 16:51 Ovalocytes Cancelled 10/25/20 16:51 Stomatocytes Cancelled 10/25/20 16:51 Mcmahan-Brookings Bodies Cancelled 10/25/20 16:51 Echinocytes Cancelled 10/25/20 16:51 Acanthocytes (Spur) Cancelled 10/25/20 16:51 Rouleaux Cancelled 10/25/20 16:51 RBC Agglutinates Cancelled 10/25/20 16:51 Schistocytes Cancelled 10/25/20 16:51 RBC Morph Comment Cancelled 10/25/20 16:51 Sezary Cell Cancelled 10/25/20 16:51 PT 10.5 Seconds (9.0-12.0) 10/25/20 20:46 INR 1.0 (0.9-1.1) 10/25/20 20:46 APTT 25.6 Seconds (21.0-31.0) 10/25/20 20:46 PTT Ratio 0.9 10/25/20 20:46 Sodium 136 mmol/L (136-145) 10/27/20 15:59 Potassium 3.5 mmol/L (3.5-5.1) 10/27/20 15:59 Chloride 102 mmol/L (98-107) 10/27/20 15:59 Carbon Dioxide 28 mmol/L (21-32) 10/27/20 15:59 Anion Gap 6.0 (3-11) 10/27/20 15:59 BUN 6 mg/dl (7-18) L 10/27/20 15:59 Creatinine 0.65 mg/dl (0.6-1.2) 10/27/20 15:59 Est Cr Clr Drug Dosing 82.0 ml/min 10/27/20 15:59 Est GFR ( Amer) 116.7 10/27/20 15:59 Est GFR (Non-Af Amer) 100.7 10/27/20 15:59 BUN/Creatinine Ratio 9.2 (10-20) L 10/27/20 15:59 Glucose 91 mg/dl (70-99) 10/27/20 15:59 POC Glucose 114 mg/dl (70-99) H 10/27/20 16:23 Estimat Average Glucose 324 mg/dl 10/27/20 05:44 Hemoglobin A1c 12.9 % (4.5-5.6) H 10/27/20 05:44 Calcium 8.6 mg/dl (8.5-10.1) 10/27/20 15:59 Phosphorus 4.9 mg/dl (2.5-4.9) 10/25/20 16:51 Magnesium 2.0 mg/dl (1.8-2.4) 10/25/20 20:46 Total Bilirubin 1.9 mg/dl (0.2-1) H D 10/26/20 05:54 Direct Bilirubin 0.5 mg/dl (0-0.2) H 10/25/20 20:46 AST 35 U/L (15-37) 10/26/20 05:54 ALT 48 U/L (12-78) 10/26/20 05:54 Alkaline Phosphatase 136 U/L (45-117) H 10/26/20 05:54 Ammonia 19.4 umol/L (11-32) 10/25/20 20:46 Total Creatine Kinase 203 U/L (26-192) H 10/25/20 20:46 Troponin I < 0.015 ng/ml (0-0.045) 10/25/20 16:51 Total Protein 5.9 gm/dl (6.4-8.2) L D 10/26/20 05:54 Albumin 3.0 gm/dl (3.4-5.0) L 10/26/20 05:54 Globulin 2.9 gm/dl (2.5-4.0) 10/26/20 05:54 Albumin/Globulin Ratio 1.0 (0.9-2) 10/26/20 05:54 Lipase 43 U/L (73-393) L 10/25/20 16:51 Beta-Hydroxybutyric Acd 39.09 mg/dl (0.2-2.81) H 10/26/20 05:54 TSH 1.400 uIu/ml (0.300-4.500) 10/25/20 16:51 Urine Color Dark Yellow 10/26/20 05:09 Urine Appearance Clear (Clear) 10/26/20 05:09 Urine pH 6.0 (4.5-7.5) 10/26/20 05:09 Ur Specific [place] 1.022 (1.000-1.030) 10/26/20 05:09 Urine Protein 2+ (Negative) H 10/26/20 05:09 Urine Glucose (UA) 3+ (Negative) H 10/26/20 05:09 Urine Ketones 3+ (Negative) H 10/26/20 05:09 Urine Blood Negative (Negative) 10/26/20 05:09 Urine Nitrite Negative (Negative) 10/26/20 05:09 Urine Bilirubin Negative (Negative) 10/26/20 05:09 Urine Urobilinogen Negative (Negative) 10/26/20 05:09 Ur Leukocyte Esterase Negative (Negative) 10/26/20 05:09 Urine WBC (Auto) 1-5 /hpf (0-5) 10/26/20 05:09 Urine RBC (Auto) 0-4 /hpf (0-4) 10/26/20 05:09 U Hyaline Cast (Auto) 1-5 /lpf (0-5) 10/26/20 05:09 U Epithel Cells (Auto) >30 /lpf (0-5) H 10/26/20 05:09 Urine Bacteria (Auto) Negative (Negative) 10/26/20 05:09 Urine Yeast Budding (None Prsent) A 10/26/20 05:09 Ethyl Alcohol mg/dL 428.0 mg/dl (0-3) H 10/25/20 16:51 COVID-19 Eval Order Covid19 [facility]Now [facility] 10/25/20 17:37 SARS-CoV-2, RNA, NAAT NEGATIVE (NEGATIVE) 10/25/20 17:37 Resident Activity Tracking Resident Involvement: Resident Care Provided Care Provided: Adult Hospital Medicine (1) Alcohol intoxication Complication of substance-induced condition: uncomplicated Qualified Code(s): F10.920 - Alcohol use, unspecified with intoxication, uncomplicated (2) Liver cirrhosis Ascites presence: without ascites Hepatic cirrhosis type: alcoholic cirrhosis Qualified Code(s): K70.30 - Alcoholic cirrhosis of liver without ascites
--- NOTE | 2020-10-27 17:18 | Billing Data ---
Date of Service October 27, 2020 Coding Level of Care Code 63408 Subseq Hosp Care Lvl 3
[2020-10-27] MEDS: DULoxetine HCL 20 MG CAP PO SCH (21:03)
[2020-10-27] MEDS: CHOLECALCIFEROL 1,000 UNITS 25 MCG TAB PO SCH (21:05)
[2020-10-27] MEDS: MELATONIN 3 MG TAB PO PRN (21:29)
[2020-10-28] MEDS: IBUPROFEN 200 MG TAB PO PRN ×2 (05:01→12:13)
[2020-10-28] MEDS: ONDANSETRON INJ 2 MG/ML 2 ML VIAL IV PRN (07:06)
[2020-10-28] MEDS: PANCREAZE (LIPASE 10,500U) CAP PO SCH ×2 (08:27→12:05)
[2020-10-28] MEDS: CYANOCOBALAMIN 500 MCG TABLET (VITAMIN B-12) PO SCH (08:27)
[2020-10-28] MEDS: FAMOTIDINE 10 MG TABLET PO SCH (08:27)
[2020-10-28] MEDS: DULoxetine HCL 60 MG CAP PO SCH (08:28)
[2020-10-28] MEDS: ASCORBIC ACID 500 MG TAB PO SCH (08:28)
[2020-10-28] MEDS: MULTIVITAMIN TAB PO SCH (08:28)
[2020-10-28] MEDS: GABAPENTIN 300 MG CAP PO SCH (08:28)
[2020-10-28] MEDS: busPIRone 5 MG TAB PO SCH (08:29)
[2020-10-28] MEDS: INSULIN ASPART 100 UNITS/ML 3 ML PEN SC SCH ×2 (08:30→12:07)
[2020-10-28] MEDS: FOLIC ACID 1 MG in SYRINGE 9.8 ML IV SCH (08:31)
[2020-10-28] MEDS: THIAMINE HCL 100 MG in SYRINGE 9 ML IV SCH (08:31)
[2020-10-28] MEDS: ENOXAPARIN INJ 40 MG/0.4 ML SYR SQ SCH (08:45)
[2020-10-28] MEDS ORDERED: INSULIN GLARGINE SOLOSTAR 100 UNITS/ML 3 ML PEN SQ SCH (09:00)
--- NOTE | 2020-10-28 09:27 | Discharge Summary ---
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 She appears intoxicated and admits to alcohol consumption, though states she last drank two bottles of wine yesterday evening. She is a poor historian and provides very limited details. She mentions that she is "starving", and says she ate "a lot of food" today. Says she took her usual insulin glargine 8 units today but cannot recall when. In ED received Ativan 1mg, banana bag x1, 1L NS bolus, Pepcid 20mg, prochlorperazine 5mg. CXR, Peliv XR, Tib/Fib XR. c-spine CT, and head Ct all were negative for acute processes/injuries. Labs showed blood alcohol of 428 mg/dL, hyponatremia, hyperglycemia of 298, anion gap of 18, decreased lipase, elevated alk phos. ALT normal. AST, Potassium, magnesium, CK pending. Admission Exam Per Admitting Provider Constitutional: + intoxicated appearing and + thin Eyes: PERRL, conjunctivae normal, anicteric sclerae ENMT: Mouth: + dry oral mucous membranes Neck: trachea midline, no thyromegaly Respiratory: normal respiratory effort, lungs clear to auscultation no labored breathing Auscultation: no crackles, no rales, no rhonchi and no wheezes Cardiovascular: Rate/Rhythm: regular rhythm and + tachycardic Heart Sounds: normal S1 and normal S2 Gastrointestinal (Abdomen): normal bowel sounds, soft, nontender, no hepatosplenomegaly Musculoskeletal: Head/Neck/Chest: head atraumatic Extremities: no cyanosis and no clubbing Skin: no rashes, warm and dry Neurologic: + confused Drowsy, slurred speech Psychiatric: Orientation: alert, oriented to person and oriented to place; + not oriented to time Apperance: + disheveled Lymphatic: no cervical or axillary lymphadenopathy Principal Diagnosis Alcohol intoxication Discharge Exam General: A&Ox3. NAD. Cooperative. Thin. HEENT: Atraumatic, normocephalic. PERLAA. Vision grossly intact. Pulm: CTAB A&P. -wheezes, -rales, -rhonchi. Symmetrical chest rise. No increase work of breathing. No respiratory distress. Cardiac: RRR, -mrg. Radial pulses intact and symmetrical. Abdominal: Nontender, nondistended, soft. BS present. Ext: Moving all extremities equally. Sensation grossly intact. 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 Alcohol intoxication with blood alcohol level of 428 in ED. Requires admission to medical floor for management of alcohol intoxication, alcohol withdrawal management, blood glucose management. Alcohol intoxication: anais Rabago was admitted for acute alcohol intoxication with an alcohol of 428 with concern for alcohol withdrawal. She was placed on CHENTE S protocol and received Ativan as needed with thiamine and folate. Her electrolytes were repleted. She did clinically well, and was not requiring Ativan at time of discharge. She is not tremulous at time of discharge. She is not having hallucinations over the course of her hospitalization or discharge. She expressed that she had good support systems at home, and felt that she could remain sober with the support systems and follow-up to her primary care physician. 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 Had previously been well controlled on basal bolus insulin with A1c's of approximately 7, but was noted to have an A1c of 12.9 on admission. She reports she has been using only glargine 8 units twice daily at home. She has a continuous glucose monitor which she was unsure of how to use. He was placed on basal bolus insulin during admission with good glycemic control. She was provided diabetic education including teaching on how to pair her phone to her CGM. At discharge she was prescribed insulin aspart and instructed to take 4 units with meals, and to decrease this to 3 units for smaller or low carb meals and to increase to 5 units for larger or high carb meals. She expressed an understanding of these instructions. Hypoglycemic precautions were discussed. She was discharged to further follow-up with her outpatient provider and to schedule follow-up with her endocrinology office in [place]. She was continued on pancreatic Creon as below. Dizziness Patient experienced lightheadedness and dizziness during admission. This improved with electrolyte and fluid repletion over the course of her stay. No additional work-up was required. Liver cirrhosis - MELD score of 6 pts (1.9% 3-month mortality) - No coagulation abnormalities on labs - child kellogg class A Diabetic peripheral neuropathy - Continue home gabapentin 300mg PO TID Exocrine pancreatic insufficiency - Continue home Creon 1 cap PO TID was continued during admission, and continued on discharge. Depression - Continued home duloxetine 20mg PO HS - Continued home buspirone 10mg PO BID Vitamin D deficiency - Continued home vitamin D3 1000 units PO HS History of GI bleed - Received famotidine 20mg x1 in ED - Famotidine 10mg BID while admitted for GI ppx -She did not show any signs of active bleeding during admission. DVT prophylaxis: She was continued on Lovenox 40 mg subcu daily for DVT prophylaxis. Total Time Total Time Spent Total Time Spent (In Minutes): See Attending Documentation Discharge Plan Discharge Items Patient Disposition: Home - Self-Care Reason For Visit: ALCOHOL INTOXICATION Discharge Diagnosis: Alcohol intoxication and withdrawal Activity: Resume your previous activity Non-emergency contact: Primary Care Provider Call non-emergency contact if: you have any medication questions and your symptoms worsen Follow-up/Referrals: Ana Lilia Madrid MD [Primary Care Provider] - 11/02/20 2:15 pm Diet: Regular Addtl Attending Provider Instructions: You were seen in the hospital for acute alcohol intoxication and withdrawal. As we discussed, you have done very well in the past with controlling your addiction and have full support and ability to do so again. Keep in contact with people and physicians who support your journey to staying sober. This will also help you stay on top of your type 1 diabetes. You have had medication changes made as below. Your dose of insulin glargine, long-acting insulin, has been changed. Please take 10 units of insulin glargine every morning. You have been prescribed a new medication, insulin aspart, a short acting insulin taken just before meals. Please take 4 units of insulin aspart with meals. If you have a meal that has a very small amount of carbohydrates and sugars, you may take 2 or 3 units instead. If you have a meal with a large amount of carbohydrates or sugars you may take 5 units instead. Please check your blood sugar 1.5 hours after meals, this will help you understand how your insulin and meal composition affects your blood sugar. If your blood sugar goes below 90, and/or you experience lightheadedness, sweating, chills, nausea, vomiting or other signs of low blood sugar these drink a small glass of juice and contact your primary care office, or call 911 if you are very concerned. Please follow-up with your primary care physician for additional insulin/diabetic teaching. A follow-up appointment is being scheduled for you with your primary care physician Ana Lilia Madrid MD. You should be seen within 1 week of discharge. If you do not receive a call to confirm your appointment within 48 hours, or need to change your appointment date, please call her office at [phone]. You should be seen for follow-up by your cyber analyst, Dr. Rodriguez. An appointment for follow-up is being made for you. Should be seen within 1 month. If you do not receive a call to confirm your appointment, or need to cancel or change your appointment please call his office at . If you develop any new or worsening symptoms including fever, chills, sweats, chest pain, chest pressure, difficulty breathing, uncontrolled nausea/vomiting, rash, wheezing, passing out or nearly passing out, bleeding, black/bloody bowel movements, or other new or concerning symptoms please call your primary care federico mariee at [phone], or call [phone] for re-evaluation in the emergency department if you are very concerned. Pending Studies at Discharge: No Stand-Alone Forms: [employer], Smoking Cessation Medications and DC Order Prescriptions: New insulin aspart U-100 100 unit/mL (3 mL) insulin pen 4 unit subcut TID Qty: 15 RF: 0 Continued duloxetine [Cymbalta] 20 mg capsule,delayed release(DR/EC) 20 mg PO HS Qty: 30 RF: 5 Hold Instructions: does not take gabapentin 300 mg capsule 300 mg PO TID Qty: 90 RF: 1 cholecalciferol (vitamin D3) 1,000 unit capsule 1,000 units PO HS RF: 0 Tremfya 100 mg/mL auto-injector 100 mg SQ Q8WK Qty: 1 RF: 1 buspirone 10 mg tablet 10 mg PO BID Qty: 60 RF: 5 duloxetine [Cymbalta] 60 mg capsule,delayed release(DR/EC) 60 mg PO QAM Qty: 30 RF: 5 cyanocobalamin (vitamin B-12) [Vitamin B-12] 1,000 mcg tablet 1,000 mcg PO DAILY RF: 0 Creon 6,000-19,000 -30,000 unit capsule,delayed release(DR/EC) 1 cap PO TID RF: 0 ascorbic acid (vitamin C) [Vitamin C] 500 mg Tablet 500 mg PO DAILY RF: 0 diphenhydramine HCl [Benadryl Allergy] 25 mg Tablet 25 - 50 mg PO Q6H PRN (Reason: Allergy Symptoms) RF: 0 bismuth subsalicylate [Pepto-Bismol] 262 mg Tablet,Chewable 2 tab PO QID PRN (Reason: Diarrhea) RF: 0 fluticasone propionate 50 mcg/actuation Sarah,Suspension 2 spray INTRANASAL DAILY PRN (Reason: Allergy Symptoms) RF: 0 acetaminophen-codeine 300-30 mg tablet 1 - 2 tab PO .Q4-6HRS PRN (Reason: Pain) RF: 0 Changed Basaglar KwikPen U-100 Insulin 100 unit/mL (3 mL) insulin pen 10 unit subcut QAM Qty: 0 RF: 0 Discharge Orders: Discharge Order (Routine); Ordered 10/28/20 Ordered By: Riki Jacinto Admission Data Admit Date/Time: 10/25/20 21:15 Attending Provider: Jelani Gabriel Admit Provider: Adelso Younger Primary Care Provider: Ana Lilia Madrid V. Other Providers: Yaneth Bernard ; Adelso Younger Other Interventions: Discharge Summary Assessment (RN) Last Done: 10/28/20 12:41 Supervising Physician Co-Signing Physician Notes I personally examined the patient and verified all jay points of history and exam, discussed case, and agree with decision making with Dr Jacinto. feeling better overall - still a little dizzy but notes actually this is an ongoing thing w sinus issues and barometric pressure. feels ok to go home vitals noted nad heent nc at mmm breathing unlabored no accessory muscles good effort skin no rashes no pallor or icterus neuro no focal deficits EtOH abuse/concern on withdrawal -fortunately no serious withdrawal occured, stable for home uncontrolled DM1 -no DKA -A1c showing erratic degrees of control - anywhere from 7.2 - 14.9 in the last 2 years - so not sure if there's anything acute about current poor control or if that has been more her normal recently -- either way no metabolic disarray w DKA/no acidosis/etc - insulin management to improve glycemic control, but mostly outpt management will be needed - and largely suspect (and she admits to) problems w adherence due to EtOH abuse being major barrier. -additionally she was only on basal recently - no bolus. had been in the past - she expressed confusion on the role of bolus insulin but then expressed fairly good understanding once explained. appears on review of outpt records that somewhere along the way in the past the log insulin was dropped - most likely by her in difficulties with addiction struggles - and that endocrine was working on a stepwise plan to attain better control and re-institute log insulin. because she seems receptive today - and is working to sobriety - will restart. -ongoing outpt/endocrine f/u otherwise as above Resident Activity Tracking Resident Involvement: Resident Care Provided Care Provided: Pediatric Care
--- NOTE | 2020-10-28 13:47 | Billing Data ---
Date of Service October 28, 2020 Coding Level of Care Code D/C Day Management <30 mins
== END 2020-10-28 14:19 | disposition home or self-care (01) | DRG 897 ==
LOC: ED 15:59 → 2N 21:15 → SUATTDRO 21:15 → 2N 22:26

== ENCOUNTER 2022-05-21 17:47 | Inpatient (IN) ==
[2022-05-21] MEDS ORDERED: MULTI-VITAMIN INFUSION 10 ML, THIAMINE HCL 100 MG, FOLIC ACID 1 MG in SODIUM CHLORIDE 0... IV ONE (17:56)
[2022-05-21] MEDS ORDERED: SODIUM CHLORIDE 0.9% 1000ML 500 ML IV ONE ×2 (17:56→21:00)
--- NOTE | 2022-05-21 18:02 | Emergency Department Note ---
Impression & Plan Alcohol abuse, Alcohol intoxication, Elevated lactic acid level, Leukocytosis ED Provider Note NAME: NANCY CORREA AGE: 56 SEX: F : 1965 ARRIVES VIA: Ambulance INFORMANT: [Patient][ems, nursing] ED PROVIDER(S): [Lauro Porter MD] CHIEF COMPLAINT: Illness HISTORY OF PRESENT ILLNESS: The patient is a 56-year-old female with a history of alcoholism who presents to the ER with confusion and presumed alcohol intoxication. The police performed a wellness check as the patient's mother had not heard from her in some time. They found her sitting in her wheelchair confused with alcohol of different times all over the house. She smelled strongly of urine. The patient currently is not able to respond to questioning. She keeps saying that she is afraid. As per EMS, no trauma reported. Given the circumstances no further history obtainable. REVIEW OF SYSTEMS: Unobtainable given the mental state. PMHx/PSHx: See Below SOCIAL HISTORY: See Below. PHYSICAL EXAM: GENERAL: Patient is in no acute distress. Smells strongly of urine. HEENT: No acute trauma, normocephalic atraumatic, mucous membranes moist, no nasal congestion, no scleral icterus. Pupils equal and reactive to light. NECK: No stridor, no adenopathy, no meningismus, trachea is midline. LUNGS: Clear to auscultation bilaterally, no wheeze, no rhonchi, breath sounds equal. HEART: Mildly tachycardic, regular rhythm, no murmurs. ABDOMEN: Soft, nontender, bowel sounds positive, no peritonitis. EXTREMITIES: No cyanosis or edema, full range of motion of all the joints withou t pain or difficulty, no signs for acute trauma. Left below the knee amputation. NEUROLOGIC: Awake, moaning, moves all extremities. SKIN: No rash, no jaundice, no diaphoresis. Buttock: No skin breakdown detected. DIFFERENTIAL DIAGNOSIS: Alcohol abuse, alcohol intoxication, electrolyte imbalance, anemia, infection, COVID-19, pneumonia, intracranial bleeding, rhabdomyolysis, drug abuse, among others. EMERGENCY DEPARTMENT COURSE/PROCEDURES: ECG: Indication was altered mental state. The ECG shows a sinus tachycardia with a rate of 106. There is artifact present. There is no ST elevation, no PVCs. The QTc is 459. Continuous Cardiac Monitoring: An order was placed for continuous cardiac monitoring. The monitor shows a rate of 120 with sinus tachycardia. Critical Care Note: I have personally spent 51 minutes of critical care time in the direct management of this patient. This includes bedside care, interpretation of diagnostic studies, and testing, discussion with consultants, patient, and family members, and other required patient management activities. This 51 minutes is in excess of all separately billable procedures. MEDICAL DECISION MAKING: There is a slight leukocytosis, this could be consistent with infection or just the stress of her presentation. Hemoglobin was high consistent with dehydration. There was a normal platelet count. No coagulopathy. No renal failure or significant electrolyte abnormality. Lactic acid level was elevated, this elevation could be consistent with dehydration, hypoxia or infection. Alk phos slightly elevated, the remaining liver enzymes were unremarkable. Ammonia level was not elevated. Total CK was not elevated making rhabdomyolysis unlikely. Patient appeared to be in a euthyroid state. Procalcitonin level was normal. ECG showed a sinus tachycardia, no obvious ischemia. Cardiac enzyme testing x1 is not consistent with acute cardiac injury. Urinalysis did not show infection. Urine tox showed marijuana. Aspirin and Tylenol levels were undetectable. Alcohol level was high at 309. COVID test returned negative. Chest x-ray did not show pneumonia or CHF. Brain CT showed no acute bleed or mass-effect. The patient presented altered, confused, tachycardic. She began vomiting when she arrived here in the ED. The patient was given IV saline, 1 L. She was given IV saline coupled with thiamine and folate. She received IV Phenergan, a second dose of IV Phenergan was administered. She was given IV Zofran, second dose of IV Zofran was administered. She was given IV Ativan and then a second dose of IV Ativan. She received IV cefepime as empiric antibiotic coverage. The patient is clearly in need of a hospital stay. She is dehydrated, altered, quite intoxicated with alcohol. She requires hydration, alcohol detox. Her lactic acid level can be followed/trended. I spoke with the patient, I talked to case management. The on-call hospitalist was consulted. Past Med/Surg History Medical History Alcohol withdrawal seizure NOT REPORTED BY PATIENT AT TIME OF PAT CALL - LAST EPISODE OVER A YEAR AGO Aspiration pneumonia Caustic esophageal injury Chronic pancreatitis Cirrhosis of liver "COMPROMISED LIVER" Diabetes type 1, uncontrolled Diabetic peripheral neuropathy associated with type 1 diabetes mellitus Dysesthesia Dyslipidemia Encephalomalacia Exocrine pancreatic insufficiency History of alcohol abuse History of GI bleed Hydrosalpinx PT UNAWARE IPMN (intraductal papillary mucinous neoplasm) Imaging July 2020 follow-up yearly Leukopenia Lipoma NECK Polycystic ovarian syndrome Psoriasis SBO (small bowel obstruction) Resolved Thrombocytopenia Tobacco dependence Vitamin D deficiency Surgical History Amputation of left lower extremity TO APPROX MID CALF History of ankle surgery 02/2019 left ankle ex fix, grade 2 view with MAC 3 and 7.0 ETT History of tooth extraction Family History Uncle Diabetes Mother Breast cancer Sister Breast cancer Father Prostate cancer Other Family history of breast cancer in mother Family history of breast cancer in sister Denies family history of Ovarian cancer Myocardial infarction Colorectal cancer Social History Smoking Status: Current every day smoker Tobacco Type: Cigarettes packs per day: 0.75; Cigarettes Per Day: 15; Second Hand Exposure: No; Hx Alcohol Use: Yes Alcohol type: wine Hx Substance Use: No Preferred Language: Dominican Communication Ability: Effective Visual Impairment: No Limitations Plant 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 Required: No Beliefs That Will Affect Care: None marital status: marital status details: no children Current Living Situation: Alone current occupational status: disabled Feels Safe at Home: Yes Assistive Devices: Wheelchair Allergies Allergies Allergy/AdvReac Type Severity Reaction Status Date / Time haloperidol [From Haldol] AdvReac Unknown Unknown Verified 05/21/22 19:01 Home Meds Home Medications Medication Instructions Recorded Confirmed cholecalciferol (vitamin D3) 25 1,000 units PO HS 06/23/19 05/21/22 mcg (1,000 unit) capsule cyanocobalamin (vitamin B-12) 1,000 mcg PO DAILY 05/10/20 05/21/22 1,000 mcg tablet (Vitamin B-12) diphenhydramine HCl 25 mg tablet 25 - 50 mg PO Q6H PRN Allergy 10/25/20 05/21/22 (Benadryl Allergy) Symptoms fluticasone propionate 50 2 spray intranasal DAILY PRN 10/25/20 05/21/22 mcg/actuation nasal Allergy Symptoms spray,suspension blood-glucose meter 05/21/21 05/21/22 ascorbic acid (vitamin C) 500 mg 500 mg PO Q OTHER DAY 07/04/21 05/21/22 tablet (Vitamin C) multivitamin 1 tab PO DAILY 12/24/21 05/21/22 folic acid 1 mg tablet 1 mg PO DAILY 05/21/22 05/21/22 insulin aspar prot-insulin aspart 60 unit subcut UD 05/21/22 05/21/22 100 unit/mL (70-30) subcutaneous pen (Novolog Mix 70-30FlexPen U-100) Previous Rx's Medication Instructions Recorded acetone (urine) test (Ketostix #50 ea 04/12/21 strips) gabapentin 300 mg capsule 300 mg PO TID #90 caps 04/01/22 atorvastatin 20 mg tablet 20 mg PO QPM #30 tabs 04/10/22 clobetasol 0.05 % scalp solution 1 applic topical DAILY #50 mL 04/22/22 fucyvu-qrbosauj-jvqaxom 1 cap PO TID #90 caps 04/22/22 6,000-19,000-30,000 unit capsule,delayed rel (Creon) buspirone 15 mg tablet 15 mg PO BID #60 tabs 04/30/22 duloxetine 20 mg capsule,delayed 20 mg PO HS #30 caps 04/30/22 release (Cymbalta) duloxetine 60 mg capsule,delayed 60 mg PO QAM #30 caps 04/30/22 release (Cymbalta) flash glucose sensor (FreeStyle #2 ea 05/08/22 Janny 2 Sensor kit) Results & Data (ED) Vital Signs Vital Signs - 24 hr 05/21/22 18:14 05/21/22 17:57 05/21/22 19:40 Temperature 36.7 C Temperature Source Oral Pulse Rate 120 H 110 H Pulse Rate from SpO2 Sensor Pulse Rhythm Regular Respiratory Rate 14 Respiratory Depth Normal Normal Blood Pressure Blood Pressure Mean Pulse Oximetry 94 90 Oxygen Delivery Method Room Air Room Air Sepsis Recent Fever Within 48 Hours Yes Sepsis New/Unexplained Change in Mental Status N/A Sepsis Action Taken by Nursing No Action Required 05/21/22 18:37 05/21/22 18:40 05/21/22 18:50 Temperature Temperature Source Pulse Rate 100 H 113 H 104 H Pulse Rate from SpO2 Sensor 100 H 113 H 104 H Pulse Rhythm Respiratory Rate 14 22 16 Respiratory Depth Blood Pressure Blood Pressure Mean Pulse Oximetry 97 99 99 Oxygen Delivery Method Sepsis Recent Fever Within 48 Hours Sepsis New/Unexplained Change in Mental Status Sepsis Action Taken by Nursing 05/21/22 19:30 05/21/22 19:30 05/21/22 19:40 Temperature Temperature Source Pulse Rate 141 H 149 H Pulse Rate from SpO2 Sensor 136 H 149 H Pulse Rhythm Respiratory Rate 21 14 Respiratory Depth Blood Pressure 174/139 H Blood Pressure Mean 150 Pulse Oximetry 92 92 Oxygen Delivery Method Sepsis Recent Fever Within 48 Hours Sepsis New/Unexplained Change in Mental Status Sepsis Action Taken by Nursing 05/21/22 19:50 05/21/22 20:00 05/21/22 20:10 Temperature Temperature Source Pulse Rate 148 H 142 H 142 H Pulse Rate from SpO2 Sensor 147 H 142 H 142 H Pulse Rhythm Respiratory Rate 25 H 20 18 Respiratory Depth Blood Pressure Blood Pressure Mean Pulse Oximetry 91 91 93 Oxygen Delivery Method Sepsis Recent Fever Within 48 Hours Sepsis New/Unexplained Change in Mental Status Sepsis Action Taken by Nursing 05/21/22 20:20 05/21/22 20:30 05/21/22 20:40 Temperature Temperature Source Pulse Rate 142 H 143 H 140 H Pulse Rate from SpO2 Sensor 143 H 146 H 139 H Pulse Rhythm Respiratory Rate 19 32 H 21 Respiratory Depth Blood Pressure Blood Pressure Mean Pulse Oximetry 91 93 92 Oxygen Delivery Method Sepsis Recent Fever Within 48 Hours Sepsis New/Unexplained Change in Mental Status Sepsis Action Taken by Intermediate Medications Current Medication List: was personally reviewed by me Laboratory Data Attestation: I reviewed the patient's lab results. Result diagrams: 05/21/22 18:32 05/21/22 18:32 Lab Results 05/21/22 05/21/22 05/21/22 Range/Units 18:32 18:32 18:32 WBC (4.8-10.8) K/ul RBC (3.93-5.22) M/uL Hgb (12.0-16.0) g/dl Hct (34.1-44.9) % MCV (80.0-100.0) fL MCH (25.0-34.0) pg MCHC (32.0-36.0) g/dL RDW Std Deviation (36.4-46.3) fL RDW Coeff of Ethel (11.5-14.5) % Plt Count (130-400) K/uL MPV (9.4-12.3) fL Immature Gran % (Auto) % Neut % (Auto) % Lymph % (Auto) % [place] % (Auto) % Eos % (Auto) % Baso % (Auto) % Neut # (Auto) (1.4-6.5) K/uL Lymph # (Auto) (1.2-3.4) K/uL [place] # (Auto) (0.24-0.82) K/uL Eos # (Auto) (0-0.50) K/uL Baso # (Auto) (0-0.2) K/uL Immature Gran # (Auto) (0.00-0.02) K/uL PT 10.4 (9.0-12.0) Seconds INR 1.0 (0.9-1.1) APTT 25.9 (21.0-31.0) Seconds PTT Ratio 0.9 Sodium 138 (136-145) mmol/L Potassium 4.2 (3.5-5.1) mmol/L Chloride 95 L (98-107) mmol/L Carbon Dioxide 23 (21-32) mmol/L Anion Gap 20 H (3-11) BUN 10 (6-23) mg/dl Creatinine 0.66 (0.6-1.2) mg/dl Est Cr Clr Drug Dosing Not Reportable Est GFR ( Amer) 114.5 ml/min Est GFR (Non-Af Amer) 98.8 ml/min BUN/Creatinine Ratio 15.2 (10-20) Glucose 246 H (70-99(Fasting)) mg/dl Lactate 5.7 H* (0.4-2.0) mmol/L Calcium 9.4 (8.5-10.1) mg/dl Magnesium 2.3 (1.7-2.4) mg/dl Total Bilirubin 0.5 (0.2-1.0) mg/dl AST 18 (13-39) U/L ALT 22 (7-52) U/L Alkaline Phosphatase 146 H (34-104) U/L Ammonia (18-72) umol/L Total Creatine Kinase 50 (26-192) U/L Troponin I High Sens 5.6 (0-14) pg/ml C-Reactive Protein (0-0.5) mg/dl Total Protein 8.1 (6.0-8.3) gm/dl Albumin 4.6 (3.4-5.0) gm/dl Globulin 3.5 (2.5-4.0) gm/dl Albumin/Globulin Ratio 1.3 (0.9-2) Procalcitonin (0-0.5) ng/ml TSH (0.300-4.500) uIu/ml Salicylates (3.0-30) mg/dl Acetaminophen (10-30) ug/ml Ethyl Alcohol mg/dL (<10.0) mg/dl SARS-CoV-2 (PCR) (Negative) 05/21/22 05/21/22 05/21/22 Range/Units 18:32 18:32 18:32 WBC 11.31 H (4.8-10.8) K/ul RBC 5.47 H (3.93-5.22) M/uL Hgb 16.4 H (12.0-16.0) g/dl Hct 47.0 H (34.1-44.9) % MCV 85.9 (80.0-100.0) fL MCH 30.0 (25.0-34.0) pg MCHC 34.9 (32.0-36.0) g/dL RDW Std Deviation 40.7 (36.4-46.3) fL RDW Coeff of Ethel 13.0 (11.5-14.5) % Plt Count 293 (130-400) K/uL MPV 9.9 (9.4-12.3) fL Immature Gran % (Auto) 0.3 % Neut % (Auto) 63.2 % Lymph % (Auto) 29.5 % [place] % (Auto) 3.9 % Eos % (Auto) 1.8 % Baso % (Auto) 1.3 % Neut # (Auto) 7.15 H (1.4-6.5) K/uL Lymph # (Auto) 3.34 (1.2-3.4) K/uL [place] # (Auto) 0.44 (0.24-0.82) K/uL Eos # (Auto) 0.20 (0-0.50) K/uL Baso # (Auto) 0.15 (0-0.2) K/uL Immature Gran # (Auto) 0.03 H (0.00-0.02) K/uL PT (9.0-12.0) Seconds INR (0.9-1.1) APTT (21.0-31.0) Seconds PTT Ratio Sodium (136-145) mmol/L Potassium (3.5-5.1) mmol/L Chloride (98-107) mmol/L Carbon Dioxide (21-32) mmol/L Anion Gap (3-11) BUN (6-23) mg/dl Creatinine (0.6-1.2) mg/dl Est Cr Clr Drug Dosing Est GFR ( Amer) ml/min Est GFR (Non-Af Amer) ml/min BUN/Creatinine Ratio (10-20) Glucose (70-99(Fasting)) mg/dl Lactate (0.4-2.0) mmol/L Calcium (8.5-10.1) mg/dl Magnesium (1.7-2.4) mg/dl Total Bilirubin (0.2-1.0) mg/dl AST (13-39) U/L ALT (7-52) U/L Alkaline Phosphatase (34-104) U/L Ammonia (18-72) umol/L Total Creatine Kinase (26-192) U/L Troponin I High Sens (0-14) pg/ml C-Reactive Protein (0-0.5) mg/dl Total Protein (6.0-8.3) gm/dl Albumin (3.4-5.0) gm/dl Globulin (2.5-4.0) gm/dl Albumin/Globulin Ratio (0.9-2) Procalcitonin (0-0.5) ng/ml TSH (0.300-4.500) uIu/ml Salicylates < 3.0 L (3.0-30) mg/dl Acetaminophen < 3 L (10-30) ug/ml Ethyl Alcohol mg/dL 309.4 H (<10.0) mg/dl SARS-CoV-2 (PCR) (Negative) 05/21/22 05/21/22 05/21/22 Range/Units 18:32 18:32 18:32 WBC (4.8-10.8) K/ul RBC (3.93-5.22) M/uL Hgb (12.0-16.0) g/dl Hct (34.1-44.9) % MCV (80.0-100.0) fL MCH (25.0-34.0) pg MCHC (32.0-36.0) g/dL RDW Std Deviation (36.4-46.3) fL RDW Coeff of Ethel (11.5-14.5) % Plt Count (130-400) K/uL MPV (9.4-12.3) fL Immature Gran % (Auto) % Neut % (Auto) % Lymph % (Auto) % [place] % (Auto) % Eos % (Auto) % Baso % (Auto) % Neut # (Auto) (1.4-6.5) K/uL Lymph # (Auto) (1.2-3.4) K/uL [place] # (Auto) (0.24-0.82) K/uL Eos # (Auto) (0-0.50) K/uL Baso # (Auto) (0-0.2) K/uL Immature Gran # (Auto) (0.00-0.02) K/uL PT (9.0-12.0) Seconds INR (0.9-1.1) APTT (21.0-31.0) Seconds PTT Ratio Sodium (136-145) mmol/L Potassium (3.5-5.1) mmol/L Chloride (98-107) mmol/L Carbon Dioxide (21-32) mmol/L Anion Gap (3-11) BUN (6-23) mg/dl Creatinine (0.6-1.2) mg/dl Est Cr Clr Drug Dosing Est GFR ( Amer) ml/min Est GFR (Non-Af Amer) ml/min BUN/Creatinine Ratio (10-20) Glucose (70-99(Fasting)) mg/dl Lactate (0.4-2.0) mmol/L Calcium (8.5-10.1) mg/dl Magnesium (1.7-2.4) mg/dl Total Bilirubin (0.2-1.0) mg/dl AST (13-39) U/L ALT (7-52) U/L Alkaline Phosphatase (34-104) U/L Ammonia (18-72) umol/L Total Creatine Kinase (26-192) U/L Troponin I High Sens (0-14) pg/ml C-Reactive Protein < 0.50 (0-0.5) mg/dl Total Protein (6.0-8.3) gm/dl Albumin (3.4-5.0) gm/dl Globulin (2.5-4.0) gm/dl Albumin/Globulin Ratio (0.9-2) Procalcitonin < 0.05 (0-0.5) ng/ml TSH 1.661 (0.300-4.500) uIu/ml Salicylates (3.0-30) mg/dl Acetaminophen (10-30) ug/ml Ethyl Alcohol mg/dL (<10.0) mg/dl SARS-CoV-2 (PCR) (Negative) 05/21/22 05/21/22 05/21/22 Range/Units 18:34 20:11 20:14 WBC (4.8-10.8) K/ul RBC (3.93-5.22) M/uL Hgb (12.0-16.0) g/dl Hct (34.1-44.9) % MCV (80.0-100.0) fL MCH (25.0-34.0) pg MCHC (32.0-36.0) g/dL RDW Std Deviation (36.4-46.3) fL RDW Coeff of Ethel (11.5-14.5) % Plt Count (130-400) K/uL MPV (9.4-12.3) fL Immature Gran % (Auto) % Neut % (Auto) % Lymph % (Auto) % [place] % (Auto) % Eos % (Auto) % Baso % (Auto) % Neut # (Auto) (1.4-6.5) K/uL Lymph # (Auto) (1.2-3.4) K/uL [place] # (Auto) (0.24-0.82) K/uL Eos # (Auto) (0-0.50) K/uL Baso # (Auto) (0-0.2) K/uL Immature Gran # (Auto) (0.00-0.02) K/uL PT (9.0-12.0) Seconds INR (0.9-1.1) APTT (21.0-31.0) Seconds PTT Ratio Sodium (136-145) mmol/L Potassium (3.5-5.1) mmol/L Chloride (98-107) mmol/L Carbon Dioxide (21-32) mmol/L Anion Gap (3-11) BUN (6-23) mg/dl Creatinine (0.6-1.2) mg/dl Est Cr Clr Drug Dosing Est GFR ( Amer) ml/min Est GFR (Non-Af Amer) ml/min BUN/Creatinine Ratio (10-20) Glucose (70-99(Fasting)) mg/dl Lactate 8.3 H* (0.4-2.0) mmol/L Calcium (8.5-10.1) mg/dl Magnesium (1.7-2.4) mg/dl Total Bilirubin (0.2-1.0) mg/dl AST (13-39) U/L ALT (7-52) U/L Alkaline Phosphatase (34-104) U/L Ammonia 24.0 (18-72) umol/L Total Creatine Kinase (26-192) U/L Troponin I High Sens (0-14) pg/ml C-Reactive Protein (0-0.5) mg/dl Total Protein (6.0-8.3) gm/dl Albumin (3.4-5.0) gm/dl Globulin (2.5-4.0) gm/dl Albumin/Globulin Ratio (0.9-2) Procalcitonin (0-0.5) ng/ml TSH (0.300-4.500) uIu/ml Salicylates (3.0-30) mg/dl Acetaminophen (10-30) ug/ml Ethyl Alcohol mg/dL (<10.0) mg/dl SARS-CoV-2 (PCR) NEGATIVE (Negative) Administered Medications Sodium Chloride (Nss 1000ml) 1,000 mls @ 125 mls/hr IV .Q8H ARPIT Stop: 06/20/22 22:24 Last Admin: 05/21/22 23:09 Dose: 125 mls/hr Documented By: SCOTT Insulin Aspart (Insulin Aspart Per Unit) 0 units SC ACHS ARPIT Stop: 06/20/22 22:24 Last Admin: 05/21/22 23:03 Dose: Not Given Documented By: BPY Insulin Glargine (Lantus Per Unit Charge) 12 units SQ BID ARPIT Stop: 06/20/22 22:24 Last Admin: 05/21/22 23:07 Dose: 12 units Documented By: SCOTT Co-signed By: ANITA Discontinued Medications Sodium Chloride (Nss 1000ml) 500 mls @ 999 mls/hr IV .Q31M ONE Stop: 05/21/22 18:26 Last Infusion: 05/22/22 00:20 Dose: 0 mls/hr Documented By: Admin: 05/21/22 21:07 Dose: 999 mls/hr Documented By: ANN Multivitamins 10 ml/ Thiamine HCl 100 mg/ Folic Acid 1 mg/Sodium Chloride 1,011.2 mls @ 1,011.2 mls/hr IV .Q1H ONE Stop: 05/21/22 18:55 Last Infusion: 05/21/22 21:14 Dose: 0 mls/hr Documented By: Admin: 05/21/22 18:24 Dose: 1,011.2 mls/hr Documented By: ANN Promethazine HCl (Phenergan) 6.25 mg in 50.25 mls @ 201 mls/hr IV NOW STA Stop: 05/21/22 18:28 Last Infusion: 05/21/22 19:03 Dose: 0 mls/hr Documented By: Admin: 05/21/22 18:25 Dose: 201 mls/hr Documented By: ANN Promethazine HCl (Phenergan) 6.25 mg in 50.25 mls @ 201 mls/hr IV NOW STA Stop: 05/21/22 19:34 Last Infusion: 05/21/22 21:14 Dose: 0 mls/hr Documented By: Admin: 05/21/22 19:33 Dose: 201 mls/hr Documented By: ANN Cefepime HCl (Maxipime) 2,000 mg in 20 mls @ 5 mls/min IV NOW STA; Protocol Stop: 05/21/22 21:02 Last Admin: 05/21/22 21:13 Dose: 5 mls/min Documented By: ANN Sodium Chloride (Nss 1000ml) 500 mls @ 999 mls/hr IV .Q31M ONE Stop: 05/21/22 21:30 Last Infusion: 05/22/22 00:20 Dose: 0 mls/hr Documented By: Admin: 05/21/22 21:13 Dose: 999 mls/hr Documented By: ANN Lorazepam (Lorazepam 2 Mg/1 Ml Vial) 0.5 mg IV NOW STA; Protocol Stop: 05/21/22 19:21 Last Admin: 05/21/22 19:32 Dose: 0.5 mg Documented By: ANN Lorazepam (Lorazepam 2 Mg/1 Ml Vial) 0.5 mg IV NOW STA; Protocol Stop: 05/21/22 20:32 Last Admin: 05/21/22 21:12 Dose: 0.5 mg Documented By: ANN Lorazepam (Lorazepam 2 Mg/1 Ml Vial) 1 mg IV NOW STA; Protocol Stop: 05/21/22 21:49 Last Admin: 05/21/22 21:57 Dose: 1 mg Documented By: ANN Ondansetron HCl (Ondansetron Inj 2 Mg/Ml 2 Ml Vial) 4 mg IV NOW STA Stop: 05/21/22 18:15 Last Admin: 05/21/22 18:25 Dose: 4 mg Documented By: ANN Ondansetron HCl (Ondansetron Inj 2 Mg/Ml 2 Ml Vial) 4 mg IV NOW STA Stop: 05/21/22 19:21 Last Admin: 05/21/22 21:12 Dose: 4 mg Documented By: ANN Imaging Data Radiologist's Impression: Head CT 05/21/22 17:56 CT head/brain wo con CLINICAL HISTORY: 56 years-old Female with confusion. Acutely altered bowel status TECHNIQUE: Multiple axial CT images of the head were obtained without contrast. A dose lowering technique was utilized adhering to the principles of ALARA. CT DOSE: 537.48 mGy.cm COMPARISON: Head CT 10/25/2020 FINDINGS: No acute intracranial hemorrhage, midline shift, intracranial mass, hyd rocephalus, territorial ischemia or abnormal extra-axial collection. Mild involutional changes. Cerebral vascular calcifications. The calvarium is intact. The paranasal sinuses, mastoid air cells, and middle ear cavities are clear. IMPRESSION: No acute intracranial abnormality. ACT 112: Negative or not required by law. The above report was generated using voice recognition software. It may contain grammatical, syntax or spelling errors. Electronically signed by: Doug Rich M.D. 05/21/2022 7:14 PM Chest X-Ray 05/21/22 17:57 XR chest 1V portable HISTORY: 56 years-old Female weakness acute weakness COMPARISON: Chest radiograph 10/25/2020 TECHNIQUE: Portable AP view of the chest FINDINGS: Cardiomediastinal and hilar silhouettes are within normal limits. No pneumothorax, pleural effusion, airspace consolidation or overt pulmonary edema. Suggestion of mild emphysema. Healed chronic left-sided rib fractures. IMPRESSION: No acute process. ACT 112: Negative or not required by law. The above report was generated using voice recognition software. It may contain grammatical, syntax or spelling errors. Electronically signed by: Doug Rich M.D. 05/21/2022 7:15 PM Discharge Plan Visit Data Chief Complaint: Alcohol Intoxication Stated Complaint: alcohol intoxication ED Provider: Lauro Porter Discharge Problem: Alcohol abuse, Alcohol intoxication, Elevated lactic acid level, Leukocytosis Patient Disposition: Admitted As Inpatient Condition: Serious Discharge Instructions Interventions: ED Discharge Assessment Last Done: 05/21/22 22:31
[2022-05-21] MEDS ORDERED: PROMETHAZINE 6.25 MG/50.25 ML BAG IV STA ×2 (18:14→19:20)
[2022-05-21] MEDS ORDERED: ONDANSETRON INJ 2 MG/ML 2 ML VIAL IV STA ×2 (18:14→19:20)
[2022-05-21 18:53] LABS: Basophils # (auto) 0.15 K/uL (0-0.2); Basophils % (auto) 1.3 %; Eosinophils % (auto) 1.8 %; Hemoglobin 16.4 g/dl (12.0-16.0); Immature Granulocytes # (auto) 0.03 K/uL (0.00-0.02); Immature Granulocytes % (auto) 0.3 %; Lymphocytes # (auto) 3.34 K/uL (1.2-3.4); Lymphocytes % (auto) 29.5 %; Mean Corpuscular Hgb Conc 34.9 g/dL (32.0-36.0); Mean Corpuscular Volume 85.9 fL (80.0-100.0); Mean Platelet Volume 9.9 fL (9.4-12.3); Monocytes # (auto) 0.44 K/uL (0.24-0.82); Monocytes % (auto) 3.9 %; Neutrophils # (auto) 7.15 K/uL (1.4-6.5); Neutrophils % (auto) 63.2 %; Platelet Count 293 K/uL (130-400); RDW Standard Deviation 40.7 fL (36.4-46.3); Red Blood Count 5.47 M/uL (3.93-5.22); White Blood Count 11.31 K/ul (4.8-10.8)
[2022-05-21 19:10] LABS: Partial Thromboplastin Ratio 0.9; Partial Thromboplastin Time 25.9 Seconds (21.0-31.0); Prothrombin Time 10.4 Seconds (9.0-12.0)
--- NOTE | 2022-05-21 19:15 | CT Scan Report ---
CT head/brain wo con CLINICAL HISTORY: 56 years-old Female with confusion. Acutely altered bowel status TECHNIQUE: Multiple axial CT images of the head were obtained without contrast. A dose lowering tech nique was utilized adhering to the principles of ALARA. CT DOSE: 537.48 mGy.cm COMPARISON: Head CT 10/25/2020 FINDINGS: No acute intracranial hemorrhage, midline shift, intracranial mass, hydrocephalus, territorial ischem ia or abnormal extra-axial collection. Mild involutional changes. Cerebral vascular calcifications. The calvarium is intact. The paranasal sinuses, mastoid air cells, and middle ear cavities are clear . IMPRESSION: No acute intracranial abnormality. ACT 112: Negative or not required by law. The above report was generated using voice recognition software. It may contain grammatical, syntax o r spelling errors. Electronically signed by: Doug Rich M.D. 05/21/2022 7:14 PM
--- NOTE | 2022-05-21 19:16 | XRay Report ---
XR chest 1V portable HISTORY: 56 years-old Female weakness acute weakness COMPARISON: Chest radiograph 10/25/2020 TECHNIQUE: Portable AP view of the chest FINDINGS: Cardiomediastinal and hilar silhouettes are within normal limits. No pneumothorax, pleural effusion, airspace consolidation or overt pulmonary edema. Suggestion of mild emphysema. Healed chronic left-si ded rib fractures. IMPRESSION: No acute process. ACT 112: Negative or not required by law. The above report was generated using voice recognition software. It may contain grammatical, syntax o r spelling errors. Electronically signed by: Doug Rich M.D. 05/21/2022 7:15 PM
[2022-05-21] MEDS ORDERED: LORazepam 2 MG/1 ML VIAL IV STA ×3 (19:20→21:48)
[2022-05-21 19:37] LABS: Alanine Aminotransferase 22 U/L (7-52); Albumin Globulin Ratio 1.3 (0.9-2); Albumin Level 4.6 gm/dl (3.4-5.0); Alkaline Phosphatase 146 U/L (34-104); Anion Gap 20 (3-11); Aspartate Aminotransferase 18 U/L (13-39); BUN Creatinine Ratio 15.2 (10-20); Bilirubin,Total 0.5 mg/dl (0.2-1.0); Blood Urea Nitrogen 10 mg/dl (6-23); Calcium 9.4 mg/dl (8.5-10.1); Carbon Dioxide 23 mmol/L (21-32); Chloride 95 mmol/L (98-107); Creatine Kinase 50 U/L (26-192); Est GFR (African American) 114.5 ml/min; Est GFR (Non-African American) 98.8 ml/min; Globulin 3.5 gm/dl (2.5-4.0); Glucose 246 mg/dl (70-99(Fasting)); Magnesium 2.3 mg/dl (1.7-2.4); Potassium 4.2 mmol/L (3.5-5.1); Sodium 138 mmol/L (136-145); Total Protein 8.1 gm/dl (6.0-8.3)
[2022-05-21 19:39] LABS: Troponin I High Sensitivity 5.6 pg/ml (0-14)
[2022-05-21 19:48] LABS: Acetaminophen < 3 ug/ml (10-30); Salicylate < 3.0 mg/dl (3.0-30)
--- NOTE | 2022-05-21 20:12 | History & Physical Report ---
Date of Service May 21, 2022 Assessment & Plan (1) Alcohol intoxication: Plan: 56 yo F with complex PMH including severe alcohol use disorder with multiple relapses from sobriety, multiple episodes of alcohol intoxication and withdrawal, uncontrolled T1DM with neuropathy, LLE osteomyelitis s/p BKA, chronic pancreatitis, exocrine pancreatic insufficiency, liver cirrhosis presenting with altered mental status. Altered mental status -Blood ethanol level 309 on admission, UDS pending, ammonia negative -EKG on admission- sinus tachycardia [address] change or QT prolongation -Head CT negative, CXR negative -AMS likely due to acute alcohol intoxication given pt's history of severe AUD (see 03/31/22 PCP note) and EMS report -NPO, IVF with NSS 125 cc/hr -Thiamine 100 mg IV daily, folic acid 1 mg IV daily ordered -Unknown when pt's last drink was, AWSS protocol initiated -Continue telemetry monitoring -Trend CBC, CMP. Mg ordered for AM -Consider psychiatry consult once AMS improves Elevated lactate -Lactate 5.6 on admission increased to 8.3, mild leukocytosis to 11.3 -Suspect alcohol intoxication contributing to lactate elevation, pt not meeting SIRS/sepsis criteria at this time but given AMS, increasing lactate and complex PMH including uncontrolled T1DM, will treat empirically -Cefepime started in ED, NSS bolus given- continue empiric cefepime treatment -Blood cultures, CRP, procalcitonin pending -Trend lactate, CBC T1DM with neuropathy -Last A1C of 9.4 in 03/2022 -Glucose 246 on admission -Lantus 12u BID, ISS -Holding home gabapentin, duloxetine Cirrhotic liver disease -AST, ALT on admission wnl -Alkaline phosphatase minimally elevated to 146 on admission -Trend CMP Exocrine pancreatic insufficiency -Holding home enzyme replacement Hyperlipidemia -Holding home atorvastatin 20 mg FENGI: NPO, IVF NSS due to AMS Code status: Full DVT ppx: SCDs Isolation: None Dispo: PCU (2) Diabetes type 1, uncontrolled: (3) Liver cirrhosis: (4) Exocrine pancreatic insufficiency: History of Present Illness Chief Complaint: Alcohol intoxication Primary Care Provider: Ana Lilia Madrid MD 56 yo F with complex PMH including severe alcohol use disorder with multiple relapses from sobriety, multiple episodes of alcohol intoxication and withdrawal, uncontrolled T1DM with neuropathy, LLE osteomyelitis s/p BKA, chronic pancreatitis, exocrine pancreatic insufficiency, liver cirrhosis presenting with altered mental status. Pt was brought to ER after mother did not hear from her in some time and called police to perform wellness check. Police found pt sitting in wheelchair with confusion and smelling strongly of urine. Subsequently brought to ED. Upon arrival, pt tachycardic to 110s-120s, stable respiratory status. Initial labs- mild leukocytosis WBC 11.3, anion gap 20, glucose 246, lactate 5.6 -> 8.3. Serum ethanol 309. CBC, BMP otherwise unremarkable. Head CT negative, CXR negative. Pt was given IVF with thiamine/multivitamin/folate, Zofran, Phenergan x2, Ativan 0.5 mg x2. Cefepime started, 1L NSS bolus administered On evaluation, pt tired and minimally interactive. States she feels pain around her amputation site and noticed shaking of her R leg. Denying any chest pain, fever, chills, dyspnea, headache. Allergies Allergy/AdvReac Type Severity Reaction Status Date / Time haloperidol [From Haldol] AdvReac Unknown Unknown Verified 05/21/22 19:01 Home Medications Medication Instructions Recorded Confirmed Type cholecalciferol (vitamin D3) 25 1,000 units PO HS 06/23/19 05/21/22 History mcg (1,000 unit) capsule cyanocobalamin (vitamin B-12) 1,000 mcg PO DAILY 05/10/20 05/21/22 History 1,000 mcg tablet (Vitamin B-12) diphenhydramine HCl 25 mg tablet 25 - 50 mg PO Q6H PRN Allergy 10/25/20 05/21/22 History (Benadryl Allergy) Symptoms fluticasone propionate 50 2 spray intranasal DAILY PRN 10/25/20 05/21/22 History mcg/actuation nasal Allergy Symptoms spray,suspension acetone (urine) test (Ketostix #50 ea 04/12/21 05/21/22 Rx strips) blood-glucose meter 05/21/21 05/21/22 History ascorbic acid (vitamin C) 500 mg 500 mg PO Q OTHER DAY 07/04/21 05/21/22 History tablet (Vitamin C) multivitamin 1 tab PO DAILY 12/24/21 05/21/22 History gabapentin 300 mg capsule 300 mg PO TID #90 caps 04/01/22 05/21/22 Rx atorvastatin 20 mg tablet 20 mg PO QPM #30 tabs 04/10/22 05/21/22 Rx clobetasol 0.05 % scalp solution 1 applic topical DAILY #50 mL 04/22/22 05/21/22 Rx ujmoyo-kiuvnqeu-ndwfghf 1 cap PO TID #90 caps 04/22/22 05/21/22 Rx 6,000-19,000-30,000 unit capsule,delayed rel (Creon) buspirone 15 mg tablet 15 mg PO BID #60 tabs 04/30/22 05/21/22 Rx duloxetine 20 mg capsule,delayed 20 mg PO HS #30 caps 04/30/22 05/21/22 Rx release (Cymbalta) duloxetine 60 mg capsule,delayed 60 mg PO QAM #30 caps 04/30/22 05/21/22 Rx release (Cymbalta) flash glucose sensor (FreeStyle #2 ea 05/08/22 05/21/22 Rx Janny 2 Sensor kit) folic acid 1 mg tablet 1 mg PO DAILY 05/21/22 05/21/22 History insulin aspar prot-insulin aspart 60 unit subcut UD 05/21/22 05/21/22 History 100 unit/mL (70-30) subcutaneous pen (Novolog Mix 70-30FlexPen U-100) Past Med/Surg History Medical History Alcohol withdrawal seizure NOT REPORTED BY PATIENT AT TIME OF PAT CALL - LAST EPISODE OVER A YEAR AGO Aspiration pneumonia Caustic esophageal injury Chronic pancreatitis Cirrhosis of liver "COMPROMISED LIVER" Diabetes type 1, uncontrolled Diabetic peripheral neuropathy associated with type 1 diabetes mellitus Dysesthesia Dyslipidemia Encephalomalacia Exocrine pancreatic insufficiency History of alcohol abuse History of GI bleed Hydrosalpinx PT UNAWARE IPMN (intraductal papillary mucinous neoplasm) Imaging July 2020 follow-up yearly Leukopenia Lipoma NECK Polycystic ovarian syndrome Psoriasis SBO (small bowel obstruction) Resolved Thrombocytopenia Tobacco dependence Vitamin D deficiency Surgical History Amputation of left lower extremity TO APPROX MID CALF History of ankle surgery 02/2019 left ankle ex fix, grade 2 view with MAC 3 and 7.0 ETT History of tooth extraction Family History Uncle Diabetes Mother Breast cancer Sister Breast cancer Father Prostate cancer Other Family history of breast cancer in mother Family history of breast cancer in sister Denies family history of Ovarian cancer Myocardial infarction Colorectal cancer Social History Smoking Status: Current every day smoker Tobacco Type: Cigarettes packs per day: 0.75; Cigarettes Per Day: 15; Second Hand Exposure: No; Hx Alcohol Use: Yes Alcohol type: wine Hx Substance Use: No Preferred Language: Kyrgyz Communication Ability: Effective Visual Impairment: No Limitations Director Of Maintenance Required: No Beliefs That Will Affect Care: None marital status: marital status details: no children Current Living Situation: Alone current occupational status: disabled Feels Safe at Home: Yes Assistive Devices: Prosthesis, Walker and Wheelchair Review of Systems Review of Systems: Per HPI Physical Exam Physical Exam: General: tired-appearing, in mild distress, disheveled, tremulous at times HEENT: NC/AT, PERRLA, moist mucous membranes, anicteric sclerae CV: Tachycardic, regular rhythm, normal S1 and S2, no murmurs Resp: CTAB, unlabored respirations, no crackles or wheezes Abd: soft, nontender, nondistended, no rebound or guarding Neuro: lethargic but alert and oriented x3, no focal motor or sensory deficits Skin: no rashes noted, no erythema, warmth or tenderness over LLE BKA site Psych: deferred MMSE due to mental status Results & Data Results & Data ([facility]) Vital Signs (Past 12 Hours) Vital Signs Temp Pulse Resp Pulse Ox O2 Del Method 05/21/22 17:57 110 H 90 Room Air 05/21/22 18:14 36.7 C 120 H 14 94 Room Air Supervising Physician Co-Signing Physician Notes Attending addendum: I have physically seen this patient, have supervised the medical residents activities, and agree with the H&P unless as otherwise noted. Assessment and Plan: Alcohol intoxication/alcoholism/withdrawal- Alcohol level 309 on admission Urine drug screen pending CT head negative Mental status alteration likely associated with alcohol intoxication Continue banana bag as ordered Tomorrow start thiamine 100 mg p.o. daily, folic acid 1 mg p.o. daily and Nephrocaps 1 p.o. twice daily Alcohol withdrawal protocol with IV Ativan Diabetes mellitus- Continue Lantus 12 units subcu twice daily with coverage scale Check hemoglobin A1c Exocrine pancreatic insufficiency- Holding enzyme replacement well oral intake is down in hospital This treatment is quitting alcohol use Hyperlipidemia Hold atorvastatin for now Check a fasting lipid panel Remaining orders and notations as noted Resident Activity Tracking Resident Involvement: Resident Care Provided Care Provided: Adult Hospital Medicine (1) Liver cirrhosis Ascites presence: without ascites Hepatic cirrhosis type: alcoholic cirrhosis Qualified Code(s): K70.30 - Alcoholic cirrhosis of liver without ascites
[2022-05-21] MEDS ORDERED: CEFEPIME 2,000 MG/20 ML VIAL IV STA (20:59)
[2022-05-21] MEDS ORDERED: Ativan IV Alcohol Withdrawal--Active Protocol IV PRN ×2 (21:59→22:25)
[2022-05-21] MEDS ORDERED: LORazepam 3 MG in SYRINGE 1.5 ML IV PRN ×2 (21:59→22:25)
[2022-05-21] MEDS ORDERED: LORazepam 1 MG in SYRINGE 0.5 ML IV PRN ×2 (21:59→22:25)
[2022-05-21] MEDS ORDERED: LORazepam 2 MG in SYRINGE 1 ML IV PRN ×2 (21:59→22:25)
[2022-05-21] MEDS ORDERED: DEXTROSE 50% 50 ML SYRINGE IV PRN (22:25)
[2022-05-21] MEDS ORDERED: GLUCOSE 40% GEL 15 GM TUBE PO PRN (22:25)
[2022-05-21] MEDS ORDERED: GLUCAGON FOR INJ 1 MG VIAL SQ PRN (22:25)
[2022-05-21] MEDS ORDERED: CARBOHYDRATES FOR HYPOGLYCEMIA PO PRN (22:25)
[2022-05-21] MEDS ORDERED: GLUCOSE 10 TAB/TUBE PO PRN (22:25)
[2022-05-21 22:53] LABS: Appearance Urine Clear (Clear); Bacteria Urine Automated Negative (Negative); Bilirubin Urine Negative (Negative); Blood Urine Negative (Negative); Color Urine Yellow; Epithelial Cell Urine Auto 0-5 /lpf (0-5); Glucose Urine UA Trace (Negative); Ketones Urine Trace (Negative); Leukocyte Esterase Urine Negative (Negative); Nitrite Urine Negative (Negative); Protein Urine 2+ (Negative); RBC Urine Automated 0-4 /hpf (0-4); Specific Gravity Urine 1.011 (1.000-1.030); Urobilinogen Urine Negative (Negative); WBC Urine Automated 0 /hpf (0-5); pH Urine 5.5 (4.5-7.5)
[2022-05-21] MEDS: INSULIN ASPART PER UNIT SC SCH (23:03)
[2022-05-21] MEDS: LANTUS PER UNIT CHARGE SQ SCH (23:07)
[2022-05-21] MEDS: SODIUM CHLORIDE 0.9% 1000ML 1,000 ML IV SCH (23:09)
[2022-05-21 23:37] LABS: Amphetamines+Metham, Urine Neg (Neg); Barbiturates, Urine Neg (Neg); Benzodiazepine, Urine Neg (Neg); Cocaine, Urine Neg (Neg); MDMA (Ecstacy), Urine Neg (Neg); Methadone, Urine Neg (Neg); Opiate, Urine Neg (Neg); Phencyclidine, Urine Neg (Neg)
[2022-05-22] MEDS: ONDANSETRON INJ 2 MG/ML 2 ML VIAL IV PRN ×2 (01:39→07:46)
[2022-05-22 06:11] LABS: Hematocrit (blood only) 36.5 % (34.1-44.9); Hemoglobin 12.6 g/dl (12.0-16.0); Mean Corpuscular Hemoglobin 29.8 pg (25.0-34.0); Mean Corpuscular Hgb Conc 34.5 g/dL (32.0-36.0); Mean Corpuscular Volume 86.3 fL (80.0-100.0); Mean Platelet Volume 10.1 fL (9.4-12.3); Platelet Count 202 K/uL (130-400); RDW Standard Deviation 40.8 fL (36.4-46.3); Red Blood Count 4.23 M/uL (3.93-5.22); White Blood Count 10.23 K/ul (4.8-10.8)
[2022-05-22 06:23] LABS: Albumin Globulin Ratio 1.4 (0.9-2); Albumin Level 3.7 gm/dl (3.4-5.0); BUN Creatinine Ratio 17.6 (10-20); Bilirubin,Total 1.2 mg/dl (0.2-1.0); Calcium 8.7 mg/dl (8.5-10.1); Creatinine Clr Calc Pharmacy 79.5 ml/min; Est GFR (Non-African American) 90.6 ml/min; Globulin 2.6 gm/dl (2.5-4.0); Magnesium 1.9 mg/dl (1.7-2.4); Total Protein 6.3 gm/dl (6.0-8.3)
[2022-05-22] MEDS: SODIUM CHLORIDE 0.9% 1000ML 1,000 ML IV SCH ×2 (07:06→12:52)
[2022-05-22] MEDS: INSULIN ASPART PER UNIT SC SCH ×2 (07:13→10:55)
[2022-05-22] MEDS: LANTUS PER UNIT CHARGE SQ SCH (07:46)
[2022-05-22] MEDS ORDERED: THIAMINE HCL 100 MG in SYRINGE 9 ML IV SCH (09:00)
[2022-05-22] MEDS ORDERED: FOLIC ACID 1 MG in SYRINGE 9.8 ML IV SCH (09:00)
--- NOTE | 2022-05-22 13:44 | Electrocardiogram Report ---
Test Reason : Blood Pressure : / mmHG Vent. Rate : 106 BPM Atrial Rate : 106 BPM P-R Int : 158 ms QRS Dur : 068 ms QT Int : 346 ms P-R-T Axes : 068 062 072 degrees QTc Int : 459 ms Sinus tachycardia Otherwise normal ECG When compared with ECG of 25-OCT-2020 16:59, T wave amplitude has decreased in Anterior leads Confirmed by Pete Dimas ([id number]) on 05/22/2022 1:44:30 PM Referred By: REFERRED SELF Confirmed By:Pete Dimas
[2022-05-22] MEDS ORDERED: GABAPENTIN 300 MG CAP PO SCH (14:00)
--- NOTE | 2022-05-22 14:56 | Psychiatric Consultation ---
Date of Consultation May 22, 2022 Impression / Recommendations Impression 56 yo female with multiple medicatl conditions, long hx of ETOH abuse/dependence, hx of withdrawal delirium/seizures. Presented with ALICE 309 and is being managed for withdrawal. (1) Alcohol intoxication: Plan patient is declining therapy or rehab services confirmed with Dr. Savage that no other self-harm concern re: consult I confirmed there is no 302 petition or warrant on her chart so as there is not evidence of psychosis or charan on exam that is interfering with her decision making I do not see grounds for a warrant if she would want to leave AMA as [place] mental health law does not allow for commiment for substance abuse treatment. Psych History Identifying Data 56 yo female from [place], hx of visits to [facility] for alcohol dependence/detox, brought to [facility] after wellness check. Chief Complaint "My mom overreacts, I had 2 glasses of wine." History of Present Illness Reportedly police went to home and found pt sitting in wheelchair with confusion and smelling strongly of urine. On arrival to ED w/u for AMS was positive mainly for ALICE 309. Patient admitted to the ICU. BP and P improving, AMS clearing. She denies anxiety or depression, minimizes drinking of course. 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 She is in fact focussed on her cat. Note: past psych hx significant for inpatient in 2016, has seen [facility] and [facility]ais[facility] in the past. She has been to rehab at least 3 times. main psych meds have been duloxetine and buspar. gabapentin is for non psych indication. family hx: mother has a hx of alcoholism and was emotionally unavailable to patient grewing up. Allergies Allergy/AdvReac Type Severity Reaction Status Date / Time haloperidol [From Haldol] AdvReac Unknown Unknown Verified 05/21/22 19:01 Home Medications Medication Instructions Recorded Confirmed Type cholecalciferol (vitamin D3) 25 1,000 units PO HS 06/23/19 05/21/22 History mcg (1,000 unit) capsule cyanocobalamin (vitamin B-12) 1,000 mcg PO DAILY 05/10/20 05/21/22 History 1,000 mcg tablet (Vitamin B-12) diphenhydramine HCl 25 mg tablet 25 - 50 mg PO Q6H PRN Allergy 10/25/20 05/21/22 History (Benadryl Allergy) Symptoms fluticasone propionate 50 2 spray intranasal DAILY PRN 10/25/20 05/21/22 History mcg/actuation nasal Allergy Symptoms spray,suspension acetone (urine) test (Ketostix #50 ea 04/12/21 05/21/22 Rx strips) blood-glucose meter 05/21/21 05/21/22 History ascorbic acid (vitamin C) 500 mg 500 mg PO Q OTHER DAY 07/04/21 05/21/22 History tablet (Vitamin C) multivitamin 1 tab PO DAILY 12/24/21 05/21/22 History gabapentin 300 mg capsule 300 mg PO TID #90 caps 04/01/22 05/21/22 Rx atorvastatin 20 mg tablet 20 mg PO QPM #30 tabs 04/10/22 05/21/22 Rx clobetasol 0.05 % scalp solution 1 applic topical DAILY #50 mL 04/22/22 05/21/22 Rx qjcwnu-efpxhysk-pngngen 1 cap PO TID #90 caps 04/22/22 05/21/22 Rx 6,000-19,000-30,000 unit capsule,delayed rel (Creon) buspirone 15 mg tablet 15 mg PO BID #60 tabs 04/30/22 05/21/22 Rx duloxetine 20 mg capsule,delayed 20 mg PO HS #30 caps 04/30/22 05/21/22 Rx release (Cymbalta) duloxetine 60 mg capsule,delayed 60 mg PO QAM #30 caps 04/30/22 05/21/22 Rx release (Cymbalta) flash glucose sensor (FreeStyle #2 ea 05/08/22 05/21/22 Rx Janny 2 Sensor kit) folic acid 1 mg tablet 1 mg PO DAILY 05/21/22 05/21/22 History insulin aspar prot-insulin aspart 60 unit subcut UD 05/21/22 05/21/22 History 100 unit/mL (70-30) subcutaneous pen (Novolog Mix 70-30FlexPen U-100) Personal History Beliefs That Will Affect Care: None Patient History Medical History Alcohol withdrawal seizure NOT REPORTED BY PATIENT AT TIME OF PAT CALL - LAST EPISODE OVER A YEAR AGO Aspiration pneumonia Caustic esophageal injury Chronic pancreatitis Cirrhosis of liver "COMPROMISED LIVER" Diabetes type 1, uncontrolled Diabetic peripheral neuropathy associated with type 1 diabetes mellitus Dysesthesia Dyslipidemia Encephalomalacia Exocrine pancreatic insufficiency History of alcohol abuse History of GI bleed Hydrosalpinx PT UNAWARE IPMN (intraductal papillary mucinous neoplasm) Imaging July 2020 follow-up yearly Leukopenia Lipoma NECK Polycystic ovarian syndrome Psoriasis SBO (small bowel obstruction) Resolved Thrombocytopenia Tobacco dependence Vitamin D deficiency Surgical History Amputation of left lower extremity TO APPROX MID CALF History of ankle surgery 02/2019 left ankle ex fix, grade 2 view with MAC 3 and 7.0 ETT History of tooth extraction Family History Uncle Diabetes Mother Breast cancer Sister Breast cancer Father Prostate cancer Other Family history of breast cancer in mother Family history of breast cancer in sister Denies family history of Ovarian cancer Myocardial infarction Colorectal cancer Social History Smoking Status: Current every day smoker Tobacco Type: Cigarettes packs per day: 0.75; Cigarettes Per Day: 15; Second Hand Exposure: No; Hx Alcohol Use: Yes Alcohol type: wine Hx Substance Use: No Preferred Language: Telugu Communication Ability: Effective Visual Impairment: No 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 Beliefs That Will Affect Care: None marital status: marital status details: no children Current Living Situation: Alone current occupational status: disabled Feels Safe at Home: Yes Assistive Devices: Prosthesis, Walker and Wheelchair Physical Exam Psychiatric: Orientation: alert Apperance: appropriately groomed Eye Contact: good eye contact Motor Behavior: no abnormal motor movements Speech: normal rate/rhythm/volume of speech Affect: euthymic affect Mood: no depressed mood Thought Process: goal directed thought process Thought Content: reality based without delusions Suicidal Thoughts: denies suicidal thoughts Homicidal Thoughts: denies homicidal thoughts Hallucinations: no auditory hallucinations and no visual hallucinations Cognition: attention grossly intact and language grossly intact Estimated Intelligence: consistent with education level Insight: + limited insight Judgement: + limited judgement Vital Signs (Past 24 Hours): Last Vital Signs Temp 37.2 C 05/22/22 14:37 Pulse 90 05/22/22 14:37 Resp 16 05/22/22 14:37 BP 140/89 05/22/22 14:37 Pulse Ox 97 05/22/22 14:37 O2 Del Method 05/22/22 08:00 Review of Systems All systems reviewed & are unremarkable except as noted in HPI & below Results & Data (PSY) Laboratory Results 05/22/22 05/22/22 05/22/22 Range/Units 10:48 07:44 05:18 WBC (4.8-10.8) K/ul RBC (3.93-5.22) M/uL Hgb (12.0-16.0) g/dl Hct (34.1-44.9) % MCV (80.0-100.0) fL MCH (25.0-34.0) pg MCHC (32.0-36.0) g/dL RDW Std Deviation (36.4-46.3) fL RDW Coeff of Ethel (11.5-14.5) % Plt Count (130-400) K/uL MPV (9.4-12.3) fL Immature Gran % (Auto) % Neut % (Auto) % Lymph % (Auto) % [place] % (Auto) % Eos % (Auto) % Baso % (Auto) % Neut # (Auto) (1.4-6.5) K/uL Lymph # (Auto) (1.2-3.4) K/uL [place] # (Auto) (0.24-0.82) K/uL Eos # (Auto) (0-0.50) K/uL Baso # (Auto) (0-0.2) K/uL Immature Gran # (Auto) (0.00-0.02) K/uL PT (9.0-12.0) Seconds INR (0.9-1.1) APTT (21.0-31.0) Seconds PTT Ratio Sodium 141 (136-145) mmol/L Potassium 4.0 (3.5-5.1) mmol/L Chloride 104 (98-107) mmol/L Carbon Dioxide 28 (21-32) mmol/L Anion Gap 9 (3-11) BUN 13 (6-23) mg/dl Creatinine 0.74 (0.6-1.2) mg/dl Est Cr Clr Drug Dosing 79.5 Est GFR ( Amer) 105.0 ml/min Est GFR (Non-Af Amer) 90.6 ml/min BUN/Creatinine Ratio 17.6 (10-20) Glucose 159 H (70-99(Fasting)) mg/dl POC Glucose 267 H (70-99) mg/dl Lactate 1.1 (0.4-2.0) mmol/L Calcium 8.7 (8.5-10.1) mg/dl Magnesium 1.9 (1.7-2.4) mg/dl Total Bilirubin 1.2 H D (0.2-1.0) mg/dl AST 24 (13-39) U/L ALT 20 (7-52) U/L Alkaline Phosphatase 109 H (34-104) U/L Ammonia (18-72) umol/L Total Creatine Kinase (26-192) U/L Troponin I High Sens (0-14) pg/ml C-Reactive Protein (0-0.5) mg/dl Total Protein 6.3 D (6.0-8.3) gm/dl Albumin 3.7 (3.4-5.0) gm/dl Globulin 2.6 (2.5-4.0) gm/dl Albumin/Globulin Ratio 1.4 (0.9-2) Procalcitonin (0-0.5) ng/ml TSH (0.300-4.500) uIu/ml Urine Color Urine Appearance (Clear) Urine pH (4.5-7.5) Ur Specific [place] (1.000-1.030) Urine Protein (Negative) Urine Glucose (UA) (Negative) Urine Ketones (Negative) Urine Blood (Negative) Urine Nitrite (Negative) Urine Bilirubin (Negative) Urine Urobilinogen (Negative) Ur Leukocyte Esterase (Negative) Urine WBC (Auto) (0-5) /hpf Urine RBC (Auto) (0-4) /hpf U Hyaline Cast (Auto) (0-5) /lpf U Epithel Cells (Auto) (0-5) /lpf Urine Bacteria (Auto) (Negative) Salicylates (3.0-30) mg/dl Urine Opiates Screen (Neg) Ur Methadone, Qual (Neg) Acetaminophen (10-30) ug/ml Urine Barbiturates (Neg) Ur Phencyclidine (PCP) (Neg) U Amphetamin/Meth Scrn (Neg) MDMA (Ecstasy) Screen (Neg) U Benzodiazepines Scrn (Neg) Ur Cocaine Metabolite (Neg) U Marijuana (THC) Screen (Neg) U Marijuana THC Carboxy Drug Screen Comment Ethyl Alcohol mg/dL (<10.0) mg/dl SARS-CoV-2 (PCR) (Negative) 05/22/22 05/21/22 05/21/22 Range/Units 05:18 22:56 21:00 WBC 10.23 (4.8-10.8) K/ul RBC 4.23 (3.93-5.22) M/uL Hgb 12.6 D (12.0-16.0) g/dl Hct 36.5 (34.1-44.9) % MCV 86.3 (80.0-100.0) fL MCH 29.8 (25.0-34.0) pg MCHC 34.5 (32.0-36.0) g/dL RDW Std Deviation 40.8 (36.4-46.3) fL RDW Coeff of Ethel 13.0 (11.5-14.5) % Plt Count 202 (130-400) K/uL MPV 10.1 (9.4-12.3) fL Immature Gran % (Auto) % Neut % (Auto) % Lymph % (Auto) % [place] % (Auto) % Eos % (Auto) % Baso % (Auto) % Neut # (Auto) (1.4-6.5) K/uL Lymph # (Auto) (1.2-3.4) K/uL [place] # (Auto) (0.24-0.82) K/uL Eos # (Auto) (0-0.50) K/uL Baso # (Auto) (0-0.2) K/uL Immature Gran # (Auto) (0.00-0.02) K/uL PT (9.0-12.0) Seconds INR (0.9-1.1) APTT (21.0-31.0) Seconds PTT Ratio Sodium (136-145) mmol/L Potassium (3.5-5.1) mmol/L Chloride (98-107) mmol/L Carbon Dioxide (21-32) mmol/L Anion Gap (3-11) BUN (6-23) mg/dl Creatinine (0.6-1.2) mg/dl Est Cr Clr Drug Dosing Est GFR ( Amer) ml/min Est GFR (Non-Af Amer) ml/min BUN/Creatinine Ratio (10-20) Glucose (70-99(Fasting)) mg/dl POC Glucose 173 H (70-99) mg/dl Lactate (0.4-2.0) mmol/L Calcium (8.5-10.1) mg/dl Magnesium (1.7-2.4) mg/dl Total Bilirubin (0.2-1.0) mg/dl AST (13-39) U/L ALT (7-52) U/L Alkaline Phosphatase (34-104) U/L Ammonia (18-72) umol/L Total Creatine Kinase (26-192) U/L Troponin I High Sens (0-14) pg/ml C-Reactive Protein (0-0.5) mg/dl Total Protein (6.0-8.3) gm/dl Albumin (3.4-5.0) gm/dl Globulin (2.5-4.0) gm/dl Albumin/Globulin Ratio (0.9-2) Procalcitonin (0-0.5) ng/ml TSH (0.300-4.500) uIu/ml Urine Color Urine Appearance (Clear) Urine pH (4.5-7.5) Ur Specific [place] (1.000-1.030) Urine Protein (Negative) Urine Glucose (UA) (Negative) Urine Ketones (Negative) Urine Blood (Negative) Urine Nitrite (Negative) Urine Bilirubin (Negative) Urine Urobilinogen (Negative) Ur Leukocyte Esterase (Negative) Urine WBC (Auto) (0-5) /hpf Urine RBC (Auto) (0-4) /hpf U Hyaline Cast (Auto) (0-5) /lpf U Epithel Cells (Auto) (0-5) /lpf Urine Bacteria (Auto) (Negative) Salicylates (3.0-30) mg/dl Urine Opiates Screen (Neg) Ur Methadone, Qual (Neg) Acetaminophen (10-30) ug/ml Urine Barbiturates (Neg) Ur Phencyclidine (PCP) (Neg) U Amphetamin/Meth Scrn (Neg) MDMA (Ecstasy) Screen (Neg) U Benzodiazepines Scrn (Neg) Ur Cocaine Metabolite (Neg) U Marijuana (THC) Screen (Neg) U Marijuana THC Carboxy Pending Drug Screen Comment Pending Ethyl Alcohol mg/dL (<10.0) mg/dl SARS-CoV-2 (PCR) (Negative) 05/21/22 05/21/22 05/21/22 Range/Units 21:00 21:00 20:14 WBC (4.8-10.8) K/ul RBC (3.93-5.22) M/uL Hgb (12.0-16.0) g/dl Hct (34.1-44.9) % MCV (80.0-100.0) fL MCH (25.0-34.0) pg MCHC (32.0-36.0) g/dL RDW Std Deviation (36.4-46.3) fL RDW Coeff of Ethel (11.5-14.5) % Plt Count (130-400) K/uL MPV (9.4-12.3) fL Immature Gran % (Auto) % Neut % (Auto) % Lymph % (Auto) % [place] % (Auto) % Eos % (Auto) % Baso % (Auto) % Neut # (Auto) (1.4-6.5) K/uL Lymph # (Auto) (1.2-3.4) K/uL [place] # (Auto) (0.24-0.82) K/uL Eos # (Auto) (0-0.50) K/uL Baso # (Auto) (0-0.2) K/uL Immature Gran # (Auto) (0.00-0.02) K/uL PT (9.0-12.0) Seconds INR (0.9-1.1) APTT (21.0-31.0) Seconds PTT Ratio Sodium (136-145) mmol/L Potassium (3.5-5.1) mmol/L Chloride (98-107) mmol/L Carbon Dioxide (21-32) mmol/L Anion Gap (3-11) BUN (6-23) mg/dl Creatinine (0.6-1.2) mg/dl Est Cr Clr Drug Dosing Est GFR ( Amer) ml/min Est GFR (Non-Af Amer) ml/min BUN/Creatinine Ratio (10-20) Glucose (70-99(Fasting)) mg/dl POC Glucose (70-99) mg/dl Lactate 8.3 H* (0.4-2.0) mmol/L Calcium (8.5-10.1) mg/dl Magnesium (1.7-2.4) mg/dl Total Bilirubin (0.2-1.0) mg/dl AST (13-39) U/L ALT (7-52) U/L Alkaline Phosphatase (34-104) U/L Ammonia (18-72) umol/L Total Creatine Kinase (26-192) U/L Troponin I High Sens (0-14) pg/ml C-Reactive Protein (0-0.5) mg/dl Total Protein (6.0-8.3) gm/dl Albumin (3.4-5.0) gm/dl Globulin (2.5-4.0) gm/dl Albumin/Globulin Ratio (0.9-2) Procalcitonin (0-0.5) ng/ml TSH (0.300-4.500) uIu/ml Urine Color Yellow Urine Appearance Clear (Clear) Urine pH 5.5 (4.5-7.5) Ur Specific [place] 1.011 (1.000-1.030) Urine Protein 2+ H (Negative) Urine Glucose (UA) Trace H (Negative) Urine Ketones Trace H (Negative) Urine Blood Negative (Negative) Urine Nitrite Negative (Negative) Urine Bilirubin Negative (Negative) Urine Urobilinogen Negative (Negative) Ur Leukocyte Esterase Negative (Negative) Urine WBC (Auto) 0 (0-5) /hpf Urine RBC (Auto) 0-4 (0-4) /hpf U Hyaline Cast (Auto) 1-5 (0-5) /lpf U Epithel Cells (Auto) 0-5 (0-5) /lpf Urine Bacteria (Auto) Negative (Negative) Salicylates (3.0-30) mg/dl Urine Opiates Screen Neg (Neg) Ur Methadone, Qual Neg (Neg) Acetaminophen (10-30) ug/ml Urine Barbiturates Neg (Neg) Ur Phencyclidine (PCP) Neg (Neg) U Amphetamin/Meth Scrn Neg (Neg) MDMA (Ecstasy) Screen Neg (Neg) U Benzodiazepines Scrn Neg (Neg) Ur Cocaine Metabolite Neg (Neg) U Marijuana (THC) Screen Pos H (Neg) U Marijuana THC Carboxy Drug Screen Comment Ethyl Alcohol mg/dL (<10.0) mg/dl SARS-CoV-2 (PCR) (Negative) 05/21/22 05/21/22 05/21/22 Range/Units 20:11 18:34 18:32 WBC (4.8-10.8) K/ul RBC (3.93-5.22) M/uL Hgb (12.0-16.0) g/dl Hct (34.1-44.9) % MCV (80.0-100.0) fL MCH (25.0-34.0) pg MCHC (32.0-36.0) g/dL RDW Std Deviation (36.4-46.3) fL RDW Coeff of Ethel (11.5-14.5) % Plt Count (130-400) K/uL MPV (9.4-12.3) fL Immature Gran % (Auto) % Neut % (Auto) % Lymph % (Auto) % [place] % (Auto) % Eos % (Auto) % Baso % (Auto) % Neut # (Auto) (1.4-6.5) K/uL Lymph # (Auto) (1.2-3.4) K/uL [place] # (Auto) (0.24-0.82) K/uL Eos # (Auto) (0-0.50) K/uL Baso # (Auto) (0-0.2) K/uL Immature Gran # (Auto) (0.00-0.02) K/uL PT (9.0-12.0) Seconds INR (0.9-1.1) APTT (21.0-31.0) Seconds PTT Ratio Sodium (136-145) mmol/L Potassium (3.5-5.1) mmol/L Chloride (98-107) mmol/L Carbon Dioxide (21-32) mmol/L Anion Gap (3-11) BUN (6-23) mg/dl Creatinine (0.6-1.2) mg/dl Est Cr Clr Drug Dosing Est GFR ( Amer) ml/min Est GFR (Non-Af Amer) ml/min BUN/Creatinine Ratio (10-20) Glucose (70-99(Fasting)) mg/dl POC Glucose (70-99) mg/dl Lactate (0.4-2.0) mmol/L Calcium (8.5-10.1) mg/dl Magnesium (1.7-2.4) mg/dl Total Bilirubin (0.2-1.0) mg/dl AST (13-39) U/L ALT (7-52) U/L Alkaline Phosphatase (34-104) U/L Ammonia 24.0 (18-72) umol/L Total Creatine Kinase (26-192) U/L Troponin I High Sens (0-14) pg/ml C-Reactive Protein (0-0.5) mg/dl Total Protein (6.0-8.3) gm/dl Albumin (3.4-5.0) gm/dl Globulin (2.5-4.0) gm/dl Albumin/Globulin Ratio (0.9-2) Procalcitonin < 0.05 (0-0.5) ng/ml TSH (0.300-4.500) uIu/ml Urine Color Urine Appearance (Clear) Urine pH (4.5-7.5) Ur Specific [place] (1.000-1.030) Urine Protein (Negative) Urine Glucose (UA) (Negative) Urine Ketones (Negative) Urine Blood (Negative) Urine Nitrite (Negative) Urine Bilirubin (Negative) Urine Urobilinogen (Negative) Ur Leukocyte Esterase (Negative) Urine WBC (Auto) (0-5) /hpf Urine RBC (Auto) (0-4) /hpf U Hyaline Cast (Auto) (0-5) /lpf U Epithel Cells (Auto) (0-5) /lpf Urine Bacteria (Auto) (Negative) Salicylates (3.0-30) mg/dl Urine Opiates Screen (Neg) Ur Methadone, Qual (Neg) Acetaminophen (10-30) ug/ml Urine Barbiturates (Neg) Ur Phencyclidine (PCP) (Neg) U Amphetamin/Meth Scrn (Neg) MDMA (Ecstasy) Screen (Neg) U Benzodiazepines Scrn (Neg) Ur Cocaine Metabolite (Neg) U Marijuana (THC) Screen (Neg) U Marijuana THC Carboxy Drug Screen Comment Ethyl Alcohol mg/dL (<10.0) mg/dl SARS-CoV-2 (PCR) NEGATIVE (Negative) 05/21/22 05/21/22 05/21/22 Range/Units 18:32 18:32 18:32 WBC 11.31 H (4.8-10.8) K/ul RBC 5.47 H (3.93-5.22) M/uL Hgb 16.4 H (12.0-16.0) g/dl Hct 47.0 H (34.1-44.9) % MCV 85.9 (80.0-100.0) fL MCH 30.0 (25.0-34.0) pg MCHC 34.9 (32.0-36.0) g/dL RDW Std Deviation 40.7 (36.4-46.3) fL RDW Coeff of Ethel 13.0 (11.5-14.5) % Plt Count 293 (130-400) K/uL MPV 9.9 (9.4-12.3) fL Immature Gran % (Auto) 0.3 % Neut % (Auto) 63.2 % Lymph % (Auto) 29.5 % [place] % (Auto) 3.9 % Eos % (Auto) 1.8 % Baso % (Auto) 1.3 % Neut # (Auto) 7.15 H (1.4-6.5) K/uL Lymph # (Auto) 3.34 (1.2-3.4) K/uL [place] # (Auto) 0.44 (0.24-0.82) K/uL Eos # (Auto) 0.20 (0-0.50) K/uL Baso # (Auto) 0.15 (0-0.2) K/uL Immature Gran # (Auto) 0.03 H (0.00-0.02) K/uL PT (9.0-12.0) Seconds INR (0.9-1.1) APTT (21.0-31.0) Seconds PTT Ratio Sodium (136-145) mmol/L Potassium (3.5-5.1) mmol/L Chloride (98-107) mmol/L Carbon Dioxide (21-32) mmol/L Anion Gap (3-11) BUN (6-23) mg/dl Creatinine (0.6-1.2) mg/dl Est Cr Clr Drug Dosing Est GFR ( Amer) ml/min Est GFR (Non-Af Amer) ml/min BUN/Creatinine Ratio (10-20) Glucose (70-99(Fasting)) mg/dl POC Glucose (70-99) mg/dl Lactate (0.4-2.0) mmol/L Calcium (8.5-10.1) mg/dl Magnesium (1.7-2.4) mg/dl Total Bilirubin (0.2-1.0) mg/dl AST (13-39) U/L ALT (7-52) U/L Alkaline Phosphatase (34-104) U/L Ammonia (18-72) umol/L Total Creatine Kinase (26-192) U/L Troponin I High Sens (0-14) pg/ml C-Reactive Protein < 0.50 (0-0.5) mg/dl Total Protein (6.0-8.3) gm/dl Albumin (3.4-5.0) gm/dl Globulin (2.5-4.0) gm/dl Albumin/Globulin Ratio (0.9-2) Procalcitonin (0-0.5) ng/ml TSH 1.661 (0.300-4.500) uIu/ml Urine Color Urine Appearance (Clear) Urine pH (4.5-7.5) Ur Specific [place] (1.000-1.030) Urine Protein (Negative) Urine Glucose (UA) (Negative) Urine Ketones (Negative) Urine Blood (Negative) Urine Nitrite (Negative) Urine Bilirubin (Negative) Urine Urobilinogen (Negative) Ur Leukocyte Esterase (Negative) Urine WBC (Auto) (0-5) /hpf Urine RBC (Auto) (0-4) /hpf U Hyaline Cast (Auto) (0-5) /lpf U Epithel Cells (Auto) (0-5) /lpf Urine Bacteria (Auto) (Negative) Salicylates (3.0-30) mg/dl Urine Opiates Screen (Neg) Ur Methadone, Qual (Neg) Acetaminophen (10-30) ug/ml Urine Barbiturates (Neg) Ur Phencyclidine (PCP) (Neg) U Amphetamin/Meth Scrn (Neg) MDMA (Ecstasy) Screen (Neg) U Benzodiazepines Scrn (Neg) Ur Cocaine Metabolite (Neg) U Marijuana (THC) Screen (Neg) U Marijuana THC Carboxy Drug Screen Comment Ethyl Alcohol mg/dL (<10.0) mg/dl SARS-CoV-2 (PCR) (Negative) 05/21/22 05/21/2222 Range/Units 18:32 18:32 18:32 WBC (4.8-10.8) K/ul RBC (3.93-5.22) M/uL Hgb (12.0-16.0) g/dl Hct (34.1-44.9) % MCV (80.0-100.0) fL MCH (25.0-34.0) pg MCHC (32.0-36.0) g/dL RDW Std Deviation (36.4-46.3) fL RDW Coeff of Ethel (11.5-14.5) % Plt Count (130-400) K/uL MPV (9.4-12.3) fL Immature Gran % (Auto) % Neut % (Auto) % Lymph % (Auto) % [place] % (Auto) % Eos % (Auto) % Baso % (Auto) % Neut # (Auto) (1.4-6.5) K/uL Lymph # (Auto) (1.2-3.4) K/uL [place] # (Auto) (0.24-0.82) K/uL Eos # (Auto) (0-0.50) K/uL Baso # (Auto) (0-0.2) K/uL Immature Gran # (Auto) (0.00-0.02) K/uL PT (9.0-12.0) Seconds INR (0.9-1.1) APTT (21.0-31.0) Seconds PTT Ratio Sodium 138 (136-145) mmol/L Potassium 4.2 (3.5-5.1) mmol/L Chloride 95 L (98-107) mmol/L Carbon Dioxide 23 (21-32) mmol/L Anion Gap 20 H (3-11) BUN 10 (6-23) mg/dl Creatinine 0.66 (0.6-1.2) mg/dl Est Cr Clr Drug Dosing Not Reportable Est GFR ( Amer) 114.5 ml/min Est GFR (Non-Af Amer) 98.8 ml/min BUN/Creatinine Ratio 15.2 (10-20) Glucose 246 H (70-99(Fasting)) mg/dl POC Glucose (70-99) mg/dl Lactate (0.4-2.0) mmol/L Calcium 9.4 (8.5-10.1) mg/dl Magnesium 2.3 (1.7-2.4) mg/dl Total Bilirubin 0.5 (0.2-1.0) mg/dl AST 18 (13-39) U/L ALT 22 (7-52) U/L Alkaline Phosphatase 146 H (34-104) U/L Ammonia (18-72) umol/L Total Creatine Kinase 50 (26-192) U/L Troponin I High Sens 5.6 (0-14) pg/ml C-Reactive Protein (0-0.5) mg/dl Total Protein 8.1 (6.0-8.3) gm/dl Albumin 4.6 (3.4-5.0) gm/dl Globulin 3.5 (2.5-4.0) gm/dl Albumin/Globulin Ratio 1.3 (0.9-2) Procalcitonin (0-0.5) ng/ml TSH (0.300-4.500) uIu/ml Urine Color Urine Appearance (Clear) Urine pH (4.5-7.5) Ur Specific [place] (1.000-1.030) Urine Protein (Negative) Urine Glucose (UA) (Negative) Urine Ketones (Negative) Urine Blood (Negative) Urine Nitrite (Negative) Urine Bilirubin (Negative) Urine Urobilinogen (Negative) Ur Leukocyte Esterase (Negative) Urine WBC (Auto) (0-5) /hpf Urine RBC (Auto) (0-4) /hpf U Hyaline Cast (Auto) (0-5) /lpf U Epithel Cells (Auto) (0-5) /lpf Urine Bacteria (Auto) (Negative) Salicylates < 3.0 L (3.0-30) mg/dl Urine Opiates Screen (Neg) Ur Methadone, Qual (Neg) Acetaminophen < 3 L (10-30) ug/ml Urine Barbiturates (Neg) Ur Phencyclidine (PCP) (Neg) U Amphetamin/Meth Scrn (Neg) MDMA (Ecstasy) Screen (Neg) U Benzodiazepines Scrn (Neg) Ur Cocaine Metabolite (Neg) U Marijuana (THC) Screen (Neg) U Marijuana THC Carboxy Drug Screen Comment Ethyl Alcohol mg/dL 309.4 H (<10.0) mg/dl SARS-CoV-2 (PCR) (Negative) 05/21/22 05/21/22 Range/Units 18:32 18:32 WBC (4.8-10.8) K/ul RBC (3.93-5.22) M/uL Hgb (12.0-16.0) g/dl Hct (34.1-44.9) % MCV (80.0-100.0) fL MCH (25.0-34.0) pg MCHC (32.0-36.0) g/dL RDW Std Deviation (36.4-46.3) fL RDW Coeff of Ethel (11.5-14.5) % Plt Count (130-400) K/uL MPV (9.4-12.3) fL Immature Gran % (Auto) % Neut % (Auto) % Lymph % (Auto) % [place] % (Auto) % Eos % (Auto) % Baso % (Auto) % Neut # (Auto) (1.4-6.5) K/uL Lymph # (Auto) (1.2-3.4) K/uL [place] # (Auto) (0.24-0.82) K/uL Eos # (Auto) (0-0.50) K/uL Baso # (Auto) (0-0.2) K/uL Immature Gran # (Auto) (0.00-0.02) K/uL PT 10.4 (9.0-12.0) Seconds INR 1.0 (0.9-1.1) APTT 25.9 (21.0-31.0) Seconds PTT Ratio 0.9 Sodium (136-145) mmol/L Potassium (3.5-5.1) mmol/L Chloride (98-107) mmol/L Carbon Dioxide (21-32) mmol/L Anion Gap (3-11) BUN (6-23) mg/dl Creatinine (0.6-1.2) mg/dl Est Cr Clr Drug Dosing Est GFR ( Amer) ml/min Est GFR (Non-Af Amer) ml/min BUN/Creatinine Ratio (10-20) Glucose (70-99(Fasting)) mg/dl POC Glucose (70-99) mg/dl Lactate 5.7 H* (0.4-2.0) mmol/L Calcium (8.5-10.1) mg/dl Magnesium (1.7-2.4) mg/dl Total Bilirubin (0.2-1.0) mg/dl AST (13-39) U/L ALT (7-52) U/L Alkaline Phosphatase (34-104) U/L Ammonia (18-72) umol/L Total Creatine Kinase (26-192) U/L Troponin I High Sens (0-14) pg/ml C-Reactive Protein (0-0.5) mg/dl Total Protein (6.0-8.3) gm/dl Albumin (3.4-5.0) gm/dl Globulin (2.5-4.0) gm/dl Albumin/Globulin Ratio (0.9-2) Procalcitonin (0-0.5) ng/ml TSH (0.300-4.500) uIu/ml Urine Color Urine Appearance (Clear) Urine pH (4.5-7.5) Ur Specific [place] (1.000-1.030) Urine Protein (Negative) Urine Glucose (UA) (Negative) Urine Ketones (Negative) Urine Blood (Negative) Urine Nitrite (Negative) Urine Bilirubin (Negative) Urine Urobilinogen (Negative) Ur Leukocyte Esterase (Negative) Urine WBC (Auto) (0-5) /hpf Urine RBC (Auto) (0-4) /hpf U Hyaline Cast (Auto) (0-5) /lpf U Epithel Cells (Auto) (0-5) /lpf Urine Bacteria (Auto) (Negative) Salicylates (3.0-30) mg/dl Urine Opiates Screen (Neg) Ur Methadone, Qual (Neg) Acetaminophen (10-30) ug/ml Urine Barbiturates (Neg) Ur Phencyclidine (PCP) (Neg) U Amphetamin/Meth Scrn (Neg) MDMA (Ecstasy) Screen (Neg) U Benzodiazepines Scrn (Neg) Ur Cocaine Metabolite (Neg) U Marijuana (THC) Screen (Neg) U Marijuana THC Carboxy Drug Screen Comment Ethyl Alcohol mg/dL (<10.0) mg/dl SARS-CoV-2 (PCR) (Negative) Medications Administered Gabapentin (Gabapentin 300 Mg Cap) 300 mg PO TID [facility] Stop: 06/21/22 13:59 Last Admin: 05/22/22 10:47 Dose: 300 mg Documented By: ES Sodium Chloride (Nss 1000ml) 1,000 mls @ 125 mls/hr IV .Q8H [facility] Stop: 06/20/22 22:24 Last Admin: 05/22/22 12:52 Dose: Not Given Documented By: Infusion: 05/22/22 12:52 Dose: 0 mls/hr Documented By: Admin: 05/22/22 07:06 Dose: 125 mls/hr Documented By: Infusion: 05/22/22 07:06 Dose: 125 mls/hr Documented By: Admin: 05/21/22 23:09 Dose: 125 mls/hr Documented By: SCOTT Thiamine HCl 100 mg/ Syringe 10 mls @ 2 mls/min IV QAM [facility] Stop: 06/21/22 08:59 Last Admin: 05/22/22 07:46 Dose: 2 mls/min Documented By: NEGRO Folic Acid 1 mg/ Syringe 10 mls @ 5 mls/min IV QAM [facility] Stop: 06/21/22 08:59 Last Admin: 05/22/22 07:46 Dose: 5 mls/min Documented By: NEGRO Insulin Aspart (Insulin Aspart Per Unit) 0 units SC ACHS [facility] Stop: 06/20/22 22:24 Last Admin: 05/22/22 10:55 Dose: 7 units Documented By: NEGRO Co-signed By: NEHA Admin: 05/22/22 07:13 Dose: Not Given Documented By: Admin: 05/21/22 23:03 Dose: Not Given Documented By: SCOTT Insulin Glargine (Lantus Per Unit Charge) 12 units SQ BID [facility] Stop: 06/20/22 22:24 Last Admin: 05/22/22 07:46 Dose: 12 units Documented By: NEGRO Co-signed By: NEHA Admin: 05/21/22 23:07 Dose: 12 units Documented By: SCOTT Co-signed By: ANITA Ondansetron HCl (Ondansetron Inj 2 Mg/Ml 2 Ml Vial) 4 mg IV Q6H PRN PRN Reason: Nausea Stop: 06/20/22 22:24 Last Admin: 05/22/22 07:46 Dose: 4 mg Documented By: Admin: 05/22/22 01:39 Dose: 4 mg Documented By: MANUEL Coding Level of Care Code 44607 U Intl Hosp Care Lvl 2 Diagnoses Alcohol intoxication F10.923
--- NOTE | 2022-05-22 17:47 | Discharge Summary ---
Date of Service May 22, 2022 Admission HPI Per Admitting Provider 56 yo F with complex PMH including severe alcohol use disorder with multiple relapses from sobriety, multiple episodes of alcohol intoxication and withdrawal, uncontrolled T1DM with neuropathy, LLE osteomyelitis s/p BKA, chronic pancreatitis, exocrine pancreatic insufficiency, liver cirrhosis presenting with altered mental status. Pt was brought to ER after mother did not hear from her in some time and called police to perform wellness check. Police found pt sitting in wheelchair with confusion and smelling strongly of urine. Subsequently brought to ED. Upon arrival, pt tachycardic to 110s-120s, stable respiratory status. Initial labs- mild leukocytosis WBC 11.3, anion gap 20, glucose 246, lactate 5.6 -> 8.3. Serum ethanol 309. CBC, BMP otherwise unremarkable. Head CT negative, CXR negative. Pt was given IVF with thiamine/multivitamin/folate, Zofran, Phenergan x2, Ativan 0.5 mg x2. Cefepime started, 1L NSS bolus administered On evaluation, pt tired and minimally interactive. States she feels pain around her amputation site and noticed shaking of her R leg. Denying any chest pain, fever, chills, dyspnea, headache. Principal Diagnosis Alcohol and likely drug intoxication Discharge Exam In no distress. Alert and oriented. RRR, lungs CTA. Discharge Data Allergies Allergy/AdvReac Type Severity Reaction Status Date / Time haloperidol [From Haldol] AdvReac Unknown Unknown Verified 05/21/22 19:01 Consultations 05/21/22 19:57 ED Decision to Admit Stat 05/21/22 22:25 Consult Psychiatry Routine Ordered Studies 05/21/22 17:56 CT head/brain wo con Stat Hospital Course (1) Alcohol intoxication: Elevated alcohol level on admission along with THC positive. Likely AMS from toxic encephalopathy from alcohol & drugs. Returned to normal state of health by day of discharge. Declined alcohol intervention and minimized her drinking saying she only drank 1-2 glasses of wine per day. Requested to go home as she was worried about her cats and that we would not control her blood sugars adequately. Seen by psychiatry with sign-off on safe discharge. While I counseled additional stay in the hospital, she wanted to go home and was discharged. Elevated lactate -Lactate 5.6 on admission increased to 8.3, mild leukocytosis to 11.3 -Suspect alcohol intoxication contributing to lactate elevation, pt not meeting SIRS/sepsis criteria at this time but given AMS, increasing lactate and complex PMH including uncontrolled T1DM, will treat empirically - Cultures negative - No abx required on discharge. T1DM with neuropathy -Last A1C of 9.4 in 03/2022 -Glucose 246 on admission -Lantus 12u BID, ISS -Holding home gabapentin, duloxetine Cirrhotic liver disease -AST, ALT on admission wnl -Alkaline phosphatase minimally elevated to 146 on admission -Trend CMP - Improved on discharge apart from Tbili which was mildly higher. Can recheck as outpatient. Exocrine pancreatic insufficiency -Held home enzyme replacement Hyperlipidemia -Held home atorvastatin 20 mg; resume on discharge. Total Time Total Time Spent Total Time Spent (In Minutes): 35 Discharge Plan Discharge Items Patient Disposition: Home - Self-Care Reason For Visit: ALCOHOL INTOXICATION Discharge Diagnosis: Altered mental status Condition on Discharge: Good Activity: Resume your previous activity Non-emergency contact: Primary Care Provider Call non-emergency contact if: your symptoms worsen Follow-up/Referrals: Ana Lilia Madrid MD [Primary Care Provider] - Diet: Carb Count or DM1 Addtl Attending Provider Instructions: Ms. Chiu, You were found in your home unresponsive. Your blood alcohol level was 0.31%. In [place], the ALICE for driving is < 0.08%, so you were much higher than this. You told me you drink 1-2 glasses of wine a day, but you would have needed to drink at least 10 5oz glasses of wine to get your ALICE that high. I think that alcohol intoxication mixed with your medications caused you to pass out. Today, however, you are much better. Your labs have all corrected. Your blood sugar is well-controlled. You feel well and want to go home. This is certainly your choice. I would encourage you to stop drinking as it is very bad for your health, and I am concerned that you will have more health complications from your alcohol consumption. Please be safe and take care. If you have any interest in alcohol addiction resources, please reach out to our case management here or to your PCP. Pending Studies at Discharge: No Stand-Alone Forms: [employer], Smoking Cessation Medications and DC Order Prescriptions: Continued atorvastatin 20 mg tablet 20 mg PO QPM Qty: 30 2RF Creon 6,000-19,000 -30,000 unit capsule,delayed release(DR/EC) 1 cap PO TID Qty: 90 5RF buspirone 15 mg tablet 15 mg PO BID Qty: 60 5RF duloxetine [Cymbalta] 20 mg capsule,delayed release(DR/EC) 20 mg PO HS Qty: 30 5RF Hold Instructions: does not take duloxetine [Cymbalta] 60 mg capsule,delayed release(DR/EC) 60 mg PO QAM Qty: 30 5RF (DME) blood-glucose meter Misc See Rx Instructions .Route Rx Instructions: Reli-On brand. Test blood sugar four times daily cholecalciferol (vitamin D3) 1,000 unit capsule 1,000 units PO HS (DME) Ketostix Strip See Rx Instructions miscellaneous .MEDSUPPLY Qty: 50 5RF Rx Instructions: Check urine for ketones if high blood sugar clobetasol 0.05 % solution 1 applic topical DAILY Qty: 50 2RF Rx Instructions: Apply to scalp once daily as needed for flaring. (DME) FreeStyle Janny 2 Sensor Kit See Rx Instructions .Route Qty: 2 11RF Rx Instructions: change every 14 days gabapentin 300 mg capsule 300 mg PO TID Qty: 90 5RF multivitamin Tablet 1 tab PO DAILY cyanocobalamin (vitamin B-12) [Vitamin B-12] 1,000 mcg tablet 1,000 mcg PO DAILY diphenhydramine HCl [Benadryl Allergy] 25 mg Tablet 25 - 50 mg PO Q6H PRN (Reason: Allergy Symptoms) fluticasone propionate 50 mcg/actuation [place],Suspension 2 spray INTRANASAL DAILY PRN (Reason: Allergy Symptoms) ascorbic acid (vitamin C) [Vitamin C] 500 mg tablet 500 mg PO Q OTHER DAY Rx Instructions: 500 mg PO every other day; insulin asp prt-insulin aspart [Novolog Mix 70-30FlexPen U-100] 100 unit/mL (70-30) insulin pen 60 unit SUBCUT UD Rx Instructions: 35 units in the morning and 25 units in the evening folic acid 1 mg Tablet 1 mg PO DAILY Discharge Orders: Discharge Order (Routine); Ordered 05/22/22 Ordered By: Hussein Cassidy Admission Data Admit Date/Time: 05/21/22 20:50 Attending Provider: Hussein Cassidy Admit Provider: Seb Hogan Primary Care Provider: Ana Lilia Madrid V. Other Providers: Adelso Younger ; Melyssa Gomes ; Evelia George ; Jordana Sherman ; [place] Other Interventions: Discharge Summary Assessment (RN) Last Done: 05/22/22 14:37 Coding Level of Care Code D/C DAY MANAGEMENT >30 MINS Diagnoses Alcohol intoxication F10.929 Complication of substance-induced condition: with unspecified complication
--- NOTE | 2022-05-22 22:11 | Billing Data ---
Date of Service May 22, 2022 Coding Level of Care Code 99334 Initial Inpt Care Lvl 3
[2022-05-23 21:36] LABS: Marijuana Quant, GCMS Urine 25 ng/mL (<5)
== END 2022-05-22 15:06 | disposition home or self-care (01) | DRG 897 ==
LOC: ED 17:47 → SUATTDRO 20:50 → 1E 20:50

== ENCOUNTER 2022-08-28 18:24 | Inpatient (IN) ==
--- NOTE | 2022-08-28 18:38 | Emergency Department Note ---
Impression & Plan Acute head injury, Forehead laceration, Contusion of elbow, left, Contusion of knee, right, Acute alteration in mental status, Alcohol intoxication ED Provider Note NAME: NANCY CORREA AGE: 56 SEX: F : 1965 ARRIVES VIA: Ambulance INFORMANT: EMS ED PROVIDER(S): Pete Giles DO CHIEF COMPLAINT: Head injury HPI: The patient is a 56-year-old female who presented to the emergency department by ambulance for an evaluation of altered mental status. The patient was obtunded when EMS arrived. The patient's mother did call 911. Apparently the patient was ambulating outside when she fell striking the right side of her head. There is no definite loss of consciousness but the patient has been having more obtunded as time is gone on. The fall occurred around 5 PM. According to her mother the patient may have been having trouble ambulating secondary to left leg amputation history. She was noted to have hyperglycemia prior to arrival. She was treated with IV dextrose. The patient continues to be obtunded. She does have a history of alcohol abuse in the past. Pupils were noted to be dilated bilaterally but symmetric. She was not given Narcan prior to arrival. There is no other reported trauma other than the head trauma. The patient was able to ambulate back into the house but is since become obtunded and is not answering questions. She is not following commands. There is no history of recent drug or alcohol use. ROS: See above HPI for pertinent positives & negatives. A total of 10 systems reviewed and were otherwise negative. PAST MEDICAL HISTORY: See Below PAST SURGICAL HISTORY: See Below FAMILY HISTORY: See Below SOCIAL HISTORY: See Below HOME MEDICATIONS: See Below ALLERGIES: See Below VITALS: See Below PHYSICAL EXAMINATION: GENERAL: The patient is obtunded and does not answer questions or follow commands. EYES: The conjunctivae are clear. Pupils are dilated and minimally reactive to light bilaterally. EARS, NOSE, MOUTH AND THROAT: The nose is without any evidence of any deformity. Mucous membranes are moist. There is a laceration on the right forehead. No active bleeding was noted. NECK: Rigid cervical collar was placed prior to arrival. RESPIRATORY: Normal respiratory effort is noted there is no evidence of wheezing rhonchi or rales CARDIOVASCULAR: Regular rate and rhythm noted there no murmurs rubs or gallops normal S1 normal S2. GASTROINTESTINAL: The abdomen is soft. Abdomen is nontender. There is a left below-knee amputation noted. MUSCULOSKELETAL/EXTREMITIES: There is no evidence of gross deformity full range of motion is noted in the hips and shoulders. SKIN: Skin is cool and dry. There is no significant edema of the lower extremities. NEUROLOGIC: GCS of 3. MEDICAL DECISION MAKING: The patient is a 56-year-old female who presented to the emergency department by ambulance with altered mental status. The patient had a very low GCS upon arrival to the emergency department. She had no verbal response that she would not wake up or open her eyes and she had no localization of any pain. She did not have any posturing but given her history of a recent head injury the patient was sent immediately for CAT scan of the head and neck. The patient was reevaluated multiple times. I discussed the patient's laboratory and radiographic studies with her and her mother. She did start to improve very slowly. It was found that the patient did have a very elevated blood alcohol le stephen. On reevaluation she was speaking but her speech was very slurred. This appears to be more consistent with an alcohol intoxication rather than a head injury at this time but the patient may require further inpatient observation for frequent reevaluations to ensure she is improving in the usual timeframe. I discussed her condition with the on-call [facility] hospitalist. They have agreed to evaluate the patient in the emergency department for further management and disposition. Triage Nursing notes reviewed. Prior medical records reviewed Vital Signs: reviewed and remarkable for elevated blood pressure. Differential diagnosis: Infection, hypoglycemia, electrolyte abnormalities, overdose, toxicologic, cardiac sources, intracerebral event, neurologic, trauma, as well as other pathologies. ER treatment provided: See below Diagnostics interpreted by me: ECG: EKG was obtained in the emergency department. My interpretation is normal sinus rhythm at 89 bpm. There was no ectopy. There was no acute ST segment abnormalities noted. This was compared to a tracing from May 21, 2022. No changes were noted. Cardiac Monitoring: An order was placed for continuous cardiac monitoring. The monitor shows a rate of 80 bpm with sinus rhythm. Laboratory studies: As stated above and show below. Imaging studies: See below Consultation(s): I discussed this case with Dr. Younger ED COURSE: Procedures: none Critical Care: I have personally spent greater than 35 minutes of critical care time in the d irect management of this patient. This includes bedside care, interpretation of diagnostic studies, and testing, discussion with consultants, patient, and family members, and other required patient management activities. This 35 minutes is in excess of all separately billable procedures. Past Med/Surg History Medical History Alcohol withdrawal seizure NOT REPORTED BY PATIENT AT TIME OF PAT CALL - LAST EPISODE OVER A YEAR AGO Aspiration pneumonia Caustic esophageal injury Chronic pancreatitis Cirrhosis of liver "COMPROMISED LIVER" Diabetes type 1, uncontrolled Diabetic peripheral neuropathy associated with type 1 diabetes mellitus Dysesthesia Dyslipidemia Encephalomalacia Exocrine pancreatic insufficiency History of alcohol abuse History of GI bleed Hydrosalpinx PT UNAWARE IPMN (intraductal papillary mucinous neoplasm) Imaging July 2020 follow-up yearly Leukopenia Lipoma NECK Polycystic ovarian syndrome Psoriasis SBO (small bowel obstruction) Resolved Thrombocytopenia Tobacco dependence Vitamin D deficiency Surgical History Amputation of left lower extremity TO APPROX MID CALF History of ankle surgery 02/2019 left ankle ex fix, grade 2 view with MAC 3 and 7.0 ETT History of tooth extraction Family History Uncle Diabetes Mother Breast cancer Sister Breast cancer Father Prostate cancer Other Family history of breast cancer in mother Family history of breast cancer in sister Denies family history of Ovarian cancer Myocardial infarction Colorectal cancer Social History Smoking Status: Current every day smoker Tobacco Type: Cigarettes packs per day: 0.75; Cigarettes Per Day: 15; Second Hand Exposure: No; Hx Alcohol Use: Yes Alcohol type: wine Hx Substance Use: No Preferred Language: Eritrean Communication Ability: Effective Visual Impairment: No Limitations Tube Backer Required: No Beliefs That Will Affect Care: None marital status: marital status details: no children Current Living Situation: Alone current occupational status: disabled Feels Safe at Home: Yes Assistive Devices: Wheelchair Allergies Allergies Allergy/AdvReac Type Severity Reaction Status Date / Time haloperidol [From Haldol] AdvReac Unknown Unknown Verified 08/28/22 20:13 Home Meds Home Medications Medication Instructions Recorded Confirmed cholecalciferol (vitamin D3) 25 1,000 units PO HS 06/23/19 08/28/22 mcg (1,000 unit) capsule cyanocobalamin (vitamin B-12) 1,000 mcg PO DAILY 05/10/20 08/28/22 1,000 mcg tablet (Vitamin B-12) diphenhydramine HCl 25 mg tablet 25 - 50 mg PO Q6H PRN Allergy 10/25/20 08/28/22 (Benadryl Allergy) Symptoms fluticasone propionate 50 2 spray intranasal DAILY PRN 10/25/20 08/28/22 mcg/actuation nasal Allergy Symptoms spray,suspension blood-glucose meter 05/21/21 08/28/22 ascorbic acid (vitamin C) 500 mg 500 mg PO Q OTHER DAY 07/04/21 08/28/22 tablet (Vitamin C) multivitamin 1 tab PO DAILY 12/24/21 08/28/22 folic acid 1 mg tablet 1 mg PO DAILY 05/21/22 08/28/22 insulin aspar prot-insulin aspart 60 unit subcut UD 05/21/22 08/28/22 100 unit/mL (70-30) subcutaneous pen (Novolog Mix 70-30FlexPen U-100) Previous Rx's Medication Instructions Recorded acetone (urine) test (Ketostix #50 ea 04/12/21 strips) gabapentin 300 mg capsule 300 mg PO TID #90 caps 04/01/22 clobetasol 0.05 % scalp solution 1 applic topical DAILY #50 mL 04/22/22 [id number] 1 cap PO TID #90 caps 04/22/22 6,000-19,000-30,000 unit capsule,delayed rel (Creon) buspirone 15 mg tablet 15 mg PO BID #60 tabs 04/30/22 duloxetine 20 mg capsule,delayed 20 mg PO HS #30 caps 04/30/22 release (Cymbalta) duloxetine 60 mg capsule,delayed 60 mg PO QAM #30 caps 04/30/22 release (Cymbalta) insulin aspart U-100 100 unit/mL 33 unit (0.33 mL) subcut DAILY #2 06/06/22 (3 mL) subcutaneous pen (Novolog Boxes Flexpen U-100 Insulin aspart) insulin glargine 100 unit/mL (3 40 unit (0.4 mL) subcut QPM #3 06/06/22 mL) subcutaneous pen (Lantus Boxes Solostar U-100 Insulin) flash glucose sensor (FreeStyle #2 ea 07/03/22 Janny 2 Sensor kit) atorvastatin 20 mg tablet 20 mg PO QPM #30 tabs 07/22/22 Results & Data (ED) Vital Signs Vital Signs - 24 hr 08/28/22 18:37 08/28/22 18:35 08/28/22 18:26 Temperature 36.4 C L Temperature Source Oral Pulse Rate 89 89 Pulse Rate from SpO2 Sensor Pulse Rhythm Regular Regular Pulse Strength Normal Respiratory Rate 12 20 Respiratory Effort / Characteristics Non-Labored Spontaneous Respiratory Depth Normal Respiratory Pattern Regular Blood Pressure 169/93 H Blood Pressure Mean 118 Blood Pressure Position Sitting Pulse Oximetry 93 93 98 Oxygen Delivery Method Room Air Oxymask Oxymask Oxygen Flow Rate 2 8 Sepsis Recent Fever Within 48 Hours No Sepsis New/Unexplained Change in Mental Status No Sepsis Action Taken by Nursing No Action Required Oxygen Flow Rate - Titration 8 Pulse Oximetry Post Tiitration 98 08/28/22 19:09 08/28/22 19:20 08/28/22 19:34 Temperature Temperature Source Pulse Rate 94 H 89 94 H Pulse Rate from SpO2 Sensor 95 H 89 Pulse Rhythm Pulse Strength Respiratory Rate 16 15 21 Respiratory Effort / Characteristics Respiratory Depth Respiratory Pattern Blood Pressure 136/88 151/91 H 167/102 H Blood Pressure Mean 104 111 123 Blood Pressure Position Pulse Oximetry 100 99 100 Oxygen Delivery Method Oxymask Oxymask Oxymask Oxygen Flow Rate 6 6 6 Sepsis Recent Fever Within 48 Hours Sepsis New/Unexplained Change in Mental Status Sepsis Action Taken by Nursing Oxygen Flow Rate - Titration Pulse Oximetry Post Tiitration 08/28/22 19:40 08/28/22 19:50 08/28/22 20:00 Temperature Temperature Source Pulse Rate 93 H 91 H 91 H Pulse Rate from SpO2 Sensor 92 H 91 H 92 H Pulse Rhythm Pulse Strength Respiratory Rate 22 18 18 Respiratory Effort / Characteristics Respiratory Depth Respiratory Pattern Blood Pressure 152/93 H 152/90 H 145/89 H Blood Pressure Mean 112 110 107 Blood Pressure Position Pulse Oximetry 100 99 100 Oxygen Delivery Method Oxymask Oxymask Oxymask Oxygen Flow Rate 6 6 6 Sepsis Recent Fever Within 48 Hours Sepsis New/Unexplained Change in Mental Status Sepsis Action Taken by Nursing Oxygen Flow Rate - Titration Pulse Oximetry Post Tiitration 08/28/22 20:10 08/28/22 20:20 08/28/22 20:30 Temperature Temperature Source Pulse Rate 98 H 94 H 94 H Pulse Rate from SpO2 Sensor 99 H 93 H 95 H Pulse Rhythm Pulse Strength Respiratory Rate 23 18 19 Respiratory Effort / Characteristics Respiratory Depth Respiratory Pattern Blood Pressure 132/85 140/91 140/89 Blood Pressure Mean 100 107 106 Blood Pressure Position Pulse Oximetry 99 100 100 Oxygen Delivery Method Oxymask Oxymask Oxymask Oxygen Flow Rate 6 6 6 Sepsis Recent Fever Within 48 Hours Sepsis New/Unexplained Change in Mental Status Sepsis Action Taken by Nursing Oxygen Flow Rate - Titration Pulse Oximetry Post Tiitration 08/28/22 20:40 08/28/22 20:50 08/28/22 21:00 Temperature Temperature Source Pulse Rate 94 H 91 H 92 H Pulse Rate from SpO2 Sensor 94 H 91 H 92 H Pulse Rhythm Pulse Strength Respiratory Rate 14 18 15 Respiratory Effort / Characteristics Respiratory Depth Respiratory Pattern Blood Pressure 130/94 127/80 111/76 Blood Pressure Mean 106 95 87 Blood Pressure Position Pulse Oximetry 99 92 88 L Oxygen Delivery Method Oxymask Nasal Cannula Nasal Cannula Oxygen Flow Rate 6 3 3 Sepsis Recent Fever Within 48 Hours Sepsis New/Unexplained Change in Mental Status Sepsis Action Taken by Nursing Oxygen Flow Rate - Titration Pulse Oximetry Post Tiitration 08/28/22 21:10 Temperature Temperature Source Pulse Rate 90 Pulse Rate from SpO2 Sensor 90 Pulse Rhythm Pulse Strength Respiratory Rate 15 Respiratory Effort / Characteristics Respiratory Depth Respiratory Pattern Blood Pressure 114/76 Blood Pressure Mean 88 Blood Pressure Position Pulse Oximetry 97 Oxygen Delivery Method Oxymask Oxygen Flow Rate 6 Sepsis Recent Fever Within 48 Hours Sepsis New/Unexplained Change in Mental Status Sepsis Action Taken by Nursing Oxygen Flow Rate - Titration Pulse Oximetry Post Tiitration Home Medications Current Medication List: was personally reviewed by me Laboratory Data Attestation: I reviewed the patient's lab results. Result diagrams: 08/28/22 19:06 08/28/22 19:06 Lab Results 08/28/22 08/28/22 08/28/22 Range/Units 18:53 19:06 19:06 WBC 11.84 H (4.8-10.8) K/ul RBC 5.11 (3.93-5.22) M/uL Hgb 15.6 (12.0-16.0) g/dl Hct 44.8 (34.1-44.9) % MCV 87.7 (80.0-100.0) fL MCH 30.5 (25.0-34.0) pg MCHC 34.8 (32.0-36.0) g/dL RDW Std Deviation 42.4 (36.4-46.3) fL RDW Coeff of Ethel 13.2 (11.5-14.5) % Plt Count 329 (130-400) K/uL MPV 9.5 (9.4-12.3) fL Immature Gran % (Auto) 0.4 % Neut % (Auto) 64.6 % Lymph % (Auto) 26.3 % Robertson % (Auto) 4.1 % Eos % (Auto) 3.7 % Baso % (Auto) 0.9 % Neut # (Auto) 7.65 H (1.4-6.5) K/uL Lymph # (Auto) 3.11 (1.2-3.4) K/uL Robertson # (Auto) 0.48 (0.24-0.82) K/uL Eos # (Auto) 0.44 (0-0.50) K/uL Baso # (Auto) 0.11 (0-0.2) K/uL Immature Gran # (Auto) 0.05 H (0.00-0.02) K/uL ESR (0-30) mm/hr PT 10.4 (9.0-12.0) Seconds INR 1.0 (0.9-1.1) APTT 24.2 (21.0-31.0) Seconds PTT Ratio 0.9 VBG pH (7.36-7.41) VBG pCO2 (38-50) mmHg VBG pO2 mmHg VBG HCO3 mmol/L VBG O2 Saturation % VBG Base Excess mEq/L Sodium (136-145) mmol/L Potassium (3.5-5.1) mmol/L Chloride (98-107) mmol/L Carbon Dioxide (21-32) mmol/L Anion Gap (3-11) BUN (6-23) mg/dl Creatinine (0.6-1.2) mg/dl Est Cr Clr Drug Dosing Est GFR ( Amer) ml/min Est GFR (Non-Af Amer) ml/min BUN/Creatinine Ratio (10-20) Glucose (70-99(Fasting)) mg/dl POC Glucose 135 H (70-99) mg/dl Lactate (0.4-2.0) mmol/L Calcium (8.5-10.1) mg/dl Magnesium (1.7-2.4) mg/dl Total Bilirubin (0.2-1.0) mg/dl Direct Bilirubin (0-0.2) mg/dl AST (13-39) U/L ALT (7-52) U/L Alkaline Phosphatase (34-104) U/L Ammonia (18-72) umol/L Troponin I High Sens (0-14) pg/ml C-Reactive Protein (0-0.5) mg/dl Total Protein (6.0-8.3) gm/dl Albumin (3.4-5.0) gm/dl Lipase (11-82) U/L Procalcitonin (0-0.5) ng/ml Urine Color Urine Appearance (Clear) Urine pH (4.5-7.5) Ur Specific Dugger (1.000-1.030) Urine Protein (Negative) Urine Glucose (UA) (Negative) Urine Ketones (Negative) Urine Blood (Negative) Urine Nitrite (Negative) Urine Bilirubin (Negative) Urine Urobilinogen (Negative) Ur Leukocyte Esterase (Negative) Salicylates (3.0-30) mg/dl Urine Opiates Screen (Neg) Ur Methadone, Qual (Neg) Acetaminophen (10-30) ug/ml Urine Barbiturates (Neg) Ur Phencyclidine (PCP) (Neg) U Amphetamin/Meth Scrn (Neg) MDMA (Ecstasy) Screen (Neg) U Benzodiazepines Scrn (Neg) Ur Cocaine Metabolite (Neg) U Marijuana (THC) Screen (Neg) Ethyl Alcohol mg/dL (<10.0) mg/dl SARS-CoV-2, RNA, NAAT (NEGATIVE) 08/28/22 08/28/22 08/28/22 Range/Units 19:06 19:06 19:06 WBC (4.8-10.8) K/ul RBC (3.93-5.22) M/uL Hgb (12.0-16.0) g/dl Hct (34.1-44.9) % MCV (80.0-100.0) fL MCH (25.0-34.0) pg MCHC (32.0-36.0) g/dL RDW Std Deviation (36.4-46.3) fL RDW Coeff of Ethel (11.5-14.5) % Plt Count (130-400) K/uL MPV (9.4-12.3) fL Immature Gran % (Auto) % Neut % (Auto) % Lymph % (Auto) % Robertson % (Auto) % Eos % (Auto) % Baso % (Auto) % Neut # (Auto) (1.4-6.5) K/uL Lymph # (Auto) (1.2-3.4) K/uL Robertson # (Auto) (0.24-0.82) K/uL Eos # (Auto) (0-0.50) K/uL Baso # (Auto) (0-0.2) K/uL Immature Gran # (Auto) (0.00-0.02) K/uL ESR (0-30) mm/hr PT (9.0-12.0) Seconds INR (0.9-1.1) APTT (21.0-31.0) Seconds PTT Ratio VBG pH (7.36-7.41) VBG pCO2 (38-50) mmHg VBG pO2 mmHg VBG HCO3 mmol/L VBG O2 Saturation % VBG Base Excess mEq/L Sodium 142 (136-145) mmol/L Potassium 3.7 (3.5-5.1) mmol/L Chloride 105 (98-107) mmol/L Carbon Dioxide 27 (21-32) mmol/L Anion Gap 10 (3-11) BUN 6 (6-23) mg/dl Creatinine 0.70 (0.6-1.2) mg/dl Est Cr Clr Drug Dosing Not Reportable Est GFR ( Amer) 112.3 ml/min Est GFR (Non-Af Amer) 96.9 ml/min BUN/Creatinine Ratio 8.6 L (10-20) Glucose 158 H (70-99(Fasting)) mg/dl POC Glucose (70-99) mg/dl Lactate 1.9 (0.4-2.0) mmol/L Calcium 9.2 (8.5-10.1) mg/dl Magnesium 2.2 (1.7-2.4) mg/dl Total Bilirubin 0.3 (0.2-1.0) mg/dl Direct Bilirubin 0.1 (0-0.2) mg/dl AST 19 (13-39) U/L ALT 20 (7-52) U/L Alkaline Phosphatase 136 H (34-104) U/L Ammonia (18-72) umol/L Troponin I High Sens 3.0 (0-14) pg/ml C-Reactive Protein 0.60 H (0-0.5) mg/dl Total Protein 6.9 (6.0-8.3) gm/dl Albumin 4.1 (3.4-5.0) gm/dl Lipase 9 L (11-82) U/L Procalcitonin < 0.05 (0-0.5) ng/ml Urine Color Urine Appearance (Clear) Urine pH (4.5-7.5) Ur Specific Dugger (1.000-1.030) Urine Protein (Negative) Urine Glucose (UA) (Negative) Urine Ketones (Negative) Urine Blood (Negative) Urine Nitrite (Negative) Urine Bilirubin (Negative) Urine Urobilinogen (Negative) Ur Leukocyte Esterase (Negative) Salicylates (3.0-30) mg/dl Urine Opiates Screen (Neg) Ur Methadone, Qual (Neg) Acetaminophen (10-30) ug/ml Urine Barbiturates (Neg) Ur Phencyclidine (PCP) (Neg) U Amphetamin/Meth Scrn (Neg) MDMA (Ecstasy) Screen (Neg) U Benzodiazepines Scrn (Neg) Ur Cocaine Metabolite (Neg) U Marijuana (THC) Screen (Neg) Ethyl Alcohol mg/dL (<10.0) mg/dl SARS-CoV-2, RNA, NAAT (NEGATIVE) 08/28/22 08/28/22 08/28/22 Range/Units 19:06 19:06 19:06 WBC (4.8-10.8) K/ul RBC (3.93-5.22) M/uL Hgb (12.0-16.0) g/dl Hct (34.1-44.9) % MCV (80.0-100.0) fL MCH (25.0-34.0) pg MCHC (32.0-36.0) g/dL RDW Std Deviation (36.4-46.3) fL RDW Coeff of Ethel (11.5-14.5) % Plt Count (130-400) K/uL MPV (9.4-12.3) fL Immature Gran % (Auto) % Neut % (Auto) % Lymph % (Auto) % Robertson % (Auto) % Eos % (Auto) % Baso % (Auto) % Neut # (Auto) (1.4-6.5) K/uL Lymph # (Auto) (1.2-3.4) K/uL Robertson # (Auto) (0.24-0.82) K/uL Eos # (Auto) (0-0.50) K/uL Baso # (Auto) (0-0.2) K/uL Immature Gran # (Auto) (0.00-0.02) K/uL ESR 16 (0-30) mm/hr PT (9.0-12.0) Seconds INR (0.9-1.1) APTT (21.0-31.0) Seconds PTT Ratio VBG pH 7.31 L (7.36-7.41) VBG pCO2 65 H (38-50) mmHg VBG pO2 31 mmHg VBG HCO3 33 mmol/L VBG O2 Saturation < 60.0 % VBG Base Excess 4.4 mEq/L Sodium (136-145) mmol/L Potassium (3.5-5.1) mmol/L Chloride (98-107) mmol/L Carbon Dioxide (21-32) mmol/L Anion Gap (3-11) BUN (6-23) mg/dl Creatinine (0.6-1.2) mg/dl Est Cr Clr Drug Dosing Est GFR ( Amer) ml/min Est GFR (Non-Af Amer) ml/min BUN/Creatinine Ratio (10-20) Glucose (70-99(Fasting)) mg/dl POC Glucose (70-99) mg/dl Lactate (0.4-2.0) mmol/L Calcium (8.5-10.1) mg/dl Magnesium (1.7-2.4) mg/dl Total Bilirubin (0.2-1.0) mg/dl Direct Bilirubin (0-0.2) mg/dl AST (13-39) U/L ALT (7-52) U/L Alkaline Phosphatase (34-104) U/L Ammonia (18-72) umol/L Troponin I High Sens (0-14) pg/ml C-Reactive Protein (0-0.5) mg/dl Total Protein (6.0-8.3) gm/dl Albumin (3.4-5.0) gm/dl Lipase (11-82) U/L Procalcitonin (0-0.5) ng/ml Urine Color Urine Appearance (Clear) Urine pH (4.5-7.5) Ur Specific Dugger (1.000-1.030) Urine Protein (Negative) Urine Glucose (UA) (Negative) Urine Ketones (Negative) Urine Blood (Negative) Urine Nitrite (Negative) Urine Bilirubin (Negative) Urine Urobilinogen (Negative) Ur Leukocyte Esterase (Negative) Salicylates < 3.0 L (3.0-30) mg/dl Urine Opiates Screen (Neg) Ur Methadone, Qual (Neg) Acetaminophen < 3 L (10-30) ug/ml Urine Barbiturates (Neg) Ur Phencyclidine (PCP) (Neg) U Amphetamin/Meth Scrn (Neg) MDMA (Ecstasy) Screen (Neg) U Benzodiazepines Scrn (Neg) Ur Cocaine Metabolite (Neg) U Marijuana (THC) Screen (Neg) Ethyl Alcohol mg/dL (<10.0) mg/dl SARS-CoV-2, RNA, NAAT (NEGATIVE) 08/28/22 08/28/22 08/28/22 Range/Units 19:06 19:16 19:24 WBC (4.8-10.8) K/ul RBC (3.93-5.22) M/uL Hgb (12.0-16.0) g/dl Hct (34.1-44.9) % MCV (80.0-100.0) fL MCH (25.0-34.0) pg MCHC (32.0-36.0) g/dL RDW Std Deviation (36.4-46.3) fL RDW Coeff of Ethel (11.5-14.5) % Plt Count (130-400) K/uL MPV (9.4-12.3) fL Immature Gran % (Auto) % Neut % (Auto) % Lymph % (Auto) % Robertson % (Auto) % Eos % (Auto) % Baso % (Auto) % Neut # (Auto) (1.4-6.5) K/uL Lymph # (Auto) (1.2-3.4) K/uL Robertson # (Auto) (0.24-0.82) K/uL Eos # (Auto) (0-0.50) K/uL Baso # (Auto) (0-0.2) K/uL Immature Gran # (Auto) (0.00-0.02) K/uL ESR (0-30) mm/hr PT (9.0-12.0) Seconds INR (0.9-1.1) APTT (21.0-31.0) Seconds PTT Ratio VBG pH (7.36-7.41) VBG pCO2 (38-50) mmHg VBG pO2 mmHg VBG HCO3 mmol/L VBG O2 Saturation % VBG Base Excess mEq/L Sodium (136-145) mmol/L Potassium (3.5-5.1) mmol/L Chloride (98-107) mmol/L Carbon Dioxide (21-32) mmol/L Anion Gap (3-11) BUN (6-23) mg/dl Creatinine (0.6-1.2) mg/dl Est Cr Clr Drug Dosing Est GFR ( Amer) ml/min Est GFR (Non-Af Amer) ml/min BUN/Creatinine Ratio (10-20) Glucose (70-99(Fasting)) mg/dl POC Glucose (70-99) mg/dl Lactate (0.4-2.0) mmol/L Calcium (8.5-10.1) mg/dl Magnesium (1.7-2.4) mg/dl Total Bilirubin (0.2-1.0) mg/dl Direct Bilirubin (0-0.2) mg/dl AST (13-39) U/L ALT (7-52) U/L Alkaline Phosphatase (34-104) U/L Ammonia 23.0 (18-72) umol/L Troponin I High Sens (0-14) pg/ml C-Reactive Protein (0-0.5) mg/dl Total Protein (6.0-8.3) gm/dl Albumin (3.4-5.0) gm/dl Lipase (11-82) U/L Procalcitonin (0-0.5) ng/ml Urine Color Yellow Urine Appearance Clear (Clear) Urine pH 5.5 (4.5-7.5) Ur Specific Dugger 1.004 (1.000-1.030) Urine Protein Negative (Negative) Urine Glucose (UA) Negative (Negative) Urine Ketones Negative (Negative) Urine Blood Negative (Negative) Urine Nitrite Negative (Negative) Urine Bilirubin Negative (Negative) Urine Urobilinogen Negative (Negative) Ur Leukocyte Esterase Negative (Negative) Salicylates (3.0-30) mg/dl Urine Opiates Screen (Neg) Ur Methadone, Qual (Neg) Acetaminophen (10-30) ug/ml Urine Barbiturates (Neg) Ur Phencyclidine (PCP) (Neg) U Amphetamin/Meth Scrn (Neg) MDMA (Ecstasy) Screen (Neg) U Benzodiazepines Scrn (Neg) Ur Cocaine Metabolite (Neg) U Marijuana (THC) Screen (Neg) Ethyl Alcohol mg/dL 416.1 H (<10.0) mg/dl SARS-CoV-2, RNA, NAAT (NEGATIVE) 08/28/22 08/28/22 Range/Units 19:24 20:40 WBC (4.8-10.8) K/ul RBC (3.93-5.22) M/uL Hgb (12.0-16.0) g/dl Hct (34.1-44.9) % MCV (80.0-100.0) fL MCH (25.0-34.0) pg MCHC (32.0-36.0) g/dL RDW Std Deviation (36.4-46.3) fL RDW Coeff of Ethel (11.5-14.5) % Plt Count (130-400) K/uL MPV (9.4-12.3) fL Immature Gran % (Auto) % Neut % (Auto) % Lymph % (Auto) % Robertson % (Auto) % Eos % (Auto) % Baso % (Auto) % Neut # (Auto) (1.4-6.5) K/uL Lymph # (Auto) (1.2-3.4) K/uL Robertson # (Auto) (0.24-0.82) K/uL Eos # (Auto) (0-0.50) K/uL Baso # (Auto) (0-0.2) K/uL Immature Gran # (Auto) (0.00-0.02) K/uL ESR (0-30) mm/hr PT (9.0-12.0) Seconds INR (0.9-1.1) APTT (21.0-31.0) Seconds PTT Ratio VBG pH (7.36-7.41) VBG pCO2 (38-50) mmHg VBG pO2 mmHg VBG HCO3 mmol/L VBG O2 Saturation % VBG Base Excess mEq/L Sodium (136-145) mmol/L Potassium (3.5-5.1) mmol/L Chloride (98-107) mmol/L Carbon Dioxide (21-32) mmol/L Anion Gap (3-11) BUN (6-23) mg/dl Creatinine (0.6-1.2) mg/dl Est Cr Clr Drug Dosing Est GFR ( Amer) ml/min Est GFR (Non-Af Amer) ml/min BUN/Creatinine Ratio (10-20) Glucose (70-99(Fasting)) mg/dl POC Glucose (70-99) mg/dl Lactate (0.4-2.0) mmol/L Calcium (8.5-10.1) mg/dl Magnesium (1.7-2.4) mg/dl Total Bilirubin (0.2-1.0) mg/dl Direct Bilirubin (0-0.2) mg/dl AST (13-39) U/L ALT (7-52) U/L Alkaline Phosphatase (34-104) U/L Ammonia (18-72) umol/L Troponin I High Sens (0-14) pg/ml C-Reactive Protein (0-0.5) mg/dl Total Protein (6.0-8.3) gm/dl Albumin (3.4-5.0) gm/dl Lipase (11-82) U/L Procalcitonin (0-0.5) ng/ml Urine Color Urine Appearance (Clear) Urine pH (4.5-7.5) Ur Specific Dugger (1.000-1.030) Urine Protein (Negative) Urine Glucose (UA) (Negative) Urine Ketones (Negative) Urine Blood (Negative) Urine Nitrite (Negative) Urine Bilirubin (Negative) Urine Urobilinogen (Negative) Ur Leukocyte Esterase (Negative) Salicylates (3.0-30) mg/dl Urine Opiates Screen Neg (Neg) Ur Methadone, Qual Neg (Neg) Acetaminophen (10-30) ug/ml Urine Barbiturates Neg (Neg) Ur Phencyclidine (PCP) Neg (Neg) U Amphetamin/Meth Scrn Neg (Neg) MDMA (Ecstasy) Screen Neg (Neg) U Benzodiazepines Scrn Neg (Neg) Ur Cocaine Metabolite Neg (Neg) U Marijuana (THC) Screen Neg (Neg) Ethyl Alcohol mg/dL (<10.0) mg/dl SARS-CoV-2, RNA, NAAT NEGATIVE (NEGATIVE) Administered Medications Discontinued Medications Lidocaine (Lidocaine/Epineph/Tetracaine 1 Ea Syr) 1 each EXT NOW STA Stop: 08/28/22 19:11 Last Admin: 08/28/22 19:24 Dose: 1 each Documented By: [facility] Imaging Data Radiologist's Impression: Cervical Spine CT 08/28/22 18:26 CT cervical spine wo con CLINICAL HISTORY: ams TECHNIQUE: Multidetector row helical CT of the cervical spine was performed without administration of intravenous contrast. Coronal and sagittal reformations were obtained. Automated dose lowering techniques and/or adjustment according to patient size were utilized for this exam. Comparison: Comparison is made to CT cervical spine 10/15/2020 FINDINGS: No acute fractures or subluxations are identified. Degenerative changes are seen in the visualized spine. The alignment is normal. Soft tissues are unremarkable. IMPRESSION: Degenerative changes without evidence of acute bony injury. ACT 112: Negative or not required by law. Electronically signed by: Ritchie Cosby M.D. 08/28/2022 6:55 PM Chest X-Ray 08/28/22 18:26 XR chest 1V portable CLINICAL HISTORY: Sepsis TECHNIQUE: Single frontal radiograph of the chest was obtained. Comparison: Comparison is made to chest radiograph 05/21/2022 FINDINGS: No lines and tubes are seen. The cardiomediastinal silhouette is normal. The lungs are clear. No evidence of pleural effusion or pneumothorax. Old healed rib fractures are noted on the left. IMPRESSION: No acute abnormalities and in particular no evidence of pneumonia. ACT 112: Negative or not required by law. Electronically signed by: Ritchie Cosby M.D. 08/28/2022 7:[address] 08/28/22 18:26 CT head/brain wo con CLINICAL HISTORY: ams Technique: Contiguous axial CT images of the head were acquired from the base of the skull to the vertex without intravenous contrast administration. Images were viewed in brain, subdural and bone windows. Automated dose lowering techniques and/or adjustment according to patient size were utilized for this exam. Comparison: Comparison is made to CT head 05/21/2022 Findings: The ventricles, basal cisterns, and cerebral sulci are normal. There is no acute intracranial hemorrhage or evidence of acute territorial infarction. Neither mass effect, shift of the midline structures, nor abnormal extra-axial fluid collections are shown. Imaged portions of the paranasal sinuses and mastoid air cells are clear. The orbits appear normal. There are no acute fractures of the calvaria or scalp swelling. Impression: No acute intracranial hemorrhage, no evidence of acute territorial infarction or other acute intracranial disease process. ACT 112: Negative or not required by law. Electronically signed by: Ritchie Cosby M.D. 08/28/2022 6:58 PM Pelvis X-Ray 08/28/22 18:26 XR pelvis 1-2V routine CLINICAL HISTORY: ams TECHNIQUE: A single frontal view of the pelvis was obtained. Comparison: Comparison is made to pelvic radiograph 10/25/2020 FINDINGS: There is no evidence of an acute fracture. Degenerative changes are seen in the hip joints and lumbar spine. No soft tissue abnormality is seen. IMPRESSION: Degenerative changes without evidence of acute abnormality. ACT 112: Negative or not required by law. Electronically signed by: Ritchie Cosby M.D. 08/28/2022 7:45 PM Elbow X-Ray 08/28/22 19:10 XR elbow LT min 3V routine CLINICAL HISTORY: fall TECHNIQUE: 3 views of the right elbow were obtained. Comparison: None available at the time of this dictation. FINDINGS: There is no evidence of an acute fracture. Joint spaces are well-preserved. There is no prominence of the anterior or posterior fat pads to suggest an effusion. No soft tissue abnormality is seen. IMPRESSION: No evidence of acute osseous injury. ACT 112: Negative or not required by law. Electronically signed by: Ritchie Cosby M.D. 08/28/2022 7:48 PM Knee X-Ray 08/28/22 19:10 XR knee RT 1 or 2V routine CLINICAL HISTORY: fall TECHNIQUE: 2 views of the right knee were obtained. Comparison: None available at the time of this dictation. FINDINGS: There is no evidence of an acute fracture. Degenerative changes are seen in the knee joint. No joint effusion is seen. Vascular calcifications are noted. IMPRESSION: No evidence of acute osseous injury. ACT 112: Negative or not required by law. Electronically signed by: Ritchie Cosby M.D. 08/28/2022 7:50 PM Discharge Plan Visit Data Chief Complaint: Unresponsive Stated Complaint: Unresponsive s/p fall ED Provider: Pete Giles Discharge Problem: Acute head injury, Forehead laceration, Contusion of elbow, left, Contusion of knee, right, Acute alteration in mental status, Alcohol intoxication Patient Disposition: Being Evaluated by Hospitalist Forms Stand Alone Forms: [facility] Prescriptions Prescriptions: No Action Creon 6,000-19,000 -30,000 unit capsule,delayed release(DR/EC) 1 cap PO TID Qty: 90 5RF buspirone 15 mg tablet 15 mg PO BID Qty: 60 5RF duloxetine [Cymbalta] 20 mg capsule,delayed release(DR/EC) 20 mg PO HS Qty: 30 5RF Hold Instructions: does not take duloxetine [Cymbalta] 60 mg capsule,delayed release(DR/EC) 60 mg PO QAM Qty: 30 5RF (DME) FreeStyle Janny 2 Sensor Kit See Rx Instructions .Route Qty: 2 11RF Rx Instructions: change every 14 days atorvastatin 20 mg tablet 20 mg PO QPM Qty: 30 2RF (DME) blood-glucose meter Misc See Rx Instructions .Route Rx Instructions: Reli-On brand. Test blood sugar four times daily cholecalciferol (vitamin D3) 1,000 unit capsule 1,000 units PO HS (DME) Ketostix Strip See Rx Instructions miscellaneous .MEDSUPPLY Qty: 50 5RF Rx Instructions: Check urine for ketones if high blood sugar clobetasol 0.05 % solution 1 applic topical DAILY Qty: 50 2RF Rx Instructions: Apply to scalp once daily as needed for flaring. gabapentin 300 mg capsule 300 mg PO TID Qty: 90 5RF multivitamin Tablet 1 tab PO DAILY insulin aspart U-100 [Novolog Flexpen U-100 Insulin] 100 unit/mL (3 mL) insulin pen 33 unit subcut DAILY MDD 33 Qty: 2 3RF Rx Instructions: Inject 1 unit of insulin for each 10 grams of carb. Use scale of 150 target with correction factor of 30 insulin glargine [Lantus Solostar U-100 Insulin] 100 unit/mL (3 mL) insulin pen 40 unit subcut QPM MDD 50 Qty: 3 3RF cyanocobalamin (vitamin B-12) [Vitamin B-12] 1,000 mcg tablet 1,000 mcg PO DAILY diphenhydramine HCl [Benadryl Allergy] 25 mg Tablet 25 - 50 mg PO Q6H PRN (Reason: Allergy Symptoms) fluticasone propionate 50 mcg/actuation [place],Suspension 2 spray INTRANASAL DAILY PRN (Reason: Allergy Symptoms) ascorbic acid (vitamin C) [Vitamin C] 500 mg tablet 500 mg PO Q OTHER DAY Rx Instructions: 500 mg PO every other day; insulin asp prt-insulin aspart [Novolog Mix 70-30FlexPen U-100] 100 unit/mL (70-30) insulin pen 60 unit SUBCUT UD Rx Instructions: 35 units in the morning and 25 units in the evening folic acid 1 mg Tablet 1 mg PO DAILY Referrals Referrals: Ana Lilia Madrid MD [Primary Care Provider] -
--- NOTE | 2022-08-28 18:58 | CT Scan Report ---
CT cervical spine wo con CLINICAL HISTORY: ams TECHNIQUE: Multidetector row helical CT of the cervical spine was performed without administration of intravenous contrast. Coronal and sagittal reformations were obtained. Automated dose lowering techn iques and/or adjustment according to patient size were utilized for this exam. Comparison: Comparison is made to CT cervical spine 10/15/2020 FINDINGS: No acute fractures or subluxations are identified. Degenerative changes are seen in the visualized sp ine. The alignment is normal. Soft tissues are unremarkable. IMPRESSION: Degenerative changes without evidence of acute bony injury. ACT 112: Negative or not required by law. Electronically signed by: Ritchie Cosby M.D. 08/28/2022 6:55 PM
--- NOTE | 2022-08-28 18:59 | CT Scan Report ---
CT head/brain wo con CLINICAL HISTORY: ams Technique: Contiguous axial CT images of the head were acquired from the base of the skull to the jose werner without intravenous contrast administration. Images were viewed in brain, [facility]ural and [facility] Automated dose lowering techniques and/or adjustment according to patient size were utilized for this exam. Comparison: Comparison is made to CT head 05/21/2022 Findings: The ventricles, basal cisterns, and cerebral sulci are normal. There is no acute intracranial hemorrh age or evidence of acute territorial infarction. Neither mass effect, shift of the midline structures , nor abnormal extra-axial fluid collections are shown. Imaged portions of the paranasal sinuses and mastoid air cells are clear. The orbits appear normal. There are no acute fractures of the calvaria or scalp swelling. Impression: No acute intracranial hemorrhage, no evidence of acute territorial infarction or other acute intracra nial disease process. ACT 112: Negative or not required by law. Electronically signed by: Ritchie Cosby M.D. 08/28/2022 6:58 PM
[2022-08-28] MEDS ORDERED: LIDOCAINE/EPINEPH/TETRACAINE 1 EA SYR EXT STA (19:10)
[2022-08-28 19:17] LABS: Basophils # (auto) 0.11 K/uL (0-0.2); Basophils % (auto) 0.9 %; Eosinophils # (auto) 0.44 K/uL (0-0.50); Eosinophils % (auto) 3.7 %; Hematocrit (blood only) 44.8 % (34.1-44.9); Hemoglobin 15.6 g/dl (12.0-16.0); Immature Granulocytes # (auto) 0.05 K/uL (0.00-0.02); Immature Granulocytes % (auto) 0.4 %; Lymphocytes # (auto) 3.11 K/uL (1.2-3.4); Lymphocytes % (auto) 26.3 %; Mean Corpuscular Hemoglobin 30.5 pg (25.0-34.0); Mean Corpuscular Hgb Conc 34.8 g/dL (32.0-36.0); Mean Corpuscular Volume 87.7 fL (80.0-100.0); Mean Platelet Volume 9.5 fL (9.4-12.3); Monocytes # (auto) 0.48 K/uL (0.24-0.82); Monocytes % (auto) 4.1 %; Neutrophils # (auto) 7.65 K/uL (1.4-6.5); Neutrophils % (auto) 64.6 %; Platelet Count 329 K/uL (130-400); RDW Coefficient of Variation 13.2 % (11.5-14.5); RDW Standard Deviation 42.4 fL (36.4-46.3); Red Blood Count 5.11 M/uL (3.93-5.22); White Blood Count 11.84 K/ul (4.8-10.8)
[2022-08-28 19:21] LABS: Base Excess VBG 4.4 mEq/L; HCO3 VBG 33 mmol/L; Oxygen Saturation VBG < 60.0 %; PCO2 VBG 65 mmHg (38-50); PO2 VBG 31 mmHg; pH VBG 7.31 (7.36-7.41)
[2022-08-28 19:35] LABS: Partial Thromboplastin Ratio 0.9; Partial Thromboplastin Time 24.2 Seconds (21.0-31.0); Prothrombin Time 10.4 Seconds (9.0-12.0)
[2022-08-28 19:39] LABS: Acetaminophen < 3 ug/ml (10-30); Alanine Aminotransferase 20 U/L (7-52); Albumin Level 4.1 gm/dl (3.4-5.0); Alkaline Phosphatase 136 U/L (34-104); Anion Gap 10 (3-11); Aspartate Aminotransferase 19 U/L (13-39); BUN Creatinine Ratio 8.6 (10-20); Bilirubin Direct 0.1 mg/dl (0-0.2); Bilirubin,Total 0.3 mg/dl (0.2-1.0); Blood Urea Nitrogen 6 mg/dl (6-23); Calcium 9.2 mg/dl (8.5-10.1); Carbon Dioxide 27 mmol/L (21-32); Chloride 105 mmol/L (98-107); Est GFR (African American) 112.3 ml/min; Est GFR (Non-African American) 96.9 ml/min; Glucose 158 mg/dl (70-99(Fasting)); Lipase 9 U/L (11-82); Magnesium 2.2 mg/dl (1.7-2.4); Potassium 3.7 mmol/L (3.5-5.1); Salicylate < 3.0 mg/dl (3.0-30); Sodium 142 mmol/L (136-145); Total Protein 6.9 gm/dl (6.0-8.3)
[2022-08-28 19:43] LABS: Appearance Urine Clear (Clear); Bilirubin Urine Negative (Negative); Blood Urine Negative (Negative); Color Urine Yellow; Glucose Urine UA Negative (Negative); Ketones Urine Negative (Negative); Leukocyte Esterase Urine Negative (Negative); Nitrite Urine Negative (Negative); Protein Urine Negative (Negative); Specific Gravity Urine 1.004 (1.000-1.030); Urobilinogen Urine Negative (Negative); pH Urine 5.5 (4.5-7.5)
--- NOTE | 2022-08-28 19:44 | XRay Report ---
XR chest 1V portable CLINICAL HISTORY: Sepsis TECHNIQUE: Single frontal radiograph of the chest was obtained. Comparison: Comparison is made to chest radiograph 05/21/2022 FINDINGS: No lines and tubes are seen. The cardiomediastinal silhouette is normal. The lungs are clear. No evid ence of pleural effusion or pneumothorax. Old healed rib fractures are noted on the left. IMPRESSION: No acute abnormalities and in particular no evidence of pneumonia. ACT 112: Negative or not required by law. Electronically signed by: Ritchie Cosby M.D. 08/28/2022 7:43 PM
--- NOTE | 2022-08-28 19:46 | XRay Report ---
XR pelvis 1-2V routine CLINICAL HISTORY: ams TECHNIQUE: A single frontal view of the pelvis was obtained. Comparison: Comparison is made to pelvic radiograph 10/25/2020 FINDINGS: There is no evidence of an acute fracture. Degenerative changes are seen in the hip joints and lumbar spine. No soft tissue abnormality is seen. IMPRESSION: Degenerative changes without evidence of acute abnormality. ACT 112: Negative or not required by law. Electronically signed by: Ritchie Cosby M.D. 08/28/2022 7:45 PM
--- NOTE | 2022-08-28 19:49 | XRay Report ---
XR elbow LT min 3V routine CLINICAL HISTORY: fall TECHNIQUE: 3 views of the right elbow were obtained. Comparison: None available at the time of this dictation. FINDINGS: There is no evidence of an acute fracture. Joint spaces are well-preserved. There is no prominence of the anterior or posterior fat pads to suggest an effusion. No soft tissue abnormality is seen. IMPRESSION: No evidence of acute osseous injury. ACT 112: Negative or not required by law. Electronically signed by: Ritchie Cosby M.D. 08/28/2022 7:48 PM
--- NOTE | 2022-08-28 19:51 | XRay Report ---
XR knee RT 1 or 2V routine CLINICAL HISTORY: fall TECHNIQUE: 2 views of the right knee were obtained. Comparison: None available at the time of this dictation. FINDINGS: There is no evidence of an acute fracture. Degenerative changes are seen in the knee joint. No joint effusion is seen. Vascular calcifications are noted. IMPRESSION: No evidence of acute osseous injury. ACT 112: Negative or not required by law. Electronically signed by: Ritchie Cosby M.D. 08/28/2022 7:50 PM
[2022-08-28 20:50] LABS: Amphetamines+Metham, Urine Neg (Neg); Barbiturates, Urine Neg (Neg); Benzodiazepine, Urine Neg (Neg); Cocaine, Urine Neg (Neg); MDMA (Ecstacy), Urine Neg (Neg); Methadone, Urine Neg (Neg); Opiate, Urine Neg (Neg); Phencyclidine, Urine Neg (Neg)
--- NOTE | 2022-08-28 21:04 | History & Physical Report ---
Date of Service August 28, 2022 Assessment & Plan (1) Acute respiratory acidosis: (2) Hypoxia: (3) Alcohol intoxication: (4) Diabetes type 1, uncontrolled: (5) Acute head injury: (6) Forehead laceration: (7) Contusion of elbow, left: (8) Contusion of knee, right: (9) Acute alteration in mental status: (10) Alcohol abuse: (11) Dyslipidemia: (12) Diabetic peripheral neuropathy associated with type 1 diabetes mellitus: (13) History of GI bleed: (14) Psoriasis: (15) Liver cirrhosis: Nishant Rabago is a 56 year old female with history of alcohol abuse, dyslipidemia, DM1 w/ peripheral neuropathy, below knee amputation, liver cirrhosis, prior GI bleed, psoriasis, and encephalomalacia who presented via ambulance for evaluation of altered mental status and fall. Respiratory Acidosis a/w Hypoxemia (d/t Alcohol Intoxication) - Hx of fall at home w/ altered mental status noted by patient's mother - Patient arrived via EMS, GCS 3 - VBG showing acidosis (7.31) with elevated CO2 (65 H) on presentation, repeat VBG ordered - Toxicology indicated elevated ethyl alcohol level (416 H) on presentation - CMP remarkable for elevated Alk Phos (136 H), mild leukocytosis (11.84 H) - Bilateral mydriasis, reactive to light - 08/28 2100 - pt. follows simple commands but has primarily unintelligible speech, GCS 11 - Initiate AWSS protocol with PRN Ativan - Supplement Folic acid and Thiamine Fall w/ Injury (R Forehead, R Hand, L Arm, R Knee) - Imaging in ER negative for acute head, neck, arm, pelvis, or knee injury - S/p sutures to right forehead, associated ecchymosis, good hemostasis - Pt not complaining of pain @ 2100 - Monitor mental status d/t head injury Type 1 Diabetes Mellitus a/w Peripheral Neuropathy - Chronic - A/w peripheral neuropathy, s/p left below knee amputation - Initiated Insulin Glargine 30 units BID - Initiated Insulin Aspart w/ Carb Ratio 4 and Correction Factor 15 - BSG checks q4h - Continue home Gabapentin 300 mg PO TID - Continue home Creon capsule Dyslipidemia - Continue home Atorvastatin PO 20 mg Anxiety/Depression - Continue home Buspirone 15 mg PO BID - Continue home Duloxetine 60 mg PO QAM Psoriasis - Continue home Clobetasol 0.05% application daily FEN: Carb Count DM1 (start in AM as tolerated) Code status: Full Code (unable to discuss with patient d/t AMS, defer to hospitalist team) DVT ppx: SCD d/t hx of GI bleed Isolation: None Dispo:Med/Tele History of Present Illness Chief Complaint: Unresponsive Primary Care Provider: Ana Lilia Madrid MD Gem is a 56 year old female with history of alcohol abuse, dyslipidemia, DM1 w/ peripheral neuropathy, below knee amputation, liver cirrhosis, vitamin D deficiency, prior GI bleed, psoriasis, and encephalomalacia who presented via ambulance for evaluation of altered mental status. EMS Course: Hyperglycemic, received IV dextrose, remained obtunded. Mydriasis noted by EMS. No Narcan received. ED Course: EKG, CT Head/C-spine (w/o acute abnormality), XR Head/Pelvis/Elbow/Knee (w/o acute abnormality), Sutures to right forehead laceration HPI: Limited history from patient d/t altered mental status and unintelligible speech at time of visit. Family not present. Per chart review, patient's mother called 911, notes that patient fell and struck the right side of her head w/o loss of consciousness at 5 PM today. Patient's mother noted weakness/instability prior to the fall. Mother noted that patient ambulated back into her home and progressed to an obtunded state so she called EMS. Patient endorses daily cigarette use but cannot quantify. Patient denies alcohol use. Patient ultimately fixated on her cat. She denies headache, forehead pain, left arm/right hand pain, right knee pain, chest pain, dyspnea, pleuritic pain, abdominal pain, or bowel/bladder changes. Patient unable to recall her medications or medical history but notes that she does not use oxygen at baseline. She nods that she has been compliant with her DM1 management at home. Allergies Allergy/AdvReac Type Severity Reaction Status Date / Time haloperidol [From Haldol] AdvReac Unknown Unknown Verified 08/28/22 20:13 Home Medications Medication Instructions Recorded Confirmed Type cholecalciferol (vitamin D3) 25 1,000 units PO HS 06/23/19 08/28/22 History mcg (1,000 unit) capsule cyanocobalamin (vitamin B-12) 1,000 mcg PO DAILY 05/10/20 08/28/22 History 1,000 mcg tablet (Vitamin B-12) diphenhydramine HCl 25 mg tablet 25 - 50 mg PO Q6H PRN Allergy 10/25/20 08/28/22 History (Benadryl Allergy) Symptoms fluticasone propionate 50 2 spray intranasal DAILY PRN 10/25/20 08/28/22 History mcg/actuation nasal Allergy Symptoms spray,suspension acetone (urine) test (Ketostix #50 ea 04/12/21 08/28/22 Rx strips) blood-glucose meter 05/21/21 08/28/22 History ascorbic acid (vitamin C) 500 mg 500 mg PO Q OTHER DAY 07/04/21 08/28/22 History tablet (Vitamin C) multivitamin 1 tab PO DAILY 12/24/21 08/28/22 History gabapentin 300 mg capsule 300 mg PO TID #90 caps 04/01/22 08/28/22 Rx clobetasol 0.05 % scalp solution 1 applic topical DAILY #50 mL 04/22/22 08/28/22 Rx apsmcj-wrwgqfdu-ducecri 1 cap PO TID #90 caps 04/22/22 08/28/22 Rx 6,000-19,000-30,000 unit capsule,delayed rel (Creon) buspirone 15 mg tablet 15 mg PO BID #60 tabs 04/30/22 08/28/22 Rx duloxetine 20 mg capsule,delayed 20 mg PO HS #30 caps 04/30/22 08/28/22 Rx release (Cymbalta) duloxetine 60 mg capsule,delayed 60 mg PO QAM #30 caps 04/30/22 08/28/22 Rx release (Cymbalta) folic acid 1 mg tablet 1 mg PO DAILY 05/21/22 08/28/22 History insulin aspar prot-insulin aspart 60 unit subcut UD 05/21/22 08/28/22 History 100 unit/mL (70-30) subcutaneous pen (Novolog Mix 70-30FlexPen U-100) insulin aspart U-100 100 unit/mL 33 unit (0.33 mL) subcut DAILY #2 06/06/22 08/28/22 Rx (3 mL) subcutaneous pen (Novolog Boxes Flexpen U-100 Insulin aspart) insulin glargine 100 unit/mL (3 40 unit (0.4 mL) subcut QPM #3 06/06/22 08/28/22 Rx mL) subcutaneous pen (Lantus Boxes Solostar U-100 Insulin) flash glucose sensor (FreeStyle #2 ea 07/03/22 08/28/22 Rx Janny 2 Sensor kit) atorvastatin 20 mg tablet 20 mg PO QPM #30 tabs 07/22/22 08/28/22 Rx Past Med/Surg History Medical History Alcohol withdrawal seizure NOT REPORTED BY PATIENT AT TIME OF PAT CALL - LAST EPISODE OVER A YEAR AGO Aspiration pneumonia Caustic esophageal injury Chronic pancreatitis Cirrhosis of liver "COMPROMISED LIVER" Diabetes type 1, uncontrolled Diabetic peripheral neuropathy associated with type 1 diabetes mellitus Dysesthesia Dyslipidemia Encephalomalacia Exocrine pancreatic insufficiency History of alcohol abuse History of GI bleed Hydrosalpinx PT UNAWARE IPMN (intraductal papillary mucinous neoplasm) Imaging July 2020 follow-up yearly Leukopenia Lipoma NECK Polycystic ovarian syndrome Psoriasis SBO (small bowel obstruction) Resolved Thrombocytopenia Tobacco dependence Vitamin D deficiency Surgical History Amputation of left lower extremity TO APPROX MID CALF History of ankle surgery 02/2019 left ankle ex fix, grade 2 view with MAC 3 and 7.0 ETT History of tooth extraction Family History Uncle Diabetes Mother Breast cancer Sister Breast cancer Father Prostate cancer Other Family history of breast cancer in mother Family history of breast cancer in sister Denies family history of Ovarian cancer Myocardial infarction Colorectal cancer Social History Smoking Status: Current every day smoker Tobacco Type: Cigarettes packs per day: 0.75; Cigarettes Per Day: 15; Second Hand Exposure: No; Hx Alcohol Use: Yes Alcohol type: wine Preferred Language: Greenlandic Communication Ability: Effective Visual Impairment: No Limitations Pharmacy Tech Required: No Beliefs That Will Affect Care: None marital status: marital status details: no children Current Living Situation: Alone Current Living Situation Comment: unknown current occupational status: disabled Feels Safe at Home: Yes Assistive Devices: None Review of Systems Review of Systems: As per HPI Physical Exam Physical Exam: Gen: NAD, interactive but unintelligible Neuro: AO x ?, follows simple commands, 4/5 strength UE/LE, symmetric limb movement UE/LE HEENT: Supple, no LAD, no thyromegaly, no JVD - Bilateral mydriasis, PERRL, EOMI w/o pain Resp:Non-labored, bilateral expiratory wheezing in all lung mcgraw CV:RRR, normal S1/S2, no M/R/G Abd: Soft, non-distended, no TTP, normoactive bowels, no masses Extr: 2+ dp on right, left below knee amputation, no edema Skin: Sutured laceration with ecchymosis present on right forehead, superficial abrasions to right hand/left arm/right knee Results & Data Results & Data ([facility]) Vital Signs (Past 12 Hours) Vital Signs Temp Pulse Resp BP Pulse Ox O2 Del Method O2 Flow Rate 08/28/22 20:10 98 H 23 132/85 99 Oxymask 6 08/28/22 20:00 91 H 18 145/89 H 100 Oxymask 6 08/28/22 19:50 91 H 18 152/90 H 99 Oxymask 6 08/28/22 19:40 93 H 22 152/93 H 100 Oxymask 6 08/28/22 19:34 94 H 21 167/102 H 100 Oxymask 6 08/28/22 19:20 89 15 151/91 H 99 Oxymask 6 08/28/22 19:09 94 H 16 136/88 100 Oxymask 6 08/28/22 18:26 89 20 98 Oxymask 8 08/28/22 18:35 93 Oxymask 2 08/28/22 18:37 36.4 C L 89 12 169/93 H 93 Room Air Diagnostic Findings Laboratory Results WBC 11.84 K/ul (4.8-10.8) H 08/28/22 19:06 RBC 5.11 M/uL (3.93-5.22) 08/28/22 19:06 Hgb 15.6 g/dl (12.0-16.0) 08/28/22 19:06 Hct 44.8 % (34.1-44.9) 08/28/22 19:06 MCV 87.7 fL (80.0-100.0) 08/28/22 19:06 MCH 30.5 pg (25.0-34.0) 08/28/22 19:06 MCHC 34.8 g/dL (32.0-36.0) 08/28/22 19:06 RDW Std Deviation 42.4 fL (36.4-46.3) 08/28/22 19:06 RDW Coeff of Ethel 13.2 % (11.5-14.5) 08/28/22 19:06 Plt Count 329 K/uL (130-400) 08/28/22 19:06 MPV 9.5 fL (9.4-12.3) 08/28/22 19:06 Immature Gran % (Auto) 0.4 % 08/28/22 19:06 Neut % (Auto) 64.6 % 08/28/22 19:06 Lymph % (Auto) 26.3 % 08/28/22 19:06 [place] % (Auto) 4.1 % 08/28/22 19:06 Eos % (Auto) 3.7 % 08/28/22 19:06 Baso % (Auto) 0.9 % 08/28/22 19:06 Neut # (Auto) 7.65 K/uL (1.4-6.5) H 08/28/22 19:06 Lymph # (Auto) 3.11 K/uL (1.2-3.4) 08/28/22 19:06 [place] # (Auto) 0.48 K/uL (0.24-0.82) 08/28/22 19:06 Eos # (Auto) 0.44 K/uL (0-0.50) 08/28/22 19:06 Baso # (Auto) 0.11 K/uL (0-0.2) 08/28/22 19:06 Immature Gran # (Auto) 0.05 K/uL (0.00-0.02) H 08/28/22 19:06 ESR 16 mm/hr (0-30) 08/28/22 19:06 PT 10.4 Seconds (9.0-12.0) 08/28/22 19:06 INR 1.0 (0.9-1.1) 08/28/22 19:06 APTT 24.2 Seconds (21.0-31.0) 08/28/22 19:06 PTT Ratio 0.9 08/28/22 19:06 VBG pH 7.31 (7.36-7.41) L 08/28/22 19:06 VBG pCO2 65 mmHg (38-50) H 08/28/22 19:06 VBG pO2 31 mmHg 08/28/22 19:06 VBG HCO3 33 mmol/L 08/28/22 19:06 VBG O2 Saturation < 60.0 % 08/28/22 19:06 VBG Base Excess 4.4 mEq/L 08/28/22 19:06 Sodium 142 mmol/L (136-145) 08/28/22 19:06 Potassium 3.7 mmol/L (3.5-5.1) 08/28/22 19:06 Chloride 105 mmol/L (98-107) 08/28/22 19:06 Carbon Dioxide 27 mmol/L (21-32) 08/28/22 19:06 Anion Gap 10 (3-11) 08/28/22 19:06 BUN 6 mg/dl (6-23) 08/28/22 19:06 Creatinine 0.70 mg/dl (0.6-1.2) 08/28/22 19:06 Est Cr Clr Drug Dosing Not Reportable 08/28/22 19:06 Est GFR ( Amer) 112.3 ml/min 08/28/22 19:06 Est GFR (Non-Af Amer) 96.9 ml/min 08/28/22 19:06 BUN/Creatinine Ratio 8.6 (10-20) L 08/28/22 19:06 Glucose 158 mg/dl (70-99(Fasting)) H 08/28/22 19:06 POC Glucose 135 mg/dl (70-99) H 08/28/22 18:53 Lactate 1.9 mmol/L (0.4-2.0) 08/28/22 19:06 Calcium 9.2 mg/dl (8.5-10.1) 08/28/22 19:06 Magnesium 2.2 mg/dl (1.7-2.4) 08/28/22 19:06 Total Bilirubin 0.3 mg/dl (0.2-1.0) 08/28/22 19:06 Direct Bilirubin 0.1 mg/dl (0-0.2) 08/28/22 19:06 AST 19 U/L (13-39) 08/28/22 19:06 ALT 20 U/L (7-52) 08/28/22 19:06 Alkaline Phosphatase 136 U/L (34-104) H 08/28/22 19:06 Ammonia 23.0 umol/L (18-72) 08/28/22 19:06 Troponin I High Sens 3.0 pg/ml (0-14) 08/28/22 19:06 C-Reactive Protein 0.60 mg/dl (0-0.5) H 08/28/22 19:06 Total Protein 6.9 gm/dl (6.0-8.3) 08/28/22 19:06 Albumin 4.1 gm/dl (3.4-5.0) 08/28/22 19:06 Lipase 9 U/L (11-82) L 08/28/22 19:06 Procalcitonin < 0.05 ng/ml (0-0.5) 08/28/22 19:06 Urine Color Yellow 08/28/22 19:24 Urine Appearance Clear (Clear) 08/28/22 19:24 Urine pH 5.5 (4.5-7.5) 08/28/22 19:24 Ur Specific [place] 1.004 (1.000-1.030) 08/28/22 19:24 Urine Protein Negative (Negative) 08/28/22 19:24 Urine Glucose (UA) Negative (Negative) 08/28/22 19:24 Urine Ketones Negative (Negative) 08/28/22 19:24 Urine Blood Negative (Negative) 08/28/22 19:24 Urine Nitrite Negative (Negative) 08/28/22 19:24 Urine Bilirubin Negative (Negative) 08/28/22 19:24 Urine Urobilinogen Negative (Negative) 08/28/22 19:24 Ur Leukocyte Esterase Negative (Negative) 08/28/22 19:24 Salicylates < 3.0 mg/dl (3.0-30) L 08/28/22 19:06 Urine Opiates Screen Neg (Neg) 08/28/22 19:24 Ur Methadone, Qual Neg (Neg) 08/28/22 19:24 Acetaminophen < 3 ug/ml (10-30) L 08/28/22 19:06 Urine Barbiturates Neg (Neg) 08/28/22 19:24 Ur Phencyclidine (PCP) Neg (Neg) 08/28/22 19:24 U Amphetamin/Meth Scrn Neg (Neg) 08/28/22 19:24 MDMA (Ecstasy) Screen Neg (Neg) 08/28/22 19:24 U Benzodiazepines Scrn Neg (Neg) 08/28/22 19:24 Ur Cocaine Metabolite Neg (Neg) 08/28/22 19:24 U Marijuana (THC) Screen Neg (Neg) 08/28/22 19:24 Ethyl Alcohol mg/dL 416.1 mg/dl (<10.0) H 08/28/22 19:[address] 08/28/22 18:26 IMPRESSION: Degenerative changes without evidence of acute bony injury. Chest X-Ray 08/28/22 18:26 IMPRESSION: No acute abnormalities and in particular no evidence of pneumonia. Head CT 08/28/22 18:26 Impression: No acute intracranial hemorrhage, no evidence of acute territorial infarction or other acute intracranial disease process. Pelvis X-Ray 08/28/22 18:26 IMPRESSION: Degenerative changes without evidence of acute abnormality. Elbow X-Ray 08/28/22 19:10 IMPRESSION: No evidence of acute osseous injury. Knee X-Ray 08/28/22 19:10 IMPRESSION: No evidence of acute osseous injury. Code Status & VTE Plan Code Status Full Code (unable to discuss with patient d/t AMS, recommend day-team discussion with patient) Supervising Physician Co-Signing Physician Notes Attending addendum: I have physically seen this patient, have supervised the medical residents activities, and agree with the H&P unless as otherwise noted. Assessment and Plan: Alcohol intoxication causing fall with head injury- Admit to monitored bed, follow for withdrawal Alcohol level 416.1 Placed on alcohol withdrawal protocol All imaging negative: CT head, CT cervical spine, chest x-ray, pelvis x-ray, left elbow x-ray and right knee x-ray Thiamine 100 mg p.o. daily Folic acid 1 mg p.o. daily Nephrocaps 1 p.o. daily Alcohol cessation counseling Diabetes mellitus- Insulin glargine as noted, 30 units subcu twice daily Accu-Cheks with NovoLog SSI Check hemoglobin A1c Continue gabapentin and Creon Dyslipidemia- Continue atorvastatin Check a fasting lipid panel Remaining orders and notations as noted Remaining orders and notations as noted Resident Activity Tracking Resident Involvement: Resident Care Provided Care Provided: Adult Hospital Medicine (1) Acute head injury Encounter type: initial encounter Qualified Code(s): S09.90XA - Unspecified injury of head, initial encounter (2) Alcohol intoxication Complication of substance-induced condition: uncomplicated Qualified Code(s): F10.920 - Alcohol use, unspecified with intoxication, uncomplicated (3) Liver cirrhosis Ascites presence: without ascites Hepatic cirrhosis type: alcoholic cirrhosis Qualified Code(s): K70.30 - Alcoholic cirrhosis of liver without ascites (4) Forehead laceration Encounter type: initial encounter Qualified Code(s): S01.81XA - Laceration without foreign body of other part of head, initial encounter (5) Contusion of elbow, left Encounter type: initial encounter Qualified Code(s): S50.02XA - Contusion of left elbow, initial encounter (6) Contusion of knee, right Encounter type: initial encounter Qualified Code(s): S80.01XA - Contusion of right knee, initial encounter
--- NOTE | 2022-08-28 21:23 | Emergency Department Note ---
ED Visit Note I was asked by Dr. Giles to repair the lacerations on the patient's forehead. Please see his dictation regarding complete management care of this patient. There are 2 lacerations on the right side of patient's forehead. The first laceration is 1 cm in length, right at the hairline. The second laceration is 2 cm in length, superior to the right eyebrow. This laceration does gape apart and extend to the galea. There is no active bleeding of either laceration at this time. PROCEDURE NOTE: Verbal consent was obtained to perform the procedure. LET gel had been applied to the wound and allowed to sit for greater than 1 hour. After appropriate anesthetization, using sterile technique the wound was cleaned with Betadine. The area was sterilely draped. The wound was copiously irrigated under pressure with sterile saline. The wounds were explored and there were no deep structures injured such as tendons, bone, or significant blood vessels. The first laceration was repaired using 2 simple interrupted 6-0 nylon sutures with the wound edges being well approximated. The second laceration was repaired using 1 simple interrupted 6-0 Vicryl suture to close the galea and 4 simple interrupted 6-0 nylon sutures to close the skin layer with the wound edges being well approximated. The patient tolerated the procedure well. Hemostasis was achieved. The area was cleaned with sterile saline and dressed with bacitracin ointment. The sutures will need to be removed in approximately 7 to 8 days. This can be completed by the primary care provider or the patient may return to the emergency department for suture removal. Please keep the wound moist and greasy utilizing a thin layer of bacitracin ointment.
[2022-08-28 22:53] LABS: Base Excess VBG 5.3 mEq/L; HCO3 VBG 33 mmol/L; PCO2 VBG 63 mmHg (38-50); PO2 VBG 42 mmHg; pH VBG 7.33 (7.36-7.41)
[2022-08-28] MEDS ORDERED: DEXTROSE 50% 50 ML SYRINGE IV PRN (23:10)
[2022-08-28] MEDS ORDERED: CARBOHYDRATES FOR HYPOGLYCEMIA PO PRN (23:10)
[2022-08-28] MEDS ORDERED: LORazepam 1 MG in SYRINGE 0 ML IV PRN (23:10)
[2022-08-28] MEDS ORDERED: GLUCOSE 10 TAB/TUBE PO PRN (23:10)
[2022-08-28] MEDS ORDERED: LORazepam 2 MG in SYRINGE 0 ML IV PRN (23:10)
[2022-08-28] MEDS ORDERED: LORazepam 3 MG in SYRINGE 0 ML IV PRN (23:10)
[2022-08-28] MEDS ORDERED: Ativan IV Alcohol Withdrawal--Active Protocol IV PRN (23:10)
[2022-08-28] MEDS ORDERED: GLUCAGON FOR INJ 1 MG VIAL SQ PRN (23:10)
[2022-08-28] MEDS ORDERED: GLUCOSE 40% GEL 15 GM TUBE PO PRN (23:10)
[2022-08-29] MEDS: LACTATED RINGER'S 1,000 ML IV SCH ×2 (00:21→10:51)
[2022-08-29] MEDS: FOLIC ACID 1 MG in SYRINGE 9.8 ML IV SCH ×3 (00:21→10:32)
[2022-08-29] MEDS: THIAMINE HCL 100 MG in SYRINGE 9 ML IV SCH ×3 (00:22→10:32)
[2022-08-29] MEDS: INSULIN ASPART PER UNIT SC SCH ×2 (00:32→08:01)
[2022-08-29] MEDS ORDERED: FLUARIX QUADRIVALENT 0.5 ML SYR IM ONE (01:54)
[2022-08-29 06:23] LABS: Hematocrit (blood only) 42.7 % (34.1-44.9); Hemoglobin 14.6 g/dl (12.0-16.0); Mean Corpuscular Hemoglobin 30.2 pg (25.0-34.0); Mean Corpuscular Hgb Conc 34.2 g/dL (32.0-36.0); Mean Corpuscular Volume 88.4 fL (80.0-100.0); Mean Platelet Volume 9.5 fL (9.4-12.3); Platelet Count 362 K/uL (130-400); RDW Coefficient of Variation 13.4 % (11.5-14.5); RDW Standard Deviation 43.7 fL (36.4-46.3); Red Blood Count 4.83 M/uL (3.93-5.22)
[2022-08-29 06:50] LABS: Alanine Aminotransferase 20 U/L (7-52); Albumin Globulin Ratio 1.4 (0.9-2); Albumin Level 3.7 gm/dl (3.4-5.0); Alkaline Phosphatase 137 U/L (34-104); Anion Gap 9 (3-11); Aspartate Aminotransferase 18 U/L (13-39); BUN Creatinine Ratio 14.8 (10-20); Bilirubin,Total 0.3 mg/dl (0.2-1.0); Blood Urea Nitrogen 8 mg/dl (6-23); Calcium 8.4 mg/dl (8.5-10.1); Carbon Dioxide 27 mmol/L (21-32); Chloride 108 mmol/L (98-107); Est GFR (African American) 122.3 ml/min; Est GFR (Non-African American) 105.5 ml/min; Globulin 2.6 gm/dl (2.5-4.0); Glucose 73 mg/dl (70-99(Fasting)); Potassium 3.8 mmol/L (3.5-5.1); Sodium 144 mmol/L (136-145); Total Protein 6.3 gm/dl (6.0-8.3)
[2022-08-29] MEDS: PANCREAZE (LIPASE 4,200U) CAP PO SCH ×2 (08:03→10:32)
[2022-08-29] MEDS: busPIRone 15 MG TAB PO SCH ×2 (08:04→10:32)
[2022-08-29] MEDS: FOLIC ACID 1 MG TAB PO SCH ×2 (08:04→10:32)
[2022-08-29] MEDS: DULoxetine HCL 60 MG CAP PO SCH ×2 (08:05→10:32)
[2022-08-29] MEDS: GABAPENTIN 300 MG CAP PO SCH ×2 (08:05→10:32)
[2022-08-29] MEDS ORDERED: LANTUS PER UNIT CHARGE SQ SCH (09:00)
--- NOTE | 2022-08-29 10:18 | Electrocardiogram Report ---
Test Reason : Blood Pressure : / mmHG Vent. Rate : 089 BPM Atrial Rate : 089 BPM P-R Int : 160 ms QRS Dur : 080 ms QT Int : 376 ms P-R-T Axes : 077 080 081 degrees QTc Int : 457 ms Normal sinus rhythm Normal ECG When compared with ECG of 21-MAY-2022 18:28, No significant change Confirmed by Darnell Vicente ([id number]) on 08/29/2022 10:18:25 AM Referred By: REFERRED SELF Confirmed By:Darnell Vicente
--- NOTE | 2022-08-29 13:47 | Discharge Summary ---
Date of Service August 29, 2022 Admission HPI Per Admitting Provider Gem is a 56 year old female with history of alcohol abuse, dyslipidemia, DM1 w/ peripheral neuropathy, below knee amputation, liver cirrhosis, vitamin D deficiency, prior GI bleed, psoriasis, and encephalomalacia who presented via ambulance for evaluation of altered mental status. EMS Course: Hyperglycemic, received IV dextrose, remained obtunded. Mydriasis noted by EMS. No Narcan received. ED Course: EKG, CT Head/C-spine (w/o acute abnormality), XR Head/Pelvis/Elbow/Knee (w/o acute abnormality), Sutures to right forehead laceration HPI: Limited history from patient d/t altered mental status and unintelligible speech at time of visit. Family not present. Per chart review, patient's mother called 911, notes that patient fell and struck the right side of her head w/o loss of consciousness at 5 PM today. Patient's mother noted weakness/instability prior to the fall. Mother noted that patient ambulated back into her home and progressed to an obtunded state so she called EMS. Patient endorses daily cigarette use but cannot quantify. Patient denies alcohol use. Patient ultimately fixated on her cat. She denies headache, forehead pain, left arm/right hand pain, right knee pain, chest pain, dyspnea, pleuritic pain, abdominal pain, or bowel/bladder changes. Patient unable to recall her medications or medical history but notes that she does not use oxygen at baseline. She nods that she has been compliant with her DM1 management at home. Principal Diagnosis alcohol intoxication, Fall Discharge Exam The patient is awake, alert and oriented 3, well developed and well nourished, normocephalic and atraumatic, lying in bed and in no acute distress. HEENT--PERRL, EOMI, mucous membranes and oropharynx mildly dry Neck--supple. No JVD. No bruits. Thyroid normal, trachea midline, no adenopathy. Heart--normal S1 and S2. No murmurs, rubs or gallops. Lungs--clear bilaterally, no respiratory distress, no accessory muscle use. Abdomen--normal bowel sounds and soft. Mild epigastric and left sided abdominal pain Extremities--no cyanosis or clubbing. No edema. Dermatologic--normal skin turgor, normal color, no abnormal lymph nodes, no rash. Neurologic--cranial nerves II through XII grossly intact. Rheumatologic--normal range of motion. Psychiatric--normal affect. Discharge Data Allergies Allergy/AdvReac Type Severity Reaction Status Date / Time haloperidol [From Haldol] AdvReac Unknown Unknown Verified 08/28/22 20:13 Consultations 08/28/22 20:57 ED Decision to Admit Stat Ordered Studies 08/28/22 18:26 CT cervical spine wo con Stat CT head/brain wo con Stat Hospital Course (1) Alcohol intoxication: Gem is a 56 year old female with history of alcohol abuse, dyslipidemia, DM1 w/ peripheral neuropathy, below knee amputation, liver cirrhosis, prior GI bleed, psoriasis, and encephalomalacia who presented via ambulance for evaluation of altered mental status and fall. Found to have elevated blood alcohol level Plan Gem is a 56 year old female with history of alcohol abuse, dyslipidemia, DM1 w/ peripheral neuropathy, below knee amputation, liver cirrhosis, prior GI bleed, psoriasis, and encephalomalacia who presented via ambulance for evaluation of altered mental status and fall. Respiratory Acidosis a/w Hypoxemia (d/t Alcohol Intoxication) - Hx of fall at home w/ altered mental status noted by patient's mother - Patient arrived via EMS, GCS 3 - VBG showing acidosis (7.31) with elevated CO2 (65 H) on presentation, repeat VBG ordered. Most likley due to alcohol - Toxicology indicated elevated ethyl alcohol level (416 H) on presentation - CMP remarkable for elevated Alk Phos (136 H), mild leukocytosis (11.84 H) -Upon re evaluation this morning, patient awake, alert, oriented x 3 -Expressed a willingness to be discharged Fall w/ Injury (R Forehead, R Hand, L Arm, R Knee) - Imaging in ER negative for acute head, neck, arm, pelvis, or knee injury - S/p sutures to right forehead, associated ecchymosis, good hemostasis - Pt not complaining of pain - Monitor mental status d/t head injury Type 1 Diabetes Mellitus a/w Peripheral Neuropathy - Chronic - A/w peripheral neuropathy, s/p left below knee amputation - Initiated Insulin Glargine 30 units BID - Initiated Insulin Aspart w/ Carb Ratio 4 and Correction Factor 15 - BSG checks q4h - Continue home Gabapentin 300 mg PO TID - Continue home Creon capsule Dyslipidemia - Continue home Atorvastatin PO 20 mg Anxiety/Depression - Continue home Buspirone 15 mg PO BID - Continue home Duloxetine 60 mg PO QAM Psoriasis - Continue home Clobetasol 0.05% application daily FEN: Carb Count DM1 (start in AM as tolerated) Code status: Full Code (unable to discuss with patient d/t AMS, defer to hospitalist team) DVT ppx: SCD d/t hx of GI bleed Isolation: None Dispo:Med/Tele Total Time Total Time Spent Total Time Spent (In Minutes): 35 Discharge Plan Discharge Items Patient Disposition: Home - Self-Care Reason For Visit: RESPIRATORY ACIDOSIS/HPOXIA/ALCOHOL INTOXICATION Discharge Diagnosis: alcohol intoxication, fall Activity: Resume your previous activity Non-emergency contact: Primary Care Provider Call non-emergency contact if: you have any medication questions Follow-up/Referrals: Ana Lilia Madrid MD [Primary Care Provider] - Diet: Regular Addtl Attending Provider Instructions: please make appointment to follow up with your PCP Please abstain from alcohol as you have been adviced several times Pending Studies at Discharge: No Stand-Alone Forms: [facility] [employer] Smoking Cessation Medications and DC Order Prescriptions: Continued Creon 6,000-19,000 -30,000 unit capsule,delayed release(DR/EC) 1 cap PO TID Qty: 90 5RF buspirone 15 mg tablet 15 mg PO BID Qty: 60 5RF duloxetine [Cymbalta] 20 mg capsule,delayed release(DR/EC) 20 mg PO HS Qty: 30 5RF Hold Instructions: does not take duloxetine [Cymbalta] 60 mg capsule,delayed release(DR/EC) 60 mg PO QAM Qty: 30 5RF (DME) FreeStyle Janny 2 Sensor Kit See Rx Instructions .Route Qty: 2 11RF Rx Instructions: change every 14 days atorvastatin 20 mg tablet 20 mg PO QPM Qty: 30 2RF (DME) blood-glucose meter Misc See Rx Instructions .Route Rx Instructions: Reli-On brand. Test blood sugar four times daily cholecalciferol (vitamin D3) 1,000 unit capsule 1,000 units PO HS (DME) Ketostix Strip See Rx Instructions miscellaneous .MEDSUPPLY Qty: 50 5RF Rx Instructions: Check urine for ketones if high blood sugar clobetasol 0.05 % solution 1 applic topical DAILY Qty: 50 2RF Rx Instructions: Apply to scalp once daily as needed for flaring. gabapentin 300 mg capsule 300 mg PO TID Qty: 90 5RF multivitamin Tablet 1 tab PO DAILY insulin aspart U-100 [Novolog Flexpen U-100 Insulin] 100 unit/mL (3 mL) insulin pen 33 unit subcut DAILY MDD 33 Qty: 2 3RF Rx Instructions: Inject 1 unit of insulin for each 10 grams of carb. Use scale of 150 target with correction factor of 30 insulin glargine [Lantus Solostar U-100 Insulin] 100 unit/mL (3 mL) insulin pen 40 unit subcut QPM MDD 50 Qty: 3 3RF cyanocobalamin (vitamin B-12) [Vitamin B-12] 1,000 mcg tablet 1,000 mcg PO DAILY diphenhydramine HCl [Benadryl Allergy] 25 mg Tablet 25 - 50 mg PO Q6H PRN (Reason: Allergy Symptoms) fluticasone propionate 50 mcg/actuation Prosperity,Suspension 2 spray INTRANASAL DAILY PRN (Reason: Allergy Symptoms) ascorbic acid (vitamin C) [Vitamin C] 500 mg tablet 500 mg PO Q OTHER DAY Rx Instructions: 500 mg PO every other day; insulin asp prt-insulin aspart [Novolog Mix 70-30FlexPen U-100] 100 unit/mL (70-30) insulin pen 60 unit SUBCUT UD Rx Instructions: 35 units in the morning and 25 units in the evening folic acid 1 mg Tablet 1 mg PO DAILY Discharge Orders: Discharge Order (Routine); Ordered 08/29/22 Ordered By: Dionicio Goodson Admission Data Admit Date/Time: 08/28/22 22:08 Attending Provider: Dionicio Goodson Admit Provider: Madi Veliz Primary Care Provider: Ana Lilia Madrid V. Other Providers: Adelso Younger Other Interventions: Discharge Summary Assessment (RN) Last Done: 08/29/22 11:34 Coding Level of Care Code D/C DAY MANAGEMENT >30 MINS Diagnoses Alcohol intoxication F10.920 Complication of substance-induced condition: uncomplicated Time Spent (min) 35
[2022-08-29] MEDS ORDERED: DULoxetine HCL 20 MG CAP PO SCH (21:00)
[2022-08-29] MEDS ORDERED: ATORVASTATIN 20 MG TAB PO SCH (21:00)
[2022-08-30 07:31] LABS: Estimated Average Glucose 229 mg/dl; Hemoglobin A1C 9.6 % (4.5-5.6)
--- NOTE | 2022-08-30 20:13 | Billing Data ---
Date of Service August 30, 2022 Coding Level of Care Code 89200 Initial Inpt Care Lvl 3
== END 2022-08-29 12:30 | disposition home or self-care (01) | DRG 897 ==
LOC: ED 18:24 → 2S 22:08 → SUATTDRO 22:08 → 2S 22:32

== ENCOUNTER 2022-12-23 15:05 | Inpatient (IN) ==
[2022-12-23] MEDS ORDERED: SODIUM CHLORIDE 0.9% 1000ML 1,000 ML IV ONE ×2 (15:58→16:45)
[2022-12-23] MEDS ORDERED: ACETAMINOPHEN 1,000 MG/100 ML VIAL IV STA (16:27)
--- NOTE | 2022-12-23 16:35 | Emergency Department Note ---
Impression & Plan Weakness, Acute dehydration, Acute hyperglycemia, Hypokalemia, Acute hyponatremia, Hypochloremia, Oral thrush ED Provider Note NAME: NANCY CORREA AGE: 56 SEX: F : 1965 ARRIVES VIA: Ambulance INFORMANT: [Patient] ED PROVIDER(S): [Lauro Porter MD] CHIEF COMPLAINT: Illness HISTORY OF PRESENT ILLNESS: The patient is a 56-year-old female who presents to the ER for weakness. The patient has been basically bedridden for 3 weeks. She has been incontinent of stool. Her mother came to the house today and found her house a mess and everything was dirty and unkept. As per EMS, blood sugar was 470. The patient complains of a severe sore throat for the last 3 weeks. She cannot swallow. She feels very thirsty. She has not been taking her meds. Patient admits to some vomiting, no diarrhea. She has been coughing. No fever but she has noticed some chills. No abdominal pain or urinary complaints. The patient has a history of alcohol abuse although, that has not been an issue lately. She does live alone. PMHx/PSHx: See Below SOCIAL HISTORY: See Below. PHYSICAL EXAM: GENERAL: Patient is in no acute distress. Hoarse voice. HEENT: No acute trauma, normocephalic atraumatic, mucous membranes markedly dry. She has throat erythema with thrush throughout the posterior pharynx and cheeks. No uvular edema. NECK: No stridor, no adenopathy, no meningismus, trachea is midline. LUNGS: Few scattered crackles heard bilaterally, no wheezing, no respiratory distress, breath sounds equal. HEART: 2/6 systolic murmur, mildly tachycardic, regular rhythm. ABDOMEN: Soft, nontender, bowel sounds positive, no peritonitis. EXTREMITIES: No cyanosis or edema, full range of motion of all the joints without pain or difficulty. There is a left below the knee amputation. NEUROLOGIC: Oriented x 3, no acute motor or sensory deficits, no focal weakness. SKIN: No rash, no jaundice, no diaphoresis. DIFFERENTIAL DIAGNOSIS: DKA, hyperglycemia, dehydration, thrush, viral illness, pneumonia, strep pharyngitis, acidosis, renal or liver failure, UTI, among others. EMERGENCY DEPARTMENT COURSE/PROCEDURES: Prior/Outside records reviewed: Outpatient doctor notes. ECG per my interpretation: Indication was weakness. The ECG shows a sinus tachycardia with a rate of 101. The QTc is prolonged at 531. There is no ST elevation. There is some diffuse nonspecific ST change. No PVCs. Continuous Cardiac Monitoring per my interpretation: An order was placed for continuous cardiac monitoring. The monitor shows a rate of 105 with sinus tachycardia. Critical Care Note: I have personally spent 53 minutes of critical care time in the direct management of this patient. This includes bedside care, interpretation of diagnostic studies, and testing, discussion with consultants, patient, and family members, and other required patient management activities. This 53 minutes is in excess of all separately billable procedures. MEDICAL DECISION MAKING: There is no leukocytosis or concerning anemia. Platelet count was low at 80. VBG did not show any significant acidosis. Sodium and potassium are low. Chloride was low. There was an anion gap present. Glucose was high at around 400. Lactic acid level was elevated consistent with infection and/or dehydration. There were some subtle liver enzyme elevations noted. Cardiac troponin was slightly elevated, this could indicate cardiac ischemia or potentially just mismatch. Lipase was not elevated. Procalcitonin level was not elevated. The patient appeared to be in a euthyroid state. COVID test returned negative. RSV and influenza test returned negative. Strep test was negative. Alcohol level was undetectable. Chest film did not show pneumonia or CHF per my review. Soft tissue neck CT did not show any pathology, no fullness, the airway was patent. ECG showed a sinus tachycardia with a prolonged QT, no ST elevation. On exam, the patient had obvious oral thrush. She appeared quite dehydrated. Patient received IV saline, 2 L. She was ordered for IV potassium x2 bags. She was given a clotrimazole kartik orally. She was given IV Tylenol for pain. The patient is clearly in need of a hospital stay. She has significant electrolyte abnormalities. She is quite dehydrated, she has oral thrush. I did speak with the patient and case management, the on-call hospitalist has been consulted. DISPOSITION: Patient's presentation and findings warrant a hospital stay. Past Med/Surg History Medical History Acute head injury Alcohol withdrawal seizure NOT REPORTED BY PATIENT AT TIME OF PAT CALL - LAST EPISODE OVER A YEAR AGO Aspiration pneumonia Caustic esophageal injury Chronic pancreatitis Cirrhosis of liver "COMPROMISED LIVER" Depression with anxiety Unable to establish with psychiatrist Diabetes type 1, uncontrolled Diabetes type 1, uncontrolled Diabetic peripheral neuropathy associated with type 1 diabetes mellitus Dysesthesia Dyslipidemia Encephalomalacia Exocrine pancreatic insufficiency History of alcohol abuse History of GI bleed History of left below knee amputation Hydrosalpinx PT UNAWARE Hypoxia IPMN (intraductal papillary mucinous neoplasm) Imaging July 2020 follow-up yearly Left against medical advice Leukopenia Lipoma NECK Polycystic ovarian syndrome Psoriasis SBO (small bowel obstruction) Resolved Thrombocytopenia Tobacco dependence Vitamin D deficiency Surgical History Amputation of left lower extremity TO APPROX MID CALF History of ankle surgery 02/2019 left ankle ex fix, grade 2 view with MAC 3 and 7.0 ETT History of tooth extraction Family History Uncle Diabetes Mother Breast cancer Sister Breast cancer Father Prostate cancer Other Family history of breast cancer in mother Family history of breast cancer in sister Denies family history of Ovarian cancer Myocardial infarction Colorectal cancer Social History Smoking Status: Current every day smoker Tobacco Type: Cigarettes packs per day: 0.75; Cigarettes Per Day: 1/2 pack; Second Hand Exposure: No; Do You Dip or Chew Tobacco: No; Hx Alcohol Use: Yes Alcohol type: wine Hx Substance Use: Yes Preferred Language: Kiswahili Communication Ability: Effective Visual Impairment: No Limitations Applications Project Manager Required: No Beliefs That Will Affect Care: None marital status: marital status details: no children Current Living Situation: Alone Current Living Situation Comment: unknown current occupational status: disabled Other Information That Helps Us Care for You: No Feels Safe at Home: Yes Safety Concerns: Feels Safe At This Time Assistive Devices: Cane, Prosthesis, Walker and Wheelchair Allergies Allergies Allergy/AdvReac Type Severity Reaction Status Date / Time haloperidol [From Haldol] AdvReac Unknown Unknown Verified 10/01/22 14:39 Home Meds Home Medications Medication Instructions Recorded Confirmed cholecalciferol (vitamin D3) 25 1,000 units PO HS 06/23/19 12/23/22 mcg (1,000 unit) capsule cyanocobalamin (vitamin B-12) 1,000 mcg PO DAILY 05/10/20 12/23/22 1,000 mcg tablet (Vitamin B-12) diphenhydramine HCl 25 mg tablet 25 - 50 mg PO Q6H PRN Allergy 10/25/20 12/23/22 (Benadryl Allergy) Symptoms ascorbic acid (vitamin C) 500 mg 500 mg PO Q OTHER DAY 07/04/21 12/23/22 tablet (Vitamin C) multivitamin 1 tab PO DAILY 12/24/21 12/23/22 folic acid 1 mg tablet 1 mg PO DAILY 05/21/22 12/23/22 clobetasol 0.05 % scalp solution 1 applic topical DAILY PRN flare 12/23/22 12/23/22 Previous Rx's Medication Instructions Recorded buspirone 15 mg tablet 15 mg PO BID #60 tabs 04/30/22 insulin aspart U-100 100 unit/mL 33 unit (0.33 mL) subcut DAILY #2 06/06/22 (3 mL) subcutaneous pen (Novolog Boxes FlexPen U-100 Insulin aspart) insulin glargine 100 unit/mL (3 40 unit (0.4 mL) subcut QPM #3 06/06/22 mL) subcutaneous pen (Lantus Boxes Solostar U-100 Insulin) atorvastatin 20 mg tablet 20 mg PO QPM #30 tabs 07/22/22 duloxetine 20 mg capsule,delayed 20 mg PO HS #30 caps 10/02/22 release (Cymbalta) duloxetine 60 mg capsule,delayed 60 mg PO QAM #30 caps 10/02/22 release (Cymbalta) gabapentin 300 mg capsule 300 mg PO TID #90 caps 11/18/22 [id number] 1 cap PO TID #90 caps 11/22/22 6,000-19,000-30,000 unit capsule,delayed rel (Creon) Results & Data (ED) Vital Signs Vital Signs - 24 hr 12/23/22 15:14 12/23/22 15:20 12/23/22 15:41 Temperature 36.8 C Temperature Source Oral Pulse Rate 104 H 105 H Pulse Rhythm Regular Pulse Strength Normal Respiratory Rate 15 Respiratory Effort / Characteristics Non-Labored Respiratory Depth Normal Normal Respiratory Pattern Regular Blood Pressure 126/87 Blood Pressure Mean 100 Pulse Oximetry 98 Oxygen Delivery Method Room Air Sepsis Recent Fever Within 48 Hours No Sepsis New/Unexplained Change in Mental Status No Sepsis Action Taken by Nursing No Action Required Home Medications Current Medication List: was personally reviewed by me Laboratory Data Attestation: I reviewed the patient's lab results. 12/23/22 15:21 12/23/22 15:21 Lab Results 12/23/22 12/23/22 12/23/22 Range/Units 15:21 15:21 15:21 WBC 4.84 (4.8-10.8) K/ul RBC 4.51 (4.20-5.40) M/uL Hgb 13.8 (12.0-16.0) g/dl Hct 38.7 (37.0-47.0) % MCV 85.8 (80.0-100.0) fL MCH 30.6 (25.0-34.0) pg MCHC 35.7 (32.0-36.0) g/dL RDW Std Deviation 39.7 (36.4-46.3) fL RDW Coeff of Ethel 12.7 (11.5-14.5) % Plt Count 80 L (130-400) K/uL MPV 11.4 (9.4-12.4) fL Immature Gran % (Auto) 0.4 % Neut % (Auto) 73.3 % Lymph % (Auto) 17.4 % [place] % (Auto) 8.1 % Eos % (Auto) 0.2 % Baso % (Auto) 0.6 % Neut # (Auto) 3.55 (1.40-6.50) K/uL Lymph # (Auto) 0.84 L (1.2-3.4) K/uL [place] # (Auto) 0.39 (0.11-0.59) K/uL Eos # (Auto) 0.01 (0-0.50) K/uL Baso # (Auto) 0.03 (0-0.2) K/uL Immature Gran # (Auto) 0.02 (0.01-0.20) K/uL Tear Drop Cells 1+ VBG pH (7.36-7.41) VBG pCO2 (38-50) mmHg VBG pO2 mmHg VBG HCO3 mmol/L VBG O2 Saturation % VBG Base Excess mEq/L Sodium 128 L (136-145) mmol/L Potassium 2.4 L* (3.5-5.1) mmol/L Chloride 67 L (98-107) mmol/L Carbon Dioxide 36 H (21-32) mmol/L Anion Gap 25 H (3-11) BUN 34 H (6-23) mg/dl Creatinine 1.01 (0.6-1.2) mg/dl Est Cr Clr Drug Dosing Not Reportable Est GFR ( Amer) 72.1 ml/min Est GFR (Non-Af Amer) 62.2 ml/min BUN/Creatinine Ratio 33.7 H (10-20) Glucose 438 H* (70-99(Fasting)) mg/dl Lactate (0.4-2.0) mmol/L Calcium 9.7 (8.5-10.1) mg/dl Magnesium 2.8 H (1.7-2.4) mg/dl Total Bilirubin 1.5 H (0.2-1.0) mg/dl AST 81 H (13-39) U/L ALT 65 H (7-52) U/L Alkaline Phosphatase 154 H (34-104) U/L Total Creatine Kinase 77 (26-192) U/L Troponin I High Sens 22.6 H (0-14) pg/ml Total Protein 7.8 (6.0-8.3) gm/dl Albumin 4.4 (3.4-5.0) gm/dl Globulin 3.4 (2.5-4.0) gm/dl Albumin/Globulin Ratio 1.3 (0.9-2) Lipase 5 L (11-82) U/L Procalcitonin (0-0.5) ng/ml TSH 1.632 (0.300-4.500) uIu/ml Ethyl Alcohol mg/dL (<10.0) mg/dl SARS-CoV-2 (PCR) (Negative) Influenza Type A (PCR) (Neg) Influenza Type B (PCR) (Neg) RSV (RT-PCR) (Neg) Group A Strep (PCR) (NotDetected) 12/23/22 12/23/22 12/23/22 Range/Units 15:21 16:17 16:53 WBC (4.8-10.8) K/ul RBC (4.20-5.40) M/uL Hgb (12.0-16.0) g/dl Hct (37.0-47.0) % MCV (80.0-100.0) fL MCH (25.0-34.0) pg MCHC (32.0-36.0) g/dL RDW Std Deviation (36.4-46.3) fL RDW Coeff of Ethel (11.5-14.5) % Plt Count (130-400) K/uL MPV (9.4-12.4) fL Immature Gran % (Auto) % Neut % (Auto) % Lymph % (Auto) % [place] % (Auto) % Eos % (Auto) % Baso % (Auto) % Neut # (Auto) (1.40-6.50) K/uL Lymph # (Auto) (1.2-3.4) K/uL [place] # (Auto) (0.11-0.59) K/uL Eos # (Auto) (0-0.50) K/uL Baso # (Auto) (0-0.2) K/uL Immature Gran # (Auto) (0.01-0.20) K/uL Tear Drop Cells VBG pH (7.36-7.41) VBG pCO2 (38-50) mmHg VBG pO2 mmHg VBG HCO3 mmol/L VBG O2 Saturation % VBG Base Excess mEq/L Sodium (136-145) mmol/L Potassium (3.5-5.1) mmol/L Chloride (98-107) mmol/L Carbon Dioxide (21-32) mmol/L Anion Gap (3-11) BUN (6-23) mg/dl Creatinine (0.6-1.2) mg/dl Est Cr Clr Drug Dosing Est GFR ( Amer) ml/min Est GFR (Non-Af Amer) ml/min BUN/Creatinine Ratio (10-20) Glucose (70-99(Fasting)) mg/dl Lactate 2.3 H* (0.4-2.0) mmol/L Calcium (8.5-10.1) mg/dl Magnesium (1.7-2.4) mg/dl Total Bilirubin (0.2-1.0) mg/dl AST (13-39) U/L ALT (7-52) U/L Alkaline Phosphatase (34-104) U/L Total Creatine Kinase (26-192) U/L Troponin I High Sens (0-14) pg/ml Total Protein (6.0-8.3) gm/dl Albumin (3.4-5.0) gm/dl Globulin (2.5-4.0) gm/dl Albumin/Globulin Ratio (0.9-2) Lipase (11-82) U/L Procalcitonin (0-0.5) ng/ml TSH (0.300-4.500) uIu/ml Ethyl Alcohol mg/dL (<10.0) mg/dl SARS-CoV-2 (PCR) NEGATIVE (Negative) Influenza Type A (PCR) Negative (Neg) Influenza Type B (PCR) Negative (Neg) RSV (RT-PCR) Negative (Neg) Group A Strep (PCR) NOT DETECTED (NotDetected) 12/23/22 12/23/22 12/23/22 Range/Units 16:53 16:53 16:55 WBC (4.8-10.8) K/ul RBC (4.20-5.40) M/uL Hgb (12.0-16.0) g/dl Hct (37.0-47.0) % MCV (80.0-100.0) fL MCH (25.0-34.0) pg MCHC (32.0-36.0) g/dL RDW Std Deviation (36.4-46.3) fL RDW Coeff of Ethel (11.5-14.5) % Plt Count (130-400) K/uL MPV (9.4-12.4) fL Immature Gran % (Auto) % Neut % (Auto) % Lymph % (Auto) % [place] % (Auto) % Eos % (Auto) % Baso % (Auto) % Neut # (Auto) (1.40-6.50) K/uL Lymph # (Auto) (1.2-3.4) K/uL [place] # (Auto) (0.11-0.59) K/uL Eos # (Auto) (0-0.50) K/uL Baso # (Auto) (0-0.2) K/uL Immature Gran # (Auto) (0.01-0.20) K/uL Tear Drop Cells VBG pH 7.52 H (7.36-7.41) VBG pCO2 50 (38-50) mmHg VBG pO2 26 mmHg VBG HCO3 41 mmol/L VBG O2 Saturation < 60.0 % VBG Base Excess 15.6 mEq/L Sodium (136-145) mmol/L Potassium (3.5-5.1) mmol/L Chloride (98-107) mmol/L Carbon Dioxide (21-32) mmol/L Anion Gap (3-11) BUN (6-23) mg/dl Creatinine (0.6-1.2) mg/dl Est Cr Clr Drug Dosing Est GFR ( Amer) ml/min Est GFR (Non-Af Amer) ml/min BUN/Creatinine Ratio (10-20) Glucose (70-99(Fasting)) mg/dl Lactate (0.4-2.0) mmol/L Calcium (8.5-10.1) mg/dl Magnesium (1.7-2.4) mg/dl Total Bilirubin (0.2-1.0) mg/dl AST (13-39) U/L ALT (7-52) U/L Alkaline Phosphatase (34-104) U/L Total Creatine Kinase (26-192) U/L Troponin I High Sens (0-14) pg/ml Total Protein (6.0-8.3) gm/dl Albumin (3.4-5.0) gm/dl Globulin (2.5-4.0) gm/dl Albumin/Globulin Ratio (0.9-2) Lipase (11-82) U/L Procalcitonin 0.25 (0-0.5) ng/ml TSH (0.300-4.500) uIu/ml Ethyl Alcohol mg/dL < 10.0 (<10.0) mg/dl SARS-CoV-2 (PCR) (Negative) Influenza Type A (PCR) (Neg) Influenza Type B (PCR) (Neg) RSV (RT-PCR) (Neg) Group A Strep (PCR) (NotDetected) Administered Medications Buspirone HCl (Buspirone 15 Mg Tab) 15 mg PO BID ARPIT Stop: 01/22/23 20:59 Last Admin: 12/23/22 21:56 Dose: 15 mg Documented By: RIAN Clotrimazole (Clotrimazole 10 Mg Kartik) 10 mg BUCCAL [id number] ARPIT Stop: 01/02/23 18:59 Last Admin: 12/23/22 23:39 Dose: 10 mg Documented By: Admin: 12/23/22 18:35 Dose: 10 mg Documented By: CGK Duloxetine HCl (Duloxetine Hcl 20 Mg Cap) 20 mg PO HS ARPIT Stop: 01/22/23 20:59 Last Admin: 12/23/22 21:56 Dose: 20 mg Documented By: RIAN Phenol (Chloraseptic 1.4% Soln 180 Ml Btl) 1 sprays MT Q2H PRN PRN Reason: Sore Throat Stop: 01/22/23 23:24 Last Admin: 12/24/22 00:19 Dose: 1 sprays Documented By: RIAN Discontinued Medications Sodium Chloride (Nss 1000ml) 1,000 mls @ 999 mls/hr IV .Q1H1M ONE Stop: 12/23/22 16:58 Last Infusion: 12/23/22 20:11 Dose: 0 mls/hr Documented By: Admin: 12/23/22 16:04 Dose: 999 mls/hr Documented By: KATIEK Acetaminophen (Ofirmev) 1,000 mg in 100 mls @ 400 mls/hr IV NOW STA Stop: 12/23/22 16:41 Last Infusion: 12/23/22 18:33 Dose: 0 mls/hr Documented By: Admin: 12/23/22 17:16 Dose: 400 mls/hr Documented By: KODY Potassium Chloride (K Cory / Wtr) 10 meq in 100 mls @ 100 mls/hr IV Q1H ARPIT; Protocol Stop: 12/23/22 18:44 Last Infusion: 12/23/22 20:11 Dose: 0 mls/hr Documented By: Admin: 12/23/22 18:38 Dose: 100 mls/hr Documented By: Infusion: 12/23/22 18:38 Dose: 0 mls/hr Documented By: Admin: 12/23/22 17:16 Dose: 100 mls/hr Documented By: KODY Sodium Chloride (Nss 1000ml) 1,000 mls @ 999 mls/hr IV .Q1H1M ONE Stop: 12/23/22 17:45 Last Infusion: 12/23/22 20:11 Dose: 0 mls/hr Documented By: Admin: 12/23/22 17:18 Dose: 999 mls/hr Documented By: MALIAT Potassium Chloride (K Cory / Wtr) 10 meq in 100 mls @ 100 mls/hr IV Q1H ARPIT Stop: 12/23/22 21:44 Last Admin: 12/24/22 00:35 Dose: 100 mls/hr Documented By: Infusion: 12/24/22 00:12 Dose: 100 mls/hr Documented By: Admin: 12/23/22 23:12 Dose: 100 mls/hr Documented By: Infusion: 12/23/22 22:00 Dose: 0 mls/hr Documented By: Admin: 12/23/22 20:58 Dose: 100 mls/hr Documented By: RIAN Potassium Chloride (K Cory / Wtr) 10 meq in 100 mls @ 100 mls/hr IV Q1H ARPIT Stop: 12/23/22 22:44 Last Infusion: 12/23/22 23:03 Dose: 0 mls/hr Documented By: Admin: 12/23/22 21:56 Dose: 100 mls/hr Documented By: RIAN Potassium Chloride (Potassium Chloride 20 Meq/15 Ml Udc) 40 meq PO NOW STA Stop: 12/23/22 17:10 Last Admin: 12/23/22 17:48 Dose: Not Given Documented By: KODY Imaging Data Radiologist's Impression: Chest X-Ray 12/23/22 15:58 XR chest 1V portable HISTORY: 56 years-old Female weakness acute weakness COMPARISON: Chest radiograph 08/30/2022 TECHNIQUE: AP view of the chest FINDINGS: Cardiac mediastinal and hilar silhouettes are within normal limits. No pneumothorax, pleural effusion, airspace consolidation or pulmonary edema. Chronic posterior left-sided rib fractures. Bones appear grossly intact. IMPRESSION: No acute process. ACT 112: Negative or not required by law. The above report was generated using voice recognition software. It may contain grammatical, syntax or spelling errors. Electronically signed by: Doug Rich M.D. 12/23/2022 4:[address] Tissue [address] 12/23/22 16:27 CT soft tissue neck wo con CLINICAL HISTORY: st, hard to swallow Technique: Axial CT images of the soft tissues of the neck were obtained following intravenous administration of 100 cc of Omnipaque 300. Automated dose lowering techniques and/or adjustment according to patient size were utilized for this exam. CT DOSE: 419.60 mGy.cm Comparison: Comparison is made to CT cervical spine 09/16/2022 Findings: There are no masses or inflammatory changes seen within the soft tissues of the neck. The oropharynx, hypopharynx, larynx, and trachea are patent. No enlarged lymph nodes are seen. The parotid glands, submandibular glands, and thyroid gland are unremarkable. Atherosclerosis is seen. Imaged portions of the brain parenchyma are unremarkable. The paranasal sinuses and mastoid air cells are normal in appearance. Impression: No acute abnormality is seen in particular no mass or pharyngeal obstruction. ACT 112: Negative or not required by law. Electronically signed by: Ritchie Cosby M.D. 12/23/2022 5:42 PM Discharge Plan Visit Data Chief Complaint: Illness Stated Complaint: ILLNESS ED Provider: Lauro Porter Discharge Problem: Weakness, Acute dehydration, Acute hyperglycemia, Hypokalemia, Acute hyponat remia, Hypochloremia, Oral thrush Patient Disposition: Admitted As Inpatient Condition: Serious Discharge Instructions Interventions: ED Discharge Assessment Last Done: 12/23/22 20:03
[2022-12-23 16:44] LABS: Alanine Aminotransferase 65 U/L (7-52); Albumin Globulin Ratio 1.3 (0.9-2); Albumin Level 4.4 gm/dl (3.4-5.0); Alkaline Phosphatase 154 U/L (34-104); Anion Gap 25 (3-11); Aspartate Aminotransferase 81 U/L (13-39); BUN Creatinine Ratio 33.7 (10-20); Bilirubin,Total 1.5 mg/dl (0.2-1.0); Blood Urea Nitrogen 34 mg/dl (6-23); Calcium 9.7 mg/dl (8.5-10.1); Carbon Dioxide 36 mmol/L (21-32); Chloride 67 mmol/L (98-107); Creatine Kinase 77 U/L (26-192); Est GFR (African American) 72.1 ml/min; Est GFR (Non-African American) 62.2 ml/min; Globulin 3.4 gm/dl (2.5-4.0); Glucose 438 mg/dl (70-99(Fasting)); Lipase 5 U/L (11-82); Magnesium 2.8 mg/dl (1.7-2.4); Potassium 2.4 mmol/L (3.5-5.1); Sodium 128 mmol/L (136-145); Total Protein 7.8 gm/dl (6.0-8.3); Troponin I High Sensitivity 22.6 pg/ml (0-14)
--- NOTE | 2022-12-23 16:45 | XRay Report ---
XR chest 1V portable HISTORY: 56 years-old Female weakness acute weakness COMPARISON: Chest radiograph 08/30/2022 TECHNIQUE: AP view of the chest FINDINGS: Cardiac mediastinal and hilar silhouettes are within normal limits. No pneumothorax, pleural effusion , airspace consolidation or pulmonary edema. Chronic posterior left-sided rib fractures. Bones appear grossly intact. IMPRESSION: No acute process. ACT 112: Negative or not required by law. The above report was generated using voice recognition software. It may contain grammatical, syntax o r spelling errors. Electronically signed by: Doug Rich M.D. 12/23/2022 4:44 PM
[2022-12-23 16:48] LABS: Influenza A virus by PCR Negative (Neg); Influenza B virus by PCR Negative (Neg); RSV by PCR Negative (Neg); SARS CoV2 RNA(COVID-19) Ceph NEGATIVE (Negative)
[2022-12-23 17:05] LABS: Base Excess VBG 15.6 mEq/L; HCO3 VBG 41 mmol/L; Oxygen Saturation VBG < 60.0 %; PCO2 VBG 50 mmHg (38-50); PO2 VBG 26 mmHg; pH VBG 7.52 (7.36-7.41)
--- NOTE | 2022-12-23 17:06 | History & Physical Report ---
Date of Service December 23, 2022 Assessment & Plan (1) DKA, type 1: Plan: Diabetic ketoacidosis, type I DM Admitting BSG 438, severely hypovolemic, sodium 128 consistent with pseudohyponatremia, creatinine/BUN ratio 33.7 Admitting creatinine is 1.01 HIM TECH insulin regimen: Glargine 40 units every afternoon, insulin aspart 33 daily. With 3 weeks of weakness Initial potassium 2.4, hold insulin until greater than 3.3. Once potassium is above 3.3 start insulin gtt. DKA protocol, run with LR + KCl and repeat BMP/mag at minimum every 4 hours Sodium 128, pseudohyponatremia in the setting of admitting BSG of 438 Lactate pending Medical alcohol negative VBG 7.5 // Lactate 2.3, repeat post fluids pending Troponin 22.6, repeat pending. - NSS x2 L given in ER Procalcitonin is normal Pharyngitis/thrush Patient with severe dysphagia for the last 2 to 3 weeks, neck is without swelling/asymmetry/abscess. Posterior pharynx with adherent plaques consistent with thrush CTneck: No acute abnormality is seen in particular no mass or pharyngeal obstruction. Clotrimazole 10 mg Trush 5 times daily ordered Fluconazole deferred for clotrimazole 2/2 admitting transaminitis. Suspect this is from volume depletion and shock liver, if improved with fluids and supportive care consider fluconazole for severe thrush Elevated troponin EKG: Sinus tachycardia, no territorial ST segment changes, nonspecific ST change, no T wave inversions. QTc 431 ms. No chest pain on assessment Troponin trended, suspect demand Chronic pancreatitis Creon temporarily held while n.p.o. Depression/anxiety Follows with [facility] Continue duloxetine 60 mg a.m., 20 mg p.m.; minimal effect on QT BuSpar 15 p.o. twice daily Diet: N.p.o. with meds Disposition: PCU CODE STATUS: DVT prophylaxis: SCDs (2) Diabetes type 1, uncontrolled: (3) Dyslipidemia: (4) IPMN (intraductal papillary mucinous neoplasm): (5) Liver cirrhosis: (6) History of GI bleed: (7) Depression with anxiety: History of Present Illness Primary Care [facility] is a 56-year-old female with a past medical history of type 1 diabetes mellitus, IPMN, liver cirrhosis, GI bleed, alcohol use who presents to the emergency department for weakness and being nearly bedridden for 3 weeks with incontinence. Was found by family members on kept in bed with a blood sugar of 700. Patient reports she has had a sore throat for 3 weeks, is extremely fatigued and thirsty. Discussed with patients mother at the bedside. He rmother returned from a trip to [place] to come check on her. had been sick for 2 weeks prior. Was laying in bed, not eating. She was so tired she could not move off the couch and was incontinent. Called EMS. Past hx of alcoholism, rare breakthrough episodes last year to her mothers knowledge. 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 Yin reports an extremely sore throat 2-3 weeks ago. Couldn't swallow or drink anything. Has been taking only small sips of water since.Her throatfeels about the same now, very raw. NO history of similar sx. She has had some chills, but no fevers Has had a 'terrible cough' for 2 weeks which seems to have improved by time or ER admission. Cough was productive for white/clear phlegm. No chest pain or shortness of breath +vomiting in the last week which has been black in the last few days. Has been trying to keep root beer down which is black. No black or bloody BMs, but have been dark and green colored. Has not taking her insulin in many days, does not remember last time she used it. Has not been taking medications since being sick. No chest pain, but strong throat pain. Vomiting ever y 5-30 mintues in the last two days. Takes sips and automatically throws up. Denies recent alcohol use Medical History: Reviewed Medications: Reviewed. Haloperidol, but not sure the allergy Surgical History: Reviewed Family history: Reviewed Allergies: Reviewed Social History: no recent alcohol use. Cigarette use, pack every few days. Code Status: DNR/DNMI Allergies Allergy/AdvReac Type Severity Reaction Status Date / Time haloperidol [From Haldol] AdvReac Unknown Unknown Verified 10/01/22 14:39 Home Medications Medication Instructions Recorded Confirmed Type cholecalciferol (vitamin D3) 25 1,000 units PO HS 06/23/19 12/23/22 History mcg (1,000 unit) capsule cyanocobalamin (vitamin B-12) 1,000 mcg PO DAILY 05/10/20 12/23/22 History 1,000 mcg tablet (Vitamin B-12) diphenhydramine HCl 25 mg tablet 25 - 50 mg PO Q6H PRN Allergy 10/25/20 12/23/22 History (Benadryl Allergy) Symptoms ascorbic acid (vitamin C) 500 mg 500 mg PO Q OTHER DAY 07/04/21 12/23/22 History tablet (Vitamin C) multivitamin 1 tab PO DAILY 12/24/21 12/23/22 History buspirone 15 mg tablet 15 mg PO BID #60 tabs 04/30/22 12/23/22 Rx folic acid 1 mg tablet 1 mg PO DAILY 05/21/22 12/23/22 History insulin aspart U-100 100 unit/mL 33 unit (0.33 mL) subcut DAILY #2 06/06/22 12/23/22 Rx (3 mL) subcutaneous pen (Novolog Boxes FlexPen U-100 Insulin aspart) insulin glargine 100 unit/mL (3 40 unit (0.4 mL) subcut QPM #3 06/06/22 12/23/22 Rx mL) subcutaneous pen (Lantus Boxes Solostar U-100 Insulin) atorvastatin 20 mg tablet 20 mg PO QPM #30 tabs 07/22/22 12/23/22 Rx duloxetine 20 mg capsule,delayed 20 mg PO HS #30 caps 10/02/22 12/23/22 Rx release (Cymbalta) duloxetine 60 mg capsule,delayed 60 mg PO QAM #30 caps 10/02/22 12/23/22 Rx release (Cymbalta) gabapentin 300 mg capsule 300 mg PO TID #90 caps 11/18/22 12/23/22 Rx cbxybe-quqagznt-kgyigwz 1 cap PO TID #90 caps 11/22/22 12/23/22 Rx 6,000-19,000-30,000 unit capsule,delayed rel (Creon) clobetasol 0.05 % scalp solution 1 applic topical DAILY PRN flare 12/23/22 12/23/22 History Past Med/Surg History Medical History Acute head injury Alcohol withdrawal seizure NOT REPORTED BY PATIENT AT TIME OF PAT CALL - LAST EPISODE OVER A YEAR AGO Aspiration pneumonia Caustic esophageal injury Chronic pancreatitis Cirrhosis of liver "COMPROMISED LIVER" Depression with anxiety Unable to establish with psychiatrist Diabetes type 1, uncontrolled Diabetes type 1, uncontrolled Diabetic peripheral neuropathy associated with type 1 diabetes mellitus Dysesthesia Dyslipidemia Encephalomalacia Exocrine pancreatic insufficiency History of alcohol abuse History of GI bleed History of left below knee amputation Hydrosalpinx PT UNAWARE Hypoxia IPMN (intraductal papillary mucinous neoplasm) Imaging July 2020 follow-up yearly Left against medical advice Leukopenia Lipoma NECK Polycystic ovarian syndrome Psoriasis SBO (small bowel obstruction) Resolved Thrombocytopenia Tobacco dependence Vitamin D deficiency Surgical History Amputation of left lower extremity TO APPROX MID CALF History of ankle surgery 02/2019 left ankle ex fix, grade 2 view with MAC 3 and 7.0 ETT History of tooth extraction Family History Uncle Diabetes Mother Breast cancer Sister Breast cancer Father Prostate cancer Other Family history of breast cancer in mother Family history of breast cancer in sister Denies family history of Ovarian cancer Myocardial infarction Colorectal cancer Social History Smoking Status: Unknown if ever smoked Tobacco Type: Cigarettes packs per day: 0.75; Cigarettes Per Day: 15; Second Hand Exposure: No; Hx Alcohol Use: Yes Alcohol type: wine Preferred Language: Danish Communication Ability: Effective Visual Impairment: No Limitations Deodorizer Operator Required: No Beliefs That Will Affect Care: None marital status: marital status details: no children Current Living Situation: Alone Current Living Situation Comment: unknown current occupational status: disabled Feels Safe at Home: Declines to Answer Assistive Devices: None Review of Systems Review of Systems: All systems reviewed & are unremarkable except as noted in HPI & below Physical Exam Physical Exam: General: A&Ox3. NAD. Cooperative. Appears volume depleted and fatigued. Answering questions appropriately HEENT: Atraumatic, normocephalic. Mucous membranes are dry and cracked. Uvula is midline, airway is patent. Posterior pharynx with scattered white plaques, inner cheek with white plaques. Vision/hearing intact. Poor dentition, but no evidence of abscess or purulent discharge from the gums Pulm: CTAB A&P. -wheezes, -rales, -rhonchi. Symmetrical chest rise. No increased work of breathing. No respiratory distress. Cardiac: Regular, tachycardic radial pulses intact and symmetrical. Abdominal: Mildly diffusely tender to palpation but not rigid, no guarding and nondistended. Bowel sounds diminished Extremities: Left BKA, well-healed stump without active ulceration/pressure wound/cellulitis. Right lower extremity intact, warm, dry. Cap refill sluggish. Sensation of soft touch is intact in right lower extremity with patient endorsing some neuropathy at baseline. Mental Hygienist strength 5/5 bilaterally in upper extremities. Results & Data Results & Data Vital Signs (Past 12 Hours) Vital Signs Temp Pulse Resp BP Pulse Ox O2 Del Method 12/23/22 15:41 105 H 12/23/22 15:14 36.8 C 104 H 15 126/87 98 Room Air PG Care Time/CCT Total # of Minutes Spent Total Time Spent with Patient: Total time spent is greater than 50% in coordination of care (as documented) at patient's floor/unit and/or counseling patient: Coding Level of Care Code 39221 INT INP/OBS CARE 3/75MIN Diagnoses DKA, type 1 E10.10 Diabetes type 1, uncontrolled E10.65 Dyslipidemia E78.5 IPMN (intraductal papillary mucinous neoplasm) D49.0 Liver cirrhosis K70.30 Ascites presence: without ascites Hepatic cirrhosis type: alcoholic cirrhosis History of GI bleed Z87.19 Depression with anxiety F41.8 (5) Liver cirrhosis Ascites presence: without ascites Hepatic cirrhosis type: alcoholic cirrhosis Qualified Code(s): K70.30 - Alcoholic cirrhosis of liver without ascites
[2022-12-23] MEDS: POTASSIUM CHLORIDE 20 MEQ/15 ML UDC PO STA ×2 (17:16→17:48)
[2022-12-23] MEDS: POTASSIUM CHLORIDE / WTR 10 MEQ/100 ML PLCT IV SCH ×5 (17:16→23:12)
[2022-12-23] MEDS ORDERED: PHARMACY GLYCEMIC MGMT CONSULT PRN (17:17)
[2022-12-23 17:19] LABS: Hematocrit (blood only) 38.7 % (37.0-47.0); Hemoglobin 13.8 g/dl (12.0-16.0); Mean Corpuscular Hemoglobin 30.6 pg (25.0-34.0); Mean Corpuscular Hgb Conc 35.7 g/dL (32.0-36.0); Mean Corpuscular Volume 85.8 fL (80.0-100.0); Mean Platelet Volume 11.4 fL (9.4-12.4); Platelet Count 80 K/uL (130-400); RDW Coefficient of Variation 12.7 % (11.5-14.5); RDW Standard Deviation 39.7 fL (36.4-46.3); Red Blood Count 4.51 M/uL (4.20-5.40); White Blood Count 4.84 K/ul (4.8-10.8)
[2022-12-23 17:23] LABS: Basophils # (auto) 0.03 K/uL (0-0.2); Basophils % (auto) 0.6 %; Eosinophils # (auto) 0.01 K/uL (0-0.50); Eosinophils % (auto) 0.2 %; Immature Granulocytes # (auto) 0.02 K/uL (0.01-0.20); Immature Granulocytes % (auto) 0.4 %; Lymphocytes # (auto) 0.84 K/uL (1.2-3.4); Lymphocytes % (auto) 17.4 %; Monocytes # (auto) 0.39 K/uL (0.11-0.59); Monocytes % (auto) 8.1 %; Neutrophils # (auto) 3.55 K/uL (1.40-6.50); Neutrophils % (auto) 73.3 %; Tear Drop Cells 1+
--- NOTE | 2022-12-23 17:44 | CT Scan Report ---
CT soft tissue neck wo con CLINICAL HISTORY: st, hard to swallow Technique: Axial CT images of the soft tissues of the neck were obtained following intravenous admini stration of 100 cc of Omnipaque 300. Automated dose lowering techniques and/or adjustment according t o patient size were utilized for this exam. CT DOSE: 419.60 mGy.cm Comparison: Comparison is made to CT cervical spine 09/16/2022 Findings: There are no masses or inflammatory changes seen within the soft tissues of the neck. The oropharynx, hypopharynx, larynx, and trachea are patent. No enlarged lymph nodes are seen. The parotid glands, s ubmandibular glands, and thyroid gland are unremarkable. Atherosclerosis is seen. Imaged portions of the brain parenchyma are unremarkable. The paranasal sinuses and mastoid air cell s are normal in appearance. Impression: No acute abnormality is seen in particular no mass or pharyngeal obstruction. ACT 112: Negative or not required by law. Electronically signed by: Ritchie Cosby M.D. 12/23/2022 5:42 PM
[2022-12-23] MEDS: CLOTRIMAZOLE 10 MG TROCHE BUCCAL SCH ×2 (18:35→23:39)
[2022-12-23 19:13] LABS: Anion Gap 21 (3-11); BUN Creatinine Ratio 35.2 (10-20); Blood Urea Nitrogen 32 mg/dl (6-23); Calcium 8.4 mg/dl (8.5-10.1); Carbon Dioxide 32 mmol/L (21-32); Chloride 76 mmol/L (98-107); Est GFR (African American) 81.7 ml/min; Est GFR (Non-African American) 70.5 ml/min; Glucose 396 mg/dl (70-99(Fasting)); Magnesium 2.4 mg/dl (1.7-2.4); Phosphorus 2.1 mg/dl (2.5-4.9); Potassium 2.7 mmol/L (3.5-5.1); Sodium 129 mmol/L (136-145)
[2022-12-23] MEDS ORDERED: POLYETHYLENE (MIRALAX) 17 GM PACK PO PRN (20:45)
[2022-12-23 21:40] LABS: BUN Creatinine Ratio 32.9 (10-20); Calcium 8.3 mg/dl (8.5-10.1); Creatinine Clr Calc Pharmacy 69.2 ml/min; Est GFR (African American) 88.8 ml/min; Est GFR (Non-African American) 76.6 ml/min; Magnesium 2.4 mg/dl (1.7-2.4); Phosphorus 1.6 mg/dl (2.5-4.9); Potassium 2.7 mmol/L (3.5-5.1)
[2022-12-23] MEDS: DULoxetine HCL 20 MG CAP PO SCH (21:56)
[2022-12-23] MEDS: busPIRone 15 MG TAB PO SCH (21:56)
[2022-12-24] MEDS: CHLORASEPTIC 1.4% SOLN 180 ML BTL MT PRN ×3 (00:19→09:22)
[2022-12-24] MEDS: POTASSIUM CHLORIDE / WTR 10 MEQ/100 ML PLCT IV SCH ×5 (00:35→05:33)
[2022-12-24 01:25] LABS: BUN Creatinine Ratio 30.5 (10-20); Calcium 8.3 mg/dl (8.5-10.1); Creatinine Clr Calc Pharmacy 71.7 ml/min; Est GFR (African American) 92.7 ml/min; Magnesium 2.3 mg/dl (1.7-2.4); Phosphorus 1.3 mg/dl (2.5-4.9); Potassium 3.1 mmol/L (3.5-5.1)
[2022-12-24 01:34] LABS: Troponin I High Sensitivity 20.1 pg/ml (0-14)
[2022-12-24] MEDS ORDERED: POTASSIUM PHOS 3 MMOL/1 ML INFUSION IV STA ×2 (04:18→10:44)
[2022-12-24] MEDS ORDERED: POTASSIUM PHOSPHATE 21 MMOL in SODIUM CHLORIDE 0.9% 500 ML IV ONE ×2 (05:15→11:15)
[2022-12-24] MEDS: POTASSIUM CHLORIDE 20 MEQ in LACTATED RINGER'S 1,000 ML IV SCH ×2 (05:22→11:59)
[2022-12-24] MEDS: CLOTRIMAZOLE 10 MG TROCHE BUCCAL SCH ×5 (06:06→22:43)
[2022-12-24 08:18] LABS: Magnesium 2.2 mg/dl (1.7-2.4); Phosphorus 1.8 mg/dl (2.5-4.9)
[2022-12-24 08:19] LABS: Albumin Level 3.3 gm/dl (3.4-5.0); BUN Creatinine Ratio 28.2 (10-20); Bilirubin Direct 0.3 mg/dl (0-0.2); Bilirubin,Total 1.1 mg/dl (0.2-1.0); Creatinine Clr Calc Pharmacy 82.8 ml/min; Est GFR (African American) 110.4 ml/min; Est GFR (Non-African American) 95.2 ml/min; Potassium 3.3 mmol/L (3.5-5.1); Total Protein 5.5 gm/dl (6.0-8.3)
[2022-12-24] MEDS ORDERED: PHARMACY GLYCEMIC MGMT CONSULT PRN (08:48)
[2022-12-24] MEDS ORDERED: LANTUS PER UNIT CHARGE SQ ONE (09:00)
[2022-12-24] MEDS ORDERED: INSULIN HUMAN REGULAR PER UNIT 6 UNITS in SYRINGE 5.94 ML IV ONE (09:00)
[2022-12-24] MEDS: DULoxetine HCL 60 MG CAP PO SCH (09:19)
[2022-12-24] MEDS: busPIRone 15 MG TAB PO SCH ×2 (09:19→20:32)
[2022-12-24] MEDS: INSULIN ASPART PER UNIT CHARGE SC SCH ×4 (09:19→20:33)
[2022-12-24] MEDS: GABAPENTIN 300 MG CAP PO SCH ×3 (09:36→20:32)
[2022-12-24] MEDS ORDERED: CARBOHYDRATES FOR HYPOGLYCEMIA PO PRN (10:00)
[2022-12-24] MEDS ORDERED: DEXTROSE 50% 50 ML SYRINGE IV PRN (10:00)
[2022-12-24] MEDS ORDERED: GLUCOSE 40% GEL 15 GM TUBE PO PRN (10:00)
[2022-12-24] MEDS ORDERED: GLUCOSE 10 TAB/TUBE PO PRN (10:00)
[2022-12-24] MEDS ORDERED: GLUCAGON FOR INJ 1 MG VIAL IM PRN (10:00)
[2022-12-24 10:32] LABS: BUN Creatinine Ratio 25.7 (10-20); Calcium 8.1 mg/dl (8.5-10.1); Est GFR (African American) 112.3 ml/min; Est GFR (Non-African American) 96.9 ml/min; Magnesium 2.1 mg/dl (1.7-2.4); Phosphorus 1.6 mg/dl (2.5-4.9)
[2022-12-24] MEDS ORDERED: BENZONATATE 100 MG CAPSULE PO PRN (10:37)
[2022-12-24] MEDS ORDERED: POTASSIUM CHLORIDE CRTAB 20 MEQ TABCR PO STA (10:42)
--- NOTE | 2022-12-24 10:50 | Electrocardiogram Report ---
Test Reason : Blood Pressure : / mmHG Vent. Rate : 101 BPM Atrial Rate : 101 BPM P-R Int : 134 ms QRS Dur : 090 ms QT Int : 410 ms P-R-T Axes : 075 067 076 degrees QTc Int : 531 ms Sinus tachycardia Biatrial enlargement Nonspecific ST abnormality Prolonged QT Abnormal ECG When compared with ECG of 16-SEP-2022 16:26, No significant change was found Confirmed by Artemio Olson ([id number]) on 12/24/2022 10:50:02 AM Referred By: REFERRED SELF Confirmed By:Clive Olson
--- NOTE | 2022-12-24 10:54 | Hospitalist Progress Note ---
Date of Service December 24, 2022 Assessment & Plan (1) DKA, type 1: Plan: Type 1 DM admitted with DKA Admitting BSG 438, severely hypovolemic, sodium 128 consistent with pseudohyponatremia, creatinine/BUN ratio 33.7 - Did NOT meet criteria for DKA - pH was not <7.3 and Bicarb not <18 Home insulin regimen: Glargine 40 units every afternoon, insulin aspart 33 daily Medical alcohol negative VBG 7.52/50/26/41 Lactate 2.3, repeat post fluids pending - NSS x2 L given in ER Procalcitonin normal - No UA collected, repeat ordered, with reflex for culture if indicated - Aggressively hydrated overnight with LR + KCl, will change to just LR @ 125 ml/hr (2) Oral thrush: Plan: Patient with severe dysphagia for the last 2 to 3 weeks, neck is without swelling/asymmetry/abscess. Posterior pharynx with adherent plaques consistent with thrush CTneck: No acute abnormality is seen in particular no mass or pharyngeal obstruction. Clotrimazole 10 mg Trush 5 times daily ordered Fluconazole deferred for clotrimazole 2/2 admitting transaminitis. Suspect this is from volume depletion and shock liver, if improved with fluids and supportive care consider fluconazole for severe thrush (3) Elevated troponin: Plan: - Minimal elevation 22.6 --> 20.9 --> 20.1 --> 17.7 - No CP or EKG changes - No need to trend further - Suspect elevation is secondary to myocardial demand (4) Hypokalemia: Plan: - Potassium 3.0 on AM labs this AM - Phosphorous 1.6 - Additional K phos has been ordered for replacement - Repeat labs in AM (5) Liver cirrhosis: Plan: - Secondary to alcohol use (6) Depression with anxiety: Plan: Follows with [place] Continue duloxetine 60 mg a.m., 20 mg p.m.; minimal effect on QT BuSpar 15 p.o. twice daily Plan Advanced diet this AM to clear liquids which she tolerated. Diet advanced to T1DM soft. Will observe today, correct electrolyte derangements. Follow up labs in AM. Will d/w Dr. Capps. Admission and Anticipated Discharge Date Admission Date: December 23, 2022 Subjective Patient was seen on rounds this morning. She was hospitalized last evening with "DKA" but never required initiation of insulin gtt. This morning, she reports feeling better, would like to try to eat something. She denies abd pain, n/v/d, or gu symptoms. Physical Exam Physical Exam: GENERAL: 56 yo wd/wn middle aged wf AAOx3. NAD. LUNGS: Clear to auscultation bilaterally. CARDIOVASCULAR: Regular rate and rhythm. EXTREMITIES: s/p left BKA Results & Data Results & Data Vital Signs (Past 12 Hours) Vital Signs Temp Pulse Pulse Resp BP Pulse Ox O2 Del Method 12/24/22 10:42 91 H 12/24/22 07:45 Room Air 12/24/22 07:14 36.9 C 79 19 123/78 91 Room Air 12/24/22 02:56 36.7 C 85 20 133/77 97 Room Air 12/24/22 00:03 Room Air 12/23/22 23:00 88 12/23/22 23:18 36.7 C 76 18 116/75 91 Room Air Laboratory Results 12/23/22 15:21 12/24/22 09:52 mag=2.1 phos=1.6 PG Care Time/CCT Total # of Minutes Spent Total Time Spent with Patient: Total time spent is greater than 50% in coordination of care (as documented) at patient's floor/unit and/or counseling patient: Coding Level of Care Code 59804 SUB INP/OBS CARE 3/50MIN Diagnoses DKA, type 1 E10.10 Oral thrush B37.0 Elevated troponin R77.8 Hypokalemia E87.6 Liver cirrhosis K70.30 Ascites presence: without ascites Hepatic cirrhosis type: alcoholic cirrhosis Depression with anxiety F41.8 (5) Liver cirrhosis Ascites presence: without ascites Hepatic cirrhosis type: alcoholic cirrhosis Qualified Code(s): K70.30 - Alcoholic cirrhosis of liver without ascites
[2022-12-24] MEDS: LACTATED RINGER'S 1,000 ML IV SCH ×2 (11:56→19:28)
[2022-12-24] MEDS: PANCREAZE (LIPASE 10,500U) CAP PO SCH ×2 (13:19→18:04)
[2022-12-24] MEDS: guaiFENesin SUGAR FREE 100 MG/5 ML UDC PO PRN ×2 (14:02→20:31)
--- NOTE | 2022-12-24 14:22 | Pharmacy Report ---
Pharmacy Glycemic Short Note 2 - Date of Service December 24, 2022 - Glycemic Short BSG Results (Last 24 hours): 12/23/22 12/23/22 12/23/22 15:21 18:28 20:57 Glucose 438 H* 396 H* 358 H* POC Glucose 12/23/22 12/23/22 12/23/22 21:08 21:51 23:11 Glucose POC Glucose 349 H* 316 H* 330 H* 12/24/22 12/24/22 12/24/22 00:04 00:55 01:04 Glucose 330 H* POC Glucose 335 H* 346 H* 12/24/22 12/24/22 12/24/22 02:00 02:59 04:02 Glucose POC Glucose 310 H* 294 H 287 H 12/24/22 12/24/22 12/24/22 05:01 06:04 06:04 Glucose POC Glucose 296 H 291 H 291 H 12/24/22 12/24/22 12/24/22 07:04 07:12 08:12 Glucose 299 H POC Glucose 300 H 283 H 12/24/22 12/24/22 12/24/22 09:09 09:52 10:01 Glucose 158 H POC Glucose 274 H 200 H 12/24/22 12/24/22 11:04 12:06 Glucose POC Glucose 204 H 128 H OUTPATIENT ANTIDIABETIC REGIMEN: * Lantus 40 units SQ QPM * NovoLo unit for every 10 grams of carb. 150mg/dL target BSG, 30 mg/dL per 1 unit correction factor. Max daily dose 33 units. ASSESSMENT: * 56 year old female with type 1 diabetes who presented to [facility] ED 12/23/22 due to symptoms of weakness and dehydration, later found to be in DKA. Patient stated she could not remember the last time she had taken her insulin outpatient. HbA1c pending for 12/25/22. * Given low potassium at time of encounter (2.4 mmol/L at 1521), insulin drip was not started. Patient was treated with fluids, and anion gap went from 25 to 12 in about 9 hours. Potassium has been actively been repleted throughout admission. * Today, 12/24/22, pharmacy was consulted to manage the glycemic control of this patient. * BSG's remained in the mid-300's at time of consultation; 0.1 unit/kg dose of IV insulin regular was administered. Provider agreeable as potassium of 3.3 mmol/L was being repleted at time of administration. * 5 units of Lantus was given, and NovoLog with parameters slightly looser than weight-based stress of 2 were initiated given uncertain adherence to outpatient regimen as documented. * Patient was ordered a diet Lunchtime BSG drawn at 128mg/dL. PLAN FOR INPATIENT GLYCEMIC CONTROL: * Basal insulin * Lantus 5 units SQ x1 today; pharmacy to continue to evaluate. * Bolus insulin * NovoLog per scale ACHS or Q6hrs while NPO * Goal Range: Low 110 mg/dL - High 140 mg/dL * Correction Factor: 45 mg/dL/unit * Nutritional / Prandial insulin per carb ratio of 1 unit per 15 grams CHO consumed * Overnight checks added.
[2022-12-24 17:37] LABS: Appearance Urine Clear (Clear); Bacteria Urine Automated Negative (Negative); Bilirubin Urine Negative (Negative); Blood Urine 1+ (Negative); Cast Urine Automated 0 /lpf (0-5); Color Urine Yellow; Epithelial Cell Urine Auto >30 /lpf (0-5); Glucose Urine UA Negative (Negative); Ketones Urine Negative (Negative); Leukocyte Esterase Urine Negative (Negative); Nitrite Urine Negative (Negative); Protein Urine Negative (Negative); RBC Urine Automated 0-4 /hpf (0-4); Specific Gravity Urine 1.006 (1.000-1.030); Urobilinogen Urine Negative (Negative); WBC Urine Automated 0 /hpf (0-5)
[2022-12-24] MEDS: DULoxetine HCL 20 MG CAP PO SCH (20:32)
[2022-12-25] MEDS: INSULIN ASPART PER UNIT CHARGE SC SCH ×6 (00:18→21:15)
[2022-12-25] MEDS: LACTATED RINGER'S 1,000 ML IV SCH ×2 (03:21→11:18)
[2022-12-25] MEDS: CLOTRIMAZOLE 10 MG TROCHE BUCCAL SCH ×4 (06:20→18:00)
[2022-12-25 07:56] LABS: Albumin Level 3.3 gm/dl (3.4-5.0); Bilirubin Direct 0.3 mg/dl (0-0.2); Calcium 8.5 mg/dl (8.5-10.1); Creatinine Clr Calc Pharmacy 116.2 ml/min; Est GFR (African American) 124.5 ml/min; Est GFR (Non-African American) 107.4 ml/min; Potassium 2.9 mmol/L (3.5-5.1); Total Protein 5.5 gm/dl (6.0-8.3)
[2022-12-25] MEDS ORDERED: LANTUS PER UNIT CHARGE SQ ONE ×3 (08:00→11:45)
[2022-12-25] MEDS ORDERED: POTASSIUM PHOS 3 MMOL/1 ML INFUSION IV STA (08:11)
[2022-12-25] MEDS: busPIRone 15 MG TAB PO SCH ×2 (08:15→21:17)
[2022-12-25] MEDS: GABAPENTIN 300 MG CAP PO SCH ×3 (08:15→21:17)
[2022-12-25 09:24] LABS: Phosphorus 2.8 mg/dl (2.5-4.9)
[2022-12-25] MEDS: DULoxetine HCL 60 MG CAP PO SCH (09:30)
[2022-12-25] MEDS: PANCREAZE (LIPASE 10,500U) CAP PO SCH ×3 (09:30→17:53)
[2022-12-25 10:12] LABS: Estimated Average Glucose 223 mg/dl; Hemoglobin A1C 9.4 % (4.5-5.6)
[2022-12-25] MEDS: POTASSIUM CHLORIDE 20 MEQ/15 ML UDC PO SCH ×2 (11:18→17:53)
[2022-12-25] MEDS ORDERED: FLUCONAZOLE 200 MG/100 ML BAG IV STA (11:56)
--- NOTE | 2022-12-25 12:55 | Pharmacy Report ---
Pharmacy Glycemic Short Note 2 - Date of Service December 25, 2022 - Glycemic Short BSG Results (Last 24 hours): 12/24/22 12/24/22 12/25/22 16:21 20:06 00:06 Glucose POC Glucose 147 H 197 H 349 H* 12/25/22 12/25/22 12/25/22 00:10 04:03 07:10 Glucose 208 H POC Glucose 285 H 137 H 12/25/22 12/25/22 07:26 11:28 Glucose POC Glucose 232 H 260 H OUTPATIENT ANTIDIABETIC REGIMEN: * Lantus 40 units SQ QPM * NovoLo unit for every 10 grams of carb. 150mg/dL target BSG, 30 mg/dL per 1 unit correction factor. Max daily dose 33 units. * Per H&P, patient doesn't recall the last time she used her insulin prior to admission HbA1c: 9.4% (12/25/22) ASSESSMENT: 12/25/22: * BSGs unsurprisingly labile yesterday given presenting DKA with no insulin administration the evening prior (due to hypokalemia) * Conservative initial insulin doses in light of prior inpatient data suggesting much lower basal requirements than reported outpatient ones * BSGs sustained in 200s today, will increase basal and slightly tighten Novolog today * Continues to have electrolyte abnormalities - will hold off on any additional IV insulin administration 12/24/22: * 56 year old female with type 1 diabetes who presented to [facility] ED 12/23/22 due to symptoms of weakness and dehydration, later found to be in DKA. Patient stated she could not remember the last time she had taken her insulin outpatient. HbA1c pending for 12/25/22. * Given low potassium at time of encounter (2.4 mmol/L at 1521), insulin drip was not started. Patient was treated with fluids, and anion gap went from 25 to 12 in about 9 hours. Potassium has been actively been repleted throughout admission. * Today, 12/24/22, pharmacy was consulted to manage the glycemic control of this patient. * BSG's remained in the mid-300's at time of consultation; 0.1 unit/kg dose of IV insulin regular was administered. Provider agreeable as potassium of 3.3 mmol/L was being repleted at time of administration. * 5 units of Lantus was given, and NovoLog with parameters slightly looser than weight-based stress of 2 were initiated given uncertain adherence to outpatient regimen as documented. * Patient was ordered a diet Lunchtime BSG drawn at 128mg/dL. PLAN FOR INPATIENT GLYCEMIC CONTROL: * Basal insulin * Lantus 10 units SC x 1 this morning with additional 10 units SC x 1 at lunch * Reassess in AM * Bolus insulin * NovoLog per scale ACHS or Q6hrs while NPO * Goal Range: Low 110 mg/dL - High 140 mg/dL * Correction Factor: 40 mg/dL/unit * Nutritional / Prandial insulin per carb ratio of 1 unit per 13 grams CHO consumed * Overnight checks added.
--- NOTE | 2022-12-25 15:09 | Hospitalist Progress Note ---
Date of Service December 25, 2022 Assessment & Plan (1) Diabetes type 1, uncontrolled: Plan: Type 1 DM admitted with "DKA" Admitting BSG 438, severely hypovolemic, sodium 128 consistent with pseudohyponatremia, creatinine/BUN ratio 33.7 - Did NOT meet criteria for DKA - pH was not <7.3 and Bicarb not <18 Home insulin regimen: Glargine 40 units every afternoon, insulin aspart 33 daily Medical alcohol negative VBG 7.52/50/26/41 Lactate 2.3, hydrated with 2L of NSS and repeat lactate NL Procalcitonin normal - UA suggests contaminated specimen - Pharmacy following for glycemic control - A1c 9.4% - grossly uncontrolled - safety equipment testing specialist consult placed (2) Oral thrush: Plan: Patient with severe dysphagia for the last 2 to 3 weeks, neck is without swelling/asymmetry/abscess. Posterior pharynx with adherent plaques consistent with thrush CTneck: No acute abnormality is seen in particular no mass or pharyngeal obstruction. Clotrimazole 10 mg kartik 5 times daily ordered-minimal improvement Will start Fluconazole for thrush - 200mg IV x1 now and then 100mg daily - Soft diet (3) Elevated troponin: Plan: - Minimal elevation 22.6 --> 20.9 --> 20.1 --> 17.7 - No CP or EKG changes - No need to trend further - Suspect elevation is secondary to myocardial demand (4) Hypokalemia: Plan: - BMP reviewed this am - Potassium 2.9 - Phosphorous WNL at 2.8 - Replacement KCl ordered with 40 meq liq q6 x 2 doses - Repeat CMP in AM (5) Liver cirrhosis: Plan: - Secondary to alcohol use - CMP reviewed, LFTs mildly elevated/stable (6) Depression with anxiety: Plan: Follows with [place] Continue duloxetine 60 mg a.m., 20 mg p.m.; minimal effect on QT BuSpar 15 p.o. twice daily Plan PT/OT eval. Replace K+. Anticipate home tomorrow. Follow up labs in AM. Will d/w Dr. Capps. Admission and Anticipated Discharge Date Admission Date: December 23, 2022 Subjective Patient seen on daily rounds this morning. She is in bed, reports that her throat is still very sore. Feels weak, hasn't been up out of bed yet. Physical Exam Physical Exam: GENERAL: 56 yo wd/wn middle aged wf AAOx3. NAD. LUNGS: Clear to auscultation bilaterally. CARDIOVASCULAR: Regular rate and rhythm. EXTREMITIES: s/p left BKA, RLE w/o c/c/e Results & Data Results & Data Vital Signs (Past 12 Hours) Vital Signs Temp Pulse Pulse Resp BP Pulse Ox O2 Del Method 12/25/22 10:56 36.9 C 95 H 19 160/80 H 97 Room Air 12/25/22 05:59 97 H 12/25/22 08:10 Room Air 12/25/22 07:28 36.7 C 94 H 18 127/82 98 Room Air Laboratory Results 12/23/22 15:21 12/25/22 07:10 PG Care Time/CCT Total # of Minutes Spent Total Time Spent with Patient: Total time spent is greater than 50% in coordination of care (as documented) at patient's floor/unit and/or counseling patient: Coding Level of Care Code 25561 SUB INP/OBS CARE 2/35MIN Diagnoses Diabetes type 1, uncontrolled E10.65 Oral thrush B37.0 Elevated troponin R77.8 Hypokalemia E87.6 Liver cirrhosis K70.30 Ascites presence: without ascites Hepatic cirrhosis type: alcoholic cirrhosis Depression with anxiety F41.8 (5) Liver cirrhosis Ascites presence: without ascites Hepatic cirrhosis type: alcoholic cirrhosis Qualified Code(s): K70.30 - Alcoholic cirrhosis of liver without ascites
[2022-12-25] MEDS ORDERED: INSULIN ASPART PER UNIT CHARGE SC SCH (16:30)
[2022-12-25] MEDS: guaiFENesin SUGAR FREE 100 MG/5 ML UDC PO PRN (21:15)
[2022-12-25] MEDS: DULoxetine HCL 20 MG CAP PO SCH (21:16)
[2022-12-26] MEDS ORDERED: INSULIN ASPART PER UNIT CHARGE SC SCH
[2022-12-26] MEDS: INSULIN ASPART PER UNIT CHARGE SC SCH ×4 (00:12→12:32)
[2022-12-26] MEDS: CLOTRIMAZOLE 10 MG TROCHE BUCCAL SCH ×4 (06:03→14:46)
--- NOTE | 2022-12-26 08:27 | Hospitalist Progress Note ---
Date of Service December 26, 2022 Assessment & Plan (1) Diabetes type 1, uncontrolled: Plan: acute, uncontrolled moderate risk, A1c 9.4% -Type 1 DM admitted with "DKA" Did NOT meet criteria for DKA - pH was not <7.3 and Bicarb not <18 Home insulin regimen: Glargine 40 units every afternoon, insulin aspart 33 daily - UA suggests contaminated specimen - Pharmacy following for glycemic control - family living educator consult placed (2) Oral thrush: Plan: acute uncontrolled moderate risk Patient with severe dysphagia for the last 2 to 3 weeks, neck is without swelling/asymmetry/abscess. Posterior pharynx with adherent plaques consistent with thrush CTneck: No acute abnormality is seen in particular no mass or pharyngeal obstruction. Clotrimazole failed, Fluconazole ordered for thrush - 200mg IV x1 now and then 100mg daily (3) Elevated troponin: Plan: - Minimal elevation 22.6 --> 20.9 --> 20.1 --> 17.7 - No CP or EKG changes - myocardial demand (4) Hypokalemia: Plan: -replete (5) Liver cirrhosis: Plan: - chronic and stable Secondary to alcohol use, LFTs mildly elevated/stable (6) Depression with anxiety: Plan: chronic and stable Follows with [facility] Continue duloxetine 60 mg a.m., 20 mg p.m.; minimal effect on QT BuSpar 15 p.o. twice daily Admission and Anticipated Discharge Date Admission Date: December 23, 2022 Results & Data Results & Data Vital Signs (Past 12 Hours) Vital Signs Temp Pulse Pulse Resp BP Pulse Ox O2 Del Method 12/26/22 07:32 98.8 F 93 H 17 127/80 96 Room Air 12/26/22 02:34 98.4 F 99 H 18 134/83 97 Room Air 12/25/22 23:00 95 H 12/25/22 22:38 98.2 F 96 H 18 121/82 97 Room Air PG Care Time/CCT Total # of Minutes Spent Total Time Spent with Patient: Total time spent is greater than 50% in coordination of care (as documented) at patient's floor/unit and/or counseling patient: Coding Diagnoses Diabetes type 1, uncontrolled E10.65 Oral thrush B37.0 Elevated troponin R77.8 Hypokalemia E87.6 Liver cirrhosis K70.30 Ascites presence: without ascites Hepatic cirrhosis type: alcoholic cirrhosis Depression with anxiety F41.8 (5) Liver cirrhosis Ascites presence: without ascites Hepatic cirrhosis type: alcoholic cirrhosis Qualified Code(s): K70.30 - Alcoholic cirrhosis of liver without ascites
[2022-12-26 08:32] LABS: Albumin Globulin Ratio 1.4 (0.9-2); Albumin Level 3.3 gm/dl (3.4-5.0); BUN Creatinine Ratio 22.4 (10-20); Bilirubin,Total 0.7 mg/dl (0.2-1.0); Calcium 8.6 mg/dl (8.6-10.3); Creatinine Clr Calc Pharmacy 100.2 ml/min; Est GFR (African American) 118.6 ml/min; Est GFR (Non-African American) 102.3 ml/min; Globulin 2.3 gm/dl (2.5-4.0); Magnesium 1.7 mg/dl (1.7-2.4); Phosphorus 2.8 mg/dl (2.5-4.9); Potassium 3.2 mmol/L (3.5-5.1); Total Protein 5.6 gm/dl (6.0-8.3)
[2022-12-26] MEDS: PANCREAZE (LIPASE 10,500U) CAP PO SCH ×2 (08:39→12:29)
[2022-12-26] MEDS: DULoxetine HCL 60 MG CAP PO SCH (08:39)
[2022-12-26] MEDS: busPIRone 15 MG TAB PO SCH (08:40)
[2022-12-26] MEDS: GABAPENTIN 300 MG CAP PO SCH ×2 (08:40→14:46)
[2022-12-26] MEDS: guaiFENesin SUGAR FREE 100 MG/5 ML UDC PO PRN (08:57)
[2022-12-26] MEDS ORDERED: LANTUS PER UNIT CHARGE SQ SCH (09:00)
[2022-12-26] MEDS ORDERED: FLUCONAZOLE 100 MG TAB PO SCH (09:00)
[2022-12-26] MEDS ORDERED: FIRST - Mouthwash BLM 119 ML PO PRN (10:09)
[2022-12-26] MEDS ORDERED: FIRST - Mouthwash BLM 5 ML UDP PO ONE (10:09)
--- NOTE | 2022-12-26 13:48 | Discharge Summary ---
Date of Service December 26, 2022 Admission HPI Per Admitting Provider Gem (Yin) Asim is a 56-year-old female with a past medical history of type 1 diabetes mellitus, IPMN, liver cirrhosis, GI bleed, alcohol use who presents to the emergency department for weakness and being nearly bedridden for 3 weeks with incontinence. Was found by family members on kept in bed with a blood sugar of 700. Patient reports she has had a sore throat for 3 weeks, is extremely fatigued and thirsty. Discussed with patients mother at the bedside. He rmother returned from a trip to [place] to come check on her. had been sick for 2 weeks prior. Was laying in bed, not eating. She was so tired she could not move off the couch and was incontinent. Called EMS. Past hx of alcoholism, rare breakthrough episodes last year to her mothers knowledge. 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 Yin reports an extremely sore throat 2-3 weeks ago. Couldn't swallow or drink anything. Has been taking only small sips of water since.Her throatfeels about the same now, very raw. NO history of similar sx. She has had some chills, but no fevers Has had a 'terrible cough' for 2 weeks which seems to have improved by time or ER admission. Cough was productive for white/clear phlegm. No chest pain or shortness of breath +vomiting in the last week which has been black in the last few days. Has been trying to keep root beer down which is black. No black or bloody BMs, but have been dark and green colored. Has not taking her insulin in many days, does not remember last time she used it. Has not been taking medications since being sick. No chest pain, but strong throat pain. Vomiting ever y 5-30 mintues in the last two days. Takes sips and automatically throws up. Denies recent alcohol use Medical History: Reviewed Medications: Reviewed. Haloperidol, but not sure the allergy Surgical History: Reviewed Family history: Reviewed Allergies: Reviewed Social History: no recent alcohol use. Cigarette use, pack every few days. Code Status: DNR/DNMI Principal Diagnosis oral esophageal thrush dysphagia diabetes Discharge Exam Patient has mild hoarseness can swallow her secretions is eating pudding and drinking tea No stridor no respiratory distress Past physical therapy with robust response Discharge Data Allergies Allergy/AdvReac Type Severity Reaction Status Date / Time haloperidol [From Haldol] AdvReac Unknown Unknown Verified 10/01/22 14:39 Consultations 12/23/22 16:50 ED Decision to Admit Stat Ordered Studies 12/23/22 16:27 CT soft tissue neck wo con Stat Hospital Course (1) Diabetes type 1, uncontrolled: acute, uncontrolled moderate risk, A1c 9.4% -Type 1 DM admitted with "DKA" Did NOT meet criteria for DKA - pH was not <7.3 and Bicarb not <18 Home insulin regimen: Glargine 40 units every afternoon, insulin aspart 33 daily - (2) Oral thrush: acute uncontrolled moderate risk Patient with severe dysphagia for the last 2 to 3 weeks, neck is without swelling/asymmetry/abscess. Posterior pharynx with adherent plaques consistent with thrush CTneck: No acute abnormality is seen in particular no mass or pharyngeal obstruction. Clotrimazole failed, Fluconazole ordered for thrush - 200mg IV x1 then 100mg daily Added Magic mouthwash for discomfort control (3) Elevated troponin: - Minimal elevation 22.6 --> 20.9 --> 20.1 --> 17.7 - No CP or EKG changes - myocardial demand (4) Hypokalemia: -replete (5) Liver cirrhosis: - chronic and stable Secondary to alcohol use, LFTs mildly elevated/stable (6) Depression with anxiety: chronic and stable Follows with [facility] Continue duloxetine 60 mg a.m., 20 mg p.m.; minimal effect on QT BuSpar 15 p.o. twice daily Total Time Total Time Spent Total Time Spent (In Minutes): It required greater than 30 minutes to prepare this patient for discharge Discharge Plan Discharge Items Patient Disposition: Home - Self-Care Reason For Visit: DKA Discharge Diagnosis: oral esophageal thrush odynophagia diabetes Condition on Discharge: Good Activity: Per Instructions section Non-emergency contact: Primary Care Provider Call non-emergency contact if: your symptoms worsen Follow-up/Referrals: Ana Lilia Madrid MD [Primary Care Provider] - 12/31/22 11:00 am (will be seen by Kisha CONNER at [facility] [place] ) Diet: Regular Diet Texture: Dental soft (bite-sized) Addtl Attending Provider Instructions: please eat soft bland food for the next week use liquid medicines carefully as it may numb mouth and if you eat hard foods after you may injure yourself finish all of the antifungal medicines Pending Studies at Discharge: No Stand-Alone Forms: My [facility], Smoking Cessation Medications and DC Order Prescriptions: New fluconazole 100 mg Tablet 100 mg PO QAM Qty: 10 0RF First - Mouthwash Blm [Magic Mouthwash] 5 ml PO Q6H PRN (Reason: sore throat) Qty: 1 1RF Rx Instructions: please give a minimum of 100 ml Continued buspirone 15 mg tablet 15 mg PO BID Qty: 60 5RF duloxetine [Cymbalta] 20 mg capsule,delayed release(DR/EC) 20 mg PO HS Qty: 30 5RF Hold Instructions: does not take duloxetine [Cymbalta] 60 mg capsule,delayed release(DR/EC) 60 mg PO QAM Qty: 30 5RF gabapentin 300 mg capsule 300 mg PO TID Qty: 90 5RF Creon 6,000-19,000 -30,000 unit capsule,delayed release(DR/EC) 1 cap PO TID Qty: 90 5RF cholecalciferol (vitamin D3) 1,000 unit capsule 1,000 units PO HS multivitamin Tablet 1 tab PO DAILY insulin aspart U-100 [Novolog FlexPen U-100 Insulin] 100 unit/mL (3 mL) insulin pen 33 unit subcut DAILY MDD 33 Qty: 2 3RF Rx Instructions: Inject 1 unit of insulin for each 10 grams of carb. Use scale of 150 target with correction factor of 30 insulin glargine [Lantus Solostar U-100 Insulin] 100 unit/mL (3 mL) insulin pen 40 unit subcut QPM MDD 50 Qty: 3 3RF cyanocobalamin (vitamin B-12) [Vitamin B-12] 1,000 mcg tablet 1,000 mcg PO DAILY diphenhydramine HCl [Benadryl Allergy] 25 mg Tablet 25 - 50 mg PO Q6H PRN (Reason: Allergy Symptoms) folic acid 1 mg Tablet 1 mg PO DAILY clobetasol 0.05 % solution 1 applic topical DAILY PRN (Reason: flare) Rx Instructions: Apply to scalp once daily as needed for flaring. Discontinued atorvastatin 20 mg tablet 20 mg PO QPM Qty: 30 2RF ascorbic acid (vitamin C) [Vitamin C] 500 mg tablet 500 mg PO Q OTHER DAY Rx Instructions: 500 mg PO every other day; Discharge Orders: Discharge Order (Routine); Ordered 12/26/22 Ordered By: Mike Capps Admission Data Admit Date/Time: 12/23/22 18:24 Attending Provider: Mike Capps Admit Provider: Riki Jacinto Primary Care Provider: Ana Lilia Madrid V. Other Providers: Riki Jacinto Coding Level of Care Code 40617 INP/OBS DISCH >30 MIN Diagnoses Diabetes type 1, uncontrolled E10.65 Oral thrush B37.0 Elevated troponin R77.8 Hypokalemia E87.6 Liver cirrhosis K70.30 Ascites presence: without ascites Hepatic cirrhosis type: alcoholic cirrhosis Depression with anxiety F41.8
== END 2022-12-26 16:43 | disposition home or self-care (01) | DRG 638 ==
LOC: ED 15:05 → 2S 18:24 → SUATTDRO 18:24 → 2S 20:03

== ENCOUNTER 2023-03-10 20:49 | Inpatient (IN) ==
[2023-03-10 23:28] LABS: Basophils % (auto) 1.2 %; Eosinophils # (auto) 0.05 K/uL (0-0.50); Eosinophils % (auto) 0.6 %; Hematocrit (blood only) 45.2 % (37.0-47.0); Hemoglobin 15.9 g/dl (12.0-16.0); Immature Granulocytes # (auto) 0.01 K/uL (0.01-0.20); Immature Granulocytes % (auto) 0.1 %; Lymphocytes # (auto) 3.01 K/uL (1.2-3.4); Lymphocytes % (auto) 36.5 %; Mean Corpuscular Hemoglobin 30.6 pg (25.0-34.0); Mean Corpuscular Hgb Conc 35.2 g/dL (32.0-36.0); Mean Corpuscular Volume 87.1 fL (80.0-100.0); Mean Platelet Volume 10.2 fL (9.4-12.4); Monocytes # (auto) 0.32 K/uL (0.11-0.59); Monocytes % (auto) 3.9 %; Neutrophils # (auto) 4.75 K/uL (1.40-6.50); Neutrophils % (auto) 57.7 %; Platelet Count 237 K/uL (130-400); RDW Coefficient of Variation 14.2 % (11.5-14.5); RDW Standard Deviation 45.3 fL (36.4-46.3); Red Blood Count 5.19 M/uL (4.20-5.40); White Blood Count 8.24 K/ul (4.8-10.8)
[2023-03-10 23:33] LABS: Albumin Globulin Ratio 1.4 (0.9-2); Albumin Level 4.1 gm/dl (3.4-5.0); BUN Creatinine Ratio 13.2 (10-20); Bilirubin,Total 0.3 mg/dl (0.2-1.0); Calcium 8.7 mg/dl (8.6-10.3); Creatinine Clr Calc Pharmacy 109.6 ml/min; Est GFR (African American) 122.2 ml/min; Est GFR (Non-African American) 105.4 ml/min; Potassium 4.1 mmol/L (3.5-5.1); Total Protein 7.1 gm/dl (6.0-8.3)
--- NOTE | 2023-03-10 23:39 | Emergency Department Note ---
Impression & Plan Alcohol abuse, Diabetes type 1, uncontrolled, Fall, Abrasion head ED Provider Note Provider: Isidoro Vincent MD DATE OF SERVICE: 03/10/2023 CHIEF COMPLAINT: Fell, hit head HISTORY OF PRESENT ILLNESS: Patient is a 57-year-old female history of type 1 diabetes, liver cirrhosis, and alcohol use presenting here today from her home via ambulance. Patient states that she fell out of her wheelchair yesterday and struck her head on the ground and was knocked out for a period. Woke up with some blood in the back of her head was able to get back in her wheelchair and continue. States she drank yesterday. EMS was called when mother went to visit the patient and found her passed out in her wheelchair. EMS contact me prior to arrival and patient was not inclined to come here but was slurring her speech and they have concerns about her head injury. Brought here for evaluation and complains of a slight headache but denies other significant pain to me. I reported to nursing the little bit of lower buttock pain. Denies any use of blood thinners to me. States she lives by herself and that her mother is a annoyance to her. PAST MEDICAL HISTORY: As noted above MEDICATIONS: Reviewed home medications SOCIAL HISTORY: History of alcohol use, lives by herself PHYSICAL EXAM: GENERAL: alert and oriented in no acute distress on stretcher resting upon initial evaluation Head: Patient with dried matted blood in the back of the head after using peroxide and saline to clean the area appears to have left occipital parietal hematoma without clear laceration or foreign body. EYES: No injection, discharge or icterus. PERRL, EOMI. NECK: Trachea midline. Supple without midline cervical tenderness with a little bit of buffalo hump noted. ENT: Mucous membranes pink and moist. LUNGS: Airway patent. No retractions. Breath sounds clear HEART: Regular rate and rhythm. No chest wall tenderness ABDOMEN: Soft and non-tender, without guarding or rebound. BACK: No midline tenderness, no SI joint tenderness. No bilateral flank tenderness. SKIN: Acyanotic, warm, dry, without rashes EXTREMITIES: Without swelling, tenderness or deformity however with noted left below the knee amputation. NEUROLOGICAL: No aphasia. No facial droop but is slurring her speech mildly.. Normal strength and tone in the extremities. Sensation to gross touch normal. EK bpm sinus tachycardia. No PVC or PAC. No acute ST segment elevation noted with a QTc of 460. CONTINUOUS CARDIAC MONITORING: was ordered and showed a heart rate of 100s-110s bpm in sinus tachycardia GCS 15. Patient's laboratory studies and imaging reviewed. Differential includes Fracture, dislocation, contusion, intra-abdominal, pneumothorax, intrathoracic, intracranial, neurologic, compartment syndrome, rhabdomyolysis, as well as other pathologies. IMPRESSION/MEDICAL DECISION MAKING: Patient slurring her speech and appears intoxicated. Does evidence of dried blood to the back of the head concerning for possible head injury as etiology as well. Cleaned the head and matted dried blood with peroxide and saline do not see a clear laceration. Wound reportedly from yesterday would also not be that amenable to a primary closure. Given the unclear history we will complete blood work as well as diffuse imaging. Denies other significant pain on my exam and no other significant evidence of trauma on exam. All level almost 500. No significant cytosis or anemia on blood work. Slight anion gap but glucose 63. Doubt DKA. Slight AST and alkaline phosphatase elevation with normal bilirubin. LFTs in the past also mildly elevated. CT imaging completed of the head, cervical spine, chest and abdomen pelvis and reports reviewed. No evidence of rhabdomyolysis on labs. CT of the head, cervical spine, chest, and abdomen pelvis only with noted subcutaneous left parietal contusion. No acute bleeding or fractures otherwise noted. Cystic lesion of the pancreas noted but has a history of similar from the chart. Later begins develop some dry heaving. She did accidentally remove her IV. Given some Zofran. Seems intoxicated/tipsy and given a bit of Ativan to help keep her calm. Attempting oral intake to help with her borderline blood sugar in the 60s. Given her significant alcohol intoxication with symptoms and prolonged period for recovery from this as well as monitoring for alcohol withdrawal with her diabetes, discussed with the hospitalist for further observation. DIAGNOSIS: Occipital head abrasion, severe alcohol intoxication, nausea, type 1 diabetes DISPOSITION: Hospitalist will evaluate Patient was agreeable with this plan. Past Med/Surg History Medical History Acute head injury Alcohol withdrawal seizure Aspiration pneumonia Caustic esophageal injury Chronic pancreatitis Cirrhosis of liver Depression with anxiety Diabetes type 1, uncontrolled Diabetes type 1, uncontrolled Diabetic peripheral neuropathy associated with type 1 diabetes mellitus Dysesthesia Dyslipidemia Encephalomalacia Exocrine pancreatic insufficiency History of alcohol abuse History of GI bleed History of left below knee amputation Hydrosalpinx Hypoxia IPMN (intraductal papillary mucinous neoplasm) Left against medical advice Leukopenia Lipoma Polycystic ovarian syndrome Psoriasis SBO (small bowel obstruction) Thrombocytopenia Tobacco dependence Vitamin D deficiency Surgical History Amputation of left lower extremity History of ankle surgery History of tooth extraction Family History Uncle Diabetes Mother Breast cancer Sister Breast cancer Father Prostate cancer Other Family history of breast cancer in mother Family history of breast cancer in sister Denies family history of Ovarian cancer Myocardial infarction Colorectal cancer Social History Smoking Status: Unknown if ever smoked Tobacco Type: Cigarettes packs per day: 0.75; Cigarettes Per Day: 1/2 pack; Second Hand Exposure: No; Do You Dip or Chew Tobacco: No; Hx Alcohol Use: Yes Alcohol type: wine Hx Substance Use: Yes Preferred Language: American Communication Ability: Effective Visual Impairment: No Limitations Tack Welder Required: No Beliefs That Will Affect Care: None marital status: marital status details: no children Current Living Situation: Alone Current Living Situation Comment: unknown current occupational status: disabled Feels Safe at Home: Yes Assistive Devices: Prosthesis, Walker and Wheelchair Allergies Allergies Allergy/AdvReac Type Severity Reaction Status Date / Time haloperidol [From Haldol] AdvReac Unknown Unknown Verified 03/11/23 01:46 Home Meds Home Medications Medication Instructions Recorded Confirmed cholecalciferol (vitamin D3) 25 1,000 units PO HS 06/23/19 12/23/22 mcg (1,000 unit) capsule cyanocobalamin (vitamin B-12) 1,000 mcg PO DAILY 05/10/20 12/23/22 1,000 mcg tablet (Vitamin B-12) diphenhydramine HCl 25 mg tablet 25 - 50 mg PO Q6H PRN Allergy 10/25/20 12/23/22 (Benadryl Allergy) Symptoms multivitamin 1 tab PO DAILY 12/24/21 12/23/22 folic acid 1 mg tablet 1 mg PO DAILY 05/21/22 12/23/22 clobetasol 0.05 % scalp solution 1 applic topical DAILY PRN flare 12/23/22 12/23/22 Previous Rx's Medication Instructions Recorded buspirone 15 mg tablet 15 mg PO BID #60 tabs 04/30/22 insulin aspart U-100 100 unit/mL 33 unit (0.33 mL) subcut DAILY #2 06/06/22 (3 mL) subcutaneous pen (Novolog Boxes FlexPen U-100 Insulin aspart) insulin glargine 100 unit/mL (3 40 unit (0.4 mL) subcut QPM #3 06/06/22 mL) subcutaneous pen (Lantus Boxes Solostar U-100 Insulin) duloxetine 20 mg capsule,delayed 20 mg PO HS #30 caps 10/02/22 release (Cymbalta) duloxetine 60 mg capsule,delayed 60 mg PO QAM #30 caps 10/02/22 release (Cymbalta) gabapentin 300 mg capsule 300 mg PO TID #90 caps 11/18/22 [id number] 1 cap PO TID #90 caps 11/22/22 6,000-19,000-30,000 unit capsule,delayed rel (Creon) FIRST - Mouthwash BLM [Magic 5 ml PO Q6H PRN sore throat #1 btl 12/26/22 Mouthwash] fluconazole 100 mg tablet 100 mg PO QAM #10 tabs 12/26/22 Results & Data (ED) Vital Signs Vital Signs - 24 hr 03/10/23 20:50 03/10/23 20:50 03/10/23 21:03 Temperature 36.6 C 36.6 C Temperature Source Oral Oral Pulse Rate 100 H 91 H Pulse Rate [Right Finger] 100 H Pulse Rhythm Regular Pulse Rhythm [Right Finger] Regular Pulse Strength Normal Pulse Strength [Right Finger] Normal Respiratory Rate 18 9 L Respiratory Effort / Characteristics Non-Labored Spontaneous Non-Labored Spontaneous Respiratory Depth Normal Normal Respiratory Pattern Regular Bradypnea Blood Pressure 142/98 H Blood Pressure [Right Arm] 142/98 H Blood Pressure Mean 112 Blood Pressure Mean [Right Arm] 112 Blood Pressure Position Lying Blood Pressure Position [Right Arm] Lying Pulse Oximetry 95 95 Oxygen Delivery Method Room Air Room Air Sepsis Recent Fever Within 48 Hours No Sepsis New/Unexplained Change in Mental Status Yes Sepsis Action Taken by Nursing No Action Required 03/11/23 01:19 Temperature Temperature Source Pulse Rate 125 H Pulse Rate [Right Finger] Pulse Rhythm Pulse Rhythm [Right Finger] Pulse Strength Pulse Strength [Right Finger] Respiratory Rate Respiratory Effort / Characteristics Respiratory Depth Respiratory Pattern Blood Pressure Blood Pressure [Right Arm] Blood Pressure Mean Blood Pressure Mean [Right Arm] Blood Pressure Position Blood Pressure Position [Right Arm] Pulse Oximetry Oxygen Delivery Method Sepsis Recent Fever Within 48 Hours Sepsis New/Unexplained Change in Mental Status Sepsis Action Taken by Nursing Laboratory Data 03/10/23 21:03/10/23 21: Lab Results 03/10/23 03/10/23 03/10/23 Range/Units 21: 21: 21: WBC 8.24 (4.8-10.8) K/ul RBC 5.19 (4.20-5.40) M/uL Hgb 15.9 (12.0-16.0) g/dl Hct 45.2 (37.0-47.0) % MCV 87.1 (80.0-100.0) fL MCH 30.6 (25.0-34.0) pg MCHC 35.2 (32.0-36.0) g/dL RDW Std Deviation 45.3 (36.4-46.3) fL RDW Coeff of Ethel 14.2 (11.5-14.5) % Plt Count 237 (130-400) K/uL MPV 10.2 (9.4-12.4) fL Immature Gran % (Auto) 0.1 % Neut % (Auto) 57.7 % Lymph % (Auto) 36.5 % Pierce % (Auto) 3.9 % Eos % (Auto) 0.6 % Baso % (Auto) 1.2 % Neut # (Auto) 4.75 (1.40-6.50) K/uL Lymph # (Auto) 3.01 (1.2-3.4) K/uL Pierce # (Auto) 0.32 (0.11-0.59) K/uL Eos # (Auto) 0.05 (0-0.50) K/uL Baso # (Auto) 0.10 (0-0.2) K/uL Immature Gran # (Auto) 0.01 (0.01-0.20) K/uL PT Cancelled INR Cancelled Sodium 143 (136-145) mmol/L Potassium 4.1 (3.5-5.1) mmol/L Chloride 104 (98-107) mmol/L Carbon Dioxide 26 (21-32) mmol/L Anion Gap 13 H (3-11) BUN 7 (6-23) mg/dl Creatinine 0.53 L (0.6-1.2) mg/dl Est Cr Clr Drug Dosing 109.6 ml/min Est GFR ( Amer) 122.2 ml/min Est GFR (Non-Af Amer) 105.4 ml/min BUN/Creatinine Ratio 13.2 (10-20) Glucose 63 L (70-99(Fasting)) mg/dl POC Glucose (70-99) mg/dl Calcium 8.7 (8.6-10.3) mg/dl Total Bilirubin 0.3 (0.2-1.0) mg/dl AST 48 H (13-39) U/L ALT 32 (7-52) U/L Alkaline Phosphatase 154 H (34-104) U/L Total Creatine Kinase 61 (26-192) U/L Total Protein 7.1 (6.0-8.3) gm/dl Albumin 4.1 (3.4-5.0) gm/dl Globulin 3.0 (2.5-4.0) gm/dl Albumin/Globulin Ratio 1.4 (0.9-2) Ethyl Alcohol mg/dL (<10.0) mg/dl SARS-CoV-2, RNA, NAAT (NEGATIVE) 03/10/23 03/10/23 03/11/23 Range/Units 21:05 23:46 00:37 WBC (4.8-10.8) K/ul RBC (4.20-5.40) M/uL Hgb (12.0-16.0) g/dl Hct (37.0-47.0) % MCV (80.0-100.0) fL MCH (25.0-34.0) pg MCHC (32.0-36.0) g/dL RDW Std Deviation (36.4-46.3) fL RDW Coeff of Ethel (11.5-14.5) % Plt Count (130-400) K/uL MPV (9.4-12.4) fL Immature Gran % (Auto) % Neut % (Auto) % Lymph % (Auto) % Pierce % (Auto) % Eos % (Auto) % Baso % (Auto) % Neut # (Auto) (1.40-6.50) K/uL Lymph # (Auto) (1.2-3.4) K/uL Pierce # (Auto) (0.11-0.59) K/uL Eos # (Auto) (0-0.50) K/uL Baso # (Auto) (0-0.2) K/uL Immature Gran # (Auto) (0.01-0.20) K/uL PT INR Sodium (136-145) mmol/L Potassium (3.5-5.1) mmol/L Chloride (98-107) mmol/L Carbon Dioxide (21-32) mmol/L Anion Gap (3-11) BUN (6-23) mg/dl Creatinine (0.6-1.2) mg/dl Est Cr Clr Drug Dosing ml/min Est GFR ( Amer) ml/min Est GFR (Non-Af Amer) ml/min BUN/Creatinine Ratio (10-20) Glucose (70-99(Fasting)) mg/dl POC Glucose 64 L* (70-99) mg/dl Calcium (8.6-10.3) mg/dl Total Bilirubin (0.2-1.0) mg/dl AST (13-39) U/L ALT (7-52) U/L Alkaline Phosphatase (34-104) U/L Total Creatine Kinase (26-192) U/L Total Protein (6.0-8.3) gm/dl Albumin (3.4-5.0) gm/dl Globulin (2.5-4.0) gm/dl Albumin/Globulin Ratio (0.9-2) Ethyl Alcohol mg/dL 497.7 H (<10.0) mg/dl SARS-CoV-2, RNA, NAAT NEGATIVE (NEGATIVE) 03/11/23 Range/Units 01:02 WBC (4.8-10.8) K/ul RBC (4.20-5.40) M/uL Hgb (12.0-16.0) g/dl Hct (37.0-47.0) % MCV (80.0-100.0) fL MCH (25.0-34.0) pg MCHC (32.0-36.0) g/dL RDW Std Deviation (36.4-46.3) fL RDW Coeff of Ethel (11.5-14.5) % Plt Count (130-400) K/uL MPV (9.4-12.4) fL Immature Gran % (Auto) % Neut % (Auto) % Lymph % (Auto) % Pierce % (Auto) % Eos % (Auto) % Baso % (Auto) % Neut # (Auto) (1.40-6.50) K/uL Lymph # (Auto) (1.2-3.4) K/uL Pierce # (Auto) (0.11-0.59) K/uL Eos # (Auto) (0-0.50) K/uL Baso # (Auto) (0-0.2) K/uL Immature Gran # (Auto) (0.01-0.20) K/uL PT 10.4 INR 0.9 Sodium (136-145) mmol/L Potassium (3.5-5.1) mmol/L Chloride (98-107) mmol/L Carbon Dioxide (21-32) mmol/L Anion Gap (3-11) BUN (6-23) mg/dl Creatinine (0.6-1.2) mg/dl Est Cr Clr Drug Dosing ml/min Est GFR ( Amer) ml/min Est GFR (Non-Af Amer) ml/min BUN/Creatinine Ratio (10-20) Glucose (70-99(Fasting)) mg/dl POC Glucose (70-99) mg/dl Calcium (8.6-10.3) mg/dl Total Bilirubin (0.2-1.0) mg/dl AST (13-39) U/L ALT (7-52) U/L Alkaline Phosphatase (34-104) U/L Total Creatine Kinase (26-192) U/L Total Protein (6.0-8.3) gm/dl Albumin (3.4-5.0) gm/dl Globulin (2.5-4.0) gm/dl Albumin/Globulin Ratio (0.9-2) Ethyl Alcohol mg/dL (<10.0) mg/dl SARS-CoV-2, RNA, NAAT (NEGATIVE) Administered Medications Discontinued Medications Sodium Chloride (Nss 1000ml) 500 mls @ 999 mls/hr IV .Q31M ONE Stop: 03/11/23 01:09 Last Admin: 03/11/23 01:23 Dose: 999 mls/hr Documented By: COMMUNICATION EQUIPMENT REPAIRER Lorazepam (Lorazepam 2 Mg/1 Ml Vial) 1 mg IV NOW STA Stop: 03/11/23 00:40 Last Admin: 03/11/23 01:20 Dose: 1 mg Documented By: COMMUNICATION EQUIPMENT REPAIRER Ondansetron HCl (Ondansetron Inj 2 Mg/Ml 2 Ml Vial) 4 mg IM NOW STA Stop: 03/11/23 00:30 Last Admin: 03/11/23 00:31 Dose: 4 mg Documented By: COMMUNICATION EQUIPMENT REPAIRER Imaging Data Radiologist's Impression: Abdomen/Pelvis CT 03/10/23 22:56 Exam(s): CT ABDOMEN + PELVIS Without Contrast EXAM: CT Abdomen and Pelvis Without Intravenous Contrast CLINICAL HISTORY: Reason for exam: Trauma, fall. TECHNIQUE: Axial computed tomography images of the abdomen and pelvis without intravenous contrast. Automated exposure control was utilized for the study. A dose lowering technique was utilized adhering to the principles of ALARA. COMPARISON: No relevant prior studies available. FINDINGS: Lung bases: Unremarkable. No mass. No consolidation. Mediastinum: Small hiatal hernia. ABDOMEN: Liver: Unremarkable. Gallbladder and bile ducts: Unremarkable. No calcified stones. No ductal dilation. Pancreas: Calcified pancreas, concerning for sequelae of pancreatitis. Low-attenuation cystic lesion in the region of the pancreatic head measures 2.2 x 1.9 cm. This should be evaluated with a pancreatic protocol MRI. No ductal dilation. Spleen: Unremarkable. No splenomegaly. Adrenals: Unremarkable. No mass. Kidneys and ureters: Unremarkable. No hydronephrosis or nephrolithiasis. Stomach and bowel: Moderate fecal retention, correlate for constipation. Diverticulosis, without acute diverticulitis. No small bowel obstruction. No free intraperitoneal air. PELVIS: Appendix: No findings to suggest acute appendicitis. Bladder: Unremarkable. No stones. Reproductive: Unremarkable as visualized. ABDOMEN and PELVIS: Intraperitoneal space: Unremarkable. No free air. No significant fluid collection. Bones/joints: Degenerative changes of the spine. Old, healed fracture of the posterior RIGHT 10th and 11th ribs. No dislocation. No acute fractures. Soft tissues: Unremarkable. Vasculature: Atherosclerotic changes of the aorta. No abdominal aortic aneurysm. Lymph nodes: Unremarkable. No enlarged lymph nodes. IMPRESSION: 1. No acute fractures. 2. Calcified pancreas, concerning for sequelae of pancreatitis. Low-attenuation cystic lesion in the region of the pancreatic head measures 2.2 x 1.9 cm. This should be evaluated with a pancreatic protocol MRI. 3. Small hiatal hernia. 4. Moderate fecal retention, correlate for constipation. Diverticulosis, without acute diverticulitis. No small bowel obstruction. No free intraperitoneal air. Electronically signed by: Brody Kumar MD 03/11/23 00:[address] 03/10/23 22:56 Exam(s): CT C SPINE EXAM: CT Cervical Spine Without Intravenous Contrast CLINICAL HISTORY: Reason for exam: Trauma, fall. TECHNIQUE: Axial computed tomography images of the cervical spine without intravenous contrast. Automated exposure control was utilized for the study. A dose lowering technique was utilized adhering to the principles of ALARA. COMPARISON: No relevant prior studies available. FINDINGS: The vertebral body heights are maintained. The craniocervical junction is intact. The atlanto-dens interval is maintained. The dens is intact. There is no spondylolisthesis. Multilevel cervical spondylosis and degenerative disc disease. Straightening of the cervical lordosis. The unenhanced neck soft tissues are grossly unremarkable. The visualized lung apices are grossly clear. IMPRESSION: No acute fracture or subluxation of the cervical spine. Electronically signed by: Brody Kumar MD 03/11/23 00:[address] 03/10/23 22:56 Exam(s): CT CHEST Without Contrast EXAM: CT Chest Without Intravenous Contrast CLINICAL HISTORY: Reason for exam: Trauma, fall. TECHNIQUE: Axial computed tomography images of the chest without intravenous contrast. Automated exposure control was utilized for the study. A dose lowering technique was utilized adhering to the principles of ALARA. COMPARISON: No relevant prior studies available. FINDINGS: LUNGS: No focal consolidation, pleural effusion, or pneumothorax. HEART: Within normal limits. VASCULATURE: Atherosclerotic changes of aorta. THYROID: Within normal limits. MEDIASTINUM + LYMPHADENOPATHY: There are no pathologically enlarged mediastinal, hilar, or axillary lymph nodes. MUSCULOSKELETAL: No acute fracture. Old, healed posterior bilateral rib fractures. IMPRESSION: No pulmonary contusion or pneumothorax. No acute fractures. Electronically signed by: Brody Kumar MD 03/11/23 00:[address] 03/10/23 22:56 Exam(s): CT HEAD Without Contrast EXAM: CT Head Without Intravenous Contrast CLINICAL HISTORY: Reason for exam: Trauma, posterior head trauma, loc. TECHNIQUE: Axial computed tomography images of the head/brain without intravenous contrast. Automated exposure control was utilized for the study. A dose lowering technique was utilized adhering to the principles of ALARA. COMPARISON: No relevant prior studies available. FINDINGS: No acute intracranial hemorrhage. No midline shift or mass effect. The territorial song-white matter differentiation is maintained throughout. Age-related cerebral volume loss. Periventricular and subcortical white matter hypoattenuation, consistent with chronic microangiopathy. The visualized orbits appear grossly unremarkable. The calvarium is intact. The visualized paranasal sinuses and mastoid air cells are grossly clear. LEFT parietal scalp soft tissue swelling. IMPRESSION: No acute intracranial hemorrhage, midline shift, or mass effect. LEFT parietal scalp soft tissue swelling. Electronically signed by: Brody Kumar MD 03/10/23 23:59 PM Discharge Plan Visit Data Chief Complaint: Fall Stated Complaint: FELL YESTERDAY, INTOXICATED ED Provider: Isidoro Vincent Discharge Problem: Alcohol abuse, Diabetes type 1, uncontrolled, Fall, Abrasion head Patient Disposition: Being Evaluated by Hospitalist Forms Stand Alone Forms: [facility] Prescriptions Prescriptions: No Action buspirone 15 mg tablet 15 mg PO BID Qty: 60 5RF duloxetine [Cymbalta] 20 mg capsule,delayed release(DR/EC) 20 mg PO HS Qty: 30 5RF Hold Instructions: does not take duloxetine [Cymbalta] 60 mg capsule,delayed release(DR/EC) 60 mg PO QAM Qty: 30 5RF gabapentin 300 mg capsule 300 mg PO TID Qty: 90 5RF Creon 6,000-19,000 -30,000 unit capsule,delayed release(DR/EC) 1 cap PO TID Qty: 90 5RF cholecalciferol (vitamin D3) 1,000 unit capsule 1,000 units PO HS multivitamin Tablet 1 tab PO DAILY insulin aspart U-100 [Novolog FlexPen U-100 Insulin] 100 unit/mL (3 mL) insulin pen 33 unit subcut DAILY MDD 33 Qty: 2 3RF Rx Instructions: Inject 1 unit of insulin for each 10 grams of carb. Use scale of 150 target with correction factor of 30 insulin glargine [Lantus Solostar U-100 Insulin] 100 unit/mL (3 mL) insulin pen 40 unit subcut QPM MDD 50 Qty: 3 3RF cyanocobalamin (vitamin B-12) [Vitamin B-12] 1,000 mcg tablet 1,000 mcg PO DAILY diphenhydramine HCl [Benadryl Allergy] 25 mg Tablet 25 - 50 mg PO Q6H PRN (Reason: Allergy Symptoms) folic acid 1 mg Tablet 1 mg PO DAILY clobetasol 0.05 % solution 1 applic topical DAILY PRN (Reason: flare) Rx Instructions: Apply to scalp once daily as needed for flaring. fluconazole 100 mg Tablet 100 mg PO QAM Qty: 10 0RF First - Mouthwash Blm [Magic Mouthwash] 5 ml PO Q6H PRN (Reason: sore throat) Qty: 1 1RF Rx Instructions: please give a minimum of 100 ml Referrals Referrals: Chaz Cassidy, [Primary Care Provider] -
--- NOTE | 2023-03-11 | CT Scan Report ---
Exam(s): CT HEAD Without Contrast EXAM: CT Head Without Intravenous Contrast CLINICAL HISTORY: Reason for exam: Trauma, posterior head trauma, loc. TECHNIQUE: Axial computed tomography images of the head/brain without intravenous contrast. Automated exposure control was utilized for the study. A dose lowering technique was utilized adhering to the principles of ALARA. COMPARISON: No relevant prior studies available. FINDINGS: No acute intracranial hemorrhage. No midline shift or mass effect. The territorial song-white matter differentiation is maintained throughout. Age-related cerebral volume loss. Periventricular and subcortical white matter hypoattenuation, consistent with chronic microangiopathy. The visualized orbits appear grossly unremarkable. The calvarium is intact. The visualized paranasal sinuses and mastoid air cells are grossly clear. LEFT parietal scalp soft tissue swelling. IMPRESSION: No acute intracranial hemorrhage, midline shift, or mass effect. LEFT parietal scalp soft tissue swelling. Electronically signed by: Brody Kumar MD 03/10/23 23:59 PM
--- NOTE | 2023-03-11 00:07 | CT Scan Report ---
Exam(s): CT C SPINE EXAM: CT Cervical Spine Without Intravenous Contrast CLINICAL HISTORY: Reason for exam: Trauma, fall. TECHNIQUE: Axial computed tomography images of the cervical spine without intravenous contrast. Automated exposure control was utilized for the study. A dose lowering technique was utilized adhering to the principles of ALARA. COMPARISON: No relevant prior studies available. FINDINGS: The vertebral body heights are maintained. The craniocervical junction is intact. The atlanto-dens interval is maintained. The dens is intact. There is no spondylolisthesis. Multilevel cervical spondylosis and degenerative disc disease. Straightening of the cervical lordosis. The unenhanced neck soft tissues are grossly unremarkable. The visualized lung apices are grossly clear. IMPRESSION: No acute fracture or subluxation of the cervical spine. Electronically signed by: Brody Kumar MD 03/11/23 00:06 AM
--- NOTE | 2023-03-11 00:09 | CT Scan Report ---
Exam(s): CT ABDOMEN + PELVIS Without Contrast EXAM: CT Abdomen and Pelvis Without Intravenous Contrast CLINICAL HISTORY: Reason for exam: Trauma, fall. TECHNIQUE: Axial computed tomography images of the abdomen and pelvis without intravenous contrast. Automated exposure control was utilized for the study. A dose lowering technique was utilized adhering to the principles of ALARA. COMPARISON: No relevant prior studies available. FINDINGS: Lung bases: Unremarkable. No mass. No consolidation. Mediastinum: Small hiatal hernia. ABDOMEN: Liver: Unremarkable. Gallbladder and bile ducts: Unremarkable. No calcified stones. No ductal dilation. Pancreas: Calcified pancreas, concerning for sequelae of pancreatitis. Low-attenuation cystic lesion in the region of the pancreatic head measures 2.2 x 1.9 cm. This should be evaluated with a pancreatic protocol MRI. No ductal dilation. Spleen: Unremarkable. No splenomegaly. Adrenals: Unremarkable. No mass. Kidneys and ureters: Unremarkable. No hydronephrosis or nephrolithiasis. Stomach and bowel: Moderate fecal retention, correlate for constipation. Diverticulosis, without acute diverticulitis. No small bowel obstruction. No free intraperitoneal air. PELVIS: Appendix: No findings to suggest acute appendicitis. Bladder: Unremarkable. No stones. Reproductive: Unremarkable as visualized. ABDOMEN and PELVIS: Intraperitoneal space: Unremarkable. No free air. No significant fluid collection. Bones/joints: Degenerative changes of the spine. Old, healed fracture of the posterior RIGHT 10th and 11th ribs. No dislocation. No acute fractures. Soft tissues: Unremarkable. Vasculature: Atherosclerotic changes of the aorta. No abdominal aortic aneurysm. Lymph nodes: Unremarkable. No enlarged lymph nodes. IMPRESSION: 1. No acute fractures. 2. Calcified pancreas, concerning for sequelae of pancreatitis. Low-attenuation cystic lesion in the region of the pancreatic head measures 2.2 x 1.9 cm. This should be evaluated with a pancreatic protocol MRI. 3. Small hiatal hernia. 4. Moderate fecal retention, correlate for constipation. Diverticulosis, without acute diverticulitis. No small bowel obstruction. No free intraperitoneal air. Electronically signed by: Brody Kumar MD 03/11/23 00:08 AM
--- NOTE | 2023-03-11 00:11 | CT Scan Report ---
Exam(s): CT CHEST Without Contrast EXAM: CT Chest Without Intravenous Contrast CLINICAL HISTORY: Reason for exam: Trauma, fall. TECHNIQUE: Axial computed tomography images of the chest without intravenous contrast. Automated exposure control was utilized for the study. A dose lowering technique was utilized adhering to the principles of ALARA. COMPARISON: No relevant prior studies available. FINDINGS: LUNGS: No focal consolidation, pleural effusion, or pneumothorax. HEART: Within normal limits. VASCULATURE: Atherosclerotic changes of aorta. THYROID: Within normal limits. MEDIASTINUM + LYMPHADENOPATHY: There are no pathologically enlarged mediastinal, hilar, or axillary lymph nodes. MUSCULOSKELETAL: No acute fracture. Old, healed posterior bilateral rib fractures. IMPRESSION: No pulmonary contusion or pneumothorax. No acute fractures. Electronically signed by: Brody Kumar MD 03/11/23 00:10 AM
[2023-03-11] MEDS ORDERED: ONDANSETRON INJ 2 MG/ML 2 ML VIAL IM STA (00:29)
[2023-03-11] MEDS ORDERED: LORazepam 2 MG/1 ML VIAL IV STA (00:39)
[2023-03-11] MEDS ORDERED: SODIUM CHLORIDE 0.9% 1000ML 500 ML IV ONE (00:39)
[2023-03-11 01:43] LABS: INR 0.9 (0.9-1.1); Prothrombin Time 10.4 Seconds (9.0-12.0)
--- NOTE | 2023-03-11 02:18 | History & Physical Report ---
Date of Service March 11, 2023 Assessment & Plan (1) Alcohol intoxication: Plan: Patient is a 57-year-old female with past medical history of uncontrolled type 1 diabetes, frequent episodes of DKA, below-knee amputation, liver cirrhosis, with diabetic peripheral neuropathy, and vitamin D deficiency who presented to the hospital for evaluation of injury after a fall yesterday. Fall injury is limited to scalp without intracranial injury. Patient is too intoxicated to be discharged home. Patient admitted for intoxication supervision and risk for alcohol withdrawal. -Admit to [facility] with telemetry -Thiamine supplementation ordered -[facility] protocol for alcohol withdrawal risk -Fall precautions -zofran prn -N.p.o. until morning given intoxication aspiration risk -Maintenance IV fluid with D5 given hypoglycemia -Morning CMP -Likely discharge tomorrow after sobering up. (2) Fall: Plan: -Injury seems superficial and no indication of intracranial injury -Fall precautions (3) Diabetes type 1, uncontrolled: Plan: -Uncontrolled type I diabetic with most recent A1c being greater than 9 approximately 10 weeks ago. -Basal bolus insulin with pharmacy glycemic consult, appreciate recommendations -A1c in the morning. -Diabetic diet when able to tolerate (4) Diabetic peripheral neuropathy associated with type 1 diabetes mellitus: Plan: -continue gabapentin, duloxetine Plan Diet: N.p.o., LR at 80cc/hr DVT prophylaxis: Lovenox Disposition: Admit to [facility] with telemetry for supervision and observation for withdrawal CODE STATUS: Full code History of Present Illness Chief Complaint: Fall/ Alcohol intoxication Primary Care Provider: Chaz Cassidy DO Patient is a 57-year-old female with past medical history of uncontrolled type 1 diabetes, frequent episodes of DKA, below-knee amputation, liver cirrhosis, with diabetic peripheral neuropathy, and vitamin D deficiency who presented to the hospital for evaluation of injury after a fall yesterday. Majority of history is acquired from ED provider and ED provider notes as patient is both intoxi cated and lethargic now that she has received Ativan. On 03/09/2023, the patient fell out of her wheelchair and struck her head on the ground and reports that she was unconscious for a period of time. She had woken up to some blood on the back of her head but had gotten back up in her wheelchair and allegedly started drinking to help ease the pain of the injury. Apparently today, patient was visited by her mother and she was found passed in her wheelchair. She was able to be woken up by mother and did not seem to want to come to the emergency department, however, patient was found to have slurred speech and they were concerned regarding the head injury she had yesterday. Today, patient only complains of a slight headache but no other real complaints at this time. ED course: Patient was evaluated by ED provider. Labs are significant for a slight anion gap of 13, a low glucose of 63, AST of 48, alkaline phosphatase of 154, and an ethyl alcohol level of 497.7. Head and neck CT was only positive for left parietal scalp soft tissue swelling without any intracranial injury noted. Patient was given a 500 cc bolus of normal saline, Zofran, and 1 mg of Ativan. The hospitalist service was consulted both for concern of alcohol withdrawal and severe intoxication. Allergies Allergy/AdvReac Type Severity Reaction Status Date / Time haloperidol [From Haldol] AdvReac Unknown Unknown Verified 03/11/23 01:46 Home Medications Medication Instructions Recorded Confirmed Type cholecalciferol (vitamin D3) 25 1,000 units PO HS 06/23/19 03/11/23 History mcg (1,000 unit) capsule cyanocobalamin (vitamin B-12) 1,000 mcg PO DAILY 05/10/20 03/11/23 History 1,000 mcg tablet (Vitamin B-12) diphenhydramine HCl 25 mg tablet 25 - 50 mg PO Q6H PRN Allergy 10/25/20 03/11/23 History (Benadryl Allergy) Symptoms multivitamin 1 tab PO DAILY 12/24/21 03/11/23 History buspirone 15 mg tablet 15 mg PO BID #60 tabs 04/30/22 03/11/23 Rx folic acid 1 mg tablet 1 mg PO DAILY 05/21/22 03/11/23 History insulin glargine 100 unit/mL (3 40 unit (0.4 mL) subcut QPM #3 06/06/22 03/11/23 Rx mL) subcutaneous pen (Lantus Boxes Solostar U-100 Insulin) duloxetine 20 mg capsule,delayed 20 mg PO HS #30 caps 10/02/22 03/11/23 Rx release (Cymbalta) duloxetine 60 mg capsule,delayed 60 mg PO QAM #30 caps 10/02/22 03/11/23 Rx release (Cymbalta) gabapentin 300 mg capsule 300 mg PO TID #90 caps 11/18/22 03/11/23 Rx kdvfqs-tduazkdd-orzpnla 1 cap PO TID #90 caps 11/22/22 03/11/23 Rx 6,000-19,000-30,000 unit capsule,delayed rel (Creon) clobetasol 0.05 % scalp solution 1 applic topical DAILY PRN flare 12/23/22 03/11/23 History fluticasone propionate 50 2 spray intranasal DAILY 03/11/23 03/11/23 History mcg/actuation nasal spray,suspension insulin aspart U-100 100 unit/mL 20 unit subcut TID 03/11/23 03/11/23 History (3 mL) subcutaneous pen (Novolog FlexPen U-100 Insulin aspart) Past Med/Surg History Medical History Acute head injury Alcohol withdrawal seizure Aspiration pneumonia Caustic esophageal injury Chronic pancreatitis Cirrhosis of liver Depression with anxiety Diabetes type 1, uncontrolled Diabetes type 1, uncontrolled Diabetic peripheral neuropathy associated with type 1 diabetes mellitus Dysesthesia Dyslipidemia Encephalomalacia Exocrine pancreatic insufficiency History of alcohol abuse History of GI bleed History of left below knee amputation Hydrosalpinx Hypoxia IPMN (intraductal papillary mucinous neoplasm) Left against medical advice Leukopenia Lipoma Polycystic ovarian syndrome Psoriasis SBO (small bowel obstruction) Thrombocytopenia Tobacco dependence Vitamin D deficiency Surgical History Amputation of left lower extremity History of ankle surgery History of tooth extraction Family History Uncle Diabetes Mother Breast cancer Sister Breast cancer Father Prostate cancer Other Family history of breast cancer in mother Family history of breast cancer in sister Denies family history of Ovarian cancer Myocardial infarction Colorectal cancer Social History Smoking Status: Current every day smoker Tobacco Type: Cigarettes packs per day: 0.75; Cigarettes Per Day: 10; Second Hand Exposure: Yes; Do You Dip or Chew Tobacco: No; Hx Alcohol Use: Yes Alcohol type: wine Hx Substance Use: No Preferred Language: [place]atian Communication Ability: Effective Visual Impairment: No Limitations Rebar Worker Required: No Beliefs That Will Affect Care: None marital status: marital status details: no children Current Living Situation: Alone Current Living Situation Comment: unknown current occupational status: disabled Feels Safe at Home: Yes Assistive Devices: Glasses, Prosthesis and Wheelchair Review of Systems Review of Systems: Unobtainable due to reduced consciousness Physical Exam Constitutional: well developed, well nourished, + intoxicated appearing and cooperative Eyes: + anicteric sclerae Neck: normal visual inspection Respiratory: normal respiratory effort, lungs clear to auscultation Cardiovascular: RRR, no murmur, no edema Gastrointestinal (Abdomen): normal bowel sounds, soft, nontender, no hepatosplenomegaly Musculoskeletal: Left BKA, well-healed stump without active ulceration/pressure wound/cellulitis. Skin: no rashes, warm and dry (There is a abrasion over the Left parietal area) Psychiatric: Orientation: alert, oriented to person, oriented to place and cooperative Results & Data Results & Data Vital Signs (Past 12 Hours) Vital Signs Temp Pulse Pulse Resp BP BP Pulse Ox 03/11/23 01:19 125 H 03/10/23 22:56 92 03/10/23 21:03 91 H 03/10/23 20:50 36.6 C 100 H 9 L 142/98 H 95 03/10/23 20:50 36.6 C 100 H 18 142/98 H 95 O2 Del Method 03/11/23 01:19 03/10/23 22:56 Room Air 03/10/23 21:03 03/10/23 20:50 Room Air 03/10/23 20:50 Room Air Code Status & VTE Plan VTE Prophylaxis Plan VTE Prophylaxis will be ordered: Yes Supervising Physician Co-Signing Physician Notes Attending addendum: I have physically seen this patient, have supervised the medical residents activities, and agree with the H&P unless as otherwise noted. Assessment and Plan: Alcoholism/alcohol intoxication- Alcohol level 497.7 on admission, with patient being able to be upright and conversant Admit to [facility] telemetry Thiamine and folic acid supplementation [facility] protocol Fall precautions Zofran 4 mg IV every 6 hours as needed IV fluids with D5 to be started after IV thiamine, due to hypoglycemia Status post fall- CT head, cervical spine and chest negative CT abdomen pelvis with pancreatic calcifications Pancreatic head cyst 2.2 x 1.9, to get pancreatic protocol MRI for follow-up Diabetes mellitus type 1- Uncontrolled A1c greater than 10 weeks ago Hypoglycemic this evening, to get D5 and IV fluids Resume diabetic diet when able to tolerate foods Diabetic peripheral neuropathy- Continue gabapentin and duloxetine Remaining orders and notations as noted (1) Alcohol intoxication Complication of substance-induced condition: uncomplicated Qualified Code(s): F10.920 - Alcohol use, unspecified with intoxication, uncomplicated
[2023-03-11 02:25] LABS: Appearance Urine Clear (Clear); Bilirubin Urine Negative (Negative); Blood Urine Negative (Negative); Color Urine Yellow; Glucose Urine UA Negative (Negative); Ketones Urine Negative (Negative); Leukocyte Esterase Urine Negative (Negative); Nitrite Urine Negative (Negative); Protein Urine Negative (Negative); Urobilinogen Urine Negative (Negative); pH Urine 5.5 (4.5-7.5)
[2023-03-11] MEDS ORDERED: THIAMINE HCL 200 MG in SODIUM CHLORIDE 0.9% 50 ML IV SCH ×2 (02:30→09:00)
[2023-03-11 02:44] LABS: Amphetamines+Metham, Urine Neg (Neg); Barbiturates, Urine Neg (Neg); Benzodiazepine, Urine Neg (Neg); Cocaine, Urine Neg (Neg); MDMA (Ecstacy), Urine Neg (Neg); Methadone, Urine Neg (Neg); Opiate, Urine Neg (Neg); Phencyclidine, Urine Neg (Neg)
[2023-03-11] MEDS ORDERED: LACTATED RINGER'S 1,000 ML IV SCH (03:00)
[2023-03-11] MEDS ORDERED: KETOROLAC TROMETHAMINE 15 MG/ML VIAL IV ONE (03:43)
[2023-03-11] MEDS ORDERED: Ativan IV Alcohol Withdrawal--Active Protocol IV PRN (04:40)
[2023-03-11] MEDS ORDERED: GLUCOSE 10 TAB/TUBE PO PRN (04:40)
[2023-03-11] MEDS ORDERED: PHARMACY GLYCEMIC MGMT CONSULT PRN (04:40)
[2023-03-11] MEDS ORDERED: LORazepam 2 MG/1 ML VIAL IV PRN ×3 (04:40)
[2023-03-11] MEDS ORDERED: CARBOHYDRATES FOR HYPOGLYCEMIA PO PRN (04:40)
[2023-03-11] MEDS ORDERED: ACETAMINOPHEN 325 MG TAB PO PRN (04:40)
[2023-03-11] MEDS ORDERED: GLUCAGON FOR INJ 1 MG VIAL SQ PRN (04:40)
[2023-03-11] MEDS ORDERED: DEXTROSE 50% 50 ML SYRINGE IV PRN (04:40)
[2023-03-11] MEDS ORDERED: GLUCOSE 40% GEL 15 GM TUBE PO PRN (04:40)
[2023-03-11] MEDS: ONDANSETRON INJ 2 MG/ML 2 ML VIAL IV PRN ×2 (05:16→14:08)
[2023-03-11] MEDS: INSULIN ASPART PER UNIT CHARGE SC SCH ×2 (05:47→12:36)
[2023-03-11] MEDS ORDERED: ENOXAPARIN INJ 40 MG/0.4 ML SYR SQ SCH (06:00)
[2023-03-11 06:55] LABS: Hematocrit (blood only) 37.6 % (37.0-47.0); Mean Corpuscular Hemoglobin 30.4 pg (25.0-34.0); Mean Corpuscular Hgb Conc 34.6 g/dL (32.0-36.0); Mean Corpuscular Volume 88.1 fL (80.0-100.0); Mean Platelet Volume 10.1 fL (9.4-12.4); Platelet Count 156 K/uL (130-400); RDW Coefficient of Variation 13.8 % (11.5-14.5); RDW Standard Deviation 44.7 fL (36.4-46.3); Red Blood Count 4.27 M/uL (4.20-5.40); White Blood Count 9.23 K/ul (4.8-10.8)
[2023-03-11 07:14] LABS: Albumin Globulin Ratio 1.5 (0.9-2); Albumin Level 3.6 gm/dl (3.4-5.0); BUN Creatinine Ratio 11.9 (10-20); Bilirubin,Total 0.5 mg/dl (0.2-1.0); Calcium 8.1 mg/dl (8.6-10.3); Creatinine Clr Calc Pharmacy 86.7 ml/min; Est GFR (African American) 113.1 ml/min; Est GFR (Non-African American) 97.6 ml/min; Globulin 2.4 gm/dl (2.5-4.0); Potassium 3.4 mmol/L (3.5-5.1)
[2023-03-11 07:24] LABS: Prothrombin Time 10.7 Seconds (9.0-12.0)
[2023-03-11] MEDS ORDERED: INSULIN ASPART PER UNIT CHARGE SC SCH (07:30)
[2023-03-11] MEDS ORDERED: LANTUS PER UNIT CHARGE SQ SCH (09:00)
[2023-03-11] MEDS ORDERED: CYANOCOBALAMIN (B-12) 500 MCG TABLET PO SCH (09:00)
[2023-03-11] MEDS ORDERED: DULoxetine HCL 60 MG CAP PO SCH (09:00)
[2023-03-11] MEDS ORDERED: busPIRone 15 MG TAB PO SCH (09:00)
[2023-03-11] MEDS ORDERED: FOLIC ACID 1 MG TAB PO SCH (09:00)
[2023-03-11] MEDS: GABAPENTIN 300 MG CAP PO SCH ×2 (09:37→15:01)
[2023-03-11] MEDS ORDERED: LANTUS PER UNIT CHARGE SQ ONE (12:30)
--- NOTE | 2023-03-11 12:39 | Hospitalist Progress Note ---
Date of Service March 11, 2023 Assessment & Plan (1) Alcohol intoxication: Plan: Patient is a 57-year-old female with past medical history of uncontrolled type 1 diabetes, frequent episodes of DKA, below-knee amputation, liver cirrhosis, with diabetic peripheral neuropathy, and vitamin D deficiency who presented to the hospital for evaluation of injury after a fall yesterday. Fall injury is limited to scalp without intracranial injury. Patient is too intoxicated to be discharged home. Patient admitted for intoxication supervision and risk for alcohol withdrawal. -Admit to [facility] with telemetry -Thiamine supplementation ordered -[facility] protocol for alcohol withdrawal risk -Fall precautions -zofran prn -N.p.o. until morning given intoxication aspiration risk -Maintenance IV fluid with D5 given hypoglycemia -Morning CMP -Likely discharge tomorrow after sobering up. (2) Fall: Plan: -Injury seems superficial and no indication of intracranial injury -Fall precautions (3) Diabetes type 1, uncontrolled: Plan: -Uncontrolled type I diabetic with most recent A1c being greater than 9 approximately 10 weeks ago. -Basal bolus insulin with pharmacy glycemic consult, appreciate recommendations -A1c in the morning. -Diabetic diet when able to tolerate (4) Diabetic peripheral neuropathy associated with type 1 diabetes mellitus: Plan: -continue gabapentin, duloxetine Plan Diet: N.p.o., LR at 80cc/hr DVT prophylaxis: Lovenox Disposition: Admit to [facility] with telemetry for supervision and observation for withdrawal CODE STATUS: Full code Admission and Anticipated Discharge Date Admission Date: March 11, 2023 Results & Data Results & Data Vital Signs (Past 12 Hours) Vital Signs Temp Pulse Pulse Resp BP Pulse Ox O2 Del Method 03/11/23 12:28 36.5 C 119 H 19 161/92 H 96 Room Air 03/11/23 11:10 Room Air 03/11/23 10:08 117 H 03/11/23 08:01 36.9 C 107 H 20 152/87 H 98 Room Air 03/11/23 04:15 36.6 C 107 H 20 154/93 H 97 Room Air 03/11/23 03:14 105 H 12 170/107 H 98 Room Air 03/11/23 01:19 125 H (1) Alcohol intoxication Complication of substance-induced condition: uncomplicated Qualified Code(s): F10.920 - Alcohol use, unspecified with intoxication, uncomplicated
--- NOTE | 2023-03-11 14:44 | Pharmacy Report ---
Pharmacy Glycemic Short Note 2 - Date of Service March 11, 2023 - Glycemic Short BSG Results (Last 24 hours): 03/10/23 03/11/23 03/11/23 21:05 00:37 02:49 Glucose 63 L POC Glucose 64 L* 227 H 03/11/23 03/11/23 03/11/23 05:30 06:24 07:30 Glucose 107 H POC Glucose 226 H 79 03/11/23 03/11/23 09:35 11:28 Glucose POC Glucose 101 H 170 H OUTPATIENT ANTIDIABETIC REGIMEN: * Lantus 40 units Qpm, Novolog TID ASSESSMENT: * 57 year old, type 1 DM presenting to ER for evaluation of injury after fall, related to alcohol intoxication. Pharmacy consulted for glycemic management. Patient known to glycemic service from other admissions, most recently 12/2022. During this time she was managed on Lantus 20 units daily and blood sugars were reasonable. * Plan to start Lantus 10 units bid for now. Will start novolog based upon parameters from last admission PLAN FOR INPATIENT GLYCEMIC CONTROL: * Hold outpatient oral diabetes medications * Basal insulin * Lantus 10 units SQ BID * Bolus insulin * NovoLog per scale ACHS or Q6hrs while NPO * Goal Range: Low 110 mg/dL - High 150 mg/dL * Correction Factor: 45 mg/dL/unit * Nutritional / Prandial insulin per carb ratio of 1 unit per 15 grams CHO consumed
--- NOTE | 2023-03-11 17:59 | Med Student Discharge Summary ---
Date of Service March 11, 2023 Admission HPI Per Admitting Provider Patient is a 57-year-old female with past medical history of uncontrolled type 1 diabetes, frequent episodes of DKA, below-knee amputation, liver cirrhosis, with diabetic peripheral neuropathy, and vitamin D deficiency who presented to the hospital for evaluation of injury after a fall yesterday. Majority of history is acquired from ED provider and ED provider notes as patient is both intoxicated and lethargic now that she has received Ativan. On 03/09/2023, the patient fell out of her wheelchair and struck her head on the ground and reports that she was unconscious for a period of time. She had woken up to some blood on the back of her head but had gotten back up in her wheelchair and allegedly started drinking to help ease the pain of the injury. Apparently today, patient was visited by her mother and she was found passed in her wheelchair. She was able to be woken up by mother and did not seem to want to come to the emergency department, however, patient was found to have slurred speech and they were concerned regarding the head injury she had yesterday. Today, patient only complains of a slight headache but no other real complaints at this time. ED course: Patient was evaluated by ED provider. Labs are significant for a slight anion gap of 13, a low glucose of 63, AST of 48, alkaline phosphatase of 154, and an ethyl alcohol level of 497.7. Head and neck CT was only positive for left parietal scalp soft tissue swelling without any intracranial injury noted. Patient was given a 500 cc bolus of normal saline, Zofran, and 1 mg of Ativan. The hospitalist service was consulted both for concern of alcohol withdrawal and severe intoxication. Admission Exam (Per Admitting) Constitutional well developed, well nourished, + intoxicated appearing and cooperative Eyes + anicteric sclerae Neck normal visual inspection Respiratory normal respiratory effort, lungs clear to auscultation Cardiovascular RRR, no murmur, no edema Gastrointestinal (Abdomen) normal bowel sounds, soft, nontender, no hepatosplenomegaly Skin no rashes, warm and dry (There is a abrasion over the Left parietal area.) Psychiatric Orientation: alert, oriented to person, oriented to place and cooperative Discharge Exam Constitutional well developed, well nourished, + intoxicated appearing and cooperative Eyes + anicteric sclerae Neck normal visual inspection Respiratory normal respiratory effort, lungs clear to auscultation Cardiovascular RRR, no murmur, no edema Gastrointestinal (Abdomen) normal bowel sounds, soft, nontender, no hepatosplenomegaly Skin no rashes, warm and dry (There is a abrasion over the Left parietal area.) Neurologic CN II-XII intact. No focal neurological deficits. Psychiatric Orientation: alert, oriented to person, oriented to place and cooperative Discharge Data Consultations 03/11/23 00:45 ED Decision to Admit Stat Hospital Course (1) Fall: Things To Do: -Continued education of alcohol use disorder. -Follow up on cystic lesion of pancreas. -Follow up with PCP. 1. Fall/Head Injury: Patient has a headache in area of laceration. No focal neurological deficits. Various imaging studies did not reveal evidence of acute injury or hemorrhage in head or C-spine. 2. Alcohol Intoxication: Patient having moderate withdrawal symptoms of tachycardia, hypertension, nausea/vomiting. Difficult to elicit a clear alcohol use history. -Placed on AWSS protocol. Symptomatically treated with lorazepam. -Received Zofran. -Received IV fluids. -Patient educated about alcohol use. -Close outpatient follow up with PCP. 3. Sinus Tachycardia: Patient flipping between sinus tachycardia and junctional tachycardia with rate in 110s. Likely due to alcohol withdrawal. -Placed on telemetry. 4. Cystic Lesion in Pancreas: Cystic lesion found in head of pancreas, measuring 2.2 x 1.9 cm, found on abdominal/pelvis CT imaging study. 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 -Will need close follow up with repeat imaging. 5. Hypoglycemia: Glucose corrected with IV fluids with D5. 6. Type I Diabetes: Usually uncontrolled at home. A1C in December 12.4. -Placed on SSI in hospital. 7. Diabetic Peripheral Neuropathy: -Stable. -Continue gabapentin. Discharge Plan Discharge Items Patient Disposition: Home - Self-Care Reason For Visit: FALL / INTOXICATION Discharge Diagnosis: Fall/Intoxication Activity: Resume your previous activity Non-emergency contact: Primary Care Provider Call non-emergency contact if: you have any medication questions, your symptoms worsen and you have a fever Follow-up/Referrals: Chaz Cassidy DO [Primary Care Provider] - 03/14/23 2:00 pm (PCP follow up: March 14, 2022 @ 2:00, [facility] Location) Diet: Carb Count or DM1 Addtl Attending Provider Instructions: You were admitted to the hospital for Alcohol Intoxication and a fall. Base on our scans, you do not have any acute fractures or injuries. However, your blood alcohol content was very high at almost 0.50. At 0.60 people tend to require dialysis to recover from alcohol intoxication. We recommend limiting alcohol to 1-2 drinks at most per day, and to take it with food. A discharge summary will be sent to your primary care physician to ensure continuity of care. Please bring this discharge summary with you to your next office appointment so that your provider can review it at that time. Follow-up appointments: Make a follow-up appointment with your PCP within the next week. It is very important that you follow up with them shortly after discharge from the hospital. Keep all your follow-up appointments as already scheduled. If you cannot make an appointment, notify your provider. Medications: Your medication list has been reviewed and reconciled upon discharge to ensure accuracy and continuity of care. An updated list of all your medications is included with your hospital discharge paperwork. Please review this list closely, and make note of any changes. Take your medications as instructed; do not skip a dose of your medicines. Make sure all of your doctors know every medicine you are taking (including ofwe-gch-daccuft medicines, vitamins, and supplements). Call your primary care provider before taking any new medicines (including lpqk-glq-ghaumlw medicines, vitamins, and supplements), because some of these may interact with your current medications, or may make your symptoms worse. Tell your primary care provider if you cannot afford your medications. CONTACT YOUR PRIMARY CARE PROVIDER if you experience any of the following: Increased confusion, dizziness Fever, chills Difficulty following your treatment plan, or difficulty taking medications CALL 911 OR GO TO THE EMERGENCY DEPARTMENT if you experience any of the following: Sudden, severe abdominal pain or nausea/vomiting Severe chest pain, or chest pain that radiates (moves) to your jaw or arm Sudden, severe shortness of breath or difficulty breathing Thank you for allowing us to participate in your care. Pending Studies at Discharge: No Stand-Alone Forms: My [employer], Smoking Cessation Medications and DC Order Prescriptions: Continued buspirone 15 mg tablet 15 mg PO BID Qty: 60 5RF duloxetine [Cymbalta] 20 mg capsule,delayed release(DR/EC) 20 mg PO HS Qty: 30 5RF Hold Instructions: does not take duloxetine [Cymbalta] 60 mg capsule,delayed release(DR/EC) 60 mg PO QAM Qty: 30 5RF gabapentin 300 mg capsule 300 mg PO TID Qty: 90 5RF Creon 6,000-19,000 -30,000 unit capsule,delayed release(DR/EC) 1 cap PO TID Qty: 90 5RF cholecalciferol (vitamin D3) 1,000 unit capsule 1,000 units PO HS multivitamin Tablet 1 tab PO DAILY insulin glargine [Lantus Solostar U-100 Insulin] 100 unit/mL (3 mL) insulin pen 40 unit subcut QPM MDD 50 Qty: 3 3RF cyanocobalamin (vitamin B-12) [Vitamin B-12] 1,000 mcg tablet 1,000 mcg PO DAILY diphenhydramine HCl [Benadryl Allergy] 25 mg Tablet 25 - 50 mg PO Q6H PRN (Reason: Allergy Symptoms) folic acid 1 mg Tablet 1 mg PO DAILY fluticasone propionate 50 mcg/actuation [place],Suspension 2 spray INTRANASAL DAILY Rx Instructions: administer into each nostril insulin aspart U-100 [Novolog FlexPen U-100 Insulin] 100 unit/mL (3 mL) insulin pen 20 unit subcut TID Rx Instructions: Inject 1 unit of insulin for each 10 grams of carb. Use scale of 150 target with correction factor of 30 clobetasol 0.05 % solution 1 applic topical DAILY PRN (Reason: flare) Rx Instructions: Apply to scalp once daily as needed for flaring. Discharge Orders: Discharge Order (Routine); Ordered 03/11/23 Ordered By: Sara Multani Admission Data Admit Date/Time: 03/11/23 01:50 Attending Provider: Jelani Gabriel Admit Provider: Arvind Rosario Primary Care Provider: Chaz Cassidy Other Providers: Adelso Younger Other Interventions: Discharge Summary Assessment (RN) Last Done: 03/11/23 16:14 Supervising Attestation I personally examined the patient and verified all jay points of history and exam, discussed case, and agree with decision making with Chasity Gregorio MS2 Feeling better. Head does not really hurt anymore. No neck pain, no joint pain. No withdrawal symptoms that she knows of. Note that she only drinks binge drinking intermittentlylast major binge was about 5 months ago. Has never had serious withdrawal. Previous charts/records reviewed including whenever I last saw her about 2 years ago. Vitals noted, in general she is awake and alert pleasant no distress. She has a small laceration on the back of her head with no opening, and no surrounding erythema. Her head is nontender, her neck is supple with good range of motion no bony tenderness good active range of motion without any pain or restrictions. No joint tenderness. No focal neurodeficits. Left lower extremity absent BKA Alcohol intoxicationwhile her story varies depending on who is asking her the history, and is certainly not consistent with when I saw her a few years ago, her overall situation seems that she is not yet in a place where she would like to seek any medical help for alcohol abuse. She does not appear to be in any danger withdrawingto that end will discharge home. Fallfortunately no significant intracranial trauma or bony traumaSuperficial laceration, safe for home. Uncontrolled type 1 diabetesoutpatient/PCP follow-up Thiamine and folate at discharge, safe/stable for home otherwise.
--- NOTE | 2023-03-11 19:37 | Billing Data ---
Date of Service March 11, 2023 Coding Level of Care Code 74856 IN/OBS DISCH 30 MIN/LESS
--- NOTE | 2023-03-11 20:01 | Billing Data ---
Date of Service March 11, 2023 Coding Level of Care Code 59351 INT INP/OBS CARE
[2023-03-11] MEDS ORDERED: CHOLECALCIFEROL 1,000 UNITS 25 MCG TAB PO SCH (21:00)
[2023-03-11] MEDS ORDERED: DULoxetine HCL 20 MG CAP PO SCH (21:00)
[2023-03-12 08:13] LABS: Estimated Average Glucose 174 mg/dl; Hemoglobin A1C 7.7 % (4.5-5.6)
--- NOTE | 2023-03-12 23:01 | Electrocardiogram Report ---
Test Reason : Blood Pressure : / mmHG Vent. Rate : 108 BPM Atrial Rate : 108 BPM P-R Int : 142 ms QRS Dur : 062 ms QT Int : 344 ms P-R-T Axes : -13 -02 -12 degrees QTc Int : 460 ms Sinus tachycardia Otherwise normal ECG When compared with ECG of 23-DEC-2022 15:17, QRS duration has decreased ST no longer depressed in Lateral leads T wave inversion now evident in Inferior leads QT has shortened Confirmed by Uche Reid ([id number]) on 03/12/2023 11:01:15 PM Referred By: REFERRED SELF Confirmed By:Uche Reid
== END 2023-03-11 16:39 | disposition home or self-care (01) | DRG 897 ==
LOC: ED 20:49 → SUATTDRO 03-11 01:50 → 2S 03-11 01:50

== ENCOUNTER 2024-03-13 22:22 | Inpatient (IN) ==
--- OUTSIDE RECORDS SUMMARY | 2024-03-13 22:26 | External Medical Summary | Summary of Care ---
Author Name Unknown Organization [facility] Address [address] [place] [address] Phone [phone] Care Team Providers Care Director Of Academic Support Name Role Phone Ana Lilia Chatman MD Care Provider Encounter Details Date Type Department Care Team (Latest Contact Info) Description 09/27/2021 3:35 PM EST - 09/27/2021 11:59 PM EST Hospital Encounter Radiology Film File [address], [place] [id number] Discharge Disposition: Home - Self Care Allergies Active Allergy Reactions Criticality Noted Date Comments Lorazepam 05/20/2016 Haloperidol Lactate 05/20/2016 documented as of this encounter (statuses as of 02/26/2024) Medications Medication Sig Dispensed Refills Start Date End Date Status Melatonin 5 MG Tablet Take 1 Capsule by mouth at bedtime. Active Cyanocobalamin 2500 MCG CHEW Take 1,000 mcg by mouth. Active Multiple Vitamins-Minerals (MULTIVITAMIN ADULT) TABS Take by mouth. Active Naproxen Sod-Diphenhydramine 220-25 MG TABS Take by mouth. Active fluticasone (FLONASE) 50 MCG/ACT nasal spray Administer 1 [place] into nostril in the morning. Active triamcinolone acetonide (ARISTOCORT) 0.1 % cream apply to PSORIASIS ON BODY TWICE DAILY FOR 2 WEEKS, THEN DAILY NEEDED 0 05/15/2016 Active documented as of this encounter (statuses as of 02/26/2024) Active Problems Problem Noted Date Diagnosed Date History of amputation of left leg through tibia and fibula 10/20/2023 Type 2 diabetes mellitus wit h diabetic mononeuropathy, with long-term current use of insulin 10/20/2023 documented as of this encounter (statuses as of 02/26/2024) Immunizations Name Administration Dates Next Due TDAP (age 10 and older)(Boostrix) 08/20/2014 documented as of this encounter Social History Tobacco Use Types Packs/Day Years Used Date Smoking Tobacco: Every Day Cigarettes Smokeless Tobacco: Never Alcohol Use Standard Drinks/Week Comments No 0 (1 standard drink = 0.6 oz pure alcohol) ETOH abuse in treatment currently Hunger Vital Sign Answer Date Recorded Within the past 12 months, y ou worried that your food would run out before you got the money to buy more. Never true 01/13/20 24 Within the past 12 months, t he food you bought just didn't last and you didn't have money to get more. Never true 01/13/2024 Sex and Gender Information Value Date Recorded Sex Assigned at Female 01/13/2024 10:21 AM EDT Gender Identity Female 01/13/2024 10:21 AM EDT Sexual Orientation Straight 01/13/2024 10 :21 AM EDT Job Start Date Occupation Industry Not on file Not on file Not on file documented as of this encounter Plan of Treatment Upcoming Encounters Date Type Department Care Team (Late st Contact Info) Description 03/31/2024 11:20 AM EDT Office Visit Family Practice [facility] [address] [place] [address] Ingrid Mejias PA-C [address] [place] [address] 05/26/2024 10:30 AM EDT Imaging Radiology, [facility] [address] [facility] [place] [address] 12/28/2024 10:30 AM EDT [facility] [address] [place] [address] Sandra Kauffman CRNP [address] [place] [address] Health Maintenance Due Date Last Done Comments DISCUSS TOBACCO CESSATION (REFER TO SMARTSET #[id number]) 1965 Pneumococcal Vaccine: Pediatrics (0 to 5 Years) and At-Risk Patients (6 to 64 Years) (1 of 2 - PCV) 12/26/1971 Depression Screening 1977 HIV Screening 1980 Albumin/Creatinine Ratio 12/26/1983 Hepatitis C Screening 12/26/1983 Hepatitis B (1 of 3 - 19+ 3-dose series) 1984 HPV/Co-Test 12/26/1995 Cologuard 2010 Colonoscopy 2010 Colorectal Cancer Screening 2010 Fecal Occult Blood Test 2010 Sigmoidoscopy 2010 Zoster Vaccines (1 of 2) 12/26/2015 Mammogram 06/17/2017 06/17/2016, 05/31/2016 Cervical Cancer Screening 05/20/2019 Pap Smear 05/20/2019 05/20/2016 COVID-19 Vaccine (1 - 2022-2 4 season) 2023 Influenza Vaccine (FLU shot) (Season Ended) 2024 HbA1c 07/15/2024 01/14/2024 DTaP,Tdap,and Td Vaccines (2 - Td or Tdap) 08/20/2024 08/20/2014 Diabetic Eye Exam 01/13/2025 01/14/2024 Diabetic Foot Exam 01/13/2025 01/14/2024 GFR 01/13/2025 01/14/2024, 05/20/2016 Lipid Panel 01/13/2029 01/14/2024 GARDASIL-HPV IMMUNIZATION SERIES Aged Out No longer eligible b ased on patient's age to complete this topic MENINGOCOCCAL (MENACTRA/MENVEO) Aged Out No longer eligible b ased on patient's age to complete this topic documented as of this encounter Medical Devices Not on filedocumented as of this encounter Procedures Procedure Name Priority Date/Time Associated Diagnosis Comments RADIOLOGY EXAM - MAMMOGRAPHY (IMAGES ONLY, NO REPORT) Routine 09/27/2021 3:35 PM EST documented in this encounter Results * RADIOLOGY EXAM - MAMMOGRAPHY (IMAGES ONLY, NO REPORT) (09/27/2021 3:35 PM EST) 09/27/2021 3:33 PM EST Narrative Scheduling, Silent - 02/25/2024 12:35 PM EDT This is an imaging study not interpreted or resulted by a [facility] or [facility] contracted radiologist. Breanna Neal DO RAD MAMMOGRAPHY documented in this encounter Care Teams Director Of Academic Support Relationship Specialty Start Date End Date Ana Lilia Chatman MD [address] [place] [address] PCP - General Internal Medicine 06/28/19 01/13/24 documented as of this encounter
--- OUTSIDE RECORDS SUMMARY | 2024-03-13 22:26 | External Medical Summary | Summary of Care ---
Author Name Unknown Organization [facility] [address] [facility] [address] Phone [phone] Care Team Providers Care Video Game Creator Name Role Phone Ingrid Mejias PA-C Primary Care Provider [phone] Reason for Visit * Reason Onset Date Comments Fax 12/03/2023 Encounter Details Date Type Department Care Team (Late st Contact Info) Description 12/03/2023 Telephone General Internal Medicine [facility] [place] [address] [place] [address] Rishabh Jama MD [address] [place] [address] Fax Allergies Active Allergy Reactions Criticality Noted Date Comments Lorazepam 05/20/2016 Haloperidol Lactate 05/20/2016 documented as of this encounter (statuses as of 03/03/2024) Medications Medication Sig Dispensed Refills Start Date End Date Status Melatonin 5 MG Tablet Take 1 Capsule by mouth at bedtime. Active Cyanocobalamin 2500 MCG CHEW Take 1,000 mcg by mouth. Active Multiple Vitamins-Minerals (MULTIVITAMIN ADULT) TABS Take by mouth. Active Naproxen Sod-Diphenhydramin e 220-25 MG TABS Take by mouth. Acti ve fluticasone (FLONASE) 50 MCG/ACT nasal spray Administer 1 [place] into nostril in the morning. Active triamcinolone acetonide (ARISTOCORT) 0.1 % cream apply to PSORIASIS ON BODY TWICE DAILY FOR 2 WEEKS, THEN DAILY NEEDED 0 05/15/2016 Active DULoxetine HCl 30 MG Oral Capsule Delayed Release Particles (Cymbalta) Take 2 Capsules by mouth in the morning. 03/25/2019 Active Folic Acid 1 MG Oral Tablet Take 1 Tablet by mouth in the morning. 07/01/2015 Active Gabapentin 300 MG Oral Capsule (Neurontin) Take 1 Capsule by mouth in the morning and 1 Capsule at noon and 1 Capsule before bedtime. Active Creon 6000-74196 UNIT Oral Capsule Delayed Release Particles Take 1 Capsule by mouth in the morning and 1 Capsule at noon and 1 Capsule before bedtime. 09/30/2023 Active NovoLOG FlexPen ReliOn 100 UNIT/ML Subcutaneous Solution Pen-injector Sliding scale based on blood sugars; prior to meals. 10/20/2023 Active Clobetasol Propionate 0.05 % topical foam apply to SCALP TWICE DAILY FOR 2 WEEKS, THEN DAILY NEEDED 0 05/15/2016 01/14/2024 Discontinued (Medication List Clean Up) Lantus SoloStar 100 UNIT/ML Subcutaneous Solution Pen-injector Inject 40 Units under the skin every evening. 09/15/2023 01/14/2024 Discontinued (Refill) documented as of this encounter (statuses as of 03/03/2024) Active Problems Problem Noted Date Diagnosed Date History of amputation of left leg through tibia and fibula 10/20/2023 Type 2 diabetes mellitus wit h diabetic mononeuropathy, with long-term current use of insulin 10/20/2023 documented as of this encounter (statuses as of 03/03/2024) Immunizations Name Administration Dates Next Due TDAP [...] on file documented as of this encounter Miscellaneous Notes * Telephone Encounter - Ingrid Mejias PA-C - 12/24/2023 7:00 PM EDT Form signed * Telephone Encounter - Jordana Lopez LPN - 12/24/2023 4:03 PM EDT I placed the form in January's folder for review and signature if agreeable * Telephone Encounter - Ingrid Mejias PA-C - 12/08/2023 7:07 PM EST Do we have this?? * Telephone Encounter - Pam Avila OSA - 12/03/2023 11:03 AM EST Received a call asking if fax was received by office. Name/Company sending fax: [facility] What fax is pertaining to: it is pertaining to forms needing to be filled out by pcp Date(s) they sent request: been faxed several times Verified fax number they are sending to is correct (Y or N): y Callback Number for the clinic to call to verified if fax was received: [phone] documented in this encounter Plan of Treatment Upcoming Encounters Date Type Department Care Team (Late st Contact Info) Description 03/31/2024 11:20 AM EDT Office Visit Family Practice [facility] [place] [address] [place] [address] Ingrid Mejias PA-C [address] [place] [address] 05/26/2024 10:30 AM EDT Imaging Radiology, [facility] [address] [facility] [place] [address] 12/28/2024 10:30 AM EDT Office Visit Gynecology/Obstetrics [facility] [address] [place] [address] Sandra Kauffman CRNP [address] [place] [address] Health Maintenance Due Date Last Done Comments DISCUSS TOBACCO CESSATION (REFER TO SMARTSET #[id number]) 1965 Pneumococcal Vaccine: Pediatrics (0 to 5 [...] 2010 Zoster Vaccines (1 of 2) 12/26/2015 Cervical Cancer Screening 05/20/2019 Pap Smear 05/20/2019 05/20/2016 COVID-19 Vaccine ( - 2022-2 4 season) 2023 Influenza Vaccine (FLU shot) (Season Ended) 2024 HbA1c 07/15/2024 01/14/2024 DTaP,Tdap,and Td Vaccines (2 - Td or Tdap) 08/20/2024 08/20/2014 Diabetic Eye Exam 01/13/2025 01/14/2024 Diabetic Foot Exam 01/13/2025 01/14/2024 GFR 01/13/2025 01/14/2024, 05/20/2016 Mammogram 02/23/2025 02/24/2024, 06/17/2016, 05/31/2016 Lipid Panel 01/13/2029 01/14/2024 GARDASIL-HPV IMMUNIZATION SERIES Aged Out No longer eligible b ased on patient's age to complete this topic MENINGOCOCCAL (MENACTRA/MENVEO) Aged Out No longer eligible b ased on patient's age to complete this topic documented as of this encounter Medical Devices Not on filedocumented as of this encounter Care Teams Video Game Creator Relationship Specialty Start Date End Date RandellJanuary CECIL Pearson [facility] [place] [address] PCP - General Physician Hospice Home Care Coordinator 01/14/24 documented as of this encounter
--- OUTSIDE RECORDS SUMMARY | 2024-03-13 22:27 | External Medical Summary | Summary of Care ---
Author Name Unknown Organization [facility] [address] [facility] [address] Phone [phone] Care Team Providers Care Real Estate Appraiser Name Role Phone Ingrid Mejias PA-C Primary Care Provider [phone] Reason for Visit * Reason Onset Date Comments Follow Up 01/23/2024 Encounter Details Date Type Department Care Team (Late st Contact Info) Description 01/23/2024 Telephone Family Practice [facility] [address] [facility] [place] [address] Breanna Hardy DO 132 [facility] [place] [address] Follow Up Allergies Active Allergy Reactions Criticality Noted Date Comments Lorazepam 05/20/2016 Haloperidol Lactate 05/20/2016 documented as of this encounter (statuses as of 01/29/2024) Medications Medication Sig Dispensed Refills Start Date End Date Status Melatonin 5 MG Tablet Take 1 Capsule by mouth at bedtime. 0 Active Cyanocobalamin 2500 MCG CHEW Take 1,000 mcg by mouth. 0 Active Multiple Vitamins-Minerals (MULTIVITAMIN ADULT) TABS Take by mouth. 0 Active Naproxen Sod-Diphenhydramine 220-25 MG TABS Take by mouth. 0 Active fluticasone (FLONASE) 50 MCG/ACT nasal spray Administer 1 [place] into nostril in the morning. 0 Active triamcinolone acetonide (ARISTOCORT) 0.1 % cream apply to PSORIASIS ON BODY TWICE DAILY FOR 2 WEEKS, THEN DAILY NEEDED 0 05/15/2016 Active DULoxetine HCl 30 MG Oral Capsule Delayed Release Particles (Cymbalta) Take 2 Capsules by mouth in the morning. 0 03/25/2019 Active Folic Acid 1 MG Oral Tablet Take 1 Tablet by mouth in the morning. 0 07/01/2015 Active Gabapentin 300 MG Oral Capsule (Neurontin) Take 1 Capsule by mouth in the morning and 1 Capsule at noon and 1 Capsule before bedtime. 0 Active Creon 6000-21968 UNIT Oral Capsule Delayed Release Particles Take 1 Capsule by mouth in the morning and 1 Capsule at noon and 1 Capsule before bedtime. 0 09/30/2023 Active NovoLOG FlexPen ReliOn 100 UNIT/ML Subcutaneous Solution Pen-injector Sliding scale based on blood sugars; prior to meals. 0 10/20/2023 Active Lantus SoloStar 100 UNIT/ML Subcutaneous Solution Pen-injector Inject 28 Units under the skin every evening. 0 01/14/2024 Active documented as of this encounter (statuses as of 01/29/2024) Active Problems Problem Noted Date Diagnosed Date History of amputation of left leg through tibia and fibula 10/20/2023 Type 2 diabetes mellitus wit h diabetic mononeuropathy, with long-term current use of insulin 10/20/2023 documented as of this encounter (statuses as of 01/29/2024) Immunizations Name Administration Dates Next Due TDAP [...] encounter Miscellaneous Notes * Telephone Encounter - Yin Dillon LPN - 01/29/2024 7:10 AM EDT Mailed letter regarding need to call office about recent lab results to discuss results, and what she would like to do. * Telephone Encounter - Corrie Sanders RN - 01/28/2024 8:53 AM EDT Called both cell and home phones and left messages to return our call * Telephone Encounter - Deborah Anne LPN - 01/26/2024 11:08 AM EDT Called pt-- No answer, LM on VM to return call or read my g. If call return please read message below and have pt answer questions. Ms. Chiu I reviewed your labs Cholesterol - mild elevation. But with diabetes your LDL goal is < 70 A1c - diabetes test - elevated at 8.5 Other labs look good Would you like to meet with our diabetic pharmacy team to help get your sugars under better control? What do your morning sugars look like (fasting)? How about after a large meal? Would you be ok with starting on a cholesterol lowering medication? * Telephone Encounter - Breanna Hardy DO - 01/23/2024 6:40 PM EDT Pt does not read myg please call * Telephone Encounter - Yin Dillon LPN - 01/23/2024 10:02 AM EDT Sent My G to pt regarding lab results. * Telephone Encounter - Breanna Hardy DO - 01/23/2024 9:28 AM EDT Ms. Chiu I reviewed your labs Cholesterol - mild elevation. But with diabetes your LDL goal is < 70 A1c - diabetes test - elevated at 8.5 Other labs look good Would you like to meet with our diabetic pharmacy team to help get your sugars under better control? What do your morning sugars look like (fasting)? How about after a large meal? Would you be ok with starting on a cholesterol lowering medication? Thank you Breanna Hardy DO documented in this encounter Plan of Treatment Upcoming Encounters Date Type Department Care Team (Late st Contact Info) Description 02/18/2024 11:00 AM EDT Office Visit Family Practice [facility] [address] [facility] [place] [address] Ingrid Mejias PA-C 200 [facility] [place] [address] 02/18/2024 1:00 PM EDT Imaging Radiology [facility]st [facility] 132 [facility] [place] [address] 05/26/2024 10:30 AM EDT Imaging Radiology, [address] [place] [address] 07/20/2024 11:00 AM EDT Telemedicine Endocrinology, [place] [address] [place] [address] Oneida Henderson PA-C [address] [place] [address] 12/28/2024 10:30 AM EDT Office Visit Gynecology/Obstetrics [facility] [address] [place] [address] Sandra Kauffman CRNP [address] [place] [address] Health Maintenance Due Date Last Done Comments DISCUSS TOBACCO CESSATION (REFER TO SMARTSET #[id number]) 1965 Pneumococcal Vaccine: Pediatrics (0 to 5 [...] filedocumented as of this encounter Care Teams Real Estate Appraiser Relationship Specialty Start Date End Date Ingrid Mejias PA-C [address] [place] [address] PCP - General Physician Optometric Assistant 01/14/24 documented as of this encounter
--- OUTSIDE RECORDS SUMMARY | 2024-03-13 22:27 | External Medical Summary | Summary of Care ---
Author Name Unknown Organization [facility] Address [address] [facility] [address] Phone [phone] Care Team Providers Care Collar Sewer Name Role Phone Ingrid Mejias PA-C Primary Care Provider [phone] Reason for Visit * Reason Onset Date Comments Follow Up 01/23/2024 Encounter Details Date Type Department Care Team (Late st Contact Info) Description 01/23/2024 Telephone Family Practice [facility] [address] [facility] [place] [address] Breanna Hardy DO 132 [facility] [place] [address] Follow Up Allergies Active Allergy Reactions Criticality Noted Date Comments Lorazepam 05/20/2016 Haloperidol Lactate 05/20/2016 documented as of this encounter (statuses as of 01/28/2024) Medications Medication Sig Dispensed Refills Start Date End Date Status Melatonin 5 MG Tablet Take 1 Capsule by mouth at bedtime. 0 Active Cyanocobalamin 2500 MCG CHEW Take 1,000 mcg by mouth. 0 Active Multiple Vitamins-Minerals (MULTIVITAMIN ADULT) TABS Take by mouth. 0 Active Naproxen Sod-Diphenhydramine 220-25 MG TABS Take by mouth. 0 Active fluticasone (FLONASE) 50 MCG/ACT nasal spray Administer 1 [place] into nostril in the morning. 0 Active [...] 1 Capsule before bedtime. 0 Active Creon 6000-64006 UNIT Oral Capsule Delayed Release Particles Take [...] as of this encounter (statuses as of 01/28/2024) Active Problems Problem Noted Date Diagnosed Date History of amputation of left leg through tibia and fibula 10/20/2023 Type 2 diabetes mellitus wit h diabetic mononeuropathy, with long-term current use of insulin 10/20/2023 documented as of this encounter (statuses as of 01/28/2024) Immunizations Name Administration Dates Next Due TDAP [...] encounter Miscellaneous Notes * Telephone Encounter - Corrie Sanders RN [...] 02/18/2024 11:00 AM EDT Office Visit Family [facility] 200 [facility] [place] [address] Ingrid Mejias PA-C 200 [facility] [place] [address] 02/18/2024 1:00 PM EDT Imaging Radiology [address] [place] [address] 05/26/2024 10:30 AM EDT Imaging Radiology[address] [place] [address] 07/20/2024 11:00 AM EDT Telemedicine Endocrinology, [place] [address] [place] [address] Oneida Henderson PA-C [address] [place] [address] 12/28/2024 10:30 AM EDT Office Visit Gynecology/Obstetrics [facility] [address] [place] [address] Sandra Kauffman CRNP [address] [place] [address] Health Maintenance Due Date Last Done Comments DISCUSS TOBACCO CESSATION (REFER TO SMARTSET #[id number]) 1965 Pneumococcal Vaccine: Pediatrics (0 to 5 [...] filedocumented as of this encounter Care Teams Collar Sewer Relationship Specialty Start Date End Date Randell January CECIL Pearson [address] [place] [address] PCP - General Physician Squadron Worker 01/14/24 documented as of this encounter
--- OUTSIDE RECORDS SUMMARY | 2024-03-13 22:27 | External Medical Summary | Summary of Care ---
Author Name Unknown Organization [facility] Address [address] [facility] [address] Phone [phone] Care Team Providers Care Motion Picture Cameraman Name Role Phone Ingrid Mejias PA-C Primary Care Provider [phone] Reason for Visit * Reason Onset Date Comments Advice 01/26/2024 Encounter Details Date Type Department Care Team (Late st Contact Info) Description 01/26/[address] [facility] [address] [facility] [place] [address] Breanna Neal DO 132 [facility] [place] [address] Advice Allergies Active Allergy Reactions Criticality Noted Date Comments Lorazepam 05/20/2016 Haloperidol Lactate 05/20/2016 documented as of this encounter (statuses as of 01/26/2024) Medications Medication Sig Dispensed Refills Start Date End Date Status Melatonin 5 MG Tablet Take 1 Capsule by mouth at bedtime. 0 Active Cyanocobalamin 2500 MCG CHEW Take 1,000 mcg by mouth. 0 Active Multiple Vitamins-Minerals (MULTIVITAMIN ADULT) TABS Take by mouth. 0 Active Naproxen Sod-Diphenhydramine 220-25 MG TABS Take by mouth. 0 Active fluticasone (FLONASE) 50 MCG/ACT nasal spray Administer 1 [place] into nostril in the morning. 0 Active [...] 1 Capsule before bedtime. 0 Active Creon 6000-85440 UNIT Oral Capsule Delayed Release Particles Take [...] as of this encounter (statuses as of 01/26/2024) Active Problems Problem Noted Date Diagnosed Date History of amputation of left leg through tibia and fibula 10/20/2023 Type 2 diabetes mellitus wit h diabetic mononeuropathy, with long-term current use of insulin 10/20/2023 documented as of this encounter (statuses as of 01/26/2024) Immunizations Name Administration Dates Next Due TDAP [...] encounter Miscellaneous Notes * Telephone Encounter - Breanna Neal DO - 01/26/2024 11:37 AM EDT noted * Telephone Encounter - Kisha Underwood, MED ASSIST - 01/26/2024 11:32 AM EDT DESTINY Dockery * Telephone Encounter - Farzana Abrams OSA - 01/26/2024 9:25 AM EDT [facility] calling stating they have made several attempts to schedule appointment with patient, no answer, no return calls. Any further questions or concerns, please call [phone]. documented in this encounter Plan of Treatment Upcoming Encounters Date Type Department Care Team (Late st Contact Info) Description 02/18/2024 11:00 AM EDT Office Visit Family [facility] 200 [facility] [place] [address] Ingrid Mejias PA-C 200 [facility] [place] [address] 02/18/2024 1:00 PM EDT Imaging Radiology [address] 132 [facility] [place] [address] 05/26/2024 10:30 AM EDT Imaging Radiology, [facility] [address] [place] [address] 07/20/2024 11:00 AM EDT Telemedicine Endocrinology, [place] [address] [place] [address] Oneida Henderson PA-C [address] [place] [address] 12/28/2024 10:30 AM EDT Office Visit Gynecology/Obstetrics Sharri Villatoro [address] [place] [address] Sandra Kauffman CRNP [address] [place] [address] Health Maintenance Due Date Last Done Comments DISCUSS TOBACCO CESSATION (REFER TO SMARTSET #2016) 1965 Pneumococcal Vaccine: Pediatrics (0 to 5 [...] filedocumented as of this encounter Care Teams Motion Picture Cameraman Relationship Specialty Start Date End Date Randell January Lili, CECIL [address] [place] [address] PCP - General Physician Tank Car Repairer 01/14/24 documented as of this encounter
--- OUTSIDE RECORDS SUMMARY | 2024-03-13 22:27 | External Medical Summary | Summary of Care ---
Author Name Unknown Organization [facility] Address [address] [facility] [address] Phone [phone] Care Team Providers Care Contact Clerk Name Role Phone Ingrid Mejias PA-C Primary Care Provider [phone] Reason for Visit * Reason Onset Date Comments Follow Up 01/23/2024 Encounter Details Date Type Department Care Team (Late st Contact Info) Description 01/23/2024 Telephone Family Practice [facility] [address] [facility] [place] [address] Breanna Hardy DO 132 [facility] [place] [address] Follow Up Allergies Active Allergy Reactions Criticality [...] (FLONASE) 50 MCG/ACT nasal spray Administer 1 [place] into nostril in the morning. 0 Active [...] 1 Capsule before bedtime. 0 Active Creon 6000-29270 UNIT Oral Capsule Delayed Release Particles Take [...] encounter Miscellaneous Notes * Telephone Encounter - Deborah Anne LPN [...] 11:00 AM EDT Office Visit Family Practice [facility] 200 [facility] [place] [address] Ingrid Mejias PA-C [address] [facility] [place] [address] 02/18/2024 1:00 PM EDT Imaging Radiology [facility] 1st [facility] [address] [place] [address] 05/26/2024 10:30 AM EDT Imaging Radiology, [facility] [address] [facility] [place] [address] 07/20/2024 11:00 AM EDT Telemedicine Endocrinology, [place] [address] [place] [address] Oneida Henderson PA-C [address] [place] [address] 12/28/2024 10:30 AM EDT Office Visit Gynecology/Obstetrics [facility] [address] [place] [address] Sandra Kauffman CRNP [address] [place] [address] Health Maintenance Due Date Last Done Comments DISCUSS TOBACCO CESSATION (REFER TO SMARTSET #[id number]) 1965 Pneumococcal Vaccine: Pediatrics (0 to 5 [...] filedocumented as of this encounter Care Teams Contact Clerk Relationship Specialty Start Date End Date Teres[place]uary CECIL Pearson [address] [place] [address] PCP - General Physician Artist Scientific 01/14/24 documented as of this encounter
[2024-03-13 23:16] LABS: Hematocrit (blood only) 46.6 % (37.0-47.0); Hemoglobin 15.6 g/dl (12.0-16.0); Mean Corpuscular Hemoglobin 30.5 pg (25.0-34.0); Mean Corpuscular Hgb Conc 33.5 g/dL (32.0-36.0); Mean Corpuscular Volume 91.2 fL (80.0-100.0); Mean Platelet Volume 9.6 fL (9.4-12.4); Platelet Count 201 K/uL (130-400); RDW Coefficient of Variation 14.7 % (11.5-14.5); RDW Standard Deviation 49.3 fL (36.4-46.3); Red Blood Count 5.11 M/uL (4.20-5.40); White Blood Count 6.34 K/ul (4.8-10.8)
--- NOTE | 2024-03-13 23:20 | Emergency Department Note ---
Impression & Plan Acute alteration in mental status, Alcohol intoxication, Syncope, Hypoglycemia ED Provider Note NAME: NANCY CORREA AGE: 58 SEX: F : 1965 ARRIVES VIA: Ambulance INFORMANT: Patient, the patient's mother ED PROVIDER(S): Pete Giles DO CHIEF COMPLAINT: Altered mental status HPI: The patient is a 58-year-old female who presented to the emergency department by ambulance for an evaluation of altered mental status. According to the patient's mother she does have a history of alcohol abuse but she has not had any alcohol problems in almost a year. The patient came home from work recently after having a syncopal episode. There was no reported alcohol use according to her mother. Her mother went to check on her and she was found to be confused. She was found to have a low blood sugar according to her mother which was treated but then she did not improve so they called 911 and the patient arrived via ambulance. There was no reported neck or back pain. There is been no reported fevers. ROS: See above HPI for pertinent positives & negatives. A total of 10 systems reviewed and were otherwise negative. PAST MEDICAL HISTORY: See Below PAST SURGICAL HISTORY: See Below FAMILY HISTORY: See Below SOCIAL HISTORY: See Below HOME MEDICATIONS: See Below ALLERGIES: See Below VITALS: See Below PHYSICAL EXAMINATION: GENERAL: The patient is awake to loud verbal commands. EYES: The conjunctivae are clear. The pupils are dilated and reactive bilaterally. EARS, NOSE, MOUTH AND THROAT: The nose is without any evidence of any deformity. NECK: The neck is nontender and supple. RESPIRATORY: Normal respiratory effort is noted there is no evidence of wheezing rhonchi or rales CARDIOVASCULAR: Regular rate and rhythm noted there no murmurs rubs or gallops normal S1 normal S2. GASTROINTESTINAL: The abdomen is soft. Abdomen is nontender. MUSCULOSKELETAL/EXTREMITIES: There is no evidence of gross deformity full range of motion is noted in the hips and shoulders. SKIN: There is no obvious evidence of any rash. There are no petechiae, pallor or cyanosis noted. NEUROLOGIC: The patient is awake to loud verbal commands. Patellar tendon reflexes are 2+ bilaterally. MEDICAL DECISION MAKING: The patient is a 58-year-old male who presents emergency department by ambulance for an alteration in mental status. The patient does have a history of alcohol abuse but according to her mother she has been clean for almost a year. The patient was found to be confused and difficult to wake up by her mother. She thought her blood sugar could be low. Reportedly she did check her blood sugar and it was very low in the 30s. She was treated for this but did not improve so 911 was called. The patient arrived via ambulance. I discussed the patient's laboratory and radiographic studies with her and her mother. The patient slowly improved while she was in the emergency department but alcohol level was found to be very high. Given the patient's history I do feel she may be at risk for withdrawal symptoms. She also had a reported syncopal episode while she was at work which could be related to alcohol intoxication but given her comorbidities I do feel the patient may benefit from inpatient management. For this reason the [facility]ist was notified about the patient. Triage Nursing notes reviewed. Prior medical records reviewed Vital Signs: reviewed and remarkable for blood pressure. Differential diagnosis: Infection, hypoglycemia, electrolyte abnormalities, overdose, toxicologic, cardiac sources, intracerebral event, neurologic, trauma, as well as other pathologies. ER treatment provided: See below Diagnostics interpreted by me: ECG: EKG was obtained in the emergency department. My interpretation is normal sinus rhythm at 79 bpm. There is no ectopy. There is no acute ST segment abnormalities noted. This was compared to a tracing from March 10, 2023. No changes were noted. Cardiac Monitoring: An order was placed for continuous cardiac monitoring. The monitor shows a rate of 83 bpm with sinus rhythm. Laboratory studies: As stated above and show below. Imaging studies: See below. Radiographic imaging was reviewed by myself Consultation(s): I discussed this case with Dr. Vance who is on-call for the [facility] hospitalist group. Past Med/Surg History Problem List (Updated 03/14/24 @ 01:14 by Pete Giles DO) Hypoglycemia (Acute) Syncope (Acute) Alcohol intoxication (Acute) Acute alteration in mental status (Acute) Alcohol use disorder Vitamin D deficiency (Acute) Psoriasis (Acute) IPMN (intraductal papillary mucinous neoplasm) Imaging July 2020 follow-up yearly Encephalomalacia (Acute) History of GI bleed Diabetic peripheral neuropathy associated with type 1 diabetes mellitus Liver cirrhosis (Acute) Exocrine pancreatic insufficiency Insomnia Dysesthesia Diabetes type 1, uncontrolled (Acute) Dyslipidemia Alcohol abuse (Acute) Below knee amputation Medical History Oral thrush Thrombocytopenia Tobacco dependence Depression with anxiety Unable to establish with psychiatrist Hydrosalpinx PT UNAWARE SBO (small bowel obstruction) Resolved Lipoma NECK Polycystic ovarian syndrome Surgical History History of left below knee amputation Amputation of left lower extremity TO APPROX MID CALF History of ankle surgery 02/2019 left ankle ex fix, grade 2 view with MAC 3 and 7.0 ETT History of tooth extraction Family History Uncle Diabetes Mother Breast cancer Sister Breast cancer Father Prostate cancer Other Family history of breast cancer in mother Family history of breast cancer in sister Denies family history of Ovarian cancer Myocardial infarction Colorectal cancer Social History Smoking Status: Current every day smoker Tobacco Type: Cigarettes packs per day: 0.75; Cigarettes Per Day: 10; Second Hand Exposure: Yes; Do You Dip or Chew Tobacco: No; Hx Alcohol Use: Yes Alcohol type: wine Hx Substance Use: No Preferred Language: Swedish Communication Ability: Effective Visual Impairment: No Limitations Personnel Clerks Supervisor Required: No Beliefs That Will Affect Care: None marital status: marital status details: no children Current Living Situation: Alone Current Living Situation Comment: unknown current occupational status: disabled Feels Safe at Home: Yes Assistive Devices: Walker, Wheelchair and Other (Prosthetic) Allergies Allergies Allergy/AdvReac Type Severity Reaction Status Date / Time haloperidol [From Haldol] AdvReac Unknown Unknown Verified 01/23/24 14:19 Home Meds Home Medications Medication Instructions Recorded Confirmed cholecalciferol (vitamin D3) 25 1,000 units PO HS 06/23/19 01/23/24 mcg (1,000 unit) capsule cyanocobalamin (vitamin B-12) 1,000 mcg PO DAILY 05/10/20 01/23/24 1,000 mcg tablet (Vitamin B-12) multivitamin 1 tab PO DAILY 12/24/21 01/23/24 folic acid 1 mg tablet 1 mg PO DAILY 05/21/22 01/23/24 clobetasol 0.05 % scalp solution 1 applic topical DAILY PRN flare 12/23/22 01/23/24 fluticasone propionate 50 2 spray intranasal DAILY 03/11/23 01/23/24 mcg/actuation nasal spray,suspension Previous Rx's Medication Instructions Recorded insulin glargine 100 unit/mL (3 40 unit (0.4 mL) subcut QPM #45 mL 09/08/23 mL) subcutaneous pen (Lantus Solostar U-100 Insulin) insulin aspart U-100 100 unit/mL 50 unit (0.5 mL) subcut DAILY #45 09/09/23 (3 mL) subcutaneous pen (Novolog mL FlexPen U-100 Insulin aspart) duloxetine 60 mg capsule,delayed 60 mg PO QAM #30 caps 09/26/23 release (Cymbalta) flash glucose sensor (FreeStyle #7 ea 09/26/23 Janny 2 Sensor kit) gabapentin 300 mg capsule 300 mg PO TID #90 caps 09/26/23 [id number] 1 cap PO TID #90 caps 09/26/23 6,000-19,000-30,000 unit capsule,delayed rel (Creon) Results & Data (ED) Vital Signs Vital Signs - 24 hr 03/13/24 22:27 03/13/24 22:48 03/13/24 23:03 Temperature 36.3 C L Temperature Source Axillary Pulse Rate 88 78 Pulse Rate [Apical] 83 Pulse Rhythm Regular Pulse Rhythm [Apical] Regular Pulse Strength Normal Pulse Strength [Apical] Normal Respiratory Rate 21 22 Respiratory Effort / Characteristics Non-Labored Non-Labored Respiratory Depth Normal Normal Respiratory Pattern Regular Regular Blood Pressure 161/96 H Blood Pressure [Left Arm] 176/101 H Blood Pressure Mean 117 Blood Pressure Mean [Left Arm] 126 Blood Pressure Position Lying Blood Pressure Position [Left Arm] Lying Pulse Oximetry 100 100 Oxygen Delivery Method Nasal Cannula Nasal Cannula Oxygen Flow Rate 2 2 Sepsis Recent Fever Within 48 Hours No Sepsis New/Unexplained Change in Mental Status Yes Sepsis Action Taken by Nursing No Action Required Home Medications Current Medication List: was personally reviewed by me Laboratory Data Attestation: I reviewed the patient's lab results. Osmolar gap was calculated. There was no significant osmolar gap noted. There is no suspicion for toxic alcohol at this time. 03/13/24 22:35 03/13/24 22:35 Lab Results 03/13/24 03/13/24 Range/Units 22:35 22:36 WBC 6.34 (4.8-10.8) K/ul RBC 5.11 (4.20-5.40) M/uL Hgb 15.6 (12.0-16.0) g/dl Hct 46.6 (37.0-47.0) % MCV 91.2 (80.0-100.0) fL MCH 30.5 (25.0-34.0) pg MCHC 33.5 (32.0-36.0) g/dL RDW Std Deviation 49.3 H (36.4-46.3) fL RDW Coeff of Ethel 14.7 H (11.5-14.5) % Plt Count 201 (130-400) K/uL MPV 9.6 (9.4-12.4) fL Immature Gran % (Auto) 0.2 % Neut % (Auto) 36.9 % Lymph % (Auto) 50.6 % [place] % (Auto) 5.4 % Eos % (Auto) 5.8 % Baso % (Auto) 1.1 % Neut # (Auto) 2.34 (1.40-6.50) K/uL Lymph # (Auto) 3.21 (1.20-3.40) K/uL [place] # (Auto) 0.34 (0.11-0.59) K/uL Eos # (Auto) 0.37 (0.00-0.50) K/uL Baso # (Auto) 0.07 (0.00-0.20) K/uL Immature Gran # (Auto) 0.01 (0.01-0.20) K/uL PT 10.7 (9.0-12.0) Seconds INR 1.0 (0.9-1.1) APTT 21 (21-31) Seconds PTT Ratio 0.8 Sodium 145 (136-145) mmol/L Potassium 4.2 (3.5-5.1) mmol/L Chloride 108 H (98-107) mmol/L Carbon Dioxide 28 (21-32) mmol/L Anion Gap 9 (3-11) BUN 8 (6-23) mg/dl Creatinine 0.63 (0.6-1.2) mg/dl Est Cr Clr Drug Dosing 94.7 ml/min Est GFR ( Amer) 114.6 ml/min Est GFR (Non-Af Amer) 98.9 ml/min BUN/Creatinine Ratio 12.7 (10-20) Glucose 105 H (70-99(Fasting)) mg/dl POC Glucose 106 H (70-99) mg/dl Osmolality 414 H* (280-300) mOsm/kg Calcium 8.5 L (8.6-10.3) mg/dl Magnesium 2.1 (1.7-2.4) mg/dl Total Bilirubin 0.2 (0.2-1.0) mg/dl AST 21 (13-39) U/L ALT 15 (7-52) U/L Alkaline Phosphatase 96 (34-104) U/L Total Creatine Kinase 38 (26-192) U/L Troponin I High Sens 4.7 (0-14) pg/ml Total Protein 6.9 (6.0-8.3) gm/dl Albumin 4.1 (3.4-5.0) gm/dl Globulin 2.8 (2.5-4.0) gm/dl Albumin/Globulin Ratio 1.5 (0.9-2) Lipase 6 L (11-82) U/L Salicylates < 3.0 L (3.0-30) mg/dl Acetaminophen < 3 L (10-30) ug/ml Ethyl Alcohol mg/dL 463.1 H (<10.0) mg/dl Imaging Data Attestation: I personally reviewed and interpreted this imaging study as follows: My Impression: 1 view chest x-ray was obtained in the emergency department. My interpretation is atelectasis at the left base, no definite infiltrate or free air, compared to a chest x-ray from December 26, 2022 no significant changes were noted, final report pending. CT of the brain was obtained in the emergency department. My interpretation is no intracranial hemorrhage or mass effect, final report pending. Radiologist's Impression: Head CT 03/13/24 23:04 Exam(s): CT HEAD Without Contrast EXAM: CT Head Without Intravenous Contrast CLINICAL HISTORY: AMS. TECHNIQUE: Axial computed tomography images of the head/brain without intravenous contrast. CTDI is 36.31 mGy and DLP is 624.41 mGy-cm. Automated exposure control was utilized for the study. A dose lowering technique was utilized adhering to the principles of ALARA. COMPARISON: CT head without contrast dated 03/10/2023 FINDINGS: Brain: No intracranial hemorrhage. No significant mass effect. The parenchyma is stable when compared to the previous examination. No significant white matter disease. Ventricles: No midline shift or ventriculomegaly. Bones/joints: Unremarkable. No acute fracture. Soft tissues: No significant overlying acute traumatic soft tissue abnormality. No radiopaque foreign body. Sinuses: Unremarkable as visualized. No acute sinusitis. Mastoid air cells: Unremarkable as visualized. No mastoid effusion. IMPRESSION: No acute intracranial process or significant alteration from the prior examination. Electronically signed by: Rafa Bahena MD 03/14/24 00:[address] 03/13/24 23:08 Exam(s): CT C SPINE EXAM: CT Cervical Spine Without Intravenous Contrast CLINICAL HISTORY: fall. TECHNIQUE: Axial computed tomography images of the cervical spine without intravenous contrast. CTDI is 24.93 mGy and DLP is 539.45 mGy-cm. Automated exposure control was utilized for the study. A dose lowering technique was utilized adhering to the principles of ALARA. COMPARISON: CT cervical spine dated 02/07/2023 FINDINGS: Vertebrae: The cervical vertebral bodies are intact. Stable grade 1 retrolisthesis of C3 on C4 and C5 on C6. There is new 1-2 mm retrolisthesis of C4 on C5. The pedicles, facet joints, spinous processes and transverse processes are intact. Discs/spinal canal/neural foramina: Multilevel chronic appearing disc space narrowing with circumferential disc marginal osteophyte hypertrophic changes are progressive. No significant osseous central canal stenosis. Facet hypertrophic changes noted at several levels bilaterally, right greater than left. Soft tissues: Unremarkable. Lung apices: The included lung apices demonstrate no evidence for significant acute traumatic injury. IMPRESSION: No acute osseous traumatic injury, significant acute traumatic abnormal alignment or significant alteration in appearance of the cervical spine when compared to the previous examination. Mildly progressive degenerative changes incidentally noted. Electronically signed by: Rafa Bahena MD 03/14/24 00:55 AM Discharge Plan Visit Data Chief Complaint: Alcohol Intoxication Stated Complaint: ETOH, Semi-Responsive ED Provider: Pete Giles Discharge Problem: Acute alteration in mental status, Alcohol intoxication, Syncope, Hypoglycemia Patient Disposition: Being Evaluated by Hospitalist Forms Stand Alone Forms: [facility] [employer] Prescriptions Prescriptions: No Action insulin glargine [Lantus Solostar U-100 Insulin] 100 unit/mL (3 mL) insulin pen 40 unit subcut QPM MDD 50 Qty: 45 1RF insulin aspart U-100 [Novolog FlexPen U-100 Insulin] 100 unit/mL (3 mL) insulin pen 50 unit subcut DAILY Qty: 45 1RF Rx Instructions: Inject 1 unit of insulin for each 10 grams of carb. Use scale of 150 target with correction factor of 30 gabapentin 300 mg capsule 300 mg PO TID Qty: 90 5RF duloxetine [Cymbalta] 60 mg capsule,delayed release(DR/EC) 60 mg PO QAM Qty: 30 5RF Creon 6,000-19,000 -30,000 unit capsule,delayed release(DR/EC) 1 cap PO TID Qty: 90 5RF (DME) FreeStyle Janny 2 Sensor Kit See Rx Instructions .Route Qty: 7 3RF Rx Instructions: change Q14D cholecalciferol (vitamin D3) 1,000 unit capsule 1,000 units PO HS multivitamin Tablet 1 tab PO DAILY cyanocobalamin (vitamin B-12) [Vitamin B-12] 1,000 mcg tablet 1,000 mcg PO DAILY folic acid 1 mg Tablet 1 mg PO DAILY fluticasone propionate 50 mcg/actuation [place],Suspension 2 spray INTRANASAL DAILY Rx Instructions: administer into each nostril clobetasol 0.05 % solution 1 applic topical DAILY PRN (Reason: flare) Rx Instructions: Apply to scalp once daily as needed for flaring. Referrals Referrals: Chaz Cassidy DO [Primary Care Provider] - Discharge Problem: Alcohol intoxication Qualifiers: Complication of substance-induced condition: uncomplicated Qualified Code(s): F 10.920 - Alcohol use, unspecified with intoxication, uncomplicated Syncope Qualifiers: Syncope type: unspecified Qualified Code(s): R55 - Syncope and collapse
[2024-03-13 23:23] LABS: Albumin Globulin Ratio 1.5 (0.9-2); Albumin Level 4.1 gm/dl (3.4-5.0); BUN Creatinine Ratio 12.7 (10-20); Bilirubin,Total 0.2 mg/dl (0.2-1.0); Calcium 8.5 mg/dl (8.6-10.3); Creatinine Clr Calc Pharmacy 94.7 ml/min; Est GFR (African American) 114.6 ml/min; Est GFR (Non-African American) 98.9 ml/min; Globulin 2.8 gm/dl (2.5-4.0); Magnesium 2.1 mg/dl (1.7-2.4); Potassium 4.2 mmol/L (3.5-5.1); Total Protein 6.9 gm/dl (6.0-8.3)
[2024-03-13 23:30] LABS: Troponin I High Sensitivity 4.7 pg/ml (0-14)
[2024-03-13 23:34] LABS: Acetaminophen < 3 ug/ml (10-30); Salicylate < 3.0 mg/dl (3.0-30)
[2024-03-13 23:36] LABS: Basophils # (auto) 0.07 K/uL (0.00-0.20); Basophils % (auto) 1.1 %; Eosinophils # (auto) 0.37 K/uL (0.00-0.50); Eosinophils % (auto) 5.8 %; Immature Granulocytes # (auto) 0.01 K/uL (0.01-0.20); Immature Granulocytes % (auto) 0.2 %; Lymphocytes # (auto) 3.21 K/uL (1.20-3.40); Lymphocytes % (auto) 50.6 %; Monocytes # (auto) 0.34 K/uL (0.11-0.59); Monocytes % (auto) 5.4 %; Neutrophils # (auto) 2.34 K/uL (1.40-6.50); Neutrophils % (auto) 36.9 %
[2024-03-13 23:43] LABS: Partial Thromboplastin Ratio 0.8; Partial Thromboplastin Time 21 Seconds (21-31); Prothrombin Time 10.7 Seconds (9.0-12.0)
--- NOTE | 2024-03-14 00:56 | CT Scan Report ---
Exam(s): CT C SPINE EXAM: CT Cervical Spine Without Intravenous Contrast CLINICAL HISTORY: fall. TECHNIQUE: Axial computed tomography images of the cervical spine without intravenous contrast. CTDI is 24.93 mGy and DLP is 539.45 mGy-cm. Automated exposure control was utilized for the study. A dose lowering technique was utilized adhering to the principles of ALARA. COMPARISON: CT cervical spine dated 02/07/2023 FINDINGS: Vertebrae: The cervical vertebral bodies are intact. Stable grade 1 retrolisthesis of C3 on C4 and C5 on C6. There is new 1-2 mm retrolisthesis of C4 on C5. The pedicles, facet joints, spinous processes and transverse processes are intact. Discs/spinal canal/neural foramina: Multilevel chronic appearing disc space narrowing with circumferential disc marginal osteophyte hypertrophic changes are progressive. No significant osseous central canal stenosis. Facet hypertrophic changes noted at several levels bilaterally, right greater than left. Soft tissues: Unremarkable. Lung apices: The included lung apices demonstrate no evidence for significant acute traumatic injury. IMPRESSION: No acute osseous traumatic injury, significant acute traumatic abnormal alignment or significant alteration in appearance of the cervical spine when compared to the previous examination. Mildly progressive degenerative changes incidentally noted. Electronically signed by: Rafa Bahena MD 03/14/24 00:55 AM
--- NOTE | 2024-03-14 00:57 | CT Scan Report ---
Exam(s): CT HEAD Without Contrast EXAM: CT Head Without Intravenous Contrast CLINICAL HISTORY: AMS. TECHNIQUE: Axial computed tomography images of the head/brain without intravenous contrast. CTDI is 36.31 mGy and DLP is 624.41 mGy-cm. Automated exposure control was utilized for the study. A dose lowering technique was utilized adhering to the principles of ALARA. COMPARISON: CT head without contrast dated 03/10/2023 FINDINGS: Brain: No intracranial hemorrhage. No significant mass effect. The parenchyma is stable when compared to the previous examination. No significant white matter disease. Ventricles: No midline shift or ventriculomegaly. Bones/joints: Unremarkable. No acute fracture. Soft tissues: No significant overlying acute traumatic soft tissue abnormality. No radiopaque foreign body. Sinuses: Unremarkable as visualized. No acute sinusitis. Mastoid air cells: Unremarkable as visualized. No mastoid effusion. IMPRESSION: No acute intracranial process or significant alteration from the prior examination. Electronically signed by: Rafa Bahena MD 03/14/24 00:56 AM
[2024-03-14] MEDS ORDERED: DEXTROSE 50% 50 ML SYRINGE IV PRN (03:50)
[2024-03-14] MEDS ORDERED: ONDANSETRON INJ 2 MG/ML 2 ML VIAL IV PRN (03:50)
[2024-03-14] MEDS ORDERED: CARBOHYDRATES FOR HYPOGLYCEMIA PO PRN (03:50)
[2024-03-14] MEDS ORDERED: GLUCAGON FOR INJ 1 MG VIAL SQ PRN (03:50)
[2024-03-14] MEDS ORDERED: PHARMACY GLYCEMIC MGMT CONSULT PRN (03:50)
[2024-03-14] MEDS ORDERED: GLUCOSE 40% GEL 15 GM TUBE PO PRN (03:50)
[2024-03-14] MEDS ORDERED: GLUCOSE 10 TAB/TUBE PO PRN (03:50)
--- NOTE | 2024-03-14 04:29 | History & Physical Report ---
Date of Service March 14, 2024 Assessment & Plan (1) Alcohol intoxication: Plan: Patient unable to provide details on amount of EtOH she drinks daily or when her last drink occurred. -Admit to medical -Check UTox -Maintain fall precautions -Monitor for withdrawal symptoms (2) Acute alteration in mental status: Plan: Likely secondary to EtOH and hypoglycemia -MOntior for EtOH withdrawal -Management of insulin -Frequent orientation (3) Diabetes type 1, uncontrolled: Plan: With erratic blood sugars. -Check HgbA1C -Lantus 20u BID -ISS -Glycemic management consultation appreciated -Continue Gabapentin Admission and Anticipated Discharge Date Admission Date: March 14, 2024 History of Present Illness Chief Complaint: EtOH intoxication, AMS Primary Care Provider: DO Gem Rich Apple is a 58yo female with history of DM-I, alcoholism and HLP presenting with intoxication, hypoglycemia and confusion. patient is intoxicated and unable to provide details of events prior to arrival. Patient's mother found her confused, called 911 Intoxicated, reports that she fell from her wheelchair. Reports that her blood sugars have been very erratic. Drinks daily - wine. Unable to quantify amount or when her last drink was. Denies history of withdrawals. Allergies Allergy/AdvReac Type Severity Reaction Status Date / Time haloperidol [From Haldol] AdvReac Unknown Unknown Verified 03/14/24 01:35 Home Medications Medication Instructions Recorded Confirmed Type cholecalciferol (vitamin D3) 25 1,000 units PO HS 06/23/19 03/14/24 History mcg (1,000 unit) capsule cyanocobalamin (vitamin B-12) 1,000 mcg PO DAILY 05/10/20 03/14/24 History 1,000 mcg tablet (Vitamin B-12) multivitamin 1 tab PO DAILY 12/24/21 03/14/24 History folic acid 1 mg tablet 1 mg PO DAILY 05/21/22 03/14/24 History clobetasol 0.05 % scalp solution 1 applic topical DAILY PRN flare 12/23/22 03/14/24 History fluticasone propionate 50 2 spray intranasal DAILY 03/11/23 03/14/24 History mcg/actuation nasal spray,suspension insulin glargine 100 unit/mL (3 40 unit (0.4 mL) subcut QPM #45 mL 09/08/23 03/14/24 Rx mL) subcutaneous pen (Lantus Solostar U-100 Insulin) insulin aspart U-100 100 unit/mL 50 unit (0.5 mL) subcut DAILY #45 09/09/23 03/14/24 Rx (3 mL) subcutaneous pen (Novolog mL FlexPen U-100 Insulin aspart) duloxetine 60 mg capsule,delayed 60 mg PO QAM #30 caps 09/26/23 03/14/24 Rx release (Cymbalta) flash glucose sensor (FreeStyle #7 ea 09/26/23 01/23/24 Rx Jnany 2 Sensor kit) gabapentin 300 mg capsule 300 mg PO TID #90 caps 09/26/23 03/14/24 Rx qerege-yrvzoqez-zvgwnjf 1 cap PO TID #90 caps 09/26/23 03/14/24 Rx 6,000-19,000-30,000 unit capsule,delayed rel (Creon) Past Med/Surg History Problem List Hypoglycemia (Acute) Syncope (Acute) Alcohol intoxication (Acute) Acute alteration in mental status (Acute) Alcohol use disorder Vitamin D deficiency (Acute) Psoriasis (Acute) IPMN (intraductal papillary mucinous neoplasm) Imaging July 2020 follow-up yearly Encephalomalacia (Acute) History of GI bleed Diabetic peripheral neuropathy associated with type 1 diabetes mellitus Liver cirrhosis (Acute) Exocrine pancreatic insufficiency Insomnia Dysesthesia Diabetes type 1, uncontrolled (Acute) Dyslipidemia Alcohol abuse (Acute) Below knee amputation Medical History Oral thrush Thrombocytopenia Tobacco dependence Depression with anxiety Unable to establish with psychiatrist Hydrosalpinx PT UNAWARE SBO (small bowel obstruction) Resolved Lipoma NECK Polycystic ovarian syndrome Surgical History History of left below knee amputation Amputation of left lower extremity TO APPROX MID CALF History of ankle surgery 02/2019 left ankle ex fix, grade 2 view with MAC 3 and 7.0 ETT History of tooth extraction Family History Uncle Diabetes Mother Breast cancer Sister Breast cancer Father Prostate cancer Other Family history of breast cancer in mother Family history of breast cancer in sister Denies family history of Ovarian cancer Myocardial infarction Colorectal cancer Social History Smoking Status: Current every day smoker Tobacco Type: Cigarettes packs per day: 0.75; Cigarettes Per Day: 10; Second Hand Exposure: Yes; Do You Dip or Chew Tobacco: No; Hx Alcohol Use: Yes Alcohol type: wine Hx Substance Use: No Preferred Language: Welsh Communication Ability: Effective Visual Impairment: No Limitations Poultry Buyer Required: No Beliefs That Will Affect Care: None marital status: marital status details: no children Current Living Situation: Alone Current Living Situation Comment: unknown current occupational status: disabled Feels Safe at Home: Yes Assistive Devices: Walker, Wheelchair and Other (Prosthetic) Review of Systems Review of Systems: Unobtainable due to cognitive status Physical Exam Physical Exam: General: patient intoxicated, arousable and answers questions appropriately Skin: warm, dry, intact, no rashes or lesions HEENT: NC/AT, PERRL, EOMI, anicteric sclera, conjunctiva without injection, external ear normal to inspection and nontender, nares patent, moist mucus membranes, dentition intact, no oropharyngeal lesions, neck supple, trachea midline, no LAD, no thyromegaly, no JVD Heart: +S1/S2, regular, no m/r/g Lungs: equal air entry bilaterally, no rales/rhonchi/wheezes Abd: +BS, soft, NT/ND, no masses/organomegaly/ascites Ext: s/p left BKA Neuro: intoxicated. Grossly nonfocal Results & Data Results & Data Vital Signs (Past 12 Hours) Vital Signs Temp Pulse Pulse Resp BP BP Pulse Ox 03/14/24 02:22 85 03/14/24 02:00 94 H 16 139/85 98 03/14/24 01:00 91 H 18 175/94 H 100 03/14/24 00:30 88 20 149/88 H 100 03/13/24 23:03 83 22 176/101 H 100 03/13/24 22:48 36.3 C L 78 21 161/96 H 100 03/13/24 22:27 88 O2 Del Method O2 Flow Rate 03/14/24 02:22 03/14/24 02:00 Nasal Cannula 2 03/14/24 01:00 Nasal Cannula 2 03/14/24 00:30 Nasal Cannula 2 03/13/24 23:03 Nasal Cannula 2 03/13/24 22:48 Nasal Cannula 2 03/13/24 22:27 Laboratory Results Laboratory Results WBC 6.34 K/ul (4.8-10.8) 03/13/24 22:35 RBC 5.11 M/uL (4.20-5.40) 03/13/24 22:35 Hgb 15.6 g/dl (12.0-16.0) 03/13/24 22:35 Hct 46.6 % (37.0-47.0) 03/13/24 22:35 MCV 91.2 fL (80.0-100.0) 03/13/24 22:35 MCH 30.5 pg (25.0-34.0) 03/13/24 22:35 MCHC 33.5 g/dL (32.0-36.0) 03/13/24 22:35 RDW Std Deviation 49.3 fL (36.4-46.3) H 03/13/24 22:35 RDW Coeff of Ethel 14.7 % (11.5-14.5) H 03/13/24 22:35 Plt Count 201 K/uL (130-400) 03/13/24 22:35 MPV 9.6 fL (9.4-12.4) 03/13/24 22:35 Immature Gran % (Auto) 0.2 % 03/13/24 22:35 Neut % (Auto) 36.9 % 03/13/24 22:35 Lymph % (Auto) 50.6 % 03/13/24 22:35 Emmons % (Auto) 5.4 % 03/13/24 22:35 Eos % (Auto) 5.8 % 03/13/24 22:35 Baso % (Auto) 1.1 % 03/13/24 22:35 Neut # (Auto) 2.34 K/uL (1.40-6.50) 03/13/24 22:35 Lymph # (Auto) 3.21 K/uL (1.20-3.40) 03/13/24 22:35 Emmons # (Auto) 0.34 K/uL (0.11-0.59) 03/13/24 22:35 Eos # (Auto) 0.37 K/uL (0.00-0.50) 03/13/24 22:35 Baso # (Auto) 0.07 K/uL (0.00-0.20) 03/13/24 22:35 Immature Gran # (Auto) 0.01 K/uL (0.01-0.20) 03/13/24 22:35 PT 10.7 Seconds (9.0-12.0) 03/13/24 22:35 INR 1.0 (0.9-1.1) 03/13/24 22:35 APTT 21 Seconds (21-31) 03/13/24 22:35 PTT Ratio 0.8 03/13/24 22:35 Sodium 145 mmol/L (136-145) 03/13/24 22:35 Potassium 4.2 mmol/L (3.5-5.1) 03/13/24 22:35 Chloride 108 mmol/L (98-107) H 03/13/24 22:35 Carbon Dioxide 28 mmol/L (21-32) 03/13/24 22:35 Anion Gap 9 (3-11) 03/13/24 22:35 BUN 8 mg/dl (6-23) 03/13/24 22:35 Creatinine 0.63 mg/dl (0.6-1.2) 03/13/24 22:35 Est Cr Clr Drug Dosing 94.7 ml/min 03/13/24 22:35 Est GFR ( Amer) 114.6 ml/min 03/13/24 22:35 Est GFR (Non-Af Amer) 98.9 ml/min 03/13/24 22:35 BUN/Creatinine Ratio 12.7 (10-20) 03/13/24 22:35 Glucose 105 mg/dl (70-99(Fasting)) H 03/13/24 22:35 POC Glucose 106 mg/dl (70-99) H 03/13/24 22:36 Osmolality 414 mOsm/kg (280-300) H* 03/13/24 22:35 Calcium 8.5 mg/dl (8.6-10.3) L 03/13/24 22:35 Magnesium 2.1 mg/dl (1.7-2.4) 03/13/24 22:35 Total Bilirubin 0.2 mg/dl (0.2-1.0) 03/13/24 22:35 AST 21 U/L (13-39) 03/13/24 22:35 ALT 15 U/L (7-52) 03/13/24 22:35 Alkaline Phosphatase 96 U/L (34-104) 03/13/24 22:35 Total Creatine Kinase 38 U/L (26-192) 03/13/24 22:35 Troponin I High Sens 4.7 pg/ml (0-14) 03/13/24 22:35 Total Protein 6.9 gm/dl (6.0-8.3) 03/13/24 22:35 Albumin 4.1 gm/dl (3.4-5.0) 03/13/24 22:35 Globulin 2.8 gm/dl (2.5-4.0) 03/13/24 22:35 Albumin/Globulin Ratio 1.5 (0.9-2) 03/13/24 22:35 Lipase 6 U/L (11-82) L 03/13/24 22:35 Salicylates < 3.0 mg/dl (3.0-30) L 03/13/24 22:35 Acetaminophen < 3 ug/ml (10-30) L 03/13/24 22:35 Ethyl Alcohol mg/dL 463.1 mg/dl (<10.0) H 03/13/24 22:[address] 03/13/24 23:04 Exam(s): CT HEAD Without Contrast EXAM: CT Head Without Intravenous Contrast CLINICAL HISTORY: AMS. TECHNIQUE: Axial computed tomography images of the head/brain without intravenous contrast. CTDI is 36.31 mGy and DLP is 624.41 mGy-cm. Automated exposure control was utilized for the study. A dose lowering technique was utilized adhering to the principles of ALARA. COMPARISON: CT head without contrast dated 03/10/2023 FINDINGS: Brain: No intracranial hemorrhage. No significant mass effect. The parenchyma is stable when compared to the previous examination. No significant white matter disease. Ventricles: No midline shift or ventriculomegaly. Bones/joints: Unremarkable. No acute fracture. Soft tissues: No significant overlying acute traumatic soft tissue abnormality. No radiopaque foreign body. Sinuses: Unremarkable as visualized. No acute sinusitis. Mastoid air cells: Unremarkable as visualized. No mastoid effusion. IMPRESSION: No acute intracranial process or significant alteration from the prior examination. Electronically signed by: Rafa Bahena MD 03/14/24 00:[address] 03/13/24 23:08 Exam(s): CT C SPINE EXAM: CT Cervical Spine Without Intravenous Contrast CLINICAL HISTORY: fall. TECHNIQUE: Axial computed tomography images of the cervical spine without intravenous contrast. CTDI is 24.93 mGy and DLP is 539.45 mGy-cm. Automated exposure control was utilized for the study. A dose lowering technique was utilized adhering to the principles of ALARA. COMPARISON: CT cervical spine dated 02/07/2023 FINDINGS: Vertebrae: The cervical vertebral bodies are intact. Stable grade 1 retrolisthesis of C3 on C4 and C5 on C6. There is new 1-2 mm retrolisthesis of C4 on C5. The pedicles, facet joints, spinous processes and transverse processes are intact. Discs/spinal canal/neural foramina: Multilevel chronic appearing disc space narrowing with circumferential disc marginal osteophyte hypertrophic changes are progressive. No significant osseous central canal stenosis. Facet hypertrophic changes noted at several levels bilaterally, right greater than left. Soft tissues: Unremarkable. Lung apices: The included lung apices demonstrate no evidence for significant acute traumatic injury. IMPRESSION: No acute osseous traumatic injury, significant acute traumatic abnormal alignment or significant alteration in appearance of the cervical spine when compared to the previous examination. Mildly progressive degenerative changes incidentally noted. Electronically signed by: Rafa Bahena MD 03/14/24 00:55 AM PG Care Time/CCT Total # of Minutes Spent Total Time Spent with Patient: Total time spent is greater than 50% in coordination of care (as documented) at patient's floor/unit and/or counseling patient: Coding Level of Care Code 84644 INT INP/OBS CARE 2/55MIN Diagnoses Alcohol intoxication F10.920 Complication of substance-induced condition: uncomplicated Acute alteration in mental status R41.82 Diabetes type 1, uncontrolled E10.65 (1) Alcohol intoxication Complication of substance-induced condition: uncomplicated Qualified Code(s): F10.920 - Alcohol use, unspecified with intoxication, uncomplicated
[2024-03-14] MEDS: ONDANSETRON INJ 2 MG/ML 2 ML VIAL IV PRN (07:18)
--- NOTE | 2024-03-14 07:23 | Electrocardiogram Report ---
Test Reason : Blood Pressure : / mmHG Vent. Rate : 079 BPM Atrial Rate : 079 BPM P-R Int : 168 ms QRS Dur : 076 ms QT Int : 376 ms P-R-T Axes : 072 076 072 degrees QTc Int : 431 ms Normal sinus rhythm Possible Left atrial enlargement Abnormal ECG When compared with ECG of 10-MAR-2023 23:27, Non-specific change in ST segment in Inferior leads ST no longer depressed in Anterior leads T wave inversion no longer evident in Inferior leads Confirmed by Artemio Olson ([id number]) on 03/14/2024 7:22:47 AM Referred By: REFERRED SELF Confirmed By:Clive Olson
--- NOTE | 2024-03-14 08:23 | Hospitalist Progress Note ---
Date of Service March 14, 2024 Assessment & Plan (1) Alcohol intoxication: Plan: Patient unable to provide details on amount of EtOH she drinks daily or when her last drink occurred. -Admit to medical -Check UTox -Maintain fall precautions -Monitor for withdrawal symptoms (2) Acute alteration in mental status: Plan: Likely secondary to EtOH and hypoglycemia -MOntior for EtOH withdrawal -Management of insulin -Frequent orientation (3) Diabetes type 1, uncontrolled: Plan: With erratic blood sugars. -Check HgbA1C -Lantus 20u BID -ISS -Glycemic management consultation appreciated -Continue Gabapentin Admission and Anticipated Discharge Date Admission Date: March 14, 2024 Results & Data Results & Data Vital Signs (Past 12 Hours) Vital Signs Temp Pulse Pulse Resp BP BP Pulse Ox 03/14/24 07:42 98.1 F 100 H 16 118/75 100 03/14/24 04:08 98.2 F 93 H 16 144/82 H 95 03/14/24 02:22 85 03/14/24 02:00 94 H 16 139/85 98 03/14/24 01:00 91 H 18 175/94 H 100 03/14/24 00:30 88 20 149/88 H 100 03/13/24 23:03 83 22 176/101 H 100 03/13/24 22:48 97.3 F L 78 21 161/96 H 100 03/13/24 22:27 88 O2 Del Method O2 Flow Rate 03/14/24 07:42 Room Air 03/14/24 04:08 Room Air 03/14/24 02:22 03/14/24 02:00 Nasal Cannula 2 03/14/24 01:00 Nasal Cannula 2 03/14/24 00:30 Nasal Cannula 2 03/13/24 23:03 Nasal Cannula 2 03/13/24 22:48 Nasal Cannula 2 03/13/24 22:27 PG Care Time/CCT Total # of Minutes Spent Total Time Spent with Patient: Total time spent is greater than 50% in coordination of care (as documented) at patient's floor/unit and/or counseling patient: Coding Diagnoses Alcohol intoxication F10.920 Complication of substance-induced condition: uncomplicated Acute alteration in mental status R41.82 Diabetes type 1, uncontrolled E10.65 (1) Alcohol intoxication Complication of substance-induced condition: uncomplicated Qualified Code(s): F10.920 - Alcohol use, unspecified with intoxication, uncomplicated
--- NOTE | 2024-03-14 08:32 | XRay Report ---
SINGLE VIEW CHEST CLINICAL HISTORY: Change in mental status. FINDINGS: An AP, portable, upright chest radiograph is compared to study dated 12/23/2022 and correlat ed with chest CT dated 03/10/2023. The cardiomediastinal silhouette is unremarkable noting atherosclero tic calcification of the thoracic aorta. Chronic interstitial thickening is similar to previous. Ther e is mild bibasilar scarring/atelectasis. The lungs and pleural spaces are otherwise clear. No pneumo thorax is seen. The skeletal structures are osteopenic. There are chronic/healed left-sided rib fract ures. IMPRESSION: No acute cardiopulmonary abnormality is identified. ACT 112: Negative or not required by law. Electronically signed by: Lauro Nj M.D. 03/14/2024 8:31 AM
[2024-03-14] MEDS: INSULIN ASPART PER UNIT CHARGE SC SCH (08:44)
[2024-03-14] MEDS: LANTUS PER UNIT CHARGE SQ SCH (08:48)
[2024-03-14] MEDS: DULoxetine HCL 60 MG CAP PO SCH (09:07)
[2024-03-14] MEDS: GABAPENTIN 300 MG CAP PO SCH (09:07)
[2024-03-14] MEDS: FOLIC ACID 1 MG TAB PO SCH (09:07)
--- NOTE | 2024-03-14 14:44 | Discharge Summary ---
Discharge Summary Date of Service March 14, 2024 Principal Dx & Hospital Course #1 = Principal Diagnosis (1) Alcohol intoxication: Patient is awake and alert on first day of her hospital stay she is not exhibiting any signs of alcohol withdrawal she says she typically does not drink regularly but went on in excess drinking just due to being depressed about her financial status and lack of mobility. She denied a dependency and alcohol did not wish for any referral for alcohol rehab. Patient felt comfortable going home will call family friends to take her. (2) Acute alteration in mental status: Likely secondary to EtOH and hypoglycemia No signs of withdrawal encourage follow-up with primary care to continue to discuss glycemic management Talk screen unremarkable with exception of high alcohol level (3) Diabetes type 1, uncontrolled: With erratic blood sugars. -Check HgbA1C this is pending at time of discharge Resume home glycemic management strategies follow-up with primary care soon as possible Notes For Next Care Provider Continue counseling for alcohol and diabetic care no new medications were started at this time Admission HPI Per Admitting Provider Gem Chiu is a 58yo female with history of DM-I, alcoholism and HLP presenting with intoxication, hypoglycemia and confusion. patient is intoxicated and unable to provide details of events prior to arrival. Patient's mother found her confused, called 911 Intoxicated, reports that she fell from her wheelchair. Reports that her blood sugars have been very erratic. Drinks daily - wine. Unable to quantify amount or when her last drink was. Denies history of withdrawals. Discharge Exam Awake and alert no tremulousness no nervousness good eye contact patient not appear to be depressed Updated Medication List Medication Instructions Recorded Confirmed Type cholecalciferol (vitamin D3) 25 1,000 units PO HS 06/23/19 03/14/24 History mcg (1,000 unit) capsule cyanocobalamin (vitamin B-12) 1,000 mcg PO DAILY 05/10/20 03/14/24 History 1,000 mcg tablet (Vitamin B-12) multivitamin 1 tab PO DAILY 12/24/21 03/14/24 History folic acid 1 mg tablet 1 mg PO DAILY 05/21/22 03/14/24 History clobetasol 0.05 % scalp solution 1 applic topical DAILY PRN flare 12/23/22 03/14/24 History fluticasone propionate 50 2 spray intranasal DAILY 03/11/23 03/14/24 History mcg/actuation nasal spray,suspension insulin glargine 100 unit/mL (3 40 unit (0.4 mL) subcut QPM #45 mL 09/08/23 03/14/24 Rx mL) subcutaneous pen (Lantus Solostar U-100 Insulin) insulin aspart U-100 100 unit/mL 50 unit (0.5 mL) subcut DAILY #45 09/09/23 03/14/24 Rx (3 mL) subcutaneous pen (Novolog mL FlexPen U-100 Insulin aspart) duloxetine 60 mg capsule,delayed 60 mg PO QAM #30 caps 09/26/23 03/14/24 Rx release (Cymbalta) flash glucose sensor (FreeStyle #7 ea 09/26/23 01/23/24 Rx Janny 2 Sensor kit) gabapentin 300 mg capsule 300 mg PO TID #90 caps 09/26/23 03/14/24 Rx dphexk-mpbextui-irphxrc 1 cap PO TID #90 caps 09/26/23 03/14/24 Rx 6,000-19,000-30,000 unit capsule,delayed rel (Creon) Hospital Stay Data Consultations 03/14/24 01:09 ED Decision to Admit Stat Diagnostic Imagining Performed 03/13/24 23:04 CT head/brain wo con Stat 03/13/24 23:08 CT cervical spine wo con Stat Pending Results Patient Have Any Pending Studies at Discharge: No Discharge Instructions Given to Patient (Per Discharging Provider) Please limit or eliminate alcohol intake, if you think you may have a problem with alcohol please contact your local Alcoholics Anonymous Total Time Total Time Spent Total Time Spent (In Minutes): Discharge 30 including counseling at the bedside Coding Level of Care Code 96210 INP/OBS DISCH >30 MIN Diagnoses Alcohol intoxication F10.920 Complication of substance-induced condition: uncomplicated Acute alteration in mental status R41.82 Diabetes type 1, uncontrolled E10.65
[2024-03-15 08:38] LABS: Estimated Average Glucose 171 mg/dl; Hemoglobin A1C 7.6 % (4.5-5.6)
== END 2024-03-14 14:22 | disposition home or self-care (01) | DRG 897 ==
LOC: ED 22:22 → SUATTDRO 03-14 02:34 → 3W 03-14 02:34

== ENCOUNTER 2024-04-04 03:55 | Inpatient (IN) ==
--- OUTSIDE RECORDS SUMMARY | 2024-04-04 04:00 | External Medical Summary | Summary of Care ---
Author Name Unknown Organization [facility] Address [address] [place] [address] Phone [phone] Care Team Providers Care Muff Winder Name Role Phone Ingrid Mejias PA-C Primary Care Provider [phone] Reason for Visit * Reason Onset Date Comments Forms Request 03/15/2024 Encounter Details Date Type Department Care Team (Late st Contact Info) Description 03/15/2024 Telephone Family Practice [facility] [place] [address] [place] [address] Ingrid Mejias PA-C [address] [place] [address] Forms Request Allergies Active Allergy Reactions Criticality Noted Date Comments Lorazepam 05/20/2016 Haloperidol Lactate 05/20/2016 documented as of this encounter (statuses as of 03/19/2024) Medications Medication Sig Dispensed Refills Start Date End Date Status Melatonin 5 MG Tablet Take 1 Capsule by mouth at bedtime. Active Cyanocobalamin 2500 MCG CHEW Take 1,000 mcg by mouth. Active Multiple Vitamins-Minerals (MULTIVITAMIN ADULT) TABS Take by mouth. Active Naproxen Sod-Diphenhydramine 220-25 MG TABS Take by mouth. Active fluticasone (FLONASE) 50 MCG/ACT nasal spray Administer 1 [place] into nostril in the morning. Active triamcinolone [...] and 1 Capsule before bedtime. Active Creon 6000-30205 UNIT Oral Capsule Delayed Release Particles Take 1 Capsule by mouth in the morning and 1 Capsule at noon and 1 Capsule before bedtime. 09/30/2023 Active NovoLOG FlexPen ReliOn 100 UNIT/ML Subcutaneous Solution Pen-injector Sliding scale based on blood sugars; prior to meals. 10/20/2023 Active Lantus SoloStar 100 UNIT/ML Subcutaneous Solution Pen-injector Inject 28 Units under the skin every evening. 01/14/2024 Active documented as of this encounter (statuses as of 03/19/2024) Active Problems Problem Noted Date Diagnosed Date History of amputation of left leg through tibia and fibula 10/20/2023 Type 2 diabetes mellitus wit h diabetic mononeuropathy, with long-term current use of insulin 10/20/2023 documented as of this encounter (statuses as of 03/19/2024) Immunizations Name Administration Dates Next Due TDAP [...] encounter Miscellaneous Notes * Telephone Encounter - Shreya Ward MED ASSIST - 03/19/2024 1:56 PM EDT We have gone through the mail, it is not here as of now. We will keep an eye out for it. * Telephone Encounter - Emily Barone OSA - 03/15/2024 12:38 PM EDT Pt mailed in an authorization for release/request of [facility] for [facility] .Please fill out & have signed . Please fax copy to [facility] office at [phone]. form will be in FP mailbox in email administrator. Thank you documented in this encounter Plan of Treatment Upcoming Encounters Date Type Department Care Team (Late st Contact Info) Description 03/31/2024 11:20 AM EDT Office Visit Family Practice [facility] [address] [facility] [place] [address] Ingrid Mejias PA-C [address] [facility] [place] [id number] 05/26/2024 10:30 AM EDT Imaging Radiology, [place] [id number] [facility] [place] [address] 12/28/2024 10:30 AM EDT Office Visit Gynecology/Obstetrics [facility] [address] [place] [id number] Sandra Kauffman CRNP [address] [place] [id number] Health Maintenance Due Date Last Done Comments DISCUSS TOBACCO CESSATION (REFER TO SMARTSET #[id number]) 1965 Pneumococcal Vaccine: Pediatrics (0 to 5 [...] filedocumented as of this encounter Care Teams Muff Winder Relationship Specialty Start Date End Date Randell January CECIL Pearson [address] [place] [address] PCP - General Physician Substation Wireman 01/14/24 documented as of this encounter
--- OUTSIDE RECORDS SUMMARY | 2024-04-04 04:00 | External Medical Summary | Summary of Care ---
Author Name Unknown Organization [facility] Address [address] [place] [address] Phone [phone] Care Team Providers Care Production Drilling Machine Operator Name Role Phone Ingrid Mejias PA-C Primary Care Provider [phone] Reason for Visit * Reason Onset Date Comments Health Maintenance 03/19/2024 Encounter Details Date Type Department Care Team (Late st Contact Info) Description 03/19/2024 Telephone Family Practice [facility] [place] [address] [facility] [place] [address] Ingrid Mejias PA-C [address] [facility] [place] [address] Health Maintenance Allergies Active Allergy Reactions Criticality Noted Date [...] (FLONASE) 50 MCG/ACT nasal spray Administer 1 Kenner into nostril in the morning. Active triamcinolone [...] and 1 Capsule before bedtime. Active Creon [id number] UNIT Oral Capsule Delayed Release Particles Take [...] encounter Miscellaneous Notes * Telephone Encounter - Mine Menard LPN - 03/19/2024 9:01 AM EDT Care Gaps Comprehensive Care Outreach Last Office/Telemedicine Visit: 10/20/2023 (in office), Visit date not found (telemedicine) Next Office Visit: 03/31/2024 Hemoglobin AIC Results: Lab Results Component Value Date/Time HEMOGLOBIN A1C - [facility] 8.5 (H) 01/14/2024 12:25 PM BP Readings from Last 1 Encounters: 01/14/24 124/68 Reviewed Health Maintenance below: Health Maintenance Topic Date Due DISCUSS TOBACCO CESSATION (REFER TO SMARTSET #3291) Never done Pneumococcal Vaccine: Pediatrics (0 to 5 Years) and At-Risk Patients (6 to 64 Years) (1 of 2 - PCV)Never done Depression Screening Never done HIV Screening Never done Albumin/Creatinine Ratio Never done Hepatitis C Screening Never done Hepatitis B (1 of 3 - 19+ 3-dose series) Never done Colorectal Cancer Screening Never done Cologuard follow Urine already ordered Care Gap Outreach Action Taken: Kanga message sent documented in this encounter Plan of Treatment Upcoming Encounters Date Type Department Care Team (Late st Contact Info) Description 03/31/2024 11:20 AM EDT Office Visit Family Practice [facility] [address] [facility] [place] [address] Ingrid Mejias PA-C [address] [facility] [place], [place] [address] 05/26/2024 10:30 AM EDT Imaging Radiology, [facility] [address] [place] [address] 12/28/2024 10:30 AM EDT Office Visit Gynecology/Obstetrics [facility] [address] [place] [address] Sandra Kauffman CRNP [address] [place] [address] Health Maintenance Due Date Last Done Comments DISCUSS TOBACCO CESSATION (REFER TO SMARTSET #3291) 1965 Pneumococcal Vaccine: Pediatrics (0 to 5 [...] filedocumented as of this encounter Care Teams Production Drilling Machine Operator Relationship Specialty Start Date End Date Ingrid Mejias PA-C [address] [facility] [place] [address] PCP - General Physician Mechanical Shop Laborer 01/14/24 documented as of this encounter
--- OUTSIDE RECORDS SUMMARY | 2024-04-04 04:00 | External Medical Summary | Summary of Care ---
Author Name Unknown Organization [facility] Address [address] [place] [address] Phone [phone] Care Team Providers Care Contract Negotiation Specialist Name Role Phone Ingrid Mejias PA-C Primary Care Provider [phone] Reason for Visit * Reason Comments Physical-Exam Encounter Details Date Type Department Care Team (Late st Contact Info) Description 03/31/2024 11:20 AM EDT Office Visit Family Practice [facility] [place] [address] [facility] [place] [address] Ingrid Mejias PA-C [address] [facility] [place] [address] Type 2 diabetes mellitus with diabetic mononeuropathy, with long-term current use of insulin ([facility])*; CARMELINA (generalized anxiety disorder); 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 Active Cyanocobalamin 2500 MCG CHEW Take 1,000 mcg by mouth. Active Multiple Vitamins-Minerals (MULTIVITAMIN ADULT) TABS Take by mouth. Active fluticasone (FLONASE) 50 MCG/ACT nasal spray Administer 1 Molino into nostril in the morning. Active triamcinolone acetonide (ARISTOCORT) 0.1 % cream apply to PSORIASIS ON BODY TWICE DAILY FOR 2 WEEKS, THEN DAILY NEEDED 0 6 Active Folic Acid 1 MG Oral Tablet Take 1 Tablet by mouth in the morning. 5 Active Creon 6000-17221 UNIT Oral Capsule Delayed Release Particles Take 1 Capsule by mouth in the morning and 1 Capsule at noon and 1 Capsule before bedtime. 3 Active NovoLOG FlexPen ReliOn 100 UNIT/ML Subcutaneous Solution Pen-injector Sliding scale based on blood sugars; prior to meals. 4 Active Lantus SoloStar 100 UNIT/ML Subcutaneous Solution Pen-injector Inject 28 Units under the skin every evening. 4 Active DULoxetine HCl 60 MG Oral Capsule Delayed Release Particles (Cymbalta) Take 1 Capsule by mouth in the morning. 4 Active Magnesium 500 MG Oral Tablet Take 1 Tablet by mouth in the morning. Active FreeStyle Janny 2 Sensor Inject 1 Units into the skin once. 4 Active PX B Complex/Vitamin C Oral Tablet Take 1 Tablet by mouth in the morning. Active DULoxetine HCl 30 MG Oral Capsule Delayed Release Particles (Cymbalta)Indicat ions:CARMELINA (generalized anxiety disorder) Take 1 Capsule by mouth in the morning. 30 Capsule 5 4 Active Gabapentin 300 MG Oral Capsule (Neurontin) 1 cap in am, 1 capt noon, 2 caps at bedtime 120 Capsule 5 4 Active Naproxen Sod-Diphenhydrami ne 220-25 MG TABS Take by mouth. 03/31/20 24 Discontinued(Med ication List Clean Up) DULoxetine HCl 30 MG Oral Capsule Delayed Release Particles (Cymbalta) Take 2 Capsules by mouth in the morning. 9 03/31/20 24 Discontinued(Med ication List Clean Up) Gabapentin 300 MG Oral Capsule (Neurontin) Take 1 Capsule by mouth in the morning and 1 Capsule at noon and 1 Capsule before bedtime. 03/31/20 24 Discontinued Melatonin 1 MG Oral Tablet Take 3 Tablets by mouth at bedtime. 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 Hunger Vital Sign Answer Date Recorded Within the past 12 months, y ou worried that your food would run out before you got the money to buy more. Never true 01/13/20 24 Within the past 12 months, t he food you bought just didn't last and you didn't have money to get more. Never true 01/13/2024 Childcare Answer Date Recorded Do you feel overwhelmed with taking care of a child, family member or friend? Yes 01/13/2024 Does your family need help f inding childcare? (Household - for ages 0-17 years) Not on file 01/13/2024 Clothing Answer Date Recorded Have you been unable to get clothing when it was really needed? No 01/13/2024 Is your family able to get c lothes or diapers when needed? (Household - for ages 0-17 years) Not on file 01/13/2024 Personal Safety Answer Date Recorded Do you feel unsafe or have concerns for your saf ety? No 01/13/2024 Do you have concerns for you r family's safety? (Household - for ages 0-17 years) Not on file 01/13/2024 Utilities Answer Date Recorded Do you have trouble paying y our heating, water, or electric bill? No 01/13/2024 Is your family able to pay t he heat, water, or electric bill? (Household - for ages 0-17 years) Not on file 01/13/2024 Does your family have access to good internet? (Household - for ages 0-17 years) Not on file 01/13/2024 Employment Status Answer Date Recorded Are you unemployed or without regular income? No 01/13/2024 Does the household have a re gular source of income? (Household - for ages 0-17 years) Not on file 01/13/2024 Social Connections Answer Date Recorded How often do you feel lonely or isolated from those around you? Sometimes 01/13/2024 Financial Resource Strain Answer Date R ecorded Do you have any trouble payi ng for your medications, or do you think you might in the future? Yes 01/13/2024 Does your family have troubl e paying for medicine? (Household - for ages 0-17 years) Not on file 01/13/2024 Transportation Needs Answer Date Record ed READ ONLY Do you have troubl e getting a ride to medical visits or work? Sometimes True 01/13/2024 Does your family have a hard time getting a ride to doctors visits? (Household - for ages 0-17 years) Not on file 01/13/2024 Has lack of transportation k ept you from medical appointments, meetings, work, or from getting things needed for daily living? Check all that apply. (Adult - for ages 18 years and over) Not on file 01/13/2024 Do you (or your family) have trouble finding or paying for a ride (transportation)? (Household - for ages 0-17 years) Not on file 01/13/2024 Housing Stability Answer Date Recorded Do you currently live in a s helter or have no steady place to sleep at night? No 01/13/2024 READ ONLY Do you think you a re at risk of becoming homeless? No 01/13/2024 Does your family worry about paying for your home or becoming homeless? (Household - for ages 0-17 years) Not on file 0 01/13/2024 Are you homeless or worried that you might be in the future? (Adult - for ages 18 years and over) Not on file Are you (or your family) maryjo eless or worried that you might be in the future? (Household - for ages 0-17 years) Not on file Food Insecurity Answer Date Recorded Do you need food for this week? No 01/13/2024 Are you able to get enough f ood for your family? (Household - for ages 0-17 years) Not on file 01/13/2024 Does your family need food t his week? (Household - for ages 0-17 years) Not on file 01/13/2024 Do you always have enough fo od for your family? (Household - for ages 0-17 years) Not on file 01/13/2024 Sex and Gender Information Value Date Recorded Sex Assigned at Female 01/13/2024 10:21 AM EDT Gender Identity Female 01/13/2024 10:21 AM EDT Sexual Orientation Straight 01/13/2024 10 :21 AM EDT Job Start Date Occupation Industry Not on file Not on file Not on file documented as of this encounter Last Filed Vital Signs Vital Sign Reading Time Taken Comments Blood Pressure 144/88 03/31/2024 11:27 AM EDT Pulse 105 03/31/2024 11:27 AM EDT Temperature 36.2 C (97.1 F) 03/31/2024 11:27 AM E DT Respiratory Rate 18 03/31/2024 11:27 AM EDT Oxygen Saturation 98% 03/31/2024 11:27 AM EDT Inhaled Oxygen Concentration - - Weight - - Height - - Body Mass Index - - documented in this encounter Progress Notes * Ingrid Mejias PA-C - 03/31/2024 11:34 AM EDT Gem Chiu is a 58 year old female who presents for an check-up. Current concerns: Insomnia Bad anxiety Problems with amputation side on left leg. Incision site can drain. Has never had prothesis refitted after getting it. Swelling has gone down and is having to put multiple layer of socks on to help hold the prothesis on . 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 ([facility]) 10/20/2023 Psoriasis Type 2 diabetes mellitus with diabetic mononeuropathy, with long-term current use of insulin ([facility]) 10/20/2023 Past Surgical History: Procedure Laterality Date EGD, FLEXIBLE, DIAGNOSTIC 01/20/2020 healed ulcer, hiatal hernia / [facility] EGD, FLEXIBLE, DIAGNOSTIC 12/28/2019 caustic esophagitis, hiatal hernia, [facility] superficial ulcer w/ active bleeding, repeat 2-3 mo / INPT [facility] SURGICAL REMOVAL, ERUPTED TOOTH AND BONE Current Outpatient Medications Medication Sig Dispense Refill Melatonin 5 MG Tablet Take 1 Capsule by mouth at bedtime. Cyanocobalamin 2500 MCG CHEW Take 1,000 mcg by mouth. Multiple Vitamins-Minerals (MULTIVITAMIN ADULT) TABS Take by mouth. fluticasone (FLONASE) 50 MCG/ACT nasal spray Administer 1 Molino into nostril in the morning. DULoxetine HCl 30 MG Oral Capsule Delayed Release Particles (Cymbalta) Take 2 Capsules by mouth in the morning. Folic Acid 1 MG Oral Tablet Take 1 Tablet by mouth in the morning. Gabapentin 300 MG Oral Capsule (Neurontin) Take 1 Capsule by mouth in the morning and 1 Capsule at noon and 1 Capsule before bedtime. Creon 6000-18580 UNIT Oral Capsule Delayed Release Particles Take 1 Capsule by mouth in the morningand 1 Capsule at noon and 1 Capsule before bedtime. NovoLOG FlexPen ReliOn 100 UNIT/ML Subcutaneous Solution Pen-injector Sliding scale based on blood sugars; prior to meals. Lantus SoloStar 100 UNIT/ML Subcutaneous Solution Pen-injector Inject 28 Units under the skin everyevening. Naproxen Sod-Diphenhydramine 220-25 MG TABS Take by mouth. (Patient not taking: Reported on 01/14/2024) triamcinolone acetonide (ARISTOCORT) 0.1 % cream apply to PSORIASIS ON BODY TWICE DAILY FOR 2 WEEKS, THEN DAILY NEEDED (Patient not taking: Reported on 01/14/2024) 0 No current facility-administered medications for this visit. Review of patient's allergies indicates: Allergen Reactions Ativan [Lorazepam] Haldol [Haloperidol Lactate] Social History Socioeconomic History Marital status: Spouse name: Not on file Number of children: Not on file Years of education: Not on file Highest education level: Not on file Occupational History Not on file Tobacco Use Smoking status: Every Day Current packs/day: 0.50 Types: Cigarettes Smokeless tobacco: Never Vaping Use Vaping status: Never Used Substance and Sexual Activity Alcohol use: No Comment: ETOH abuse in treatment currently Drug use: No Sexual activity: Yes Other Topics Concern Not on file Social History Narrative Not on file Social Determinants of Health Financial Resource Strain: High Risk (01/13/2024) Financial Resource Strain Do you have any trouble paying for your medications, or do you think you might in the future? (Adult - for ages 18 years and over): Yes Does your family have trouble paying for medicine? (Household - for ages 0-17 years): Not on file Food Insecurity: No Food Insecurity (01/13/2024) Food Insecurity Do you need food for this week? (Adult - for ages 18 years and over): No Are you able to get enough food for your family? (Household - for ages 0-17 years): Not on file Does your family need food this week? (Household - for ages 0-17 years): Not on file Do you always have enough food for your family? (Household - for ages 0-17 years): Not on file Transportation Needs: Unmet Transportation Needs (01/13/2024) Transportation Needs Do you have trouble getting a ride to medical visits or work? (Adult - for ages 18 years and over):Sometimes True Does your family have a hard time getting a ride to doctors visits? (Household - for ages 0-17 years): Not on file Has lack of transportation kept you from medical appointments, meetings, work, or from getting things needed for daily living? Check all that apply. (Adult - for ages 18 years and over): Not on file Do you (or your family) have trouble finding or paying for a ride (transportation)? (Household - for ages 0-17 years): Not on file Social Connections: Socially Integrated (01/13/2024) Social Connections How often do you feel lonely or isolated from those around you? (Adult - for ages 18 years and over): Sometimes Housing Stability: Low Risk (01/13/2024) Housing Stability Do you currently live in a chcf or have no steady place to sleep at night? (Adult - for ages 18 years and over): No Do you think you are at risk of becoming homeless? (Adult - for ages 18 years and over): No Does your family worry about paying for your home or becoming homeless? (Household - for ages 0-17 years): Not on file Are you homeless or worried that you might be in the future? (Adult - for ages 18 years and over): Not on file Are you (or your family) homeless or worried that you might be in the future? (Household - for ages0-17 years): Not on file Family History Problem Relation Name Age of Onset Breast Cancer Mother 75 Hypertension Mother Breast Cancer Sister 45 late 40s, double mastectomy Breast Cancer Sister 55 early 50s, doubole mastectomy, chemo, metastatic Review Of Systems Skin: negative Eyes: negative Ears/Nose/Throat: negative Respiratory: negative Cardiovascular: negative Gastrointestinal: negative Genitourinary: negative Musculoskeletal: Complains of pain in lower extremities. Phantom pain in left lower extremity Neurologic: numbness or tingling of feet Psychiatric: sleep disturbance and anxiety Hematologic/Lymphatic/Immunologic: negative Endocrine: diabetes Gynecologic:No LMP recorded., PHYSICAL EXAMINATION: BP 144/88 | Pulse 105 | Temp 36.2 C (97.1 F) (Tympanic) | Resp 18 | SpO2 98% General appearance - well nourished, comfortable. Skin - no rashes or lesions suspicious for malignancy. Area of abrasion incision sign on left leg amputation site. Head - without deformity, mass, or tenderness. Eyes - conjuctiva clear, EOMI, nondilated limited fundoscopic exam without obvious pathology. Neck - normal ROM, supple, without adenopathy, thyromegaly, or bruit. Back - without deformity or tenderness. Lungs - symmetric and full breath sounds without rales, rhonchi, or wheezes. Heart - normal precordial impulse, PMI nondisplaced, normal S1,S2, without murmurs, rubs, or gallops. carotid upstrokes 2/4 without bruit. Extremities - no cyanosis, clubbing, or edema. In right lower extremity. Left lower extremity is missing from just [id number]. Site of amputation shows evidence of irritation and inflammation ASSESSMENT/PLAN: (E11.41, Z79.4) Type 2 diabetes mellitus with diabetic mononeuropathy, with long-term current use of insulin ([facility]) Plan: Type 2 diabetes mellitus with diabetic mononeuropathy, with long-term current use of insulin ([facility]) (Primary) CARMELINA (generalized anxiety disorder) - DULoxetine HCl 30 MG Oral Capsule Delayed Release Particles (Cymbalta); Take 1 Capsule by mouth in the morning. 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 | For: Clinic Visit/ for 40 Continue current medications documented in this encounter Nursing Notes * Becki Gonzalez LPN - 03/31/2024 11:25 AM EDT Gem Chiu presents for annual physical exam. Medications & HM reviewed. Has some forms with her for prosthetic leg. Knew that she had to wait for records to transfer documented in this encounter Plan of Treatment Upcoming Encounters Date Type Department Care Team (Late st Contact Info) Description 05/12/2024 2:20 PM EDT Office Visit [facility] [address] [facility] [place] [address] Ingrid Mejias PA-C [address] [facility] [place] [address] 05/26/2024 10:30 AM EDT Imaging Radiology, [facility] [address] [facility] [place] [address] 12/28/2024 10:30 AM EDT Office Visit Gynecology/Obstetrics [facility] [address] [place] [address] Sandra Kauffman CRNP [address] [place] [address] Health Maintenance Due Date Last Done Comments DISCUSS TOBACCO CESSATION (REFER TO SMARTSET #[id number]) 1965 Pneumococcal Vaccine: Pediatrics (0 to 5 [...] Not on filedocumented as of this encounter Visit Diagnoses Diagnosis Type 2 diabetes mellitus with diabetic mononeuropathy, with long-term current use of insulin (HCC)- Primary CARMELINA (generalized anxiety disorder) Generalized anxiety disorder 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
[2024-04-04 04:50] LABS: Basophils # (auto) 0.08 K/uL (0.00-0.20); Basophils % (auto) 1.5 %; Eosinophils # (auto) 0.11 K/uL (0.00-0.50); Hematocrit (blood only) 43.9 % (37.0-47.0); Hemoglobin 15.4 g/dl (12.0-16.0); Immature Granulocytes # (auto) 0.01 K/uL (0.01-0.20); Immature Granulocytes % (auto) 0.2 %; Lymphocytes % (auto) 35.3 %; Mean Corpuscular Hemoglobin 30.9 pg (25.0-34.0); Mean Corpuscular Hgb Conc 35.1 g/dL (32.0-36.0); Mean Corpuscular Volume 88.2 fL (80.0-100.0); Mean Platelet Volume 9.4 fL (9.4-12.4); Monocytes # (auto) 0.55 K/uL (0.11-0.59); Monocytes % (auto) 10.2 %; Neutrophils # (auto) 2.74 K/uL (1.40-6.50); Neutrophils % (auto) 50.8 %; Platelet Count 272 K/uL (130-400); RDW Coefficient of Variation 14.4 % (11.5-14.5); RDW Standard Deviation 46.3 fL (36.4-46.3); Red Blood Count 4.98 M/uL (4.20-5.40); White Blood Count 5.39 K/ul (4.8-10.8)
[2024-04-04 04:53] LABS: Appearance Urine Clear (Clear); Bacteria Urine Automated None Seen (None Seen); Bilirubin Urine Negative (Negative); Blood Urine Negative (Negative); Cast Urine Automated 0-2 /lpf (0-2); Color Urine Yellow; Epithelial Cell Urine Auto 0-2 /hpf (0-2); Glucose Urine UA Negative (Negative); Ketones Urine Negative (Negative); Leukocyte Esterase Urine Negative (Negative); Nitrite Urine Negative (Negative); Protein Urine Trace (Negative); RBC Urine Automated 0-2 /hpf (0-2); Specific Gravity Urine 1.006 (1.000-1.030); Urobilinogen Urine Negative (Negative); WBC Urine Automated 0-5 /hpf (0-5); pH Urine 5.5 (4.5-7.5)
[2024-04-04 04:54] LABS: Acetaminophen < 3 ug/ml (10-30); Albumin Globulin Ratio 1.5 (0.9-2); Albumin Level 4.7 gm/dl (3.4-5.0); BUN Creatinine Ratio 9.4 (10-20); Bilirubin,Total 0.5 mg/dl (0.2-1.0); Calcium 9.6 mg/dl (8.6-10.3); Creatinine Clr Calc Pharmacy 89.2 ml/min; Est GFR (Non-African American) 98.4 ml/min; Globulin 3.2 gm/dl (2.5-4.0); Potassium 4.4 mmol/L (3.5-5.1); Salicylate < 3.0 mg/dl (3.0-30); Total Protein 7.9 gm/dl (6.0-8.3)
[2024-04-04 05:08] LABS: Amphetamines+Metham, Urine Neg (Neg); Barbiturates, Urine Neg (Neg); Benzodiazepine, Urine Neg (Neg); Cocaine, Urine Neg (Neg); Fentanyl, Urine Neg (Neg); MDMA (Ecstacy), Urine Neg (Neg); Marijuana, Urine Neg (Neg); Methadone, Urine Neg (Neg); Opiate, Urine Neg (Neg); Phencyclidine, Urine Neg (Neg)
[2024-04-04 05:09] LABS: Thyroid Stimulating Hormone 1.185 uIu/ml (0.300-4.500)
--- NOTE | 2024-04-04 05:32 | Emergency Department Note ---
Impression & Plan Alcohol intoxication, Feeling suicidal ED Provider Note NAME: GEM CORREA AGE: 58 SEX: F : 1965 ARRIVES VIA: Ambulance INFORMANT: Patient, ED PROVIDER(S): Tanisha Nelson MD CHIEF COMPLAINT: 302 HPI: This is a 58-year-old female presenting as 302. Patient reportedly had made some statements about SI and poor living conditions to a friend. Parent was concerned about her wellbeing and called police for 302. Please state that patient was incontinent and very intoxicated when they arrived to the home. "Tylenol, sleep aids and ibuprofen as scattered across the floor. Patient denies taking these pills. Patient currently denies any SI or HI but is significant intoxicated upon my examination. ROS: See above HPI for pertinent positives & negatives. A total of 10 systems reviewed and were otherwise negative. PHYSICAL EXAMINATION: General: resting comfortably in no acute distress Head: Normocephalic and atraumatic Eyes: Normal inspection, extraocular muscles intact Ear, nose, throat: Normal external exam Neck: Normal range of motion Respiratory: lungs clear to auscultation bilaterally Cardiovascular: Regular rate/rhythm, no murmur GI: soft, nontender, no guarding or rebound Extremities: nontender, moves all extremities Neuro: The patient awake and alert, appropriately conversive, no focal deficits, symmetric faces Skin: Warm, dry, and intact MEDICAL DECISION MAKING: This is a 58-year-old female senting as 302. Patient currently appears intoxicated. Will do screening psychiatric workup to rule out coingestions. Patient denies any current SI or ingestions. Patient does mention drinking alcohol but will not tell me how much. -Lab work largely unremarkable aside from elevated glucose. Patient's UDS currently negative, negative salicylates and Tylenol. Patient does have an alcohol that is significant elevated at 451.3. Patient required mission pending sobriety for through conversation. Differential diagnosis: Alcohol intoxication, Tylenol overdose, suicide ideation Past Med/Surg History Problem List (Updated 04/04/24 @ 05:48 by Tanisha Nelson MD) Feeling suicidal (Acute) Alcohol intoxication (Acute) Hypoglycemia (Acute) Syncope (Acute) Alcohol intoxication (Acute) Acute alteration in mental status (Acute) Alcohol use disorder Vitamin D deficiency (Acute) Psoriasis (Acute) IPMN (intraductal papillary mucinous neoplasm) Imaging July 2020 follow-up yearly Encephalomalacia (Acute) History of GI bleed Diabetic peripheral neuropathy associated with type 1 diabetes mellitus Liver cirrhosis (Acute) Exocrine pancreatic insufficiency Insomnia Dysesthesia Diabetes type 1, uncontrolled (Acute) Dyslipidemia Alcohol abuse (Acute) Below knee amputation Medical History Oral thrush Thrombocytopenia Tobacco dependence Depression with anxiety Unable to establish with psychiatrist Hydrosalpinx PT UNAWARE SBO (small bowel obstruction) Resolved Lipoma NECK Polycystic ovarian syndrome Surgical History History of left below knee amputation Amputation of left lower extremity TO APPROX MID CALF History of ankle surgery 02/2019 left ankle ex fix, grade 2 view with MAC 3 and 7.0 ETT History of tooth extraction Family History Uncle Diabetes Mother Breast cancer Sister Breast cancer Father Prostate cancer Other Family history of breast cancer in mother Family history of breast cancer in sister Denies family history of Ovarian cancer Myocardial infarction Colorectal cancer Social History Smoking Status: Current every day smoker Tobacco Type: Cigarettes packs per day: 0.75; Cigarettes Per Day: 10; Second Hand Exposure: Yes; Do You Dip or Chew Tobacco: No; Hx Alcohol Use: Yes Alcohol type: wine Hx Substance Use: No Preferred Language: Lebanese Communication Ability: Effective Visual Impairment: No Limitations [place] Required: No Beliefs That Will Affect Care: None marital status: marital status details: no children Current Living Situation: Alone Current Living Situation Comment: unknown current occupational status: disabled Feels Safe at Home: No Is there a partner from a previous relationship who is making you feel unsafe now?: No Assistive Devices: Prosthesis, Walker and Wheelchair Allergies Allergies Allergy/AdvReac Type Severity Reaction Status Date / Time haloperidol [From Haldol] AdvReac Unknown Unknown Verified 03/14/24 01:35 Home Meds Home Medications Medication Instructions Recorded Confirmed cyanocobalamin (vitamin B-12) 1,000 mcg PO DAILY 05/10/20 04/04/24 1,000 mcg tablet (Vitamin B-12) multivitamin 1 tab PO DAILY 12/24/21 04/04/24 folic acid 1 mg tablet 1 mg PO DAILY 05/21/22 04/04/24 fluticasone propionate 50 1 spray intranasal DAILY 03/11/23 04/04/24 mcg/actuation nasal spray,suspension duloxetine 30 mg capsule,delayed 30 mg PO QAM 04/04/24 04/04/24 release flash glucose sensor (FreeStyle 04/04/24 04/04/24 Janny 2 Sensor kit) gabapentin 300 mg capsule See Rx Instructions .Route .COMPLEX 04/04/24 04/04/24 insulin aspart U-100 100 unit/mL See Rx Instructions .Route .COMPLEX 04/04/24 04/04/24 (3 mL) subcutaneous pen (Novolog FlexPen U-100 Insulin aspart) insulin glargine 100 unit/mL (3 28 unit subcut QPM 04/04/24 04/04/24 mL) subcutaneous pen (Lantus Solostar U-100 Insulin) magnesium 500 mg tablet 500 mg PO DAILY 04/04/24 04/04/24 melatonin 5 mg tablet 5 mg PO HS PRN Sleep 04/04/24 04/04/24 triamcinolone acetonide 0.1 % 1 applic topical DAILY PRN 04/04/24 04/04/24 topical cream psoriasis Previous Rx's Medication Instructions Recorded duloxetine 60 mg capsule,delayed 60 mg PO QAM #30 caps 09/26/23 release (Cymbalta) idsvmi-[id number]-antzryi 1 cap PO TID #90 caps 09/26/23 6,000-19,000-30,000 unit capsule,delayed rel (Creon) Results & Data (ED) Vital Signs Vital Signs - 24 hr 04/04/24 04:08 Temperature 36.5 C Temperature Source Oral Pulse Rate 78 Respiratory Rate 16 Respiratory Effort / Characteristics Non-Labored Spontaneous Respiratory Depth Normal Respiratory Pattern Regular Blood Pressure 165/96 H Blood Pressure Mean 119 Pulse Oximetry 92 Oxygen Delivery Method Room Air Sepsis Recent Fever Within 48 Hours No Sepsis New/Unexplained Change in Mental Status No Sepsis Action Taken by Nursing No Action Required Laboratory Data 04/04/24 04:21 04/04/24 04:21 Lab Results 04/04/24 04/04/24 04/04/24 Range/Units 04:19 04:21 04:36 WBC 5.39 (4.8-10.8) K/ul RBC 4.98 (4.20-5.40) M/uL Hgb 15.4 (12.0-16.0) g/dl Hct 43.9 (37.0-47.0) % MCV 88.2 (80.0-100.0) fL MCH 30.9 (25.0-34.0) pg MCHC 35.1 (32.0-36.0) g/dL RDW Std Deviation 46.3 (36.4-46.3) fL RDW Coeff of Ethel 14.4 (11.5-14.5) % Plt Count 272 (130-400) K/uL MPV 9.4 (9.4-12.4) fL Immature Gran % (Auto) 0.2 % Neut % (Auto) 50.8 % Lymph % (Auto) 35.3 % [place] % (Auto) 10.2 % Eos % (Auto) 2.0 % Baso % (Auto) 1.5 % Neut # (Auto) 2.74 (1.40-6.50) K/uL Lymph # (Auto) 1.90 (1.20-3.40) K/uL [place] # (Auto) 0.55 (0.11-0.59) K/uL Eos # (Auto) 0.11 (0.00-0.50) K/uL Baso # (Auto) 0.08 (0.00-0.20) K/uL Immature Gran # (Auto) 0.01 (0.01-0.20) K/uL Sodium 139 (136-145) mmol/L Potassium 4.4 (3.5-5.1) mmol/L Chloride 96 L (98-107) mmol/L Carbon Dioxide 28 (21-32) mmol/L Anion Gap 15 H (3-11) BUN 6 (6-23) mg/dl Creatinine 0.64 (0.6-1.2) mg/dl Est Cr Clr Drug Dosing 89.2 ml/min Est GFR ( Amer) 114.0 ml/min Est GFR (Non-Af Amer) 98.4 ml/min BUN/Creatinine Ratio 9.4 L (10-20) Glucose 265 H (70-99(Fasting)) mg/dl Calcium 9.6 (8.6-10.3) mg/dl Total Bilirubin 0.5 (0.2-1.0) mg/dl AST 29 (13-39) U/L ALT 24 (7-52) U/L Alkaline Phosphatase 114 H (34-104) U/L Total Protein 7.9 (6.0-8.3) gm/dl Albumin 4.7 (3.4-5.0) gm/dl Globulin 3.2 (2.5-4.0) gm/dl Albumin/Globulin Ratio 1.5 (0.9-2) TSH 1.185 (0.300-4.500) uIu/ml Urine Color Yellow Urine Appearance Clear (Clear) Urine pH 5.5 (4.5-7.5) Ur Specific [place] 1.006 (1.000-1.030) Urine Protein Trace H (Negative) Urine Glucose (UA) Negative (Negative) Urine Ketones Negative (Negative) Urine Blood Negative (Negative) Urine Nitrite Negative (Negative) Urine Bilirubin Negative (Negative) Urine Urobilinogen Negative (Negative) Ur Leukocyte Esterase Negative (Negative) Urine WBC (Auto) 0-5 (0-5) /hpf Urine RBC (Auto) 0-2 (0-2) /hpf U Hyaline Cast (Auto) 0-2 (0-2) /lpf U Epithel Cells (Auto) 0-2 (0-2) /hpf Urine Bacteria (Auto) None Seen (None Seen) POC Ur Test NEG (NEG) Salicylates < 3.0 L (3.0-30) mg/dl Urine Opiates Screen Neg (Neg) Ur Methadone, Qual Neg (Neg) Urine Fentanyl Screen Neg (Neg) Acetaminophen < 3 L (10-30) ug/ml Urine Barbiturates Neg (Neg) Ur Phencyclidine (PCP) Neg (Neg) U Amphetamin/Meth Scrn Neg (Neg) MDMA (Ecstasy) Screen Neg (Neg) U Benzodiazepines Scrn Neg (Neg) Ur Cocaine Metabolite Neg (Neg) U Marijuana (THC) Screen Neg (Neg) Ethyl Alcohol mg/dL 451.3 H (<10.0) mg/dl SARS-CoV-2, RNA, NAAT NEGATIVE (NEGATIVE) Discharge Plan Visit Data Chief Complaint: Mental Health Evaluation Stated Complaint: 302 ED Provider: Tanisha Nelson Discharge Problem: Alcohol intoxication, Feeling suicidal Forms Stand Alone Forms: [facility], Suicide Prevention Resources Prescriptions Prescriptions: No Action duloxetine [Cymbalta] 60 mg capsule,delayed release(DR/EC) 60 mg PO QAM Qty: 30 5RF Creon 6,000-19,000 -30,000 unit capsule,delayed release(DR/EC) 1 cap PO TID Qty: 90 5RF multivitamin Tablet 1 tab PO DAILY cyanocobalamin (vitamin B-12) [Vitamin B-12] 1,000 mcg tablet 1,000 mcg PO DAILY folic acid 1 mg Tablet 1 mg PO DAILY fluticasone propionate 50 mcg/actuation [place],Suspension 1 spray INTRANASAL DAILY Rx Instructions: administer into each nostril gabapentin 300 mg capsule See Rx Instructions .ROUTE .COMPLEX Rx Instructions: 1 cap in AM, 1 cap at 1200, 2 caps at HS insulin aspart U-100 [Novolog FlexPen U-100 Insulin] 100 unit/mL (3 mL) insulin pen See Rx Instructions .ROUTE .COMPLEX Rx Instructions: sliding scale based on blood sugars; prior to meals insulin glargine [Lantus Solostar U-100 Insulin] 100 unit/mL (3 mL) insulin pen 28 unit subcut QPM (DME) FreeStyle Janny 2 Sensor Kit MISCELLANEOUS magnesium 500 mg Tablet 500 mg PO DAILY triamcinolone acetonide 0.1 % Cream 1 applic TOPICAL DAILY PRN (Reason: psoriasis) duloxetine 30 mg Capsule,Delayed Release(Dr/Ec) 30 mg PO QAM melatonin 5 mg Tablet 5 mg PO HS PRN (Reason: Sleep) Referrals Referrals: Ingrid Mejias PA-C [Primary Care Provider] -
[2024-04-04] MEDS ORDERED: LORazepam 1 MG in SYRINGE 0.5 ML IV PRN (06:24)
[2024-04-04] MEDS ORDERED: TRIAMCINOLONE ACET 0.1% CR 15 GM TUBE TOP PRN (06:24)
[2024-04-04] MEDS ORDERED: NITROGLYCERIN SL 0.4 MG/TAB TAB SL PRN (06:24)
[2024-04-04] MEDS ORDERED: Ativan IV Alcohol Withdrawal--Active Protocol IV PRN (06:24)
[2024-04-04] MEDS ORDERED: LORazepam 3 MG in SYRINGE 1.5 ML IV PRN (06:24)
[2024-04-04] MEDS ORDERED: CARBOHYDRATES FOR HYPOGLYCEMIA PO PRN (06:24)
[2024-04-04] MEDS ORDERED: GLUCOSE 10 TAB/TUBE PO PRN (06:24)
[2024-04-04] MEDS ORDERED: GLUCAGON FOR INJ 1 MG VIAL SQ PRN (06:24)
[2024-04-04] MEDS ORDERED: LORazepam 2 MG in SYRINGE 1 ML IV PRN (06:24)
[2024-04-04] MEDS ORDERED: DEXTROSE 50% 50 ML SYRINGE IV PRN (06:24)
[2024-04-04] MEDS ORDERED: GLUCOSE 40% GEL 15 GM TUBE PO PRN (06:24)
--- NOTE | 2024-04-04 06:26 | History & Physical Report ---
Date of Service April 04, 2024 Assessment & Plan (1) Feeling suicidal: Plan: 58-year-old female with past medical history significant for type 2 diabetes, history of amputation of her left leg through tibia and fibula, medical marijuana use, ongoing alcoholism and tobacco abuse was brought in as 302. As per ER patient reportedly made some statements about suicidal ideation and poor living conditions to a friend. Friend was concerned for wellbeing and called police for 302. Seems patient was incontinent and very intoxicated when police arrived at home. Tylenol/sleep aids and ibuprofen were scattered across the floor. Patient is currently somewhat drowsy. But able to tell her name. Knows she is in the hospital. Could tell the month. States she drinks 2 cups of wine 3 times a week. Smokes less than a pack a day. Smokes marijuana 2 times a day. Denies any other drug use. States she fell. States still has thoughts of hurting herself. Denies headache. Denies chest pain. Denies shortness of breath, denies nausea. Denies abdominal pain. Patient is afebrile. Hemodynamics are okay. suicidal ideation came as 302 suicidal precautions one-on-one psychiatry consult alcoholism alcohol level 451 drowsy urine drug screen negative. Tylenol level less than 3. Salicylate level less than 3. Banana bag. IV thiamine and IV folic acid. Alcohol withdrawal protocol with IV Ativan as needed and close monitor for withdrawal continue home gabapentin type 2 diabetes continue home Lantus sliding scale Will monitor depression on duloxetine DVT prophylaxis Lovenox disposition med/telemetry full code History of Present Illness Chief Complaint: suicidal ideation and alcoholism. Primary Care Provider: Ingrid Mejias PA-C 58-year-old female with past medical history significant for type 2 diabetes, history of amputation of her left leg through tibia and fibula, medical marijuana use, ongoing alcoholism and tobacco abuse was brought in as 302. As per ER patient reportedly made some statements about suicidal ideation and poor living conditions to a friend. Friend was concerned for wellbeing and called police for 302. Seems patient was incontinent and very intoxicated when police arrived at home. Tylenol/sleep aids and ibuprofen were scattered across the floor. Patient is currently somewhat drowsy. But able to tell her name. Knows she is in the hospital. Could tell the month. States she drinks 2 cups of wine 3 times a week. Smokes less than a pack a day. Smokes marijuana 2 times a day. Denies any other drug use. States she fell. States still has thoughts of hurting herself. Denies headache. Denies chest pain. Denies shortness of breath, denies nausea. Denies abdominal pain. Patient is afebrile. Hemodynamics are okay. Past medical history. As mentioned above Past surgical history EGD. Surgical removal of a ruptured tooth. Social history. smokes half pack a day. Drinks alcohol 2 glasses of wine 3 times a week as per patient. Smokes medical marijuana 2 times Daily. Family history. Mother had breast cancer, Hypertension. Sister had breast cancer. Allergies Allergy/AdvReac Type Severity Reaction Status Date / Time haloperidol [From Haldol] AdvReac Unknown Unknown Verified 03/14/24 01:35 Home Medications Medication Instructions Recorded Confirmed Type cyanocobalamin (vitamin B-12) 1,000 mcg PO DAILY 05/10/20 04/04/24 History 1,000 mcg tablet (Vitamin B-12) multivitamin 1 tab PO DAILY 12/24/21 04/04/24 History folic acid 1 mg tablet 1 mg PO DAILY 05/21/22 04/04/24 History fluticasone propionate 50 1 spray intranasal DAILY 03/11/23 04/04/24 History mcg/actuation nasal spray,suspension duloxetine 60 mg capsule,delayed 60 mg PO QAM #30 caps 09/26/23 04/04/24 Rx release (Cymbalta) cxjqzy-[id number]-jtyxicz 1 cap PO TID #90 caps 09/26/23 04/04/24 Rx 6,000-19,000-30,000 unit capsule,delayed rel (Creon) duloxetine 30 mg capsule,delayed 30 mg PO QAM 04/04/24 04/04/24 History release flash glucose sensor (FreeStyle 04/04/24 04/04/24 History Janny 2 Sensor kit) gabapentin 300 mg capsule See Rx Instructions .Route .COMPLEX 04/04/24 04/04/24 History insulin aspart U-100 100 unit/mL See Rx Instructions .Route .COMPLEX 04/04/24 04/04/24 History (3 mL) subcutaneous pen (Novolog FlexPen U-100 Insulin aspart) insulin glargine 100 unit/mL (3 28 unit subcut QPM 06/30/24 06/30/24 History mL) subcutaneous pen (Lantus Solostar U-100 Insulin) magnesium 500 mg tablet 500 mg PO DAILY 04/04/24 04/04/24 History melatonin 5 mg tablet 5 mg PO HS PRN Sleep 04/04/24 04/04/24 History triamcinolone acetonide 0.1 % 1 applic topical DAILY PRN 04/04/24 04/04/24 His tory topical cream psoriasis Past Med/Surg History Problem List (Updated 04/04/24 @ 05:48 by Tanisha Nelson MD) Feeling suicidal (Acute) Alcohol intoxication (Acute) Hypoglycemia (Acute) Syncope (Acute) Alcohol intoxication (Acute) Acute alteration in mental status (Acute) Alcohol use disorder Vitamin D deficiency (Acute) Psoriasis (Acute) IPMN (intraductal papillary mucinous neoplasm) Imaging July 2020 follow-up yearly Encephalomalacia (Acute) History of GI bleed Diabetic peripheral neuropathy associated with type 1 diabetes mellitus Liver cirrhosis (Acute) Exocrine pancreatic insufficiency Insomnia Dysesthesia Diabetes type 1, uncontrolled (Acute) Dyslipidemia Alcohol abuse (Acute) Below knee amputation Medical History Oral thrush Thrombocytopenia Tobacco dependence Depression with anxiety Unable to establish with psychiatrist Hydrosalpinx PT UNAWARE SBO (small bowel obstruction) Resolved Lipoma NECK Polycystic ovarian syndrome Surgical History History of left below knee amputation Amputation of left lower extremity TO APPROX MID CALF History of ankle surgery 02/2019 left ankle ex fix, grade 2 view with MAC 3 and 7.0 ETT History of tooth extraction Family History Uncle Diabetes Mother Breast cancer Sister Breast cancer Father Prostate cancer Other Family history of breast cancer in mother Family history of breast cancer in sister Denies family history of Ovarian cancer Myocardial infarction Colorectal cancer Social History Smoking Status: Current every day smoker Tobacco Type: Cigarettes packs per day: 0.75; Cigarettes Per Day: 10; Second Hand Exposure: Yes; Do You Dip or Chew Tobacco: No; Hx Alcohol Use: Yes Alcohol type: wine Hx Substance Use: No Preferred Language: Ukrainian Communication Ability: Effective Visual Impairment: No Limitations Medical Administrative Required: No Beliefs That Will Affect Care: None marital status: marital status details: no children Current Living Situation: Alone Current Living Situation Comment: unknown current occupational status: disabled Feels Safe at Home: No Is there a partner from a previous relationship who is making you feel unsafe now?: No Assistive Devices: Wheelchair Review of Systems Review of Systems: Unobtainable due to reduced consciousness Physical Exam Physical Exam: General- Drowsy Head- atraumatic Eyes- EOMI Neck- supple, no JVD. Lungs- clear to auscultation no wheezing or crackles. Heart- regular rhythm; no murmur, no gallop. Abdomen- normal bowel sounds, soft, nontender, no distension Extremities- no pretibial edema, no erythema seen Neuro- Drowsy; EOMI; no facial palsy; no dysarthria; obeys simple commands, moves extremities. Results & Data Results & Data Vital Signs (Past 12 Hours) Vital Signs Temp Pulse Resp BP Pulse Ox O2 Del Method 04/04/24 04:08 36.5 C 78 16 165/96 H 92 Room Air Diagnostic Findings Laboratory Results WBC 5.39 K/ul (4.8-10.8) 04/04/24 04:21 RBC 4.98 M/uL (4.20-5.40) 04/04/24 04:21 Hgb 15.4 g/dl (12.0-16.0) 04/04/24 04:21 Hct 43.9 % (37.0-47.0) 04/04/24 04:21 MCV 88.2 fL (80.0-100.0) 04/04/24 04:21 MCH 30.9 pg (25.0-34.0) 04/04/24 04:21 MCHC 35.1 g/dL (32.0-36.0) 04/04/24 04:21 RDW Std Deviation 46.3 fL (36.4-46.3) 04/04/24 04:21 RDW Coeff of Ethel 14.4 % (11.5-14.5) 04/04/24 04:21 Plt Count 272 K/uL (130-400) 04/04/24 04:21 MPV 9.4 fL (9.4-12.4) 04/04/24 04:21 Immature Gran % (Auto) 0.2 % 04/04/24 04:21 Neut % (Auto) 50.8 % 04/04/24 04:21 Lymph % (Auto) 35.3 % 04/04/24 04:21 [place] % (Auto) 10.2 % 04/04/24 04:21 Eos % (Auto) 2.0 % 04/04/24 04:21 Baso % (Auto) 1.5 % 04/04/24 04:21 Neut # (Auto) 2.74 K/uL (1.40-6.50) 04/04/24 04:21 Lymph # (Auto) 1.90 K/uL (1.20-3.40) 04/04/24 04:21 [place] # (Auto) 0.55 K/uL (0.11-0.59) 04/04/24 04:21 Eos # (Auto) 0.11 K/uL (0.00-0.50) 04/04/24 04:21 Baso # (Auto) 0.08 K/uL (0.00-0.20) 04/04/24 04:21 Immature Gran # (Auto) 0.01 K/uL (0.01-0.20) 04/04/24 04:21 Sodium 139 mmol/L (136-145) 04/04/24 04:21 Potassium 4.4 mmol/L (3.5-5.1) 04/04/24 04:21 Chloride 96 mmol/L (98-107) L 04/04/24 04:21 Carbon Dioxide 28 mmol/L (21-32) 04/04/24 04:21 Anion Gap 15 (3-11) H 04/04/24 04:21 BUN 6 mg/dl (6-23) 04/04/24 04:21 Creatinine 0.64 mg/dl (0.6-1.2) 04/04/24 04:21 Est Cr Clr Drug Dosing 89.2 ml/min 04/04/24 04:21 Est GFR ( Amer) 114.0 ml/min 04/04/24 04:21 Est GFR (Non-Af Amer) 98.4 ml/min 04/04/24 04:21 BUN/Creatinine Ratio 9.4 (10-20) L 04/04/24 04:21 Glucose 265 mg/dl (70-99(Fasting)) H 04/04/24 04:21 Calcium 9.6 mg/dl (8.6-10.3) 04/04/24 04:21 Total Bilirubin 0.5 mg/dl (0.2-1.0) 04/04/24 04:21 AST 29 U/L (13-39) 04/04/24 04:21 ALT 24 U/L (7-52) 04/04/24 04:21 Alkaline Phosphatase 114 U/L (34-104) H 04/04/24 04:21 Total Protein 7.9 gm/dl (6.0-8.3) 04/04/24 04:21 Albumin 4.7 gm/dl (3.4-5.0) 04/04/24 04:21 Globulin 3.2 gm/dl (2.5-4.0) 04/04/24 04:21 Albumin/Globulin Ratio 1.5 (0.9-2) 04/04/24 04:21 TSH 1.185 uIu/ml (0.300-4.500) 04/04/24 04:21 Urine Color Yellow 04/04/24 04:36 Urine Appearance Clear (Clear) 04/04/24 04:36 Urine pH 5.5 (4.5-7.5) 04/04/24 04:36 Ur Specific [place] 1.006 (1.000-1.030) 04/04/24 04:36 Urine Protein Trace (Negative) H 04/04/24 04:36 Urine Glucose (UA) Negative (Negative) 04/04/24 04:36 Urine Ketones Negative (Negative) 04/04/24 04:36 Urine Blood Negative (Negative) 04/04/24 04:36 Urine Nitrite Negative (Negative) 04/04/24 04:36 Urine Bilirubin Negative (Negative) 04/04/24 04:36 Urine Urobilinogen Negative (Negative) 04/04/24 04:36 Ur Leukocyte Esterase Negative (Negative) 04/04/24 04:36 Urine WBC (Auto) 0-5 /hpf (0-5) 04/04/24 04:36 Urine RBC (Auto) 0-2 /hpf (0-2) 04/04/24 04:36 U Hyaline Cast (Auto) 0-2 /lpf (0-2) 04/04/24 04:36 U Epithel Cells (Auto) 0-2 /hpf (0-2) 04/04/24 04:36 Urine Bacteria (Auto) None Seen (None Seen) 04/04/24 04:36 POC Ur Test NEG (NEG) 04/04/24 04:36 Salicylates < 3.0 mg/dl (3.0-30) L 04/04/24 04:21 Urine Opiates Screen Neg (Neg) 04/04/24 04:36 Ur Methadone, Qual Neg (Neg) 04/04/24 04:36 Urine Fentanyl Screen Neg (Neg) 04/04/24 04:36 Acetaminophen < 3 ug/ml (10-30) L 04/04/24 04:21 Urine Barbiturates Neg (Neg) 04/04/24 04:36 Ur Phencyclidine (PCP) Neg (Neg) 04/04/24 04:36 U Amphetamin/Meth Scrn Neg (Neg) 04/04/24 04:36 MDMA (Ecstasy) Screen Neg (Neg) 04/04/24 04:36 U Benzodiazepines Scrn Neg (Neg) 04/04/24 04:36 Ur Cocaine Metabolite Neg (Neg) 04/04/24 04:36 U Marijuana (THC) Screen Neg (Neg) 04/04/24 04:36 Ethyl Alcohol mg/dL 451.3 mg/dl (<10.0) H 04/04/24 04:21 SARS-CoV-2, RNA, NAAT NEGATIVE (NEGATIVE) 04/04/24 04:19 Code Status & VTE Plan VTE Prophylaxis Plan VTE Prophylaxis will be ordered: Yes
[2024-04-04] MEDS ORDERED: MELATONIN 3 MG TAB PO PRN (06:46)
[2024-04-04] MEDS: MULTI-VITAMIN INFUSION 10 ML, THIAMINE HCL 100 MG, FOLIC ACID 1 MG in SODIUM CHLORIDE 0... IV ONE (07:11)
[2024-04-04 07:17] LABS: BUN Creatinine Ratio 9.8 (10-20); Calcium 9.3 mg/dl (8.6-10.3); Creatinine Clr Calc Pharmacy 93.6 ml/min; Est GFR (African American) 115.8 ml/min; Est GFR (Non-African American) 99.9 ml/min; Magnesium 2.1 mg/dl (1.7-2.4); Potassium 4.4 mmol/L (3.5-5.1)
[2024-04-04] MEDS: INSULIN ASPART PER UNIT CHARGE SC SCH (07:31)
[2024-04-04 07:39] LABS: Basophils # (auto) 0.09 K/uL (0.00-0.20); Basophils % (auto) 1.9 %; Eosinophils # (auto) 0.11 K/uL (0.00-0.50); Eosinophils % (auto) 2.3 %; Hematocrit (blood only) 41.4 % (37.0-47.0); Hemoglobin 14.5 g/dl (12.0-16.0); Immature Granulocytes # (auto) 0.02 K/uL (0.01-0.20); Immature Granulocytes % (auto) 0.4 %; Lymphocytes # (auto) 1.89 K/uL (1.20-3.40); Lymphocytes % (auto) 39.5 %; Mean Corpuscular Hemoglobin 30.9 pg (25.0-34.0); Mean Corpuscular Volume 88.3 fL (80.0-100.0); Mean Platelet Volume 9.3 fL (9.4-12.4); Monocytes # (auto) 0.42 K/uL (0.11-0.59); Monocytes % (auto) 8.8 %; Neutrophils # (auto) 2.25 K/uL (1.40-6.50); Neutrophils % (auto) 47.1 %; Platelet Count 248 K/uL (130-400); RDW Coefficient of Variation 14.3 % (11.5-14.5); RDW Standard Deviation 45.9 fL (36.4-46.3); Red Blood Count 4.69 M/uL (4.20-5.40); White Blood Count 4.78 K/ul (4.8-10.8)
[2024-04-04] MEDS ORDERED: NON-FORMULARY MEDICATION (Magnesium 500 mg Tablet) PO SCH (09:00)
[2024-04-04] MEDS ORDERED: HEPARIN SOD 5,000 UNIT/0.5 ML VIAL SQ SCH (09:00)
[2024-04-04] MEDS ORDERED: FOLIC ACID 1 MG TAB PO SCH (09:00)
--- NOTE | 2024-04-04 09:22 | Hospitalist Progress Note ---
Date of Service April 04, 2024 Assessment & Plan (1) Feeling suicidal: Plan: Pt is a 58-year-old female with past medical history significant for type 2 diabetes, history of amputation of her left leg through tibia and fibula, medical marijuana use, ongoing alcoholism and tobacco abuse was brought in as 302. As per ER patient reportedly made some statements about suicidal ideation and poor living conditions to a friend. Friend was concerned for wellbeing and called police for 302. Appears patient was incontinent and very intoxicated when police arrived at home. Tylenol/sleep aids and ibuprofen were scattered across the floor. Suicidal Ideation MDD Was admitted under a 302 Suicidal precautions One-to-one Continue home psych meds Psychiatry consulted, appreciate recs Alcohol Abuse Alcohol level 451 Drowsy on admission Urine drug screen negative. Tylenol level less than 3. Salicylate level less than 3. IV Banana bag IV thiamine and IV folic acid Alcohol withdrawal protocol with IV Ativan as needed and closely monitor for withdrawal Continue home gabapentin Type 2 diabetes Continue home Lantus ISS Diet: HH/safe tray DVT prophylaxis: Lovenox disposition: discharge to inpt psychiatry once medically stable Admission and Anticipated Discharge Date Admission Date: April 04, 2024 Subjective pt was seen while down in A6. States she made the comments about taking her life on the fly, "was talking out of my butt" Complaints of generalized chronic pain Review of Systems Review of Systems: All systems reviewed & are unremarkable except as noted in Subjective Physical Exam Physical Exam: General: Alert, oriented. No acute distress Skin: No noted rashes or bruises Psych: subdued mood and affect HEENT: NC/AT CV: RRR Resp: Breath sounds clear bilaterally, no increased effort of breathing. Abdomen: Soft, nontender, nondistended Extremities: Noted amputation of the left leg Results & Data Results & Data Vital Signs (Past 12 Hours) Vital Signs Temp Pulse Pulse Resp BP BP Pulse Ox 04/04/24 06:57 04/04/24 06:39 04/04/24 06:38 82 04/04/24 06:24 82 16 152/82 H 95 04/04/24 06:23 95 H 16 166/82 H 94 04/04/24 04:08 36.5 C 78 16 165/96 H 92 Pulse Ox O2 Del Method O2 Del Method O2 Flow Rate 04/04/24 06:57 86 L Room Air 06/30/24 06:39 93 Room Air 04/04/24 06:38 04/04/24 06:24 Nasal Cannula 2 04/04/24 06:23 Room Air 04/04/24 04:08 Room Air
[2024-04-04] MEDS: ONDANSETRON INJ 2 MG/ML 2 ML VIAL IV PRN (09:39)
[2024-04-04] MEDS: ONDANSETRON INJ 2 MG/ML 2 ML VIAL ONE (09:39)
[2024-04-04] MEDS: COUGH DROP (SUGAR FREE) LOZ 24 LOZ/1 BOX BUCCAL PRN (09:45)
[2024-04-04] MEDS: ENOXAPARIN INJ 40 MG/0.4 ML SYR SQ SCH (10:05)
[2024-04-04] MEDS: FOLIC ACID 1 MG in SYRINGE 9.8 ML IV SCH (10:05)
[2024-04-04] MEDS: THIAMINE HCL 100 MG in SYRINGE 9 ML IV SCH (10:05)
[2024-04-04] MEDS: PANCREAZE (LIPASE 16,800U) CAP PO SCH (10:06)
[2024-04-04] MEDS: GABAPENTIN 300 MG CAP PO SCH ×2 (10:06→20:20)
[2024-04-04] MEDS: DULoxetine HCL 60 MG CAP PO SCH (10:06)
[2024-04-04] MEDS: CYANOCOBALAMIN (B-12) 500 MCG TABLET PO SCH (10:07)
[2024-04-04] MEDS: MULTIVITAMIN TAB PO SCH (10:07)
[2024-04-04] MEDS: COUGH DROP (SUGAR FREE) LOZ 24 LOZ/1 BOX BUCCAL ONE (10:08)
[2024-04-04] MEDS: SODIUM CHLORIDE 0.9% 1,000 ML IV SCH (10:22)
[2024-04-04] MEDS: PROMETHAZINE HCL 6.25 MG in SODIUM CHLORIDE 0.9% 50 ML IV PRN (15:25)
[2024-04-04] MEDS: LANTUS PER UNIT CHARGE SC SCH (20:20)
[2024-04-04] MEDS: ACETAMINOPHEN 325 MG TAB PO PRN (21:51)
[2024-04-05 06:57] LABS: Basophils # (auto) 0.04 K/uL (0.00-0.20); Eosinophils % (auto) 2.6 %; Hematocrit (blood only) 38.5 % (37.0-47.0); Hemoglobin 13.3 g/dl (12.0-16.0); Immature Granulocytes # (auto) 0.03 K/uL (0.01-0.20); Immature Granulocytes % (auto) 0.8 %; Lymphocytes % (auto) 33.7 %; Mean Corpuscular Hemoglobin 30.9 pg (25.0-34.0); Mean Corpuscular Hgb Conc 34.5 g/dL (32.0-36.0); Mean Corpuscular Volume 89.5 fL (80.0-100.0); Mean Platelet Volume 9.4 fL (9.4-12.4); Monocytes # (auto) 0.57 K/uL (0.11-0.59); Monocytes % (auto) 14.8 %; Neutrophils # (auto) 1.82 K/uL (1.40-6.50); Neutrophils % (auto) 47.1 %; Platelet Count 190 K/uL (130-400); RDW Coefficient of Variation 14.3 % (11.5-14.5); RDW Standard Deviation 46.9 fL (36.4-46.3); White Blood Count 3.86 K/ul (4.8-10.8)
[2024-04-05 11:01] LABS: Albumin Globulin Ratio 1.5 (0.9-2); Albumin Level 4.2 gm/dl (3.4-5.0); BUN Creatinine Ratio 10.8 (10-20); Bilirubin,Total 1.5 mg/dl (0.2-1.0); Calcium 9.5 mg/dl (8.6-10.3); Creatinine Clr Calc Pharmacy 88.3 ml/min; Est GFR (African American) 113.4 ml/min; Est GFR (Non-African American) 97.9 ml/min; Globulin 2.8 gm/dl (2.5-4.0); Magnesium 2.1 mg/dl (1.7-2.4); Potassium 3.4 mmol/L (3.5-5.1)
[2024-04-05 11:21] LABS: Folate (Folic Acid),Ser orPlas > 22.30 ng/ml (>5.38); Vitamin B12 1002 pg/ml (180-914)
--- NOTE | 2024-04-05 11:34 | Discharge Summary ---
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 As per ER patient reportedly made some statements about suicidal ideation and poor living conditions to a friend. Friend was concerned for wellbeing and called police for 302. Appears patient was incontinent and very intoxicated when police arrived at home. Tylenol/sleep aids and ibuprofen were scattered across the floor. Suicidal Ideation MDD Was admitted under a 302 Suicidal precautions One-to-one Continue home psych meds Psychiatry consulted, appreciate recs. Recommended/stated the following: -she currently denies SI and is future oriented. -did recommend inpatient rehab however she is pre contemplative about q uitting alcohol and was counseled on risks. -She does not appear to be in a major mood episode. -She is not at imminent risk of harm to herself or others and does not warrant further involuntary admission. -She was offered voluntary inpatient psych admission and refused. -Would recommend discharge with rehab and case management resources once alcohol withdrawal complete. -Discontinue 1:1 sitter. -Continue home psych meds. Pt given rehab resources by CM and discharged on 04/05/24. Close Psychiatry and PCP followup after discharge. Alcohol Abuse Alcohol level 451 Drowsy on admission Urine drug screen negative. Tylenol level less than 3. Salicylate level less than 3. IV Banana bag IV thiamine and IV folic acid Alcohol withdrawal protocol with IV Ativan as needed and closely monitor for withdrawal Continued home gabapentin Alcohol cessation strongly encouraged PCP followup after discharge Type 2 diabetes Continue home Lantus ISS Resume home meds after discharge Notes For Next Care Provider Please ensure followup with Psychiatry after discharge Encourage alcohol cessation Medication Changes From Visit None Admission HPI Per Admitting Provider 58-year-old female with past medical history significant for type 2 diabetes, history of amputation of her left leg through tibia and fibula, medical marijuana use, ongoing alcoholism and tobacco abuse was brought in as 302. As per ER patient reportedly made some statements about suicidal ideation and poor living conditions to a friend. Friend was concerned for wellbeing and called police for 302. Seems patient was incontinent and very intoxicated when police arrived at home. Tylenol/sleep aids and ibuprofen were scattered across the floor. Patient is currently somewhat drowsy. But able to tell her name. Knows she is in the hospital. Could tell the month. States she drinks 2 cups of wine 3 times a week. Smokes less than a pack a day. Smokes marijuana 2 times a day. Denies any other drug use. States she fell. States still has thoughts of hurting herself. Denies headache. Denies chest pain. Denies shortness of breath, denies nausea. Denies abdominal pain. Patient is afebrile. Hemodynamics are okay. Past medical history. As mentioned above Past surgical history EGD. Surgical removal of a ruptured tooth. Social history. smokes half pack a day. Drinks alcohol 2 glasses of wine 3 times a week as per patient. Smokes medical marijuana 2 times Daily. Family history. Mother had breast cancer, Hypertension. Sister had breast cancer. Admission Exam Per Admitting Provider General- Drowsy Head- atraumatic Eyes- EOMI Neck- supple, no JVD. Lungs- clear to auscultation no wheezing or crackles. Heart- regular rhythm; no murmur, no gallop. Abdomen- normal bowel sounds, soft, nontender, no distension Extremities- no pretibial edema, no erythema seen Neuro- Drowsy; EOMI; no facial palsy; no dysarthria; obeys simple commands, moves extremities. Discharge Exam General: Alert, oriented. No acute distress Skin: No noted rashes or bruises Psych: subdued mood and affect HEENT: NC/AT CV: RRR Resp: Breath sounds clear bilaterally, no increased effort of breathing. Abdomen: Soft, nontender, nondistended Extremities: Noted amputation of the left leg Updated Medication List Medication Instructions Recorded Confirmed Type cyanocobalamin (vitamin B-12) 1,000 mcg PO DAILY 05/10/20 04/04/24 History 1,000 mcg tablet (Vitamin B-12) multivitamin 1 tab PO DAILY 12/24/21 04/04/24 History folic acid 1 mg tablet 1 mg PO DAILY 05/21/22 04/04/24 History fluticasone propionate 50 1 spray intranasal DAILY 03/11/23 04/04/24 History mcg/actuation nasal spray,suspension duloxetine 60 mg capsule,delayed 60 mg PO QAM #30 caps 09/26/23 04/04/24 Rx release (Cymbalta) [id number] 1 cap PO TID #90 caps 09/26/23 04/04/24 Rx 6,000-19,000-30,000 unit capsule,delayed rel (Creon) duloxetine 30 mg capsule,delayed 30 mg PO QAM 04/04/24 04/04/24 History release flash glucose sensor (FreeStyle 04/04/24 04/04/24 History Janny 2 Sensor kit) gabapentin 300 mg capsule See Rx Instructions .Route .COMPLEX 04/04/24 04/04/24 History insulin aspart U-100 100 unit/mL See Rx Instructions .Route .COMPLEX 04/04/24 04/04/24 History (3 mL) subcutaneous pen (Novolog FlexPen U-100 Insulin aspart) insulin glargine 100 unit/mL (3 28 unit subcut QPM 04/04/24 04/04/24 History mL) subcutaneous pen (Lantus Solostar U-100 Insulin) magnesium 500 mg tablet 500 mg PO DAILY 04/04/24 04/04/24 History melatonin 5 mg tablet 5 mg PO HS PRN Sleep 04/04/24 04/04/24 History triamcinolone acetonide 0.1 % 1 applic topical DAILY PRN 04/04/24 04/04/24 History topical cream psoriasis Hospital Stay Data Consultations 04/04/24 05:44 ED Decision to Admit Stat 04/04/24 06:24 Consult Psychiatry Routine Discharge Instructions Given to Patient (Per Discharging Provider) Gem, Per psychiatry, you declined voluntary inpatient psychiatric care or rehab. As such you are being discharged home. We encourage alcohol cessation. Please keep close follow up with your primary care provider after discharge as well as your psychiatrist. Please do not hesitate to come back to the emergency room if your symptoms worsen or return. It was a pleasure taking care of you while you were here. Total Time Total Time Spent Total Time Spent (In Minutes): 65
--- NOTE | 2024-04-05 11:45 | Psychiatric Consultation ---
Date of Consultation April 05, 2024 Impression / Recommendations Impression The patient currently denies suicidal ideation and is future oriented. She presents intact reality testing wanting to live for herself and mother. She does not appear to be in a major mood episode and has been adherent to her antidepressant. She was offered voluntary inpatient psychiatry admission and refused; she is not at imminent risk of harm to herself or others and does not warrant further involuntary admission. She is precontemplative about quitting alcohol; motivational interviewing was conducted and she was counseled on risks of continued alcohol dependence. Overall, I spent a total of 60 minutes with this case including review of chart records, nursing report, review of lab work, direct evaluation of the patient at bedside, counseling the patient, discussion of the patient with the hospitalist provider, discussion with the psychiatric liason during clinical rounds, and documentation in the electronic health record. (1) Alcohol use disorder: (2) Alcohol withdrawal: (3) Medical marijuana use: (4) MDD (major depressive disorder), recurrent, in partial remission: (5) Below knee amputation: Plan May return home and recommend to provide rehab and outpatient case management resources once alcohol withdrawal is complete. No indication for bedside sitter and may discontinue. Continue home psychiatric medications. Psych History Identifying Data 58-year-old white female history of alcohol use disorder, partial left leg amputation presented with suicidal ideation in the context of alcohol intoxication. BAL of 451 on admission. Recent hospital visit on for for alcohol intoxication. Chief Complaint Suicidal ideation History of Present Illness The patient reports she was drinking and that she told her friend's sister that she was feeling suicidal. They also found an ambiguous note about . Then she remembers being taken to the hospital. Denies suicidal ideation prior to drinking that day and currently denies suicidal ideation. Denies a history of suicide attempts. Reports recently drinking more because of financial stressors and to cope with the anxiety. Denies having current shakes, tremors, diaphoresis, anxiety currently. She presents a plan to take a shower, work on self-care, look for jobs, spend time with her mother. She is currently not interested in inpatient psychiatry admission or inpatient substance use rehab. Reports past engagement in AA and inpatient rehab and was partially effective. Reports drinking 3 to 5 days a week ranging from 1 to 2 glasses of wine to 4 to 5 glasses of wine. 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 Reports medical marijuana use taking 2 puffs of her vapor at night to cope with nerve pain. Denies other drug use. Reports a period of sobriety last year lasting over 3 months. During that 3-month period reported stable mood, good appetite, fair energy and concentration, lack of anhedonia. Reports trouble falling and maintaining sleep and this has been chronic. Reports main sleep issues are due to anticipatory anxiety about the future including finances. Denies having periods of poor sleep with elevated mood, energy, goal directed activities. Denies h/o AVH. 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 Parents during the sixth grade, she felt supported by them. She denies physical/sexual/emotional abuse growing up. Lives alone. On probation. . Zoroastrian. Allergies Allergy/AdvReac Type Severity Reaction Status Date / Time haloperidol [From Haldol] AdvReac Unknown Unknown Verified 03/14/24 01:35 Home Medications Medication Instructions Recorded Confirmed Type cyanocobalamin (vitamin B-12) 1,000 mcg PO DAILY 05/10/20 04/04/24 History 1,000 mcg tablet (Vitamin B-12) multivitamin 1 tab PO DAILY 12/24/21 04/04/24 History folic acid 1 mg tablet 1 mg PO DAILY 05/21/22 04/04/24 History fluticasone propionate 50 1 spray intranasal DAILY 03/11/23 04/04/24 History mcg/actuation nasal spray,suspension duloxetine 60 mg capsule,delayed 60 mg PO QAM #30 caps 09/26/23 04/04/24 Rx release (Cymbalta) [id number] 1 cap PO TID #90 caps 09/26/23 04/04/24 Rx 6,000-19,000-30,000 unit capsule,delayed rel (Creon) duloxetine 30 mg capsule,delayed 30 mg PO QAM 04/04/24 04/04/24 History release flash glucose sensor (FreeStyle 04/04/24 04/04/24 History Janny 2 Sensor kit) gabapentin 300 mg capsule See Rx Instructions .Route .COMPLEX 04/04/24 04/04/24 History insulin aspart U-100 100 unit/mL See Rx Instructions .Route .COMPLEX 04/04/24 04/04/24 History (3 mL) subcutaneous pen (Novolog FlexPen U-100 Insulin aspart) insulin glargine 100 unit/mL (3 28 unit subcut QPM 04/04/24 04/04/24 History mL) subcutaneous pen (Lantus Solostar U-100 Insulin) magnesium 500 mg tablet 500 mg PO DAILY 04/04/24 04/04/24 History melatonin 5 mg tablet 5 mg PO HS PRN Sleep 04/04/24 04/04/24 History triamcinolone acetonide 0.1 % 1 applic topical DAILY PRN 04/04/24 04/04/24 History topical cream psoriasis Patient History Medical History Oral thrush Thrombocytopenia Tobacco dependence Depression with anxiety Unable to establish with psychiatrist Elder PT UNAWARE SBO (small bowel obstruction) Resolved Lipoma NECK Polycystic ovarian syndrome Surgical History History of left below knee amputation Amputation of left lower extremity TO APPROX MID CALF History of ankle surgery 02/2019 left ankle ex fix, grade 2 view with MAC 3 and 7.0 ETT History of tooth extraction Family History Uncle Diabetes Mother Breast cancer Sister Breast cancer Father Prostate cancer Other Family history of breast cancer in mother Family history of breast cancer in sister Denies family history of Ovarian cancer Myocardial infarction Colorectal cancer Social History Smoking Status: Current every day smoker Tobacco Type: Cigarettes packs per day: 0.75; Cigarettes Per Day: 10; Second Hand Exposure: Yes; Do You Dip or Chew Tobacco: No; Hx Alcohol Use: Yes Alcohol type: wine Hx Substance Use: No Preferred Language: [place] Island[place] Communication Ability: Effective Visual Impairment: No Limitations Washroom Operator Required: No Beliefs That Will Affect Care: None marital status: marital status details: no children Current Living Situation: Alone Current Living Situation Comment: unknown current occupational status: disabled Feels Safe at Home: No Is there a partner from a previous relationship who is making you feel unsafe now?: No Assistive Devices: Prosthesis, Walker and Wheelchair Physical Exam Mental Examination: Appearance: Unkempt Eye Contact: Maintains Eye Contact Motor Behavior: Restless Speech: Normal and Excessive Mood: Euthymic Affect: Congruent Thought Process: Intact, Goal Oriented and Linear Thought Content: Intact Hallucinations: None Insight: Poor (minimizing impact of alcohol) Judgement: Poor (precontemplative about quitting) Vital Signs (Past 24 Hours): Last Vital Signs Temp 36.9 C 04/05/24 11:37 Pulse 83 04/05/24 11:37 Resp 18 04/05/24 11:37 BP 178/97 H 04/05/24 11:37 Pulse Ox 94 04/05/24 11:37 O2 Del Method Room Air 04/05/24 11:37 O2 Flow Rate 2 04/04/24 06:24 Results & Data (PSY) Medications Administered Acetaminophen (Acetaminophen 325 Mg Tab) 650 mg PO Q4H PRN PRN Reason: Pain or Fever Stop: 05/04/24 21:37 Last Admin: 04/05/24 02:35 Dose: 650 mg Documented By: Admin: 04/04/24 21:51 Dose: 650 mg Documented By: CARSON Lipase/Protease/Amylase (Pancreaze (Lipase 16,800u) Cap) 1 cap PO TIDM [facility] Stop: 05/04/24 07:59 Last Admin: 04/05/24 07:44 Dose: 1 cap Documented By: Admin: 04/04/24 17:25 Dose: 1 cap Documented By: Admin: 04/04/24 12:10 Dose: 1 cap Documented By: Admin: 04/04/24 10:06 Dose: 1 cap Documented By: LUNA Cyanocobalamin (Cyanocobalamin (B-12) 500 Mcg Tablet) 1,000 mcg PO DAILY [facility] Stop: 05/04/24 08:59 Last Admin: 04/05/24 07:44 Dose: 1,000 mcg Documented By: Admin: 04/04/24 10:07 Dose: 1,000 mcg Documented By: LUNA Duloxetine HCl (Duloxetine Hcl 60 Mg Cap) 60 mg PO QAM [facility] Stop: 05/04/24 08:59 Last Admin: 04/05/24 07:47 Dose: 60 mg Documented By: Admin: 04/04/24 10:06 Dose: 60 mg Documented By: LUNA Enoxaparin Sodium (Enoxaparin Inj 40 Mg/0.4 Ml Syr) [facility] [place]: 05/04/24 08:59 Last Admin: 04/05/24 07:46 Dose: Not Given Documented By: Admin: 04/04/24 10:05 Dose: 40 mg Documented By: LUNA Gabapentin (Gabapentin 300 Mg Cap) 300 mg PO 0900,1200 [facility] Stop: 05/04/24 08:59 Last Admin: 04/05/24 07:45 Dose: 300 mg Documented By: Admin: 04/04/24 12:10 Dose: 300 mg Documented By: Admin: 04/04/24 10:06 Dose: 300 mg Documented By: LUNA Gabapentin (Gabapentin 300 Mg Cap) 600 mg PO HS [facility] Stop: 05/04/24 20:59 Last Admin: 04/04/24 20:20 Dose: 600 mg Documented By: CARSON Thiamine HCl 100 mg/ Syringe 10 mls @ 2 mls/[place] [facility] [place]: 05/04/24 08:59 Last Admin: 04/05/24 07:44 Dose: 2 mls/min Documented By: Admin: 04/04/24 10:05 Dose: 2 mls/min Documented By: LUNA Folic Acid 1 mg/ Syringe 10 mls @ 5 mls/[place] [facility] [place] [facility] [place]: 05/04/24 08:59 Last Admin: 04/05/24 07:44 Dose: 5 mls/min Documented By: Admin: 04/04/24 10:05 Dose: 5 mls/min Documented By: LUNA Promethazine HCl 6.25 mg/ (Sodium Chloride) 50.25 mls @ 201 mls/hr IV Q6H PRN PRN Reason: Nausea And Vomiting Stop: 05/04/24 14:55 Last Infusion: 04/04/24 15:49 Dose: Infused Documented By: Admin: 04/04/24 15:25 Dose: 201 mls/hr Documented By: ARNULFO Insulin Aspart (Insulin Aspart Per Unit Charge) 0 units SC ACHS [facility] Stop: 05/04/24 07:29 Last Admin: 04/05/24 09:19 Dose: 9 units Documented By: ARNULFO Co-signed By: [id number] Admin: 04/04/24 20:21 Dose: Not Given Documented By: CARSON Co-signed By: SAMIA Admin: 04/04/24 17:24 Dose: 220 units Documented By: ARNULFO Co-signed By: JULIANNE Admin: 04/04/24 13:21 Dose: 5 units Documented By: ARNULFO Co-signed By: JULIANNE Admin: 04/04/24 07:31 Dose: 6 units Documented By: LUNA Co-signed By: LUIZ Insulin Glargine (Lantus Per Unit Charge) 28 units SC QPM [facility] Stop: 05/04/24 20:59 Last Admin: 04/04/24 20:20 Dose: 28 units Documented By: CARSON Co-signed By: SAMIA Menthol (Cough Drop (Sugar Free) Lilliana 24 Lilliana/1 Box) 1 lilliana BUCCAL Q6H PRN PRN Reason: Sore Throat Stop: 05/04/24 09:28 Last Admin: 04/04/24 09:45 Dose: 1 lilliana Documented By: LUNA Multivitamins (Multivitamin Tab) 1 tab PO DAILY [facility] Stop: 05/04/24 08:59 Last Admin: 04/05/24 07:45 Dose: 1 tab Documented By: Admin: 04/04/24 10:07 Dose: 1 tab Documented By: LUNA Ondansetron HCl (Ondansetron Inj 2 Mg/Ml 2 Ml Vial) 4 mg IV Q6H PRN PRN Reason: Nausea And Vomiting Stop: 05/04/24 09:23 Last Admin: 04/04/24 09:39 Dose: 4 mg Documented By: LUNA [place] [address] IN/OBS CONSULT LVL 4,60M Patient Type New History Expanded Problem Focused Exam Expanded Problem Focused Medical Decision Making Moderate Complexity Diagnoses Alcohol use disorder F10.90 Alcohol withdrawal F10.239 Medical marijuana use Z79.899 MDD (major depressive disorder), recurrent, in partial remission F33.41 Below knee amputation S88.119A
== END 2024-04-05 15:08 | disposition home or self-care (01) | DRG 885 ==
LOC: ED 03:55 → EDINP 06:11 → 2W 06:24

== ENCOUNTER 2024-05-03 22:42 | Inpatient (IN) ==
[2024-05-03 23:54] LABS: iSTAT Creatinine 1.4 mg/dl (0.6-1.3); iSTAT Hemoglobin 16.3 g/dl (12.0-16.0); iSTAT Ionized Calcium 0.96 mmol/l (1.12-1.32)
[2024-05-04] MEDS: SODIUM CHLORIDE 0.9% 1,000 ML IV ONE (00:10)
[2024-05-04 00:12] LABS: Basophils # (auto) 0.03 K/uL (0.00-0.20); Basophils % (auto) 0.6 %; Eosinophils # (auto) 0.03 K/uL (0.00-0.50); Eosinophils % (auto) 0.6 %; Hematocrit (blood only) 42.9 % (37.0-47.0); Hemoglobin 14.9 g/dl (12.0-16.0); Immature Granulocytes # (auto) 0.03 K/uL (0.01-0.20); Immature Granulocytes % (auto) 0.6 %; Lymphocytes # (auto) 0.82 K/uL (1.20-3.40); Lymphocytes % (auto) 16.6 %; Mean Corpuscular Hemoglobin 30.9 pg (25.0-34.0); Mean Corpuscular Hgb Conc 34.7 g/dL (32.0-36.0); Mean Platelet Volume 10.5 fL (9.4-12.4); Monocytes # (auto) 0.16 K/uL (0.11-0.59); Monocytes % (auto) 3.2 %; Neutrophils # (auto) 3.88 K/uL (1.40-6.50); Neutrophils % (auto) 78.4 %; Platelet Count 77 K/uL (130-400); RDW Coefficient of Variation 13.3 % (11.5-14.5); RDW Standard Deviation 43.7 fL (36.4-46.3); Red Blood Count 4.82 M/uL (4.20-5.40); White Blood Count 4.95 K/ul (4.8-10.8)
[2024-05-04 00:22] LABS: Albumin Globulin Ratio 1.6 (0.9-2); Albumin Level 4.7 gm/dl (3.4-5.0); BUN Creatinine Ratio 17.6 (10-20); Bilirubin,Total 0.9 mg/dl (0.2-1.0); Calcium 8.9 mg/dl (8.6-10.3); Creatinine Clr Calc Pharmacy 84.4 ml/min; Est GFR (African American) 111.8 ml/min; Est GFR (Non-African American) 96.4 ml/min; Globulin 2.9 gm/dl (2.5-4.0); Potassium 3.9 mmol/L (3.5-5.1); Total Protein 7.6 gm/dl (6.0-8.3)
--- NOTE | 2024-05-04 00:32 | Emergency Department Note ---
Impression & Plan Alcoholic hepatitis, Alcohol abuse with withdrawal ED Provider Note NAME: GEM CORREA AGE: 58 SEX: F : 1965 ARRIVES VIA: Ambulance INFORMANT: Patient, ED PROVIDER(S): Tanisha Nelson MD CHIEF COMPLAINT: Alcohol intoxication, disheveled HPI: This is a 58-year-old female with history of depression, alcohol use disorder presenting for alcohol intoxication. Patient was found by mother in a state of disarray. Patient is usually clean, collected. She has relapsed on alcohol and since then has had significant issues. Patient is with her mother who states that patient has had new tremor to her face. Otherwise she does have a left BKA from a previous fall. Otherwise patient currently does mention depression as a chronic problem. She also mentions diabetes. She reports no fevers or chills. No abdominal pain. Denies any current SI, HI. ROS: See above HPI for pertinent positives & negatives. A total of 10 systems reviewed and were otherwise negative. PHYSICAL EXAMINATION: General: Disheveled, malodorous, facial wasting Head: Normocephalic Eyes: Normal inspection, extraocular muscles intact Ear, nose, throat: Normal external exam Neck: Normal range of motion Respiratory: lungs clear to auscultation bilaterally Cardiovascular: Regular rate/rhythm, no murmur GI: soft, nontender, no guarding or rebound Extremities: Left BKA Neuro: Awake, alert, cranial nerves II through XII grossly intact, slight facial tremor Skin: Warm, dry, and intact MEDICAL DECISION MAKING: This is a 58-year-old female presenting for alcohol intoxication. Patient is quite disheveled has not been care for self. Currently denies any suicidal or homicidal thoughts. Patient appears somewhat intoxicated. Will do screening workup to include chest x-ray, blood work, alcohol level, UA. -Patient is tremulous and tachycardic concern for alcohol withdrawal, will give Valium 5 mg IV -Patient is intoxicated with an alcohol level of 380 -Bloodwork is reviewed showing no significant leukocytosis or anemia. Electrolytes generally within normal limits. Slight anion gap. Significant transaminitis, with AST greater than ALT concerning for alcoholic hepatitis. Patient has upper quadrant abdominal pain upon reassessment. Will do CT ab/pelvis to rule out cholecystitis -CT imaging does not reveal signs of cholecystitis., Does reveal signs of chronic pancreatitis and small hiatal hernia. Differential diagnosis: Alcohol withdrawal, failure to thrive, alcoholic hepatitis ER treatment provided: See below Diagnostics interpreted by me: ECG: ECG independently interpreted by me with normal sinus rhythm, rate of 100, normal axis, normal ID, normal QRS, normal QTc, no ST segment elevations consistent with STEMI criteria Cardiac Monitoring: An order was placed for continuous cardiac monitoring. The monitor shows a rate of 108 with sinus tachycardia rhythm. Laboratory studies: As stated above and show below. Imaging studies: See below. Past Med/Surg History Problem List (Updated 05/04/24 @ 06:11 by Tanisha Nelson MD) Alcohol abuse with withdrawal (Acute) Alcoholic hepatitis (Acute) MDD (major depressive disorder), recurrent, in partial remission Medical marijuana use Feeling suicidal (Acute) Alcohol intoxication (Acute) Alcohol intoxication (Acute) Alcohol use disorder Vitamin D deficiency (Acute) Psoriasis (Acute) IPMN (intraductal papillary mucinous neoplasm) Imaging July 2020 follow-up yearly Encephalomalacia (Acute) History of GI bleed Diabetic peripheral neuropathy associated with type 1 diabetes mellitus Liver cirrhosis (Acute) Exocrine pancreatic insufficiency Insomnia Dysesthesia Diabetes type 1, uncontrolled (Acute) Dyslipidemia Alcohol abuse (Acute) Below knee amputation Medical History Oral thrush Thrombocytopenia Tobacco dependence Depression with anxiety Unable to establish with psychiatrist Hydrosalpinx PT UNAWARE SBO (small bowel obstruction) Resolved Lipoma NECK Polycystic ovarian syndrome Surgical History History of left below knee amputation Amputation of left lower extremity TO APPROX MID CALF History of ankle surgery 02/2019 left ankle ex fix, grade 2 view with MAC 3 and 7.0 ETT History of tooth extraction Family History Uncle Diabetes Mother Breast cancer Sister Breast cancer Father Prostate cancer Other Family history of breast cancer in mother Family history of breast cancer in sister Denies family history of Ovarian cancer Myocardial infarction Colorectal cancer Social History Smoking Status: Current every day smoker Tobacco Type: Cigarettes packs per day: 0.75; Cigarettes Per Day: 10; Second Hand Exposure: Yes; Do You Dip or Chew Tobacco: No; Hx Alcohol Use: Yes Alcohol type: wine Hx Substance Use: No Preferred Language: Guamanian Communication Ability: Effective Visual Impairment: No Limitations Rn Neonatal Required: No Beliefs That Will Affect Care: None marital status: marital status details: no children Current Living Situation: Alone Current Living Situation Comment: unknown current occupational status: disabled Other Information That Helps Us Care for You: No Feels Safe at Home: No Is there a partner from a previous relationship who is making you feel unsafe now?: No Assistive Devices: Wheelchair Allergies Allergies Allergy/AdvReac Type Severity Reaction Status Date / Time haloperidol [From Haldol] AdvReac Unknown ON Verified 05/04/24 00:51 [employer] MED LIST Home Meds Home Medications Medication Instructions Recorded Confirmed cyanocobalamin (vitamin B-12) 1,000 mcg PO DAILY 05/10/20 05/04/24 1,000 mcg tablet (Vitamin B-12) multivitamin 1 tab PO DAILY 12/24/21 05/04/24 folic acid 1 mg tablet 1 mg PO DAILY 05/21/22 05/04/24 fluticasone propionate 50 1 spray intranasal DAILY 03/11/23 05/04/24 mcg/actuation nasal spray,suspension flash glucose sensor (FreeStyle 04/04/24 05/04/24 Janny 2 Sensor kit) gabapentin 300 mg capsule See Rx Instructions .Route .COMPLEX 04/04/24 05/04/24 insulin aspart U-100 100 unit/mL 0 sliding scale dose subcut AC 04/04/24 05/04/24 (3 mL) subcutaneous pen (Novolog FlexPen U-100 Insulin aspart) insulin glargine 100 unit/mL (3 28 unit subcut QPM 04/04/24 05/04/24 mL) subcutaneous pen (Lantus Solostar U-100 Insulin) melatonin 5 mg tablet 5 mg PO HS PRN Sleep 04/04/24 05/04/24 triamcinolone acetonide 0.1 % 1 applic topical DAILY PRN 04/04/24 05/04/24 topical cream psoriasis B-complex with vitamin C 1 cap PO DAILY 05/04/24 05/04/24 magnesium oxide 500 mg PO DAILY 05/04/24 05/04/24 Previous Rx's Medication Instructions Recorded duloxetine 60 mg capsule,delayed 60 mg PO QAM #30 caps 09/26/23 release (Cymbalta) cehdgi-qwcvuson-eliplmo 1 cap PO TID #90 caps 09/26/23 6,000-19,000-30,000 unit capsule,delayed rel (Creon) Results & Data (ED) Vital Signs Vital Signs - 24 hr 05/03/24 22:52 05/04/24 00:33 05/04/24 00:33 Temperature 36.9 C Temperature Source Oral Pulse Rate 101 H 105 H 103 H Pulse Rate [Apical] Pulse Rate from SpO2 Sensor 105 H Pulse Rhythm Regular Pulse Rhythm [Apical] Respiratory Rate 18 14 Respiratory Effort / Characteristics Non-Labored Respiratory Depth Blood Pressure 139/86 Blood Pressure [Left Arm] Blood Pressure Mean 103 Blood Pressure Mean [Left Arm] Pulse Oximetry 90 97 Oxygen Delivery Method Room Air Sepsis Recent Fever Within 48 Hours No Sepsis New/Unexplained Change in Mental Status No Sepsis Action Taken by Nursing No Action Required 05/04/24 01:03 05/04/24 01:05 05/04/24 01:06 Temperature Temperature Source Pulse Rate 95 H Pulse Rate [Apical] 95 H Pulse Rate from SpO2 Sensor 96 H Pulse Rhythm Pulse Rhythm [Apical] Regular Respiratory Rate 14 18 Respiratory Effort / Characteristics Respiratory Depth Normal Blood Pressure Blood Pressure [Left Arm] 139/86 Blood Pressure Mean Blood Pressure Mean [Left Arm] 103 Pulse Oximetry 93 93 93 Oxygen Delivery Method Room Air Room Air Sepsis Recent Fever Within 48 Hours Sepsis New/Unexplained Change in Mental Status Sepsis Action Taken by Nursing 05/04/24 01:48 05/04/24 02:10 05/04/24 02:24 Temperature Temperature Source Pulse Rate 103 H Pulse Rate [Apical] 105 H Pulse Rate from SpO2 Sensor 111 H Pulse Rhythm Pulse Rhythm [Apical] Respiratory Rate 18 17 Respiratory Effort / Characteristics Respiratory Depth Normal Blood Pressure 110/88 Blood Pressure [Left Arm] 139/86 Blood Pressure Mean 95 Blood Pressure Mean [Left Arm] 103 Pulse Oximetry 95 94 97 Oxygen Delivery Method Room Air Sepsis Recent Fever Within 48 Hours Sepsis New/Unexplained Change in Mental Status Sepsis Action Taken by Nursing 05/04/24 02:42 05/04/24 02:42 05/04/24 02:42 Temperature Temperature Source Pulse Rate Pulse Rate [Apical] Pulse Rate from SpO2 Sensor Pulse Rhythm Pulse Rhythm [Apical] Respiratory Rate Respiratory Effort / Characteristics Respiratory Depth Blood Pressure 110/88 110/88 110/88 Blood Pressure [Left Arm] Blood Pressure Mean 91 91 91 Blood Pressure Mean [Left Arm] Pulse Oximetry Oxygen Delivery Method Sepsis Recent Fever Within 48 Hours Sepsis New/Unexplained Change in Mental Status Sepsis Action Taken by Nursing 05/04/24 02:42 05/04/24 02:54 05/04/24 03:00 Temperature Temperature Source Pulse Rate 118 H 114 H Pulse Rate [Apical] Pulse Rate from SpO2 Sensor 105 H 103 H Pulse Rhythm Pulse Rhythm [Apical] Respiratory Rate 20 14 Respiratory Effort / Characteristics Respiratory Depth Blood Pressure 123/79 Blood Pressure [Left Arm] Blood Pressure Mean 91 Blood Pressure Mean [Left Arm] Pulse Oximetry 97 95 Oxygen Delivery Method Sepsis Recent Fever Within 48 Hours Sepsis New/Unexplained Change in Mental Status Sepsis Action Taken by Nursing 05/04/24 03:03 05/04/24 03:27 05/04/24 03:30 Temperature Temperature Source Pulse Rate 104 H 102 H Pulse Rate [Apical] Pulse Rate from SpO2 Sensor 108 H 101 H Pulse Rhythm Pulse Rhythm [Apical] Respiratory Rate 21 19 Respiratory Effort / Characteristics Respiratory Depth Blood Pressure 139/79 Blood Pressure [Left Arm] Blood Pressure Mean 101 Blood Pressure Mean [Left Arm] Pulse Oximetry 97 94 Oxygen Delivery Method Sepsis Recent Fever Within 48 Hours Sepsis New/Unexplained Change in Mental Status Sepsis Action Taken by Nursing 05/04/24 03:30 05/04/24 03:30 05/04/24 03:33 Temperature Temperature Source Pulse Rate Pulse Rate [Apical] Pulse Rate from SpO2 Sensor 108 H Pulse Rhythm Pulse Rhythm [Apical] Respiratory Rate Respiratory Effort / Characteristics Respiratory Depth Blood Pressure 139/79 139/79 Blood Pressure [Left Arm] Blood Pressure Mean 101 101 Blood Pressure Mean [Left Arm] Pulse Oximetry 96 Oxygen Delivery Method Sepsis Recent Fever Within 48 Hours Sepsis New/Unexplained Change in Mental Status Sepsis Action Taken by Nursing Laboratory Data 05/04/24 04:01 05/04/24 04:01 Lab Results 05/03/24 05/03/24 05/03/24 Range/Units 23:25 23:30 23:41 WBC 4.95 (4.8-10.8) K/ul RBC 4.82 (4.20-5.40) M/uL Hgb 14.9 (12.0-16.0) g/dl POC Hgb 16.3 H (12.0-16.0) g/dl Hct 42.9 (37.0-47.0) % POC Hct 48 H (37-47) % MCV 89.0 (80.0-100.0) fL MCH 30.9 (25.0-34.0) pg MCHC 34.7 (32.0-36.0) g/dL RDW Std Deviation 43.7 (36.4-46.3) fL RDW Coeff of Ethel 13.3 (11.5-14.5) % Plt Count 77 L (130-400) K/uL MPV 10.5 (9.4-12.4) fL Immature Gran % (Auto) 0.6 % Neut % (Auto) 78.4 % Lymph % (Auto) 16.6 % [place] % (Auto) 3.2 % Eos % (Auto) 0.6 % Baso % (Auto) 0.6 % Neut # (Auto) 3.88 (1.40-6.50) K/uL Lymph # (Auto) 0.82 L (1.20-3.40) K/uL [place] # (Auto) 0.16 (0.11-0.59) K/uL Eos # (Auto) 0.03 (0.00-0.50) K/uL Baso # (Auto) 0.03 (0.00-0.20) K/uL Immature Gran # (Auto) 0.03 (0.01-0.20) K/uL PT (9.0-12.0) Seconds INR (0.9-1.1) POC Sodium 135 (135-144) mmol/L Sodium 136 (136-145) mmol/L POC Potassium 4.0 (3.3-5.0) mmol/L Potassium 3.9 (3.5-5.1) mmol/L POC Chloride 94 L (101-112) mmol/L Chloride 92 L (98-107) mmol/L Carbon Dioxide 29 (21-32) mmol/L POC Total CO2 27 (24-31) mmol/L Anion Gap 15 H (3-11) POC Anion Gap 19.0 (16-25) mmol/L POC BUN 11 (7-18) mg/dl BUN 12 (6-23) mg/dl Creatinine 0.68 (0.6-1.2) mg/dl POC Creatinine 1.4 H (0.6-1.3) mg/dl Est Cr Clr Drug Dosing 84.4 ml/min Est GFR ( Amer) 111.8 ml/min Est GFR (Non-Af Amer) 96.4 ml/min BUN/Creatinine Ratio 17.6 (10-20) Glucose 217 H (70-99(Fasting)) mg/dl POC Glucose 205 H (70-99) mg/dl POC Glucose (other) 215 H (70-99) mg/dl Calcium 8.9 (8.6-10.3) mg/dl POC Ioniz Calcium Bri 0.96 L (1.12-1.32) mmol/l Magnesium 2.1 (1.7-2.4) mg/dl Total Bilirubin 0.9 (0.2-1.0) mg/dl AST 375 H (13-39) U/L ALT 176 H (7-52) U/L Alkaline Phosphatase 255 H (34-104) U/L Total Protein 7.6 (6.0-8.3) gm/dl Albumin 4.7 (3.4-5.0) gm/dl Globulin 2.9 (2.5-4.0) gm/dl Albumin/Globulin Ratio 1.6 (0.9-2) TSH 1.644 (0.300-4.500) uIu/ml Urine Color Urine Appearance (Clear) Urine pH (4.5-7.5) Ur Specific Mereta (1.000-1.030) Urine Protein (Negative) Urine Glucose (UA) (Negative) Urine Ketones (Negative) Urine Blood (Negative) Urine Nitrite (Negative) Urine Bilirubin (Negative) Urine Urobilinogen (Negative) Ur Leukocyte Esterase (Negative) Urine WBC (Auto) (0-5) /hpf Urine RBC (Auto) (0-2) /hpf U Hyaline Cast (Auto) (0-2) /lpf U Epithel Cells (Auto) (0-2) /hpf Urine Bacteria (Auto) (None Seen) Ethyl Alcohol mg/dL 380.1 H (<10.0) mg/dl 05/04/24 05/04/24 Range/Units 00:11 04:01 WBC 6.27 (4.8-10.8) K/ul RBC 4.01 L (4.20-5.40) M/uL Hgb 12.3 (12.0-16.0) g/dl POC Hgb (12.0-16.0) g/dl Hct 35.5 L (37.0-47.0) % POC Hct (37-47) % MCV 88.5 (80.0-100.0) fL MCH 30.7 (25.0-34.0) pg MCHC 34.6 (32.0-36.0) g/dL RDW Std Deviation 43.3 (36.4-46.3) fL RDW Coeff of Ethel 13.4 (11.5-14.5) % Plt Count 68 L (130-400) K/uL MPV 10.7 (9.4-12.4) fL Immature Gran % (Auto) 0.8 % Neut % (Auto) 74.5 % Lymph % (Auto) 19.8 % [place] % (Auto) 2.9 % Eos % (Auto) 1.4 % Baso % (Auto) 0.6 % Neut # (Auto) 4.67 (1.40-6.50) K/uL Lymph # (Auto) 1.24 (1.20-3.40) K/uL [place] # (Auto) 0.18 (0.11-0.59) K/uL Eos # (Auto) 0.09 (0.00-0.50) K/uL Baso # (Auto) 0.04 (0.00-0.20) K/uL Immature Gran # (Auto) 0.05 (0.01-0.20) K/uL PT 10.0 (9.0-12.0) Seconds INR 0.9 (0.9-1.1) POC Sodium (135-144) mmol/L Sodium 135 L (136-145) mmol/L POC Potassium (3.3-5.0) mmol/L Potassium 4.0 (3.5-5.1) mmol/L POC Chloride (101-112) mmol/L Chloride 96 L (98-107) mmol/L Carbon Dioxide 25 (21-32) mmol/L POC Total CO2 (24-31) mmol/L Anion Gap 14 H (3-11) POC Anion Gap (16-25) mmol/L POC BUN (7-18) mg/dl BUN 10 (6-23) mg/dl Creatinine 0.55 L (0.6-1.2) mg/dl POC Creatinine (0.6-1.3) mg/dl Est Cr Clr Drug Dosing 104.4 ml/min Est GFR ( Amer) 119.8 ml/min Est GFR (Non-Af Amer) 103.4 ml/min BUN/Creatinine Ratio 18.2 (10-20) Glucose 113 H (70-99(Fasting)) mg/dl POC Glucose (70-99) mg/dl POC Glucose (other) (70-99) mg/dl Calcium 7.8 L (8.6-10.3) mg/dl POC Ioniz Calcium Bri (1.12-1.32) mmol/l Magnesium (1.7-2.4) mg/dl Total Bilirubin 1.1 H (0.2-1.0) mg/dl AST 325 H (13-39) U/L ALT 149 H (7-52) U/L Alkaline Phosphatase 210 H (34-104) U/L Total Protein 6.1 (6.0-8.3) gm/dl Albumin 3.8 (3.4-5.0) gm/dl Globulin 2.3 L (2.5-4.0) gm/dl Albumin/Globulin Ratio 1.7 (0.9-2) TSH (0.300-4.500) uIu/ml Urine Color Yellow Urine Appearance Cloudy A (Clear) Urine pH 6.0 (4.5-7.5) Ur Specific Mere[place] 1.019 (1.000-1.030) Urine Protein 1+ H (Negative) Urine Glucose (UA) Negative (Negative) Urine Ketones 1+ H (Negative) Urine Blood Trace H (Negative) Urine Nitrite Negative (Negative) Urine Bilirubin Negative (Negative) Urine Urobilinogen Negative (Negative) Ur Leukocyte Esterase Negative (Negative) Urine WBC (Auto) 0-5 (0-5) /hpf Urine RBC (Auto) 3-5 H (0-2) /hpf U Hyaline Cast (Auto) 0-2 (0-2) /lpf U Epithel Cells (Auto) 6-10 H (0-2) /hpf Urine Bacteria (Auto) 1+ H (None Seen) Ethyl Alcohol mg/dL (<10.0) mg/dl Administered Medications Chlordiazepoxide HCl (Chlordiazepoxide Hcl 25 Mg Cap) 25 mg PO Q6H [facility] Stop: 05/04/24 22:16 Last Admin: 05/04/24 04:27 Dose: 25 mg Documented By: MERLY Multivitamins 10 ml/ Thiamine HCl 100 mg/ Folic Acid 1 mg/Sodium Chloride 1,011.2 mls @ 100 mls/hr IV .Q10H7M ONE Stop: 05/04/24 13:06 Last Admin: 05/04/24 04:29 Dose: 100 mls/hr Documented By: MERLY Nicotine (Nicotine 14 Mg/24 Hr Patch) 1 patch TD QAM [facility] Stop: 06/03/24 04:29 Last Admin: 05/04/24 05:14 Dose: 1 patch Documented By: MERLY Discontinued Medications Diazepam (Diazepam 5 Mg/Ml 10ml Vial) 5 mg IV NOW STA Stop: 05/04/24 01:50 Last Admin: 05/04/24 02:00 Dose: 5 mg Documented By: FORD Sodium Chloride (Nss) 1,000 mls @ 999 mls/hr IV .Q1H1M ONE Stop: 05/04/24 00:46 Last Infusion: 05/04/24 03:48 Dose: Infused Documented By: Admin: 05/04/24 00:10 Dose: 999 mls/hr Documented By: FORD Promethazine HCl (Phenergan) 6.25 mg in 50.25 mls @ 201 mls/hr IV NOW STA Stop: 05/04/24 04:09 Last Infusion: 05/04/24 04:26 Dose: Infused Documented By: Admin: 05/04/24 04:10 Dose: 201 mls/hr Documented By: MERLY Lorazepam 1 mg/ Syringe 1 mls @ 2 mls/min IV NOW STA Stop: 05/04/24 05:07 Last Admin: 05/04/24 05:21 Dose: 2 mls/min Documented By: MERLY Ioversol (Optiray 320 100ml) 100 ml IV ONCE ONE Stop: 05/04/24 01:43 Last Admin: 05/04/24 01:42 Dose: 93 ml Documented By: JOSEF Imaging Data Radiologist's Impression: Abdomen/Pelvis CT 05/04/24 01:19 Exam(s): CT ABDOMEN + PELVIS With Contrast IV Amt: 93 ML OPTIRAY 320 EXAM: CT Abdomen and Pelvis With Intravenous Contrast CLINICAL HISTORY: Reason for exam: RUQ pain, transaminitis, rubina vs CBD stone. TECHNIQUE: Axial computed tomography images of the abdomen and pelvis with intravenous contrast. Automated exposure control was utilized for the study. A dose lowering technique was utilized adhering to the principles of ALARA. CONTRAST: Patient received 93 ML OPTIRAY 320 of IV contrast COMPARISON: March 10, 2023. FINDINGS: Lung bases: Unremarkable. No mass. No consolidation. Mediastinum: Small hiatal hernia. ABDOMEN: Liver: Hepatic steatosis. Gallbladder and bile ducts: Unremarkable. No calcified stones. No ductal dilation. Pancreas: Atrophy and calcifications in the pancreas, consistent with sequelae of pancreatitis (chronic pancreatitis). Cystic focus in the pancreatic head measures 2.5-2.0 cm, stable when compared to March 10, 2023. No ductal dilation. Spleen: Unremarkable. No splenomegaly. Adrenals: Unremarkable. No mass. Kidneys and ureters: Unremarkable. No solid mass. No hydronephrosis. Stomach and bowel: Diverticulosis, without acute diverticulitis. No small bowel obstruction. No free intraperitoneal air. PELVIS: Appendix: No findings to suggest acute appendicitis. Bladder: Unremarkable. No mass. Reproductive: Unremarkable as visualized. ABDOMEN and PELVIS: Intraperitoneal space: Unremarkable. No free air. No significant fluid collection. Bones/joints: Degenerative changes of the spine. No acute fracture. No dislocation. Soft tissues: Unremarkable. Vasculature: Atherosclerotic changes of the aorta. No abdominal aortic aneurysm. Lymph nodes: Unremarkable. No enlarged lymph nodes. IMPRESSION: 1. Atrophy and calcifications in the pancreas, consistent with sequelae of pancreatitis (chronic pancreatitis). 2. Diverticulosis, without acute diverticulitis. No small bowel obstruction. No free intraperitoneal air. 3. Small hiatal hernia. Electronically signed by: Brody Kumar MD 05/04/24 02:42 AM Discharge Plan Visit Data Chief Complaint: Weakness Stated Complaint: WEAKNESS, DIZZINESS, DEPRESSION ED Provider: Tanisha Nelson Discharge Problem: Alcoholic hepatitis, Alcohol abuse with withdrawal Patient Disposition: Admitted As Inpatient Discharge Instructions Interventions: ED Discharge Assessment Last Done: 05/04/24 05:33
[2024-05-04 00:37] LABS: Thyroid Stimulating Hormone 1.644 uIu/ml (0.300-4.500)
[2024-05-04 01:14] LABS: Appearance Urine Cloudy (Clear); Bacteria Urine Automated 1+ (None Seen); Bilirubin Urine Negative (Negative); Blood Urine Trace (Negative); Cast Urine Automated 0-2 /lpf (0-2); Color Urine Yellow; Glucose Urine UA Negative (Negative); Ketones Urine 1+ (Negative); Leukocyte Esterase Urine Negative (Negative); Nitrite Urine Negative (Negative); Protein Urine 1+ (Negative); Specific Gravity Urine 1.019 (1.000-1.030); Urobilinogen Urine Negative (Negative); WBC Urine Automated 0-5 /hpf (0-5)
[2024-05-04] MEDS: OPTIRAY 320 100ml IV ONE (01:42)
[2024-05-04] MEDS: diazePAM 5 MG/ML 10ML VIAL IV STA (02:00)
--- NOTE | 2024-05-04 02:43 | CT Scan Report ---
Exam(s): CT ABDOMEN + PELVIS With Contrast IV Amt: 93 ML OPTIRAY 320 EXAM: CT Abdomen and Pelvis With Intravenous Contrast CLINICAL HISTORY: Reason for exam: RUQ pain, transaminitis, rubina vs CBD stone. TECHNIQUE: Axial computed tomography images of the abdomen and pelvis with intravenous contrast. Automated exposure control was utilized for the study. A dose lowering technique was utilized adhering to the principles of ALARA. CONTRAST: Patient received 93 ML OPTIRAY 320 of IV contrast COMPARISON: March 10, 2023. FINDINGS: Lung bases: Unremarkable. No mass. No consolidation. Mediastinum: Small hiatal hernia. ABDOMEN: Liver: Hepatic steatosis. Gallbladder and bile ducts: Unremarkable. No calcified stones. No ductal dilation. Pancreas: Atrophy and calcifications in the pancreas, consistent with sequelae of pancreatitis (chronic pancreatitis). Cystic focus in the pancreatic head measures 2.5-2.0 cm, stable when compared to March 10, 2023. No ductal dilation. Spleen: Unremarkable. No splenomegaly. Adrenals: Unremarkable. No mass. Kidneys and ureters: Unremarkable. No solid mass. No hydronephrosis. Stomach and bowel: Diverticulosis, without acute diverticulitis. No small bowel obstruction. No free intraperitoneal air. PELVIS: Appendix: No findings to suggest acute appendicitis. Bladder: Unremarkable. No mass. Reproductive: Unremarkable as visualized. ABDOMEN and PELVIS: Intraperitoneal space: Unremarkable. No free air. No significant fluid collection. Bones/joints: Degenerative changes of the spine. No acute fracture. No dislocation. Soft tissues: Unremarkable. Vasculature: Atherosclerotic changes of the aorta. No abdominal aortic aneurysm. Lymph nodes: Unremarkable. No enlarged lymph nodes. IMPRESSION: 1. Atrophy and calcifications in the pancreas, consistent with sequelae of pancreatitis (chronic pancreatitis). 2. Diverticulosis, without acute diverticulitis. No small bowel obstruction. No free intraperitoneal air. 3. Small hiatal hernia. Electronically signed by: Brody Kumar MD 05/04/24 02:42 AM
[2024-05-04 03:17] LABS: Magnesium 2.1 mg/dl (1.7-2.4)
--- NOTE | 2024-05-04 04:04 | History & Physical Report ---
Date of Service May 04, 2024 Assessment & Plan (1) Alcohol abuse with withdrawal: Plan: Transaminitis DM 2 insulin requiring, suboptimal control as of recent hemoglobin A1c of 7.6 last month anxiety/mood disorder, patient not suicidal ongoing tobacco abuse Admit to medical telemetry CHENTE S, DT precautions Follow LFTs, liver ultrasound if with progression Basal bolus insulin, ISS BG goal 1 10-1 40, carb count coverage Nicotine patch DVT prophylaxis. SCDs Re: Thrombocytopenia Full code Text document was generated using [employer] voice recognition software. It may contain grammatical or spelling errors. Kindly contact undersigned for clarification of any documentation item in question. History of Present Illness Chief Complaint: Mother worried about me and my drinking Primary Care Provider: Ingrid Mejias PA-C History obtained from patient and records. Medical history significant for DM 2 insulin requiring, anxiety/mood disorder, neuropathy, ongoing tobacco/alcohol abuse. Recent confinement last month for alcohol withdrawal and suicidality. Patient cleared by psychiatry prior to discharge. Patient found by mother at her home in a state of disarray. Mother worried about patient drinking. Patient denies suicidality. Denies headache, chest pain, SOB, abdominal pain. Patient would like to try to quit drinking again. Patient brought to ER for evaluation. 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, prior Lexim work Allergies Allergy/AdvReac Type Severity Reaction Status Date / Time haloperidol [From Haldol] AdvReac Unknown ON Verified 05/04/24 00:51 [employer] MED LIST Home Medications Medication Instructions Recorded Confirmed Type cyanocobalamin (vitamin B-12) 1,000 mcg PO DAILY 05/10/20 05/04/24 History 1,000 mcg tablet (Vitamin B-12) multivitamin 1 tab PO DAILY 12/24/21 05/04/24 History folic acid 1 mg tablet 1 mg PO DAILY 05/21/22 05/04/24 History fluticasone propionate 50 1 spray intranasal DAILY 03/11/23 05/04/24 History mcg/actuation nasal spray,suspension duloxetine 60 mg capsule,delayed 60 mg PO QAM #30 caps 09/26/23 05/04/24 Rx release (Cymbalta) olcvyv-retbijaa-avuhiya 1 cap PO TID #90 caps 09/26/23 05/04/24 Rx 6,000-19,000-30,000 unit capsule,delayed rel (Creon) flash glucose sensor (FreeStyle 04/04/24 05/04/24 History Janny 2 Sensor kit) gabapentin 300 mg capsule See Rx Instructions .Route .COMPLEX 04/04/24 05/04/24 History insulin aspart U-100 100 unit/mL 0 sliding scale dose subcut AC 04/04/24 05/04/24 History (3 mL) subcutaneous pen (Novolog FlexPen U-100 Insulin aspart) insulin glargine 100 unit/mL (3 28 unit subcut QPM 04/04/24 05/04/24 History mL) subcutaneous pen (Lantus Solostar U-100 Insulin) melatonin 5 mg tablet 5 mg PO HS PRN Sleep 04/04/24 05/04/24 History triamcinolone acetonide 0.1 % 1 applic topical DAILY PRN 04/04/24 05/04/24 History topical cream psoriasis B-complex with vitamin C 1 cap PO DAILY 05/04/24 05/04/24 History magnesium oxide 500 mg PO DAILY 05/04/24 05/04/24 History Past Med/Surg History Problem List (Updated 05/04/24 @ 06:11 by Tanisha Nelson MD) Alcohol abuse with withdrawal (Acute) Alcoholic hepatitis (Acute) MDD (major depressive disorder), recurrent, in partial remission Medical marijuana use Feeling suicidal (Acute) Alcohol intoxication (Acute) Alcohol intoxication (Acute) Alcohol use disorder Vitamin D deficiency (Acute) Psoriasis (Acute) IPMN (intraductal papillary mucinous neoplasm) Imaging July 2020 follow-up yearly Encephalomalacia (Acute) History of GI bleed Diabetic peripheral neuropathy associated with type 1 diabetes mellitus Liver cirrhosis (Acute) Exocrine pancreatic insufficiency Insomnia Dysesthesia Diabetes type 1, uncontrolled (Acute) Dyslipidemia Alcohol abuse (Acute) Below knee amputation Medical History Oral thrush Thrombocytopenia Tobacco dependence Depression with anxiety Unable to establish with psychiatrist Hydrosalpinx PT UNAWARE SBO (small bowel obstruction) Resolved Lipoma NECK Polycystic ovarian syndrome Surgical History History of left below knee amputation Amputation of left lower extremity TO APPROX MID CALF History of ankle surgery 02/2019 left ankle ex fix, grade 2 view with MAC 3 and 7.0 ETT History of tooth extraction Family History Uncle Diabetes Mother Breast cancer Sister Breast cancer Father Prostate cancer Other Family history of breast cancer in mother Family history of breast cancer in sister Denies family history of Ovarian cancer Myocardial infarction Colorectal cancer Social History Smoking Status: Current every day smoker Tobacco Type: Cigarettes packs per day: 0.75; Cigarettes Per Day: 10; Second Hand Exposure: Yes; Do You Dip or Chew Tobacco: No; Hx Alcohol Use: Yes Alcohol type: wine Hx Substance Use: No Preferred Language: Sudanese Communication Ability: Effective Visual Impairment: No 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 Beliefs That Will Affect Care: None marital status: marital status details: no children Current Living Situation: Alone Current Living Situation Comment: unknown current occupational status: disabled Other Information That Helps Us Care for You: No Feels Safe at Home: No Is there a partner from a previous relationship who is making you feel unsafe now?: No Assistive Devices: Wheelchair Review of Systems Review of Systems: As per HPI, all other systems reviewed and negative Physical Exam Physical Exam: GENERAL: Comfortable, tremulous, no respiratory distress SKIN: Normal color, warm HEENT: [place] palpebral conjunctivae, no ptosis, dry buccal mucosa NECK : Supple, no tenderness CHEST : CTA, no tenderness HEART : Tachycardic, no obvious murmurs ABDOMEN: Some distention, nontender EXTREMITIES : Left BKA stump, no other conspicuous deformities noted NEUROLOGIC : Coherent, no facial asymmetry, tremulous Results & Data Results & Data Vital Signs (Past 12 Hours) Vital Signs Temp Pulse Pulse Resp BP BP Pulse Ox 05/04/24 02:24 103 H 17 110/88 97 05/04/24 02:10 105 H 18 139/86 94 05/04/24 01:48 95 05/04/24 01:06 93 05/04/24 01:05 95 H 18 139/86 93 05/04/24 01:03 95 H 14 93 05/04/24 00:33 103 H 14 97 05/04/24 00:33 105 H 05/03/24 22:52 36.9 C 101 H 18 139/86 90 O2 Del Method 05/04/24 02:24 05/04/24 02:10 Room Air 05/04/24 01:48 05/04/24 01:06 Room Air 05/04/24 01:05 Room Air 05/04/24 01:03 05/04/24 00:33 05/04/24 00:33 05/03/24 22:52 Room Air Laboratory Results Laboratory Results WBC 4.95 K/ul (4.8-10.8) 05/03/24 23:30 RBC 4.82 M/uL (4.20-5.40) 05/03/24 23:30 Hgb 14.9 g/dl (12.0-16.0) 05/03/24 23:30 POC Hgb 16.3 g/dl (12.0-16.0) H 05/03/24 23:41 Hct 42.9 % (37.0-47.0) 05/03/24 23:30 POC Hct 48 % (37-47) H 05/03/24 23:41 MCV 89.0 fL (80.0-100.0) 05/03/24 23:30 MCH 30.9 pg (25.0-34.0) 05/03/24 23:30 MCHC 34.7 g/dL (32.0-36.0) 05/03/24 23:30 RDW Std Deviation 43.7 fL (36.4-46.3) 05/03/24 23:30 RDW Coeff of Ethel 13.3 % (11.5-14.5) 05/03/24 23:30 Plt Count 77 K/uL (130-400) L 05/03/24 23:30 MPV 10.5 fL (9.4-12.4) 05/03/24 23:30 Immature Gran % (Auto) 0.6 % 05/03/24 23:30 Neut % (Auto) 78.4 % 05/03/24 23:30 Lymph % (Auto) 16.6 % 05/03/24 23:30 [place] % (Auto) 3.2 % 05/03/24 23:30 Eos % (Auto) 0.6 % 05/03/24 23:30 Baso % (Auto) 0.6 % 05/03/24 23:30 Neut # (Auto) 3.88 K/uL (1.40-6.50) 05/03/24 23:30 Lymph # (Auto) 0.82 K/uL (1.20-3.40) L 05/03/24 23:30 [place] # (Auto) 0.16 K/uL (0.11-0.59) 05/03/24 23:30 Eos # (Auto) 0.03 K/uL (0.00-0.50) 05/03/24 23:30 Baso # (Auto) 0.03 K/uL (0.00-0.20) 05/03/24 23:30 Immature Gran # (Auto) 0.03 K/uL (0.01-0.20) 05/03/24 23:30 POC Sodium 135 mmol/L (135-144) 05/03/24 23:41 Sodium 136 mmol/L (136-145) 05/03/24 23:30 POC Potassium 4.0 mmol/L (3.3-5.0) 05/03/24 23:41 Potassium 3.9 mmol/L (3.5-5.1) 05/03/24 23:30 POC Chloride 94 mmol/L (101-112) L 05/03/24 23:41 Chloride 92 mmol/L (98-107) L 05/03/24 23:30 Carbon Dioxide 29 mmol/L (21-32) 05/03/24 23:30 POC Total CO2 27 mmol/L (24-31) 05/03/24 23:41 Anion Gap 15 (3-11) H 05/03/24 23:30 POC Anion Gap 19.0 mmol/L (16-25) 05/03/24 23:41 POC BUN 11 mg/dl (7-18) 05/03/24 23:41 BUN 12 mg/dl (6-23) 05/03/24 23:30 Creatinine 0.68 mg/dl (0.6-1.2) 05/03/24 23:30 POC Creatinine 1.4 mg/dl (0.6-1.3) H 05/03/24 23:41 Est Cr Clr Drug Dosing 84.4 ml/min 05/03/24 23:30 Est GFR ( Amer) 111.8 ml/min 05/03/24 23:30 Est GFR (Non-Af Amer) 96.4 ml/min 05/03/24 23: BUN/Creatinine Ratio 17.6 (10-20) 05/03/24 23:30 Glucose 217 mg/dl (70-99(Fasting)) H 05/03/24 23:30 POC Glucose 205 mg/dl (70-99) H 05/03/24 23:25 POC Glucose (other) 215 mg/dl (70-99) H 05/03/24 23:41 Calcium 8.9 mg/dl (8.6-10.3) 05/03/24 23:30 POC Ioniz Calcium Bri 0.96 mmol/l (1.12-1.32) L 05/03/24 23:41 Magnesium 2.1 mg/dl (1.7-2.4) 05/03/24 23: Total Bilirubin 0.9 mg/dl (0.2-1.0) 05/03/24 23: AST 375 U/L (13-39) H 05/03/24 23:30 ALT 176 U/L (7-52) H 05/03/24 23:30 Alkaline Phosphatase 255 U/L (34-104) H 05/03/24 23:30 Total Protein 7.6 gm/dl (6.0-8.3) 05/03/24 23: Albumin 4.7 gm/dl (3.4-5.0) 05/03/24 23: Globulin 2.9 gm/dl (2.5-4.0) 05/03/24 23: Albumin/Globulin Ratio 1.6 (0.9-2) 05/03/24 23: TSH 1.644 uIu/ml (0.300-4.500) 05/03/24 23:30 Urine Color Yellow 05/04/24 00:11 Urine Appearance Cloudy (Clear) A 05/04/24 00:11 Urine pH 6.0 (4.5-7.5) 05/04/24 00:11 Ur Specific [place] 1.019 (1.000-1.030) 05/04/24 00:11 Urine Protein 1+ (Negative) H 05/04/24 00:11 Urine Glucose (UA) Negative (Negative) 05/04/24 00:11 Urine Ketones 1+ (Negative) H 05/04/24 00:11 Urine Blood Trace (Negative) H 05/04/24 00:11 Urine Nitrite Negative (Negative) 05/04/24 00:11 Urine Bilirubin Negative (Negative) 05/04/24 00:11 Urine Urobilinogen Negative (Negative) 05/04/24 00:11 Ur Leukocyte Esterase Negative (Negative) 05/04/24 00:11 Urine WBC (Auto) 0-5 /hpf (0-5) 05/04/24 00:11 Urine RBC (Auto) 3-5 /hpf (0-2) H 05/04/24 00:11 U Hyaline Cast (Auto) 0-2 /lpf (0-2) 05/04/24 00:11 U Epithel Cells (Auto) 6-10 /hpf (0-2) H 05/04/24 00:11 Urine Bacteria (Auto) 1+ (None Seen) H 05/04/24 00:11 Ethyl Alcohol mg/dL 380.1 mg/dl (<10.0) H 05/03/24 23:30 Impressions Abdomen/Pelvis CT 05/04/24 01:19 Exam(s): CT ABDOMEN + PELVIS With Contrast IV Amt: 93 ML OPTIRAY 320 EXAM: CT Abdomen and Pelvis With Intravenous Contrast CLINICAL HISTORY: Reason for exam: RUQ pain, transaminitis, rubina vs CBD stone. TECHNIQUE: Axial computed tomography images of the abdomen and pelvis with intravenous contrast. Automated exposure control was utilized for the study. A dose lowering technique was utilized adhering to the principles of ALARA. CONTRAST: Patient received 93 ML OPTIRAY 320 of IV contrast COMPARISON: March 10, 2023. FINDINGS: Lung bases: Unremarkable. No mass. No consolidation. Mediastinum: Small hiatal hernia. ABDOMEN: Liver: Hepatic steatosis. Gallbladder and bile ducts: Unremarkable. No calcified stones. No ductal dilation. Pancreas: Atrophy and calcifications in the pancreas, consistent with sequelae of pancreatitis (chronic pancreatitis). Cystic focus in the pancreatic head measures 2.5-2.0 cm, stable when compared to March 10, 2023. No ductal dilation. Spleen: Unremarkable. No splenomegaly. Adrenals: Unremarkable. No mass. Kidneys and ureters: Unremarkable. No solid mass. No hydronephrosis. Stomach and bowel: Diverticulosis, without acute diverticulitis. No small bowel obstruction. No free intraperitoneal air. PELVIS: Appendix: No findings to suggest acute appendicitis. Bladder: Unremarkable. No mass. Reproductive: Unremarkable as visualized. ABDOMEN and PELVIS: Intraperitoneal space: Unremarkable. No free air. No significant fluid collection. Bones/joints: Degenerative changes of the spine. No acute fracture. No dislocation. Soft tissues: Unremarkable. Vasculature: Atherosclerotic changes of the aorta. No abdominal aortic aneurysm. Lymph nodes: Unremarkable. No enlarged lymph nodes. IMPRESSION: 1. Atrophy and calcifications in the pancreas, consistent with sequelae of pancreatitis (chronic pancreatitis). 2. Diverticulosis, without acute diverticulitis. No small bowel obstruction. No free intraperitoneal air. 3. Small hiatal hernia. Electronically signed by: Brody Kumar MD 05/04/24 02:42 AM Diagnostic Findings EKG as per my interpretation :Rate 100, NSR, normal axis, no ischemia
[2024-05-04] MEDS ORDERED: Ativan IV Alcohol Withdrawal--Active Protocol IV PRN (04:09)
[2024-05-04] MEDS ORDERED: LORazepam 3 MG in SYRINGE 1.5 ML IV PRN (04:09)
[2024-05-04] MEDS ORDERED: LORazepam 2 MG in SYRINGE 1 ML IV PRN (04:09)
[2024-05-04] MEDS ORDERED: LORazepam 1 MG in SYRINGE 0.5 ML IV PRN (04:09)
[2024-05-04] MEDS ORDERED: chlordiazePOXIDE ALCOHOL WITHDRAWL 25MG PO STA (04:09)
[2024-05-04] MEDS: PROMETHAZINE 6.25 MG/50.25 ML BAG IV STA (04:10)
[2024-05-04] MEDS: chlordiazePOXIDE HCl 25 MG CAP PO SCH (04:27)
[2024-05-04] MEDS: MULTI-VITAMIN INFUSION 10 ML, THIAMINE HCL 100 MG, FOLIC ACID 1 MG in SODIUM CHLORIDE 0... IV ONE (04:29)
[2024-05-04] MEDS ORDERED: ACETAMINOPHEN 500 MG TAB PO PRN (04:42)
--- OUTSIDE RECORDS SUMMARY | 2024-05-04 04:54 | External Medical Summary | Summary of Care ---
Author Name Unknown Organization [facility] Address [address] [place] [address] Phone [phone] Care Team Providers Care Cutting Department Supervisor Name Role Phone Ingrid Mejias PA-C Primary Care Provider [phone] Reason for Referral * Evaluate & Treat - Unlimited Visits (Within 30 days (routine)) - Pending Review Specialty Diagnoses / Procedures Referred By Sonya rae Referred To Contact Psychology Diagnoses Blood alcohol level of 240 mg/100 ml or more Ingrid Mejias PA-C [address] [place] [id number] Referral ID Status Reason Start Date Expiration Date Visits Requested Visits Authorized [id number] Pending Review Specialty Services Required 04/13/[phone] Question Answer Referral Priority Within 30 days (routine) Where should this appointment be scheduled? [facility] Is this referral for medication management? No Reason for Referral: Coping with Chronic Medical Condition Specific Condition? Other (Comment) Reason for Visit * Reason Comments Hospital Follow-Up Patient is here afte r being discharged from [facility] on 04/05 for suicidal ideation. Patient states that her friend found a note which he thought was a suicide note but it was just a part of her will. Encounter Details Date Type Department Care Team (Late st Contact Info) Description 04/13/2024 10:20 AM EDT Office Visit [facility] [place] [address] [place] [address] Ingrid Mejias PA-C [address] [place] [id number] Blood alcohol level of 240 mg/100 ml or more*; Type 2 diabetes mellitus with diabetic mononeuropathy, with long-term current use of insulin ([facility]); Medical marijuana use Allergies Active Allergy Reactions Criticality Noted Date Comments Lorazepam 05/20/2016 Haloperidol Lactate 05/20/2016 documented as of this encounter (statuses as of 04/13/2024) Medications Medication Sig Dispensed Refills Start Date End Date Status Cyanocobalamin 2500 MCG CHEW Take 1,000 mcg by mouth. Active Multiple Vitamins-Minerals (MULTIVITAMIN ADULT) TABS Take by mouth. Active fluticasone (FLONASE) 50 MCG/ACT nasal spray Administer 1 [place] into nostril in the morning. Active triamcinolone acetonide (ARISTOCORT) 0.1 % cream apply to PSORIASIS ON BODY TWICE DAILY FOR 2 WEEKS, THEN DAILY NEEDED 0 05/15/2016 Active Creon 6000-92808 UNIT Oral Capsule Delayed Release Particles Take 1 Capsule by mouth in the morning and 1 Capsule at noon and 1 Capsule before bedtime. 09/30/2023 Active NovoLOG FlexPen ReliOn 100 UNIT/ML Subcutaneous Solution Pen-injector Sliding scale based on blood sugars; prior to meals. 10/20/2023 Active Lantus SoloStar 100 UNIT/ML Subcutaneous Solution Pen-injector Inject 28 Units under the skin every evening. 01/14/2024 Active DULoxetine HCl 60 MG Oral Capsule Delayed Release Particles (Cymbalta) Take 1 Capsule by mouth in the morning. 02/29/2024 Active Magnesium 500 MG Oral Tablet Take 1 Tablet by mouth in the morning. Active FreeStyle Janny 2 Sensor Inject 1 Units into the skin once. 02/29/2024 Active PX B Complex/Vitamin C Oral Tablet Take 1 Tablet by mouth in the morning. Active DULoxetine HCl 30 MG Oral Capsule Delayed Release Particles (Cymbalta)Indicat ions:CARMELINA (generalized anxiety disorder) Take 1 Capsule by mouth in the morning. 30 Capsule 5 03/31/2024 Active Additional Information Patient not taking.Reported on 04/13/2024 Gabapentin 300 MG Oral Capsule (Neurontin) 1 cap in am, 1 capt noon, 2 caps at bedtime 120 Capsule 5 03/31/2024 Active Melatonin 5 MG Oral Capsule Take 1 Capsule by mouth at bedtime. 04/13/2024 Active Folic Acid 1 MG Oral Tablet Take 1 Tablet by mouth in the morning. 04/13/2024 Active Melatonin 5 MG Tablet Take 1 Capsule by mouth at bedtime. 4 Discontinue d(Refill) Folic Acid 1 MG Oral Tablet Take 1 Tablet by mouth in the morning. 07/01/2015 4 Discontinue d(Refill) documented as of this encounter (statuses as of 04/13/2024) Active Problems Problem Noted Date Diagnosed Date Medical marijuana use 03/31/2024 History of amputation of left leg through tibia and fibula 10/20/2023 Type 2 diabetes mellitus wit h diabetic mononeuropathy, with long-term current use of insulin 10/20/2023 documented as of this encounter (statuses as of 04/13/2024) Immunizations Name Administration Dates Next Due TDAP [...] Sign Reading Time Taken Comments Blood Pressure 132/80 04/13/2024 10:12 AM EDT Pulse 70 04/13/2024 10:12 AM EDT Temperature 36.1 C (96.9 F) 04/13/2024 10:12 AM E DT Respiratory Rate 16 04/13/2024 10:12 AM EDT Oxygen Saturation 94% 04/13/2024 10:12 AM EDT Inhaled Oxygen Concentration - - Weight - - Height 168.9 cm (5' 6.5") 04/13/2024 10:12 AM ED T Body Mass Index - - documented in this encounter Progress Notes * Ingrid Mejias PA-C - 04/13/2024 10:38 AM EDT Images from the original note were not included. History of Present Illness Gem Chiu is a 58 year old female that presents for Hospital Follow-Up (Patient is here after being discharged from [facility] on 04/05 for suicidal ideation. Patient states that her friend found a note which he thought was a suicide note but it was just a part of her will. ) Patient is a 58 year old female who presents for a follow up on an ER visit on 04/04. Friend found anote which was part of a will. So the friend called the police and a 302 was done. She was drinking at the time. States she doesn't drink consistently, but, when she does it is always to excess. No etoh since discharged. Feeling well. Appetite good Sleep normal Physical Exam Vitals: 04/13/24 1012 Temp: 36.1 C (96.9 F) Pulse: 70 Resp: 16 SpO2: 94% BP: 132/80 BP Readings from Last 3 Encounters: 04/13/24 132/80 03/31/24 144/88 01/14/24 124/68 General: alert, healthy, no distress, well nourished, well developed, comfortable, and cooperative Head: Normocephalic, No masses, lesions, tenderness or abnormalities Eye Exam: PERRLA, extraocular movements intact, conjunctiva are pink and non- injected, sclera clear Neck: supple, no adenopathy, no bruits, thyroid normal size, non-tender, without nodularity Heart: regular rate & rhythm, no murmur, and no gallops Lungs: chest symmetric with normal AP diameter, no chest deformities noted, normal respiratory rateand rhythm, no chest wall tenderness, diaphragmatic excursion normal, lungs clear to auscultation Abdomen: abdomen soft, non-tender, normal bowel sounds, no masses or organomegaly, no rebound or guarding, and no CVA tenderness Neuro Exam: alert & oriented x 3 with fluent speech, no focal motor/sensory deficits I have reviewed the following results: Hemoglobin A1C, CBC, and BMP Assessment and Plan Blood alcohol level of 240 mg/100 ml or more (Primary) - ADULT/PEDS PSYCHOLOGY REFERRAL OP Type 2 diabetes mellitus with diabetic mononeuropathy, with long-term current use of insulin (HCC) Medical marijuana use Other orders - Folic Acid 1 MG Oral Tablet; Take 1 Tablet by mouth in the morning. Check-out note: Schedule psychology Wrap-Up Time: I spent a total of 30-39 minutes (exact time 35 mins) on the date of service in preparation, delivery, and documentation of the care provided to Gem Chiu excluding any time spent in the performance of separately billed services. documented in this encounter Nursing Notes * Lisa Gaitan MED ASSIST - 04/13/2024 10:10 AM EDT Chief Complaint Patient presents with Hospital Follow-Up Patient is here after being discharged from [facility] on 04/05 for suicidal ideation. Patient states that her friend found a note which he thought was a suicide note but it was just a part of her will. documented in this encounter Plan of Treatment Upcoming Encounters Date Type Department Care Team (Late st Contact Info) Description 05/12/2024 2:20 PM EDT Office Visit [facility] [address] [facility] [place] [address] Ingrid Mejias PA-C [address] [facility] [place] [id number] 05/26/2024 10:30 AM EDT Imaging Radiology, [facility] [address] [facility] [place] [address] 12/28/2024 10:30 AM EDT Office Visit Gynecology/Obstetrics [facility] [address] [place] [id number] Sandra Kauffman CRNP [address] [place] [address] Scheduled Referrals Name Type Priority Associated Diagnoses Orde r Schedule ADULT/PEDS PSYCHOLOGY REFERRAL OP Referral Within 30 days (routine) Blood alcohol level of 240 mg/100 ml or more Ordered: 04/13/2024 Health Maintenance Due Date Last Done Comments DISCUSS TOBACCO CESSATION (REFER TO SMARTSET #0234) 1965 Pneumococcal Vaccine: Pediatrics (0 to 5 Years) and At-Risk Patients (6 to 64 Years) (1 of 2 - PCV) 12/26/1971 Depression Screening 1977 HIV Screening 1980 Albumin/Creatinine Ratio 12/26/1983 Hepatitis C Screening 12/26/1983 Hepatitis B Vaccine (1 of 3 - 19+ 3-dose series) 1984 HPV/Co-Test 12/26/1995 Cologuard 2010 Colonoscopy 2010 Colorectal Cancer Screening 2010 Fecal Occult Blood Test 2010 Sigmoidoscopy 2010 Zoster Vaccines (1 of 2) 12/26/2015 Cervical Cancer Screening 05/20/2019 Pap Smear 05/20/2019 05/20/2016 COVID-19 Vaccine (1 - 2022-2 4 season) 2023 Influenza Vaccine (FLU shot) (#1) 2024 HbA1c 07/15/2024 01/14/2024 DTaP,Tdap,and Td Vaccines (2 - Td or Tdap) 08/20/2024 08/20/2014 Diabetic Eye Exam 01/13/2025 01/14/2024 Diabetic Foot Exam 01/13/2025 01/14/2024 GFR 01/13/2025 01/14/2024, 05/20/2016 Mammogram 02/23/2025 02/24/2024, 06/17/2016, 05/31/2016 Lipid Panel 01/13/2029 01/14/2024 HPV (Gardasil) Vaccine Aged Out No lo nger eligible based on patient's age to complete this topic MENINGOCOCCAL (MENACTRA/MENVEO) Aged Out No longer eligible b ased on patient's age to complete this topic documented as of this encounter Medical Devices Not on filedocumented as of this encounter Visit Diagnoses Diagnosis Blood alcohol level of 240 mg/100 ml or more- Primary Excessive blood level of alcohol Type 2 diabetes mellitus with diabetic mononeuropathy, with long-term current use of insulin (HCC) Medical marijuana use Encounter for long-term (current) use of other medications documented in this encounter Care Teams Cutting Department Supervisor Relationship Specialty Start Date End Date Ingrid Mejias PA-C [address] [facility] [place] [id number] PCP - General Physician Csr 01/14/24 documented as of this encounter
--- OUTSIDE RECORDS SUMMARY | 2024-05-04 04:54 | External Medical Summary | Summary of Care ---
Author Name Unknown Organization [facility] Address [address] [place] [address] Phone [phone] Care Team Providers Care Cigarette Lighter Repairer Name Role Phone Ingrid Mejias PA-C Primary Care Provider [phone] Reason for Visit * Reason Onset Date Comments Scan To Read 01/14/2024 Encounter Details Date Type Department Care Team (Late st Contact Info) Description 01/14/2024 Telephone Family Practice [facility] [place] [address] Breanna Neal DO [address] [facility] [place] [address] Scan To Read Allergies Active Allergy Reactions Criticality Noted Date Comments Lorazepam 05/20/2016 Haloperidol Lactate 05/20/2016 documented as of this encounter (statuses as of 04/14/2024) Medications Medication Sig Dispensed Refills Start Date End Date Status Cyanocobalamin 2500 MCG CHEW Take 1,000 mcg by mouth. Active Multiple Vitamins-Minerals (MULTIVITAMIN ADULT) TABS Take by mouth. Active fluticasone (FLONASE) 50 MCG/ACT nasal spray Administer 1 [place] into nostril in the morning. 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 10/20/2023 Type 2 diabetes mellitus wit h diabetic mononeuropathy, with long-term current use of insulin 10/20/2023 documented as of this encounter (statuses as of 04/14/2024) Immunizations Name Administration Dates Next Due TDAP [...] encounter Miscellaneous Notes * Telephone Encounter - Riki Escalante MD - 01/14/2024 4:21 PM EDT Retinal Scan Imaging [place] [id number] Retinal Scan Interpretation: There is no retinopathy in both eyes Diabetes Retinal Imaging Care Plan: The retinal scan results are normal - I will forward this encounter to the Ophthalmology DM Letter Pool [[id number]], they will send a normal retinal scan letter to the patient, and the patient will be seen back for a yearly scan. Riki Escalante MD 01/14/2024 4:21 PM * Telephone Encounter - Corrie Sanders RN - 01/14/2024 12:19 PM EDT A Diabetic Telemed Eye image was taken and requires your interpretation for Dr Neal . Please check your inbasket for image. Patient prefers to be seen at [facility] if a follow-up appointment is needed. documented in this encounter Plan of Treatment Upcoming Encounters Date Type Department Care Team (Late st Contact Info) Description 05/12/2024 2:20 PM EDT Office Visit Family Practice [facility] [address] [place] [address] Ingrid Mejias PA-C [address] [place] [address] 05/26/2024 10:30 AM EDT Imaging Radiology, [facility] [address] [place] [address] 12/28/2024 10:30 AM EDT Office Visit Gynecology/Obstetrics [facility] [address] [place] [address] Sandra Kauffman CRNP [address] [place] [address] Health Maintenance Due Date Last Done Comments DISCUSS TOBACCO CESSATION (REFER TO SMARTSET #[id number]) 1965 Pneumococcal Vaccine: Pediatrics (0 to 5 [...] filedocumented as of this encounter Care Teams Cigarette Lighter Repairer Relationship Specialty Start Date End Date Randell January CECIL Pearson [address] [place] [address] PCP - General Physician Clinical Training Coordinator 01/14/24 documented as of this encounter
--- OUTSIDE RECORDS SUMMARY | 2024-05-04 04:54 | External Medical Summary | Summary of Care ---
Author Name Unknown Organization [facility] Address [address] [place] [place] [address] Phone [phone] Care Team Providers Care Co Founder And Chairman Name Role Phone Ingrid Mejias PA-C Primary Care Provider [phone] Reason for Visit * Reason Onset Date Comments Hospital Follow-Up 04/06/2024 [facility] 04/05 Encounter Details Date Type Department Care Team (Late st Contact Info) Description 04/06/2024 Telephone Ancillary [facility] [place] [address] [place] [address] Judy Gaspar, RN Hospital Follow-Up ([facility] 04/05) Allergies Active Allergy Reactions Criticality Noted Date Comments Lorazepam 05/20/2016 Haloperidol Lactate 05/20/2016 documented as of this encounter (statuses as of 04/07/2024) Medications Medication Sig Dispensed Refills Start Date End Date Status Melatonin 5 MG Tablet Take 1 Capsule by mouth at bedtime. Active Cyanocobalamin 2500 MCG CHEW Take 1,000 mcg by mouth. Active Multiple Vitamins-Minerals (MULTIVITAMIN ADULT) TABS Take by mouth. Active fluticasone (FLONASE) 50 MCG/ACT nasal spray Administer 1 [place] into nostril in the morning. Active triamcinolone acetonide (ARISTOCORT) 0.1 % cream apply to PSORIASIS ON BODY TWICE DAILY FOR 2 WEEKS, THEN DAILY NEEDED 0 05/15/2016 Active Folic Acid 1 MG Oral Tablet Take 1 Tablet by mouth in the morning. 07/01/2015 Active Creon [id number] UNIT Oral Capsule Delayed Release Particles Take [...] 30 MG Oral Capsule Delayed Release Particles (Cymbalta)Indicatio ns:CARMELINA (generalized anxiety disorder) Take 1 Capsule by mouth in the morning. 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 (Household - for ages [...] encounter Miscellaneous Notes * Telephone Encounter - Judy Gaspar RN - 04/07/2024 1:40 PM EDT Transitions of Care Note Reason for Referral:Recent Admission Phone visit for follow up: MARY ANN Admitted to: [facility], Date: 04/04 Discharged to: home, Date: 04/05 Diagnosis driving hospitalization: Feeling suicidal Source/Contact: Patient SUBJECTIVE Consent: Verbal consent for review of hospital discharge: Yes REVIEW OF SYSTEMS Patient/Other Reports: Current patient/caregiver problems or concerns: none at this time CV: Denies problems Pulmonary: Denies problems Chills/Sweats/Fever:Denies chills/sweats Denies fever Appetite:Denies problems such as nausea, vomiting, burning, decreased appetite Current diet: as before Bowel: denies problems Bladder: denies problems Wound (If applicable): N/A Pain:Denies Sleep:Denies problems FUNCTIONAL STATUS: ADL'S: Needs Assistance With:N/A as pt is independent IADL'S: Needs Assistance With:N/A as pt is independent Cognitive and Mental Health: denies problems, alert and oriented x 3, and able to communicate, understand instructions, process information. MEDICATION RECONCILIATION Medications: No new medications or medication changes OBJECTIVE ASSESSMENT Medication Risk Assessment: No risks identified Did patient fail outpatient treatment? No Discharge instructions available for review? Yes PLAN Symptom Monitoring Interventions:Member/caregiver education - signs and symptoms to contact PrimaryCare (DO NOT DELETE-Three jay symptoms patient is to report to PCP) 1. Feeling suicidal - pt has crisis information and is not verbalizing any s/s today 2. Feeling lightheaded/dizzy 3. N/V Crisis ManagerFederal Law Clerk of Care interventions/Action Plan: Medication reconciliation and 5 - 7 day follow-up with PCP in place - Date: 04/13 Educated on role of MARY ANN completed with patient/caregiver. Educated patient/caregiver on patient right to have input on MARY ANN plan of care. Verification of Home Health/DME if indicated: NO Identified Care Gaps: Yes Care Gaps closed this call: Appointment made or confirmed and Transition of Care follow-up communication Re-evaluation of Plan of Care and progress towards goals achievement: Patient education this visit: Verbal, as above Plan to follow-up as previously scheduled, instructed to call Primary Care Provider with change in symptoms or as needed before next follow-up, discharge needs met, verbalizes understanding and agrees with plan. Judy Gaspar RN * Telephone Encounter - Judy Gaspar RN - 04/06/2024 10:26 AM EDT Attempted Phone Call First Attempt Call Outcome Left Voicemail/Message on home phone. Cell phone voicemail is full documented in this encounter Plan of Treatment Upcoming Encounters Date Type Department Care Team (Late st Contact Info) Description 04/13/2024 10:20 AM EDT Office Visit [facility] [address] [facility] [place] [address] Ingrid Mejias PA-C [address] [facility] [address] [place] [address] 05/12/2024 2:20 PM EDT Office Visit [facility] [address] [facility] [address] [place] [address] Ingrid Mejias PA-C [address] [place] [address] 05/26/2024 10:30 AM EDT Imaging Radiology, [place] [address] [facility] [place] [address] 12/28/2024 10:30 AM EDT Office Visit Gynecology/Obstetrics [facility] [address] [place] [address] Sandra Kauffman CRNP [address] [place] [address] Health Maintenance Due Date Last Done Comments DISCUSS TOBACCO CESSATION (REFER TO SMARTSET #[id number]) 1965 Pneumococcal Vaccine: Pediatrics (0 to 5 [...] filedocumented as of this encounter Care Teams Co Founder And Chairman Relationship Specialty Start Date End Date Randell Ingrid CECIL Pearson [address] [place] [address] PCP - General Physician Supervisor [employer]ing [employer] 01/14/24 documented as of this encounter
[2024-05-04] MEDS: NICOTINE 14 MG/24 HR PATCH TD SCH (05:14)
[2024-05-04 05:15] LABS: Basophils # (auto) 0.04 K/uL (0.00-0.20); Basophils % (auto) 0.6 %; Eosinophils # (auto) 0.09 K/uL (0.00-0.50); Eosinophils % (auto) 1.4 %; Hematocrit (blood only) 35.5 % (37.0-47.0); Hemoglobin 12.3 g/dl (12.0-16.0); Immature Granulocytes # (auto) 0.05 K/uL (0.01-0.20); Immature Granulocytes % (auto) 0.8 %; Lymphocytes # (auto) 1.24 K/uL (1.20-3.40); Lymphocytes % (auto) 19.8 %; Mean Corpuscular Hemoglobin 30.7 pg (25.0-34.0); Mean Corpuscular Hgb Conc 34.6 g/dL (32.0-36.0); Mean Corpuscular Volume 88.5 fL (80.0-100.0); Mean Platelet Volume 10.7 fL (9.4-12.4); Monocytes # (auto) 0.18 K/uL (0.11-0.59); Monocytes % (auto) 2.9 %; Neutrophils # (auto) 4.67 K/uL (1.40-6.50); Neutrophils % (auto) 74.5 %; Platelet Count 68 K/uL (130-400); RDW Coefficient of Variation 13.4 % (11.5-14.5); RDW Standard Deviation 43.3 fL (36.4-46.3); Red Blood Count 4.01 M/uL (4.20-5.40); White Blood Count 6.27 K/ul (4.8-10.8)
[2024-05-04 05:20] LABS: Albumin Globulin Ratio 1.7 (0.9-2); Albumin Level 3.8 gm/dl (3.4-5.0); BUN Creatinine Ratio 18.2 (10-20); Bilirubin,Total 1.1 mg/dl (0.2-1.0); Calcium 7.8 mg/dl (8.6-10.3); Creatinine Clr Calc Pharmacy 104.4 ml/min; Est GFR (African American) 119.8 ml/min; Est GFR (Non-African American) 103.4 ml/min; Globulin 2.3 gm/dl (2.5-4.0); Total Protein 6.1 gm/dl (6.0-8.3)
[2024-05-04] MEDS: LORazepam 1 MG in SYRINGE 0.5 ML IV STA (05:21)
[2024-05-04 05:36] LABS: INR 0.9 (0.9-1.1)
[2024-05-04] MEDS: oxyCODONE HCL IR 5 MG TAB (IMMEDIATE RELEASE) PO PRN (06:29)
--- NOTE | 2024-05-04 07:04 | Electrocardiogram Report ---
Test Reason : Blood Pressure : / mmHG Vent. Rate : 100 BPM Atrial Rate : 100 BPM P-R Int : 146 ms QRS Dur : 070 ms QT Int : 362 ms P-R-T Axes : 069 073 068 degrees QTc Int : 466 ms Normal sinus rhythm Normal ECG When compared with ECG of 13-MAR-2024 22:27, Criteria for Septal infarct are no longer Present Confirmed by Uche Reid ([id number]) on 05/04/2024 7:03:56 AM Referred By: REFERRED SELF Confirmed By:Uche Reid
--- NOTE | 2024-05-04 07:19 | XRay Report ---
XR chest 1V portable HISTORY: 58 years-old Female weakness acute weakness COMPARISON: 03/13/2024 TECHNIQUE: AP view of the chest FINDINGS: Cardiomediastinal and hilar silhouettes appear normal. Lungs are clear. No pneumothorax or pleural ef fusion. Chronic left-sided rib fractures. IMPRESSION: No acute process. ACT 112: Negative or not required by law. The above report was generated using voice recognition software. It may contain grammatical, syntax o r spelling errors. Electronically signed by: Doug Rich M.D. 05/04/2024 7:17 AM
[2024-05-04] MEDS: GABAPENTIN 300 MG CAP PO SCH ×2 (08:51→21:56)
[2024-05-04] MEDS: FLUTICASONE PROPIONATE NA SPR 16 GM BTL SCH (08:51)
[2024-05-04] MEDS: PANCREAZE (LIPASE 4,200U) CAP PO SCH (08:51)
[2024-05-04] MEDS: DULoxetine HCL 60 MG CAP PO SCH (08:51)
[2024-05-04] MEDS ORDERED: NICOTINE 21 MG/24 HR TDSY TD SCH (09:00)
--- NOTE | 2024-05-04 09:41 | Hospitalist Progress Note ---
Date of Service May 04, 2024 Assessment & Plan (1) Alcohol abuse with withdrawal: Plan Pt is a 58yoF with PMHx significant for DM 2 insulin requiring, anxiety/mood disorder, neuropathy, ongoing tobacco/alcohol abuse presenting for alcohol detoxification. Alcohol Detoxification Chronic alcohol use Transaminitis Alcohol level of 380.1 on admission AWSS, DT precautions Follow LFTs liver ultrasound in AM Continued telemetry monitoring Foreign body, right foot Wound care removed piece of glass from pt's right foot R foot XR ordered Monitor for signs of infection, can begin abx at that time Continue to monitor DM 2 insulin requiring suboptimal control as of recent hemoglobin A1c of 7.6 last month Basal bolus insulin, ISS BG goal 1 10-1 40, carb count coverage anxiety/mood disorder patient not suicidal ongoing tobacco abuse Nicotine patch Diet: clears DVT prophylaxis. SCDs Re: Thrombocytopenia Full code Admission and Anticipated Discharge Date Admission Date: May 04, 2024 Subjective Pt was seen in 287 Was actively throwing up in the room Nauseous States last drink "5 to 10 days ago" later notified by nursing that a piece of glass was removed from her right foot picture of wound in chart. Review of Systems Review of Systems: All systems reviewed & are unremarkable except as noted in Subjective Physical Exam Physical Exam: General: Alert, oriented Psych: sad mood and affect HEENT: NC/AT CV: RRR Resp: Breath sounds clear bilaterally Abdomen: nontender Extremities: L BKA Results & Data Results & Data Vital Signs (Past 12 Hours) Vital Signs Temp Pulse Pulse Resp BP BP Pulse Ox 05/04/24 08:00 36.8 C 104 H 18 147/76 H 95 05/04/24 06:59 98 H 05/04/24 06:33 05/04/24 06:15 37.3 C 97 H 18 129/75 96 05/04/24 06:15 102 H 7 L 05/04/24 05:36 105 H 22 93 05/04/24 05:03 108 H 16 94 05/04/24 05:00 123/63 05/04/24 04:53 37.1 C 105 H 18 136/66 93 05/04/24 04:51 107 H 16 93 05/04/24 04:33 112 H 15 96 05/04/24 04:30 136/66 05/04/24 04:30 136/66 07/30/24 04:30 136/66 05/04/24 04:30 136/66 05/04/24 04:27 117 H 15 96 05/04/24 04:26 113 H 05/04/24 04:18 113 H 18 94 05/04/24 04:15 05/04/24 03:33 96 05/04/24 03:30 139/79 05/04/24 03:30 139/79 05/04/24 03:30 139/79 05/04/24 03:27 102 H 19 94 05/04/24 03:03 104 H 21 97 05/04/24 03:00 123/79 05/04/24 02:54 114 H 14 95 05/04/24 02:42 118 H 20 97 05/04/24 02:42 110/88 05/04/24 02:42 110/88 05/04/24 02:42 110/88 05/04/24 02:24 103 H 17 110/88 97 05/04/24 02:10 105 H 18 139/86 94 05/04/24 01:48 95 05/04/24 01:06 93 05/04/24 01:05 95 H 18 139/86 93 05/04/24 01:03 95 H 14 93 05/04/24 00:33 103 H 14 97 05/04/24 00:33 105 H 05/03/24 22:52 36.9 C 101 H 18 139/86 90 Pulse Ox O2 Del Method O2 Del Method 05/04/24 08:00 Room Air 05/04/24 06:59 05/04/24 06:33 Room Air 05/04/24 06:15 Room Air 05/04/24 06:15 05/04/24 05:36 05/04/24 05:03 Room Air 05/04/24 05:00 05/04/24 04:53 Room Air 05/04/24 04:51 05/04/24 04:33 05/04/24 04:30 05/04/24 04:30 05/04/24 04:30 05/04/24 04:30 05/04/24 04:27 05/04/24 04:26 05/04/24 04:18 05/04/24 04:15 93 Room Air 05/04/24 03:33 05/04/24 03:30 05/04/24 03:30 05/04/24 03:30 05/04/24 03:27 05/04/24 03:03 05/04/24 03:00 05/04/24 02:54 05/04/24 02:42 05/04/24 02:42 05/04/24 02:42 05/04/24 02:42 05/04/24 02:24 05/04/24 02:10 Room Air 05/04/24 01:48 05/04/24 01:06 Room Air 05/04/24 01:05 Room Air 05/04/24 01:03 05/04/24 00:33 05/04/24 00:33 05/03/24 22:52 Room Air Diagnostic Findings Chest X-Ray 05/03/24 23:29 XR chest 1V portable HISTORY: 58 years-old Female weakness acute weakness COMPARISON: 03/13/2024 TECHNIQUE: AP view of the chest FINDINGS: Cardiomediastinal and hilar silhouettes appear normal. Lungs are clear. No pneumothorax or pleural effusion. Chronic left-sided rib fractures. IMPRESSION: No acute process. ACT 112: Negative or not required by law. The above report was generated using voice recognition software. It may contain grammatical, syntax or spelling errors. Electronically signed by: Doug Rich M.D. 05/04/2024 7:17 AM Abdomen/Pelvis CT 05/04/24 01:19 Exam(s): CT ABDOMEN + PELVIS With Contrast IV Amt: 93 ML OPTIRAY 320 EXAM: CT Abdomen and Pelvis With Intravenous Contrast CLINICAL HISTORY: Reason for exam: RUQ pain, transaminitis, rubina vs CBD stone. TECHNIQUE: Axial computed tomography images of the abdomen and pelvis with intravenous contrast. Automated exposure control was utilized for the study. A dose lowering technique was utilized adhering to the principles of ALARA. CONTRAST: Patient received 93 ML OPTIRAY 320 of IV contrast COMPARISON: March 10, 2023. FINDINGS: Lung bases: Unremarkable. No mass. No consolidation. Mediastinum: Small hiatal hernia. ABDOMEN: Liver: Hepatic steatosis. Gallbladder and bile ducts: Unremarkable. No calcified stones. No ductal dilation. Pancreas: Atrophy and calcifications in the pancreas, consistent with sequelae of pancreatitis (chronic pancreatitis). Cystic focus in the pancreatic head measures 2.5-2.0 cm, stable when compared to March 10, 2023. No ductal dilation. Spleen: Unremarkable. No splenomegaly. Adrenals: Unremarkable. No mass. Kidneys and ureters: Unremarkable. No solid mass. No hydronephrosis. Stomach and bowel: Diverticulosis, without acute diverticulitis. No small bowel obstruction. No free intraperitoneal air. PELVIS: Appendix: No findings to suggest acute appendicitis. Bladder: Unremarkable. No mass. Reproductive: Unremarkable as visualized. ABDOMEN and PELVIS: Intraperitoneal space: Unremarkable. No free air. No significant fluid collection. Bones/joints: Degenerative changes of the spine. No acute fracture. No dislocation. Soft tissues: Unremarkable. Vasculature: Atherosclerotic changes of the aorta. No abdominal aortic aneurysm. Lymph nodes: Unremarkable. No enlarged lymph nodes. IMPRESSION: 1. Atrophy and calcifications in the pancreas, consistent with sequelae of pancreatitis (chronic pancreatitis). 2. Diverticulosis, without acute diverticulitis. No small bowel obstruction. No free intraperitoneal air. 3. Small hiatal hernia. Electronically signed by: Brody Kumar MD 05/04/24 02:42 AM
[2024-05-04] MEDS: PROMETHAZINE HCL 6.25 MG in SODIUM CHLORIDE 0.9% 50 ML IV PRN (11:11)
--- NOTE | 2024-05-04 17:10 | XRay Report ---
XR foot RT 2V CLINICAL HISTORY: foreign body removed, r/o further retained objects COMPARISON STUDY: None. FINDINGS: No fracture or dislocation within the right foot. Soft tissue swelling at the forefoot most pronounced at the plantar surface of the first MTP joint. There is a small skin ulceration/laceratio n at the plantar surface of the first MTP joint measuring 3 mm. No metallic foreign bodies identified . There is an overlying bandage at the plantar surface of the first MTP joint which could obscure a s mall foreign body. IMPRESSION: 1. There is an overlying bandage at the plantar surface of the first MTP joint which could obscure a small foreign body. However, no radiopaque foreign bodies identified. 2. Soft tissue swelling with a small skin ulceration/laceration at the plantar surface of the first M TP joint. ACT 112: Negative or not required by law. Electronically signed by: Delano Murry M.D. 05/04/2024 5:09 PM
[2024-05-04] MEDS: MELATONIN 3 MG TAB PO PRN (21:52)
[2024-05-04] MEDS: LANTUS PER UNIT CHARGE SQ SCH (21:57)
[2024-05-05] MEDS: chlordiazePOXIDE HCl 25 MG CAP PO SCH (06:25)
[2024-05-05 06:52] LABS: Basophils # (auto) 0.02 K/uL (0.00-0.20); Basophils % (auto) 0.5 %; Eosinophils # (auto) 0.14 K/uL (0.00-0.50); Eosinophils % (auto) 3.4 %; Hematocrit (blood only) 35.2 % (37.0-47.0); Hemoglobin 12.1 g/dl (12.0-16.0); Immature Granulocytes # (auto) 0.03 K/uL (0.01-0.20); Immature Granulocytes % (auto) 0.7 %; Lymphocytes # (auto) 1.22 K/uL (1.20-3.40); Lymphocytes % (auto) 29.5 %; Mean Corpuscular Hemoglobin 30.9 pg (25.0-34.0); Mean Corpuscular Hgb Conc 34.4 g/dL (32.0-36.0); Mean Corpuscular Volume 89.8 fL (80.0-100.0); Monocytes # (auto) 0.28 K/uL (0.11-0.59); Monocytes % (auto) 6.8 %; Neutrophils # (auto) 2.44 K/uL (1.40-6.50); Neutrophils % (auto) 59.1 %; Platelet Count 47 K/uL (130-400); RDW Coefficient of Variation 13.3 % (11.5-14.5); RDW Standard Deviation 43.6 fL (36.4-46.3); Red Blood Count 3.92 M/uL (4.20-5.40); White Blood Count 4.13 K/ul (4.8-10.8)
[2024-05-05 07:25] LABS: Albumin Globulin Ratio 1.8 (0.9-2); Albumin Level 3.9 gm/dl (3.4-5.0); BUN Creatinine Ratio 10.9 (10-20); Bilirubin,Total 1.8 mg/dl (0.2-1.0); Calcium 8.8 mg/dl (8.6-10.3); Creatinine Clr Calc Pharmacy 104.4 ml/min; Est GFR (African American) 119.8 ml/min; Est GFR (Non-African American) 103.4 ml/min; Globulin 2.2 gm/dl (2.5-4.0); Magnesium 1.7 mg/dl (1.7-2.4); Potassium 3.3 mmol/L (3.5-5.1); Total Protein 6.1 gm/dl (6.0-8.3)
--- NOTE | 2024-05-05 07:43 | Hospitalist Progress Note ---
Date of Service May 05, 2024 Assessment & Plan (1) Alcohol abuse with withdrawal: Plan Pt is a 58yoF with PMHx significant for DM 2 insulin requiring, anxiety/mood disorder, neuropathy, ongoing tobacco/alcohol abuse presenting for alcohol detoxification. #Alcohol Detoxification #Chronic alcohol use #Transaminitis #Alcoholic Steatohepatitis Alcohol level of 380.1 on admission LFTS downtrending AWSS, DT precautions Follow LFTs liver ultrasound with no acute findings Continued telemetry monitoring #Acute thrombocytopenia no signs of bleeding, potentially iso alcoholic hepatitis picture #Foreign body, right foot Wound care removed piece of glass from pt's right foot R foot XR ordered Monitor for signs of infection, can begin abx at that time Continue to monitor #DM 2 insulin requiring suboptimal control as of recent hemoglobin A1c of 7.6 last month Basal bolus insulin #anxiety/mood disorder patient not suicidal #ongoing tobacco abuse Nicotine patch Diet: DM2 DVT prophylaxis. SCDs Re: Thrombocytopenia Full code Admission and Anticipated Discharge Date Admission Date: May 04, 2024 Subjective NAEO Reports feeling much better with strong appetite Adamantly declined resources for alcohol cessation Physical Exam Constitutional: WD/WN, vitals as above Respiratory: normal respiratory effort, lungs clear to auscultation Cardiovascular: RRR, no murmur, no edema Gastrointestinal (Abdomen): normal bowel sounds, soft, nontender, no hepatosplenomegaly Results & Data Results & Data Vital Signs (Past 12 Hours) Vital Signs Temp Pulse Pulse Resp BP Pulse Ox O2 Del Method 05/05/24 07:15 87 05/05/24 02:38 37.5 C 97 H 16 124/72 97 Room Air 05/04/24 23:56 92 H 05/04/24 22:17 37.2 C 89 18 175/87 H 97 Room Air Laboratory Results Short CBC 05/05/24 Range/Units 06:05 WBC 4.13 L (4.8-10.8) K/ul Hgb 12.1 (12.0-16.0) g/dl Hct 35.2 L (37.0-47.0) % Plt Count 47 L (130-400) K/uL BMP 05/05/24 06:05 Sodium 135 L Potassium 3.3 L Chloride 95 L Carbon Dioxide 33 H BUN 6 Creatinine 0.55 L Glucose 57 L Calcium 8.8 Liver Function 05/05/24 Range/Units 06:05 Total Bilirubin 1.8 H D (0.2-1.0) mg/dl AST 186 H (13-39) U/L ALT 120 H (7-52) U/L Alkaline Phosphatase 247 H (34-104) U/L Albumin 3.9 (3.4-5.0) gm/dl Medications Administered Home Medications Medication Instructions Recorded Confirmed Last Taken cyanocobalamin (vitamin B-12) 1,000 mcg PO DAILY 05/10/20 05/04/24 03/10/23 1,000 mcg tablet (Vitamin B-12) multivitamin 1 tab PO DAILY 12/24/21 05/04/24 03/10/23 folic acid 1 mg tablet 1 mg PO DAILY 05/21/22 05/04/24 03/10/23 fluticasone propionate 50 1 spray intranasal DAILY 03/11/23 05/04/24 03/10/23 mcg/actuation nasal spray,suspension duloxetine 60 mg capsule,delayed 60 mg PO QAM #30 caps 09/26/23 05/04/24 Unknown release (Cymbalta) pdwwqd-dekhhapx-zhejjnm 1 cap PO TID #90 caps 09/26/23 05/04/24 Unknown 6,000-19,000-30,000 unit capsule,delayed rel (Creon) flash glucose sensor (FreeStyle 04/04/24 05/04/24 Unknown Janny 2 Sensor kit) gabapentin 300 mg capsule See Rx Instructions .Route .COMPLEX 04/04/24 05/04/24 Unknown insulin aspart U-100 100 unit/mL 0 sliding scale dose subcut AC 04/04/24 05/04/24 Unknown (3 mL) subcutaneous pen (Novolog FlexPen U-100 Insulin aspart) insulin glargine 100 unit/mL (3 28 unit subcut QPM 04/04/24 05/04/24 Unknown mL) subcutaneous pen (Lantus Solostar U-100 Insulin) melatonin 5 mg tablet 5 mg PO HS PRN Sleep 04/04/24 05/04/24 Unknown triamcinolone acetonide 0.1 % 1 applic topical DAILY PRN 04/04/24 05/04/24 Unknown topical cream psoriasis B-complex with vitamin C 1 cap PO DAILY 05/04/24 05/04/24 Unknown magnesium oxide 500 mg PO DAILY 05/04/24 05/04/24 Unknown Active Medications Generic Name Dose Route Start Last Admin Trade Name Freq PRN Reason Stop Dose Admin Lipase/Protease/Amylase 1 cap 05/04/24 09:00 05/05/24 14:11 Pancreaze (Lipase 4,200u) Cap PO 06/03/24 08:59 1 cap TID ARPIT Administration Chlordiazepoxide HCl 25 mg 05/05/24 06:00 05/05/24 14:12 Chlordiazepoxide Hcl 25 Mg Cap PO 05/05/24 22:01 25 mg Q8H ARPIT Administration Cyanocobalamin 1,000 mcg 05/05/24 09:00 05/05/24 09:04 Cyanocobalamin (B-12) 500 Mcg Tablet PO 06/04/24 08:59 1,000 mcg DAILY ARPIT Administration Duloxetine HCl 60 mg 05/04/24 09:00 05/05/24 09:04 Duloxetine Hcl 60 Mg Cap PO 06/03/24 08:59 60 mg QAM ARPIT Administration Fluticasone Propionate 1 sprays 05/04/24 09:00 05/05/24 09:03 Fluticasone Propionate Na Spr 16 Gm Btl NA 06/03/24 08:59 Not Given DAILY ARPIT Folic Acid 1 mg 05/05/24 09:00 05/05/24 09:04 Folic Acid 1 Mg Tab PO 06/04/24 08:59 1 mg DAILY ARPIT Administration Gabapentin 300 mg 05/04/24 09:00 05/05/24 11:55 Gabapentin 300 Mg Cap PO 06/03/24 08:59 300 mg BID@0900,1200 ARPIT Administration Gabapentin 600 mg 05/04/24 21:00 05/04/24 21:56 Gabapentin 300 Mg Cap PO 06/03/24 20:59 600 mg HS ARPIT Administration Promethazine HCl 6.25 mg/ 50.25 mls @ 201 mls/hr 05/04/24 03:49 05/04/24 11:26 Sodium Chloride IV 06/03/24 03:48 Infused Q6H PRN Infusion Nausea And Vomiting Insulin Aspart 0 units 05/05/24 12:30 05/05/24 12:42 Insulin Aspart Per Unit Charge SC 06/04/24 12:29 7 units ACHS ARPIT Administration Melatonin 4.5 mg 05/04/24 04:15 05/04/24 21:52 Melatonin 3 Mg Tab PO 4.5 mg HS PRN Administration Sleep Miscellaneous 1 each 05/05/24 08:59 05/05/24 09:03 Remove Nicoderm Patch N/A 06/04/24 08:58 1 each DAILY@0859 ARPIT Administration Multivitamins 1 tab 05/05/24 09:00 05/05/24 09:04 Multivitamin Tab PO 06/04/24 08:59 1 tab DAILY ARPIT Administration Nicotine 1 patch 05/04/24 04:30 05/05/24 09:07 Nicotine 14 Mg/24 Hr Patch TD 06/03/24 04:29 Not Given QAM ARPIT Oxycodone HCl 5 mg 05/04/24 04:11 05/04/24 12:33 Oxycodone Hcl Ir 5 Mg Tab (Immediate Release) PO 05/18/24 04:10 5 mg Q4H PRN Administration Pain Vitamin B Complex 1 tab 05/05/24 09:00 05/05/24 09:04 Vitamin B Complex Tab PO 06/04/24 08:59 1 tab DAILY ARPIT Administration
[2024-05-05] MEDS: FOLIC ACID 1 MG TAB PO SCH (09:04)
[2024-05-05] MEDS: CYANOCOBALAMIN (B-12) 500 MCG TABLET PO SCH (09:04)
[2024-05-05] MEDS: MULTIVITAMIN TAB PO SCH (09:04)
[2024-05-05] MEDS: VITAMIN B COMPLEX TAB PO SCH (09:04)
[2024-05-05] MEDS: POTASSIUM CHLORIDE CRTAB 20 MEQ TABCR PO STA (09:07)
[2024-05-05 10:15] LABS: INR 0.9 (0.9-1.1); Prothrombin Time 10.3 Seconds (9.0-12.0)
[2024-05-05] MEDS: INSULIN ASPART PER UNIT CHARGE SC SCH (12:42)
--- NOTE | 2024-05-05 17:37 | Ultrasound Report ---
US liver CLINICAL HISTORY: elevated lfts TECHNIQUE: Multiple real-time sonographic images of the right upper quadrant were obtained. Comparison: Prior CT abdomen pelvis 05/04/2024 FINDINGS: The liver is diffusely homogenous with normal contour and echogenicity. No focal mass lesions are see n. No intrahepatic ductal dilatation is seen. Low level internal echoes are identified layering d ependently within the gallbladder, which is consistent with gallbladder sludge. The gallbladder wall is not thickened. There is no pericholecystic fluid present. A sonographic Christopher's sign was not niles cited by the administrative receptionist. The common duct measures 0.7 cm in diameter at the level of the hepatic a rtery. A cystic area in the pancreatic head measures approximately 3.4 x 2.3 cm. The right kidney shows normal echogenicity, cortical thickness and renal contour. The right kidney sh ows no evidence of hydronephrosis or mass. No ascites or free fluid is seen in Pete's pouch. IMPRESSION: 1. No acute abnormality. No bladder sludge without evidence of acute cholecystitis. 2. Stable cystic lesion in the pancreatic head. ACT 112: Negative or not required by law. Electronically signed by: Ritchie Cosby M.D. 05/05/2024 5:35 PM
[2024-05-05] MEDS: LANTUS PER UNIT CHARGE SQ SCH (21:42)
[2024-05-06 07:21] LABS: Basophils # (auto) 0.02 K/uL (0.00-0.20); Basophils % (auto) 0.4 %; Eosinophils # (auto) 0.19 K/uL (0.00-0.50); Eosinophils % (auto) 4.2 %; Hematocrit (blood only) 34.4 % (37.0-47.0); Hemoglobin 11.9 g/dl (12.0-16.0); Immature Granulocytes # (auto) 0.03 K/uL (0.01-0.20); Immature Granulocytes % (auto) 0.7 %; Lymphocytes # (auto) 1.41 K/uL (1.20-3.40); Lymphocytes % (auto) 31.4 %; Mean Corpuscular Hemoglobin 30.7 pg (25.0-34.0); Mean Corpuscular Hgb Conc 34.6 g/dL (32.0-36.0); Mean Corpuscular Volume 88.7 fL (80.0-100.0); Mean Platelet Volume 11.2 fL (9.4-12.4); Monocytes # (auto) 0.25 K/uL (0.11-0.59); Monocytes % (auto) 5.6 %; Neutrophils # (auto) 2.59 K/uL (1.40-6.50); Neutrophils % (auto) 57.7 %; Platelet Count 46 K/uL (130-400); RDW Coefficient of Variation 12.8 % (11.5-14.5); RDW Standard Deviation 41.5 fL (36.4-46.3); Red Blood Count 3.88 M/uL (4.20-5.40); White Blood Count 4.49 K/ul (4.8-10.8)
[2024-05-06 07:37] LABS: Albumin Globulin Ratio 1.7 (0.9-2); Albumin Level 3.7 gm/dl (3.4-5.0); BUN Creatinine Ratio 13.8 (10-20); Bilirubin,Total 1.3 mg/dl (0.2-1.0); Calcium 8.9 mg/dl (8.6-10.3); Creatinine Clr Calc Pharmacy 93.5 ml/min; Est GFR (African American) 117.8 ml/min; Est GFR (Non-African American) 101.6 ml/min; Globulin 2.2 gm/dl (2.5-4.0); Magnesium 1.7 mg/dl (1.7-2.4); Phosphorus 3.1 mg/dl (2.5-4.9); Potassium 3.3 mmol/L (3.5-5.1); Total Protein 5.9 gm/dl (6.0-8.3)
[2024-05-06] MEDS: POTASSIUM CHLORIDE CRTAB 20 MEQ TABCR PO STA (09:21)
--- NOTE | 2024-05-06 16:00 | Discharge Summary ---
Discharge Summary Date of Service May 06, 2024 Principal Dx & Hospital Course #1 = Principal Diagnosis (1) Alcohol abuse with withdrawal: Plan Pt is a 58yoF with PMHx significant for DM 2 insulin requiring, anxiety/mood disorder, neuropathy, ongoing tobacco/alcohol abuse presenting for alcohol detoxification. Patient with glass removed from right foot without signs of superimposed cellulitis. Patient tolerated librium taper. Multiple attempts to encourage rehab were made, patient declined. However, patient agreeable to follow up with PCP next week. On day of discharge, patient over 24 hours without iV ativan. Discharge with continued libirum taper. #Alcohol Detoxification #Chronic alcohol use #Transaminitis #Alcoholic Steatohepatitis Alcohol level of 380.1 on admission LFTS downtrending, stable Needs GI follow up Encouraged cessation Discharged to complete Librium taper #Acute thrombocytopenia no signs of bleeding, potentially iso alcoholic hepatitis picture Stable, needs GI follow up #Foreign body, right foot Wound care removed piece of glass from pt's right foot stable, no signs of infection #DM 2 insulin requiring Resume home regimen #anxiety/mood disorder patient not suicidal #ongoing tobacco abuse Nicotine patch prescribed Notes For Next Care Provider GI referral needed Repeat labs in 1 week CBC and CMP Medication Changes From Visit Librium taper Admission HPI Per Admitting Provider History obtained from patient and records. Medical history significant for DM 2 insulin requiring, anxiety/mood disorder, neuropathy, ongoing tobacco/alcohol abuse. Recent confinement last month for alcohol withdrawal and suicidality. Patient cleared by psychiatry prior to discharge. Patient found by mother at her home in a state of disarray. Mother worried about patient drinking. Patient denies suicidality. Denies headache, chest pain, SOB, abdominal pain. Patient would like to try to quit drinking again. Patient brought to ER for evaluation. 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 Admission Exam Per Admitting Provider GENERAL: Comfortable, tremulous, no respiratory distress SKIN: Normal color, warm HEENT: [place] palpebral conjunctivae, no ptosis, dry buccal mucosa NECK : Supple, no tenderness CHEST : CTA, no tenderness HEART : Tachycardic, no obvious murmurs ABDOMEN: Some distention, nontender EXTREMITIES : Left BKA stump, no other conspicuous deformities noted NEUROLOGIC : Coherent, no facial asymmetry, tremulous Discharge Exam Constitutional WD/WN, vitals as above Respiratory normal respiratory effort, lungs clear to auscultation Cardiovascular RRR, no murmur, no edema Gastrointestinal (Abdomen) normal bowel sounds, soft, nontender, no hepatosplenomegaly Updated Medication List Medication Instructions Recorded Confirmed Type cyanocobalamin (vitamin B-12) 1,000 mcg PO DAILY 05/10/20 05/04/24 History 1,000 mcg tablet (Vitamin B-12) multivitamin 1 tab PO DAILY 12/24/21 05/04/24 History folic acid 1 mg tablet 1 mg PO DAILY 05/21/22 05/04/24 History fluticasone propionate 50 1 spray intranasal DAILY 03/11/23 05/04/24 History mcg/actuation nasal spray,suspension duloxetine 60 mg capsule,delayed 60 mg PO QAM #30 caps 09/26/23 05/04/24 Rx release (Cymbalta) dlpivp-zoziaaxr-nkvdcxp 1 cap PO TID #90 caps 09/26/23 05/04/24 Rx 6,000-19,000-30,000 unit capsule,delayed rel (Creon) flash glucose sensor (FreeStyle 04/04/24 05/04/24 History Janny 2 Sensor kit) gabapentin 300 mg capsule See Rx Instructions .Route .COMPLEX 04/04/24 05/04/24 History insulin aspart U-100 100 unit/mL 0 sliding scale dose subcut AC 04/04/24 05/04/24 History (3 mL) subcutaneous pen (Novolog FlexPen U-100 Insulin aspart) insulin glargine 100 unit/mL (3 28 unit subcut QPM 04/04/24 05/04/24 History mL) subcutaneous pen (Lantus Solostar U-100 Insulin) melatonin 5 mg tablet 5 mg PO HS PRN Sleep 04/04/24 05/04/24 History triamcinolone acetonide 0.1 % 1 applic topical DAILY PRN 04/04/24 05/04/24 History topical cream psoriasis B-complex with vitamin C 1 cap PO DAILY 05/04/24 05/04/24 History magnesium oxide 500 mg PO DAILY 05/04/24 05/04/24 History chlordiazepoxide HCl 5 mg capsule See Rx Instructions .Route 05/06/24 Rx .COMPLEX #13 caps nicotine 7 mg/24 hr daily 1 patch transdermal QAM #30 ea 05/06/24 Rx transdermal patch Hospital Stay Data Consultations 05/04/24 02:48 ED Decision to Admit Stat Diagnostic Imagining Performed 05/04/24 01:19 CT abd pelvis IV con only Stat 05/05/24 08:00 US liver Routine Pending Results Patient Have Any Pending Studies at Discharge: No Discharge Instructions Given to Patient (Per Discharging Provider) Please consider continued alcohol abstinence. Your liver has irritation and fatty deposits and continued alcohol intake can progress to cirrhosis. please follow up with a PCP to establish with Gastroenterology and discuss retirement anxiety/coping mechanisms. Please continue a Librium (chlordiazepoxide) taper as follows: 5 mg orally as follows: take two tablets every 8 hours for 05/06, then take 2 tablets two times a day (7am and 7pm) on 05/07, then take 1 tablet two times a day (7am and 7pm) on 05/08 then take 1 tablet daily for 1 day on 05/09 Total Time Total Time Spent Total Time Spent (In Minutes): 35
[2024-05-07] MEDS ORDERED: chlordiazePOXIDE HCl 5 MG CAP PO SCH (10:00)
== END 2024-05-06 13:15 | disposition home or self-care (01) | DRG 897 ==
LOC: ED 22:42 → EDINP 05-04 04:07 → SUATTDRO 05-04 04:07 → 2N 05-04 05:33

== ENCOUNTER 2024-05-28 02:57 | Inpatient (IN) ==
[2024-05-28 04:10] LABS: Basophils # (auto) 0.04 K/uL (0.00-0.20); Basophils % (auto) 0.8 %; Eosinophils # (auto) 0.05 K/uL (0.00-0.50); Hemoglobin 15.4 g/dl (12.0-16.0); Immature Granulocytes # (auto) 0.03 K/uL (0.01-0.20); Immature Granulocytes % (auto) 0.6 %; Lymphocytes # (auto) 1.73 K/uL (1.20-3.40); Lymphocytes % (auto) 34.1 %; Mean Corpuscular Hemoglobin 30.9 pg (25.0-34.0); Mean Corpuscular Hgb Conc 33.5 g/dL (32.0-36.0); Mean Corpuscular Volume 92.4 fL (80.0-100.0); Mean Platelet Volume 9.7 fL (9.4-12.4); Monocytes # (auto) 0.29 K/uL (0.11-0.59); Monocytes % (auto) 5.7 %; Neutrophils # (auto) 2.93 K/uL (1.40-6.50); Neutrophils % (auto) 57.8 %; Platelet Count 143 K/uL (130-400); RDW Coefficient of Variation 14.7 % (11.5-14.5); RDW Standard Deviation 49.9 fL (36.4-46.3); Red Blood Count 4.98 M/uL (4.20-5.40); White Blood Count 5.07 K/ul (4.8-10.8)
[2024-05-28 04:28] LABS: Albumin Level 3.9 gm/dl (3.4-5.0); Bilirubin,Total 0.5 mg/dl (0.2-1.0); Calcium 8.7 mg/dl (8.6-10.3); Potassium 3.9 mmol/L (3.5-5.1)
[2024-05-28 04:33] LABS: Albumin Globulin Ratio 1.3 (0.9-2); BUN Creatinine Ratio 12.1 (10-20); Creatinine Clr Calc Pharmacy 100.8 ml/min; Est GFR (African American) 117.8 ml/min; Est GFR (Non-African American) 101.6 ml/min; Globulin 2.9 gm/dl (2.5-4.0); Total Protein 6.8 gm/dl (6.0-8.3)
[2024-05-28] MEDS: MULTI-VITAMIN INFUSION 10 ML, THIAMINE HCL 100 MG, FOLIC ACID 1 MG in SODIUM CHLORIDE 0... IV ONE (05:38)
--- OUTSIDE RECORDS SUMMARY | 2024-05-28 05:52 | External Medical Summary | Summary of Care ---
Author Name Unknown Organization [facility] Address [address] [facility] [place] [address] Phone [phone] Care Team Providers Care Scientific Programmer Analyst Name Role Phone Ingrid Mejias PA-C Primary Care Provider [phone] Reason for Visit * Reason Onset Date Comments Hospital Follow-Up 05/07/2024 [facility] Encounter Details Date Type Department Care Team (Late st Contact Info) Description 05/07/2024 Telephone Family Practice [facility] Latasha [place] [address] [place] [id number] Maribel Pelaez, RN Hospital Follow-Up ([facility]) Allergies Active Allergy Reactions Criticality Noted Date Comments Lorazepam 05/20/2016 Haloperidol Lactate 05/20/2016 documented as of this encounter (statuses as of 05/07/2024) Medications Medication Sig Dispensed Refills Start Date End Date Status Cyanocobalamin 2500 MCG CHEW Take 1,000 mcg by mouth. Active Multiple Vitamins-Minerals (MULTIVITAMIN ADULT) TABS Take by mouth. Active fluticasone (FLONASE) 50 MCG/ACT nasal spray Administer 1 [place] into nostril in the morning. Active triamcinolone acetonide (ARISTOCORT) 0.1 % cream apply to PSORIASIS ON BODY TWICE DAILY FOR 2 WEEKS, THEN DAILY NEEDED 0 05/15/2016 Active Creon 6000-31824 UNIT Oral Capsule Delayed Release Particles Take [...] by mouth in the morning. 04/13/2024 Active documented as of this encounter (statuses as of 05/07/2024) Active Problems Problem Noted Date Diagnosed Date Medical marijuana use 03/31/2024 History of amputation of left leg through tibia and fibula 10/20/2023 Type 2 diabetes mellitus wit h diabetic mononeuropathy, with long-term current use of insulin 10/20/2023 documented as of this encounter (statuses as of 05/07/2024) Immunizations Name Administration Dates Next Due TDAP [...] encounter Miscellaneous Notes * Telephone Encounter - Olivia June OSA - 05/07/2024 2:18 PM EDT Reason for patient's call: returning nurse call Caller was transferred to [place] at the nurse line. * Telephone Encounter - Maribel Pelaez RN - 05/07/2024 9:13 AM EDT Transitions of Care Note Reason for Referral:Recent Admission Phone visit for follow up: MARY ANN Admitted to: [facility], Date: 05/03 Discharged to: Home, Date: 05/06 Diagnosis driving hospitalization: Alcohol abuse with withdrawal: Attempted Phone Call First Attempt Call Outcome Left Voicemail/Message Source/Contact: Patient SUBJECTIVE Consent: Verbal consent for review of hospital discharge: Yes REVIEW OF SYSTEMS Patient/Other Reports: Current patient/caregiver problems or concerns: none CV: Denies problems Pulmonary: Denies problems Chills/Sweats/Fever:Denies chills/sweats Denies fever Appetite:Denies problems such as nausea, vomiting, burning, decreased appetite Current diet: diabetic Bowel: denies problems Bladder: denies problems Wound (If applicable): N/A Pain:Denies Sleep:Denies problems FUNCTIONAL STATUS: ADL'S: Needs Assistance With:N/A as pt is independent IADL'S: Needs Assistance With:N/A as pt is independent Cognitive and Mental Health: denies problems, alert and oriented x 3, and able to communicate, understand instructions, process information. MEDICATION RECONCILIATION Medications: New medication(s) filled since hospitalization- librium OBJECTIVE ASSESSMENT Medication Risk Assessment: No risks identified Did patient fail outpatient treatment? No Discharge instructions available for review? Yes PLAN Symptom Monitoring Interventions:Member/caregiver education - signs and symptoms to contact PrimaryCare (DO NOT DELETE-Three jay symptoms patient is to report to PCP) 1. Increased anxiety/feeling out of control 2. Wounds to leg/stump 3. Change in mental status Equal Opportunity DirectorWestern Philosophy Professor of Care interventions/Action Plan: 5 - 7 day follow-up with PCP in place - Date: 05/13/24 Educated on role of MARY ANN completed with patient/caregiver. Educated patient/caregiver on patient right to have input on MARY ANN plan of care. Verification of Home Health/DME if indicated: NO n/a Identified Care Gaps: Yes Care Gaps closed this call: Appointment made or confirmed and Transition of Care follow-up communication Re-evaluation of Plan of Care and progress towards goals achievement: Patient education this visit: Verbal, as above Plan to instructed to call Primary Care Provider with change in symptoms or as needed before next follow-up, discharge needs met, verbalizes understanding and agrees with plan. Maribel Pelaez, RN documented in this encounter Plan of Treatment Upcoming Encounters Date Type Department Care Team (Late st Contact Info) Description 05/13/2024 8:20 AM EDT Office Visit [facility] [address] [facility] [place] [address] Bee Alonzo MD [address] [facility] [place] [address] 05/18/2024 1:40 PM EDT Office Visit [facility] [address] [facility] [place] [address] Ingrid Mejias PA-C [address] [facility] [place] [address] 05/26/2024 10:30 AM EDT Imaging Radiology, [place] [id number] [facility] [place] [address] 12/28/2024 10:30 AM EDT Office Visit Gynecology/Obstetrics [facility] [address] [place] [address] Sandra Kauffman CRNP [address] [place] [address] Health Maintenance Due Date Last Done Comments DISCUSS TOBACCO CESSATION (REFER TO SMARTSET #[id number]) 1965 Pneumococcal Vaccine: Pediatrics (0 to 5 [...] filedocumented as of this encounter Care Teams Scientific Programmer Analyst Relationship Specialty Start Date End Date Ingrid Mejias PA-C [address] [place] [address] PCP - General Physician Piano Mechanic 01/14/24 documented as of this encounter
[2024-05-28 06:06] LABS: Magnesium 2.1 mg/dl (1.7-2.4)
[2024-05-28] MEDS ORDERED: LORazepam 1 MG in SYRINGE 0.5 ML IV STA (06:07)
--- NOTE | 2024-05-28 06:15 | History & Physical Report ---
Date of Service May 28, 2024 Assessment & Plan (1) Alcohol abuse with withdrawal: Plan: Alcohol abuse with withdrawal RLE cellulitis History foreign body injury No sepsis for now Rule out DVT Alcoholic hepatitis DM 2 insulin requiring, suboptimal control as of recent hemoglobin A1c of 7.6 last March 2024, hypoglycemic episodes at home as per patient account anxiety/mood disorder, patient denies suicidality Thrombocytopenia noted from last month's confinement Possible functional disability given recurrent admissions ongoing tobacco abuse Admit to Medical telemetry CHENTE S, DT precautions Doxycycline for RLE cellulitis CT right foot RLE venous Dopplers Hold basal insulin for now given hypoglycemic episodes, ISS BG goal 1 10-1 40, carb count coverage, update hemoglobin A1c PT OT eval once medically stable Nicotine patch DVT prophylaxis. SCDs if no DVT on ultrasound Re: Thrombocytopenia Full code Patient requesting for mother to be given periodic updates regarding care. Ms. Joan Holt, contact #[phone]. Text document was generated using [employer] voice recognition software. It may contain grammatical or spelling errors. Kindly contact undersigned for clarification of any documentation item in question. History of Present Illness Chief Complaint: Passing out, low sugars Primary Care Provider: Ingrid Mejias PA-C History obtained from patient and records. Medical history significant for DM 2 insulin requiring, anxiety/mood disorder, neuropathy, thrombocytopenia, ongoing tobacco/alcohol abuse. Three admissions since March 2024 for alcohol intoxication. Recent confinement 3 weeks ago for alcohol withdrawal. Right foot trauma resulting from glass foreign body. Glass removed from right foot as per DC note. Patient declined multiple attempts for rehab. Patient not answering calls from outpatient case management for follow-up appointment as per documentation. Patient consumed alcohol upon return home. Denies unusual depression or suicidality. Few days ago, patient noted worsening right foot swelling with extension to right lower leg. No fever, no chills, no chest pain, no SOB. Unwitnessed syncopal events at home secondary to low sugar as per patient. BG 30s as per patient. Patient denies seizures, tongue biting, incontinence. Patient called mother on the phone asking for help. Patient brought to ER by EMS. 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 Allergies Allergy/AdvReac Type Severity Reaction Status Date / Time haloperidol [From Haldol] AdvReac Unknown ON Verified 05/04/24 00:51 [facility] MED LIST Home Medications Medication Instructions Recorded Confirmed Type cyanocobalamin (vitamin B-12) 1,000 mcg PO DAILY 05/10/20 05/04/24 History 1,000 mcg tablet (Vitamin B-12) multivitamin 1 tab PO DAILY 12/24/21 05/04/24 History folic acid 1 mg tablet 1 mg PO DAILY 05/21/22 05/04/24 History fluticasone propionate 50 1 spray intranasal DAILY 03/11/23 05/04/24 History mcg/actuation nasal spray,suspension duloxetine 60 mg capsule,delayed 60 mg PO QAM #30 caps 09/26/23 05/04/24 Rx release (Cymbalta) [id number] 1 cap PO TID #90 caps 09/26/23 05/04/24 Rx 6,000-19,000-30,000 unit capsule,delayed rel (Creon) flash glucose sensor (FreeStyle 04/04/24 05/04/24 History Janny 2 Sensor kit) gabapentin 300 mg capsule See Rx Instructions .Route .COMPLEX 04/04/24 05/04/24 History insulin aspart U-100 100 unit/mL 0 sliding scale dose subcut AC 04/04/24 05/28/24 History (3 mL) subcutaneous pen (Novolog FlexPen U-100 Insulin aspart) insulin glargine 100 unit/mL (3 28 unit subcut QPM 04/04/24 05/28/24 History mL) subcutaneous pen (Lantus Solostar U-100 Insulin) melatonin 5 mg tablet 5 mg PO HS PRN Sleep 04/04/24 05/04/24 History triamcinolone acetonide 0.1 % 1 applic topical DAILY PRN 04/04/24 05/04/24 History topical cream psoriasis B-complex with vitamin C 1 cap PO DAILY 05/04/24 05/04/24 History magnesium oxide 500 mg PO DAILY 05/04/24 05/04/24 History chlordiazepoxide HCl 5 mg capsule See Rx Instructions .Route 05/06/24 Rx .COMPLEX #13 caps nicotine 7 mg/24 hr daily 1 patch transdermal QAM #30 ea 05/06/24 Rx transdermal patch Past Med/Surg History Problem List (Updated 05/28/24 @ 06:24 by Oswaldo Thornton PA-C) Alcohol abuse with withdrawal (Acute) Alcoholic hepatitis (Acute) MDD (major depressive disorder), recurrent, in partial remission Medical marijuana use Feeling suicidal (Acute) Alcohol intoxication (Acute) Alcohol intoxication (Acute) Alcohol use disorder (Acute) Vitamin D deficiency (Acute) Psoriasis (Acute) IPMN (intraductal papillary mucinous neoplasm) Imaging July 2020 follow-up yearly Encephalomalacia (Acute) History of GI bleed Diabetic peripheral neuropathy associated with type 1 diabetes mellitus Liver cirrhosis (Acute) Exocrine pancreatic insufficiency Insomnia Dysesthesia Diabetes type 1, uncontrolled (Acute) Dyslipidemia Alcohol abuse (Acute) Below knee amputation Medical History Oral thrush Thrombocytopenia Tobacco dependence Depression with anxiety Unable to establish with psychiatrist Hydrosalpinx PT UNAWARE SBO (small bowel obstruction) Resolved Lipoma NECK Polycystic ovarian syndrome Surgical History History of left below knee amputation Amputation of left lower extremity TO APPROX MID CALF History of ankle surgery 02/2019 left ankle ex fix, grade 2 view with MAC 3 and 7.0 ETT History of tooth extraction Family History Uncle Diabetes Mother Breast cancer Sister Breast cancer Father Prostate cancer Other Family history of breast cancer in mother Family history of breast cancer in sister Denies family history of Ovarian cancer Myocardial infarction Colorectal cancer Social History Smoking Status: Current every day smoker Tobacco Type: Cigarettes and Pipe packs per day: 0.75; Cigarettes Per Day: 10; Second Hand Exposure: Yes; Do You Dip or Chew Tobacco: No; Hx Alcohol Use: Yes Alcohol type: wine Hx Substance Use: No Preferred Language: Japanese Communication Ability: Effective Visual Impairment: No Limitations Street Engineer Required: No Beliefs That Will Affect Care: None marital status: marital status details: no children Current Living Situation: Alone Current Living Situation Comment: unknown current occupational status: disabled Feels Safe at Home: Yes Assistive Devices: None Review of Systems Review of Systems: As per HPI, all other systems reviewed and negative Physical Exam Physical Exam: GENERAL: uncomfortable, covered in blankets, tremulous, no respiratory distress SKIN: Normal color, warm HEENT: [place] palpebral conjunctivae, no ptosis, dry buccal mucosa NECK : Supple, no tenderness CHEST : CTA, no tenderness HEART : RRR, no obvious murmurs ABDOMEN: Some distention, nontender EXTREMITIES : Tender RLE/right foot erythema, left BKA stump NEUROLOGIC : Coherent, no facial asymmetry, tremulous Results & Data Results & Data Vital Signs (Past 12 Hours) Vital Signs Temp Pulse Pulse Resp BP BP Pulse Ox 05/28/24 05:30 88 16 130/112 H 97 05/28/24 04:31 89 16 130/85 100 05/28/24 03:22 87 05/28/24 03:22 79 16 97 05/28/24 03:22 82 16 149/88 H 97 05/28/24 03:10 36.4 C L 79 16 149/88 H 97 05/28/24 03:07 93 O2 Del Method O2 Flow Rate 05/28/24 05:30 Room Air 05/28/24 04:31 Nasal Cannula 2 05/28/24 03:22 05/28/24 03:22 Nasal Cannula 2 05/28/24 03:22 Nasal Cannula 2 05/28/24 03:10 Nasal Cannula 2 05/28/24 03:07 Room Air 0 Laboratory Results Laboratory Results WBC 5.07 K/ul (4.8-10.8) 05/28/24 03:10 RBC 4.98 M/uL (4.20-5.40) 05/28/24 03:10 Hgb 15.4 g/dl (12.0-16.0) 05/28/24 03:10 Hct 46.0 % (37.0-47.0) 05/28/24 03:10 MCV 92.4 fL (80.0-100.0) 05/28/24 03:10 MCH 30.9 pg (25.0-34.0) 05/28/24 03:10 MCHC 33.5 g/dL (32.0-36.0) 05/28/24 03:10 RDW Std Deviation 49.9 fL (36.4-46.3) H 05/28/24 03:10 RDW Coeff of Ethel 14.7 % (11.5-14.5) H 05/28/24 03:10 Plt Count 143 K/uL (130-400) 05/28/24 03:10 MPV 9.7 fL (9.4-12.4) 05/28/24 03:10 Immature Gran % (Auto) 0.6 % 05/28/24 03:10 Neut % (Auto) 57.8 % 05/28/24 03:10 Lymph % (Auto) 34.1 % 05/28/24 03:10 [place] % (Auto) 5.7 % 05/28/24 03:10 Eos % (Auto) 1.0 % 05/28/24 03:10 Baso % (Auto) 0.8 % 05/28/24 03:10 Neut # (Auto) 2.93 K/uL (1.40-6.50) 05/28/24 03:10 Lymph # (Auto) 1.73 K/uL (1.20-3.40) 05/28/24 03:10 [place] # (Auto) 0.29 K/uL (0.11-0.59) 05/28/24 03:10 Eos # (Auto) 0.05 K/uL (0.00-0.50) 05/28/24 03:10 Baso # (Auto) 0.04 K/uL (0.00-0.20) 05/28/24 03:10 Immature Gran # (Auto) 0.03 K/uL (0.01-0.20) 05/28/24 03:10 Sodium 143 mmol/L (136-145) 05/28/24 03:10 Potassium 3.9 mmol/L (3.5-5.1) 05/28/24 03:10 Chloride 101 mmol/L (98-107) 05/28/24 03:10 Carbon Dioxide 29 mmol/L (21-32) 05/28/24 03:10 Anion Gap 13 (3-11) H 05/28/24 03:10 BUN 7 mg/dl (6-23) 05/28/24 03:10 Creatinine 0.58 mg/dl (0.6-1.2) L 05/28/24 03:10 Est Cr Clr Drug Dosing 100.8 ml/min 05/28/24 03:10 Est GFR ( Amer) 117.8 ml/min 05/28/24 03:10 Est GFR (Non-Af Amer) 101.6 ml/min 05/28/24 03:10 BUN/Creatinine Ratio 12.1 (10-20) 05/28/24 03:10 Glucose 165 mg/dl (70-99(Fasting)) H 05/28/24 03:10 POC Glucose 215 mg/dl (70-99) H 05/28/24 03:38 Calcium 8.7 mg/dl (8.6-10.3) 05/28/24 03:10 Magnesium 2.1 mg/dl (1.7-2.4) 05/28/24 03:10 Total Bilirubin 0.5 mg/dl (0.2-1.0) 05/28/24 03:10 AST 87 U/L (13-39) H 05/28/24 03:10 ALT 38 U/L (7-52) 05/28/24 03:10 Alkaline Phosphatase 309 U/L (34-104) H 05/28/24 03:10 Total Protein 6.8 gm/dl (6.0-8.3) 05/28/24 03:10 Albumin 3.9 gm/dl (3.4-5.0) 05/28/24 03:10 Globulin 2.9 gm/dl (2.5-4.0) 05/28/24 03:10 Albumin/Globulin Ratio 1.3 (0.9-2) 05/28/24 03:10 Ethyl Alcohol mg/dL 505.6 mg/dl (<10.0) H 05/28/24 03:10
[2024-05-28] MEDS ORDERED: Ativan IV Alcohol Withdrawal--Active Protocol IV PRN (06:18)
--- NOTE | 2024-05-28 06:18 | Emergency Department Note ---
History of Present Illness General Chief complaint: Alcohol Intoxication Stated complaint: ETOH Time Seen by Provider: 05/28/24 03:00 History of Present Illness This is a 58-year-old female presenting to the emergency department via EMS from home for evaluation of altered mental status. Patient allegedly contacted her mother by telephone and was acting atypical. Patient's mother contacted EMS, and on arrival the patient was next to an empty the gallon container of wine. It is unsure how much of the wine she drank this evening. The patient has a history of alcoholism with several recent ER visits. Patient is diabetic and reportedly recently treated for UTI. She does not have any complaints or self on arrival. Home Medications Medication Instructions Recorded Confirmed Type cyanocobalamin (vitamin B-12) 1,000 mcg PO DAILY 05/10/20 05/04/24 History 1,000 mcg tablet (Vitamin B-12) multivitamin 1 tab PO DAILY 12/24/21 05/04/24 History folic acid 1 mg tablet 1 mg PO DAILY 05/21/22 05/04/24 History fluticasone propionate 50 1 spray intranasal DAILY 03/11/23 05/04/24 History mcg/actuation nasal spray,suspension duloxetine 60 mg capsule,delayed 60 mg PO QAM #30 caps 09/26/23 05/04/24 Rx release (Cymbalta) [id number] 1 cap PO TID #90 caps 09/26/23 05/04/24 Rx 6,000-19,000-30,000 unit capsule,delayed rel (Creon) flash glucose sensor (FreeStyle 04/04/24 05/04/24 History Janny 2 Sensor kit) gabapentin 300 mg capsule See Rx Instructions .Route .COMPLEX 04/04/24 05/04/24 History insulin aspart U-100 100 unit/mL 0 sliding scale dose subcut AC 04/04/24 05/28/24 History (3 mL) subcutaneous pen (Novolog FlexPen U-100 Insulin aspart) insulin glargine 100 unit/mL (3 28 unit subcut QPM 04/04/24 05/28/24 History mL) subcutaneous pen (Lantus Solostar U-100 Insulin) melatonin 5 mg tablet 5 mg PO HS PRN Sleep 04/04/24 05/04/24 History triamcinolone acetonide 0.1 % 1 applic topical DAILY PRN 04/04/24 05/04/24 History topical cream psoriasis B-complex with vitamin C 1 cap PO DAILY 05/04/24 05/04/24 History magnesium oxide 500 mg PO DAILY 05/04/24 05/04/24 History chlordiazepoxide HCl 5 mg capsule See Rx Instructions .Route 05/06/24 Rx .COMPLEX #13 caps nicotine 7 mg/24 hr daily 1 patch transdermal QAM #30 ea 05/06/24 Rx transdermal patch Allergies Allergy/AdvReac Type Severity Reaction Status Date / Time haloperidol [From Haldol] AdvReac Unknown ON Verified 05/04/24 00:51 [facility] MED LIST Past Med/Surg History Problem List (Updated 05/28/24 @ 06:24 by Oswaldo Thornton PA-C) Alcohol abuse with withdrawal (Acute) Alcoholic hepatitis (Acute) MDD (major depressive disorder), recurrent, in partial remission Medical marijuana use Feeling suicidal (Acute) Alcohol intoxication (Acute) Alcohol intoxication (Acute) Alcohol use disorder (Acute) Vitamin D deficiency (Acute) Psoriasis (Acute) IPMN (intraductal papillary mucinous neoplasm) Imaging July 2020 follow-up yearly Encephalomalacia (Acute) History of GI bleed Diabetic peripheral neuropathy associated with type 1 diabetes mellitus Liver cirrhosis (Acute) Exocrine pancreatic insufficiency Insomnia Dysesthesia Diabetes type 1, uncontrolled (Acute) Dyslipidemia Alcohol abuse (Acute) Below knee amputation Medical History Oral thrush Thrombocytopenia Tobacco dependence Depression with anxiety Unable to establish with psychiatrist Hydrosalpinx PT UNAWARE SBO (small bowel obstruction) Resolved Lipoma NECK Polycystic ovarian syndrome Surgical History History of left below knee amputation Amputation of left lower extremity TO APPROX MID CALF History of ankle surgery 02/2019 left ankle ex fix, grade 2 view with MAC 3 and 7.0 ETT History of tooth extraction Family History Uncle Diabetes Mother Breast cancer Sister Breast cancer Father Prostate cancer Other Family history of breast cancer in mother Family history of breast cancer in sister Denies family history of Ovarian cancer Myocardial infarction Colorectal cancer Social History Smoking Status: Current every day smoker Tobacco Type: Cigarettes and Pipe packs per day: 0.75; Cigarettes Per Day: 10; Second Hand Exposure: Yes; Do You Dip or Chew Tobacco: No; Hx Alcohol Use: Yes Alcohol type: wine Hx Substance Use: No Preferred Language: Somali Communication Ability: Effective Visual Impairment: No Limitations In Home Sales Representative Required: No Beliefs That Will Affect Care: None marital status: marital status details: no children Current Living Situation: Alone Current Living Situation Comment: unknown current occupational status: disabled Feels Safe at Home: Yes Assistive Devices: None Review of Systems A total of 10 systems reviewed and were otherwise negative Physical Exam Vital Signs Vital Signs - 24 hr 05/28/24 03:07 05/28/24 03:10 05/28/24 03:22 Temperature 36.4 C L Temperature Source Oral Pulse Rate 82 Pulse Rate [Left Radial] 79 Pulse Rhythm Regular Pulse Rhythm [Left Radial] Regular Pulse Strength Normal Pulse Strength [Left Radial] Normal Respiratory Rate 16 16 Respiratory Effort / Characteristics Non-Labored Spontaneous Non-Labored Spontaneous Respiratory Depth Normal Normal Respiratory Pattern Regular Regular Blood Pressure 149/88 H Blood Pressure [Left Arm] 149/88 H Blood Pressure Mean 108 Blood Pressure Mean [Left Arm] 108 Blood Pressure Position Lying Blood Pressure Position [Left Arm] Lying Pulse Oximetry 93 97 97 Oxygen Delivery Method Room Air Nasal Cannula Nasal Cannula Oxygen Flow Rate 0 2 2 Sepsis Recent Fever Within 48 Hours No Sepsis New/Unexplained Change in Mental Status Yes Sepsis Action Taken by Nursing No Action Required 05/28/24 03:22 05/28/24 03:22 05/28/24 04:31 Temperature Temperature Source Pulse Rate 79 87 Pulse Rate [Left Radial] 89 Pulse Rhythm Regular Pulse Rhythm [Left Radial] Pulse Strength Pulse Strength [Left Radial] Normal Respiratory Rate 16 16 Respiratory Effort / Characteristics Non-Labored Spontaneous Respiratory Depth Normal Respiratory Pattern Regular Blood Pressure Blood Pressure [Left Arm] 130/85 Blood Pressure Mean Blood Pressure Mean [Left Arm] 100 Blood Pressure Position Blood Pressure Position [Left Arm] Lying Pulse Oximetry 97 100 Oxygen Delivery Method Nasal Cannula Nasal Cannula Oxygen Flow Rate 2 2 Sepsis Recent Fever Within 48 Hours Sepsis New/Unexplained Change in Mental Status Sepsis Action Taken by Nursing 05/28/24 05:30 Temperature Temperature Source Pulse Rate Pulse Rate [Left Radial] 88 Pulse Rhythm Pulse Rhythm [Left Radial] Pulse Strength Pulse Strength [Left Radial] Normal Respiratory Rate 16 Respiratory Effort / Characteristics Non-Labored Spontaneous Respiratory Depth Normal Respiratory Pattern Regular Blood Pressure Blood Pressure [Left Arm] 130/112 H Blood Pressure Mean Blood Pressure Mean [Left Arm] 118 Blood Pressure Position Blood Pressure Position [Left Arm] Pulse Oximetry 97 Oxygen Delivery Method Room Air Oxygen Flow Rate Sepsis Recent Fever Within 48 Hours Sepsis New/Unexplained Change in Mental Status Sepsis Action Taken by Nursing VITALS: Vitals are noted on the nurse's note and reviewed by myself. Vital signs stable. GENERAL: Disheveled white female who is alert but mumbling answering to questions. HEAD: Normocephalic atraumatic. MOUTH: Mucous membranes moist. Tonsils are not enlarged. Pharynx without erythema, blood, or exudate. Uvula midline. Airway patent. NECK: Supple without nuchal rigidity. No lymphadenopathy. No thyromegaly. Cervical spine is nontender. HEART: Regular rate and rhythm without murmurs gallops or rubs. LUNGS: Clear to auscultation bilaterally without wheezes, rales or rhonchi. No retractions or accessory muscle use. ABDOMEN: Positive normal bowel sounds x 4. Soft, nontender, without masses or organomegaly. Course Administered Medications Multivitamins 10 ml/ Thiamine HCl 100 mg/ Folic Acid 1 mg/Sodium Chloride 1,011.2 mls @ 500 mls/hr IV .Q2H2M ONE Stop: 05/28/24 06:50 Last Admin: 05/28/24 05:38 Dose: 500 mls/hr Documented By: STEPHANY Medical Decision Making Differential Diagnosis Differential diagnosis: Etiologies such as alcohol intoxication, toxicological, infection, hypoglycemia, electrolyte abnormalities, cardiac sources, intracerebral event, neurologic, as well as others were entertained. Laboratory Data 05/28/24 03:10 05/28/24 03:10 Lab Results 05/28/24 05/28/24 Range/Units 03:10 03:38 WBC 5.07 (4.8-10.8) K/ul RBC 4.98 (4.20-5.40) M/uL Hgb 15.4 (12.0-16.0) g/dl Hct 46.0 (37.0-47.0) % MCV 92.4 (80.0-100.0) fL MCH 30.9 (25.0-34.0) pg MCHC 33.5 (32.0-36.0) g/dL RDW Std Deviation 49.9 H (36.4-46.3) fL RDW Coeff of Ethel 14.7 H (11.5-14.5) % Plt Count 143 (130-400) K/uL MPV 9.7 (9.4-12.4) fL Immature Gran % (Auto) 0.6 % Neut % (Auto) 57.8 % Lymph % (Auto) 34.1 % [place] % (Auto) 5.7 % Eos % (Auto) 1.0 % Baso % (Auto) 0.8 % Neut # (Auto) 2.93 (1.40-6.50) K/uL Lymph # (Auto) 1.73 (1.20-3.40) K/uL [place] # (Auto) 0.29 (0.11-0.59) K/uL Eos # (Auto) 0.05 (0.00-0.50) K/uL Baso # (Auto) 0.04 (0.00-0.20) K/uL Immature Gran # (Auto) 0.03 (0.01-0.20) K/uL Sodium 143 (136-145) mmol/L Potassium 3.9 (3.5-5.1) mmol/L Chloride 101 (98-107) mmol/L Carbon Dioxide 29 (21-32) mmol/L Anion Gap 13 H (3-11) BUN 7 (6-23) mg/dl Creatinine 0.58 L (0.6-1.2) mg/dl Est Cr Clr Drug Dosing 100.8 ml/min Est GFR ( Amer) 117.8 ml/min Est GFR (Non-Af Amer) 101.6 ml/min BUN/Creatinine Ratio 12.1 (10-20) Glucose 165 H (70-99(Fasting)) mg/dl POC Glucose 215 H (70-99) mg/dl Calcium 8.7 (8.6-10.3) mg/dl Magnesium 2.1 (1.7-2.4) mg/dl Total Bilirubin 0.5 (0.2-1.0) mg/dl AST 87 H (13-39) U/L ALT 38 (7-52) U/L Alkaline Phosphatase 309 H (34-104) U/L Total Protein 6.8 (6.0-8.3) gm/dl Albumin 3.9 (3.4-5.0) gm/dl Globulin 2.9 (2.5-4.0) gm/dl Albumin/Globulin Ratio 1.3 (0.9-2) Ethyl Alcohol mg/dL 505.6 H (<10.0) mg/dl MDM Narrative Physical exam and history were performed. Nursing notes, EMR, and Medication List were personally reviewed. No social concerns were identified as barriers to patients care. Patient appears to have reports of altered mental status bringing her to the ER. Patient is disheveled on presentation and does smell of alcohol. IV access was established and labs were obtained. Urine was ordered. Blood work is as above and was reviewed. She does not have a significantly elevated white blood cell count, gross anemia, or significant electrolyte imbalance. Patient's alcohol is markedly elevated at 505. Case was discussed with my attending physician, as well as the on-call hospitalist team. Patient requires escalation of care as she does not seem well for discharge. She clearly has an alcohol use issue, and I did provide a banana bag here in the ER. Case was discussed with the [facility] hospitalist team who agreed to evaluate the patient here in the ER. Please see their dictation for further patient course, plan, disposition. The chart was completed utilizing [employer] Speech Voice Recognition Software. Grammatical errors, random word insertions, pronoun errors, and incomplete sentences are an occasional consequence of this system due to software limitations, ambient noise, and hardware issues. Any formal questions or concerns about the content, text, or information contained within the body of this dictation should be directly addressed to the provider for clarification. Impression & Plan Alcohol intoxication, Alcohol use disorder Discharge Plan Visit Data Chief Complaint: Alcohol Intoxication Stated Complaint: ETOH ED Provider: Susie Elizondo ED Midlevel Provider: Oswaldo Thornton Discharge Problem: Alcohol intoxication, Alcohol use disorder Forms Stand Alone Forms: My [facility] [employer] Prescriptions Prescriptions: No Action duloxetine [Cymbalta] 60 mg capsule,delayed release(DR/EC) 60 mg PO QAM Qty: 30 5RF Creon 6,000-19,000 -30,000 unit capsule,delayed release(DR/EC) 1 cap PO TID Qty: 90 5RF multivitamin Tablet 1 tab PO DAILY cyanocobalamin (vitamin B-12) [Vitamin B-12] 1,000 mcg tablet 1,000 mcg PO DAILY folic acid 1 mg Tablet 1 mg PO DAILY fluticasone propionate 50 mcg/actuation [place],Suspension 1 spray INTRANASAL DAILY Rx Instructions: administer into each nostril gabapentin 300 mg capsule See Rx Instructions .ROUTE .COMPLEX Rx Instructions: 1 cap in AM, 1 cap at 1200, 2 caps at HS insulin aspart U-100 [Novolog FlexPen U-100 Insulin] 100 unit/mL (3 mL) insulin pen 0 sliding scale dose subcut AC Rx Instructions: sliding scale based on blood sugars; prior to meals insulin glargine [Lantus Solostar U-100 Insulin] 100 unit/mL (3 mL) insulin pen 28 unit subcut QPM (DME) FreeStyle Janny 2 Sensor Kit MISCELLANEOUS triamcinolone acetonide 0.1 % Cream 1 applic TOPICAL DAILY PRN (Reason: psoriasis) melatonin 5 mg Tablet 5 mg PO HS PRN (Reason: Sleep) magnesium oxide 500 mg magnesium Tablet 500 mg PO DAILY B-complex with vitamin C Capsule 1 cap PO DAILY chlordiazepoxide HCl 5 mg Capsule See Rx Instructions .ROUTE .COMPLEX Qty: 13 0RF Rx Instructions: 5 mg orally as follows: take two tablets every 8 hours for 05/06, then take 2 tablets two times a day (7am and 7pm) on 05/07, then take 1 tablet two times a day (7am and 7pm) on 05/08 then take 1 tablet daily for 1 day on 05/09 nicotine 7 mg/24 hr Patch 24 Hour 1 patch transdermal QAM Qty: 30 0RF Referrals Referrals: Ingrid Mejias PA-C [Primary Care Provider] -
[2024-05-28] MEDS ORDERED: LORazepam 2 MG in SYRINGE 1 ML IV PRN (06:20)
[2024-05-28] MEDS ORDERED: PROMETHAZINE 6.25 MG/50.25 ML BAG IV PRN (06:20)
[2024-05-28] MEDS ORDERED: GLUCAGON FOR INJ 1 MG VIAL SQ PRN (06:22)
[2024-05-28] MEDS ORDERED: GLUCOSE 40% GEL 15 GM TUBE PO PRN (06:22)
[2024-05-28] MEDS ORDERED: DEXTROSE 50% 50 ML SYRINGE IV PRN (06:22)
[2024-05-28] MEDS ORDERED: GLUCOSE 10 TAB/TUBE PO PRN (06:22)
[2024-05-28] MEDS: KETOROLAC TROMETHAMINE 15 MG/ML VIAL IV STA (06:40)
[2024-05-28] MEDS: LORazepam 1 MG/1 ML SYR ED Inj Use IV STA (06:40)
[2024-05-28] MEDS: GABAPENTIN 600 MG TAB PO STA (06:41)
[2024-05-28] MEDS: NICOTINE 21 MG/24 HR TDSY TD STA (06:41)
--- NOTE | 2024-05-28 07:47 | Ultrasound Report ---
ULTRASOUND RIGHT LOWER EXTREMITY VENOUS CLINICAL HISTORY: Right lower extremity swelling. COMPARISON STUDY: No priors TECHNIQUE: Real-time, grayscale, and color Doppler sonography of the deep veins of the right lower ex tremity was performed from the inguinal crease to the calf. Compression and augmentation were utilize d. FINDINGS: There is no sonographic evidence of deep venous thrombosis identified in the right lower ex tremity. The common femoral, superficial femoral, and popliteal veins are patent and normally linda sible. The greater saphenous vein and the profunda femoris vein at the junction with the common femor al vein are clear. The visualized calf veins are patent. IMPRESSION: There is no sonographic evidence of deep venous thrombosis identified in the right lower extremity. ACT 112: Negative or not required by law. Electronically signed by: Lauro Nj M.D. 05/28/2024 7:46 AM
[2024-05-28 08:09] LABS: Estimated Average Glucose 177 mg/dl; Hemoglobin A1C 7.8 % (4.5-5.6)
[2024-05-28] MEDS: OPTIRAY 320 100ml IV ONE (08:34)
[2024-05-28 08:54] LABS: Prothrombin Time 10.9 Seconds (9.0-12.0)
[2024-05-28] MEDS: INSULIN ASPART PER UNIT CHARGE SC SCH (08:58)
--- NOTE | 2024-05-28 09:06 | CT Scan Report ---
CT foot RT w con CT DOSE: 397.25 mGy.cm CLINICAL HISTORY: Right foot swelling swelling, hx FB TECHNIQUE: Multiaxial CT images of the right foot were performed following the intravenous administra tion of contrast and reformatted in the sagittal and coronal plane. A dose lowering technique was ut ilized adhering to the principles of ALARA. COMPARISON STUDY: Right foot radiographs 05/04/2024. FINDINGS: Interval development of a nondisplaced fracture within the lateral sesamoid bone at the hea d of the first metatarsal. This is best seen on axial image 249. No additional fractures within the r ight foot. No dislocation. No bony destructive changes to suggest an osteomyelitis. Soft tissue swell ing at the first MTP joint. There is dorsal subcutaneous edema within the foot. No radiopaque foreign bodies. No loculated fluid collections to suggest an abscess. There is diffuse fatty atrophy within the right foot musculature. The flexor, extensor, peroneal, and visualized Achilles tendon appear int act. IMPRESSION: 1. Interval development of a nondisplaced fracture within the lateral sesamoid bone at the head of th e first metatarsal. 2. Soft tissue swelling at the first MTP joint. 3. No radiopaque foreign bodies. 4. Dorsal subcutaneous edema within the foot. No loculated fluid collections to suggest an abscess. ACT 112: Negative or not required by law. Electronically signed by: Delano uMrry M.D. 05/28/2024 9:03 AM
[2024-05-28] MEDS: LORazepam 3 MG in SYRINGE 1.5 ML IV PRN (09:16)
[2024-05-28] MEDS: DOXYCYCLINE HYCLATE 100 MG in DEXTROSE 5% MINI-B 100 ML IV STA (09:56)
[2024-05-28] MEDS: GABAPENTIN 300 MG CAP PO SCH ×2 (09:57→21:02)
--- NOTE | 2024-05-28 10:34 | Hospitalist Progress Note ---
Date of Service May 28, 2024 Assessment & Plan (1) Cellulitis: (2) Closed fracture of sesamoid bone of foot: (3) Alcohol abuse with withdrawal: (4) Alcoholic hepatitis: Plan Pt is a 58yoF with PMHx significant for DM 2 insulin requiring, anxiety/mood disorder, neuropathy, thrombocytopenia, ongoing tobacco/alcohol abuse presenting for monitored withdrawal. Alcohol abuse with withdrawal Alcoholic hepatitis AWSS DT precautions Continue to monitor on telemetry Encourage rehab R Foot Fracture History foreign body injury Cellulitis of RLE CT foot noting "Interval development of a nondisplaced fracture within the later al sesamoid bone at the head of the first metatarsal" Hx of foreign body injury Ortho consult, appreciate further recs Pain control Continue with doxycycline No sepsis for now DVT ruled out with doppler US DMII insulin requiring Hgba1c of 7.8 Hold basal insulin for now given hypoglycemic episodes ISS BG goal 1 10-1 40, carb count coverage anxiety/mood disorder patient denies suicidality Continue home meds Thrombocytopenia noted from last month's confinement am peripheral smear Likely in setting of chronic alcohol use Diet: DMII Dispo: PT OT eval once medically stable for recs DVT prophylaxis. SCDs Full code Admission and Anticipated Discharge Date Admission Date: May 28, 2024 Subjective pt was seen while still down in the ED. Unarousable, sleeping soundly, snoring. per nursing had just gotten Ativan and other morning meds. Review of Systems Review of Systems: All systems reviewed & are unremarkable except as noted in Subjective Physical Exam Physical Exam: General: No acute distress Skin: erythema to RLE Neuro: unarousable HEENT: NC/AT CV: RRR Resp: Breath sounds clear bilaterally, no increased effort of breathing. Abdomen:Soft Extremities: erythema to RLE, L BKA Results & Data Results & Data Vital Signs (Past 12 Hours) Vital Signs Temp Pulse Pulse Resp BP BP Pulse Ox 05/28/24 09:00 36.8 C 111 H 18 140/83 92 05/28/24 08:54 102 H 18 91 05/28/24 08:50 150/83 H 05/28/24 08:50 150/83 H 05/28/24 06:42 107 H 18 05/28/24 06:30 124/80 05/28/24 06:30 124/80 05/28/24 06:15 103 H 21 05/28/24 06:06 16 05/28/24 06:00 130/112 H 05/28/24 05:45 97 H 18 100 05/28/24 05:30 90 14 05/28/24 05:30 119/83 05/28/24 05:30 119/83 05/28/24 05:30 119/83 05/28/24 05:30 88 16 130/112 H 97 05/28/24 05:03 84 22 100 05/28/24 05:00 125/85 05/28/24 05:00 125/85 05/28/24 05:00 125/85 05/28/24 05:00 125/85 05/28/24 04:45 87 21 100 05/28/24 04:31 89 16 130/85 100 05/28/24 04:30 130/85 05/28/24 04:30 130/85 05/28/24 04:18 83 14 100 05/28/24 04:00 87 17 100 05/28/24 03:33 84 13 100 05/28/24 03:22 87 05/28/24 03:22 79 16 97 05/28/24 03:22 82 16 149/88 H 97 05/28/24 03:21 84 17 99 05/28/24 03:10 36.4 C L 79 16 149/88 H 97 05/28/24 03:07 93 O2 Del Method O2 Flow Rate 05/28/24 09:00 Room Air 05/28/24 08:54 Room Air 05/28/24 08:50 05/28/24 08:50 05/28/24 06:42 05/28/24 06:30 05/28/24 06:30 05/28/24 06:15 05/28/24 06:06 05/28/24 06:00 05/28/24 05:45 05/28/24 05:30 05/28/24 05:30 05/28/24 05:30 05/28/24 05:30 05/28/24 05:30 Room Air 05/28/24 05:03 05/28/24 05:00 05/28/24 05:00 05/28/24 05:00 05/28/24 05:00 05/28/24 04:45 05/28/24 04:31 Nasal Cannula 2 05/28/24 04:30 05/28/24 04:30 05/28/24 04:18 05/28/24 04:00 05/28/24 03:33 05/28/24 03:22 05/28/24 03:22 Nasal Cannula 2 05/28/24 03:22 Nasal Cannula 2 05/28/24 03:21 05/28/24 03:10 Nasal Cannula 2 05/28/24 03:07 Room Air 0 Diagnostic Findings Venous Doppler Study 05/28/24 06:18 ULTRASOUND RIGHT LOWER EXTREMITY VENOUS CLINICAL HISTORY: Right lower extremity swelling. COMPARISON STUDY: No priors TECHNIQUE: Real-time, grayscale, and color Doppler sonography of the deep veins of the right lower extremity was performed from the inguinal crease to the calf. Compression and augmentation were utilized. FINDINGS: There is no sonographic evidence of deep venous thrombosis identified in the right lower extremity. The common femoral, superficial femoral, and popliteal veins are patent and normally compressible. The greater saphenous vein and the profunda femoris vein at the junction with the common femoral vein are clear. The visualized calf veins are patent. IMPRESSION: There is no sonographic evidence of deep venous thrombosis jose elias ntified in the right lower extremity. ACT 112: Negative or not required by law. Electronically signed by: Lauro Nj M.D. 05/28/2024 7:[address] 05/28/24 07:55 CT foot RT w con CT DOSE: 397.25 mGy.cm CLINICAL HISTORY: Right foot swelling swelling, hx FB TECHNIQUE: Multiaxial CT images of the right foot were performed following the intravenous administration of contrast and reformatted in the sagittal and coronal plane. A dose lowering technique was utilized adhering to the principles of ALARA. COMPARISON STUDY: Right foot radiographs 05/04/2024. FINDINGS: Interval development of a nondisplaced fracture within the lateral sesamoid bone at the head of the first metatarsal. This is best seen on axial image 249. No additional fractures within the right foot. No dislocation. No bony destructive changes to suggest an osteomyelitis. Soft tissue swelling at the first MTP joint. There is dorsal subcutaneous edema within the foot. No r adiopaque foreign bodies. No loculated fluid collections to suggest an abscess. There is diffuse fatty atrophy within the right foot musculature. The flexor, extensor, peroneal, and visualized Achilles tendon appear intact. IMPRESSION: 1. Interval development of a nondisplaced fracture within the lateral sesamoid bone at the head of the first metatarsal. 2. Soft tissue swelling at the first MTP joint. 3. No radiopaque foreign bodies. 4. Dorsal subcutaneous edema within the foot. No loculated fluid collections to suggest an abscess. ACT 112: Negative or not required by law. Electronically signed by: Delano Murry M.D. 05/28/2024 9:03 AM
[2024-05-28] MEDS: DULoxetine HCL 60 MG CAP PO SCH (10:41)
[2024-05-28] MEDS: LORazepam 1 MG in SYRINGE 0.5 ML IV PRN (10:41)
[2024-05-28] MEDS: FLUTICASONE PROPIONATE NA SPR 16 GM BTL SCH (10:42)
--- NOTE | 2024-05-28 13:45 | Orthopedic Consultation ---
Date of Consultation May 28, 2024 Assessment & Plan (1) Closed fracture of sesamoid bone of foot: IMPRESSION: Right foot fibular sesamoid fracture, closed, initial visit PLAN: WBAT through heel in post-op shoe. RICE Pain control per primary service. Continue care per primary service. Can follow-up as an outpatient at [facility] with Dr. García. Present on Admission?: Yes (2) Cellulitis: IMPRESSION: RLE cellulitis PLAN: CT with no foreign body or osteomylitis WBAT through heel in post-op shoe. RICE Continue Abx per primary service Pain control per primary service. Continue care per primary service. Present on Admission?: Yes History of Present Illness Reason for Consultation: Right foot Sesamoid fracture Requesting Physician: Ansley Henderson MD Attending Physician: Samantha Corrales MD History of Present Illness 58 yo female who has been admitted for ETOH abuse/withdrawal with history of DM II and neuropathy was noted to have redness of the right foot and lower leg. Patient was admitted last month and had foreign body removed from her right foot. A CT was obtained and a sesamoid fracture was noted and I was consulted for further evaluation and treatment. She notes that she is starting to fell better. Allergies Allergy/AdvReac Type Severity Reaction Status Date / Time haloperidol [From Haldol] AdvReac Unknown ON Verified 05/04/24 00:51 [employer] MED LIST Home Medications Medication Instructions Recorded Confirmed Type cyanocobalamin (vitamin B-12) 1,000 mcg PO DAILY 05/10/20 05/04/24 History 1,000 mcg tablet (Vitamin B-12) multivitamin 1 tab PO DAILY 12/24/21 05/04/24 History folic acid 1 mg tablet 1 mg PO DAILY 05/21/22 05/04/24 History fluticasone propionate 50 1 spray intranasal DAILY 03/11/23 05/04/24 History mcg/actuation nasal spray,suspension duloxetine 60 mg capsule,delayed 60 mg PO QAM #30 caps 09/26/23 05/04/24 Rx release (Cymbalta) nktaro-[id number]-qdwmdcc 1 cap PO TID #90 caps 09/26/23 05/04/24 Rx 6,000-19,000-30,000 unit capsule,delayed rel (Creon) flash glucose sensor (FreeStyle 04/04/24 05/04/24 History Janny 2 Sensor kit) gabapentin 300 mg capsule See Rx Instructions .Route .COMPLEX 04/04/24 05/04/24 History insulin aspart U-100 100 unit/mL 0 sliding scale dose subcut AC 04/04/24 05/28/24 History (3 mL) subcutaneous pen (Novolog FlexPen U-100 Insulin aspart) insulin glargine 100 unit/mL (3 28 unit subcut QPM 04/04/24 05/28/24 History mL) subcutaneous pen (Lantus Solostar U-100 Insulin) melatonin 5 mg tablet 5 mg PO HS PRN Sleep 04/04/24 05/04/24 History triamcinolone acetonide 0.1 % 1 applic topical DAILY PRN 04/04/24 05/04/24 History topical cream psoriasis B-complex with vitamin C 1 cap PO DAILY 05/04/24 05/04/24 History magnesium oxide 500 mg PO DAILY 05/04/24 05/04/24 History chlordiazepoxide HCl 5 mg capsule See Rx Instructions .Route 05/06/24 Rx .COMPLEX #13 caps nicotine 7 mg/24 hr daily 1 patch transdermal QAM #30 ea 05/06/24 Rx transdermal patch Patient History Medical History Oral thrush Thrombocytopenia Tobacco dependence Depression with anxiety Unable to establish with psychiatrist Hydrosalpinx PT UNAWARE SBO (small bowel obstruction) Resolved Lipoma NECK Polycystic ovarian syndrome Surgical History History of left below knee amputation Amputation of left lower extremity TO APPROX MID CALF History of ankle surgery 02/2019 left ankle ex fix, grade 2 view with MAC 3 and 7.0 ETT History of tooth extraction Family History Uncle Diabetes Mother Breast cancer Sister Breast cancer Father Prostate cancer Other Family history of breast cancer in mother Family history of breast cancer in sister Denies family history of Ovarian cancer Myocardial infarction Colorectal cancer Social History Smoking Status: Current every day smoker Tobacco Type: Cigarettes and Pipe packs per day: 0.75; Cigarettes Per Day: 10; Second Hand Exposure: Yes; Do You Dip or Chew Tobacco: No; Hx Alcohol Use: Yes Alcohol type: wine Hx Substance Use: No Preferred Language: Tristanian Communication Ability: Effective Visual Impairment: No Limitations Meat Stuffer Required: No Beliefs That Will Affect Care: None marital status: marital status details: no children Current Living Situation: Alone Current Living Situation Comment: unknown current occupational status: disabled Feels Safe at Home: Yes Assistive Devices: None Physical Exam Physical Exam: RLE: Sensation to light touch unchanged per patient. 2+ DP pulse. Able to flex& extend toes and ankle. + TTP 1st MTPJ. + Swelling and erythema foot , ankle, lower leg; the proximal extent was marked with pen. Dried blood over lateral aspect of ankle. Results & Data Vital Signs (Past 12 Hours) Vital Signs Temp Pulse Pulse Resp BP BP Pulse Ox 05/28/24 11:36 120/76 05/28/24 11:36 120/76 05/28/24 11:09 94 H 16 94 05/28/24 11:00 99 H 19 95 05/28/24 10:30 99 H 16 95 05/28/24 09:00 36.8 C 111 H 18 140/83 92 05/28/24 08:54 102 H 18 91 05/28/24 08:50 150/83 H 05/28/24 08:50 150/83 H 05/28/24 06:42 107 H 18 05/28/24 06:30 124/80 05/28/24 06:30 124/80 05/28/24 06:15 103 H 21 05/28/24 06:06 16 05/28/24 06:00 130/112 H 05/28/24 05:45 97 H 18 100 05/28/24 05:30 90 14 05/28/24 05:30 119/83 05/28/24 05:30 119/83 05/28/24 05:30 119/83 05/28/24 05:30 88 16 130/112 H 97 05/28/24 05:03 84 22 100 05/28/24 05:00 125/85 05/28/24 05:00 125/85 05/28/24 05:00 125/85 05/28/24 05:00 125/85 05/28/24 04:45 87 21 100 05/28/24 04:31 89 16 130/85 100 05/28/24 04:30 130/85 05/28/24 04:30 130/85 05/28/24 04:18 83 14 100 05/28/24 04:00 87 17 100 05/28/24 03:33 84 13 100 05/28/24 03:22 87 05/28/24 03:22 79 16 97 05/28/24 03:22 82 16 149/88 H 97 05/28/24 03:21 84 17 99 05/28/24 03:10 36.4 C L 79 16 149/88 H 97 05/28/24 03:07 93 O2 Del Method O2 Flow Rate 05/28/24 11:36 05/28/24 11:36 05/28/24 11:09 Room Air 05/28/24 11:00 05/28/24 10:30 05/28/24 09:00 Room Air 05/28/24 08:54 Room Air 05/28/24 08:50 05/28/24 08:50 05/28/24 06:42 05/28/24 06:30 05/28/24 06:30 05/28/24 06:15 05/28/24 06:06 05/28/24 06:00 05/28/24 05:45 05/28/24 05:30 05/28/24 05:30 05/28/24 05:30 05/28/24 05:30 05/28/24 05:30 Room Air 05/28/24 05:03 05/28/24 05:00 05/28/24 05:00 05/28/24 05:00 05/28/24 05:00 05/28/24 04:45 05/28/24 04:31 Nasal Cannula 2 05/28/24 04:30 05/28/24 04:30 05/28/24 04:18 05/28/24 04:00 05/28/24 03:33 05/28/24 03:22 05/28/24 03:22 Nasal Cannula 2 05/28/24 03:22 Nasal Cannula 2 05/28/24 03:21 05/28/24 03:10 Nasal Cannula 2 05/28/24 03:07 Room Air 0 Laboratory Results 05/28/24 05/28/24 05/28/24 Range/Units 11:37 08:21 08:14 WBC (4.8-10.8) K/ul RBC (4.20-5.40) M/uL Hgb (12.0-16.0) g/dl Hct (37.0-47.0) % MCV (80.0-100.0) fL MCH (25.0-34.0) pg MCHC (32.0-36.0) g/dL RDW Std Deviation (36.4-46.3) fL RDW Coeff of Ethel (11.5-14.5) % Plt Count (130-400) K/uL MPV (9.4-12.4) fL Immature Gran % (Auto) % Neut % (Auto) % Lymph % (Auto) % [place] % (Auto) % Eos % (Auto) % Baso % (Auto) % Neut # (Auto) (1.40-6.50) K/uL Lymph # (Auto) (1.20-3.40) K/uL [place] # (Auto) (0.11-0.59) K/uL Eos # (Auto) (0.00-0.50) K/uL Baso # (Auto) (0.00-0.20) K/uL Immature Gran # (Auto) (0.01-0.20) K/uL PT 10.9 (9.0-12.0) Seconds INR 1.0 (0.9-1.1) Sodium (136-145) mmol/L Potassium (3.5-5.1) mmol/L Chloride (98-107) mmol/L Carbon Dioxide (21-32) mmol/L Anion Gap (3-11) BUN (6-23) mg/dl Creatinine (0.6-1.2) mg/dl Est Cr Clr Drug Dosing ml/min Est GFR ( Amer) ml/min Est GFR (Non-Af Amer) ml/min BUN/Creatinine Ratio (10-20) Glucose (70-99(Fasting)) mg/dl POC Glucose 265 H 114 H (70-99) mg/dl Estimat Average Glucose mg/dl Hemoglobin A1c (4.5-5.6) % Calcium (8.6-10.3) mg/dl Magnesium (1.7-2.4) mg/dl Total Bilirubin (0.2-1.0) mg/dl AST (13-39) U/L ALT (7-52) U/L Alkaline Phosphatase (34-104) U/L Total Protein (6.0-8.3) gm/dl Albumin (3.4-5.0) gm/dl Globulin (2.5-4.0) gm/dl Albumin/Globulin Ratio (0.9-2) Ethyl Alcohol mg/dL (<10.0) mg/dl 05/28/24 05/28/24 Range/Units 03:38 03:10 WBC 5.07 (4.8-10.8) K/ul RBC 4.98 (4.20-5.40) M/uL Hgb 15.4 (12.0-16.0) g/dl Hct 46.0 (37.0-47.0) % MCV 92.4 (80.0-100.0) fL MCH 30.9 (25.0-34.0) pg MCHC 33.5 (32.0-36.0) g/dL RDW Std Deviation 49.9 H (36.4-46.3) fL RDW Coeff of Ethel 14.7 H (11.5-14.5) % Plt Count 143 (130-400) K/uL MPV 9.7 (9.4-12.4) fL Immature Gran % (Auto) 0.6 % Neut % (Auto) 57.8 % Lymph % (Auto) 34.1 % [place] % (Auto) 5.7 % Eos % (Auto) 1.0 % Baso % (Auto) 0.8 % Neut # (Auto) 2.93 (1.40-6.50) K/uL Lymph # (Auto) 1.73 (1.20-3.40) K/uL [place] # (Auto) 0.29 (0.11-0.59) K/uL Eos # (Auto) 0.05 (0.00-0.50) K/uL Baso # (Auto) 0.04 (0.00-0.20) K/uL Immature Gran # (Auto) 0.03 (0.01-0.20) K/uL PT (9.0-12.0) Seconds INR (0.9-1.1) Sodium 143 (136-145) mmol/L Potassium 3.9 (3.5-5.1) mmol/L Chloride 101 (98-107) mmol/L Carbon Dioxide 29 (21-32) mmol/L Anion Gap 13 H (3-11) BUN 7 (6-23) mg/dl Creatinine 0.58 L (0.6-1.2) mg/dl Est Cr Clr Drug Dosing 100.8 ml/min Est GFR ( Amer) 117.8 ml/min Est GFR (Non-Af Amer) 101.6 ml/min BUN/Creatinine Ratio 12.1 (10-20) Glucose 165 H (70-99(Fasting)) mg/dl POC Glucose 215 H (70-99) mg/dl Estimat Average Glucose 177 mg/dl Hemoglobin A1c 7.8 H (4.5-5.6) % Calcium 8.7 (8.6-10.3) mg/dl Magnesium 2.1 (1.7-2.4) mg/dl Total Bilirubin 0.5 (0.2-1.0) mg/dl AST 87 H (13-39) U/L ALT 38 (7-52) U/L Alkaline Phosphatase 309 H (34-104) U/L Total Protein 6.8 (6.0-8.3) gm/dl Albumin 3.9 (3.4-5.0) gm/dl Globulin 2.9 (2.5-4.0) gm/dl Albumin/Globulin Ratio 1.3 (0.9-2) Ethyl Alcohol mg/dL 505.6 H (<10.0) mg/dl Diagnostic Findings CT foot RT w con CT DOSE: 397.25 mGy.cm CLINICAL HISTORY: Right foot swelling swelling, hx FB TECHNIQUE: Multiaxial CT images of the right foot were performed following the intravenous administration of contrast and reformatted in the sagittal and coronal plane. A dose lowering technique was utilized adhering to the principles of ALARA. COMPARISON STUDY: Right foot radiographs 05/04/2024. FINDINGS: Interval development of a nondisplaced fracture within the lateral sesamoid bone at the head of the first metatarsal. This is best seen on axial image 249. No additional fractures within the right foot. No dislocation. No bony destructive changes to suggest an osteomyelitis. Soft tissue swelling at the first MTP joint. There is dorsal subcutaneous edema within the foot. No radiopaque foreign bodies. No loculated fluid collections to suggest an abscess. There is diffuse fatty atrophy within the right foot musculature. The flexor, extensor, peroneal, and visualized Achilles tendon appear intact. IMPRESSION: 1. Interval development of a nondisplaced fracture within the lateral sesamoid bone at the head of the first metatarsal. 2. Soft tissue swelling at the first MTP joint. 3. No radiopaque foreign bodies. 4. Dorsal subcutaneous edema within the foot. No loculated fluid collections to suggest an abscess. ACT 112: Negative or not required by law. Electronically signed by: Delano Murry M.D. 05/28/2024 9:03 AM
[2024-05-28] MEDS: MELATONIN 3 MG TAB PO PRN (21:02)
[2024-05-28] MEDS: DOXYCYCLINE HYCLATE 100 MG CAP PO SCH (21:35)
[2024-05-29] MEDS: ACETAMINOPHEN 500 MG TAB PO PRN (02:37)
[2024-05-29 07:16] LABS: Albumin Globulin Ratio 1.3 (0.9-2); BUN Creatinine Ratio 14.3 (10-20); Bilirubin,Total 1.4 mg/dl (0.2-1.0); Calcium 8.2 mg/dl (8.6-10.3); Est GFR (African American) 110.7 ml/min; Est GFR (Non-African American) 95.5 ml/min; Globulin 2.4 gm/dl (2.5-4.0); Magnesium 1.5 mg/dl (1.7-2.4); Phosphorus 3.1 mg/dl (2.5-4.9); Potassium 3.6 mmol/L (3.5-5.1); Total Protein 5.4 gm/dl (6.0-8.3)
[2024-05-29 08:44] LABS: Hematocrit (blood only) 35.9 % (37.0-47.0); Hemoglobin 12.2 g/dl (12.0-16.0); Mean Corpuscular Hemoglobin 31.1 pg (25.0-34.0); Mean Corpuscular Volume 91.6 fL (80.0-100.0); Mean Platelet Volume 10.3 fL (9.4-12.4); Platelet Count 62 K/uL (130-400); RDW Coefficient of Variation 14.5 % (11.5-14.5); RDW Standard Deviation 48.4 fL (36.4-46.3); Red Blood Count 3.92 M/uL (4.20-5.40); White Blood Count 4.86 K/ul (4.8-10.8)
[2024-05-29 08:45] LABS: Basophils # (auto) 0.03 K/uL (0.00-0.20); Basophils % (auto) 0.6 %; Eosinophils # (auto) 0.05 K/uL (0.00-0.50); Immature Granulocytes # (auto) 0.02 K/uL (0.01-0.20); Immature Granulocytes % (auto) 0.4 %; Lymphocytes # (auto) 0.87 K/uL (1.20-3.40); Lymphocytes % (auto) 17.9 %; Monocytes # (auto) 0.15 K/uL (0.11-0.59); Monocytes % (auto) 3.1 %; Neutrophils # (auto) 3.74 K/uL (1.40-6.50); Platelet Estimate Decreased (Normal); RBC Morphology Unremarkable
--- NOTE | 2024-05-29 08:46 | Orthopedic Progress Note ---
Date of Service May 29, 2024 Assessment & Plan (1) Closed fracture of sesamoid bone of foot: Plan: IMPRESSION: Right foot fibular sesamoid fracture, closed PLAN: WBAT through heel in post-op shoe. RICE Pain control per primary service. Continue care per primary service. Can follow-up as an outpatient at [facility] with Dr. García. Please re-call if any ortho issues. (2) Cellulitis: Plan: IMPRESSION: RLE cellulitis, improving PLAN: CT with no foreign body or osteomylitis WBAT through heel in post-op shoe. RICE Continue Abx per primary service Pain control per primary service. Continue care per primary service. Follow-up as outpatient with pcp. Admission and Anticipated Discharge Date Admission Date: May 28, 2024 Subjective feeling better. Physical Exam Physical Exam: RLE: Sensation to light touch unchanged per patient. 2+ DP pulse. Able to flex & extend toes and ankle. + TTP 1st MTPJ. Significantly decreased welling and erythema foot, ankle, lower leg. Dried blood over lateral aspect of ankle. Results & Data Vital Signs (Past 12 Hours) Vital Signs Temp Pulse Pulse Resp BP Pulse Ox O2 Del Method 05/29/24 08:02 37.1 C 96 H 18 162/85 H 95 Room Air 05/29/24 07:18 89 05/29/24 03:07 36.9 C 99 H 18 160/82 H 93 Room Air 05/28/24 23:23 37 C 104 H 18 133/74 95 Room Air 05/28/24 21:54 94 H Laboratory Results 05/29/24 05/29/24 05/29/24 Range/Units 08:22 07:45 05:35 WBC 4.86 Cancelled RBC 3.92 L Cancelled Hgb 12.2 D Cancelled Hct 35.9 L Cancelled MCV 91.6 Cancelled MCH 31.1 Cancelled MCHC 34.0 Cancelled RDW Std Deviation 48.4 H Cancelled RDW Coeff of Ethel 14.5 Cancelled Plt Count 62 L D Cancelled MPV 10.3 Cancelled Immature Gran % (Auto) 0.4 Cancelled Neut % (Auto) 77.0 Cancelled Lymph % (Auto) 17.9 Cancelled [place] % (Auto) 3.1 Cancelled Eos % (Auto) 1.0 Cancelled Baso % (Auto) 0.6 Cancelled Neut # (Auto) 3.74 Cancelled Lymph # (Auto) 0.87 L Cancelled [place] # (Auto) 0.15 Cancelled Eos # (Auto) 0.05 Cancelled Baso # (Auto) 0.03 Cancelled Immature Gran # (Auto) 0.02 Cancelled Absolute Nucleated RBC Cancelled Nucleated RBC % (auto) Cancelled Neutrophils % (Manual) Cancelled Band Neutrophils % Cancelled Lymphocytes % (Manual) Cancelled Prolymphocyte % Cancelled Reactive Lymphs % (Man) Cancelled Monocytes % (Manual) Cancelled Eosinophils % (Manual) Cancelled Basophils % (Manual) Cancelled Metamyelocytes % (Man) Cancelled Myelocytes % (Man) Cancelled Promyelocytes % (Man) Cancelled Blast Cells % (Manual) Cancelled Plasma Cell % (Manual) Cancelled Other Cells % Cancelled Nucleated RBC % Cancelled Neutrophils # (Manual) Cancelled Band Neutrophils # Cancelled Total Absolute Neuts Cancelled Lymphocytes # (Manual) Cancelled Prolymphocyte # Cancelled Reactive Lymphs # Cancelled Total Abs Lymphocytes Cancelled Monocytes # (Manual) Cancelled Eosinophils # (Manual) Cancelled Basophils # (Manual) Cancelled Metamyelocytes # (Man) Cancelled Myelocytes # (Manual) Cancelled Promyelocytes # (Man) Cancelled Blast Cells # (Man) Cancelled Plasma Cell # (Manual) Cancelled Other Cells # Cancelled Nucleated RBCs # (Man) Cancelled Hypersegmented Neuts Cancelled Hyposegmented Neuts Cancelled Hypogranular Neuts Cancelled Large Granular Lymphs Cancelled # Lrg Granular Lymphs Cancelled Hairy Cells Cancelled Smudge Cells Cancelled Toxic Granulation Cancelled Toxic Vacuolation Cancelled Dohle Bodies Cancelled Chai Rods Cancelled Platelet Estimate Decreased L Cancelled Hypogranular Platelets Cancelled Giant Platelets Cancelled Platelet Satelliting Cancelled RBC Morphology Unremarkable Cancelled Polychromasia Cancelled Hypochromasia Cancelled Poikilocytosis Cancelled Basophilic Stippling Cancelled Anisocytosis Cancelled Microcytosis Cancelled Macrocytosis Cancelled Spherocytes Cancelled Pappenheimer Bodies Cancelled Sickle Cells Cancelled Target Cells Cancelled Tear Drop Cells Cancelled Ovalocytes Cancelled Stomatocytes Cancelled Mcmahan-Kirwin Bodies Cancelled Echinocytes Cancelled Acanthocytes (Spur) Cancelled Rouleaux Cancelled RBC Agglutinates Cancelled Schistocytes Cancelled Peripher Smr Path Cons Pending Cancelled Sezary Cell Cancelled PT (9.0-12.0) Seconds INR (0.9-1.1) Sodium 136 (136-145) mmol/L Potassium 3.6 (3.5-5.1) mmol/L Chloride 100 (98-107) mmol/L Carbon Dioxide 29 (21-32) mmol/L Anion Gap 7 (3-11) BUN 10 (6-23) mg/dl Creatinine 0.70 (0.6-1.2) mg/dl Est Cr Clr Drug Dosing 82.0 ml/min Est GFR ( Amer) 110.7 ml/min Est GFR (Non-Af Amer) 95.5 ml/min BUN/Creatinine Ratio 14.3 (10-20) Glucose 181 H (70-99(Fasting)) mg/dl POC Glucose 233 H (70-99) mg/dl Calcium 8.2 L (8.6-10.3) mg/dl Phosphorus 3.1 (2.5-4.9) mg/dl Magnesium 1.5 L (1.7-2.4) mg/dl Total Bilirubin 1.4 H D (0.2-1.0) mg/dl AST 74 H (13-39) U/L ALT 36 (7-52) U/L Alkaline Phosphatase 303 H (34-104) U/L Total Protein 5.4 L D (6.0-8.3) gm/dl Albumin 3.0 L (3.4-5.0) gm/dl Globulin 2.4 L (2.5-4.0) gm/dl Albumin/Globulin Ratio 1.3 (0.9-2) Blood Parasites ID Cancelled 05/28/24 05/28/24 05/28/24 Range/Units 20:10 16:25 11:37 WBC RBC Hgb Hct MCV MCH MCHC RDW Std Deviation RDW Coeff of Ethel Plt Count MPV Immature Gran % (Auto) Neut % (Auto) Lymph % (Auto) [place] % (Auto) Eos % (Auto) Baso % (Auto) Neut # (Auto) Lymph # (Auto) [place] # (Auto) Eos # (Auto) Baso # (Auto) Immature Gran # (Auto) Absolute Nucleated RBC Nucleated RBC % (auto) Neutrophils % (Manual) Band Neutrophils % Lymphocytes % (Manual) Prolymphocyte % Reactive Lymphs % (Man) Monocytes % (Manual) Eosinophils % (Manual) Basophils % (Manual) Metamyelocytes % (Man) Myelocytes % (Man) Promyelocytes % (Man) Blast Cells % (Manual) Plasma Cell % (Manual) Other Cells % Nucleated RBC % Neutrophils # (Manual) Band Neutrophils # Total Absolute Neuts Lymphocytes # (Manual) Prolymphocyte # Reactive Lymphs # Total Abs Lymphocytes Monocytes # (Manual) Eosinophils # (Manual) Basophils # (Manual) Metamyelocytes # (Man) Myelocytes # (Manual) Promyelocytes # (Man) Blast Cells # (Man) Plasma Cell # (Manual) Other Cells # Nucleated RBCs # (Man) Hypersegmented Neuts Hyposegmented Neuts Hypogranular Neuts Large Granular Lymphs # Lrg Granular Lymphs Hairy Cells Smudge Cells Toxic Granulation Toxic Vacuolation Dohle Bodies Chai Rods Platelet Estimate Hypogranular Platelets Giant Platelets Platelet Satelliting RBC Morphology Polychromasia Hypochromasia Poikilocytosis Basophilic Stippling Anisocytosis Microcytosis Macrocytosis Spherocytes Pappenheimer Bodies Sickle Cells Target Cells Tear Drop Cells Ovalocytes Stomatocytes Mcmahan-Kirwin Bodies Echinocytes Acanthocytes (Spur) Rouleaux RBC Agglutinates Schistocytes Peripher Smr Path Cons Sezary Cell PT (9.0-12.0) Seconds INR (0.9-1.1) Sodium (136-145) mmol/L Potassium (3.5-5.1) mmol/L Chloride (98-107) mmol/L Carbon Dioxide (21-32) mmol/L Anion Gap (3-11) BUN (6-23) mg/dl Creatinine (0.6-1.2) mg/dl Est Cr Clr Drug Dosing ml/min Est GFR ( Amer) ml/min Est GFR (Non-Af Amer) ml/min BUN/Creatinine Ratio (10-20) Glucose (70-99(Fasting)) mg/dl POC Glucose 211 H 93 265 H (70-99) mg/dl Calcium (8.6-10.3) mg/dl Phosphorus (2.5-4.9) mg/dl Magnesium (1.7-2.4) mg/dl Total Bilirubin (0.2-1.0) mg/dl AST (13-39) U/L ALT (7-52) U/L Alkaline Phosphatase (34-104) U/L Total Protein (6.0-8.3) gm/dl Albumin (3.4-5.0) gm/dl Globulin (2.5-4.0) gm/dl Albumin/Globulin Ratio (0.9-2) Blood Parasites ID 05/28/24 Range/Units 08:21 WBC RBC Hgb Hct MCV MCH MCHC RDW Std Deviation RDW Coeff of Ethel Plt Count MPV Immature Gran % (Auto) Neut % (Auto) Lymph % (Auto) [place] % (Auto) Eos % (Auto) Baso % (Auto) Neut # (Auto) Lymph # (Auto) [place] # (Auto) Eos # (Auto) Baso # (Auto) Immature Gran # (Auto) Absolute Nucleated RBC Nucleated RBC % (auto) Neutrophils % (Manual) Band Neutrophils % Lymphocytes % (Manual) Prolymphocyte % Reactive Lymphs % (Man) Monocytes % (Manual) Eosinophils % (Manual) Basophils % (Manual) Metamyelocytes % (Man) Myelocytes % (Man) Promyelocytes % (Man) Blast Cells % (Manual) Plasma Cell % (Manual) Other Cells % Nucleated RBC % Neutrophils # (Manual) Band Neutrophils # Total Absolute Neuts Lymphocytes # (Manual) Prolymphocyte # Reactive Lymphs # Total Abs Lymphocytes Monocytes # (Manual) Eosinophils # (Manual) Basophils # (Manual) Metamyelocytes # (Man) Myelocytes # (Manual) Promyelocytes # (Man) Blast Cells # (Man) Plasma Cell # (Manual) Other Cells # Nucleated RBCs # (Man) Hypersegmented Neuts Hyposegmented Neuts Hypogranular Neuts Large Granular Lymphs # Lrg Granular Lymphs Hairy Cells Smudge Cells Toxic Granulation Toxic Vacuolation Dohle Bodies Chai Rods Platelet Estimate Hypogranular Platelets Giant Platelets Platelet Satelliting RBC Morphology Polychromasia Hypochromasia Poikilocytosis Basophilic Stippling Anisocytosis Microcytosis Macrocytosis Spherocytes Pappenheimer Bodies Sickle Cells Target Cells Tear Drop Cells Ovalocytes Stomatocytes Mcmahan-Kirwin Bodies Echinocytes Acanthocytes (Spur) Rouleaux RBC Agglutinates Schistocytes Peripher Smr Path Cons Sezary Cell PT 10.9 (9.0-12.0) Seconds INR 1.0 (0.9-1.1) Sodium (136-145) mmol/L Potassium (3.5-5.1) mmol/L Chloride (98-107) mmol/L Carbon Dioxide (21-32) mmol/L Anion Gap (3-11) BUN (6-23) mg/dl Creatinine (0.6-1.2) mg/dl Est Cr Clr Drug Dosing ml/min Est GFR ( Amer) ml/min Est GFR (Non-Af Amer) ml/min BUN/Creatinine Ratio (10-20) Glucose (70-99(Fasting)) mg/dl POC Glucose (70-99) mg/dl Calcium (8.6-10.3) mg/dl Phosphorus (2.5-4.9) mg/dl Magnesium (1.7-2.4) mg/dl Total Bilirubin (0.2-1.0) mg/dl AST (13-39) U/L ALT (7-52) U/L Alkaline Phosphatase (34-104) U/L Total Protein (6.0-8.3) gm/dl Albumin (3.4-5.0) gm/dl Globulin (2.5-4.0) gm/dl Albumin/Globulin Ratio (0.9-2) Blood Parasites ID
[2024-05-29] MEDS: MULTIVITAMIN TAB PO SCH (08:52)
[2024-05-29] MEDS: THIAMINE HCL 100 MG TAB PO SCH (08:52)
[2024-05-29] MEDS: FOLIC ACID 1 MG TAB PO SCH (08:52)
[2024-05-29] MEDS: NICOTINE 21 MG/24 HR TDSY TD SCH (10:31)
[2024-05-29] MEDS: MAGNESIUM SULFATE / D5W 1 GM/100 ML BAG IV SCH (10:34)
[2024-05-29] MEDS: MAGNESIUM OXIDE 400 MG TAB PO SCH (10:34)
--- NOTE | 2024-05-29 12:03 | Hospitalist Progress Note ---
Date of Service May 29, 2024 Assessment & Plan (1) Cellulitis: (2) Closed fracture of sesamoid bone of foot: (3) Alcohol abuse with withdrawal: (4) Alcoholic hepatitis: Plan Pt is a 58yoF with PMHx significant for DM 2 insulin requiring, anxiety/mood disorder, neuropathy, thrombocytopenia, ongoing tobacco/alcohol abuse presenting for monitored withdrawal. Alcohol abuse with withdrawal Alcoholic hepatitis AWSS DT precautions Continue to monitor on telemetry Encourage rehab R Foot Fracture History foreign body injury Cellulitis of RLE CT foot noting "Interval development of a nondisplaced fracture within the later al sesamoid bone at the head of the first metatarsal" Hx of foreign body injury Ortho consult, appreciate further recs Pain control Continue with doxycycline No sepsis for now DVT ruled out with doppler US Improving DMII insulin requiring Hgba1c of 7.8 Hold basal insulin for now given hypoglycemic episodes ISS BG goal 1 10-1 40, carb count coverage anxiety/mood disorder patient denies suicidality Continue home meds Thrombocytopenia noted from last month's confinement am peripheral smear Likely in setting of chronic alcohol use Diet: DMII Dispo: PT OT eval once medically stable for recs DVT prophylaxis. SCDs Full code Admission and Anticipated Discharge Date Admission Date: May 28, 2024 Subjective pt seen in AM. awake, talking. Discussion of her multiple admissions this year and her continued refusal to go to inpatient rehab. States she did not follow up on the outpatient resources last discharge as she had to go to a . States she does not go through withdrawal. States that she cannot do inpatient rehab as she has a cat at home and her mother. Review of Systems Review of Systems: All systems reviewed & are unremarkable except as noted in Subjective Physical Exam Physical Exam: General: No acute distress Skin: erythema to RLE Neuro: unarousable HEENT: NC/AT CV: RRR Resp: Breath sounds clear bilaterally, no increased effort of breathing. Abdomen:Soft Extremities:improving erythema to RLE, L BKA Results & Data Results & Data Vital Signs (Past 12 Hours) Vital Signs Temp Pulse Pulse Resp BP Pulse Ox O2 Del Method 05/29/24 11:17 36.4 C L 97 H 18 143/70 H 94 Room Air 05/29/24 08:02 37.1 C 96 H 18 162/85 H 95 Room Air 05/29/24 07:18 89 05/29/24 03:07 36.9 C 99 H 18 160/82 H 93 Room Air
[2024-05-30 06:13] LABS: Basophils # (auto) 0.02 K/uL (0.00-0.20); Basophils % (auto) 0.5 %; Eosinophils # (auto) 0.08 K/uL (0.00-0.50); Hematocrit (blood only) 35.4 % (37.0-47.0); Hemoglobin 12.2 g/dl (12.0-16.0); Immature Granulocytes # (auto) 0.02 K/uL (0.01-0.20); Immature Granulocytes % (auto) 0.5 %; Lymphocytes # (auto) 0.71 K/uL (1.20-3.40); Lymphocytes % (auto) 17.9 %; Mean Corpuscular Hemoglobin 31.4 pg (25.0-34.0); Mean Corpuscular Hgb Conc 34.5 g/dL (32.0-36.0); Mean Corpuscular Volume 91.2 fL (80.0-100.0); Mean Platelet Volume 11.1 fL (9.4-12.4); Monocytes # (auto) 0.18 K/uL (0.11-0.59); Monocytes % (auto) 4.5 %; Neutrophils # (auto) 2.96 K/uL (1.40-6.50); Neutrophils % (auto) 74.6 %; Platelet Count 46 K/uL (130-400); RDW Coefficient of Variation 13.7 % (11.5-14.5); RDW Standard Deviation 45.4 fL (36.4-46.3); Red Blood Count 3.88 M/uL (4.20-5.40); White Blood Count 3.97 K/ul (4.8-10.8)
[2024-05-30 06:38] LABS: Albumin Globulin Ratio 1.3 (0.9-2); Albumin Level 3.2 gm/dl (3.4-5.0); BUN Creatinine Ratio 9.5 (10-20); Bilirubin,Total 1.3 mg/dl (0.2-1.0); Calcium 8.2 mg/dl (8.6-10.3); Creatinine Clr Calc Pharmacy 91.1 ml/min; Est GFR (African American) 114.6 ml/min; Est GFR (Non-African American) 98.9 ml/min; Globulin 2.4 gm/dl (2.5-4.0); Magnesium 1.7 mg/dl (1.7-2.4); Phosphorus 2.8 mg/dl (2.5-4.9); Potassium 3.1 mmol/L (3.5-5.1); Total Protein 5.6 gm/dl (6.0-8.3)
[2024-05-30] MEDS: LANTUS PER UNIT CHARGE SQ SCH (07:27)
[2024-05-30] MEDS: POTASSIUM CHLORIDE PWD 20 MEQ PACK PO STA (07:27)
[2024-05-30] MEDS ORDERED: PHARMACY GLYCEMIC MGMT CONSULT PRN (10:45)
[2024-05-30] MEDS: CARBOHYDRATES FOR HYPOGLYCEMIA PO PRN (12:31)
--- NOTE | 2024-05-30 13:10 | Hospitalist Progress Note ---
Date of Service May 30, 2024 Assessment & Plan (1) Cellulitis: (2) Closed fracture of sesamoid bone of foot: (3) Alcohol abuse with withdrawal: (4) Alcoholic hepatitis: Plan Pt is a 58yoF with PMHx significant for DM 2 insulin requiring, anxiety/mood disorder, neuropathy, thrombocytopenia, ongoing tobacco/alcohol abuse presenting for monitored withdrawal. Alcohol abuse with withdrawal Alcoholic hepatitis AWSS DT precautions Continue to monitor on telemetry Encourage rehab R Foot Fracture History foreign body injury Cellulitis of RLE CT foot noting "Interval development of a nondisplaced fracture within the later al sesamoid bone at the head of the first metatarsal" Hx of foreign body injury Ortho consult, appreciate further recs Pain control Continue with doxycycline No sepsis for now DVT ruled out with doppler US Improving Diarrhea Started on 05/30 Likely in setting of alcohol withdrawal C diff and stool Cx pending prn loperamide DMII insulin requiring Hgba1c of 7.8 Hold basal insulin for now given hypoglycemic episodes ISS BG goal 1 10-1 40, carb count coverage anxiety/mood disorder patient denies suicidality Continue home meds Thrombocytopenia noted from last month's confinement am peripheral smear Likely in setting of chronic alcohol use Diet: DMII Dispo: PT OT eval once medically stable for recs DVT prophylaxis. SCDs Full code Admission and Anticipated Discharge Date Admission Date: May 28, 2024 Subjective pt seen in AM, multiple times. awake, talking. Per nursing pt incontinent of stool. Threatening to leave AMA. Pt AAOx3, in active withdrawal Review of Systems Review of Systems: All systems reviewed & are unremarkable except as noted in Subjective Physical Exam Physical Exam: General: No acute distress Skin: erythema to RLE Neuro: unarousable HEENT: NC/AT CV: RRR Resp: Breath sounds clear bilaterally, no increased effort of breathing. Abdomen:Soft Extremities:improving erythema to RLE, L BKA Results & Data Results & Data Vital Signs (Past 12 Hours) Vital Signs Temp Pulse Pulse Resp BP Pulse Ox O2 Del Method 05/30/24 11:55 36.5 C 90 18 165/93 H 95 Room Air 05/30/24 07:51 96 H 05/30/24 07:44 36.8 C 87 16 168/97 H 95 Room Air 05/30/24 02:51 36.9 C 80 18 166/89 H 97 Room Air
--- NOTE | 2024-05-30 13:59 | Pharmacy Report ---
Pharmacy Glycemic Short Note 2 - Date of Service May 30, 2024 - Glycemic Short BSG Results (Last 24 hours): 05/29/24 05/29/24 05/29/24 17:06 20:04 20:29 Glucose POC Glucose 222 H 45 L* 147 H 05/30/24 05/30/24 05/30/24 05:36 06:42 08:07 Glucose 452 H* POC Glucose 355 H* 278 H 05/30/24 05/30/24 05/30/24 12:25 12:30 12:46 Glucose POC Glucose 44 L* 45 L* 95 OUTPATIENT ANTIDIABETIC REGIMEN: * Lantus 28 units SC QPM * Novolog sliding scale HbA1c = 7.8% on 05/28/24 ASSESSMENT: * 58 y/o F admitted for alcohol abuse with withdrawal and cellulitis. She has history of Type 2 diabetes managed with basal and bolus insulins at home. * Patient has been admitted here couple of times in the last few months. Since admission two days ago her blood sugars have been fluctuating between highs and lows. BSGs yesterday were 677-89-813-45 mg/dl. Patient had been getting Novolog based on stress between and 2 and 3. * Fasting BSG today was 452 mg/dl. She was ordered basal 5 units today morning and pharmacy consulted for glycemic management. * Patient seems to be getting too much correctional insulin when her BSGs are high which ends up being too much for her causing hypoglycemia. * Based on data from recent admissions, Novolog correction factor is now loosened and basal 10 units added at HS to help prevent high fasting BSG. * Goal range also loosened and overnight checks added. PLAN FOR INPATIENT GLYCEMIC CONTROL: * Basal insulin * Lantus 5 units SQ QAM * Lantus 10 units SQ HS * Bolus insulin * NovoLog per scale ACHS or Q6hrs while NPO. 00 and 04 checks * Goal Range: Low 110 mg/dL - High 150 mg/dL * Correction Factor: 40 mg/dL/unit * Nutritional / Prandial insulin per carb ratio of 1 unit per 15 grams CHO consumed
[2024-05-30] MEDS ORDERED: LOPERAMIDE HCL 2 MG CAP PO PRN (15:48)
[2024-05-30] MEDS: LANTUS PER UNIT CHARGE SC SCH (21:25)
[2024-05-31] MEDS: INSULIN ASPART PER UNIT CHARGE SC SCH (00:09)
[2024-05-31] MEDS: NSS + 20MEQ KCL 20 MEQ/1,000 ML BAG IV ONE (04:08)
[2024-05-31 07:10] LABS: Basophils # (auto) 0.02 K/uL (0.00-0.20); Basophils % (auto) 0.3 %; Eosinophils # (auto) 0.18 K/uL (0.00-0.50); Eosinophils % (auto) 2.9 %; Hematocrit (blood only) 37.3 % (37.0-47.0); Hemoglobin 12.9 g/dl (12.0-16.0); Immature Granulocytes # (auto) 0.05 K/uL (0.01-0.20); Immature Granulocytes % (auto) 0.8 %; Lymphocytes % (auto) 16.3 %; Mean Corpuscular Hemoglobin 31.5 pg (25.0-34.0); Mean Corpuscular Hgb Conc 34.6 g/dL (32.0-36.0); Mean Corpuscular Volume 91.2 fL (80.0-100.0); Mean Platelet Volume 11.4 fL (9.4-12.4); Monocytes # (auto) 0.41 K/uL (0.11-0.59); Monocytes % (auto) 6.7 %; Neutrophils # (auto) 4.46 K/uL (1.40-6.50); Platelet Count 49 K/uL (130-400); RDW Coefficient of Variation 13.5 % (11.5-14.5); Red Blood Count 4.09 M/uL (4.20-5.40); White Blood Count 6.12 K/ul (4.8-10.8)
[2024-05-31 07:35] LABS: Albumin Globulin Ratio 1.4 (0.9-2); Albumin Level 3.3 gm/dl (3.4-5.0); BUN Creatinine Ratio 10.2 (10-20); Bilirubin,Total 1.1 mg/dl (0.2-1.0); Calcium 8.4 mg/dl (8.6-10.3); Creatinine Clr Calc Pharmacy 93.4 ml/min; Est GFR (African American) 117.1 ml/min; Globulin 2.4 gm/dl (2.5-4.0); Magnesium 1.8 mg/dl (1.7-2.4); Phosphorus 3.5 mg/dl (2.5-4.9); Potassium 3.7 mmol/L (3.5-5.1); Total Protein 5.7 gm/dl (6.0-8.3)
[2024-05-31 08:43] LABS: Appearance Urine Clear (Clear); Bacteria Urine Automated None Seen (None Seen); Bilirubin Urine Negative (Negative); Blood Urine Negative (Negative); Cast Urine Automated 0-2 /lpf (0-2); Color Urine Yellow; Epithelial Cell Urine Auto 0-2 /hpf (0-2); Glucose Urine UA Negative (Negative); Ketones Urine Negative (Negative); Leukocyte Esterase Urine 3+ (Negative); Nitrite Urine Negative (Negative); Protein Urine Negative (Negative); RBC Urine Automated 0-2 /hpf (0-2); Specific Gravity Urine 1.005 (1.000-1.030); Urobilinogen Urine Negative (Negative); WBC Urine Automated >50 /hpf (0-5)
--- NOTE | 2024-05-31 09:57 | Pharmacy Report ---
Pharmacy Glycemic Short Note 2 - Date of Service May 31, 2024 - Glycemic Short BSG Results (Last 24 hours): 05/30/24 05/30/24 05/30/24 12:25 12:30 12:46 Glucose POC Glucose 44 L* 45 L* 95 05/30/24 05/30/24 05/30/24 17:16 20:26 23:49 Glucose POC Glucose 238 H 143 H 446 H* 05/31/24 05/31/24 05/31/24 02:43 02:50 03:12 Glucose POC Glucose 35 L* 42 L* 127 H 05/31/24 05/31/24 06:27 08:01 Glucose 147 H POC Glucose 189 H OUTPATIENT ANTIDIABETIC REGIMEN: * Lantus 28 units SC QPM * Novolog sliding scale HbA1c = 7.8% on 05/28/24 ASSESSMENT: 05/31 * Patient received total of 39 units of insulin yesterday, of which 15 units were basal insulin * BSGs spiking overnight >400. Per previous discussion with RN, concerns for snacking during this time so this was not a true fasting BSG. Notes report patient's Lantus pen had also been brought in, however patient denies giving anything to herself. MD made aware of concerns for snacking/outside medications/cigarettes brought in. * Patient treated per hypoglycemia protocol and BSGs trending upward this AM 147, then 189 mg/dL - will continue with looser novolog parameters. Will give basal insulin at HS to match when she takes it typically at home 05/30 * 58 y/o F admitted for alcohol abuse with withdrawal and cellulitis. She has history of Type 2 diabetes managed with basal and bolus insulins at home. * Patient has been admitted here couple of times in the last few months. Since admission two days ago her blood sugars have been fluctuating between highs and lows. BSGs yesterday were [phone] mg/dl. Patient had been getting Novolog based on stress between and 2 and 3. * Fasting BSG today was 452 mg/dl. She was ordered basal 5 units today morning and pharmacy consulted for glycemic management. * Patient seems to be getting too much correctional insulin when her BSGs are high which ends up being too much for her causing hypoglycemia. * Based on data from recent admissions, Novolog correction factor is now loosened and basal 10 units added at HS to help prevent high fasting BSG. * Goal range also loosened and overnight checks added. PLAN FOR INPATIENT GLYCEMIC CONTROL: * Basal insulin * Lantus 15 units HS * Bolus insulin * NovoLog per scale ACHS or Q6hrs while NPO. * Goal Range: Low 110 mg/dL - High 150 mg/dL * Correction Factor: 40 mg/dL/unit * Nutritional / Prandial insulin per carb ratio of 1 unit per 15 grams CHO consumed
--- NOTE | 2024-05-31 16:21 | Hospitalist Progress Note ---
Date of Service May 31, 2024 Assessment & Plan (1) Cellulitis: (2) Closed fracture of sesamoid bone of foot: (3) Alcohol abuse with withdrawal: (4) Alcoholic hepatitis: Plan Pt is a 58yoF with PMHx significant for DM 2 insulin requiring, anxiety/mood disorder, neuropathy, thrombocytopenia, ongoing tobacco/alcohol abuse presenting for monitored withdrawal. Alcohol abuse with withdrawal Alcoholic hepatitis AWSS DT precautions Continue to monitor on telemetry Encourage rehab R Foot Fracture History foreign body injury Cellulitis of RLE CT foot noting "Interval development of a nondisplaced fracture within the later al sesamoid bone at the head of the first metatarsal" Hx of foreign body injury Ortho consult, appreciate further recs Pain control Continue with doxycycline No sepsis for now DVT ruled out with doppler US Improving Diarrhea Started on 05/30 Likely in setting of alcohol withdrawal C diff and stool Cx pending prn loperamide DMII insulin requiring Hgba1c of 7.8 Hold basal insulin for now given hypoglycemic episodes ISS BG goal 1 10-1 40, carb count coverage anxiety/mood disorder patient denies suicidality Continue home meds Thrombocytopenia noted from last month's confinement am peripheral smear Likely in setting of chronic alcohol use Diet: DMII Dispo: PT OT eval once medically stable for recs DVT prophylaxis. SCDs Full code Admission and Anticipated Discharge Date Admission Date: May 28, 2024 Subjective pt seen in AM, multiple times. awake, talking. Denies acute concerns. No further episodes of soft BMs per nursing. Review of Systems Review of Systems: All systems reviewed & are unremarkable except as noted in Subjective Physical Exam Physical Exam: General: No acute distress Skin: erythema to RLE Neuro: unarousable HEENT: NC/AT CV: RRR Resp: Breath sounds clear bilaterally, no increased effort of breathing. Abdomen:Soft Extremities:improving erythema to RLE, L BKA Results & Data Results & Data Vital Signs (Past 12 Hours) Vital Signs Temp Pulse Pulse Resp BP Pulse Ox O2 Del Method 05/31/24 14:49 82 05/31/24 14:44 37.0 C 88 16 115/69 99 Room Air 05/31/24 11:30 37.4 C 73 16 138/84 96 Room Air 05/31/24 07:18 36.8 C 80 16 131/78 97 Room Air 05/31/24 07:16 85
[2024-05-31] MEDS: LANTUS PER UNIT CHARGE SC SCH (20:48)
[2024-06-01] MEDS: INSULIN ASPART PER UNIT CHARGE SC SCH (00:15)
[2024-06-01 05:56] LABS: Basophils # (auto) 0.05 K/uL (0.00-0.20); Basophils % (auto) 0.9 %; Eosinophils # (auto) 0.25 K/uL (0.00-0.50); Eosinophils % (auto) 4.3 %; Hematocrit (blood only) 38.2 % (37.0-47.0); Hemoglobin 12.9 g/dl (12.0-16.0); Immature Granulocytes # (auto) 0.05 K/uL (0.01-0.20); Immature Granulocytes % (auto) 0.9 %; Lymphocytes # (auto) 1.45 K/uL (1.20-3.40); Lymphocytes % (auto) 25.1 %; Mean Corpuscular Hemoglobin 31.2 pg (25.0-34.0); Mean Corpuscular Hgb Conc 33.8 g/dL (32.0-36.0); Mean Corpuscular Volume 92.5 fL (80.0-100.0); Mean Platelet Volume 10.9 fL (9.4-12.4); Monocytes # (auto) 0.57 K/uL (0.11-0.59); Monocytes % (auto) 9.9 %; Neutrophils # (auto) 3.41 K/uL (1.40-6.50); Neutrophils % (auto) 58.9 %; Platelet Count 74 K/uL (130-400); RDW Coefficient of Variation 13.9 % (11.5-14.5); Red Blood Count 4.13 M/uL (4.20-5.40); White Blood Count 5.78 K/ul (4.8-10.8)
[2024-06-01 06:11] LABS: Albumin Globulin Ratio 1.4 (0.9-2); Albumin Level 3.4 gm/dl (3.4-5.0); BUN Creatinine Ratio 15.8 (10-20); Bilirubin,Total 0.8 mg/dl (0.2-1.0); Calcium 8.5 mg/dl (8.6-10.3); Creatinine Clr Calc Pharmacy 96.6 ml/min; Est GFR (African American) 118.4 ml/min; Est GFR (Non-African American) 102.2 ml/min; Globulin 2.5 gm/dl (2.5-4.0); Phosphorus 4.3 mg/dl (2.5-4.9); Potassium 3.3 mmol/L (3.5-5.1); Total Protein 5.9 gm/dl (6.0-8.3)
[2024-06-01 07:47] VITALS: RESP 18; O2SAT 95
[2024-06-01 11:11] VITALS: TEMP 98.6
[2024-06-01] MEDS ORDERED: LORazepam 2 MG/1 ML VIAL IV PRN ×2 (13:52→13:56)
--- NOTE | 2024-06-01 13:53 | Discharge Summary ---
Discharge Summary Date of Service June 01, 2024 Principal Dx & Hospital Course #1 = Principal Diagnosis (1) Cellulitis: (2) Closed fracture of sesamoid bone of foot: (3) Alcohol abuse with withdrawal: (4) Alcoholic hepatitis: Plan Pt is a 58yoF with PMHx significant for DM 2 insulin requiring, anxiety/mood disorder, neuropathy, thrombocytopenia, ongoing tobacco/alcohol abuse presenting for monitored withdrawal. Alcohol abuse with withdrawal Alcoholic hepatitis Alcohol level of 505.6 on admission AWSS protocol, DT precautions Monitored on telemetry during withdrawal Pt with copious soft stools, tachycardic and hypertensive at times likely in setting above Encouraged alcohol rehab, pt refused Provided resources by Case Management. PCP follow up. R Foot Fracture History foreign body injury Cellulitis of RLE CT foot noting "Interval development of a nondisplaced fracture within the lateral sesamoid bone at the head of the first metatarsal" Hx of foreign body injury Pain control Cellulitis treated with doxycycline, noted improvement. Discharged with an additional 6 days No sepsis DVT ruled out with doppler US Orthopedics was consulted for the noted fracture, recommended/stated the following: "WBAT through heel in post-op shoe. RICE... Can follow-up as an outpatient at [facility] with Dr. García." Diarrhea Started on 05/30 Likely in setting of alcohol withdrawal C diff and stool Cx were ordered but not collected prn loperamide DMII insulin requiring Hgba1c of 7.8 Held basal insulin given hypoglycemic episodes Resume home regimen on discharge anxiety/mood disorder patient denies suicidality Continue home meds Thrombocytopenia noted from last month's confinement Peripheral Smear read by pathology noted the following: "The associated CBC shows a platelet count of 62,000 with a normal mean platelet volume of 10.3 is noted.The overall findings are that of a non-specific thrombocytopenia. Thrombocytopenia may be related to alcohol abuse. No morphologic abnormalities, including evidence of hemolysis or overt myelodysplasia, are noted.If clinically indicated, an immature platelet fraction (IPF), which is available at [facility], may be useful to evaluate as to whether the thrombocytopenia is due to peripheral destruction/sequestration or lack of production in the bone marrow." Likely in setting of chronic alcohol use PCP follow up Notes For Next Care Provider Per Orthopedics: "WBAT through heel in post-op shoe. RICE... Can follow-up as an outpatient at [facility] with Dr. García." Please ensure follow up as above with [facility] Please encourage alcohol cessation/ rehab Medication Changes From Visit Doxycycline 100mg BID x 6 more days Admission HPI Per Admitting Provider History obtained from patient and records. Medical history significant for DM 2 insulin requiring, anxiety/mood disorder, neuropathy, thrombocytopenia, ongoing tobacco/alcohol abuse. Three admissions since March 2024 for alcohol intoxication. Recent confinement 3 weeks ago for alcohol withdrawal. Right foot trauma resulting from glass foreign body. Glass removed from right foot as per DC note. Patient declined multiple attempts for rehab. Patient not answering calls from outpatient case management for follow-up appointment as per documentation. Patient consumed alcohol upon return home. Denies unusual depression or suicidality. Few days ago, patient noted worsening right foot swelling with extension to right lower leg. No fever, no chills, no chest pain, no SOB. Unwitnessed syncopal events at home secondary to low sugar as per patient. BG 30s as per patient. Patient denies seizures, tongue biting, incontinence. Patient called mother on the phone asking for help. Patient brought to ER by EMS. 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 Admission Exam Per Admitting Provider GENERAL: uncomfortable, covered in blankets, tremulous, no respiratory distress SKIN: Normal color, warm HEENT: [place] palpebral conjunctivae, no ptosis, dry buccal mucosa NECK : Supple, no tenderness CHEST : CTA, no tenderness HEART : RRR, no obvious murmurs ABDOMEN: Some distention, nontender EXTREMITIES : Tender RLE/right foot erythema, left BKA stump NEUROLOGIC : Coherent, no facial asymmetry, tremulous Discharge Exam General: No acute distress Skin: erythema to RLE Neuro: unarousable HEENT: NC/AT CV: RRR Resp: Breath sounds clear bilaterally, no increased effort of breathing. Abdomen:Soft Extremities:improving erythema to RLE, L BKA Updated Medication List Medication Instructions Recorded Confirmed Type cyanocobalamin (vitamin B-12) 1,000 mcg PO DAILY 05/10/20 05/04/24 History 1,000 mcg tablet (Vitamin B-12) multivitamin 1 tab PO DAILY 12/24/21 05/04/24 History folic acid 1 mg tablet 1 mg PO DAILY 05/21/22 05/04/24 History fluticasone propionate 50 1 spray intranasal DAILY 03/11/23 05/04/24 History mcg/actuation nasal spray,suspension duloxetine 60 mg capsule,delayed 60 mg PO QAM #30 caps 09/26/23 05/04/24 Rx release (Cymbalta) xkwtaz-quqscokj-ypctget 1 cap PO TID #90 caps 09/26/23 05/04/24 Rx 6,000-19,000-30,000 unit capsule,delayed rel (Creon) flash glucose sensor (FreeStyle 04/04/24 05/04/24 History Janny 2 Sensor kit) gabapentin 300 mg capsule See Rx Instructions .Route .COMPLEX 04/04/24 05/04/24 History insulin aspart U-100 100 unit/mL 0 sliding scale dose subcut AC 04/04/24 05/28/24 History (3 mL) subcutaneous pen (Novolog FlexPen U-100 Insulin aspart) insulin glargine 100 unit/mL (3 28 unit subcut QPM 04/04/24 05/28/24 History mL) subcutaneous pen (Lantus Solostar U-100 Insulin) melatonin 5 mg tablet 5 mg PO HS PRN Sleep 04/04/24 05/04/24 History triamcinolone acetonide 0.1 % 1 applic topical DAILY PRN 04/04/24 05/04/24 Histo ry topical cream psoriasis B-complex with vitamin C 1 cap PO DAILY 05/04/24 05/04/24 History magnesium oxide 500 mg PO DAILY 05/04/24 05/04/24 History nicotine 7 mg/24 hr daily 1 patch transdermal QAM #30 ea 05/06/24 Rx transdermal patch doxycycline hyclate 100 mg capsule 100 mg PO BID #12 caps 06/01/24 Rx Hospital Stay Data Consultations 05/28/24 04:53 ED Decision to Admit Stat 05/28/24 10:42 Consult Orthopedic Surgery Routine Diagnostic Imagining Performed 05/28/24 06:18 US venous duplex leg [US venous doppler LE RT] Stat 05/28/24 07:55 CT foot RT w con Stat Venous Doppler Study 05/28/24 06:18 ULTRASOUND RIGHT LOWER EXTREMITY VENOUS CLINICAL HISTORY: Right lower extremity swelling. COMPARISON STUDY: No priors TECHNIQUE: Real-time, grayscale, and color Doppler sonography of the deep veins of the right lower extremity was performed from the inguinal crease to the calf. Compression and augmentation were utilized. FINDINGS: There is no sonographic evidence of deep venous thrombosis identified in the right lower extremity. The common femoral, superficial femoral, and popliteal veins are patent and normally compressible. The greater saphenous vein and the profunda femoris vein at the junction with the common femoral vein are clear. The visualized calf veins are patent. IMPRESSION: There is no sonographic evidence of deep venous thrombosis identified in the right lower extremity. ACT 112: Negative or not required by law. Electronically signed by: Lauro Nj M.D. 05/28/2024 7:[address] 05/28/24 07:55 CT foot RT w con CT DOSE: 397.25 mGy.cm CLINICAL HISTORY: Right foot swelling swelling, hx FB TECHNIQUE: Multiaxial CT images of the right foot were performed following the intravenous administration of contrast and reformatted in the sagittal and coronal plane. A dose lowering technique was utilized adhering to the principles of ALARA. COMPARISON STUDY: Right foot radiographs 05/04/2024. FINDINGS: Interval development of a nondisplaced fracture within the lateral sesamoid bone at the head of the first metatarsal. This is best seen on axial image 249. No additional fractures within the right foot. No dislocation. No bony destructive changes to suggest an osteomyelitis. Soft tissue swelling at the first MTP joint. There is dorsal subcutaneous edema within the foot. No radiopaque foreign bodies. No loculated fluid collections to suggest an abscess. There is diffuse fatty atrophy within the right foot musculature. The flexor, extensor, peroneal, and visualized Achilles tendon appear intact. IMPRESSION: 1. Interval development of a nondisplaced fracture within the lateral sesamoid bone at the head of the first metatarsal. 2. Soft tissue swelling at the first MTP joint. 3. No radiopaque foreign bodies. 4. Dorsal subcutaneous edema within the foot. No loculated fluid collections to suggest an abscess. ACT 112: Negative or not required by law. Electronically signed by: Delano Murry M.D. 05/28/2024 9:03 AM Discharge Instructions Given to Patient (Per Discharging Provider) Yin, You were admitted for alcohol withdrawal and an infection as well as fracture in your right lower extremity. It is very important that you do not use alcohol after discharge. You were provided with resources for rehab and assistance with alcohol cessation. Please use these to help. Continue with the antibiotic doxycycline for 6 more days for the infection in your leg. Please continue to use the post-op shoe that orthopedics recommended and keep close follow up with Orthopedics/Podiatry after discharge. Please also keep close follow up with your primary care provider after discharge. Please do not hesitate to come back to the emergency room if your symptoms worsen or return. It was a pleasure taking care of you while you were here. Total Time Total Time Spent Total Time Spent (In Minutes): 65
[2024-06-01] MEDS: POTASSIUM CHLORIDE CRTAB 20 MEQ TABCR PO STA (15:06)
[2024-06-01 15:56] VITALS: BP 130/112; PULSE 88
== END 2024-06-01 16:23 | disposition home health service (06) | DRG 603 ==
LOC: ED 02:57 → EDINP 06:17 → 2N 17:22

== ENCOUNTER 2024-11-16 16:53 | Inpatient (IN) ==
[2024-11-16 17:21] LABS: iSTAT Creatinine 0.9 mg/dl (0.6-1.3); iSTAT Ionized Calcium 0.96 mmol/l (1.12-1.32); iSTAT Potassium 5.2 mmol/L (3.3-5.0)
[2024-11-16 17:24] LABS: Basophils # (auto) 0.13 K/uL (0.00-0.20); Basophils % (auto) 1.3 %; Eosinophils # (auto) 0.04 K/uL (0.00-0.50); Eosinophils % (auto) 0.4 %; Hematocrit (blood only) 46.7 % (37.0-47.0); Hemoglobin 16.3 g/dl (12.0-16.0); Immature Granulocytes # (auto) 0.02 K/uL (0.01-0.20); Immature Granulocytes % (auto) 0.2 %; Lymphocytes # (auto) 2.61 K/uL (1.20-3.40); Lymphocytes % (auto) 25.5 %; Mean Corpuscular Hgb Conc 34.9 g/dL (32.0-36.0); Mean Corpuscular Volume 91.7 fL (80.0-100.0); Mean Platelet Volume 9.5 fL (9.4-12.4); Monocytes # (auto) 0.55 K/uL (0.11-0.59); Monocytes % (auto) 5.4 %; Neutrophils # (auto) 6.87 K/uL (1.40-6.50); Neutrophils % (auto) 67.2 %; Platelet Count 372 K/uL (130-400); RDW Coefficient of Variation 12.4 % (11.5-14.5); RDW Standard Deviation 41.8 fL (36.4-46.3); Red Blood Count 5.09 M/uL (4.20-5.40); White Blood Count 10.22 K/ul (4.8-10.8)
[2024-11-16] MEDS: NALOXONE HCL 0.4 MG/1 ML VIAL/CARP IV STA (17:36)
[2024-11-16 17:42] LABS: Albumin Level 4.4 gm/dl (3.4-5.0); BUN Creatinine Ratio 11.5 (10-20); Bilirubin Direct 0.1 mg/dl (0-0.2); Bilirubin,Total 0.5 mg/dl (0.2-1.0); Calcium 9.5 mg/dl (8.6-10.3); Creatinine Clr Calc Pharmacy 90.5 ml/min; Magnesium 2.3 mg/dl (1.7-2.4); Potassium 5.1 mmol/L (3.5-5.1); Total Protein 7.6 gm/dl (6.0-8.3)
[2024-11-16 17:54] LABS: Appearance Urine Cloudy (Clear); Bacteria Urine Automated 2+ (None Seen); Bilirubin Urine Negative (Negative); Blood Urine Trace (Negative); Color Urine Yellow; Glucose Urine UA Negative (Negative); Ketones Urine 1+ (Negative); Leukocyte Esterase Urine 1+ (Negative); Nitrite Urine Negative (Negative); Protein Urine 1+ (Negative); Specific Gravity Urine 1.018 (1.000-1.030); Urobilinogen Urine Negative (Negative); WBC Urine Automated 21-50 /hpf (0-5); pH Urine 5.5 (4.5-7.5)
[2024-11-16 18:09] LABS: Amphetamines+Metham, Urine Neg (Neg); Barbiturates, Urine Neg (Neg); Benzodiazepine, Urine Neg (Neg); Cocaine, Urine Neg (Neg); Fentanyl, Urine Neg (Neg); MDMA (Ecstacy), Urine Neg (Neg); Marijuana, Urine Pos (Neg); Methadone, Urine Neg (Neg); Opiate, Urine Neg (Neg); Phencyclidine, Urine Neg (Neg)
[2024-11-16] MEDS: OPTIRAY 320 125ml IV ONE (18:12)
[2024-11-16] MEDS: cefTRIAXone SODIUM 2,000 MG/50 ML BAG IV STA (18:26)
--- NOTE | 2024-11-16 18:34 | CT Scan Report ---
REASON FOR STUDY: Unresponsive. Patient fell with left facial trauma HISTORY: EtOH EXAM: CTA head/brain without contrast Previous study: None available Findings: No acute intracranial mass, hemorrhage or edema is seen. There is some diffuse atrophy. No midline shift or ventriculomegaly is seen. No extra-axial blood or fluid collection. Small arachnoid cyst seen in the right posterior middle cranial fossa measuring approximately 3.0 cm. The mastoids and visualized paranasal sinuses are clear. No acute process of the bony calvarium is noted. IMPRESSION: 1. Negative for acute intracranial process. 2. Small arachnoid cyst right middle cranial fossa. Electronically signed by Franky Marin 11-16-2024 6:33 PM
--- NOTE | 2024-11-16 18:42 | CT Scan Report ---
EXAM: CT angiogram of the neck with contrast PROVIDED HISTORY: Patient unresponsive status post fall with left facial trauma COMPARISON: None TECHNIQUE: Helical CT angiography of the neck was performed following uneventful administration of Omnipaque 350. Images are presented in axial, sagittal, and coronal reformats. Multiplanar MIP reconstructions are also provided. FINDINGS: ANGIOGRAM: Typical 3 vessel origin is seen at the aortic arch with some plaquing but no major stenosis at this level. There is an approximately 70% stenosis at the origin of the left vertebral artery from the left subclavian and 80% stenosis at the origin of the right vertebral artery from the right brachiocephalic/subclavian artery. The right carotid bifurcation shows an extremely dense calcified aponeurotic deposit at the origin of the right internal carotid artery making determination of stenosis difficult however there is a high-grade stenosis in the proximal right internal carotid artery of approximately 90%. The left carotid artery shows a dense calcific deposit at the origin of the left internal carotid artery produces a maximum of approximately 50% stenosis at this time. Intact vertebral artery flow is seen in bilaterally to form the basilar artery. Impression: 1. High-grade 90% stenosis in the proximal right internal carotid artery. Dense calcified plaque present at this level. 2. 50% stenosis at the origin of the left internal carotid artery with a dense calcified plaque present. 3. 70% stenosis at the origin of the left vertebral artery. 4. 80% stenosis at the origin of the right vertebral artery. Electronically signed by Franky Marin 11-16-2024 6:42 PM
--- NOTE | 2024-11-16 18:47 | CT Scan Report ---
REASON FOR EXAM: Patient unresponsive CTA HEAD INCLUDING REFORMATED IMAGES: TECHNIQUE: Standard departmental protocols were used. Axial, coronal, sagittal and 3D images were reviewed. COMPARISON: None FINDINGS: Intact flow is seen in the distal internal carotid arteries bilaterally. Plaquing with the maximum 50% stenosis seen in the distal internal carotid arteries at the level of the carotid siphon bilaterally. Intact flow is seen in the arteries about the [place] without major stenosis or occlusion at this level. No aneurysm or hemorrhage is seen. Intact vertebrobasilar flow is seen in the. No major stenosis in the posterior circulation seen at this time. IMPRESSION: 1. Calcified plaque within maximum 50% stenosis of the distal internal carotid arteries. 2. Otherwise no significant intracranial stenosis or aneurysm seen at this time. Electronically signed by Franky Marin 11-16-2024 6:46 PM
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
--- NOTE | 2024-11-16 19:09 | XRay Report ---
Exam: One view portable chest HISTORY: Unresponsive Previous studies: 05/03/2024 FINDINGS: Cardiac size remains normal. Lungs show some hyperexpansion but no acute infiltrate, collapse or edema. Old healed left rib fractures are stable. IMPRESSION: Stable appearance without acute disease seen at this time. Electronically signed by Franky Marin 11-16-2024 7:08 PM
[2024-11-16 19:25] LABS: Base Excess VBG -1.8 mEq/L; HCO3 VBG 24 mmol/L; Oxygen Saturation VBG 89.2 %; PCO2 VBG 42 mmHg (38-50); PO2 VBG 61 mmHg; pH VBG 7.36 (7.36-7.41)
[2024-11-16] MEDS: ONDANSETRON INJ 2 MG/ML 2 ML VIAL IV STA (20:16)
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
[2024-11-16] MEDS: FOLIC ACID 1 MG in SYRINGE 9.8 ML IV STA (22:32)
[2024-11-16] MEDS: THIAMINE HCL 100 MG in SYRINGE 9 ML IV STA (22:33)
[2024-11-16] MEDS: SODIUM CHLORIDE 0.9% 1,000 ML IV ONE (22:33)
[2024-11-16] MEDS ORDERED: GLUCAGON FOR INJ 1 MG VIAL SQ PRN (23:04)
[2024-11-16] MEDS ORDERED: CARBOHYDRATES FOR HYPOGLYCEMIA PO PRN (23:04)
[2024-11-16] MEDS ORDERED: Ativan IV Alcohol Withdrawal--Active Protocol IV PRN (23:04)
[2024-11-16] MEDS ORDERED: NITROGLYCERIN SL 0.4 MG/TAB TAB SL PRN (23:04)
[2024-11-16] MEDS ORDERED: DEXTROSE 50% 50 ML SYRINGE IV PRN (23:04)
[2024-11-16] MEDS ORDERED: GLUCOSE 40% GEL 15 GM TUBE PO PRN (23:04)
[2024-11-16] MEDS ORDERED: LORazepam 2 MG/1 ML VIAL IV PRN ×2 (23:04)
[2024-11-16] MEDS ORDERED: PHARMACIST DISCHARGE MED REC CONSULT PRN (23:04)
[2024-11-16] MEDS ORDERED: GABAPENTIN 1200MG ALCOHOL WITHDRAWAL LOAD PO STA (23:04)
[2024-11-16] MEDS ORDERED: GLUCOSE 10 TAB/TUBE PO PRN (23:04)
[2024-11-16] MEDS: SODIUM CHLORIDE 0.9% 500 ML IV ONE (23:06)
[2024-11-16] MEDS: SODIUM CHLORIDE 0.9% 1,000 ML IV SCH (23:40)
[2024-11-17] MEDS: LORazepam 2 MG/1 ML VIAL IV PRN (00:02)
[2024-11-17] MEDS: SODIUM CHLORIDE 0.9% 500 ML IV ONE (00:02)
[2024-11-17] MEDS: GABAPENTIN 600 MG TAB PO ONE (00:05)
[2024-11-17] MEDS: PIPERACILLIN/TAZOBACTAM 4.5 GM/100 ML BAG IV SCH (00:30)
[2024-11-17] MEDS: GABAPENTIN 600 MG TAB PO SCH (05:18)
--- OUTSIDE RECORDS SUMMARY | 2024-11-17 05:27 | External Medical Summary | Summary of Care ---
Author Name Unknown Organization [facility] Address [address] [place] [address] Phone [phone] Care Team Providers Care Farm Contractor Name Role Phone Ingrid Mejias PA-C Primary Care Provider [phone] Reason for Visit * Reason Onset Date Comments No Show 08/24/2024 [facility] No Show Auto mation Encounter Details Date Type Department Care Team (Late st Contact Info) Description 08/24/2024 Telephone Family Practice [facility] [address] [facility] [place] [id number] Ingrid Mejias PA-C [address] [facility] [place] [id number] No Show ([facility] No Show Automation) Allergies Active Allergy Reactions Criticality Noted Date Comments Lorazepam 05/20/2016 Haloperidol Lactate 05/20/2016 documented as of this encounter (statuses as of 08/24/2024) Medications Cyanocobalamin 2500 MCG CHEW Take 1,000 mcg by mouth. Active Multiple Vitamins-Mineral s (MULTIVITAMIN ADULT) TABS Take by mouth. Act jens fluticasone (FLONASE) 50 MCG/ACT nasal spray Administer 1 [place] into nostril in the morning. Active triamcinolone acetonide (ARISTOCORT) 0.1 % cream apply to PSORIASIS ON BODY TWICE DAILY FOR 2 WEEKS, THEN DAILY NEEDED 0 6 Active Creon [id number] UNIT Oral Capsule Delayed Release Particles Take [...] 30 MG Oral Capsule Delayed Release Particles (Cymbalta)Indica tions:CARMELINA (generalized anxiety disorder) Take 1 Capsule by mouth in the morning. 30 Capsule 5 4 Active Additional Information Patient not taking.Reported on 04/13/2024 Gabapentin 300 MG Oral Capsule (Neurontin) 1 cap in am, 1 capt noon, 2 caps at bedtime 120 Capsule 5 4 Active Melatonin 5 MG Oral Capsule Take 1 Capsule by mouth at bedtime. 4 Active Folic Acid 1 MG Oral Tablet Take 1 Tablet by mouth in the morning. 4 Active documented as of this encounter (statuses as of 08/24/2024) Active Problems Problem Noted Date Diagnosed Date Medical marijuana use 03/31/2024 History of amputation of left leg through tibia and fibula 10/20/2023 Type 2 diabetes mellitus wit h diabetic mononeuropathy, with long-term current use of insulin 10/20/2023 documented as of this encounter (statuses as of 08/24/2024) Immunizations Name Administration Dates Next Due TDAP [...] ages 0-17 years) Not on file 01/13/2024 Comments No Sex and Gender Information Value Date Recorded Sex Assigned at Female 01/13/2024 10:21 AM EDT Legal Sex Female 1:07 PM EDT Gender Identity Female 01/13/2024 10:21 AM EDT Sexual Orientation Straight 01/13/2024 10 :21 AM EDT documented as of this encounter Miscellaneous Notes * Telephone Encounter - Marcello, No Show - 08/24/2024 3:23 PM EST Dear Gem Chiu, Looks like you missed an appointment with INGRID Pearson ABIMAEL on 08/17/2024 at 01:00 PM. If you haven't already rescheduled, you have a couple of options: Reschedule in [email or web address] Call us at [phone] Can't make a future appointment? Cancel and let someone else have your spot! It's easy to do via Eveo or by calling us. Thanks for trusting [facility] with your care. We hope to see you back in our office soon. Sincerely, INGRID MEJIAS documented in this encounter Plan of Treatment Upcoming Encounters Date Type Department Care Team (Late st Contact Info) Description 12/28/2024 10:30 AM EDT Office Visit Gynecology/Obstetrics Sharri Villatoro [address] [place] [id number] Sandra Kauffman CRNP [address] [place] [id number] Health Maintenance Due Date Last Done Comments DISCUSS TOBACCO CESSATION (REFER TO SMARTSET #[id number]) 1965 Depression Screening 1977 HIV Screening 1980 Albumin/Creatinine Ratio 12/26/1983 Hepatitis C Screening 12/26/1983 Hepatitis B Vaccine (1 of 3 - 19+ 3-dose series) 1984 HPV/Co-Test 12/26/1995 Cologuard 2010 Colonoscopy 2010 Colorectal Cancer Screening 2010 Fecal Occult Blood Test 2010 Sigmoidoscopy 2010 Zoster Vaccines (1 of 2) 12/26/2015 Cervical Cancer Screening 05/20/2019 Pap Smear 05/20/2019 05/20/2016 COVID-19 Vaccine ( - 2023-2 5 season) 2024 Influenza Vaccine (FLU shot) (#1) 2024 09/05/2021, 08/15/2020, 01/03/2020 HbA1c 07/15/2024 01/14/2024 DTap/Tdap Vaccines (2 - Td o r Tdap) 08/20/2024 08/20/2014 Diabetic Eye Exam 01/13/2025 01/14/2024 Diabetic Foot Exam 01/13/2025 01/14/2024 GFR 01/13/2025 01/14/2024, 05/20/2016 Mammogram 02/23/2025 02/24/2024, 06/17/2016, 05/31/2016 Lipid Panel 01/13/2029 01/14/2024 Pneumococcal Vaccine: Pediatrics (0 to 5 Years) and At-Risk Patients (6 to 64 Years) (3 of 3 - PPSV23 or PCV20) 2030 01/03/2020, 06/15/2016, 05/11/2016 HPV (Gardasil) Vaccine Aged Out No lo nger eligible based on patient's age to complete this topic MENINGOCOCCAL (MENACTRA/MENVEO) Aged Out No longer eligible b ased on patient's age to complete this topic documented as of this encounter Medical Devices Not on filedocumented as of this encounter Care Teams Farm Contractor Relationship Specialty Start Date End Date [place] CECIL Pearson [address] [facility] [place] [address] PCP - General Physician Rounding Machine Tender 01/14/24 documented as of this encounter
--- OUTSIDE RECORDS SUMMARY | 2024-11-17 05:28 | External Medical Summary | Summary of Care ---
Author Name Unknown Organization [facility] Address [address] [place] [address] Phone [phone] Care Team Providers Care Resource Coordinator Name Role Phone Ingrid Mejias PA-C Primary Care Provider [phone] Reason for Visit * Reason Onset Date Comments Hospital Follow-Up 05/13/2024 Encounter Details Date Type Department Care Team (Late st Contact Info) Description 05/13/2024 Telephone Family Practice [facility] [place] [address] [facility] [place] [address] Ingrid Mejias PA-C [address] [facility] [place] [id number] Hospital Follow-Up Allergies Active Allergy Reactions Criticality Noted Date Comments Lorazepam 05/20/2016 Haloperidol Lactate 05/20/2016 documented as of this encounter (statuses as of 08/12/2024) Medications Medication Sig Dispensed Refills Start Date End Date Status Cyanocobalamin 2500 MCG CHEW Take 1,000 mcg by mouth. Active Multiple Vitamins-Minerals (MULTIVITAMIN ADULT) TABS Take by mouth. Active fluticasone (FLONASE) 50 MCG/ACT nasal spray Administer 1 Talpa into nostril in the morning. Active triamcinolone acetonide (ARISTOCORT) 0.1 % cream apply to PSORIASIS ON BODY TWICE DAILY FOR 2 WEEKS, THEN DAILY NEEDED 0 05/15/2016 Active Creon [id number] UNIT Oral Capsule Delayed Release Particles Take [...] as of this encounter (statuses as of 08/12/2024) Active Problems Problem Noted Date Diagnosed Date Medical marijuana use 03/31/2024 History of amputation of left leg through tibia and fibula 10/20/2023 Type 2 diabetes mellitus wit h diabetic mononeuropathy, with long-term current use of insulin 10/20/2023 documented as of this encounter (statuses as of 08/12/2024) Immunizations Name Administration Dates Next Due TDAP [...] encounter Miscellaneous Notes * Telephone Encounter - Angy Salazar RN - 05/13/2024 8:46 AM EDT Can schedule with provider in Internal Med or another FP. Also there is an ER follow up at 1140 on 05/[address] Wellington Please schedule appt for pt and let her know. * Telephone Encounter - Stephen Coughlin OSA - 05/13/2024 8:20 AM EDT No Appointments Available Patient declined appointments?: No What Visit Type is needed? Hospital Discharge If Acute Visit Type is needed, were surrounding clinics offered to patient (Yes/No)? N/A Was patient offered appointments with other available providers (Yes/No)? Yes See Call Details? (Yes or No): Yes documented in this encounter Plan of Treatment Upcoming Encounters Date Type Department Care Team (Late st Contact Info) Description 08/17/2024 1:00 PM EST Office Visit Family Practice [facility] [place] [address] [facility] [place] [address] Ingrid Mejias PA-C [address] [facility] [place] [address] 12/28/2024 10:30 AM EDT Office Visit Gynecology/Obstetrics [facility] [address] [place] [address] Sandra Kauffman CRNP [address] [place] [address] Health Maintenance Due Date Last Done Comments DISCUSS TOBACCO CESSATION (REFER TO SMARTSET #2601) 1965 Depression Screening 1977 HIV Screening 1980 Albumin/Creatinine Ratio 12/26/1983 Hepatitis C Screening 12/26/1983 Hepatitis B Vaccine (1 of 3 - 19+ 3-dose series) 1984 HPV/Co-Test 12/26/1995 Cologuard 2010 Colonoscopy 2010 Colorectal Cancer Screening 2010 Fecal Occult Blood Test 2010 Sigmoidoscopy 2010 Zoster Vaccines (1 of 2) 12/26/2015 Cervical Cancer Screening 05/20/2019 Pap Smear 05/20/2019 05/20/2016 COVID-19 Vaccine (1 - 2023-2 5 season) 2024 Influenza Vaccine [...] filedocumented as of this encounter Care Teams Resource Coordinator Relationship Specialty Start Date End Date Randell Ingrid CECIL Pearson [address] [place] [address] PCP - General Physician Surfacer 01/14/24 documented as of this encounter
[2024-11-17 05:46] LABS: Basophils # (auto) 0.08 K/uL (0.00-0.20); Basophils % (auto) 0.9 %; Eosinophils # (auto) 0.08 K/uL (0.00-0.50); Eosinophils % (auto) 0.9 %; Hematocrit (blood only) 35.6 % (37.0-47.0); Hemoglobin 12.5 g/dl (12.0-16.0); Immature Granulocytes # (auto) 0.02 K/uL (0.01-0.20); Immature Granulocytes % (auto) 0.2 %; Lymphocytes # (auto) 2.79 K/uL (1.20-3.40); Lymphocytes % (auto) 30.2 %; Mean Corpuscular Hemoglobin 32.2 pg (25.0-34.0); Mean Corpuscular Hgb Conc 35.1 g/dL (32.0-36.0); Mean Corpuscular Volume 91.8 fL (80.0-100.0); Mean Platelet Volume 9.5 fL (9.4-12.4); Monocytes # (auto) 0.65 K/uL (0.11-0.59); Neutrophils # (auto) 5.63 K/uL (1.40-6.50); Neutrophils % (auto) 60.8 %; Platelet Count 236 K/uL (130-400); RDW Coefficient of Variation 12.7 % (11.5-14.5); RDW Standard Deviation 42.5 fL (36.4-46.3); Red Blood Count 3.88 M/uL (4.20-5.40); White Blood Count 9.25 K/ul (4.8-10.8)
[2024-11-17 06:01] LABS: BUN Creatinine Ratio 6.8 (10-20); Calcium 7.6 mg/dl (8.6-10.3); Chol HDL Ratio 3.2 (0-5); Creatinine Clr Calc Pharmacy 67.4 ml/min; Potassium 4.1 mmol/L (3.5-5.1)
[2024-11-17 06:08] LABS: Troponin I High Sensitivity 6.2 pg/ml (0-14)
[2024-11-17 06:37] LABS: Folate (Folic Acid),Ser orPlas > 22.30 ng/ml (>5.38)
[2024-11-17 06:54] LABS: Vitamin B12 334 pg/ml (180-914)
[2024-11-17 07:15] LABS: Estimated Average Glucose 171 mg/dl; Hemoglobin A1C 7.6 % (4.5-5.6)
[2024-11-17] MEDS: PANCREAZE (LIPASE 4,200U) CAP PO SCH (07:53)
[2024-11-17] MEDS: MAGNESIUM OXIDE 400 MG TAB PO SCH (07:57)
[2024-11-17] MEDS: MULTIVITAMIN TAB PO SCH (07:57)
[2024-11-17] MEDS: VITAMIN B COMPLEX TAB PO SCH (07:58)
[2024-11-17] MEDS: ASPIRIN 81 MG ECTAB PO SCH (07:58)
[2024-11-17] MEDS: FLUTICASONE PROPIONATE NA SPR 16 GM BTL SCH (07:58)
[2024-11-17] MEDS: DULoxetine HCL 30 MG CAP PO SCH (07:59)
[2024-11-17] MEDS: FOLIC ACID 1 MG TAB PO SCH (07:59)
[2024-11-17] MEDS: THIAMINE HCL 100 MG in SYRINGE 9 ML IV SCH (08:00)
[2024-11-17] MEDS: CYANOCOBALAMIN (B-12) 500 MCG TABLET PO SCH (08:00)
[2024-11-17] MEDS: CEROVITE ADV FORMULA TAB PO SCH (08:00)
[2024-11-17] MEDS: INSULIN ASPART PER UNIT CHARGE SC SCH (08:16)
[2024-11-17 11:30] VITALS: RESP 18
--- NOTE | 2024-11-17 12:41 | Electrocardiogram Report ---
Test Reason : Blood Pressure : */* mmHG Vent. Rate : 95 BPM Atrial Rate : 95 BPM P-R Int : 156 ms QRS Dur : 72 ms QT Int : 374 ms P-R-T Axes : 84 76 85 degrees QTcB Int : 469 ms Normal sinus rhythm Normal ECG When compared with ECG of 03-May-2024 23:55, No significant change was found Confirmed by Pete Dimas ([id number]) on 11/17/2024 12:41:04 PM Referred By: REFERRED SELF Confirmed By: Pete Dimas
--- NOTE | 2024-11-17 14:12 | Consultation ---
Date of Consultation November 17, 2024 Assessment & Plan (1) Carotid stenosis, right: Pt with severe R ICA stenosis, however, she appears to be asymptomatic. Her unresponsive event does not appear to be related to her R ICAS. After discussion with Dr Wright, would consider pt for elective surgical intervention (CEA vs TCAR) in the near future. No indications for urgent vascular intervention presently. Would be happy to reeval if recommended by neurology. Will see pt in office in a few weeks to discuss. Pt is agreeable. Please call if needed. History of Present Illness Reason for Consultation: R ICA stenosis Attending Physician: Janes Ansari MD History of Present Illness 58 yo f with multiple medical problems, including DMII, IPMN, liver cirrhosis, peripheral neuropathy, LLE BKA, alcohol abuse, medical marijuana use, admitted after an unresponsive episode at home, seen in consultation today for R ICA stenosis noted on CTA neck. Pt denies prior knowledge of this. Denies sx of amaurosis, unilateral extremity weakness numbness or tingling, difficulty speaking, facial droop. Pt is a poor historian, and unable to relate any of yesterday's events. Pt denies KEENE, fever, chest pain, palpitations, abd pain N/V, rest pain, claudication, other complaints. CTA neck demonstrates 80-90% stenosis of R ICA. Allergies Allergy/AdvReac Type Severity Reaction Status Date / Time haloperidol [From Haldol] AdvReac Unknown ON Verified 11/16/24 18:21 [facility] LIST lorazepam [From Ativan] AdvReac Unknown ON Verified 11/16/24 18:21 [facility] LIST Home Medications Medication Instructions Recorded Confirmed Type cyanocobalamin (vitamin B-12) 1,000 mcg PO DAILY 05/10/20 11/16/24 History 1,000 mcg tablet (Vitamin B-12) folic acid 1 mg tablet 1 mg PO QAM 05/21/22 11/16/24 History fluticasone propionate 50 1 spray intranasal QAM 03/11/23 11/16/24 History mcg/actuation nasal spray,suspension flash glucose sensor (FreeStyle 04/04/24 11/16/24 History Janny 2 Sensor kit) gabapentin 300 mg capsule See Rx Instructions .Route .COMPLEX 04/04/24 11/16/24 History insulin aspart U-100 100 unit/mL 0 sliding scale dose subcut AC 04/04/24 11/16/24 History (3 mL) subcutaneous pen (Novolog FlexPen U-100 Insulin aspart) melatonin 5 mg tablet 5 mg PO HS Sleep 04/04/24 11/16/24 History triamcinolone acetonide 0.1 % 1 applic topical DAILY PRN 04/04/24 11/16/24 History topical cream psoriasis B-complex with vitamin C 1 cap PO DAILY 05/04/24 11/16/24 History magnesium oxide 500 mg PO QAM 05/04/24 11/16/24 History lwcfdrwx-gpo-maxal acid 0.4 1 tab PO DAILY 08/04/24 11/16/24 History mg-lycopene 300 mcg-lutein 250 mcg tablet (Centrum Silver) duloxetine 30 mg capsule,delayed 30 mg PO QAM 11/16/24 11/16/24 History release insulin glargine 100 unit/mL (3 40 unit subcut QPM 11/16/24 11/16/24 History mL) subcutaneous pen (Lantus Solostar U-100 Insulin) aauemk-ryshpxst-vmnxcra 1 cap PO TID 11/16/24 11/16/24 History 6,000-19,000-30,000 unit capsule,delayed rel (Creon) Patient History Medical History Oral thrush Thrombocytopenia Tobacco dependence Depression with anxiety Unable to establish with psychiatrist Hydrosalpinx PT UNAWARE SBO (small bowel obstruction) Resolved Lipoma NECK Polycystic ovarian syndrome Surgical History History of left below knee amputation Amputation of left lower extremity TO APPROX MID CALF History of ankle surgery 02/2019 left ankle ex fix, grade 2 view with MAC 3 and 7.0 ETT History of tooth extraction Family History Uncle Diabetes Mother Breast cancer Sister Breast cancer Father Prostate cancer Other Family history of breast cancer in mother Family history of breast cancer in sister Denies family history of Ovarian cancer Myocardial infarction Colorectal cancer Social History Smoking Status: Current every day smoker Tobacco Type: Cigarettes packs per day: 0.75; Cigarettes Per Day: "a couple per day"; Second Hand Exposure: Yes; Do You Dip or Chew Tobacco: No; Tobacco Cessation Education Requested by Patient: No Hx Alcohol Use: Yes Alcohol type: wine Hx Substance Use: No Preferred Language: Tamazight Communication Ability: Effective Visual Impairment: No Limitations Roller Varnisher Required: No Beliefs That Will Affect Care: None marital status: marital status details: no children Current Living Situation: Parent Current Living Situation Comment: unknown current occupational status: disabled Other Information That Helps Us Care for You: No Feels Safe at Home: Yes Safety Concerns: Feels Safe At This Time Physical Activity Frequency: Does not Exercise Assistive Devices: Glasses and Wheelchair Review of Systems Review of Systems: All systems reviewed & are unremarkable except as noted in HPI & below Physical Exam Constitutional: WD/WN, vitals as above + ill appearing, cooperative and comfortable; not in distress Neck: trachea midline Respiratory: normal respiratory effort, lungs clear to auscultation Auscultation: + diminished lung sounds Cardiovascular: Rate/Rhythm: regular rate and regular rhythm Vessels: femoral pulses present, posterior tibial pulses present, dorsalis pedis pulses present and radial pulses present Extremities: normal capillary refill Gastrointestinal (Abdomen): Inspection/Auscultation: abdomen normal to inspection and normal bowel sounds Percussion/Palpation: abdomen soft; abdomen nontender Musculoskeletal: no cyanosis or clubbing, extremities motor strength 5/5 (LLE BKA) Extremities: + amputation noted Skin: no rashes, warm and dry Neurologic: moves all extremities and awake; no focal motor deficits and not confused Psychiatric: A+Ox3, euthymic affect Results & Data Vital Signs (Past 12 Hours) Vital Signs Temp Pulse Resp BP BP Pulse Ox O2 Del Method 11/17/24 11:29 36.7 C 89 18 139/74 95 Room Air 11/17/24 08:25 Room Air 11/17/24 07:17 37.0 C 83 16 141/81 H 94 Room Air 11/17/24 04:00 36.8 C 87 17 124/78 93 Room Air
--- NOTE | 2024-11-17 14:39 | Neurology Consultation ---
Date of Consultation November 17, 2024 Assessment & Plan (1) Carotid stenosis, right: The patient has multiple vessel narrowings CTA head and neck showed high-grade stenosis of the proximal R ICA, 50% stenosis of the left ICA, 70% stenosis of the origin of left vertebral artery, 80% stenosis of the origin of the right vertebral artery. This needs to be evaluated not emergently by neuroendovascular surgery, recommend urgent referral as an outpatient. Given no focal neurological deficits would not recommend an MRI would not change the management./Might expect watershed infarcts due to hypotension Recommend Aspirin 81 mg daily in addition to atorvastatin 80 mg daily. Alcohol dependence counseling. No emergent treatment is recommended (2) Unresponsive episode: Likely multifactorial due to extensive alcohol use elevated alcohol levels for use of hfsr-xwg-vugnqat sleeping pills and a UTI. Plan The patient is back to baseline, continue supportive care. Telehealth Consultation Telehealth Information Telehealth Information: I performed this visit using a real-time telehealth connection between my location and the patients location ([facility]). After connecting through interactive tele-video, patient was identified by name and date of and/or wristband check.Patient (or authorized healthcare repr esentative) was informed that this was a telemedicine visit and it was being conducted confidentially over secure lines. My office door was closed and no one else was present in the room with me.Patient (or authorized healthcare labor union business representative) provided consent to proceed with the visit, expressed an understanding of privacy and security of the telemedicine visit, and gave permission to have a hospital labor union business representative in the room in order to assist with the visit and to conduct portions of the visit, as needed. I informed the patient (or authorized healthcare labor union business representative) that I reviewed their record and presented the opportunity for them to ask any questions regarding the visit today. The patient agreed to participate. History of Present Illness Reason for Consultation: multifocal vascular narrowing with an episode of LOC Requesting Physician: Janes Ansari MD Attending Physician: Janes Ansari MD History of Present Illness Gem Chiu is a 58-Y.O female patient with PMH of type II DM, left BKA, chronic alcoholism, medical marijuana use, uses a prosthesis and a wheelchair for ambulation, who was brought in for an unresponsive episode., Reportedly the patient was found by her mother sitting with her head on her chest and seemed unresponsive, the mother could not wake her up thus EMS was called was initially hypothermic and was found to have a UTI and an alcohol level of 299 with a positive marijuana screen , CT head showed no acute changes but CTA head and neck showed high-grade stenosis of the proximal R ICA, 50% stenosis of the left ICA, 70% stenosis of the origin of left vertebral artery, 80% stenosis of the origin of the right vertebral artery. The patient also reported that she might have taken multiple sleeping pills (dlnx-gsx-ukmbioe pills). She tells me that she has no focal neurological deficits, she has no visual changes, no numbness or weakness anywhere in her body. Allergies Allergy/AdvReac Type Severity Reaction Status Date / Time haloperidol [From Haldol] AdvReac Unknown ON Verified 11/16/24 18:21 [facility] lorazepam [From Ativan] AdvReac Unknown ON Verified 11/16/24 18:21 [facility] Home Medications Medication Instructions Recorded Confirmed Type cyanocobalamin (vitamin B-12) 1,000 mcg PO DAILY 05/10/20 11/16/24 History 1,000 mcg tablet (Vitamin B-12) folic acid 1 mg tablet 1 mg PO QAM 05/21/22 11/16/24 History fluticasone propionate 50 1 spray intranasal QAM 03/11/23 11/16/24 History mcg/actuation nasal spray,suspension flash glucose sensor (FreeStyle 04/04/24 11/16/24 History Janny 2 Sensor kit) gabapentin 300 mg capsule See Rx Instructions .Route .COMPLEX 04/04/24 11/16/24 History insulin aspart U-100 100 unit/mL 0 sliding scale dose subcut AC 04/04/24 11/16/24 History (3 mL) subcutaneous pen (Novolog FlexPen U-100 Insulin aspart) melatonin 5 mg tablet 5 mg PO HS Sleep 04/04/24 11/16/24 History triamcinolone acetonide 0.1 % 1 applic topical DAILY PRN 04/04/24 11/16/24 History topical cream psoriasis B-complex with vitamin C 1 cap PO DAILY 05/04/24 11/16/24 History magnesium oxide 500 mg PO QAM 05/04/24 11/16/24 History ymskmzad-zec-gbobe acid 0.4 1 tab PO DAILY 08/04/24 11/16/24 History mg-lycopene 300 mcg-lutein 250 mcg tablet (Centrum Silver) duloxetine 30 mg capsule,delayed 30 mg PO QAM 11/16/24 11/16/24 History release insulin glargine 100 unit/mL (3 40 unit subcut QPM 11/16/24 11/16/24 History mL) subcutaneous pen (Lantus Solostar U-100 Insulin) smuydj-djxpfabv-twrjqvs 1 cap PO TID 11/16/24 11/16/24 History 6,000-19,000-30,000 unit capsule,delayed rel (Creon) Patient History Medical History Oral thrush Thrombocytopenia Tobacco dependence Depression with anxiety Unable to establish with psychiatrist Hydrosalpinx PT UNAWARE SBO (small bowel obstruction) Resolved Lipoma NECK Polycystic ovarian syndrome Surgical History History of left below knee amputation Amputation of left lower extremity TO APPROX MID CALF History of ankle surgery 02/2019 left ankle ex fix, grade 2 view with MAC 3 and 7.0 ETT History of tooth extraction Family History Uncle Diabetes Mother Breast cancer Sister Breast cancer Father Prostate cancer Other Family history of breast cancer in mother Family history of breast cancer in sister Denies family history of Ovarian cancer Myocardial infarction Colorectal cancer Social History Smoking Status: Current every day smoker Tobacco Type: Cigarettes packs per day: 0.75; Cigarettes Per Day: "a couple per day"; Second Hand Exposure: Yes; Do You Dip or Chew Tobacco: No; Tobacco Cessation Education Requested by Patient: No Hx Alcohol Use: Yes Alcohol type: wine Hx Substance Use: No Preferred Language: [place] Communication Ability: Effective Visual Impairment: No Limitations [id number] Java Developer Required: No Beliefs That Will Affect Care: None marital status: marital status details: no children Current Living Situation: Parent Current Living Situation Comment: unknown current occupational status: disabled Other Information That Helps Us Care for You: No Feels Safe at Home: Yes Safety Concerns: Feels Safe At This Time Physical Activity Frequency: Does not Exercise Assistive Devices: Prosthesis and Wheelchair Review of Systems Constitutional: Patient denies weight loss, fever, chills, and night sweats Eyes: Patient denies change in vision, tearing, pain, and redness ENT: Patient denies pain, bleeding, rhinorrhea, and dysphagia Cardiovascular: Patient denies chest pain, palpitation, dyspnea at rest, and dyspnea with exertion Respiratory: Patient denies shortness of breath, cough, wheezing, and productive cough GI: Patient denies reflux, pain, constipation, and diarrhea Skin: Patient denies rash, dryness, and itching Allergies/Immune System: Patient denies rhinorrhea, seasonal allergies, reaction to current MEDS, and joint swelling Endocrine: Patient denies weight loss, weight gain, temperature intolerance, and excessive thirst Neurological: All negative unless mentioned in the HPI Physical Exam General Constitutional: Appearance normally developed Head and face: normocephalic and atraumatic Eyes: no ptosis, no anisocoria, and no dysconjugate gaze Respiratory: normal effort Cardiovascular: regular rhythm and regular rate Abdomen: non distended Skin: no rashes, lesions, or ulcers noted Psychiatric: normal judgement and insight, normal mood, and normal affect NEUROLOGIC EXAMINATION: Mental Status:alert, oriented to time, place, person, normal recent memory, normal remote memory, normal attention span, normal concentration, normal language and normal fund of knowledge Cranial Nerves: CN 2 - no visual defect on confrontation and pupils round, equal, reactive to light CN 3, 4, 6 - extra-ocular movements intact and no nystagmus CN 5 - facial sensation intact CN 7 - no facial asymmetry CN 8 - intact hearing CN 9, 10 - palate symmetric, normal gag CN 11 - good shoulder shrug CN 12 - tongue midline MOTOR: Strength was at least antigravity throughout, Pronator drift was absent and There were no abnormal movements/ has Left BKA SENSATION: intact and symmetric to pinprick, light touch, vibration and joint position GAIT: deferred COORDINATION: no ataxia with finger to nose testing and heel to jang testing REFLEXES: cannot assess over telemedicine Results & Data Vital Signs (Past 12 Hours) Vital Signs Temp Pulse Resp BP BP Pulse Ox O2 Del Method 11/17/24 11:29 36.7 C 89 18 139/74 95 Room Air 11/17/24 08:25 Room Air 11/17/24 07:17 37.0 C 83 16 141/81 H 94 Room Air 11/17/24 04:00 36.8 C 87 17 124/78 93 Room Air Laboratory Results Laboratory Results - last 24 hr 11/16/24 11/16/24 11/16/24 17:00 17:09 17:32 WBC 10.22 RBC 5.09 Hgb 16.3 H POC Hgb 17.0 H Hct 46.7 POC Hct 50 H MCV 91.7 MCH 32.0 MCHC 34.9 RDW Std Deviation 41.8 RDW Coeff of Ethel 12.4 Plt Count 372 MPV 9.5 Immature Gran % (Auto) 0.2 Neut % (Auto) 67.2 Lymph % (Auto) 25.5 [place] % (Auto) 5.4 Eos % (Auto) 0.4 Baso % (Auto) 1.3 Neut # (Auto) 6.87 H Lymph # (Auto) 2.61 [place] # (Auto) 0.55 Eos # (Auto) 0.04 Baso # (Auto) 0.13 Immature Gran # (Auto) 0.02 VBG pH VBG pCO2 VBG pO2 VBG HCO3 VBG O2 Saturation VBG Base Excess POC Sodium 136 Sodium 137 POC Potassium 5.2 H Potassium 5.1 POC Chloride 96 L Chloride 93 L Carbon Dioxide 26 POC Total CO2 26 Anion Gap 18 H POC Anion Gap 19.0 POC BUN 6 L BUN 7 Creatinine 0.61 POC Creatinine 0.9 Est Cr Clr Drug Dosing 90.5 eGFR 103.56 BUN/Creatinine Ratio 11.5 Glucose 197 H POC Glucose 191 H POC Glucose (other) 200 H Estimat Average Glucose Hemoglobin A1c Lactate 7.7 H* Calcium 9.5 POC Ioniz Calcium Bri 0.96 L Magnesium 2.3 Total Bilirubin 0.5 Direct Bilirubin 0.1 AST 31 ALT 20 Alkaline Phosphatase 120 H Ammonia Total Creatine Kinase 49 Troponin I High Sens 4.0 Total Protein 7.6 Albumin 4.4 Triglycerides Cholesterol LDL Cholesterol, Calc VLDL Cholesterol, Calc HDL Cholesterol Cholesterol/HDL Ratio Lipase 18 Vitamin B12 Folate Procalcitonin < 0.02 Urine Color Yellow Urine Appearance Cloudy A Urine pH 5.5 Ur Specific [place] 1.018 Urine Protein 1+ H Urine Glucose (UA) Negative Urine Ketones 1+ H Urine Blood Trace H Urine Nitrite Negative Urine Bilirubin Negative Urine Urobilinogen Negative Ur Leukocyte Esterase 1+ H Urine WBC (Auto) 21-50 H Urine RBC (Auto) 3-5 H U Hyaline Cast (Auto) 6-10 H U Epithel Cells (Auto) 11-20 H Urine Bacteria (Auto) 2+ H Urine Opiates Screen Neg Ur Methadone, Qual Neg Urine Fentanyl Screen Neg Urine Barbiturates Neg Ur Phencyclidine (PCP) Neg U Amphetamin/Meth Scrn Neg MDMA (Ecstasy) Screen Neg U Benzodiazepines Scrn Neg Ur Cocaine Metabolite Neg U Marijuana (THC) Screen Pos H U Marijuana THC Carboxy Pending Drug Screen Comment Pending Ethyl Alcohol mg/dL 229.8 H 11/16/24 11/16/24 11/16/24 17:53 19:15 21:38 WBC RBC Hgb POC Hgb Hct POC Hct MCV MCH MCHC RDW Std Deviation RDW Coeff of Ethel Plt Count MPV Immature Gran % (Auto) Neut % (Auto) Lymph % (Auto) [place] % (Auto) Eos % (Auto) Baso % (Auto) Neut # (Auto) Lymph # (Auto) [place] # (Auto) Eos # (Auto) Baso # (Auto) Immature Gran # (Auto) VBG pH 7.36 VBG pCO2 42 VBG pO2 61 VBG HCO3 24 VBG O2 Saturation 89.2 VBG Base Excess -1.8 POC Sodium Sodium POC Potassium Potassium POC Chloride Chloride Carbon Dioxide POC Total CO2 Anion Gap POC Anion Gap POC BUN BUN Creatinine POC Creatinine Est Cr Clr Drug Dosing eGFR BUN/Creatinine Ratio Glucose POC Glucose POC Glucose (other) Estimat Average Glucose Hemoglobin A1c Lactate 6.6 H* 5.3 H* Calcium POC Ioniz Calcium Bri Magnesium Total Bilirubin Direct Bilirubin AST ALT Alkaline Phosphatase Ammonia 15.0 L Total Creatine Kinase Troponin I High Sens Total Protein Albumin Triglycerides Cholesterol LDL Cholesterol, Calc VLDL Cholesterol, Calc HDL Cholesterol Cholesterol/HDL Ratio Lipase Vitamin B12 Folate Procalcitonin Urine Color Urine Appearance Urine pH Ur Specific [place] Urine Protein Urine Glucose (UA) Urine Ketones Urine Blood Urine Nitrite Urine Bilirubin Urine Urobilinogen Ur Leukocyte Esterase Urine WBC (Auto) Urine RBC (Auto) U Hyaline Cast (Auto) U Epithel Cells (Auto) Urine Bacteria (Auto) Urine Opiates Screen Ur Methadone, Qual Urine Fentanyl Screen Urine Barbiturates Ur Phencyclidine (PCP) U Amphetamin/Meth Scrn MDMA (Ecstasy) Screen U Benzodiazepines Scrn Ur Cocaine Metabolite U Marijuana (THC) Screen U Marijuana THC Carboxy Drug Screen Comment Ethyl Alcohol mg/dL 11/16/24 11/16/24 11/17/24 21:41 23:40 05:22 WBC 9.25 RBC 3.88 L Hgb 12.5 D POC Hgb Hct 35.6 L POC Hct MCV 91.8 MCH 32.2 MCHC 35.1 RDW Std Deviation 42.5 RDW Coeff of Ethel 12.7 Plt Count 236 MPV 9.5 Immature Gran % (Auto) 0.2 Neut % (Auto) 60.8 Lymph % (Auto) 30.2 [place] % (Auto) 7.0 Eos % (Auto) 0.9 Baso % (Auto) 0.9 Neut # (Auto) 5.63 Lymph # (Auto) 2.79 [place] # (Auto) 0.65 H Eos # (Auto) 0.08 Baso # (Auto) 0.08 Immature Gran # (Auto) 0.02 VBG pH VBG pCO2 VBG pO2 VBG HCO3 VBG O2 Saturation VBG Base Excess POC Sodium Sodium 140 POC Potassium Potassium 4.1 POC Chloride Chloride 105 Carbon Dioxide 29 POC Total CO2 Anion Gap 6 POC Anion Gap POC BUN BUN 5 L Creatinine 0.74 POC Creatinine Est Cr Clr Drug Dosing 67.4 eGFR 93.72 BUN/Creatinine Ratio 6.8 L Glucose 137 H POC Glucose POC Glucose (other) Estimat Average Glucose 171 Hemoglobin A1c 7.6 H Lactate 5.6 H* 1.4 Calcium 7.6 L POC Ioniz Calcium Bri Magnesium Total Bilirubin Direct Bilirubin AST ALT Alkaline Phosphatase Ammonia Total Creatine Kinase Troponin I High Sens 6.2 Total Protein Albumin Triglycerides 112 Cholesterol 175 LDL Cholesterol, Calc 99 VLDL Cholesterol, Calc 22 HDL Cholesterol 54 Cholesterol/HDL Ratio 3.2 Lipase Vitamin B12 334 Folate > 22.30 Procalcitonin < 0.02 Urine Color Urine Appearance Urine pH Ur Specific [place] Urine Protein Urine Glucose (UA) Urine Ketones Urine Blood Urine Nitrite Urine Bilirubin Urine Urobilinogen Ur Leukocyte Esterase Urine WBC (Auto) Urine RBC (Auto) U Hyaline Cast (Auto) U Epithel Cells (Auto) Urine Bacteria (Auto) Urine Opiates Screen Ur Methadone, Qual Urine Fentanyl Screen Urine Barbiturates Ur Phencyclidine (PCP) U Amphetamin/Meth Scrn MDMA (Ecstasy) Screen U Benzodiazepines Scrn Ur Cocaine Metabolite U Marijuana (THC) Screen U Marijuana THC Carboxy Drug Screen Comment Ethyl Alcohol mg/dL 02/09/2911/17/24 11/17/24 07:16 11:20 11:30 WBC RBC Hgb POC Hgb Hct POC Hct MCV MCH MCHC RDW Std Deviation RDW Coeff of Ethel Plt Count MPV Immature Gran % (Auto) Neut % (Auto) Lymph % (Auto) [place] % (Auto) Eos % (Auto) Baso % (Auto) Neut # (Auto) Lymph # (Auto) [place] # (Auto) Eos # (Auto) Baso # (Auto) Immature Gran # (Auto) VBG pH VBG pCO2 VBG pO2 VBG HCO3 VBG O2 Saturation VBG Base Excess POC Sodium Sodium POC Potassium Potassium POC Chloride Chloride Carbon Dioxide POC Total CO2 Anion Gap POC Anion Gap POC BUN BUN Creatinine POC Creatinine Est Cr Clr Drug Dosing eGFR BUN/Creatinine Ratio Glucose POC Glucose 133 H 184 H POC Glucose (other) Estimat Average Glucose Hemoglobin A1c Lactate Calcium POC Ioniz Calcium Bri Magnesium Total Bilirubin Direct Bilirubin AST ALT Alkaline Phosphatase Ammonia Total Creatine Kinase Troponin I High Sens 5.0 Total Protein Albumin Triglycerides Cholesterol LDL Cholesterol, Calc VLDL Cholesterol, Calc HDL Cholesterol Cholesterol/HDL Ratio Lipase Vitamin B12 Folate Procalcitonin Urine Color Urine Appearance Urine pH Ur Specific [place] Urine Protein Urine Glucose (UA) Urine Ketones Urine Blood Urine Nitrite Urine Bilirubin Urine Urobilinogen Ur Leukocyte Esterase Urine WBC (Auto) Urine RBC (Auto) U Hyaline Cast (Auto) U Epithel Cells (Auto) Urine Bacteria (Auto) Urine Opiates Screen Ur Methadone, Qual Urine Fentanyl Screen Urine Barbiturates Ur Phencyclidine (PCP) U Amphetamin/Meth Scrn MDMA (Ecstasy) Screen U Benzodiazepines Scrn Ur Cocaine Metabolite U Marijuana (THC) Screen U Marijuana THC Carboxy Drug Screen Comment Ethyl Alcohol mg/dL Diagnostic Findings Chest X-Ray 11/16/24 17:09 Exam: One view portable chest HISTORY: Unresponsive Previous studies: 05/03/2024 FINDINGS: Cardiac size remains normal. Lungs show some hyperexpansion but no acute infiltrate, collapse or edema. Old healed left rib fractures are stable. IMPRESSION: Stable appearance without acute disease seen at this time. Electronically signed by Franky Marin 11-16-2024 7:[address] 11/16/24 17:09 REASON FOR STUDY: Unresponsive. Patient fell with left facial trauma HISTORY: EtOH EXAM: CTA head/brain without contrast Previous study: None available Findings: No acute intracranial mass, hemorrhage or edema is seen. There is some diffuse atrophy. No midline shift or ventriculomegaly is seen. No extra-axial blood or fluid collection. Small arachnoid cyst seen in the right posterior middle cranial fossa measuring approximately 3.0 cm. The mastoids and visualized paranasal sinuses are clear. No acute process of the bony calvarium is noted. IMPRESSION: 1. Negative for acute intracranial process. 2. Small arachnoid cyst right middle cranial fossa. Electronically signed by Franky Marin 11-16-2024 6:33 PM Head CTA 11/16/24 17:24 REASON FOR EXAM: Patient unresponsive CTA HEAD INCLUDING REFORMATED IMAGES: TECHNIQUE: Standard departmental protocols were used. Axial, coronal, sagittal and 3D images were reviewed. COMPARISON: None FINDINGS: Intact flow is seen in the distal internal carotid arteries bilaterally. Plaquing with the maximum 50% stenosis seen in the distal internal carotid arteries at the level of the carotid siphon bilaterally. Intact flow is seen in the arteries about the [place] without major stenosis or occlusion at this level. No aneurysm or hemorrhage is seen. Intact vertebrobasilar flow is seen in the. No major stenosis in the posterior circulation seen at this time. IMPRESSION: 1. Calcified plaque within maximum 50% stenosis of the distal internal carotid arteries. 2. Otherwise no significant intracranial stenosis or aneurysm seen at this time. Electronically signed by Franky Marin 11-16-2024 6:46 PM Neck CTA 11/16/24 17:24 EXAM: CT angiogram of the neck with contrast PROVIDED HISTORY: Patient unresponsive status post fall with left facial trauma COMPARISON: None TECHNIQUE: Helical CT angiography of the neck was performed following uneventful administration of Omnipaque 350. Images are presented in axial, sagittal, and coronal reformats. Multiplanar MIP reconstructions are also provided. FINDINGS: ANGIOGRAM: Typical 3 vessel origin is seen at the aortic arch with some plaquing but no major stenosis at this level. There is an approximately 70% stenosis at the origin of the left vertebral artery from the left subclavian and 80% stenosis at the origin of the right vertebral artery from the right brachiocephalic/subclavian artery. The right carotid bifurcation shows an extremely dense calcified aponeurotic deposit at the origin of the right internal carotid artery making determination of stenosis difficult however there is a high-grade stenosis in the proximal right internal carotid artery of approximately 90%. The left carotid artery shows a dense calcific deposit at the origin of the left internal carotid artery produces a maximum of approximately 50% stenosis at this time. Intact vertebral artery flow is seen in bilaterally to form the basilar artery. Impression: 1. High-grade 90% stenosis in the proximal right internal carotid artery. Dense calcified plaque present at this level. 2. 50% stenosis at the origin of the left internal carotid artery with a dense calcified plaque present. 3. 70% stenosis at the origin of the left vertebral artery. 4. 80% stenosis at the origin of the right vertebral artery. Electronically signed by Franky Marin 11-16-2024 6:42 PM Medications Administered Home Medications Medication Instructions Recorded Confirmed Last Taken cyanocobalamin (vitamin B-12) 1,000 mcg PO DAILY 05/10/20 11/16/24 03/10/23 1,000 mcg tablet (Vitamin B-12) folic acid 1 mg tablet 1 mg PO QAM 05/21/22 11/16/24 03/10/23 fluticasone propionate 50 1 spray intranasal QAM 03/11/23 11/16/24 03/10/23 mcg/actuation nasal spray,suspension flash glucose sensor (FreeStyle 04/04/24 11/16/24 Unknown Janny 2 Sensor kit) gabapentin 300 mg capsule See Rx Instructions .Route .COMPLEX 04/04/24 11/16/24 Unknown insulin aspart U-100 100 unit/mL 0 sliding scale dose subcut AC 04/04/24 11/16/24 Unknown (3 mL) subcutaneous pen (Novolog FlexPen U-100 Insulin aspart) melatonin 5 mg tablet 5 mg PO HS Sleep 04/04/24 11/16/24 Unknown triamcinolone acetonide 0.1 % 1 applic topical DAILY PRN 04/04/24 11/16/24 Unknown topical cream psoriasis B-complex with vitamin C 1 cap PO DAILY 05/04/24 11/16/24 Unknown magnesium oxide 500 mg PO QAM 05/04/24 11/16/24 Unknown socjstla-jbx-gzqwq acid 0.4 1 tab PO DAILY 08/04/24 11/16/24 Unknown mg-lycopene 300 mcg-lutein 250 mcg tablet (Centrum Silver) duloxetine 30 mg capsule,delayed 30 mg PO QAM 11/16/24 11/16/24 Unknown release insulin glargine 100 unit/mL (3 40 unit subcut QPM 11/16/24 11/16/24 Unknown mL) subcutaneous pen (Lantus Solostar U-100 Insulin) wnknzf-hwngnldi-yssjpfg 1 cap PO TID 11/16/24 11/16/24 Unknown 6,000-19,000-30,000 unit capsule,delayed rel (Creon) Active Medications Generic Name Dose Route Start Last Admin Trade Name Freq PRN Reason Stop Dose Admin Lipase/Protease/Amylase 1 cap 11/17/24 08:00 11/17/24 12:37 Pancreaze (Lipase 4,200u) Cap PO 12/17/24 07:59 1 cap TIDM [facility] Administration Aspirin 81 mg 11/17/24 09:00 11/17/24 07:58 Aspirin 81 Mg Ectab PO 12/17/24 08:59 81 mg DAILY ARPIT Administration Cyanocobalamin 1,000 mcg 11/17/24 09:00 11/17/24 08:00 Cyanocobalamin (B-12) 500 Mcg Tablet PO 12/17/24 08:59 1,000 mcg DAILY ARPIT Administration Duloxetine HCl 30 mg 11/17/24 09:00 11/17/24 07:59 Duloxetine Hcl 30 Mg Cap PO 12/17/24 08:59 30 mg QAM [facility]PIT Administration Fluticasone Propionate 1 sprays 11/17/24 09:00 11/17/24 07:58 Fluticasone Propionate Na Spr 16 Gm Btl NA 12/17/24 08:59 1 sprays QAM [facility] Administration Folic Acid 1 mg 11/17/24 09:00 11/17/24 07:59 Folic Acid 1 Mg Tab PO 12/17/24 08:59 1 mg QAM [facility]PIT Administration Sodium Chloride 1,000 mls @ 125 mls/hr 11/16/24 21:45 11/17/24 13:03 Nss IV 11/17/24 21:44 125 mls/hr .Q8H [facility] Administration Piperacillin Sod/Tazobactam Sod 4.5 gm in 100 mls @ 25 mls/hr 11/17/24 00:00 11/17/24 12:13 Zosyn IV 11/22/24 00:00 Infused Q8H [facility] Infusion Protocol Thiamine HCl 100 mg/ Syringe 10 mls @ 2 mls/min 11/17/24 09:00 11/17/24 08:00 IV 12/17/24 08:59 2 mls/min QAM [facility] Administration Insulin Aspart 0 units 11/17/24 07:30 11/17/24 13:08 Insulin Aspart Per Unit Charge SC 12/17/24 07:29 5 units ACHS [facility] Administration Lorazepam 2 mg 11/16/24 23:04 11/17/24 00:02 Lorazepam 2 Mg/1 Ml Vial IV 12/16/24 23:03 2 mg UD PRN Administration EtOH Withdrawal AWSS Score 8,9 Protocol Magnesium Oxide 400 mg 11/17/24 09:00 11/17/24 07:57 Magnesium Oxide 400 Mg Tab PO 12/17/24 08:59 400 mg QAM [facility] Administration Multivitamins 1 tab 11/17/24 09:00 11/17/24 07:57 Multivitamin Tab PO 12/17/24 08:59 1 tab QAM ARPIT Administration Multivitamins/Minerals 1 tab 11/17/24 09:00 11/17/24 08:00 Cerovite Adv Formula Tab PO 12/17/24 08:59 1 tab DAILY ARPIT Administration Vitamin B Complex 1 tab 11/17/24 09:00 11/17/24 07:58 Vitamin B Complex Tab PO 12/17/24 08:59 1 tab DAILY ARPIT Administration
[2024-11-17 15:11] VITALS: BP 157/83; PULSE 92; TEMP 98.4; O2SAT 97
[2024-11-17] MEDS ORDERED: STROKE PATIENT DISCHARGE STA (15:55)
--- NOTE | 2024-11-17 16:02 | Discharge Summary ---
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 Mother states last time she talked with her was on . Today when she went to check on the patient, she seemed okay but about 40 minutes to 1 hour later mother went back to check on her around 4 PM when patient was found with her head on the chest and seemed unresponsive. Mother tried to wake her up but could not wake her up and she called EMS and was brought in here. In the ER she was initially hypothermic and found to have UTI and alcohol level 229 and marijuana screen positive. CT head negative for acute process. CTA head and neck shows high-grade stenosis in the proximal right internal carotid artery,stenosis at the origin of left and right vertebral arteries. For the ER mother told that she was confused when she saw her first today and last time patient at baseline was on last Friday as per ER. For the ER she was moving extremities to painful stimuli and stable vitals. Currently patient is more alert and awake. Can tell her name. [facility] Can tell her date of . Does not know current dates. Able to move all extremities on command. No facial droop seen. Obeys simple commands. But answers yes to all the questions. Could not get much history from patient. Patient denies drinking alcohol or smoking marijuana. Agrees to tobacco use. As per mother patient current not drinking alcohol regularly.She was doing okay until this episode happened as per mother. Discussed at length with patient. Patient smoked marijuana, took several sleeping pills, pain medication, and drank a significant amount of alcohol last night. Of note, patient states she is going to continue to drink at home and does not want alcohol cessation treatment or withdrawal. #Unresponsive episode -CT head no acute findings -VBG okay -Alcohol level 229 -see above, likely 2/2 overdose #Carotid Stenosis -neurology consulted, feel 2/2 overdose, no need for MRI -CTA head and neck shows significant stenosis, vascular surgery consulted, recommended outpatient follow up -start aspirin/statin #Acute UTI -urine culture negative -no further abx #Alcoholism -patient not interested in cessation at this time #Type 2 diabetes -Continue home Lantus -Sliding scale Notes For Next Care Provider 58-year-old female with past medical history significant for type 2 diabetes, history of medical marijuana use, history of amputation of left leg through tibia and fibula, lives alone at home, mostly wheelchair-bound and with prosthesis she can ambulate as per mother was brought in by mother because of unresponsive episode. In the ED, noted to have positive alcohol level and talk screen positive for marijuana. Patient admitted is admitted to medicine for further workup. Neurology consulted, feels patient overdosed on accommodation of sleeping pills and alcohol, no further treatment other than aspirin and statin for internal carotid stenosis. Vascular surgery was consulted in setting of stenosis, recommended outpatient follow-up. Discussed at length with patient, patient is going to continue to drink alcohol when she goes home per patient and is not interested in alcohol cessation or further alcohol withdrawal treatment. She understands the risks of continuing to drink, up to and including . Counseled on need to stop drinking and not take sleeping pills with alcohol. PT OT consulted, no further rehab needs at this time. Patient is medically stable for discharge home given patient is going to continue to drink, and has no further acute needs. Medication Changes From Visit -aspirin/statin Admission HPI Per Admitting Provider 58-year-old female with past medical history significant for type 2 diabetes, history of medical marijuana use, history of amputation of left leg through tibia and fibula, lives alone at home, mostly wheelchair-bound and with prosthesis she can ambulate as per mother was brought in by mother because of unresponsive episode. Mother states last time she talked with her was on . Today when she went to check on the patient, she seemed okay but about 40 minutes to 1 hour later mother went back to check on her around 4 PM when patient was found with her head on the chest and seemed unresponsive. Mother tried to wake her up but could not wake her up and she called EMS and was brought in here. In the ER she was initially hypothermic and found to have UTI and alcohol level 229 and marijuana screen positive. CT head negative for acute process. CTA head and neck shows high-grade stenosis in the proximal right internal carotid artery,stenosis at the origin of left and right vertebral arteries. For the ER mother told that she was confused when she saw her first today and last time patient at baseline was on last Friday as per ER. For the ER she was moving extremities to painful stimuli and stable vitals. Currently patient is more alert and awake. Can tell her name. Thinks she is in [facility]. Can tell her date of . Does not know current dates. Able to move all extremities on command. No facial droop seen. Obeys simple commands. But answers yes to all the questions. Could not get much history from patient. Patient denies drinking alcohol or smoking marijuana. Agrees to tobacco use. As per mother patient current not drinking alcohol regularly.She was doing okay until this episode happened as per mother. Past medical history. As mentioned above Past surgical history. EGD. Surgical removal of erupted tooth and bone. Social history. Lives alone. Still smoking 0.5 pack a day. Alcohol use intermittent as per epic. No drug use. Family history. Mother had breast cancer. Hypertension. Sister had breast cancer. Discharge Exam Gen: A&O 3 NAD HEENT: NCAT, EOMI, not icteric. External ears normal. No rhinorrhea. Moist mucous membranes. Neck: Supple, full range of motion, no observable masses, No meningeal sign. Lungs: No Respiratory distress. CV: RRR, no edema. Abdomen: Soft, nondistended, No rebound tenderness. MSK: No joint swelling, no redness. Noted amputation Skin: No rashes, petechiae, lesions. Normal color per patient. Neuro: Normal Gait, Grossly intact. Psych: Appropriate for situation. Updated Medication List Medication Instructions Recorded Confirmed Type cyanocobalamin (vitamin B-12) 1,000 mcg PO DAILY 05/10/20 11/16/24 History 1,000 mcg tablet (Vitamin B-12) folic acid 1 mg tablet 1 mg PO QAM 05/21/22 11/16/24 History fluticasone propionate 50 1 spray intranasal QAM 03/11/23 11/16/24 History mcg/actuation nasal spray,suspension flash glucose sensor (FreeStyle 04/04/24 11/16/24 History Janny 2 Sensor kit) gabapentin 300 mg capsule See Rx Instructions .Route .COMPLEX 04/04/24 11/16/24 History insulin aspart U-100 100 unit/mL 0 sliding scale dose subcut AC 04/04/24 11/16/24 History (3 mL) subcutaneous pen (Novolog FlexPen U-100 Insulin aspart) melatonin 5 mg tablet 5 mg PO HS Sleep 04/04/24 11/16/24 History triamcinolone acetonide 0.1 % 1 applic topical DAILY PRN 04/04/24 11/16/24 History topical cream psoriasis B-complex with vitamin C 1 cap PO DAILY 05/04/24 11/16/24 History magnesium oxide 500 mg PO QAM 05/04/24 11/16/24 History zlwhellb-xbd-cbfbe acid 0.4 1 tab PO DAILY 08/04/24 11/16/24 History mg-lycopene 300 mcg-lutein 250 mcg tablet (Centrum Silver) duloxetine 30 mg capsule,delayed 30 mg PO QAM 11/16/24 11/16/24 History release insulin glargine 100 unit/mL (3 40 unit subcut QPM 11/16/24 11/16/24 History mL) subcutaneous pen (Lantus Solostar U-100 Insulin) ryjqhp-qhdsbirn-arktagp 1 cap PO TID 11/16/24 11/16/24 History 6,000-19,000-30,000 unit capsule,delayed rel (Creon) aspirin 81 mg tablet,delayed 81 mg PO DAILY #30 tabs 11/17/24 Rx release atorvastatin 80 mg tablet 80 mg PO DAILY #30 tabs 11/17/24 Rx Hospital Stay Data Consultations 11/16/24 20:33 ED Decision to Admit Stat 11/17/24 08:00 Consult Neurology Routine 11/17/24 08:07 Consult Vascular Surgery Routine Diagnostic Imagining Performed 11/16/24 17:09 CT head/brain wo con Stat 11/16/24 17:24 CTA head w con [CT angio head w con] Stat CTA neck with con [CT angio neck with con] Stat Pending Results Patient Have Any Pending Studies at Discharge: Yes Discharge Instructions Given to Patient (Per Discharging Provider) 1. Please follow up with vascular surgery and PCP outpatient. 2. Please quit drinking alcohol, patient counseled on need to quit and not taking sleeping aids at same time. Total Time Total Time Spent Total Time Spent (In Minutes): I spent a total of 35 minutes in direct patient care, including aecr-vc-[id number] time with the patient and/or family, reviewing medical records, ordering and reviewing diagnostic tests, and coordinating care with other healthcare providers. This time includes: history taking, physical examination, medical decision making, counseling, ECG interpretation, imaging interpretation, lab interpretation, orders, and education, excluding time spent in the performance of separately billed services.
[2024-11-17] MEDS: LORazepam 2 MG/1 ML VIAL IV STA (16:31)
[2024-11-17] MEDS ORDERED: LANTUS PER UNIT CHARGE SQ SCH (21:00)
[2024-11-17] MEDS ORDERED: GABAPENTIN 600 MG TAB PO SCH (22:00)
[2024-11-19] MEDS ORDERED: GABAPENTIN 600 MG TAB PO SCH
[2024-11-19 01:27] LABS: Marijuana Quant, GCMS Urine 57 ng/mL (<5)
[2024-11-20] MEDS ORDERED: GABAPENTIN 600 MG TAB PO SCH (12:00)
== END 2024-11-17 17:15 | disposition home or self-care (01) | DRG 918 ==
LOC: ED 16:53 → 2S 21:20

== ENCOUNTER 2025-04-22 12:38 | Inpatient (IN) ==
[2025-04-22] MEDS: DEXTROSE 50% 50 ML SYRINGE IV STA ×2 (13:03→16:09)
[2025-04-22] MEDS: DEXTROSE 50% 50 ML SYRINGE IV ONE (13:04)
[2025-04-22] MEDS ORDERED: SODI CHLOR 2.5MEQ/ML 14.6% 77 MEQ in DEXTROSE 10% 1,000 ML IV SCH (13:15)
[2025-04-22 13:30] LABS: Hematocrit (blood only) 40.9 % (37.0-47.0); Hemoglobin 14.6 g/dl (12.0-16.0); Immature Granulocytes # (auto) 0.02 K/uL (0.01-0.20); Immature Granulocytes % (auto) 0.2 %; Mean Corpuscular Hemoglobin 32.5 pg (25.0-34.0); Mean Corpuscular Volume 91.1 fL (80.0-100.0); Platelet Count 276 K/uL (130-400); RDW Standard Deviation 41.8 fL (36.4-46.3); Red Blood Count 4.49 M/uL (4.20-5.40); White Blood Count 9.07 K/ul (4.8-10.8)
--- NOTE | 2025-04-22 14:01 | CT Scan Report ---
CT SCAN OF THE BRAIN WITHOUT IV CONTRAST CLINICAL HISTORY: Change in mental status. Unresponsive. COMPARISON STUDY: CT of the brain dated 11/16/2024. TECHNIQUE: Unenhanced axial CT scan of the brain is performed from the vertex to the skull base. Imag es are reviewed in the axial, sagittal, and coronal planes. A dose lowering technique was utilized a dhering to the principles of ALARA. CT DOSE: 990.41 mGy.cm FINDINGS: Brain parenchyma: There is age-related involutional change noting minimal microangiopathic disease. A focus of right temporal encephalomalacia is unchanged and consistent with a remote insult. There is no hemorrhage, mass effect, or evidence of acute territorial ischemia by CT criteria. Kee-white soto er differentiation is preserved. No extra-axial fluid collection is seen. Ventricles, sulci, cisterns: Prominent secondary to involutional change. Intracranial vasculature: There is atherosclerotic calcification of the cavernous carotid and vertebr al arteries. Calvarium: Unremarkable. Sinuses and mastoids: The visualized paranasal sinuses are clear. The mastoid air cells are well pneu matized. Orbits: The bony orbits are grossly intact. IMPRESSION: There is no hemorrhage, mass effect, or evidence of acute territorial ischemia by CT crit eria. ACT 112: Negative or not required by law. Electronically signed by: Lauro Nj M.D. 04/22/2025 2:00 PM
[2025-04-22 14:06] LABS: Alanine Aminotransferase 19.0 U/L (7-52); Albumin Globulin Ratio 1.4 (0.9-2); Alkaline Phosphatase 113.0 U/L (34-104); Anion Gap 13.0 (3-11); Bilirubin,Total 0.5 mg/dl (0.2-1.0); Blood Urea Nitrogen 5.0 mg/dl (6-23); Calcium 8.9 mg/dl (8.6-10.3); Carbon Dioxide 28.0 mmol/L (21-32); Chloride 100.0 mmol/L (98-107); Creatinine Clr Calc Pharmacy 120.0 ml/min; Globulin 3.0 gm/dl (2.5-4.0); Glucose 15.0 mg/dl (70-99(Fasting)); Potassium 2.8 mmol/L (3.5-5.1); Sodium 141.0 mmol/L (136-145); Total Protein 7.2 gm/dl (6.0-8.3)
--- NOTE | 2025-04-22 14:07 | CT Scan Report ---
CT SCAN OF THE CERVICAL SPINE CLINICAL HISTORY: Unresponsive. Change in mental status. COMPARISON STUDY: Cervical spine CT dated 03/13/2024 TECHNIQUE: CT scan of the cervical spine is performed from the skull base to the upper thoracic spine . Images are reviewed in the axial, sagittal, and coronal planes. IV contrast was not administered fo r this examination. A dose lowering technique was utilized adhering to the principles of ALARA. FINDINGS: Skeletal structures: The skeletal structures are osteopenia. There is no evidence of fracture or subl uxation involving the cervical spine. Vertebral body height is maintained. There is minimal anterolis thesis at C2-C3. Alignment is otherwise preserved. There is straightening of the cervical lordosis. A nterior osteophytes are seen throughout. The odontoid process and lateral masses are intact. The atla ntoaxial articulation is preserved note is productive degenerative change. The spinous processes appe ar intact. There is moderate multilevel cervical spondylosis. Uncovertebral and facet arthropathy con tribute to neural foraminal narrowing at several levels. Intervertebral discs: Moderate disc space narrowing is noted at C3-C4, C4-C5, C5-C6. Central canal: Posterior disc osteophyte complexes at C4-C5, C5-C6, and C6-C7 may contribute to acqui red compromise of the central canal. Soft tissues: The prevertebral and paraspinous soft tissues are within normal limits. There is athero sclerotic calcification of the carotid bulbs. Calvarium: The visualized calvarium at the skull base appears intact. Brain parenchyma: Partially visualized brain parenchyma at the skull base is within normal limits. Sinuses and mastoids: The visualized paranasal sinuses are clear. The mastoid air cells are well pneu matized. Cerumen is noted in the external auditory canals. Lung apices: Clear as visualized. IMPRESSION: 1. There is no evidence of cervical spine fracture or subluxation. 2. Osteopenia and spondylotic change as above. ACT 112: Negative or not required by law. Electronically signed by: Lauro Nj M.D. 04/22/2025 2:05 PM
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
[2025-04-22] MEDS: POTASSIUM CHLORIDE / WTR 10 MEQ/100 ML PLCT IV SCH ×2 (14:32→17:57)
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
--- NOTE | 2025-04-22 15:11 | Electrocardiogram Report ---
Test Reason : Blood Pressure : */* mmHG Vent. Rate : 79 BPM Atrial Rate : 79 BPM P-R Int : 158 ms QRS Dur : 90 ms QT Int : 428 ms P-R-T Axes : 78 72 72 degrees QTcB Int : 490 ms Normal sinus rhythm Prolonged QT Abnormal ECG When compared with ECG of 16-Nov-2024 17:04, No significant change was found Confirmed by Pete Dimas ([id number]) on 04/22/2025 3:11:24 PM Referred By: Confirmed By: Pete Dimas
[2025-04-22] MEDS ORDERED: MAGNESIUM HYDROXIDE SUSP 30 ML UDC PO PRN (16:46)
[2025-04-22] MEDS ORDERED: POLYETHYLENE (MIRALAX) 17 GM PACK PO PRN (16:46)
[2025-04-22] MEDS ORDERED: chlordiazePOXIDE ALCOHOL WITHDRAWL 50MG PO STA (16:46)
[2025-04-22] MEDS ORDERED: GLUCAGON FOR INJ 1 MG VIAL SQ PRN (16:46)
[2025-04-22] MEDS ORDERED: PROMETHAZINE 6.25 MG/50.25 ML BAG IV PRN (16:46)
[2025-04-22] MEDS ORDERED: GLUCOSE 40% GEL 15 GM TUBE PO PRN (16:46)
[2025-04-22] MEDS ORDERED: PHARMACY GLYCEMIC MGMT CONSULT PRN (16:46)
[2025-04-22] MEDS ORDERED: GLUCOSE 10 TAB/TUBE PO PRN (16:46)
[2025-04-22] MEDS ORDERED: DEXTROSE 50% 50 ML SYRINGE IV PRN (16:46)
[2025-04-22] MEDS ORDERED: CARBOHYDRATES FOR HYPOGLYCEMIA PO PRN (16:46)
[2025-04-22 17:06] LABS: Magnesium 2.1 mg/dl (1.7-2.4)
[2025-04-22] MEDS: THIAMINE HCL 100 MG in SYRINGE 9 ML IV SCH (17:58)
[2025-04-22] MEDS: D5W AND 1/2NSS + 20MEQ KCL 20 MEQ/1,000 ML BAG IV SCH (17:58)
[2025-04-22 17:59] LABS: Base Excess VBG 0.9 mEq/L; HCO3 VBG 24 mmol/L; Oxygen Saturation VBG 95.8 %; PCO2 VBG 32 mmHg (38-50); PO2 VBG 72 mmHg; pH VBG 7.48 (7.36-7.41)
[2025-04-22] MEDS: FOLIC ACID 1 MG in SYRINGE 9.8 ML IV SCH (17:59)
[2025-04-22] MEDS: INSULIN ASPART PER UNIT CHARGE SC SCH (17:59)
[2025-04-22] MEDS: LACTATED RINGER'S 1,000 ML IV ONE (18:43)
--- NOTE | 2025-04-22 18:57 | Pharmacy Report ---
Pharmacy Glycemic Short Note 2 - Date of Service April 22, 2025 - Glycemic Short BSG Results (Last 24 hours): 04/22/25 04/22/25 04/22/25 13:00 13:02 13:05 Glucose 15 L* POC Glucose 31 L* 19 L* 04/22/25 04/22/25 04/22/25 13:10 13:49 15:56 Glucose POC Glucose 208 H 131 H 31 L* 04/22/25 04/22/25 16:16 17:21 Glucose POC Glucose 243 H 187 H OUTPATIENT ANTIDIABETIC REGIMEN: * Lantus 23 units HS, Novolog SSI ASSESSMENT: * 59 year old admitted s/p unresponsive episode, severe hypoglycemia, alcohol intoxication - blood sugar 31 mg/dL upon arrival to ER. Patient with poor PO intake over the past week. Per notes, patient had been taking long acting insulin despite poor PO intake. Patient reports not taking any insulin today. Patient did receive 2 amps of dextrose this afternoon - recheck BSG 243 mg/dL, now 187 mg/dL. * Instructed RN to hold insulin coverage at dinner time check, as likely still seeing effects of dextrose given. Will reassess and add on novolog to start at HS time with overnight checks. Patient also now starting dextrose IVFs. Could consider adding on low dose basal at HS as long as blood sugars continue to remain stable. r PLAN FOR INPATIENT GLYCEMIC CONTROL: * Hold outpatient oral diabetes medications * Basal insulin * Lantus - hold * Bolus insulin * NovoLog per scale ACHS or Q6hrs while NPO * Goal Range: Low 140 mg/dL - High 180 mg/dL * Correction Factor: 55 mg/dL/unit * Nutritional / Prandial insulin per carb ratio of 1 unit per 20 grams CHO consumed
[2025-04-22] MEDS: PIPERACILLIN/TAZOBACTAM 4.5 GM/100 ML BAG IV ONE (19:28)
[2025-04-22] MEDS: GABAPENTIN 300 MG CAP PO SCH (20:21)
[2025-04-22] MEDS: POTASSIUM CHLORIDE CRTAB 20 MEQ TABCR PO SCH (20:21)
[2025-04-22 20:45] LABS: Anion Gap 10.0 (3-11); Blood Urea Nitrogen 4.0 mg/dl (6-23); Calcium 8.4 mg/dl (8.6-10.3); Carbon Dioxide 25.0 mmol/L (21-32); Chloride 101.0 mmol/L (98-107); Creatinine Clr Calc Pharmacy 63.8 ml/min; Glucose 204.0 mg/dl (70-99(Fasting)); Potassium 4.4 mmol/L (3.5-5.1); Sodium 136.0 mmol/L (136-145)
[2025-04-22] MEDS: COUGH DROP (SUGAR FREE) LOZ 24 LOZ/1 BOX BUCCAL STA (21:16)
--- NOTE | 2025-04-22 23:13 | Ultrasound Report ---
Exam(s): US CAROTID EXAM: US Duplex Bilateral Extracranial Arteries CLINICAL HISTORY: Reason for exam: Carotid Stenosis. TECHNIQUE: Real-time duplex ultrasound scan of the extracranial arteries integrating B-mode two-dimensional vascular structure, Doppler spectral analysis and color flow Doppler imaging. COMPARISON: No relevant prior studies available. FINDINGS: Right common carotid artery: Scattered calcific plaque. No occlusion or significant stenosis on color flow and spectral Doppler imaging. Right internal carotid artery: Heavy calcific plaque at the bulb. Peak systolic velocity 229 cm/sec in the proximal segment. No occlusion on color flow and spectral Doppler imaging. Right external carotid artery: Plaque with elevated velocity of 190 cm/sec suggesting a degree of stenosis. No occlusion or significant stenosis on color flow and spectral Doppler imaging. Right vertebral artery: Unremarkable. Antegrade flow. Right ICA/CCA ratio: 1.7. Within normal limits. Left common carotid artery: Scattered calcific plaque. No occlusion or significant stenosis on color flow and spectral Doppler imaging. Left internal carotid artery: Calcific plaque. Peak systolic velocity 105 cm/sec. No occlusion or significant stenosis on color flow and spectral Doppler imaging. Left external carotid artery: Unremarkable. No occlusion or significant stenosis on color flow and spectral Doppler imaging. Left vertebral artery: Unremarkable. Antegrade flow. Left ICA/CCA ratio: 0.8. Within normal limits. CAROTID STENOSIS REFERENCE USING IAC CRITERIA: Mild - <50% stenosis. ICA PSV is less than 180 cm/s and plaque or intimal thickening is visible. Moderate - 50-69% stenosis. ICA PSV is 180 to 230 cm/s and plaque is visible. Severe - 70-94% stenosis. ICA PSV is more than 230 cm/s and visible plaque with lumen narrowing is seen. Near occlusion - 95-99% stenosis. ICA PSV is variable and significant plaque with luminal narrowing is seen. Occluded - 100% stenosis. No flow identified. IMPRESSION: 1. Estimated 50-69% stenosis in the proximal right ICA by sonographic criteria. This technically represents a moderate stenosis but is borderline for severe stenosis based on velocity criteria. 2. Estimated less than 50% stenosis in the left ICA by sonographic criteria. Electronically signed by: Michelle Salazar M.D. 04/22/25 23:12 PM
[2025-04-23] MEDS: ACETAMINOPHEN 325 MG TAB PO PRN
[2025-04-23] MEDS: PIPERACILLIN/TAZOBACTAM 4.5 GM/100 ML BAG IV SCH (00:03)
[2025-04-23] MEDS: INSULIN ASPART PER UNIT CHARGE SC SCH (00:13)
[2025-04-23 05:33] LABS: Amphetamines+Metham, Urine Neg (Neg); MDMA (Ecstacy), Urine Neg (Neg); Marijuana, Urine Neg (Neg)
[2025-04-23 06:07] LABS: Hematocrit (blood only) 36.7 % (37.0-47.0); Hemoglobin 13.2 g/dl (12.0-16.0); Immature Granulocytes # (auto) 0.01 K/uL (0.01-0.20); Immature Granulocytes % (auto) 0.2 %; Mean Corpuscular Hemoglobin 32.8 pg (25.0-34.0); Mean Corpuscular Volume 91.1 fL (80.0-100.0); Platelet Count 159 K/uL (130-400); RDW Standard Deviation 41.7 fL (36.4-46.3); Red Blood Count 4.03 M/uL (4.20-5.40); White Blood Count 6.03 K/ul (4.8-10.8)
[2025-04-23 06:26] LABS: Appearance Urine Clear (Clear); Glucose Urine UA Negative (Negative)
[2025-04-23 06:36] LABS: Alanine Aminotransferase 17.0 U/L (7-52); Albumin Globulin Ratio 1.5 (0.9-2); Alkaline Phosphatase 99.0 U/L (34-104); Anion Gap 7.0 (3-11); Bilirubin,Total 1.2 mg/dl (0.2-1.0); Blood Urea Nitrogen 4.0 mg/dl (6-23); Calcium 8.6 mg/dl (8.6-10.3); Carbon Dioxide 27.0 mmol/L (21-32); Chloride 105.0 mmol/L (98-107); Creatinine Clr Calc Pharmacy 67.9 ml/min; Globulin 2.3 gm/dl (2.5-4.0); Glucose 136.0 mg/dl (70-99(Fasting)); Magnesium 1.8 mg/dl (1.7-2.4); Potassium 4.4 mmol/L (3.5-5.1); Sodium 139.0 mmol/L (136-145); Total Protein 5.8 gm/dl (6.0-8.3)
[2025-04-23 06:56] LABS: Folate (Folic Acid),Ser orPlas > 22.30 ng/ml (>5.38)
[2025-04-23 06:57] LABS: Vitamin B12 372 pg/ml (180-914)
[2025-04-23 07:41] LABS: Hemoglobin A1C 7.7 % (4.5-5.6)
[2025-04-23] MEDS: FLUTICASONE PROPIONATE NA SPR 16 GM BTL SCH (08:25)
[2025-04-23] MEDS: CYANOCOBALAMIN (B-12) 500 MCG TABLET PO SCH (08:47)
--- NOTE | 2025-04-23 09:08 | XCELERA ---
[id number] \\[id number]
--- NOTE | 2025-04-23 10:29 | Hospitalist Progress Note ---
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 #Unresponsive episode #Severe hypoglycemia --> BSG 31 upon arrival to ED, no BSG done in the field via EMS; pt w/ recent poor po intake Head CT: grossly unremarkable/no hemorrhage, mass effect or evidence of acute territorial ischemia Cervical spine CT: no evidence of cervical spine fracture or subluxation, osteopenia/spondylotic changes] Pt A&Ox3 in ED but somewhat of a poor historian -Pt is, however, able to recall all events of the day CBC unremarkable, EtOH level as per below Check UA, urine tox Check VBG, ammonia, lactate BSG now improved 04/23 Pt is awake, alert, answers appropriately, reports feeling well and denies any complaints #Hypothermia --> temp 34.2 C upon arrival Possibly related to acute hypoglycemia --> however, check blood cxs -No clear source of infection at this time, procal negative blood cultx pending Monitor body temp w/ Hernandez hugger application (will remove when able) 04/23 Pt's temp. is now normal Elevated lactic acid Lactate came back at 5.3 --> empiric IV Zosyn started; IVF onboard, follow repeat lactate - repeat lactate 4.3 on 04/22/2025 evening This AM lactate still elevated at 3.7 (but down from previous), for now cont. zosyn, will provide IVF #Alcohol intoxication --> EtOH level 217 upon arrival #H/o alcohol abuse Consumed "many cans" of beer last evening; ? wine consumption as well per d/w pt's mother Prior to last evening, pt reportedly sober x 2-3mo per pt's mother No prior h/o alc w/d seizures per pt's mother IV thiamine/folic acid daily Librium taper Monitor AWSS score, closely monitor #Hypokalemia K+ 2.8 upon arrival Likely related to poor po intake replace and monitor #DMII Hold home regimen SSI protocol for now -BSG goal 140-180 for now given presenting severe hypoglycemia, appreciate glycemic pharm assistance Hgb A1c 7.6% in Nov 2024 --> current Hgb A1c 7.7% Follow BSG checks DM educator consult #Severe asymptomatic RCA stenosis Dx'd last admission in Nov 2024 --> no urgent intervention taken as pt asymptomatic Neck CTA, Nov 2024: high-grade 90% stenosis in the proximal right internal carotid artery, dense calcified plaque present at this level Will need outpt f/u regarding this --> per prior vasc surg documentation: "..would consider pt for elective surgical intervention (CEA vs TCAR) in the near future" DVT Prophylaxis: SCDs/TEDs for now Disposition: PCU Pt's mother, Joan James, requesting daily updates @ [phone] Admission and Anticipated Discharge Date Admission Date: April 22, 2025 Subjective Pt seen in follow up, had unresponsive episode in grocery store Was found hypoglycemic , hypothermic, and with alcohol level of 217. Lactic acid elevated This AM lactic acid still elevated at 3.7 but down from yesterday Pt is currently sitting up in bed in [facility], she is awake, alert, answers appropriately. Currently she says she is feeling well, denies any complaints. Denies fever, chills, chest pain, shortness of breath. Denies any abd.pain. n/v Review of Systems Review of Systems: All systems reviewed & are unremarkable except as noted in Subjective Physical Exam Physical Exam: General Appearance: Thin adult F in NAD Head: normocephalic, Atraumatic Eyes: normal inspection, EOMI Neck: supple Respiratory/Chest: Normal breath sounds, CTA, No accessory muscle use Cardiovascular: S1, S2, No murmur Abdomen/GI: Soft, Non tender, Bowel sounds present Extremities/Musculoskeletal: normal inspection, no edema, L BKA, moves extremities Neurologic/Psych: AAOX3, speech fluent, no facial asymmetry, answers appropriately, moves extremities Skin: normal color, warm, dry Results & Data Results & Data Vital Signs (Past 12 Hours) Vital Signs Temp Pulse Pulse Resp BP Pulse Ox O2 Del Method 04/23/25 07:34 36.7 C 86 20 163/95 H 95 Room Air 04/23/25 02:43 36.9 C 100 H 22 160/93 H 91 Room Air 04/22/25 22:54 36.8 C 109 H 22 169/91 H 96 Room Air 04/22/25 22:37 96 H Laboratory Results 04/23/25 04/23/25 04/23/25 Range/Units 09:04 07:33 05:41 WBC 6.03 (4.8-10.8) K/ul RBC 4.03 L (4.20-5.40) M/uL Hgb 13.2 (12.0-16.0) g/dl Hct 36.7 L (37.0-47.0) % MCV 91.1 (80.0-100.0) fL MCH 32.8 (25.0-34.0) pg MCHC 36.0 (32.0-36.0) g/dL RDW Std Deviation 41.7 (36.4-46.3) fL RDW Coeff of Ethel 12.5 (11.5-14.5) % Plt Count 159 (130-400) K/uL MPV 9.8 (9.4-12.4) fL Immature Gran % (Auto) 0.2 % Neut % (Auto) 61.2 % Lymph % (Auto) 31.0 % [place] % (Auto) 4.5 % Eos % (Auto) 2.3 % Baso % (Auto) 0.8 % Neut # (Auto) 3.69 (1.40-6.50) K/uL Lymph # (Auto) 1.87 (1.20-3.40) K/uL [place] # (Auto) 0.27 (0.11-0.59) K/uL Eos # (Auto) 0.14 (0.00-0.50) K/uL Baso # (Auto) 0.05 (0.00-0.20) K/uL Immature Gran # (Auto) 0.01 (0.01-0.20) K/uL VBG pH (7.36-7.41) VBG pCO2 (38-50) mmHg VBG pO2 mmHg VBG HCO3 mmol/L VBG O2 Saturation % VBG Base Excess mEq/L Sodium 139 (136-145) mmol/L Potassium 4.4 (3.5-5.1) mmol/L Chloride 105 (98-107) mmol/L Carbon Dioxide 27 (21-32) mmol/L Anion Gap 7 (3-11) BUN 4 L (6-23) mg/dl Creatinine 0.81 (0.6-1.2) mg/dl Est Cr Clr Drug Dosing 67.9 ml/min eGFR 83.57 BUN/Creatinine Ratio 4.9 L (10-20) Glucose 136 H (70-99(Fasting)) mg/dl POC Glucose 130 H (70-99) mg/dl Estimat Average Glucose 174 mg/dl Hemoglobin A1c 7.7 H (4.5-5.6) % Lactate 3.7 H* (0.4-2.0) mmol/L Calcium 8.6 (8.6-10.3) mg/dl Phosphorus 3.7 (2.5-4.9) mg/dl Magnesium 1.8 (1.7-2.4) mg/dl Total Bilirubin 1.2 H D (0.2-1.0) mg/dl AST 32 (13-39) U/L ALT 17 (7-52) U/L Alkaline Phosphatase 99 (34-104) U/L Ammonia (18-72) umol/L Total Protein 5.8 L (6.0-8.3) gm/dl Albumin 3.5 (3.4-5.0) gm/dl Globulin 2.3 L (2.5-4.0) gm/dl Albumin/Globulin Ratio 1.5 (0.9-2) Vitamin B12 372 (180-914) pg/ml Folate > 22.30 (>5.38) ng/ml Procalcitonin (0-0.5) ng/ml Urine Color Urine Appearance (Clear) Urine pH (4.5-7.5) Ur Specific [place] (1.000-1.030) Urine Protein (Negative) Urine Glucose (UA) (Negative) Urine Ketones (Negative) Urine Blood (Negative) Urine Nitrite (Negative) Urine Bilirubin (Negative) Urine Urobilinogen (Negative) Ur Leukocyte Esterase (Negative) Urine Comment Urine Opiates Screen (Neg) Ur Methadone, Qual (Neg) Urine Fentanyl Screen (Neg) Urine Barbiturates (Neg) Ur Phencyclidine (PCP) (Neg) U Amphetamin/Meth Scrn (Neg) MDMA (Ecstasy) Screen (Neg) U Benzodiazepines Scrn (Neg) Ur Cocaine Metabolite (Neg) U Marijuana (THC) Screen (Neg) Ethyl Alcohol mg/dL (<10.0) mg/dl 04/23/25 04/23/25 04/22/25 Range/Units 05:00 04:44 23:55 WBC (4.8-10.8) K/ul RBC (4.20-5.40) M/uL Hgb (12.0-16.0) g/dl Hct (37.0-47.0) % MCV (80.0-100.0) fL MCH (25.0-34.0) pg MCHC (32.0-36.0) g/dL RDW Std Deviation (36.4-46.3) fL RDW Coeff of Ethel (11.5-14.5) % Plt Count (130-400) K/uL MPV (9.4-12.4) fL Immature Gran % (Auto) % Neut % (Auto) % Lymph % (Auto) % [place] % (Auto) % Eos % (Auto) % Baso % (Auto) % Neut # (Auto) (1.40-6.50) K/uL Lymph # (Auto) (1.20-3.40) K/uL [place] # (Auto) (0.11-0.59) K/uL Eos # (Auto) (0.00-0.50) K/uL Baso # (Auto) (0.00-0.20) K/uL Immature Gran # (Auto) (0.01-0.20) K/uL VBG pH (7.36-7.41) VBG pCO2 (38-50) mmHg VBG pO2 mmHg VBG HCO3 mmol/L VBG O2 Saturation % VBG Base Excess mEq/L Sodium (136-145) mmol/L Potassium (3.5-5.1) mmol/L Chloride (98-107) mmol/L Carbon Dioxide (21-32) mmol/L Anion Gap (3-11) BUN (6-23) mg/dl Creatinine (0.6-1.2) mg/dl Est Cr Clr Drug Dosing ml/min eGFR BUN/Creatinine Ratio (10-20) Glucose (70-99(Fasting)) mg/dl POC Glucose 148 H 145 H (70-99) mg/dl Estimat Average Glucose mg/dl Hemoglobin A1c (4.5-5.6) % Lactate (0.4-2.0) mmol/L Calcium (8.6-10.3) mg/dl Phosphorus (2.5-4.9) mg/dl Magnesium (1.7-2.4) mg/dl Total Bilirubin (0.2-1.0) mg/dl AST (13-39) U/L ALT (7-52) U/L Alkaline Phosphatase (34-104) U/L Ammonia (18-72) umol/L Total Protein (6.0-8.3) gm/dl Albumin (3.4-5.0) gm/dl Globulin (2.5-4.0) gm/dl Albumin/Globulin Ratio (0.9-2) Vitamin B12 (180-914) pg/ml Folate (>5.38) ng/ml Procalcitonin (0-0.5) ng/ml Urine Color Yellow Urine Appearance Clear (Clear) Urine pH 8.0 H (4.5-7.5) Ur Specific [place] 1.007 (1.000-1.030) Urine Protein Negative (Negative) Urine Glucose (UA) Negative (Negative) Urine Ketones Negative (Negative) Urine Blood Negative (Negative) Urine Nitrite Negative (Negative) Urine Bilirubin Negative (Negative) Urine Urobilinogen Negative (Negative) Ur Leukocyte Esterase Negative (Negative) Urine Comment Urine Opiates Screen Neg (Neg) Ur Methadone, Qual Neg (Neg) Urine Fentanyl Screen Neg (Neg) Urine Barbiturates Neg (Neg) Ur Phencyclidine (PCP) Neg (Neg) U Amphetamin/Meth Scrn Neg (Neg) MDMA (Ecstasy) Screen Neg (Neg) U Benzodiazepines Scrn Neg (Neg) Ur Cocaine Metabolite Neg (Neg) U Marijuana (THC) Screen Neg (Neg) Ethyl Alcohol mg/dL (<10.0) mg/dl 04/22/25 04/22/25 04/22/25 Range/Units 20:12 19:52 17:36 WBC (4.8-10.8) K/ul RBC (4.20-5.40) M/uL Hgb (12.0-16.0) g/dl Hct (37.0-47.0) % MCV (80.0-100.0) fL MCH (25.0-34.0) pg MCHC (32.0-36.0) g/dL RDW Std Deviation (36.4-46.3) fL RDW Coeff of Ethel (11.5-14.5) % Plt Count (130-400) K/uL MPV (9.4-12.4) fL Immature Gran % (Auto) % Neut % (Auto) % Lymph % (Auto) % [place] % (Auto) % Eos % (Auto) % Baso % (Auto) % Neut # (Auto) (1.40-6.50) K/uL Lymph # (Auto) (1.20-3.40) K/uL [place] # (Auto) (0.11-0.59) K/uL Eos # (Auto) (0.00-0.50) K/uL Baso # (Auto) (0.00-0.20) K/uL Immature Gran # (Auto) (0.01-0.20) K/uL VBG pH 7.48 H (7.36-7.41) VBG pCO2 32 L (38-50) mmHg VBG pO2 72 mmHg VBG HCO3 24 mmol/L VBG O2 Saturation 95.8 % VBG Base Excess 0.9 mEq/L Sodium 136 (136-145) mmol/L Potassium 4.4 D (3.5-5.1) mmol/L Chloride 101 (98-107) mmol/L Carbon Dioxide 25 (21-32) mmol/L Anion Gap 10 (3-11) BUN 4 L (6-23) mg/dl Creatinine 0.85 D (0.6-1.2) mg/dl Est Cr Clr Drug Dosing 63.8 ml/min eGFR 78.87 BUN/Creatinine Ratio 4.7 L (10-20) Glucose 204 H (70-99(Fasting)) mg/dl POC Glucose 223 H (70-99) mg/dl Estimat Average Glucose mg/dl Hemoglobin A1c (4.5-5.6) % Lactate 4.3 H* 5.3 H* (0.4-2.0) mmol/L Calcium 8.4 L (8.6-10.3) mg/dl Phosphorus (2.5-4.9) mg/dl Magnesium (1.7-2.4) mg/dl Total Bilirubin (0.2-1.0) mg/dl AST (13-39) U/L ALT (7-52) U/L Alkaline Phosphatase (34-104) U/L Ammonia 37.0 (18-72) umol/L Total Protein (6.0-8.3) gm/dl Albumin (3.4-5.0) gm/dl Globulin (2.5-4.0) gm/dl Albumin/Globulin Ratio (0.9-2) Vitamin B12 (180-914) pg/ml Folate (>5.38) ng/ml Procalcitonin (0-0.5) ng/ml Urine Color Urine Appearance (Clear) Urine pH (4.5-7.5) Ur Specific [place] (1.000-1.030) Urine Protein (Negative) Urine Glucose (UA) (Negative) Urine Ketones (Negative) Urine Blood (Negative) Urine Nitrite (Negative) Urine Bilirubin (Negative) Urine Urobilinogen (Negative) Ur Leukocyte Esterase (Negative) Urine Comment Urine Opiates Screen (Neg) Ur Methadone, Qual (Neg) Urine Fentanyl Screen (Neg) Urine Barbiturates (Neg) Ur Phencyclidine (PCP) (Neg) U Amphetamin/Meth Scrn (Neg) MDMA (Ecstasy) Screen (Neg) U Benzodiazepines Scrn (Neg) Ur Cocaine Metabolite (Neg) U Marijuana (THC) Screen (Neg) Ethyl Alcohol mg/dL (<10.0) mg/dl 04/22/25 04/22/25 04/22/25 Range/Units 17:21 16:16 15:56 WBC (4.8-10.8) K/ul RBC (4.20-5.40) M/uL Hgb (12.0-16.0) g/dl Hct (37.0-47.0) % MCV (80.0-100.0) fL MCH (25.0-34.0) pg MCHC (32.0-36.0) g/dL RDW Std Deviation (36.4-46.3) fL RDW Coeff of Ethel (11.5-14.5) % Plt Count (130-400) K/uL MPV (9.4-12.4) fL Immature Gran % (Auto) % Neut % (Auto) % Lymph % (Auto) % [place] % (Auto) % Eos % (Auto) % Baso % (Auto) % Neut # (Auto) (1.40-6.50) K/uL Lymph # (Auto) (1.20-3.40) K/uL [place] # (Auto) (0.11-0.59) K/uL Eos # (Auto) (0.00-0.50) K/uL Baso # (Auto) (0.00-0.20) K/uL Immature Gran # (Auto) (0.01-0.20) K/uL VBG pH (7.36-7.41) VBG pCO2 (38-50) mmHg VBG pO2 mmHg VBG HCO3 mmol/L VBG O2 Saturation % VBG Base Excess mEq/L Sodium (136-145) mmol/L Potassium (3.5-5.1) mmol/L Chloride (98-107) mmol/L Carbon Dioxide (21-32) mmol/L Anion Gap (3-11) BUN (6-23) mg/dl Creatinine (0.6-1.2) mg/dl Est Cr Clr Drug Dosing ml/min eGFR BUN/Creatinine Ratio (10-20) Glucose (70-99(Fasting)) mg/dl POC Glucose 187 H 243 H 31 L* (70-99) mg/dl Estimat Average Glucose mg/dl Hemoglobin A1c (4.5-5.6) % Lactate (0.4-2.0) mmol/L Calcium (8.6-10.3) mg/dl Phosphorus (2.5-4.9) mg/dl Magnesium (1.7-2.4) mg/dl Total Bilirubin (0.2-1.0) mg/dl AST (13-39) U/L ALT (7-52) U/L Alkaline Phosphatase (34-104) U/L Ammonia (18-72) umol/L Total Protein (6.0-8.3) gm/dl Albumin (3.4-5.0) gm/dl Globulin (2.5-4.0) gm/dl Albumin/Globulin Ratio (0.9-2) Vitamin B12 (180-914) pg/ml Folate (>5.38) ng/ml Procalcitonin (0-0.5) ng/ml Urine Color Urine Appearance (Clear) Urine pH (4.5-7.5) Ur Specific [place] (1.000-1.030) Urine Protein (Negative) Urine Glucose (UA) (Negative) Urine Ketones (Negative) Urine Blood (Negative) Urine Nitrite (Negative) Urine Bilirubin (Negative) Urine Urobilinogen (Negative) Ur Leukocyte Esterase (Negative) Urine Comment Urine Opiates Screen (Neg) Ur Methadone, Qual (Neg) Urine Fentanyl Screen (Neg) Urine Barbiturates (Neg) Ur Phencyclidine (PCP) (Neg) U Amphetamin/Meth Scrn (Neg) MDMA (Ecstasy) Screen (Neg) U Benzodiazepines Scrn (Neg) Ur Cocaine Metabolite (Neg) U Marijuana (THC) Screen (Neg) Ethyl Alcohol mg/dL (<10.0) mg/dl 04/22/25 04/22/25 04/22/25 Range/Units 13:49 13:10 13:05 WBC 9.07 (4.8-10.8) K/ul RBC 4.49 (4.20-5.40) M/uL Hgb 14.6 (12.0-16.0) g/dl Hct 40.9 (37.0-47.0) % MCV 91.1 (80.0-100.0) fL MCH 32.5 (25.0-34.0) pg MCHC 35.7 (32.0-36.0) g/dL RDW Std Deviation 41.8 (36.4-46.3) fL RDW Coeff of Ethel 12.3 (11.5-14.5) % Plt Count 276 (130-400) K/uL MPV 9.7 (9.4-12.4) fL Immature Gran % (Auto) 0.2 % Neut % (Auto) 80.5 % Lymph % (Auto) 15.7 % [place] % (Auto) 3.0 % Eos % (Auto) 0.3 % Baso % (Auto) 0.3 % Neut # (Auto) 7.30 H (1.40-6.50) K/uL Lymph # (Auto) 1.42 (1.20-3.40) K/uL [place] # (Auto) 0.27 (0.11-0.59) K/uL Eos # (Auto) 0.03 (0.00-0.50) K/uL Baso # (Auto) 0.03 (0.00-0.20) K/uL Immature Gran # (Auto) 0.02 (0.01-0.20) K/uL VBG pH (7.36-7.41) VBG pCO2 (38-50) mmHg VBG pO2 mmHg VBG HCO3 mmol/L VBG O2 Saturation % VBG Base Excess mEq/L Sodium 141 (136-145) mmol/L Potassium 2.8 L (3.5-5.1) mmol/L Chloride 100 (98-107) mmol/L Carbon Dioxide 28 (21-32) mmol/L Anion Gap 13 H (3-11) BUN 5 L (6-23) mg/dl Creatinine 0.47 L (0.6-1.2) mg/dl Est Cr Clr Drug Dosing 120.0 ml/min eGFR 109.60 BUN/Creatinine Ratio 10.6 (10-20) Glucose 15 L* (70-99(Fasting)) mg/dl POC Glucose 131 H 208 H (70-99) mg/dl Estimat Average Glucose mg/dl Hemoglobin A1c (4.5-5.6) % Lactate (0.4-2.0) mmol/L Calcium 8.9 (8.6-10.3) mg/dl Phosphorus (2.5-4.9) mg/dl Magnesium 2.1 (1.7-2.4) mg/dl Total Bilirubin 0.5 (0.2-1.0) mg/dl AST 35 (13-39) U/L ALT 19 (7-52) U/L Alkaline Phosphatase 113 H (34-104) U/L Ammonia (18-72) umol/L Total Protein 7.2 (6.0-8.3) gm/dl Albumin 4.2 (3.4-5.0) gm/dl Globulin 3.0 (2.5-4.0) gm/dl Albumin/Globulin Ratio 1.4 (0.9-2) Vitamin B12 (180-914) pg/ml Folate (>5.38) ng/ml Procalcitonin < 0.02 (0-0.5) ng/ml Urine Color Urine Appearance (Clear) Urine pH (4.5-7.5) Ur Specific [place] (1.000-1.030) Urine Protein (Negative) Urine Glucose (UA) (Negative) Urine Ketones (Negative) Urine Blood (Negative) Urine Nitrite (Negative) Urine Bilirubin (Negative) Urine Urobilinogen (Negative) Ur Leukocyte Esterase (Negative) Urine Comment Urine Opiates Screen (Neg) Ur Methadone, Qual (Neg) Urine Fentanyl Screen (Neg) Urine Barbiturates (Neg) Ur Phencyclidine (PCP) (Neg) U Amphetamin/Meth Scrn (Neg) MDMA (Ecstasy) Screen (Neg) U Benzodiazepines Scrn (Neg) Ur Cocaine Metabolite (Neg) U Marijuana (THC) Screen (Neg) Ethyl Alcohol mg/dL (<10.0) mg/dl 04/22/25 04/22/25 04/22/25 Range/Units 13:04 13:02 13:00 WBC (4.8-10.8) K/ul RBC (4.20-5.40) M/uL Hgb (12.0-16.0) g/dl Hct (37.0-47.0) % MCV (80.0-100.0) fL MCH (25.0-34.0) pg MCHC (32.0-36.0) g/dL RDW Std Deviation (36.4-46.3) fL RDW Coeff of Ethel (11.5-14.5) % Plt Count (130-400) K/uL MPV (9.4-12.4) fL Immature Gran % (Auto) % Neut % (Auto) % Lymph % (Auto) % [place] % (Auto) % Eos % (Auto) % Baso % (Auto) % Neut # (Auto) (1.40-6.50) K/uL Lymph # (Auto) (1.20-3.40) K/uL [place] # (Auto) (0.11-0.59) K/uL Eos # (Auto) (0.00-0.50) K/uL Baso # (Auto) (0.00-0.20) K/uL Immature Gran # (Auto) (0.01-0.20) K/uL VBG pH (7.36-7.41) VBG pCO2 (38-50) mmHg VBG pO2 mmHg VBG HCO3 mmol/L VBG O2 Saturation % VBG Base Excess mEq/L Sodium (136-145) mmol/L Potassium (3.5-5.1) mmol/L Chloride (98-107) mmol/L Carbon Dioxide (21-32) mmol/L Anion Gap (3-11) BUN (6-23) mg/dl Creatinine (0.6-1.2) mg/dl Est Cr Clr Drug Dosing ml/min eGFR BUN/Creatinine Ratio (10-20) Glucose (70-99(Fasting)) mg/dl POC Glucose 19 L* 31 L* (70-99) mg/dl Estimat Average Glucose mg/dl Hemoglobin A1c (4.5-5.6) % Lactate (0.4-2.0) mmol/L Calcium (8.6-10.3) mg/dl Phosphorus (2.5-4.9) mg/dl Magnesium (1.7-2.4) mg/dl Total Bilirubin (0.2-1.0) mg/dl AST (13-39) U/L ALT (7-52) U/L Alkaline Phosphatase (34-104) U/L Ammonia (18-72) umol/L Total Protein (6.0-8.3) gm/dl Albumin (3.4-5.0) gm/dl Globulin (2.5-4.0) gm/dl Albumin/Globulin Ratio (0.9-2) Vitamin B12 (180-914) pg/ml Folate (>5.38) ng/ml Procalcitonin (0-0.5) ng/ml Urine Color Urine Appearance (Clear) Urine pH (4.5-7.5) Ur Specific [place] (1.000-1.030) Urine Protein (Negative) Urine Glucose (UA) (Negative) Urine Ketones (Negative) Urine Blood (Negative) Urine Nitrite (Negative) Urine Bilirubin (Negative) Urine Urobilinogen (Negative) Ur Leukocyte Esterase (Negative) Urine Comment Urine Opiates Screen (Neg) Ur Methadone, Qual (Neg) Urine Fentanyl Screen (Neg) Urine Barbiturates (Neg) Ur Phencyclidine (PCP) (Neg) U Amphetamin/Meth Scrn (Neg) MDMA (Ecstasy) Screen (Neg) U Benzodiazepines Scrn (Neg) Ur Cocaine Metabolite (Neg) U Marijuana (THC) Screen (Neg) Ethyl Alcohol mg/dL 217.1 H (<10.0) mg/dl Medications Administered Current Inpatient Medications Acetaminophen (Acetaminophen 325 Mg Tab) 650 mg PO Q4H PRN PRN Reason: Pain or Fever Stop: 05/22/25 16:45 Last Admin: 04/23/25 00:00 Dose: 650 mg Chlordiazepoxide HCl (Chlordiazepoxide Hcl 25 Mg Cap) 50 mg PO Q8H [facility] Stop: 04/24/25 10:01 Chlordiazepoxide HCl (Chlordiazepoxide Hcl 25 Mg Cap) 50 mg PO Q6H [facility] Stop: 04/23/25 12:01 Last Admin: 04/23/25 05:21 Dose: 50 mg Chlordiazepoxide HCl (Chlordiazepoxide Hcl 25 Mg Cap) 25 mg PO Q8H [facility] Stop: 04/25/25 10:01 Chlordiazepoxide HCl (Chlordiazepoxide Hcl 10 Mg Cap) 10 mg PO Q12H [facility] Stop: 04/26/25 10:01 Cyanocobalamin (Cyanocobalamin (B-12) 500 Mcg Tablet) 1,000 mcg PO DAILY [facility] Stop: 05/23/25 08:59 Last Admin: 04/23/25 08:47 Dose: 1,000 mcg Dextrose (Dextrose 50% 50 Ml Syringe) 25 - 50 ml IV UD PRN; Protocol PRN Reason: Hypoglycemia Protocol Stop: 05/22/25 16:45 Duloxetine HCl (Duloxetine Hcl 30 Mg Cap) 30 mg PO QAM [facility] Stop: 05/23/25 08:59 Last Admin: 04/23/25 08:25 Dose: 30 mg Fluticasone Propionate (Fluticasone Propionate Na Spr 16 Gm Btl) 1 sprays NA QAM [facility] Stop: 05/23/25 08:59 Last Admin: 04/23/25 08:25 Dose: 1 sprays Gabapentin (Gabapentin 300 Mg Cap) 300 mg PO TID [facility] Stop: 05/22/25 20:59 Last Admin: 04/23/25 08:24 Dose: 300 mg Glucagon (Glucagon For Inj 1 Mg Vial) 1 mg SQ UD PRN; Protocol PRN Reason: Hypoglycemia Protocol Stop: 05/22/25 16:45 Glucose (Glucose 40% Gel 15 Gm Tube) 15 - 30 gm PO UD PRN; Protocol PRN Reason: Hypoglycemia Protocol Stop: 05/22/25 16:45 Glucose (Glucose 10 Tab/Tube) 4 - 8 tab PO UD PRN; Protocol PRN Reason: Hypoglycemia Protocol Stop: 05/22/25 16:45 Thiamine HCl 100 mg/ Syringe 10 mls @ 2 mls/min IV QAM [facility] Stop: 05/22/25 17:59 Last Admin: 04/23/25 08:20 Dose: 2 mls/min Folic Acid 1 mg/ Syringe 10 mls @ 5 mls/min IV QAM [facility] Stop: 05/22/25 17:59 Last Admin: 04/23/25 08:20 Dose: 5 mls/min Promethazine HCl (Phenergan) 6.25 mg in 50.25 mls @ 201 mls/hr IV Q6H PRN PRN Reason: Nausea And Vomiting Stop: 05/22/25 16:45 Piperacillin Sod/Tazobactam Sod (Zosyn) 4.5 gm in 100 mls @ 25 mls/hr IV Q8H [facility]; Protocol Stop: 04/25/25 00:00 Last Admin: 04/23/25 08:19 Dose: 25 mls/hr Sodium Chloride (Nss) 500 mls @ 80 mls/hr IV .[id number] ONE Stop: 04/23/25 16:49 Insulin Aspart (Insulin Aspart Per Unit Charge) 0 units SC ACHS [facility] Stop: 05/22/25 17:59 Last Admin: 04/23/25 08:18 Dose: 2 units Insulin Aspart (Insulin Aspart Per Unit Charge) 0 units SC [id number] [facility] Stop: 05/23/25 00:00 Last Admin: 04/23/25 04:50 Dose: Not Given Magnesium Hydroxide (Magnesium Hydroxide Susp 30 Ml Udc) 30 ml PO Q12H PRN PRN Reason: Constipation Stop: 05/22/25 16:45 Miscellaneous (Carbohydrates For Hypoglycemia ) 15 - 30 gm PO UD PRN PRN Reason: Hypoglycemia Protocol Stop: 05/22/25 16:45 Miscellaneous Information (Pharmacy Glycemic Mgmt Consult) 1 each N/A UD PRN PRN Reason: Consult Stop: 05/22/25 16:45 Polyethylene Glycol (Polyethylene (Miralax) 17 Gm Pack) 17 gm PO DAILY PRN PRN Reason: Constipation Stop: 05/22/25 16:45 Potassium Chloride (Potassium Chloride Crtab 20 Meq Tabcr) 40 meq PO BID [facility] Stop: 05/22/25 20:59 Last Admin: 04/23/25 08:29 Dose: 40 meq (3) Hypothermia Encounter type: initial encounter Qualified Code(s): T68.XXXA - Hypothermia, initial encounter (4) Alcohol intoxication Complication of substance-induced condition: uncomplicated Qualified Code(s): F10.920 - Alcohol use, unspecified with intoxication, uncomplicated
[2025-04-23] MEDS: SODIUM CHLORIDE 0.9% 500 ML IV ONE (11:13)
--- NOTE | 2025-04-23 11:32 | XRay Report ---
Technique: A frontal view of the chest was obtained Comparison is made to the prior examination dated 11/16/2024 Findings: There are no confluent pulmonary infiltrates. The heart size is within normal limits. No pleural effusion or pneumothorax is seen. There is no definite pulmonary nodule. There are old healed left rib fractures Impression: No active disease Electronically signed by Glen Ortega 04-23-2025 11:31 AM
--- NOTE | 2025-04-23 14:54 | Pharmacy Report ---
Pharmacy Glycemic Short Note 2 - Date of Service April 23, 2025 - Glycemic Short BSG Results (Last 24 hours): 04/22/25 04/22/25 04/22/25 15:56 16:16 17:21 Glucose POC Glucose 31 L* 243 H 187 H 04/22/25 04/22/25 04/22/25 19:52 20:12 23:55 Glucose 204 H POC Glucose 223 H 145 H 04/23/25 04/23/25 04/23/25 04:44 05:41 07:33 Glucose 136 H POC Glucose 148 H 130 H 04/23/25 11:08 Glucose POC Glucose 130 H OUTPATIENT ANTIDIABETIC REGIMEN: * Lantus 23 units HS, Novolog SSI ASSESSMENT: 04/23 * Yin only required 1 unit of bolus insulin yesterday (and no basal). Although this is much less than her usual home requirements, her fasting BSG was still 130mg/dL this morning and remained the same at lunch check. * I spoke with the unit educator about this patient and she stated that she is treated as a type one diabetic due to chronic pancreatitis causing insulin deficiency (likely still makes some insulin so not true type 1). Since she came in with such low blood sugar, it was determined that as long as her BSGs remain stable today, no basal insulin will be ordered. Overnight BSG checks have been added in the event that her BSG does start to increase since she is basal deficient. * Will reassess need for basal insulin tomorrow morning. 04/22 * 59 year old admitted s/p unresponsive episode, severe hypoglycemia, alcohol intoxication - blood sugar 31 mg/dL upon arrival to ER. Patient with poor PO intake over the past week. Per notes, patient had been taking long acting insulin despite poor PO intake. Patient reports not taking any insulin today. Patient did receive 2 amps of dextrose this afternoon - recheck BSG 243 mg/dL, now 187 mg/dL. * Instructed RN to hold insulin coverage at dinner time check, as likely still seeing effects of dextrose given. Will reassess and add on novolog to start at HS time with overnight checks. Patient also now starting dextrose IVFs. Could consider adding on low dose basal at HS as long as blood sugars continue to remain stable. r PLAN FOR INPATIENT GLYCEMIC CONTROL: * Hold outpatient diabetes medications * Basal insulin * Lantus - hold--will reassess need 04/24 * Bolus insulin * NovoLog per scale ACHS or Q6hrs while NPO * Goal Range: Low 140 mg/dL - High 180 mg/dL * Correction Factor: 55 mg/dL/unit * Nutritional / Prandial insulin per carb ratio of 1 unit per 20 grams CHO consumed
[2025-04-24 06:13] LABS: Hematocrit (blood only) 40.3 % (37.0-47.0); Hemoglobin 13.3 g/dl (12.0-16.0); Mean Corpuscular Hemoglobin 31.2 pg (25.0-34.0); Mean Corpuscular Volume 94.6 fL (80.0-100.0); Platelet Count 131 K/uL (130-400); RDW Standard Deviation 43.2 fL (36.4-46.3); Red Blood Count 4.26 M/uL (4.20-5.40); White Blood Count 4.22 K/ul (4.8-10.8)
[2025-04-24 06:42] LABS: Anion Gap 6.0 (3-11); Blood Urea Nitrogen 7.0 mg/dl (6-23); Calcium 8.8 mg/dl (8.6-10.3); Carbon Dioxide 28.0 mmol/L (21-32); Chloride 103.0 mmol/L (98-107); Creatinine Clr Calc Pharmacy 74.3 ml/min; Glucose 206.0 mg/dl (70-99(Fasting)); Magnesium 1.8 mg/dl (1.7-2.4); Potassium 4.1 mmol/L (3.5-5.1); Sodium 137.0 mmol/L (136-145)
[2025-04-24 07:48] VITALS: RESP 18; TEMP 98.1
[2025-04-24] MEDS: LANTUS PER UNIT CHARGE SC ONE (08:44)
[2025-04-24 16:08] VITALS: BP 131/87; PULSE 92; O2SAT 97
--- NOTE | 2025-04-24 17:05 | Discharge Summary ---
Date of Service April 24, 2025 Admission HPI Per Admitting Provider Patient is a 59-year-old female with past medical history significant for DM type II with diabetic polyneuropathy, severe asymptomatic right carotid artery stenosis, history of amputation of left leg through tibia and fibula, medical marijuana use, alcohol use disorder and other problems listed below who presented to the ED via EMS after being found unresponsive in a nearby grocery store. History obtained from the patient with supplementation provided by discussion with the ED provider, discussion with the patient's mother and associated chart review. Patient is A&Ox3 to conversation in the ED. Patient seen at bedside with Dr. Blackwell. Hypothermic upon arrival to the ED with recorded body temperature of 34.2C. Hernandez hugger applied in the ED. Patient somewhat of a poor historian however she is able to recall the events of today. Patient states she was shopping at a local [employer] when she suddenly passed out in her wheelchair. Patient remembers being awoken when EMS arrived. EMS reported that the patient smelled of alcohol and had relatively stable vitals however she was initially only responsive to painful stimuli. There was no prehospital BSG reported by EMS. BSG upon arrival to the ED was 31. Patient recalls a poor appetite for at least the past week. Patient is currently on short and long-acting insulin therapy for management of DM type II. Patient was still using her long-acting insulin despite her poor oral intake. She had also been using her short acting insulin via sliding scale protocol. Does not recall checking her BSG this morning; unsure of her baseline BSG readings at home. Patient with EtOH level of 217.1 upon arrival to the ED. Patient reports she consumed "cans of beer" last evening but she is unsure of the exact amount. Per patient's mother, she had reportedly been sober for the past 3 months leading up to this and had been "doing well." Patient currently unemployed and without health insurance. Lives by herself with a cat. Patient does admit to medical marijuana use; however, she denies any additional recreational substance use. Patient is wheelchair-bound at baseline given history of left lower leg amputati on. Patient states she is compliant with her home medications however her mother mentions that she has previously been unable to afford her prescriptions due to lack of health insurance. No reported history of alcohol withdrawal seizures. Patient with bouts of N/V in the ED which she attributes to being hungry. Patient denies any fevers, cough, SOB, chest pain, abdominal pain or urinary/bowel habit issues. No acute trauma or injury reported. Head CT completed in the ED with no acute findings. Cervical spine CT with no evidence of fracture/subluxation. Admission Exam Per Admitting Provider General Appearance:Thin, diaphoretic, ill appearing, no apparent distress Head: normocephalic, Atraumatic Eyes: normal inspection, EOMI Neck: supple, Trachea midline Respiratory/Chest: Normal breath sounds, CTA, No accessory muscle use Cardiovascular: S1, S2, No murmur,+Tachycardia Abdomen/GI:Soft, Non tender, Bowel sounds present Extremities/Musculoskeletal:normal inspection, no edema, L BKA Neurologic/Psych:AAOX3, grossly no focal neurological deficits Skin: normal color, warm Principal Diagnosis Unresponsive episode Hypoglycemic episode Alcohol intoxication Elevated lactic acid level Discharge Exam General Appearance: Thin adult F in NAD Head: normocephalic, Atraumatic Eyes: normal inspection, EOMI Neck: supple Respiratory/Chest: Normal breath sounds, CTA, No accessory muscle use Cardiovascular: S1, S2, No murmur Abdomen/GI: Soft, Non tender, Bowel sounds present Extremities/Musculoskeletal: normal inspection, no edema, L BKA, moves extremities Neurologic/Psych: AAOX3, speech fluent, no facial asymmetry, answers appropriately, moves extremities Skin: normal color, warm, dry Discharge Data Allergies Allergy/AdvReac Type Severity Reaction Status Date / Time haloperidol [From Haldol] AdvReac Unknown ON Verified 04/22/25 14:51 [facility] lorazepam [From Ativan] AdvReac Unknown ON Verified 04/22/25 14:51 [facility] Consultations 04/22/25 14:47 ED Decision to Admit Stat Ordered Studies 04/22/25 13:03 CT cervical spine wo con Stat IMPRESSION: 1. There is no evidence of cervical spine fracture or subluxation. 2. Osteopenia and spondylotic change as above. CT head/brain wo con Stat IMPRESSION: There is no hemorrhage, mass effect, or evidence of acute territorial ischemia by CT criteria. 04/22/25 20:19 Carotid duplex [US carotid doppler BI] Routine IMPRESSION: 1. Estimated 50-69% stenosis in the proximal right ICA by sonographic criteria. This technically represents a moderate stenosis but is borderline for severe stenosis based on velocity criteria. 2. Estimated less than 50% stenosis in the left ICA by sonographic criteria. Hospital Course (1) Unresponsive episode: (2) Hypoglycemia: (3) Hypothermia: (4) Alcohol intoxication: (5) History of alcohol abuse: (6) Hypokalemia: Plan Patient is a 59-year-old female with past medical history significant for DM type II with diabetic polyneuropathy, severe asymptomatic right carotid artery stenosis, history of amputation of left leg through tibia and fibula, medical marijuana use, alcohol use disorder and other problems listed below who presented to the ED via EMS after being found unresponsive in a nearby grocery store. #Unresponsive episode #Severe hypoglycemia --> BSG 31 upon arrival to ED, no BSG done in the field via EMS; pt w/ recent poor po intake Head CT: grossly unremarkable/no hemorrhage, mass effect or evidence of acute territorial ischemia Cervical spine CT: no evidence of cervical spine fracture or subluxation, ost eopenia/spondylotic changes] Pt A&Ox3 in ED but somewhat of a poor historian -Pt is, however, able to recall all events of the day CBC unremarkable, EtOH level as per below UA - negative, urine tox - negative Check VBG, ammonia level 37, lactate 5.3 >>1.8 BSG now improved 04/23 Pt is awake, alert, answers appropriately, reports feeling well and denies any complaints #Hypothermia --> temp 34.2 C upon arrival Possibly related to acute hypoglycemia --> however, check blood cxs -No clear source of infection at this time, procal negative blood cultx NGTD Monitor body temp w/ Hernandez hugger application (will remove when able) 04/23 Pt's temp. is now normal Elevated lactic acid Lactate came back at 5.3 --> empiric IV Zosyn started; IVF onboard, follow repeat lactate - repeat lactate 4.3 on 04/22/2025 evening This AM lactate still elevated at 3.7 (but down from previous), repeat 1.8 #Alcohol intoxication --> EtOH level 217 upon arrival #H/o alcohol abuse Consumed "many cans" of beer last evening; ? wine consumption as well per d/w pt's mother Prior to last evening, pt reportedly sober x 2-3mo per pt's mother No prior h/o alc w/d seizures per pt's mother IV thiamine/folic acid daily Librium taper Monitor AWSS score, closely monitor No signs of alcohol withdrawal #Hypokalemia K+ 2.8 upon arrival Likely related to poor po intake replace and monitor #DMII Hold home regimen SSI protocol for now -BSG goal 140-180 for now given presenting severe hypoglycemia, appreciate glycemic pharm assistance Hgb A1c 7.6% in Nov 2024 --> current Hgb A1c 7.7% Follow BSG checks DM educator consult #Severe asymptomatic RCA stenosis Dx'd last admission in Nov 2024 --> no urgent intervention taken as pt asymptomatic Neck CTA, Nov 2024: high-grade 90% stenosis in the proximal right internal carotid artery, dense calcified plaque present at this level Will need outpt f/u regarding this --> per prior vas surg documentation: "..would consider pt for elective surgical intervention (CEA vs TCAR) in the near future" Total Time Total Time Spent Total Time Spent (In Minutes): 40 Discharge Plan Discharge Items Patient Disposition: Home - Self-Care Reason For Visit: UNRESPONSIVE EPISODE Discharge Diagnosis: Unresponsive episode Hypoglycemic episode Alcohol intoxication Elevated lactic acid level Condition on Discharge: Fair Activity: Per Instructions section Non-emergency contact: Primary Care Provider Call non-emergency contact if: you have any medication questions and your symptoms worsen Follow-up/Referrals: Ingrid Mejias PA-C [Primary Care Provider] - Diet: Carb Consistent or DM2 Addtl Attending Provider Instructions: Follow up with your primary care provider within 1 week. It is recommended that you avoid any excessive alcohol consumption. You can try to use melatonin to help you with sleep, you can obtain this over the counter. Also recommend to discuss any problems sleeping with your primary care doctor. Pending Studies at Discharge: Yes Studies:: final blood cultx results Stand-Alone Forms: [employer], Smoking Cessation Medications and DC Order Prescriptions: Continued insulin aspart U-100 [Novolog FlexPen U-100 Insulin] 100 unit/mL (3 mL) insulin pen See Rx Instructions .ROUTE .COMPLEX MDD 50 units Qty: 45 3RF Rx Instructions: Inject per sliding scale based on blood sugars; prior to meals Centrum Silver 0.4 mg-300 mcg- 250 mcg tablet 1 tab PO DAILY cyanocobalamin (vitamin B-12) [Vitamin B-12] 1,000 mcg tablet 1,000 mcg PO DAILY folic acid 1 mg Tablet 1 mg PO QAM fluticasone propionate 50 mcg/actuation [place],Suspension 1 spray INTRANASAL QAM Rx Instructions: administer into each nostril gabapentin 300 mg capsule See Rx Instructions .ROUTE .COMPLEX Rx Instructions: 1 cap in AM, 1 cap at 1200, 2 caps at HS (DME) FreeStyle Janny 2 Sensor Kit MISCELLANEOUS triamcinolone acetonide 0.1 % Cream 1 applic TOPICAL DAILY PRN (Reason: psoriasis) magnesium oxide 500 mg magnesium Tablet 500 mg PO QAM B-complex with vitamin C Capsule 1 cap PO DAILY duloxetine 30 mg capsule,delayed release(DR/EC) 30 mg PO QAM melatonin 5 mg Tablet 5 mg PO HS aspirin 81 mg tablet,delayed release (DR/EC) 81 mg PO DAILY PRN (Reason: PRN PER PT) insulin glargine [Lantus Solostar U-100 Insulin] 100 unit/mL (3 mL) insulin pen 23 unit SUBCUT HS Discharge Orders: Discharge Order (Routine); Ordered 04/24/25 Ordered By: Stephen Lund Admission Data Admit Date/Time: 04/22/25 15:09 Attending Provider: Stephen Lund Admit Provider: Gilson Blackwell Primary Care Provider: Ingrid Mejias Other Providers: Gilson Blackwell Other Interventions: Discharge Summary Assessment (RN) Last Done: 04/24/25 17:14
== END 2025-04-24 18:04 | disposition home or self-care (01) | DRG 897 ==
LOC: ED 12:38 → 2S 15:09 → SUATTDRO 15:09 → 2S 16:11